=== PATIENT | female | born 1940 | race Caucasian/White ===

== ENCOUNTER 2016-12-23 21:21 | Emergency (ER) | payer MEDICARE, OTHER ==
[~2016-12-23] VITALS: Ht 154.9 cm; Wt 43.1 kg
[~2016-12-23 21:21] MED LIST: ASCO500C14 PO; ASP325TEC PO; CETI10CA PO; DILT360C29 PO; DULO30CA PO; ECHI400C3 PO; FAMO-119 PO; FAMO20TA73 PO; HYOS0.1217 PO; MELA1TAB11 PO; MULT-963 PO; OMEP20TA2 PO; PREG50C PO; SIMVASTATIN; TRAM1TAB7 PO; VENL37.513 PO; VITA1CAP59 PO
--- OUTSIDE RECORDS SUMMARY | 2016-12-23 21:26 | XMS REPORT | Continuity of Care Document ---
Author Author [facility] Organization [facility] Address Unknown Phone Unavailable Care Team Providers Care Gastroenterology Professor Name Role Phone Sukh Moreira PCP [phone] Source Comments Some departments are not documenting in the electronic medical record. If you do not see the information that you expected, contact Release of Information in the Health Information Management department at [phone] for further assistance in locating additional records.[facility] Active Allergies and Adverse Reactions Allergen Noted Date Severity Reactions Comments Pcn 03/11/2013 RASH Sulfa (Sulfonamide 03/11/2013 UNKNOWN Antibiotics) Temazepam 01/01/2016 High SEE COMMENTS pt stated Crazy mood and fitful sleep Valerian 01/01/2016 Low SEE COMMENTS Insomnia Current Medications Prescription Sig. Disp. Refills Start End Date Status Date CALCIUM CARBONATE/VITAMIN Take by mouth. Active D3 (VITAMIN D-3 PO) GLUTATHIONE PO Take by mouth daily. Active nystatin 500,000 unit Take 500,000 Units by Active tablet mouth. 4 tabs 4 times daily MULTIVITAMIN PO Take 1 Tab by mouth Active daily. 5-HYDROXYTRYPTOPHAN Take 2 Tabs by mouth Active (5-HTP PO) daily. PHYTONADIONE (VITAMIN K Take by mouth daily. Active PO) TURMERIC ROOT EXTRACT PO Take 2 Tabs by mouth Active daily. hydroxychloroquine Take 200 mg by mouth Active (PLAQUENIL) 200 mg tablet twice daily. FLUCONAZOLE (BULK) MISC Use 1 Tab as directed Active daily. progesterone, Take 200 mg by mouth Active micronized(+) daily. (PROMETRIUM) 100 mg capsule other medication Take 1 Dose by mouth Active daily. Lumbrokinase CYCLOBENZAPRINE HCL Take by mouth. Active (FLEXERIL PO) ofloxacin(+) (FLOXIN) 0.3 Place 1 Drop into or Active % ophthalmic solution around eye(s) four times daily. lisinopril (PRINIVIL; Take 5 mg by mouth daily. Active ZESTRIL) 5 mg tablet carvedilol (COREG) 3.125 Take 3.125 mg by mouth Active mg tablet twice daily with meals. Active Problems Problem Noted Date Penicillin allergy 03/24/2016 Overview: Skin testing 03/18/16 showed sensitization to amoxicillin with borderline to ampicillin. We did not proceed with a graded challenge as it appears she may still be sensitized to penicillin. - Continue to avoid penicillin products - We can desensitize her to penicillin if needed and we could do this in our office. She would need to stop Coreg and Lisinopril for 48 hours prior to desensitization along with antihistamines for 7 days. Allergy to sulfa antimicrobials 03/24/2016 Overview: She had an unknown reaction to a sulfa antibiotic in the 1969's. She doesn't recall any aspect of the reaction but there were no bullous lesions, desquamation or mucosal surface involvement. She has avoided sulfa antibiotics since that time. - We do not have skin testing for sulfa antibiotics that is validated. She would like to know if she is still allergic to sulfa. We offered her an oral graded challenge which can be arranged at her discretion. She would need to stop Coreg and Lisinopril for 48 hours prior to challenge and antihistamines 7 days prior. Drug allergy 01/06/2016 Overview: PCN - rash developed in approximately 2007, patient was unclear about any other details. Sulfa - patient states she does not recall having a reaction. - We discussed an offered skin testing to PCN today but she could not stay. She will let us know when she is ready to do this. - We may also need to consider a sulfa challenge in the future to rule that out as an allergy. Food intolerance 01/06/2016 Overview: Avoids tomatoes, potatoes , onions, and green peppers due to GI upset. Eggplant may have caused throat swelling on one occasion, now avoiding this as well. - Continue avoidance. We can do skin testing for eggplant at any time to see if she is truly allergic. History of medical problems 09/18/2015 Overview: Her PMHx briefly includes: Nonsustained SVT documented by Reveal LinQ monitor, PAFIB noted 02/2014 during Exercise Stress Testing, CAD s/p Prior PCI/Stent in 1994, per Dr. 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 Hyde with Mild Bilateral Carotid Stenosis by Duplex 02/2014, Hx of Liver Hemangioma S/P Removal during Exploratory LAP, and Fibromyalgia--although recently diagnosed with Lyme's Disease which may have been chronic. She has a [id number] score of 4--age, female, HTN, CAD. 02/2014 During Exercise Stress Echocardiogram Ms. Perera had some self-limited AFIB. Dr. Hyde placed her on Xarelto and Diltiazem and ultimately implanted a Reveal LinQ monitor to better capture any recurrent aSxic AFIB. Apparently she developed severe headaches and as a result of her evaluation both her Xarelto and Diltiazem had been held with no improvement. She apparently had tolerated Diltiazem without significant issue when she was on it just a few months ago. Her Reveal LinQ monitor in late 12/2014 and early 01/2015 captured some brief non-sustained tachycardia prompting EP Consultation. Of note: She recently has been diagnosed with Lyme's Disease. She states her doctor told her that this may have been a chronic infection going on for years. She has generalized fatigue and some myalgias. In fact, she had been diagnosed with Fibromyalgia in the past. 01/30/15 At her Initial EP Conusltation, she stated that she had not had Sxs with her auto-activated tachy events. She also stated that when she had activated the device in the past it had been for irregular heart beats but NOT tachypalpitations. In fact she stated she had never felt Sxs of tachypalpitations. Her device documented SVT. I anticipated she either has AVNRT or ATACH. I offered EPS and RFA, but she preferred medical Tx instead. We initiated her on Diltiazem CD 120 mg daily. I instructed them, if her HR drops below 50 bpm or if she had significant Sxs with HRs in the 50s bpm, to stop the Diltiazem and contact our office. She stated she occasionally had Sxs of LHedness that lasted for seconds. One episode occurred while standing at the sink. Her daughter stated that these episodes began occuring recently and that her mother had been on antibiotics recently for Lyme's Disease. Although infrequent and brief, I asked her to activate her LinQ monitor with Sxs of LHedness. 02/12/15 2/to HRs <50 bpm, Diltiazem was discontinued. Ms. Perera scheduled OV to discuss options for rhythm control to include Tikosyn initiation or PPM implantation. Paroxysmal a-fib (HCC) 01/31/2015 Overview: 03/29/14: LINQ implant 03/22/14: Left Heart Cath, no intervention. 02/22/14: Exercise stress test: No ischemia or artifact. EF 48. Afib w RVR of 163, spontaneous resolved. 12/25/13: 2D echo: Normal LV, EF 50. Mild MR, TR. 03/27/13: Exercise stress test: No ischemia or artifact. EF 50. 04/08/11: Carotid duplex: Mild bilateral nonobstructive disease <40%. 06/04/05: Left heart cath, no intervention. 03/01/05: 2D echo: Normal LV, EF 70%. 05/31/02. Left heart cath, no intervention. 08/06/95: Left heart cath, stent x2 CAD (coronary artery disease) 01/31/2015 HTN (hypertension) 01/31/2015 Hyperlipidemia 01/31/2015 Acute blood loss anemia 04/19/2013 Hemangioma of liver 12/12/1988 Overview: Ms. Perera is a 72 year old woman who has known of having liver hemangiomas at least since 1988. She complained of indigestion, was studied, and found to have multiple liver hemangiomas (I do not have reports of those studies). She was referred to physicians in [place] in November, for their thoughts about management. Her case and her films were reviewed at the [facility], also for thoughts about management. The lesions were felt to be benign hemangiomas and, since she was asymptomatic, no therapy was recommended. A CT of the abdomen, done 02/13/1989, and was reported to show 4 areas of low density: a 1.5 cm area in the tip of the left lobe, a 3 cm area in the posterior inferior right lobe, a 5 cm lesion in the jarek hepatis, and a 4 x 6 cm area in the lateral superior right lobe. A CT of the abdomen was done 12/06/1993 and the 4 x 6 cm lesion had grown to 6 x 8 cm; the other lesions had not changed in size. By 02/09/1997, an abdominal ultrasound measured the large lesion in the right upper lobe to be 9 cm in diameter. An ultrasound done on 01/29/2011 revealed that the large lesion had grown from 10 x 12 x 11 cm on 07/21/2008 to 13.1 x 10.8 x 13.3 cm. This past fall, she developed bouts of esophageal spasm/reflux and her surgeon felt that they might be related to the hemangioma. He did an EGD in August, which showed evidence of mild to moderate reflux esophagitis as well as gastritis. She was started on a PPI, with little improvement. She had a normal swallow study on 01/31/2013. She had a normal HIDA scan on 02/10/2013. A CT scan of the abdomen done 02/16/13 shows the hemangioma being 13.5 cm x 9.5 cm x 12 cm. She gets acute onset of pain right behind her xyphoid that goes to her back. The pain may radiate up to her ears. These symptoms may happen during eating, especially dry foods, but she has also experienced them in the middle of sleeping and during cheondoism. These pains are not related to stress. She does get tightness around her waist when she sits for long periods of time. But she has not noticed any problems leaning over or bending down. Over the last ten years, she has been unable to sleep on her right side. She used to have pains monthly but they are now coming weekly. She has had more eructation. I saw her first on the 11 of March and felt that her abdominal pain was probably related to the hemangioma since the pain started when the lesion grew. She and her family thought it over and decided to have surgery in April. On 04/19/13, she underwent an exploratory laparotomy, intraoperative ultrasound, portal lymph node biopsies, resection of a 12 x 14 cm symptomatic hemangioma of the right lobe, resection of three 2 cm lesions, 2 in the left lobe and 1 in the right lobe, and open cholecystectomy. She had an uneventful post-operative stay and was discharged on the 5th post-operative day. L ast Assessment & Plan: Since discharge, she has recovered well. She notes that she can become exhausted the day after doing too much the day before. She is sleeping well, also during the day. She has not had any of the esophageal attacks since surgery. In the week prior to surgery, she had had four attacks. She feels that she is more comfortable moving around and sleeping in different positions than prior. Social History Tobacco Use Types Packs/Day Years Used Date Never Smoker Smokeless Tobacco: Never Used Alcohol Use Drinks/Week oz/Week Comments No Last Filed Vital Signs Vital Sign Reading Time Taken Blood Pressure 94/62 03/18/2016 3:02 PM CDT Pulse 66 03/18/2016 3:02 PM CDT Temperature 37 C (98.6 F) 03/18/2016 8:09 AM CDT Respiratory Rate 18 03/18/2016 8:09 AM CDT Height 1.549 m (5' 0.98") 03/18/2016 3:02 PM CDT Weight 45.677 kg (100 lb 11.2 03/18/2016 3:02 PM CDT oz) Body Mass Index 19.04 03/18/2016 3:02 PM CDT Oxygen Saturation 100% 05/06/2013 11:29 AM CDT Plan of Care Health Maintenance Due Date Last Done Comments Physical (Comprehensive) 1947 Exam Pertussis Vaccine 1951 Tetanus Vaccine 1957 Colorectal Cancer 1990 Screening Shingles Vaccine 2000 Osteoporosis Screening 2005 Prevnar/Pneumovax (#1) 2005 Influenza Vaccine 07/10/2016 Results from Last 3 Months Not on file
[2016-12-23] MEDS ORDERED: THYR90TA12 PO (21:35)
[2016-12-23] MEDS ORDERED: PRED5DRO17 (21:35)
[2016-12-23] MEDS ORDERED: PROG100C6 (21:35)
[2016-12-23] MEDS ORDERED: AMIT10TA6 (21:35)
[2016-12-23] MEDS ORDERED: ASPI-586 PO (21:35)
[2016-12-23] MEDS ORDERED: LISI-556 (21:35)
[2016-12-23] MEDS ORDERED: CARV3.122 (21:35)
--- NOTE | 2016-12-23 21:50 | ED Fall/Injury ---
General Chief Complaint: Trauma-Non Activation Stated Complaint: FALL/SYNCOPE Nursing Triage Note: pt reports fell while at home this evening. pt reports she was walking across the living room and got dizzy and fell to the floor. pt denies loc. pt denies hitting head or neck pain. pt reports lower back pain rated at a 4. Source: patient, family, RN notes reviewed Exam Limitations: no limitations History of Present Illness Time seen by provider: 21:37 Initial Comments As above and below. Had been sitting on couch c/ legs elevated when she got up to walk into the den where her was when she became dizzy/light headed and fell landing on her back. No LOC. Back to normal now. Low back is a little sore. Location Injury Occurred: home residence Occurred: just prior to arrival Severity: mild (LBP) Injuries/Pain Location: back (low) Context: lightheaded Loss of Consciousness: no loss of consciousness Modifying Factors: Improves With Other (back to baseline now) Associated Symptoms (Fall): Dizziness Lightheadedness Allergies and Home Medications Allergies Coded Allergies: Penicillins (Unverified Allergy, Unknown, 05/17/14) Sulfa (Sulfonamide Antibiotics) (Verified Allergy, Unknown, 07/10/08) Home Medications Amitriptyline HCl 10 Mg Tablet #90 (Reported) Aspirin 81 Mg Tablet.dr 81 MG PO DAILY (Reported) Carvedilol 3.125 Mg Tablet #180 (Reported) Lisinopril 5 Mg Tablet #90 (Reported) Multivitamin 1 Each Tablet 1 EACH PO DAILY (Reported) Prednisolone Acetate 5 Ml Drops.susp #10 (Reported) Progesterone,Micronized 100 Mg Capsule #670 (Reported) Thyroid,Pork 90 Mg Tablet #45 45 MG PO DAILY (Reported) Constitutional: see HPI dizziness : No Musculoskeletal: see HPI back pain (mild) All Other Systems Reviewed Negative Unless Noted: Yes (Negative excepted noted.) Past Ejvflep-Bpoggw-Visilc Hx Patient Social History Alcohol Use: Denies Use Recreational Drug Use: No Smoking Status: Never a Smoker Recent Foreign Travel: No Contact w/Someone Who Travel: No Recent Infectious Disease Expo: No Recent Hopitalizations: Yes Immunizations Up To Date Date of Pneumonia Vaccine: May 23, 2009 Surgeries HX Surgeries: Yes (HEMORRHOIDECTOMY,CYST, HEMANGIOMA REMOVED FROM LIVER) Surgeries: Coronary Stent, Eye Surgery Respiratory Hx Respiratory Disorders: No Cardiovascular Hx Cardiac Disorders: Yes (lync monitor/STENTS/A-FIB) Cardiac Disorders: Atrial Fibrillation, Coronary Artery Disease Neurological Hx Neurological Disorders: No Reproductive System Hx Reproductive Disorders: No Genitourinary Hx Genitourinary Disorders: Yes Gastrointestinal Hx Gastrointestinal Disorders: Yes (HEMANGIOMAS ON LIVER) Gastrointestinal Disorders: Gastroesophageal Reflux, Liver Disease/Jaundice, Chronic Constipation Musculoskeletal Hx Musculoskeletal Disorders: Yes (SPONDYOLITIS/FIBROMYALGIA) Musculoskeletal Disorders: Fibromyalgia Endocrine Hx Endocrine Disorders: Yes (DIET CONTROLLED DIABETES) Endocrine Disorders: Diabetes, Non-Insulin dep HEENT HX ENT Disorders: No Cancer Hx Cancer: No Psychosocial Hx Psychiatric Problems: Yes Behavioral Health Disorders: Depression Blood Transfusions Hx Blood Disorders: No Physical Exam Vital Signs Vital Sign - Last 12Hours 12/23/16 21:23 Temp 98.7 Pulse 72 Resp 18 B/P 138/71 Pulse Ox 97 Capillary Refill : Less Than 3 Seconds General Appearance: WD/WN no apparent distress HEENT: PERRL/EOMI normal ENT inspection TMs normal pharynx normal Neck: normal inspection Cardiovascular: regular rate, rhythm Respiratory: normal breath sounds no respiratory distress Gastrointestinal: non tender soft Rectal: deferred Extremities: normal inspection Neurologic/Psychiatric: no motor/sensory deficits alert oriented x 3 Skin: warm/dry Willie Coma Score Best Eye Response: (4) Open Spontaneously Best Verbal Response: (5) Oriented Best Motor Response: (6) Obeys Commands [place] Total: 15 Progress/Results/Core Measures Results/Orders Lab Results Laboratory Tests Test 12/23/16 21:50 12/23/16 22:48 Range/Units Alanine Aminotransferase (ALT/SGPT) 22 0-55 U/L Albumin 3.8 3.2-4.5 G/DL Alkaline Phosphatase 50 40-136 U/L Anion Gap 10 5-14 MMOL/L Aspartate Amino Transf (AST/SGOT) 23 5-34 U/L B-Type Natriuretic Peptide 35.9 <100.0 PG/ML BUN/Creatinine Ratio 26 Basophils # (Auto) 0.0 0.0-0.1 10^3/uL Basophils (%) (Auto) 1 0-10 % Blood Urea Nitrogen 19 H 7-18 MG/DL Calcium Level 9.1 8.5-10.1 MG/DL Carbon Dioxide Level 24 21-32 MMOL/L Chloride Level 105 98-107 MMOL/L Creatinine 0.74 0.60-1.30 MG/DL Eosinophils # (Auto) 0.4 H 0.0-0.3 10^3/uL Eosinophils (%) (Auto) 6 0-10 % Estimat Glomerular Filtration Rate > 60 Glucose Level 96 70-105 MG/DL Hematocrit 37 35-52 % Hemoglobin 12.4 11.5-16.0 G/DL Lymphocytes # (Auto) 1.1 1.0-4.0 X 10^3 Lymphocytes (%) (Auto) 18 12-44 % Magnesium Level 2.2 1.8-2.4 MG/DL Mean Corpuscular Hemoglobin 30 25-34 PG Mean Corpuscular Hemoglobin Concent 33 32-36 G/DL Mean Corpuscular Volume 90 80-99 FL Mean Platelet Volume 10.0 7.4-10.4 FL Monocytes # (Auto) 0.9 0.0-1.0 X 10^3 Monocytes (%) (Auto) 15 H 0-12 % Neutrophils # (Auto) 3.8 1.8-7.8 X 10^3 Neutrophils (%) (Auto) 62 42-75 % Platelet Count 226 130-400 10^3/uL Potassium Level 4.0 3.6-5.0 MMOL/L Red Blood Count 4.14 L 4.35-5.85 10^6/uL Red Cell Distribution Width 14.0 10.0-14.5 % Sodium Level 139 135-145 MMOL/L Thyroid Stimulating Hormone (TSH) 0.80 0.35-4.94 UIU/ML Total Bilirubin 0.3 0.1-1.0 MG/DL Total Protein 6.1 L 6.4-8.2 G/DL Troponin I < 0.30 <0.30 NG/ML White Blood Count 6.2 4.3-11.0 10^3/uL Urine Bacteria FEW H /HPF Urine Bilirubin NEGATIVE NEGATIVE Urine Casts NONE /LPF Urine Clarity CLEAR Urine Color YELLOW Urine Crystals NONE /LPF Urine Culture Indicated NO Urine Glucose (UA) NEGATIVE NEGATIVE Urine Ketones NEGATIVE NEGATIVE Urine Leukocyte Esterase 1+ H NEGATIVE Urine Mucus NEGATIVE /LPF Urine Nitrite NEGATIVE NEGATIVE Urine Protein NEGATIVE NEGATIVE Urine RBC NONE /HPF Urine RBC (Auto) NEGATIVE NEGATIVE Urine Specific [place] 1.010 L 1.016-1.022 Urine Urobilinogen NORMAL NORMAL MG/DL Urine WBC 2-5 /HPF Urine pH 7 5-9 My Orders Orders-SESAR BRIONES DO Ekg Tracing (12/23/16 21:43) BNP (12/23/16 21:43) Cbc With Automated Diff (12/23/16 21:43) Comprehensive Metabolic Panel (12/23/16 21:43) Magnesium (12/23/16 21:43) Troponin I (12/23/16 21:43) Ua Culture If Indicated (12/23/16 21:43) Thyroid Stimulating Hormone (12/23/16 21:46) Orthostatic Vital Signs (12/23/16 21:46) Chest 1 View, Ap/Pa Only (12/23/16 21:47) Vital Signs/I&O Vital Sign - Last 12Hours 12/23/16 12/23/16 12/23/16 12/23/16 21:23 21:46 22:46 23:18 Temp 98.7 98.7 98.7 Pulse 72 72 72 63 74 80 Resp 18 18 16 B/P 138/71 138/71 Pulse Ox 97 97 96 Blood Pressure Mean: 93 Progress Note : Progress Note Patient declined imaging of her low back @ this time. Dr. Moreira did call and check in on the patient. ECG Initial ECG Impression Date: Dec 23, 2016 Initial ECG Impression Time: 21:45 Initial ECG Rate: 73 Initial ECG Rhythm: Normal Sinus Initial ECG Impression: Nonspecific Changes (IVCD; anterior infarct, ? age) Departure Impression Impression: Primary Impression: Postural dizziness Additional Impression: Fall Disposition: 01 HOME, SELF-CARE Condition: Improved Departure-Patient Inst. Decision time for Depature: 23:11 Referrals: BEVERLY MOREIRA MD (PCP/Family) Primary Care Physician Patient Instructions: Vertigo (a Type of Dizziness) (DC) SESAR BRIONES DO Dec 23, 2016 21:50
[2016-12-23 22:03] LABS: BASOPHILS % (AUTO) 1 % (0-10); EOSINOPHILS # (AUTO) 0.4 10^3/uL (0.0-0.3); EOSINOPHILS % (AUTO) 6 % (0-10); LYMPHOCYTES # (AUTO) 1.1 X 10^3 (1.0-4.0); LYMPHOCYTES % (AUTO) 18 % (12-44); MEAN CORPUSCULAR HEMOGLOBIN 30 PG (25-34); MEAN CORPUSCULAR HGB CONC 33 G/DL (32-36); MEAN CORPUSCULAR VOLUME 90 FL (80-99); MONOCYTES # (AUTO) 0.9 X 10^3 (0.0-1.0); MONOCYTES % (AUTO) 15 % (0-12); NEUTROPHILS # (AUTO) 3.8 X 10^3 (1.8-7.8); NEUTROPHILS % (AUTO) 62 % (42-75); PLATELET COUNT 226 10^3/uL (130-400); RED BLOOD COUNT 4.14 10^6/uL (4.35-5.85); WHITE BLOOD COUNT 6.2 10^3/uL (4.3-11.0)
[2016-12-23 22:20] LABS: ALANINE AMINOTRANSFERASE 22 U/L (0-55); ALBUMIN 3.8 G/DL (3.2-4.5); ANION GAP 10 MMOL/L (5-14); ASPARTATE AMINO TRANSFERASE 23 U/L (5-34); BILIRUBIN,TOTAL 0.3 MG/DL (0.1-1.0); BLOOD UREA NITROGEN 19 MG/DL (7-18); BUN/CREATININE RATIO 26; CALCIUM 9.1 MG/DL (8.5-10.1); CARBON DIOXIDE 24 MMOL/L (21-32); CHLORIDE 105 MMOL/L (98-107); CREATININE SERUM 0.74 MG/DL (0.60-1.30); GFR ESTIMATED > 60; GLUCOSE 96 MG/DL (70-105); MAGNESIUM 2.2 MG/DL (1.8-2.4); SODIUM 139 MMOL/L (135-145); TOTAL PROTEIN 6.1 G/DL (6.4-8.2)
[2016-12-23 22:40] LABS: TROPONIN I < 0.30 NG/ML (<0.30)
[2016-12-23 22:58] LABS: BILIRUBIN,URINE NEGATIVE (NEGATIVE); KETONES,URINE NEGATIVE (NEGATIVE); LEUKOCYTE ESTERASE ,URINE 1+ (NEGATIVE); NITRITE,URINE NEGATIVE (NEGATIVE); PH,URINE 7 (5-9); PROTEIN,URINE NEGATIVE (NEGATIVE); UROBILINOGEN,URINE NORMAL (NORMAL)
[2016-12-23 23:18] VITALS: BP 145/78
--- NOTE | 2016-12-24 07:49 | Diagnostic Imaging Report ---
INDICATION: Dizziness with fall. Comparison with 03/19/2016. FINDINGS: The lungs are well aerated and clear. Heart is upper limits of normal. No evidence of pulmonary edema. No hilar adenopathy. No pneumothorax or pleural effusions. 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 IMPRESSION: No acute changes when compared with previous exam. Dictated by: Dictated on workstation # [id number]
== END 2016-12-23 23:18 | disposition home or self-care (01) ==
LOC: EDUNIT# 21:21 → ER 21:22
DX: R42 Dizziness and giddiness (principal); E11.9 Type 2 diabetes mellitus without complications; I48.2 Chronic atrial fibrillation; I25.10 Atherosclerotic heart disease of native coronary artery without angina pectoris; Z79.82 Long term (current) use of aspirin; Z79.899 Other long term (current) drug therapy
CPT/HCPCS: 36415; 71010; 80053; 81000; 83735; 83880; 84443; 84484; 85025; 93005

== ENCOUNTER → 2017-03-27 | Outpatient (CLI) | payer MEDICARE, OTHER ==
[~2017-03-27] MED LIST changes: +AMIT10TA6; +ASPI-586 PO; +CARV3.122; +LISI-556; +PRED5DRO17; +PROG100C6; +THYR90TA12 PO
== END ==
LOC: RT 08:07
PROVIDERS: ATTEND Family Medicine
DX: R40.4 Transient alteration of awareness (principal)
CPT/HCPCS: 95819

== ENCOUNTER 2017-10-14 11:51 | Day surgery (SDC) | payer MEDICARE, OTHER ==
[2017-10-14] VITALS (12 sets, daily range): BP systolic 134–170; BP diastolic 76–115
[~2017-10-14] VITALS: Ht 154.9 cm; Wt 47.6 kg
[~2017-10-14 11:51] MED LIST changes: -AMIT10TA6; +AMIT10TA6 PO; -CARV3.122; +CARV3.122 PO; -PROG100C6; +PROG100C6 PO
[2017-10-14] MEDS ORDERED: LIDOCAINE 1% INJ 50 ML (XYLOCAINE) VIAL ONE (12:01)
[2017-10-14] MEDS ORDERED: HEParin (CATH LAB) 2,000 ML IV ONE (12:01)
[2017-10-14] MEDS ORDERED: NS IV 1000 ML 1,000 ML ONE (12:01)
--- OUTSIDE RECORDS SUMMARY | 2017-10-14 12:04 | XMS REPORT | Clinical Summary ---
Author Author [facility] Organization [facility] Address Unknown Phone Unavailable Care Team Providers Care Mangle Catcher Name Role Phone PCP Unavailable Source Comments Some departments are not documenting in the electronic medical record. If you do not see the information that you expected, contact Release of Information in the Health Information Management department at [phone] for further assistance in locating additional records.[facility] Allergies Active Allergy Reactions Severity Noted Date Comments Temazepam SEE COMMENTS High 01/01/2016 pt stated Crazy mood and fitful sleep Penicillins RASH 03/11/2013 Sulfa (Sulfonamide UNKNOWN 03/11/2013 Antibiotics) Valerian SEE COMMENTS Low 01/01/2016 Insomnia Current Medications Prescription Sig. Disp. Refills [...] mouth daily. Active PO) TURMERIC ROOT EXTRACT Take 2 Tabs by mouth Active POIndications: PVCs daily. (premature ventricular contractions), Palpitations, Paroxysmal a-fib (HCC), Coronary artery disease involving [place] coronary artery of [place] heart without angina pectoris hydroxychloroquine Take 200 mg by mouth Active (PLAQUENIL) 200 mg twice daily. tabletIndications: PVCs (premature ventricular contractions), Palpitations, Paroxysmal a-fib (HCC), Coronary artery disease involving [place] coronary artery of [place] heart without angina pectoris FLUCONAZOLE (BULK) Use 1 Tab as directed Active MISCIndications: PVCs daily. (premature ventricular contractions), Palpitations, Paroxysmal a-fib (HCC), Coronary artery disease involving [place] coronary artery of [place] heart without angina pectoris progesterone, Take 200 mg by mouth Active micronized(+) daily. (PROMETRIUM) 100 mg capsuleIndications: PVCs (premature ventricular contractions), Palpitations, Paroxysmal a-fib (HCC), Coronary artery disease involving [place] coronary artery of [place] heart without angina pectoris other Take 1 Dose by mouth Active medicationIndications: daily. Lumbrokinase PVCs (premature ventricular contractions), Palpitations, Paroxysmal a-fib (HCC), Coronary artery disease involving [place] coronary artery of [place] heart without angina pectoris CYCLOBENZAPRINE HCL Take by mouth. Active (FLEXERIL [...] reaction to a sulfa antibiotic in the 1970's. She doesn't recall any aspect of the [...] may have been chronic. She has a [id number] score of 4--age, female, HTN, CAD. 02/2014 [...] studies). She was referred to physicians in [place] in November, for their thoughts about management. Her case and her films were reviewed at the [facility], also for thoughts about management. The lesions [...] in the middle of sleeping and during holiness. These pains are not related to stress. [...] and sleeping in different positions than prior. Family History Medical History Relation Name Comments Cancer Brother Coronary Artery Disease Brother Kidney Disease Brother Coronary Artery Disease Father Diabetes Father Stroke Father Coronary Artery Disease Mother Diabetes Mother Relation Name Status Comments Brother Alive Heart disease Brother Appendiceal CA to lungs Brother Father OR (Age 70) Mother Complications of DM (Age 82) Sister Alive Social History Tobacco Use Types Packs/Day Years Used Date Never Smoker Smokeless Tobacco: Never Used Alcohol Use Drinks/Week oz/Week Comments No Sex Assigned at Date Recorded Not on file Last Filed Vital Signs Vital Sign Reading Time Taken Blood Pressure 94/62 03/18/2016 3:02 PM CDT Pulse 66 03/18/2016 3:02 PM CDT Temperature 37 C (98.6 F) 03/18/2016 8:09 AM CDT Respiratory Rate 18 03/18/2016 8:09 AM CDT Oxygen Saturation 100% 05/06/2013 11:29 AM CDT Inhaled Oxygen - - Concentration Weight 45.7 kg (100 lb 11.2 oz) 03/18/2016 3:02 PM CDT Height 154.9 cm (5' 0.98") 03/18/2016 3:02 PM CDT Body Mass Index 19.04 03/18/2016 3:02 PM CDT Plan of Treatment Health Maintenance Due Date Last Done Comments PHYSICAL (COMPREHENSIVE) 1947 EXAM PERTUSSIS VACCINE 1951 TETANUS VACCINE 1957 SHINGLES VACCINE 2000 OSTEOPOROSIS SCREENING 2005 PREVNAR/PNEUMOVAX (#1) 2005 INFLUENZA VACCINE 06/09/2017 Results Not on filefrom Last 3 Months
[2017-10-14] MEDS ORDERED: NS IV 1000 ML 1,000 ML IV SCH ×2 (12:15→14:07)
[2017-10-14] MEDS ORDERED: INFLUENZA TRIvalent 2017-2018 0.5 ML/45 MCG SYR IM ONE (12:30)
[2017-10-14 12:31] LABS: BILIRUBIN,URINE NEGATIVE (NEGATIVE); KETONES,URINE NEGATIVE (NEGATIVE); LEUKOCYTE ESTERASE ,URINE NEGATIVE (NEGATIVE); MEAN PLATELET VOLUME 10.1 FL (7.4-10.4); NITRITE,URINE NEGATIVE (NEGATIVE); PH,URINE 8 (5-9); PROTEIN,URINE NEGATIVE (NEGATIVE); RED BLOOD COUNT 4.53 10^6/uL (4.35-5.85); RED CELL DISTRIBUTION WIDTH 13.7 % (10.0-14.5); UROBILINOGEN,URINE NORMAL (NORMAL); WHITE BLOOD COUNT 5.4 10^3/uL (4.3-11.0)
[2017-10-14 12:39] LABS: SQUAMOUS EPITHELIAL CELL,UR RARE /HPF; WBC,URINE RARE /HPF
[2017-10-14 12:41] LABS: INR 0.9 (0.8-1.4); PROTHROMBIN TIME PATIENT 12.1 SEC (12.2-14.7)
[2017-10-14] MEDS ORDERED: fentaNYL INJECTION 100 MCG/2 ML AMP ONE (12:41)
[2017-10-14] MEDS ORDERED: MIDAZOLAM 2 MG/2 ML (VERSED) VIAL ONE (12:41)
[2017-10-14] MEDS ORDERED: THYR90TA PO (12:42)
[2017-10-14] MEDS ORDERED: ASPI325T32 PO (12:42)
[2017-10-14] MEDS ORDERED: LEVO1CAP8 PO (12:42)
[2017-10-14] MEDS ORDERED: BUTA1TAB9 PO (12:42)
[2017-10-14] MEDS ORDERED: OFLO5DRO3 OU (12:43)
--- NOTE | 2017-10-14 12:43 | Diagnostic Imaging Report ---
EXAMINATION: Portable upright radiograph of the chest. INDICATION: Chest pain. FINDINGS: The lungs demonstrate no focal infiltrate. Benign-appearing calcifications projecting over the right lung and breast area are seen. The heart size is normal. No effusion or pneumothorax. The mediastinum and alexsandra appear unremarkable. A alarm security or surveillance monitor electronic device projecting over the left hemithorax is seen. Surgical clips projecting over the lower right side of the thorax are noted. IMPRESSION: No acute process. Dictated by: Dictated on workstation # [id number]
[2017-10-14 12:49] LABS: ALANINE AMINOTRANSFERASE 17 U/L (0-55); ALBUMIN 4.2 GM/DL (3.2-4.5); ANION GAP 11 MMOL/L (5-14); ASPARTATE AMINO TRANSFERASE 21 U/L (5-34); BILIRUBIN,TOTAL 0.5 MG/DL (0.1-1.0); BLOOD UREA NITROGEN 13 MG/DL (7-18); BUN/CREATININE RATIO 18; CALCIUM 9.2 MG/DL (8.5-10.1); CARBON DIOXIDE 26 MMOL/L (21-32); CHLORIDE 106 MMOL/L (98-107); CHOLESTEROL 241 MG/DL (< 200); CREATININE SERUM 0.74 MG/DL (0.60-1.30); DIRECT LDL 136 MG/DL (1-129); GFR ESTIMATED > 60; GLUCOSE 86 MG/DL (70-105); POTASSIUM 3.7 MMOL/L (3.6-5.0); SODIUM 143 MMOL/L (135-145); TOTAL PROTEIN 7.3 GM/DL (6.4-8.2); TRIGLYCERIDES 91 MG/DL (<150); VLDL CHOLESTEROL 18 MG/DL (5-40)
[2017-10-14] MEDS ORDERED: HEParin 1000 UNIT/ML (10ML VIAL) FOR BOLUS ONE (13:27)
[2017-10-14] MEDS ORDERED: VERAPAMIL 5 MG/2 ML (CALAN) VIAL IV ONE (13:27)
[2017-10-14] MEDS ORDERED: NITROGLYCERIN DRIP 25 MG/D5W 250 ML IV ONE (13:27)
[2017-10-14] MEDS ORDERED: ATOR10TA PO (14:09)
--- NOTE | 2017-10-14 14:10 | Discharge Inst-Post CATH ---
Discharge Inst-CATH Post Cardiac Cath D/C Inst Follow Up/Plan Appointment with Dr. Hyde's office in 2-4 weeks CARDIAC CATH DISCHARGE INSTRUCTIONS *Hold Metformin for 48 hours post heart cath. ACTIVITY * Go Home directly and rest. * Limit activity of the leg (or wrist if it was used) for 7 days including aerobics, swimming, jogging, bicycling, etc. * Restrict stair-climbing for 7 days if possible, if not, climb up with your non -cath leg, then bring together on the same step. * Avoid lifting, pushing, pulling or excessive movement of the affected extremity for 7 days. * Customary sexual activity may be resumed after 2 days-use caution not to use a position that strains or causes pain to the affected extremity. * No driving for 24 hours. * NO SMOKING. * Avoid straining for bowel movements for 7 days. * Gentle walking on level ground is allowed. * Returning to work will depend on the type of procedure and the results. Your doctor will discuss this with you. CALL YOUR DOCTOR FOR ANY OF THE FOLLOWING: *If bleeding from the puncture site occurs- Apply gentle pressure to site with clean cloth and call your doctor or EMS. * If a knot or lump forms under the skin, increases in size, or causes pain. * If bruising appears to be worsening or moving further down your leg instead of disappearing. * Temperature above 101 F. CARE OF YOUR GROIN INCISION; * Bruising or purple discoloration of the skin near the puncture site is common. * You may shower only, no bathtub bathing for 5 days. Be careful to avoid slipping as your leg may feel stiff. * If a closure device was used on your femoral artery, please see the attached guide regarding care of the device and your leg. * REMOVE the dressing from your groin the next day after your procedure in the shower. CARE OF YOUR WRIST INCISION; * Bruising or purple discoloration of the skin near the puncture site is common. * You may shower. * DO NOT submerge wrist. * Remove dressing in 24 hours. ADAL HYDE MD Oct 14, 2017 14:10
--- NOTE | 2017-10-14 15:04 | Cardiac Cath Report ---
Cardiac Cath Report Physician (s)/Pipe Stem Sawyer (s) Physician ADAL ANDUJAR MD Pre-Procedure Diagnosis Pre-Procedure Diagnosis: coronary artery disease Post-Procedure Note Procedure Start Date: Oct 14, 2017 Name of Procedure: Left heart catheterization, left ventriculogram, [address]189 Findings/Procedure Note PROCEDURE NOTE: After explaining the procedure to the patient, all pros and cons were explained, all questions were answered. The patient signed the consent and then she was placed on the cardiac catheterization laboratory. The patient was placed on the cardiac catheterization laboratory. Wrist was prepped SL fashion local anesthesia was used. Sheath placed in the radial artery. Nakita catheter was used to access the right and left coronary system, advanced to the left ventricular cavity Left ventriculogram was done At the end of the procedure the sheath was removed. Closure device was used FINDINGS: Hemodynamics LV 127/8 end-diastolic pressure of 8 Aorta 133/72 mean of 98 ANATOMY: Left Main is free of obstructive disease Left Anterior Descending has mild disease nonobstructive disease Left Circumflex has a patent stent proximally with mild disease distally nonobstructive disease Ramus intermedius has moderate disease at its ostium, nonobstructive disease Right Coronory Artery is tortuous artery with mild diseaseobstructive disease LV Gram is normal in size with normal contractility, estimated ejection fraction 60 percent CONCLUSION: 1. Tortuous right coronary artery with mild disease nonobstructive disease 2. Patent stent in the proximal circumflex artery with mild disease distally nonobstructive disease 3. Mild to moderate disease at the ostium of the ramus intermedius otherwise nonobstructive disease 4. Normal left ventricular size and systolic function estimated ejection fraction 60 percent DISCUSSION AND RECOMMENDATION: Continue with risk factors modification, no intervention is recommended Anesthesia Type: Conscious Sedation Estimated blood loss (mL): 10 ml Contrast Amount: 50 ML Total Radiation Dose: 91 mGy Post-Procedure Diagnosis Post-operative diagnosis: Chest pain nonspecific etiology Coronary artery disease Hyperlipidemia Hypertension ADAL ANDUJAR MD Oct 14, 2017 15:04
== END 2017-10-14 18:40 | disposition home or self-care (01) ==
LOC: CATH 11:51 → ICU 14:20 → CATH 18:40
PROVIDERS: ATTEND Internal Medicine Cardiovascular Disease
DX: I25.10 Atherosclerotic heart disease of native coronary artery without angina pectoris (principal); I11.0 Hypertensive heart disease with heart failure; I50.22 Chronic systolic (congestive) heart failure; I44.7 Left bundle-branch block, unspecified; E78.5 Hyperlipidemia, unspecified; I48.0 Paroxysmal atrial fibrillation; I34.1 Nonrheumatic mitral (valve) prolapse; M79.7 Fibromyalgia; Z79.01 Long term (current) use of anticoagulants; Z79.82 Long term (current) use of aspirin; Z79.899 Other long term (current) drug therapy; Z95.5 Presence of coronary angioplasty implant and graft
CPT/HCPCS: 36415; 71010; 80053; 80061; 81000; 85027; 85610; 85730; 87081; 93458

== ENCOUNTER 2018-06-22 10:04 | Outpatient (CLI) | payer MEDICARE, OTHER ==
[~2018-06-22] VITALS: Ht 154.9 cm; Wt 47.6 kg
[~2018-06-22 10:04] MED LIST changes: +ASPI325T32 PO; +ATOR10TA PO; +BUTA1TAB9 PO; +LEVO1CAP8 PO; +OFLO5DRO3 OU; +THYR90TA PO
[2018-06-22] MEDS ORDERED: ASPI-999 PO (10:34)
[2018-06-22] MEDS ORDERED: THYR60TA2 PO (10:34)
[2018-06-23] MEDS ORDERED: PANT40TA2 PO (14:03)
== END 2018-06-22 10:38 | disposition home or self-care (01) ==
LOC: PREOP 10:04
PROVIDERS: ATTEND Surgery
DX: Z01.818 Encounter for other preprocedural examination (principal)

== ENCOUNTER 2018-06-23 10:46 | Day surgery (SDC) | payer MEDICARE, OTHER ==
[~2018-06-23] VITALS: Ht 154.9 cm; Wt 47.6 kg
[~2018-06-23 10:46] MED LIST changes: +ASPI-999 PO; +THYR60TA2 PO
[2018-06-23] MEDS ORDERED: NS IV 500 ML 500 ML IV PRN (10:54)
[2018-06-23 10:55] VITALS: BP 142/86
[2018-06-23] MEDS ORDERED: NS IV 500 ML 500 ML ONE (10:58)
[2018-06-23] MEDS ORDERED: LIDOCAINE JELLY 2% (XYLOCAINE) 5 ML TUBE MM PRN (11:00)
[2018-06-23] MEDS ORDERED: HURRICAINE EXT TUBE (BENZOCAINE) XX PRN (11:00)
--- OUTSIDE RECORDS SUMMARY | 2018-06-23 11:05 | XMS REPORT | Clinical Summary ---
Author Author [facility] Organization [facility] Address Unknown Phone Unavailable Care Team Providers Care Vender Name Role Phone Dayton Guerrero MD Unavailable Mychart, Generic Provider Unavailable Unavailable Ember Kerr DO Unavailable Kailee Moreira MD PCP Source Comments Some departments are not documenting in the electronic medical record. If you do not see the information that you expected, contact Release of Information in the Health Information Management department at [phone] for further assistance in locating additional records.[facility] Allergies Active Allergy Reactions Severity Noted Date Comments Penicillins RASH 03/11/2013 Sulfa (Sulfonamide UNKNOWN 03/11/2013 Antibiotics) Temazepam SEE COMMENTS High 01/01/2016 pt stated Crazy mood and fitful sleep Valerian SEE COMMENTS Low 01/01/2016 Insomnia Current [...] PVCs daily. (premature ventricular contractions), Palpitations, Paroxysmal A-fib (HCC), Coronary artery disease involving enterprise coronary artery of enterprise heart without angina pectoris hydroxychloroquine Take 200 mg by mouth Active (PLAQUENIL) 200 mg twice daily. tabletIndications: PVCs (premature ventricular contractions), Palpitations, Paroxysmal A-fib (HCC), Coronary artery disease involving enterprise coronary artery of enterprise heart without angina pectoris FLUCONAZOLE (BULK) Use 1 Tab as directed Active MISCIndications: PVCs daily. (premature ventricular contractions), Palpitations, Paroxysmal A-fib (HCC), Coronary artery disease involving enterprise coronary artery of enterprise heart without angina pectoris progesterone, Take 200 mg by mouth Active micronized(+) daily. (PROMETRIUM) 100 mg capsuleIndications: PVCs (premature ventricular contractions), Palpitations, Paroxysmal A-fib (HCC), Coronary artery disease involving enterprise coronary artery of enterprise heart without angina pectoris other Take 1 Dose by mouth Active medicationIndications: daily. Lumbrokinase PVCs (premature ventricular contractions), Palpitations, Paroxysmal A-fib (HCC), Coronary artery disease involving enterprise coronary artery of enterprise heart without angina pectoris CYCLOBENZAPRINE HCL Take [...] may have been chronic. She has a [id number] score of 4--age, female, HTN, CAD. 02/2014 [...] include Tikosyn initiation or PPM implantation. Paroxysmal A-fib (HCC) 01/31/2015 Overview: 03/29/14: LINQ implant 03/22/14: [...] studies). She was referred to physicians in [place] in November, for their thoughts about management. Her case and her films were reviewed at the [facility], also for thoughts about management. The lesions [...] in the middle of sleeping and during caodaism. These pains are not related to stress. [...] Brother Appendiceal CA to lungs Brother Father [place] (Age 70) Mother Complications of DM (Age [...] PERTUSSIS VACCINE 1951 TETANUS VACCINE 1957 SHINGLES RECOMBINANT 1990 VACCINE (1 of 2) OSTEOPOROSIS SCREENING 2005 PNEUMONIA (PCV13/PPSV23) 2005 VACCINES (1 of 2 - PCV13) INFLUENZA VACCINE 08/09/2018 Results Not on filefrom Last 3 Months
--- OUTSIDE RECORDS SUMMARY | 2018-06-23 11:07 | XMS REPORT | Continuity of Care Document ---
Author Author [facility] Organization [facility] Address Unknown Phone Unavailable Allergies Active Description Code Type Severity Reaction Onset Reported/Identified Relationship to Patient Clinical Status Yes Sulfa (Sulfonamide Antibiotics) [id number] Drug Allergy Unknown N/A 2007 Yes Penicillins [id number] Drug Allergy Unknown N/A 05/17/2014 Medications There is no data. Problems Date Dx Coded Attending Type Code Diagnosis Diagnosed By 10/08/1006 BEVERLY MCLAUGHLIN MD Ot R19.7 DIARRHEA, UNSPECIFIED 05/23/2011 Ot 562.10 DIVERTICULOSIS COLON (W/O MENT OF HEMORR 05/23/2011 Ot V16.0 FAMILY HX-GI MALIGNANCY 08/30/2012 Ot 414.01 CORONARY ATHEROSCLEROSIS OF [place] CORON 08/30/2012 Ot 530.81 ESOPHAGEAL REFLUX 08/30/2012 Ot 535.50 UNSP GASTRITIS GASTRODUODENITIS W/O ME 08/30/2012 Ot V58.66 LONG-TERM ( CURRENT) USE OF ASPIRIN 08/30/2012 Ot V58.69 OTH MED,LT, CURRENT USE 03/22/2014 ADAL ANDUJAR MD Ot 272.4 HYPERLIPIDEMIA NEC/NOS 03/22/2014 ADAL ANDUJAR MD Ot 401.9 HYPERTENSION NOS 03/22/2014 ADAL ANDUJAR MD Ot 414.01 CORONARY ATHEROSCLEROSIS OF [place] CORON 03/22/2014 ADAL ANDUJAR MD Ot 427.31 ATRIAL FIBRILLATION 03/22/2014 ADAL ANDUJAR MD Ot 729.1 MYALGIA AND MYOSITIS NOS 03/22/2014 ADAL ANDUJAR MD Ot V45.82 PERCUTANEOUS TRANSLUM CORON ANGIOPLASTY 03/22/2014 ADAL ANDUJAR MD Ot V58.69 OTH MED,LT,CURRENT USE 04/28/2014 JASMYN BARNES MD Ot 250.00 DIAB SANCHEZ WO COMPL, TYPE II OR UNSPEC TY 04/28/2014 JASMYN BARNES MD Ot 311 DEPRESSIVE DISORDER NEC 04/28/2014 JASMYN BARNES MD Ot 414.01 CORONARY ATHEROSCLEROSIS OF [place] CORON 04/28/2014 JASMYN BARNES MD Ot 426.3 LEFT BB BLOCK NEC 04/28/2014 JASMYN BARNES MD Ot 427.31 ATRIAL FIBRILLATION 04/28/2014 JASMYN BARNES MD Ot 729.1 MYALGIA AND MYOSITIS NOS 04/28/2014 JASMYN BARNES MD Ot 786.05 SHORTNESS OF BREATH 04/28/2014 JASMYN BARNES MD Ot 786.50 CHEST PAIN NOS 04/28/2014 JASMYN BARNES MD Ot V45.82 PERCUTANEOUS TRANSLUM CORON ANGIOPLASTY 04/28/2014 JASMYN BARNES MD Ot V58.66 LONG-TERM (CURRENT) USE OF ASPIRIN 04/28/2014 JASMYN BARNES MD, Ot V58.69 OTH MED,LT,CURRENT USE 05/17/2014 DAREK MEJIA MD Ot 455.0 INT HEMORRHOID W/O COMPL 05/17/2014 DAREK MEJIA MD Ot 455.3 EXT HEMORRHOID W/O COMPL 05/17/2014 DAREK MEJIA MD Ot 530.11 REFLUX ESOPHAGITIS 05/17/2014 DAREK MEJIA MD Ot 535.50 UNSP GASTRITIS GASTRODUODENITIS W/O ME 05/17/2014 DAREK MEJIA MD Ot 553.3 DIAPHRAGMATIC HERNIA 01/03/2015 KI PAZ Ot 228.04 01/03/2015 KI PAZ Ot 272.4 01/03/2015 KI PAZ Ot 401.9 01/03/2015 KI PAZ Ot 414.00 01/03/2015 KI PAZ Ot 424.0 01/03/2015 KI PAZ Ot 426.3 01/03/2015 KI PAZ Ot 429.9 01/03/2015 KI PAZ Ot 530.81 01/03/2015 KI PAZ Ot 729.1 01/03/2015 KI PAZ Ot 785.1 01/03/2015 KI PAZ Ot 786.50 01/29/2015 Ot 728.87 01/29/2015 Ot 729.5 01/29/2015 Ot 733.00 01/29/2015 Ot V76.12 02/09/2015 Ot 344.60 02/09/2015 Ot 721.3 02/09/2015 Ot 722.10 02/09/2015 Ot 729.5 02/09/2015 Ot 733.00 02/16/2015 Ot 728.87 02/16/2015 Ot 729.5 02/16/2015 Ot 733.00 02/16/2015 Ot V76.12 04/11/2015 Ot 728.87 04/11/2015 Ot 729.5 04/11/2015 Ot 733.00 04/11/2015 Ot V76.12 04/11/2015 Ot 344.60 04/11/2015 Ot 721.3 04/11/2015 Ot 722.10 04/11/2015 Ot 729.5 04/11/2015 Ot 733.00 04/18/2015 YESY HENDRIX PACKAGE CLERK Ot 724.8 05/04/2015 YESY HENDRIX PACKAGE CLERK Ot 724.8 05/06/2015 YESY HENDRIX PACKAGE CLERK Ot 724.8 11/12/2015 YESY HENDRIX PACKAGE CLERK Ot 724.8 01/01/2016 LISSETTE BULLOCK, BEVERLY A Ot D49.2 01/10/2016 MICHEL BULLOCK, EFRA Luz Ot E78.2 01/10/2016 MICHEL BULLOCK, EFRA Luz Ot I10 01/10/2016 MICHEL BULLOCK, EFRA Luz Ot I25.10 01/10/2016 MICHEL BULLOCK, EFRA Luz Ot R00.2 01/29/2016 MICHEL BULLOCK, EFRA Luz Ot E78.2 01/29/2016 MICHEL BULLOCK, EFRA Luz Ot I10 01/29/2016 MICHEL BULLOCK, EFRA Luz Ot I25.10 01/29/2016 MICHEL BULLOCK, EFRA Luz Ot R00.2 02/26/2016 MICHEL BULLOCK, EFRA Luz Ot E78.2 MIXED HYPERLIPIDEMIA 02/26/2016 MICHEL BULLOCK, EFRA Luz Ot I10 ESSENTIAL (PRIMARY) HYPERTENSION 02/26/2016 MICHEL BULLOCK, EFRA Luz Ot I25.10 ATHSCL HEART DISEASE OF [place] CORONARY 02/26/2016 MICHEL BULLOCK, EFRA Luz Ot R00.2 PALPITATIONS 03/05/2016 CON BULLOCK, ADAL Randhawa Ot E78.2 MIXED HYPERLIPIDEMIA 03/05/2016 CON BULLOCK, ADAL J Ot I10 ESSENTIAL (PRIMARY) HYPERTENSION 03/05/2016 CON BULLOCK, ADAL Randhawa Ot I25.10 ATHSCL HEART DISEASE OF [place] CORONARY 03/05/2016 CON BULLOCK, ADAL Randhawa Ot R00.2 PALPITATIONS 03/20/2016 CON BULLOCK, ADAL Randhawa Ot E78.2 MIXED HYPERLIPIDEMIA 03/20/2016 CON BULLOCK, ADAL Randhawa Ot I10 ESSENTIAL (PRIMARY) HYPERTENSION 03/20/2016 CON BULLOCK, ADAL Randhawa Ot I25.10 ATHSCL HEART DISEASE OF [place] CORONARY 03/20/2016 CON BULLOCK, ADAL Randhawa Ot R00.2 PALPITATIONS 03/26/2016 SHIRA CAMPO FACILITIES ENGINEER Ot A69.20 LYME DISEASE, UNSPECIFIED 04/19/2016 BEVERLY MCLAUGHLIN MD Ot Z45.2 ENCOUNTER FOR ADJUSTMENT AND MANAGEMENT 04/29/2016 BEVERLY MCLAUGHLIN MD Ot Z45.2 ENCOUNTER FOR ADJUSTMENT AND MANAGEMENT 05/03/2016 SHIRA CAMPO FACILITIES ENGINEER Ot A69.20 LYME DISEASE, UNSPECIFIED 05/07/2016 SHIRA CAMPO FACILITIES ENGINEER Ot A69.20 LYME DISEASE, UNSPECIFIED 05/20/2016 BEVERLY MCLAUGHLIN MD Ot R19.7 DIARRHEA, UNSPECIFIED 05/20/2016 BEVERLY MCLAUGHLIN MD Ot R19.7 DIARRHEA, UNSPECIFIED 05/20/2016 BEVERLY MCLAUGHLIN MD Ot R19.7 DIARRHEA, UNSPECIFIED 05/28/2016 BEVERLY MCLAUGHLIN MD Ot Z45.2 ENCOUNTER FOR ADJUSTMENT AND MANAGEMENT 05/29/2016 BEVERLY MCLAUGHLIN MD Ot R19.7 DIARRHEA, UNSPECIFIED 05/29/2016 BEVERLY MCLAUGHLIN MD Ot Z45.2 ENCOUNTER FOR ADJUSTMENT AND MANAGEMENT 06/03/2016 BEVERLY MCLAUGHLIN MD Ot Z45.2 ENCOUNTER FOR ADJUSTMENT AND MANAGEMENT 06/06/2016 BEVERLY MCLAUGHLIN MD Ot Z45.2 ENCOUNTER FOR ADJUSTMENT AND MANAGEMENT 06/06/2016 BEVERLY MCLAUGHLIN MD Ot R19.7 DIARRHEA, UNSPECIFIED 06/06/2016 LISSETTE BULLOCK, BEVERLY Luz Ot Z45.2 ENCOUNTER FOR ADJUSTMENT AND MANAGEMENT 06/17/2016 SHIRA CAMPO FACILITIES ENGINEER Ot A69.20 LYME DISEASE, UNSPECIFIED 06/24/2016 SHIRA CAMPO FACILITIES ENGINEER Ot R19.7 DIARRHEA, UNSPECIFIED 06/27/2016 LISSETTE BULLOCK, BEVERLY Luz Ot R19.7 DIARRHEA, UNSPECIFIED 06/30/2016 LISSETTE BULLOCK, BEVERLY Lzu Ot R19.7 DIARRHEA, UNSPECIFIED 07/07/2016 LISSETTE BULLOCK, BEVERLY Luz Ot R19.7 DIARRHEA, UNSPECIFIED 07/08/2016 LISSETTE BULLOCK, BEVERLY Luz Ot R19.7 DIARRHEA, UNSPECIFIED 07/09/2016 SHIRA CAMPO FACILITIES ENGINEER Ot R19.7 DIARRHEA, UNSPECIFIED 07/18/2016 LISSETTE BULLOCK, BEVERLY Luz Ot A69.20 LYME DISEASE, UNSPECIFIED 07/18/2016 LISSETTE BULLOCK, BEVERLY Luz Ot Z45.2 ENCOUNTER FOR ADJUSTMENT AND MANAGEMENT 07/18/2016 LISSETTE BULLOCK, BEVERLY Luz Ot A69.20 LYME DISEASE, UNSPECIFIED 07/18/2016 LISSETTE BULLOCK, BEVERLY Luz Ot Z45.2 ENCOUNTER FOR ADJUSTMENT AND MANAGEMENT 07/28/2016 SHIRA CAMPO FACILITIES ENGINEER Ot R19.7 DIARRHEA, UNSPECIFIED 08/06/2016 LISSETTE BULLOCK, BEVERLY Luz Ot A69.20 LYME DISEASE, UNSPECIFIED 08/06/2016 LISSETTE BULLOCK, BEVERLY Luz Ot Z45.2 ENCOUNTER FOR ADJUSTMENT AND MANAGEMENT 08/15/2016 Ot V72.84 EXAM PRE- OPERATIVE NOS 08/15/2016 Ot 721.3 LUMBOSACRAL SPONDYLOSIS 08/15/2016 Ot 959.19 OTH INJURY OF OTHER SITES OF TRUNK 08/15/2016 Ot E000.8 OTHER EXTERNAL CAUSE STATUS 08/15/2016 Ot E849.0 ACCIDENT IN HOME 08/15/2016 Ot E888.9 FALL NOS 08/15/2016 Ot 530.5 DYSKINESIA OF [place]HAG[place] 08/15/2016 Ot 787.20 DYSPHAGIA, UNSPECIFIED 08/15/2016 Ot 530.11 REFLUX ESOPHAGITIS 08/15/2016 Ot 789.00 ABDOMINAL PAIN, UNSPECIFIED SITE 08/15/2016 Ot 573.8 LIVER DISORDERS NEC 08/15/2016 Ot 789.00 ABDOMINAL PAIN, UNSPECIFIED SITE 08/15/2016 ADAL ANDUJAR MD Ot 786.05 SHORTNESS OF BREATH 08/15/2016 ADAL ANDUJAR MD Ot 786.50 CHEST PAIN NOS 08/15/2016 ADAL ANDUJAR MD Ot V72.81 [id number] CARDIOVASCULAR 08/15/2016 WOODY MELENDEZ MD Ot V67.9 FOLLOW-UP EXAM NOS 08/15/2016 BREEZY MCCOY KI K Ot 272.4 HYPERLIPIDEMIA NEC/NOS 08/15/2016 BREEZY MCCOY KI K Ot 401.9 HYPERTENSION NOS 08/15/2016 BREEZY MCCOY KI K Ot 414.00 CORON ATHEROSCLER NOS TYPE VESSEL, NATIV 08/15/2016 BREEZY MCCOY KI K Ot 228.04 HEMANGIOMA INTRA-ABDOM 08/15/2016 BREEZY MCCOY KI K Ot 272.4 HYPERLIPIDEMIA NEC/NOS 08/15/2016 BREEZY MCCOY KI K Ot 401.9 HYPERTENSION NOS 08/15/2016 BREEZY MCCOY KI K Ot 414.00 CORON ATHEROSCLER NOS TYPE VESSEL, NATIV 08/15/2016 BREEZY MCCOY KI K Ot 424.0 MITRAL VALVE DISORDER 08/15/2016 BREEZY MCCOY KI K Ot 426.3 LEFT BB BLOCK NEC 08/15/2016 BREEZY MCCOY KI K Ot 429.9 HEART DISEASE NOS 08/15/2016 BREEZY MCCOY KI K Ot 530.81 ESOPHAGEAL REFLUX 08/15/2016 BREEZY MCCOY KI K Ot 729.1 MYALGIA AND MYOSITIS NOS 08/15/2016 BREEZY MCCOY KI K Ot 785.1 PALPITATIONS 08/15/2016 BREEZY MCCOY KI K Ot 786.50 CHEST PAIN NOS 08/15/2016 ADAL ANDUJAR MD Ot 401.9 HYPERTENSION NOS 08/15/2016 ADAL ANDUJAR MD Ot 427.31 ATRIAL FIBRILLATION 08/15/2016 ADAL ANDUJAR MD Ot 785.1 PALPITATIONS 08/15/2016 ADAL ANDUJAR MD Ot 786.09 RESPIRATORY ABNORM NEC 08/15/2016 DAREK MEJIA MD Ot V72.84 EXAM PRE-OPERATIVE NOS 08/15/2016 Ot 728.87 MUSCLE WEAKNESS (GENERALIZED) 08/15/2016 Ot 729.5 PAIN IN LIMB 08/15/2016 Ot 733.00 OSTEOPOROSIS NOS 08/15/2016 Ot V76.12 OTH SCREEN MAMMO-MALIGN NEOPLASM OF [place] 08/15/2016 Ot 344.60 CAUDA EQUINA SYND NOS 08/15/2016 Ot 721.3 LUMBOSACRAL SPONDYLOSIS 08/15/2016 Ot 722.10 LUMBAR DISC DISPLACEMENT 08/15/2016 Ot 729.5 PAIN IN LIMB 08/15/2016 Ot 733.00 OSTEOPOROSIS NOS 08/15/2016 YESY HENDRIX PACKAGE CLERK Ot 724.8 OTHER BACK SYMPTOMS 08/15/2016 LISSETTE BULLOCK, BEVERLY Luz Ot D49.2 NEOPLASM OF UNSP BEHAVIOR OF BONE, SOFT 08/15/2016 CON BULLOCK, ADAL Randhawa Ot E78.2 MIXED HYPERLIPIDEMIA 08/15/2016 ADAL ANDUJAR MD Ot I10 ESSENTIAL (PRIMARY) HYPERTENSION 08/15/2016 ADAL ANDUJAR MD Ot I25.10 ATHSCL HEART DISEASE OF [place] CORONARY 08/15/2016 ADAL ANDUJAR MD Ot R00.2 PALPITATIONS 08/15/2016 EFRA PEARSON MD Ot E78.2 MIXED HYPERLIPIDEMIA 08/15/2016 MICHEL BULLOCK, EFRA Luz Ot I10 ESSENTIAL (PRIMARY) HYPERTENSION 08/15/2016 EFRA PEARSON MD Ot I25.10 ATHSCL HEART DISEASE OF [place] CORONARY 08/15/2016 MICHEL BULLOCK, EFRA Luz Ot R00.2 PALPITATIONS 08/15/2016 BEVERLY MCLAUGHLIN MD Ot R19.7 DIARRHEA, UNSPECIFIED 08/15/2016 BEVERLY MCLAUGHLIN MD Ot R19.7 DIARRHEA, UNSPECIFIED 08/15/2016 SHIRA CAMPO FACILITIES ENGINEER Ot A69.20 LYME DISEASE, UNSPECIFIED 08/15/2016 SHIRA CAMPO FACILITIES ENGINEER Ot R19.7 DIARRHEA, UNSPECIFIED 08/15/2016 BEVERLY MCLAUGHLIN MD Ot R19.7 DIARRHEA, UNSPECIFIED 08/15/2016 BEVERLY MCLAUGHLIN MD Ot A69.20 LYME DISEASE, UNSPECIFIED 08/15/2016 BEVERLY MCLAUGHLIN MD Ot Z45.2 ENCOUNTER FOR ADJUSTMENT AND MANAGEMENT 08/15/2016 BEVERLY MCLAUGHLIN MD Ot Z45.2 ENCOUNTER FOR ADJUSTMENT AND MANAGEMENT 08/18/2016 ADAL ANDUJAR MD Ot E78.2 MIXED HYPERLIPIDEMIA 08/18/2016 ADAL ANDUJAR MD J Ot I11.9 HYPERTENSIVE HEART DISEASE WITHOUT HEART 08/18/2016 ADAL ANDUJAR MD J Ot I25.10 ATHSCL HEART DISEASE OF [place] CORONARY 08/18/2016 ADAL ANDUJAR MD Ot I44.7 LEFT BUNDLE-BRANCH BLOCK, UNSPECIFIED 08/18/2016 ADAL ANDUJAR MD J Ot I51.9 HEART DISEASE, UNSPECIFIED 08/18/2016 ADAL ANDUJAR MD J Ot R07.89 OTHER CHEST PAIN 08/19/2016 BEVERLY MCLAUGHLIN MD Ot R19.7 DIARRHEA, UNSPECIFIED 09/05/2016 ADAL ANDUJAR MD Ot E78.2 MIXED HYPERLIPIDEMIA 09/05/2016 ADAL ANDUJAR MD Ot I11.9 HYPERTENSIVE HEART DISEASE WITHOUT HEART 09/05/2016 ADAL ANDUJAR MD Ot I25.10 ATHSCL HEART DISEASE OF [place] CORONARY 09/05/2016 ADAL ANDUJAR MD Ot I44.7 LEFT BUNDLE-BRANCH BLOCK, UNSPECIFIED 09/05/2016 ADAL ANDUJAR MD Ot I51.9 HEART DISEASE, UNSPECIFIED 09/05/2016 ADAL ANDUJAR MD J Ot R07.89 OTHER CHEST PAIN 09/05/2016 BEVERLY MCLAUGHLIN MD Ot Z45.2 ENCOUNTER FOR ADJUSTMENT AND MANAGEMENT 09/10/2016 ADAL ANDUJAR MD Ot E78.2 MIXED HYPERLIPIDEMIA 09/10/2016 ADAL ANDUJAR MD Ot I11.9 HYPERTENSIVE HEART DISEASE WITHOUT HEART 09/10/2016 ADAL ANDUJAR MD J Ot I25.10 ATHSCL HEART DISEASE OF [place] CORONARY 09/10/2016 ADAL ANDUJAR MD Ot I44.7 LEFT BUNDLE-BRANCH BLOCK, UNSPECIFIED 09/10/2016 ADAL ANDUJAR MD J Ot I51.9 HEART DISEASE, UNSPECIFIED 09/10/2016 ADAL ANDUJAR MD J Ot R07.89 OTHER CHEST PAIN 09/10/2016 BEVERLY MCLAUGHLIN MD Ot Z45.2 ENCOUNTER FOR ADJUSTMENT AND MANAGEMENT 10/03/2016 SHIRA CAMPO APRN Ot R19.7 DIARRHEA, UNSPECIFIED 10/03/2016 SHIRA CAMPO APRN Ot R19.7 DIARRHEA, UNSPECIFIED 10/03/2016 SHIRA CAMPO APRN Ot R19.7 DIARRHEA, UNSPECIFIED 10/22/2016 SHIRA CAMPO APRN Ot R19.7 DIARRHEA, UNSPECIFIED 12/23/2016 SESAR BRIONES DO, Ot E11.9 TYPE 2 DIABETES MELLITUS WITHOUT COMPLIC 12/23/2016 SESAR BRIONES DO, Ot I25.10 ATHSCL HEART DISEASE OF [place] CORONARY 12/23/2016 SESAR BRIONES DO Ot I48.2 CHRONIC ATRIAL FIBRILLATION 12/23/2016 SESAR BRIONES DO Ot R42 DIZZINESS AND GIDDINESS 12/23/2016 SESAR BRIONES DO, Ot R55 SYNCOPE AND COLLAPSE 12/23/2016 SESAR BRIONES DO, Ot Z79.82 CORRECTION (CURRENT) USE OF ASPIRIN 12/23/2016 SESAR BRIONES DO, Ot Z79.899 OTHER CORRECTION (CURRENT) DRUG THERAPY 12/24/2016 SESAR BRIONES DO, Ot E11.9 TYPE 2 DIABETES MELLITUS WITHOUT COMPLIC 12/24/2016 SESAR BRIONES DO, Ot I25.10 ATHSCL HEART DISEASE OF [place] CORONARY 12/24/2016 SESAR BRIONES DO Ot I48.2 CHRONIC ATRIAL FIBRILLATION 12/24/2016 SESAR BRIONES DO Ot R42 DIZZINESS AND GIDDINESS 12/24/2016 SESAR BRIONES DO, Ot R55 SYNCOPE AND COLLAPSE 12/24/2016 SESAR BRIONES DO Ot Z79.82 CORRECTION (CURRENT) USE OF ASPIRIN 12/24/2016 SESAR BRIONES DO, Ot Z79.899 OTHER OFFSET PRESSMAN (CURRENT) DRUG THERAPY 03/25/2017 Ot V72.84 EXAM PRE- OPERATIVE NOS 03/25/2017 Ot 721.3 LUMBOSACRAL SPONDYLOSIS 03/25/2017 Ot 959.19 OTH INJURY OF OTHER SITES OF TRUNK 03/25/2017 Ot E000.8 OTHER EXTERNAL CAUSE STATUS 03/25/2017 Ot E849.0 ACCIDENT IN HOME 03/25/2017 Ot E888.9 FALL NOS 03/25/2017 Ot 530.5 DYSKINESIA OF ESOPHAGUS 03/25/2017 Ot 787.20 DYSPHAGIA, UNSPECIFIED 03/25/2017 Ot 530.11 REFLUX ESOPHAGITIS 03/25/2017 Ot 789.00 ABDOMINAL PAIN, UNSPECIFIED SITE 03/25/2017 Ot 573.8 LIVER DISORDERS NEC 03/25/2017 Ot 789.00 ABDOMINAL PAIN, UNSPECIFIED SITE 03/25/2017 CON BULLOCK, ADAL Rnadhawa Ot 786.05 SHORTNESS OF BREATH 03/25/2017 ADAL ANDUJAR MD Ot 786.50 CHEST PAIN NOS 03/25/2017 CON BULLOCK, ADAL Randhawa Ot V72.81 [id number]-[id number] CARDIOVASCULAR 03/25/2017 NORA BULLOCK, WOODY Betancourt Ot V67.9 FOLLOW-UP EXAM NOS 03/25/2017 KI PZA Ot 272.4 HYPERLIPIDEMIA NEC/NOS 03/25/2017 KI PAZ Ot 401.9 HYPERTENSION NOS 03/25/2017 KI PAZ Ot 414.00 CORON ATHEROSCLER NOS TYPE VESSEL, NATIV 03/25/2017 KI PAZ Ot 228.04 HEMANGIOMA INTRA-ABDOM 03/25/2017 KI PAZ Ot 272.4 HYPERLIPIDEMIA NEC/NOS 03/25/2017 KI PAZ Ot 401.9 HYPERTENSION NOS 03/25/2017 KI PAZ Ot 414.00 CORON ATHEROSCLER NOS TYPE VESSEL, NATIV 03/25/2017 KI PAZ Ot 424.0 MITRAL VALVE DISORDER 03/25/2017 KI PAZ Ot 426.3 LEFT BB BLOCK NEC 03/25/2017 KI PAZ Ot 429.9 HEART DISEASE NOS 03/25/2017 KI PAZ Ot 530.81 ESOPHAGEAL REFLUX 03/25/2017 KI PAZ Ot 729.1 MYALGIA AND MYOSITIS NOS 03/25/2017 KI PAZ Ot 785.1 PALPITATIONS 03/25/2017 KI PAZ Ot 786.50 CHEST PAIN NOS 03/25/2017 ADAL ANDUJAR MD Ot 401.9 HYPERTENSION NOS 03/25/2017 ADAL ANDUJAR MD Ot 427.31 ATRIAL FIBRILLATION 03/25/2017 ADAL ANDUJAR MD Ot 785.1 PALPITATIONS 03/25/2017 ADAL ANDUJAR MD Ot 786.09 RESPIRATORY ABNORM NEC 03/25/2017 JACKIE BULLOCK, DAREK Ot V72.84 EXAM PRE-OPERATIVE NOS 03/25/2017 Ot 728.87 MUSCLE WEAKNESS (GENERALIZED) 03/25/2017 Ot 729.5 PAIN IN LIMB 03/25/2017 Ot 733.00 OSTEOPOROSIS NOS 03/25/2017 Ot V76.12 OTH SCREEN MAMMO-MALIGN NEOPLASM OF [place] 03/25/2017 Ot 344.60 CAUDA EQUINA SYND NOS 03/25/2017 Ot 721.3 LUMBOSACRAL SPONDYLOSIS 03/25/2017 Ot 722.10 LUMBAR DISC DISPLACEMENT 03/25/2017 Ot 729.5 PAIN IN LIMB 03/25/2017 Ot 733.00 OSTEOPOROSIS NOS 03/25/2017 YESY HENDRIX PACKAGE CLERK Ot 724.8 OTHER BACK SYMPTOMS 03/25/2017 LISSETTE BULLOCK, BEVERLY Luz Ot D49.2 NEOPLASM OF UNSP BEHAVIOR OF BONE, SOFT 03/25/2017 ADAL ANDUJAR MD Ot E78.2 MIXED HYPERLIPIDEMIA 03/25/2017 ADAL ANDUJAR MD Ot I10 ESSENTIAL (PRIMARY) HYPERTENSION 03/25/2017 ADAL ANDUJAR MD Ot I25.10 ATHSCL HEART DISEASE OF [place] CORONARY 03/25/2017 ADAL ANDUJAR MD Ot R00.2 PALPITATIONS 03/25/2017 EFRA PEARSON MD Ot E78.2 MIXED HYPERLIPIDEMIA 03/25/2017 EFRA PEARSON MD Ot I10 ESSENTIAL (PRIMARY) HYPERTENSION 03/25/2017 EFRA PEARSON MD Ot I25.10 ATHSCL HEART DISEASE OF [place] CORONARY 03/25/2017 EFRA PEARSON MD Ot R00.2 PALPITATIONS 03/25/2017 BEVERLY MCLAUGHLIN MD Ot R19.7 DIARRHEA, UNSPECIFIED 03/25/2017 BEVERLY MCLAUGHLIN MD Ot R19.7 DIARRHEA, UNSPECIFIED 03/25/2017 SHIRA CAMPO FACILITIES ENGINEER Ot A69.20 LYME DISEASE, UNSPECIFIED 03/25/2017 SHIRA CAMPO APRN Ot R19.7 [place], UNSPECIFIED 03/25/2017 ADAL ANDUJAR MD Ot E78.2 MIXED HYPERLIPIDEMIA 03/25/2017 ADAL ANDUJAR MD Ot I11.9 HYPERTENSIVE HEART DISEASE WITHOUT HEART 03/25/2017 ADAL ANDUJAR MD Ot I25.10 ATHSCL HEART DISEASE OF [place] CORONARY 03/25/2017 ADAL ANDUJAR MD Ot I44.7 LEFT BUNDLE-BRANCH BLOCK, UNSPECIFIED 03/25/2017 ADAL ANDUJAR MD Ot I51.9 HEART DISEASE, UNSPECIFIED 03/25/2017 ADAL ANDUJAR MD Ot R07.89 OTHER CHEST PAIN 03/25/2017 BEVERLY MCLAUGHLIN MD Ot A69.20 LYME DISEASE, UNSPECIFIED 03/25/2017 BEVERLY MCLAUGHLIN MD Ot Z45.2 ENCOUNTER FOR ADJUSTMENT AND MANAGEMENT 03/25/2017 BEVERLY MCLAUGHLIN MD Ot Z45.2 ENCOUNTER FOR ADJUSTMENT AND MANAGEMENT 03/25/2017 BEVERLY MCLAUGHLIN MD Ot Z45.2 ENCOUNTER FOR ADJUSTMENT AND MANAGEMENT 03/25/2017 SHIRA CAMPO APRN Ot R19.7 DIARRHEA, UNSPECIFIED 03/30/2017 BEVERLY MCLAUGHLIN MD Ot R40.4 TRANSIENT ALTERATION OF AWARENESS 04/20/2017 BEVERLY MCLAUGHLIN MD Ot R40.4 TRANSIENT ALTERATION OF AWARENESS 04/28/2017 BEVERLY MCLAUGHLIN MD Ot R40.4 TRANSIENT ALTERATION OF AWARENESS 10/14/2017 ADAL ANDUJAR MD Ot E78.5 HYPERLIPIDEMIA, UNSPECIFIED 10/14/2017 ADAL ANDUJAR MD, Ot I11.0 HYPERTENSIVE HEART DISEASE WITH HEART FA 10/14/2017 ADAL ANDUJAR MD Ot I25.10 ATHSCL HEART DISEASE OF [place] CORONARY 10/14/2017 ADAL ANDUJAR MD Ot I34.1 NONRHEUMATIC MITRAL (VALVE) PROLAPSE 10/14/2017 ADAL ANDUJAR MD, Ot I44.7 LEFT BUNDLE-BRANCH BLOCK, UNSPECIFIED 10/14/2017 ADAL ANDUJAR MD Ot I48.0 PAROXYSMAL ATRIAL FIBRILLATION 10/14/2017 ADAL ANDUJAR MD, Ot I50.22 CHRONIC SYSTOLIC (CONGESTIVE) HEART FAIL 10/14/2017 ADAL ANDUJAR MD, Ot M79.7 FIBROMYALGIA 10/14/2017 ADAL ANDUJAR MD, Ot Z79.01 CORRECTION (CURRENT) USE OF ANTICOAGULANT 10/14/2017 ADAL ANDUJAR MD, Ot Z79.82 CORRECTION (CURRENT) USE OF ASPIRIN 10/14/2017 ADAL ANDUJAR MD Ot Z79.899 OTHER CORRECTION (CURRENT) DRUG THERAPY 10/14/2017 ADAL ANDUJAR MD Ot Z95.5 PRESENCE OF CORONARY ANGIOPLASTY IMPLANT 10/23/2017 ADAL ANDUJAR MD Ot E78.5 HYPERLIPIDEMIA, UNSPECIFIED 10/23/2017 ADAL ANDUJAR MD Ot I11.0 HYPERTENSIVE HEART DISEASE WITH HEART FA 10/23/2017 ADAL ANDUJAR MD Ot I25.10 ATHSCL HEART DISEASE OF [place] CORONARY 10/23/2017 ADAL ANDUJAR MD Ot I34.1 NONRHEUMATIC MITRAL (VALVE) PROLAPSE 10/23/2017 ADAL ANDUJAR MD Ot I44.7 LEFT BUNDLE-BRANCH BLOCK, UNSPECIFIED 10/23/2017 ADAL ANDUJAR MD Ot I48.0 PAROXYSMAL ATRIAL FIBRILLATION 10/23/2017 ADAL ANDUJAR MD Ot I50.22 CHRONIC SYSTOLIC (CONGESTIVE) HEART FAIL 10/23/2017 ADAL ANDUJAR MD Ot M79.7 FIBROMYALGIA 10/23/2017 ADAL ANDUJAR MD Ot Z79.01 CORRECTION (CURRENT) USE OF ANTICOAGULANT 10/23/2017 ADAL ANDUJAR MD Ot Z79.82 CORRECTION (CURRENT) USE OF ASPIRIN 10/23/2017 ADAL ANDUJAR MD Ot Z79.899 OTHER CORRECTION (CURRENT) DRUG THERAPY 10/23/2017 ADAL ANDUJAR MD Ot Z95.5 PRESENCE OF CORONARY ANGIOPLASTY IMPLANT 11/13/2017 ADAL ANDUJAR MD Ot E78.5 HYPERLIPIDEMIA, UNSPECIFIED 11/13/2017 ADAL ANDUJAR MD Ot I11.0 HYPERTENSIVE HEART DISEASE WITH HEART FA 11/13/2017 ADAL ANDUJAR MD Ot I25.10 ATHSCL HEART DISEASE OF [place] CORONARY 11/13/2017 ADAL ANDUJAR MD Ot I34.1 NONRHEUMATIC MITRAL (VALVE) PROLAPSE 11/13/2017 ADAL ANDUJAR MD Ot I44.7 LEFT BUNDLE-BRANCH BLOCK, UNSPECIFIED 11/13/2017 ADAL ANDUJAR MD Ot I48.0 PAROXYSMAL ATRIAL FIBRILLATION 11/13/2017 ADAL ANDUJAR MD Ot I50.22 CHRONIC SYSTOLIC (CONGESTIVE) HEART FAIL 11/13/2017 ADAL ANDUJAR MD, Ot M79.7 FIBROMYALGIA 11/13/2017 ADAL ANDUJAR MD, Ot Z79.01 CORRECTION (CURRENT) USE OF ANTICOAGULANT 11/13/2017 ADAL ANDUJAR MD, Ot Z79.82 OFFSET PRESSMAN (CURRENT) USE OF ASPIRIN 11/13/2017 ADAL ANDUJAR MD, Ot Z79.899 OTHER CORRECTION (CURRENT) DRUG THERAPY 11/13/2017 ADAL ANDUJAR MD, Ot Z95.5 PRESENCE OF CORONARY ANGIOPLASTY IMPLANT Procedures There is no data. Results Test Result Range Stool bacteria identification by culture - 06/05/16 16:54 Stool bacteria identification by culture N2 [facility] Comprehensive metabolic panel - 06/06/16 11:25 Serum or plasma sodium measurement (moles/volume) 142 mmol/L 135-145 Serum or plasma potassium measurement (moles/volume) 4.0 mmol/L 3.6-5.0 Serum or plasma chloride measurement (moles/volume) 108 mmol/L 98-107 Carbon dioxide 26 mmol/L 21-32 Serum or plasma anion gap determination (moles/volume) 8 mmol/L 5-14 Serum or plasma urea nitrogen measurement (mass/volume) 18 mg/dL 7-18 Serum or plasma creatinine measurement (mass/volume) 0.66 mg/dL 0.60-1.30 Serum or plasma urea nitrogen/creatinine mass ratio 27 NR Serum or plasma creatinine measurement with calculation of estimated glomerular filtration rate > [facility] Serum or plasma glucose measurement (mass/volume) 94 mg/dL 70-105 Serum or plasma calcium measurement (mass/volume) 9.4 mg/dL 8.5-10.1 Serum or plasma total bilirubin measurement (mass/volume) 0.5 mg/dL 0.1-1.0 Serum or plasma alkaline phosphatase measurement (enzymatic activity/volume) 37 U/L 40-136 Serum or plasma aspartate aminotransferase measurement (enzymatic activity/ volume) 25 U/L 5-34 Serum or plasma alanine aminotransferase measurement (enzymatic activity/volume ) 30 U/L 0-55 Serum or plasma protein measurement (mass/volume) 5.9 g/dL 6.4-8.2 Serum or plasma albumin measurement (mass/volume) 3.9 g/dL 3.2-4.5 Clostridium difficile detection - 06/20/16 19:30 C DIFF MOLECULAR RESULT Positive for toxigenic C diff by DNA amplification NRG Clostridium difficile detection - 06/20/16 19:30 C DIFF MOLECULAR RESULT Positive for toxigenic C diff by DNA amplification NRG CALL POSITIVES (F1 HELP) CALLED TO DR ANAND 06/21 12:24 NRG Ova and parasites - 06/20/16 19:30 DATE OF REF LAB REPORT 07/03/16 9:20 NRG OTP NEGATIVE RESULT PARASITES NOT FOUND NRG Clostridium difficile detection - 08/19/16 09:00 C DIFF MOLECULAR RESULT Negative for toxigenic C diff by DNA amplification NRG C DIFFICILE AG + TOXIN A/B. - 10/02/16 09:50 RESULTS NEGATIVE FOR ANTIGEN AND TOXIN A/B NRG Complete blood count (CBC) with automated white blood cell (WBC) differential - 12/23/16 21:50 Blood leukocytes automated count (number/volume) 6.2 10*3/uL 4.3-11.0 Blood erythrocytes automated count (number/volume) 4.14 10*6/uL 4.35-5.85 Venous blood hemoglobin measurement (mass/volume) 12.4 g/dL 11.5-16.0 Blood hematocrit (volume fraction) 37 % 35-52 Automated erythrocyte mean corpuscular volume 90 [foz_us] 80-99 Automated erythrocyte mean corpuscular hemoglobin (mass per erythrocyte) 30 pg 25-34 Automated erythrocyte mean corpuscular hemoglobin concentration measurement ( mass/volume) 33 g/dL 32-36 Automated erythrocyte distribution width ratio 14.0 % 10.0-14.5 Automated blood platelet count (count/volume) 226 10*3/uL 130-400 Automated blood platelet mean volume measurement 10.0 [foz_us] 7.4-10.4 Automated blood neutrophils/100 leukocytes 62 % 42-75 Automated blood lymphocytes/100 leukocytes 18 % 12-44 Blood monocytes/100 leukocytes 15 % 0-12 Automated blood eosinophils/100 leukocytes 6 % 0-10 Automated blood basophils/100 leukocytes 1 % 0-10 Blood neutrophils automated count (number/volume) 3.8 10*3 1.8-7.8 Blood lymphocytes automated count (number/volume) 1.1 10*3 1.0-4.0 Blood monocytes automated count (number/volume) 0.9 10*3 0.0-1.0 Automated eosinophil count 0.4 10*3/uL 0.0-0.3 Automated blood basophil count (count/volume) 0.0 10*3/uL 0.0-0.1 Comprehensive metabolic panel - 12/23/16 21:50 Serum or plasma sodium measurement (moles/volume) 139 mmol/L 135-145 Serum or plasma potassium measurement (moles/volume) 4.0 mmol/L 3.6-5.0 Serum or plasma chloride measurement (moles/volume) 105 mmol/L 98-107 Carbon dioxide 24 mmol/L 21-32 Serum or plasma anion gap determination (moles/volume) 10 mmol/L 5-14 Serum or plasma urea nitrogen measurement (mass/volume) 19 mg/dL 7-18 Serum or plasma creatinine measurement (mass/volume) 0.74 mg/dL 0.60-1.30 Serum or plasma urea nitrogen/creatinine mass ratio 26 NRG Serum or plasma creatinine measurement with calculation of estimated glomerular filtration rate > NRG Serum or plasma glucose measurement (mass/volume) 96 mg/dL 70-105 Serum or plasma calcium measurement (mass/volume) 9.1 mg/dL 8.5-10.1 Serum or plasma total bilirubin measurement (mass/volume) 0.3 mg/dL 0.1-1.0 Serum or plasma alkaline phosphatase measurement (enzymatic activity/volume) 50 U/L 40-136 Serum or plasma aspartate aminotransferase measurement (enzymatic activity/ volume) 23 U/L 5-34 Serum or plasma alanine aminotransferase measurement (enzymatic activity/volume ) 22 U/L 0-55 Serum or plasma protein measurement (mass/volume) 6.1 g/dL 6.4-8.2 Serum or plasma albumin measurement (mass/volume) 3.8 g/dL 3.2-4.5 Magnesium - 12/23/16 21:50 Magnesium 2.2 mg/dL 1.8-2.4 Serum or plasma lithium measurement (moles/volume) - 12/23/16 21:50 BNP level 35.9 pg/mL <100.0 Serum or plasma troponin i.cardiac measurement (mass/volume) - 12/23/16 21:50 Serum or plasma troponin i.cardiac measurement (mass/volume) < ng/ mL <0.30 THYROID STIMULATING HORMONE - 12/23/16 21:50 THYROID STIMULATING HORMONE 0.80 u[iU]/mL 0.35-4.94 Complete urinalysis with reflex to culture - 12/23/16 22:48 Urine color determination YELLOW NRG Urine clarity determination CLEAR NRG Urine pH measurement by test strip 7 5-9 Specific gravity of urine by test strip 1.010 1.016- 1.022 Urine protein assay by test strip, semi-quantitative NEGATIVE NEGATIVE Urine glucose detection by automated test strip NEGATIVE NEGATIVE Erythrocytes detection in urine sediment by light microscopy NEGATIVE NEGATIVE Urine ketones detection by automated test strip NEGATIVE NEGATIVE Urine nitrite detection by test strip NEGATIVE NEGATIVE Urine total bilirubin detection by test strip NEGATIVE NEGATIVE Urine urobilinogen measurement by automated test strip (mass/volume) NORMAL NORMAL Urine leukocyte esterase detection by dipstick 1+ NEGATIVE Automated urine sediment erythrocyte count by microscopy (number/high power field) NONE NRG Automated urine sediment leukocyte count by microscopy (number/high power field ) [HPF] NRG Bacteria detection in urine sediment by light microscopy FEW NRG Crystals detection in urine sediment by light microscopy NONE NRG Casts detection in urine sediment by light microscopy NONE NRG Mucus detection in urine sediment by light microscopy NEGATIVE NRG Complete urinalysis with reflex to culture NO NRG Automated blood complete blood count (hemogram) panel - 10/14/17 12:08 Blood leukocytes automated count (number/volume) 5.4 10*3/uL 4.3-11.0 Blood erythrocytes automated count (number/volume) 4.53 10*6/uL 4.35-5.85 Venous blood hemoglobin measurement (mass/volume) 13.5 g/dL 11.5-16.0 Blood hematocrit (volume fraction) 41 % 35-52 Automated erythrocyte mean corpuscular volume 89 [foz_us] 80-99 Automated erythrocyte mean corpuscular hemoglobin (mass per erythrocyte) 30 pg 25-34 Automated erythrocyte mean corpuscular hemoglobin concentration measurement ( mass/volume) 33 g/dL 32-36 Automated erythrocyte distribution width ratio 13.7 % 10.0-14.5 Automated blood platelet count (count/volume) 309 10*3/uL 130-400 Automated blood platelet mean volume measurement 10.1 [foz_us] 7.4-10.4 Complete urinalysis with reflex to culture - 10/14/17 12:08 Urine color determination YELLOW NRG Urine clarity determination CLEAR NRG Urine pH measurement by test strip 8 5-9 Specific gravity of urine by test strip 1.015 1.016- 1.022 Urine protein assay by test strip, semi-quantitative NEGATIVE NEGATIVE Urine glucose detection by automated test strip NEGATIVE NEGATIVE Erythrocytes detection in urine sediment by light microscopy NEGATIVE NEGATIVE Urine ketones detection by automated test strip NEGATIVE NEGATIVE Urine nitrite detection by test strip NEGATIVE NEGATIVE Urine total bilirubin detection by test strip NEGATIVE NEGATIVE Urine urobilinogen measurement by automated test strip (mass/volume) NORMAL NORMAL Urine leukocyte esterase detection by dipstick NEGATIVE NEGATIVE Automated urine sediment erythrocyte count by microscopy (number/high power field) NONE NRG Automated urine sediment leukocyte count by microscopy (number/high power field ) RARE NRG Bacteria detection in urine sediment by light microscopy NEGATIVE NRG Squamous epithelial cells detection in urine sediment by light microscopy RARE NRG Crystals detection in urine sediment by light microscopy NONE NRG Casts detection in urine sediment by light microscopy NONE NRG Mucus detection in urine sediment by light microscopy NEGATIVE NRG Complete urinalysis with reflex to culture NO NRG PT panel in platelet poor plasma by coagulation assay - 10/14/17 12:08 Prothrombin time (PT) in platelet poor plasma by coagulation assay 12.1 s 12.2-14.7 INR in platelet poor plasma or blood by coagulation assay 0.9 0.8-1.4 Activated partial thromboplastin time (aPTT) in platelet poor plasma bycoagulation assay - 10/14/17 12:08 Activated partial thromboplastin time (aPTT) in platelet poor plasma bycoagulation assay 25 s 24-35 Comprehensive metabolic panel - 10/14/17 12:08 Serum or plasma sodium measurement (moles/volume) 143 mmol/L 135-145 Serum or plasma potassium measurement (moles/volume) 3.7 mmol/L 3.6-5.0 Serum or plasma chloride measurement (moles/volume) 106 mmol/L 98-107 Carbon dioxide 26 mmol/L 21-32 Serum or plasma anion gap determination (moles/volume) 11 mmol/L 5-14 Serum or plasma urea nitrogen measurement (mass/volume) 13 mg/dL 7-18 Serum or plasma creatinine measurement (mass/volume) 0.74 mg/dL 0.60-1.30 Serum or plasma urea nitrogen/creatinine mass ratio 18 NRG Serum or plasma creatinine measurement with calculation of estimated glomerular filtration rate > NRG Serum or plasma glucose measurement (mass/volume) 86 mg/dL 70-105 Serum or plasma calcium measurement (mass/volume) 9.2 mg/dL 8.5-10.1 Serum or plasma total bilirubin measurement (mass/volume) 0.5 mg/dL 0.1-1.0 Serum or plasma alkaline phosphatase measurement (enzymatic activity/volume) 50 U/L 40-136 Serum or plasma aspartate aminotransferase measurement (enzymatic activity/ volume) 21 U/L 5-34 Serum or plasma alanine aminotransferase measurement (enzymatic activity/volume ) 17 U/L 0-55 Serum or plasma protein measurement (mass/volume) 7.3 g/dL 6.4-8.2 Serum or plasma albumin measurement (mass/volume) 4.2 g/dL 3.2-4.5 Lipid 1996 panel - 10/14/17 12:08 Serum or plasma triglyceride measurement (mass/volume) 91 mg/dL <150 Serum or plasma cholesterol measurement (mass/volume) 241 mg/dL < 200 Serum or plasma cholesterol in HDL measurement (mass/volume) 80 mg/ dL 40-60 Cholesterol in LDL [mass/volume] in serum or plasma by direct assay 136 mg/dL 1-129 Serum or plasma cholesterol in VLDL measurement (mass/volume) 18 mg/ dL 5-40 Methicillin resistant Staphylococcus aureus (MRSA) screening culture - 12:08 Methicillin resistant Staphylococcus aureus (MRSA) screening culture NEG NRG Encounters ACCT No. Visit Date/Time Discharge Status Pt. Type Provider Facility Loc./Unit Complaint [id number] 10/14/2017 11:51:00 10/14/2017 18:40:00 DIS Outpatient ADAL ANDUJAR MD Via [facility] CATH CP,CAD [id number] 03/27/2017 08:07:00 03/27/2017 23:59:59 CLS Outpatient BEVERLY MCLAUGHLIN MD Via [facility] RT TRANSIENT ALTERATION OF AWARENESS [id number] 12/23/2016 21:22:00 12/23/2016 23:18:00 DIS Emergency SESAR BRIONES DO Via [facility] ER FALL/SYNCOPE [id number] 10/02/2016 11:26:00 10/02/2016 23:59:59 CLS Outpatient SHIRA CAMPO APRN [facility] LAB DIARRHEA [id number] 08/19/2016 10:06:00 08/19/2016 10:07:00 DIS Outpatient BEVERLY MCLAUGHLIN MD [facility] LAB DIARRHEA [id number] 08/15/2016 11:10:00 08/15/2016 23:59:59 CLS Outpatient BEVERLY MCLAUGHLIN MD Via [facility] PICC LINE REMOVAL [id number] 08/15/2016 10:33:00 08/15/2016 23:59:59 CLS Outpatient CON BULLOCK, ADAL Randhawa Via [facility] CARD CAD,CHEST PAIN,HTN,LABB [id number] 08/07/2016 00:08:00 08/07/2016 23:59:59 CLS Preadmit BEVERLY MCLAUGHLIN MD [facility] PICC LINE EVAL, LYME DISEASE [id number] 06/06/2016 11:19:00 08/06/2016 00:01:00 DIS Outpatient BEVERLY MCLAUGHLIN MD [facility] PICC LINE EVAL, LYME DISEASE [id number] 07/18/2016 10:34:00 07/18/2016 23:59:59 CLS Outpatient BEVERLY MCLAUGHLIN MD [facility] PICC LINE FOR LYME DISEASE TREATMENT [id number] 05/29/2016 17:30:00 07/07/2016 00:01:00 DIS Outpatient BEVERLY MCLAUGHLIN MD Via [facility] LAB DIARRHEA [id number] 06/20/2016 19:30:00 06/20/2016 23:59:59 CLS Outpatient SHIRA CAMPO FACILITIES ENGINEER Via [facility] LAB DIARRHEA [id number] 06/18/2016 00:11:00 06/18/2016 23:59:59 CLS Preadmit SHIRA CAMPO FACILITIES ENGINEER [facility] LYME DISEASE [id number] 03/20/2016 08:01:00 06/17/2016 00:01:00 DIS Outpatient SHIRA CAMPO APRN [facility] LYME DISEASE [id number] 06/05/2016 16:53:00 06/05/2016 23:59:59 CLS Outpatient BEVERLY MCLAUGHLIN MD Via [facility] LAB DIARRHEA [id number] 05/17/2016 06:00:00 05/17/2016 23:59:59 CLS Outpatient BEVERLY MCLAUGHLIN MD Via [facility] LAB DIARRHEA [id number] 04/19/2016 10:27:00 04/19/2016 12:30:00 DIS Outpatient BEVERLY MCLAUGHLIN MD [facility] PICC LINE [id number] 02/13/2016 12:14:00 02/13/2016 23:59:59 CLS Outpatient ADAL ANDUJAR MD [facility] CARD CAD,HTN,HLP, PALPITATIONS [id number] 01/07/2016 15:47:00 01/07/2016 23:59:59 CLS Outpatient EFRA PEARSON MD [facility] RAD CAD,HTN,PALPITATIONS, HYPERLIPEDEMIA [id number] 11/12/2015 10:54:00 11/12/2015 23:59:59 CLS Outpatient BEVERLY MCLAUGHLIN MD [facility] RAD LUMBAR NERVE ROOT TUMOR [id number] 04/13/2015 07:40:00 04/13/2015 23:59:59 CLS Outpatient YESY HENDRIX Via [facility] RAD F/U NODULE LESION CAUDAEQUINA,LBP [id number] 05/17/2014 09:02:00 05/17/2014 14:05:00 DIS Outpatient DAREK MEJIA MD [facility] EPIGASTRIC PAIN;FAMILY HISTORY COLON CANCER [id number] 05/15/2014 14:50:00 05/15/2014 23:59:59 CLS Outpatient DAREK MEJIA MD Via [facility] PREOP EPIGASTRIC PAIN; FAMILY HISTORY COLON CANCER [id number] 04/28/2014 14:35:00 04/28/2014 16:40:00 DIS Emergency JASMYN BARNES MD Via [facility] ER CHEST PAIN [id number] 03/29/2014 08:53:00 03/29/2014 23:59:59 CLS Outpatient ADAL ANDUJAR MD Via [facility] CATH AFIB [id number] 03/22/2014 06:45:00 03/22/2014 14:30:00 DIS Outpatient ADAL ANDUJAR MD [facility] CATH AFIB,CAD,CP,HTN,HLP [id number] 02/22/2014 10:41:00 02/22/2014 23:59:59 CLS Outpatient KI PAZ [facility] RAD CP,CAD,HTN [id number] 12/22/2013 13:02:00 12/22/2013 23:59:59 CLS Outpatient KI PAZ [facility] CARD CAD,HTN,HLP [id number] 06/07/2013 13:28:00 06/07/2013 23:59:59 CLS Outpatient WOODY MELENDEZ MD [facility] RAD FOLLOW-UP HEPATIC RESECTION [id number] 04/06/2013 11:37:00 04/06/2013 23:59:59 CLS Outpatient ADAL ANDUJAR MD [facility] RAD CHEST PAIN,SOB,PREOP CLEARANCE [id number] 08/15/2016 10:34:00 Document Registration [id number] 08/15/2016 10:34:00 Document Registration [id number] 08/15/2016 10:33:00 Document Registration [id number] 04/11/2015 08:27:00 Document Registration [id number] 01/25/2015 10:05:00 Document Registration [id number] 01/19/2015 10:53:00 Document Registration [id number] 02/16/2013 13:46:00 Document Registration [id number] 02/10/2013 09:33:00 Document Registration [id number] 02/03/2013 09:08:00 Document Registration [id number] 01/31/2013 09:47:00 Document Registration [id number] 08/30/2012 08:44:00 Document Registration [id number] 08/27/2012 08:23:00 Document Registration [id number] 07/26/2012 12:49:00 Document Registration [id number] 05/22/2011 09:34:00 Document Registration [id number] 08/06/2017 18:16:55 08/06/2017 23:59:59 CLS Outpatient
--- NOTE | 2018-06-23 11:10 | Conscious Sedation/ASA ---
Conscious Sedation Pre-Proced Time Reviewed: 11:00 ASA Class: 2 Airway Mallampati Classification: (standing rock appropriate class) I. II. III, IV Lungs Heart ASA score ASA 1: a normal healthy patient ASA 2: a patient with a mild systemic disease (mid diabetes, controlled hypertension, obesity ASA 3: a patient with a severe systemic disease that limits activity (angina , COPD, prior Myocardial infarction) ASA 4: a patient with an incapacitating disease that is a constant threat to life (CHF, renal failure) ASA 5: a moribund patient not expected to survive 24 hrs. (ruptured aneurysm) ASA 6: a declared brain patient whose organs are being harvested. For emergent operations, add the letter E after the classification Grade 2 Sedation Plan: Analgesia, Amnesia, Plan communicated to team members, Discussed options with patient/fam, Discussed risks with patient/fam Note The patient is an appropriate candidate to undergo the planned procedure, sedation, and anesthesia. The patient immediately re-assessed prior to indication. DAREK MEJIA MD Jun 23, 2018 11:10 am
--- NOTE | 2018-06-23 11:11 | Progress Note-Pre Operative ---
Pre-Operative Progress Note H&P Reviewed The H&P was reviewed, patient examined and no changes noted. Date Seen by Provider: Jun 23, 2018 Time Seen by Provider: 11:00 Date H&P Reviewed: Jun 23, 2018 Time H&P Reviewed: 11:00 Pre-Operative Diagnosis: DAREK EDWARDS MD Jun 23, 2018 11:11 am
[2018-06-23] MEDS ORDERED: ACETAMINOPHEN 325 MG TABLET PO PRN (11:15)
[2018-06-23] MEDS ORDERED: morphine INJ 10 MG/ML 1ML (SYR OR VIAL) IV PRN (11:15)
[2018-06-23] MEDS ORDERED: ONDANSETRON 4 MG/2 ML (SDV) Z0FRAN IV PRN (11:15)
[2018-06-23] MEDS ORDERED: HYDROcodone/APAP 5 MG/325 MG (LORTAB) TAB PO PRN (11:15)
[2018-06-23] MEDS ORDERED: LIDOCAINE JELLY 2% (XYLOCAINE) 5 ML TUBE ONE (13:24)
[2018-06-23] MEDS ORDERED: MIDAZOLAM 2 MG/2 ML (VERSED) VIAL ONE ×3 (13:24)
[2018-06-23] MEDS ORDERED: fentaNYL INJECTION 100 MCG/2 ML AMP ONE (13:24)
[2018-06-23] MEDS ORDERED: HURRICAINE EXT TUBE (BENZOCAINE) ONE (13:24)
[2018-06-23] MEDS: MIDAZOLAM 2 MG/2 ML (VERSED) VIAL IVP PRN ×3 (13:30→13:36)
[2018-06-23] MEDS: fentaNYL INJECTION 100 MCG/2 ML AMP IVP PRN ×2 (13:31→13:34)
[2018-06-23 14:00] VITALS: BP 141/69
[2018-06-23] MEDS ORDERED: PANT40TA2 PO (14:03)
--- NOTE | 2018-06-23 14:03 | Progress Note-Post Operative ---
Post-Operative Progess Note Surgeon (s)/Test Preparation Tutor (s) Surgeon DAREK MEJIA MD Test Preparation Tutor: none Pre-Operative Diagnosis GERD Post-Operative Diagnosis reflux esophagitis(grade 2), moderate sized HH(3cm), mild-mod gastritis. Procedure & Operative Findings Date of Procedure 06/23/18 Procedure Performed/Findings EGD with bx. Anesthesia Type CS Estimated Blood Loss Estimated blood loss (mL): minimal Specimens/Packing Specimens Removed GE jxn, antrum DAREK MEJIA MD Jun 23, 2018 2:03 pm
--- NOTE | 2018-06-23 14:05 | Discharge Inst-Surgical ---
D/C Lap Instructions-KIDO New, Converted, or Re-Newed RX: RX on Chart Follow Up Appt in 6 weeks Activity as tolerated High Fiber Diet 25g or more per day Avoid Alcohol, Caffeine, Spicy [place] and Acid foods. Drink 64 fluid oz or more of fluids per day. Symptoms to Report: Fever over 101 degree F, Nausea/Vomiting If any problems/questions: Contact your physician or go to Emergency Room DAREK MEJIA MD Jun 23, 2018 2:05 pm
[2018-06-23 14:30] VITALS: BP 141/69
[2018-06-23 14:55] VITALS: BP 141/69
--- NOTE | 2018-06-24 00:12 | OPERATIVE REPORT ---
DATE OF SERVICE: 06/23/2018 ATTENDING PRIMARY CARE PHYSICIAN: Kailee Moreira M.D. PREOPERATIVE DIAGNOSIS: Gastroesophageal reflux disease. POSTOPERATIVE DIAGNOSES: Reflux esophagitis grade II, moderate size hiatal hernia approximately 3 cm in size, mild to moderate gastritis. PROCEDURE: EGD with biopsy. SURGEON: Darek Mejia MD ANESTHESIA: Conscious sedation. ESTIMATED BLOOD LOSS: Minimal. FINDINGS: Reflux esophagitis grade II with no ulcerations or strictures. There was a moderate sized hiatal hernia approximately 3 cm in size. Mild to moderate gastritis. No formal ulcerations, polyps or any neoplasms. DISPOSITION: The patient tolerated the procedure well. INDICATIONS: The patient is a 77-year-old female known to us. She has a longstanding history of gastroesophageal reflux disease and peptic ulcer disease and has tried a number of different medications; however, has recurrence of symptoms. She has had right upper abdominal quadrant pain had a large symptomatic liver hemangioma, which was symptomatic and underwent a resection of the hemangioma and cholecystectomy in 2012 at [facility]. She has had an EGD and colonoscopy performed in the past in 2013 where she was found to have a reflux esophagitis as well as a small to moderate size hiatal hernia. She reports chest pressure and she presented to her screen tender helper where she underwent a cardiac catheterization, which was unremarkable. She reports that a few times a week, she will develop epigastric pain as well as a bloating and increased belching. She has tried PPI acid reducers in the past; however, does not feel that this has helped her symptoms. DESCRIPTION OF PROCEDURE: The patient was brought to the endoscopy suite, laid in the left lateral decubitus position. After adequate IV pain and sedative medications and conscious sedation anesthesia, a mouthpiece was applied. Endoscope was placed in the mouth, visualizing the pharynx and hypopharyngeal region. Vocal cords, epiglottis and vallecula identified and appeared to be normal. The endoscope was then gently intubated at the esophageal opening and esophagus insufflated. The endoscope was then gently intubated at the esophageal opening and esophagus insufflated. The endoscope was then advanced to the first, second and third portion of the esophagus at the level of the GE junction, a reflux esophagitis grade II identified. There were no ulcers or strictures identified in this region. A biopsy was taken with forceps with visualization of good hemostasis. The endoscope was then advanced into the stomach and endoscope retroflexed, visualizing again a moderate sized hiatal hernia measurement approximately 3 cm in size. There was a mild to moderate gastritis; however, no ulcers, polyps or any neoplasms. A biopsy was taken of the antrum with forceps for H. pylori with visualization of good hemostasis. The endoscope was then advanced to the pylorus and the first and second portion of the duodenum, which appeared normal and no distal obstructions. The patient tolerated the procedure well. We will recommend continued medical management with small and more frequent meals, avoidance of eating at night as well as head elevation while lying supine. She also needs to avoid caffeinated beverages, spicy, greasy and acidic foods. It appears that the root of her symptoms is due to an enlarging hiatal hernia. If this continues to be symptomatic, she may be a candidate for a hiatal hernia repair. Before this, we will proceed with an esophageal manometry study to rule out an esophageal dysmotility disorder. Job ID: [id number] DocumentID: [id number] Dictated Date: 06/23/2018 13:57:52 Stitcher Tape Controlled Machine Date: 06/24/2018 00:12:00 Dictated By: DAREK MEJIA MD
== END 2018-06-23 14:55 | disposition home or self-care (01) ==
LOC: ENDO 10:46
PROVIDERS: ATTEND Surgery
DX: K21.0 Gastro-esophageal reflux disease with esophagitis (principal); K44.9 Diaphragmatic hernia without obstruction or gangrene; K29.70 Gastritis, unspecified, without bleeding; E03.9 Hypothyroidism, unspecified; G43.909 Migraine, unspecified, not intractable, without status migrainosus; Z79.899 Other long term (current) drug therapy; Z79.82 Long term (current) use of aspirin

== ENCOUNTER → 2018-07-20 | Outpatient (CLI) | payer MEDICARE, OTHER ==
[~2018-07-20] MED LIST changes: +PANT40TA2 PO
--- NOTE | 2018-07-20 14:05 | Diagnostic Imaging Report ---
INDICATION: Chronic neck pain. COMPARISON: 02/28/2009. FINDINGS: Frontal, lateral, and open-mouth views of the cervical spine were obtained. Cervical spine is seen down to the C7-T1 level on the lateral view. Evaluation of static alignment demonstrates mild grade 1 anterolisthesis of C3-C4 on C4-C5. There is also slight reversal of normal lordotic curvature of the cervical spine. There is no evidence of jumped facets. Open-mouth view demonstrates normal C1-C2 alignment. Vertebral body heights are maintained. There is no evidence of acute fracture. There are moderate multilevel degenerative changes consisting of intervertebral disc height loss with anterior and posterior disc osteophyte complex formations. These changes appear greatest at the C5-C6 and C6-C7 levels. Surrounding soft tissue structures are unremarkable. Included portions of lung apices are clear. IMPRESSION: 1. Moderate multilevel degenerative changes of the cervical spine. 2. No acute fracture or dislocation. Dictated by: Dictated on workstation # [id number]
--- NOTE | 2018-07-20 18:10 | Diagnostic Imaging Report ---
INDICATION: Chronic back pain. TIME OF EXAM: 12:00 p.m. FINDINGS: AP and lateral views of the lumbar spine demonstrate left convexity lumbar scoliotic curvature. Lordotic curvature is unremarkable. Vertebral body heights are maintained. No acute compression fracture is seen. There is multilevel degenerative disc disease with variable disc space narrowing and marginal spurring. This appears to be most severe at the L2-3 and L3-4 levels where there is significant disc space narrowing, endplate sclerosis, marginal osteophyte formation, and vacuum disc phenomena. Multiple surgical clips in the abdomen are noted. IMPRESSION: Lumbar scoliosis and spondylosis. No acute bony abnormality is detected. Dictated by: Dictated on workstation # [id number]
== END ==
LOC: RAD 10:51
PROVIDERS: ATTEND Chiropractor
DX: M47.26 Other spondylosis with radiculopathy, lumbar region (principal); M47.22 Other spondylosis with radiculopathy, cervical region; M41.86 Other forms of scoliosis, lumbar region
CPT/HCPCS: 72040; 72100

== ENCOUNTER 2018-10-06 15:21 | Outpatient (RCR) | payer MEDICARE, OTHER | END 2019-01-04 | disposition home or self-care (01) | LOC: LAB 15:21 | PROVIDERS: ATTEND Family Medicine | DX: R19.7 Diarrhea, unspecified (principal) | CPT/HCPCS: 87324; 87449; 87493 ==

== ENCOUNTER 2018-10-30 14:44 | Outpatient (RCR) | payer MEDICARE, OTHER | END 2019-01-28 | disposition home or self-care (01) | LOC: LAB 14:44 | PROVIDERS: ATTEND Family Medicine | DX: R19.7 Diarrhea, unspecified (principal); Z87.19 Personal history of other diseases of the digestive system | CPT/HCPCS: 87324; 87449 ==

== ENCOUNTER 2018-11-23 17:31 | Outpatient (RCR) | payer MEDICARE, OTHER | END 2019-02-21 | disposition home or self-care (01) | LOC: LAB 17:31 | PROVIDERS: ATTEND Family Medicine | DX: R19.7 Diarrhea, unspecified (principal) | CPT/HCPCS: 87324; 87449 ==

== ENCOUNTER → 2019-01-18 | Outpatient (CLI) | payer MEDICARE, OTHER ==
--- NOTE | 2019-01-18 16:46 | Diagnostic Imaging Report ---
PROCEDURE: CT head without contrast. TECHNIQUE: Multiple contiguous axial images were obtained through the brain without the use of intravenous contrast. INDICATION: Frontal headache for six weeks. COMPARISON: Correlation is made with prior CT head from 10/23/2010. FINDINGS: The ventricles and sulci are within normal limits. No sulcal effacement, midline shift, or hemorrhage is detected. Cisterns are patent. Visualized paranasal sinuses are clear. IMPRESSION: No acute intracranial process is detected. Dictated by: Dictated on workstation # [id number]
== END ==
LOC: RAD 15:44
PROVIDERS: ATTEND Nurse Practitioner Family
DX: R51 Headache (principal)
CPT/HCPCS: 70450

== ENCOUNTER 2019-03-12 20:43 | Outpatient (CLI) | payer MEDICARE, OTHER | END 2019-03-13 06:45 | disposition home or self-care (01) | LOC: SLEEP 20:43 | PROVIDERS: ATTEND Otolaryngology Otolaryngology/Facial Plastic Surgery | DX: G47.33 Obstructive sleep apnea (adult) (pediatric) (principal) | CPT/HCPCS: 95811 ==

== ENCOUNTER → 2019-08-08 | Outpatient (CLI) | payer MEDICARE, OTHER ==
[~2019-08-08] MED LIST changes: +CATHETER FLUSH 10 ML SYR IV PRN; +PROG100C11 PO; -PROG100C6 PO; +REGADENOSON 0.4 MG/5 ML SYR (LEXISCAN) IV ONE
[2019-08-08 09:37] VITALS: BP 145/76
[2019-08-08 09:38] VITALS: BP 149/84
--- NOTE | 2019-08-08 16:27 | STRESS TEST ---
DATE OF SERVICE: 08/08/2019 LEXISCAN MYOVIEW STRESS TEST REPORT REFERRING PHYSICIAN: Kailee Moreira MD Baseline heart rate is 89, baseline blood pressure 150/79. Baseline EKG is sinus rhythm with left bundle branch block. In summary, the patient was injected with 10.79 mCi of technetium-99 Myoview and the resting images were obtained. Then, the patient received 0.4 mg of Lexiscan followed by 29.5 mCi of technetium-99 Myoview. Throughout the test, there were no EKG changes. The resting and stress images were reviewed and compared in the short axis, horizontal long axis, and vertical long axis views. Review of the images showed good radiotracer uptake with no significant ischemia or infarction. SSS 0. TID value 1.06. On the gated images, the left ventricle appeared to be normal size with normal contractility. Calculated ejection fraction 49%. CONCLUSION: 1. The patient tolerated Lexiscan well. 2. Baseline left bundle branch block persisted throughout test. 3. No significant ischemia or infarction on SPECT images. 4. Normal left ventricular size with normal contractility. Calculated ejection fraction 49%. Job ID: [id number] DocumentID: [id number] Dictated Date: 08/08/2019 12:03:24 [employer] Laborer Date: 08/08/2019 16:26:25 Dictated By: ADAL ANDUJAR MD
== END ==
LOC: CARD 07:49
PROVIDERS: ATTEND Internal Medicine Cardiovascular Disease
DX: I25.10 Atherosclerotic heart disease of native coronary artery without angina pectoris (principal); I10 Essential (primary) hypertension; K21.9 Gastro-esophageal reflux disease without esophagitis; R00.2 Palpitations
CPT/HCPCS: 78452; 93017

== ENCOUNTER → 2019-08-18 | Outpatient (CLI) | payer MEDICARE, OTHER ==
[~2019-08-18] MED LIST changes: -CATHETER FLUSH 10 ML SYR IV PRN; -REGADENOSON 0.4 MG/5 ML SYR (LEXISCAN) IV ONE
== END ==
LOC: CARD 09:55
PROVIDERS: ATTEND Internal Medicine Cardiovascular Disease
DX: I34.0 Nonrheumatic mitral (valve) insufficiency (principal); I25.10 Atherosclerotic heart disease of native coronary artery without angina pectoris; K21.9 Gastro-esophageal reflux disease without esophagitis; I10 Essential (primary) hypertension; R00.2 Palpitations
CPT/HCPCS: 93306

== ENCOUNTER 2020-05-05 11:30 | Emergency (ER) | payer MEDICARE, OTHER ==
--- OUTSIDE RECORDS SUMMARY | 2020-05-05 11:35 | XMS REPORT | Clinical Summary ---
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 If you d o not see the information that you expected, contact Release of Information in [facility] Care Information Management department at [phone] for further assistan ce in locating additional records.[facility] Allergies Comments Active Allergy Reactions Severity Noted Date Penicillins RASH 03/11/2013 Sulfa (Sulfonamide UNKNOWN 03/11/2013 Antibiotics) pt stated Crazy mood and fitful sleep Temazepam SEE COMMENTS High 01/01/2016 Insomnia Valerian SEE COMMENTS Low 01/01/2016 Medications End Date Status Medication Sig Dispensed Refills Start Date Active CALCIUM CARBONATE/VITAMIN Take by 0 D3 (VITAMIN D-3 PO) mouth. Active GLUTATHIONE PO Take by 0 mouth daily. Active nystatin 500,000 unit Take 500,000 0 tablet Units by mouth. 4 tabs 4 times daily Active MULTIVITAMIN PO Take 1 Tab by 0 mouth daily. Active 5-HYDROXYTRYPTOPHAN Take 2 Tabs 0 (5-HTP PO) by mouth daily. Active PHYTONADIONE (VITAMIN K Take by 0 PO) mouth daily. Active TURMERIC ROOT EXTRACT Take 2 Tabs 0 POIndications: PVCs by mouth (premature ventricular daily. contractions), Palpitations, Paroxysmal A-fib (HCC), Coronary artery disease involving grindstone coronary artery of grindstone heart without angina pectoris Active hydroxychloroquine Take 200 mg 0 (PLAQUENIL) 200 mg by mouth tabletIndications: PVCs twice daily. (premature ventricular contractions), Palpitations, Paroxysmal A-fib (HCC), Coronary artery disease involving grindstone coronary artery of grindstone heart without angina pectoris Active FLUCONAZOLE (BULK) Use 1 Tab as 0 MISCIndications: PVCs directed (premature ventricular daily. contractions), Palpitations, Paroxysmal A-fib (HCC), Coronary artery disease involving grindstone coronary artery of grindstone heart without angina pectoris Active progesterone, Take 200 mg 0 micronized(+) by mouth (PROMETRIUM) 100 mg daily. capsuleIndications: PVCs (premature ventricular contractions), Palpitations, Paroxysmal A-fib (HCC), Coronary artery disease involving grindstone coronary artery of grindstone heart without angina pectoris Active other Take 1 Dose 0 medicationIndications: by mouth PVCs (premature daily. ventricular Lumbrokinase contractions), Palpitations, Paroxysmal A-fib (HCC), Coronary artery disease involving grindstone coronary artery of grindstone heart without angina pectoris Active CYCLOBENZAPRINE HCL Take by 0 (FLEXERIL PO) mouth. Active ofloxacin(+) (FLOXIN) 0.[address] 1 Drop 0 % ophthalmic solution into or around eye(s) four times daily. Active lisinopril (PRINIVIL; Take 5 mg by 0 ZESTRIL) 5 mg tablet mouth daily. Active carvedilol (COREG) 3.125 Take 3.125 mg 0 mg tablet by mouth twice daily with meals. 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 We did not proceed with a g raded challenge as it appears she may still be sensitized to penicillin. - Continue to avoid penicillin products - We can desensitize her to penicillin if needed and we could do this in our office. She would need to stop Core g and Lisinopril for 48 hours prior to desensitization along with antihista mines for 7 days. Allergy to sulfa antimicrobials 03/24/2016 Overview: She had an unknown reaction to a sulfa antibiotic in the 1969's. She doesn't recall any aspect of the reacti on but there were no bullous lesions, desquamation or mucosal surfac e involvement. She has avoided sulfa antibiotics since that time. - We do not have skin testing for sulfa antibiotics that is validated. She would like to know if she is still candido rgic to sulfa. We offered her an oral graded challenge which can be arra nged at her discretion. She would need to stop Coreg and Lisinopril for 4 8 hours prior to challenge and antihistamines 7 days prior. Drug allergy 01/06/2016 Overview: PCN - rash developed in approximately 2 008, patient was unclear about any other details. Sulfa - patient states she does not rec all having a reaction. - We discussed an [...] GI upset. Eggplant may have caused throat swellin g on one occasion, now avoiding this as well. - Continue avoidance. We can do skin t esting for eggplant at any time to see if she is truly allergic. History of medical problems 09/18/2015 Overview: Her PMHx briefly includes: Nonsustaine d SVT documented by Reveal LinQ monitor, PAFIB noted 02/2014 during Exer cise Stress Testing, CAD s/p Prior PCI/Stent in 1994, per Dr. 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 Hyde with Mild Bilateral Carotid Stenosis by Duplex 02/2014, Hx of Liver Hemangioma S/P Removal during Explorato ry LAP, and Fibromyalgia--although recently diagnosed with Lyme's Disease which may have been chronic. She has a [id number] score of 4--age, f emale, HTN, CAD. 02/2014 During Exercise Stress Echocardi ogram Ms. Perera had some self-limited AFIB. Dr. Hyde placed her on Xarelto and Diltiazem and ultimately implanted a Reveal LinQ elisa tor to better capture any recurrent aSxic AFIB. Apparently she developed severe headach es and as a result of her evaluation both her Xarelto and Diltiaz em had been held with no improvement. She apparently had tolerated Diltiazem without significant issue when she was on it just a few months ago. Her Reveal LinQ monitor in late 12/2014 and early 01/2015 captured some brief non-sustained tachycardia prompti chaz EP Consultation. Of note: She recently has been diagnose d with Lyme's Disease. She states her doctor told her that this may have been a chronic infection going on for years. She has generalized fatigue and some my algias. In fact, she had been diagnosed with Fibromyalgia in the past . 01/30/15 At her Initial EP Conusltation, she stated that she had not had Sxs with her auto-activated tachy event s. She also stated that when she had activated the device in the past it had been for irregular heart beats but NOT tachypalpitations. In fact she stat ed she had never felt Sxs of tachypalpitations. Her device documented SVT. I anticipate d she either has AVNRT or ATACH. I offered EPS and RFA, but she preferre d medical Tx instead. We initiated her on Diltiazem CD 120 mg daily. I instructed them, if her HR drops belo w 50 bpm or if she had significant Sxs with HRs in the 50s bpm, to stop th e Diltiazem and contact our office. She stated she occasionally had Sxs of LHedness that lasted for seconds. One episode occurred while standing at the sink. Her daughter stated that these episodes began occuring recently and that her mother had been on antibiotics recently for Lyme's Disease . Although infrequent and brief, I asked her to activate her LinQ monitor with Sxs of LHedness. 02/12/15 2/to HRs <50 bpm, Diltiazem was discontinued. Ms. Perera scheduled OV to discuss options for rhythm control t o include Tikosyn initiation or PPM implantation. Paroxysmal A-fib 01/31/2015 Overview: 03/29/14: LINQ implant 03/22/14: Left Heart Cath, no interventi on. 02/22/14: Exercise stress test: No ische barron or artifact. EF 48. Afib w RVR of 163, spontaneous resolved. 12/25/13: 2D echo: Normal LV, EF 50. Mil d MR, TR. 03/27/13: Exercise stress test: No ische barron or artifact. EF 50. 5/31/11: Carotid duplex: Mild bilateral nonobstructive disease <40%. 06/04/05: Left heart cath, no interventi on. 03/01/05: 2D echo: Normal LV, EF 70%. 05/31/02. Left heart cath, no interventi on. 08/06/95: Left heart cath, stent x2 CAD (coronary artery disease) 01/31/2015 HTN (hypertension) 01/31/2015 Hyperlipidemia 01/31/2015 Acute blood loss anemia 04/19/2013 Hemangioma of liver 12/12/1988 Overview: Ms. Perera is a 72 year old woman who has known of having liver hemangiomas at least since 1988. She complained of indigestion, was studied, and found to have multiple liver hemangiomas (I d o not have reports of those studies). She was referred to physician s in [place] in November, for their thoughts about management. Her ca se and her films were reviewed at the [facility], also for thoughts abou t management. The lesions were felt to be benign hemangiomas and, since she was asymptomatic, no therapy was recommended. A CT of the abdomen, done 02/13/1989, and was reported to show 4 areas of low density: a 1.5 cm area i n the tip of the left lobe, a 3 cm area in the posterior inferior right lo be, a 5 cm lesion in the jarek hepatis, and a 4 x 6 cm area in the lat eral superior right lobe. A CT of the abdomen was done 12/06/1993 and the 4 x 6 cm lesion had grown to 6 x 8 cm; the other lesions had not changed i n size. By 02/09/1997, an abdominal ultrasound measured the large lesion in the right upper lobe to be 9 cm in diameter. An ultrasound done on 01/30/20 11 revealed that the large lesion had grown from 10 x 12 x 11 cm on 2007 to 13.1 x 10.8 x 13.3 cm. This past fall, she developed bouts of esoph ageal spasm/reflux and her surgeon felt that they might be related to the hemangioma. He did an EGD in August, which showed evidence of mild to moderate reflux esophagitis as well as gastritis. She was started o n a PPI, with little improvement. She had a normal swallow study on 2012. She had a normal HIDA scan on 02/10/2013. A CT scan of the abdomen done 02/16/13 shows the hemangioma being 13.5 cm x 9.5 cm x 12 cm. She gets acut e onset of pain right behind her xyphoid that goes to her back. The pain may radiate up to her ears. These symptoms may happen during eating, donte cially dry foods, but she has also experienced them in the middle of sleep ing and during taoist. These pains are not related to stress. She does get tightness around her waist when she sits for long periods of time. But she has not noticed any problems leaning over or bending down. Over the last ten years, she has been unable to sleep on her right side. She used to have eladio ns monthly but they are now coming weekly. She has had more eructation. I saw her first on the 11 of March and f elt that her abdominal pain was probably related to the hemangioma sinc e the pain started when the lesion grew. She and her family thought it ove r and decided to have surgery in April. On 04/19/13, she underwent an explorator y laparotomy, intraoperative ultrasound, portal lymph node biopsies, resection of a 12 x 14 cm symptomatic hemangioma of the right lob e, resection of three 2 cm lesions, 2 in the left lobe and 1 in the right l obe, and open cholecystectomy. She had an uneventful post-operative stay a nd was discharged on the 5th post-operative day. L ast Assessment & Plan: Since discharge, she has recovered well . She notes that she can become exhausted the day after doing too much the day before. She is sleeping well, also during the day. She has not had any of the esophageal attacks since surgery. In the week prior to marv cece, she had had four attacks. She feels that she is more comfortable movi ng around and sleeping in different positions than prior. Family History Medical History Relation Name Comments Cancer Brother Coronary Artery Disease Brother Kidney Disease Brother Coronary Artery Disease Father Diabetes Father Stroke Father Coronary Artery Disease Mother Diabetes Mother Relation Name Status Comments Brother Alive Heart disease Brother Appendiceal CA to l ungs Brother Father [place] (Age 70) Mother Complications of DM (Age 82) Sister Alive Social History Date Tobacco Use Types Packs/Day Years Used Never Smoker Smokeless Tobacco: Never Used Drinks/Week oz/Week Comments Alcohol Use No Sex Assigned at Date Recorded Not on file Industry Job Start Date Occupation Not on file Not on file Not on file Travel End Travel History Travel Start No recent travel history available. Last Filed Vital Signs Reading Time Taken Comments Vital Sign 94/62 03/18/2016 3:02 PM CDT Blood Pressure 66 03/18/2016 3:02 PM CDT Pulse 37 C (98.6 F) 03/18/2016 8:09 AM CDT Temperature 18 03/18/2016 8:09 AM CDT Respiratory Rate 100% 05/06/2013 11:29 AM CDT Oxygen Saturation - - Inhaled Oxygen Concentration 45.7 kg (100 lb 11.2 oz) 03/18/2016 3:02 PM CDT Weight 154.9 cm (5' 0.98") 03/18/2016 3:02 PM CDT Height 19.04 03/18/2016 3:02 PM CDT Body Mass Index Plan of Treatment Health Maintenance Due Date Last Done Comments MEDICARE ANNUAL WELLNESS 1940 VISIT DTAP/TDAP VACCINES (1 - 1958 Tdap) HEPATITIS C SCREENING 1958 PHYSICAL (COMPREHENSIVE) 1958 EXAM SHINGLES RECOMBINANT 1990 VACCINE (1 of 2) OSTEOPOROSIS 2005 SCREENING/MONITORING PNEUMONIA (PPSV23) 2005 VACCINE (1 of 1 - PPSV23) INFLUENZA VACCINE 08/09/2020 Implants Device Identifier Shelf Expiration Date Model / Serial / L ot Implanted Type Area Manufactur er Loop Recorder Loop Recorder Results Not on filefrom Last 3 Months Insurance Type Payer Benefit Subscriber ID Effective Phone Address Plan / Dates Group Medicare MEDICARE MEDICARE xxxxxxxxxx 2005- PART A AND Present B [employer] OF ED [employer] OF xxxxxxxx 2013 ED -Present [id number] Advance Directives Patient Supervisor Cell Operation Explanation Type Date Recorded Advance 01/12/2015 9:56 AM Directive/DPOA Date Inactivated Comments Code Status Date Activated 04/24/2013 6:58 PM Full Code 04/19/2013 8:03 PM Provider has discussed Code Status No, discussion no t w/Patient or Family? necessary based on Dx
--- OUTSIDE RECORDS SUMMARY | 2020-05-05 11:43 | XMS REPORT | CCD ---
Author Author Emily Lakhani Organization [facility] Address [address] [place] [address] Phone Care Team Providers Care Design Engineering Intern Name Role Phone PP Unavailable CCM Unavailable Summary Purpose Interface Exchange Insurance Providers Payer name Policy type / Coverage type Covered democrat ID Effective Begin Date Effective End Date WPS Medicare Part B Medicare Part B [id number] Unknown [employer] Medicare Part B [id number] Unknown Family history Mother Diagnosis Age At Onset Arthritis Unknown Diabetes mellitus Type 2 Unknown Osteoporosis Unknown Father Diagnosis Age At Onset Depression Unknown Stroke Unknown Diabetes mellitus Type 2 Unknown Hyperlipidemia Unknown Brother Diagnosis Age At Onset Arthritis Unknown Coronary Artery Disease Unknown Colon cancer Unknown Sister Diagnosis Age At Onset Arthritis Unknown Brother Diagnosis Age At Onset No Family Disease Entered N/A Social History Social History Element Codes Description Effective Dates Marital status Unknown M arried [place] 03/18/2017 Number of children Unknown 3 04/10/2015 Employment Unknown Retir ed 04/10/[address]: 814309409 Never smoker 04/10/[address]: 956916287 Never drinks alcohol 04/10/2015 Allergies, Adverse Reactions, Alerts Substance Reaction Codes Entered Date Inactivated Date Status Penicillin Unknown 03/11/2016 No In active Date Active SULFA(SULFONAMIDE AN TIBIOTICS) Unknown 03/11/2016 No Inactive Date Active Past Medical History Illness Codes Condition Status Onset Date Resolved Date 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 ICD-10: E03.4 Active 11/18/2016 Unknown Essential (primary) hypertension ICD-9: 401.9 ICD-10: I10 Active 04/09/2015 Unknown 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, intractable, without status epilepticus ICD- 9: 345.11 ICD-10: G40.319 Resolved 05/13/2017 Unknown Allergic contact lupe matitis due to plants, except food ICD-9: 692.6 ICD-10: L23.7 Active 05/24/2018 Unknown Headache ICD-9: 784.0 ICD-10: R51 Active 10/12/2017 Unknown Other forms of dyspnea ICD-9: 786.09 ICD-10: R06.09 Active 01/24/2019 Unknown Nasal congestion ICD-9: 478.19 ICD-10: R09.81 Active 01/10/2019 Unknown Diarrhea, unspecified ICD-9: 787.91 ICD-10: R19.7 Active 04/07/2016 Unknown Enterocolitis due to Clostridium difficile, recurrent ICD-9: 008.45 ICD-10: A04.71 Active 11/25/2018 Unknown Low back pain ICD-9: 724.2 ICD-10: M54.5 Active 04/09/2015 Unknown Other specified hernan nflammatory disorders of vagina ICD-9: 625.8 ICD-10: N89.8 Active 09/15/2018 Unknown Encounter for genera l adult medical examination with abnormal findings ICD-9: V70.0 ICD-10: Z00.01 Active 03/10/2016 Unknown Dizziness and giddiness ICD-9: 780.4 ICD-10: R42 Active 06/01/2018 Unknown Obstructive sleep ap bandar (adult) (pediatric) ICD-9: 327.23 ICD-10: G47.33 Active 08/06/2017 Unknown Encounter for screen ing for other musculoskeletal disorder ICD-9: 733.90 ICD-10: Z13.828 Active 03/18/2017 Unknown Transient alteration of awareness ICD-9: 780.02 ICD-10: R40.4 Active 03/18/2017 Unknown Acute recurrent maxi llary sinusitis ICD-9: 461.0 ICD-10: J01.01 Active 12/29/2016 Unknown Enterocolitis due to Clostridium difficile ICD-9: 008.45 ICD-10: A04.7 Active 08/12/2016 Unknown Hypothyroidism, unsp ecified ICD-9: 244.9 ICD-10: E03.9 Active 06/25/2015 Unknown Lyme disease, unspec ified ICD-9: 088.81 ICD-10: A69.20 Active 04/09/2015 Unknown Generalized abdomina l rigidity ICD-9: 789.47 ICD-10: R19.37 Active 04/07/2016 Unknown Abnormal results of thyroid function studies ICD-9: 794.5 ICD-10: R94.6 Active 06/05/2015 Unknown Other conditions ass ociated with Lyme disease ICD-9: 088.81 ICD-10: A69.29 Active 04/09/2015 Unknown Tachycardia, unspeci fied ICD-9: 785.0 ICD-10: R00.0 Active 12/26/2015 Unknown Benign lipomatous ne oplasm of skin and subcutaneous tissue of other sites ICD-9: 214.1 ICD-10: D17.39 Active 09/23/2015 Unknown Hypothryroidism Unknown Active 06/26/2015 Unknow n HYPOTHYROIDISM ICD-9: 244.9 Active 06/25/2015 Unknown Elevated TSH ICD-9: 794.5 Active 06/05/2015 Unknown Atrial fibrillation Unknown Active 04/10/2015 Unknown Hypertension Unknown Active 04/10/2015 Unknow n lymes disease Unknown Active 04/10/2015 Unknow n CAD (coronary artery disease) ICD-9: 414.00 Active 11/2014 Unknown ESSENTIAL HYPERTENSION ICD-9: 401.9 Active 04/09/2015 Unknown Low back pain ICD-9: 724.2 Active 04/09/2015 Unknown Lyme disease ICD-9: 088.81 Active 04/09/2015 Unknown 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/09/2015 Unknown Problems Condition Codes Effectiv e Dates Condition Status 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 ICD-10: E03.4 11/18/2016 Active Essential (primary) hypertension ICD-9: 401.9 ICD-10: I10 04/09/2015 Active 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, intractable, without status epilepticus ICD- 9: 345.11 ICD-10: G40.319 05/13/2017 Resolved Allergic contact lupe matitis due to plants, except food ICD-9: 692.6 ICD-10: L23.7 05/24/2018 Active Headache ICD-9: 784.0 ICD-10: R51 10/12/2017 Active Other forms of dyspnea ICD-9: 786.09 ICD-10: R06.09 01/24/2019 Active Nasal congestion ICD-9: 478.19 ICD-10: R09.81 01/10/2019 Active Diarrhea, unspecified ICD-9: 787.91 ICD-10: R19.7 04/07/2016 Active Enterocolitis due to Clostridium difficile, recurrent ICD-9: 008.45 ICD-10: A04.71 11/25/2018 Active Low back pain ICD-9: 724.2 ICD-10: M54.5 04/09/2015 Active Other specified hernan nflammatory disorders of vagina ICD-9: 625.8 ICD-10: N89.8 09/15/2018 Active Encounter for genera l adult medical examination with abnormal findings ICD-9: V70.0 ICD-10: Z00.01 03/10/2016 Active Dizziness and giddiness ICD-9: 780.4 ICD-10: R42 06/01/2018 Active Obstructive sleep ap bandar (adult) (pediatric) ICD-9: 327.23 ICD-10: G47.33 08/06/2017 Active Encounter for screen ing for other musculoskeletal disorder ICD-9: 733.90 ICD-10: Z13.828 03/18/2017 Active Transient alteration of awareness ICD-9: 780.02 ICD-10: R40.4 03/18/2017 Active Acute recurrent maxi llary sinusitis ICD-9: 461.0 ICD-10: J01.01 12/29/2016 Active Enterocolitis due to Clostridium difficile ICD-9: 008.45 ICD-10: A04.7 08/12/2016 Active Hypothyroidism, unsp ecified ICD-9: 244.9 ICD-10: E03.9 06/25/2015 Active Lyme disease, unspec ified ICD-9: 088.81 ICD-10: A69.20 04/09/2015 Active Generalized abdomina l rigidity ICD-9: 789.47 ICD-10: R19.37 04/07/2016 Active Abnormal results of thyroid function studies ICD-9: 794.5 ICD-10: R94.6 06/05/2015 Active Other conditions ass ociated with Lyme disease ICD-9: 088.81 ICD-10: A69.29 04/09/2015 Active Tachycardia, unspeci fied ICD-9: 785.0 ICD-10: R00.0 12/26/2015 Active Benign lipomatous ne oplasm of skin and subcutaneous tissue of other sites ICD-9: 214.1 ICD-10: D17.39 09/23/2015 Active Hypothryroidism Unknown 06/26/2015 Active HYPOTHYROIDISM ICD-9: 244.9 06/25/2015 Active Elevated TSH ICD-9: 794.5 06/05/2015 Active Atrial fibrillation Unknown 04/10/2015 Active Hypertension Unknown 04/10/2015 Active lymes disease Unknown 04/10/2015 Active CAD (coronary artery disease) ICD-9: 414.00 04/09/2015 Active ESSENTIAL HYPERTENSION ICD-9: 401.9 04/09/2015 Active Low back pain ICD-9: 724.2 04/09/2015 Active Lyme disease ICD-9: 088.81 04/09/2015 Active 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 04/09/2015 Active Medications Medication Codes Instruc tions Start Date Stop Date Sta tus Fill Instructions prednisone 5 mg tabl ets in a dose pack RxNorm: 722772 1 Tablet(s) PO UD 05/19/2019 05/24/2019 In active 6-5-4-3-2-1 Prozac 10 mg capsule RxNorm: 195854 1 Capsule(s) PO daily 05/06/2019 09/02/2019 Active Prozac 10 mg capsule RxNorm: 300298 1 Capsule(s) PO daily 05/06/2019 05/05/2019 Inactive estradiol 0.01% (0.1 mg/gram) vaginal cream RxNorm: 005684 1 GRAM(S) VAG BIW 03/31/2019 03/24/2020 Ac tive estradiol 0.01% (0.1 mg/gram) vaginal cream RxNorm: 405396 1 GRAM(S) VAG BIW 02/21/2019 08/13/2020 Ac tive Ventolin HFA 90 mcg/ actuation aerosol inhaler RxNorm: 2045044 1 INH TID as needed dyspnea 01/24/2019 08/21/2019 Active Fioricet 50 mg-300 m g-40 mg capsule RxNorm: 8405651 1 Capsule(s) PO Q8 P RN as needed for headache 01/10/2019 No Stop Date Active dexamethasone 4 mg t ablet RxNorm: 779446 1 Tablet(s) PO daily 01/10/2019 01/09/2019 Inactive to be started on 3--19 Kenalog 40 mg/mL sadiq pension for injection RxNorm: 6039073 Milliliter(s) Inj 01/10/2019 01/10/2019 In active dexamethasone 4 mg t ablet RxNorm: 790723 1 Tablet(s) PO daily 01/10/2019 01/14/2019 Inactive to be started on 01-11-19 cyclobenzaprine 5 mg tablet RxNorm: 217473 1 Tablet(s) PO TID 12/14/2018 12/20/2018 Inactive cyclobenzaprine 5 mg tablet RxNorm: 074084 1 Tablet(s) PO TID 12/14/2018 12/13/2018 Inactive [place] Thyroid 90 mg tablet RxNorm: 957825 Tablet(s) 1/2 TABLET( S) PO DAILY 11/18/2018 02/10/2020 Ac tive [place] Thyroid 60 mg tablet RxNorm: 688350 1 Tablet(s) PO 3 x we jenise Dominguez 11/17/2018 11/17/2018 In active hold until she is ready to refill [place] Thyroid 30 mg tablet RxNorm: 921914 1 Tablet(s) PO 4 time s a week Thu SAT 11/17/2018 11/16/2018 Inactive Please fill now- she will use her curren t supply of 60mg until she needs refill [place] Thyroid 30 mg tablet RxNorm: 299138 1 Tablet(s) PO 4 time s a week Thu SAT 11/17/2018 11/17/2018 Inactive Please fill now- she will use her curren t supply of 60mg until she needs refill Flagyl 500 mg tablet RxNorm: 117769 1 Tablet(s) PO TID 2018 10/17/2018 Inactive Flagyl 500 mg tablet RxNorm: 508428 1 Tablet(s) PO TID 10/06/2018 10/05/2018 Inactive Flagyl 500 mg tablet RxNorm: 190144 1 Tablet(s) PO TID 10/06/2018 10/10/2018 Inactive cefdinir 300 mg capsule RxNorm: 505780 1 Capsule(s) PO BID 09/29/2018 10/05/2018 Inactive cefdinir 300 mg capsule RxNorm: 972786 1 Capsule(s) PO BID 09/29/2018 09/28/2018 Inactive estradiol 0.01% (0.1 mg/gram) vaginal cream RxNorm: 863498 1 Gram(s) VAG BIW 09/15/2018 02/20/2019 In active Imitrex 50 mg tablet RxNorm: 073940 TAKE WITH ONSET OF MIGRAINE- MAY TAKE AN ADDITIONAL DOSE IF NO RELIEF OF HEADACHE IN 1 HOUR- MAX OF 3 DOSES IN 24 HOURS Tablet(s) 06/14/2018 No Stop Date Active betamethasone gwendolyn te 0.1 % topical cream RxNorm: 180373 1 Application TOP TID 06/01/2018 06/10/2018 In active dexamethasone 4 mg t ablet RxNorm: 324009 1 Tablet(s) PO daily 06/01/2018 06/05/2018 Inactive Kenalog 40 mg/mL sadiq pension for injection RxNorm: 0745604 1.5 Milliliter(s) In j 05/24/2018 05/24/2018 In active amitriptyline 10 mg tablet RxNorm: 415348 1/2 TO 1 TABLET(S) PO QPM 01/21/2018 09/14/2018 Inactive [place] Thyroid 60 mg tablet RxNorm: 754876 1 Tablet(s) PO daily 01/12/2018 11/16/2018 Inactive carvedilol 3.125 mg tablet RxNorm: 204643 1 Tablet(s) PO BID 10/12/2017 No Stop Date Active Fiorinal-Codeine #3 30 mg-50 mg-325 mg-40 mg capsule RxNorm: 668075 1 Capsule(s) PO BID 10/12/2017 11/10/2017 Inactive progesterone microni zed 100 mg capsule RxNorm: 379030 1 Capsule(s) PO daily on days 1- 25 of each month 10/12/2017 01/11/2018 Inactive [place] Thyroid 90 mg tablet RxNorm: 615399 1/2 Tablet(s) PO melinda y 1/2 TABLET(S) PO DAILY 08/06/2017 01/11/2018 Inactive [place] Thyroid 90 mg tablet RxNorm: 263292 1/2 TABLET(S) PO DAILY 07/14/2017 08/05/2017 Inactive Keppra 500 mg tablet RxNorm: 051766 1 Tablet(s) PO BID 05/13/2017 08/05/2017 Inactive Deplin (algal oil) 1 5 mg-90.314 mg capsule RxNorm: TAKE ONE CAPSULE BY MOUTH O NE TIME DAILY 05/13/2017 01/11/2018 Inactive Keppra 250 mg tablet RxNorm: 945664 1 Tablet(s) PO daily 04/23/2017 04/22/2017 Inactive take 1 tab qd x 1 week then increase to BID Keppra 250 mg tablet RxNorm: 741704 1 Tablet(s) PO daily 04/23/2017 05/12/2017 Inactive take 1 tab qd x 1 week then increase to BID cyclobenzaprine 5 mg tablet RxNorm: 530289 1 Tablet(s) PO TID as needed 02/03/2017 02/22/2017 In active cyclobenzaprine 5 mg tablet RxNorm: 717954 1 Tablet(s) PO TID as needed 02/03/2017 02/02/2017 In active [place] Thyroid 90 mg tablet RxNorm: 352078 1/2 Tablet(s) PO daily 11/19/2016 03/18/2017 Inactive amitriptyline 10 mg tablet RxNorm: 363901 1/2 to 1 Tablet(s) PO QPM 11/19/2016 11/13/2017 Inactive fluconazole 50 mg ta blet RxNorm: 458089 1 Tablet(s) PO daily 08/20/2016 09/02/2016 Inactive [place] Thyroid 90 mg tablet RxNorm: 856202 1/2 Tablet(s) PO daily 08/11/2016 11/18/2016 Inactive Flagyl 500 mg tablet RxNorm: 969493 1 Tablet(s) PO TID 07/28/2016 01/11/2018 Inactive Flagyl 500 mg tablet RxNorm: 273286 1 Tablet(s) PO TID 07/17/2016 07/27/2016 Inactive amitriptyline 10 mg tablet RxNorm: 180946 1/2 to 1 Tablet(s) PO QPM 07/03/2016 10/30/2016 Inactive metronidazole 500 mg tablet RxNorm: 978240 1 Tablet(s) PO QID 07/03/2016 07/12/2016 Inactive amitriptyline 25 mg tablet RxNorm: 037442 1/2 -1 Tablet(s) PO Q HS as needed insomnia 06/26/2016 07/02/2016 Inactive vancomycin 125 mg ca psule RxNorm: 855831 1 Capsule(s) PO QID 06/20/2016 06/29/2016 Inactive [place] Thyroid 30 mg tablet RxNorm: 901842 1.5 Tablet(s) PO daily 06/20/2016 06/19/2016 Inactive [place] Thyroid 30 mg tablet RxNorm: 299230 1.5 Tablet(s) PO daily 06/20/2016 08/10/2016 Inactive fluconazole 50 mg ta blet RxNorm: 507832 1 Tablet(s) PO daily 06/16/2016 08/19/2016 Inactive amitriptyline 25 mg tablet RxNorm: 321381 1/2 -1 Tablet(s) PO Q HS as needed insomnia 06/12/2016 06/11/2016 Inactive amitriptyline 25 mg tablet RxNorm: 207254 1/2 -1 Tablet(s) PO Q HS as needed insomnia 06/12/2016 06/25/2016 Inactive vancomycin 125 mg ca psule RxNorm: 980024 1 Capsule(s) PO QID 06/12/2016 06/19/2016 Inactive fluconazole 50 mg ta blet RxNorm: 101291 1 Tablet(s) PO daily 06/12/2016 06/15/2016 Inactive Diflucan 150 mg tablet RxNorm: 649727 1 Tablet(s) PO daily 06/05/2016 06/09/2016 Inactive Deplin (algal oil) 1 5 mg-90.314 mg capsule RxNorm: 1 Capsule(s) PO daily 06/05/2016 06/04/2016 In active Diflucan 150 mg tablet RxNorm: 736934 1 Tablet(s) PO daily 06/05/2016 06/04/2016 Inactive Deplin (algal oil) 1 5 mg-90.314 mg capsule RxNorm: 1 Capsule(s) PO daily 06/05/2016 05/12/2017 In active nystatin 500,000 uni t tablet RxNorm: 933185 4 Tablet(s) PO daily 05/21/2016 09/17/2016 Inactive Vitamin D3 5,000 uni t tablet RxNorm: 063764 Tablet(s) PO daily 05/07/2016 No Stop Date Active nystatin 500,000 uni t tablet RxNorm: 976544 1 Tablet(s) PO Q4H 05/07/2016 05/20/2016 Inactive fluconazole 100 mg t ablet RxNorm: 080541 1 Tablet(s) PO daily 05/07/2016 06/11/2016 Inactive progesterone microni zed 100 mg capsule RxNorm: 654602 3 Capsule(s) PO daily on days 1- 25 of each month 05/07/2016 2017 Inactive metronidazole 500 mg tablet RxNorm: 569008 1 Tablet(s) PO TID 04/30/2016 05/09/2016 Inactive metronidazole 500 mg tablet RxNorm: 193652 1 Tablet(s) PO TID 04/30/2016 04/29/2016 Inactive vancomycin 125 mg ca psule RxNorm: 363748 1 Capsule(s) PO QID 04/29/2016 05/08/2016 Inactive vancomycin 125 mg ca psule RxNorm: 964958 1 Capsule(s) PO QID 04/29/2016 04/28/2016 Inactive Flagyl 500 mg tablet RxNorm: 852765 1 Tablet(s) PO TID 04/09/2016 04/08/2016 Inactive Flagyl 500 mg tablet RxNorm: 814846 1 Tablet(s) PO TID 04/09/2016 04/22/2016 Inactive carvedilol 3.125 mg tablet RxNorm: 472795 1 Tablet(s) PO BID 04/08/2016 2017 Inactive [place] Thyroid 60 mg tablet RxNorm: 616617 Tablet(s) PO 1 Tablet (s) daily 01/31/2016 06/19/2016 In active Pt request 90 day supply 11/23/2015 11:1 1:54 AM [place] Thyroid 30 mg tablet RxNorm: 217254 1 Tablet(s) daily 01/28/2016 01/30/2016 Inactive Pt request 90 day supply 11/23/2015 11:1 1:54 AM [place] Thyroid 30 mg tablet RxNorm: 280179 1 Tablet(s) daily 01/21/2016 01/27/2016 Inactive Pt request 90 day supply 11/23/2015 11:1 1:54 AM [place] Thyroid 30 mg tablet RxNorm: 896232 Tablet(s) TAKE ONE AN D ONE-HALF (45 MG) TABLET BY MOUTH EVERY DAY 01/02/2016 01/20/2016 Inactive Pt request 90 day supply 11/23/2015 11:11:54 AM Xylocaine 20 mg/mL ( 2 %) injection solution RxNorm: 5767162 2.5 Milliliter(s) In j BID with cefepime 12/27/2015 01/25/2016 Inactive cefepime 1 gram solu tion for injection RxNorm: 0615738 Inj 12/1012/27/2015 Inactive [place] Thyroid 30 mg tablet RxNorm: 049854 TAKE ONE TABLET BY [facility] EVERY DAY 11/23/2015 01/01/2016 In active Pt request 90 day supply 11/23/2015 11:1 1:54 AM Voltaren 1 % topical gel RxNorm: 215289 2 Gram(s) TOP QID 09/24/2015 12/26/2015 Inactive cyclobenzaprine 10 m g tablet RxNorm: 893690 1 Tablet(s) PO Q6 as needed 08/27/2015 05/06/2016 In active [place] Thyroid 30 mg tablet RxNorm: 422359 1 Tablet(s) PO daily 06/21/2015 06/20/2015 Inactive [place] Thyroid 30 mg tablet RxNorm: 891336 1 Tablet(s) PO daily 06/21/2015 11/22/2015 Inactive Synthroid 25 mcg tablet RxNorm: 239346 1 Tablet(s) PO daily 06/07/2015 06/06/2015 Inactive KASEY-1 Synthroid 25 mcg tablet RxNorm: 834332 1 Tablet(s) PO daily 06/07/2015 06/20/2015 Inactive KASEY-1 ofloxacin 0.3 % ear drops RxNorm: 136199 1-2 Drop(s) OTIC OU Q 4H as needed No Start Date Active Aspirin Low Dose 81 mg tablet,delayed release RxNorm: 246488 1 Tablet(s) PO daily No Start Date Active tyrosine (bulk) powder RxNorm: 1 Miscellaneous dash every am No Start Date Active arginine (L-arginine ) oral RxNorm: 1091 oral No Sta rt Date Active glutathione RxNorm: 4890 miscellaneous No Start Date Active Plaquenil 200 mg tablet RxNorm: 150934 1 Tablet(s) PO BID No Start Date 05/19/2016 Inactive fluconazole 100 mg t ablet RxNorm: 739993 1/2 Tablet(s) PO daily No Start Date 05/06/2016 Inactive fluconazole 150 mg t ablet RxNorm: 363619 1 Tablet(s) PO QW x4 No Start Date 12/26/2015 Inactive progesterone microni zed 100 mg capsule RxNorm: 518129 2 Capsule(s) PO daily No Start Date 05/06/2016 Inactive nystatin 500,000 uni t tablet RxNorm: 561825 1 Tablet(s) PO QID No Start Date 05/06/2016 Inactive cyclobenzaprine 10 m g tablet RxNorm: 998583 1 Tablet(s) PO Q6 as needed No Start Date 08/26/2015 Inactive vitamin K oral RxNorm: 8308 oral No Start Date 12/26/2015 Inactive carvedilol 3.125 mg tablet RxNorm: 031374 1 Tablet(s) PO daily No Start Date 04/07/2016 Inactive lisinopril 5 mg tablet RxNorm: 854626 1 Tablet(s) PO daily No Start Date 05/12/2017 Inactive azithromycin 250 mg tablet RxNorm: 302574 1 Tablet(s) PO daily will incrase to 2 per day No Start Date 12/26/2015 Inactive Probiotic 4X oral RxNorm: 0187534 oral No Start Date 01/07/2016 Inactive Imitrex 50 mg tablet RxNorm: 722641 TAKE WITH ONSET OF MIGRAINE- MAY TAKE AN ADDITIONAL DOSE IF NO RELIEF OF HEADACHE IN 1 HOUR- MAX OF 3 DOSES IN 24 HOURS No Start Date 06/13/2018 Inactive Vitamin D3 1,000 uni t tablet RxNorm: 372776 Tablet(s) PO daily No Start Date 05/06/2016 Inactive progesterone microni zed 100 mg capsule RxNorm: 486884 3 Capsule(s) PO daily rx from [facility] No Start Date 12/26/2015 Inactive lorazepam 0.5 mg tablet RxNorm: 313341 1/2-1 Tablet(s) PO daily as needed No Start Date 03/10/2016 Inactive Multiple Vitamin oral RxNorm: 59500 oral No Start Date 05/06/2016 Inactive Medication Administered Medication Codes Instruc tions Start Date Status Kenalog 40 mg/mL suspension for injection RxNorm: 8420759 Milliliter 01/10/2019 No longer Active Kenalog 40 mg/mL suspension for injection RxNorm: 5083811 1.5Milliliter 05/24/2018 No longer Active cefepime 1 gram solution for injection RxNorm: 9022903 12/27/2015 No longer A ctive Immunizations No Immunization data Assessments Condition Codes Effectiv e Dates Atrophy of thyroid (acquired) ICD-10 : E03.4 ICD-9: 244.8 07/07/2019 Essential (primary) hypertension ICD -10: I10 ICD-9: 401.9 05/25/2019 Allergic contact dermatitis due to plants, except food ICD-10: L23.7 ICD-9: 692.6 05/19/2019 Headache ICD-10: R51 ICD-9: 784.0 01/24/2019 Other forms of dyspnea ICD-10: R06.0 9 ICD-9: 786.09 01/24/2019 Nasal congestion ICD-10: R09.81 ICD-9: 478.19 01/10/2019 Other specified bacterial intestinal infections ICD-10: A04.8 ICD-9: 008.41 11/25/2018 Enterocolitis due to Clostridium difficile, recurrent ICD-10: A04.71 ICD-9: 008.45 11/25/2018 Low back pain ICD-10: M54.5 ICD-9: 724.2 09/15/2018 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 ICD-9: 625.8 09/15/2018 Encounter for general adult medical exam ination with abnormal findings ICD-10: Z00.01 ICD-9: V70.0 09/10/2018 Dizziness and giddiness ICD-10: R42 ICD-9: 780.4 06/01/2018 Obstructive sleep apnea (adult) (pediatric) ICD-10: G47.33 ICD-9: 327.23 05/19/2018 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, intractable, without status epilepticus ICD-10: G40.319 ICD-9: 345.11 05/13/2017 Transient alteration of awareness IC D-10: R40.4 ICD-9: 780.02 03/18/2017 Encounter for screening for other musculoskeletal diso rder ICD-10: Z13.828 ICD-9: 733.90 03/18/2017 Acute recurrent maxillary sinusitis ICD-10: J01.01 ICD-9: 461.0 12/29/2016 Enterocolitis due to Clostridium difficile ICD-10: A04.7 ICD-9: 008.45 08/13/2016 Hypothyroidism, unspecified ICD-10: E03.9 ICD-9: 244.9 07/03/2016 Lyme disease, unspecified ICD-10: A6 9.20 ICD-9: 088.81 05/07/2016 Diarrhea, unspecified ICD-10: R19.7 ICD-9: 787.91 04/08/2016 Generalized abdominal rigidity ICD-1 0: R19.37 ICD-9: 789.47 04/08/2016 Other conditions associated with Lyme disease ICD-10: A69.29 ICD-9: 088.81 03/11/2016 Abnormal results of thyroid function studies ICD-10: R94.6 ICD-9: 794.5 03/11/2016 Tachycardia, unspecified ICD-10: R00 .0 ICD-9: 785.0 12/27/2015 Benign lipomatous neoplasm of skin and s ubcutaneous tissue of other sites ICD-10: D17.39 ICD-9: 214.1 09/24/2015 Lyme disease ICD-9: 088.81 07/10/2015 Low back pain ICD-9: 724.2 06/26/2015 HYPOTHYROIDISM ICD-9: 244.9 06/26/2015 Elevated TSH ICD-9: 794.5 06/06/2015 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 04/10/2015 CAD (coronary artery disease) ICD-9: 414.0 0 04/10/2015 ESSENTIAL HYPERTENSION ICD-9: 401.9 04/10/2015 Reason For Visit Reason For Visit Effective Dates Notes hypertension 05/25/2019 rash 05/19/2019 hypertension 01/24/2019 headache 01/10/2019 diarrhea 11/25/2018 hypertension 09/15/2018 Annual Medicare Wellness Exam 09/10/2018 rash 06/01/2018 rash 05/24/2018 hypertension 05/19/2018 hypertension 01/12/2018 headache 10/12/2017 hypertension 08/06/2017 hypertension 05/13/2017 Annual Medicare Wellness Exam 03/19/2017 hypertension 03/18/2017 fatigue 01/27/2017 Hospital Follow Up 12/29/2016 hypertension 11/19/2016 hypertension 08/13/2016 hypertension 07/03/2016 hypertension 05/07/2016 hypertension 04/08/2016 Annual Medicare Wellness Exam 03/11/2016 hypertension 12/27/2015 back pain 09/24/2015 back pain 06/26/2015 back pain 04/10/2015 has MRI in documents. She is doing stretches/yoga Results Observation Observation Code Item Item Code Result Date Free T4 Qis185 FREE T4 0.64 ng/dL 07/08/2019 Tsh Ord6 TSH (3rd IS) 1.62 uIU/mL 07/08/2019 Lipid Ord30 CHOL 198 mg/dL 07/08/2019 Lipid Ord30 HDL 81.0 mg/dl 07/08/2019 Lipid Ord30 TRIG 59 mg/dL 07/08/2019 Lipid Ord30 LDL 105 mg/dL 07/08/2019 Lipid Ord30 C/HDL 2.4 Ratio 07/08/2019 Comp Metabolic Vip776 NA 142 mEq/L 07/08/2019 Comp Metabolic Qmp214 K 4.2 mEq/L 07/08/2019 Comp Metabolic Kbl313 CL 105 mEq/L 07/08/2019 Comp Metabolic Zro486 CO2 28.0 mEq/L 07/08/2019 Comp Metabolic Znh527 AN ION GAP 13 07/08/2019 Comp Metabolic Gqx478 GL UCOSE 86 mg/dL 07/08/2019 Comp Metabolic Qpp352 Cr eat 0.6 mg/dL 07/08/2019 Comp Metabolic Xnf035 eG FR 95 ml/min/1.73m2 07/08 Comp Metabolic Tzz247 BUN 11 mg/dL 07/08/2019 Comp Metabolic Thh830 B/ C Ratio 17.2 Ratio 07/08/2019 Comp Metabolic Kzw284 CA LCIUM 8.9 mg/dL 07/08/2019 Comp Metabolic Umi301 AL K PHOS 60 U/L 07/08/2019 Comp Metabolic Zgx789 T(SGOT) 19 U/L 07/08/2019 Comp Metabolic Pvx025 AL T(SGPT) 16 U/L 07/08/2019 Comp Metabolic Ctg152 BI LI T 0.3 mg/dL 07/08/2019 Comp Metabolic Lwb812 AL BUMIN 3.8 g/dL 07/08/2019 Comp Metabolic Lrv643 TP RO 5.7 g/dL 07/08/2019 Comp Metabolic Beh939 GL OB 1.9 g/dL 07/08/2019 Comp Metabolic Tsf062 A/ G Ratio 2.0 Ratio 07/08/2019 Comp Metabolic Bfv482 Os mo 282 mOsmo 07/08/2019 Vitamin D 25 Oh Pgz9762 VITAMIN D, 25 HYDROXY 51.28 ng/mL 02/18/2019 Tsh Ord6 TSH (3rd IS) 0.59 uIU/mL 02/18/2019 Free T4 Imz892 FREE T4 0.64 ng/dL 02/18/2019 Lipid Ord30 CHOL 250 mg/dL 02/18/2019 Lipid Ord30 HDL 84.0 mg/dl 02/18/2019 Lipid Ord30 TRIG 94 mg/dL 02/18/2019 Lipid Ord30 LDL 147 mg/dL 02/18/2019 Lipid Ord30 C/HDL 3.0 Ratio 02/18/2019 Iron Ord72 Iron 93 ug/dl 02/18/2019 Cbc With Differential Ord2 WBC 4.76 K/ul 02/18/2019 Cbc With Differential Ord2 RBC 4.44 M/ul 02/18/2019 Cbc With Differential Ord2 HGB 13.5 g/dl 02/18/2019 Cbc With Differential Ord2 HCT 42.6 % 02/18/2019 Cbc With Differential Ord2 Neut% 53.6 % 02/18/2019 Cbc With Differential Ord2 MCV 95.9 fl 02/18/2019 Cbc With Differential Ord2 Lymph% 27.3 % 02/18/2019 Cbc With Differential Ord2 MCH 30.4 pg 02/18/2019 Cbc With Differential Ord2 [place]% 15.5 % 02/18/2019 Cbc With Differential Ord2 MCHC 31.7 pg 02/18/2019 Cbc With Differential Ord2 Eos% 3.2 % 02/18/2019 Cbc With Differential Ord2 Baso% 0.4 % 02/18/2019 Cbc With Differential Ord2 PLT 297 K/ul 02/18/2019 Cbc With Differential Ord2 RDW 18.4 % 02/18/2019 Cbc With Differential Ord2 Neut ABS# 2.55 K/ul 02/18/2019 Cbc With Differential Ord2 Lymph ABS# 1.30 K/ul 02/18/2019 Cbc With Differential Ord2 [place] ABS# 0.7 K/ul 02/18/2019 Cbc With Differential Ord2 Eos ABS# 0.2 K/ul 02/18/2019 Cbc With Differential Ord2 Baso ABS# 0.0 K/ul 02/18/2019 Ferritin Ord22 FERRITIN 31.1 ng/mL 02/18/2019 Comp Metabolic Tdx727 NA 145 mEq/L 06/14/2018 Comp Metabolic Nws363 K 4.0 mEq/L 06/14/2018 Comp Metabolic Lrl906 CL 106 mEq/L 06/14/2018 Comp Metabolic Yll026 CO2 31.0 mEq/L 06/14/2018 Comp Metabolic Whf835 AN ION GAP 12 06/14/2018 Comp Metabolic Ppn672 GL UCOSE 88 mg/dL 06/14/2018 Comp Metabolic Cik262 Cr eat 0.7 mg/dL 06/14/2018 Comp Metabolic Qpa002 eG FR 92 ml/min/1.73m2 06/14 Comp Metabolic Mpx507 BUN 9 mg/dL 06/14/2018 Comp Metabolic Yey901 B/ C Ratio 13.6 Ratio 06/14/2018 Comp Metabolic Kox507 CA LCIUM 9.0 mg/dL 06/14/2018 Comp Metabolic Xnb547 AL K PHOS 36 U/L 06/14/2018 Comp Metabolic Vsf818 T(SGOT) 21 U/L 06/14/2018 Comp Metabolic Rar275 AL T(SGPT) 22 U/L 06/14/2018 Comp Metabolic Mxy085 BI LI T 0.3 mg/dL 06/14/2018 Comp Metabolic Epe236 AL BUMIN 3.8 g/dL 06/14/2018 Comp Metabolic Rso011 TP RO 5.8 g/dL 06/14/2018 Comp Metabolic Lxw077 GL OB 2.0 g/dL 06/14/2018 Comp Metabolic Gwt212 A/ G Ratio 2.0 Ratio 06/14/2018 Comp Metabolic Pgf982 Os mo 287 mOsmo 06/14/2018 Free T4 Gtd439 FREE T4 0.66 ng/dL 06/14/2018 Tsh Ord6 TSH (3rd IS) 2.94 uIU/mL 06/14/2018 Lipid Ord30 CHOL 242 mg/dL 06/14/2018 Lipid Ord30 HDL 85.0 mg/dl 06/14/2018 Lipid Ord30 TRIG 83 mg/dL 06/14/2018 Lipid Ord30 LDL 140 mg/dL 06/14/2018 Lipid Ord30 C/HDL 2.8 Ratio 06/14/2018 Cbc With Differential Ord2 WBC 4.25 K/ul 06/14/2018 Cbc With Differential Ord2 RBC 4.59 M/ul 06/14/2018 Cbc With Differential Ord2 HGB 13.7 g/dl 06/14/2018 Cbc With Differential Ord2 HCT 41.7 % 06/14/2018 Cbc With Differential Ord2 Neut% 47.6 % 06/14/2018 Cbc With Differential Ord2 MCV 90.8 fl 06/14/2018 Cbc With Differential Ord2 Lymph% 32.9 % 06/14/2018 Cbc With Differential Ord2 MCH 29.8 pg 06/14/2018 Cbc With Differential Ord2 [place]% 13.9 % 06/14/2018 Cbc With Differential Ord2 MCHC 32.9 pg 06/14/2018 Cbc With Differential Ord2 Eos% 4.9 % 06/14/2018 Cbc With Differential Ord2 PLT 227 K/ul 06/14/2018 Cbc With Differential Ord2 Baso% 0.7 % 06/14/2018 Cbc With Differential Ord2 RDW 15.6 % 06/14/2018 Cbc With Differential Ord2 Neut ABS# 2.02 K/ul 06/14/2018 Cbc With Differential Ord2 Lymph ABS# 1.40 K/ul 06/14/2018 Cbc With Differential Ord2 [place] ABS# 0.6 K/ul 06/14/2018 Cbc With Differential Ord2 Eos ABS# 0.2 K/ul 06/14/2018 Cbc With Differential Ord2 Baso ABS# 0.0 K/ul 06/14/2018 Free T4 Lmd239 FREE T4 0.63 ng/dL 01/05/2018 Lipid Ord30 CHOL 246 mg/dL 01/05/2018 Lipid Ord30 HDL 79.0 mg/dl 01/05/2018 Lipid Ord30 TRIG 124 mg/dL 01/05/2018 Lipid Ord30 LDL 142 mg/dL 01/05/2018 Lipid Ord30 C/HDL 3.1 Ratio 01/05/2018 Tsh Ord6 TSH (3rd IS) 1.48 uIU/mL 01/05/2018 Tsh Ord6 hTSH II 2.03 uIU/mL 08/07/2017 Comp Metabolic Wty482 NA 142 mEq/L 08/07/2017 Comp Metabolic Bbg525 K 4.1 mEq/L 08/07/2017 Comp Metabolic Mha848 CL 105 mEq/L 08/07/2017 Comp Metabolic Rns162 CO2 27.0 mEq/L 08/07/2017 Comp Metabolic Qrq612 AN ION GAP 14 08/07/2017 Comp Metabolic Amj959 GL UCOSE 89 mg/dL 08/07/2017 Comp Metabolic Xer527 Cr eat 0.7 mg/dL 08/07/2017 Comp Metabolic Ger561 eG FR 86 ml/min/1.73m2 08/07 Comp Metabolic Wgv021 BUN 16 mg/dL 08/07/2017 Comp Metabolic Pyf374 B/ C Ratio 22.9 Ratio 08/07/2017 Comp Metabolic Enb037 CA LCIUM 9.8 mg/dL 08/07/2017 Comp Metabolic Pkx722 AL K PHOS 41 U/L 08/07/2017 Comp Metabolic Pef686 T(SGOT) 26 U/L 08/07/2017 Comp Metabolic Daq472 AL T(SGPT) 21 U/L 08/07/2017 Comp Metabolic Zhv569 BI LI T 0.5 mg/dL 08/07/2017 Comp Metabolic Fvr225 AL BUMIN 4.3 g/dL 08/07/2017 Comp Metabolic Dji889 TP RO 6.6 g/dL 08/07/2017 Comp Metabolic Wks026 GL OB 2.3 g/dL 08/07/2017 Comp Metabolic Rlm298 A/ G Ratio 1.9 Ratio 08/07/2017 Comp Metabolic Dif314 Os mo 284 mOsmo 08/07/2017 Free T4 Ppr206 FREE T4 0.64 ng/dL 08/07/2017 Lipid Ord30 CHOL 231 mg/dL 08/07/2017 Lipid Ord30 HDL 86.0 mg/dl 08/07/2017 Lipid Ord30 TRIG 82 mg/dL 08/07/2017 Lipid Ord30 LDL 129 mg/dL 08/07/2017 Lipid Ord30 C/HDL 2.7 Ratio 08/07/2017 Cbc With Differential Ord2 WBC 4.25 K/ul 08/07/2017 Cbc With Differential Ord2 RBC 4.66 M/ul 08/07/2017 Cbc With Differential Ord2 HGB 14.1 g/dl 08/07/2017 Cbc With Differential Ord2 HCT 42.1 % 08/07/2017 Cbc With Differential Ord2 Neut% 45.1 % 08/07/2017 Cbc With Differential Ord2 Lymph% 35.1 % 08/07/2017 Cbc With Differential Ord2 MCV 90.3 fl 08/07/2017 Cbc With Differential Ord2 MCH 30.3 pg 08/07/2017 Cbc With Differential Ord2 [place]% 13.9 % 08/07/2017 Cbc With Differential Ord2 Eos% 5.4 % 08/07/2017 Cbc With Differential Ord2 MCHC 33.5 pg 08/07/2017 Cbc With Differential Ord2 PLT 271 K/ul 08/07/2017 Cbc With Differential Ord2 Baso% 0.5 % 08/07/2017 Cbc With Differential Ord2 RDW 14.5 % 08/07/2017 Cbc With Differential Ord2 Neut ABS# 1.92 K/ul 08/07/2017 Cbc With Differential Ord2 Lymph ABS# 1.49 K/ul 08/07/2017 Cbc With Differential Ord2 [place] ABS# 0.6 K/ul 08/07/2017 Cbc With Differential Ord2 Eos ABS# 0.2 K/ul 08/07/2017 Cbc With Differential Ord2 Baso ABS# 0.0 K/ul 08/07/2017 Cbc With Differential Ord2 WBC 4.46 K/ul 11/20/2016 Cbc With Differential Ord2 RBC 4.39 M/ul 11/20/2016 Cbc With Differential Ord2 HGB 13.4 g/dl 11/20/2016 Cbc With Differential Ord2 HCT 40.5 % 11/20/2016 Cbc With Differential Ord2 Neut% 47.1 % 11/20/2016 Cbc With Differential Ord2 Lymph% 36.3 % 11/20/2016 Cbc With Differential Ord2 MCV 92.3 fl 11/20/2016 Cbc With Differential Ord2 MCH 30.5 pg 11/20/2016 Cbc With Differential Ord2 [place]% 10.8 % 11/20/2016 Cbc With Differential Ord2 MCHC 33.1 pg 11/20/2016 Cbc With Differential Ord2 Eos% 5.4 % 11/20/2016 Cbc With Differential Ord2 Baso% 0.4 % 11/20/2016 Cbc With Differential Ord2 PLT 243 K/ul 11/20/2016 Cbc With Differential Ord2 RDW 14.6 % 11/20/2016 Cbc With Differential Ord2 Neut ABS# 2.10 K/ul 11/20/2016 Cbc With Differential Ord2 Lymph ABS# 1.62 K/ul 11/20/2016 Cbc With Differential Ord2 [place] ABS# 0.5 K/ul 11/20/2016 Cbc With Differential Ord2 Eos ABS# 0.2 K/ul 11/20/2016 Cbc With Differential Ord2 Baso ABS# 0.0 K/ul 11/20/2016 Free T4 Wvs503 FREE T4 0.80 ng/dL 11/20/2016 Tsh Ord6 hTSH II 1.35 uIU/mL 11/20/2016 Comp Metabolic Qho931 NA 139 mEq/L 11/20/2016 Comp Metabolic Slv691 K 3.9 mEq/L 11/20/2016 Comp Metabolic Iej688 CL 103 mEq/L 11/20/2016 Comp Metabolic Fwl772 CO2 30.0 mEq/L 11/20/2016 Comp Metabolic Svy725 AN ION GAP 10 11/20/2016 Comp Metabolic Ran408 GL UCOSE 85 mg/dL 11/20/2016 Comp Metabolic Kta440 Cr eat 0.7 mg/dL 11/20/2016 Comp Metabolic Nul954 eG FR 93 ml/min/1.73m2 11/20 Comp Metabolic Zdg340 BUN 12 mg/dL 11/20/2016 Comp Metabolic Izw286 B/ C Ratio 18.2 Ratio 11/20/2016 Comp Metabolic Hyj878 CA LCIUM 9.1 mg/dL 11/20/2016 Comp Metabolic Odc656 AL K PHOS 34 U/L 11/20/2016 Comp Metabolic Luc838 T(SGOT) 18 U/L 11/20/2016 Comp Metabolic Mzd916 AL T(SGPT) 14 U/L 11/20/2016 Comp Metabolic Isx857 BI LI T 0.5 mg/dL 11/20/2016 Comp Metabolic Rvu115 AL BUMIN 4.2 g/dL 11/20/2016 Comp Metabolic Ydn233 TP RO 6.3 g/dL 11/20/2016 Comp Metabolic Rqf597 GL OB 2.1 g/dL 11/20/2016 Comp Metabolic Kbd559 A/ G Ratio 2.0 Ratio 11/20/2016 Comp Metabolic Jhh123 Os mo 277 mOsmo 11/20/2016 Lipid Ord30 CHOL 189 mg/dL 11/20/2016 Lipid Ord30 HDL 81.0 mg/dl 11/20/2016 Lipid Ord30 TRIG 77 mg/dL 11/20/2016 Lipid Ord30 LDL 93 mg/dL 11/20/2016 Lipid Ord30 C/HDL 2.3 Ratio 11/20/2016 Testosterone Free Direct [id number] FREE TESTOSTERONE 0.7 pg/mL 10/06/2016 Estradiol 327573 ESTRADI OL 5.9 pg/mL 10/03/2016 Cortisol 466870 CORTISOL 23 ug/dL 10/03/2016 Progesterone Zyf939 Prog 17.38 ng/mL 10/01/2016 Free T4 Luh707 FREE T4 0.66 ng/dL 08/13/2016 Tsh Ord6 hTSH II 0.99 uIU/mL 08/13/2016 Testosterone Free Direct [id number] FREE TESTOSTERONE <0.2 pg/mL 07/05/2016 Estradiol 968609 ESTRADI OL <5.0 pg/mL 07/03/2016 Progesterone Hdw411 Prog 23.37 ng/mL 07/02/2016 Tsh Ord6 hTSH II 0.24 uIU/mL 06/17/2016 Free T4 Wtm686 FREE T4 0.86 ng/dL 06/17/2016 Estradiol 644512 ESTRADI OL <5.0 pg/mL 05/21/2016 Comp Metabolic Ure195 NA 140 mEq/L 05/20/2016 Comp Metabolic Gms177 K 4.1 mEq/L 05/20/2016 Comp Metabolic Lev084 CL 106 mEq/L 05/20/2016 Comp Metabolic Wgx430 CO2 26.0 mEq/L 05/20/2016 Comp Metabolic Vrx229 AN ION GAP 12 05/20/2016 Comp Metabolic Tsd993 GL UCOSE 81 mg/dL 05/20/2016 Comp Metabolic Tfg486 Cr eat 0.5 mg/dL 05/20/2016 Comp Metabolic Trz805 eG FR 119 ml/min/1.73m2 05/09 Comp Metabolic Ztp526 BUN 15 mg/dL 05/20/2016 Comp Metabolic Ewb638 B/ C Ratio 28.3 Ratio 05/20/2016 Comp Metabolic Nex823 CA LCIUM 8.9 mg/dL 05/20/2016 Comp Metabolic Chn511 AL K PHOS 36 U/L 05/20/2016 Comp Metabolic Atz205 T(SGOT) 25 U/L 05/20/2016 Comp Metabolic Pek732 AL T(SGPT) 23 U/L 05/20/2016 Comp Metabolic Fku795 BI LI T 0.4 mg/dL 05/20/2016 Comp Metabolic Gjx194 AL BUMIN 3.7 g/dL 05/20/2016 Comp Metabolic Buk468 TP RO 5.9 g/dL 05/20/2016 Comp Metabolic Czl071 GL OB 2.2 g/dL 05/20/2016 Comp Metabolic Xpe633 A/ G Ratio 1.7 Ratio 05/20/2016 Comp Metabolic Tfx185 Os mo 279 mOsmo 05/20/2016 Progesterone Vig461 Prog 8.44 ng/mL 05/20/2016 Cbc With Differential Ord2 WBC 4.63 K/ul 05/20/2016 Cbc With Differential Ord2 RBC 4.30 M/ul 05/20/2016 Cbc With Differential Ord2 HGB 13.0 g/dl 05/20/2016 Cbc With Differential Ord2 HCT 38.6 % 05/20/2016 Cbc With Differential Ord2 Neut% 64.7 % 05/20/2016 Cbc With Differential Ord2 MCV 89.8 fl 05/20/2016 Cbc With Differential Ord2 Lymph% 18.4 % 05/20/2016 Cbc With Differential Ord2 [place]% 13.0 % 05/20/2016 Cbc With Differential Ord2 MCH 30.2 pg 05/20/2016 Cbc With Differential Ord2 MCHC 33.7 pg 05/20/2016 Cbc With Differential Ord2 Eos% 3.5 % 05/20/2016 Cbc With Differential Ord2 PLT 224 K/ul 05/20/2016 Cbc With Differential Ord2 Baso% 0.4 % 05/20/2016 Cbc With Differential Ord2 RDW 15.7 % 05/20/2016 Cbc With Differential Ord2 Neut ABS# 3.00 K/ul 05/20/2016 Cbc With Differential Ord2 Lymph ABS# 0.85 K/ul 05/20/2016 Cbc With Differential Ord2 [place] ABS# 0.6 K/ul 05/20/2016 Cbc With Differential Ord2 Eos ABS# 0.2 K/ul 05/20/2016 Cbc With Differential Ord2 Baso ABS# 0.0 K/ul 05/20/2016 Urinalysis Ord28 U-Color Yellow 05/20/2016 Urinalysis Ord28 U-Tasha ty Clear 05/20/2016 Urinalysis Ord28 U-Gluc Negative 05/20/2016 Urinalysis Ord28 U-Bili Negative 05/20/2016 Urinalysis Ord28 U-Ketone Negative 05/20/2016 Urinalysis Ord28 U-SG 1.015 05/20/2016 Urinalysis Ord28 U-Blood Negative 05/20/2016 Urinalysis Ord28 U-pH 7.5 05/20/2016 Urinalysis Ord28 U-Prote in Negative 05/20/2016 Urinalysis Ord28 U-Urobi lilo 0.2 E.U./dL E.U./dL Urinalysis Ord28 U-Nitri svetlana Negative 05/20/2016 Urinalysis Ord28 U-Leuk Negative 05/20/2016 Urinalysis Ord28 U-Bact None 05/20/2016 Urinalysis Ord28 U-Squam ous Epi 0-5 per/HPF 05/20/2016 Urinalysis Ord28 U-Cryst al None per/HPF 6 Urinalysis Ord28 U-Mucus None 05/20/2016 Urinalysis Ord28 U-Renal tubular epi None 05/20/2016 Urinalysis Ord28 U-RBC None per/HPF 05/20/2016 Urinalysis Ord28 U-Trans itional epi None per/HPF 6 Urinalysis Ord28 U-WBC None per/HPF 05/20/2016 Urinalysis Ord28 U-Cast None per/HPF 05/20/2016 Urinalysis Ord28 U-VOL VOLUME SUFFICIENT (10mL) 05/20/2016 Urinalysis Ord28 U-Yeast NEGATIVE 05/20/2016 Urinalysis Ord28 U-Com Urine saved if culture needed (specimen acceptable for 48 hours from collection if refrigerated) 05/20/2016 Testosterone Free Direct [id number] FREE TESTOSTERONE 0.6 pg/mL 05/19/2016 Estradiol 548464 ESTRADI OL <5.0 pg/mL 05/16/2016 Comp Metabolic Nnk803 NA 140 mEq/L 05/15/2016 Comp Metabolic Coh900 K 3.8 mEq/L 05/15/2016 Comp Metabolic Boh339 CL 106 mEq/L 05/15/2016 Comp Metabolic Wey004 CO2 26.0 mEq/L 05/15/2016 Comp Metabolic Tlz882 AN ION GAP 12 05/15/2016 Comp Metabolic Iap412 GL UCOSE 77 mg/dL 05/15/2016 Comp Metabolic Cgh383 Cr eat 0.5 mg/dL 05/15/2016 Comp Metabolic Zgi915 eG FR 144 ml/min/1.73m2 05/2016 Comp Metabolic Ocs491 BUN 18 mg/dL 05/15/2016 Comp Metabolic Nkw264 B/ C Ratio 40.0 Ratio 05/15/2016 Comp Metabolic Jso179 CA LCIUM 8.8 mg/dL 05/15/2016 Comp Metabolic Yss639 AL K PHOS 28 U/L 05/15/2016 Comp Metabolic Yxg657 T(SGOT) 19 U/L 05/15/2016 Comp Metabolic Sup486 AL T(SGPT) 19 U/L 05/15/2016 Comp Metabolic Yqd945 BI LI T 0.5 mg/dL 05/15/2016 Comp Metabolic Qjc744 AL BUMIN 3.6 g/dL 05/15/2016 Comp Metabolic Gii740 TP RO 5.6 g/dL 05/15/2016 Comp Metabolic Fon068 GL OB 2.0 g/dL 05/15/2016 Comp Metabolic Dlm505 A/ G Ratio 1.8 Ratio 05/15/2016 Comp Metabolic Ble524 Os mo 280 mOsmo 05/15/2016 Progesterone Jmt963 Prog 9.08 ng/mL 05/15/2016 Cbc With Differential Ord2 WBC 4.46 K/ul 05/15/2016 Cbc With Differential Ord2 RBC 4.18 M/ul 05/15/2016 Cbc With Differential Ord2 HGB 12.5 g/dl 05/15/2016 Cbc With Differential Ord2 HCT 37.8 % 05/15/2016 Cbc With Differential Ord2 Neut% 47.9 % 05/15/2016 Cbc With Differential Ord2 MCV 90.4 fl 05/15/2016 Cbc With Differential Ord2 Lymph% 31.8 % 05/15/2016 Cbc With Differential Ord2 MCH 29.9 pg 05/15/2016 Cbc With Differential Ord2 [place]% 14.1 % 05/15/2016 Cbc With Differential Ord2 MCHC 33.1 pg 05/15/2016 Cbc With Differential Ord2 Eos% 5.8 % 05/15/2016 Cbc With Differential Ord2 Baso% 0.4 % 05/15/2016 Cbc With Differential Ord2 PLT 262 K/ul 05/15/2016 Cbc With Differential Ord2 RDW 16.3 % 05/15/2016 Cbc With Differential Ord2 Neut ABS# 2.13 K/ul 05/15/2016 Cbc With Differential Ord2 Lymph ABS# 1.42 K/ul 05/15/2016 Cbc With Differential Ord2 [place] ABS# 0.6 K/ul 05/15/2016 Cbc With Differential Ord2 Eos ABS# 0.3 K/ul 05/15/2016 Cbc With Differential Ord2 Baso ABS# 0.0 K/ul 05/15/2016 Urinalysis Ord28 U-Color Yellow 05/15/2016 Urinalysis Ord28 U-Tasha ty Clear 05/15/2016 Urinalysis Ord28 U-Gluc Negative 05/15/2016 Urinalysis Ord28 U-Bili Negative 05/15/2016 Urinalysis Ord28 U-Ketone Negative 05/15/2016 Urinalysis Ord28 U-SG 1.020 05/15/2016 Urinalysis Ord28 U-Blood Negative 05/15/2016 Urinalysis Ord28 U-pH 7.0 05/15/2016 Urinalysis Ord28 U-Prote in Negative 05/15/2016 Urinalysis Ord28 U-Urobi lilo 0.2 E.U./dL E.U./dL Urinalysis Ord28 U-Nitri svetlana Negative 05/15/2016 Urinalysis Ord28 U-Leuk Negative 05/15/2016 Urinalysis Ord28 U-Bact None 05/15/2016 Urinalysis Ord28 U-Squam ous Epi None per/HPF 6 Urinalysis Ord28 U-Cryst al None per/HPF 6 Urinalysis Ord28 U-Mucus None 05/15/2016 Urinalysis Ord28 U-Renal tubular epi None 05/15/2016 Urinalysis Ord28 U-RBC None per/HPF 05/15/2016 Urinalysis Ord28 U-Trans itional epi None per/HPF 6 Urinalysis Ord28 U-WBC None per/HPF 05/15/2016 Urinalysis Ord28 U-Cast None per/HPF 05/15/2016 Urinalysis Ord28 U-VOL VOLUME SUFFICIENT (10mL) 05/15/2016 Urinalysis Ord28 U-Com None 05/15/2016 Urinalysis Ord28 U-Yeast NEGATIVE 05/15/2016 Testosterone Free Direct [id number] FREE TESTOSTERONE 0.2 pg/mL 05/09/2016 Estradiol 704553 ESTRADI OL <5.0 pg/mL 05/07/2016 Comp Metabolic Clg163 NA 141 mEq/L 05/06/2016 Comp Metabolic Pzo782 K 3.6 mEq/L 05/06/2016 Comp Metabolic Ojb559 CL 107 mEq/L 05/06/2016 Comp Metabolic Idd670 CO2 28.0 mEq/L 05/06/2016 Comp Metabolic Ajx608 AN ION GAP 10 05/06/2016 Comp Metabolic Bsh091 GL UCOSE 138 mg/dL 05/06/2016 Comp Metabolic Cns307 Cr eat 0.5 mg/dL 05/06/2016 Comp Metabolic Qlj270 eG FR 119 ml/min/1.73m2 04/10 Comp Metabolic Eef602 BUN 16 mg/dL 05/06/2016 Comp Metabolic Jke681 B/ C Ratio 30.2 Ratio 05/06/2016 Comp Metabolic Oka344 CA LCIUM 8.9 mg/dL 05/06/2016 Comp Metabolic Jxr691 AL K PHOS 29 U/L 05/06/2016 Comp Metabolic Wzp669 T(SGOT) 20 U/L 05/06/2016 Comp Metabolic Eii831 AL T(SGPT) 21 U/L 05/06/2016 Comp Metabolic Fuu795 BI LI T 0.4 mg/dL 05/06/2016 Comp Metabolic Iaa700 AL BUMIN 3.6 g/dL 05/06/2016 Comp Metabolic Hvs293 TP RO 5.5 g/dL 05/06/2016 Comp Metabolic Vsq002 GL OB 1.9 g/dL 05/06/2016 Comp Metabolic Xbu373 A/ G Ratio 1.9 Ratio 05/06/2016 Comp Metabolic Rxm030 Os mo 285 mOsmo 05/06/2016 Urinalysis Ord28 U-Color Yellow 05/06/2016 Urinalysis Ord28 U-Tasha ty Clear 05/06/2016 Urinalysis Ord28 U-Gluc Negative 05/06/2016 Urinalysis Ord28 U-Bili Negative 05/06/2016 Urinalysis Ord28 U-Ketone Negative 05/06/2016 Urinalysis Ord28 U-SG 1.015 05/06/2016 Urinalysis Ord28 U-Blood Negative 05/06/2016 Urinalysis Ord28 U-pH 8.0 05/06/2016 Urinalysis Ord28 U-Prote in Negative 05/06/2016 Urinalysis Ord28 U-Urobi lilo 0.2 E.U./dL E.U./dL Urinalysis Ord28 U-Nitri svetlana Negative 05/06/2016 Urinalysis Ord28 U-Leuk Negative 05/06/2016 Urinalysis Ord28 U-Bact None 05/06/2016 Urinalysis Ord28 U-Squam ous Epi 0-5 per/HPF 05/06/2016 Urinalysis Ord28 U-Cryst al None per/HPF 6 Urinalysis Ord28 U-Mucus None 05/06/2016 Urinalysis Ord28 U-Renal tubular epi None 05/06/2016 Urinalysis Ord28 U-RBC None per/HPF 05/06/2016 Urinalysis Ord28 U-Trans itional epi None per/HPF 201 6 Urinalysis Ord28 U-WBC None per/HPF 05/06/2016 Urinalysis Ord28 U-Cast None per/HPF 05/06/2016 Urinalysis Ord28 U-VOL VOLUME SUFFICIENT (10mL) 05/06/2016 Urinalysis Ord28 U-Yeast NEGATIVE 05/06/2016 Urinalysis Ord28 U-Com Urine saved if culture needed (specimen acceptable for 48 hours from collection if refrigerated) 05/06/2016 Progesterone Jje280 Prog 0.98 ng/mL 05/06/2016 Cbc With Differential Ord2 WBC 3.88 K/ul 05/06/2016 Cbc With Differential Ord2 RBC 4.14 M/ul 05/06/2016 Cbc With Differential Ord2 HGB 12.1 g/dl 05/06/2016 Cbc With Differential Ord2 HCT 37.3 % 05/06/2016 Cbc With Differential Ord2 Neut% 55.3 % 05/06/2016 Cbc With Differential Ord2 MCV 90.1 fl 05/06/2016 Cbc With Differential Ord2 Lymph% 29.9 % 05/06/2016 Cbc With Differential Ord2 [place]% 10.1 % 05/06/2016 Cbc With Differential Ord2 MCH 29.2 pg 05/06/2016 Cbc With Differential Ord2 Eos% 3.9 % 05/06/2016 Cbc With Differential Ord2 MCHC 32.4 pg 05/06/2016 Cbc With Differential Ord2 Baso% 0.8 % 05/06/2016 Cbc With Differential Ord2 PLT 255 K/ul 05/06/2016 Cbc With Differential Ord2 RDW 15.7 % 05/06/2016 Cbc With Differential Ord2 Neut ABS# 2.15 K/ul 05/06/2016 Cbc With Differential Ord2 Lymph ABS# 1.16 K/ul 05/06/2016 Cbc With Differential Ord2 [place] ABS# 0.4 K/ul 05/06/2016 Cbc With Differential Ord2 Eos ABS# 0.2 K/ul 05/06/2016 Cbc With Differential Ord2 Baso ABS# 0.0 K/ul 05/06/2016 Cbc With Differential Ord2 WBC 3.97 K/ul 04/29/2016 Cbc With Differential Ord2 RBC 4.33 M/ul 04/29/2016 Cbc With Differential Ord2 HGB 12.8 g/dl 04/29/2016 Cbc With Differential Ord2 HCT 38.5 % 04/29/2016 Cbc With Differential Ord2 Neut% 46.3 % 04/29/2016 Cbc With Differential Ord2 MCV 88.9 fl 04/29/2016 Cbc With Differential Ord2 Lymph% 35.8 % 04/29/2016 Cbc With Differential Ord2 MCH 29.6 pg 04/29/2016 Cbc With Differential Ord2 [place]% 13.1 % 04/29/2016 Cbc With Differential Ord2 MCHC 33.2 pg 04/29/2016 Cbc With Differential Ord2 Eos% 4.0 % 04/29/2016 Cbc With Differential Ord2 Baso% 0.8 % 04/29/2016 Cbc With Differential Ord2 PLT 253 K/ul 04/29/2016 Cbc With Differential Ord2 RDW 15.5 % 04/29/2016 Cbc With Differential Ord2 Neut ABS# 1.84 K/ul 04/29/2016 Cbc With Differential Ord2 Lymph ABS# 1.42 K/ul 04/29/2016 Cbc With Differential Ord2 [place] ABS# 0.5 K/ul 04/29/2016 Cbc With Differential Ord2 Eos ABS# 0.2 K/ul 04/29/2016 Cbc With Differential Ord2 Baso ABS# 0.0 K/ul 04/29/2016 Comp Metabolic Tah039 NA 141 mEq/L 04/29/2016 Comp Metabolic Opb609 K 4.0 mEq/L 04/29/2016 Comp Metabolic Gpo992 CL 108 mEq/L 04/29/2016 Comp Metabolic Sqg207 CO2 27.0 mEq/L 04/29/2016 Comp Metabolic Cfz864 AN ION GAP 10 04/29/2016 Comp Metabolic Grc506 GL UCOSE 69 mg/dL 04/29/2016 Comp Metabolic Ljo726 Cr eat 0.5 mg/dL 04/29/2016 Comp Metabolic Ctu350 eG FR 122 ml/min/1.73m2 04/10 Comp Metabolic Liu999 BUN 19 mg/dL 04/29/2016 Comp Metabolic Htk747 B/ C Ratio 36.5 Ratio 04/29/2016 Comp Metabolic Ofp389 CA LCIUM 9.1 mg/dL 04/29/2016 Comp Metabolic Uwi427 AL K PHOS 31 U/L 04/29/2016 Comp Metabolic Eow910 T(SGOT) 20 U/L 04/29/2016 Comp Metabolic Vwa675 AL T(SGPT) 22 U/L 04/29/2016 Comp Metabolic Plh804 BI LI T 0.6 mg/dL 04/29/2016 Comp Metabolic Bzz326 AL BUMIN 3.8 g/dL 04/29/2016 Comp Metabolic Ukt681 TP RO 5.9 g/dL 04/29/2016 Comp Metabolic Qcs740 GL OB 2.1 g/dL 04/29/2016 Comp Metabolic Yql753 A/ G Ratio 1.8 Ratio 04/29/2016 Comp Metabolic Hgf642 Os mo 282 mOsmo 04/29/2016 Progesterone Wic649 Prog 5.99 ng/mL 04/29/2016 Urinalysis Ord28 U-Color Yellow 04/29/2016 Urinalysis Ord28 U-Tasha ty Clear 04/29/2016 Urinalysis Ord28 U-Gluc Negative 04/29/2016 Urinalysis Ord28 U-Bili Negative 04/29/2016 Urinalysis Ord28 U-Ketone Trace 04/29/2016 Urinalysis Ord28 U-SG 1.020 04/29/2016 Urinalysis Ord28 U-Blood Negative 04/29/2016 Urinalysis Ord28 U-pH 8.0 04/29/2016 Urinalysis Ord28 U-Prote in Negative 04/29/2016 Urinalysis Ord28 U-Urobi lilo 0.2 E.U./dL E.U./dL Urinalysis Ord28 U-Nitri svetlana Negative 04/29/2016 Urinalysis Ord28 U-Leuk Negative 04/29/2016 Urinalysis Ord28 U-Bact None 04/29/2016 Urinalysis Ord28 U-Squam ous Epi None per/HPF 6 Urinalysis Ord28 U-Cryst al None per/HPF 6 Urinalysis Ord28 U-Mucus None 04/29/2016 Urinalysis Ord28 U-Renal tubular epi None 04/29/2016 Urinalysis Ord28 U-RBC RARE per/HPF 04/29/2016 Urinalysis Ord28 U-Trans itional epi None per/HPF 6 Urinalysis Ord28 U-WBC 0-2 per/HPF 04/29/2016 Urinalysis Ord28 U-Cast None per/HPF 04/29/2016 Urinalysis Ord28 U-VOL VOLUME SUFFICIENT (10mL) 04/29/2016 Urinalysis Ord28 U-Yeast NEGATIVE 04/29/2016 Urinalysis Ord28 U-Com Amorphous Phosphates Present; Urine bryan ed if culture needed (specimen acceptable for 48 hours from collection if refrigerated) 04/29/2016 Urinalysis Ord28 U-Color Yellow 04/25/2016 Urinalysis Ord28 U-Tasha ty Clear 04/25/2016 Urinalysis Ord28 U-Gluc Negative 04/25/2016 Urinalysis Ord28 U-Bili Negative 04/25/2016 Urinalysis Ord28 U-Ketone Negative 04/25/2016 Urinalysis Ord28 U-SG 1.020 04/25/2016 Urinalysis Ord28 U-Blood Negative 04/25/2016 Urinalysis Ord28 U-pH 8.0 04/25/2016 Urinalysis Ord28 U-Prote in Negative 04/25/2016 Urinalysis Ord28 U-Urobi lilo 0.2 E.U./dL E.U./dL Urinalysis Ord28 U-Nitri svetlana Negative 04/25/2016 Urinalysis Ord28 U-Leuk Negative 04/25/2016 Urinalysis Ord28 U-Bact None 04/25/2016 Urinalysis Ord28 U-Squam ous Epi None per/HPF 6 Urinalysis Ord28 U-Cryst al None per/HPF 6 Urinalysis Ord28 U-Mucus None 04/25/2016 Urinalysis Ord28 U-Renal tubular epi None 04/25/2016 Urinalysis Ord28 U-RBC None per/HPF 04/25/2016 Urinalysis Ord28 U-Trans itional epi None per/HPF 6 Urinalysis Ord28 U-WBC None per/HPF 04/25/2016 Urinalysis Ord28 U-Cast None per/HPF 04/25/2016 Urinalysis Ord28 U-VOL VOLUME SUFFICIENT (10mL) 04/25/2016 Urinalysis Ord28 U-Yeast NEGATIVE 04/25/2016 Urinalysis Ord28 U-Com Urine saved if culture needed (specimen acceptable for 48 hours from collection if refrigerated) 04/25/2016 Comp Metabolic Epu982 NA 138 mEq/L 04/25/2016 Comp Metabolic Sar041 K 3.6 mEq/L 04/25/2016 Comp Metabolic Cch979 CL 105 mEq/L 04/25/2016 Comp Metabolic Wxj662 CO2 27.0 mEq/L 04/25/2016 Comp Metabolic Mvy509 AN ION GAP 10 04/25/2016 Comp Metabolic Vfw005 GL UCOSE 190 mg/dL 04/25/2016 Comp Metabolic Djd912 Cr eat 0.5 mg/dL 04/25/2016 Comp Metabolic Ljk610 eG FR 128 ml/min/1.73m2 04/09 Comp Metabolic Ebc965 BUN 17 mg/dL 04/25/2016 Comp Metabolic Suk532 B/ C Ratio 34.0 Ratio 04/25/2016 Comp Metabolic Ezb605 CA LCIUM 8.7 mg/dL 04/25/2016 Comp Metabolic Ekc983 AL K PHOS 32 U/L 04/25/2016 Comp Metabolic Mdd651 T(SGOT) 23 U/L 04/25/2016 Comp Metabolic Oor509 AL T(SGPT) 22 U/L 04/25/2016 Comp Metabolic Ohg149 BI LI T 0.5 mg/dL 04/25/2016 Comp Metabolic Buz706 AL BUMIN 3.6 g/dL 04/25/2016 Comp Metabolic Brg985 TP RO 5.5 g/dL 04/25/2016 Comp Metabolic Ixh452 GL OB 1.9 g/dL 04/25/2016 Comp Metabolic Exn560 A/ G Ratio 1.9 Ratio 04/25/2016 Comp Metabolic Qie920 Os mo 282 mOsmo 04/25/2016 Cbc With Differential Ord2 WBC 3.24 K/ul 04/25/2016 Cbc With Differential Ord2 RBC 4.06 M/ul 04/25/2016 Cbc With Differential Ord2 HGB 12.0 g/dl 04/25/2016 Cbc With Differential Ord2 HCT 36.0 % 04/25/2016 Cbc With Differential Ord2 Neut% 52.4 % 04/25/2016 Cbc With Differential Ord2 MCV 88.7 fl 04/25/2016 Cbc With Differential Ord2 Lymph% 31.2 % 04/25/2016 Cbc With Differential Ord2 MCH 29.6 pg 04/25/2016 Cbc With Differential Ord2 [place]% 13.0 % 04/25/2016 Cbc With Differential Ord2 MCHC 33.3 pg 04/25/2016 Cbc With Differential Ord2 Eos% 2.5 % 04/25/2016 Cbc With Differential Ord2 PLT 252 K/ul 04/25/2016 Cbc With Differential Ord2 Baso% 0.9 % 04/25/2016 Cbc With Differential Ord2 RDW 15.2 % 04/25/2016 Cbc With Differential Ord2 Neut ABS# 1.70 K/ul 04/25/2016 Cbc With Differential Ord2 Lymph ABS# 1.01 K/ul 04/25/2016 Cbc With Differential Ord2 [place] ABS# 0.4 K/ul 04/25/2016 Cbc With Differential Ord2 Eos ABS# 0.1 K/ul 04/25/2016 Cbc With Differential Ord2 Baso ABS# 0.0 K/ul 04/25/2016 Cbc With Differential Ord2 WBC 5.03 K/ul 04/04/2016 Cbc With Differential Ord2 RBC 4.45 M/ul 04/04/2016 Cbc With Differential Ord2 HGB 13.0 g/dl 04/04/2016 Cbc With Differential Ord2 HCT 39.5 % 04/04/2016 Cbc With Differential Ord2 Neut% 54.5 % 04/04/2016 Cbc With Differential Ord2 MCV 88.8 fl 04/04/2016 Cbc With Differential Ord2 Lymph% 26.2 % 04/04/2016 Cbc With Differential Ord2 MCH 29.2 pg 04/04/2016 Cbc With Differential Ord2 [place]% 16.1 % 04/04/2016 Cbc With Differential Ord2 Eos% 3.0 % 04/04/2016 Cbc With Differential Ord2 MCHC 32.9 pg 04/04/2016 Cbc With Differential Ord2 PLT 235 K/ul 04/04/2016 Cbc With Differential Ord2 Baso% 0.2 % 04/04/2016 Cbc With Differential Ord2 Neut ABS# 2.74 K/ul 04/04/2016 Cbc With Differential Ord2 RDW 14.7 % 04/04/2016 Cbc With Differential Ord2 Lymph ABS# 1.32 K/ul 04/04/2016 Cbc With Differential Ord2 [place] ABS# 0.8 K/ul 04/04/2016 Cbc With Differential Ord2 Eos ABS# 0.2 K/ul 04/04/2016 Cbc With Differential Ord2 Baso ABS# 0.0 K/ul 04/04/2016 Comp Metabolic Awc082 NA 140 mEq/L 04/04/2016 Comp Metabolic Xsi109 K 4.1 mEq/L 04/04/2016 Comp Metabolic Cil283 CL 106 mEq/L 04/04/2016 Comp Metabolic Bwl869 CO2 27.0 mEq/L 04/04/2016 Comp Metabolic Pgp798 AN ION GAP 11 04/04/2016 Comp Metabolic Loi685 GL UCOSE 71 mg/dL 04/04/2016 Comp Metabolic Yzh628 Cr eat 0.5 mg/dL 04/04/2016 Comp Metabolic Mcy425 eG FR 131 ml/min/1.73m2 03/10 Comp Metabolic Wmq606 BUN 14 mg/dL 04/04/2016 Comp Metabolic Xcf877 B/ C Ratio 28.6 Ratio 04/04/2016 Comp Metabolic Twg989 CA LCIUM 9.1 mg/dL 04/04/2016 Comp Metabolic Nxv216 AL K PHOS 42 U/L 04/04/2016 Comp Metabolic Wsa898 T(SGOT) 18 U/L 04/04/2016 Comp Metabolic Fle928 AL T(SGPT) 17 U/L 04/04/2016 Comp Metabolic Hdd846 BI LI T 0.4 mg/dL 04/04/2016 Comp Metabolic Gli364 AL BUMIN 3.8 g/dL 04/04/2016 Comp Metabolic Jdv498 TP RO 6.0 g/dL 04/04/2016 Comp Metabolic Cqa860 GL OB 2.2 g/dL 04/04/2016 Comp Metabolic Aoh224 A/ G Ratio 1.7 Ratio 04/04/2016 Comp Metabolic Awi732 Os mo 278 mOsmo 04/04/2016 Urinalysis Ord28 U-Color Yellow 04/04/2016 Urinalysis Ord28 U-Tasha ty Clear 04/04/2016 Urinalysis Ord28 U-Gluc Negative 04/04/2016 Urinalysis Ord28 U-Bili Negative 04/04/2016 Urinalysis Ord28 U-Ketone Negative 04/04/2016 Urinalysis Ord28 U-SG 1.020 04/04/2016 Urinalysis Ord28 U-Blood Negative 04/04/2016 Urinalysis Ord28 U-pH 6.0 04/04/2016 Urinalysis Ord28 U-Prote in Negative 04/04/2016 Urinalysis Ord28 U-Urobi lilo 0.2 E.U./dL E.U./dL Urinalysis Ord28 U-Nitri svetlana Negative 04/04/2016 Urinalysis Ord28 U-Leuk Negative 04/04/2016 Urinalysis Ord28 U-Bact None 04/04/2016 Urinalysis Ord28 U-Squam ous Epi None per/HPF 6 Urinalysis Ord28 U-Cryst al None per/HPF 6 Urinalysis Ord28 U-Mucus None 04/04/2016 Urinalysis Ord28 U-Renal tubular epi None 04/04/2016 Urinalysis Ord28 U-RBC None per/HPF 04/04/2016 Urinalysis Ord28 U-Trans itional epi None per/HPF 6 Urinalysis Ord28 U-WBC None per/HPF 04/04/2016 Urinalysis Ord28 U-Cast None per/HPF 04/04/2016 Urinalysis Ord28 U-VOL VOLUME SUFFICIENT (10mL) 04/04/2016 Urinalysis Ord28 U-Com Urine saved if culture needed (specimen acceptable for 48 hours from collection if refrigerated) 04/04/2016 Urinalysis Ord28 U-Yeast NEGATIVE 04/04/2016 Cbc With Differential Ord2 WBC 3.43 K/ul 03/28/2016 Cbc With Differential Ord2 RBC 4.02 M/ul 03/28/2016 Cbc With Differential Ord2 HGB 11.9 g/dl 03/28/2016 Cbc With Differential Ord2 HCT 35.8 % 03/28/2016 Cbc With Differential Ord2 Neut% 51.0 % 03/28/2016 Cbc With Differential Ord2 MCV 89.1 fl 03/28/2016 Cbc With Differential Ord2 Lymph% 33.2 % 03/28/2016 Cbc With Differential Ord2 [place]% 11.7 % 03/28/2016 Cbc With Differential Ord2 MCH 29.6 pg 03/28/2016 Cbc With Differential Ord2 Eos% 3.8 % 03/28/2016 Cbc With Differential Ord2 MCHC 33.2 pg 03/28/2016 Cbc With Differential Ord2 PLT 207 K/ul 03/28/2016 Cbc With Differential Ord2 Baso% 0.3 % 03/28/2016 Cbc With Differential Ord2 Neut ABS# 1.75 K/ul 03/28/2016 Cbc With Differential Ord2 RDW 14.6 % 03/28/2016 Cbc With Differential Ord2 Lymph ABS# 1.14 K/ul 03/28/2016 Cbc With Differential Ord2 [place] ABS# 0.4 K/ul 03/28/2016 Cbc With Differential Ord2 Eos ABS# 0.1 K/ul 03/28/2016 Cbc With Differential Ord2 Baso ABS# 0.0 K/ul 03/28/2016 Cbc With Differential Ord2 New Analyzer Notice Please note new ref ranges s tarting 11-21-2015 due to implemntation of new five part differential hematolgy analyzer. 03/28/2016 Comp Metabolic Eda229 NA 137 mEq/L 03/28/2016 Comp Metabolic Kdm719 K 3.5 mEq/L 03/28/2016 Comp Metabolic Rsv096 CL 105 mEq/L 03/28/2016 Comp Metabolic Kqt890 CO2 27.0 mEq/L 03/28/2016 Comp Metabolic Wmi398 AN ION GAP 9 03/28/2016 Comp Metabolic Ivn333 GL UCOSE 174 mg/dL 03/28/2016 Comp Metabolic Fab316 Cr eat 0.5 mg/dL 03/28/2016 Comp Metabolic Omh770 eG FR 131 ml/min/1.73m2 03/10 Comp Metabolic Ymz539 BUN 13 mg/dL 03/28/2016 Comp Metabolic Bas100 B/ C Ratio 26.5 Ratio 03/28/2016 Comp Metabolic Zfe689 CA LCIUM 8.7 mg/dL 03/28/2016 Comp Metabolic Sme187 AL K PHOS 31 U/L 03/28/2016 Comp Metabolic Dgh047 T(SGOT) 20 U/L 03/28/2016 Comp Metabolic Uad781 AL T(SGPT) 19 U/L 03/28/2016 Comp Metabolic Lln301 BI LI T 0.4 mg/dL 03/28/2016 Comp Metabolic Gza228 AL BUMIN 3.5 g/dL 03/28/2016 Comp Metabolic Nfi273 TP RO 5.3 g/dL 03/28/2016 Comp Metabolic Dwm746 GL OB 1.8 g/dL 03/28/2016 Comp Metabolic Nyg227 A/ G Ratio 2.0 Ratio 03/28/2016 Comp Metabolic Bgo127 Os mo 278 mOsmo 03/28/2016 Urinalysis Ord28 U-Color Yellow 03/28/2016 Urinalysis Ord28 U-Tasha ty Clear 03/28/2016 Urinalysis Ord28 U-Gluc Negative 03/28/2016 Urinalysis Ord28 U-Bili Negative 03/28/2016 Urinalysis Ord28 U-Ketone Negative 03/28/2016 Urinalysis Ord28 U-SG 1.015 03/28/2016 Urinalysis Ord28 U-Blood Negative 03/28/2016 Urinalysis Ord28 U-pH 7.0 03/28/2016 Urinalysis Ord28 U-Prote in Negative 03/28/2016 Urinalysis Ord28 U-Urobi lilo 0.2 E.U./dL E.U./dL Urinalysis Ord28 U-Nitri svetlana Negative 03/28/2016 Urinalysis Ord28 U-Leuk Negative 03/28/2016 Urinalysis Ord28 U-Bact None 03/28/2016 Urinalysis Ord28 U-Squam ous Epi None per/HPF 6 Urinalysis Ord28 U-Cryst al None per/HPF 05/20/201 6 Urinalysis Ord28 U-Mucus None 03/28/2016 Urinalysis Ord28 U-Renal tubular epi None 03/28/2016 Urinalysis Ord28 U-RBC None per/HPF 03/28/2016 Urinalysis Ord28 U-Trans itional epi None per/HPF 6 Urinalysis Ord28 U-WBC None per/HPF 03/28/2016 Urinalysis Ord28 U-Cast None per/HPF 03/28/2016 Urinalysis Ord28 U-VOL VOLUME SUFFICIENT (10mL) 03/28/2016 Urinalysis Ord28 U-Com Urine saved if culture needed (specimen acceptable for 48 hours from collection if refrigerated) 03/28/2016 Urinalysis Ord28 U-Yeast NEGATIVE 03/28/2016 Testosterone Free Direct [id number] FREE TESTOSTERONE <0.2 pg/mL 03/13/2016 Estradiol 109362 ESTRADI OL <5.0 pg/mL 03/12/2016 Progesterone Fvk225 Prog 0.56 ng/mL 03/10/2016 Homocyst(E)Ine Plasma 598176 HOMOCYSTEINE, TOTAL 10.9 umol/L 01/18/2016 Mthfr 681289 MTHFR C677T: HETEROZYGOUS MUTATION DETECTED 02/2016 Mthfr 258329 MTHFR A1298 C: HETEROZYGOUS MUTATION DETECTED 01/11/2016 Mthfr 403180 INTERPRETAT ION: 01/11/2016 Iodine Serum 839089 IOD INE, SERUM 131.0 ug/L 01/10/2016 Tsh Ord6 hTSH II 2.11 uIU/mL 01/07/2016 Comp Metabolic Bxv532 NA 139 mEq/L 01/07/2016 Comp Metabolic Fdy988 K 4.0 mEq/L 01/07/2016 Comp Metabolic Eqb874 CL 104 mEq/L 01/07/2016 Comp Metabolic Feq894 CO2 26.0 mEq/L 01/07/2016 Comp Metabolic Wld045 AN ION GAP 13 01/07/2016 Comp Metabolic Gtp791 GL UCOSE 86 mg/dL 01/07/2016 Comp Metabolic Qfy881 Cr eat 0.6 mg/dL 01/07/2016 Comp Metabolic Unm212 eG FR 100 ml/min/1.73m2 12/11 Comp Metabolic Wkg938 BUN 18 mg/dL 01/07/2016 Comp Metabolic Ypi900 B/ C Ratio 29.0 Ratio 01/07/2016 Comp Metabolic Ohl421 CA LCIUM 9.4 mg/dL 01/07/2016 Comp Metabolic Cyy802 AL K PHOS 40 U/L 01/07/2016 Comp Metabolic Aqs207 T(SGOT) 20 U/L 01/07/2016 Comp Metabolic Uju516 AL T(SGPT) 24 U/L 01/07/2016 Comp Metabolic Zre634 BI LI T 0.6 mg/dL 01/07/2016 Comp Metabolic Nis918 AL BUMIN 4.1 g/dL 01/07/2016 Comp Metabolic Whr820 TP RO 6.4 g/dL 01/07/2016 Comp Metabolic Uvb013 GL OB 2.3 g/dL 01/07/2016 Comp Metabolic Gli643 A/ G Ratio 1.8 Ratio 01/07/2016 Comp Metabolic Zcs358 Os mo 279 mOsmo 01/07/2016 Lipid Ord30 CHOL 204 mg/dL 01/07/2016 Lipid Ord30 HDL 86.0 mg/dl 01/07/2016 Lipid Ord30 TRIG 104 mg/dL 01/07/2016 Lipid Ord30 LDL 97 mg/dL 01/07/2016 Lipid Ord30 C/HDL 2.4 Ratio 01/07/2016 Urine Culture Ucult Comp lete No Growth Day 2 11/28 Urine Culture Ucult Prel iminary No Growth Day 1 11/28 Urinalysis Ord28 U-Color Yellow 11/26/2015 Urinalysis Ord28 U-Tasha ty Clear 11/26/2015 Urinalysis Ord28 U-Gluc Negative 11/26/2015 Urinalysis Ord28 U-Bili Negative 11/26/2015 Urinalysis Ord28 U-Ketone Negative 11/26/2015 Urinalysis Ord28 U-SG 1.020 11/26/2015 Urinalysis Ord28 U-Blood Negative 11/26/2015 Urinalysis Ord28 U-pH 6.0 11/26/2015 Urinalysis Ord28 U-Prote in Negative 11/26/2015 Urinalysis Ord28 U-Urobi lilo 0.2 E.U./dL E.U./dL Urinalysis Ord28 U-Nitri svetlana Negative 11/26/2015 Urinalysis Ord28 U-Leuk Negative 11/26/2015 Urinalysis Ord28 U-Bact None 11/26/2015 Urinalysis Ord28 U-Squam ous Epi None per/HPF 6 Urinalysis Ord28 U-Cryst al None per/HPF 6 Urinalysis Ord28 U-Mucus None 11/26/2015 Urinalysis Ord28 U-Renal tubular epi None 11/26/2015 Urinalysis Ord28 U-RBC None per/HPF 11/26/2015 Urinalysis Ord28 U-Trans itional epi None per/HPF 6 Urinalysis Ord28 U-WBC None per/HPF 11/26/2015 Urinalysis Ord28 U-Cast None per/HPF 11/26/2015 Urinalysis Ord28 U-VOL VOLUME SUFFICIENT (10mL) 11/26/2015 Urinalysis Ord28 U-Yeast NEGATIVE 11/26/2015 Urinalysis Ord28 U-Com Culture to follow 11/26/2015 Progesterone Whw360 Prog >40.00 ng/mL 11/26/2015 Testosterone Free Direct [id number] FREE TESTOSTERONE 0.6 pg/mL 10/01/2015 Estradiol 199261 ESTRADI OL <5.0 pg/mL 09/26/2015 Urinalysis Ord28 U-Color Yellow 09/25/2015 Urinalysis Ord28 U-Tasha ty Clear 09/25/2015 Urinalysis Ord28 U-Gluc Negative 09/25/2015 Urinalysis Ord28 U-Bili Negative 09/25/2015 Urinalysis Ord28 U-Ketone Negative 09/25/2015 Urinalysis Ord28 U-SG 1.015 09/25/2015 Urinalysis Ord28 U-Blood Negative 09/25/2015 Urinalysis Ord28 U-pH 6.5 09/25/2015 Urinalysis Ord28 U-Prote in Negative 09/25/2015 Urinalysis Ord28 U-Urobi lilo 0.2 E.U./dL E.U./dL Urinalysis Ord28 U-Nitri svetlana Negative 09/25/2015 Urinalysis Ord28 U-Leuk Negative 09/25/2015 Urinalysis Ord28 U-Bact None 09/25/2015 Urinalysis Ord28 U-Squam ous Epi None per/HPF 5 Urinalysis Ord28 U-Cryst al None per/HPF 5 Urinalysis Ord28 U-Mucus 1+ 09/25/2015 Urinalysis Ord28 U-Renal tubular epi None 09/25/2015 Urinalysis Ord28 U-RBC None per/HPF 09/25/2015 Urinalysis Ord28 U-Trans itional epi None per/HPF 5 Urinalysis Ord28 U-WBC RARE per/HPF 09/25/2015 Urinalysis Ord28 U-Cast None per/HPF 09/25/2015 Urinalysis Ord28 U-VOL VOLUME SUFFICIENT (10mL) 09/25/2015 Urinalysis Ord28 U-Yeast NEGATIVE 09/25/2015 Urinalysis Ord28 U-Com Urine saved if culture needed (specimen acceptable for 48 hours from collection if refrigerated) 09/25/2015 Comp Metabolic Nwr300 NA 142 mEq/L 09/25/2015 Comp Metabolic Jgg355 K 4.3 mEq/L 09/25/2015 Comp Metabolic Dfe242 CL 110 mEq/L 09/25/2015 Comp Metabolic Xdf281 CO2 23.0 mEq/L 09/25/2015 Comp Metabolic Xjl060 AN ION GAP 13 09/25/2015 Comp Metabolic Yht773 GL UCOSE 76 mg/dL 09/25/2015 Comp Metabolic Nul053 Cr eat 0.8 mg/dL 09/25/2015 Comp Metabolic Fuy409 eG FR 79 ml/min/1.73m2 09/25 Comp Metabolic Ylb714 BUN 17 mg/dL 09/25/2015 Comp Metabolic Kfx673 B/ C Ratio 22.4 Ratio 09/25/2015 Comp Metabolic Yrg794 CA LCIUM 9.4 mg/dL 09/25/2015 Comp Metabolic Ffi216 AL K PHOS 45 U/L 09/25/2015 Comp Metabolic Qqi655 T(SGOT) 20 U/L 09/25/2015 Comp Metabolic Uym334 AL T(SGPT) 18 U/L 09/25/2015 Comp Metabolic Njv203 BI LI T 0.5 mg/dL 09/25/2015 Comp Metabolic Qjf317 AL BUMIN 4.0 g/dL 09/25/2015 Comp Metabolic Jze090 TP RO 6.2 g/dL 09/25/2015 Comp Metabolic Ouq310 GL OB 2.2 g/dL 09/25/2015 Comp Metabolic Rus483 A/ G Ratio 1.8 Ratio 09/25/2015 Comp Metabolic Kbm825 Os mo 283 mOsmo 09/25/2015 Tsh Ord6 hTSH II 4.05 uIU/mL 09/25/2015 Progesterone Lpm697 Prog 21.38 ng/mL 09/25/2015 Free T4 Jrc099 FREE T4 0.78 ng/dL 09/25/2015 Cbc With Differential Ord2 WBC 5.1 K/uL 09/25/2015 Cbc With Differential Ord2 LYM 1.5 K/uL 09/25/2015 Cbc With Differential Ord2 LYM% 29.8 % 09/25/2015 Cbc With Differential Ord2 NEUT/GRAN 3.2 K/uL 09/25/2015 Cbc With Differential Ord2 NEUT/GRAN % 62.5 % 09/25/2015 Cbc With Differential Ord2 MID 0.4 K/uL 09/25/2015 Cbc With Differential Ord2 MID% 7.7 % 09/25/2015 Cbc With Differential Ord2 RBC 4.66 M/uL 09/25/2015 Cbc With Differential Ord2 HGB 14.0 g/dL 09/25/2015 Cbc With Differential Ord2 HCT 44.4 % 09/25/2015 Cbc With Differential Ord2 MCV 95 fL 09/25/2015 Cbc With Differential Ord2 MCH 30 pg 09/25/2015 Cbc With Differential Ord2 MCHC 32 g/dL 09/25/2015 Cbc With Differential Ord2 PLT 267 K/uL 09/25/2015 Cbc With Differential Ord2 RDW 14.3 % 09/25/2015 Testosterone Free Direct [id number] FREE TESTOSTERONE 1.2 pg/mL 08/31/2015 Estradiol 073060 ESTRADI OL <5.0 pg/mL 08/29/2015 Progesterone Qyb071 Prog 4.37 ng/mL 08/28/2015 Fungal Screen I 144115 * *ASPERGILLUS AB BY ID . 07/23/2015 Fungal Screen I 354124 A SPERGILLUS AB BY ID None Detected 015 Fungal Screen I 621096 * *BLASTOMYCES ANTIBODY BY CF & ID . 07/23/2015 Fungal Screen I 811485 B LASTOMYCES AB,CF <1:8 07/23/2015 Fungal Screen I 077218 B LASTOMYCES AB,ID None Detected 015 Fungal Screen I 960091 * *MAXINE ANTIBODY BY ID . 07/23/2015 Fungal Screen I 461138 C ANDIDA AB BY ID Detected 07/23/2015 Fungal Screen I 596550 * *COCCIDIOIDES ANTIBODIES, IGG & IGM . 07/23/2015 Fungal Screen I 787635 C OCCIDIOIDES AB IGM 0.3 IV 07/23/2015 Fungal Screen I 446532 C OCCIDIOIDES AB IGG 0.4 IV 07/23/2015 Fungal Screen I 685628 * *HISTOPLASMA ANTIBODY BY ID . 07/23/2015 Fungal Screen I 103957 H ISTOPLASMA ABS (ID) None Detected 015 Francisella [place]sis Abs 018439 F. TULARENSIS, IGG 0 U/mL 07/17/2015 Francisella [place] Abs 070766 F. TULARENSIS, IGM 0 U/mL 07/17/2015 Vitamin D 25 Oh Avt9839 VITAMIN D, 25 HYDROXY 142.21 ng/mL 07/13/2015 Antistrptolysin-O Qualitative Mfm454 ASO Negative 07/12/2015 B12 Abh013 B12 956.00 pg/ml 07/12/2015 Cbc With Differential Ord2 WBC 4.2 K/uL 07/10/2015 Cbc With Differential Ord2 LYM 1.5 K/uL 07/10/2015 Cbc With Differential Ord2 LYM% 35.4 % 07/10/2015 Cbc With Differential Ord2 NEUT/GRAN 2.3 K/uL 07/10/2015 Cbc With Differential Ord2 NEUT/GRAN % 54.2 % 07/10/2015 Cbc With Differential Ord2 MID 0.4 K/uL 07/10/2015 Cbc With Differential Ord2 MID% 10.4 % 07/10/2015 Cbc With Differential Ord2 RBC 4.42 M/uL 07/10/2015 Cbc With Differential Ord2 HGB 13.5 g/dL 07/10/2015 Cbc With Differential Ord2 HCT 40.5 % 07/10/2015 Cbc With Differential Ord2 MCV 92 fL 07/10/2015 Cbc With Differential Ord2 MCH 31 pg 07/10/2015 Cbc With Differential Ord2 MCHC 33 g/dL 07/10/2015 Cbc With Differential Ord2 PLT 228 K/uL 07/10/2015 Cbc With Differential Ord2 RDW 15.1 % 07/10/2015 Free T4 Jxu847 FREE T4 0.79 ng/dL 06/12/2015 Urinalysis Ord28 U-Color Yellow 06/04/2015 Urinalysis Ord28 U-Tasha ty Clear 06/04/2015 Urinalysis Ord28 U-Gluc Negative 06/04/2015 Urinalysis Ord28 U-Bili Negative 06/04/2015 Urinalysis Ord28 U-Ketone 15 mg/dL 06/04/2015 Urinalysis Ord28 U-SG 1.020 06/04/2015 Urinalysis Ord28 U-Blood Negative 06/04/2015 Urinalysis Ord28 U-pH 7.0 06/04/2015 Urinalysis Ord28 U-Prote in Negative 06/04/2015 Urinalysis Ord28 U-Urobi lilo 0.2 E.U./dL E.U./dL Urinalysis Ord28 U-Nitri svetlana Negative 06/04/2015 Urinalysis Ord28 U-Leuk Negative 06/04/2015 Urinalysis Ord28 U-Bact None 06/04/2015 Urinalysis Ord28 U-Squam ous Epi 5-10 per/HPF 5 Urinalysis Ord28 U-Cryst al None per/HPF 5 Urinalysis Ord28 U-Mucus None 06/04/2015 Urinalysis Ord28 U-Renal tubular epi None 06/04/2015 Urinalysis Ord28 U-RBC None per/HPF 06/04/2015 Urinalysis Ord28 U-Trans itional epi None per/HPF 5 Urinalysis Ord28 U-WBC None per/HPF 06/04/2015 Urinalysis Ord28 U-Cast None per/HPF 06/04/2015 Urinalysis Ord28 U-VOL VOLUME SUFFICIENT (10mL) 06/04/2015 Urinalysis Ord28 U-Yeast NEGATIVE 06/04/2015 Urinalysis Ord28 U-Com None 06/04/2015 Lipid Ord30 CHOL 203 mg/dL 06/04/2015 Lipid Ord30 HDL 78.0 mg/dl 06/04/2015 Lipid Ord30 TRIG 82 mg/dL 06/04/2015 Lipid Ord30 LDL 109 mg/dL 06/04/2015 Lipid Ord30 C/HDL 2.6 Ratio 06/04/2015 Magnesium Ord90 Mag 2.2 mg/dL 06/04/2015 Cbc With Differential Ord2 WBC 4.6 K/uL 06/04/2015 Cbc With Differential Ord2 LYM 1.9 K/uL 06/04/2015 Cbc With Differential Ord2 LYM% 40.5 % 06/04/2015 Cbc With Differential Ord2 NEUT/GRAN 2.4 K/uL 06/04/2015 Cbc With Differential Ord2 NEUT/GRAN % 51.3 % 06/04/2015 Cbc With Differential Ord2 MID 0.4 K/uL 06/04/2015 Cbc With Differential Ord2 MID% 8.2 % 06/04/2015 Cbc With Differential Ord2 RBC 4.34 M/uL 06/04/2015 Cbc With Differential Ord2 HGB 12.8 g/dL 06/04/2015 Cbc With Differential Ord2 HCT 40.7 % 06/04/2015 Cbc With Differential Ord2 MCV 94 fL 06/04/2015 Cbc With Differential Ord2 MCH 30 pg 06/04/2015 Cbc With Differential Ord2 MCHC 31 g/dL 06/04/2015 Cbc With Differential Ord2 PLT 217 K/uL 06/04/2015 Cbc With Differential Ord2 RDW 16.0 % 06/04/2015 Comp Metabolic Iqk875 NA 139 mEq/L 06/04/2015 Comp Metabolic Hvw282 K 3.9 mEq/L 06/04/2015 Comp Metabolic Xpf849 CL 108 mEq/L 06/04/2015 Comp Metabolic Swt101 CO2 26.0 mEq/L 06/04/2015 Comp Metabolic Fqe573 AN ION GAP 9 06/04/2015 Comp Metabolic Tcz511 GL UCOSE 74 mg/dL 06/04/2015 Comp Metabolic Nbv089 Cr eat 0.6 mg/dL 06/04/2015 Comp Metabolic Wrx743 eG FR 102 ml/min/1.73m2 05/10 Comp Metabolic Vmh322 BUN 18 mg/dL 06/04/2015 Comp Metabolic Efo974 B/ C Ratio 29.5 Ratio 06/04/2015 Comp Metabolic Xef051 CA LCIUM 9.0 mg/dL 06/04/2015 Comp Metabolic Hlm333 AL K PHOS 44 U/L 06/04/2015 Comp Metabolic Rkp928 T(SGOT) 22 U/L 06/04/2015 Comp Metabolic Ity521 AL T(SGPT) 23 U/L 06/04/2015 Comp Metabolic Kcy939 BI LI T 0.4 mg/dL 06/04/2015 Comp Metabolic Yrp913 AL BUMIN 4.0 g/dL 06/04/2015 Comp Metabolic Gvw355 TP RO 5.8 g/dL 06/04/2015 Comp Metabolic Wtd334 GL OB 1.8 g/dL 06/04/2015 Comp Metabolic Ydy709 A/ G Ratio 2.2 Ratio 06/04/2015 Comp Metabolic Azv106 Os mo 278 mOsmo 06/04/2015 Tsh Ord6 hTSH II 5.17 uIU/mL 06/04/2015 Review of Systems System Result Effective Dates Constitutional No recent illness 05/25/2019 Constitutional No night sweats 05/25/2019 Constitutional No chills 05/25/2019 Constitutional No diaphoresis 05/25/2019 Constitutional fatigue 0 05/25/2019 Constitutional No fever 05/25/2019 Constitutional No insomnia 05/25/2019 Constitutional No malaise 05/25/2019 Eyes No eye discharge Eyes No eye erythema Eyes No vision change Ears/Nose/Throat/Neck No dizziness 05/25/2019 Cardiovascular No chest pain/pressure 05/25/2019 Cardiovascular No dyspnea 05/25/2019 Cardiovascular No edema 05/25/2019 Respiratory No productive sputum 05/25/2019 Respiratory No chest congestion 05/25/2019 Respiratory No cough Gastrointestinal No abdominal pain 05/25/2019 Gastrointestinal No diarrhea 05/25/2019 Gastrointestinal No nausea 05/25/2019 Musculoskeletal back pain 05/25/2019 Musculoskeletal joint complaint 05/25/2019 Dermatologic No rash Dermatologic No sores Dermatologic alopecia Neurologic No alteration of consciousness 05/25/2019 Neurologic No paresthesia 05/25/2019 Neurologic weakness 05/09 Psychiatric No anxiety 0 05/25/2019 Psychiatric depression 0 05/25/2019 Constitutional No recent illness 05/19/2019 Constitutional No anorexia 05/19/2019 Constitutional No night sweats 05/19/2019 Constitutional No chills 05/19/2019 Constitutional No diaphoresis 05/19/2019 Constitutional No fatigue 05/19/2019 Constitutional No fever 05/19/2019 Constitutional No insomnia 05/19/2019 Constitutional No malaise 05/19/2019 Constitutional No weight loss 05/19/2019 Constitutional No weight gain 05/19/2019 Dermatologic rash 2018 Constitutional No recent illness 01/24/2019 Constitutional No night sweats 01/24/2019 Constitutional No chills 01/24/2019 Constitutional No diaphoresis 01/24/2019 Constitutional fatigue 0 01/24/2019 Constitutional No fever 01/24/2019 Constitutional No insomnia 01/24/2019 Constitutional No malaise 01/24/2019 Eyes No eye discharge Eyes No eye erythema Eyes No vision change Ears/Nose/Throat/Neck No dizziness 01/24/2019 Cardiovascular No chest pain/pressure 01/24/2019 Cardiovascular No dyspnea 01/24/2019 Cardiovascular No edema 01/24/2019 Respiratory No productive sputum 01/24/2019 Respiratory No chest congestion 01/24/2019 Respiratory No cough Gastrointestinal No abdominal pain 01/24/2019 Gastrointestinal No diarrhea 01/24/2019 Gastrointestinal No nausea 01/24/2019 Musculoskeletal back pain 01/24/2019 Musculoskeletal joint complaint 01/24/2019 Dermatologic No rash Dermatologic No sores Dermatologic alopecia Neurologic No alteration of consciousness 01/24/2019 Neurologic No paresthesia 01/24/2019 Neurologic No weakness 0 01/24/2019 Psychiatric No anxiety 0 01/24/2019 Psychiatric depression 0 01/24/2019 Neurologic headache 01/07 Genitourinary/Nephrology breast complaint 01/24/2019 Constitutional No recent illness 01/10/2019 Constitutional No anorexia 01/10/2019 Constitutional No night sweats 01/10/2019 Constitutional No chills 01/10/2019 Constitutional No diaphoresis 01/10/2019 Constitutional fatigue 0 01/10/2019 Constitutional No fever 01/10/2019 Constitutional No insomnia 01/10/2019 Constitutional No malaise 01/10/2019 Constitutional No weight loss 01/10/2019 Constitutional No weight gain 01/10/2019 Eyes No eye discharge Eyes No eye erythema 02/2019 Eyes No vision change Ears/Nose/Throat/Neck No dizziness 01/10/2019 Ears/Nose/Throat/Neck headache 01/10/2019 Ears/Nose/Throat/Neck nasal allergies 01/10/2019 Ears/Nose/Throat/Neck nasal discharge 01/10/2019 Ears/Nose/Throat/Neck No otalgia 01/10/2019 Ears/Nose/Throat/Neck No sore throat 01/10/2019 Cardiovascular No chest pain/pressure 01/10/2019 Respiratory No cough 02/2019 Gastrointestinal No vomiting 01/10/2019 Gastrointestinal No nausea 01/10/2019 Gastrointestinal No diarrhea 01/10/2019 Genitourinary/Nephrology No dysuria 01/10/2019 Musculoskeletal No joint complaint 01/10/2019 Dermatologic No rash 02/2019 Neurologic No alteration of consciousness 01/10/2019 Constitutional No recent illness 11/25/2018 Constitutional No night sweats 11/25/2018 Constitutional No chills 11/25/2018 Constitutional No diaphoresis 11/25/2018 Constitutional fatigue 0 11/25/2018 Constitutional No fever 11/25/2018 Constitutional No insomnia 11/25/2018 Constitutional No malaise 11/25/2018 Eyes No eye discharge Eyes No eye erythema Eyes No vision change Ears/Nose/Throat/Neck No dizziness 11/25/2018 Cardiovascular No chest pain/pressure 11/25/2018 Cardiovascular No dyspnea 11/25/2018 Cardiovascular No edema 11/25/2018 Respiratory No productive sputum 11/25/2018 Respiratory No chest congestion 11/25/2018 Respiratory No cough Gastrointestinal abdominal pain 11/25/2018 Gastrointestinal diarrhea 11/25/2018 Gastrointestinal No nausea 11/25/2018 Genitourinary/Nephrology urinary urgency 11/25/2018 Genitourinary/Nephrology urinary inc ontinence 11/25/2018 Musculoskeletal back pain 11/25/2018 Dermatologic No rash Dermatologic No sores Dermatologic alopecia Neurologic No alteration of consciousness 11/25/2018 Neurologic No paresthesia 11/25/2018 Neurologic weakness 11/09 Psychiatric No anxiety 0 11/25/2018 Psychiatric depression 0 11/25/2018 Cardiovascular hypertension 11/25/2018 Genitourinary/Nephrology urinary urgency 09/15/2018 Genitourinary/Nephrology urinary inc ontinence 09/15/2018 Constitutional No recent illness 09/15/2018 Constitutional No night sweats 09/15/2018 Constitutional No chills 09/15/2018 Constitutional No diaphoresis 09/15/2018 Constitutional fatigue 1 11/15/2017 Constitutional No fever 09/15/2018 Constitutional No insomnia 09/15/2018 Constitutional No malaise 09/15/2018 Eyes No eye discharge Eyes No eye erythema 05/2018 Eyes No vision change Ears/Nose/Throat/Neck No dizziness 09/15/2018 Cardiovascular No chest pain/pressure 09/15/2018 Cardiovascular No dyspnea 09/15/2018 Cardiovascular No edema 09/15/2018 Respiratory No productive sputum 09/15/2018 Respiratory No chest congestion 09/15/2018 Respiratory No cough 05/2018 Gastrointestinal No abdominal pain 09/15/2018 Gastrointestinal No diarrhea 09/15/2018 Gastrointestinal No nausea 09/15/2018 Musculoskeletal back pain 09/15/2018 Dermatologic No rash 05/2018 Dermatologic No sores Dermatologic alopecia Neurologic No alteration of consciousness 09/15/2018 Neurologic No paresthesia 09/15/2018 Neurologic weakness 05/2018 Psychiatric No anxiety 1 11/15/2017 Psychiatric depression 1 11/15/2017 Constitutional No recent illness 09/10/2018 Constitutional No chills 09/10/2018 Constitutional No diaphoresis 09/10/2018 Constitutional No fever 09/10/2018 Eyes No eye erythema 12/2017 Ears/Nose/Throat/Neck No nasal discharge 09/10/2018 Cardiovascular No chest pain/pressure 09/10/2018 Cardiovascular No dyspnea 09/10/2018 Respiratory No cough 12/2017 Respiratory No dyspnea 1 11/10/2017 Neurologic No alteration of consciousness 09/10/2018 Neurologic No mental status change 09/10/2018 Constitutional No recent illness 06/01/2018 Constitutional No anorexia 06/01/2018 Constitutional No night sweats 06/01/2018 Constitutional No chills 06/01/2018 Constitutional No diaphoresis 06/01/2018 Constitutional No fatigue 06/01/2018 Constitutional No fever 06/01/2018 Constitutional No insomnia 06/01/2018 Constitutional No malaise 06/01/2018 Constitutional No weight loss 06/01/2018 Constitutional No weight gain 06/01/2018 Dermatologic rash 2017 Ears/Nose/Throat/Neck dizziness 06/01/2018 Ears/Nose/Throat/Neck No headache 06/01/2018 Cardiovascular No chest pain/pressure 06/01/2018 Cardiovascular No dyspnea 06/01/2018 Cardiovascular No edema 06/01/2018 Respiratory No productive sputum 06/01/2018 Respiratory No cough Respiratory No dyspnea on exertion 06/01/2018 Respiratory No dyspnea 0 06/01/2018 Gastrointestinal No vomiting 06/01/2018 Musculoskeletal No joint complaint 06/01/2018 Constitutional No recent illness 05/24/2018 Constitutional No anorexia 05/24/2018 Constitutional No night sweats 05/24/2018 Constitutional No chills 05/24/2018 Constitutional No diaphoresis 05/24/2018 Constitutional No fatigue 05/24/2018 Constitutional No fever 05/24/2018 Constitutional No insomnia 05/24/2018 Constitutional No malaise 05/24/2018 Constitutional No weight loss 05/24/2018 Constitutional No weight gain 05/24/2018 Dermatologic rash 2017 Constitutional No recent illness 05/19/2018 Constitutional No night sweats 05/19/2018 Constitutional No chills 05/19/2018 Constitutional No diaphoresis 05/19/2018 Constitutional fatigue 0 05/19/2018 Constitutional No fever 05/19/2018 Constitutional No insomnia 05/19/2018 Constitutional No malaise 05/19/2018 Eyes No eye discharge Eyes No eye erythema 09/2018 Eyes No vision change Ears/Nose/Throat/Neck No dizziness 05/19/2018 Cardiovascular No chest pain/pressure 05/19/2018 Cardiovascular No dyspnea 05/19/2018 Cardiovascular No edema 05/19/2018 Respiratory No productive sputum 05/19/2018 Respiratory No chest congestion 05/19/2018 Respiratory No cough 09/2018 Gastrointestinal No abdominal pain 05/19/2018 Gastrointestinal No diarrhea 05/19/2018 Gastrointestinal No nausea 05/19/2018 Musculoskeletal back pain 05/19/2018 Musculoskeletal joint complaint 05/19/2018 Dermatologic No rash 09/2018 Dermatologic No sores Dermatologic alopecia Neurologic No alteration of consciousness 05/19/2018 Neurologic No paresthesia 05/19/2018 Neurologic weakness 05/09 Psychiatric No anxiety 0 05/19/2018 Psychiatric depression 0 05/19/2018 Constitutional No recent illness 01/12/2018 Constitutional No night sweats 01/12/2018 Constitutional No chills 01/12/2018 Constitutional No diaphoresis 01/12/2018 Constitutional fatigue 0 01/12/2018 Constitutional No fever 01/12/2018 Constitutional No insomnia 01/12/2018 Constitutional No malaise 01/12/2018 Eyes No eye discharge Eyes No eye erythema 04/2018 Eyes No vision change Ears/Nose/Throat/Neck No dizziness 01/12/2018 Cardiovascular No chest pain/pressure 01/12/2018 Cardiovascular No dyspnea 01/12/2018 Cardiovascular No edema 01/12/2018 Respiratory No productive sputum 01/12/2018 Respiratory No chest congestion 01/12/2018 Respiratory No cough 04/2018 Gastrointestinal No abdominal pain 01/12/2018 Gastrointestinal No diarrhea 01/12/2018 Gastrointestinal No nausea 01/12/2018 Musculoskeletal back pain 01/12/2018 Musculoskeletal joint complaint 01/12/2018 Dermatologic No rash 04/2018 Dermatologic No sores Dermatologic alopecia Neurologic No alteration of consciousness 01/12/2018 Neurologic No paresthesia 01/12/2018 Neurologic weakness 04/2018 Psychiatric No anxiety 0 01/12/2018 Psychiatric depression 0 01/12/2018 Constitutional No recent illness 10/12/2017 Constitutional No night sweats 10/12/2017 Constitutional No chills 10/12/2017 Constitutional No diaphoresis 10/12/2017 Constitutional fatigue 1 12/13/2016 Constitutional No fever 10/12/2017 Constitutional No insomnia 10/12/2017 Constitutional No malaise 10/12/2017 Eyes No eye discharge Eyes No eye erythema 02/2017 Eyes No vision change Ears/Nose/Throat/Neck No dizziness 10/12/2017 Cardiovascular No chest pain/pressure 10/12/2017 Cardiovascular No dyspnea 10/12/2017 Cardiovascular No edema 10/12/2017 Respiratory No productive sputum 10/12/2017 Respiratory No chest congestion 10/12/2017 Respiratory No cough 02/2017 Gastrointestinal No abdominal pain 10/12/2017 Gastrointestinal No diarrhea 10/12/2017 Gastrointestinal No nausea 10/12/2017 Musculoskeletal back pain 10/12/2017 Dermatologic No rash 02/2017 Dermatologic No sores Neurologic No alteration of consciousness 10/12/2017 Neurologic No paresthesia 10/12/2017 Psychiatric No anxiety 1 12/13/2016 Psychiatric depression 1 12/13/2016 Neurologic headache 02/2017 Constitutional No recent illness 08/06/2017 Constitutional No night sweats 08/06/2017 Constitutional No chills 08/06/2017 Constitutional No diaphoresis 08/06/2017 Constitutional fatigue 0 08/06/2017 Constitutional No fever 08/06/2017 Constitutional No insomnia 08/06/2017 Constitutional No malaise 08/06/2017 Eyes No eye discharge Eyes No eye erythema Eyes No vision change Ears/Nose/Throat/Neck No dizziness 08/06/2017 Cardiovascular No chest pain/pressure 08/06/2017 Cardiovascular No dyspnea 08/06/2017 Cardiovascular No edema 08/06/2017 Respiratory No productive sputum 08/06/2017 Respiratory No chest congestion 08/06/2017 Respiratory No cough Gastrointestinal No abdominal pain 08/06/2017 Gastrointestinal No diarrhea 08/06/2017 Gastrointestinal No nausea 08/06/2017 Musculoskeletal back pain 08/06/2017 Musculoskeletal joint complaint 08/06/2017 Dermatologic No rash Dermatologic No sores Neurologic No alteration of consciousness 08/06/2017 Neurologic No paresthesia 08/06/2017 Neurologic weakness 07/11 Psychiatric No anxiety 0 08/06/2017 Psychiatric depression 0 08/06/2017 Dermatologic alopecia Constitutional No recent illness 05/13/2017 Constitutional No night sweats 05/13/2017 Constitutional No chills 05/13/2017 Constitutional No diaphoresis 05/13/2017 Constitutional fatigue 0 05/13/2017 Constitutional No fever 05/13/2017 Constitutional No insomnia 05/13/2017 Constitutional No malaise 05/13/2017 Constitutional No weight gain 05/13/2017 Eyes No eye discharge Eyes No eye erythema 03/2017 Eyes No vision change Ears/Nose/Throat/Neck No dizziness 05/13/2017 Cardiovascular No chest pain/pressure 05/13/2017 Cardiovascular No dyspnea 05/13/2017 Cardiovascular No edema 05/13/2017 Respiratory No productive sputum 05/13/2017 Respiratory No chest congestion 05/13/2017 Respiratory No cough 03/2017 Gastrointestinal No abdominal pain 05/13/2017 Gastrointestinal No diarrhea 05/13/2017 Gastrointestinal No nausea 05/13/2017 Genitourinary/Nephrology No dysuria 05/13/2017 Musculoskeletal joint complaint 05/13/2017 Dermatologic No rash 03/2017 Dermatologic No sores Neurologic No alteration of consciousness 05/13/2017 Neurologic No paresthesia 05/13/2017 Psychiatric No anxiety 0 05/13/2017 Psychiatric depression 0 05/13/2017 Musculoskeletal back pain 05/13/2017 Constitutional No recent illness 03/19/2017 Constitutional No chills 03/19/2017 Constitutional No diaphoresis 03/19/2017 Constitutional No fever 03/19/2017 Eyes No eye discharge Eyes No eye erythema 09/2017 Eyes No vision change Cardiovascular No chest pain/pressure 03/19/2017 Cardiovascular No dyspnea 03/19/2017 Respiratory No cough 09/2017 Gastrointestinal No diarrhea 03/19/2017 Gastrointestinal No nausea 03/19/2017 Neurologic No alteration of consciousness 03/19/2017 Neurologic weakness 03/09 Ears/Nose/Throat/Neck No nasal discharge 03/19/2017 Respiratory No dyspnea 0 03/19/2017 Gastrointestinal No abdominal pain 03/19/2017 Constitutional No recent illness 03/18/2017 Constitutional No night sweats 03/18/2017 Constitutional No chills 03/18/2017 Constitutional No diaphoresis 03/18/2017 Constitutional fatigue 0 03/18/2017 Constitutional No fever 03/18/2017 Constitutional No insomnia 03/18/2017 Constitutional No malaise 03/18/2017 Eyes No eye discharge Eyes No eye erythema 08/2017 Eyes No vision change Ears/Nose/Throat/Neck No dizziness 03/18/2017 Cardiovascular No chest pain/pressure 03/18/2017 Cardiovascular No dyspnea 03/18/2017 Cardiovascular No edema 03/18/2017 Respiratory No productive sputum 03/18/2017 Respiratory No chest congestion 03/18/2017 Respiratory No cough 08/2017 Gastrointestinal No abdominal pain 03/18/2017 Gastrointestinal No diarrhea 03/18/2017 Gastrointestinal No nausea 03/18/2017 Genitourinary/Nephrology No dysuria 03/18/2017 Musculoskeletal back pain 03/18/2017 Musculoskeletal joint complaint 03/18/2017 Dermatologic No rash 08/2017 Dermatologic No sores Neurologic No alteration of consciousness 03/18/2017 Neurologic No paresthesia 03/18/2017 Psychiatric No anxiety 0 03/18/2017 Psychiatric depression 0 03/18/2017 Neurologic weakness 03/09 Neurologic mental status change 03/18/2017 Constitutional No recent illness 01/27/2017 Constitutional No night sweats 01/27/2017 Constitutional No chills 01/27/2017 Constitutional No diaphoresis 01/27/2017 Constitutional fatigue 0 01/27/2017 Constitutional No fever 01/27/2017 Constitutional No insomnia 01/27/2017 Constitutional No malaise 01/27/2017 Constitutional No weight gain 01/27/2017 Eyes No eye discharge Eyes No eye erythema Eyes No vision change Ears/Nose/Throat/Neck No dizziness 01/27/2017 Cardiovascular No chest pain/pressure 01/27/2017 Cardiovascular No dyspnea 01/27/2017 Cardiovascular No edema 01/27/2017 Respiratory No productive sputum 01/27/2017 Respiratory No chest congestion 01/27/2017 Respiratory No cough Gastrointestinal No abdominal pain 01/27/2017 Gastrointestinal No diarrhea 01/27/2017 Gastrointestinal No nausea 01/27/2017 Genitourinary/Nephrology No dysuria 01/27/2017 Musculoskeletal back pain 01/27/2017 Musculoskeletal joint complaint 01/27/2017 Dermatologic No rash Dermatologic No sores Neurologic No alteration of consciousness 01/27/2017 Neurologic No paresthesia 01/27/2017 Psychiatric No anxiety 0 01/27/2017 Psychiatric depression 0 01/27/2017 Constitutional recent illness 12/29/2016 Constitutional No anorexia 12/29/2016 Constitutional No night sweats 12/29/2016 Constitutional No chills 12/29/2016 Constitutional No diaphoresis 12/29/2016 Constitutional fatigue 0 12/29/2016 Constitutional fever Constitutional No insomnia 12/29/2016 Constitutional No malaise 12/29/2016 Constitutional No weight loss 12/29/2016 Constitutional No weight gain 12/29/2016 Eyes No eye discharge Eyes No eye erythema Ears/Nose/Throat/Neck nasal allergies 12/29/2016 Ears/Nose/Throat/Neck otalgia 12/29/2016 Ears/Nose/Throat/Neck No sore throat 12/29/2016 Cardiovascular No chest pain/pressure 12/29/2016 Respiratory No cough Gastrointestinal No abdominal pain 12/29/2016 Genitourinary/Nephrology No dysuria 12/29/2016 Musculoskeletal back pain 12/29/2016 Dermatologic No rash Neurologic No alteration of consciousness 12/29/2016 Constitutional No recent illness 11/19/2016 Constitutional No night sweats 11/19/2016 Constitutional No chills 11/19/2016 Constitutional No diaphoresis 11/19/2016 Constitutional fatigue 0 11/19/2016 Constitutional No fever 11/19/2016 Constitutional No insomnia 11/19/2016 Constitutional No malaise 11/19/2016 Constitutional No weight gain 11/19/2016 Eyes No eye discharge Eyes No eye erythema 09/2017 Eyes No vision change Ears/Nose/Throat/Neck No dizziness 11/19/2016 Cardiovascular No chest pain/pressure 11/19/2016 Cardiovascular No dyspnea 11/19/2016 Cardiovascular No edema 11/19/2016 Respiratory No productive sputum 11/19/2016 Respiratory No chest congestion 11/19/2016 Respiratory No cough 09/2017 Gastrointestinal No abdominal pain 11/19/2016 Gastrointestinal No diarrhea 11/19/2016 Gastrointestinal No nausea 11/19/2016 Genitourinary/Nephrology No dysuria 11/19/2016 Musculoskeletal back pain 11/19/2016 Musculoskeletal joint complaint 11/19/2016 Dermatologic No rash 09/2017 Dermatologic No sores Neurologic No alteration of consciousness 11/19/2016 Neurologic No paresthesia 11/19/2016 Psychiatric No anxiety 0 11/19/2016 Psychiatric depression 0 11/19/2016 Constitutional recent illness 08/13/2016 Constitutional No fever 08/13/2016 Ears/Nose/Throat/Neck No dizziness 08/13/2016 Cardiovascular No chest pain/pressure 08/13/2016 Cardiovascular No edema 08/13/2016 Cardiovascular fatigue 1 Respiratory No productive sputum 08/13/2016 Respiratory No chest congestion 08/13/2016 Respiratory No cough 03/2016 Gastrointestinal No abdominal pain 08/13/2016 Gastrointestinal diarrhea 08/13/2016 Gastrointestinal No nausea 08/13/2016 Genitourinary/Nephrology No dysuria 08/13/2016 Musculoskeletal back pain 08/13/2016 Musculoskeletal joint complaint 08/13/2016 Neurologic No alteration of consciousness 08/13/2016 Neurologic No paresthesia 08/13/2016 Psychiatric No anxiety 1 Psychiatric depression 1 Constitutional fatigue 1 Constitutional recent illness 07/03/2016 Constitutional fatigue 0 07/03/2016 Constitutional No fever 07/03/2016 Ears/Nose/Throat/Neck No dizziness 07/03/2016 Cardiovascular No chest pain/pressure 07/03/2016 Cardiovascular No edema 07/03/2016 Cardiovascular exercise intolerance 07/03/2016 Cardiovascular fatigue 0 07/03/2016 Respiratory No productive sputum 07/03/2016 Respiratory No chest congestion 07/03/2016 Respiratory No cough Gastrointestinal No abdominal pain 07/03/2016 Gastrointestinal diarrhea 07/03/2016 Gastrointestinal No nausea 07/03/2016 Genitourinary/Nephrology No dysuria 07/03/2016 Musculoskeletal back pain 07/03/2016 Musculoskeletal joint complaint 07/03/2016 Neurologic No alteration of consciousness 07/03/2016 Neurologic No paresthesia 07/03/2016 Psychiatric No anxiety 0 07/03/2016 Psychiatric depression 0 07/03/2016 Constitutional recent illness 05/07/2016 Constitutional anorexia 05/07/2016 Constitutional No night sweats 05/07/2016 Constitutional No chills 05/07/2016 Constitutional No diaphoresis 05/07/2016 Constitutional fatigue 0 05/07/2016 Constitutional No fever 05/07/2016 Constitutional No insomnia 05/07/2016 Constitutional No malaise 05/07/2016 Eyes No eye discharge Eyes No eye erythema Eyes No vision change Ears/Nose/Throat/Neck No dizziness 05/07/2016 Ears/Nose/Throat/Neck No headache 05/07/2016 Cardiovascular No chest pain/pressure 05/07/2016 Cardiovascular dyspnea 0 05/07/2016 Cardiovascular No edema 05/07/2016 Cardiovascular exercise intolerance 05/07/2016 Cardiovascular fatigue 0 05/07/2016 Respiratory No productive sputum 05/07/2016 Respiratory No chest congestion 05/07/2016 Respiratory No cough Gastrointestinal No abdominal pain 05/07/2016 Gastrointestinal diarrhea 05/07/2016 Gastrointestinal No nausea 05/07/2016 Genitourinary/Nephrology No dysuria 05/07/2016 Musculoskeletal back pain 05/07/2016 Musculoskeletal joint complaint 05/07/2016 Dermatologic No rash Dermatologic No sores Neurologic No alteration of consciousness 05/07/2016 Neurologic No paresthesia 05/07/2016 Psychiatric No anxiety 0 05/07/2016 Psychiatric depression 0 05/07/2016 Constitutional recent illness 04/08/2016 Constitutional anorexia 04/08/2016 Constitutional No night sweats 04/08/2016 Constitutional No chills 04/08/2016 Constitutional No diaphoresis 04/08/2016 Constitutional fatigue 0 04/08/2016 Constitutional No fever 04/08/2016 Constitutional No insomnia 04/08/2016 Constitutional No malaise 04/08/2016 Eyes No eye discharge Eyes No eye erythema Eyes No vision change Ears/Nose/Throat/Neck No dizziness 04/08/2016 Ears/Nose/Throat/Neck No headache 04/08/2016 Cardiovascular No chest pain/pressure 04/08/2016 Cardiovascular dyspnea 0 04/08/2016 Cardiovascular No edema 04/08/2016 Cardiovascular exercise intolerance 04/08/2016 Cardiovascular fatigue 0 04/08/2016 Respiratory No productive sputum 04/08/2016 Respiratory No chest congestion 04/08/2016 Respiratory No cough Gastrointestinal No abdominal pain 04/08/2016 Gastrointestinal diarrhea 04/08/2016 Gastrointestinal No nausea 04/08/2016 Genitourinary/Nephrology No dysuria 04/08/2016 Musculoskeletal back pain 04/08/2016 Musculoskeletal joint complaint 04/08/2016 Dermatologic No rash Dermatologic No sores Neurologic No alteration of consciousness 04/08/2016 Neurologic No paresthesia 04/08/2016 Psychiatric No anxiety 0 04/08/2016 Psychiatric depression 0 04/08/2016 Constitutional No recent illness 03/11/2016 Constitutional No night sweats 03/11/2016 Constitutional No chills 03/11/2016 Constitutional No diaphoresis 03/11/2016 Constitutional fatigue 0 03/11/2016 Constitutional No fever 03/11/2016 Constitutional No insomnia 03/11/2016 Constitutional No malaise 03/11/2016 Eyes No eye discharge Eyes No eye erythema 01/2016 Eyes No vision change Ears/Nose/Throat/Neck No dizziness 03/11/2016 Cardiovascular No chest pain/pressure 03/11/2016 Cardiovascular No dyspnea 03/11/2016 Cardiovascular No edema 03/11/2016 Cardiovascular No fatigue 03/11/2016 Respiratory No productive sputum 03/11/2016 Respiratory No chest congestion 03/11/2016 Respiratory No cough 01/2016 Gastrointestinal No abdominal pain 03/11/2016 Gastrointestinal diarrhea 03/11/2016 Gastrointestinal No nausea 03/11/2016 Genitourinary/Nephrology No dysuria 03/11/2016 Dermatologic No rash 01/2016 Dermatologic No sores Neurologic No alteration of consciousness 03/11/2016 Psychiatric No anxiety 0 03/11/2016 Ears/Nose/Throat/Neck No nasal allergies 03/11/2016 Ears/Nose/Throat/Neck No nasal discharge 03/11/2016 Respiratory No dyspnea 0 03/11/2016 Gastrointestinal constipation 03/11/2016 Neurologic No mental status change 03/11/2016 Constitutional No recent illness 12/27/2015 Constitutional anorexia 12/27/2015 Constitutional No night sweats 12/27/2015 Constitutional No chills 12/27/2015 Constitutional No diaphoresis 12/27/2015 Constitutional fatigue 0 12/27/2015 Constitutional No fever 12/27/2015 Constitutional No insomnia 12/27/2015 Constitutional No malaise 12/27/2015 Eyes No eye discharge Eyes No eye erythema Eyes No vision change Ears/Nose/Throat/Neck No dizziness 12/27/2015 Ears/Nose/Throat/Neck No headache 12/27/2015 Cardiovascular No chest pain/pressure 12/27/2015 Cardiovascular dyspnea 0 12/27/2015 Cardiovascular No edema 12/27/2015 Respiratory No productive sputum 12/27/2015 Respiratory No chest congestion 12/27/2015 Respiratory No cough Gastrointestinal No abdominal pain 12/27/2015 Gastrointestinal constipation 12/27/2015 Gastrointestinal No diarrhea 12/27/2015 Gastrointestinal No nausea 12/27/2015 Genitourinary/Nephrology No dysuria 12/27/2015 Musculoskeletal back pain 12/27/2015 Musculoskeletal joint complaint 12/27/2015 Dermatologic No rash Dermatologic No sores Neurologic No alteration of consciousness 12/27/2015 Neurologic No paresthesia 12/27/2015 Psychiatric No anxiety 0 12/27/2015 Psychiatric depression 0 12/27/2015 Cardiovascular exercise intolerance 12/27/2015 Cardiovascular fatigue 0 12/27/2015 Constitutional No recent illness 09/24/2015 Constitutional anorexia 09/24/2015 Constitutional No night sweats 09/24/2015 Constitutional No chills 09/24/2015 Constitutional No diaphoresis 09/24/2015 Constitutional fatigue 1 11/24/2014 Constitutional No fever 09/24/2015 Constitutional No insomnia 09/24/2015 Constitutional No malaise 09/24/2015 Eyes No eye discharge Eyes No eye erythema Eyes No vision change Ears/Nose/Throat/Neck No dizziness 09/24/2015 Ears/Nose/Throat/Neck No headache 09/24/2015 Cardiovascular No chest pain/pressure 09/24/2015 Cardiovascular No dyspnea 09/24/2015 Cardiovascular No edema 09/24/2015 Respiratory No productive sputum 09/24/2015 Respiratory No chest congestion 09/24/2015 Respiratory No cough Gastrointestinal No abdominal pain 09/24/2015 Gastrointestinal constipation 09/24/2015 Gastrointestinal No diarrhea 09/24/2015 Gastrointestinal No nausea 09/24/2015 Genitourinary/Nephrology No dysuria 09/24/2015 Musculoskeletal back pain 09/24/2015 Musculoskeletal joint complaint 09/24/2015 Dermatologic No rash Dermatologic No sores Neurologic No alteration of consciousness 09/24/2015 Neurologic No paresthesia 09/24/2015 Psychiatric No anxiety 1 11/24/2014 Psychiatric depression 1 11/24/2014 Constitutional No recent illness 06/26/2015 Constitutional anorexia 06/26/2015 Constitutional No night sweats 06/26/2015 Constitutional No chills 06/26/2015 Constitutional No diaphoresis 06/26/2015 Constitutional fatigue 0 06/26/2015 Constitutional No fever 06/26/2015 Constitutional No insomnia 06/26/2015 Constitutional malaise 0 06/26/2015 Constitutional weight loss 06/26/2015 Eyes No eye discharge Eyes No eye erythema Eyes No vision change Ears/Nose/Throat/Neck No dizziness 06/26/2015 Ears/Nose/Throat/Neck No headache 06/26/2015 Cardiovascular No chest pain/pressure 06/26/2015 Cardiovascular No dyspnea 06/26/2015 Cardiovascular No edema 06/26/2015 Respiratory No productive sputum 06/26/2015 Respiratory No chest congestion 06/26/2015 Respiratory No cough Gastrointestinal No abdominal pain 06/26/2015 Gastrointestinal constipation 06/26/2015 Gastrointestinal No diarrhea 06/26/2015 Gastrointestinal No nausea 06/26/2015 Genitourinary/Nephrology No dysuria 06/26/2015 Musculoskeletal back pain 06/26/2015 Musculoskeletal joint complaint 06/26/2015 Dermatologic No rash Dermatologic No sores Neurologic No alteration of consciousness 06/26/2015 Neurologic No paresthesia 06/26/2015 Psychiatric No anxiety 0 06/26/2015 Psychiatric depression 0 06/26/2015 Constitutional No recent illness 04/10/2015 Constitutional anorexia 04/10/2015 Constitutional No night sweats 04/10/2015 Constitutional No chills 04/10/2015 Constitutional No diaphoresis 04/10/2015 Constitutional fatigue 0 04/10/2015 Constitutional No fever 04/10/2015 Constitutional No insomnia 04/10/2015 Constitutional No malaise 04/10/2015 Constitutional weight loss 04/10/2015 Constitutional No weight gain 04/10/2015 Eyes No eye discharge Eyes No eye erythema 12/2014 Ears/Nose/Throat/Neck No dizziness 04/10/2015 Ears/Nose/Throat/Neck No headache 04/10/2015 Eyes No vision change Cardiovascular No chest pain/pressure 04/10/2015 Cardiovascular No dyspnea 04/10/2015 Cardiovascular No edema 04/10/2015 Respiratory No productive sputum 04/10/2015 Respiratory No chest congestion 04/10/2015 Respiratory No cough 12/2014 Gastrointestinal No abdominal pain 04/10/2015 Gastrointestinal constipation 04/10/2015 Gastrointestinal No diarrhea 04/10/2015 Gastrointestinal No nausea 04/10/2015 Genitourinary/Nephrology No dysuria 04/10/2015 Musculoskeletal joint complaint 04/10/2015 Musculoskeletal back pain 04/10/2015 Dermatologic No rash 12/2014 Dermatologic No sores Neurologic No alteration of consciousness 04/10/2015 Neurologic No paresthesia 04/10/2015 Psychiatric No anxiety 0 04/10/2015 Psychiatric depression 0 04/10/2015 Endocrine No dry or coarse skin 04/10/2015 Hematologic/Lymphatic No abnormal bl eeding and bruising 04/10/2015 Physical Exam Exam Name System Name It em Name Status Result Effective Dates Notes Full Exam - General 1994 Constitutional general appearance Overall: well developed 05/25/2019 None Full Exam - General 1994 Constitutional general appearance Overall: in no acute distress 05/25/2019 None Full Exam - General 1994 Constitutional general appearance Overall: well nourished 05/25/2019 None Full Exam - General 1994 Eyes conjunctiva/eyelids Overall: conjunctiva clear 05/25/2019 None Full Exam - General 1994 Ears/Nose/Throat otoscopic exam Overall: external auditory canals clear 05/25/2019 None Full Exam - General 1994 Ears/Nose/Throat otoscopic exam Overall: tympanic membranes clear 05/25/2019 None Full Exam - General 1994 Ears/Nose/Throat oral cavity/pharynx/larynx Overall: oral mucosa clear 05/25/2019 None Full Exam - General 1994 Respiratory auscultation Overall: breath sounds clear bilaterally 05/25/2019 None Full Exam - General 1994 Respiratory respiratory effort/rhythm Overall: no retractions 05/25/2019 None Full Exam - General 1994 Respiratory respiratory effort/rhythm Overall: normal rate 05/25/2019 None Full Exam - General 1994 Cardiovascular auscultation of heart Overall: regular rate 05/25/2019 None Full Exam - General 1994 Cardiovascular auscultation of heart Overall: normal heart sounds 05/25/2019 None Full Exam - General 1994 Abdomen abdominal exam Overall: no tenderness 05/25/2019 None Full Exam - General 1994 Abdomen abdominal exam Overall: normal bowel sounds 05/25/2019 None Full Exam - General 1994 Lymphatic neck nodes Overall: anterior cervical chain benign 05/25/2019 None Full Exam - General 1994 Lymphatic neck nodes Overall: posterior cervical chain benign 05/25/2019 None Full Exam - General 1994 Musculoskeletal spine, ribs and pelvis Posture: scoliosis 05/25/2019 None Full Exam - General 1994 Neurologic deep tendon reflexes Overall: deep tendon reflexes intact 05/25/2019 None Full Exam - General 1994 Neurologic cranial nerves Overall: crainial nerves 2 - 12 grossly intact 05/25/2019 None Full Exam - General 1994 Psychiatric orientation/consciousness Overall: oriented to person, place and time 05/25/2019 None Full Exam - General 1994 Constitutional general appearance Overall: well developed 05/19/2019 None Full Exam - General 1994 Constitutional general appearance Overall: in no acute distress 05/19/2019 None Full Exam - General 1994 Constitutional general appearance Overall: well nourished 05/19/2019 None Full Exam - General 1994 Psychiatric orientation/consciousness Overall: oriented to person, place and time 05/19/2019 None Full Exam - General 1994 Respiratory auscultation Overall: breath sounds clear bilaterally 05/19/2019 None Full Exam - General 1994 Respiratory respiratory effort/rhythm Overall: no retractions 05/19/2019 None Full Exam - General 1994 Respiratory respiratory effort/rhythm Overall: normal rate 05/19/2019 None Full Exam - General 1994 Cardiovascular auscultation of heart Overall: regular rate 05/19/2019 None Full Exam - General 1994 Cardiovascular auscultation of heart Overall: normal heart sounds 05/19/2019 None Full Exam - General 1994 Integument inspection of skin Location: left arm 05/19/2019 None Full Exam - General 1994 Integument inspection of skin Location: right arm 05/19/2019 None Full Exam - General 1994 Integument inspection of skin Rash/Lesions: vesicle 05/19/2019 None Full Exam - General 1994 Constitutional general appearance Overall: well developed 01/24/2019 None Full Exam - General 1994 Constitutional general appearance Overall: in no acute distress 01/24/2019 None Full Exam - General 1994 Constitutional general appearance Overall: well nourished 01/24/2019 None Full Exam - General 1994 Eyes conjunctiva/eyelids Overall: conjunctiva clear 01/24/2019 None Full Exam - General 1994 Ears/Nose/Throat otoscopic exam Overall: external auditory canals clear 01/24/2019 None Full Exam - General 1994 Ears/Nose/Throat otoscopic exam Overall: tympanic membranes clear 01/24/2019 None Full Exam - General 1994 Ears/Nose/Throat oral cavity/pharynx/larynx Overall: oral mucosa clear 01/24/2019 None Full Exam - General 1994 Respiratory auscultation Overall: breath sounds clear bilaterally 01/24/2019 None Full Exam - General 1994 Respiratory respiratory effort/rhythm Overall: no retractions 01/24/2019 None Full Exam - General 1994 Respiratory respiratory effort/rhythm Overall: normal rate 01/24/2019 None Full Exam - General 1994 Cardiovascular auscultation of heart Overall: regular rate 01/24/2019 None Full Exam - General 1994 Cardiovascular auscultation of heart Overall: normal heart sounds 01/24/2019 None Full Exam - General 1994 Abdomen abdominal exam Overall: no tenderness 01/24/2019 None Full Exam - General 1994 Abdomen abdominal exam Overall: normal bowel sounds 01/24/2019 None Full Exam - General 1994 Lymphatic neck nodes Overall: anterior cervical chain benign 01/24/2019 None Full Exam - General 1994 Lymphatic neck nodes Overall: posterior cervical chain benign 01/24/2019 None Full Exam - General 1994 Musculoskeletal spine, ribs and pelvis Posture: scoliosis 01/24/2019 None Full Exam - General 1994 Neurologic deep tendon reflexes Overall: deep tendon reflexes intact 01/24/2019 None Full Exam - General 1994 Neurologic cranial nerves Overall: crainial nerves 2 - 12 grossly intact 01/24/2019 None Full Exam - General 1994 Psychiatric orientation/consciousness Overall: oriented to person, place and time 01/24/2019 None Full Exam - General 1994 Chest/Breast breast and axillae palpation Overall: breasts non- tender 01/24/2019 None Full Exam - General 1994 Chest/Breast breast and axillae palpation Overall: axillae non- tender 01/24/2019 None Full Exam - General 1994 Chest/Breast breast and axillae palpation Overall: no nipple discharge 01/24/2019 None Full Exam - General 1994 Constitutional general appearance Overall: well developed 01/10/2019 None Full Exam - General 1994 Constitutional general appearance Overall: in no acute distress 01/10/2019 None Full Exam - General 1994 Constitutional general appearance Overall: well nourished 01/10/2019 None Full Exam - General 1994 Eyes conjunctiva/eyelids Overall: conjunctiva clear 01/10/2019 None Full Exam - General 1994 Ears/Nose/Throat otoscopic exam Overall: external auditory canals clear 01/10/2019 None Full Exam - General 1994 Ears/Nose/Throat otoscopic exam Overall: tympanic membranes clear 01/10/2019 None Full Exam - General 1994 Ears/Nose/Throat oral cavity/pharynx/larynx Overall: oral mucosa clear 01/10/2019 None Full Exam - General 1994 Respiratory auscultation Overall: breath sounds clear bilaterally 01/10/2019 None Full Exam - General 1994 Respiratory respiratory effort/rhythm Overall: no retractions 01/10/2019 None Full Exam - General 1994 Respiratory respiratory effort/rhythm Overall: normal rate 01/10/2019 None Full Exam - General 1994 Cardiovascular auscultation of heart Overall: regular rate 01/10/2019 None Full Exam - General 1994 Cardiovascular auscultation of heart Overall: normal heart sounds 01/10/2019 None Full Exam - General 1994 Abdomen abdominal exam Overall: no tenderness 01/10/2019 None Full Exam - General 1994 Abdomen abdominal exam Overall: normal bowel sounds 01/10/2019 None Full Exam - General 1994 Lymphatic neck nodes Overall: anterior cervical chain benign 01/10/2019 None Full Exam - General 1994 Lymphatic neck nodes Overall: posterior cervical chain benign 01/10/2019 None Full Exam - General 1994 Musculoskeletal spine, ribs and pelvis Posture: scoliosis 01/10/2019 None Full Exam - General 1994 Neurologic deep tendon reflexes Overall: deep tendon reflexes intact 01/10/2019 None Full Exam - General 1994 Neurologic cranial nerves Overall: crainial nerves 2 - 12 grossly intact 01/10/2019 None Full Exam - General 1994 Psychiatric orientation/consciousness Overall: oriented to person, place and time 01/10/2019 None Full Exam - Cardiology Ears/Nose/Throat oral mucosa Overall: oral mucosa clear 01/10/2019 None Full Exam - General 1994 Constitutional general appearance Overall: well developed 11/25/2018 None Full Exam - General 1994 Constitutional general appearance Overall: in no acute distress 11/25/2018 None Full Exam - General 1994 Constitutional general appearance Overall: well nourished 11/25/2018 None Full Exam - General 1994 Eyes conjunctiva/eyelids Overall: conjunctiva clear 11/25/2018 None Full Exam - General 1994 Ears/Nose/Throat otoscopic exam Overall: external auditory canals clear 11/25/2018 None Full Exam - General 1994 Ears/Nose/Throat otoscopic exam Overall: tympanic membranes clear 11/25/2018 None Full Exam - General 1994 Ears/Nose/Throat oral cavity/pharynx/larynx Overall: oral mucosa clear 11/25/2018 None Full Exam - General 1994 Respiratory auscultation Overall: breath sounds clear bilaterally 11/25/2018 None Full Exam - General 1994 Respiratory respiratory effort/rhythm Overall: no retractions 11/25/2018 None Full Exam - General 1994 Respiratory respiratory effort/rhythm Overall: normal rate 11/25/2018 None Full Exam - General 1994 Cardiovascular auscultation of heart Overall: regular rate 11/25/2018 None Full Exam - General 1994 Cardiovascular auscultation of heart Overall: normal heart sounds 11/25/2018 None Full Exam - General 1994 Abdomen abdominal exam Overall: no tenderness 11/25/2018 None Full Exam - General 1994 Abdomen abdominal exam Overall: normal bowel sounds 11/25/2018 None Full Exam - General 1994 Lymphatic neck nodes Overall: anterior cervical chain benign 11/25/2018 None Full Exam - General 1994 Lymphatic neck nodes Overall: posterior cervical chain benign 11/25/2018 None Full Exam - General 1994 Neurologic cranial nerves Overall: crainial nerves 2 - 12 grossly intact 11/25/2018 None Full Exam - General 1994 Psychiatric orientation/consciousness Overall: oriented to person, place and time 11/25/2018 None Full Exam - General 1994 Constitutional general appearance Overall: well developed 09/15/2018 None Full Exam - General 1994 Constitutional general appearance Overall: in no acute distress 09/15/2018 None Full Exam - General 1994 Constitutional general appearance Overall: well nourished 09/15/2018 None Full Exam - General 1994 Eyes conjunctiva/eyelids Overall: conjunctiva clear 09/15/2018 None Full Exam - General 1994 Ears/Nose/Throat otoscopic exam Overall: external auditory canals clear 09/15/2018 None Full Exam - General 1994 Ears/Nose/Throat otoscopic exam Overall: tympanic membranes clear 09/15/2018 None Full Exam - General 1994 Ears/Nose/Throat oral cavity/pharynx/larynx Overall: oral mucosa clear 09/15/2018 None Full Exam - General 1994 Respiratory auscultation Overall: breath sounds clear bilaterally 09/15/2018 None Full Exam - General 1994 Respiratory respiratory effort/rhythm Overall: no retractions 09/15/2018 None Full Exam - General 1994 Respiratory respiratory effort/rhythm Overall: normal rate 09/15/2018 None Full Exam - General 1994 Cardiovascular auscultation of heart Overall: regular rate 09/15/2018 None Full Exam - General 1994 Cardiovascular auscultation of heart Overall: normal heart sounds 09/15/2018 None Full Exam - General 1994 Abdomen abdominal exam Overall: no tenderness 09/15/2018 None Full Exam - General 1994 Abdomen abdominal exam Overall: normal bowel sounds 09/15/2018 None Full Exam - General 1994 Lymphatic neck nodes Overall: anterior cervical chain benign 09/15/2018 None Full Exam - General 1994 Lymphatic neck nodes Overall: posterior cervical chain benign 09/15/2018 None Full Exam - General 1994 Musculoskeletal spine, ribs and pelvis Posture: scoliosis 09/15/2018 None Full Exam - General 1994 Neurologic deep tendon reflexes Overall: deep tendon reflexes intact 09/15/2018 None Full Exam - General 1994 Neurologic cranial nerves Overall: crainial nerves 2 - 12 grossly intact 09/15/2018 None Full Exam - General 1994 Psychiatric orientation/consciousness Overall: oriented to person, place and time 09/15/2018 None Full Exam - General 1994 Constitutional general appearance Overall: well developed 09/10/2018 None Full Exam - General 1994 Constitutional general appearance Overall: in no acute distress 09/10/2018 None Full Exam - General 1994 Constitutional general appearance Overall: well nourished 09/10/2018 None Full Exam - General 1994 Eyes conjunctiva/eyelids Overall: conjunctiva clear 09/10/2018 None Full Exam - General 1994 Eyes conjunctiva/eyelids Overall: eyelids normal 09/10/2018 None Full Exam - General 1994 Ears/Nose/Throat lips/teeth/gingiva Overall: benign lips 09/10/2018 None Full Exam - General 1994 Respiratory respiratory effort/rhythm Overall: no retractions 09/10/2018 None Full Exam - General 1994 Respiratory respiratory effort/rhythm Overall: normal rate 09/10/2018 None Full Exam - General 1994 Musculoskeletal head and neck Overall: head atraumatic 09/10/2018 None Full Exam - General 1994 Neurologic cranial nerves Overall: crainial nerves 2 - 12 grossly intact 09/10/2018 None Full Exam - General 1994 Psychiatric orientation/consciousness Overall: oriented to person, place and time 09/10/2018 None Full Exam - General 1994 Psychiatric mood and affect Overall: normal mood and affect 09/10/2018 None Full Exam - General 1994 Psychiatric appearance Overall: well-groomed, good eye contact 09/10/2018 None Full Exam - Dermatology Constitutional general appearance Overall: well nourished 06/01/2018 None Full Exam - Dermatology Constitutional general appearance Overall: well developed 06/01/2018 None Full Exam - Dermatology Constitutional general appearance Overall: in no acute distress 06/01/2018 None Full Exam - Dermatology Constitutional general appearance Overall: of normal body habitus 06/01/2018 None Full Exam - Dermatology Constitutional general appearance Overall: well groomed 06/01/2018 None Full Exam - Dermatology Respiratory auscultation Overall: breath sounds clear bilaterally 06/01/2018 None Full Exam - Dermatology Respiratory respiratory effort/rhythm Overall: no retractions 06/01/2018 None Full Exam - Dermatology Respiratory respiratory effort/rhythm Overall: normal rate 06/01/2018 None Full Exam - Dermatology Integument insp & palp - head/face Lesion: patch 06/01/2018 None Full Exam - Dermatology Integument insp & palp - head/face Location: on the forehead 06/01/2018 None Full Exam - Dermatology Integument insp & palp - head/face Location: on both eyelids 06/01/2018 None Full Exam - Dermatology Integument insp & palp - head/face Location: on the anterior neck 06/01/2018 -improved Full Exam - Dermatology Integument insp & palp - head/face Location: on the posterior neck 06/01/2018 -improved Full Exam - Dermatology Integument insp & palp - head/face Color: erythematous 06/01/2018 None Full Exam - Dermatology Integument insp & palp - chest/axillae Lesion: patch 06/01/2018 None Full Exam - Dermatology Integument insp & palp - chest/axillae Distribution: localized 06/01/2018 None Full Exam - Dermatology Integument insp & palp - chest/axillae Location: on the upper chest 06/01/2018 None Full Exam - Dermatology Integument insp & palp - chest/axillae Color: erythematous 06/01/2018 None Full Exam - Dermatology Integument insp & palp - genitalia/groin/buttocks Lesion: patch 06/01/2018 None Full Exam - Dermatology Integument insp & palp - genitalia/groin/buttocks Location: on the buttocks 06/01/2018 None Full Exam - Dermatology Integument insp & palp - genitalia/groin/buttocks Color: erythematous 06/01/2018 None Full Exam - Dermatology Integument insp & palp - left upper extremity Lesion: patch 06/01/2018 None Full Exam - Dermatology Integument insp & palp - left upper extremity Location: on the upper arm 06/01/2018 None Full Exam - Dermatology Integument insp & palp - left upper extremity Location: on the forearm 06/01/2018 None Full Exam - Dermatology Integument insp & palp - left upper extremity Color: erythematous 06/01/2018 None Full Exam - Dermatology Integument insp & palp - right upper extremity Lesion: patch 06/01/2018 None Full Exam - Dermatology Integument insp & palp - right upper extremity Location: on the upper arm 06/01/2018 None Full Exam - Dermatology Integument insp & palp - right upper extremity Location: on the forearm 06/01/2018 None Full Exam - Dermatology Integument insp & palp - right upper extremity Color: erythematous 06/01/2018 None Full Exam - Dermatology Psychiatric orientation Overall: oriented to person, place and time 06/01/2018 None Full Exam - Dermatology Integument insp & palp - abdomen Location: on the left upper abdomen 06/01/2018 and under left breast Full Exam - Dermatology Integument insp & palp - abdomen Location: on the lower abdomen 06/01/2018 around waist line Full Exam - Dermatology Constitutional general appearance Overall: well nourished 05/24/2018 None Full Exam - Dermatology Constitutional general appearance Overall: well developed 05/24/2018 None Full Exam - Dermatology Constitutional general appearance Overall: in no acute distress 05/24/2018 None Full Exam - Dermatology Constitutional general appearance Overall: of normal body habitus 05/24/2018 None Full Exam - Dermatology Constitutional general appearance Overall: well groomed 05/24/2018 None Full Exam - Dermatology Respiratory auscultation Overall: breath sounds clear bilaterally 05/24/2018 None Full Exam - Dermatology Respiratory respiratory effort/rhythm Overall: no retractions 05/24/2018 None Full Exam - Dermatology Respiratory respiratory effort/rhythm Overall: normal rate 05/24/2018 None Full Exam - Dermatology Psychiatric orientation Overall: oriented to person, place and time 05/24/2018 None Full Exam - Dermatology Integument insp & palp - head/face Location: on the forehead 05/24/2018 None Full Exam - Dermatology Integument insp & palp - head/face Location: on both eyelids 05/24/2018 None Full Exam - Dermatology Integument insp & palp - head/face Location: on the anterior neck 05/24/2018 None Full Exam - Dermatology Integument insp & palp - head/face Location: on the posterior neck 05/24/2018 None Full Exam - Dermatology Integument insp & palp - head/face Color: erythematous 05/24/2018 None Full Exam - Dermatology Integument insp & palp - head/face Lesion: patch 05/24/2018 None Full Exam - Dermatology Integument insp & palp - genitalia/groin/buttocks Lesion: patch 05/24/2018 None Full Exam - Dermatology Integument insp & palp - genitalia/groin/buttocks Location: on the buttocks 05/24/2018 None Full Exam - Dermatology Integument insp & palp - genitalia/groin/buttocks Color: erythematous 05/24/2018 None Full Exam - Dermatology Integument insp & palp - chest/axillae Lesion: patch 05/24/2018 None Full Exam - Dermatology Integument insp & palp - chest/axillae Distribution: localized 05/24/2018 None Full Exam - Dermatology Integument insp & palp - chest/axillae Color: erythematous 05/24/2018 None Full Exam - Dermatology Integument insp & palp - chest/axillae Location: on the upper chest 05/24/2018 None Full Exam - Dermatology Integument insp & palp - left upper extremity Lesion: patch 05/24/2018 None Full Exam - Dermatology Integument insp & palp - left upper extremity Location: on the forearm 05/24/2018 None Full Exam - Dermatology Integument insp & palp - left upper extremity Location: on the upper arm 05/24/2018 None Full Exam - Dermatology Integument insp & palp - left upper extremity Color: erythematous 05/24/2018 None Full Exam - Dermatology Integument insp & palp - right upper extremity Lesion: patch 05/24/2018 None Full Exam - Dermatology Integument insp & palp - right upper extremity Location: on the upper arm 05/24/2018 None Full Exam - Dermatology Integument insp & palp - right upper extremity Location: on the forearm 05/24/2018 None Full Exam - Dermatology Integument insp & palp - right upper extremity Color: erythematous 05/24/2018 None Full Exam - General 1994 Constitutional general appearance Overall: well developed 05/19/2018 None Full Exam - General 1994 Constitutional general appearance Overall: in no acute distress 05/19/2018 None Full Exam - General 1994 Constitutional general appearance Overall: well nourished 05/19/2018 None Full Exam - General 1994 Eyes conjunctiva/eyelids Overall: conjunctiva clear 05/19/2018 None Full Exam - General 1994 Ears/Nose/Throat otoscopic exam Overall: external auditory canals clear 05/19/2018 None Full Exam - General 1994 Ears/Nose/Throat otoscopic exam Overall: tympanic membranes clear 05/19/2018 None Full Exam - General 1994 Ears/Nose/Throat oral cavity/pharynx/larynx Overall: oral mucosa clear 05/19/2018 None Full Exam - General 1994 Respiratory auscultation Overall: breath sounds clear bilaterally 05/19/2018 None Full Exam - General 1994 Respiratory respiratory effort/rhythm Overall: no retractions 05/19/2018 None Full Exam - General 1994 Respiratory respiratory effort/rhythm Overall: normal rate 05/19/2018 None Full Exam - General 1994 Cardiovascular auscultation of heart Overall: regular rate 05/19/2018 None Full Exam - General 1994 Cardiovascular auscultation of heart Overall: normal heart sounds 05/19/2018 None Full Exam - General 1994 Abdomen abdominal exam Overall: no tenderness 05/19/2018 None Full Exam - General 1994 Abdomen abdominal exam Overall: normal bowel sounds 05/19/2018 None Full Exam - General 1994 Lymphatic neck nodes Overall: anterior cervical chain benign 05/19/2018 None Full Exam - General 1994 Lymphatic neck nodes Overall: posterior cervical chain benign 05/19/2018 None Full Exam - General 1994 Musculoskeletal spine, ribs and pelvis Posture: scoliosis 05/19/2018 None Full Exam - General 1994 Neurologic deep tendon reflexes Overall: deep tendon reflexes intact 05/19/2018 None Full Exam - General 1994 Neurologic cranial nerves Overall: crainial nerves 2 - 12 grossly intact 05/19/2018 None Full Exam - General 1994 Psychiatric orientation/consciousness Overall: oriented to person, place and time 05/19/2018 None Full Exam - General 1994 Constitutional general appearance Overall: well developed 01/12/2018 None Full Exam - General 1994 Constitutional general appearance Overall: in no acute distress 01/12/2018 None Full Exam - General 1994 Constitutional general appearance Overall: well nourished 01/12/2018 None Full Exam - General 1994 Eyes conjunctiva/eyelids Overall: conjunctiva clear 01/12/2018 None Full Exam - General 1994 Ears/Nose/Throat otoscopic exam Overall: external auditory canals clear 01/12/2018 None Full Exam - General 1994 Ears/Nose/Throat otoscopic exam Overall: tympanic membranes clear 01/12/2018 None Full Exam - General 1994 Ears/Nose/Throat oral cavity/pharynx/larynx Overall: oral mucosa clear 01/12/2018 None Full Exam - General 1994 Respiratory auscultation Overall: breath sounds clear bilaterally 01/12/2018 None Full Exam - General 1994 Respiratory respiratory effort/rhythm Overall: no retractions 01/12/2018 None Full Exam - General 1994 Respiratory respiratory effort/rhythm Overall: normal rate 01/12/2018 None Full Exam - General 1994 Cardiovascular auscultation of heart Overall: regular rate 01/12/2018 None Full Exam - General 1994 Cardiovascular auscultation of heart Overall: normal heart sounds 01/12/2018 None Full Exam - General 1994 Abdomen abdominal exam Overall: no tenderness 01/12/2018 None Full Exam - General 1994 Abdomen abdominal exam Overall: normal bowel sounds 01/12/2018 None Full Exam - General 1994 Lymphatic neck nodes Overall: anterior cervical chain benign 01/12/2018 None Full Exam - General 1994 Lymphatic neck nodes Overall: posterior cervical chain benign 01/12/2018 None Full Exam - General 1994 Musculoskeletal spine, ribs and pelvis Posture: scoliosis 01/12/2018 None Full Exam - General 1994 Neurologic deep tendon reflexes Overall: deep tendon reflexes intact 01/12/2018 None Full Exam - General 1994 Neurologic cranial nerves Overall: crainial nerves 2 - 12 grossly intact 01/12/2018 None Full Exam - General 1994 Psychiatric orientation/consciousness Overall: oriented to person, place and time 01/12/2018 None Full Exam - General 1994 Constitutional general appearance Overall: well developed 10/12/2017 None Full Exam - General 1994 Constitutional general appearance Overall: in no acute distress 10/12/2017 None Full Exam - General 1994 Constitutional general appearance Overall: well nourished 10/12/2017 None Full Exam - General 1994 Eyes conjunctiva/eyelids Overall: conjunctiva clear 10/12/2017 None Full Exam - General 1994 Ears/Nose/Throat otoscopic exam Overall: external auditory canals clear 10/12/2017 None Full Exam - General 1994 Ears/Nose/Throat otoscopic exam Overall: tympanic membranes clear 10/12/2017 None Full Exam - General 1994 Ears/Nose/Throat oral cavity/pharynx/larynx Overall: oral mucosa clear 10/12/2017 None Full Exam - General 1994 Respiratory auscultation Overall: breath sounds clear bilaterally 10/12/2017 None Full Exam - General 1994 Respiratory respiratory effort/rhythm Overall: no retractions 10/12/2017 None Full Exam - General 1994 Respiratory respiratory effort/rhythm Overall: normal rate 10/12/2017 None Full Exam - General 1994 Cardiovascular auscultation of heart Overall: regular rate 10/12/2017 None Full Exam - General 1994 Cardiovascular auscultation of heart Overall: normal heart sounds 10/12/2017 None Full Exam - General 1994 Abdomen abdominal exam Overall: no tenderness 10/12/2017 None Full Exam - General 1994 Abdomen abdominal exam Overall: normal bowel sounds 10/12/2017 None Full Exam - General 1994 Lymphatic neck nodes Overall: anterior cervical chain benign 10/12/2017 None Full Exam - General 1994 Lymphatic neck nodes Overall: posterior cervical chain benign 10/12/2017 None Full Exam - General 1994 Musculoskeletal spine, ribs and pelvis Posture: scoliosis 10/12/2017 None Full Exam - General 1994 Neurologic deep tendon reflexes Overall: deep tendon reflexes intact 10/12/2017 None Full Exam - General 1994 Neurologic cranial nerves Overall: crainial nerves 2 - 12 grossly intact 10/12/2017 None Full Exam - General 1994 Psychiatric orientation/consciousness Overall: oriented to person, place and time 10/12/2017 None Full Exam - General 1994 Constitutional general appearance Overall: well developed 08/06/2017 None Full Exam - General 1994 Constitutional general appearance Overall: in no acute distress 08/06/2017 None Full Exam - General 1994 Constitutional general appearance Overall: well nourished 08/06/2017 None Full Exam - General 1994 Eyes conjunctiva/eyelids Overall: conjunctiva clear 08/06/2017 None Full Exam - General 1994 Ears/Nose/Throat otoscopic exam Overall: external auditory canals clear 08/06/2017 None Full Exam - General 1994 Ears/Nose/Throat otoscopic exam Overall: tympanic membranes clear 08/06/2017 None Full Exam - General 1994 Ears/Nose/Throat oral cavity/pharynx/larynx Overall: oral mucosa clear 08/06/2017 None Full Exam - General 1994 Respiratory auscultation Overall: breath sounds clear bilaterally 08/06/2017 None Full Exam - General 1994 Respiratory respiratory effort/rhythm Overall: no retractions 08/06/2017 None Full Exam - General 1994 Respiratory respiratory effort/rhythm Overall: normal rate 08/06/2017 None Full Exam - General 1994 Cardiovascular auscultation of heart Overall: regular rate 08/06/2017 None Full Exam - General 1994 Cardiovascular auscultation of heart Overall: normal heart sounds 08/06/2017 None Full Exam - General 1994 Abdomen abdominal exam Overall: no tenderness 08/06/2017 None Full Exam - General 1994 Abdomen abdominal exam Overall: normal bowel sounds 08/06/2017 None Full Exam - General 1994 Lymphatic neck nodes Overall: anterior cervical chain benign 08/06/2017 None Full Exam - General 1994 Lymphatic neck nodes Overall: posterior cervical chain benign 08/06/2017 None Full Exam - General 1994 Musculoskeletal spine, ribs and pelvis Posture: scoliosis 08/06/2017 None Full Exam - General 1994 Neurologic deep tendon reflexes Overall: deep tendon reflexes intact 08/06/2017 None Full Exam - General 1994 Neurologic cranial nerves Overall: crainial nerves 2 - 12 grossly intact 08/06/2017 None Full Exam - General 1994 Psychiatric orientation/consciousness Overall: oriented to person, place and time 08/06/2017 None Full Exam - General 1994 Constitutional general appearance Overall: well developed 05/13/2017 None Full Exam - General 1994 Constitutional general appearance Overall: in no acute distress 05/13/2017 None Full Exam - General 1994 Constitutional general appearance Overall: well nourished 05/13/2017 None Full Exam - General 1994 Eyes conjunctiva/eyelids Overall: conjunctiva clear 05/13/2017 None Full Exam - General 1994 Ears/Nose/Throat otoscopic exam Overall: external auditory canals clear 05/13/2017 None Full Exam - General 1994 Ears/Nose/Throat otoscopic exam Overall: tympanic membranes clear 05/13/2017 None Full Exam - General 1994 Ears/Nose/Throat oral cavity/pharynx/larynx Overall: oral mucosa clear 05/13/2017 None Full Exam - General 1994 Respiratory auscultation Overall: breath sounds clear bilaterally 05/13/2017 None Full Exam - General 1994 Respiratory respiratory effort/rhythm Overall: no retractions 05/13/2017 None Full Exam - General 1994 Respiratory respiratory effort/rhythm Overall: normal rate 05/13/2017 None Full Exam - General 1994 Cardiovascular auscultation of heart Overall: regular rate 05/13/2017 None Full Exam - General 1994 Cardiovascular auscultation of heart Overall: normal heart sounds 05/13/2017 None Full Exam - General 1994 Abdomen abdominal exam Overall: no tenderness 05/13/2017 None Full Exam - General 1994 Abdomen abdominal exam Overall: normal bowel sounds 05/13/2017 None Full Exam - General 1994 Lymphatic neck nodes Overall: anterior cervical chain benign 05/13/2017 None Full Exam - General 1994 Lymphatic neck nodes Overall: posterior cervical chain benign 05/13/2017 None Full Exam - General 1994 Musculoskeletal spine, ribs and pelvis Posture: scoliosis 05/13/2017 None Full Exam - General 1994 Neurologic deep tendon reflexes Overall: deep tendon reflexes intact 05/13/2017 None Full Exam - General 1994 Neurologic cranial nerves Overall: crainial nerves 2 - 12 grossly intact 05/13/2017 None Full Exam - General 1994 Psychiatric orientation/consciousness Overall: oriented to person, place and time 05/13/2017 None Full Exam - General 1994 Constitutional general appearance Overall: well developed 03/19/2017 None Full Exam - General 1994 Constitutional general appearance Overall: in no acute distress 03/19/2017 None Full Exam - General 1994 Constitutional general appearance Overall: well nourished 03/19/2017 None Full Exam - General 1994 Eyes conjunctiva/eyelids Overall: conjunctiva clear 03/19/2017 None Full Exam - General 1994 Ears/Nose/Throat oral cavity/pharynx/larynx Overall: oral mucosa clear 03/19/2017 None Full Exam - General 1994 Respiratory auscultation Overall: breath sounds clear bilaterally 03/19/2017 None Full Exam - General 1994 Respiratory respiratory effort/rhythm Overall: no retractions 03/19/2017 None Full Exam - General 1994 Respiratory respiratory effort/rhythm Overall: normal rate 03/19/2017 None Full Exam - General 1994 Cardiovascular auscultation of heart Overall: regular rate 03/19/2017 None Full Exam - General 1994 Cardiovascular auscultation of heart Overall: normal heart sounds 03/19/2017 None Full Exam - General 1994 Musculoskeletal spine, ribs and pelvis Posture: scoliosis 03/19/2017 None Full Exam - General 1994 Neurologic cranial nerves Overall: crainial nerves 2 - 12 grossly intact 03/19/2017 None Full Exam - General 1994 Psychiatric orientation/consciousness Overall: oriented to person, place and time 03/19/2017 None Full Exam - General 1994 Psychiatric mood and affect Overall: normal mood and affect 03/19/2017 None Full Exam - General 1994 Constitutional general appearance Overall: well developed 03/18/2017 None Full Exam - General 1994 Constitutional general appearance Overall: in no acute distress 03/18/2017 None Full Exam - General 1994 Constitutional general appearance Overall: well nourished 03/18/2017 None Full Exam - General 1994 Eyes conjunctiva/eyelids Overall: conjunctiva clear 03/18/2017 None Full Exam - General 1994 Ears/Nose/Throat otoscopic exam Overall: external auditory canals clear 03/18/2017 None Full Exam - General 1994 Ears/Nose/Throat otoscopic exam Overall: tympanic membranes clear 03/18/2017 None Full Exam - General 1994 Ears/Nose/Throat oral cavity/pharynx/larynx Overall: oral mucosa clear 03/18/2017 None Full Exam - General 1994 Respiratory auscultation Overall: breath sounds clear bilaterally 03/18/2017 None Full Exam - General 1994 Respiratory respiratory effort/rhythm Overall: no retractions 03/18/2017 None Full Exam - General 1994 Respiratory respiratory effort/rhythm Overall: normal rate 03/18/2017 None Full Exam - General 1994 Cardiovascular auscultation of heart Overall: regular rate 03/18/2017 None Full Exam - General 1994 Cardiovascular auscultation of heart Overall: normal heart sounds 03/18/2017 None Full Exam - General 1994 Abdomen abdominal exam Overall: no tenderness 03/18/2017 None Full Exam - General 1994 Abdomen abdominal exam Overall: normal bowel sounds 03/18/2017 None Full Exam - General 1994 Lymphatic neck nodes Overall: anterior cervical chain benign 03/18/2017 None Full Exam - General 1994 Lymphatic neck nodes Overall: posterior cervical chain benign 03/18/2017 None Full Exam - General 1994 Musculoskeletal spine, ribs and pelvis Posture: scoliosis 03/18/2017 None Full Exam - General 1994 Neurologic deep tendon reflexes Overall: deep tendon reflexes intact 03/18/2017 None Full Exam - General 1994 Neurologic cranial nerves Overall: crainial nerves 2 - 12 grossly intact 03/18/2017 None Full Exam - General 1994 Psychiatric orientation/consciousness Overall: oriented to person, place and time 03/18/2017 None Full Exam - General 1994 Constitutional general appearance Overall: well developed 01/27/2017 None Full Exam - General 1994 Constitutional general appearance Overall: in no acute distress 01/27/2017 None Full Exam - General 1994 Constitutional general appearance Overall: well nourished 01/27/2017 None Full Exam - General 1994 Eyes conjunctiva/eyelids Overall: conjunctiva clear 01/27/2017 None Full Exam - General 1994 Ears/Nose/Throat otoscopic exam Overall: external auditory canals clear 01/27/2017 None Full Exam - General 1994 Ears/Nose/Throat otoscopic exam Overall: tympanic membranes clear 01/27/2017 None Full Exam - General 1994 Ears/Nose/Throat oral cavity/pharynx/larynx Overall: oral mucosa clear 01/27/2017 None Full Exam - General 1994 Respiratory auscultation Overall: breath sounds clear bilaterally 01/27/2017 None Full Exam - General 1994 Respiratory respiratory effort/rhythm Overall: no retractions 01/27/2017 None Full Exam - General 1994 Respiratory respiratory effort/rhythm Overall: normal rate 01/27/2017 None Full Exam - General 1994 Cardiovascular auscultation of heart Overall: regular rate 01/27/2017 None Full Exam - General 1994 Cardiovascular auscultation of heart Overall: normal heart sounds 01/27/2017 None Full Exam - General 1994 Abdomen abdominal exam Overall: no tenderness 01/27/2017 None Full Exam - General 1994 Abdomen abdominal exam Overall: normal bowel sounds 01/27/2017 None Full Exam - General 1994 Lymphatic neck nodes Overall: anterior cervical chain benign 01/27/2017 None Full Exam - General 1994 Lymphatic neck nodes Overall: posterior cervical chain benign 01/27/2017 None Full Exam - General 1994 Musculoskeletal spine, ribs and pelvis Posture: scoliosis 01/27/2017 None Full Exam - General 1994 Neurologic deep tendon reflexes Overall: deep tendon reflexes intact 01/27/2017 None Full Exam - General 1994 Neurologic cranial nerves Overall: crainial nerves 2 - 12 grossly intact 01/27/2017 None Full Exam - General 1994 Psychiatric orientation/consciousness Overall: oriented to person, place and time 01/27/2017 None Full Exam - ENT Constitutional general appearance Overall: well nourished 12/29/2016 None Full Exam - ENT Constitutional general appearance Overall: well developed 12/29/2016 None Full Exam - ENT Constitutional general appearance Overall: in no acute distress 12/29/2016 None Full Exam - ENT Neurologic orientation Overall: oriented to person, place a nd time 12/29/2016 None Full Exam - ENT Lymphatic palpation of lymph nodes Overall: posterior cervical chain benign 12/29/2016 None Full Exam - ENT Lymphatic palpation of lymph nodes Overall: anterior cervical chain benign 12/29/2016 None Full Exam - ENT Integument inspection of skin Overall: no rash, lesions 12/29/2016 None Full Exam - ENT Cardiovascular auscultation of heart Overall: regular rate 12/29/2016 None Full Exam - ENT Cardiovascular auscultation of heart Overall: normal heart sounds 12/29/2016 None Full Exam - ENT Respiratory auscultation Overall: breath sounds clear bilater ally 12/29/2016 None Full Exam - ENT Respiratory inspection Overall: normal rate None Full Exam - ENT Respiratory inspection Overall: no retractions 12/29/2016 None Full Exam - ENT Face and Head palpation Right maxillary sinus: tender 12/29/2016 None Full Exam - ENT Face and Head palpation Left maxillary sinus: tender 12/29/2016 None Full Exam - ENT Ears/Nose/Throat otoscopic exam Left external auditory canal: minima l cerumen 12/29/2016 None Full Exam - ENT Ears/Nose/Throat otoscopic exam Right external auditory canal: minim al cerumen 12/29/2016 None Full Exam - ENT Ears/Nose/Throat otoscopic exam Left tympanic membrane: air-fluid le dash 12/29/2016 None Full Exam - ENT Ears/Nose/Throat otoscopic exam Right tympanic membrane: intact 12/29/2016 None Full Exam - ENT Ears/Nose/Throat otoscopic exam Left tympanic membrane: intact 12/29/2016 None Full Exam - ENT Ears/Nose/Throat oropharynx Overall: oral mucosa clear 12/29/2016 None Full Exam - General 1994 Constitutional general appearance Overall: well developed 11/19/2016 None Full Exam - General 1994 Constitutional general appearance Overall: in no acute distress 11/19/2016 None Full Exam - General 1994 Constitutional general appearance Overall: well nourished 11/19/2016 None Full Exam - General 1994 Eyes conjunctiva/eyelids Overall: conjunctiva clear 11/19/2016 None Full Exam - General 1994 Ears/Nose/Throat otoscopic exam Overall: external auditory canals clear 11/19/2016 None Full Exam - General 1994 Ears/Nose/Throat otoscopic exam Overall: tympanic membranes clear 11/19/2016 None Full Exam - General 1994 Ears/Nose/Throat oral cavity/pharynx/larynx Overall: oral mucosa clear 11/19/2016 None Full Exam - General 1994 Respiratory auscultation Overall: breath sounds clear bilaterally 11/19/2016 None Full Exam - General 1994 Respiratory respiratory effort/rhythm Overall: no retractions 11/19/2016 None Full Exam - General 1994 Respiratory respiratory effort/rhythm Overall: normal rate 11/19/2016 None Full Exam - General 1994 Cardiovascular auscultation of heart Overall: regular rate 11/19/2016 None Full Exam - General 1994 Cardiovascular auscultation of heart Overall: normal heart sounds 11/19/2016 None Full Exam - General 1994 Abdomen abdominal exam Overall: no tenderness 11/19/2016 None Full Exam - General 1994 Abdomen abdominal exam Overall: normal bowel sounds 11/19/2016 None Full Exam - General 1994 Lymphatic neck nodes Overall: anterior cervical chain benign 11/19/2016 None Full Exam - General 1994 Lymphatic neck nodes Overall: posterior cervical chain benign 11/19/2016 None Full Exam - General 1994 Musculoskeletal spine, ribs and pelvis Posture: scoliosis 11/19/2016 None Full Exam - General 1994 Neurologic deep tendon reflexes Overall: deep tendon reflexes intact 11/19/2016 None Full Exam - General 1994 Neurologic cranial nerves Overall: crainial nerves 2 - 12 grossly intact 11/19/2016 None Full Exam - General 1994 Psychiatric orientation/consciousness Overall: oriented to person, place and time 11/19/2016 None Full Exam - General 1994 Constitutional general appearance Overall: well developed 08/13/2016 None Full Exam - General 1994 Constitutional general appearance Overall: in no acute distress 08/13/2016 None Full Exam - General 1994 Constitutional general appearance Overall: well nourished 08/13/2016 None Full Exam - General 1994 Eyes conjunctiva/eyelids Overall: conjunctiva clear 08/13/2016 None Full Exam - General 1994 Ears/Nose/Throat otoscopic exam Overall: external auditory canals clear 08/13/2016 None Full Exam - General 1994 Ears/Nose/Throat otoscopic exam Overall: tympanic membranes clear 08/13/2016 None Full Exam - General 1994 Ears/Nose/Throat oral cavity/pharynx/larynx Overall: oral mucosa clear 08/13/2016 None Full Exam - General 1994 Respiratory auscultation Overall: breath sounds clear bilaterally 08/13/2016 None Full Exam - General 1994 Respiratory respiratory effort/rhythm Overall: no retractions 08/13/2016 None Full Exam - General 1994 Respiratory respiratory effort/rhythm Overall: normal rate 08/13/2016 None Full Exam - General 1994 Cardiovascular auscultation of heart Overall: normal heart sounds 08/13/2016 None Full Exam - General 1994 Cardiovascular auscultation of heart Rate: tachycardia 08/13/2016 None Full Exam - General 1994 Abdomen abdominal exam Overall: no tenderness 08/13/2016 None Full Exam - General 1994 Abdomen abdominal exam Overall: normal bowel sounds 08/13/2016 None Full Exam - General 1994 Musculoskeletal spine, ribs and pelvis Posture: scoliosis 08/13/2016 None Full Exam - General 1994 Neurologic deep tendon reflexes Overall: deep tendon reflexes intact 08/13/2016 None Full Exam - General 1994 Neurologic cranial nerves Overall: crainial nerves 2 - 12 grossly intact 08/13/2016 None Full Exam - General 1994 Psychiatric orientation/consciousness Overall: oriented to person, place and time 08/13/2016 None Full Exam - General 1994 Constitutional general appearance Overall: well developed 07/03/2016 None Full Exam - General 1994 Constitutional general appearance Overall: in no acute distress 07/03/2016 None Full Exam - General 1994 Constitutional general appearance Overall: well nourished 07/03/2016 None Full Exam - General 1994 Eyes conjunctiva/eyelids Overall: conjunctiva clear 07/03/2016 None Full Exam - General 1994 Ears/Nose/Throat otoscopic exam Overall: external auditory canals clear 07/03/2016 None Full Exam - General 1994 Ears/Nose/Throat otoscopic exam Overall: tympanic membranes clear 07/03/2016 None Full Exam - General 1994 Ears/Nose/Throat oral cavity/pharynx/larynx Overall: oral mucosa clear 07/03/2016 None Full Exam - General 1994 Respiratory auscultation Overall: breath sounds clear bilaterally 07/03/2016 None Full Exam - General 1994 Respiratory respiratory effort/rhythm Overall: no retractions 07/03/2016 None Full Exam - General 1994 Respiratory respiratory effort/rhythm Overall: normal rate 07/03/2016 None Full Exam - General 1994 Cardiovascular auscultation of heart Overall: normal heart sounds 07/03/2016 None Full Exam - General 1994 Cardiovascular auscultation of heart Rate: tachycardia 07/03/2016 None Full Exam - General 1994 Abdomen abdominal exam Overall: no tenderness 07/03/2016 None Full Exam - General 1994 Abdomen abdominal exam Overall: normal bowel sounds 07/03/2016 None Full Exam - General 1994 Lymphatic neck nodes Overall: anterior cervical chain benign 07/03/2016 None Full Exam - General 1994 Lymphatic neck nodes Overall: posterior cervical chain benign 07/03/2016 None Full Exam - General 1994 Musculoskeletal spine, ribs and pelvis Posture: scoliosis 07/03/2016 None Full Exam - General 1994 Integument inspection of skin Location: neck 07/03/2016 posterior mid-line lipoma Full Exam - General 1994 Neurologic deep tendon reflexes Overall: deep tendon reflexes intact 07/03/2016 None Full Exam - General 1994 Neurologic cranial nerves Overall: crainial nerves 2 - 12 grossly intact 07/03/2016 None Full Exam - General 1994 Psychiatric orientation/consciousness Overall: oriented to person, place and time 07/03/2016 None Full Exam - General 1994 Constitutional general appearance Overall: well developed 05/07/2016 None Full Exam - General 1994 Constitutional general appearance Overall: in no acute distress 05/07/2016 None Full Exam - General 1994 Constitutional general appearance Overall: well nourished 05/07/2016 None Full Exam - General 1994 Eyes conjunctiva/eyelids Overall: conjunctiva clear 05/07/2016 None Full Exam - General 1994 Ears/Nose/Throat otoscopic exam Overall: external auditory canals clear 05/07/2016 None Full Exam - General 1994 Ears/Nose/Throat otoscopic exam Overall: tympanic membranes clear 05/07/2016 None Full Exam - General 1994 Ears/Nose/Throat oral cavity/pharynx/larynx Overall: oral mucosa clear 05/07/2016 None Full Exam - General 1994 Respiratory auscultation Overall: breath sounds clear bilaterally 05/07/2016 None Full Exam - General 1994 Respiratory respiratory effort/rhythm Overall: no retractions 05/07/2016 None Full Exam - General 1994 Respiratory respiratory effort/rhythm Overall: normal rate 05/07/2016 None Full Exam - General 1994 Cardiovascular auscultation of heart Overall: normal heart sounds 05/07/2016 None Full Exam - General 1994 Cardiovascular auscultation of heart Rate: tachycardia 05/07/2016 None Full Exam - General 1994 Abdomen abdominal exam Overall: no tenderness 05/07/2016 None Full Exam - General 1994 Abdomen abdominal exam Overall: normal bowel sounds 05/07/2016 None Full Exam - General 1994 Lymphatic neck nodes Overall: anterior cervical chain benign 05/07/2016 None Full Exam - General 1994 Lymphatic neck nodes Overall: posterior cervical chain benign 05/07/2016 None Full Exam - General 1994 Musculoskeletal spine, ribs and pelvis Posture: scoliosis 05/07/2016 None Full Exam - General 1994 Integument inspection of skin Location: neck 05/07/2016 posterior mid-line lipoma Full Exam - General 1994 Neurologic deep tendon reflexes Overall: deep tendon reflexes intact 05/07/2016 None Full Exam - General 1994 Neurologic cranial nerves Overall: crainial nerves 2 - 12 grossly intact 05/07/2016 None Full Exam - General 1994 Psychiatric orientation/consciousness Overall: oriented to person, place and time 05/07/2016 None Full Exam - General 1994 Constitutional general appearance Overall: well developed 04/08/2016 None Full Exam - General 1994 Constitutional general appearance Overall: in no acute distress 04/08/2016 None Full Exam - General 1994 Constitutional general appearance Overall: well nourished 04/08/2016 None Full Exam - General 1994 Eyes conjunctiva/eyelids Overall: conjunctiva clear 04/08/2016 None Full Exam - General 1994 Ears/Nose/Throat otoscopic exam Overall: external auditory canals clear 04/08/2016 None Full Exam - General 1994 Ears/Nose/Throat otoscopic exam Overall: tympanic membranes clear 04/08/2016 None Full Exam - General 1994 Ears/Nose/Throat oral cavity/pharynx/larynx Overall: oral mucosa clear 04/08/2016 None Full Exam - General 1994 Respiratory auscultation Overall: breath sounds clear bilaterally 04/08/2016 None Full Exam - General 1994 Respiratory respiratory effort/rhythm Overall: no retractions 04/08/2016 None Full Exam - General 1994 Respiratory respiratory effort/rhythm Overall: normal rate 04/08/2016 None Full Exam - General 1994 Cardiovascular auscultation of heart Overall: normal heart sounds 04/08/2016 None Full Exam - General 1994 Cardiovascular auscultation of heart Rate: tachycardia 04/08/2016 None Full Exam - General 1994 Abdomen abdominal exam Overall: no tenderness 04/08/2016 None Full Exam - General 1994 Abdomen abdominal exam Overall: normal bowel sounds 04/08/2016 None Full Exam - General 1994 Lymphatic neck nodes Overall: anterior cervical chain benign 04/08/2016 None Full Exam - General 1994 Lymphatic neck nodes Overall: posterior cervical chain benign 04/08/2016 None Full Exam - General 1994 Musculoskeletal spine, ribs and pelvis Posture: scoliosis 04/08/2016 None Full Exam - General 1994 Integument inspection of skin Location: neck 04/08/2016 posterior mid-line lipoma Full Exam - General 1994 Neurologic deep tendon reflexes Overall: deep tendon reflexes intact 04/08/2016 None Full Exam - General 1994 Neurologic cranial nerves Overall: crainial nerves 2 - 12 grossly intact 04/08/2016 None Full Exam - General 1994 Psychiatric orientation/consciousness Overall: oriented to person, place and time 04/08/2016 None Full Exam - General 1994 Constitutional general appearance Overall: well developed 03/11/2016 None Full Exam - General 1994 Constitutional general appearance Overall: in no acute distress 03/11/2016 None Full Exam - General 1994 Constitutional general appearance Overall: well nourished 03/11/2016 None Full Exam - General 1994 Eyes conjunctiva/eyelids Overall: conjunctiva clear 03/11/2016 None Full Exam - General 1994 Ears/Nose/Throat otoscopic exam Overall: external auditory canals clear 03/11/2016 None Full Exam - General 1994 Ears/Nose/Throat otoscopic exam Overall: tympanic membranes clear 03/11/2016 None Full Exam - General 1994 Ears/Nose/Throat oral cavity/pharynx/larynx Overall: oral mucosa clear 03/11/2016 None Full Exam - General 1994 Respiratory auscultation Overall: breath sounds clear bilaterally 03/11/2016 None Full Exam - General 1994 Respiratory respiratory effort/rhythm Overall: no retractions 03/11/2016 None Full Exam - General 1994 Respiratory respiratory effort/rhythm Overall: normal rate 03/11/2016 None Full Exam - General 1994 Cardiovascular auscultation of heart Overall: normal heart sounds 03/11/2016 None Full Exam - General 1994 Abdomen abdominal exam Overall: no tenderness 03/11/2016 None Full Exam - General 1994 Abdomen abdominal exam Overall: normal bowel sounds 03/11/2016 None Full Exam - General 1994 Lymphatic neck nodes Overall: anterior cervical chain benign 03/11/2016 None Full Exam - General 1994 Lymphatic neck nodes Overall: posterior cervical chain benign 03/11/2016 None Full Exam - General 1994 Musculoskeletal spine, ribs and pelvis Posture: scoliosis 03/11/2016 None Full Exam - General 1994 Neurologic cranial nerves Overall: crainial nerves 2 - 12 grossly intact 03/11/2016 None Full Exam - General 1994 Psychiatric orientation/consciousness Overall: oriented to person, place and time 03/11/2016 None Full Exam - General 1994 Ears/Nose/Throat lips/teeth/gingiva Overall: benign lips 03/11/2016 None Full Exam - General 1994 Ears/Nose/Throat oral cavity/pharynx/larynx Overall: oropharyngeal mucosa clear 03/11/2016 None Full Exam - General 1994 Ears/Nose/Throat oral cavity/pharynx/larynx Overall: no masses 03/11/2016 None Full Exam - General 1994 Cardiovascular auscultation of heart Overall: regular rate 03/11/2016 None Full Exam - General 1994 Musculoskeletal gait and station Overall: normal gait 03/11/2016 None Full Exam - General 1994 Musculoskeletal gait and station Overall: normal station 03/11/2016 None Full Exam - General 1994 Musculoskeletal head and neck Overall: head atraumatic 03/11/2016 None Full Exam - General 1994 Integument inspection of skin Overall: no rash, lesions 03/11/2016 None Full Exam - General 1994 Neurologic gait Overall: no ataxia, no unsteadiness 03/11/2016 None Full Exam - General 1994 Psychiatric mood and affect Overall: normal mood and affect 03/11/2016 None Full Exam - General 1994 Psychiatric appearance Overall: well-groomed, good eye contact 03/11/2016 None Full Exam - General 1994 Constitutional general appearance Overall: well developed 12/27/2015 None Full Exam - General 1994 Constitutional general appearance Overall: in no acute distress 12/27/2015 None Full Exam - General 1994 Constitutional general appearance Overall: well nourished 12/27/2015 None Full Exam - General 1994 Eyes conjunctiva/eyelids Overall: conjunctiva clear 12/27/2015 None Full Exam - General 1994 Ears/Nose/Throat otoscopic exam Overall: external auditory canals clear 12/27/2015 None Full Exam - General 1994 Ears/Nose/Throat otoscopic exam Overall: tympanic membranes clear 12/27/2015 None Full Exam - General 1994 Ears/Nose/Throat oral cavity/pharynx/larynx Overall: oral mucosa clear 12/27/2015 None Full Exam - General 1994 Respiratory auscultation Overall: breath sounds clear bilaterally 12/27/2015 None Full Exam - General 1994 Respiratory respiratory effort/rhythm Overall: no retractions 12/27/2015 None Full Exam - General 1994 Respiratory respiratory effort/rhythm Overall: normal rate 12/27/2015 None Full Exam - General 1994 Cardiovascular auscultation of heart Overall: normal heart sounds 12/27/2015 None Full Exam - General 1994 Abdomen abdominal exam Overall: no tenderness 12/27/2015 None Full Exam - General 1994 Abdomen abdominal exam Overall: normal bowel sounds 12/27/2015 None Full Exam - General 1994 Lymphatic neck nodes Overall: anterior cervical chain benign 12/27/2015 None Full Exam - General 1994 Lymphatic neck nodes Overall: posterior cervical chain benign 12/27/2015 None Full Exam - General 1994 Musculoskeletal spine, ribs and pelvis Posture: scoliosis 12/27/2015 None Full Exam - General 1994 Integument inspection of skin Location: neck 12/27/2015 posterior mid-line lipoma Full Exam - General 1994 Neurologic deep tendon reflexes Overall: deep tendon reflexes intact 12/27/2015 None Full Exam - General 1994 Neurologic cranial nerves Overall: crainial nerves 2 - 12 grossly intact 12/27/2015 None Full Exam - General 1994 Psychiatric orientation/consciousness Overall: oriented to person, place and time 12/27/2015 None Full Exam - General 1994 Cardiovascular auscultation of heart Rate: tachycardia 12/27/2015 None Full Exam - General 1994 Constitutional general appearance Overall: well developed 09/24/2015 None Full Exam - General 1994 Constitutional general appearance Overall: in no acute distress 09/24/2015 None Full Exam - General 1994 Constitutional general appearance Overall: well nourished 09/24/2015 None Full Exam - General 1994 Eyes conjunctiva/eyelids Overall: conjunctiva clear 09/24/2015 None Full Exam - General 1994 Ears/Nose/Throat otoscopic exam Overall: external auditory canals clear 09/24/2015 None Full Exam - General 1994 Ears/Nose/Throat otoscopic exam Overall: tympanic membranes clear 09/24/2015 None Full Exam - General 1994 Ears/Nose/Throat oral cavity/pharynx/larynx Overall: oral mucosa clear 09/24/2015 None Full Exam - General 1994 Respiratory auscultation Overall: breath sounds clear bilaterally 09/24/2015 None Full Exam - General 1994 Respiratory respiratory effort/rhythm Overall: no retractions 09/24/2015 None Full Exam - General 1994 Respiratory respiratory effort/rhythm Overall: normal rate 09/24/2015 None Full Exam - General 1994 Cardiovascular auscultation of heart Overall: regular rate 09/24/2015 None Full Exam - General 1994 Cardiovascular auscultation of heart Overall: normal heart sounds 09/24/2015 None Full Exam - General 1994 Abdomen abdominal exam Overall: no tenderness 09/24/2015 None Full Exam - General 1994 Abdomen abdominal exam Overall: normal bowel sounds 09/24/2015 None Full Exam - General 1994 Lymphatic neck nodes Overall: anterior cervical chain benign 09/24/2015 None Full Exam - General 1994 Lymphatic neck nodes Overall: posterior cervical chain benign 09/24/2015 None Full Exam - General 1994 Musculoskeletal spine, ribs and pelvis Posture: scoliosis 09/24/2015 None Full Exam - General 1994 Neurologic deep tendon reflexes Overall: deep tendon reflexes intact 09/24/2015 None Full Exam - General 1994 Neurologic cranial nerves Overall: crainial nerves 2 - 12 grossly intact 09/24/2015 None Full Exam - General 1994 Psychiatric orientation/consciousness Overall: oriented to person, place and time 09/24/2015 None Full Exam - General 1994 Integument inspection of skin Location: neck 09/24/2015 posterior mid-line lipoma Full Exam - General 1994 Constitutional general appearance Overall: well developed 06/26/2015 None Full Exam - General 1994 Constitutional general appearance Overall: in no acute distress 06/26/2015 None Full Exam - General 1994 Eyes conjunctiva/eyelids Overall: conjunctiva clear 06/26/2015 None Full Exam - General 1994 Ears/Nose/Throat otoscopic exam Overall: external auditory canals clear 06/26/2015 None Full Exam - General 1994 Ears/Nose/Throat otoscopic exam Overall: tympanic membranes clear 06/26/2015 None Full Exam - General 1994 Ears/Nose/Throat oral cavity/pharynx/larynx Overall: oral mucosa clear 06/26/2015 None Full Exam - General 1994 Respiratory auscultation Overall: breath sounds clear bilaterally 06/26/2015 None Full Exam - General 1994 Respiratory respiratory effort/rhythm Overall: no retractions 06/26/2015 None Full Exam - General 1994 Respiratory respiratory effort/rhythm Overall: normal rate 06/26/2015 None Full Exam - General 1994 Cardiovascular auscultation of heart Overall: regular rate 06/26/2015 None Full Exam - General 1994 Cardiovascular auscultation of heart Overall: normal heart sounds 06/26/2015 None Full Exam - General 1994 Abdomen abdominal exam Overall: no tenderness 06/26/2015 None Full Exam - General 1994 Abdomen abdominal exam Overall: normal bowel sounds 06/26/2015 None Full Exam - General 1994 Lymphatic neck nodes Overall: anterior cervical chain benign 06/26/2015 None Full Exam - General 1994 Lymphatic neck nodes Overall: posterior cervical chain benign 06/26/2015 None Full Exam - General 1994 Musculoskeletal spine, ribs and pelvis Posture: scoliosis 06/26/2015 None Full Exam - General 1994 Neurologic deep tendon reflexes Overall: deep tendon reflexes intact 06/26/2015 None Full Exam - General 1994 Neurologic cranial nerves Overall: crainial nerves 2 - 12 grossly intact 06/26/2015 None Full Exam - General 1994 Psychiatric orientation/consciousness Overall: oriented to person, place and time 06/26/2015 None Full Exam - General 1994 Constitutional general appearance Nourishment: thin 06/26/2015 None Full Exam - General 1994 Constitutional general appearance Overall: well developed 04/10/2015 None Full Exam - General 1994 Constitutional general appearance Overall: in no acute distress 04/10/2015 None Full Exam - General 1994 Constitutional general appearance Overall: well nourished 04/10/2015 None Full Exam - General 1994 Psychiatric orientation/consciousness Overall: oriented to person, place and time 04/10/2015 None Full Exam - General 1994 Neurologic deep tendon reflexes Overall: deep tendon reflexes intact 04/10/2015 None Full Exam - General 1994 Neurologic cranial nerves Overall: crainial nerves 2 - 12 grossly intact 04/10/2015 None Full Exam - General 1994 Musculoskeletal spine, ribs and pelvis Posture: scoliosis 04/10/2015 None Full Exam - General 1994 Lymphatic neck nodes Overall: anterior cervical chain benign 04/10/2015 None Full Exam - General 1994 Lymphatic neck nodes Overall: posterior cervical chain benign 04/10/2015 None Full Exam - General 1994 Abdomen abdominal exam Overall: no tenderness 04/10/2015 None Full Exam - General 1994 Abdomen abdominal exam Overall: normal bowel sounds 04/10/2015 None Full Exam - General 1994 Cardiovascular auscultation of heart Overall: regular rate 04/10/2015 None Full Exam - General 1994 Cardiovascular auscultation of heart Overall: normal heart sounds 04/10/2015 None Full Exam - General 1994 Respiratory auscultation Overall: breath sounds clear bilaterally 04/10/2015 None Full Exam - General 1994 Respiratory respiratory effort/rhythm Overall: no retractions 04/10/2015 None Full Exam - General 1994 Respiratory respiratory effort/rhythm Overall: normal rate 04/10/2015 None Full Exam - General 1994 Ears/Nose/Throat otoscopic exam Overall: external auditory canals clear 04/10/2015 None Full Exam - General 1994 Ears/Nose/Throat otoscopic exam Overall: tympanic membranes clear 04/10/2015 None Full Exam - General 1994 Ears/Nose/Throat oral cavity/pharynx/larynx Overall: oral mucosa clear 04/10/2015 None Full Exam - General 1994 Eyes conjunctiva/eyelids Overall: conjunctiva clear 04/10/2015 None Procedures Procedure Codes Date TRIAMCINOLONE ACET I [place] NOS CPT-4: J3301 01/10/2019 PPPS, SUBSEQ VISIT CPT- 4: G0439 09/10/2018 TRIAMCINOLONE ACET I [place] NOS CPT-4: J3301 05/24/2018 PPPS, SUBSEQ VISIT CPT- 4: G0439 03/19/2017 PPPS, SUBSEQ VISIT CPT- 4: G0439 03/11/2016 THER/PROPH/DIAG INJ SC/IM CPT-4: 23177 12/27/2015 Vital Signs Date Vital 05/25/2019 Blood Pressure 1: 116/66 Code: 8480-6 BMI: 20.7 Code: 13353-9 Heart Rate 1: 70 bpm Height: 5' SpO2: 98% Weight: 106 lbs 05/19/2019 Blood Pressure 1: 128/68 Code: 8480-6 BMI: 20.3 Code: 84683-2 Heart Rate 1: 64 bpm Height: 5' SpO2: 98% Weight: 104 lbs 01/24/2019 Blood Pressure 1: 140/78 Code: 8480-6 BMI: 19.9 Code: 74444-7 Heart Rate 1: 84 bpm Height: 5' SpO2: 95% Weight: 102 lbs 01/10/2019 Blood Pressure 1: 126/62 Code: 8480-6 BMI: 19.9 Code: 14624-6 Heart Rate 1: 90 bpm Height: 5' SpO2: 94% Temperature: 36.6 (C ) / 97.8 (F) Weight: 102 lbs 11/25/2018 Blood Pressure 1: 128/74 Code: 8480-6 BMI: 19.7 Code: 10849-4 Heart Rate 1: 86 bpm Height: 5' SpO2: 97% Weight: 101 lbs 09/15/2018 Blood Pressure 1: 130/70 Code: 8480-6 BMI: 20.6 Code: 01860-9 Heart Rate 1: 75 bpm Height: 5' SpO2: 99% Weight: 105 lbs 8 oz 09/10/2018 Blood Pressure 1: 126/68 Code: 8480-6 BMI: 20.7 Code: 06887-1 Heart Rate 1: 63 bpm Height: 5' SpO2: 96% Waist Measure (cm): 66 cm Weight: 106 lbs 06/01/2018 Blood Pressure 1: 156/76 Code: 8480-6 BMI: 20.1 Code: 03393-5 Heart Rate 1: 68 bpm Height: 5' SpO2: 99% Weight: 103 lbs 05/24/2018 Blood Pressure 1: 120/60 Code: 8480-6 BMI: 20.5 Code: 50591-3 Heart Rate 1: 82 bpm Height: 5' SpO2: 98% Weight: 105 lbs 05/19/2018 Blood Pressure 1: 140/72 Code: 8480-6 BMI: 20.5 Code: 04806-2 Heart Rate 1: 96 bpm Height: 5' SpO2: 98% Weight: 105 lbs 01/12/2018 Blood Pressure 1: 146/78 Code: 8480-6 BMI: 21.1 Code: 97987-2 Heart Rate 1: 85 bpm Height: 5' SpO2: 95% Weight: 108 lbs 10/12/2017 Blood Pressure 1: 138/72 Code: 8480-6 BMI: 21.1 Code: 59289-9 Heart Rate 1: 96 bpm Height: 5' SpO2: 98% Weight: 108 lbs 08/06/2017 Blood Pressure 1: 130/78 Code: 8480-6 BMI: 20.5 Code: 35151-4 Heart Rate 1: 89 bpm Height: 5' SpO2: 98% Weight: 105 lbs 05/13/2017 Blood Pressure 1: 122/70 Code: 8480-6 BMI: 20.5 Code: 32188-4 Heart Rate 1: 80 bpm Height: 5' SpO2: 97% Weight: 105 lbs 03/19/2017 Blood Pressure 1: 138/80 Code: 8480-6 BMI: 20.5 Code: 44654-6 Heart Rate 1: 83 bpm Height: 5' SpO2: 97% Waist Measure (cm): 74 cm Weight: 105 lbs 03/18/2017 Blood Pressure 1: 138/80 Code: 8480-6 BMI: 20.5 Code: 34649-7 Heart Rate 1: 83 bpm Height: 5' SpO2: 97% Weight: 105 lbs 01/27/2017 Blood Pressure 1: 142/68 Code: 8480-6 BMI: 20.5 Code: 05337-2 Heart Rate 1: 69 bpm Height: 5' SpO2: 97% Weight: 105 lbs 12/29/2016 Blood Pressure 1: 154/82 Code: 8480-6 BMI: 20.1 Code: 33622-6 Heart Rate 1: 76 bpm Height: 5' SpO2: 94% Temperature: 37.4 (C ) / 99.4 (F) Weight: 103 lbs 11/19/2016 Blood Pressure 1: 134/74 Code: 8480-6 BMI: 19.7 Code: 66656-3 Heart Rate 1: 64 bpm Height: 5' Weight: 101 lbs 08/13/2016 Blood Pressure 1: 118/56 Code: 8480-6 BMI: 19.5 Code: 52673-9 Heart Rate 1: 64 bpm Height: 5' SpO2: 97% Weight: 100 lbs 07/03/2016 Blood Pressure 1: 120/68 Code: 8480-6 BMI: 19.1 Code: 48470-6 Heart Rate 1: 80 bpm Height: 5' SpO2: 98% Weight: 98 lbs 05/07/2016 Blood Pressure 1: 116/58 Code: 8480-6 BMI: 19.1 Code: 28963-6 Heart Rate 1: 79 bpm Height: 5' SpO2: 98% Weight: 98 lbs 04/08/2016 Blood Pressure 1: 118/58 Code: 8480-6 BMI: 19.0 Code: 18593-2 Heart Rate 1: 78 bpm Height: 5' SpO2: 98% Weight: 97 lbs 8 oz 03/11/2016 Blood Pressure 1: 102/60 Code: 8480-6 BMI: 19.7 Code: 51320-7 Heart Rate 1: 75 bpm Height: 5' SpO2: 94% Waist Measure (cm): 71 cm Weight: 101 lbs 12/27/2015 Blood Pressure 1: 128/72 Code: 8480-6 BMI: 20.2 Code: 72509-0 Heart Rate 1: 95 bpm Height: 5' SpO2: 98% Weight: 103 lbs 8 oz 09/24/2015 Blood Pressure 1: 136/70 Code: 8480-6 BMI: 19.1 Code: 79624-3 Heart Rate 1: 72 bpm Height: 5' SpO2: 97% Weight: 98 lbs 06/26/2015 Blood Pressure 1: 144/64 Code: 8480-6 BMI: 18.9 Code: 07855-2 Heart Rate 1: 77 bpm Height: 5' SpO2: 98% Weight: 97 lbs 04/10/2015 Blood Pressure 1: 132/88 Code: 8480-6 BMI: 18.9 Code: 48505-1 Heart Rate 1: 83 bpm Height: 5' SpO2: 97% Weight: 97 lbs Functional Status No Functional Status data History of Present Illness Symptom Name Status Resu lt Effective Date Notes Quality chronic 05/25/2019 None Quality primary hypert ension 05/25/2019 None Onset and Resolution o ngoing 05/25/2019 None Onset of Symptom durin g adulthood 05/25/2019 None Blood Pressure Values patient checking blood pressure at home - did not bring in readings 05/25/2019 -Checks seldom Alleviating Factors me dication 05/25/2019 None Quality chronic 05/25/2019 None Onset and Resolution o ngoing 05/25/2019 None Alleviating Factors me dication 05/25/2019 None Location-Major on the arms 05/19/2019 None Color red 05/19/2019 None Onset of Symptom 2 day s ago 05/19/2019 None Pertinent Findings Den ies pain 05/19/2019 None Pertinent Findings itc maribell 05/19/2019 None Quality acute 05/19/2019 None Onset and Resolution o ngoing 05/19/2019 None Frequency of Episodes unchanged 05/19/2019 None Severity mild 05/19/2019 None Quality chronic 01/24/2019 None Quality primary hypert ension 01/24/2019 None Onset and Resolution o ngoing 01/24/2019 None Onset of Symptom durin g adulthood 01/24/2019 None Blood Pressure Values patient checking blood pressure at home - did not bring in readings 01/24/2019 -Checks seldom Alleviating Factors me dication 01/24/2019 None Quality chronic 01/24/2019 None Onset and Resolution o ngoing 01/24/2019 None Alleviating Factors me dication 01/24/2019 None Quality aching 01/24/2019 None Quality constant 01/24/2019 None Frequency of Episodes daily 01/24/2019 None [facility] 01/24/2019 None Onset and Resolution o ngoing 01/24/2019 None Triggers no known asso ciated factors 01/24/2019 None Pertinent Findings Den ies nausea 01/24/2019 None Location diffusely 01/10/2019 None Quality aching 01/10/2019 None Quality constant 01/10/2019 None Quality pressure 01/10/2019 None Onset and Resolution s udden in onset 01/10/2019 None Onset of Symptom 12 da ys ago 01/10/2019 None Frequency of Episodes daily 01/10/2019 None Onset and Resolution s udden in onset 01/10/2019 None Quality constant 11/25/2018 None Quality loose 11/25/2018 None Quality mucous 11/25/2018 None Onset and Resolution s udden in onset 11/25/2018 None Onset of Symptom 10 da ys ago 11/25/2018 None Location diffusely 11/25/2018 None Quality cramping 11/25/2018 None Quality intermittent 11/25/2018 None Onset and Resolution s udden in onset 11/25/2018 None Onset of Symptom 10 da ys ago 11/25/2018 None Quality chronic 11/25/2018 None Quality primary hypert ension 11/25/2018 None Onset and Resolution o ngoing 11/25/2018 None Onset of Symptom durin g adulthood 11/25/2018 None Blood Pressure Values patient checking blood pressure at home - did not bring in readings 11/25/2018 -Checks seldom Alleviating Factors me dication 11/25/2018 None hypertension Quality tari delio hypertension 09/15/2018 None hypertension Onset and Resolution ongoing 09/15/2018 None hypertension Onset of Symptom during adulthood 09/15/2018 None hypertension Alleviating Factors medication 09/15/2018 None hypothyroid 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 09/15/2018 None hypothyroid Onset and Resolution ongoing 09/15/2018 None hypothyroid Alleviating Factors medication 09/15/2018 None hypertension Quality chr onic 09/15/2018 None hypertension Blood Pressure Values patient checking blood pressure at home - did not bring in readings 09/15/2018 -Checks seldom Annual Medicare Wellness Exam Alcohol Use does not drink any alcohol 09/10/2018 None Annual Medicare Wellness Exam Aspirin Use yes 09/10/2018 None Annual Medicare Wellness Exam Blood Glucose (self reported) desireable (below 100) 09/10/2018 None Annual Medicare Wellness Exam Blood Pressure (self reported) diagnosed with hypertension 09/10/20 18 None Annual Medicare Wellness Exam Choles terol (self reported) diagnosed with elevated cholesterol 09/10/2018 None Annual Medicare Wellness Exam Depres rafat (last 6 months) almost never 09/10/2018 None Annual Medicare Wellness Exam Depres rafat or Hopelessness almost never 09/10/2018 None Annual Medicare Wellness Exam Descri be Your Health good 09/10/2018 None Annual Medicare Wellness Exam Exerci se Habits exercises _ days per week 09/10/2018 None Annual Medicare Wellness Exam Handli ng Stress usually juana effectively 09/10/2018 None Annual Medicare Wellness Exam Hemagl obin A-1C (self reported) don't know 09/10/2018 No ne Annual Medicare Wellness Exam Intera ction with Friends yes 09/10/2018 None Annual Medicare Wellness Exam Intere sts & Pleasure almost all of the time 09/10/2018 None Annual Medicare Wellness Exam Life S atisfaction satisfied 09/10/2018 Non e Annual Medicare Wellness Exam Motor Vehicle Safety always fastens seat belt: y 09/10/20 18 None Annual Medicare Wellness Exam Smokin g and Tobacco Use non smoker 09/10/2018 No ne Annual Medicare Wellness Exam Social & Emotional Support always 09/10/2018 None Annual Medicare Wellness Exam Stress some of the time 09/10/2018 None Annual Medicare Wellness Exam Sun Exposure protects skin when outdoors: y 09/10/2018 None Annual Medicare Wellness Exam Hours of Sleep 8 09/10/2018 None Annual Medicare Wellness Exam Nutrition servings of fried food / high fat foods per day: 0 09/10/2018 None Annual Medicare Wellness Exam Nutrition servings of high fiber / whole grain per day: 1 09/10/2018 None Annual Medicare Wellness Exam Nutrition servings of vegetables / fruit per day: 3 09/10/2018 None rash Quality acute 06/01/2018 None rash Severity worsening 06/01/2018 None rash Pertinent Findings itching 06/01/2018 None rash Location-Major in a generalized area 06/01/2018 face, arms, chest, stomac h, waistline, groins rash Quality recurrent 06/01/2018 None rash Color erythematous 06/01/2018 None rash Onset and Resolution sudden in onset 06/01/2018 None rash Onset of Symptom 1. 5 weeks ago 06/01/2018 None rash Frequency of Episodes increasing 06/01/2018 None rash Location-Major in a generalized area 05/24/2018 None rash Color red 05/24/2018 None rash Onset and Resolution ongoing 05/24/2018 None rash Pertinent Findings Denies fever 05/24/2018 None rash Pertinent Findings itching 05/24/2018 None rash Quality acute 05/24/2018 None rash Onset of Symptom 4 days ago 05/24/2018 None rash Severity worsening 05/24/2018 None rash Prior Treatments un responsive to treatment 05/24/2018 None hypertension Quality tari kebede hypertension 05/19/2018 None hypertension Onset and Resolution ongoing 05/19/2018 None hypertension Onset of Symptom during adulthood 05/19/2018 None hypertension Alleviating Factors medication 05/19/2018 None hypothyroid Onset and Resolution ongoing 05/19/2018 None hypothyroid Alleviating Factors medication 05/19/2018 None hypothyroid 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 05/19/2018 None hypertension Quality tari kebede hypertension 01/12/2018 None hypertension Onset and Resolution ongoing 01/12/2018 None hypertension Onset of Symptom during adulthood 01/12/2018 None hypertension Blood Pressure Values pt checking blood pressure - see scanned document 01/12/2018 None hypertension Alleviating Factors medication 01/12/2018 None hypertension Pertinent Findings dizziness 01/12/2018 -mild vertigo since she s tarted tapering off the keppra hypertension Pertinent Findings Denies dyspnea 01/12/2018 None hypertension Pertinent Findings Denies edema 01/12/2018 None hypothyroid Onset and Resolution ongoing 01/12/2018 None hypothyroid Alleviating Factors medication 01/12/2018 None hair loss Location on th e scalp 01/12/2018 None hair loss Quality acute 01/12/2018 None hair loss Onset and Resolution ongoing 01/12/2018 None hair loss Onset of Symptom ~1 months ago 01/12/2018 None hair loss Frequency of Episodes decreasing 01/12/2018 None hair loss Triggers no kn own triggers 01/12/2018 None headache Location in the right parietal area 01/12/2018 None headache Quality acute 01/12/2018 None headache Quality intermi ttent 01/12/2018 None headache Quality sharp 01/12/2018 None headache Quality stabbing 01/12/2018 None headache Onset and Resolution sudden in onset 01/12/2018 None headache Onset of Symptom 3 days ago 01/12/2018 None headache Frequency of Episodes daily 01/12/2018 None headache Length of Episodes seconds 01/12/2018 None headache Triggers no kno wn associated factors 01/12/2018 None headache Quality intermi ttent 10/12/2017 None headache Quality acute 10/12/2017 None headache Quality sharp 10/12/2017 None headache Quality stabbing 10/12/2017 None headache Onset and Resolution sudden in onset 10/12/2017 None headache Onset of Symptom 3 days ago 10/12/2017 None headache Frequency of Episodes daily 10/12/2017 None headache Length of Episodes seconds 10/12/2017 None headache Triggers no kno wn associated factors 10/12/2017 None headache Location in the right parietal area 10/12/2017 None hypertension Quality tari delio hypertension 08/06/2017 None hypertension Onset and Resolution ongoing 08/06/2017 None hypertension Onset of Symptom during adulthood 08/06/2017 None hypertension Blood Pressure Values pt checking blood pressure - see scanned document 08/06/2017 None hypertension Alleviating Factors medication 08/06/2017 None hypertension Pertinent Findings Denies dyspnea 08/06/2017 None hypertension Pertinent Findings Denies edema 08/06/2017 None hypothyroid Onset and Resolution ongoing 08/06/2017 None hypothyroid Alleviating Factors medication 08/06/2017 None hypertension Pertinent Findings dizziness 08/06/2017 -mild vertigo since she s tarted tapering off the keppra hair loss Location on th e scalp 08/06/2017 None hair loss Quality acute 08/06/2017 None hair loss Onset and Resolution ongoing 08/06/2017 None hair loss Onset of Symptom ~1 months ago 08/06/2017 None hair loss Frequency of Episodes decreasing 08/06/2017 None hair loss Triggers no kn own triggers 08/06/2017 None hypertension Quality tari delio hypertension 05/13/2017 None hypertension Onset and Resolution ongoing 05/13/2017 None hypertension Onset of Symptom during adulthood 05/13/2017 None hypertension Blood Pressure Values pt checking blood pressure - see scanned document 05/13/2017 None hypertension Alleviating Factors medication 05/13/2017 None hypertension Pertinent Findings Denies dizziness 05/13/2017 None hypertension Pertinent Findings Denies dyspnea 05/13/2017 None hypertension Pertinent Findings Denies edema 05/13/2017 None hypothyroid Onset and Resolution ongoing 05/13/2017 None hypothyroid Alleviating Factors medication 05/13/2017 None Annual Medicare Wellness Exam Alcohol Use does not drink any alcohol 03/19/2017 None Annual Medicare Wellness Exam Aspirin Use yes 03/19/2017 None Annual Medicare Wellness Exam Blood Glucose (self reported) don't know 03/19/2017 No ne Annual Medicare Wellness Exam Blood Pressure (self reported) low / normal (120/80) 03/19/2017 None Annual Medicare Wellness Exam Choles terol (self reported) desireable (below 200) 03/19/2017 None Annual Medicare Wellness Exam Depres rafat (last 6 months) some of the time 03/19/2017 None Annual Medicare Wellness Exam Depres rafat or Hopelessness almost never 03/19/2017 None Annual Medicare Wellness Exam Descri be Your Health good 03/19/2017 None Annual Medicare Wellness Exam Exerci se Habits does not exercise 03/19/2017 None Annual Medicare Wellness Exam Handli ng Stress usually juana effectively 03/19/2017 None Annual Medicare Wellness Exam Hemagl obin A-1C (self reported) don't know 03/19/2017 No ne Annual Medicare Wellness Exam Hours of Sleep 10 03/19/2017 None Annual Medicare Wellness Exam Intera ction with Friends yes 03/19/2017 None Annual Medicare Wellness Exam Intere sts & Pleasure most of the time 03/19/2017 None Annual Medicare Wellness Exam Life S atisfaction very satisfied 03/19/2017 None Annual Medicare Wellness Exam Motor Vehicle Safety always fastens seat belt: y 03/19/20 17 None Annual Medicare Wellness Exam Motor Vehicle Safety drives after drinking: n 03/19/2017 None Annual Medicare Wellness Exam Motor Vehicle Safety rides with someone who has been drinking: n 03/19/2017 None Annual Medicare Wellness Exam Nutrition servings of fried food / high fat foods per day: 0 03/19/2017 None Annual Medicare Wellness Exam Nutrition servings of high fiber / whole grain per day: 1 03/19/2017 None Annual Medicare Wellness Exam Nutrition servings of vegetables / fruit per day: 3 03/19/2017 None Annual Medicare Wellness Exam Smokin g and Tobacco Use non smoker 03/19/2017 No ne Annual Medicare Wellness Exam Social & Emotional Support always 03/19/2017 None Annual Medicare Wellness Exam Stress some of the time 03/19/2017 None Annual Medicare Wellness Exam Sun Exposure protects skin when outdoors: y 03/19/2017 None hypertension Onset and Resolution ongoing 03/18/2017 None hypertension Onset of Symptom during adulthood 03/18/2017 None hypertension Alleviating Factors medication 03/18/2017 None hypertension Pertinent Findings Denies dizziness 03/18/2017 None hypertension Pertinent Findings Denies dyspnea 03/18/2017 None hypertension Pertinent Findings Denies edema 03/18/2017 None hypothyroid Onset and Resolution ongoing 03/18/2017 None hypothyroid Alleviating Factors medication 03/18/2017 None back pain Location lumba r-sacral spine 03/18/2017 None back pain Quality interm ittent 03/18/2017 None back pain Onset and Resolution ongoing 03/18/2017 None back pain Limitation on Activities moderately limits activities 03/18/2017 None back pain Alleviating Factors rest 03/18/2017 None back pain Exacerbating Factors activity 03/18/2017 None hypertension Quality tari delio hypertension 03/18/2017 None hypertension Blood Pressure Values pt checking blood pressure - see scanned document 03/18/2017 None fatigue Onset and Resolution gradual in onset 01/27/2017 None fatigue Onset of Symptom 8 weeks ago 01/27/2017 None fatigue Limitation on Activities is incapacitating 01/27/2017 None fatigue Timing of Episodes no specific time 01/27/2017 None fatigue Pertinent Findings dizziness 01/27/2017 None fatigue Pertinent Findings weakness 01/27/2017 None back pain Location lumba r-sacral spine 01/27/2017 None back pain Quality aching 01/27/2017 None back pain Quality sharp 01/27/2017 None back pain Quality stabbi ng 01/27/2017 None back pain Onset and Resolution sudden in onset 01/27/2017 None back pain Onset of Symptom 1 weeks ago 01/27/2017 None back pain Frequency of Episodes daily 01/27/2017 None hypertension Onset and Resolution ongoing 01/27/2017 None hypertension Onset of Symptom during adulthood 01/27/2017 None hypertension Blood Pressure Values not checking blood pressure at home 01/27/2017 None hypertension Alleviating Factors medication 01/27/2017 None hypertension Pertinent Findings Denies dyspnea 01/27/2017 None hypertension Pertinent Findings Denies edema 01/27/2017 None Hospital Follow Up _ Oth er: fall 12/29/2016 None Hospital Follow Up _ pain 12/29/2016 None Hospital Follow Up Quality acute 12/29/2016 None Hospital Follow Up Location coccyx 12/29/2016 None Hospital Follow Up Onset of Symptom 1 weeks ago 12/29/2016 None Hospital Follow Up Exacerbating Factors activity 12/29/2016 None Hospital Follow Up Pertinent Findings pain 12/29/2016 coccyx Hospital Follow Up Mechanism of injury direct trauma 12/29/2016 None pain Location-Major on t he lower body 12/29/2016 None pain Location-Trunk on t he perineum 12/29/2016 coccyx pain Pertinent Findings Denies dizziness 12/29/2016 None pain Pertinent Findings Denies muscle pain 12/29/2016 None pain Pertinent Findings pain 12/29/2016 None sinus congestion Onset and Resolution sudden in onset 12/29/2016 None sinus congestion Onset of Symptom 7 days ago 12/29/2016 None sinus congestion Severity mild 12/29/2016 None sinus congestion Pertinent Findings cough 12/29/2016 None sinus congestion Pertinent Findings decreased energy level 12/29/2016 None sinus congestion Pertinent Findings hoarseness 12/29/2016 None sinus congestion Pertinent Findings Denies swollen glands 12/29/2016 None sinus congestion Pertinent Findings nasal crusting 12/29/2016 None sinus congestion Pertinent Findings Denies fever 12/29/2016 None sinus congestion Quality acute 12/29/2016 None sinus congestion Significant Medications decongestants 12/29/2016 None sinus congestion Significant Medications nasal spray 12/29/2016 None fatigue Limitation on Activities moderately limits activities 12/29/2016 None fatigue Pertinent Findings Denies confusion 12/29/2016 None fatigue Pertinent Findings Denies dizziness 12/29/2016 None fatigue Pertinent Findings Denies failure to thrive 12/29/2016 None fatigue Pertinent Findings lightheadedness 12/29/2016 None fatigue Pertinent Findings nasal congestion 12/29/2016 None fatigue Pertinent Findings weakness 12/29/2016 None hypertension Onset and Resolution ongoing 11/19/2016 None hypertension Onset of Symptom during adulthood 11/19/2016 None hypertension Blood Pressure Values not checking blood pressure at home 11/19/2016 None hypertension Alleviating Factors medication 11/19/2016 None hypertension Pertinent Findings Denies dizziness 11/19/2016 None hypertension Pertinent Findings Denies dyspnea 11/19/2016 None hypertension Pertinent Findings Denies edema 11/19/2016 None hypothyroid Onset and Resolution ongoing 11/19/2016 None hypothyroid Alleviating Factors medication 11/19/2016 None diarrhea Quality chronic 11/19/2016 None diarrhea Quality loose 11/19/2016 None diarrhea Exacerbating Factors medication 11/19/2016 None back pain Location lumba r-sacral spine 11/19/2016 None back pain Quality consta nt 11/19/2016 None back pain Quality dull 11/19/2016 None diarrhea Quality intermi ttent 11/19/2016 rarely having loose stool s, no stomach cramps hypertension Onset and Resolution ongoing 08/13/2016 None hypertension Onset of Symptom during adulthood 08/13/2016 None hypertension Blood Pressure Values not checking blood pressure at home 08/13/2016 None hypertension Alleviating Factors medication 08/13/2016 None hypertension Pertinent Findings Denies dizziness 08/13/2016 None hypertension Pertinent Findings Denies dyspnea 08/13/2016 None hypertension Pertinent Findings Denies edema 08/13/2016 None hypothyroid Onset and Resolution ongoing 08/13/2016 None hypothyroid Alleviating Factors medication 08/13/2016 None diarrhea Quality improvi ng 08/13/2016 None diarrhea Quality loose 08/13/2016 None diarrhea Exacerbating Factors medication 08/13/2016 None back pain Location lumba r-sacral spine 08/13/2016 None back pain Quality consta nt 08/13/2016 None back pain Quality dull 08/13/2016 None diarrhea Quality chronic 08/13/2016 None hypertension Onset and Resolution ongoing 07/03/2016 None hypertension Onset of Symptom during adulthood 07/03/2016 None hypertension Blood Pressure Values not checking blood pressure at home 07/03/2016 None hypertension Alleviating Factors medication 07/03/2016 None hypertension Pertinent Findings Denies dizziness 07/03/2016 None hypertension Pertinent Findings Denies dyspnea 07/03/2016 None hypertension Pertinent Findings Denies edema 07/03/2016 None hypothyroid Onset and Resolution ongoing 07/03/2016 None hypothyroid Alleviating Factors medication 07/03/2016 None diarrhea Quality acute 07/03/2016 None diarrhea Quality improvi ng 07/03/2016 None diarrhea Quality loose 07/03/2016 None diarrhea Onset and Resolution sudden in onset 07/03/2016 None diarrhea Onset of Symptom 6 days ago 07/03/2016 None diarrhea Exacerbating Factors medication 07/03/2016 None back pain Location lumba r-sacral spine 07/03/2016 None back pain Quality dull 07/03/2016 None back pain Quality consta nt 07/03/2016 None hypertension Onset and Resolution ongoing 05/07/2016 None hypertension Onset of Symptom during adulthood 05/07/2016 None hypertension Blood Pressure Values not checking blood pressure at home 05/07/2016 None hypertension Alleviating Factors medication 05/07/2016 None hypertension Pertinent Findings Denies dizziness 05/07/2016 None hypertension Pertinent Findings Denies dyspnea 05/07/2016 None hypertension Pertinent Findings Denies edema 05/07/2016 None hypothyroid Onset and Resolution ongoing 05/07/2016 None hypothyroid Alleviating Factors medication 05/07/2016 None diarrhea Quality acute 05/07/2016 None diarrhea Quality loose 05/07/2016 None diarrhea Onset and Resolution sudden in onset 05/07/2016 None diarrhea Onset of Symptom 6 days ago 05/07/2016 None diarrhea Exacerbating Factors medication 05/07/2016 None diarrhea Quality improvi ng 05/07/2016 None hypertension Onset and Resolution ongoing 04/08/2016 None hypertension Onset of Symptom during adulthood 04/08/2016 None hypertension Blood Pressure Values not checking blood pressure at home 04/08/2016 None hypertension Pertinent Findings Denies dizziness 04/08/2016 None hypertension Pertinent Findings Denies dyspnea 04/08/2016 None hypertension Pertinent Findings Denies edema 04/08/2016 None hypothyroid Onset and Resolution ongoing 04/08/2016 None hypothyroid Alleviating Factors medication 04/08/2016 None hypertension Alleviating Factors medication 04/08/2016 None diarrhea Quality acute 04/08/2016 None diarrhea Quality loose 04/08/2016 None diarrhea Onset and Resolution sudden in onset 04/08/2016 None diarrhea Onset of Symptom 6 days ago 04/08/2016 None diarrhea Exacerbating Factors medication 04/08/2016 None gas and bloating Quality acute 04/08/2016 None gas and bloating Onset and Resolution sudden in onset 04/08/2016 None gas and bloating Exacerbating Factors medication 04/08/2016 None Annual Medicare Wellness Exam Alcohol Use does not drink any alcohol 03/11/2016 None Annual Medicare Wellness Exam Aspirin Use no 03/11/2016 None Annual Medicare Wellness Exam Blood Glucose (self reported) desireable (below 100) 03/11/2016 None Annual Medicare Wellness Exam Blood Pressure (self reported) low / normal (120/80) 03/11/2016 None Annual Medicare Wellness Exam Choles terol (self reported) desireable (below 200) 03/11/2016 None Annual Medicare Wellness Exam Depres rafat (last 6 months) daily 03/11/2016 None Annual Medicare Wellness Exam Depres rafat or Hopelessness daily 03/11/2016 None Annual Medicare Wellness Exam Descri be Your Health fair 03/11/2016 None Annual Medicare Wellness Exam Exerci se Habits exercises 5 days per week 03/11/2016 None Annual Medicare Wellness Exam Exerci se Habits exercises 30 minutes per day 03/11/2016 None Annual Medicare Wellness Exam Handli ng Stress usually juana effectively 03/11/2016 None Annual Medicare Wellness Exam Hemagl obin A-1C (self reported) don't know 03/11/2016 No ne Annual Medicare Wellness Exam Hours of Sleep 9 03/11/2016 None Annual Medicare Wellness Exam Intera ction with Friends yes 03/11/2016 None Annual Medicare Wellness Exam Intere sts & Pleasure most of the time 03/11/2016 None Annual Medicare Wellness Exam Life S atisfaction satisfied 03/11/2016 Non e Annual Medicare Wellness Exam Motor Vehicle Safety always fastens seat belt: y 03/11/20 16 None Annual Medicare Wellness Exam Motor Vehicle Safety drives after drinking: n 03/11/2016 None Annual Medicare Wellness Exam Motor Vehicle Safety rides with someone who has been drinking: n 03/11/2016 None Annual Medicare Wellness Exam Nutrition servings of fried food / high fat foods per day: 0 03/11/2016 None Annual Medicare Wellness Exam Nutrition servings of high fiber / whole grain per day: 1 03/11/2016 None Annual Medicare Wellness Exam Nutrition servings of vegetables / fruit per day: 2 03/11/2016 None Annual Medicare Wellness Exam Social & Emotional Support always 03/11/2016 None Annual Medicare Wellness Exam Stress almost all of the time 03/11/2016 None Annual Medicare Wellness Exam Sun Exposure protects skin when outdoors: n 03/11/2016 None Annual Medicare Wellness Exam Smokin g and Tobacco Use non smoker 03/11/2016 No ne hypertension Onset and Resolution ongoing 12/27/2015 None hypertension Onset of Symptom during adulthood 12/27/2015 None hypertension Blood Pressure Values not checking blood pressure at home 12/27/2015 None hypertension Pertinent Findings dyspnea 12/27/2015 None hypertension Pertinent Findings Denies dizziness 12/27/2015 None hypertension Pertinent Findings Denies edema 12/27/2015 None hypothyroid Onset and Resolution ongoing 12/27/2015 None hypothyroid Alleviating Factors medication 12/27/2015 None back pain Location diffu sely 09/24/2015 None back pain Quality aching 09/24/2015 None back pain Quality burning 09/24/2015 None back pain Quality consta nt 09/24/2015 None back pain Quality throbb ing 09/24/2015 None back pain Quality discom fort 09/24/2015 None back pain Onset and Resolution ongoing 09/24/2015 None back pain Onset of Symptom _ years ago 09/24/2015 None back pain Limitation on Activities moderately limits activities 09/24/2015 None back pain Frequency of Episodes daily 09/24/2015 None back pain Triggers activ ity 09/24/2015 None back pain Exacerbating Factors exertion 09/24/2015 None back pain Radiating down both arms 09/24/2015 None back pain Pertinent Findings Denies extremity numbness 09/24/2015 None back pain Pertinent Findings extremity weakness 09/24/2015 None back pain Pertinent Findings limited range of neck motion 09/24/2015 None back pain Quality aching 06/26/2015 None back pain Quality burning 06/26/2015 None back pain Quality consta nt 06/26/2015 None back pain Quality throbb ing 06/26/2015 None back pain Quality discom fort 06/26/2015 None back pain Onset and Resolution ongoing 06/26/2015 None back pain Location diffu sely 06/26/2015 None back pain Onset of Symptom _ years ago 06/26/2015 None back pain Frequency of Episodes daily 06/26/2015 None back pain Limitation on Activities moderately limits activities 06/26/2015 None back pain Triggers activ ity 06/26/2015 None back pain Exacerbating Factors exertion 06/26/2015 None back pain Mechanism of injury unknown 06/26/2015 None back pain Radiating down both arms 06/26/2015 None back pain Pertinent Findings extremity weakness 06/26/2015 None back pain Pertinent Findings Denies extremity numbness 06/26/2015 None back pain Pertinent Findings limited range of neck motion 06/26/2015 None back pain Quality interm ittent 04/10/2015 None back pain Onset and Resolution ongoing 04/10/2015 None back pain Location lumba r spine 04/10/2015 None back pain Onset of Symptom 3 months ago 04/10/2015 worse in the am back pain Frequency of Episodes daily 04/10/2015 None back pain Pertinent Findings Denies extremity numbness 04/10/2015 None back pain Pertinent Findings Denies extremity weakness 04/10/2015 None back pain Pertinent Findings morning stiffness 04/10/2015 None back pain Pertinent Findings Denies weakness 04/10/2015 None back pain Triggers no kn own associated factors 04/10/2015 None back pain Significant Medical Conditions spinal stenosis 04/10/2015 None back pain Alleviating Factors medication 04/10/2015 None back pain Exacerbating Factors activity 04/10/2015 None back pain Initial treatment medication 04/10/2015 None back pain Initial treatment stretching 04/10/2015 None back pain Mechanism of injury unknown 04/10/2015 None back pain Radiating down both arms 04/10/2015 None back pain Severity moder ate 04/10/2015 None back pain Sports Participation not significant 04/10/2015 None blood pressure followup Quality chronic 04/10/2015 None blood pressure followup Onset and Re solution ongoing 04/10/2015 None blood pressure followup Onset of Symptom during adulthood 04/10/2015 None blood pressure followup Severity mild 04/10/2015 None blood pressure followup Frequency of Episodes unchanged 04/10/2015 Non e blood pressure followup Triggers stress 04/10/2015 None blood pressure followup Pertinent Findings Denies dizziness 04/10/2015 None blood pressure followup Pertinent Findings Denies dyspnea 04/10/2015 None blood pressure followup Pertinent Findings Denies edema 04/10/2015 None blood pressure followup Blood Pressu re Values not checking blood pressure at home 04/10/2015 None blood pressure followup Timing of Episodes upon awakening 04/10/2015 None blood pressure followup Timing of Episodes in the morning 04/10/2015 None blood pressure followup Timing of Episodes in the afternoon 04/10/2015 None blood pressure followup Timing of Episodes in the evening 04/10/2015 None blood pressure followup Timing of Episodes at night 04/10/2015 None blood pressure followup Significant Family History heart disease 04/10/2015 None blood pressure followup Significant Medical Conditions cardiac disease 04/10/2015 None blood pressure followup Alleviating Factor s diet changes 04/10/2015 None blood pressure followup Exacerbating Factors stress 04/10/2015 None Advance Directives No Advance Directive data Encounters Encounter Performer Loca tion Codes Date ([id number]) [id number] EST. P ATIENT, LEVEL IV Diagnosis: Essential (primary) hypertension[ICD10: I10] Diagnosis: Atrophy of thyroid (acquired)[ICD10: E03.4] Kailee Moreira MD, [facility] CPT-4: [id number] 05/25/2019 04432 EST. PATIENT, LEVEL II Diagnosis: Allergic contact dermatitis due to plants, except food[ICD10: L23.7] Marixa Moreira MD, [facility] CPT-4: 89969 05/19/2019 ([id number]) [id number] EST. P ATIENT, LEVEL IV Diagnosis: Essential (primary) hypertension[ICD10: I10] Diagnosis: Headache[ICD10: R51] Diagnosis: Atrophy of thyroid (acquired)[ICD10: E03.4] Diagnosis: Other forms of dyspnea[ICD10: R06.09] Kailee Moreira MD, [facility] CPT-4: 46058 01/24/2019 ([id number]) [id number] EST. P ATIENT, LEVEL III Diagnosis: Headache[ICD10: R51] Diagnosis: Nasal congestion[ICD10: R09.81] Marixa Moreira MD, [facility] CPT- 4: 28917 01/10/2019 ([id number]) [id number] EST. 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 P ATIENT, LEVEL IV Diagnosis: Essential (primary) hypertension[ICD10: I10] Diagnosis: Atrophy of thyroid (acquired)[ICD10: E03.4] Diagnosis: Low back pain[ICD10: M54.5] Diagnosis: Other specified noninflammatory disorders of vagina[ICD10: N89.8] Kailee Moreira MD, [facility] CPT-4: 37819 09/15/2018 ([id number]) 28061 EST. P ATIENT, LEVEL III Diagnosis: Dizziness and giddiness[ICD10: R42] Diagnosis: Allergic contact dermatitis due to plants, except food[ICD10: L23.7] Marixa Moreira MD, [facility] CPT-4: 92308 06/01/2018 ([id number]) 06206 EST. P ATIENT, LEVEL III Diagnosis: Allergic contact dermatitis due to plants, except food[ICD10: L23.7] Marixa Moreira MD, [facility] CPT-4: 40358 05/24/2018 ([id number]) 21679 EST. P ATIENT, LEVEL IV Diagnosis: Essential (primary) hypertension[ICD10: I10] Diagnosis: Atrophy of thyroid (acquired)[ICD10: E03.4] Diagnosis: Obstructive sleep apnea (adult) (pediatric)[ICD10: G47.33] Kailee Moreira MD, [facility] CPT-4: 01185 05/19/2018 ([id number]) [id number] EST. P ATIENT, LEVEL IV Diagnosis: Essential (primary) hypertension[ICD10: I10] Diagnosis: Atrophy of thyroid (acquired)[ICD10: E03.4] Diagnosis: Low back pain[ICD10: M54.5] Kailee Moreira MD, [facility] CPT-4: 69262 01/12/2018 ([id number]) 10727 EST. P ATIENT, LEVEL III Diagnosis: Headache[ICD10: R51] Kailee Moreira MD, [facility] CPT-4: 85538 10/12/2017 ([id number]) [id number] EST. P ATIENT, LEVEL IV Diagnosis: Atrophy of thyroid (acquired)[ICD10: E03.4] Diagnosis: Essential (primary) hypertension[ICD10: I10] Diagnosis: Obstructive sleep apnea (adult) (pediatric)[ICD10: G47.33] Kailee Moreira MD, [facility] CPT-4: 28043 08/06/2017 ([id number]) [id number] EST. 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 P ATIENT, LEVEL IV Diagnosis: Atrophy of thyroid (acquired)[ICD10: E03.4] Diagnosis: Essential (primary) hypertension[ICD10: I10] Diagnosis: Encounter for screening for other musculoskeletal disorder[ICD10: Z13.828] Diagnosis: Low back pain[ICD10: M54.5] Diagnosis: Transient alteration of awareness[ICD10: R40.4] Kailee Moreira MD, [facility] CPT-4: 17695 03/18/2017 ([id number]) 78011 EST. P ATIENT, LEVEL IV Diagnosis: Atrophy of thyroid (acquired)[ICD10: E03.4] Diagnosis: Essential (primary) hypertension[ICD10: I10] Diagnosis: Low back pain[ICD10: M54.5] Kailee Moreira MD, [facility] CPT-4: 53498 01/27/2017 ([id number]) 80694 EST. P ATIENT, LEVEL III Diagnosis: Acute recurrent maxillary sinusitis[ICD10: J01.01] Marixa Moreira MD, [facility] CPT-4: 06436 12/29/2016 ([id number]) 62640 EST. P ATIENT, LEVEL IV Diagnosis: Atrophy of thyroid (acquired)[ICD10: E03.4] Diagnosis: Essential (primary) hypertension[ICD10: I10] Kailee Moreira MD, [facility] CPT-4: 68684 11/19/2016 ([id number]) 82235 EST. P ATIENT, LEVEL IV Diagnosis: Atrophy of thyroid (acquired)[ICD10: E03.4] Diagnosis: Enterocolitis due to Clostridium difficile[ICD10: A04.7] Diagnosis: Essential (primary) hypertension[ICD10: I10] Kailee Moreira MD, [facility] CPT-4: 64465 08/13/2016 ([id number]) 81544 EST. P ATIENT, LEVEL IV Diagnosis: Essential (primary) hypertension[ICD10: I10] Diagnosis: Enterocolitis due to Clostridium difficile[ICD10: A04.7] Diagnosis: Hypothyroidism, unspecified[ICD10: E03.9] Diagnosis: Low back pain[ICD10: M54.5] Kailee Moreira MD, [facility] CPT-4: 48265 07/03/2016 ([id number]) 65024 EST. P ATIENT, LEVEL IV Diagnosis: Enterocolitis due to Clostridium difficile[ICD10: A04.7] Diagnosis: Lyme disease, unspecified[ICD10: A69.20] Kailee Moreira MD, C CPT-4: 69268 05/07/2016 ([id number]) 54327 EST. P ATIENT, LEVEL IV Diagnosis: Generalized abdominal rigidity[ICD10: R19.37] Diagnosis: Diarrhea, unspecified[ICD10: R19.7] Diagnosis: Lyme disease, unspecified[ICD10: A69.20] Kailee Moreira MD, C CPT-4: 68173 04/08/2016 ([id number]) 34749 EST. P ATIENT, LEVEL IV Diagnosis: Hypothyroidism, unspecified[ICD10: E03.9] Diagnosis: Lyme disease, unspecified[ICD10: A69.20] Diagnosis: Tachycardia, unspecified[ICD10: R00.0] Kailee Moreira MD, [facility] CPT-4: 52865 12/27/2015 ([id number]) 06665 EST. 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 Pt has been encouraged to exercise daily. The pt has been advised to call the office if there are any acute concerns about change in blood pressure readings at home. Hypothyroidism - pt with chronic hypothyroidism, continue with current medication, will monitor pt to signs or symptoms of lack of adequate supplementation. Pt is to continue with current dose of medication unless directed otherwise. Check labs at regular intervals q 3 months or q 6 months based on previous levels of control. 05/25/2019 Appointment: Kailee Moreira WPtel: [facility]5 [phone] (30 min) Complex 05/25/2019 Patient Education: Patient Medication Summary Completed 05/25/2019 Patient Education: Hypertension Completed 05/25/2019 Visit Plan: Poison Magalys - pt is to u se topical treatments as directed. Pt is cleanse clothing in hot water with soap, and call if symptoms do not improve or if they worsen. 05/19/2019 Appointment: Marixa Lakhani WPtel: [phone] (10 min) Simple 05/19/2019 Patient Education: Patient Medication Summary Completed 05/19/2019 Appointment: Kailee Moreira WPtel: [facility] (30 min) Complex 05/02/2019 Visit Plan: Hypertension - well con trolled - continue with current medications, continue with no added salt diet. Pt has been encouraged to exercise daily. The pt has been advised to call the office if there are any acute concerns about change in blood pressure readings at home. Hypothyroidism - pt with chronic hypothyroidism, continue with current medication, will monitor pt to signs or symptoms of lack of adequate supplementation. Pt is to continue with current dose of medication unless directed otherwise. Check labs at regular intervals q 3 months or q 6 months based on previous levels of control. Breast p ain - may be due to estrogen - I have recommended pt to decrease estrogen down to 0.25gram twice weekly. Headache - recommended pt to stop some of her supplementation as this may be causing her to have the headaches. She is to let me know if the symptoms do not improve after the supplement is changed. 01/24/2019 Appointment: Kailee Moreira WPtel: [phone] [facility] (30 min) Complex 01/24/2019 Patient Education: Patient Medication Summary Completed 01/24/2019 Patient Education: Hypertension Completed 01/24/2019 Appointment: Kailee Moreira WPtel: [phone] [facility] [place] (15 min) Moderate 01/19/2019 Appointment: Nurse Visit 01/14/2019 Visit Plan: Headache -nasal congest ion-refill fioricet for prn use-kenalog injection today in the office -call if symptoms do not resolve or if any worse-patient verbalized understanding of plan. 01/10/2019 Appointment: Marixa Lakhani WPtel: [phone] [phone] [place] (15 min) Moderate 01/10/2019 Patient Education: Patient Medication Summary Completed 01/10/2019 Visit Plan: Diarrhea - discussed wi th pt - she has an appt with Dr. Azar - she is going to discuss fecal transplantation due to her recurrent C-Diff infection. Hypertension - well controlled - continue with current m edications, continue with no added salt diet. Pt has been encouraged to exercise daily. The pt has been advised to call the office if there are any acute concerns about change in blood pressure readings at home. 11/25/2018 Appointment: Kailee Moreira WPtel: [phone] [facility] [place] (15 min) Moderate 11/25/2018 Patient Education: Patient Medication Summary Completed 11/25/2018 Patient Education: Hypertension Completed 11/25/2018 Visit Plan: Hypertension - well con trolled - continue with current medications, continue with no added salt diet. Pt has been encouraged to exercise daily. The pt has been advised to call the office if there are any acute concerns about change in blood pressure readings at home. Hypothyroidism - pt with chronic hypothyroidism, continue with current medication, will monitor pt to signs or symptoms of lack of adequate supplementation. Pt is to continue with current dose of medication unless directed otherwise. Check labs at regular intervals q 3 months or q 6 months based on previous levels of control. Vaginal dryness - rx for estradiol twice weekly. Low back pain - pt to see the chiropractor. 09/15/2018 Appointment: Kailee Moreira [facility]Ptel: [phone] 30 min appointments only in this slot 09/15/2018 Patient Education: Patient Medication Summary Completed 09/15/2018 Patient Education: Hypertension Completed 09/15/2018 Patient Education: Back Pain Completed 09/15/2018 Visit Plan: Medicare Exam - today w e discussed the patients past history, immunizations, preventative exams/evaluations - colonoscopy, fecal occult blood testing, routine labs for renal function, glucose, cholesterol, osteoporosis evaluations, cardiovascular testing and cancer screenings. We have also discussed mental health and the signs/symptoms of depression. The patient was advised of home safety evaluations and the need to make sure that as the aging process continues, we need to be aware of different ways to make the home a safer place to reside. The patient has also been counseled that exercise is necessary - and of utmost importance as we age to help decrease fall risk and to maintain independece in the home. Today we discussed the need for the patient to create paperwork for Advanced directives as well as for the patient to provide this office with a copy of her DOPA paperwork for health care surrogate. 09/10/2018 Appointment: Kiersten Armando [facility]Ptel: [phone] [facility] - Annual Wellness Visit 09/10/2018 Patient Education: Patient Medication Summary Completed 09/10/2018 Appointment: Injection 06/14/2018 Visit Plan: Contact dermatitis-disc ussed with Dr Moreira -rx for dexamethasone sent to patient's pharmacy and instructed on use-will also send rx for topical betamethsone -instructed patient to call if symptoms do not resolve or if any worse Scxzozmnm-RLF-hdgzzjyx fluids-monitor blood pressure- call if dizziness does not resolve or if any worse-patient and verbalized understanding 06/01/2018 Appointment: Marixa Lakhani WPtel: [phone] [phone] (15 min) Moderate 06/01/2018 Patient Education: Patient Medication Summary Completed 06/01/2018 Visit Plan: Contact dermatitis due to poison magalys/oak-kenalog injection today- pt is to use topical treatments as directed. Pt is cleanse clothing in hot water with soap, and call if symptoms do not improve or if they worsen. 05/24/2018 Appointment: Marixa Lakhani WPtel: [phone] [phone] (15 min) Moderate 05/24/2018 Patient Education: Patient Medication Summary Completed 05/24/2018 Visit Plan: Hypertension - well con trolled - continue with current medications, continue with no added salt diet. Pt has been encouraged to exercise daily. The pt has been advised to call the office if there are any acute concerns about change in blood pressure readings at home. Hypothyroidism - pt with chronic hypothyroidism, continue with current medication, will monitor pt to signs or symptoms of lack of adequate supplementation. Pt is to continue with current dose of medication unless directed otherwise. Check labs at regular intervals wither q 3 months or q 6 months based on previous levels of control. S leep apnea - pt states that the mask is not comfortable, but she is using it despite the discomfort and does feel more rested in the morning when awakening. 05/19/2018 Appointment: Kailee Moreira WPtel: [facility]1 [phone] (30 min) Complex 05/19/2018 Patient Education: Patient Medication Summary Completed 05/19/2018 Visit Plan: Hypertension - well con trolled - continue with current medications, continue with no added salt diet. Pt has been encouraged to exercise daily. The pt has been advised to call the office if there are any acute concerns about change in blood pressure readings at home. Hypothyroidism - pt with chronic hypothyroidism, continue with current medication, will monitor pt to signs or symptoms of lack of adequate supplementation. Pt is to continue with current dose of medication unless directed otherwise. Check labs at regular intervals wither q 3 months or q 6 months based on previous levels of control. L ow back pain - recommended patient to start stretching exercises as well as use of voltaren gel to the lateral thighs bilaterally 01/12/2018 Appointment: Kailee Moreira WPtel: [facility] (15 min) Moderate 01/12/2018 Patient Education: Patient Medication Summary Completed 01/12/2018 Appointment: Kailee Moreira WPtel: [facility]5 [facility] (15 min) Moderate 12/02/2017 Visit Plan: Headache - recommended patient to use PRN Fioricet for headaches - call if not improving. 10/12/2017 Appointment: Kailee Moreira WPtel: [address] [place], [place] [id number] (15 min) Moderate 10/12/2017 Patient Education: Patient Medication Summary Completed 10/12/2017 Visit Plan: Hypothyroidism - pt wit h chronic hypothyroidism, continue with current medication, will monitor pt to signs or symptoms of lack of adequate supplementation. Pt is to continue with current dose of medication unless directed otherwise. Check labs at regular intervals wither q 3 months or q 6 months based on previous levels of control. Sleep apnea - order humidification for cpap - [facility]- find out if they need to deliver it or if they need to go pick it up Hypertension - well controlled - continue with current medications, continue with no added salt diet. Pt has been encouraged to exercise daily. The pt has been advised to call the office if there are any acute concerns about change in blood pressure readings at home. 08/06/2017 Appointment: Kailee Moreira WPtel: [facility] [place] (15 min) Moderate 08/06/2017 Patient Education: Patient Medication Summary Completed 08/06/2017 Care Plan: Comp Metabolic Pending 08/06/2017 Care Plan: Tsh Pending 08/06/2017 Care Plan: Free T4 Pending 08/06/2017 Care Plan: Lipid Pending 08/06/2017 Care Plan: Cbc With Differential Pending 08/06/2017 Appointment: Kailee Moreira WPtel: [address] [place] [id number] [place] (15 min) Moderate 07/21/2017 Visit Plan: Hypothyroidism - pt wit h chronic hypothyroidism, continue with current medication, will monitor pt to signs or symptoms of lack of adequate supplementation. Pt is to continue with current dose of medication unless directed otherwise. Check labs at regular intervals wither q 3 months or q 6 months based on previous levels of control. Seizure disorder/abnormal EEG - increase keppra to 500mg bid - I will have nursing staff call dr. schaeffer about sandkey appt Low blood pressure stop lisinopril. 05/13/2017 Appointment: Kailee Moreira WPtel: [facility]3 [facility]66[facility] (15 min) Moderate 05/13/2017 Patient Education: Patient Medication Summary Completed 05/13/2017 Patient Education: Hypertension Completed 05/13/2017 Appointment: Kailee Moreira WPtel: [facility]7 [facility]66[facility] (15 min) Moderate 05/06/2017 Visit Plan: Medicare Exam - today w e discussed the patients past history, immunizations, preventative exams/evaluations - colonoscopy, fecal occult blood testing, routine labs for renal function, glucose, cholesterol, osteoporosis evaluations, cardiovascular testing and cancer screenings. We have also discussed mental health and the signs/symptoms of depression. The patient was advised of home safety evaluations and the need to make sure that as the aging process continues, we need to be aware of different ways to make the home a safer place to reside. The patient has also been counseled that exercise is necessary - and of utmost importance as we age to help decrease fall risk and to maintain independence in the home. Today we discussed the need for the patient to create paperwork for Advanced directives as well as for the patient to provide this office with a copy of her DOPA paperwork for health care surrogate. 03/19/2017 Appointment: Kiersten Armando WPtel: [facility] [address] - Annual Wellness Visit 03/19/2017 Patient Education: Patient Medication Summary Completed 03/19/2017 Visit Plan: Hypertension - well con trolled - continue with current medications, continue with no added salt diet. Pt has been encouraged to exercise daily. The pt has been advised to call the office if there are any acute concerns about change in blood pressure readings at home. Hypothyroidism - pt with chronic hypothyroidism, continue with current medication, will monitor pt to signs or symptoms of lack of adequate supplementation. Pt is to continue with current dose of medication unless directed otherwise. Check labs at regular intervals wither q 3 months or q 6 months based on previous levels of control. p hysical therapy at [facility] - water therapy for back eeg - needs ordered at hospital. 03/18/2017 Appointment: Kailee Moreira WPtel: [phone] [facility] (15 min) Moderate 03/18/2017 Patient Education: Patient Medication Summary Completed 03/18/2017 Visit Plan: Hypertension - well con trolled - continue with current medications, continue with no added salt diet. Pt has been encouraged to exercise daily. The pt has been advised to call the office if there are any acute concerns about change in blood pressure readings at home. Hypothyroidism - pt with chronic hypothyroidism, continue with current medication, will monitor pt to signs or symptoms of lack of adequate supplementation. Pt is to continue with current dose of medication unless directed otherwise. Check labs at regular intervals wither q 3 months or q 6 months based on previous levels of control. L ow back pain- the patient was instructed in appropriate posture, need for weight loss to alleviate abdominal obesity that is worsening the patient's back pain.. The pt is to use prn antiinflammatories to manage acute pain. The patient is to call the office if the pain is worsening or does not improve. 01/27/2017 Appointment: Kailee Moreira WPtel: [phone] [facility] (15 min) Moderate 01/27/2017 Patient Education: Patient Medication Summary Completed 01/27/2017 Patient Education: Hypertension Completed 01/27/2017 Visit Plan: Sinusitis - Pt has acut e infection - pain in face, maxillary region, Pt informed to use decongestant, RX given to patient, sinus rinses also recommended. Call if symptoms do not show improvement. 12/29/2016 Appointment: Marixa Lakhani [facility]Ptel: [phone] [place] (30 min) Complex 12/29/2016 Patient Education: Patient Medication Summary Completed 12/29/2016 Visit Plan: Hypertension - well con trolled - continue with current medications, continue with no added salt diet. Pt has been encouraged to exercise daily. The pt has been advised to call the office if there are any acute concerns about change in blood pressure readings at home. Hypothyroidism - pt with chronic hypothyroidism, continue with current medication, will monitor pt to signs or symptoms of lack of adequate supplementation. Pt is to continue with current dose of medication unless directed otherwise. Check labs at regular intervals wither q 3 months or q 6 months based on previous levels of control. 11/19/2016 Appointment: Kailee Moreira WPtel: [phone] [facility] (15 min) Moderate 11/19/2016 Patient Education: Patient Medication Summary Completed 11/19/2016 Visit Plan: Hypothyroidism - pt wit h chronic hypothyroidism, continue with current medication, will monitor pt to signs or symptoms of lack of adequate supplementation. Pt is to continue with current dose of medication unless directed otherwise. Check labs at regular intervals wither q 3 months or q 6 months based on previous levels of control. Hypertension - well controlled - continue with current medications, continue with no added salt diet. Pt has been encouraged to exercise daily. The pt has been advised to call the office if there are any acute concerns about change in blood pressure readings at home. C hronic c-diff colitis - improving - recommended pt continue with current regimen as symptoms have improved. 08/13/2016 Appointment: Kailee Moreira WPtel: [facility] (15 min) Moderate 08/13/2016 Patient Education: Patient Medication Summary Completed 08/13/2016 Patient Education: Hypertension Completed 08/13/2016 Appointment: Kailee Moreira WPtel: [phone] [facility] (30 min) Complex 07/31/2016 Visit Plan: Hypertension - well con trolled - continue with current medications, continue with no added salt diet. Pt has been encouraged to exercise daily. The pt has been advised to call the office if there are any acute concerns about change in blood pressure readings at home. Chronic Clostridium Difficile Colitis - pt has had Cdiff off and on for about 2.5 months - I would recommend restarting flagyl 500mg qid Back pain - continue with current treatment strategy - pt with stable symptoms. Hypothyroidism - pt with chronic hypothyroidism, continue with current medication, will monitor pt to signs or symptoms of lack of adequate supplementation. Pt is to continue with current dose of medication unless directed otherwise. Check labs at regular intervals wither q 3 months or q 6 months based on previous levels of control. 07/03/2016 Appointment: Kailee Moreira WPtel: [phone] [phone] (15 min) Moderate 07/03/2016 Patient Education: Patient Medication Summary Completed 07/03/2016 Patient Education: Hypertension Completed 07/03/2016 Visit Plan: Cdiff colitis - pt to h ave repeat testing - if positive will have to repeat treatment. Continue with probiotic. Lymes disease - continue with treatment per Dr. Carrillo. alex sample x 18 days given to patient. 05/07/2016 Appointment: Kailee Moreira WPtel: [facility]4 [facility] (15 min) Moderate 05/07/2016 Patient Education: Patient Medication Summary Completed 05/07/2016 Visit Plan: Diarrhea - suspect the diarrhea is Cdiff related - check stool and treat with flagyl, probiotic to increase to three times daily - continue to hold iv antibiotic. Lyme disease - treating with iv antibiotics - on hold while she has diarrhea. 04/08/2016 Appointment: Kailee Moreira WPtel: [phone] (15 min) Moderate 04/08/2016 Patient Education: Patient Medication Summary Completed 04/08/2016 Appointment: Kailee Moreira WPtel: [phone] [facility] (15 min) Moderate 04/03/2016 Visit Plan: Medicare Exam - today w ira discussed the patients past history, immunizations, preventative exams/evaluations - colonoscopy, fecal occult blood testing, routine labs for renal function, glucose, cholesterol, osteoporosis evaluations, cardiovascular testing and cancer screenings. We have also discussed mental health and the signs/symptoms of depression. The patient was advised of home safety evaluations and the need to make sure that as the aging process continues, we need to be aware of different ways to make the home a safer place to reside. The patient has also been counseled that exercise is necessary - and of utmost importance as we age to help decrease fall risk and to maintain independece in the home. Today we discussed the need for the patient to create paperwork for Advanced directives as well as for the patient to provide this office with a copy of her DOPA paperwork for health care surrogate. Lyme disease - sees Dr. Nabor Carrillo - has antibiotic treatment plan, see scanned document. 03/11/2016 Visit Plan: Medicare Exam - today w e discussed the patients past history, immunizations, preventative exams/evaluations - colonoscopy, fecal occult blood testing, routine labs for renal function, glucose, cholesterol, osteoporosis evaluations, cardiovascular testing and cancer screenings. We have also discussed mental health and the signs/symptoms of depression. The patient was advised of home safety evaluations and the need to make sure that as the aging process continues, we need to be aware of different ways to make the home a safer place to reside. The patient has also been counseled that exercise is necessary - and of utmost importance as we age to help decrease fall risk and to maintain independece in the home. Today we discussed the need for the patient to create paperwork for Advanced directives as well as for the patient to provide this office with a copy of her DOPA paperwork for health care surrogate. Lyme disease - sees Dr. Nabor Carrillo - has antibiotic treatment plan, see scanned document. 03/11/2016 Visit Plan: Medicare Exam - today w e discussed the patients past history, immunizations, preventative exams/evaluations - colonoscopy, fecal occult blood testing, routine labs for renal function, glucose, cholesterol, osteoporosis evaluations, cardiovascular testing and cancer screenings. We have also discussed mental health and the signs/symptoms of depression. The patient was advised of home safety evaluations and the need to make sure that as the aging process continues, we need to be aware of different ways to make the home a safer place to reside. The patient has also been counseled that exercise is necessary - and of utmost importance as we age to help decrease fall risk and to maintain independece in the home. Today we discussed the need for the patient to create paperwork for Advanced directives as well as for the patient to provide this office with a copy of her DOPA paperwork for health care surrogate. Lyme disease - Diagnosis: Borreliosis - sees Dr. Nabor Carrillo - has antibiotic treatment plan, see scanned document. 03/11/2016 Patient Education: Patient Medication Summary Completed 03/11/2016 [facility]ment: [phone] [id number] (15 min) Moderate 01/24/2016 Visit Plan: Tachycardia - I have at tempted to call Dr. Corbin's office - I left a message on the Nurse-Line -for Dr. Corbin's office - to ask about irregular beats or rapid heart beats. I have called to ask about the patient qualifying for cardiac rehab - they have yet to call back. Injection today for antibiotic. Hypothyroidism - pt with chronic hypothyroidism, continue with current medication, will monitor pt to signs or symptoms of lack of adequate supplementation. Pt is to continue with current dose of medication unless directed otherwise. Check labs at regular intervals wither q 3 months or q 6 months based on previous levels of control. 12/27/2015 Appointment: [phone] [id number] (15 min) Moderate 12/27/2015 Patient Education: Patient Medication Summary Completed 12/27/2015 Visit Plan: Hypertension - well con trodalied - continue with current medications, continue with no added salt diet. Pt has been encouraged to exercise daily. The pt has been advised to call the office if there are any acute concerns about change in blood pressure readings at home. 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 09/24/2015 Patient Education: Patient Medication Summary Completed 09/24/2015 Patient Education: Hypertension Completed 09/24/2015 Patient Education: Patient Medication Summary Completed 07/10/2015 Visit Plan: Hypothyroidism - pt wit h chronic hypothyroidism, continue with current medication, will monitor pt to signs or symptoms of lack of adequate supplementation. Pt is to continue with current dose of medication unless directed otherwise. Check labs at regular intervals wither q 3 months or q 6 months based on previous levels of control. Low back pain- the patient was instructed in appropriate posture, need for weight loss to alleviate abdominal obesity that is worsening the patient's back pain.. The pt is to use prn antiinflammatories to manage acute pain. The patient is to call the office if the pain is worsening or does not improve. 06/26/2015 Visit Plan: Hypothyroidism - pt wit h chronic hypothyroidism, continue with current medication, will monitor pt to signs or symptoms of lack of adequate supplementation. Pt is to continue with current dose of medication unless directed otherwise. Check labs at regular intervals wither q 3 months or q 6 months based on previous levels of control. Low back pain- the patient was instructed in appropriate posture, need for weight loss to alleviate abdominal obesity that is worsening the patient's back pain.. The pt is to use prn antiinflammatories to manage acute pain. The patient is to call the office if the pain is worsening or does not improve. 06/26/2015 Appointment: Kailee Moreira WPtel: [address] [place], [place] [id number] (15 min) Moderate 06/26/2015 Patient Education: Patient Medication Summary Completed 06/26/2015 Patient Education: Patient Medication Summary Completed 06/06/2015 Visit Plan: Hypertension - well con trolled - continue with current medications, continue with no added salt diet. Pt has been encouraged to exercise daily. The pt has been advised to call the office if there are any acute concerns about change in blood pressure readings at home. Low back pain- lesion of cauda equina-repeat MRI lumbar spine Lymes disease-sees Dr Carrillo-lymes specialist in [place], [place] CAD-HX [id number] by Dr Hyde 04/10/2015 Appointment: (S) New Patient 04/10/2015 Patient Education: Patient Medication Summary Completed 04/10/2015 Patient Education: Hypertension Completed 04/10/2015 Instructions Comment . Hypertension - wel l controlled - continue with current medications, continue with no added salt diet. Pt has been encouraged to exercise daily. The pt has been advised to call the office if there are any acute concerns about change in blood pressure readings at home. Hypothyroidism - pt with chronic hypothyroidism, continue with current medication, will monitor pt to signs or symptoms of lack of adequate supplementation. Pt is to continue with current dose of medication unless directed otherwise. Check labs at regular intervals q 3 months or q 6 months based on previous levels of control. Breast pain - may be due to estrogen - I have recommended pt to decrease estrogen down to 0.25gram twice weekly. Headache - recommended pt to stop some of her supplementation as this may be causing her to have the headaches. She is to let me know if the symptoms do not improve after the supplement is changed. use two old goats on back and groin at least bid, may use up to 4 times daily. . Hypothyroidism - pt with chronic hypot hyroidism, continue with current medication, will monitor pt to signs or symptoms of lack of adequate supplementation. Pt is to continue with current dose of medication unless directed otherwise. Check labs at regular intervals wither q 3 months or q 6 months based on previous levels of control. Low back pain- the patient was instructed in appropriate posture, need for weight loss to alleviate abdominal obesity that is worsening the patient's back pain.. The pt is to use prn antiinflammatories to manage acute pain. The patient is to call the office if the pain is worsening or does not improve. . Medicare Exam - to day we discussed the patients past history, immunizations, preventative exams/evaluations - colonoscopy, fecal occult blood testing, routine labs for renal function, glucose, cholesterol, osteoporosis evaluations, cardiovascular testing and cancer screenings. We have also discussed mental health and the signs/symptoms of depression. The patient was advised of home safety evaluations and the need to make sure that as the aging process continues, we need to be aware of different ways to make the home a safer place to reside. The patient has also been counseled that exercise is necessary - and of utmost importance as we age to help decrease fall risk and to maintain independence in the home. Today we discussed the need for the patient to create paperwork for Advanced directives as well as for the patient to provide this office with a copy of her DOPA paperwork for health care surrogate. 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 . Hypertension - well controlled - lupis nue with current medications, continue with no added salt diet. Pt has been encouraged to exercise daily. The pt has been advised to call the office if there are any acute concerns about change in blood pressure readings at home. 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 . Hypertension - wel l controlled - continue with current medications, continue with no added salt diet. Pt has been encouraged to exercise daily. The pt has been advised to call the office if there are any acute concerns about change in blood pressure readings at home. Hypothyroidism - pt with chronic hypothyroidism, continue with current medication, will monitor pt to signs or symptoms of lack of adequate supplementation. Pt is to continue with current dose of medication unless directed otherwise. Check labs at regular intervals wither q 3 months or q 6 months based on previous levels of control. Low back pain- the patient was instructed in appropriate posture, need for weight loss to alleviate abdominal obesity that is worsening the patient's back pain.. The pt is to use prn antiinflammatories to manage acute pain. The patient is to call the office if the pain is worsening or does not improve. . Hypertension - wel l controlled - continue with current medications, continue with no added salt diet. Pt has been encouraged to exercise daily. The pt has been advised to call the office if there are any acute concerns about change in blood pressure readings at home. Hypothyroidism - pt with chronic hypothyroidism, continue with current medication, will monitor pt to signs or symptoms of lack of adequate supplementation. Pt is to continue with current dose of medication unless directed otherwise. Check labs at regular intervals q 3 months or q 6 months based on previous levels of control. . Hypertension - wel l controlled - continue with current medications, continue with no added salt diet. Pt has been encouraged to exercise daily. The pt has been advised to call the office if there are any acute concerns about change in blood pressure readings at home. Hypothyroidism - pt with chronic hypothyroidism, continue with current medication, will monitor pt to signs or symptoms of lack of adequate supplementation. Pt is to continue with current dose of medication unless directed otherwise. Check labs at regular intervals wither q 3 months or q 6 months based on previous levels of control. . Hypertension - wel l controlled - continue with current medications, continue with no added salt diet. Pt has been encouraged to exercise daily. The pt has been advised to call the office if there are any acute concerns about change in blood pressure readings at home. Hypothyroidism - pt with chronic hypothyroidism, continue with current medication, will monitor pt to signs or symptoms of lack of adequate supplementation. Pt is to continue with current dose of medication unless directed otherwise. Check labs at regular intervals wither q 3 months or q 6 months based on previous levels of control. physical therapy at [facility] - water therapy for back eeg - needs ordered at hospital. . Hypothyroidism - p t with chronic hypothyroidism, continue with current medication, will monitor pt to signs or symptoms of lack of adequate supplementation. Pt is to continue with current dose of medication unless directed otherwise. Check labs at regular intervals wither q 3 months or q 6 months based on previous levels of control. Hypertension - well controlled - continue with current medications, continue with no added salt diet. Pt has been encouraged to exercise daily. The pt has been advised to call the office if there are any acute concerns about change in blood pressure readings at home. Chronic c-diff colitis - improving - recommended pt continue with current regimen as symptoms have improved. . Hypertension - wel l controlled - continue with current medications, continue with no added salt diet. Pt has been encouraged to exercise daily. The pt has been advised to call the office if there are any acute concerns about change in blood pressure readings at home. Hypothyroidism - pt with chronic hypothyroidism, continue with current medication, will monitor pt to signs or symptoms of lack of adequate supplementation. Pt is to continue with current dose of medication unless directed otherwise. Check labs at regular intervals wither q 3 months or q 6 months based on previous levels of control. Low back pain - recommended patient to start stretching exercises as well as use of voltaren gel to the lateral thighs bilaterally . Diarrhea - discuss ed with pt - she has an appt with Dr. Azar - she is going to discuss fecal transplantation due to her recurrent C-Diff infection. Hypertension - well controlled - continue with current medications, continue with no added salt diet. Pt has been encouraged to exercise daily. The pt has been advised to call the office if there are any acute concerns about change in blood pressure readings at home. REPEAT MRI SPINE . Hypertension - well controlled - lupis nue with current medications, continue with no added salt diet. Pt has been encouraged to exercise daily. The pt has been advised to call the office if there are any acute concerns about change in blood pressure readings at home. Low back pain-lesion of cauda equina-repeat MRI lumbar spine Lymes disease-sees Dr Carrillo-lymes specialist in [place], [place] CAD-HX [id number] by Dr Mary Ellen linder injection to day okay to refill fioricet nasal saline rinses call tomorrow if headache not better and we can send in a short course of steroids . Headache -nasal congestion-refill alana icet for prn use-kenalog injection today in the office -call if symptoms do not resolve or if any worse-patient verbalized understanding of plan. . Hypothyroidism - p t with chronic hypothyroidism, continue with current medication, will monitor pt to signs or symptoms of lack of adequate supplementation. Pt is to continue with current dose of medication unless directed otherwise. Check labs at regular intervals wither q 3 months or q 6 months based on previous levels of control. Sleep apnea - order humidification for cpap - [facility]- find out if they need to deliver it or if they need to go pick it up Hypertension - well controlled - continue with current medications, continue with no added salt diet. Pt has been encouraged to exercise daily. The pt has been advised to call the office if there are any acute concerns about change in blood pressure readings at home. . Contact dermatitis -discussed with Dr Moreira -rx for dexamethasone sent to patient's pharmacy and instructed on use-will also send rx for topical betamethsone -instructed patient to call if symptoms do not resolve or if any worse Mtysybhot-XEA-ndqmbpyo fluids-monitor blood pressure-call if dizziness does not resolve or if any worse-patient and verbalized understanding use two old goats on back and groin at least bid, may use up to 4 times daily. . Hypothyroidism - pt with chronic hypot hyroidism, continue with current medication, will monitor pt to signs or symptoms of lack of adequate supplementation. Pt is to continue with current dose of medication unless directed otherwise. Check labs at regular intervals wither q 3 months or q 6 months based on previous levels of control. Low back pain- the patient was instructed in appropriate posture, need for weight loss to alleviate abdominal obesity that is worsening the patient's back pain.. The pt is to use prn antiinflammatories to manage acute pain. The patient is to call the office if the pain is worsening or does not improve. . Tachycardia - I mckenna ve attempted to call Dr. Corbin's office - I left a message on the Nurse-Line -for Dr. Corbin's office - to ask about irregular beats or rapid heart beats. I have called to ask about the patient qualifying for cardiac rehab - they have yet to call back. Injection today for antibiotic. Hypothyroidism - pt with chronic hypothyroidism, continue with current medication, will monitor pt to signs or symptoms of lack of adequate supplementation. Pt is to continue with current dose of medication unless directed otherwise. Check labs at regular intervals wither q 3 months or q 6 months based on previous levels of control. . Diarrhea - suspect the diarrhea is Cdiff related - check stool and treat with flagyl, probiotic to increase to three times daily - continue to hold iv antibiotic. Lyme disease - treating with iv antibiotics - on hold while she has diarrhea. . Headache - recomme nded patient to use PRN Fioricet for headaches - call if not improving. . Hypertension - wel l controlled - continue with current medications, continue with no added salt diet. Pt has been encouraged to exercise daily. The pt has been advised to call the office if there are any acute concerns about change in blood pressure readings at home. Chronic Clostridium Difficile Colitis - pt has had Cdiff off and on for about 2.5 months - I would recommend restarting flagyl 500mg qid Back pain - continue with current treatment strategy - pt with stable symptoms. Hypothyroidism - pt with chronic hypothyroidism, continue with current medication, will monitor pt to signs or symptoms of lack of adequate supplementation. Pt is to continue with current dose of medication unless directed otherwise. Check labs at regular intervals wither q 3 months or q 6 months based on previous levels of control. . Medicare Exam - to day we discussed the patients past history, immunizations, preventative exams/evaluations - colonoscopy, fecal occult blood testing, routine labs for renal function, glucose, cholesterol, osteoporosis evaluations, cardiovascular testing and cancer screenings. We have also discussed mental health and the signs/symptoms of depression. The patient was advised of home safety evaluations and the need to make sure that as the aging process continues, we need to be aware of different ways to make the home a safer place to reside. The patient has also been counseled that exercise is necessary - and of utmost importance as we age to help decrease fall risk and to maintain independece in the home. Today we discussed the need for the patient to create paperwork for Advanced directives as well as for the patient to provide this office with a copy of her DOPA paperwork for health care surrogate. . Hypertension - wel l controlled - continue with current medications, continue with no added salt diet. Pt has been encouraged to exercise daily. The pt has been advised to call the office if there are any acute concerns about change in blood pressure readings at home. Hypothyroidism - pt with chronic hypothyroidism, continue with current medication, will monitor pt to signs or symptoms of lack of adequate supplementation. Pt is to continue with current dose of medication unless directed otherwise. Check labs at regular intervals wither q 3 months or q 6 months based on previous levels of control. Sleep apnea - pt states that the mask is not comfortable, but she is using it despite the discomfort and does feel more rested in the morning when awakening. . Cdiff colitis - pt to have repeat testing - if positive will have to repeat treatment. Continue with probiotic. Lymes disease - continue with treatment per Dr. Carrillo. darlinglin sample x 18 days given to patient. . Medicare Exam - to day we discussed the patients past history, immunizations, preventative exams/evaluations - colonoscopy, fecal occult blood testing, routine labs for renal function, glucose, cholesterol, osteoporosis evaluations, cardiovascular testing and cancer screenings. We have also discussed mental health and the signs/symptoms of depression. The patient was advised of home safety evaluations and the need to make sure that as the aging process continues, we need to be aware of different ways to make the home a safer place to reside. The patient has also been counseled that exercise is necessary - and of utmost importance as we age to help decrease fall risk and to maintain independece in the home. Today we discussed the need for the patient to create paperwork for Advanced directives as well as for the patient to provide this office with a copy of her DOPA paperwork for health care surrogate. Lyme disease - sees Dr. Nabor Carrillo - has antibiotic treatment plan, see scanned document. . Medicare Exam - to day we discussed the patients past history, immunizations, preventative exams/evaluations - colonoscopy, fecal occult blood testing, routine labs for renal function, glucose, cholesterol, osteoporosis evaluations, cardiovascular testing and cancer screenings. We have also discussed mental health and the signs/symptoms of depression. The patient was advised of home safety evaluations and the need to make sure that as the aging process continues, we need to be aware of different ways to make the home a safer place to reside. The patient has also been counseled that exercise is necessary - and of utmost importance as we age to help decrease fall risk and to maintain independece in the home. Today we discussed the need for the patient to create paperwork for Advanced directives as well as for the patient to provide this office with a copy of her DOPA paperwork for health care surrogate. Lyme disease - sees Dr. Nabor Carrillo - has antibiotic treatment plan, see scanned document. . Medicare Exam - to day we discussed the patients past history, immunizations, preventative exams/evaluations - colonoscopy, fecal occult blood testing, routine labs for renal function, glucose, cholesterol, osteoporosis evaluations, cardiovascular testing and cancer screenings. We have also discussed mental health and the signs/symptoms of depression. The patient was advised of home safety evaluations and the need to make sure that as the aging process continues, we need to be aware of different ways to make the home a safer place to reside. The patient has also been counseled that exercise is necessary - and of utmost importance as we age to help decrease fall risk and to maintain independece in the home. Today we discussed the need for the patient to create paperwork for Advanced directives as well as for the patient to provide this office with a copy of her DOPA paperwork for health care surrogate. Lyme disease - Diagnosis: Borreliosis - sees Dr. Nabor Carrillo - has antibiotic treatment plan, see scanned document. . Hypertension - wel l controlled - continue with current medications, continue with no added salt diet. Pt has been encouraged to exercise daily. The pt has been advised to call the office if there are any acute concerns about change in blood pressure readings at home. Hypothyroidism - pt with chronic hypothyroidism, continue with current medication, will monitor pt to signs or symptoms of lack of adequate supplementation. Pt is to continue with current dose of medication unless directed otherwise. Check labs at regular intervals q 3 months or q 6 months based on previous levels of control. Vaginal dryness - rx for estradiol twice weekly. Low back pain - pt to see the chiropractor. . Poison Magalys - pt is to use topical treatments as directed. Pt is cleanse clothing in hot water with soap, and call if symptoms do not improve or if they worsen. . Contact dermatitis due to poison magalys/oak-kenalog injection today- pt is to use topical treatments as directed. Pt is cleanse clothing in hot water with soap, and call if symptoms do not improve or if they worsen. . Hypothyroidism - p t with chronic hypothyroidism, continue with current medication, will monitor pt to signs or symptoms of lack of adequate supplementation. Pt is to continue with current dose of medication unless directed otherwise. Check labs at regular intervals wither q 3 months or q 6 months based on previous levels of control. Seizure disorder/abnormal EEG - increase keppra to 500mg bid - I will have nursing staff call dr. schaeffer about aby appjon Low blood pressure stop lisinopril. DOXYCYCLINE 100MG TW ICE DAILY X 7 DAYS . Sinusitis - Pt has acute infection - p ain in face, maxillary region, Pt informed to use decongestant, RX given to patient, sinus rinses also recommended. Call if symptoms do not show improvement.
--- OUTSIDE RECORDS SUMMARY | 2020-05-05 11:45 | XMS REPORT | CCD ---
Author Author Emily Lakhani Organization [facility] Address [address] [place] [address] Phone Care Team Providers Care Plate Molder Name Role Phone PP Unavailable CCM Unavailable Summary Purpose Interface Exchange Insurance Providers Payer name Policy type / Coverage type Covered democrat ID Effective Begin Date Effective End Date WPS Medicare Part B Medicare Part B [id number] Unknown [employer] Medicare Part B [id number] Unknown Family history Mother Diagnosis Age At [...] Retir ed 04/10/[address]: 478806107 Never smoker 04/10/[address]: 307684053 Never drinks alcohol 04/10/2015 Allergies, Adverse Reactions, [...] tabl ets in a dose pack RxNorm: 198374 1 Tablet(s) PO UD 05/19/2019 05/24/2019 In active 6-5-4-3-2-1 Prozac 10 mg capsule RxNorm: 226282 1 Capsule(s) PO daily 05/06/2019 09/02/2019 Active Prozac 10 mg capsule RxNorm: 215218 1 Capsule(s) PO daily 05/06/2019 05/05/2019 Inactive estradiol 0.01% (0.1 mg/gram) vaginal cream RxNorm: 206217 1 GRAM(S) VAG BIW 03/31/2019 03/24/2020 Ac tive estradiol 0.01% (0.1 mg/gram) vaginal cream RxNorm: 493938 1 GRAM(S) VAG BIW 02/21/2019 08/13/2020 Ac tive Ventolin HFA 90 mcg/ actuation aerosol inhaler RxNorm: 6838129 1 INH TID as needed dyspnea 01/24/2019 08/21/2019 Active Fioricet 50 mg-300 m g-40 mg capsule RxNorm: 0424446 1 Capsule(s) PO Q8 P RN as needed for headache 01/10/2019 No Stop Date Active dexamethasone 4 mg t ablet RxNorm: 795182 1 Tablet(s) PO daily 01/10/2019 01/09/2019 Inactive to be started on 3--19 Kenalog 40 mg/mL sadiq pension for injection RxNorm: 7890377 Milliliter(s) Inj 01/10/2019 01/10/2019 In active dexamethasone 4 mg t ablet RxNorm: 058967 1 Tablet(s) PO daily 01/10/2019 01/14/2019 Inactive to be started on 01-11-19 cyclobenzaprine 5 mg tablet RxNorm: 975619 1 Tablet(s) PO TID 12/14/2018 12/20/2018 Inactive cyclobenzaprine 5 mg tablet RxNorm: 254817 1 Tablet(s) PO TID 12/14/2018 12/13/2018 Inactive [place] Thyroid 90 mg tablet RxNorm: 309221 Tablet(s) 1/2 TABLET( S) PO DAILY 11/18/2018 02/10/2020 Ac tive [place] Thyroid 60 mg tablet RxNorm: 455372 1 Tablet(s) PO 3 x we jenise Dominguez 11/17/2018 11/17/2018 In active hold until she is ready to refill [place] Thyroid 30 mg tablet RxNorm: 337931 1 Tablet(s) PO 4 time s a week Thu SAT 11/17/2018 11/16/2018 Inactive Please fill now- she will use her curren t supply of 60mg until she needs refill [place] Thyroid 30 mg tablet RxNorm: 810292 1 Tablet(s) PO 4 time s a week Thu SAT 11/17/2018 11/17/2018 Inactive Please fill now- she will use her curren t supply of 60mg until she needs refill Flagyl 500 mg tablet RxNorm: 849186 1 Tablet(s) PO TID 2018 10/17/2018 Inactive Flagyl 500 mg tablet RxNorm: 507089 1 Tablet(s) PO TID 10/06/2018 10/05/2018 Inactive Flagyl 500 mg tablet RxNorm: 122270 1 Tablet(s) PO TID 10/06/2018 10/10/2018 Inactive cefdinir 300 mg capsule RxNorm: 944391 1 Capsule(s) PO BID 09/29/2018 10/05/2018 Inactive cefdinir 300 mg capsule RxNorm: 696335 1 Capsule(s) PO BID 09/29/2018 09/28/2018 Inactive estradiol 0.01% (0.1 mg/gram) vaginal cream RxNorm: 294704 1 Gram(s) VAG BIW 09/15/2018 02/20/2019 In active Imitrex 50 mg tablet RxNorm: 399792 TAKE WITH ONSET OF MIGRAINE- MAY TAKE AN ADDITIONAL DOSE IF NO RELIEF OF HEADACHE IN 1 HOUR- MAX OF 3 DOSES IN 24 HOURS Tablet(s) 06/14/2018 No Stop Date Active betamethasone gwendolyn te 0.1 % topical cream RxNorm: 635925 1 Application TOP TID 06/01/2018 06/10/2018 In active dexamethasone 4 mg t ablet RxNorm: 793214 1 Tablet(s) PO daily 06/01/2018 06/05/2018 Inactive Kenalog 40 mg/mL sadiq pension for injection RxNorm: 8423409 1.5 Milliliter(s) In j 05/24/2018 05/24/2018 In active amitriptyline 10 mg tablet RxNorm: 168798 1/2 TO 1 TABLET(S) PO QPM 01/21/2018 09/14/2018 Inactive [place] Thyroid 60 mg tablet RxNorm: 771471 1 Tablet(s) PO daily 01/12/2018 11/16/2018 Inactive carvedilol 3.125 mg tablet RxNorm: 389522 1 Tablet(s) PO BID 10/12/2017 No Stop Date Active Fiorinal-Codeine #3 30 mg-50 mg-325 mg-40 mg capsule RxNorm: 785556 1 Capsule(s) PO BID 10/12/2017 11/10/2017 Inactive progesterone microni zed 100 mg capsule RxNorm: 488959 1 Capsule(s) PO daily on days 1- 25 of each month 10/12/2017 01/11/2018 Inactive [place] Thyroid 90 mg tablet RxNorm: 307169 1/2 Tablet(s) PO melinda y 1/2 TABLET(S) PO DAILY 08/06/2017 01/11/2018 Inactive [place] Thyroid 90 mg tablet RxNorm: 135727 1/2 TABLET(S) PO DAILY 07/14/2017 08/05/2017 Inactive Keppra 500 mg tablet RxNorm: 027068 1 Tablet(s) PO BID 05/13/2017 08/05/2017 Inactive Deplin (algal oil) 1 5 mg-90.314 mg capsule RxNorm: TAKE ONE CAPSULE BY MOUTH O NE TIME DAILY 05/13/2017 01/11/2018 Inactive Keppra 250 mg tablet RxNorm: 682153 1 Tablet(s) PO daily 04/23/2017 04/22/2017 Inactive take 1 tab qd x 1 week then increase to BID Keppra 250 mg tablet RxNorm: 117802 1 Tablet(s) PO daily 04/23/2017 05/12/2017 Inactive take 1 tab qd x 1 week then increase to BID cyclobenzaprine 5 mg tablet RxNorm: 851954 1 Tablet(s) PO TID as needed 02/03/2017 02/22/2017 In active cyclobenzaprine 5 mg tablet RxNorm: 223800 1 Tablet(s) PO TID as needed 02/03/2017 02/02/2017 In active [place] Thyroid 90 mg tablet RxNorm: 249708 1/2 Tablet(s) PO daily 11/19/2016 03/18/2017 Inactive amitriptyline 10 mg tablet RxNorm: 043311 1/2 to 1 Tablet(s) PO QPM 11/19/2016 11/13/2017 Inactive fluconazole 50 mg ta blet RxNorm: 432834 1 Tablet(s) PO daily 08/20/2016 09/02/2016 Inactive [place] Thyroid 90 mg tablet RxNorm: 555014 1/2 Tablet(s) PO daily 08/11/2016 11/18/2016 Inactive Flagyl 500 mg tablet RxNorm: 879186 1 Tablet(s) PO TID 07/28/2016 01/11/2018 Inactive Flagyl 500 mg tablet RxNorm: 397681 1 Tablet(s) PO TID 07/17/2016 07/27/2016 Inactive amitriptyline 10 mg tablet RxNorm: 882512 1/2 to 1 Tablet(s) PO QPM 07/03/2016 10/30/2016 Inactive metronidazole 500 mg tablet RxNorm: 115624 1 Tablet(s) PO QID 07/03/2016 07/12/2016 Inactive amitriptyline 25 mg tablet RxNorm: 511153 1/2 -1 Tablet(s) PO Q HS as needed insomnia 06/26/2016 07/02/2016 Inactive vancomycin 125 mg ca psule RxNorm: 704957 1 Capsule(s) PO QID 06/20/2016 06/29/2016 Inactive [place] Thyroid 30 mg tablet RxNorm: 588547 1.5 Tablet(s) PO daily 06/20/2016 06/19/2016 Inactive [place] Thyroid 30 mg tablet RxNorm: 625330 1.5 Tablet(s) PO daily 06/20/2016 08/10/2016 Inactive fluconazole 50 mg ta blet RxNorm: 433603 1 Tablet(s) PO daily 06/16/2016 08/19/2016 Inactive amitriptyline 25 mg tablet RxNorm: 491548 1/2 -1 Tablet(s) PO Q HS as needed insomnia 06/12/2016 06/11/2016 Inactive amitriptyline 25 mg tablet RxNorm: 683010 1/2 -1 Tablet(s) PO Q HS as needed insomnia 06/12/2016 06/25/2016 Inactive vancomycin 125 mg ca psule RxNorm: 235927 1 Capsule(s) PO QID 06/12/2016 06/19/2016 Inactive fluconazole 50 mg ta blet RxNorm: 549818 1 Tablet(s) PO daily 06/12/2016 06/15/2016 Inactive Diflucan 150 mg tablet RxNorm: 612957 1 Tablet(s) PO daily 06/05/2016 06/09/2016 Inactive Deplin (algal oil) 1 5 mg-90.314 mg capsule RxNorm: 1 Capsule(s) PO daily 06/05/2016 06/04/2016 In active Diflucan 150 mg tablet RxNorm: 567768 1 Tablet(s) PO daily 06/05/2016 06/04/2016 Inactive Deplin (algal oil) 1 5 mg-90.314 mg capsule RxNorm: 1 Capsule(s) PO daily 06/05/2016 05/12/2017 In active nystatin 500,000 uni t tablet RxNorm: 039254 4 Tablet(s) PO daily 05/21/2016 09/17/2016 Inactive Vitamin D3 5,000 uni t tablet RxNorm: 774366 Tablet(s) PO daily 05/07/2016 No Stop Date Active nystatin 500,000 uni t tablet RxNorm: 755401 1 Tablet(s) PO Q4H 05/07/2016 05/20/2016 Inactive fluconazole 100 mg t ablet RxNorm: 708316 1 Tablet(s) PO daily 05/07/2016 06/11/2016 Inactive progesterone microni zed 100 mg capsule RxNorm: 845611 3 Capsule(s) PO daily on days 1- 25 of each month 05/07/2016 2017 Inactive metronidazole 500 mg tablet RxNorm: 792116 1 Tablet(s) PO TID 04/30/2016 05/09/2016 Inactive metronidazole 500 mg tablet RxNorm: 086101 1 Tablet(s) PO TID 04/30/2016 04/29/2016 Inactive vancomycin 125 mg ca psule RxNorm: 665813 1 Capsule(s) PO QID 04/29/2016 05/08/2016 Inactive vancomycin 125 mg ca psule RxNorm: 926692 1 Capsule(s) PO QID 04/29/2016 04/28/2016 Inactive Flagyl 500 mg tablet RxNorm: 596124 1 Tablet(s) PO TID 04/09/2016 04/08/2016 Inactive Flagyl 500 mg tablet RxNorm: 916961 1 Tablet(s) PO TID 04/09/2016 04/22/2016 Inactive carvedilol 3.125 mg tablet RxNorm: 905221 1 Tablet(s) PO BID 04/08/2016 2017 Inactive [place] Thyroid 60 mg tablet RxNorm: 253599 Tablet(s) PO 1 Tablet (s) daily 01/31/2016 06/19/2016 In active Pt request 90 day supply 11/23/2015 11:1 1:54 AM [place] Thyroid 30 mg tablet RxNorm: 128892 1 Tablet(s) daily 01/28/2016 01/30/2016 Inactive Pt request 90 day supply 11/23/2015 11:1 1:54 AM [place] Thyroid 30 mg tablet RxNorm: 296079 1 Tablet(s) daily 01/21/2016 01/27/2016 Inactive Pt request 90 day supply 11/23/2015 11:1 1:54 AM [place] Thyroid 30 mg tablet RxNorm: 726629 Tablet(s) TAKE ONE AN D ONE-HALF (45 MG) TABLET BY MOUTH EVERY DAY 01/02/2016 01/20/2016 Inactive Pt request 90 day supply 11/23/2015 11:11:54 AM Xylocaine 20 mg/mL ( 2 %) injection solution RxNorm: 2372503 2.5 Milliliter(s) In j BID with cefepime 12/27/2015 01/25/2016 Inactive cefepime 1 gram solu tion for injection RxNorm: 2591460 Inj 12/1012/27/2015 Inactive [place] Thyroid 30 mg tablet RxNorm: 679472 TAKE ONE TABLET BY [facility] EVERY DAY 11/23/2015 01/01/2016 In active Pt request 90 day supply 11/23/2015 11:1 1:54 AM Voltaren 1 % topical gel RxNorm: 252887 2 Gram(s) TOP QID 09/24/2015 12/26/2015 Inactive cyclobenzaprine 10 m g tablet RxNorm: 589571 1 Tablet(s) PO Q6 as needed 08/27/2015 05/06/2016 In active [place] Thyroid 30 mg tablet RxNorm: 165274 1 Tablet(s) PO daily 06/21/2015 06/20/2015 Inactive [place] Thyroid 30 mg tablet RxNorm: 894011 1 Tablet(s) PO daily 06/21/2015 11/22/2015 Inactive Synthroid 25 mcg tablet RxNorm: 724984 1 Tablet(s) PO daily 06/07/2015 06/06/2015 Inactive KASEY-1 Synthroid 25 mcg tablet RxNorm: 685472 1 Tablet(s) PO daily 06/07/2015 06/20/2015 Inactive KASEY-1 ofloxacin 0.3 % ear drops RxNorm: 001747 1-2 Drop(s) OTIC OU Q 4H as needed No Start Date Active Aspirin Low Dose 81 mg tablet,delayed release RxNorm: 682022 1 Tablet(s) PO daily No Start Date Active tyrosine (bulk) powder RxNorm: 1 Miscellaneous dash every am No Start Date Active arginine (L-arginine ) oral RxNorm: 1091 oral No Sta rt Date Active glutathione RxNorm: 4890 miscellaneous No Start Date Active Plaquenil 200 mg tablet RxNorm: 188439 1 Tablet(s) PO BID No Start Date 05/19/2016 Inactive fluconazole 100 mg t ablet RxNorm: 978472 1/2 Tablet(s) PO daily No Start Date 05/06/2016 Inactive fluconazole 150 mg t ablet RxNorm: 370651 1 Tablet(s) PO QW x4 No Start Date 12/26/2015 Inactive progesterone microni zed 100 mg capsule RxNorm: 345711 2 Capsule(s) PO daily No Start Date 05/06/2016 Inactive nystatin 500,000 uni t tablet RxNorm: 130893 1 Tablet(s) PO QID No Start Date 05/06/2016 Inactive cyclobenzaprine 10 m g tablet RxNorm: 681596 1 Tablet(s) PO Q6 as needed No Start Date 08/26/2015 Inactive vitamin K oral RxNorm: 8308 oral No Start Date 12/26/2015 Inactive carvedilol 3.125 mg tablet RxNorm: 255353 1 Tablet(s) PO daily No Start Date 04/07/2016 Inactive lisinopril 5 mg tablet RxNorm: 199136 1 Tablet(s) PO daily No Start Date 05/12/2017 Inactive azithromycin 250 mg tablet RxNorm: 113494 1 Tablet(s) PO daily will incrase to 2 per day No Start Date 12/26/2015 Inactive Probiotic 4X oral RxNorm: 7592074 oral No Start Date 01/07/2016 Inactive Imitrex 50 mg tablet RxNorm: 271035 TAKE WITH ONSET OF MIGRAINE- MAY TAKE AN ADDITIONAL DOSE IF NO RELIEF OF HEADACHE IN 1 HOUR- MAX OF 3 DOSES IN 24 HOURS No Start Date 06/13/2018 Inactive Vitamin D3 1,000 uni t tablet RxNorm: 339189 Tablet(s) PO daily No Start Date 05/06/2016 Inactive progesterone microni zed 100 mg capsule RxNorm: 217139 3 Capsule(s) PO daily rx from [facility] No Start Date 12/26/2015 Inactive lorazepam 0.5 mg tablet RxNorm: 346887 1/2-1 Tablet(s) PO daily as needed No Start Date 03/10/2016 Inactive Multiple Vitamin oral RxNorm: 05203 oral No Start Date 05/06/2016 Inactive Medication Administered Medication Codes Instruc tions Start Date Status Kenalog 40 mg/mL suspension for injection RxNorm: 0086679 Milliliter 01/10/2019 No longer Active Kenalog 40 mg/mL suspension for injection RxNorm: 6476682 1.5Milliliter 05/24/2018 No longer Active cefepime 1 gram solution for injection RxNorm: 8368539 12/27/2015 No longer A ctive Immunizations No [...] Observation Code Item Item Code Result Date Vitamin D 25 Oh [id number] VITAMIN D, 25 HYDROXY 51.28 ng/mL 02/18/2019 Tsh Ord6 TSH (3rd IS) 0.59 uIU/mL 02/18/2019 Free T4 Jfl321 FREE T4 0.64 ng/dL 02/18/2019 Lipid Ord30 [...] 30.4 pg 02/18/2019 Cbc With Differential Ord2 [place]% 15.5 % 02/18/2019 Cbc With Differential Ord2 [...] 1.30 K/ul 02/18/2019 Cbc With Differential Ord2 [place] ABS# 0.7 K/ul 02/18/2019 Cbc With Differential Ord2 Eos ABS# 0.2 K/ul 02/18/2019 Cbc With Differential Ord2 Baso ABS# 0.0 K/ul 02/18/2019 Ferritin Ord22 FERRITIN 31.1 ng/mL 02/18/2019 Comp Metabolic Bjm737 NA 145 mEq/L 06/14/2018 Comp Metabolic Ndy929 K 4.0 mEq/L 06/14/2018 Comp Metabolic Apt130 CL 106 mEq/L 06/14/2018 Comp Metabolic Jwm656 CO2 31.0 mEq/L 06/14/2018 Comp Metabolic Ikv428 AN ION GAP 12 06/14/2018 Comp Metabolic Blv930 GL UCOSE 88 mg/dL 06/14/2018 Comp Metabolic Fkm894 Cr eat 0.7 mg/dL 06/14/2018 Comp Metabolic Cvk925 eG FR 92 ml/min/1.73m2 06/14 Comp Metabolic Vja694 BUN 9 mg/dL 06/14/2018 Comp Metabolic Vqc580 B/ C Ratio 13.6 Ratio 06/14/2018 Comp Metabolic Nuq390 CA LCIUM 9.0 mg/dL 06/14/2018 Comp Metabolic Kfv938 AL K PHOS 36 U/L 06/14/2018 Comp Metabolic Fwh570 T(SGOT) 21 U/L 06/14/2018 Comp Metabolic Kxp746 AL T(SGPT) 22 U/L 06/14/2018 Comp Metabolic Bkh567 BI LI T 0.3 mg/dL 06/14/2018 Comp Metabolic Qnk347 AL BUMIN 3.8 g/dL 06/14/2018 Comp Metabolic Cal033 TP RO 5.8 g/dL 06/14/2018 Comp Metabolic Wvg625 GL OB 2.0 g/dL 06/14/2018 Comp Metabolic Swi004 A/ G Ratio 2.0 Ratio 06/14/2018 Comp Metabolic Lgp733 Os mo 287 mOsmo 06/14/2018 Free T4 Xvr925 FREE T4 0.66 ng/dL 06/14/2018 Tsh Ord6 [...] 29.8 pg 06/14/2018 Cbc With Differential Ord2 [place]% 13.9 % 06/14/2018 Cbc With Differential Ord2 [...] 1.40 K/ul 06/14/2018 Cbc With Differential Ord2 [place] ABS# 0.6 K/ul 06/14/2018 Cbc With Differential Ord2 Eos ABS# 0.2 K/ul 06/14/2018 Cbc With Differential Ord2 Baso ABS# 0.0 K/ul 06/14/2018 Free T4 Urx734 FREE T4 0.63 ng/dL 01/05/2018 Lipid Ord30 CHOL 246 mg/dL 01/05/2018 Lipid Ord30 HDL 79.0 mg/dl 01/05/2018 Lipid Ord30 TRIG 124 mg/dL 01/05/2018 Lipid Ord30 LDL 142 mg/dL 01/05/2018 Lipid Ord30 C/HDL 3.1 Ratio 01/05/2018 Tsh Ord6 TSH (3rd IS) 1.48 uIU/mL 01/05/2018 Tsh Ord6 hTSH II 2.03 uIU/mL 08/07/2017 Comp Metabolic Ims479 NA 142 mEq/L 08/07/2017 Comp Metabolic Qzp606 K 4.1 mEq/L 08/07/2017 Comp Metabolic Yip688 CL 105 mEq/L 08/07/2017 Comp Metabolic Gpv145 CO2 27.0 mEq/L 08/07/2017 Comp Metabolic Xcn358 AN ION GAP 14 08/07/2017 Comp Metabolic Wua249 GL UCOSE 89 mg/dL 08/07/2017 Comp Metabolic Cze587 Cr eat 0.7 mg/dL 08/07/2017 Comp Metabolic Zck280 eG FR 86 ml/min/1.73m2 08/07 Comp Metabolic Tpl590 BUN 16 mg/dL 08/07/2017 Comp Metabolic Znc712 B/ C Ratio 22.9 Ratio 08/07/2017 Comp Metabolic Xxd167 CA LCIUM 9.8 mg/dL 08/07/2017 Comp Metabolic Ijz121 AL K PHOS 41 U/L 08/07/2017 Comp Metabolic Gjy728 T(SGOT) 26 U/L 08/07/2017 Comp Metabolic Gyq745 AL T(SGPT) 21 U/L 08/07/2017 Comp Metabolic Kwo130 BI LI T 0.5 mg/dL 08/07/2017 Comp Metabolic Klh690 AL BUMIN 4.3 g/dL 08/07/2017 Comp Metabolic Aff155 TP RO 6.6 g/dL 08/07/2017 Comp Metabolic Eyd185 GL OB 2.3 g/dL 08/07/2017 Comp Metabolic Qwl939 A/ G Ratio 1.9 Ratio 08/07/2017 Comp Metabolic Qhg005 Os mo 284 mOsmo 08/07/2017 Free T4 Kad441 FREE T4 0.64 ng/dL 08/07/2017 Lipid Ord30 [...] 45.1 % 08/07/2017 Cbc With Differential Ord2 MCV 90.3 fl 08/07/2017 Cbc With Differential Ord2 Lymph% 35.1 % 08/07/2017 Cbc With Differential Ord2 MCH 30.3 pg 08/07/2017 Cbc With Differential Ord2 [place]% 13.9 % 08/07/2017 Cbc With Differential Ord2 MCHC 33.5 pg 08/07/2017 Cbc With Differential Ord2 Eos% 5.4 % 08/07/2017 Cbc With Differential Ord2 PLT 271 K/ul 08/07/2017 Cbc With Differential Ord2 Baso% 0.5 % 08/07/2017 Cbc With Differential Ord2 RDW 14.5 % 08/07/2017 Cbc With Differential Ord2 Neut ABS# 1.92 K/ul 08/07/2017 Cbc With Differential Ord2 Lymph ABS# 1.49 K/ul 08/07/2017 Cbc With Differential Ord2 [place] ABS# 0.6 K/ul 08/07/2017 Cbc With Differential [...] 47.1 % 11/20/2016 Cbc With Differential Ord2 MCV 92.3 fl 11/20/2016 Cbc With Differential Ord2 Lymph% 36.3 % 11/20/2016 Cbc With Differential Ord2 MCH 30.5 pg 11/20/2016 Cbc With Differential Ord2 [place]% 10.8 % 11/20/2016 Cbc With Differential Ord2 MCHC 33.1 pg 11/20/2016 Cbc With Differential Ord2 Eos% 5.4 % 11/20/2016 Cbc With Differential Ord2 PLT 243 K/ul 11/20/2016 Cbc With Differential Ord2 Baso% 0.4 % 11/20/2016 Cbc With Differential Ord2 RDW 14.6 % 11/20/2016 Cbc With Differential Ord2 Neut ABS# 2.10 K/ul 11/20/2016 Cbc With Differential Ord2 Lymph ABS# 1.62 K/ul 11/20/2016 Cbc With Differential Ord2 [place] ABS# 0.5 K/ul 11/20/2016 Cbc With Differential Ord2 Eos ABS# 0.2 K/ul 11/20/2016 Cbc With Differential Ord2 Baso ABS# 0.0 K/ul 11/20/2016 Free T4 Yfr484 FREE T4 0.80 ng/dL 11/20/2016 Tsh Ord6 hTSH II 1.35 uIU/mL 11/20/2016 Comp Metabolic Mij564 NA 139 mEq/L 11/20/2016 Comp Metabolic Ebv961 K 3.9 mEq/L 11/20/2016 Comp Metabolic Qzn046 CL 103 mEq/L 11/20/2016 Comp Metabolic Ovd104 CO2 30.0 mEq/L 11/20/2016 Comp Metabolic Hkz962 AN ION GAP 10 11/20/2016 Comp Metabolic Imc617 GL UCOSE 85 mg/dL 11/20/2016 Comp Metabolic Aem315 Cr eat 0.7 mg/dL 11/20/2016 Comp Metabolic Scj439 eG FR 93 ml/min/1.73m2 11/20 Comp Metabolic Cmn763 BUN 12 mg/dL 11/20/2016 Comp Metabolic Crz170 B/ C Ratio 18.2 Ratio 11/20/2016 Comp Metabolic Nfv970 CA LCIUM 9.1 mg/dL 11/20/2016 Comp Metabolic Pdn758 AL K PHOS 34 U/L 11/20/2016 Comp Metabolic Cgg327 T(SGOT) 18 U/L 11/20/2016 Comp Metabolic Auh581 AL T(SGPT) 14 U/L 11/20/2016 Comp Metabolic Frz180 BI LI T 0.5 mg/dL 11/20/2016 Comp Metabolic Zgf772 AL BUMIN 4.2 g/dL 11/20/2016 Comp Metabolic Yev075 TP RO 6.3 g/dL 11/20/2016 Comp Metabolic Vld208 GL OB 2.1 g/dL 11/20/2016 Comp Metabolic Vka869 A/ G Ratio 2.0 Ratio 11/20/2016 Comp Metabolic Npj216 Os mo 277 mOsmo 11/20/2016 Lipid Ord30 CHOL 189 mg/dL 11/20/2016 Lipid Ord30 HDL 81.0 mg/dl 11/20/2016 Lipid Ord30 TRIG 77 mg/dL 11/20/2016 Lipid Ord30 LDL 93 mg/dL 11/20/2016 Lipid Ord30 C/HDL 2.3 Ratio 11/20/2016 Testosterone Free Direct 512549 FREE TESTOSTERONE 0.7 pg/mL 10/06/2016 Estradiol 186271 ESTRADI OL 5.9 pg/mL 10/03/2016 Cortisol 886068 CORTISOL 23 ug/dL 10/03/2016 Progesterone Usx365 Prog 17.38 ng/mL 10/01/2016 Free T4 Bfj127 FREE T4 0.66 ng/dL 08/13/2016 Tsh Ord6 hTSH II 0.99 uIU/mL 08/13/2016 Testosterone Free Direct 827716 FREE TESTOSTERONE <0.2 pg/mL 07/05/2016 Estradiol 425993 ESTRADI OL <5.0 pg/mL 07/03/2016 Progesterone Tvc203 Prog 23.37 ng/mL 07/02/2016 Tsh Ord6 hTSH II 0.24 uIU/mL 06/17/2016 Free T4 Ffz594 FREE T4 0.86 ng/dL 06/17/2016 Estradiol 514745 ESTRADI OL <5.0 pg/mL 05/21/2016 Comp Metabolic Svk826 NA 140 mEq/L 05/20/2016 Comp Metabolic Zem047 K 4.1 mEq/L 05/20/2016 Comp Metabolic Vlv635 CL 106 mEq/L 05/20/2016 Comp Metabolic Mxd506 CO2 26.0 mEq/L 05/20/2016 Comp Metabolic Igz503 AN ION GAP 12 05/20/2016 Comp Metabolic Iuh179 GL UCOSE 81 mg/dL 05/20/2016 Comp Metabolic Pgv298 Cr eat 0.5 mg/dL 05/20/2016 Comp Metabolic Ddu004 eG FR 119 ml/min/1.73m2 05/09 Comp Metabolic Jgw583 BUN 15 mg/dL 05/20/2016 Comp Metabolic Ipf867 B/ C Ratio 28.3 Ratio 05/20/2016 Comp Metabolic Qsp573 CA LCIUM 8.9 mg/dL 05/20/2016 Comp Metabolic Suo898 AL K PHOS 36 U/L 05/20/2016 Comp Metabolic Toc151 T(SGOT) 25 U/L 05/20/2016 Comp Metabolic Iab667 AL T(SGPT) 23 U/L 05/20/2016 Comp Metabolic Nbh843 BI LI T 0.4 mg/dL 05/20/2016 Comp Metabolic Yrt460 AL BUMIN 3.7 g/dL 05/20/2016 Comp Metabolic Hzv069 TP RO 5.9 g/dL 05/20/2016 Comp Metabolic Cwg083 GL OB 2.2 g/dL 05/20/2016 Comp Metabolic And694 A/ G Ratio 1.7 Ratio 05/20/2016 Comp Metabolic Oux400 Os mo 279 mOsmo 05/20/2016 Progesterone Vfn579 Prog 8.44 ng/mL 05/20/2016 Cbc With Differential [...] 18.4 % 05/20/2016 Cbc With Differential Ord2 MCH 30.2 pg 05/20/2016 Cbc With Differential Ord2 [place]% 13.0 % 05/20/2016 Cbc With Differential Ord2 MCHC 33.7 pg 05/20/2016 Cbc With Differential Ord2 Eos% 3.5 % 05/20/2016 Cbc With Differential Ord2 PLT 224 K/ul 05/20/2016 Cbc With Differential Ord2 Baso% 0.4 % 05/20/2016 Cbc With Differential Ord2 RDW 15.7 % 05/20/2016 Cbc With Differential Ord2 Neut ABS# 3.00 K/ul 05/20/2016 Cbc With Differential Ord2 Lymph ABS# 0.85 K/ul 05/20/2016 Cbc With Differential Ord2 [place] ABS# 0.6 K/ul 05/20/2016 Cbc With Differential [...] collection if refrigerated) 05/20/2016 Testosterone Free Direct [id number] FREE TESTOSTERONE 0.6 pg/mL 05/19/2016 Estradiol 754065 ESTRADI OL <5.0 pg/mL 05/16/2016 Comp Metabolic Csn633 NA 140 mEq/L 05/15/2016 Comp Metabolic Wrl167 K 3.8 mEq/L 05/15/2016 Comp Metabolic Ujb985 CL 106 mEq/L 05/15/2016 Comp Metabolic Tpq050 CO2 26.0 mEq/L 05/15/2016 Comp Metabolic Pkn160 AN ION GAP 12 05/15/2016 Comp Metabolic Uug324 GL UCOSE 77 mg/dL 05/15/2016 Comp Metabolic Kkx261 Cr eat 0.5 mg/dL 05/15/2016 Comp Metabolic Opv211 eG FR 144 ml/min/1.73m2 05/2016 Comp Metabolic Ofb444 BUN 18 mg/dL 05/15/2016 Comp Metabolic Vte064 B/ C Ratio 40.0 Ratio 05/15/2016 Comp Metabolic Eto583 CA LCIUM 8.8 mg/dL 05/15/2016 Comp Metabolic Gsd959 AL K PHOS 28 U/L 05/15/2016 Comp Metabolic Frd324 T(SGOT) 19 U/L 05/15/2016 Comp Metabolic Byr338 AL T(SGPT) 19 U/L 05/15/2016 Comp Metabolic Wre233 BI LI T 0.5 mg/dL 05/15/2016 Comp Metabolic Uxn053 AL BUMIN 3.6 g/dL 05/15/2016 Comp Metabolic Akt143 TP RO 5.6 g/dL 05/15/2016 Comp Metabolic Gwn485 GL OB 2.0 g/dL 05/15/2016 Comp Metabolic Oec819 A/ G Ratio 1.8 Ratio 05/15/2016 Comp Metabolic Cli919 Os mo 280 mOsmo 05/15/2016 Progesterone Tsi050 Prog 9.08 ng/mL 05/15/2016 Cbc With Differential [...] 29.9 pg 05/15/2016 Cbc With Differential Ord2 [place]% 14.1 % 05/15/2016 Cbc With Differential Ord2 [...] 1.42 K/ul 05/15/2016 Cbc With Differential Ord2 [place] ABS# 0.6 K/ul 05/15/2016 Cbc With Differential [...] U-VOL VOLUME SUFFICIENT (10mL) 05/15/2016 Urinalysis Ord28 U-Yeast NEGATIVE 05/15/2016 Urinalysis Ord28 U-Com None 05/15/2016 Testosterone Free Direct 590773 FREE TESTOSTERONE 0.2 pg/mL 05/09/2016 Estradiol 080495 ESTRADI OL <5.0 pg/mL 05/07/2016 Comp Metabolic Hhn927 NA 141 mEq/L 05/06/2016 Comp Metabolic Rfu906 K 3.6 mEq/L 05/06/2016 Comp Metabolic Qlk940 CL 107 mEq/L 05/06/2016 Comp Metabolic Ozk794 CO2 28.0 mEq/L 05/06/2016 Comp Metabolic Ymy623 AN ION GAP 10 05/06/2016 Comp Metabolic Vts451 GL UCOSE 138 mg/dL 05/06/2016 Comp Metabolic Ooz693 Cr eat 0.5 mg/dL 05/06/2016 Comp Metabolic Gqh761 eG FR 119 ml/min/1.73m2 04/10 Comp Metabolic Oni766 BUN 16 mg/dL 05/06/2016 Comp Metabolic Uve610 B/ C Ratio 30.2 Ratio 05/06/2016 Comp Metabolic Srx976 CA LCIUM 8.9 mg/dL 05/06/2016 Comp Metabolic Qmt749 AL K PHOS 29 U/L 05/06/2016 Comp Metabolic Guk195 T(SGOT) 20 U/L 05/06/2016 Comp Metabolic Skq011 AL T(SGPT) 21 U/L 05/06/2016 Comp Metabolic Cse290 BI LI T 0.4 mg/dL 05/06/2016 Comp Metabolic Hlu886 AL BUMIN 3.6 g/dL 05/06/2016 Comp Metabolic Xou382 TP RO 5.5 g/dL 05/06/2016 Comp Metabolic Tsu917 GL OB 1.9 g/dL 05/06/2016 Comp Metabolic Quo934 A/ G Ratio 1.9 Ratio 05/06/2016 Comp Metabolic Mrf412 Os mo 285 mOsmo 05/06/2016 Urinalysis Ord28 [...] hours from collection if refrigerated) 05/06/2016 Progesterone Dws345 Prog 0.98 ng/mL 05/06/2016 Cbc With Differential [...] 29.9 % 05/06/2016 Cbc With Differential Ord2 MCH 29.2 pg 05/06/2016 Cbc With Differential Ord2 [place]% 10.1 % 05/06/2016 Cbc With Differential Ord2 MCHC 32.4 pg 05/06/2016 Cbc With Differential Ord2 Eos% 3.9 % 05/06/2016 Cbc With Differential Ord2 PLT 255 K/ul 05/06/2016 Cbc With Differential Ord2 Baso% 0.8 % 05/06/2016 Cbc With Differential Ord2 RDW 15.7 % 05/06/2016 Cbc With Differential Ord2 Neut ABS# 2.15 K/ul 05/06/2016 Cbc With Differential Ord2 Lymph ABS# 1.16 K/ul 05/06/2016 Cbc With Differential Ord2 [place] ABS# 0.4 K/ul 05/06/2016 Cbc With Differential [...] 29.6 pg 04/29/2016 Cbc With Differential Ord2 [place]% 13.1 % 04/29/2016 Cbc With Differential Ord2 MCHC 33.2 pg 04/29/2016 Cbc With Differential Ord2 Eos% 4.0 % 04/29/2016 Cbc With Differential Ord2 PLT 253 K/ul 04/29/2016 Cbc With Differential Ord2 Baso% 0.8 % 04/29/2016 Cbc With Differential Ord2 RDW 15.5 % 04/29/2016 Cbc With Differential Ord2 Neut ABS# 1.84 K/ul 04/29/2016 Cbc With Differential Ord2 Lymph ABS# 1.42 K/ul 04/29/2016 Cbc With Differential Ord2 [place] ABS# 0.5 K/ul 04/29/2016 Cbc With Differential Ord2 Eos ABS# 0.2 K/ul 04/29/2016 Cbc With Differential Ord2 Baso ABS# 0.0 K/ul 04/29/2016 Comp Metabolic Dqm227 NA 141 mEq/L 04/29/2016 Comp Metabolic Gyh613 K 4.0 mEq/L 04/29/2016 Comp Metabolic Spt585 CL 108 mEq/L 04/29/2016 Comp Metabolic Uax366 CO2 27.0 mEq/L 04/29/2016 Comp Metabolic Vwt403 AN ION GAP 10 04/29/2016 Comp Metabolic Sef112 GL UCOSE 69 mg/dL 04/29/2016 Comp Metabolic Enm335 Cr eat 0.5 mg/dL 04/29/2016 Comp Metabolic Hau909 eG FR 122 ml/min/1.73m2 04/10 Comp Metabolic Xjw809 BUN 19 mg/dL 04/29/2016 Comp Metabolic Pnb138 B/ C Ratio 36.5 Ratio 04/29/2016 Comp Metabolic Fhu591 CA LCIUM 9.1 mg/dL 04/29/2016 Comp Metabolic Ajm555 AL K PHOS 31 U/L 04/29/2016 Comp Metabolic Ery582 T(SGOT) 20 U/L 04/29/2016 Comp Metabolic Fxb656 AL T(SGPT) 22 U/L 04/29/2016 Comp Metabolic Kfo166 BI LI T 0.6 mg/dL 04/29/2016 Comp Metabolic Qbi367 AL BUMIN 3.8 g/dL 04/29/2016 Comp Metabolic Fhv375 TP RO 5.9 g/dL 04/29/2016 Comp Metabolic Wpr701 GL OB 2.1 g/dL 04/29/2016 Comp Metabolic Vib947 A/ G Ratio 1.8 Ratio 04/29/2016 Comp Metabolic Ugd760 Os mo 282 mOsmo 04/29/2016 Progesterone Wcg949 Prog 5.99 ng/mL 04/29/2016 Urinalysis Ord28 U-Color [...] from collection if refrigerated) 04/25/2016 Comp Metabolic Ncu762 NA 138 mEq/L 04/25/2016 Comp Metabolic Yuy505 K 3.6 mEq/L 04/25/2016 Comp Metabolic Ocm080 CL 105 mEq/L 04/25/2016 Comp Metabolic Cds115 CO2 27.0 mEq/L 04/25/2016 Comp Metabolic Zlr367 AN ION GAP 10 04/25/2016 Comp Metabolic Ipn237 GL UCOSE 190 mg/dL 04/25/2016 Comp Metabolic Ikz125 Cr eat 0.5 mg/dL 04/25/2016 Comp Metabolic Eut193 eG FR 128 ml/min/1.73m2 04/09 Comp Metabolic Ezl355 BUN 17 mg/dL 04/25/2016 Comp Metabolic Epu061 B/ C Ratio 34.0 Ratio 04/25/2016 Comp Metabolic Vet785 CA LCIUM 8.7 mg/dL 04/25/2016 Comp Metabolic Uav128 AL K PHOS 32 U/L 04/25/2016 Comp Metabolic Apf712 T(SGOT) 23 U/L 04/25/2016 Comp Metabolic Agc884 AL T(SGPT) 22 U/L 04/25/2016 Comp Metabolic Ozj070 BI LI T 0.5 mg/dL 04/25/2016 Comp Metabolic Jeo259 AL BUMIN 3.6 g/dL 04/25/2016 Comp Metabolic Eum836 TP RO 5.5 g/dL 04/25/2016 Comp Metabolic Asw953 GL OB 1.9 g/dL 04/25/2016 Comp Metabolic Omy925 A/ G Ratio 1.9 Ratio 04/25/2016 Comp Metabolic Keg950 Os mo 282 mOsmo 04/25/2016 Cbc With [...] 29.6 pg 04/25/2016 Cbc With Differential Ord2 [place]% 13.0 % 04/25/2016 Cbc With Differential Ord2 [...] 1.01 K/ul 04/25/2016 Cbc With Differential Ord2 [place] ABS# 0.4 K/ul 04/25/2016 Cbc With Differential [...] 29.2 pg 04/04/2016 Cbc With Differential Ord2 [place]% 16.1 % 04/04/2016 Cbc With Differential Ord2 MCHC 32.9 pg 04/04/2016 Cbc With Differential Ord2 Eos% 3.0 % 04/04/2016 Cbc With Differential Ord2 PLT 235 K/ul 04/04/2016 Cbc With Differential Ord2 Baso% 0.2 % 04/04/2016 Cbc With Differential Ord2 RDW 14.7 % 04/04/2016 Cbc With Differential Ord2 Neut ABS# 2.74 K/ul 04/04/2016 Cbc With Differential Ord2 Lymph ABS# 1.32 K/ul 04/04/2016 Cbc With Differential Ord2 [place] ABS# 0.8 K/ul 04/04/2016 Cbc With Differential Ord2 Eos ABS# 0.2 K/ul 04/04/2016 Cbc With Differential Ord2 Baso ABS# 0.0 K/ul 04/04/2016 Comp Metabolic Tmd258 NA 140 mEq/L 04/04/2016 Comp Metabolic Lpu292 K 4.1 mEq/L 04/04/2016 Comp Metabolic Axi688 CL 106 mEq/L 04/04/2016 Comp Metabolic Nqa416 CO2 27.0 mEq/L 04/04/2016 Comp Metabolic Pnd525 AN ION GAP 11 04/04/2016 Comp Metabolic Gzh718 GL UCOSE 71 mg/dL 04/04/2016 Comp Metabolic Plm502 Cr eat 0.5 mg/dL 04/04/2016 Comp Metabolic Byu809 eG FR 131 ml/min/1.73m2 03/10 Comp Metabolic Puh376 BUN 14 mg/dL 04/04/2016 Comp Metabolic Gcz373 B/ C Ratio 28.6 Ratio 04/04/2016 Comp Metabolic Sun655 CA LCIUM 9.1 mg/dL 04/04/2016 Comp Metabolic Bcc006 AL K PHOS 42 U/L 04/04/2016 Comp Metabolic Gqs507 T(SGOT) 18 U/L 04/04/2016 Comp Metabolic Zck822 AL T(SGPT) 17 U/L 04/04/2016 Comp Metabolic Zqq928 BI LI T 0.4 mg/dL 04/04/2016 Comp Metabolic Xcp783 AL BUMIN 3.8 g/dL 04/04/2016 Comp Metabolic Axq347 TP RO 6.0 g/dL 04/04/2016 Comp Metabolic Stz852 GL OB 2.2 g/dL 04/04/2016 Comp Metabolic Wmx430 A/ G Ratio 1.7 Ratio 04/04/2016 Comp Metabolic Khq354 Os mo 278 mOsmo 04/04/2016 Urinalysis Ord28 [...] U-VOL VOLUME SUFFICIENT (10mL) 04/04/2016 Urinalysis Ord28 U-Yeast NEGATIVE 04/04/2016 Urinalysis Ord28 U-Com Urine saved if culture needed (specimen acceptable for 48 hours from collection if refrigerated) 04/04/2016 Cbc With Differential Ord2 WBC 3.43 K/ul 03/28/2016 Cbc With Differential Ord2 RBC 4.02 M/ul 03/28/2016 Cbc With Differential Ord2 HGB 11.9 g/dl 03/28/2016 Cbc With Differential Ord2 HCT 35.8 % 03/28/2016 Cbc With Differential Ord2 Neut% 51.0 % 03/28/2016 Cbc With Differential Ord2 MCV 89.1 fl 03/28/2016 Cbc With Differential Ord2 Lymph% 33.2 % 03/28/2016 Cbc With Differential Ord2 MCH 29.6 pg 03/28/2016 Cbc With Differential Ord2 [place]% 11.7 % 03/28/2016 Cbc With Differential Ord2 MCHC 33.2 pg 03/28/2016 Cbc With Differential Ord2 Eos% 3.8 % 03/28/2016 Cbc With Differential Ord2 PLT 207 K/ul 03/28/2016 Cbc With Differential Ord2 Baso% 0.3 % 03/28/2016 Cbc With Differential Ord2 RDW 14.6 % 03/28/2016 Cbc With Differential Ord2 Neut ABS# 1.75 K/ul 03/28/2016 Cbc With Differential Ord2 Lymph ABS# 1.14 K/ul 03/28/2016 Cbc With Differential Ord2 [place] ABS# 0.4 K/ul 03/28/2016 Cbc With Differential Ord2 Eos ABS# 0.1 K/ul 03/28/2016 Cbc With Differential Ord2 Baso ABS# 0.0 K/ul 03/28/2016 Cbc With Differential Ord2 New Analyzer Notice Please note new ref ranges s tarting 11-21-2015 due to implemntation of new five part differential hematolgy analyzer. 03/28/2016 Comp Metabolic Hfh886 NA 137 mEq/L 03/28/2016 Comp Metabolic Pwk374 K 3.5 mEq/L 03/28/2016 Comp Metabolic Zkz453 CL 105 mEq/L 03/28/2016 Comp Metabolic Ntg955 CO2 27.0 mEq/L 03/28/2016 Comp Metabolic Imx292 AN ION GAP 9 03/28/2016 Comp Metabolic Eig255 GL UCOSE 174 mg/dL 03/28/2016 Comp Metabolic Pux397 Cr eat 0.5 mg/dL 03/28/2016 Comp Metabolic Qim074 eG FR 131 ml/min/1.73m2 03/10 Comp Metabolic Iur646 BUN 13 mg/dL 03/28/2016 Comp Metabolic Yav726 B/ C Ratio 26.5 Ratio 03/28/2016 Comp Metabolic Bli159 CA LCIUM 8.7 mg/dL 03/28/2016 Comp Metabolic Esi861 AL K PHOS 31 U/L 03/28/2016 Comp Metabolic Vwb994 T(SGOT) 20 U/L 03/28/2016 Comp Metabolic Ytq846 AL T(SGPT) 19 U/L 03/28/2016 Comp Metabolic Lan185 BI LI T 0.4 mg/dL 03/28/2016 Comp Metabolic Ghr488 AL BUMIN 3.5 g/dL 03/28/2016 Comp Metabolic Ruv009 TP RO 5.3 g/dL 03/28/2016 Comp Metabolic Nlh901 GL OB 1.8 g/dL 03/28/2016 Comp Metabolic Gdd402 A/ G Ratio 2.0 Ratio 03/28/2016 Comp Metabolic Xiv198 Os mo 278 mOsmo 03/28/2016 Urinalysis Ord28 [...] None per/HPF 6 Urinalysis Ord28 U-Mucus None 03/28/2016 Urinalysis Ord28 U-Renal tubular epi None 03/28/2016 Urinalysis Ord28 U-RBC None per/HPF 03/28/2016 Urinalysis Ord28 U-Trans itional epi None per/HPF 6 Urinalysis Ord28 U-WBC None per/HPF 03/28/2016 Urinalysis Ord28 U-Cast None per/HPF 03/28/2016 Urinalysis Ord28 U-VOL VOLUME SUFFICIENT (10mL) 03/28/2016 Urinalysis Ord28 U-Yeast NEGATIVE 03/28/2016 Urinalysis Ord28 U-Com Urine saved if culture needed (specimen acceptable for 48 hours from collection if refrigerated) 03/28/2016 Testosterone Free Direct [id number] FREE TESTOSTERONE <0.2 pg/mL 03/13/2016 Estradiol 109354 ESTRADI OL <5.0 pg/mL 03/12/2016 Progesterone Orm947 Prog 0.56 ng/mL 03/10/2016 Homocyst(E)Ine Plasma 924237 HOMOCYSTEINE, TOTAL 10.9 umol/L 01/18/2016 Mthfr 195764 MTHFR C677T: HETEROZYGOUS MUTATION DETECTED 02/2016 Mthfr 979124 MTHFR A1298 C: HETEROZYGOUS MUTATION DETECTED 01/11/2016 Mthfr 488148 INTERPRETAT ION: 01/11/2016 Iodine Serum 974172 IOD INE, SERUM 131.0 ug/L 01/10/2016 Tsh Ord6 hTSH II 2.11 uIU/mL 01/07/2016 Comp Metabolic Heu962 NA 139 mEq/L 01/07/2016 Comp Metabolic Zrs977 K 4.0 mEq/L 01/07/2016 Comp Metabolic Oot542 CL 104 mEq/L 01/07/2016 Comp Metabolic Bag613 CO2 26.0 mEq/L 01/07/2016 Comp Metabolic Hoj116 AN ION GAP 13 01/07/2016 Comp Metabolic Xpk383 GL UCOSE 86 mg/dL 01/07/2016 Comp Metabolic Qff573 Cr eat 0.6 mg/dL 01/07/2016 Comp Metabolic Fij591 eG FR 100 ml/min/1.73m2 12/11 Comp Metabolic Soi374 BUN 18 mg/dL 01/07/2016 Comp Metabolic Ypf309 B/ C Ratio 29.0 Ratio 01/07/2016 Comp Metabolic Wnf350 CA LCIUM 9.4 mg/dL 01/07/2016 Comp Metabolic Muz514 AL K PHOS 40 U/L 01/07/2016 Comp Metabolic Kyq144 T(SGOT) 20 U/L 01/07/2016 Comp Metabolic Mod375 AL T(SGPT) 24 U/L 01/07/2016 Comp Metabolic Ndv474 BI LI T 0.6 mg/dL 01/07/2016 Comp Metabolic Czs469 AL BUMIN 4.1 g/dL 01/07/2016 Comp Metabolic Wew008 TP RO 6.4 g/dL 01/07/2016 Comp Metabolic Mki304 GL OB 2.3 g/dL 01/07/2016 Comp Metabolic Dil673 A/ G Ratio 1.8 Ratio 01/07/2016 Comp Metabolic Xjx966 Os mo 279 mOsmo 01/07/2016 Lipid Ord30 CHOL 204 mg/dL 01/07/2016 Lipid Ord30 HDL 86.0 mg/dl 01/07/2016 Lipid Ord30 TRIG 104 mg/dL 01/07/2016 Lipid Ord30 LDL 97 mg/dL 01/07/2016 Lipid Ord30 C/HDL 2.4 Ratio 01/07/2016 Urine Culture Ucult Prel iminary No Growth Day 1 11/28 Urine Culture Ucult Comp lete No Growth Day 2 11/28 Urinalysis Ord28 U-Color Yellow 11/26/2015 Urinalysis [...] Ord28 U-Com Culture to follow 11/26/2015 Progesterone Ahu631 Prog >40.00 ng/mL 11/26/2015 Testosterone Free Direct [id number] FREE TESTOSTERONE 0.6 pg/mL 10/01/2015 Estradiol 404632 ESTRADI OL <5.0 pg/mL 09/26/2015 Urinalysis Ord28 [...] U-VOL VOLUME SUFFICIENT (10mL) 09/25/2015 Urinalysis Ord28 U-Com Urine saved if culture needed (specimen acceptable for 48 hours from collection if refrigerated) 09/25/2015 Urinalysis Ord28 U-Yeast NEGATIVE 09/25/2015 Comp Metabolic Gns667 NA 142 mEq/L 09/25/2015 Comp Metabolic Xjl178 K 4.3 mEq/L 09/25/2015 Comp Metabolic Ded497 CL 110 mEq/L 09/25/2015 Comp Metabolic Bnn843 CO2 23.0 mEq/L 09/25/2015 Comp Metabolic Tat345 AN ION GAP 13 09/25/2015 Comp Metabolic Mfm334 GL UCOSE 76 mg/dL 09/25/2015 Comp Metabolic Ycw392 Cr eat 0.8 mg/dL 09/25/2015 Comp Metabolic Zuw805 eG FR 79 ml/min/1.73m2 09/25 Comp Metabolic Yng314 BUN 17 mg/dL 09/25/2015 Comp Metabolic Wrg816 B/ C Ratio 22.4 Ratio 09/25/2015 Comp Metabolic Dms787 CA LCIUM 9.4 mg/dL 09/25/2015 Comp Metabolic Qvi676 AL K PHOS 45 U/L 09/25/2015 Comp Metabolic Avl905 T(SGOT) 20 U/L 09/25/2015 Comp Metabolic Lar827 AL T(SGPT) 18 U/L 09/25/2015 Comp Metabolic Awq820 BI LI T 0.5 mg/dL 09/25/2015 Comp Metabolic Qvr706 AL BUMIN 4.0 g/dL 09/25/2015 Comp Metabolic Joy468 TP RO 6.2 g/dL 09/25/2015 Comp Metabolic Yef795 GL OB 2.2 g/dL 09/25/2015 Comp Metabolic Tdu605 A/ G Ratio 1.8 Ratio 09/25/2015 Comp Metabolic Kvd224 Os mo 283 mOsmo 09/25/2015 Tsh Ord6 hTSH II 4.05 uIU/mL 09/25/2015 Progesterone Ggb806 Prog 21.38 ng/mL 09/25/2015 Free T4 Whg802 FREE T4 0.78 ng/dL 09/25/2015 Cbc With [...] RDW 14.3 % 09/25/2015 Testosterone Free Direct [id number] FREE TESTOSTERONE 1.2 pg/mL 08/31/2015 Estradiol 476035 ESTRADI OL <5.0 pg/mL 08/29/2015 Progesterone Zod630 Prog 4.37 ng/mL 08/28/2015 Fungal Screen I 385221 * *ASPERGILLUS AB BY ID . 07/23/2015 Fungal Screen I 680796 A SPERGILLUS AB BY ID None Detected 015 Fungal Screen I 227504 * *BLASTOMYCES ANTIBODY BY CF & ID . 07/23/2015 Fungal Screen I 567187 B LASTOMYCES AB,CF <1:8 07/23/2015 Fungal Screen I 835347 B LASTOMYCES AB,ID None Detected 015 Fungal Screen I 633169 * *MAXINE ANTIBODY BY ID . 07/23/2015 Fungal Screen I 674500 C ANDIDA AB BY ID Detected 07/23/2015 Fungal Screen I 610850 * *COCCIDIOIDES ANTIBODIES, IGG & IGM . 07/23/2015 Fungal Screen I 091020 C OCCIDIOIDES AB IGM 0.3 IV 07/23/2015 Fungal Screen I 593479 C OCCIDIOIDES AB IGG 0.4 IV 07/23/2015 Fungal Screen I 344584 * *HISTOPLASMA ANTIBODY BY ID . 07/23/2015 Fungal Screen I 465112 H ISTOPLASMA ABS (ID) None Detected 015 Francisella Tularensis Abs 345197 F. TULARENSIS, IGG 0 U/mL 07/17/2015 Francisella Tularensis Abs 071996 F. TULARENSIS, IGM 0 U/mL 07/17/2015 Vitamin D 25 Oh Wdd7617 VITAMIN D, 25 HYDROXY 142.21 ng/mL 07/13/2015 Antistrptolysin-O Qualitative Nam059 ASO Negative 07/12/2015 B12 Yki302 B12 956.00 pg/ml 07/12/2015 Cbc With Differential [...] Ord2 RDW 15.1 % 07/10/2015 Free T4 Qsr469 FREE T4 0.79 ng/dL 06/12/2015 Urinalysis Ord28 [...] Ord2 RDW 16.0 % 06/04/2015 Comp Metabolic Dnx958 NA 139 mEq/L 06/04/2015 Comp Metabolic Pgx024 K 3.9 mEq/L 06/04/2015 Comp Metabolic Nsg904 CL 108 mEq/L 06/04/2015 Comp Metabolic Cwh625 CO2 26.0 mEq/L 06/04/2015 Comp Metabolic Mlk110 AN ION GAP 9 06/04/2015 Comp Metabolic Yzm206 GL UCOSE 74 mg/dL 06/04/2015 Comp Metabolic Ipo858 Cr eat 0.6 mg/dL 06/04/2015 Comp Metabolic Vmz433 eG FR 102 ml/min/1.73m2 05/10 Comp Metabolic Uxc518 BUN 18 mg/dL 06/04/2015 Comp Metabolic Qtf571 B/ C Ratio 29.5 Ratio 06/04/2015 Comp Metabolic Myl863 CA LCIUM 9.0 mg/dL 06/04/2015 Comp Metabolic Ysw146 AL K PHOS 44 U/L 06/04/2015 Comp Metabolic Zvy203 T(SGOT) 22 U/L 06/04/2015 Comp Metabolic Ela024 AL T(SGPT) 23 U/L 06/04/2015 Comp Metabolic Pct169 BI LI T 0.4 mg/dL 06/04/2015 Comp Metabolic Xgl801 AL BUMIN 4.0 g/dL 06/04/2015 Comp Metabolic Owc409 TP RO 5.8 g/dL 06/04/2015 Comp Metabolic Tuk924 GL OB 1.8 g/dL 06/04/2015 Comp Metabolic Hpg494 A/ G Ratio 2.2 Ratio 06/04/2015 Comp Metabolic Vbv422 Os mo 278 mOsmo 06/04/2015 Tsh Ord6 [...] 12/13/2016 Psychiatric depression 1 12/13/2016 Neurologic headache 12/0 02/2017 Constitutional No recent illness 08/06/2017 Constitutional [...] 4: G0439 03/11/2016 THER/PROPH/DIAG INJ SC/IM CPT-4: 90091 12/27/2015 Vital Signs Date Vital 05/25/2019 Blood Pressure 1: 116/66 Code: 8480-6 BMI: 20.7 Code: 44010-3 Heart Rate 1: 70 bpm Height: 5' SpO2: 98% Weight: 106 lbs 05/19/2019 Blood Pressure 1: 128/68 Code: 8480-6 BMI: 20.3 Code: 49982-4 Heart Rate 1: 64 bpm Height: 5' SpO2: 98% Weight: 104 lbs 01/24/2019 Blood Pressure 1: 140/78 Code: 8480-6 BMI: 19.9 Code: 56026-6 Heart Rate 1: 84 bpm Height: 5' SpO2: 95% Weight: 102 lbs 01/10/2019 Blood Pressure 1: 126/62 Code: 8480-6 BMI: 19.9 Code: 33071-5 Heart Rate 1: 90 bpm Height: 5' SpO2: 94% Temperature: 36.6 (C ) / 97.8 (F) Weight: 102 lbs 11/25/2018 Blood Pressure 1: 128/74 Code: 8480-6 BMI: 19.7 Code: 07891-1 Heart Rate 1: 86 bpm Height: 5' SpO2: 97% Weight: 101 lbs 09/15/2018 Blood Pressure 1: 130/70 Code: 8480-6 BMI: 20.6 Code: 50331-9 Heart Rate 1: 75 bpm Height: 5' SpO2: 99% Weight: 105 lbs 8 oz 09/10/2018 Blood Pressure 1: 126/68 Code: 8480-6 BMI: 20.7 Code: 22073-6 Heart Rate 1: 63 bpm Height: 5' SpO2: 96% Waist Measure (cm): 66 cm Weight: 106 lbs 06/01/2018 Blood Pressure 1: 156/76 Code: 8480-6 BMI: 20.1 Code: 52713-5 Heart Rate 1: 68 bpm Height: 5' SpO2: 99% Weight: 103 lbs 05/24/2018 Blood Pressure 1: 120/60 Code: 8480-6 BMI: 20.5 Code: 45721-3 Heart Rate 1: 82 bpm Height: 5' SpO2: 98% Weight: 105 lbs 05/19/2018 Blood Pressure 1: 140/72 Code: 8480-6 BMI: 20.5 Code: 05072-0 Heart Rate 1: 96 bpm Height: 5' SpO2: 98% Weight: 105 lbs 01/12/2018 Blood Pressure 1: 146/78 Code: 8480-6 BMI: 21.1 Code: 35734-6 Heart Rate 1: 85 bpm Height: 5' SpO2: 95% Weight: 108 lbs 10/12/2017 Blood Pressure 1: 138/72 Code: 8480-6 BMI: 21.1 Code: 22080-3 Heart Rate 1: 96 bpm Height: 5' SpO2: 98% Weight: 108 lbs 08/06/2017 Blood Pressure 1: 130/78 Code: 8480-6 BMI: 20.5 Code: 30668-2 Heart Rate 1: 89 bpm Height: 5' SpO2: 98% Weight: 105 lbs 05/13/2017 Blood Pressure 1: 122/70 Code: 8480-6 BMI: 20.5 Code: 53052-1 Heart Rate 1: 80 bpm Height: 5' SpO2: 97% Weight: 105 lbs 03/19/2017 Blood Pressure 1: 138/80 Code: 8480-6 BMI: 20.5 Code: 14280-9 Heart Rate 1: 83 bpm Height: 5' SpO2: 97% Waist Measure (cm): 74 cm Weight: 105 lbs 03/18/2017 Blood Pressure 1: 138/80 Code: 8480-6 BMI: 20.5 Code: 08137-3 Heart Rate 1: 83 bpm Height: 5' SpO2: 97% Weight: 105 lbs 01/27/2017 Blood Pressure 1: 142/68 Code: 8480-6 BMI: 20.5 Code: 92293-2 Heart Rate 1: 69 bpm Height: 5' SpO2: 97% Weight: 105 lbs 12/29/2016 Blood Pressure 1: 154/82 Code: 8480-6 BMI: 20.1 Code: 28171-7 Heart Rate 1: 76 bpm Height: 5' SpO2: 94% Temperature: 37.4 (C ) / 99.4 (F) Weight: 103 lbs 11/19/2016 Blood Pressure 1: 134/74 Code: 8480-6 BMI: 19.7 Code: 74806-7 Heart Rate 1: 64 bpm Height: 5' Weight: 101 lbs 08/13/2016 Blood Pressure 1: 118/56 Code: 8480-6 BMI: 19.5 Code: 25796-7 Heart Rate 1: 64 bpm Height: 5' SpO2: 97% Weight: 100 lbs 07/03/2016 Blood Pressure 1: 120/68 Code: 8480-6 BMI: 19.1 Code: 42602-5 Heart Rate 1: 80 bpm Height: 5' SpO2: 98% Weight: 98 lbs 05/07/2016 Blood Pressure 1: 116/58 Code: 8480-6 BMI: 19.1 Code: 50173-8 Heart Rate 1: 79 bpm Height: 5' SpO2: 98% Weight: 98 lbs 04/08/2016 Blood Pressure 1: 118/58 Code: 8480-6 BMI: 19.0 Code: 19785-5 Heart Rate 1: 78 bpm Height: 5' SpO2: 98% Weight: 97 lbs 8 oz 03/11/2016 Blood Pressure 1: 102/60 Code: 8480-6 BMI: 19.7 Code: 46059-9 Heart Rate 1: 75 bpm Height: 5' SpO2: 94% Waist Measure (cm): 71 cm Weight: 101 lbs 12/27/2015 Blood Pressure 1: 128/72 Code: 8480-6 BMI: 20.2 Code: 59491-3 Heart Rate 1: 95 bpm Height: 5' SpO2: 98% Weight: 103 lbs 8 oz 09/24/2015 Blood Pressure 1: 136/70 Code: 8480-6 BMI: 19.1 Code: 46611-0 Heart Rate 1: 72 bpm Height: 5' SpO2: 97% Weight: 98 lbs 06/26/2015 Blood Pressure 1: 144/64 Code: 8480-6 BMI: 18.9 Code: 34091-8 Heart Rate 1: 77 bpm Height: 5' SpO2: 98% Weight: 97 lbs 04/10/2015 Blood Pressure 1: 132/88 Code: 8480-6 BMI: 18.9 Code: 13573-7 Heart Rate 1: 83 bpm Height: 5' [...] Episodes daily 01/24/2019 None Location in the [facility] area 01/24/2019 None Onset and Resolution o ngoing [...] Alleviating Factors medication 09/15/2018 None hypothyroid Quality mounting inspector deisy 09/15/2018 None hypothyroid Onset and Resolution [...] Alleviating Factors medication 05/19/2018 None hypothyroid Quality mounting inspector deisy 05/19/2018 None hypertension Quality tari kebede [...] Encounters Encounter Performer Loca tion Codes Date ([id number]) 58328 EST. P ATIENT, LEVEL IV Diagnosis: Essential (primary) hypertension[ICD10: I10] Diagnosis: Atrophy of thyroid (acquired)[ICD10: E03.4] Kailee Moreira MD, [facility] CPT-4: 01131 05/25/2019 [id number] EST. PATIENT, LEVEL II Diagnosis: Allergic contact dermatitis due to plants, except food[ICD10: L23.7] Marixa Moreira MD, [facility] CPT-4: 34279 05/19/2019 ([id number]) 55978 EST. P ATIENT, LEVEL IV Diagnosis: Essential (primary) hypertension[ICD10: I10] Diagnosis: Headache[ICD10: R51] Diagnosis: Atrophy of thyroid (acquired)[ICD10: E03.4] Diagnosis: Other forms of dyspnea[ICD10: R06.09] Kailee Moreira MD, [facility] CPT-4: 95981 01/24/2019 ([id number]) 33697 EST. P ATIENT, LEVEL III Diagnosis: Headache[ICD10: R51] Diagnosis: Nasal congestion[ICD10: R09.81] Marixa Moreira MD, [facility] CPT- 4: 31360 01/10/2019 ([id number]) 56613 EST. 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 P ATIENT, LEVEL IV Diagnosis: Essential (primary) hypertension[ICD10: I10] Diagnosis: Atrophy of thyroid (acquired)[ICD10: E03.4] Diagnosis: Low back pain[ICD10: M54.5] Diagnosis: Other specified noninflammatory disorders of vagina[ICD10: N89.8] Kailee Moreira MD, [facility] CPT-4: 22718 09/15/2018 ([id number]) 80479 EST. P ATIENT, LEVEL III Diagnosis: Dizziness and giddiness[ICD10: R42] Diagnosis: Allergic contact dermatitis due to plants, except food[ICD10: L23.7] Marixa Moreira MD, [facility] CPT-4: 15967 06/01/2018 ([id number]) 19169 EST. P ATIENT, LEVEL III Diagnosis: Allergic contact dermatitis due to plants, except food[ICD10: L23.7] Marixa Moreira MD, [facility] CPT-4: 86959 05/24/2018 ([id number]) 09673 EST. P ATIENT, LEVEL IV Diagnosis: Essential (primary) hypertension[ICD10: I10] Diagnosis: Atrophy of thyroid (acquired)[ICD10: E03.4] Diagnosis: Obstructive sleep apnea (adult) (pediatric)[ICD10: G47.33] Kailee Moreira MD, [facility] CPT-4: 34257 05/19/2018 ([id number]) 98263 EST. P ATIENT, LEVEL IV Diagnosis: Essential (primary) hypertension[ICD10: I10] Diagnosis: Atrophy of thyroid (acquired)[ICD10: E03.4] Diagnosis: Low back pain[ICD10: M54.5] Kailee Moreira MD, [facility] CPT-4: 85628 01/12/2018 ([id number]) 92837 EST. P ATIENT, LEVEL III Diagnosis: Headache[ICD10: R51] Kailee Moreira MD, [facility] CPT-4: 70391 10/12/2017 ([id number]) 96338 EST. P ATIENT, LEVEL IV Diagnosis: Atrophy of thyroid (acquired)[ICD10: E03.4] Diagnosis: Essential (primary) hypertension[ICD10: I10] Diagnosis: Obstructive sleep apnea (adult) (pediatric)[ICD10: G47.33] Kailee Moreira MD, [facility] CPT-4: 54494 08/06/2017 ([id number]) 62733 EST. 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 P ATIENT, LEVEL IV Diagnosis: Atrophy of thyroid (acquired)[ICD10: E03.4] Diagnosis: Essential (primary) hypertension[ICD10: I10] Diagnosis: Encounter for screening for other musculoskeletal disorder[ICD10: Z13.828] Diagnosis: Low back pain[ICD10: M54.5] Diagnosis: Transient alteration of awareness[ICD10: R40.4] Kailee Moreira MD, [facility] CPT-4: 86830 03/18/2017 ([id number]) 95210 EST. P ATIENT, LEVEL IV Diagnosis: Atrophy of thyroid (acquired)[ICD10: E03.4] Diagnosis: Essential (primary) hypertension[ICD10: I10] Diagnosis: Low back pain[ICD10: M54.5] Kailee Moreira MD, [facility] CPT-4: 55490 01/27/2017 ([id number]) 54243 EST. P ATIENT, LEVEL III Diagnosis: Acute recurrent maxillary sinusitis[ICD10: J01.01] Marixa Moreira MD, [facility] CPT-4: 97366 12/29/2016 ([id number]) 01658 EST. P ATIENT, LEVEL IV Diagnosis: Atrophy of thyroid (acquired)[ICD10: E03.4] Diagnosis: Essential (primary) hypertension[ICD10: I10] Kailee Moreira MD, [facility] CPT-4: 81135 11/19/2016 ([id number]) [id number] EST. P ATIENT, LEVEL IV Diagnosis: Atrophy of thyroid (acquired)[ICD10: E03.4] Diagnosis: Enterocolitis due to Clostridium difficile[ICD10: A04.7] Diagnosis: Essential (primary) hypertension[ICD10: I10] Kailee Moreira MD, [facility] CPT-4: 42607 08/13/2016 ([id number]) 96816 EST. P ATIENT, LEVEL IV Diagnosis: Essential (primary) hypertension[ICD10: I10] Diagnosis: Enterocolitis due to Clostridium difficile[ICD10: A04.7] Diagnosis: Hypothyroidism, unspecified[ICD10: E03.9] Diagnosis: Low back pain[ICD10: M54.5] Kailee Moreira MD, [facility] CPT-4: 16084 07/03/2016 ([id number]) 96495 EST. P ATIENT, LEVEL IV Diagnosis: Enterocolitis due to Clostridium difficile[ICD10: A04.7] Diagnosis: Lyme disease, unspecified[ICD10: A69.20] Kailee Moreira MD, [facility] CPT-4: 98665 05/07/2016 ([id number]) 98353 EST. P ATIENT, LEVEL IV Diagnosis: Generalized abdominal rigidity[ICD10: R19.37] Diagnosis: Diarrhea, unspecified[ICD10: R19.7] Diagnosis: Lyme disease, unspecified[ICD10: A69.20] Kailee Moreira MD, [facility] CPT-4: 80921 04/08/2016 ([id number]) 91709 EST. P ATIENT, LEVEL IV Diagnosis: Hypothyroidism, unspecified[ICD10: E03.9] Diagnosis: Lyme disease, unspecified[ICD10: A69.20] Diagnosis: Tachycardia, unspecified[ICD10: R00.0] Kailee Moreira MD, [facility] CPT-4: 77008 12/27/2015 ([id number]) 03612 EST. P ATIENT, LEVEL III Diagnosis: Essential (primary) hypertension[ICD10: I10] Diagnosis: Benign lipomatous neoplasm of skin and subcutaneous tissue of other sites[ICD10: D17.39] Diagnosis: Low back pain[ICD10: M54.5] Kailee Moreira MD, [facility] CPT-4: 39028 09/24/2015 ([id number]) 95598 EST. 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 05/25/2019 Appointment: Kailee Moreira WPtel: [facility] (30 min) Complex 05/25/2019 Patient Education: Patient Medication Summary Completed 05/25/2019 Patient Education: Hypertension Completed 05/25/2019 Visit Plan: Poison Magalys - pt is to u se topical treatments as directed. Pt is cleanse clothing in hot water with soap, and call if symptoms do not improve or if they worsen. 05/19/2019 Appointment: Marixa Lakhani WPtel: [phone] [place] (10 min) Simple 05/19/2019 Patient Education: Patient Medication Summary Completed 05/19/2019 Appointment: Kailee Moreira WPtel: [facility] [place] (30 min) Complex 05/02/2019 Visit Plan: Hypertension [...] is changed. 01/24/2019 Appointment: Kailee Moreira WPtel: [phone] [facility] (30 min) Complex 01/24/2019 Patient Education: Patient Medication Summary Completed 01/24/2019 Patient Education: Hypertension Completed 01/24/2019 Appointment: Kailee Moreira WPtel: [facility] (15 min) Moderate 01/19/2019 Appointment: Nurse Visit 01/14/2019 Visit Plan: Headache -nasal congest ion-refill fioricet for prn use-kenalog injection today in the office -call if symptoms do not resolve or if any worse-patient verbalized understanding of plan. 01/10/2019 Appointment: Marixa Lakhani WPtel: [phone] [phone] [place] (15 min) Moderate 01/10/2019 Patient [...] at home. 11/25/2018 Appointment: [facility]el[phone] (15 min) Moderate 11/25/2018 Patient Education: Patient Medication Summary Completed 11/25/2018 Patient Education: Hypertension Completed 11/25/2018 Visit Plan: Hypertension - jorge lunsford - continue with current medications, continue with [...] the chiropractor. 09/15/2018 Appointment: Ka[facility]el[phone] 30 min appointments only in this [...] care surrogate. 09/10/2018 Appointment: Kiersten [facility]ando [facility]Ptel: [phone] [facility] - Annual Wellness Visit 09/10/2018 Patient Education: Patient Medication Summary Completed 09/10/2018 Appointment: Injection 06/14/2018 Visit Plan: Contact dermatitis-disc ussed with Dr Moreira -rx for dexamethasone sent to patient's pharmacy and instructed on use-will also send rx for topical betamethsone -instructed patient to call if symptoms do not resolve or if any worse Rptyagrvs-RWK-yalcappd fluids-monitor blood pressure- call if dizziness does not resolve or if any worse-patient and verbalized understanding 06/01/2018 Appointment: Marixa Lakhani WPtel: [phone] [phone] (15 min) Moderate 06/01/2018 Patient Education: Patient Medication Summary Completed 06/01/2018 Visit Plan: Contact dermatitis due to poison magalys/oak-kenalog injection today- pt is to use topical treatments as directed. Pt is cleanse clothing in hot water with soap, and call if symptoms do not improve or if they worsen. 05/24/2018 Appointment: Marixa Lakhani WPtel: [phone] [phone] (15 min) Moderate 05/24/2018 Patient Education: [...] when awakening. 05/19/2018 Appointment: Kailee Moreira WPtel: [phone] [facility] (30 min) Complex 05/19/2018 Patient Education: Patient [...] thighs bilaterally 01/12/2018 Appointment: Kailee Moreira WPtel: [phone] [facility] (15 min) Moderate 01/12/2018 Patient Education: Patient Medication Summary Completed 01/12/2018 Appointment: Kailee Moreira WPtel: [phone] [facility] [place] (15 min) Moderate 12/02/2017 Visit Plan: Headache - recommended patient to use PRN Fioricet for headaches - call if not improving. 10/12/2017 Appointment: Kailee Moreira WPtel: [facility]8 [facility] [place] (15 min) Moderate 10/12/2017 Patient Education: Patient [...] apnea - order humidification for cpap - [facility]- find out if they need [...] at home. 08/06/2017 Appointment: Kailee Moreira WPtel: [phone] [facility] [place] (15 min) Moderate 08/06/2017 Patient Education: Patient Medication Summary Completed 08/06/2017 Care Plan: Comp Metabolic Pending 08/06/2017 Care Plan: Tsh Pending 08/06/2017 Care Plan: Free T4 Pending 08/06/2017 Care Plan: Lipid Pending 08/06/2017 Care Plan: Cbc With Differential Pending 08/06/2017 Appointment: Kailee Moreira WPtel: [phone] [facility] (15 min) Moderate 07/21/2017 Visit Plan: Hypothyroidism [...] have nursing staff call dr. schaeffer about josefinakey appt Low blood pressure stop lisinopril. 05/13/2017 Appointment: Kailee Moreira WPtel: [phone] [facility]66[facility] (15 min) Moderate 05/13/2017 Patient Education: Patient Medication Summary Completed 05/13/2017 Patient Education: Hypertension Completed 05/13/2017 Appointment: Kailee Moreira WPtel: [phone] [facility] (15 min) Moderate 05/06/2017 Visit Plan: [...] for health care surrogate. 03/19/2017 Appointment: Kiersten Armnado WPtel: [phone] [facility] [facility] - Annual Wellness Visit 03/19/2017 Patient Education: [...] of control. p hysical therapy at [facility] - water therapy for back eeg - needs ordered at hospital. 03/18/2017 Appointment: Kailee Moreira WPtel: [phone] [facility] (15 min) Moderate 03/18/2017 Patient Education: Patient [...] not improve. 01/27/2017 Appointment: Kailee Moreira WPtel: [phone] [facility] (15 min) Moderate 01/27/2017 Patient Education: Patient Medication Summary Completed 01/27/2017 Patient Education: Hypertension Completed 01/27/2017 Visit Plan: Sinusitis - Pt has acut e infection - pain in face, maxillary region, Pt informed to use decongestant, RX given to patient, sinus rinses also recommended. Call if symptoms do not show improvement. 12/29/2016 Appointment: Marixa Lakhani WPtel: [phone] [phone] (30 min) Complex 12/29/2016 Patient Education: Patient [...] of control. 11/19/2016 Appointment: Kailee Moreira WPtel: [facility]5 [facility] (15 min) Moderate 11/19/2016 Patient Education: Patient [...] have improved. 08/13/2016 Appointment: Kailee Moreira WPtel: [phone] [facility] (15 min) Moderate 08/13/2016 Patient Education: Patient Medication Summary Completed 08/13/2016 Patient Education: Hypertension Completed 08/13/2016 Appointment: Kailee Moreira WPtel: [address] [facility] (30 min) Complex 07/31/2016 Visit Plan: Hypertension [...] of control. 07/03/2016 Appointment: Kailee Moreira WPtel: [address] [place] [address] (15 min) Moderate 07/03/2016 Patient Education: Patient Medication Summary Completed 07/03/2016 Patient Education: Hypertension Completed 07/03/2016 Visit Plan: Cdiff colitis - pt to h ave repeat testing - if positive will have to repeat treatment. Continue with probiotic. Lymes disease - continue with treatment per Dr. Carrillo. alex sample x 18 days given to patient. 05/07/2016 Appointment: Kailee Moreira WPtel: [address] [place], [place] [phone] (15 min) Moderate 05/07/2016 Patient Education: Patient Medication Summary Completed 05/07/2016 Visit Plan: Diarrhea - suspect the diarrhea is Cdiff related - check stool and treat with flagyl, probiotic to increase to three times daily - continue to hold iv antibiotic. Lyme disease - treating with iv antibiotics - on hold while she has diarrhea. 04/08/2016 Appointment: Kailee Moreira WPtel: [facility]1 [facility] (15 min) Moderate 04/08/2016 Patient Education: Patient Medication Summary Completed 04/08/2016 Appointment: Kailee Moreira WPtel: [facility]3 [place] [phone] [place] (15 min) Moderate 04/03/2016 Visit Plan: Medicare [...] Completed 03/11/2016 [facility]ment: [facility]el[phone] (15 min) Moderate 01/24/2016 Visit Plan: [...] control. 12/27/2015 Appointment: [facility]el[phone] (15 min) Moderate 12/27/2015 Patient Education: Patient Medication Summary Completed 12/27/2015 Visit Plan: Hypertension - well con trolled [...] not improve. 06/26/2015 Appointment: Kailee Moreira WPtel: [address] [place] [address] (15 min) Moderate 06/26/2015 Patient Education: Patient [...] spine Lymes disease-sees Dr Carrillo-lymes specialist in [place], [place] CAD-HX [id number] by Dr Hyde 04/10/2015 Appointment: (S) New [...] rested in the morning when awakening. . Medicare Exam - to day we [...] not improve after the supplement is changed. . Headache - recomme nded patient to use PRN Fioricet for headaches - call if not improving. . Diarrhea - suspect the diarrhea is Cdiff related - check stool and treat with flagyl, probiotic to increase to three times daily - continue to hold iv antibiotic. Lyme disease - treating with iv antibiotics - on hold while she has diarrhea. . Tachycardia - I mckenna ve attempted [...] months based on previous levels of control. use two old goats on back and [...] pain is worsening or does not improve. use two old goats on back and [...] is worsening or does not improve. . Contact dermatitis -discussed with Dr Moreira -rx for dexamethasone sent to patient's pharmacy and instructed on use-will also send rx for topical betamethsone -instructed patient to call if symptoms do not resolve or if any worse Efshkyuth-BSV-ufxsqntd fluids-monitor blood pressure-call if dizziness does not resolve or if any worse-patient and verbalized understanding . Hypothyroidism - p t with chronic hypothyroidism, continue with current medication, will monitor pt to signs or symptoms of lack of adequate supplementation. Pt is to continue with current dose of medication unless directed otherwise. Check labs at regular intervals wither q 3 months or q 6 months based on previous levels of control. Sleep apnea - order humidification for cpap - [place]- find out if they need [...] change in blood pressure readings at home. kenalog injection to day okay to refill fioricet nasal saline rinses call tomorrow if headache not better and we can send in a short course of steroids . Headache -nasal congestion-refill alana icet for prn use-kenalog injection today in the office -call if symptoms do not resolve or if any worse-patient verbalized understanding of plan. REPEAT MRI SPINE . Hypertension - well [...] spine Lymes disease-sees Dr Carrillo-lymes specialist in [place], [place] CAD-HX [id number] by Dr Hyde . Diarrhea - discuss ed with pt [...] in blood pressure readings at home. . Hypertension - wel l controlled - [...] gel to the lateral thighs bilaterally . Hypothyroidism - p t with chronic [...] previous levels of control. physical therapy at [facility] - water therapy for back eeg - needs ordered at hospital. . Medicare Exam - to day we [...] pain is worsening or does not improve. voltaren gel apply 2 grams to the [...] - pt to see the chiropractor. . Medicare Exam - to day we [...] antibiotic treatment plan, see scanned document. . Cdiff colitis - pt to have repeat testing - if positive will have to repeat treatment. Continue with probiotic. Lymes disease - continue with treatment per Dr. Carrillo. darlinglin sample x 18 days given to patient. . Poison Magalys - pt is to [...] have nursing staff call dr. schaeffer about sandras appt Low blood pressure stop lisinopril. DOXYCYCLINE 100MG TW ICE DAILY X 7 DAYS . Sinusitis - Pt has acute infection - p ain in face, maxillary region, Pt informed to use decongestant, RX given to patient, sinus rinses also recommended. Call if symptoms do not show improvement.
--- OUTSIDE RECORDS SUMMARY | 2020-05-05 11:47 | XMS REPORT | CCD ---
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 Name Role Phone PP Unavailable CCM Unavailable Summary Purpose Interface Exchange Insurance Providers Payer name Policy type / Coverage type Covered green party ID Effective Begin Date Effective End Date WPS Medicare Part B Medicare Part B [id number] Unknown [employer] Medicare Part B [id number] Unknown Family history Mother Diagnosis Age At [...] Retir ed 04/10/[address]: 426058440 Never smoker 04/10/[address]: 047696821 Never drinks alcohol 04/10/2015 Allergies, Adverse Reactions, [...] tabl ets in a dose pack RxNorm: 985015 1 Tablet(s) PO UD 05/19/2019 05/24/2019 In active 6-5-4-3-2-1 Prozac 10 mg capsule RxNorm: 756100 1 Capsule(s) PO daily 05/06/2019 09/02/2019 Active Prozac 10 mg capsule RxNorm: 339754 1 Capsule(s) PO daily 05/06/2019 05/05/2019 Inactive estradiol 0.01% (0.1 mg/gram) vaginal cream RxNorm: 156499 1 GRAM(S) VAG BIW 03/31/2019 03/24/2020 Ac tive estradiol 0.01% (0.1 mg/gram) vaginal cream RxNorm: 686843 1 GRAM(S) VAG BIW 02/21/2019 08/13/2020 Ac tive Ventolin HFA 90 mcg/ actuation aerosol inhaler RxNorm: 5286381 1 INH TID as needed dyspnea 01/24/2019 08/21/2019 Active Fioricet 50 mg-300 m g-40 mg capsule RxNorm: 8638982 1 Capsule(s) PO Q8 P RN as needed for headache 01/10/2019 No Stop Date Active dexamethasone 4 mg t ablet RxNorm: 749500 1 Tablet(s) PO daily 01/10/2019 01/09/2019 Inactive to be started on 3--19 Kenalog 40 mg/mL sadiq pension for injection RxNorm: 1997208 Milliliter(s) Inj 01/10/2019 01/10/2019 In active dexamethasone 4 mg t ablet RxNorm: 817145 1 Tablet(s) PO daily 01/10/2019 01/14/2019 Inactive to be started on 01-11-19 cyclobenzaprine 5 mg tablet RxNorm: 630363 1 Tablet(s) PO TID 12/14/2018 12/20/2018 Inactive cyclobenzaprine 5 mg tablet RxNorm: 463463 1 Tablet(s) PO TID 12/14/2018 12/13/2018 Inactive [place] Thyroid 90 mg tablet RxNorm: 576183 Tablet(s) 1/2 TABLET( S) PO DAILY 11/18/2018 02/10/2020 Ac tive [place] Thyroid 60 mg tablet RxNorm: 426181 1 Tablet(s) PO 3 x we jenise Dominguez 11/17/2018 11/17/2018 In active hold until she is ready to refill [place] Thyroid 30 mg tablet RxNorm: 980343 1 Tablet(s) PO 4 time s a week Thu SAT 11/17/2018 11/16/2018 Inactive Please fill now- she will use her curren t supply of 60mg until she needs refill [place] Thyroid 30 mg tablet RxNorm: 331779 1 Tablet(s) PO 4 time s a week Thu SAT 11/17/2018 11/17/2018 Inactive Please fill now- she will use her curren t supply of 60mg until she needs refill Flagyl 500 mg tablet RxNorm: 239761 1 Tablet(s) PO TID 2018 10/17/2018 Inactive Flagyl 500 mg tablet RxNorm: 789162 1 Tablet(s) PO TID 10/06/2018 10/05/2018 Inactive Flagyl 500 mg tablet RxNorm: 677663 1 Tablet(s) PO TID 10/06/2018 10/10/2018 Inactive cefdinir 300 mg capsule RxNorm: 091549 1 Capsule(s) PO BID 09/29/2018 10/05/2018 Inactive cefdinir 300 mg capsule RxNorm: 209844 1 Capsule(s) PO BID 09/29/2018 09/28/2018 Inactive estradiol 0.01% (0.1 mg/gram) vaginal cream RxNorm: 594329 1 Gram(s) VAG BIW 09/15/2018 02/20/2019 In active Imitrex 50 mg tablet RxNorm: 926216 TAKE WITH ONSET OF MIGRAINE- MAY TAKE AN ADDITIONAL DOSE IF NO RELIEF OF HEADACHE IN 1 HOUR- MAX OF 3 DOSES IN 24 HOURS Tablet(s) 06/14/2018 No Stop Date Active betamethasone gwendolyn te 0.1 % topical cream RxNorm: 227303 1 Application TOP TID 06/01/2018 06/10/2018 In active dexamethasone 4 mg t ablet RxNorm: 112515 1 Tablet(s) PO daily 06/01/2018 06/05/2018 Inactive Kenalog 40 mg/mL sadiq pension for injection RxNorm: 7067056 1.5 Milliliter(s) In j 05/24/2018 05/24/2018 In active amitriptyline 10 mg tablet RxNorm: 793931 1/2 TO 1 TABLET(S) PO QPM 01/21/2018 09/14/2018 Inactive [place] Thyroid 60 mg tablet RxNorm: 202732 1 Tablet(s) PO daily 01/12/2018 11/16/2018 Inactive carvedilol 3.125 mg tablet RxNorm: 903407 1 Tablet(s) PO BID 10/12/2017 No Stop Date Active Fiorinal-Codeine #3 30 mg-50 mg-325 mg-40 mg capsule RxNorm: 823400 1 Capsule(s) PO BID 10/12/2017 11/10/2017 Inactive progesterone microni zed 100 mg capsule RxNorm: 311010 1 Capsule(s) PO daily on days 1- 25 of each month 10/12/2017 01/11/2018 Inactive [place] Thyroid 90 mg tablet RxNorm: 613830 1/2 Tablet(s) PO melinda y 1/2 TABLET(S) PO DAILY 08/06/2017 01/11/2018 Inactive [place] Thyroid 90 mg tablet RxNorm: 490176 1/2 TABLET(S) PO DAILY 07/14/2017 08/05/2017 Inactive Keppra 500 mg tablet RxNorm: 888216 1 Tablet(s) PO BID 05/13/2017 08/05/2017 Inactive Deplin (algal oil) 1 5 mg-90.314 mg capsule RxNorm: TAKE ONE CAPSULE BY MOUTH O NE TIME DAILY 05/13/2017 01/11/2018 Inactive Keppra 250 mg tablet RxNorm: 805826 1 Tablet(s) PO daily 04/23/2017 04/22/2017 Inactive take 1 tab qd x 1 week then increase to BID Keppra 250 mg tablet RxNorm: 431679 1 Tablet(s) PO daily 04/23/2017 05/12/2017 Inactive take 1 tab qd x 1 week then increase to BID cyclobenzaprine 5 mg tablet RxNorm: 015300 1 Tablet(s) PO TID as needed 02/03/2017 02/22/2017 In active cyclobenzaprine 5 mg tablet RxNorm: 160131 1 Tablet(s) PO TID as needed 02/03/2017 02/02/2017 In active [place] Thyroid 90 mg tablet RxNorm: 707176 1/2 Tablet(s) PO daily 11/19/2016 03/18/2017 Inactive amitriptyline 10 mg tablet RxNorm: 931765 1/2 to 1 Tablet(s) PO QPM 11/19/2016 11/13/2017 Inactive fluconazole 50 mg ta blet RxNorm: 363484 1 Tablet(s) PO daily 08/20/2016 09/02/2016 Inactive [place] Thyroid 90 mg tablet RxNorm: 932154 1/2 Tablet(s) PO daily 08/11/2016 11/18/2016 Inactive Flagyl 500 mg tablet RxNorm: 589542 1 Tablet(s) PO TID 07/28/2016 01/11/2018 Inactive Flagyl 500 mg tablet RxNorm: 906752 1 Tablet(s) PO TID 07/17/2016 07/27/2016 Inactive amitriptyline 10 mg tablet RxNorm: 590334 1/2 to 1 Tablet(s) PO QPM 07/03/2016 10/30/2016 Inactive metronidazole 500 mg tablet RxNorm: 145469 1 Tablet(s) PO QID 07/03/2016 07/12/2016 Inactive amitriptyline 25 mg tablet RxNorm: 436623 1/2 -1 Tablet(s) PO Q HS as needed insomnia 06/26/2016 07/02/2016 Inactive vancomycin 125 mg ca psule RxNorm: 162570 1 Capsule(s) PO QID 06/20/2016 06/29/2016 Inactive [place] Thyroid 30 mg tablet RxNorm: 318979 1.5 Tablet(s) PO daily 06/20/2016 06/19/2016 Inactive [place] Thyroid 30 mg tablet RxNorm: 927873 1.5 Tablet(s) PO daily 06/20/2016 08/10/2016 Inactive fluconazole 50 mg ta blet RxNorm: 836820 1 Tablet(s) PO daily 06/16/2016 08/19/2016 Inactive amitriptyline 25 mg tablet RxNorm: 889780 1/2 -1 Tablet(s) PO Q HS as needed insomnia 06/12/2016 06/11/2016 Inactive amitriptyline 25 mg tablet RxNorm: 183654 1/2 -1 Tablet(s) PO Q HS as needed insomnia 06/12/2016 06/25/2016 Inactive vancomycin 125 mg ca psule RxNorm: 060209 1 Capsule(s) PO QID 06/12/2016 06/19/2016 Inactive fluconazole 50 mg ta blet RxNorm: 729763 1 Tablet(s) PO daily 06/12/2016 06/15/2016 Inactive Diflucan 150 mg tablet RxNorm: 103127 1 Tablet(s) PO daily 06/05/2016 06/09/2016 Inactive Deplin (algal oil) 1 5 mg-90.314 mg capsule RxNorm: 1 Capsule(s) PO daily 06/05/2016 06/04/2016 In active Diflucan 150 mg tablet RxNorm: 759220 1 Tablet(s) PO daily 06/05/2016 06/04/2016 Inactive Deplin (algal oil) 1 5 mg-90.314 mg capsule RxNorm: 1 Capsule(s) PO daily 06/05/2016 05/12/2017 In active nystatin 500,000 uni t tablet RxNorm: 654031 4 Tablet(s) PO daily 05/21/2016 09/17/2016 Inactive Vitamin D3 5,000 uni t tablet RxNorm: 998587 Tablet(s) PO daily 05/07/2016 No Stop Date Active nystatin 500,000 uni t tablet RxNorm: 144153 1 Tablet(s) PO Q4H 05/07/2016 05/20/2016 Inactive fluconazole 100 mg t ablet RxNorm: 179960 1 Tablet(s) PO daily 05/07/2016 06/11/2016 Inactive progesterone microni zed 100 mg capsule RxNorm: 894436 3 Capsule(s) PO daily on days 1- 25 of each month 05/07/2016 2017 Inactive metronidazole 500 mg tablet RxNorm: 267344 1 Tablet(s) PO TID 04/30/2016 05/09/2016 Inactive metronidazole 500 mg tablet RxNorm: 711762 1 Tablet(s) PO TID 04/30/2016 04/29/2016 Inactive vancomycin 125 mg ca psule RxNorm: 319504 1 Capsule(s) PO QID 04/29/2016 05/08/2016 Inactive vancomycin 125 mg ca psule RxNorm: 101707 1 Capsule(s) PO QID 04/29/2016 04/28/2016 Inactive Flagyl 500 mg tablet RxNorm: 981425 1 Tablet(s) PO TID 04/09/2016 04/08/2016 Inactive Flagyl 500 mg tablet RxNorm: 379534 1 Tablet(s) PO TID 04/09/2016 04/22/2016 Inactive carvedilol 3.125 mg tablet RxNorm: 763498 1 Tablet(s) PO BID 04/08/2016 2017 Inactive [place] Thyroid 60 mg tablet RxNorm: 412116 Tablet(s) PO 1 Tablet (s) daily 01/31/2016 06/19/2016 In active Pt request 90 day supply 11/23/2015 11:1 1:54 AM [place] Thyroid 30 mg tablet RxNorm: 527063 1 Tablet(s) daily 01/28/2016 01/30/2016 Inactive Pt request 90 day supply 11/23/2015 11:1 1:54 AM [place] Thyroid 30 mg tablet RxNorm: 408389 1 Tablet(s) daily 01/21/2016 01/27/2016 Inactive Pt request 90 day supply 11/23/2015 11:1 1:54 AM [place] Thyroid 30 mg tablet RxNorm: 573177 Tablet(s) TAKE ONE AN D ONE-HALF (45 MG) TABLET BY MOUTH EVERY DAY 01/02/2016 01/20/2016 Inactive Pt request 90 day supply 11/23/2015 11:11:54 AM Xylocaine 20 mg/mL ( 2 %) injection solution RxNorm: 8603882 2.5 Milliliter(s) In j BID with cefepime 12/27/2015 01/25/2016 Inactive cefepime 1 gram solu tion for injection RxNorm: 8036079 Inj 12/1012/27/2015 Inactive [place] Thyroid 30 mg tablet RxNorm: 941729 TAKE ONE TABLET BY [facility] EVERY DAY 11/23/2015 01/01/2016 In active Pt request 90 day supply 11/23/2015 11:1 1:54 AM Voltaren 1 % topical gel RxNorm: 813174 2 Gram(s) TOP QID 09/24/2015 12/26/2015 Inactive cyclobenzaprine 10 m g tablet RxNorm: 897822 1 Tablet(s) PO Q6 as needed 08/27/2015 05/06/2016 In active [place] Thyroid 30 mg tablet RxNorm: 884718 1 Tablet(s) PO daily 06/21/2015 06/20/2015 Inactive [place] Thyroid 30 mg tablet RxNorm: 518871 1 Tablet(s) PO daily 06/21/2015 11/22/2015 Inactive Synthroid 25 mcg tablet RxNorm: 268044 1 Tablet(s) PO daily 06/07/2015 06/06/2015 Inactive KASEY-1 Synthroid 25 mcg tablet RxNorm: 261692 1 Tablet(s) PO daily 06/07/2015 06/20/2015 Inactive KASEY-1 ofloxacin 0.3 % ear drops RxNorm: 690687 1-2 Drop(s) OTIC OU Q 4H as needed No Start Date Active Aspirin Low Dose 81 mg tablet,delayed release RxNorm: 439701 1 Tablet(s) PO daily No Start Date Active tyrosine (bulk) powder RxNorm: 1 Miscellaneous dash every am No Start Date Active arginine (L-arginine ) oral RxNorm: 1091 oral No Sta rt Date Active glutathione RxNorm: 4890 miscellaneous No Start Date Active Plaquenil 200 mg tablet RxNorm: 124276 1 Tablet(s) PO BID No Start Date 05/19/2016 Inactive fluconazole 100 mg t ablet RxNorm: 137241 1/2 Tablet(s) PO daily No Start Date 05/06/2016 Inactive fluconazole 150 mg t ablet RxNorm: 864096 1 Tablet(s) PO QW x4 No Start Date 12/26/2015 Inactive progesterone microni zed 100 mg capsule RxNorm: 817256 2 Capsule(s) PO daily No Start Date 05/06/2016 Inactive nystatin 500,000 uni t tablet RxNorm: 709664 1 Tablet(s) PO QID No Start Date 05/06/2016 Inactive cyclobenzaprine 10 m g tablet RxNorm: 005969 1 Tablet(s) PO Q6 as needed No Start Date 08/26/2015 Inactive vitamin K oral RxNorm: 8308 oral No Start Date 12/26/2015 Inactive carvedilol 3.125 mg tablet RxNorm: 296299 1 Tablet(s) PO daily No Start Date 04/07/2016 Inactive lisinopril 5 mg tablet RxNorm: 604785 1 Tablet(s) PO daily No Start Date 05/12/2017 Inactive azithromycin 250 mg tablet RxNorm: 003213 1 Tablet(s) PO daily will incrase to 2 per day No Start Date 12/26/2015 Inactive Probiotic 4X oral RxNorm: 2801807 oral No Start Date 01/07/2016 Inactive Imitrex 50 mg tablet RxNorm: 473460 TAKE WITH ONSET OF MIGRAINE- MAY TAKE AN ADDITIONAL DOSE IF NO RELIEF OF HEADACHE IN 1 HOUR- MAX OF 3 DOSES IN 24 HOURS No Start Date 06/13/2018 Inactive Vitamin D3 1,000 uni t tablet RxNorm: 362261 Tablet(s) PO daily No Start Date 05/06/2016 Inactive progesterone microni zed 100 mg capsule RxNorm: 831352 3 Capsule(s) PO daily rx from [facility] No Start Date 12/26/2015 Inactive lorazepam 0.5 mg tablet RxNorm: 576981 1/2-1 Tablet(s) PO daily as needed No Start Date 03/10/2016 Inactive Multiple Vitamin oral RxNorm: 65792 oral No Start Date 05/06/2016 Inactive Medication Administered Medication Codes Instruc tions Start Date Status Kenalog 40 mg/mL suspension for injection RxNorm: 8328896 Milliliter 01/10/2019 No longer Active Kenalog 40 mg/mL suspension for injection RxNorm: 6536763 1.5Milliliter 05/24/2018 No longer Active cefepime 1 gram solution for injection RxNorm: 2675261 12/27/2015 No longer A ctive Immunizations No Immunization data Assessments Condition Codes Effectiv e Dates Essential (primary) hypertension ICD -10: I10 ICD-9: 401.9 05/25/2019 Atrophy of thyroid (acquired) ICD-10 : E03.4 ICD-9: 244.8 05/25/2019 Allergic contact dermatitis due to plants, [...] Code Result Date Vitamin D 25 Oh [id number] VITAMIN D, 25 HYDROXY 51.28 ng/mL 02/18/2019 Tsh Ord6 TSH (3rd IS) 0.59 uIU/mL 02/18/2019 Free T4 Vry366 FREE T4 0.64 ng/dL 02/18/2019 Lipid Ord30 [...] 30.4 pg 02/18/2019 Cbc With Differential Ord2 Story% 15.5 % 02/18/2019 Cbc With Differential Ord2 [...] 1.30 K/ul 02/18/2019 Cbc With Differential Ord2 Story ABS# 0.7 K/ul 02/18/2019 Cbc With Differential Ord2 Eos ABS# 0.2 K/ul 02/18/2019 Cbc With Differential Ord2 Baso ABS# 0.0 K/ul 02/18/2019 Ferritin Ord22 FERRITIN 31.1 ng/mL 02/18/2019 Comp Metabolic Eea345 NA 145 mEq/L 06/14/2018 Comp Metabolic Nyf363 K 4.0 mEq/L 06/14/2018 Comp Metabolic Oga724 CL 106 mEq/L 06/14/2018 Comp Metabolic Gqy534 CO2 31.0 mEq/L 06/14/2018 Comp Metabolic Eyq558 AN ION GAP 12 06/14/2018 Comp Metabolic Qyx299 GL UCOSE 88 mg/dL 06/14/2018 Comp Metabolic Xxq498 Cr eat 0.7 mg/dL 06/14/2018 Comp Metabolic Dft376 eG FR 92 ml/min/1.73m2 06/14 Comp Metabolic Ppi557 BUN 9 mg/dL 06/14/2018 Comp Metabolic Fcp310 B/ C Ratio 13.6 Ratio 06/14/2018 Comp Metabolic Kjg244 CA LCIUM 9.0 mg/dL 06/14/2018 Comp Metabolic Aiz795 AL K PHOS 36 U/L 06/14/2018 Comp Metabolic Yet667 T(SGOT) 21 U/L 06/14/2018 Comp Metabolic Hze127 AL T(SGPT) 22 U/L 06/14/2018 Comp Metabolic Oty408 BI LI T 0.3 mg/dL 06/14/2018 Comp Metabolic Iwp418 AL BUMIN 3.8 g/dL 06/14/2018 Comp Metabolic Nex113 TP RO 5.8 g/dL 06/14/2018 Comp Metabolic Hul942 GL OB 2.0 g/dL 06/14/2018 Comp Metabolic Yni571 A/ G Ratio 2.0 Ratio 06/14/2018 Comp Metabolic Tvn717 Os mo 287 mOsmo 06/14/2018 Free T4 Dce565 FREE T4 0.66 ng/dL 06/14/2018 Tsh Ord6 [...] 29.8 pg 06/14/2018 Cbc With Differential Ord2 Story% 13.9 % 06/14/2018 Cbc With Differential Ord2 [...] 1.40 K/ul 06/14/2018 Cbc With Differential Ord2 Story ABS# 0.6 K/ul 06/14/2018 Cbc With Differential Ord2 Eos ABS# 0.2 K/ul 06/14/2018 Cbc With Differential Ord2 Baso ABS# 0.0 K/ul 06/14/2018 Free T4 Rjb526 FREE T4 0.63 ng/dL 01/05/2018 Lipid Ord30 CHOL 246 mg/dL 01/05/2018 Lipid Ord30 HDL 79.0 mg/dl 01/05/2018 Lipid Ord30 TRIG 124 mg/dL 01/05/2018 Lipid Ord30 LDL 142 mg/dL 01/05/2018 Lipid Ord30 C/HDL 3.1 Ratio 01/05/2018 Tsh Ord6 TSH (3rd IS) 1.48 uIU/mL 01/05/2018 Tsh Ord6 hTSH II 2.03 uIU/mL 08/07/2017 Comp Metabolic Glb582 NA 142 mEq/L 08/07/2017 Comp Metabolic Okm446 K 4.1 mEq/L 08/07/2017 Comp Metabolic Hdr222 CL 105 mEq/L 08/07/2017 Comp Metabolic Vfr312 CO2 27.0 mEq/L 08/07/2017 Comp Metabolic Knl746 AN ION GAP 14 08/07/2017 Comp Metabolic Xbf068 GL UCOSE 89 mg/dL 08/07/2017 Comp Metabolic Dlu142 Cr eat 0.7 mg/dL 08/07/2017 Comp Metabolic Svn458 eG FR 86 ml/min/1.73m2 08/07 Comp Metabolic Ovi642 BUN 16 mg/dL 08/07/2017 Comp Metabolic Lwr183 B/ C Ratio 22.9 Ratio 08/07/2017 Comp Metabolic Dpo477 CA LCIUM 9.8 mg/dL 08/07/2017 Comp Metabolic Dvd115 AL K PHOS 41 U/L 08/07/2017 Comp Metabolic Oob580 T(SGOT) 26 U/L 08/07/2017 Comp Metabolic Nzu645 AL T(SGPT) 21 U/L 08/07/2017 Comp Metabolic Msk122 BI LI T 0.5 mg/dL 08/07/2017 Comp Metabolic Hyz989 AL BUMIN 4.3 g/dL 08/07/2017 Comp Metabolic Hfg744 TP RO 6.6 g/dL 08/07/2017 Comp Metabolic Eya667 GL OB 2.3 g/dL 08/07/2017 Comp Metabolic Olp978 A/ G Ratio 1.9 Ratio 08/07/2017 Comp Metabolic Qzp620 Os mo 284 mOsmo 08/07/2017 Free T4 Hal447 FREE T4 0.64 ng/dL 08/07/2017 Lipid Ord30 [...] 30.3 pg 08/07/2017 Cbc With Differential Ord2 Story% 13.9 % 08/07/2017 Cbc With Differential Ord2 [...] 1.49 K/ul 08/07/2017 Cbc With Differential Ord2 Story ABS# 0.6 K/ul 08/07/2017 Cbc With Differential [...] 30.5 pg 11/20/2016 Cbc With Differential Ord2 Story% 10.8 % 11/20/2016 Cbc With Differential Ord2 [...] 1.62 K/ul 11/20/2016 Cbc With Differential Ord2 Story ABS# 0.5 K/ul 11/20/2016 Cbc With Differential Ord2 Eos ABS# 0.2 K/ul 11/20/2016 Cbc With Differential Ord2 Baso ABS# 0.0 K/ul 11/20/2016 Free T4 Dat161 FREE T4 0.80 ng/dL 11/20/2016 Tsh Ord6 hTSH II 1.35 uIU/mL 11/20/2016 Comp Metabolic Tlj796 NA 139 mEq/L 11/20/2016 Comp Metabolic Eeo029 K 3.9 mEq/L 11/20/2016 Comp Metabolic Kfp839 CL 103 mEq/L 11/20/2016 Comp Metabolic Xms830 CO2 30.0 mEq/L 11/20/2016 Comp Metabolic Fjg678 AN ION GAP 10 11/20/2016 Comp Metabolic Zdw157 GL UCOSE 85 mg/dL 11/20/2016 Comp Metabolic Hir445 Cr eat 0.7 mg/dL 11/20/2016 Comp Metabolic Eee329 eG FR 93 ml/min/1.73m2 11/20 Comp Metabolic Qss997 BUN 12 mg/dL 11/20/2016 Comp Metabolic Upv152 B/ C Ratio 18.2 Ratio 11/20/2016 Comp Metabolic Lgz508 CA LCIUM 9.1 mg/dL 11/20/2016 Comp Metabolic Lkx677 AL K PHOS 34 U/L 11/20/2016 Comp Metabolic Mxb082 T(SGOT) 18 U/L 11/20/2016 Comp Metabolic Hwz461 AL T(SGPT) 14 U/L 11/20/2016 Comp Metabolic Tnv941 BI LI T 0.5 mg/dL 11/20/2016 Comp Metabolic Ilz312 AL BUMIN 4.2 g/dL 11/20/2016 Comp Metabolic Kre207 TP RO 6.3 g/dL 11/20/2016 Comp Metabolic Wjf116 GL OB 2.1 g/dL 11/20/2016 Comp Metabolic Kkp963 A/ G Ratio 2.0 Ratio 11/20/2016 Comp Metabolic Jcp620 Os mo 277 mOsmo 11/20/2016 Lipid Ord30 CHOL 189 mg/dL 11/20/2016 Lipid Ord30 HDL 81.0 mg/dl 11/20/2016 Lipid Ord30 TRIG 77 mg/dL 11/20/2016 Lipid Ord30 LDL 93 mg/dL 11/20/2016 Lipid Ord30 C/HDL 2.3 Ratio 11/20/2016 Testosterone Free Direct [id number] FREE TESTOSTERONE 0.7 pg/mL 10/06/2016 Estradiol 719834 ESTRADI OL 5.9 pg/mL 10/03/2016 Cortisol 329447 CORTISOL 23 ug/dL 10/03/2016 Progesterone Jqf140 Prog 17.38 ng/mL 10/01/2016 Free T4 Mbg708 FREE T4 0.66 ng/dL 08/13/2016 Tsh Ord6 hTSH II 0.99 uIU/mL 08/13/2016 Testosterone Free Direct 530653 FREE TESTOSTERONE <0.2 pg/mL 07/05/2016 Estradiol 833044 ESTRADI OL <5.0 pg/mL 07/03/2016 Progesterone Tvd291 Prog 23.37 ng/mL 07/02/2016 Tsh Ord6 hTSH II 0.24 uIU/mL 06/17/2016 Free T4 Jnq887 FREE T4 0.86 ng/dL 06/17/2016 Estradiol 078469 ESTRADI OL <5.0 pg/mL 05/21/2016 Comp Metabolic Pdb483 NA 140 mEq/L 05/20/2016 Comp Metabolic Aqh015 K 4.1 mEq/L 05/20/2016 Comp Metabolic Suh913 CL 106 mEq/L 05/20/2016 Comp Metabolic Aax912 CO2 26.0 mEq/L 05/20/2016 Comp Metabolic Iiw285 AN ION GAP 12 05/20/2016 Comp Metabolic Jax369 GL UCOSE 81 mg/dL 05/20/2016 Comp Metabolic Wfw823 Cr eat 0.5 mg/dL 05/20/2016 Comp Metabolic Tjf731 eG FR 119 ml/min/1.73m2 05/09 Comp Metabolic Xyh754 BUN 15 mg/dL 05/20/2016 Comp Metabolic Dkt339 B/ C Ratio 28.3 Ratio 05/20/2016 Comp Metabolic Kjl076 CA LCIUM 8.9 mg/dL 05/20/2016 Comp Metabolic Jva658 AL K PHOS 36 U/L 05/20/2016 Comp Metabolic Wqv280 T(SGOT) 25 U/L 05/20/2016 Comp Metabolic Pqn467 AL T(SGPT) 23 U/L 05/20/2016 Comp Metabolic Qfk700 BI LI T 0.4 mg/dL 05/20/2016 Comp Metabolic Tiu571 AL BUMIN 3.7 g/dL 05/20/2016 Comp Metabolic Rya158 TP RO 5.9 g/dL 05/20/2016 Comp Metabolic Qym498 GL OB 2.2 g/dL 05/20/2016 Comp Metabolic Bgu214 A/ G Ratio 1.7 Ratio 05/20/2016 Comp Metabolic Ngs094 Os mo 279 mOsmo 05/20/2016 Progesterone Wgm074 Prog 8.44 ng/mL 05/20/2016 Cbc With Differential [...] 30.2 pg 05/20/2016 Cbc With Differential Ord2 Story% 13.0 % 05/20/2016 Cbc With Differential Ord2 [...] 0.85 K/ul 05/20/2016 Cbc With Differential Ord2 Story ABS# 0.6 K/ul 05/20/2016 Cbc With Differential [...] collection if refrigerated) 05/20/2016 Testosterone Free Direct [id number] FREE TESTOSTERONE 0.6 pg/mL 05/19/2016 Estradiol 135585 ESTRADI OL <5.0 pg/mL 05/16/2016 Comp Metabolic Bau196 NA 140 mEq/L 05/15/2016 Comp Metabolic Gge117 K 3.8 mEq/L 05/15/2016 Comp Metabolic Qfe251 CL 106 mEq/L 05/15/2016 Comp Metabolic Ddy845 CO2 26.0 mEq/L 05/15/2016 Comp Metabolic Snk825 AN ION GAP 12 05/15/2016 Comp Metabolic Nbk944 GL UCOSE 77 mg/dL 05/15/2016 Comp Metabolic Okr816 Cr eat 0.5 mg/dL 05/15/2016 Comp Metabolic Mjh030 eG FR 144 ml/min/1.73m2 05/2016 Comp Metabolic Aae960 BUN 18 mg/dL 05/15/2016 Comp Metabolic Cku900 B/ C Ratio 40.0 Ratio 05/15/2016 Comp Metabolic Viv434 CA LCIUM 8.8 mg/dL 05/15/2016 Comp Metabolic Uwe099 AL K PHOS 28 U/L 05/15/2016 Comp Metabolic Tml541 T(SGOT) 19 U/L 05/15/2016 Comp Metabolic Swc488 AL T(SGPT) 19 U/L 05/15/2016 Comp Metabolic Qqi182 BI LI T 0.5 mg/dL 05/15/2016 Comp Metabolic Wsg424 AL BUMIN 3.6 g/dL 05/15/2016 Comp Metabolic Slw346 TP RO 5.6 g/dL 05/15/2016 Comp Metabolic Cff779 GL OB 2.0 g/dL 05/15/2016 Comp Metabolic Zdy058 A/ G Ratio 1.8 Ratio 05/15/2016 Comp Metabolic Oki190 Os mo 280 mOsmo 05/15/2016 Progesterone Jrh779 Prog 9.08 ng/mL 05/15/2016 Cbc With Differential [...] 29.9 pg 05/15/2016 Cbc With Differential Ord2 Story% 14.1 % 05/15/2016 Cbc With Differential Ord2 [...] 1.42 K/ul 05/15/2016 Cbc With Differential Ord2 Story ABS# 0.6 K/ul 05/15/2016 Cbc With Differential [...] Ord28 U-Com None 05/15/2016 Testosterone Free Direct [id number] FREE TESTOSTERONE 0.2 pg/mL 05/09/2016 Estradiol 997363 ESTRADI OL <5.0 pg/mL 05/07/2016 Comp Metabolic Ppk938 NA 141 mEq/L 05/06/2016 Comp Metabolic Tgw272 K 3.6 mEq/L 05/06/2016 Comp Metabolic Vag745 CL 107 mEq/L 05/06/2016 Comp Metabolic Rmb580 CO2 28.0 mEq/L 05/06/2016 Comp Metabolic Iyj724 AN ION GAP 10 05/06/2016 Comp Metabolic Oob431 GL UCOSE 138 mg/dL 05/06/2016 Comp Metabolic Wec295 Cr eat 0.5 mg/dL 05/06/2016 Comp Metabolic Crv914 eG FR 119 ml/min/1.73m2 04/10 Comp Metabolic Uma591 BUN 16 mg/dL 05/06/2016 Comp Metabolic Cpg847 B/ C Ratio 30.2 Ratio 05/06/2016 Comp Metabolic Qbw631 CA LCIUM 8.9 mg/dL 05/06/2016 Comp Metabolic Pnk162 AL K PHOS 29 U/L 05/06/2016 Comp Metabolic Wzl159 T(SGOT) 20 U/L 05/06/2016 Comp Metabolic Sbh801 AL T(SGPT) 21 U/L 05/06/2016 Comp Metabolic Fvy648 BI LI T 0.4 mg/dL 05/06/2016 Comp Metabolic Gey559 AL BUMIN 3.6 g/dL 05/06/2016 Comp Metabolic Vya358 TP RO 5.5 g/dL 05/06/2016 Comp Metabolic Eou070 GL OB 1.9 g/dL 05/06/2016 Comp Metabolic Zzy989 A/ G Ratio 1.9 Ratio 05/06/2016 Comp Metabolic Hxi451 Os mo 285 mOsmo 05/06/2016 Urinalysis Ord28 [...] hours from collection if refrigerated) 05/06/2016 Progesterone Ryh294 Prog 0.98 ng/mL 05/06/2016 Cbc With Differential [...] 29.2 pg 05/06/2016 Cbc With Differential Ord2 Story% 10.1 % 05/06/2016 Cbc With Differential Ord2 [...] 1.16 K/ul 05/06/2016 Cbc With Differential Ord2 Story ABS# 0.4 K/ul 05/06/2016 Cbc With Differential [...] 29.6 pg 04/29/2016 Cbc With Differential Ord2 Story% 13.1 % 04/29/2016 Cbc With Differential Ord2 [...] 1.42 K/ul 04/29/2016 Cbc With Differential Ord2 Story ABS# 0.5 K/ul 04/29/2016 Cbc With Differential Ord2 Eos ABS# 0.2 K/ul 04/29/2016 Cbc With Differential Ord2 Baso ABS# 0.0 K/ul 04/29/2016 Comp Metabolic Oae897 NA 141 mEq/L 04/29/2016 Comp Metabolic Wta811 K 4.0 mEq/L 04/29/2016 Comp Metabolic Glh046 CL 108 mEq/L 04/29/2016 Comp Metabolic Mtd310 CO2 27.0 mEq/L 04/29/2016 Comp Metabolic Ejx621 AN ION GAP 10 04/29/2016 Comp Metabolic Zmk866 GL UCOSE 69 mg/dL 04/29/2016 Comp Metabolic Klr468 Cr eat 0.5 mg/dL 04/29/2016 Comp Metabolic Ifq123 eG FR 122 ml/min/1.73m2 04/10 Comp Metabolic Tsp644 BUN 19 mg/dL 04/29/2016 Comp Metabolic Pml436 B/ C Ratio 36.5 Ratio 04/29/2016 Comp Metabolic Bid733 CA LCIUM 9.1 mg/dL 04/29/2016 Comp Metabolic Ain451 AL K PHOS 31 U/L 04/29/2016 Comp Metabolic Lcm617 T(SGOT) 20 U/L 04/29/2016 Comp Metabolic Ycf540 AL T(SGPT) 22 U/L 04/29/2016 Comp Metabolic Cwj502 BI LI T 0.6 mg/dL 04/29/2016 Comp Metabolic Jzg386 AL BUMIN 3.8 g/dL 04/29/2016 Comp Metabolic Xxz856 TP RO 5.9 g/dL 04/29/2016 Comp Metabolic Mof469 GL OB 2.1 g/dL 04/29/2016 Comp Metabolic Zkg380 A/ G Ratio 1.8 Ratio 04/29/2016 Comp Metabolic Lcc523 Os mo 282 mOsmo 04/29/2016 Progesterone Qos229 Prog 5.99 ng/mL 04/29/2016 Urinalysis Ord28 U-Color [...] from collection if refrigerated) 04/25/2016 Comp Metabolic Ypj290 NA 138 mEq/L 04/25/2016 Comp Metabolic Inv672 K 3.6 mEq/L 04/25/2016 Comp Metabolic Ltp174 CL 105 mEq/L 04/25/2016 Comp Metabolic Jfr348 CO2 27.0 mEq/L 04/25/2016 Comp Metabolic Mbr461 AN ION GAP 10 04/25/2016 Comp Metabolic Zte583 GL UCOSE 190 mg/dL 04/25/2016 Comp Metabolic Vat060 Cr eat 0.5 mg/dL 04/25/2016 Comp Metabolic Dgd532 eG FR 128 ml/min/1.73m2 04/09 Comp Metabolic Yry841 BUN 17 mg/dL 04/25/2016 Comp Metabolic Pxl410 B/ C Ratio 34.0 Ratio 04/25/2016 Comp Metabolic Nui007 CA LCIUM 8.7 mg/dL 04/25/2016 Comp Metabolic Nyd473 AL K PHOS 32 U/L 04/25/2016 Comp Metabolic Loa069 T(SGOT) 23 U/L 04/25/2016 Comp Metabolic Ndo608 AL T(SGPT) 22 U/L 04/25/2016 Comp Metabolic Yee548 BI LI T 0.5 mg/dL 04/25/2016 Comp Metabolic Kcu981 AL BUMIN 3.6 g/dL 04/25/2016 Comp Metabolic Wwi254 TP RO 5.5 g/dL 04/25/2016 Comp Metabolic Stj376 GL OB 1.9 g/dL 04/25/2016 Comp Metabolic Rnq209 A/ G Ratio 1.9 Ratio 04/25/2016 Comp Metabolic Znw461 Os mo 282 mOsmo 04/25/2016 Cbc With [...] 29.6 pg 04/25/2016 Cbc With Differential Ord2 Story% 13.0 % 04/25/2016 Cbc With Differential Ord2 [...] 1.01 K/ul 04/25/2016 Cbc With Differential Ord2 Story ABS# 0.4 K/ul 04/25/2016 Cbc With Differential [...] 29.2 pg 04/04/2016 Cbc With Differential Ord2 Story% 16.1 % 04/04/2016 Cbc With Differential Ord2 [...] 1.32 K/ul 04/04/2016 Cbc With Differential Ord2 Story ABS# 0.8 K/ul 04/04/2016 Cbc With Differential Ord2 Eos ABS# 0.2 K/ul 04/04/2016 Cbc With Differential Ord2 Baso ABS# 0.0 K/ul 04/04/2016 Comp Metabolic Syh026 NA 140 mEq/L 04/04/2016 Comp Metabolic Snm524 K 4.1 mEq/L 04/04/2016 Comp Metabolic Kvw195 CL 106 mEq/L 04/04/2016 Comp Metabolic Gcg357 CO2 27.0 mEq/L 04/04/2016 Comp Metabolic Ixn379 AN ION GAP 11 04/04/2016 Comp Metabolic Zoo734 GL UCOSE 71 mg/dL 04/04/2016 Comp Metabolic Ngb266 Cr eat 0.5 mg/dL 04/04/2016 Comp Metabolic Dru695 eG FR 131 ml/min/1.73m2 03/10 Comp Metabolic Xwp745 BUN 14 mg/dL 04/04/2016 Comp Metabolic Mah930 B/ C Ratio 28.6 Ratio 04/04/2016 Comp Metabolic Muj406 CA LCIUM 9.1 mg/dL 04/04/2016 Comp Metabolic Qai809 AL K PHOS 42 U/L 04/04/2016 Comp Metabolic Hoe745 T(SGOT) 18 U/L 04/04/2016 Comp Metabolic Mvi657 AL T(SGPT) 17 U/L 04/04/2016 Comp Metabolic Hiw737 BI LI T 0.4 mg/dL 04/04/2016 Comp Metabolic Fbl842 AL BUMIN 3.8 g/dL 04/04/2016 Comp Metabolic Vxm241 TP RO 6.0 g/dL 04/04/2016 Comp Metabolic Oxn344 GL OB 2.2 g/dL 04/04/2016 Comp Metabolic Stz014 A/ G Ratio 1.7 Ratio 04/04/2016 Comp Metabolic Uzf262 Os mo 278 mOsmo 04/04/2016 Urinalysis Ord28 [...] 29.6 pg 03/28/2016 Cbc With Differential Ord2 Story% 11.7 % 03/28/2016 Cbc With Differential Ord2 [...] 1.14 K/ul 03/28/2016 Cbc With Differential Ord2 Story ABS# 0.4 K/ul 03/28/2016 Cbc With Differential Ord2 Eos ABS# 0.1 K/ul 03/28/2016 Cbc With Differential Ord2 Baso ABS# 0.0 K/ul 03/28/2016 Cbc With Differential Ord2 New Analyzer Notice Please note new ref ranges s tarting 11-21-2015 due to implemntation of new five part differential hematolgy analyzer. 03/28/2016 Comp Metabolic Edd130 NA 137 mEq/L 03/28/2016 Comp Metabolic Qjd047 K 3.5 mEq/L 03/28/2016 Comp Metabolic Kcg763 CL 105 mEq/L 03/28/2016 Comp Metabolic Rme930 CO2 27.0 mEq/L 03/28/2016 Comp Metabolic Kez589 AN ION GAP 9 03/28/2016 Comp Metabolic Tet495 GL UCOSE 174 mg/dL 03/28/2016 Comp Metabolic Tyi148 Cr eat 0.5 mg/dL 03/28/2016 Comp Metabolic Rib071 eG FR 131 ml/min/1.73m2 03/10 Comp Metabolic Flm552 BUN 13 mg/dL 03/28/2016 Comp Metabolic Vxf726 B/ C Ratio 26.5 Ratio 03/28/2016 Comp Metabolic Dzg745 CA LCIUM 8.7 mg/dL 03/28/2016 Comp Metabolic Jzt401 AL K PHOS 31 U/L 03/28/2016 Comp Metabolic Dih366 T(SGOT) 20 U/L 03/28/2016 Comp Metabolic Ziu273 AL T(SGPT) 19 U/L 03/28/2016 Comp Metabolic Isr669 BI LI T 0.4 mg/dL 03/28/2016 Comp Metabolic Eax855 AL BUMIN 3.5 g/dL 03/28/2016 Comp Metabolic Rgn956 TP RO 5.3 g/dL 03/28/2016 Comp Metabolic Jvx969 GL OB 1.8 g/dL 03/28/2016 Comp Metabolic Qrt035 A/ G Ratio 2.0 Ratio 03/28/2016 Comp Metabolic Lim882 Os mo 278 mOsmo 03/28/2016 Urinalysis Ord28 [...] collection if refrigerated) 03/28/2016 Testosterone Free Direct 468602 FREE TESTOSTERONE <0.2 pg/mL 03/13/2016 Estradiol 168525 ESTRADI OL <5.0 pg/mL 03/12/2016 Progesterone Alh487 Prog 0.56 ng/mL 03/10/2016 Homocyst(E)Ine Plasma 121108 HOMOCYSTEINE, TOTAL 10.9 umol/L 01/18/2016 Mthfr 309161 MTHFR C677T: HETEROZYGOUS MUTATION DETECTED 02/2016 Mthfr 655442 MTHFR A1298 C: HETEROZYGOUS MUTATION DETECTED 01/11/2016 Mthfr 536625 INTERPRETAT ION: 01/11/2016 Iodine Serum 499334 IOD INE, SERUM 131.0 ug/L 01/10/2016 Tsh Ord6 hTSH II 2.11 uIU/mL 01/07/2016 Comp Metabolic Aej138 NA 139 mEq/L 01/07/2016 Comp Metabolic Xen857 K 4.0 mEq/L 01/07/2016 Comp Metabolic Vlw654 CL 104 mEq/L 01/07/2016 Comp Metabolic Bmj436 CO2 26.0 mEq/L 01/07/2016 Comp Metabolic Slm837 AN ION GAP 13 01/07/2016 Comp Metabolic Hbp373 GL UCOSE 86 mg/dL 01/07/2016 Comp Metabolic Kqa776 Cr eat 0.6 mg/dL 01/07/2016 Comp Metabolic Vmd590 eG FR 100 ml/min/1.73m2 12/11 Comp Metabolic Jwy937 BUN 18 mg/dL 01/07/2016 Comp Metabolic Bvv142 B/ C Ratio 29.0 Ratio 01/07/2016 Comp Metabolic Wfu956 CA LCIUM 9.4 mg/dL 01/07/2016 Comp Metabolic Ile313 AL K PHOS 40 U/L 01/07/2016 Comp Metabolic Rur291 T(SGOT) 20 U/L 01/07/2016 Comp Metabolic Hgi052 AL T(SGPT) 24 U/L 01/07/2016 Comp Metabolic Jws706 BI LI T 0.6 mg/dL 01/07/2016 Comp Metabolic Kmd502 AL BUMIN 4.1 g/dL 01/07/2016 Comp Metabolic Imz867 TP RO 6.4 g/dL 01/07/2016 Comp Metabolic Nyn949 GL OB 2.3 g/dL 01/07/2016 Comp Metabolic Dyg452 A/ G Ratio 1.8 Ratio 01/07/2016 Comp Metabolic Gmk670 Os mo 279 mOsmo 01/07/2016 Lipid Ord30 [...] Ord28 U-Com Culture to follow 11/26/2015 Progesterone Cfe817 Prog >40.00 ng/mL 11/26/2015 Testosterone Free Direct 788425 FREE TESTOSTERONE 0.6 pg/mL 10/01/2015 Estradiol 746222 ESTRADI OL <5.0 pg/mL 09/26/2015 Urinalysis Ord28 [...] Urinalysis Ord28 U-Yeast NEGATIVE 09/25/2015 Comp Metabolic Vom881 NA 142 mEq/L 09/25/2015 Comp Metabolic Tmy147 K 4.3 mEq/L 09/25/2015 Comp Metabolic Esp309 CL 110 mEq/L 09/25/2015 Comp Metabolic Cja937 CO2 23.0 mEq/L 09/25/2015 Comp Metabolic Xqy515 AN ION GAP 13 09/25/2015 Comp Metabolic Znz322 GL UCOSE 76 mg/dL 09/25/2015 Comp Metabolic Qjb548 Cr eat 0.8 mg/dL 09/25/2015 Comp Metabolic Ygd537 eG FR 79 ml/min/1.73m2 09/25 Comp Metabolic Xiv697 BUN 17 mg/dL 09/25/2015 Comp Metabolic Uhn577 B/ C Ratio 22.4 Ratio 09/25/2015 Comp Metabolic Fmj171 CA LCIUM 9.4 mg/dL 09/25/2015 Comp Metabolic Atx128 AL K PHOS 45 U/L 09/25/2015 Comp Metabolic Xih285 T(SGOT) 20 U/L 09/25/2015 Comp Metabolic Bpw011 AL T(SGPT) 18 U/L 09/25/2015 Comp Metabolic Qwl141 BI LI T 0.5 mg/dL 09/25/2015 Comp Metabolic Lvo318 AL BUMIN 4.0 g/dL 09/25/2015 Comp Metabolic Mmn208 TP RO 6.2 g/dL 09/25/2015 Comp Metabolic Mdf346 GL OB 2.2 g/dL 09/25/2015 Comp Metabolic Fiz054 A/ G Ratio 1.8 Ratio 09/25/2015 Comp Metabolic Mtr324 Os mo 283 mOsmo 09/25/2015 Tsh Ord6 hTSH II 4.05 uIU/mL 09/25/2015 Progesterone Eit409 Prog 21.38 ng/mL 09/25/2015 Free T4 Ssr246 FREE T4 0.78 ng/dL 09/25/2015 Cbc With [...] RDW 14.3 % 09/25/2015 Testosterone Free Direct 478364 FREE TESTOSTERONE 1.2 pg/mL 08/31/2015 Estradiol 651512 ESTRADI OL <5.0 pg/mL 08/29/2015 Progesterone Phc784 Prog 4.37 ng/mL 08/28/2015 Fungal Screen I 124670 * *ASPERGILLUS AB BY ID . 07/23/2015 Fungal Screen I 272362 A SPERGILLUS AB BY ID None Detected 015 Fungal Screen I 039171 * *BLASTOMYCES ANTIBODY BY CF & ID . 07/23/2015 Fungal Screen I 223600 B LASTOMYCES AB,CF <1:8 07/23/2015 Fungal Screen I 926821 B LASTOMYCES AB,ID None Detected 015 Fungal Screen I 703222 * *MAXINE ANTIBODY BY ID . 07/23/2015 Fungal Screen I 029578 C ANDIDA AB BY ID Detected 07/23/2015 Fungal Screen I 697872 * *COCCIDIOIDES ANTIBODIES, IGG & IGM . 07/23/2015 Fungal Screen I 412022 C OCCIDIOIDES AB IGM 0.3 IV 07/23/2015 Fungal Screen I 895473 C OCCIDIOIDES AB IGG 0.4 IV 07/23/2015 Fungal Screen I 306296 * *HISTOPLASMA ANTIBODY BY ID . 07/23/2015 Fungal Screen I 519201 H ISTOPLASMA ABS (ID) None Detected 015 Francisella Tularensis Abs 775079 F. TULARENSIS, IGG 0 U/mL 07/17/2015 Francisella Tularensis Abs 082720 F. TULARENSIS, IGM 0 U/mL 07/17/2015 Vitamin D 25 Oh Zij4669 VITAMIN D, 25 HYDROXY 142.21 ng/mL 07/13/2015 Antistrptolysin-O Qualitative Jcc990 ASO Negative 07/12/2015 B12 Ktd050 B12 956.00 pg/ml 07/12/2015 Cbc With Differential [...] Ord2 RDW 15.1 % 07/10/2015 Free T4 Gix841 FREE T4 0.79 ng/dL 06/12/2015 Urinalysis Ord28 [...] Ord2 RDW 16.0 % 06/04/2015 Comp Metabolic Wpz373 NA 139 mEq/L 06/04/2015 Comp Metabolic Kgo551 K 3.9 mEq/L 06/04/2015 Comp Metabolic Bgs559 CL 108 mEq/L 06/04/2015 Comp Metabolic Wcn323 CO2 26.0 mEq/L 06/04/2015 Comp Metabolic Avq494 AN ION GAP 9 06/04/2015 Comp Metabolic Mrg877 GL UCOSE 74 mg/dL 06/04/2015 Comp Metabolic Tuo018 Cr eat 0.6 mg/dL 06/04/2015 Comp Metabolic Pvq716 eG FR 102 ml/min/1.73m2 05/10 Comp Metabolic Vgt681 BUN 18 mg/dL 06/04/2015 Comp Metabolic Yle402 B/ C Ratio 29.5 Ratio 06/04/2015 Comp Metabolic Mjl548 CA LCIUM 9.0 mg/dL 06/04/2015 Comp Metabolic Zig170 AL K PHOS 44 U/L 06/04/2015 Comp Metabolic Luz681 T(SGOT) 22 U/L 06/04/2015 Comp Metabolic Rtr207 AL T(SGPT) 23 U/L 06/04/2015 Comp Metabolic Cno666 BI LI T 0.4 mg/dL 06/04/2015 Comp Metabolic Sdo160 AL BUMIN 4.0 g/dL 06/04/2015 Comp Metabolic Wps992 TP RO 5.8 g/dL 06/04/2015 Comp Metabolic Tlo345 GL OB 1.8 g/dL 06/04/2015 Comp Metabolic Rhz847 A/ G Ratio 2.2 Ratio 06/04/2015 Comp Metabolic Irr461 Os mo 278 mOsmo 06/04/2015 Tsh Ord6 [...] 4: G0439 03/11/2016 THER/PROPH/DIAG INJ SC/IM CPT-4: 50831 12/27/2015 Vital Signs Date Vital 05/25/2019 Blood Pressure 1: 116/66 Code: 8480-6 BMI: 20.7 Code: 06578-9 Heart Rate 1: 70 bpm Height: 5' SpO2: 98% Weight: 106 lbs 05/19/2019 Blood Pressure 1: 128/68 Code: 8480-6 BMI: 20.3 Code: 21863-2 Heart Rate 1: 64 bpm Height: 5' SpO2: 98% Weight: 104 lbs 01/24/2019 Blood Pressure 1: 140/78 Code: 8480-6 BMI: 19.9 Code: 73619-6 Heart Rate 1: 84 bpm Height: 5' SpO2: 95% Weight: 102 lbs 01/10/2019 Blood Pressure 1: 126/62 Code: 8480-6 BMI: 19.9 Code: 34131-6 Heart Rate 1: 90 bpm Height: 5' SpO2: 94% Temperature: 36.6 (C ) / 97.8 (F) Weight: 102 lbs 11/25/2018 Blood Pressure 1: 128/74 Code: 8480-6 BMI: 19.7 Code: 20136-6 Heart Rate 1: 86 bpm Height: 5' SpO2: 97% Weight: 101 lbs 09/15/2018 Blood Pressure 1: 130/70 Code: 8480-6 BMI: 20.6 Code: 92814-3 Heart Rate 1: 75 bpm Height: 5' SpO2: 99% Weight: 105 lbs 8 oz 09/10/2018 Blood Pressure 1: 126/68 Code: 8480-6 BMI: 20.7 Code: 53819-9 Heart Rate 1: 63 bpm Height: 5' SpO2: 96% Waist Measure (cm): 66 cm Weight: 106 lbs 06/01/2018 Blood Pressure 1: 156/76 Code: 8480-6 BMI: 20.1 Code: 58136-4 Heart Rate 1: 68 bpm Height: 5' SpO2: 99% Weight: 103 lbs 05/24/2018 Blood Pressure 1: 120/60 Code: 8480-6 BMI: 20.5 Code: 31756-1 Heart Rate 1: 82 bpm Height: 5' SpO2: 98% Weight: 105 lbs 05/19/2018 Blood Pressure 1: 140/72 Code: 8480-6 BMI: 20.5 Code: 91340-2 Heart Rate 1: 96 bpm Height: 5' SpO2: 98% Weight: 105 lbs 01/12/2018 Blood Pressure 1: 146/78 Code: 8480-6 BMI: 21.1 Code: 69304-0 Heart Rate 1: 85 bpm Height: 5' SpO2: 95% Weight: 108 lbs 10/12/2017 Blood Pressure 1: 138/72 Code: 8480-6 BMI: 21.1 Code: 44786-3 Heart Rate 1: 96 bpm Height: 5' SpO2: 98% Weight: 108 lbs 08/06/2017 Blood Pressure 1: 130/78 Code: 8480-6 BMI: 20.5 Code: 81005-2 Heart Rate 1: 89 bpm Height: 5' SpO2: 98% Weight: 105 lbs 05/13/2017 Blood Pressure 1: 122/70 Code: 8480-6 BMI: 20.5 Code: 90813-9 Heart Rate 1: 80 bpm Height: 5' SpO2: 97% Weight: 105 lbs 03/19/2017 Blood Pressure 1: 138/80 Code: 8480-6 BMI: 20.5 Code: 03630-8 Heart Rate 1: 83 bpm Height: 5' SpO2: 97% Waist Measure (cm): 74 cm Weight: 105 lbs 03/18/2017 Blood Pressure 1: 138/80 Code: 8480-6 BMI: 20.5 Code: 41447-2 Heart Rate 1: 83 bpm Height: 5' SpO2: 97% Weight: 105 lbs 01/27/2017 Blood Pressure 1: 142/68 Code: 8480-6 BMI: 20.5 Code: 99844-5 Heart Rate 1: 69 bpm Height: 5' SpO2: 97% Weight: 105 lbs 12/29/2016 Blood Pressure 1: 154/82 Code: 8480-6 BMI: 20.1 Code: 41244-2 Heart Rate 1: 76 bpm Height: 5' SpO2: 94% Temperature: 37.4 (C ) / 99.4 (F) Weight: 103 lbs 11/19/2016 Blood Pressure 1: 134/74 Code: 8480-6 BMI: 19.7 Code: 54474-5 Heart Rate 1: 64 bpm Height: 5' Weight: 101 lbs 08/13/2016 Blood Pressure 1: 118/56 Code: 8480-6 BMI: 19.5 Code: 11113-1 Heart Rate 1: 64 bpm Height: 5' SpO2: 97% Weight: 100 lbs 07/03/2016 Blood Pressure 1: 120/68 Code: 8480-6 BMI: 19.1 Code: 86203-8 Heart Rate 1: 80 bpm Height: 5' SpO2: 98% Weight: 98 lbs 05/07/2016 Blood Pressure 1: 116/58 Code: 8480-6 BMI: 19.1 Code: 24425-9 Heart Rate 1: 79 bpm Height: 5' SpO2: 98% Weight: 98 lbs 04/08/2016 Blood Pressure 1: 118/58 Code: 8480-6 BMI: 19.0 Code: 70862-7 Heart Rate 1: 78 bpm Height: 5' SpO2: 98% Weight: 97 lbs 8 oz 03/11/2016 Blood Pressure 1: 102/60 Code: 8480-6 BMI: 19.7 Code: 22724-7 Heart Rate 1: 75 bpm Height: 5' SpO2: 94% Waist Measure (cm): 71 cm Weight: 101 lbs 12/27/2015 Blood Pressure 1: 128/72 Code: 8480-6 BMI: 20.2 Code: 81609-5 Heart Rate 1: 95 bpm Height: 5' SpO2: 98% Weight: 103 lbs 8 oz 09/24/2015 Blood Pressure 1: 136/70 Code: 8480-6 BMI: 19.1 Code: 42803-7 Heart Rate 1: 72 bpm Height: 5' SpO2: 97% Weight: 98 lbs 06/26/2015 Blood Pressure 1: 144/64 Code: 8480-6 BMI: 18.9 Code: 36896-5 Heart Rate 1: 77 bpm Height: 5' SpO2: 98% Weight: 97 lbs 04/10/2015 Blood Pressure 1: 132/88 Code: 8480-6 BMI: 18.9 Code: 07593-0 Heart Rate 1: 83 bpm Height: 5' [...] Episodes daily 01/24/2019 None Location in [facility] 01/24/2019 None Onset and Resolution [...] Alleviating Factors medication 09/15/2018 None hypothyroid Quality cat scan tech deisy 09/15/2018 None hypothyroid Onset and Resolution [...] Alleviating Factors medication 05/19/2018 None hypothyroid Quality cat scan tech deisy 05/19/2018 None hypertension Quality tari kebede [...] Encounters Encounter Performer Loca tion Codes Date ([id number]) 72854 EST. P ATIENT, LEVEL IV Diagnosis: Essential (primary) hypertension[ICD10: I10] Diagnosis: Atrophy of thyroid (acquired)[ICD10: E03.4] Kailee Moreira MD, [facility] CPT-4: 63432 05/25/2019 [id number] EST. PATIENT, LEVEL II Diagnosis: Allergic contact dermatitis due to plants, except food[ICD10: L23.7] Marixa Moreira MD, [facility] CPT-4: 85619 05/19/2019 ([id number]) 92384 EST. P ATIENT, LEVEL IV Diagnosis: Essential (primary) hypertension[ICD10: I10] Diagnosis: Headache[ICD10: R51] Diagnosis: Atrophy of thyroid (acquired)[ICD10: E03.4] Diagnosis: Other forms of dyspnea[ICD10: R06.09] Kailee Moreira MD, [facility] CPT-4: 82866 01/24/2019 ([id number]) 74580 EST. P ATIENT, LEVEL III Diagnosis: Headache[ICD10: R51] Diagnosis: Nasal congestion[ICD10: R09.81] Marixa Moreira MD, [facility] CPT- 4: 47962 01/10/2019 ([id number]) 30554 EST. 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 P ATIENT, LEVEL IV Diagnosis: Essential (primary) hypertension[ICD10: I10] Diagnosis: Atrophy of thyroid (acquired)[ICD10: E03.4] Diagnosis: Low back pain[ICD10: M54.5] Diagnosis: Other specified noninflammatory disorders of vagina[ICD10: N89.8] Kailee Moreira MD, [facility] CPT-4: 94349 09/15/2018 ([id number]) 40078 EST. P ATIENT, LEVEL III Diagnosis: Dizziness and giddiness[ICD10: R42] Diagnosis: Allergic contact dermatitis due to plants, except food[ICD10: L23.7] Marixa Moreira MD, [facility] CPT-4: 45420 06/01/2018 ([id number]) 42232 EST. P ATIENT, LEVEL III Diagnosis: Allergic contact dermatitis due to plants, except food[ICD10: L23.7] Marixa Moreira MD, [facility] CPT-4: 13705 05/24/2018 ([id number]) 99092 EST. P ATIENT, LEVEL IV Diagnosis: Essential (primary) hypertension[ICD10: I10] Diagnosis: Atrophy of thyroid (acquired)[ICD10: E03.4] Diagnosis: Obstructive sleep apnea (adult) (pediatric)[ICD10: G47.33] Kailee Moreira MD, C CPT-4: 60902 05/19/2018 ([id number]) 85063 EST. P ATIENT, LEVEL IV Diagnosis: Essential (primary) hypertension[ICD10: I10] Diagnosis: Atrophy of thyroid (acquired)[ICD10: E03.4] Diagnosis: Low back pain[ICD10: M54.5] Kailee Moreira MD, [facility] CPT-4: 19643 01/12/2018 ([id number]) 37535 EST. P ATIENT, LEVEL III Diagnosis: Headache[ICD10: R51] Kailee Moreira MD, [facility] CPT-4: 14038 10/12/2017 ([id number]) 51768 EST. P ATIENT, LEVEL IV Diagnosis: Atrophy of thyroid (acquired)[ICD10: E03.4] Diagnosis: Essential (primary) hypertension[ICD10: I10] Diagnosis: Obstructive sleep apnea (adult) (pediatric)[ICD10: G47.33] Kailee Moreira MD, [facility] CPT-4: 64061 08/06/2017 ([id number]) 73709 EST. 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 CPT-4: 05577 05/13/2017 ([id number]) 43346 EST. P ATIENT, LEVEL IV Diagnosis: Atrophy of thyroid (acquired)[ICD10: E03.4] Diagnosis: Essential (primary) hypertension[ICD10: I10] Diagnosis: Encounter for screening for other musculoskeletal disorder[ICD10: Z13.828] Diagnosis: Low back pain[ICD10: M54.5] Diagnosis: Transient alteration of awareness[ICD10: R40.4] Kailee Moreira MD, C CPT-4: 28164 03/18/2017 ([id number]) 35015 EST. P ATIENT, LEVEL IV Diagnosis: Atrophy of thyroid (acquired)[ICD10: E03.4] Diagnosis: Essential (primary) hypertension[ICD10: I10] Diagnosis: Low back pain[ICD10: M54.5] Kailee Moreira MD, [facility] CPT-4: 89107 01/27/2017 ([id number]) 54353 EST. P ATIENT, LEVEL III Diagnosis: Acute recurrent maxillary sinusitis[ICD10: J01.01] Marixa Moreira MD, [facility] CPT-4: 40105 12/29/2016 ([id number]) 73749 EST. P ATIENT, LEVEL IV Diagnosis: Atrophy of thyroid (acquired)[ICD10: E03.4] Diagnosis: Essential (primary) hypertension[ICD10: I10] Kailee Moreira MD, [facility] CPT-4: 17794 11/19/2016 ([id number]) 32617 EST. P ATIENT, LEVEL IV Diagnosis: Atrophy of thyroid (acquired)[ICD10: E03.4] Diagnosis: Enterocolitis due to Clostridium difficile[ICD10: A04.7] Diagnosis: Essential (primary) hypertension[ICD10: I10] Kailee Moreira MD, [facility] CPT-4: 10010 08/13/2016 ([id number]) 33564 EST. P ATIENT, LEVEL IV Diagnosis: Essential (primary) hypertension[ICD10: I10] Diagnosis: Enterocolitis due to Clostridium difficile[ICD10: A04.7] Diagnosis: Hypothyroidism, unspecified[ICD10: E03.9] Diagnosis: Low back pain[ICD10: M54.5] Kailee Moreira MD, [facility] CPT-4: 85138 07/03/2016 ([id number]) 81742 EST. P ATIENT, LEVEL IV Diagnosis: Enterocolitis due to Clostridium difficile[ICD10: A04.7] Diagnosis: Lyme disease, unspecified[ICD10: A69.20] Kailee Moreira MD, [facility] CPT-4: 75644 05/07/2016 ([id number]) 44665 EST. P ATIENT, LEVEL IV Diagnosis: Generalized abdominal rigidity[ICD10: R19.37] Diagnosis: Diarrhea, unspecified[ICD10: R19.7] Diagnosis: Lyme disease, unspecified[ICD10: A69.20] Kailee Moreira MD, [facility] CPT-4: 52479 04/08/2016 ([id number]) 16374 EST. P ATIENT, LEVEL IV Diagnosis: Hypothyroidism, unspecified[ICD10: E03.9] Diagnosis: Lyme disease, unspecified[ICD10: A69.20] Diagnosis: Tachycardia, unspecified[ICD10: R00.0] Kailee Moreira MD, [facility] CPT-4: 67083 12/27/2015 ([id number]) 03313 EST. P ATIENT, LEVEL III Diagnosis: Essential (primary) hypertension[ICD10: I10] Diagnosis: Benign lipomatous neoplasm of skin and subcutaneous tissue of other sites[ICD10: D17.39] Diagnosis: Low back pain[ICD10: M54.5] Kailee Moreira MD, [facility] CPT-4: 86140 09/24/2015 ([id number]) 11237 EST. P ATIENT, LEVEL IV Diagnosis: Low back pain[ICD9: 724.2] Diagnosis: HYPOTHYROIDISM[ICD9: 244.9] Kailee Moreira MD, 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 05/25/2019 Patient Education: Patient Medication Summary Completed 05/25/2019 Patient Education: Hypertension Completed 05/25/2019 Visit Plan: Poison Magalys - pt is to u se topical treatments as directed. Pt is cleanse clothing in hot water with soap, and call if symptoms do not improve or if they worsen. 05/19/2019 Appointment[facility] (10 min) Simple 05/19/2019 Patient Education: Patient Medication Summary Completed 05/19/2019 Appointment: Kailee Moreira [facility]Ptel[facility] (30 min) Complex 05/02/2019 Visit Plan: Hypertension [...] is changed. 01/24/2019 Appointment: Kailee Moreira WPtel: [phone] [facility] (30 min) Complex 01/24/2019 Patient Education: Patient Medication Summary Completed 01/24/2019 Patient Education: Hypertension Completed 01/24/2019 Appointment: Kailee Moreira WPtel: [phone] [facility] (15 min) Moderate 01/19/2019 Appointment: Nurse Visit 01/14/2019 Visit Plan: Headache -nasal congest ion-refill fioricet for prn use-kenalog injection today in the office -call if symptoms do not resolve or if any worse-patient verbalized understanding of plan. 01/10/2019 Appointment: Marixa Lakhani WPtel: [phone] [phone] [place] (15 min) Moderate 01/10/2019 Patient Education: [...] home. 11/25/2018 Appointment: Kailee Moreira WPtel: [phone] [facility] (15 min) Moderate 11/25/2018 Patient Education: Patient [...] the chiropractor. 09/15/2018 Appointment: [phone] 30 min appointments only in this slot [...] surrogate. 09/10/2018 Appointment: [facility]iersten [phone] [facility] - Annual Wellness Visit 09/10/2018 Patient Education: Patient Medication Summary Completed 09/10/2018 Appointment: Injection 06/14/2018 Visit Plan: Contact dermatitis-disc ussed with Dr Moreira -rx for dexamethasone sent to patient's pharmacy and instructed on use-will also send rx for topical betamethsone -instructed patient to call if symptoms do not resolve or if any worse Vnocpvfpu-UPI-cpchmrco fluids-monitor blood pressure- call if dizziness does not resolve or if any worse-patient and verbalized understanding 06/01/2018 Appointment: Marixa Lakhani WPtel: [phone] (15 min) Moderate 06/01/2018 Patient Education: Patient Medication Summary Completed 06/01/2018 Visit Plan: Contact dermatitis due to poison magalys/oak-kenalog injection today- pt is to use topical treatments as directed. Pt is cleanse clothing in hot water with soap, and call if symptoms do not improve or if they worsen. 05/24/2018 Appointment: Marixa Lakhani WPtel: [phone] [phone] (15 min) Moderate 05/24/2018 Patient Education: Patient [...] when awakening. 05/19/2018 Appointment: Kailee Moreira WPtel: [facility] (30 min) Complex 05/19/2018 Patient Education: Patient [...] thighs bilaterally 01/12/2018 Appointment: Kailee Moreira WPtel: [facility] (15 min) Moderate 01/12/2018 Patient Education: Patient Medication Summary Completed 01/12/2018 Appointment: Kailee Moreira WPtel: [facility] (15 min) Moderate 12/02/2017 Visit Plan: Headache - recommended patient to use PRN Fioricet for headaches - call if not improving. 10/12/2017 Appointment: Kailee Moreira WPtel: [facility] (15 min) Moderate 10/12/2017 Patient Education: Patient [...] apnea - order humidification for cpap - [facility]- find out if they need [...] at home. 08/06/2017 Appointment: Kailee Moreira WPtel: [facility] [place] (15 min) Moderate 08/06/2017 Patient Education: Patient Medication Summary Completed 08/06/2017 Care Plan: Comp Metabolic Pending 08/06/2017 Care Plan: Tsh Pending 08/06/2017 Care Plan: Free T4 Pending 08/06/2017 Care Plan: Lipid Pending 08/06/2017 Care Plan: Cbc With Differential Pending 08/06/2017 Appointment: Kailee Moreira WPtel: [address] [place], [place] [phone] [place] (15 min) Moderate 07/21/2017 Visit Plan: [...] nursing staff call dr. schaeffer about aby appt Low blood pressure stop lisinopril. 05/13/2017 Appointment: Kailee Moreira WPtel: [phone] [facility] (15 min) Moderate 05/13/2017 Patient Education: Patient Medication Summary Completed 05/13/2017 Patient Education: Hypertension Completed 05/13/2017 Appointment: Kailee Moreira WPtel: [facility]66[facility] (15 min) Moderate 05/06/2017 Visit [...] care surrogate. 03/19/2017 Appointment: Kiersten Armando WPtel: [phone] [id number] [place] [address] - Annual Wellness Visit 03/19/2017 Patient Education: [...] levels of control. p [facility] at [facility] - water therapy for back eeg - needs ordered at hospital. 03/18/2017 Appointment: Ka[facility] Moreira [facility]Ptel: [phone] [place] (15 min) Moderate 03/18/2017 Patient Education: Patient [...] not improve. 01/27/2017 Appointment: Kailee Moreira WPtel: [phone] [place] [place] (15 min) Moderate 01/27/2017 Patient Education: Patient Medication Summary Completed 01/27/2017 Patient Education: Hypertension Completed 01/27/2017 Visit Plan: Sinusitis - Pt has acut e infection - pain in face, maxillary region, Pt informed to use decongestant, RX given to patient, sinus rinses also recommended. Call if symptoms do not show improvement. 12/29/2016 Appointment: Marixa Lakhani WPtel: [phone] [phone] [place] (30 min) Complex 12/29/2016 Patient Education: [...] of control. 11/19/2016 Appointment: Kailee Moreira WPtel: [facility] (15 min) Moderate 11/19/2016 Patient Education: Patient [...] have improved. 08/13/2016 Appointment: Kailee Moreira WPtel: [facility] (15 min) Moderate 08/13/2016 Patient Education: Patient Medication Summary Completed 08/13/2016 Patient Education: Hypertension Completed 08/13/2016 Appointment: Kailee Moreira WPtel: [facility] [place] (30 min) Complex 07/31/2016 Visit Plan: Hypertension [...] of control. 07/03/2016 Appointment: Kailee Moreira WPtel: [facility] (15 min) Moderate 07/03/2016 Patient Education: Patient Medication Summary Completed 07/03/2016 Patient Education: Hypertension Completed 07/03/2016 Visit Plan: Cdiff colitis - pt to h ave repeat testing - if positive will have to repeat treatment. Continue with probiotic. Lymes disease - continue with treatment per Dr. Carrillo. alex sample x 18 days given to patient. 05/07/2016 Appointment: Kailee Moreira WPtel: [facility] (15 min) Moderate 05/07/2016 Patient Education: Patient Medication Summary Completed 05/07/2016 Visit Plan: Diarrhea - suspect the diarrhea is Cdiff related - check stool and treat with flagyl, probiotic to increase to three times daily - continue to hold iv antibiotic. Lyme disease - treating with iv antibiotics - on hold while she has diarrhea. 04/08/2016 Appointment: Kailee Moreira WPtel: [phone] [place] [place] (15 min) Moderate 04/08/2016 Patient Education: Patient Medication Summary Completed 04/08/2016 Appointment: Kailee Moreira WPtel: [phone] [facility] (15 min) Moderate 04/03/2016 Visit Plan: Medicare [...] Completed 03/11/2016 Appointment: Kailee Moreira WPtel: [phone] [place] (15 min) Moderate 01/24/2016 Visit Plan: Tachycardia [...] control. 12/27/2015 Appointment: Kailee Moreira WPtel: [phone] (15 min) Moderate 12/27/2015 Patient Education: Patient Medication Summary Completed 12/27/2015 Visit Plan: Hypertension - jorge benedicted - continue with current medications, continue with [...] not improve. 06/26/2015 Appointment: Kailee Moreira WPtel: [address] [place], [place] [phone] (15 min) Moderate 06/26/2015 Patient Education: Patient [...] spine Lymes disease-sees Dr Carrillo-[facility] specialist in [place], [place] CAD-HX [id number] by Dr Hyde 04/10/2015 Appointment: (S) New [...] do not resolve or if any worse [id number] fluids-monitor blood pressure-call if dizziness does not [...] apnea - order humidification for cpap - [facility] patient/[facility]- find out if they need [...] spine Lymes disease-sees Dr Carrillo-[facility] specialist in [place], [place] CAD-HX [id number] by Dr Hyde . Diarrhea - discuss [...] previous levels of control. physical therapy at [facility] - water therapy for back eeg - [...] - continue with treatment per Dr. Carrillo. deplin sample x 18 days given to patient. [...]
--- OUTSIDE RECORDS SUMMARY | 2020-05-05 11:50 | XMS REPORT | CCD ---
Author Author Emily Lakhani Organization [facility] Address [address] [place] [address] Phone Care Team Providers Care Machine Ii Trimmer Name Role Phone PP Unavailable CCM Unavailable Summary Purpose Interface Exchange Insurance Providers Payer name Policy type / Coverage type Covered republican ID Effective Begin Date Effective End Date WPS Medicare Part B Medicare Part B [id number] Unknown [employer] Medicare Part B [id number] Unknown Family history Mother Diagnosis Age At [...] Retir ed 04/10/[address]: 601770120 Never smoker 04/10/[address]: 094838815 Never drinks alcohol 04/10/2015 Allergies, Adverse Reactions, [...] ICD-9: 401.9 ICD-10: I10 Active 04/09/2015 Unknown Headache ICD-9: 784.0 ICD-10: R51 Active [...] ICD-9: V70.0 ICD-10: Z00.01 Active 03/10/2016 Unknown Allergic contact lupe matitis due to plants, except food ICD-9: 692.6 ICD-10: L23.7 Active 05/24/2018 Unknown Dizziness and giddiness ICD-9: 780.4 ICD-10: R42 Active 06/01/2018 Unknown Obstructive sleep ap bandar (adult) (pediatric) ICD-9: 327.23 ICD-10: G47.33 Active 08/06/2017 Unknown 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, intractable, without status epilepticus ICD- 9: 345.11 ICD-10: G40.319 Active 05/13/2017 Unknown Encounter for screen ing for other [...] hypertension ICD-9: 401.9 ICD-10: I10 04/09/2015 Active Headache ICD-9: 784.0 ICD-10: R51 10/12/2017 [...] findings ICD-9: V70.0 ICD-10: Z00.01 03/10/2016 Active Allergic contact lupe matitis due to plants, except food ICD-9: 692.6 ICD-10: L23.7 05/24/2018 Active Dizziness and giddiness ICD-9: 780.4 ICD-10: R42 06/01/2018 Active Obstructive sleep ap bandar (adult) (pediatric) ICD-9: 327.23 ICD-10: G47.33 08/06/2017 Active 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, intractable, without status epilepticus ICD- 9: 345.11 ICD-10: G40.319 05/13/2017 Active Encounter for screen ing for other [...] Date Stop Date Sta tus Fill Instructions Prozac 10 mg capsule RxNorm: 890948 1 Capsule(s) PO daily 05/06/2019 09/02/2019 Active Prozac 10 mg capsule RxNorm: 758073 1 Capsule(s) PO daily 05/06/2019 05/05/2019 Inactive estradiol 0.01% (0.1 mg/gram) vaginal cream RxNorm: 400324 1 GRAM(S) VAG BIW 03/31/2019 03/24/2020 Ac tive estradiol 0.01% (0.1 mg/gram) vaginal cream RxNorm: 712935 1 GRAM(S) VAG BIW 02/21/2019 08/13/2020 Ac tive Ventolin HFA 90 mcg/ actuation aerosol inhaler RxNorm: 4648217 1 INH TID as needed dyspnea 01/24/2019 08/21/2019 Active Fioricet 50 mg-300 m g-40 mg capsule RxNorm: 8420786 1 Capsule(s) PO Q8 P RN as needed for headache 01/10/2019 No Stop Date Active dexamethasone 4 mg t ablet RxNorm: 857411 1 Tablet(s) PO daily 01/10/2019 01/09/2019 Inactive to be started on 01-11-19 Kenalog 40 mg/mL sadiq pension for injection RxNorm: 7170548 Milliliter(s) Inj 01/10/2019 01/10/2019 In active dexamethasone 4 mg t ablet RxNorm: 387723 1 Tablet(s) PO daily 01/10/2019 01/14/2019 Inactive to be started on 01-11-19 cyclobenzaprine 5 mg tablet RxNorm: 020980 1 Tablet(s) PO TID 12/14/2018 12/20/2018 Inactive cyclobenzaprine 5 mg tablet RxNorm: 813483 1 Tablet(s) PO TID 12/14/2018 12/13/2018 Inactive [place] Thyroid 90 mg tablet RxNorm: 077702 Tablet(s) 1/2 TABLET( S) PO DAILY 11/18/2018 02/10/2020 Ac tive [place] Thyroid 60 mg tablet RxNorm: 203318 1 Tablet(s) PO 3 x we ek Leonel Dominguez 11/17/2018 11/17/2018 In active hold until she is ready to refill [place] Thyroid 30 mg tablet RxNorm: 772450 1 Tablet(s) PO 4 time s a week Thu SAT 11/17/2018 11/16/2018 Inactive Please fill now- she will use her curren t supply of 60mg until she needs refill [place] Thyroid 30 mg tablet RxNorm: 860228 1 Tablet(s) PO 4 time s a week Thu SAT 11/17/2018 11/17/2018 Inactive Please fill now- she will use her curren t supply of 60mg until she needs refill Flagyl 500 mg tablet RxNorm: 670450 1 Tablet(s) PO TID 2018 10/17/2018 Inactive Flagyl 500 mg tablet RxNorm: 438695 1 Tablet(s) PO TID 10/06/2018 10/05/2018 Inactive Flagyl 500 mg tablet RxNorm: 634201 1 Tablet(s) PO TID 10/06/2018 10/10/2018 Inactive cefdinir 300 mg capsule RxNorm: 280862 1 Capsule(s) PO BID 09/29/2018 10/05/2018 Inactive cefdinir 300 mg capsule RxNorm: 020273 1 Capsule(s) PO BID 09/29/2018 09/28/2018 Inactive estradiol 0.01% (0.1 mg/gram) vaginal cream RxNorm: 737604 1 Gram(s) VAG BIW 09/15/2018 02/20/2019 In active Imitrex 50 mg tablet RxNorm: 293579 TAKE WITH ONSET OF MIGRAINE- MAY TAKE AN ADDITIONAL DOSE IF NO RELIEF OF HEADACHE IN 1 HOUR- MAX OF 3 DOSES IN 24 HOURS Tablet(s) 06/14/2018 No Stop Date Active betamethasone gwendolyn te 0.1 % topical cream RxNorm: 590343 1 Application TOP TID 06/01/2018 06/10/2018 In active dexamethasone 4 mg t ablet RxNorm: 537321 1 Tablet(s) PO daily 06/01/2018 06/05/2018 Inactive Kenalog 40 mg/mL sadiq pension for injection RxNorm: 4487821 1.5 Milliliter(s) In j 05/24/2018 05/24/2018 In active amitriptyline 10 mg tablet RxNorm: 161485 1/2 TO 1 TABLET(S) PO QPM 01/21/2018 09/14/2018 Inactive [place] Thyroid 60 mg tablet RxNorm: 208345 1 Tablet(s) PO daily 01/12/2018 11/16/2018 Inactive carvedilol 3.125 mg tablet RxNorm: 464656 1 Tablet(s) PO BID 10/12/2017 No Stop Date Active Fiorinal-Codeine #3 30 mg-50 mg-325 mg-40 mg capsule RxNorm: 474888 1 Capsule(s) PO BID 10/12/2017 11/10/2017 Inactive progesterone microni zed 100 mg capsule RxNorm: 267623 1 Capsule(s) PO daily on days 1- 25 of each month 10/12/2017 01/11/2018 Inactive [place] Thyroid 90 mg tablet RxNorm: 181784 1/2 Tablet(s) PO melinda y 1/2 TABLET(S) PO DAILY 08/06/2017 01/11/2018 Inactive [place] Thyroid 90 mg tablet RxNorm: 756535 1/2 TABLET(S) PO DAILY 07/14/2017 08/05/2017 Inactive Keppra 500 mg tablet RxNorm: 745151 1 Tablet(s) PO BID 05/13/2017 08/05/2017 Inactive Deplin (algal oil) 1 5 mg-90.314 mg capsule RxNorm: TAKE ONE CAPSULE BY MOUTH O NE TIME DAILY 05/13/2017 01/11/2018 Inactive Keppra 250 mg tablet RxNorm: 810838 1 Tablet(s) PO daily 04/23/2017 04/22/2017 Inactive take 1 tab qd x 1 week then increase to BID Keppra 250 mg tablet RxNorm: 267722 1 Tablet(s) PO daily 04/23/2017 05/12/2017 Inactive take 1 tab qd x 1 week then increase to BID cyclobenzaprine 5 mg tablet RxNorm: 323590 1 Tablet(s) PO TID as needed 02/03/2017 02/22/2017 In active cyclobenzaprine 5 mg tablet RxNorm: 151809 1 Tablet(s) PO TID as needed 02/03/2017 02/02/2017 In active [place] Thyroid 90 mg tablet RxNorm: 698989 1/2 Tablet(s) PO daily 11/19/2016 03/18/2017 Inactive amitriptyline 10 mg tablet RxNorm: 324992 1/2 to 1 Tablet(s) PO QPM 11/19/2016 11/13/2017 Inactive fluconazole 50 mg ta blet RxNorm: 419299 1 Tablet(s) PO daily 08/20/2016 09/02/2016 Inactive [place] Thyroid 90 mg tablet RxNorm: 885538 1/2 Tablet(s) PO daily 08/11/2016 11/18/2016 Inactive Flagyl 500 mg tablet RxNorm: 413368 1 Tablet(s) PO TID 07/28/2016 01/11/2018 Inactive Flagyl 500 mg tablet RxNorm: 509962 1 Tablet(s) PO TID 07/17/2016 07/27/2016 Inactive amitriptyline 10 mg tablet RxNorm: 519067 1/2 to 1 Tablet(s) PO QPM 07/03/2016 10/30/2016 Inactive metronidazole 500 mg tablet RxNorm: 728454 1 Tablet(s) PO QID 07/03/2016 07/12/2016 Inactive amitriptyline 25 mg tablet RxNorm: 602319 1/2 -1 Tablet(s) PO Q HS as needed insomnia 06/26/2016 07/02/2016 Inactive vancomycin 125 mg ca psule RxNorm: 718023 1 Capsule(s) PO QID 06/20/2016 06/29/2016 Inactive [place] Thyroid 30 mg tablet RxNorm: 327847 1.5 Tablet(s) PO daily 06/20/2016 06/19/2016 Inactive [place] Thyroid 30 mg tablet RxNorm: 982444 1.5 Tablet(s) PO daily 06/20/2016 08/10/2016 Inactive fluconazole 50 mg ta blet RxNorm: 866237 1 Tablet(s) PO daily 06/16/2016 08/19/2016 Inactive amitriptyline 25 mg tablet RxNorm: 951621 1/2 -1 Tablet(s) PO Q HS as needed insomnia 06/12/2016 06/11/2016 Inactive amitriptyline 25 mg tablet RxNorm: 805245 1/2 -1 Tablet(s) PO Q HS as needed insomnia 06/12/2016 06/25/2016 Inactive vancomycin 125 mg ca psule RxNorm: 862770 1 Capsule(s) PO QID 06/12/2016 06/19/2016 Inactive fluconazole 50 mg ta blet RxNorm: 167526 1 Tablet(s) PO daily 06/12/2016 06/15/2016 Inactive Diflucan 150 mg tablet RxNorm: 231361 1 Tablet(s) PO daily 06/05/2016 06/09/2016 Inactive Deplin (algal oil) 1 5 mg-90.314 mg capsule RxNorm: 1 Capsule(s) PO daily 06/05/2016 06/04/2016 In active Diflucan 150 mg tablet RxNorm: 101349 1 Tablet(s) PO daily 06/05/2016 06/04/2016 Inactive Deplin (algal oil) 1 5 mg-90.314 mg capsule RxNorm: 1 Capsule(s) PO daily 06/05/2016 05/12/2017 In active nystatin 500,000 uni t tablet RxNorm: 803555 4 Tablet(s) PO daily 05/21/2016 09/17/2016 Inactive Vitamin D3 5,000 uni t tablet RxNorm: 899420 Tablet(s) PO daily 05/07/2016 No Stop Date Active nystatin 500,000 uni t tablet RxNorm: 950600 1 Tablet(s) PO Q4H 05/07/2016 05/20/2016 Inactive fluconazole 100 mg t ablet RxNorm: 577349 1 Tablet(s) PO daily 05/07/2016 06/11/2016 Inactive progesterone microni zed 100 mg capsule RxNorm: 463072 3 Capsule(s) PO daily on days 1- 25 of each month 05/07/2016 2017 Inactive metronidazole 500 mg tablet RxNorm: 070213 1 Tablet(s) PO TID 04/30/2016 05/09/2016 Inactive metronidazole 500 mg tablet RxNorm: 531127 1 Tablet(s) PO TID 04/30/2016 04/29/2016 Inactive vancomycin 125 mg ca psule RxNorm: 491535 1 Capsule(s) PO QID 04/29/2016 05/08/2016 Inactive vancomycin 125 mg ca psule RxNorm: 471310 1 Capsule(s) PO QID 04/29/2016 04/28/2016 Inactive Flagyl 500 mg tablet RxNorm: 553434 1 Tablet(s) PO TID 04/09/2016 04/08/2016 Inactive Flagyl 500 mg tablet RxNorm: 700373 1 Tablet(s) PO TID 04/09/2016 04/22/2016 Inactive carvedilol 3.125 mg tablet RxNorm: 696281 1 Tablet(s) PO BID 04/08/2016 2017 Inactive [place] Thyroid 60 mg tablet RxNorm: 617387 Tablet(s) PO 1 Tablet (s) daily 01/31/2016 06/19/2016 In active Pt request 90 day supply 11/23/2015 11:1 1:54 AM [place] Thyroid 30 mg tablet RxNorm: 583034 1 Tablet(s) daily 01/28/2016 01/30/2016 Inactive Pt request 90 day supply 11/23/2015 11:1 1:54 AM [place] Thyroid 30 mg tablet RxNorm: 359356 1 Tablet(s) daily 01/21/2016 01/27/2016 Inactive Pt request 90 day supply 11/23/2015 11:1 1:54 AM [place] Thyroid 30 mg tablet RxNorm: 239247 Tablet(s) TAKE ONE AN D ONE-HALF (45 MG) TABLET BY MOUTH EVERY DAY 01/02/2016 01/20/2016 Inactive Pt request 90 day supply 11/23/2015 11:11:54 AM Xylocaine 20 mg/mL ( 2 %) injection solution RxNorm: 1832150 2.5 Milliliter(s) In j BID with cefepime 12/27/2015 01/25/2016 Inactive cefepime 1 gram solu tion for injection RxNorm: 3499304 Inj 12/1012/27/2015 Inactive [place] Thyroid 30 mg tablet RxNorm: 061082 TAKE ONE TABLET BY [facility] EVERY DAY 11/23/2015 01/01/2016 In active Pt request 90 day supply 11/23/2015 11:1 1:54 AM Voltaren 1 % topical gel RxNorm: 988100 2 Gram(s) TOP QID 09/24/2015 12/26/2015 Inactive cyclobenzaprine 10 m g tablet RxNorm: 106471 1 Tablet(s) PO Q6 as needed 08/27/2015 05/06/2016 In active [place] Thyroid 30 mg tablet RxNorm: 330434 1 Tablet(s) PO daily 06/21/2015 06/20/2015 Inactive [place] Thyroid 30 mg tablet RxNorm: 133000 1 Tablet(s) PO daily 06/21/2015 11/22/2015 Inactive Synthroid 25 mcg tablet RxNorm: 182745 1 Tablet(s) PO daily 06/07/2015 06/06/2015 Inactive KASEY-1 Synthroid 25 mcg tablet RxNorm: 986270 1 Tablet(s) PO daily 06/07/2015 06/20/2015 Inactive KSAEY-1 ofloxacin 0.3 % ear drops RxNorm: 756432 1-2 Drop(s) OTIC OU Q 4H as needed No Start Date Active Aspirin Low Dose 81 mg tablet,delayed release RxNorm: 771469 1 Tablet(s) PO daily No Start Date Active tyrosine (bulk) powder RxNorm: 1 Miscellaneous dash every am No Start Date Active arginine (L-arginine ) oral RxNorm: 1091 oral No Sta rt Date Active glutathione RxNorm: 4890 miscellaneous No Start Date Active Plaquenil 200 mg tablet RxNorm: 486168 1 Tablet(s) PO BID No Start Date 05/19/2016 Inactive fluconazole 100 mg t ablet RxNorm: 812805 1/2 Tablet(s) PO daily No Start Date 05/06/2016 Inactive fluconazole 150 mg t ablet RxNorm: 683424 1 Tablet(s) PO QW x4 No Start Date 12/26/2015 Inactive progesterone microni zed 100 mg capsule RxNorm: 415330 2 Capsule(s) PO daily No Start Date 05/06/2016 Inactive nystatin 500,000 uni t tablet RxNorm: 524992 1 Tablet(s) PO QID No Start Date 05/06/2016 Inactive cyclobenzaprine 10 m g tablet RxNorm: 317423 1 Tablet(s) PO Q6 as needed No Start Date 08/26/2015 Inactive vitamin K oral RxNorm: 8308 oral No Start Date 12/26/2015 Inactive carvedilol 3.125 mg tablet RxNorm: 056679 1 Tablet(s) PO daily No Start Date 04/07/2016 Inactive lisinopril 5 mg tablet RxNorm: 010564 1 Tablet(s) PO daily No Start Date 05/12/2017 Inactive azithromycin 250 mg tablet RxNorm: 288779 1 Tablet(s) PO daily will incrase to 2 per day No Start Date 12/26/2015 Inactive Probiotic 4X oral RxNorm: 9102187 oral No Start Date 01/07/2016 Inactive Imitrex 50 mg tablet RxNorm: 724188 TAKE WITH ONSET OF MIGRAINE- MAY TAKE AN ADDITIONAL DOSE IF NO RELIEF OF HEADACHE IN 1 HOUR- MAX OF 3 DOSES IN 24 HOURS No Start Date 06/13/2018 Inactive Vitamin D3 1,000 uni t tablet RxNorm: 359057 Tablet(s) PO daily No Start Date 05/06/2016 Inactive progesterone microni zed 100 mg capsule RxNorm: 415178 3 Capsule(s) PO daily rx from [facility] No Start Date 12/26/2015 Inactive lorazepam 0.5 mg tablet RxNorm: 155589 1/2-1 Tablet(s) PO daily as needed No Start Date 03/10/2016 Inactive Multiple Vitamin oral RxNorm: 83168 oral No Start Date 05/06/2016 Inactive Medication Administered Medication Codes Instruc tions Start Date Status Kenalog 40 mg/mL suspension for injection RxNorm: 3076865 Milliliter 01/10/2019 No longer Active Kenalog 40 mg/mL suspension for injection RxNorm: 1226593 1.5Milliliter 05/24/2018 No longer Active cefepime 1 gram solution for injection RxNorm: 0585923 12/27/2015 No longer A ctive Immunizations No Immunization data Assessments Condition Codes Effectiv e Dates Headache ICD-10: R51 ICD-9: 784.0 01/24/2019 Essential (primary) hypertension ICD -10: I10 ICD-9: 401.9 01/24/2019 Atrophy of thyroid (acquired) ICD-10 : E03.4 ICD-9: 244.8 01/24/2019 Other forms of dyspnea ICD-10: R06.0 [...] and giddiness ICD-10: R42 ICD-9: 780.4 06/01/2018 Allergic contact dermatitis due to plants, except food ICD-10: L23.7 ICD-9: 692.6 06/01/2018 Obstructive sleep apnea (adult) (pediatric) ICD-10: [...] Reason For Visit Effective Dates Notes hypertension 01/24/2019 headache 01/10/2019 diarrhea 11/25/2018 hypertension [...] Code Result Date Vitamin D 25 Oh [id number] VITAMIN D, 25 HYDROXY 51.28 ng/mL 02/18/2019 Tsh Ord6 TSH (3rd IS) 0.59 uIU/mL 02/18/2019 Free T4 Ols113 FREE T4 0.64 ng/dL 02/18/2019 Lipid Ord30 [...] 30.4 pg 02/18/2019 Cbc With Differential Ord2 Boundary% 15.5 % 02/18/2019 Cbc With Differential Ord2 [...] 1.30 K/ul 02/18/2019 Cbc With Differential Ord2 Boundary ABS# 0.7 K/ul 02/18/2019 Cbc With Differential Ord2 Eos ABS# 0.2 K/ul 02/18/2019 Cbc With Differential Ord2 Baso ABS# 0.0 K/ul 02/18/2019 Ferritin Ord22 FERRITIN 31.1 ng/mL 02/18/2019 Comp Metabolic Dht959 NA 145 mEq/L 06/14/2018 Comp Metabolic Qvz543 K 4.0 mEq/L 06/14/2018 Comp Metabolic Hni181 CL 106 mEq/L 06/14/2018 Comp Metabolic Cnu195 CO2 31.0 mEq/L 06/14/2018 Comp Metabolic Mus420 AN ION GAP 12 06/14/2018 Comp Metabolic Pkd348 GL UCOSE 88 mg/dL 06/14/2018 Comp Metabolic Bef463 Cr eat 0.7 mg/dL 06/14/2018 Comp Metabolic Ocy959 eG FR 92 ml/min/1.73m2 06/14 Comp Metabolic Wtc160 BUN 9 mg/dL 06/14/2018 Comp Metabolic Jzq817 B/ C Ratio 13.6 Ratio 06/14/2018 Comp Metabolic Hld574 CA LCIUM 9.0 mg/dL 06/14/2018 Comp Metabolic Udh728 AL K PHOS 36 U/L 06/14/2018 Comp Metabolic Kmo163 T(SGOT) 21 U/L 06/14/2018 Comp Metabolic Ucw068 AL T(SGPT) 22 U/L 06/14/2018 Comp Metabolic Sqd524 BI LI T 0.3 mg/dL 06/14/2018 Comp Metabolic Ieo028 AL BUMIN 3.8 g/dL 06/14/2018 Comp Metabolic Dlr639 TP RO 5.8 g/dL 06/14/2018 Comp Metabolic Wee453 GL OB 2.0 g/dL 06/14/2018 Comp Metabolic Wje931 A/ G Ratio 2.0 Ratio 06/14/2018 Comp Metabolic Mzz097 Os mo 287 mOsmo 06/14/2018 Free T4 Ukg270 FREE T4 0.66 ng/dL 06/14/2018 Tsh Ord6 [...] 29.8 pg 06/14/2018 Cbc With Differential Ord2 Boundary% 13.9 % 06/14/2018 Cbc With Differential Ord2 [...] 1.40 K/ul 06/14/2018 Cbc With Differential Ord2 Boundary ABS# 0.6 K/ul 06/14/2018 Cbc With Differential Ord2 Eos ABS# 0.2 K/ul 06/14/2018 Cbc With Differential Ord2 Baso ABS# 0.0 K/ul 06/14/2018 Free T4 Wlb435 FREE T4 0.63 ng/dL 01/05/2018 Lipid Ord30 CHOL 246 mg/dL 01/05/2018 Lipid Ord30 HDL 79.0 mg/dl 01/05/2018 Lipid Ord30 TRIG 124 mg/dL 01/05/2018 Lipid Ord30 LDL 142 mg/dL 01/05/2018 Lipid Ord30 C/HDL 3.1 Ratio 01/05/2018 Tsh Ord6 TSH (3rd IS) 1.48 uIU/mL 01/05/2018 Tsh Ord6 hTSH II 2.03 uIU/mL 08/07/2017 Comp Metabolic Owx399 NA 142 mEq/L 08/07/2017 Comp Metabolic Swu866 K 4.1 mEq/L 08/07/2017 Comp Metabolic Hyi566 CL 105 mEq/L 08/07/2017 Comp Metabolic Fcq462 CO2 27.0 mEq/L 08/07/2017 Comp Metabolic Hww914 AN ION GAP 14 08/07/2017 Comp Metabolic Zlq569 GL UCOSE 89 mg/dL 08/07/2017 Comp Metabolic Hfe936 Cr eat 0.7 mg/dL 08/07/2017 Comp Metabolic Hec258 eG FR 86 ml/min/1.73m2 08/07 Comp Metabolic Bbw294 BUN 16 mg/dL 08/07/2017 Comp Metabolic Kju782 B/ C Ratio 22.9 Ratio 08/07/2017 Comp Metabolic Rhw573 CA LCIUM 9.8 mg/dL 08/07/2017 Comp Metabolic Uov556 AL K PHOS 41 U/L 08/07/2017 Comp Metabolic Qei147 T(SGOT) 26 U/L 08/07/2017 Comp Metabolic Ard681 AL T(SGPT) 21 U/L 08/07/2017 Comp Metabolic Grt383 BI LI T 0.5 mg/dL 08/07/2017 Comp Metabolic Oud449 AL BUMIN 4.3 g/dL 08/07/2017 Comp Metabolic Cff108 TP RO 6.6 g/dL 08/07/2017 Comp Metabolic Uym616 GL OB 2.3 g/dL 08/07/2017 Comp Metabolic Zht883 A/ G Ratio 1.9 Ratio 08/07/2017 Comp Metabolic Hpc380 Os mo 284 mOsmo 08/07/2017 Free T4 Ppr573 FREE T4 0.64 ng/dL 08/07/2017 Lipid Ord30 [...] 30.3 pg 08/07/2017 Cbc With Differential Ord2 Boundary% 13.9 % 08/07/2017 Cbc With Differential Ord2 [...] 1.49 K/ul 08/07/2017 Cbc With Differential Ord2 Boundary ABS# 0.6 K/ul 08/07/2017 Cbc With Differential [...] 30.5 pg 11/20/2016 Cbc With Differential Ord2 Boundary% 10.8 % 11/20/2016 Cbc With Differential Ord2 [...] 1.62 K/ul 11/20/2016 Cbc With Differential Ord2 Boundary ABS# 0.5 K/ul 11/20/2016 Cbc With Differential Ord2 Eos ABS# 0.2 K/ul 11/20/2016 Cbc With Differential Ord2 Baso ABS# 0.0 K/ul 11/20/2016 Free T4 Qld655 FREE T4 0.80 ng/dL 11/20/2016 Tsh Ord6 hTSH II 1.35 uIU/mL 11/20/2016 Comp Metabolic Vba102 NA 139 mEq/L 11/20/2016 Comp Metabolic Aba172 K 3.9 mEq/L 11/20/2016 Comp Metabolic Uvf137 CL 103 mEq/L 11/20/2016 Comp Metabolic Iim975 CO2 30.0 mEq/L 11/20/2016 Comp Metabolic Mtr629 AN ION GAP 10 11/20/2016 Comp Metabolic Hoj120 GL UCOSE 85 mg/dL 11/20/2016 Comp Metabolic Wum018 Cr eat 0.7 mg/dL 11/20/2016 Comp Metabolic Ywv359 eG FR 93 ml/min/1.73m2 11/20 Comp Metabolic Aqk062 BUN 12 mg/dL 11/20/2016 Comp Metabolic Zhn136 B/ C Ratio 18.2 Ratio 11/20/2016 Comp Metabolic Lwk617 CA LCIUM 9.1 mg/dL 11/20/2016 Comp Metabolic Fbo011 AL K PHOS 34 U/L 11/20/2016 Comp Metabolic Tfu207 T(SGOT) 18 U/L 11/20/2016 Comp Metabolic Drd004 AL T(SGPT) 14 U/L 11/20/2016 Comp Metabolic Tay628 BI LI T 0.5 mg/dL 11/20/2016 Comp Metabolic Xto516 AL BUMIN 4.2 g/dL 11/20/2016 Comp Metabolic Zgc276 TP RO 6.3 g/dL 11/20/2016 Comp Metabolic Qxu175 GL OB 2.1 g/dL 11/20/2016 Comp Metabolic Okh139 A/ G Ratio 2.0 Ratio 11/20/2016 Comp Metabolic Jgf911 Os mo 277 mOsmo 11/20/2016 Lipid Ord30 CHOL 189 mg/dL 11/20/2016 Lipid Ord30 HDL 81.0 mg/dl 11/20/2016 Lipid Ord30 TRIG 77 mg/dL 11/20/2016 Lipid Ord30 LDL 93 mg/dL 11/20/2016 Lipid Ord30 C/HDL 2.3 Ratio 11/20/2016 Testosterone Free Direct [id number] FREE TESTOSTERONE 0.7 pg/mL 10/06/2016 Estradiol 351239 ESTRADI OL 5.9 pg/mL 10/03/2016 Cortisol 786364 CORTISOL 23 ug/dL 10/03/2016 Progesterone Lmk256 Prog 17.38 ng/mL 10/01/2016 Free T4 Ycv472 FREE T4 0.66 ng/dL 08/13/2016 Tsh Ord6 hTSH II 0.99 uIU/mL 08/13/2016 Testosterone Free Direct [id number] FREE TESTOSTERONE <0.2 pg/mL 07/05/2016 Estradiol 456117 ESTRADI OL <5.0 pg/mL 07/03/2016 Progesterone Nkv500 Prog 23.37 ng/mL 07/02/2016 Tsh Ord6 hTSH II 0.24 uIU/mL 06/17/2016 Free T4 Dkk120 FREE T4 0.86 ng/dL 06/17/2016 Estradiol 107321 ESTRADI OL <5.0 pg/mL 05/21/2016 Comp Metabolic Mkj895 NA 140 mEq/L 05/20/2016 Comp Metabolic Pya667 K 4.1 mEq/L 05/20/2016 Comp Metabolic Dcs261 CL 106 mEq/L 05/20/2016 Comp Metabolic Lef849 CO2 26.0 mEq/L 05/20/2016 Comp Metabolic Bxw293 AN ION GAP 12 05/20/2016 Comp Metabolic Dht433 GL UCOSE 81 mg/dL 05/20/2016 Comp Metabolic Thr128 Cr eat 0.5 mg/dL 05/20/2016 Comp Metabolic Ucv132 eG FR 119 ml/min/1.73m2 05/09 Comp Metabolic Xqi741 BUN 15 mg/dL 05/20/2016 Comp Metabolic Arl604 B/ C Ratio 28.3 Ratio 05/20/2016 Comp Metabolic Ktt138 CA LCIUM 8.9 mg/dL 05/20/2016 Comp Metabolic Pfo773 AL K PHOS 36 U/L 05/20/2016 Comp Metabolic Qho370 T(SGOT) 25 U/L 05/20/2016 Comp Metabolic Gbt022 AL T(SGPT) 23 U/L 05/20/2016 Comp Metabolic Bfl249 BI LI T 0.4 mg/dL 05/20/2016 Comp Metabolic Mpo323 AL BUMIN 3.7 g/dL 05/20/2016 Comp Metabolic Bay936 TP RO 5.9 g/dL 05/20/2016 Comp Metabolic Nge408 GL OB 2.2 g/dL 05/20/2016 Comp Metabolic Oic575 A/ G Ratio 1.7 Ratio 05/20/2016 Comp Metabolic Ypa213 Os mo 279 mOsmo 05/20/2016 Progesterone Iks456 Prog 8.44 ng/mL 05/20/2016 Cbc With Differential [...] 30.2 pg 05/20/2016 Cbc With Differential Ord2 Boundary% 13.0 % 05/20/2016 Cbc With Differential Ord2 [...] 0.85 K/ul 05/20/2016 Cbc With Differential Ord2 Boundary ABS# 0.6 K/ul 05/20/2016 Cbc With Differential [...] collection if refrigerated) 05/20/2016 Testosterone Free Direct [id number] FREE TESTOSTERONE 0.6 pg/mL 05/19/2016 Estradiol 324990 ESTRADI OL <5.0 pg/mL 05/16/2016 Comp Metabolic Gtx068 NA 140 mEq/L 05/15/2016 Comp Metabolic Trm335 K 3.8 mEq/L 05/15/2016 Comp Metabolic Oiu833 CL 106 mEq/L 05/15/2016 Comp Metabolic Cxg500 CO2 26.0 mEq/L 05/15/2016 Comp Metabolic Mcg568 AN ION GAP 12 05/15/2016 Comp Metabolic Wpl407 GL UCOSE 77 mg/dL 05/15/2016 Comp Metabolic Neu658 Cr eat 0.5 mg/dL 05/15/2016 Comp Metabolic Wpv329 eG FR 144 ml/min/1.73m2 05/2016 Comp Metabolic Fak406 BUN 18 mg/dL 05/15/2016 Comp Metabolic Tvt136 B/ C Ratio 40.0 Ratio 05/15/2016 Comp Metabolic Aqj108 CA LCIUM 8.8 mg/dL 05/15/2016 Comp Metabolic Xbd681 AL K PHOS 28 U/L 05/15/2016 Comp Metabolic Ywv443 T(SGOT) 19 U/L 05/15/2016 Comp Metabolic Sjm787 AL T(SGPT) 19 U/L 05/15/2016 Comp Metabolic Foz274 BI LI T 0.5 mg/dL 05/15/2016 Comp Metabolic Iyx219 AL BUMIN 3.6 g/dL 05/15/2016 Comp Metabolic Ncc567 TP RO 5.6 g/dL 05/15/2016 Comp Metabolic Kbm755 GL OB 2.0 g/dL 05/15/2016 Comp Metabolic Xiv086 A/ G Ratio 1.8 Ratio 05/15/2016 Comp Metabolic Mhq364 Os mo 280 mOsmo 05/15/2016 Progesterone Ngg030 Prog 9.08 ng/mL 05/15/2016 Cbc With Differential [...] 29.9 pg 05/15/2016 Cbc With Differential Ord2 Boundary% 14.1 % 05/15/2016 Cbc With Differential Ord2 [...] 1.42 K/ul 05/15/2016 Cbc With Differential Ord2 Boundary ABS# 0.6 K/ul 05/15/2016 Cbc With Differential [...] Ord28 U-Com None 05/15/2016 Testosterone Free Direct [id number] FREE TESTOSTERONE 0.2 pg/mL 05/09/2016 Estradiol 999729 ESTRADI OL <5.0 pg/mL 05/07/2016 Comp Metabolic Upg167 NA 141 mEq/L 05/06/2016 Comp Metabolic Bns557 K 3.6 mEq/L 05/06/2016 Comp Metabolic Ssu301 CL 107 mEq/L 05/06/2016 Comp Metabolic Hvu310 CO2 28.0 mEq/L 05/06/2016 Comp Metabolic Qbw467 AN ION GAP 10 05/06/2016 Comp Metabolic Dad135 GL UCOSE 138 mg/dL 05/06/2016 Comp Metabolic Rnt335 Cr eat 0.5 mg/dL 05/06/2016 Comp Metabolic Sun658 eG FR 119 ml/min/1.73m2 04/10 Comp Metabolic Siu903 BUN 16 mg/dL 05/06/2016 Comp Metabolic Mza836 B/ C Ratio 30.2 Ratio 05/06/2016 Comp Metabolic Vue173 CA LCIUM 8.9 mg/dL 05/06/2016 Comp Metabolic Tio987 AL K PHOS 29 U/L 05/06/2016 Comp Metabolic Usk821 T(SGOT) 20 U/L 05/06/2016 Comp Metabolic Jhy981 AL T(SGPT) 21 U/L 05/06/2016 Comp Metabolic Bif723 BI LI T 0.4 mg/dL 05/06/2016 Comp Metabolic Fms031 AL BUMIN 3.6 g/dL 05/06/2016 Comp Metabolic Rbu315 TP RO 5.5 g/dL 05/06/2016 Comp Metabolic Qvb936 GL OB 1.9 g/dL 05/06/2016 Comp Metabolic Mzk793 A/ G Ratio 1.9 Ratio 05/06/2016 Comp Metabolic Teu224 Os mo 285 mOsmo 05/06/2016 Urinalysis Ord28 [...] per/HPF 6 Urinalysis Ord28 U-WBC None per/HPF 05/06/2016 Urinalysis Ord28 U-Cast None per/HPF 05/06/2016 Urinalysis Ord28 U-VOL VOLUME SUFFICIENT (10mL) 05/06/2016 Urinalysis Ord28 U-Yeast NEGATIVE 05/06/2016 Urinalysis Ord28 U-Com Urine saved if culture needed (specimen acceptable for 48 hours from collection if refrigerated) 05/06/2016 Progesterone Ide462 Prog 0.98 ng/mL 05/06/2016 Cbc With Differential [...] 29.2 pg 05/06/2016 Cbc With Differential Ord2 Boundary% 10.1 % 05/06/2016 Cbc With Differential Ord2 [...] 1.16 K/ul 05/06/2016 Cbc With Differential Ord2 Boundary ABS# 0.4 K/ul 05/06/2016 Cbc With Differential [...] 29.6 pg 04/29/2016 Cbc With Differential Ord2 Boundary% 13.1 % 04/29/2016 Cbc With Differential Ord2 [...] 1.42 K/ul 04/29/2016 Cbc With Differential Ord2 Boundary ABS# 0.5 K/ul 04/29/2016 Cbc With Differential Ord2 Eos ABS# 0.2 K/ul 04/29/2016 Cbc With Differential Ord2 Baso ABS# 0.0 K/ul 04/29/2016 Comp Metabolic Ayt360 NA 141 mEq/L 04/29/2016 Comp Metabolic Rqd338 K 4.0 mEq/L 04/29/2016 Comp Metabolic Kcz142 CL 108 mEq/L 04/29/2016 Comp Metabolic Usa902 CO2 27.0 mEq/L 04/29/2016 Comp Metabolic Dsi494 AN ION GAP 10 04/29/2016 Comp Metabolic Mbt802 GL UCOSE 69 mg/dL 04/29/2016 Comp Metabolic Dqa283 Cr eat 0.5 mg/dL 04/29/2016 Comp Metabolic Ddh964 eG FR 122 ml/min/1.73m2 04/10 Comp Metabolic Xbl980 BUN 19 mg/dL 04/29/2016 Comp Metabolic Ncz381 B/ C Ratio 36.5 Ratio 04/29/2016 Comp Metabolic Jvx810 CA LCIUM 9.1 mg/dL 04/29/2016 Comp Metabolic Tac707 AL K PHOS 31 U/L 04/29/2016 Comp Metabolic Hft441 T(SGOT) 20 U/L 04/29/2016 Comp Metabolic Djz558 AL T(SGPT) 22 U/L 04/29/2016 Comp Metabolic Chq843 BI LI T 0.6 mg/dL 04/29/2016 Comp Metabolic Nhv237 AL BUMIN 3.8 g/dL 04/29/2016 Comp Metabolic Qbf284 TP RO 5.9 g/dL 04/29/2016 Comp Metabolic Opi243 GL OB 2.1 g/dL 04/29/2016 Comp Metabolic Eli525 A/ G Ratio 1.8 Ratio 04/29/2016 Comp Metabolic Eem429 Os mo 282 mOsmo 04/29/2016 Progesterone Mnh692 Prog 5.99 ng/mL 04/29/2016 Urinalysis Ord28 U-Color [...] from collection if refrigerated) 04/25/2016 Comp Metabolic Cmz679 NA 138 mEq/L 04/25/2016 Comp Metabolic Ysl713 K 3.6 mEq/L 04/25/2016 Comp Metabolic Svd944 CL 105 mEq/L 04/25/2016 Comp Metabolic Qpi532 CO2 27.0 mEq/L 04/25/2016 Comp Metabolic Wrl812 AN ION GAP 10 04/25/2016 Comp Metabolic Rpa284 GL UCOSE 190 mg/dL 04/25/2016 Comp Metabolic Eeh288 Cr eat 0.5 mg/dL 04/25/2016 Comp Metabolic Fal230 eG FR 128 ml/min/1.73m2 04/09 Comp Metabolic Pcr681 BUN 17 mg/dL 04/25/2016 Comp Metabolic Qzf176 B/ C Ratio 34.0 Ratio 04/25/2016 Comp Metabolic Hiy841 CA LCIUM 8.7 mg/dL 04/25/2016 Comp Metabolic Afm620 AL K PHOS 32 U/L 04/25/2016 Comp Metabolic Rdh501 T(SGOT) 23 U/L 04/25/2016 Comp Metabolic Scu666 AL T(SGPT) 22 U/L 04/25/2016 Comp Metabolic Mtx065 BI LI T 0.5 mg/dL 04/25/2016 Comp Metabolic Evk402 AL BUMIN 3.6 g/dL 04/25/2016 Comp Metabolic Ytk200 TP RO 5.5 g/dL 04/25/2016 Comp Metabolic Sjd386 GL OB 1.9 g/dL 04/25/2016 Comp Metabolic Ooo626 A/ G Ratio 1.9 Ratio 04/25/2016 Comp Metabolic Hzl158 Os mo 282 mOsmo 04/25/2016 Cbc With [...] 29.6 pg 04/25/2016 Cbc With Differential Ord2 Boundary% 13.0 % 04/25/2016 Cbc With Differential Ord2 [...] 1.01 K/ul 04/25/2016 Cbc With Differential Ord2 Boundary ABS# 0.4 K/ul 04/25/2016 Cbc With Differential [...] 29.2 pg 04/04/2016 Cbc With Differential Ord2 Boundary% 16.1 % 04/04/2016 Cbc With Differential Ord2 [...] 1.32 K/ul 04/04/2016 Cbc With Differential Ord2 Boundary ABS# 0.8 K/ul 04/04/2016 Cbc With Differential Ord2 Eos ABS# 0.2 K/ul 04/04/2016 Cbc With Differential Ord2 Baso ABS# 0.0 K/ul 04/04/2016 Comp Metabolic Ocd045 NA 140 mEq/L 04/04/2016 Comp Metabolic Rtw126 K 4.1 mEq/L 04/04/2016 Comp Metabolic Ccm017 CL 106 mEq/L 04/04/2016 Comp Metabolic Tlw146 CO2 27.0 mEq/L 04/04/2016 Comp Metabolic Kzp172 AN ION GAP 11 04/04/2016 Comp Metabolic Vjx697 GL UCOSE 71 mg/dL 04/04/2016 Comp Metabolic Ukw800 Cr eat 0.5 mg/dL 04/04/2016 Comp Metabolic Qfl726 eG FR 131 ml/min/1.73m2 03/10 Comp Metabolic Csd257 BUN 14 mg/dL 04/04/2016 Comp Metabolic Apx324 B/ C Ratio 28.6 Ratio 04/04/2016 Comp Metabolic Eue170 CA LCIUM 9.1 mg/dL 04/04/2016 Comp Metabolic Rds743 AL K PHOS 42 U/L 04/04/2016 Comp Metabolic Ilv189 T(SGOT) 18 U/L 04/04/2016 Comp Metabolic Ngn958 AL T(SGPT) 17 U/L 04/04/2016 Comp Metabolic Rkw951 BI LI T 0.4 mg/dL 04/04/2016 Comp Metabolic Pyu416 AL BUMIN 3.8 g/dL 04/04/2016 Comp Metabolic Zbf862 TP RO 6.0 g/dL 04/04/2016 Comp Metabolic Aqa966 GL OB 2.2 g/dL 04/04/2016 Comp Metabolic Bno260 A/ G Ratio 1.7 Ratio 04/04/2016 Comp Metabolic Ceu397 Os mo 278 mOsmo 04/04/2016 Urinalysis Ord28 [...] 29.6 pg 03/28/2016 Cbc With Differential Ord2 Boundary% 11.7 % 03/28/2016 Cbc With Differential Ord2 [...] 1.14 K/ul 03/28/2016 Cbc With Differential Ord2 Boundary ABS# 0.4 K/ul 03/28/2016 Cbc With Differential Ord2 Eos ABS# 0.1 K/ul 03/28/2016 Cbc With Differential Ord2 Baso ABS# 0.0 K/ul 03/28/2016 Cbc With Differential Ord2 New Analyzer Notice Please note new ref ranges s tarting 11-21-2015 due to implemntation of new five part differential hematolgy analyzer. 03/28/2016 Comp Metabolic Vge201 NA 137 mEq/L 03/28/2016 Comp Metabolic Aqy722 K 3.5 mEq/L 03/28/2016 Comp Metabolic Mqz191 CL 105 mEq/L 03/28/2016 Comp Metabolic Dmo809 CO2 27.0 mEq/L 03/28/2016 Comp Metabolic Qgf945 AN ION GAP 9 03/28/2016 Comp Metabolic Mka426 GL UCOSE 174 mg/dL 03/28/2016 Comp Metabolic Tns328 Cr eat 0.5 mg/dL 03/28/2016 Comp Metabolic Twl756 eG FR 131 ml/min/1.73m2 03/10 Comp Metabolic Wmd243 BUN 13 mg/dL 03/28/2016 Comp Metabolic Gwy578 B/ C Ratio 26.5 Ratio 03/28/2016 Comp Metabolic Fiy710 CA LCIUM 8.7 mg/dL 03/28/2016 Comp Metabolic Pvj885 AL K PHOS 31 U/L 03/28/2016 Comp Metabolic Xzr296 T(SGOT) 20 U/L 03/28/2016 Comp Metabolic Arr029 AL T(SGPT) 19 U/L 03/28/2016 Comp Metabolic Uxq978 BI LI T 0.4 mg/dL 03/28/2016 Comp Metabolic Rde576 AL BUMIN 3.5 g/dL 03/28/2016 Comp Metabolic Hmd230 TP RO 5.3 g/dL 03/28/2016 Comp Metabolic Vqh081 GL OB 1.8 g/dL 03/28/2016 Comp Metabolic Hgo668 A/ G Ratio 2.0 Ratio 03/28/2016 Comp Metabolic Lre282 Os mo 278 mOsmo 03/28/2016 Urinalysis Ord28 [...] collection if refrigerated) 03/28/2016 Testosterone Free Direct [id number] FREE TESTOSTERONE <0.2 pg/mL 03/13/2016 Estradiol 207381 ESTRADI OL <5.0 pg/mL 03/12/2016 Progesterone Icj715 Prog 0.56 ng/mL 03/10/2016 Homocyst(E)Ine Plasma 246309 HOMOCYSTEINE, TOTAL 10.9 umol/L 01/18/2016 Mthfr 203483 MTHFR C677T: HETEROZYGOUS MUTATION DETECTED 02/2016 Mthfr 049743 MTHFR A1298 C: HETEROZYGOUS MUTATION DETECTED 01/11/2016 Mthfr 964688 INTERPRETAT ION: 01/11/2016 Iodine Serum 654688 IOD INE, SERUM 131.0 ug/L 01/10/2016 Tsh Ord6 hTSH II 2.11 uIU/mL 01/07/2016 Comp Metabolic Rin659 NA 139 mEq/L 01/07/2016 Comp Metabolic Fys413 K 4.0 mEq/L 01/07/2016 Comp Metabolic Tjo470 CL 104 mEq/L 01/07/2016 Comp Metabolic Jgz254 CO2 26.0 mEq/L 01/07/2016 Comp Metabolic Bdz209 AN ION GAP 13 01/07/2016 Comp Metabolic Opj043 GL UCOSE 86 mg/dL 01/07/2016 Comp Metabolic Rzg101 Cr eat 0.6 mg/dL 01/07/2016 Comp Metabolic Vap165 eG FR 100 ml/min/1.73m2 12/11 Comp Metabolic Ear240 BUN 18 mg/dL 01/07/2016 Comp Metabolic Veb550 B/ C Ratio 29.0 Ratio 01/07/2016 Comp Metabolic Swx646 CA LCIUM 9.4 mg/dL 01/07/2016 Comp Metabolic Xwv177 AL K PHOS 40 U/L 01/07/2016 Comp Metabolic Fjm165 T(SGOT) 20 U/L 01/07/2016 Comp Metabolic Qpp587 AL T(SGPT) 24 U/L 01/07/2016 Comp Metabolic Aak231 BI LI T 0.6 mg/dL 01/07/2016 Comp Metabolic Ipc253 AL BUMIN 4.1 g/dL 01/07/2016 Comp Metabolic Dlb173 TP RO 6.4 g/dL 01/07/2016 Comp Metabolic Qqu019 GL OB 2.3 g/dL 01/07/2016 Comp Metabolic Sdl726 A/ G Ratio 1.8 Ratio 01/07/2016 Comp Metabolic Ieu844 Os mo 279 mOsmo 01/07/2016 Lipid Ord30 [...] Ord28 U-Com Culture to follow 11/26/2015 Progesterone Cvs375 Prog >40.00 ng/mL 11/26/2015 Testosterone Free Direct [id number] FREE TESTOSTERONE 0.6 pg/mL 10/01/2015 Estradiol 721667 ESTRADI OL <5.0 pg/mL 09/26/2015 Urinalysis Ord28 [...] Urinalysis Ord28 U-Yeast NEGATIVE 09/25/2015 Comp Metabolic Qir352 NA 142 mEq/L 09/25/2015 Comp Metabolic Wco976 K 4.3 mEq/L 09/25/2015 Comp Metabolic Zug950 CL 110 mEq/L 09/25/2015 Comp Metabolic Ixd371 CO2 23.0 mEq/L 09/25/2015 Comp Metabolic Ozk468 AN ION GAP 13 09/25/2015 Comp Metabolic Nvb199 GL UCOSE 76 mg/dL 09/25/2015 Comp Metabolic Nhw384 Cr eat 0.8 mg/dL 09/25/2015 Comp Metabolic Kms711 eG FR 79 ml/min/1.73m2 09/25 Comp Metabolic Dpe732 BUN 17 mg/dL 09/25/2015 Comp Metabolic Hal304 B/ C Ratio 22.4 Ratio 09/25/2015 Comp Metabolic Qgi890 CA LCIUM 9.4 mg/dL 09/25/2015 Comp Metabolic Oql829 AL K PHOS 45 U/L 09/25/2015 Comp Metabolic Nve902 T(SGOT) 20 U/L 09/25/2015 Comp Metabolic Trh041 AL T(SGPT) 18 U/L 09/25/2015 Comp Metabolic Pzg542 BI LI T 0.5 mg/dL 09/25/2015 Comp Metabolic Smb612 AL BUMIN 4.0 g/dL 09/25/2015 Comp Metabolic Kqc292 TP RO 6.2 g/dL 09/25/2015 Comp Metabolic Sbv573 GL OB 2.2 g/dL 09/25/2015 Comp Metabolic Tcx916 A/ G Ratio 1.8 Ratio 09/25/2015 Comp Metabolic Hwx809 Os mo 283 mOsmo 09/25/2015 Tsh Ord6 hTSH II 4.05 uIU/mL 09/25/2015 Progesterone Zpa704 Prog 21.38 ng/mL 09/25/2015 Free T4 Jtw288 FREE T4 0.78 ng/dL 09/25/2015 Cbc With [...] RDW 14.3 % 09/25/2015 Testosterone Free Direct [id number] FREE TESTOSTERONE 1.2 pg/mL 08/31/2015 Estradiol 954721 ESTRADI OL <5.0 pg/mL 08/29/2015 Progesterone Jyw265 Prog 4.37 ng/mL 08/28/2015 Fungal Screen I 824930 * *ASPERGILLUS AB BY ID . 07/23/2015 Fungal Screen I 676883 A SPERGILLUS AB BY ID None Detected 015 Fungal Screen I 904294 * *BLASTOMYCES ANTIBODY BY CF & ID . 07/23/2015 Fungal Screen I 858623 B LASTOMYCES AB,CF <1:8 07/23/2015 Fungal Screen I 069365 B LASTOMYCES AB,ID None Detected 015 Fungal Screen I 258275 * *MAXINE ANTIBODY BY ID . 07/23/2015 Fungal Screen I 601595 C ANDIDA AB BY ID Detected 07/23/2015 Fungal Screen I 093574 * *COCCIDIOIDES ANTIBODIES, IGG & IGM . 07/23/2015 Fungal Screen I 106440 C OCCIDIOIDES AB IGM 0.3 IV 07/23/2015 Fungal Screen I 741984 C OCCIDIOIDES AB IGG 0.4 IV 07/23/2015 Fungal Screen I 414201 * *HISTOPLASMA ANTIBODY BY ID . 07/23/2015 Fungal Screen I 128650 H ISTOPLASMA ABS (ID) None Detected 015 Francisella Tularensis Abs 037758 F. TULARENSIS, IGG 0 U/mL 07/17/2015 Francisella Tularensis Abs 335898 F. TULARENSIS, IGM 0 U/mL 07/17/2015 Vitamin D 25 Oh Ktx2088 VITAMIN D, 25 HYDROXY 142.21 ng/mL 07/13/2015 Antistrptolysin-O Qualitative Fij244 ASO Negative 07/12/2015 B12 Zyh490 B12 956.00 pg/ml 07/12/2015 Cbc With Differential [...] Ord2 RDW 15.1 % 07/10/2015 Free T4 Rad280 FREE T4 0.79 ng/dL 06/12/2015 Urinalysis Ord28 [...] Ord2 RDW 16.0 % 06/04/2015 Comp Metabolic Inx123 NA 139 mEq/L 06/04/2015 Comp Metabolic Avu200 K 3.9 mEq/L 06/04/2015 Comp Metabolic Zbu464 CL 108 mEq/L 06/04/2015 Comp Metabolic Tth598 CO2 26.0 mEq/L 06/04/2015 Comp Metabolic Krx964 AN ION GAP 9 06/04/2015 Comp Metabolic Mzj449 GL UCOSE 74 mg/dL 06/04/2015 Comp Metabolic Cci699 Cr eat 0.6 mg/dL 06/04/2015 Comp Metabolic Eel165 eG FR 102 ml/min/1.73m2 05/10 Comp Metabolic Abr260 BUN 18 mg/dL 06/04/2015 Comp Metabolic Qmy588 B/ C Ratio 29.5 Ratio 06/04/2015 Comp Metabolic Rvu045 CA LCIUM 9.0 mg/dL 06/04/2015 Comp Metabolic Xrr679 AL K PHOS 44 U/L 06/04/2015 Comp Metabolic Led113 T(SGOT) 22 U/L 06/04/2015 Comp Metabolic Rub509 AL T(SGPT) 23 U/L 06/04/2015 Comp Metabolic Lfg204 BI LI T 0.4 mg/dL 06/04/2015 Comp Metabolic Ppa472 AL BUMIN 4.0 g/dL 06/04/2015 Comp Metabolic Fej786 TP RO 5.8 g/dL 06/04/2015 Comp Metabolic Wbv751 GL OB 1.8 g/dL 06/04/2015 Comp Metabolic Pbz778 A/ G Ratio 2.2 Ratio 06/04/2015 Comp Metabolic Knb055 Os mo 278 mOsmo 06/04/2015 Tsh Ord6 hTSH II 5.17 uIU/mL 06/04/2015 Review of Systems System Result Effective Dates Constitutional No recent illness 01/24/2019 Constitutional No [...] 4: G0439 03/11/2016 THER/PROPH/DIAG INJ SC/IM CPT-4: 20335 12/27/2015 Vital Signs Date Vital 01/24/2019 Blood Pressure 1: 140/78 Code: 8480-6 BMI: 19.9 Code: 09933-5 Heart Rate 1: 84 bpm Height: 5' SpO2: 95% Weight: 102 lbs 01/10/2019 Blood Pressure 1: 126/62 Code: 8480-6 BMI: 19.9 Code: 98169-5 Heart Rate 1: 90 bpm Height: 5' SpO2: 94% Temperature: 36.6 (C ) / 97.8 (F) Weight: 102 lbs 11/25/2018 Blood Pressure 1: 128/74 Code: 8480-6 BMI: 19.7 Code: 83254-9 Heart Rate 1: 86 bpm Height: 5' SpO2: 97% Weight: 101 lbs 09/15/2018 Blood Pressure 1: 130/70 Code: 8480-6 BMI: 20.6 Code: 15033-5 Heart Rate 1: 75 bpm Height: 5' SpO2: 99% Weight: 105 lbs 8 oz 09/10/2018 Blood Pressure 1: 126/68 Code: 8480-6 BMI: 20.7 Code: 96687-0 Heart Rate 1: 63 bpm Height: 5' SpO2: 96% Waist Measure (cm): 66 cm Weight: 106 lbs 06/01/2018 Blood Pressure 1: 156/76 Code: 8480-6 BMI: 20.1 Code: 07878-1 Heart Rate 1: 68 bpm Height: 5' SpO2: 99% Weight: 103 lbs 05/24/2018 Blood Pressure 1: 120/60 Code: 8480-6 BMI: 20.5 Code: 03306-4 Heart Rate 1: 82 bpm Height: 5' SpO2: 98% Weight: 105 lbs 05/19/2018 Blood Pressure 1: 140/72 Code: 8480-6 BMI: 20.5 Code: 97751-1 Heart Rate 1: 96 bpm Height: 5' SpO2: 98% Weight: 105 lbs 01/12/2018 Blood Pressure 1: 146/78 Code: 8480-6 BMI: 21.1 Code: 53120-8 Heart Rate 1: 85 bpm Height: 5' SpO2: 95% Weight: 108 lbs 10/12/2017 Blood Pressure 1: 138/72 Code: 8480-6 BMI: 21.1 Code: 73738-3 Heart Rate 1: 96 bpm Height: 5' SpO2: 98% Weight: 108 lbs 08/06/2017 Blood Pressure 1: 130/78 Code: 8480-6 BMI: 20.5 Code: 91648-2 Heart Rate 1: 89 bpm Height: 5' SpO2: 98% Weight: 105 lbs 05/13/2017 Blood Pressure 1: 122/70 Code: 8480-6 BMI: 20.5 Code: 30633-3 Heart Rate 1: 80 bpm Height: 5' SpO2: 97% Weight: 105 lbs 03/19/2017 Blood Pressure 1: 138/80 Code: 8480-6 BMI: 20.5 Code: 62576-3 Heart Rate 1: 83 bpm Height: 5' SpO2: 97% Waist Measure (cm): 74 cm Weight: 105 lbs 03/18/2017 Blood Pressure 1: 138/80 Code: 8480-6 BMI: 20.5 Code: 26130-7 Heart Rate 1: 83 bpm Height: 5' SpO2: 97% Weight: 105 lbs 01/27/2017 Blood Pressure 1: 142/68 Code: 8480-6 BMI: 20.5 Code: 49317-6 Heart Rate 1: 69 bpm Height: 5' SpO2: 97% Weight: 105 lbs 12/29/2016 Blood Pressure 1: 154/82 Code: 8480-6 BMI: 20.1 Code: 33542-4 Heart Rate 1: 76 bpm Height: 5' SpO2: 94% Temperature: 37.4 (C ) / 99.4 (F) Weight: 103 lbs 11/19/2016 Blood Pressure 1: 134/74 Code: 8480-6 BMI: 19.7 Code: 13889-1 Heart Rate 1: 64 bpm Height: 5' Weight: 101 lbs 08/13/2016 Blood Pressure 1: 118/56 Code: 8480-6 BMI: 19.5 Code: 21384-1 Heart Rate 1: 64 bpm Height: 5' SpO2: 97% Weight: 100 lbs 07/03/2016 Blood Pressure 1: 120/68 Code: 8480-6 BMI: 19.1 Code: 72347-7 Heart Rate 1: 80 bpm Height: 5' SpO2: 98% Weight: 98 lbs 05/07/2016 Blood Pressure 1: 116/58 Code: 8480-6 BMI: 19.1 Code: 81814-7 Heart Rate 1: 79 bpm Height: 5' SpO2: 98% Weight: 98 lbs 04/08/2016 Blood Pressure 1: 118/58 Code: 8480-6 BMI: 19.0 Code: 49389-3 Heart Rate 1: 78 bpm Height: 5' SpO2: 98% Weight: 97 lbs 8 oz 03/11/2016 Blood Pressure 1: 102/60 Code: 8480-6 BMI: 19.7 Code: 07357-0 Heart Rate 1: 75 bpm Height: 5' SpO2: 94% Waist Measure (cm): 71 cm Weight: 101 lbs 12/27/2015 Blood Pressure 1: 128/72 Code: 8480-6 BMI: 20.2 Code: 66191-1 Heart Rate 1: 95 bpm Height: 5' SpO2: 98% Weight: 103 lbs 8 oz 09/24/2015 Blood Pressure 1: 136/70 Code: 8480-6 BMI: 19.1 Code: 58316-5 Heart Rate 1: 72 bpm Height: 5' SpO2: 97% Weight: 98 lbs 06/26/2015 Blood Pressure 1: 144/64 Code: 8480-6 BMI: 18.9 Code: 71236-3 Heart Rate 1: 77 bpm Height: 5' SpO2: 98% Weight: 97 lbs 04/10/2015 Blood Pressure 1: 132/88 Code: 8480-6 BMI: 18.9 Code: 82110-2 Heart Rate 1: 83 bpm Height: 5' SpO2: 97% Weight: 97 lbs Functional Status No Functional Status data History of Present Illness Symptom Name Status Resu lt Effective Date Notes Quality chronic 01/24/2019 None Quality primary hypert [...] Episodes daily 01/24/2019 None Location in [facility] 01/24/2019 None Onset and Resolution o ngoing [...] Alleviating Factors medication 09/15/2018 None hypothyroid [employer] 09/15/2018 None hypothyroid Onset and Resolution [...] Alleviating Factors medication 05/19/2018 None hypothyroid [employer] 05/19/2018 None hypertension Quality tari kebede [...] Encounters Encounter Performer Loca tion Codes Date ([id number]) 26897 EST. P ATIENT, LEVEL IV Diagnosis: Essential (primary) hypertension[ICD10: I10] Diagnosis: Headache[ICD10: R51] Diagnosis: Atrophy of thyroid (acquired)[ICD10: E03.4] Diagnosis: Other forms of dyspnea[ICD10: R06.09] Kailee Moreira MD, [facility] CPT-4: 65307 01/24/2019 ([id number]) 89424 EST. P ATIENT, LEVEL III Diagnosis: Headache[ICD10: R51] Diagnosis: Nasal congestion[ICD10: R09.81] Marixa Moreira MD, [facility] CPT- 4: 51605 01/10/2019 ([id number]) 93465 EST. 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 P ATIENT, LEVEL IV Diagnosis: Essential (primary) hypertension[ICD10: I10] Diagnosis: Atrophy of thyroid (acquired)[ICD10: E03.4] Diagnosis: Low back pain[ICD10: M54.5] Diagnosis: Other specified noninflammatory disorders of vagina[ICD10: N89.8] Kailee Moreira MD, [facility] CPT-4: 49419 09/15/2018 ([id number]) 82501 EST. P ATIENT, LEVEL III Diagnosis: Dizziness and giddiness[ICD10: R42] Diagnosis: Allergic contact dermatitis due to plants, except food[ICD10: L23.7] Marixa Moreira MD, [facility] CPT-4: 74334 06/01/2018 ([id number]) 97335 EST. P ATIENT, LEVEL III Diagnosis: Allergic contact dermatitis due to plants, except food[ICD10: L23.7] Marixa Moreira MD, [facility] CPT-4: 06922 05/24/2018 ([id number]) 20876 EST. P ATIENT, LEVEL IV Diagnosis: Essential (primary) hypertension[ICD10: I10] Diagnosis: Atrophy of thyroid (acquired)[ICD10: E03.4] Diagnosis: Obstructive sleep apnea (adult) (pediatric)[ICD10: G47.33] Kailee Moreira MD, [facility] CPT-4: 93725 05/19/2018 ([id number]) 32010 EST. P ATIENT, LEVEL IV Diagnosis: Essential (primary) hypertension[ICD10: I10] Diagnosis: Atrophy of thyroid (acquired)[ICD10: E03.4] Diagnosis: Low back pain[ICD10: M54.5] Kailee Moreira MD, [facility] CPT-4: 92237 01/12/2018 ([id number]) 61059 EST. P ATIENT, LEVEL III Diagnosis: Headache[ICD10: R51] Kailee Moreira MD, [facility] CPT-4: 38145 10/12/2017 ([id number]) 59335 EST. P ATIENT, LEVEL IV Diagnosis: Atrophy of thyroid (acquired)[ICD10: E03.4] Diagnosis: Essential (primary) hypertension[ICD10: I10] Diagnosis: Obstructive sleep apnea (adult) (pediatric)[ICD10: G47.33] Kailee Moreira MD, [facility] CPT-4: 34921 08/06/2017 ([id number]) 10470 EST. 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 P ATIENT, LEVEL IV Diagnosis: Atrophy of thyroid (acquired)[ICD10: E03.4] Diagnosis: Essential (primary) hypertension[ICD10: I10] Diagnosis: Encounter for screening for other musculoskeletal disorder[ICD10: Z13.828] Diagnosis: Low back pain[ICD10: M54.5] Diagnosis: Transient alteration of awareness[ICD10: R40.4] Kailee Moreira MD, C CPT-4: 35014 03/18/2017 ([id number]) 17764 EST. P ATIENT, LEVEL IV Diagnosis: Atrophy of thyroid (acquired)[ICD10: E03.4] Diagnosis: Essential (primary) hypertension[ICD10: I10] Diagnosis: Low back pain[ICD10: M54.5] Kailee Moreira MD, [facility] CPT-4: 97717 01/27/2017 ([id number]) 51621 EST. P ATIENT, LEVEL III Diagnosis: Acute recurrent maxillary sinusitis[ICD10: J01.01] Marixa Moreira MD, [facility] CPT-4: 98616 12/29/2016 ([id number]) 95821 EST. P ATIENT, LEVEL IV Diagnosis: Atrophy of thyroid (acquired)[ICD10: E03.4] Diagnosis: Essential (primary) hypertension[ICD10: I10] Kailee Moreira MD, [facility] CPT-4: 86865 11/19/2016 ([id number]) 53751 EST. P ATIENT, LEVEL IV Diagnosis: Atrophy of thyroid (acquired)[ICD10: E03.4] Diagnosis: Enterocolitis due to Clostridium difficile[ICD10: A04.7] Diagnosis: Essential (primary) hypertension[ICD10: I10] Kailee Moreira MD, [facility] CPT-4: 83669 08/13/2016 ([id number]) 51450 EST. P ATIENT, LEVEL IV Diagnosis: Essential (primary) hypertension[ICD10: I10] Diagnosis: Enterocolitis due to Clostridium difficile[ICD10: A04.7] Diagnosis: Hypothyroidism, unspecified[ICD10: E03.9] Diagnosis: Low back pain[ICD10: M54.5] Kailee Moreira MD, [facility] CPT-4: 89505 07/03/2016 ([id number]) 63322 EST. P ATIENT, LEVEL IV Diagnosis: Enterocolitis due to Clostridium difficile[ICD10: A04.7] Diagnosis: Lyme disease, unspecified[ICD10: A69.20] Kailee Moreira MD, C CPT-4: 44258 05/07/2016 ([id number]) 83044 EST. P ATIENT, LEVEL IV Diagnosis: Generalized abdominal rigidity[ICD10: R19.37] Diagnosis: Diarrhea, unspecified[ICD10: R19.7] Diagnosis: Lyme disease, unspecified[ICD10: A69.20] Kailee Moreira MD, [facility] CPT-4: 69432 04/08/2016 ([id number]) 51139 EST. P ATIENT, LEVEL IV Diagnosis: Hypothyroidism, unspecified[ICD10: E03.9] Diagnosis: Lyme disease, unspecified[ICD10: A69.20] Diagnosis: Tachycardia, unspecified[ICD10: R00.0] Kailee Moreira MD, [facility] CPT-4: 45300 12/27/2015 ([id number]) 31817 EST. P ATIENT, LEVEL III Diagnosis: Essential (primary) hypertension[ICD10: I10] Diagnosis: Benign lipomatous neoplasm of skin and subcutaneous tissue of other sites[ICD10: D17.39] Diagnosis: Low back pain[ICD10: M54.5] Kailee Moreira MD, [facility] CPT-4: 71133 09/24/2015 ([id number]) 64762 EST. 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 01/24/2019 Appointment: Kailee Moreira WPtel: [id number] (30 min) Complex 01/24/2019 Patient Education: Patient Medication Summary Completed 01/24/2019 Patient Education: Hypertension Completed 01/24/2019 Appointment: Kailee Moreira WPtel: [id number] (15 min) Moderate 01/19/2019 Appointment: Nurse Visit 01/14/2019 Visit Plan: Headache -nasal congest ion-refill fioricet for prn use-kenalog injection today in the office -call if symptoms do not resolve or if any worse-patient verbalized understanding of plan. 01/10/2019 Appointment: Marixa Lakhani WPtel: [phone] (15 min) Moderate 01/10/2019 Patient Education: Patient [...] home. 11/25/2018 Appointment: [phone] [facility] [place] (15 min) Moderate 11/25/2018 Patient Education: [...] the chiropractor. 09/15/2018 Appointment: [id number] 30 min appointments only in this slot [...] care surrogate. 09/10/2018 Appointment: Kiersten Armando WPtel: [address] [place] [address] - Annual Wellness Visit 09/10/2018 Patient Education: Patient Medication Summary Completed 09/10/2018 Appointment: Injection 06/14/2018 Visit Plan: Contact dermatitis-disc ussed with Dr Moreira -rx for dexamethasone sent to patient's pharmacy and instructed on use-will also send rx for topical betamethsone -instructed patient to call if symptoms do not resolve or if any worse Dycsfnjkg-KUO-oaunycdv fluids-monitor blood pressure- call if dizziness does not resolve or if any worse-patient and verbalized understanding 06/01/2018 Appointment: Marixa Lakhani WPtel: [facility] [address] (15 min) Moderate 06/01/2018 Patient Education: Patient Medication Summary Completed 06/01/2018 Visit Plan: Contact dermatitis due to poison magalys/oak-kenalog injection today- pt is to use topical treatments as directed. Pt is cleanse clothing in hot water with soap, and call if symptoms do not improve or if they worsen. 05/24/2018 Appointment: Marixa Lakhani WPtel: [facility]6 [phone] (15 min) Moderate 05/24/2018 Patient Education: Patient Medication Summary Completed 05/24/2018 Visit Plan: Hypertension - jorge lunsford - [...] awakening. 05/19/2018 Appointment: Kailee Moreira [facility]el[phone] (30 min) Complex 05/19/2018 Patient Education: Patient [...] thighs bilaterally 01/12/2018 Appointment: Kailee Moreira WPtel: [phone] [id number] (15 min) Moderate 01/12/2018 Patient Education: Patient Medication Summary Completed 01/12/2018 Appointment: Ka[facility] Moreira [facility]el[phone] (15 min) Moderate 12/02/2017 Visit Plan: Headache - recommended patient to use PRN Fioricet for headaches - call if not improving. 10/12/2017 Appointment: Kailee Moreira WPtel[phone] (15 min) Moderate 10/12/2017 Patient Education: Patient [...] apnea - order humidification for cpap - [place] home patient/[employer]- find out if they need [...] at home. 08/06/2017 Appointment: Kailee Moreira WPtel: [id number] (15 min) Moderate 08/06/2017 Patient Education: Patient Medication Summary Completed 08/06/2017 Care Plan: Comp Metabolic Pending 08/06/2017 Care Plan: Tsh Pending 08/06/2017 Care Plan: Free T4 Pending 08/06/2017 Care Plan: Lipid Pending 08/06/2017 Care Plan: Cbc With Differential Pending 08/06/2017 Appointment: Kailee Moreira WPtel: [address] [place], [place] [phone] (15 min) Moderate 07/21/2017 Visit Plan: Hypothyroidism [...] sandras appt Low blood pressure stop lisinopril. 05/13/2017 Appointment: Kailee Moreira WPtel: [id number] (15 min) Moderate 05/13/2017 Patient Education: Patient Medication Summary Completed 05/13/2017 Patient Education: Hypertension Completed 05/13/2017 Appointment: Kailee Moreira WPtel: [address] [place], [place] [phone] (15 min) Moderate 05/06/2017 Visit Plan: Medicare [...] surrogate. 03/19/2017 Appointment: Kiersten Armando WPtel: [phone] [facility] [facility] - Annual Wellness Visit 03/19/2017 Patient Education: [...] levels of control. p hysical therapy at [facility] - water therapy for back eeg - needs ordered at hospital. 03/18/2017 Appointment: Kailee Moreira WPtel: [phone] [id number] (15 min) Moderate 03/18/2017 Patient Education: Patient [...] improve. 01/27/2017 Appointment: Kailee Moreira WPtel: [phone] [facility] (15 min) Moderate 01/27/2017 Patient Education: Patient Medication Summary Completed 01/27/2017 Patient Education: Hypertension Completed 01/27/2017 Visit Plan: Sinusitis - Pt has acut e infection - pain in face, maxillary region, Pt informed to use decongestant, RX given to patient, sinus rinses also recommended. Call if symptoms do not show improvement. 12/29/2016 Appointment: Marixa Lakhani WPtel: [phone] [phone] [place] (30 min) Complex 12/29/2016 Patient Education: [...] of control. 11/19/2016 Appointment: Kailee Moreira WPtel: [phone] [facility] (15 min) Moderate 11/19/2016 Patient Education: Patient [...] have improved. 08/13/2016 Appointment: Kailee Moreira WPtel: [phone] [id number] (15 min) Moderate 08/13/2016 Patient Education: Patient Medication Summary Completed 08/13/2016 Patient Education: Hypertension Completed 08/13/2016 Appointment: Kailee Moreira WPtel: [id number] (30 min) Complex 07/31/2016 Visit Plan: Hypertension [...] of control. 07/03/2016 Appointment: Kailee Moreira WPtel: [facility]4 [id number] (15 min) Moderate 07/03/2016 Patient Education: Patient Medication Summary Completed 07/03/2016 Patient Education: Hypertension Completed 07/03/2016 Visit Plan: Cdiff colitis - pt to h ave repeat testing - if positive will have to repeat treatment. Continue with probiotic. Lymes disease - continue with treatment per Dr. Carrillo. alex sample x 18 days given to patient. 05/07/2016 Appointment: Kailee Moreira WPtel: [id number] (15 min) Moderate 05/07/2016 Patient Education: Patient Medication Summary Completed 05/07/2016 Visit Plan: Diarrhea - suspect the diarrhea is Cdiff related - check stool and treat with flagyl, probiotic to increase to three times daily - continue to hold iv antibiotic. Lyme disease - treating with iv antibiotics - on hold while she has diarrhea. 04/08/2016 Appointment: Kailee Moreira WPtel: [phone] [facility] [place] (15 min) Moderate 04/08/2016 Patient Education: Patient Medication Summary Completed 04/08/2016 Appointment: Kailee Moreira WPtel: [phone] [facility] (15 min) Moderate 04/03/2016 Visit Plan: Medicare [...] Summary Completed 03/11/2016 Appointment: Kailee Moreira WPtel: [id number] (15 min) Moderate 01/24/2016 Visit Plan: Tachycardia [...] control. 12/27/2015 Appointment: Kailee Moreira WPtel: [phone] [facility] (15 min) Moderate 12/27/2015 Patient Education: Patient [...] not improve. 06/26/2015 Appointment: Kailee Moreira WPtel: [address] [place], [place] [id number] (15 min) Moderate 06/26/2015 Patient Education: Patient [...] equina-repeat MRI lumbar spine Lymes disease-sees Dr Carrillo-[facility] specialist in [place], [place] CAD-HX [id number] by Dr Hyde 04/10/2015 Appointment: (S) New Patient 04/10/2015 Patient Education: Patient Medication Summary Completed 04/10/2015 Patient Education: Hypertension Completed 04/10/2015 Instructions Comment REPEAT MRI SPINE . Hypertension - well [...] spine Lymes disease-sees Dr Carrillo-lymes specialist in [place], [place] CAD-HX [id number] by Dr Hyde . Hypertension - wel l controlled - [...] months based on previous levels of control. voltaren gel apply 2 grams to the [...] intervention needed unless the lesion increases. . Tachycardia - I mckenna ve attempted [...] on hold while she has diarrhea. . Hypertension - wel l controlled - [...] improve after the supplement is changed. . Hypertension - wel l controlled - [...] - pt to see the chiropractor. . Hypertension - wel l controlled - [...] previous levels of control. physical therapy at [facility] - water therapy for back [...] apnea - order humidification for cpap - [place] home patient/[employer]- find out if they need [...] do not resolve or if any worse [id number] fluids-monitor blood pressure-call if dizziness does not [...] or does not improve. . Contact dermatitis due to poison magalys/oak-kenalog [...] sandras appt Low blood pressure stop lisinopril. . Headache - recomme nded patient to [...] her [employer] paperwork for health care surrogate. DOXYCYCLINE 100MG TW ICE DAILY X 7 DAYS . Sinusitis - Pt has acute infection - p ain in face, maxillary region, Pt informed to use decongestant, RX given to patient, sinus rinses also recommended. Call if symptoms do not show improvement.
--- OUTSIDE RECORDS SUMMARY | 2020-05-05 11:52 | XMS REPORT | CCD ---
Author Author Emily Lakhani Organization [facility] Address [address] [place] [address] Phone Care Team Providers Care Segment Block Layer Name Role Phone PP Unavailable CCM Unavailable Summary Purpose Interface Exchange Insurance Providers Payer name Policy type / Coverage type Covered alliance party ID Effective Begin Date Effective End Date WPS Medicare Part B Medicare Part B [id number] Unknown [employer] Medicare Part B [id number] Unknown Family history Mother Diagnosis Age At [...] Retir ed 04/10/[address]: 346057341 Never smoker 04/10/[address]: 744542045 Never drinks alcohol 04/10/2015 Allergies, Adverse Reactions, [...] Date Stop Date Sta tus Fill Instructions estradiol 0.01% (0.1 mg/gram) vaginal cream RxNorm: 689391 1 GRAM(S) VAG BIW 03/31/2019 03/24/2020 Ac tive estradiol 0.01% (0.1 mg/gram) vaginal cream RxNorm: 191765 1 GRAM(S) VAG BIW 02/21/2019 08/13/2020 Ac tive Ventolin HFA 90 mcg/ actuation aerosol inhaler RxNorm: 2164073 1 INH TID as needed dyspnea 01/24/2019 08/21/2019 Active Fioricet 50 mg-300 m g-40 mg capsule RxNorm: 2073959 1 Capsule(s) PO Q8 P RN as needed for headache 01/10/2019 No Stop Date Active dexamethasone 4 mg t ablet RxNorm: 250787 1 Tablet(s) PO daily 01/10/2019 01/09/2019 Inactive to be started on 01-11-19 Kenalog 40 mg/mL sadiq pension for injection RxNorm: 1746420 Milliliter(s) Inj 01/10/2019 01/10/2019 In active dexamethasone 4 mg t ablet RxNorm: 803237 1 Tablet(s) PO daily 01/10/2019 01/14/2019 Inactive to be started on 01-11-19 cyclobenzaprine 5 mg tablet RxNorm: 342163 1 Tablet(s) PO TID 12/14/2018 12/20/2018 Inactive cyclobenzaprine 5 mg tablet RxNorm: 913489 1 Tablet(s) PO TID 12/14/2018 12/13/2018 Inactive [place] Thyroid 90 mg tablet RxNorm: 374608 Tablet(s) 1/2 TABLET( S) PO DAILY 11/18/2018 02/10/2020 Ac tive [place] Thyroid 60 mg tablet RxNorm: 823914 1 Tablet(s) PO 3 x we jenise Dominguez 11/17/2018 11/17/2018 In active hold until she is ready to refill [place] Thyroid 30 mg tablet RxNorm: 192096 1 Tablet(s) PO 4 time s a week Thu SAT 11/17/2018 11/16/2018 Inactive Please fill now- she will use her curren t supply of 60mg until she needs refill [place] Thyroid 30 mg tablet RxNorm: 520602 1 Tablet(s) PO 4 time s a week Thu SAT 11/17/2018 11/17/2018 Inactive Please fill now- she will use her curren t supply of 60mg until she needs refill Flagyl 500 mg tablet RxNorm: 726162 1 Tablet(s) PO TID 2018 10/17/2018 Inactive Flagyl 500 mg tablet RxNorm: 929300 1 Tablet(s) PO TID 10/06/2018 10/05/2018 Inactive Flagyl 500 mg tablet RxNorm: 588935 1 Tablet(s) PO TID 10/06/2018 10/10/2018 Inactive cefdinir 300 mg capsule RxNorm: 548555 1 Capsule(s) PO BID 09/29/2018 10/05/2018 Inactive cefdinir 300 mg capsule RxNorm: 329880 1 Capsule(s) PO BID 09/29/2018 09/28/2018 Inactive estradiol 0.01% (0.1 mg/gram) vaginal cream RxNorm: 532967 1 Gram(s) VAG BIW 09/15/2018 02/20/2019 In active Imitrex 50 mg tablet RxNorm: 047402 TAKE WITH ONSET OF MIGRAINE- MAY TAKE AN ADDITIONAL DOSE IF NO RELIEF OF HEADACHE IN 1 HOUR- MAX OF 3 DOSES IN 24 HOURS Tablet(s) 06/14/2018 No Stop Date Active betamethasone gwendolyn te 0.1 % topical cream RxNorm: 634094 1 Application TOP TID 06/01/2018 06/10/2018 In active dexamethasone 4 mg t ablet RxNorm: 228783 1 Tablet(s) PO daily 06/01/2018 06/05/2018 Inactive Kenalog 40 mg/mL sadiq pension for injection RxNorm: 3581521 1.5 Milliliter(s) In j 05/24/2018 05/24/2018 In active amitriptyline 10 mg tablet RxNorm: 446380 1/2 TO 1 TABLET(S) PO QPM 01/21/2018 09/14/2018 Inactive [place] Thyroid 60 mg tablet RxNorm: 825030 1 Tablet(s) PO daily 01/12/2018 11/16/2018 Inactive carvedilol 3.125 mg tablet RxNorm: 742619 1 Tablet(s) PO BID 10/12/2017 No Stop Date Active Fiorinal-Codeine #3 30 mg-50 mg-325 mg-40 mg capsule RxNorm: 789535 1 Capsule(s) PO BID 10/12/2017 11/10/2017 Inactive progesterone microni zed 100 mg capsule RxNorm: 948443 1 Capsule(s) PO daily on days 1- 25 of each month 10/12/2017 01/11/2018 Inactive [place] Thyroid 90 mg tablet RxNorm: 013148 1/2 Tablet(s) PO melinda y 1/2 TABLET(S) PO DAILY 08/06/2017 01/11/2018 Inactive [place] Thyroid 90 mg tablet RxNorm: 920164 1/2 TABLET(S) PO DAILY 07/14/2017 08/05/2017 Inactive Keppra 500 mg tablet RxNorm: 900802 1 Tablet(s) PO BID 05/13/2017 08/05/2017 Inactive Deplin (algal oil) 1 5 mg-90.314 mg capsule RxNorm: TAKE ONE CAPSULE BY MOUTH O NE TIME DAILY 05/13/2017 01/11/2018 Inactive Keppra 250 mg tablet RxNorm: 821976 1 Tablet(s) PO daily 04/23/2017 04/22/2017 Inactive take 1 tab qd x 1 week then increase to BID Keppra 250 mg tablet RxNorm: 520783 1 Tablet(s) PO daily 04/23/2017 05/12/2017 Inactive take 1 tab qd x 1 week then increase to BID cyclobenzaprine 5 mg tablet RxNorm: 781929 1 Tablet(s) PO TID as needed 02/03/2017 02/22/2017 In active cyclobenzaprine 5 mg tablet RxNorm: 237680 1 Tablet(s) PO TID as needed 02/03/2017 02/02/2017 In active [place] Thyroid 90 mg tablet RxNorm: 880120 1/2 Tablet(s) PO daily 11/19/2016 03/18/2017 Inactive amitriptyline 10 mg tablet RxNorm: 805697 1/2 to 1 Tablet(s) PO QPM 11/19/2016 11/13/2017 Inactive fluconazole 50 mg ta blet RxNorm: 304331 1 Tablet(s) PO daily 08/20/2016 09/02/2016 Inactive [place] Thyroid 90 mg tablet RxNorm: 269055 1/2 Tablet(s) PO daily 08/11/2016 11/18/2016 Inactive Flagyl 500 mg tablet RxNorm: 033028 1 Tablet(s) PO TID 07/28/2016 01/11/2018 Inactive Flagyl 500 mg tablet RxNorm: 545650 1 Tablet(s) PO TID 07/17/2016 07/27/2016 Inactive amitriptyline 10 mg tablet RxNorm: 271987 1/2 to 1 Tablet(s) PO QPM 07/03/2016 10/30/2016 Inactive metronidazole 500 mg tablet RxNorm: 980501 1 Tablet(s) PO QID 07/03/2016 07/12/2016 Inactive amitriptyline 25 mg tablet RxNorm: 204464 1/2 -1 Tablet(s) PO Q HS as needed insomnia 06/26/2016 07/02/2016 Inactive vancomycin 125 mg ca psule RxNorm: 699795 1 Capsule(s) PO QID 06/20/2016 06/29/2016 Inactive [place] Thyroid 30 mg tablet RxNorm: 970256 1.5 Tablet(s) PO daily 06/20/2016 06/19/2016 Inactive [place] Thyroid 30 mg tablet RxNorm: 441845 1.5 Tablet(s) PO daily 06/20/2016 08/10/2016 Inactive fluconazole 50 mg ta blet RxNorm: 727993 1 Tablet(s) PO daily 06/16/2016 08/19/2016 Inactive amitriptyline 25 mg tablet RxNorm: 704444 1/2 -1 Tablet(s) PO Q HS as needed insomnia 06/12/2016 06/11/2016 Inactive amitriptyline 25 mg tablet RxNorm: 990350 1/2 -1 Tablet(s) PO Q HS as needed insomnia 06/12/2016 06/25/2016 Inactive vancomycin 125 mg ca psule RxNorm: 834733 1 Capsule(s) PO QID 06/12/2016 06/19/2016 Inactive fluconazole 50 mg ta blet RxNorm: 791570 1 Tablet(s) PO daily 06/12/2016 06/15/2016 Inactive Diflucan 150 mg tablet RxNorm: 788040 1 Tablet(s) PO daily 06/05/2016 06/09/2016 Inactive Deplin (algal oil) 1 5 mg-90.314 mg capsule RxNorm: 1 Capsule(s) PO daily 06/05/2016 06/04/2016 In active Diflucan 150 mg tablet RxNorm: 342124 1 Tablet(s) PO daily 06/05/2016 06/04/2016 Inactive Deplin (algal oil) 1 5 mg-90.314 mg capsule RxNorm: 1 Capsule(s) PO daily 06/05/2016 05/12/2017 In active nystatin 500,000 uni t tablet RxNorm: 668478 4 Tablet(s) PO daily 05/21/2016 09/17/2016 Inactive Vitamin D3 5,000 uni t tablet RxNorm: 167563 Tablet(s) PO daily 05/07/2016 No Stop Date Active nystatin 500,000 uni t tablet RxNorm: 747832 1 Tablet(s) PO Q4H 05/07/2016 05/20/2016 Inactive fluconazole 100 mg t ablet RxNorm: 805670 1 Tablet(s) PO daily 05/07/2016 06/11/2016 Inactive progesterone microni zed 100 mg capsule RxNorm: 531191 3 Capsule(s) PO daily on days 1- 25 of each month 05/07/2016 2017 Inactive metronidazole 500 mg tablet RxNorm: 419465 1 Tablet(s) PO TID 04/30/2016 05/09/2016 Inactive metronidazole 500 mg tablet RxNorm: 431161 1 Tablet(s) PO TID 04/30/2016 04/29/2016 Inactive vancomycin 125 mg ca psule RxNorm: 110129 1 Capsule(s) PO QID 04/29/2016 05/08/2016 Inactive vancomycin 125 mg ca psule RxNorm: 305108 1 Capsule(s) PO QID 04/29/2016 04/28/2016 Inactive Flagyl 500 mg tablet RxNorm: 677117 1 Tablet(s) PO TID 04/09/2016 04/08/2016 Inactive Flagyl 500 mg tablet RxNorm: 620971 1 Tablet(s) PO TID 04/09/2016 04/22/2016 Inactive carvedilol 3.125 mg tablet RxNorm: 216115 1 Tablet(s) PO BID 04/08/2016 2017 Inactive [place] Thyroid 60 mg tablet RxNorm: 970250 Tablet(s) PO 1 Tablet (s) daily 01/31/2016 06/19/2016 In active Pt request 90 day supply 11/23/2015 11:1 1:54 AM [place] Thyroid 30 mg tablet RxNorm: 810725 1 Tablet(s) daily 01/28/2016 01/30/2016 Inactive Pt request 90 day supply 11/23/2015 11:1 1:54 AM [place] Thyroid 30 mg tablet RxNorm: 302741 1 Tablet(s) daily 01/21/2016 01/27/2016 Inactive Pt request 90 day supply 11/23/2015 11:1 1:54 AM [place] Thyroid 30 mg tablet RxNorm: 460523 Tablet(s) TAKE ONE AN D ONE-HALF (45 MG) TABLET BY MOUTH EVERY DAY 01/02/2016 01/20/2016 Inactive Pt request 90 day supply 11/23/2015 11:11:54 AM Xylocaine 20 mg/mL ( 2 %) injection solution RxNorm: 4724871 2.5 Milliliter(s) In j BID with cefepime 12/27/2015 01/25/2016 Inactive cefepime 1 gram solu tion for injection RxNorm: 1275125 Inj 12/1012/27/2015 Inactive [place] Thyroid 30 mg tablet RxNorm: 229616 TAKE ONE TABLET BY MO [facility] EVERY DAY 11/23/2015 01/01/2016 In active Pt request 90 day supply 11/23/2015 11:1 1:54 AM Voltaren 1 % topical gel RxNorm: 892963 2 Gram(s) TOP QID 09/24/2015 12/26/2015 Inactive cyclobenzaprine 10 m g tablet RxNorm: 235155 1 Tablet(s) PO Q6 as needed 08/27/2015 05/06/2016 In active [place] Thyroid 30 mg tablet RxNorm: 111717 1 Tablet(s) PO daily 06/21/2015 06/20/2015 Inactive [place] Thyroid 30 mg tablet RxNorm: 079131 1 Tablet(s) PO daily 06/21/2015 11/22/2015 Inactive Synthroid 25 mcg tablet RxNorm: 686084 1 Tablet(s) PO daily 06/07/2015 06/06/2015 Inactive [facility]ASE[facility]-1 Synthroid 25 mcg tablet RxNorm: 937968 1 Tablet(s) PO daily 06/07/2015 06/20/2015 Inactive [facility]ASEY-1 ofloxacin 0.3 % ear drops RxNorm: 603536 1-2 Drop(s) OTIC OU Q 4H as needed No Start Date Active Aspirin Low Dose 81 mg tablet,delayed release RxNorm: 128070 1 Tablet(s) PO daily No Start Date Active tyrosine (bulk) powder RxNorm: 1 Miscellaneous dash every am No Start Date Active arginine (L-arginine ) oral RxNorm: 1091 oral No Sta rt Date Active glutathione RxNorm: 4890 miscellaneous No Start Date Active Plaquenil 200 mg tablet RxNorm: 356543 1 Tablet(s) PO BID No Start Date 05/19/2016 Inactive fluconazole 100 mg t ablet RxNorm: 749993 1/2 Tablet(s) PO daily No Start Date 05/06/2016 Inactive fluconazole 150 mg t ablet RxNorm: 483348 1 Tablet(s) PO QW x4 No Start Date 12/26/2015 Inactive progesterone microni zed 100 mg capsule RxNorm: 195694 2 Capsule(s) PO daily No Start Date 05/06/2016 Inactive nystatin 500,000 uni t tablet RxNorm: 783749 1 Tablet(s) PO QID No Start Date 05/06/2016 Inactive cyclobenzaprine 10 m g tablet RxNorm: 474029 1 Tablet(s) PO Q6 as needed No Start Date 08/26/2015 Inactive vitamin K oral RxNorm: 8308 oral No Start Date 12/26/2015 Inactive carvedilol 3.125 mg tablet RxNorm: 748558 1 Tablet(s) PO daily No Start Date 04/07/2016 Inactive lisinopril 5 mg tablet RxNorm: 026129 1 Tablet(s) PO daily No Start Date 05/12/2017 Inactive azithromycin 250 mg tablet RxNorm: 710269 1 Tablet(s) PO daily will incrase to 2 per day No Start Date 12/26/2015 Inactive Probiotic 4X oral RxNorm: 6294171 oral No Start Date 01/07/2016 Inactive Imitrex 50 mg tablet RxNorm: 405770 TAKE WITH ONSET OF MIGRAINE- MAY TAKE AN ADDITIONAL DOSE IF NO RELIEF OF HEADACHE IN 1 HOUR- MAX OF 3 DOSES IN 24 HOURS No Start Date 06/13/2018 Inactive Vitamin D3 1,000 uni t tablet RxNorm: 258263 Tablet(s) PO daily No Start Date 05/06/2016 Inactive progesterone microni zed 100 mg capsule RxNorm: 660195 3 Capsule(s) PO daily rx from [facility] No Start Date 12/26/2015 Inactive lorazepam 0.5 mg tablet RxNorm: 173592 1/2-1 Tablet(s) PO daily as needed No Start Date 03/10/2016 Inactive Multiple Vitamin oral RxNorm: 10986 oral No Start Date 05/06/2016 Inactive Medication Administered Medication Codes Instruc tions Start Date Status Kenalog 40 mg/mL suspension for injection RxNorm: 6357653 Milliliter 01/10/2019 No longer Active Kenalog 40 mg/mL suspension for injection RxNorm: 6450328 1.5Milliliter 05/24/2018 No longer Active cefepime 1 gram solution for injection RxNorm: 5235647 12/27/2015 No longer A ctive Immunizations No [...] Code Result Date Vitamin D 25 Oh [id number] VITAMIN D, 25 HYDROXY 51.28 ng/mL 02/18/2019 Tsh Ord6 TSH (3rd IS) 0.59 uIU/mL 02/18/2019 Free T4 Tpi119 FREE T4 0.64 ng/dL 02/18/2019 Lipid Ord30 [...] 30.4 pg 02/18/2019 Cbc With Differential Ord2 [place]% 15.5 % 02/18/2019 Cbc With Differential Ord2 [...] 1.30 K/ul 02/18/2019 Cbc With Differential Ord2 [place] ABS# 0.7 K/ul 02/18/2019 Cbc With Differential Ord2 [place] ABS# 0.2 K/ul 02/18/2019 Cbc With Differential Ord2 Baso ABS# 0.0 K/ul 02/18/2019 Ferritin Ord22 FERRITIN 31.1 ng/mL 02/18/2019 Comp Metabolic Aiv254 NA 145 mEq/L 06/14/2018 Comp Metabolic Umd570 K 4.0 mEq/L 06/14/2018 Comp Metabolic Jjg515 CL 106 mEq/L 06/14/2018 Comp Metabolic Hrg497 CO2 31.0 mEq/L 06/14/2018 Comp Metabolic Hbl179 AN ION GAP 12 06/14/2018 Comp Metabolic Nmk512 GL UCOSE 88 mg/dL 06/14/2018 Comp Metabolic Wpx104 Cr eat 0.7 mg/dL 06/14/2018 Comp Metabolic Wnm398 eG FR 92 ml/min/1.73m2 06/14 Comp Metabolic Vul729 BUN 9 mg/dL 06/14/2018 Comp Metabolic Dbo734 B/ C Ratio 13.6 Ratio 06/14/2018 Comp Metabolic Nlg579 CA LCIUM 9.0 mg/dL 06/14/2018 Comp Metabolic Cyt789 AL K PHOS 36 U/L 06/14/2018 Comp Metabolic Skw072 T(SGOT) 21 U/L 06/14/2018 Comp Metabolic Jyb563 AL T(SGPT) 22 U/L 06/14/2018 Comp Metabolic Aqn341 BI LI T 0.3 mg/dL 06/14/2018 Comp Metabolic Bsr760 AL BUMIN 3.8 g/dL 06/14/2018 Comp Metabolic Ltw562 TP RO 5.8 g/dL 06/14/2018 Comp Metabolic Apt337 GL OB 2.0 g/dL 06/14/2018 Comp Metabolic Zoa283 A/ G Ratio 2.0 Ratio 06/14/2018 Comp Metabolic Oil815 Os mo 287 mOsmo 06/14/2018 Free T4 Uzf293 FREE T4 0.66 ng/dL 06/14/2018 Tsh Ord6 [...] 29.8 pg 06/14/2018 Cbc With Differential Ord2 [place]% 13.9 % 06/14/2018 Cbc With Differential Ord2 [...] 1.40 K/ul 06/14/2018 Cbc With Differential Ord2 [place] ABS# 0.6 K/ul 06/14/2018 Cbc With Differential Ord2 Eos ABS# 0.2 K/ul 06/14/2018 Cbc With Differential Ord2 Baso ABS# 0.0 K/ul 06/14/2018 Free T4 Mmz166 FREE T4 0.63 ng/dL 01/05/2018 Lipid Ord30 CHOL 246 mg/dL 01/05/2018 Lipid Ord30 HDL 79.0 mg/dl 01/05/2018 Lipid Ord30 TRIG 124 mg/dL 01/05/2018 Lipid Ord30 LDL 142 mg/dL 01/05/2018 Lipid Ord30 C/HDL 3.1 Ratio 01/05/2018 Tsh Ord6 TSH (3rd IS) 1.48 uIU/mL 01/05/2018 Tsh Ord6 hTSH II 2.03 uIU/mL 08/07/2017 Comp Metabolic Voe754 NA 142 mEq/L 08/07/2017 Comp Metabolic Eyy656 K 4.1 mEq/L 08/07/2017 Comp Metabolic Vvh042 CL 105 mEq/L 08/07/2017 Comp Metabolic Zik428 CO2 27.0 mEq/L 08/07/2017 Comp Metabolic Pwd448 AN ION GAP 14 08/07/2017 Comp Metabolic Mld665 GL UCOSE 89 mg/dL 08/07/2017 Comp Metabolic Hjs242 Cr eat 0.7 mg/dL 08/07/2017 Comp Metabolic Too856 eG FR 86 ml/min/1.73m2 08/07 Comp Metabolic Lgn022 BUN 16 mg/dL 08/07/2017 Comp Metabolic Xbv835 B/ C Ratio 22.9 Ratio 08/07/2017 Comp Metabolic Acg658 CA LCIUM 9.8 mg/dL 08/07/2017 Comp Metabolic Bqe323 AL K PHOS 41 U/L 08/07/2017 Comp Metabolic Dgu847 T(SGOT) 26 U/L 08/07/2017 Comp Metabolic Mpk249 AL T(SGPT) 21 U/L 08/07/2017 Comp Metabolic Nfa222 BI LI T 0.5 mg/dL 08/07/2017 Comp Metabolic Twu325 AL BUMIN 4.3 g/dL 08/07/2017 Comp Metabolic Iyf353 TP RO 6.6 g/dL 08/07/2017 Comp Metabolic Mag009 GL OB 2.3 g/dL 08/07/2017 Comp Metabolic Dyj308 A/ G Ratio 1.9 Ratio 08/07/2017 Comp Metabolic Tun089 Os mo 284 mOsmo 08/07/2017 Free T4 Aeo666 FREE T4 0.64 ng/dL 08/07/2017 Lipid Ord30 [...] 30.3 pg 08/07/2017 Cbc With Differential Ord2 [place]% 13.9 % 08/07/2017 Cbc With Differential Ord2 [...] 1.49 K/ul 08/07/2017 Cbc With Differential Ord2 [place] ABS# 0.6 K/ul 08/07/2017 Cbc With Differential [...] 30.5 pg 11/20/2016 Cbc With Differential Ord2 [place]% 10.8 % 11/20/2016 Cbc With Differential Ord2 [...] 1.62 K/ul 11/20/2016 Cbc With Differential Ord2 [place] ABS# 0.5 K/ul 11/20/2016 Cbc With Differential Ord2 Eos ABS# 0.2 K/ul 11/20/2016 Cbc With Differential Ord2 Baso ABS# 0.0 K/ul 11/20/2016 Free T4 Gqa965 FREE T4 0.80 ng/dL 11/20/2016 Tsh Ord6 hTSH II 1.35 uIU/mL 11/20/2016 Comp Metabolic Wfb226 NA 139 mEq/L 11/20/2016 Comp Metabolic Qrq078 K 3.9 mEq/L 11/20/2016 Comp Metabolic Kzk623 CL 103 mEq/L 11/20/2016 Comp Metabolic Gvy315 CO2 30.0 mEq/L 11/20/2016 Comp Metabolic Mdi860 AN ION GAP 10 11/20/2016 Comp Metabolic Ohj981 GL UCOSE 85 mg/dL 11/20/2016 Comp Metabolic Ltk140 Cr eat 0.7 mg/dL 11/20/2016 Comp Metabolic Vnc518 eG FR 93 ml/min/1.73m2 11/20 Comp Metabolic Xjc325 BUN 12 mg/dL 11/20/2016 Comp Metabolic Rjo983 B/ C Ratio 18.2 Ratio 11/20/2016 Comp Metabolic Mrv040 CA LCIUM 9.1 mg/dL 11/20/2016 Comp Metabolic Voi871 AL K PHOS 34 U/L 11/20/2016 Comp Metabolic Veo271 T(SGOT) 18 U/L 11/20/2016 Comp Metabolic Eri199 AL T(SGPT) 14 U/L 11/20/2016 Comp Metabolic Nkc321 BI LI T 0.5 mg/dL 11/20/2016 Comp Metabolic Imo359 AL BUMIN 4.2 g/dL 11/20/2016 Comp Metabolic Gaa058 TP RO 6.3 g/dL 11/20/2016 Comp Metabolic Mlw031 GL OB 2.1 g/dL 11/20/2016 Comp Metabolic Rpe670 A/ G Ratio 2.0 Ratio 11/20/2016 Comp Metabolic Vau298 Os mo 277 mOsmo 11/20/2016 Lipid Ord30 CHOL 189 mg/dL 11/20/2016 Lipid Ord30 HDL 81.0 mg/dl 11/20/2016 Lipid Ord30 TRIG 77 mg/dL 11/20/2016 Lipid Ord30 LDL 93 mg/dL 11/20/2016 Lipid Ord30 C/HDL 2.3 Ratio 11/20/2016 Testosterone Free Direct [id number] FREE TESTOSTERONE 0.7 pg/mL 10/06/2016 Estradiol 538553 ESTRADI OL 5.9 pg/mL 10/03/2016 Cortisol 398349 CORTISOL 23 ug/dL 10/03/2016 Progesterone Fai532 Prog 17.38 ng/mL 10/01/2016 Free T4 Dqy140 FREE T4 0.66 ng/dL 08/13/2016 Tsh Ord6 hTSH II 0.99 uIU/mL 08/13/2016 Testosterone Free Direct [id number] FREE TESTOSTERONE <0.2 pg/mL 07/05/2016 Estradiol 169427 ESTRADI OL <5.0 pg/mL 07/03/2016 Progesterone Uzg243 Prog 23.37 ng/mL 07/02/2016 Tsh Ord6 hTSH II 0.24 uIU/mL 06/17/2016 Free T4 Viw646 FREE T4 0.86 ng/dL 06/17/2016 Estradiol 726813 ESTRADI OL <5.0 pg/mL 05/21/2016 Comp Metabolic Zjw814 NA 140 mEq/L 05/20/2016 Comp Metabolic Kqd608 K 4.1 mEq/L 05/20/2016 Comp Metabolic Cel938 CL 106 mEq/L 05/20/2016 Comp Metabolic Jbw352 CO2 26.0 mEq/L 05/20/2016 Comp Metabolic Ran712 AN ION GAP 12 05/20/2016 Comp Metabolic Tgv965 GL UCOSE 81 mg/dL 05/20/2016 Comp Metabolic Nww733 Cr eat 0.5 mg/dL 05/20/2016 Comp Metabolic Ofm246 eG FR 119 ml/min/1.73m2 05/09 Comp Metabolic Tjq127 BUN 15 mg/dL 05/20/2016 Comp Metabolic Sei696 B/ C Ratio 28.3 Ratio 05/20/2016 Comp Metabolic Thj485 CA LCIUM 8.9 mg/dL 05/20/2016 Comp Metabolic Ioe982 AL K PHOS 36 U/L 05/20/2016 Comp Metabolic Hml857 T(SGOT) 25 U/L 05/20/2016 Comp Metabolic Ays747 AL T(SGPT) 23 U/L 05/20/2016 Comp Metabolic Xry017 BI LI T 0.4 mg/dL 05/20/2016 Comp Metabolic Iyv515 AL BUMIN 3.7 g/dL 05/20/2016 Comp Metabolic Yst513 TP RO 5.9 g/dL 05/20/2016 Comp Metabolic Zgx964 GL OB 2.2 g/dL 05/20/2016 Comp Metabolic Iio247 A/ G Ratio 1.7 Ratio 05/20/2016 Comp Metabolic Rax294 Os mo 279 mOsmo 05/20/2016 Progesterone Qwa102 Prog 8.44 ng/mL 05/20/2016 Cbc With Differential [...] 30.2 pg 05/20/2016 Cbc With Differential Ord2 [place]% 13.0 % 05/20/2016 Cbc With Differential Ord2 [...] 0.85 K/ul 05/20/2016 Cbc With Differential Ord2 [place] ABS# 0.6 K/ul 05/20/2016 Cbc With Differential [...] collection if refrigerated) 05/20/2016 Testosterone Free Direct [id number] FREE TESTOSTERONE 0.6 pg/mL 05/19/2016 Estradiol 145915 ESTRADI OL <5.0 pg/mL 05/16/2016 Comp Metabolic Fbz009 NA 140 mEq/L 05/15/2016 Comp Metabolic Lle432 K 3.8 mEq/L 05/15/2016 Comp Metabolic Tmi170 CL 106 mEq/L 05/15/2016 Comp Metabolic Bnu085 CO2 26.0 mEq/L 05/15/2016 Comp Metabolic Szz831 AN ION GAP 12 05/15/2016 Comp Metabolic Nxd186 GL UCOSE 77 mg/dL 05/15/2016 Comp Metabolic Oza892 Cr eat 0.5 mg/dL 05/15/2016 Comp Metabolic Jje762 eG FR 144 ml/min/1.73m2 05/2016 Comp Metabolic Usw789 BUN 18 mg/dL 05/15/2016 Comp Metabolic Lya231 B/ C Ratio 40.0 Ratio 05/15/2016 Comp Metabolic Uao602 CA LCIUM 8.8 mg/dL 05/15/2016 Comp Metabolic Opa274 AL K PHOS 28 U/L 05/15/2016 Comp Metabolic Vgx298 T(SGOT) 19 U/L 05/15/2016 Comp Metabolic Qzy298 AL T(SGPT) 19 U/L 05/15/2016 Comp Metabolic Qbx795 BI LI T 0.5 mg/dL 05/15/2016 Comp Metabolic Aab498 AL BUMIN 3.6 g/dL 05/15/2016 Comp Metabolic Cht254 TP RO 5.6 g/dL 05/15/2016 Comp Metabolic Kqf332 GL OB 2.0 g/dL 05/15/2016 Comp Metabolic Fhg547 A/ G Ratio 1.8 Ratio 05/15/2016 Comp Metabolic Qwc855 Os mo 280 mOsmo 05/15/2016 Progesterone Jsx079 Prog 9.08 ng/mL 05/15/2016 Cbc With Differential [...] 29.9 pg 05/15/2016 Cbc With Differential Ord2 [place]% 14.1 % 05/15/2016 Cbc With Differential Ord2 [...] 1.42 K/ul 05/15/2016 Cbc With Differential Ord2 [place] ABS# 0.6 K/ul 05/15/2016 Cbc With Differential [...] U-Prote in Negative 05/15/2016 Urinalysis Ord28 U-Urobi illo 0.2 E.U./dL E.U./dL Urinalysis Ord28 U-Nitri svetlana [...] Ord28 U-Com None 05/15/2016 Testosterone Free Direct [id number] FREE TESTOSTERONE 0.2 pg/mL 05/09/2016 Estradiol 348920 ESTRADI OL <5.0 pg/mL 05/07/2016 Comp Metabolic Uek618 NA 141 mEq/L 05/06/2016 Comp Metabolic Yqt238 K 3.6 mEq/L 05/06/2016 Comp Metabolic Eyx059 CL 107 mEq/L 05/06/2016 Comp Metabolic Lqo017 CO2 28.0 mEq/L 05/06/2016 Comp Metabolic Sia807 AN ION GAP 10 05/06/2016 Comp Metabolic Mxk116 GL UCOSE 138 mg/dL 05/06/2016 Comp Metabolic Hxi979 Cr eat 0.5 mg/dL 05/06/2016 Comp Metabolic Ugu437 eG FR 119 ml/min/1.73m2 04/10 Comp Metabolic Edb125 BUN 16 mg/dL 05/06/2016 Comp Metabolic Yss600 B/ C Ratio 30.2 Ratio 05/06/2016 Comp Metabolic Zcy991 CA LCIUM 8.9 mg/dL 05/06/2016 Comp Metabolic Dmd696 AL K PHOS 29 U/L 05/06/2016 Comp Metabolic Ybu663 T(SGOT) 20 U/L 05/06/2016 Comp Metabolic Jbg467 AL T(SGPT) 21 U/L 05/06/2016 Comp Metabolic Etc838 BI LI T 0.4 mg/dL 05/06/2016 Comp Metabolic Zyt697 AL BUMIN 3.6 g/dL 05/06/2016 Comp Metabolic Grw883 TP RO 5.5 g/dL 05/06/2016 Comp Metabolic Rgg239 GL OB 1.9 g/dL 05/06/2016 Comp Metabolic Wik799 A/ G Ratio 1.9 Ratio 05/06/2016 Comp Metabolic Mlx418 Os mo 285 mOsmo 05/06/2016 Urinalysis Ord28 [...] hours from collection if refrigerated) 05/06/2016 Progesterone Yov572 Prog 0.98 ng/mL 05/06/2016 Cbc With Differential [...] 29.2 pg 05/06/2016 Cbc With Differential Ord2 [place]% 10.1 % 05/06/2016 Cbc With Differential Ord2 [...] 1.16 K/ul 05/06/2016 Cbc With Differential Ord2 [place] ABS# 0.4 K/ul 05/06/2016 Cbc With Differential [...] 29.6 pg 04/29/2016 Cbc With Differential Ord2 [place]% 13.1 % 04/29/2016 Cbc With Differential Ord2 [...] 1.42 K/ul 04/29/2016 Cbc With Differential Ord2 [place] ABS# 0.5 K/ul 04/29/2016 Cbc With Differential Ord2 [place] ABS# 0.2 K/ul 04/29/2016 Cbc With Differential Ord2 Baso ABS# 0.0 K/ul 04/29/2016 Comp Metabolic Xus301 NA 141 mEq/L 04/29/2016 Comp Metabolic Ygp580 K 4.0 mEq/L 04/29/2016 Comp Metabolic Ije358 CL 108 mEq/L 04/29/2016 Comp Metabolic Ogn210 CO2 27.0 mEq/L 04/29/2016 Comp Metabolic Ygl791 AN ION GAP 10 04/29/2016 Comp Metabolic Yda811 GL UCOSE 69 mg/dL 04/29/2016 Comp Metabolic Wtx136 Cr eat 0.5 mg/dL 04/29/2016 Comp Metabolic Hiz318 eG FR 122 ml/min/1.73m2 04/10 Comp Metabolic Wkf885 BUN 19 mg/dL 04/29/2016 Comp Metabolic Pxt448 B/ C Ratio 36.5 Ratio 04/29/2016 Comp Metabolic Jwz633 CA LCIUM 9.1 mg/dL 04/29/2016 Comp Metabolic Tht553 AL K PHOS 31 U/L 04/29/2016 Comp Metabolic Yqq194 T(SGOT) 20 U/L 04/29/2016 Comp Metabolic Ysq252 AL T(SGPT) 22 U/L 04/29/2016 Comp Metabolic Dyv921 BI LI T 0.6 mg/dL 04/29/2016 Comp Metabolic Col559 AL BUMIN 3.8 g/dL 04/29/2016 Comp Metabolic Suk502 TP RO 5.9 g/dL 04/29/2016 Comp Metabolic Gfk187 GL OB 2.1 g/dL 04/29/2016 Comp Metabolic Oxo376 A/ G Ratio 1.8 Ratio 04/29/2016 Comp Metabolic Ohr883 Os mo 282 mOsmo 04/29/2016 Progesterone Fku707 Prog 5.99 ng/mL 04/29/2016 Urinalysis Ord28 U-Color [...] from collection if refrigerated) 04/25/2016 Comp Metabolic Ctg126 NA 138 mEq/L 04/25/2016 Comp Metabolic Sdp552 K 3.6 mEq/L 04/25/2016 Comp Metabolic Low558 CL 105 mEq/L 04/25/2016 Comp Metabolic Mns620 CO2 27.0 mEq/L 04/25/2016 Comp Metabolic Wkr653 AN ION GAP 10 04/25/2016 Comp Metabolic Kfj271 GL UCOSE 190 mg/dL 04/25/2016 Comp Metabolic Twj728 Cr eat 0.5 mg/dL 04/25/2016 Comp Metabolic Xil047 eG FR 128 ml/min/1.73m2 04/09 Comp Metabolic Qns669 BUN 17 mg/dL 04/25/2016 Comp Metabolic Ibh407 B/ C Ratio 34.0 Ratio 04/25/2016 Comp Metabolic Eeh632 CA LCIUM 8.7 mg/dL 04/25/2016 Comp Metabolic Ozq300 AL K PHOS 32 U/L 04/25/2016 Comp Metabolic Fby431 T(SGOT) 23 U/L 04/25/2016 Comp Metabolic Uug063 AL T(SGPT) 22 U/L 04/25/2016 Comp Metabolic Znt099 BI LI T 0.5 mg/dL 04/25/2016 Comp Metabolic Hrb262 AL BUMIN 3.6 g/dL 04/25/2016 Comp Metabolic Nxm840 TP RO 5.5 g/dL 04/25/2016 Comp Metabolic Pqu630 GL OB 1.9 g/dL 04/25/2016 Comp Metabolic Ynz453 A/ G Ratio 1.9 Ratio 04/25/2016 Comp Metabolic Mon868 Os mo 282 mOsmo 04/25/2016 Cbc With [...] 29.6 pg 04/25/2016 Cbc With Differential Ord2 [place]% 13.0 % 04/25/2016 Cbc With Differential Ord2 [...] 1.01 K/ul 04/25/2016 Cbc With Differential Ord2 [place] ABS# 0.4 K/ul 04/25/2016 Cbc With Differential [...] 29.2 pg 04/04/2016 Cbc With Differential Ord2 [place]% 16.1 % 04/04/2016 Cbc With Differential Ord2 [...] 1.32 K/ul 04/04/2016 Cbc With Differential Ord2 [place] ABS# 0.8 K/ul 04/04/2016 Cbc With Differential Ord2 Eos ABS# 0.2 K/ul 04/04/2016 Cbc With Differential Ord2 Baso ABS# 0.0 K/ul 04/04/2016 Comp Metabolic Evq145 NA 140 mEq/L 04/04/2016 Comp Metabolic Log163 K 4.1 mEq/L 04/04/2016 Comp Metabolic Ogq446 CL 106 mEq/L 04/04/2016 Comp Metabolic Klb968 CO2 27.0 mEq/L 04/04/2016 Comp Metabolic Zle796 AN ION GAP 11 04/04/2016 Comp Metabolic Kyh793 GL UCOSE 71 mg/dL 04/04/2016 Comp Metabolic Hdd889 Cr eat 0.5 mg/dL 04/04/2016 Comp Metabolic Tvh433 eG FR 131 ml/min/1.73m2 03/10 Comp Metabolic Cnp645 BUN 14 mg/dL 04/04/2016 Comp Metabolic Lge201 B/ C Ratio 28.6 Ratio 04/04/2016 Comp Metabolic Yzb286 CA LCIUM 9.1 mg/dL 04/04/2016 Comp Metabolic Epo380 AL K PHOS 42 U/L 04/04/2016 Comp Metabolic Irs267 T(SGOT) 18 U/L 04/04/2016 Comp Metabolic Jsg173 AL T(SGPT) 17 U/L 04/04/2016 Comp Metabolic Orr394 BI LI T 0.4 mg/dL 04/04/2016 Comp Metabolic Uwg578 AL BUMIN 3.8 g/dL 04/04/2016 Comp Metabolic Cml824 TP RO 6.0 g/dL 04/04/2016 Comp Metabolic Nke815 GL OB 2.2 g/dL 04/04/2016 Comp Metabolic Dlw797 A/ G Ratio 1.7 Ratio 04/04/2016 Comp Metabolic Qag392 Os mo 278 mOsmo 04/04/2016 Urinalysis Ord28 [...] 29.6 pg 03/28/2016 Cbc With Differential Ord2 [place]% 11.7 % 03/28/2016 Cbc With Differential Ord2 [...] 1.14 K/ul 03/28/2016 Cbc With Differential Ord2 [place] ABS# 0.4 K/ul 03/28/2016 Cbc With Differential Ord2 Eos ABS# 0.1 K/ul 03/28/2016 Cbc With Differential Ord2 Baso ABS# 0.0 K/ul 03/28/2016 Cbc With Differential Ord2 New Analyzer Notice Please note new ref ranges s tarting 11-21-2015 due to implemntation of new five part differential hematolgy analyzer. 03/28/2016 Comp Metabolic Azx225 NA 137 mEq/L 03/28/2016 Comp Metabolic Fwa784 K 3.5 mEq/L 03/28/2016 Comp Metabolic Jia823 CL 105 mEq/L 03/28/2016 Comp Metabolic Tkr197 CO2 27.0 mEq/L 03/28/2016 Comp Metabolic Rbj081 AN ION GAP 9 03/28/2016 Comp Metabolic Bnh024 GL UCOSE 174 mg/dL 03/28/2016 Comp Metabolic Slq515 Cr eat 0.5 mg/dL 03/28/2016 Comp Metabolic Gzm288 eG FR 131 ml/min/1.73m2 03/10 Comp Metabolic Vxg798 BUN 13 mg/dL 03/28/2016 Comp Metabolic Xyg268 B/ C Ratio 26.5 Ratio 03/28/2016 Comp Metabolic Kwj042 CA LCIUM 8.7 mg/dL 03/28/2016 Comp Metabolic Lvv259 AL K PHOS 31 U/L 03/28/2016 Comp Metabolic Ydh180 T(SGOT) 20 U/L 03/28/2016 Comp Metabolic Gwd145 AL T(SGPT) 19 U/L 03/28/2016 Comp Metabolic Yez956 BI LI T 0.4 mg/dL 03/28/2016 Comp Metabolic Ltl836 AL BUMIN 3.5 g/dL 03/28/2016 Comp Metabolic Drp619 TP RO 5.3 g/dL 03/28/2016 Comp Metabolic Nym004 GL OB 1.8 g/dL 03/28/2016 Comp Metabolic Unc253 A/ G Ratio 2.0 Ratio 03/28/2016 Comp Metabolic Vpl659 Os mo 278 mOsmo 03/28/2016 Urinalysis Ord28 [...] collection if refrigerated) 03/28/2016 Testosterone Free Direct [id number] FREE TESTOSTERONE <0.2 pg/mL 03/13/2016 Estradiol 606314 ESTRADI OL <5.0 pg/mL 03/12/2016 Progesterone Dsl131 Prog 0.56 ng/mL 03/10/2016 Homocyst(E)Ine Plasma 034097 HOMOCYSTEINE, TOTAL 10.9 umol/L 01/18/2016 Mthfr 268301 MTHFR C677T: HETEROZYGOUS MUTATION DETECTED 02/2016 Mthfr 841087 MTHFR A1298 C: HETEROZYGOUS MUTATION DETECTED 01/11/2016 Mthfr 741400 INTERPRETAT ION: 01/11/2016 Iodine Serum 443639 IOD INE, SERUM 131.0 ug/L 01/10/2016 Tsh Ord6 hTSH II 2.11 uIU/mL 01/07/2016 Comp Metabolic Nwp978 NA 139 mEq/L 01/07/2016 Comp Metabolic Qwp735 K 4.0 mEq/L 01/07/2016 Comp Metabolic Sjt111 CL 104 mEq/L 01/07/2016 Comp Metabolic Hzk284 CO2 26.0 mEq/L 01/07/2016 Comp Metabolic Mmb256 AN ION GAP 13 01/07/2016 Comp Metabolic Nkk378 GL UCOSE 86 mg/dL 01/07/2016 Comp Metabolic Qdu139 Cr eat 0.6 mg/dL 01/07/2016 Comp Metabolic Cmx022 eG FR 100 ml/min/1.73m2 12/11 Comp Metabolic Jfo635 BUN 18 mg/dL 01/07/2016 Comp Metabolic Dnh431 B/ C Ratio 29.0 Ratio 01/07/2016 Comp Metabolic Vpq608 CA LCIUM 9.4 mg/dL 01/07/2016 Comp Metabolic Jjp305 AL K PHOS 40 U/L 01/07/2016 Comp Metabolic Pnq297 T(SGOT) 20 U/L 01/07/2016 Comp Metabolic Jck922 AL T(SGPT) 24 U/L 01/07/2016 Comp Metabolic Wzh019 BI LI T 0.6 mg/dL 01/07/2016 Comp Metabolic Gqe089 AL BUMIN 4.1 g/dL 01/07/2016 Comp Metabolic Cqo614 TP RO 6.4 g/dL 01/07/2016 Comp Metabolic Tsh121 GL OB 2.3 g/dL 01/07/2016 Comp Metabolic Jfx620 A/ G Ratio 1.8 Ratio 01/07/2016 Comp Metabolic Jym856 Os mo 279 mOsmo 01/07/2016 Lipid Ord30 [...] Ord28 U-Com Culture to follow 11/26/2015 Progesterone Esu771 Prog >40.00 ng/mL 11/26/2015 Testosterone Free Direct [id number] FREE TESTOSTERONE 0.6 pg/mL 10/01/2015 Estradiol 664769 ESTRADI OL <5.0 pg/mL 09/26/2015 Urinalysis Ord28 [...] Urinalysis Ord28 U-Yeast NEGATIVE 09/25/2015 Comp Metabolic Abh010 NA 142 mEq/L 09/25/2015 Comp Metabolic Rjf192 K 4.3 mEq/L 09/25/2015 Comp Metabolic Sxl981 CL 110 mEq/L 09/25/2015 Comp Metabolic Pjm223 CO2 23.0 mEq/L 09/25/2015 Comp Metabolic Wsp722 AN ION GAP 13 09/25/2015 Comp Metabolic Vsx191 GL UCOSE 76 mg/dL 09/25/2015 Comp Metabolic Lgu674 Cr eat 0.8 mg/dL 09/25/2015 Comp Metabolic Ilp355 eG FR 79 ml/min/1.73m2 09/25 Comp Metabolic Bni497 BUN 17 mg/dL 09/25/2015 Comp Metabolic Cfv309 B/ C Ratio 22.4 Ratio 09/25/2015 Comp Metabolic Fzu616 CA LCIUM 9.4 mg/dL 09/25/2015 Comp Metabolic Qvj770 AL K PHOS 45 U/L 09/25/2015 Comp Metabolic Lnu177 T(SGOT) 20 U/L 09/25/2015 Comp Metabolic Qjv306 AL T(SGPT) 18 U/L 09/25/2015 Comp Metabolic Jqu904 BI LI T 0.5 mg/dL 09/25/2015 Comp Metabolic Seh056 AL BUMIN 4.0 g/dL 09/25/2015 Comp Metabolic Soc202 TP RO 6.2 g/dL 09/25/2015 Comp Metabolic Zdo754 GL OB 2.2 g/dL 09/25/2015 Comp Metabolic Ful671 A/ G Ratio 1.8 Ratio 09/25/2015 Comp Metabolic Ayv762 Os mo 283 mOsmo 09/25/2015 Tsh Ord6 hTSH II 4.05 uIU/mL 09/25/2015 Progesterone Xod598 Prog 21.38 ng/mL 09/25/2015 Free T4 Tdh884 FREE T4 0.78 ng/dL 09/25/2015 Cbc With [...] RDW 14.3 % 09/25/2015 Testosterone Free Direct 525882 FREE TESTOSTERONE 1.2 pg/mL 08/31/2015 Estradiol 872132 ESTRADI OL <5.0 pg/mL 08/29/2015 Progesterone Pyq598 Prog 4.37 ng/mL 08/28/2015 Fungal Screen I 825969 * *ASPERGILLUS AB BY ID . 07/23/2015 Fungal Screen I 488966 A SPERGILLUS AB BY ID None Detected 015 Fungal Screen I 269968 * *BLASTOMYCES ANTIBODY BY CF & ID . 07/23/2015 Fungal Screen I 396164 B LASTOMYCES AB,CF <1:8 07/23/2015 Fungal Screen I 389595 B LASTOMYCES AB,ID None Detected 015 Fungal Screen I 796224 * *MAXINE ANTIBODY BY ID . 07/23/2015 Fungal Screen I 039763 C ANDIDA AB BY ID Detected 07/23/2015 Fungal Screen I 018976 * *COCCIDIOIDES ANTIBODIES, IGG & IGM . 07/23/2015 Fungal Screen I 252141 C OCCIDIOIDES AB IGM 0.3 IV 07/23/2015 Fungal Screen I 704069 C OCCIDIOIDES AB IGG 0.4 IV 07/23/2015 Fungal Screen I 553987 * *HISTOPLASMA ANTIBODY BY ID . 07/23/2015 Fungal Screen I 111386 H ISTOPLASMA ABS (ID) None Detected 015 Francisella Tularensis Abs 540730 F. TULARENSIS, IGG 0 U/mL 07/17/2015 Francisella Tularensis Abs 670717 F. TULARENSIS, IGM 0 U/mL 07/17/2015 Vitamin D 25 Oh Ahe3446 VITAMIN D, 25 HYDROXY 142.21 ng/mL 07/13/2015 Antistrptolysin-O Qualitative Uym261 ASO Negative 07/12/2015 B12 Xqf074 B12 956.00 pg/ml 07/12/2015 Cbc With Differential [...] Ord2 RDW 15.1 % 07/10/2015 Free T4 Yte038 FREE T4 0.79 ng/dL 06/12/2015 Urinalysis Ord28 [...] Ord2 RDW 16.0 % 06/04/2015 Comp Metabolic Ldj923 NA 139 mEq/L 06/04/2015 Comp Metabolic Vxg080 K 3.9 mEq/L 06/04/2015 Comp Metabolic Iyo019 CL 108 mEq/L 06/04/2015 Comp Metabolic Oko768 CO2 26.0 mEq/L 06/04/2015 Comp Metabolic Vko003 AN ION GAP 9 06/04/2015 Comp Metabolic Muo889 GL UCOSE 74 mg/dL 06/04/2015 Comp Metabolic Pbd359 Cr eat 0.6 mg/dL 06/04/2015 Comp Metabolic Rdp198 eG FR 102 ml/min/1.73m2 05/10 Comp Metabolic Bey832 BUN 18 mg/dL 06/04/2015 Comp Metabolic Ctc527 B/ C Ratio 29.5 Ratio 06/04/2015 Comp Metabolic Diz044 CA LCIUM 9.0 mg/dL 06/04/2015 Comp Metabolic Hsf864 AL K PHOS 44 U/L 06/04/2015 Comp Metabolic Yvx945 T(SGOT) 22 U/L 06/04/2015 Comp Metabolic Mkk505 AL T(SGPT) 23 U/L 06/04/2015 Comp Metabolic Xxe154 BI LI T 0.4 mg/dL 06/04/2015 Comp Metabolic Ftf283 AL BUMIN 4.0 g/dL 06/04/2015 Comp Metabolic Axx065 TP RO 5.8 g/dL 06/04/2015 Comp Metabolic Mrf957 GL OB 1.8 g/dL 06/04/2015 Comp Metabolic Wbx500 A/ G Ratio 2.2 Ratio 06/04/2015 Comp Metabolic Aie599 Os mo 278 mOsmo 06/04/2015 Tsh Ord6 [...] clear 11/25/2018 None Full Exam - General 1995 Ears/Nose/Throat otoscopic exam Overall: external auditory canals [...] 4: G0439 03/11/2016 THER/PROPH/DIAG INJ SC/IM CPT-4: 10353 12/27/2015 Vital Signs Date Vital 01/24/2019 Blood Pressure 1: 140/78 Code: 8480-6 BMI: 19.9 Code: 55664-2 Heart Rate 1: 84 bpm Height: 5' SpO2: 95% Weight: 102 lbs 01/10/2019 Blood Pressure 1: 126/62 Code: 8480-6 BMI: 19.9 Code: 53386-7 Heart Rate 1: 90 bpm Height: 5' SpO2: 94% Temperature: 36.6 (C ) / 97.8 (F) Weight: 102 lbs 11/25/2018 Blood Pressure 1: 128/74 Code: 8480-6 BMI: 19.7 Code: 33143-9 Heart Rate 1: 86 bpm Height: 5' SpO2: 97% Weight: 101 lbs 09/15/2018 Blood Pressure 1: 130/70 Code: 8480-6 BMI: 20.6 Code: 81807-0 Heart Rate 1: 75 bpm Height: 5' SpO2: 99% Weight: 105 lbs 8 oz 09/10/2018 Blood Pressure 1: 126/68 Code: 8480-6 BMI: 20.7 Code: 74895-4 Heart Rate 1: 63 bpm Height: 5' SpO2: 96% Waist Measure (cm): 66 cm Weight: 106 lbs 06/01/2018 Blood Pressure 1: 156/76 Code: 8480-6 BMI: 20.1 Code: 45499-6 Heart Rate 1: 68 bpm Height: 5' SpO2: 99% Weight: 103 lbs 05/24/2018 Blood Pressure 1: 120/60 Code: 8480-6 BMI: 20.5 Code: 72143-5 Heart Rate 1: 82 bpm Height: 5' SpO2: 98% Weight: 105 lbs 05/19/2018 Blood Pressure 1: 140/72 Code: 8480-6 BMI: 20.5 Code: 66737-0 Heart Rate 1: 96 bpm Height: 5' SpO2: 98% Weight: 105 lbs 01/12/2018 Blood Pressure 1: 146/78 Code: 8480-6 BMI: 21.1 Code: 93657-9 Heart Rate 1: 85 bpm Height: 5' SpO2: 95% Weight: 108 lbs 10/12/2017 Blood Pressure 1: 138/72 Code: 8480-6 BMI: 21.1 Code: 00092-2 Heart Rate 1: 96 bpm Height: 5' SpO2: 98% Weight: 108 lbs 08/06/2017 Blood Pressure 1: 130/78 Code: 8480-6 BMI: 20.5 Code: 36134-7 Heart Rate 1: 89 bpm Height: 5' SpO2: 98% Weight: 105 lbs 05/13/2017 Blood Pressure 1: 122/70 Code: 8480-6 BMI: 20.5 Code: 99083-4 Heart Rate 1: 80 bpm Height: 5' SpO2: 97% Weight: 105 lbs 03/19/2017 Blood Pressure 1: 138/80 Code: 8480-6 BMI: 20.5 Code: 50231-5 Heart Rate 1: 83 bpm Height: 5' SpO2: 97% Waist Measure (cm): 74 cm Weight: 105 lbs 03/18/2017 Blood Pressure 1: 138/80 Code: 8480-6 BMI: 20.5 Code: 17311-7 Heart Rate 1: 83 bpm Height: 5' SpO2: 97% Weight: 105 lbs 01/27/2017 Blood Pressure 1: 142/68 Code: 8480-6 BMI: 20.5 Code: 41082-2 Heart Rate 1: 69 bpm Height: 5' SpO2: 97% Weight: 105 lbs 12/29/2016 Blood Pressure 1: 154/82 Code: 8480-6 BMI: 20.1 Code: 25020-0 Heart Rate 1: 76 bpm Height: 5' SpO2: 94% Temperature: 37.4 (C ) / 99.4 (F) Weight: 103 lbs 11/19/2016 Blood Pressure 1: 134/74 Code: 8480-6 BMI: 19.7 Code: 25935-5 Heart Rate 1: 64 bpm Height: 5' Weight: 101 lbs 08/13/2016 Blood Pressure 1: 118/56 Code: 8480-6 BMI: 19.5 Code: 97389-5 Heart Rate 1: 64 bpm Height: 5' SpO2: 97% Weight: 100 lbs 07/03/2016 Blood Pressure 1: 120/68 Code: 8480-6 BMI: 19.1 Code: 74483-0 Heart Rate 1: 80 bpm Height: 5' SpO2: 98% Weight: 98 lbs 05/07/2016 Blood Pressure 1: 116/58 Code: 8480-6 BMI: 19.1 Code: 76689-6 Heart Rate 1: 79 bpm Height: 5' SpO2: 98% Weight: 98 lbs 04/08/2016 Blood Pressure 1: 118/58 Code: 8480-6 BMI: 19.0 Code: 08407-7 Heart Rate 1: 78 bpm Height: 5' SpO2: 98% Weight: 97 lbs 8 oz 03/11/2016 Blood Pressure 1: 102/60 Code: 8480-6 BMI: 19.7 Code: 14110-4 Heart Rate 1: 75 bpm Height: 5' SpO2: 94% Waist Measure (cm): 71 cm Weight: 101 lbs 12/27/2015 Blood Pressure 1: 128/72 Code: 8480-6 BMI: 20.2 Code: 01337-2 Heart Rate 1: 95 bpm Height: 5' SpO2: 98% Weight: 103 lbs 8 oz 09/24/2015 Blood Pressure 1: 136/70 Code: 8480-6 BMI: 19.1 Code: 59794-7 Heart Rate 1: 72 bpm Height: 5' SpO2: 97% Weight: 98 lbs 06/26/2015 Blood Pressure 1: 144/64 Code: 8480-6 BMI: 18.9 Code: 97303-7 Heart Rate 1: 77 bpm Height: 5' SpO2: 98% Weight: 97 lbs 04/10/2015 Blood Pressure 1: 132/88 Code: 8480-6 BMI: 18.9 Code: 29909-0 Heart Rate 1: 83 bpm Height: 5' [...] Episodes daily 01/24/2019 None Location in the [facility] area 01/24/2019 None Onset and Resolution o [...] Alleviating Factors medication 09/15/2018 None hypothyroid Quality studio coordinator deisy 09/15/2018 None hypothyroid Onset and Resolution [...] Alleviating Factors medication 05/19/2018 None hypothyroid Quality studio coordinator deisy 05/19/2018 None hypertension Quality tari ekbede hypertension 01/12/2018 None hypertension Onset and Resolution [...] Encounters Encounter Performer Loca tion Codes Date () [id number] EST. P ATIENT, LEVEL IV Diagnosis: Essential (primary) hypertension[ICD10: I10] Diagnosis: Headache[ICD10: R51] Diagnosis: Atrophy of thyroid (acquired)[ICD10: E03.4] Diagnosis: Other forms of dyspnea[ICD10: R06.09] Kailee Moreira MD, [facility] CPT-4: 50640 01/24/2019 ([id number]) 76436 EST. P ATIENT, LEVEL III Diagnosis: Headache[ICD10: R51] Diagnosis: Nasal congestion[ICD10: R09.81] Marixa Moreira MD, [facility] CPT- 4: 74780 01/10/2019 ([id number]) 74735 EST. 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 P ATIENT, LEVEL IV Diagnosis: Essential (primary) hypertension[ICD10: I10] Diagnosis: Atrophy of thyroid (acquired)[ICD10: E03.4] Diagnosis: Low back pain[ICD10: M54.5] Diagnosis: Other specified noninflammatory disorders of vagina[ICD10: N89.8] Kailee Moreira MD, [facility] CPT-4: 77612 09/15/2018 ([id number]) 14062 EST. P ATIENT, LEVEL III Diagnosis: Dizziness and giddiness[ICD10: R42] Diagnosis: Allergic contact dermatitis due to plants, except food[ICD10: L23.7] Marixa Moreira MD, [facility] CPT-4: 79974 06/01/2018 ([id number]) 63946 EST. P ATIENT, LEVEL III Diagnosis: Allergic contact dermatitis due to plants, except food[ICD10: L23.7] Marixa Moreira MD, [facility] CPT-4: 92137 05/24/2018 ([id number]) 15501 EST. P ATIENT, LEVEL IV Diagnosis: Essential (primary) hypertension[ICD10: I10] Diagnosis: Atrophy of thyroid (acquired)[ICD10: E03.4] Diagnosis: Obstructive sleep apnea (adult) (pediatric)[ICD10: G47.33] Kailee Moreira MD, C CPT-4: 27046 05/19/2018 ([id number]) 23337 EST. P ATIENT, LEVEL IV Diagnosis: Essential (primary) hypertension[ICD10: I10] Diagnosis: Atrophy of thyroid (acquired)[ICD10: E03.4] Diagnosis: Low back pain[ICD10: M54.5] Kailee Moreira MD, [facility] CPT-4: 10616 01/12/2018 ([id number]) 76666 EST. P ATIENT, LEVEL III Diagnosis: Headache[ICD10: R51] Kailee Moreira MD, [facility] CPT-4: 68210 10/12/2017 ([id number]) 62963 EST. P ATIENT, LEVEL IV Diagnosis: Atrophy of thyroid (acquired)[ICD10: E03.4] Diagnosis: Essential (primary) hypertension[ICD10: I10] Diagnosis: Obstructive sleep apnea (adult) (pediatric)[ICD10: G47.33] Kailee Moreira MD, C CPT-4: 44046 08/06/2017 ([id number]) 62331 EST. 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 CPT-4: 81082 05/13/2017 ([id number]) 06024 EST. P ATIENT, LEVEL IV Diagnosis: Atrophy of thyroid (acquired)[ICD10: E03.4] Diagnosis: Essential (primary) hypertension[ICD10: I10] Diagnosis: Encounter for screening for other musculoskeletal disorder[ICD10: Z13.828] Diagnosis: Low back pain[ICD10: M54.5] Diagnosis: Transient alteration of awareness[ICD10: R40.4] Kailee Moreira MD, C CPT-4: 33044 03/18/2017 ([id number]) 57941 EST. P ATIENT, LEVEL IV Diagnosis: Atrophy of thyroid (acquired)[ICD10: E03.4] Diagnosis: Essential (primary) hypertension[ICD10: I10] Diagnosis: Low back pain[ICD10: M54.5] Kailee Moreira MD, [facility] CPT-4: 80836 01/27/2017 ([id number]) 26130 EST. P ATIENT, LEVEL III Diagnosis: Acute recurrent maxillary sinusitis[ICD10: J01.01] Marixa Moreira MD, [facility] CPT-4: 23075 12/29/2016 ([id number]) 24548 EST. P ATIENT, LEVEL IV Diagnosis: Atrophy of thyroid (acquired)[ICD10: E03.4] Diagnosis: Essential (primary) hypertension[ICD10: I10] Kailee Moreira MD, [facility] CPT-4: 26444 11/19/2016 ([id number]) 79859 EST. P ATIENT, LEVEL IV Diagnosis: Atrophy of thyroid (acquired)[ICD10: E03.4] Diagnosis: Enterocolitis due to Clostridium difficile[ICD10: A04.7] Diagnosis: Essential (primary) hypertension[ICD10: I10] Kailee Moreira MD, [facility] CPT-4: 53609 08/13/2016 ([id number]) 65520 EST. P ATIENT, LEVEL IV Diagnosis: Essential (primary) hypertension[ICD10: I10] Diagnosis: Enterocolitis due to Clostridium difficile[ICD10: A04.7] Diagnosis: Hypothyroidism, unspecified[ICD10: E03.9] Diagnosis: Low back pain[ICD10: M54.5] Kailee Moreira MD, [facility] CPT-4: 68361 07/03/2016 ([id number]) 83996 EST. P ATIENT, LEVEL IV Diagnosis: Enterocolitis due to Clostridium difficile[ICD10: A04.7] Diagnosis: Lyme disease, unspecified[ICD10: A69.20] Kailee Moreira MD, LL C CPT-4: 26868 05/07/2016 ([id number]) 54450 EST. P ATIENT, LEVEL IV Diagnosis: Generalized abdominal rigidity[ICD10: R19.37] Diagnosis: Diarrhea, unspecified[ICD10: R19.7] Diagnosis: Lyme disease, unspecified[ICD10: A69.20] Kailee Moreira MD, [facility] CPT-4: 57142 04/08/2016 ([id number]) 82149 EST. P ATIENT, LEVEL IV Diagnosis: Hypothyroidism, unspecified[ICD10: E03.9] Diagnosis: Lyme disease, unspecified[ICD10: A69.20] Diagnosis: Tachycardia, unspecified[ICD10: R00.0] Kailee Moreira MD, [facility] CPT-4: 58237 12/27/2015 ([id number]) 53521 EST. P ATIENT, LEVEL III Diagnosis: Essential (primary) hypertension[ICD10: I10] Diagnosis: Benign lipomatous neoplasm of skin and subcutaneous tissue of other sites[ICD10: D17.39] Diagnosis: Low back pain[ICD10: M54.5] Kailee Moreira MD, [facility] CPT-4: 76235 09/24/2015 ([id number]) 80579 EST. P ATIENT, LEVEL IV Diagnosis: Low back pain[ICD9: 724.2] Diagnosis: HYPOTHYROIDISM[ICD9: 244.9] Kailee Moreira MD, 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 CPT-4: 89043 04/10/2015 Plan of Care Planned Activity Notes [...] 01/24/2019 [phone] ([facility] Complex 01/24/2019 Patient Education: Patient Medication Summary Completed 01/24/2019 Patient Education: Hypertension Completed 01/24/2019 Appointment: Kailee Moreira WPtel: [facility] [facility] (15 min) Moderate 01/19/2019 Appointment: Nurse Visit 01/14/2019 Visit Plan: Headache -nasal congest ion-refill fioricet for prn use-kenalog injection today in the office -call if symptoms do not resolve or if any worse-patient verbalized understanding of plan. 01/10/2019 Appointment: Marixa Lakhani WPtel: [phone] [phone] [place] (15 min) Moderate 01/10/2019 Patient Education: [...] home. 11/25/2018 Appointment: Kailee Moreira WPtel: [phone] [facility] (15 min) Moderate 11/25/2018 Patient Education: [...] chiropractor. 09/15/2018 Appointment: [phone] 30 min appointments only in this [...] care surrogate. 09/10/2018 App[facility]ment[phone] [facility] - Annual Wellness Visit 09/10/2018 Patient Education: Patient Medication Summary Completed 09/10/2018 Appointment: Injection 06/14/2018 Visit Plan: Contact dermatitis-disc ussed with Dr Moreira -rx for dexamethasone sent to patient's pharmacy and instructed on use-will also send rx for topical betamethsone -instructed patient to call if symptoms do not resolve or if any worse Drsgeaiti-RYL-ikfpxowk fluids-monitor blood pressure- call if dizziness does not resolve or if any worse-patient and verbalized understanding 06/01/2018 Appointment: Marixa Lakhani WPtel: [phone] [phone] (15 min) Moderate 06/01/2018 Patient Education: Patient Medication Summary Completed 06/01/2018 Visit Plan: Contact dermatitis due to poison magalys/oak-kenalog injection today- pt is to use topical treatments as directed. Pt is cleanse clothing in hot water with soap, and call if symptoms do not improve or if they worsen. 05/24/2018 Appointment: Marixa Lakhani WPtel: [phone] [phone] (15 min) Moderate 05/24/2018 Patient Education: Patient [...] awakening. 05/19/2018 Appointment: Kailee Moreira WPtel: [phone] [facility] (30 min) Complex 05/19/2018 Patient Education: [...] thighs bilaterally 01/12/2018 Appointment: Kailee Moreira WPtel: [phone] [facility] (15 min) Moderate 01/12/2018 Patient Education: Patient Medication Summary Completed 01/12/2018 Appointment: Kailee Moreira WPtel: [phone] [facility] (15 min) Moderate 12/02/2017 Visit Plan: Headache - recommended patient to use PRN Fioricet for headaches - call if not improving. 10/12/2017 Appointment: Kailee Moreira WPtel: [phone] [facility] (15 min) Moderate 10/12/2017 Patient Education: [...] apnea - order humidification for cpap - [place] [facility]- find out if they need [...] at home. 08/06/2017 Appointment: Kailee Moreira WPtel: [phone] [facility] (15 min) Moderate 08/06/2017 Patient Education: Patient Medication Summary Completed 08/06/2017 Care Plan: Comp Metabolic Pending 08/06/2017 Care Plan: Tsh Pending 08/06/2017 Care Plan: Free T4 Pending 08/06/2017 Care Plan: Lipid Pending 08/06/2017 Care Plan: Cbc With Differential Pending 08/06/2017 Appointment: Kailee Moreira WPtel: [phone] [facility] (15 min) Moderate 07/21/2017 Visit Plan: Hypothyroidism [...] stop lisinopril. 05/13/2017 Appointment: Kailee Moreira WPtel: [facility] [facility]66[facility] (15 min) Moderate 05/13/2017 Patient Education: Patient Medication Summary Completed 05/13/2017 Patient Education: Hypertension Completed 05/13/2017 Appointment: Kailee Moreira WPtel: [facility] [facility] (15 min) Moderate 05/06/2017 Visit Plan: Medicare [...] WPtel: [phone] [facility] [place] [address] - Annual Wellness Visit 03/19/2017 Patient Education: [...] levels of control. p hysical therapy at [facility] - water therapy for back eeg - needs ordered at hospital. 03/18/2017 Appointment: Kailee Moreira WPtel: [facility] [address] (15 min) Moderate 03/18/2017 Patient Education: Patient [...] not improve. 01/27/2017 Appointment: Kailee Moreira WPtel: [facility] [facility] (15 min) Moderate 01/27/2017 Patient Education: Patient Medication Summary Completed 01/27/2017 Patient Education: Hypertension Completed 01/27/2017 Visit Plan: Sinusitis - Pt has acut e infection - pain in face, maxillary region, Pt informed to use decongestant, RX given to patient, sinus rinses also recommended. Call if symptoms do not show improvement. 12/29/2016 Appointment: Marixa Lakhani WPtel: [phone] [phone] (30 min) Complex 12/29/2016 Patient Education: Patient [...] control. 11/19/2016 Appointment: Kailee Moreira WPtel: [phone] [facility] (15 min) Moderate 11/19/2016 Patient Education: Patient [...] have improved. 08/13/2016 [phone] ([facility]) Mod[facility] 08/13/2016 Patient Education: Patient Medication Summary Completed 08/13/2016 Patient Education: Hypertension Completed 08/13/2016 [facility]: [id number] ([facility] min) Complex 07/31/2016 Visit Plan: [...] of control. 07/03/2016 Appointment: Kailee Moreira WPtel: [facility] (15 min) Moderate 07/03/2016 Patient Education: Patient Medication Summary Completed 07/03/2016 Patient Education: Hypertension Completed 07/03/2016 Visit Plan: Cdiff colitis - pt to h ave repeat testing - if positive will have to repeat treatment. Continue with probiotic. Lymes disease - continue with treatment per Dr. Carrillo. alex sample x 18 days given to patient. 05/07/2016 Appointment: Kailee Moreira WPtel: [facility] [facility] (15 min) Moderate 05/07/2016 Patient Education: Patient Medication Summary Completed 05/07/2016 Visit Plan: Diarrhea - suspect the diarrhea is Cdiff related - check stool and treat with flagyl, probiotic to increase to three times daily - continue to hold iv antibiotic. Lyme disease - treating with iv antibiotics - on hold while she has diarrhea. 04/08/2016 Appointment: Kailee Moreira WPtel: [facility] ([facility] min) Moderate 04/08/2016 Patient Education: Patient Medication Summary Completed 04/08/2016 Appointment: Kailee Moreira WPtel: [facility] (15 min) Moderate 04/03/2016 Visit Plan: [...] for health care surrogate. Lyme disease - seeoumar Carrillo - has antibiotic treatment plan, see [...] Completed 03/11/2016 Appointment: [phone] (15 min) Moderate 01/24/2016 Visit Plan: [...] control. 12/27/2015 App[facility]ment: [phone] ([facility] min) Moderate 12/27/2015 Patient Education: [...] not improve. 06/26/2015 Appointment: Kailee Moreira WPtel: [address] [place], [place] [id number] (15 min) Moderate 06/26/2015 Patient Education: Patient [...] spine Lymes disease-sees Dr Carrillo-lymes specialist in [place], [place] CAD-HX [id number] by Dr Hyde 04/10/2015 Appointment: (S) New [...] do not resolve or if any worse [id number]-[id number] fluids-monitor blood pressure-call if dizziness does not resolve or if any worse-patient and verbalized understanding . Hypertension - wel l controlled - [...] x 18 days given to patient. . Hypothyroidism - p t with chronic [...] appt Low blood pressure stop lisinopril. . Contact dermatitis due to poison magalys/oak-kenalog injection today- pt is to use topical treatments as directed. Pt is cleanse clothing in hot water with soap, and call if symptoms do not improve or if they worsen. . Medicare Exam - to day we [...] pain - pt to see the chiropractor. voltaren gel apply 2 grams to the [...] previous levels of control. physical therapy at [facility] - water therapy for back eeg - [...] spine Lymes disease-sees Dr Carrillo-lymes specialist in [place], [place] CAD-HX ncos-LNG-[id number] by Dr Mary Ellen linder injection to [...] apnea - order humidification for cpap - [facility]- find out if they need [...] change in blood pressure readings at home. use two old goats on back and [...] more rested in the morning when awakening. DOXYCYCLINE 100MG TW ICE DAILY X 7 DAYS . Sinusitis - Pt has acute infection - p ain in face, maxillary region, Pt informed to use decongestant, RX given to patient, sinus rinses also recommended. Call if symptoms do not show improvement.
--- OUTSIDE RECORDS SUMMARY | 2020-05-05 11:54 | XMS REPORT | CCD ---
Author Author Emily Lakhani Organization [facility] Address [address] [place] [address] Phone Care Team Providers Care School Psychologist Name Role Phone PP Unavailable CCM Unavailable Summary Purpose Interface Exchange Insurance Providers Payer name Policy type / Coverage type Covered democrat ID Effective Begin Date Effective End Date WPS Medicare Part B Medicare Part B [id number] Unknown Unknown [employer] Medicare Part B [id number] Unknown Unknown Family history Mother Diagnosis Age At [...] Retir ed 04/10/[address]: 738181995 Never smoker 04/10/[address]: 417511650 Never drinks alcohol 04/10/2015 Allergies, Adverse Reactions, Alerts Allergies, Adverse Reactions, Alerts data not found Past Medical History Illness Codes Condition Status Onset Date Resolved Date 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 ICD-10: E03.4 Active 11/18/2016 Unknown Essential (primary) hypertension ICD-9: 401.9 ICD-10: I10 Active 04/09/2015 Unknown 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, intractable, without status epilepticus ICD- 9: 345.11 ICD-10: G40.319 Active 05/13/2017 Unknown Encounter for genera l adult medical examination with abnormal findings ICD-9: V70.0 ICD-10: Z00.01 Active 03/10/2016 Unknown Encounter for screen ing for other musculoskeletal disorder ICD-9: 733.90 ICD-10: Z13.828 Active 03/18/2017 Unknown Low back pain ICD-9: 724.2 ICD-10: M54.5 Active 04/09/2015 Unknown Transient alteration of awareness ICD-9: 780.02 ICD-10: R40.4 Active 03/18/2017 Unknown Acute recurrent maxi llary sinusitis ICD-9: 461.0 ICD-10: J01.01 Active 12/29/2016 Unknown Enterocolitis due to Clostridium difficile ICD-9: 008.45 ICD-10: A04.7 Active 08/12/2016 Unknown Hypothyroidism, unsp ecified ICD-9: 244.9 ICD-10: E03.9 Active 06/25/2015 Unknown Lyme disease, unspec ified ICD-9: 088.81 ICD-10: A69.20 Active 04/09/2015 Unknown Diarrhea, unspecified ICD-9: 787.91 ICD-10: R19.7 Active 04/07/2016 Unknown Generalized abdomina l rigidity ICD-9: 789.47 [...] 345.11 ICD-10: G40.319 05/13/2017 Active Encounter for genera l adult medical examination with abnormal findings ICD-9: V70.0 ICD-10: Z00.01 03/10/2016 Active Encounter for screen ing for other musculoskeletal disorder ICD-9: 733.90 ICD-10: Z13.828 03/18/2017 Active Low back pain ICD-9: 724.2 ICD-10: M54.5 04/09/2015 Active Transient alteration of awareness ICD-9: 780.02 ICD-10: R40.4 03/18/2017 Active Acute recurrent maxi llary sinusitis ICD-9: 461.0 ICD-10: J01.01 12/29/2016 Active Enterocolitis due to Clostridium difficile ICD-9: 008.45 ICD-10: A04.7 08/12/2016 Active Hypothyroidism, unsp ecified ICD-9: 244.9 ICD-10: E03.9 06/25/2015 Active Lyme disease, unspec ified ICD-9: 088.81 ICD-10: A69.20 04/09/2015 Active Diarrhea, unspecified ICD-9: 787.91 ICD-10: R19.7 04/07/2016 Active Generalized abdomina l rigidity ICD-9: 789.47 [...] Date Stop Date Sta tus Fill Instructions Keppra 500 mg tablet RxNorm: 323414 1 Tablet(s) PO BID 05/13/2017 09/09/2017 Active Deplin (algal oil) 1 5 mg-90.314 mg capsule RxNorm: TAKE ONE CAPSULE BY MOUTH O NE TIME DAILY 05/13/2017 02/06/2018 Active Keppra 250 mg tablet RxNorm: 402782 1 Tablet(s) PO daily 04/23/2017 04/22/2017 Inactive take 1 tab qd x 1 week then increase to BID Keppra 250 mg tablet RxNorm: 022325 1 Tablet(s) PO daily 04/23/2017 05/12/2017 Inactive take 1 tab qd x 1 week then increase to BID cyclobenzaprine 5 mg tablet RxNorm: 335533 1 Tablet(s) PO TID as needed 02/03/2017 02/22/2017 In active cyclobenzaprine 5 mg tablet RxNorm: 154037 1 Tablet(s) PO TID as needed 02/03/2017 02/02/2017 In active [place] Thyroid 90 mg tablet RxNorm: 888851 1/2 Tablet(s) PO daily 11/19/2016 03/18/2017 Inactive amitriptyline 10 mg tablet RxNorm: 476621 1/2 to 1 Tablet(s) PO QPM 11/19/2016 11/13/2017 Active fluconazole 50 mg ta blet RxNorm: 404873 1 Tablet(s) PO daily 08/20/2016 09/02/2016 Inactive [place] Thyroid 90 mg tablet RxNorm: 405821 1/2 Tablet(s) PO daily 08/11/2016 11/18/2016 Inactive Flagyl 500 mg tablet RxNorm: 974784 1 Tablet(s) PO TID 07/28/2016 08/06/2016 Inactive Flagyl 500 mg tablet RxNorm: 487941 1 Tablet(s) PO TID 07/17/2016 07/27/2016 Inactive amitriptyline 10 mg tablet RxNorm: 723224 1/2 to 1 Tablet(s) PO QPM 07/03/2016 10/30/2016 Inactive metronidazole 500 mg tablet RxNorm: 056605 1 Tablet(s) PO QID 07/03/2016 07/12/2016 Inactive amitriptyline 25 mg tablet RxNorm: 478127 1/2 -1 Tablet(s) PO Q HS as needed insomnia 06/26/2016 07/02/2016 Inactive vancomycin 125 mg ca psule RxNorm: 645311 1 Capsule(s) PO QID 06/20/2016 06/29/2016 Inactive [place] Thyroid 30 mg tablet RxNorm: 730160 1.5 Tablet(s) PO daily 06/20/2016 06/19/2016 Inactive [place] Thyroid 30 mg tablet RxNorm: 574529 1.5 Tablet(s) PO daily 06/20/2016 08/10/2016 Inactive fluconazole 50 mg ta blet RxNorm: 277881 1 Tablet(s) PO daily 06/16/2016 08/19/2016 Inactive amitriptyline 25 mg tablet RxNorm: 497370 1/2 -1 Tablet(s) PO Q HS as needed insomnia 06/12/2016 06/11/2016 Inactive amitriptyline 25 mg tablet RxNorm: 078804 1/2 -1 Tablet(s) PO Q HS as needed insomnia 06/12/2016 06/25/2016 Inactive vancomycin 125 mg ca psule RxNorm: 296878 1 Capsule(s) PO QID 06/12/2016 06/19/2016 Inactive fluconazole 50 mg ta blet RxNorm: 752459 1 Tablet(s) PO daily 06/12/2016 06/15/2016 Inactive Diflucan 150 mg tablet RxNorm: 748408 1 Tablet(s) PO daily 06/05/2016 06/09/2016 Inactive Deplin (algal oil) 1 5 mg-90.314 mg capsule RxNorm: 1 Capsule(s) PO daily 06/05/2016 06/04/2016 In active Diflucan 150 mg tablet RxNorm: 537825 1 Tablet(s) PO daily 06/05/2016 06/04/2016 Inactive Deplin (algal oil) 1 5 mg-90.314 mg capsule RxNorm: 1 Capsule(s) PO daily 06/05/2016 05/12/2017 In active nystatin 500,000 uni t tablet RxNorm: 430030 4 Tablet(s) PO daily 05/21/2016 09/17/2016 Inactive Vitamin D3 5,000 uni t tablet RxNorm: 588341 Tablet(s) PO daily 05/07/2016 No Stop Date Active progesterone microni zed 100 mg capsule RxNorm: 093516 3 Capsule(s) PO daily on days 1- 25 of each month 05/07/2016 No Stop Date Active nystatin 500,000 uni t tablet RxNorm: 784328 1 Tablet(s) PO Q4H 05/07/2016 05/20/2016 Inactive fluconazole 100 mg t ablet RxNorm: 726001 1 Tablet(s) PO daily 05/07/2016 06/11/2016 Inactive metronidazole 500 mg tablet RxNorm: 612095 1 Tablet(s) PO TID 04/30/2016 05/09/2016 Inactive metronidazole 500 mg tablet RxNorm: 382799 1 Tablet(s) PO TID 04/30/2016 04/29/2016 Inactive vancomycin 125 mg ca psule RxNorm: 620319 1 Capsule(s) PO QID 04/29/2016 05/08/2016 Inactive vancomycin 125 mg ca psule RxNorm: 965485 1 Capsule(s) PO QID 04/29/2016 04/28/2016 Inactive Flagyl 500 mg tablet RxNorm: 428445 1 Tablet(s) PO TID 04/09/2016 04/08/2016 Inactive Flagyl 500 mg tablet RxNorm: 350214 1 Tablet(s) PO TID 04/09/2016 04/22/2016 Inactive carvedilol 3.125 mg tablet RxNorm: 959748 1 Tablet(s) PO BID 04/08/2016 No Stop Date Active [place] Thyroid 60 mg tablet RxNorm: 741431 Tablet(s) PO 1 Tablet (s) daily 01/31/2016 06/19/2016 In active Pt request 90 day supply 11/23/2015 11:1 1:54 AM [place] Thyroid 30 mg tablet RxNorm: 166415 1 Tablet(s) daily 01/28/2016 01/30/2016 Inactive Pt request 90 day supply 11/23/2015 11:1 1:54 AM [place] Thyroid 30 mg tablet RxNorm: 407545 1 Tablet(s) daily 01/21/2016 01/27/2016 Inactive Pt request 90 day supply 11/23/2015 11:1 1:54 AM [place] Thyroid 30 mg tablet RxNorm: 747455 Tablet(s) TAKE ONE AN D ONE-HALF (45 MG) TABLET BY MOUTH EVERY DAY 01/02/2016 01/20/2016 Inactive Pt request 90 day supply 11/23/2015 11:11:54 AM Xylocaine 20 mg/mL ( 2 %) injection solution RxNorm: 6409471 2.5 Milliliter(s) In j BID with cefepime 12/27/2015 01/25/2016 Inactive cefepime 1 gram solu tion for injection RxNorm: 8060630 Inj 12/1012/27/2015 Inactive [place] Thyroid 30 mg tablet RxNorm: 193703 TAKE ONE TABLET BY MO UTH EVERY DAY 11/23/2015 01/01/2016 In active Pt request 90 day supply 11/23/2015 11:1 1:54 AM Voltaren 1 % topical gel RxNorm: 315948 2 Gram(s) TOP QID 09/24/2015 12/26/2015 Inactive cyclobenzaprine 10 m g tablet RxNorm: 685619 1 Tablet(s) PO Q6 as needed 08/27/2015 05/06/2016 In active [place] Thyroid 30 mg tablet RxNorm: 943123 1 Tablet(s) PO daily 06/21/2015 06/20/2015 Inactive [place] Thyroid 30 mg tablet RxNorm: 440504 1 Tablet(s) PO daily 06/21/2015 11/22/2015 Inactive Synthroid 25 mcg tablet RxNorm: 712081 1 Tablet(s) PO daily 06/07/2015 06/06/2015 Inactive KASEY-1 Synthroid 25 mcg tablet RxNorm: 381188 1 Tablet(s) PO daily 06/07/2015 06/20/2015 Inactive KASEY-1 ofloxacin 0.3 % ear drops RxNorm: 360259 1-2 Drop(s) OTIC OU Q 4H as needed No Start Date Active Aspirin Low Dose 81 mg tablet,delayed release RxNorm: 494560 1 Tablet(s) PO daily No Start Date Active tyrosine (bulk) powder RxNorm: 1 Miscellaneous dash every am No Start Date Active arginine (L-arginine ) oral RxNorm: 1091 oral No Sta rt Date Active glutathione RxNorm: 4890 miscellaneous No Start Date Active Plaquenil 200 mg tablet RxNorm: 255409 1 Tablet(s) PO BID No Start Date 05/19/2016 Inactive fluconazole 100 mg t ablet RxNorm: 837162 1/2 Tablet(s) PO daily No Start Date 05/06/2016 Inactive fluconazole 150 mg t ablet RxNorm: 328371 1 Tablet(s) PO QW x4 No Start Date 12/26/2015 Inactive progesterone microni zed 100 mg capsule RxNorm: 998433 2 Capsule(s) PO daily No Start Date 05/06/2016 Inactive nystatin 500,000 uni t tablet RxNorm: 698460 1 Tablet(s) PO QID No Start Date 05/06/2016 Inactive cyclobenzaprine 10 m g tablet RxNorm: 679568 1 Tablet(s) PO Q6 as needed No Start Date 08/26/2015 Inactive vitamin K oral RxNorm: 8308 oral No Start Date 12/26/2015 Inactive carvedilol 3.125 mg tablet RxNorm: 084136 1 Tablet(s) PO daily No Start Date 04/07/2016 Inactive lisinopril 5 mg tablet RxNorm: 134957 1 Tablet(s) PO daily No Start Date 05/12/2017 Inactive azithromycin 250 mg tablet RxNorm: 351695 1 Tablet(s) PO daily will incrase to 2 per day No Start Date 12/26/2015 Inactive Probiotic 4X oral RxNorm: 4662593 oral No Start Date 01/07/2016 Inactive Vitamin D3 1,000 uni t tablet RxNorm: 298951 Tablet(s) PO daily No Start Date 05/06/2016 Inactive progesterone microni zed 100 mg capsule RxNorm: 521344 3 Capsule(s) PO daily rx from 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, intractable, without status epilepticus ICD-10: G40.319 ICD-9: 345.11 05/13/2017 Atrophy of thyroid (acquired) ICD-10 : E03.4 ICD-9: 244.8 05/13/2017 Essential (primary) hypertension ICD -10: I10 ICD-9: 401.9 05/13/2017 Encounter for general adult medical exam ination with abnormal findings ICD-10: Z00.01 ICD-9: V70.0 03/19/2017 Low back pain ICD-10: M54.5 ICD-9: 724.2 03/18/2017 Transient alteration of awareness IC D-10: R40.4 [...] Reason For Visit Effective Dates Notes hypertension 05/13/2017 Annual Medicare Wellness Exam 03/19/2017 hypertension 03/18/2017 fatigue 01/27/2017 Hospital Follow Up 12/29/2016 hypertension 11/19/2016 hypertension 08/13/2016 hypertension 07/03/2016 hypertension 05/07/2016 hypertension 04/08/2016 Annual Medicare Wellness Exam 03/11/2016 hypertension 12/27/2015 back pain 09/24/2015 back pain 06/26/2015 back pain 04/10/2015 has MRI in documents. She is doing stretches/yoga Results Observation Observation Code Item Item Code Result Date Cbc With Differential Ord2 WBC 4.46 K/ul 11/20/2016 Cbc With Differential Ord2 RBC 4.39 M/ul 11/20/2016 Cbc With Differential Ord2 HGB 13.4 g/dl 11/20/2016 Cbc With Differential Ord2 Neut% 47.1 % 11/20/2016 Cbc With Differential Ord2 HCT 40.5 % 11/20/2016 Cbc With Differential Ord2 MCV 92.3 fl 11/20/2016 Cbc With Differential Ord2 Lymph% 36.3 % 11/20/2016 Cbc With Differential Ord2 MCH 30.5 pg 11/20/2016 Cbc With Differential Ord2 [place]% 10.8 % 11/20/2016 Cbc With Differential Ord2 [...] 1.62 K/ul 11/20/2016 Cbc With Differential Ord2 [place] ABS# 0.5 K/ul 11/20/2016 Cbc With Differential Ord2 Eos ABS# 0.2 K/ul 11/20/2016 Cbc With Differential Ord2 Baso ABS# 0.0 K/ul 11/20/2016 Free T4 Ztf118 FREE T4 0.80 ng/dL 11/20/2016 Tsh Ord6 hTSH II 1.35 uIU/mL 11/20/2016 Comp Metabolic Ffm999 NA 139 mEq/L 11/20/2016 Comp Metabolic Wsz943 K 3.9 mEq/L 11/20/2016 Comp Metabolic Mng408 CL 103 mEq/L 11/20/2016 Comp Metabolic Irs213 CO2 30.0 mEq/L 11/20/2016 Comp Metabolic Vwk392 AN ION GAP 10 11/20/2016 Comp Metabolic Qna916 GL UCOSE 85 mg/dL 11/20/2016 Comp Metabolic Eqm049 Cr eat 0.7 mg/dL 11/20/2016 Comp Metabolic Ony328 eG FR 93 ml/min/1.73m2 11/20 Comp Metabolic Ici952 BUN 12 mg/dL 11/20/2016 Comp Metabolic Cxd932 B/ C Ratio 18.2 Ratio 11/20/2016 Comp Metabolic Apz652 CA LCIUM 9.1 mg/dL 11/20/2016 Comp Metabolic Eqm848 AL K PHOS 34 U/L 11/20/2016 Comp Metabolic Oel887 T(SGOT) 18 U/L 11/20/2016 Comp Metabolic Gqj680 AL T(SGPT) 14 U/L 11/20/2016 Comp Metabolic Gvu068 BI LI T 0.5 mg/dL 11/20/2016 Comp Metabolic Iju418 AL BUMIN 4.2 g/dL 11/20/2016 Comp Metabolic Qpi658 TP RO 6.3 g/dL 11/20/2016 Comp Metabolic Kae065 GL OB 2.1 g/dL 11/20/2016 Comp Metabolic Wxs228 A/ G Ratio 2.0 Ratio 11/20/2016 Comp Metabolic Zci295 Os mo 277 mOsmo 11/20/2016 Lipid Ord30 CHOL 189 mg/dL 11/20/2016 Lipid Ord30 HDL 81.0 mg/dl 11/20/2016 Lipid Ord30 TRIG 77 mg/dL 11/20/2016 Lipid Ord30 LDL 93 mg/dL 11/20/2016 Lipid Ord30 C/HDL 2.3 Ratio 11/20/2016 Testosterone Free Direct 988904 FREE TESTOSTERONE 0.7 pg/mL 10/06/2016 Estradiol 444104 ESTRADI OL 5.9 pg/mL 10/03/2016 Cortisol 130337 CORTISOL 23 ug/dL 10/03/2016 Progesterone Yad571 Prog 17.38 ng/mL 10/01/2016 Free T4 Qri570 FREE T4 0.66 ng/dL 08/13/2016 Tsh Ord6 hTSH II 0.99 uIU/mL 08/13/2016 Testosterone Free Direct 316142 FREE TESTOSTERONE <0.2 pg/mL 07/05/2016 Estradiol 472872 ESTRADI OL <5.0 pg/mL 07/03/2016 Progesterone Qed581 Prog 23.37 ng/mL 07/02/2016 Tsh Ord6 hTSH II 0.24 uIU/mL 06/17/2016 Free T4 Zhj503 FREE T4 0.86 ng/dL 06/17/2016 Estradiol 942100 ESTRADI OL <5.0 pg/mL 05/21/2016 Comp Metabolic Qvd448 NA 140 mEq/L 05/20/2016 Comp Metabolic Onx787 K 4.1 mEq/L 05/20/2016 Comp Metabolic Lom387 CL 106 mEq/L 05/20/2016 Comp Metabolic Mam514 CO2 26.0 mEq/L 05/20/2016 Comp Metabolic Wyj746 AN ION GAP 12 05/20/2016 Comp Metabolic Pwo549 GL UCOSE 81 mg/dL 05/20/2016 Comp Metabolic Myv017 Cr eat 0.5 mg/dL 05/20/2016 Comp Metabolic Clg583 eG FR 119 ml/min/1.73m2 05/09 Comp Metabolic Lyv385 BUN 15 mg/dL 05/20/2016 Comp Metabolic Gbm082 B/ C Ratio 28.3 Ratio 05/20/2016 Comp Metabolic Utd065 CA LCIUM 8.9 mg/dL 05/20/2016 Comp Metabolic Aad159 AL K PHOS 36 U/L 05/20/2016 Comp Metabolic Gxs404 T(SGOT) 25 U/L 05/20/2016 Comp Metabolic Lgs362 AL T(SGPT) 23 U/L 05/20/2016 Comp Metabolic Lxs199 BI LI T 0.4 mg/dL 05/20/2016 Comp Metabolic Dll360 AL BUMIN 3.7 g/dL 05/20/2016 Comp Metabolic Gbc186 TP RO 5.9 g/dL 05/20/2016 Comp Metabolic Fin617 GL OB 2.2 g/dL 05/20/2016 Comp Metabolic Hui219 A/ G Ratio 1.7 Ratio 05/20/2016 Comp Metabolic Ecg422 Os mo 279 mOsmo 05/20/2016 Progesterone Efc183 Prog 8.44 ng/mL 05/20/2016 Cbc With Differential Ord2 WBC 4.63 K/ul 05/20/2016 Cbc With Differential Ord2 RBC 4.30 M/ul 05/20/2016 Cbc With Differential Ord2 HGB 13.0 g/dl 05/20/2016 Cbc With Differential Ord2 Neut% 64.7 % 05/20/2016 Cbc With Differential Ord2 HCT 38.6 % 05/20/2016 Cbc With Differential Ord2 MCV 89.8 fl 05/20/2016 Cbc With Differential Ord2 Lymph% 18.4 % 05/20/2016 Cbc With Differential Ord2 MCH 30.2 pg 05/20/2016 Cbc With Differential Ord2 [place]% 13.0 % 05/20/2016 Cbc With Differential Ord2 [...] 0.85 K/ul 05/20/2016 Cbc With Differential Ord2 [place] ABS# 0.6 K/ul 05/20/2016 Cbc With Differential [...] collection if refrigerated) 05/20/2016 Testosterone Free Direct [id number] FREE TESTOSTERONE 0.6 pg/mL 05/19/2016 Estradiol 770222 ESTRADI OL <5.0 pg/mL 05/16/2016 Comp Metabolic Jtt517 NA 140 mEq/L 05/15/2016 Comp Metabolic Lud148 K 3.8 mEq/L 05/15/2016 Comp Metabolic Rwi972 CL 106 mEq/L 05/15/2016 Comp Metabolic Kma131 CO2 26.0 mEq/L 05/15/2016 Comp Metabolic Bxx037 AN ION GAP 12 05/15/2016 Comp Metabolic Whf098 GL UCOSE 77 mg/dL 05/15/2016 Comp Metabolic Zxn127 Cr eat 0.5 mg/dL 05/15/2016 Comp Metabolic Yev881 eG FR 144 ml/min/1.73m2 05/2016 Comp Metabolic Mrr919 BUN 18 mg/dL 05/15/2016 Comp Metabolic Rho924 B/ C Ratio 40.0 Ratio 05/15/2016 Comp Metabolic Bzv395 CA LCIUM 8.8 mg/dL 05/15/2016 Comp Metabolic Tdg663 AL K PHOS 28 U/L 05/15/2016 Comp Metabolic Cwq863 T(SGOT) 19 U/L 05/15/2016 Comp Metabolic Nrg337 AL T(SGPT) 19 U/L 05/15/2016 Comp Metabolic Aoo553 BI LI T 0.5 mg/dL 05/15/2016 Comp Metabolic Tef717 AL BUMIN 3.6 g/dL 05/15/2016 Comp Metabolic Vqn066 TP RO 5.6 g/dL 05/15/2016 Comp Metabolic Ptw639 GL OB 2.0 g/dL 05/15/2016 Comp Metabolic Kcw275 A/ G Ratio 1.8 Ratio 05/15/2016 Comp Metabolic Byv454 Os mo 280 mOsmo 05/15/2016 Progesterone Key604 Prog 9.08 ng/mL 05/15/2016 Cbc With Differential Ord2 WBC 4.46 K/ul 05/15/2016 Cbc With Differential Ord2 RBC 4.18 M/ul 05/15/2016 Cbc With Differential Ord2 HGB 12.5 g/dl 05/15/2016 Cbc With Differential Ord2 Neut% 47.9 % 05/15/2016 Cbc With Differential Ord2 HCT 37.8 % 05/15/2016 Cbc With Differential Ord2 MCV 90.4 fl 05/15/2016 Cbc With Differential Ord2 Lymph% 31.8 % 05/15/2016 Cbc With Differential Ord2 MCH 29.9 pg 05/15/2016 Cbc With Differential Ord2 [place]% 14.1 % 05/15/2016 Cbc With Differential Ord2 [...] 1.42 K/ul 05/15/2016 Cbc With Differential Ord2 [place] ABS# 0.6 K/ul 05/15/2016 Cbc With Differential [...] Ord28 U-Com None 05/15/2016 Testosterone Free Direct 647459 FREE TESTOSTERONE 0.2 pg/mL 05/09/2016 Estradiol 554808 ESTRADI OL <5.0 pg/mL 05/07/2016 Comp Metabolic Tim602 NA 141 mEq/L 05/06/2016 Comp Metabolic Asu391 K 3.6 mEq/L 05/06/2016 Comp Metabolic Ube444 CL 107 mEq/L 05/06/2016 Comp Metabolic Anj054 CO2 28.0 mEq/L 05/06/2016 Comp Metabolic Src678 AN ION GAP 10 05/06/2016 Comp Metabolic Pdn263 GL UCOSE 138 mg/dL 05/06/2016 Comp Metabolic Xrf773 Cr eat 0.5 mg/dL 05/06/2016 Comp Metabolic Lzi785 eG FR 119 ml/min/1.73m2 04/10 Comp Metabolic Kfd720 BUN 16 mg/dL 05/06/2016 Comp Metabolic Rui624 B/ C Ratio 30.2 Ratio 05/06/2016 Comp Metabolic Wde088 CA LCIUM 8.9 mg/dL 05/06/2016 Comp Metabolic Hug061 AL K PHOS 29 U/L 05/06/2016 Comp Metabolic Mey031 T(SGOT) 20 U/L 05/06/2016 Comp Metabolic Qbx318 AL T(SGPT) 21 U/L 05/06/2016 Comp Metabolic Qko810 BI LI T 0.4 mg/dL 05/06/2016 Comp Metabolic Oll391 AL BUMIN 3.6 g/dL 05/06/2016 Comp Metabolic Ped827 TP RO 5.5 g/dL 05/06/2016 Comp Metabolic Xyd830 GL OB 1.9 g/dL 05/06/2016 Comp Metabolic Ixt928 A/ G Ratio 1.9 Ratio 05/06/2016 Comp Metabolic Ymu582 Os mo 285 mOsmo 05/06/2016 Urinalysis Ord28 [...] hours from collection if refrigerated) 05/06/2016 Progesterone Ovr643 Prog 0.98 ng/mL 05/06/2016 Cbc With Differential Ord2 WBC 3.88 K/ul 05/06/2016 Cbc With Differential Ord2 RBC 4.14 M/ul 05/06/2016 Cbc With Differential Ord2 HGB 12.1 g/dl 05/06/2016 Cbc With Differential Ord2 Neut% 55.3 % 05/06/2016 Cbc With Differential Ord2 HCT 37.3 % 05/06/2016 Cbc With Differential Ord2 MCV 90.1 fl 05/06/2016 Cbc With Differential Ord2 Lymph% 29.9 % 05/06/2016 Cbc With Differential Ord2 MCH 29.2 pg 05/06/2016 Cbc With Differential Ord2 [place]% 10.1 % 05/06/2016 Cbc With Differential Ord2 [...] 1.16 K/ul 05/06/2016 Cbc With Differential Ord2 [place] ABS# 0.4 K/ul 05/06/2016 Cbc With Differential Ord2 Eos ABS# 0.2 K/ul 05/06/2016 Cbc With Differential Ord2 Baso ABS# 0.0 K/ul 05/06/2016 Cbc With Differential Ord2 WBC 3.97 K/ul 04/29/2016 Cbc With Differential Ord2 RBC 4.33 M/ul 04/29/2016 Cbc With Differential Ord2 HGB 12.8 g/dl 04/29/2016 Cbc With Differential Ord2 Neut% 46.3 % 04/29/2016 Cbc With Differential Ord2 HCT 38.5 % 04/29/2016 Cbc With Differential Ord2 MCV 88.9 fl 04/29/2016 Cbc With Differential Ord2 Lymph% 35.8 % 04/29/2016 Cbc With Differential Ord2 MCH 29.6 pg 04/29/2016 Cbc With Differential Ord2 [place]% 13.1 % 04/29/2016 Cbc With Differential Ord2 [...] 1.42 K/ul 04/29/2016 Cbc With Differential Ord2 [place] ABS# 0.5 K/ul 04/29/2016 Cbc With Differential Ord2 Eos ABS# 0.2 K/ul 04/29/2016 Cbc With Differential Ord2 Baso ABS# 0.0 K/ul 04/29/2016 Comp Metabolic Pef451 NA 141 mEq/L 04/29/2016 Comp Metabolic Syh492 K 4.0 mEq/L 04/29/2016 Comp Metabolic Cuw181 CL 108 mEq/L 04/29/2016 Comp Metabolic Jyl342 CO2 27.0 mEq/L 04/29/2016 Comp Metabolic Niv103 AN ION GAP 10 04/29/2016 Comp Metabolic Fut798 GL UCOSE 69 mg/dL 04/29/2016 Comp Metabolic Cff003 Cr eat 0.5 mg/dL 04/29/2016 Comp Metabolic Pac558 eG FR 122 ml/min/1.73m2 04/10 Comp Metabolic Dkm897 BUN 19 mg/dL 04/29/2016 Comp Metabolic Ucy668 B/ C Ratio 36.5 Ratio 04/29/2016 Comp Metabolic Guv911 CA LCIUM 9.1 mg/dL 04/29/2016 Comp Metabolic Fuy287 AL K PHOS 31 U/L 04/29/2016 Comp Metabolic Dvq635 T(SGOT) 20 U/L 04/29/2016 Comp Metabolic Vlj296 AL T(SGPT) 22 U/L 04/29/2016 Comp Metabolic Saz422 BI LI T 0.6 mg/dL 04/29/2016 Comp Metabolic Hfa901 AL BUMIN 3.8 g/dL 04/29/2016 Comp Metabolic Fku577 TP RO 5.9 g/dL 04/29/2016 Comp Metabolic Yrh845 GL OB 2.1 g/dL 04/29/2016 Comp Metabolic Tjn019 A/ G Ratio 1.8 Ratio 04/29/2016 Comp Metabolic Mzb196 Os mo 282 mOsmo 04/29/2016 Progesterone Xgx736 Prog 5.99 ng/mL 04/29/2016 Urinalysis Ord28 U-Color [...] from collection if refrigerated) 04/25/2016 Comp Metabolic Nno838 NA 138 mEq/L 04/25/2016 Comp Metabolic Gki239 K 3.6 mEq/L 04/25/2016 Comp Metabolic Zau199 CL 105 mEq/L 04/25/2016 Comp Metabolic Tld783 CO2 27.0 mEq/L 04/25/2016 Comp Metabolic Lvi055 AN ION GAP 10 04/25/2016 Comp Metabolic Avo687 GL UCOSE 190 mg/dL 04/25/2016 Comp Metabolic Bbl703 Cr eat 0.5 mg/dL 04/25/2016 Comp Metabolic Utc875 eG FR 128 ml/min/1.73m2 04/09 Comp Metabolic Gjf404 BUN 17 mg/dL 04/25/2016 Comp Metabolic Kja465 B/ C Ratio 34.0 Ratio 04/25/2016 Comp Metabolic Nid528 CA LCIUM 8.7 mg/dL 04/25/2016 Comp Metabolic Wqm998 AL K PHOS 32 U/L 04/25/2016 Comp Metabolic Fgu003 T(SGOT) 23 U/L 04/25/2016 Comp Metabolic Ylp464 AL T(SGPT) 22 U/L 04/25/2016 Comp Metabolic Rxq371 BI LI T 0.5 mg/dL 04/25/2016 Comp Metabolic Mod638 AL BUMIN 3.6 g/dL 04/25/2016 Comp Metabolic Wjm385 TP RO 5.5 g/dL 04/25/2016 Comp Metabolic Pzy081 GL OB 1.9 g/dL 04/25/2016 Comp Metabolic Pcx807 A/ G Ratio 1.9 Ratio 04/25/2016 Comp Metabolic Mow028 Os mo 282 mOsmo 04/25/2016 Cbc With Differential Ord2 WBC 3.24 K/ul 04/25/2016 Cbc With Differential Ord2 RBC 4.06 M/ul 04/25/2016 Cbc With Differential Ord2 HGB 12.0 g/dl 04/25/2016 Cbc With Differential Ord2 Neut% 52.4 % 04/25/2016 Cbc With Differential Ord2 HCT 36.0 % 04/25/2016 Cbc With Differential Ord2 MCV 88.7 fl 04/25/2016 Cbc With Differential Ord2 Lymph% 31.2 % 04/25/2016 Cbc With Differential Ord2 MCH 29.6 pg 04/25/2016 Cbc With Differential Ord2 [place]% 13.0 % 04/25/2016 Cbc With Differential Ord2 [...] 1.01 K/ul 04/25/2016 Cbc With Differential Ord2 [place] ABS# 0.4 K/ul 04/25/2016 Cbc With Differential Ord2 Eos ABS# 0.1 K/ul 04/25/2016 Cbc With Differential Ord2 Baso ABS# 0.0 K/ul 04/25/2016 Cbc With Differential Ord2 WBC 5.03 K/ul 04/04/2016 Cbc With Differential Ord2 RBC 4.45 M/ul 04/04/2016 Cbc With Differential Ord2 HGB 13.0 g/dl 04/04/2016 Cbc With Differential Ord2 Neut% 54.5 % 04/04/2016 Cbc With Differential Ord2 HCT 39.5 % 04/04/2016 Cbc With Differential Ord2 MCV 88.8 fl 04/04/2016 Cbc With Differential Ord2 Lymph% 26.2 % 04/04/2016 Cbc With Differential Ord2 MCH 29.2 pg 04/04/2016 Cbc With Differential Ord2 [place]% 16.1 % 04/04/2016 Cbc With Differential Ord2 [...] 1.32 K/ul 04/04/2016 Cbc With Differential Ord2 [place] ABS# 0.8 K/ul 04/04/2016 Cbc With Differential Ord2 Eos ABS# 0.2 K/ul 04/04/2016 Cbc With Differential Ord2 Baso ABS# 0.0 K/ul 04/04/2016 Comp Metabolic [id number] NA 140 mEq/L 04/04/2016 Comp Metabolic [id number] K 4.1 mEq/L 04/04/2016 Comp Metabolic [id number] CL 106 mEq/L 04/04/2016 Comp Metabolic [id number] CO2 27.0 mEq/L 04/04/2016 Comp Metabolic Snq753 AN ION GAP 11 04/04/2016 Comp Metabolic Gnl110 GL UCOSE 71 mg/dL 04/04/2016 Comp Metabolic Wuv409 Cr eat 0.5 mg/dL 04/04/2016 Comp Metabolic Vnq027 eG FR 131 ml/min/1.73m2 03/10 Comp Metabolic Fen414 BUN 14 mg/dL 04/04/2016 Comp Metabolic Xhz683 B/ C Ratio 28.6 Ratio 04/04/2016 Comp Metabolic Rom258 CA LCIUM 9.1 mg/dL 04/04/2016 Comp Metabolic Wry672 AL K PHOS 42 U/L 04/04/2016 Comp Metabolic Pqb228 T(SGOT) 18 U/L 04/04/2016 Comp Metabolic Nlz275 AL T(SGPT) 17 U/L 04/04/2016 Comp Metabolic Gpm338 BI LI T 0.4 mg/dL 04/04/2016 Comp Metabolic Yxw282 AL BUMIN 3.8 g/dL 04/04/2016 Comp Metabolic Yuw542 TP RO 6.0 g/dL 04/04/2016 Comp Metabolic Pad492 GL OB 2.2 g/dL 04/04/2016 Comp Metabolic Tak318 A/ G Ratio 1.7 Ratio 04/04/2016 Comp Metabolic Tkr226 Os mo 278 mOsmo 04/04/2016 Urinalysis Ord28 [...] 11.9 g/dl 03/28/2016 Cbc With Differential Ord2 Neut% 51.0 % 03/28/2016 Cbc With Differential Ord2 HCT 35.8 % 03/28/2016 Cbc With Differential Ord2 MCV 89.1 fl 03/28/2016 Cbc With Differential Ord2 Lymph% 33.2 % 03/28/2016 Cbc With Differential Ord2 [place]% 11.7 % 03/28/2016 Cbc With Differential Ord2 MCH 29.6 pg 03/28/2016 Cbc With Differential Ord2 Eos% 3.8 % 03/28/2016 Cbc With Differential Ord2 MCHC 33.2 pg 03/28/2016 Cbc With Differential Ord2 Baso% 0.3 % 03/28/2016 Cbc With Differential Ord2 PLT 207 K/ul 03/28/2016 Cbc With Differential Ord2 RDW 14.6 % 03/28/2016 Cbc With Differential Ord2 Neut ABS# 1.75 K/ul 03/28/2016 Cbc With Differential Ord2 Lymph ABS# 1.14 K/ul 03/28/2016 Cbc With Differential Ord2 [place] ABS# 0.4 K/ul 03/28/2016 Cbc With Differential Ord2 Eos ABS# 0.1 K/ul 03/28/2016 Cbc With Differential Ord2 Baso ABS# 0.0 K/ul 03/28/2016 Cbc With Differential Ord2 New Analyzer Notice Please note new ref ranges s tarting 11-21-2015 due to implemntation of new five part differential hematolgy analyzer. 03/28/2016 Comp Metabolic Fgu727 NA 137 mEq/L 03/28/2016 Comp Metabolic Jpa591 K 3.5 mEq/L 03/28/2016 Comp Metabolic Lut866 CL 105 mEq/L 03/28/2016 Comp Metabolic Asv768 CO2 27.0 mEq/L 03/28/2016 Comp Metabolic Scw693 AN ION GAP 9 03/28/2016 Comp Metabolic Uqp542 GL UCOSE 174 mg/dL 03/28/2016 Comp Metabolic Gnf649 Cr eat 0.5 mg/dL 03/28/2016 Comp Metabolic Lxj384 eG FR 131 ml/min/1.73m2 03/10 Comp Metabolic Elk771 BUN 13 mg/dL 03/28/2016 Comp Metabolic Kzp721 B/ C Ratio 26.5 Ratio 03/28/2016 Comp Metabolic Csf097 CA LCIUM 8.7 mg/dL 03/28/2016 Comp Metabolic Nxw828 AL K PHOS 31 U/L 03/28/2016 Comp Metabolic Yyb237 T(SGOT) 20 U/L 03/28/2016 Comp Metabolic Gwf494 AL T(SGPT) 19 U/L 03/28/2016 Comp Metabolic Evd535 BI LI T 0.4 mg/dL 03/28/2016 Comp Metabolic Lsa030 AL BUMIN 3.5 g/dL 03/28/2016 Comp Metabolic Aso188 TP RO 5.3 g/dL 03/28/2016 Comp Metabolic Puv071 GL OB 1.8 g/dL 03/28/2016 Comp Metabolic Hza211 A/ G Ratio 2.0 Ratio 03/28/2016 Comp Metabolic Gps255 Os mo 278 mOsmo 03/28/2016 Urinalysis Ord28 [...] collection if refrigerated) 03/28/2016 Testosterone Free Direct [id number] FREE TESTOSTERONE <0.2 pg/mL 03/13/2016 Estradiol 512439 ESTRADI OL <5.0 pg/mL 03/12/2016 Progesterone Siw028 Prog 0.56 ng/mL 03/10/2016 Homocyst(E)Ine Plasma 391114 HOMOCYSTEINE, TOTAL 10.9 umol/L 01/18/2016 Mthfr 914535 MTHFR C677T: HETEROZYGOUS MUTATION DETECTED 02/2016 Mthfr 105857 MTHFR A1298 C: HETEROZYGOUS MUTATION DETECTED 01/11/2016 Mthfr 001613 INTERPRETAT ION: 01/11/2016 Iodine Serum 457231 IOD INE, SERUM 131.0 ug/L 01/10/2016 Lipid Ord30 CHOL 204 mg/dL 01/07/2016 Lipid Ord30 HDL 86.0 mg/dl 01/07/2016 Lipid Ord30 TRIG 104 mg/dL 01/07/2016 Lipid Ord30 LDL 97 mg/dL 01/07/2016 Lipid Ord30 C/HDL 2.4 Ratio 01/07/2016 Comp Metabolic Igi751 NA 139 mEq/L 01/07/2016 Comp Metabolic Scc193 K 4.0 mEq/L 01/07/2016 Comp Metabolic Iji568 CL 104 mEq/L 01/07/2016 Comp Metabolic Fqy732 CO2 26.0 mEq/L 01/07/2016 Comp Metabolic Sob265 AN ION GAP 13 01/07/2016 Comp Metabolic Ovc060 GL UCOSE 86 mg/dL 01/07/2016 Comp Metabolic Wfg096 Cr eat 0.6 mg/dL 01/07/2016 Comp Metabolic Esm748 eG FR 100 ml/min/1.73m2 12/11 Comp Metabolic Nqt695 BUN 18 mg/dL 01/07/2016 Comp Metabolic Anv319 B/ C Ratio 29.0 Ratio 01/07/2016 Comp Metabolic Icx464 CA LCIUM 9.4 mg/dL 01/07/2016 Comp Metabolic Svz329 AL K PHOS 40 U/L 01/07/2016 Comp Metabolic Wwy790 T(SGOT) 20 U/L 01/07/2016 Comp Metabolic Wcc648 AL T(SGPT) 24 U/L 01/07/2016 Comp Metabolic Fbw318 BI LI T 0.6 mg/dL 01/07/2016 Comp Metabolic Jeg919 AL BUMIN 4.1 g/dL 01/07/2016 Comp Metabolic Gex062 TP RO 6.4 g/dL 01/07/2016 Comp Metabolic Cdf124 GL OB 2.3 g/dL 01/07/2016 Comp Metabolic Fjy546 A/ G Ratio 1.8 Ratio 01/07/2016 Comp Metabolic Ewq987 Os mo 279 mOsmo 01/07/2016 Tsh Ord6 hTSH II 2.11 uIU/mL 01/07/2016 Urine Culture Ucult Prel iminary No [...] Ord28 U-Com Culture to follow 11/26/2015 Progesterone Anu027 Prog >40.00 ng/mL 11/26/2015 Testosterone Free Direct 695139 FREE TESTOSTERONE 0.6 pg/mL 10/01/2015 Estradiol 211130 ESTRADI OL <5.0 pg/mL 09/26/2015 Urinalysis Ord28 [...] from collection if refrigerated) 09/25/2015 Comp Metabolic Ypp016 NA 142 mEq/L 09/25/2015 Comp Metabolic Nts546 K 4.3 mEq/L 09/25/2015 Comp Metabolic Wdn492 CL 110 mEq/L 09/25/2015 Comp Metabolic Oak024 CO2 23.0 mEq/L 09/25/2015 Comp Metabolic Vnx618 AN ION GAP 13 09/25/2015 Comp Metabolic Aaj979 GL UCOSE 76 mg/dL 09/25/2015 Comp Metabolic Thm499 Cr eat 0.8 mg/dL 09/25/2015 Comp Metabolic Eig648 eG FR 79 ml/min/1.73m2 09/25 Comp Metabolic Cmq795 BUN 17 mg/dL 09/25/2015 Comp Metabolic Awc686 B/ C Ratio 22.4 Ratio 09/25/2015 Comp Metabolic Mbp474 CA LCIUM 9.4 mg/dL 09/25/2015 Comp Metabolic Byc671 AL K PHOS 45 U/L 09/25/2015 Comp Metabolic Cuv004 T(SGOT) 20 U/L 09/25/2015 Comp Metabolic Lin557 AL T(SGPT) 18 U/L 09/25/2015 Comp Metabolic Ndu001 BI LI T 0.5 mg/dL 09/25/2015 Comp Metabolic Lyr868 AL BUMIN 4.0 g/dL 09/25/2015 Comp Metabolic Fjn266 TP RO 6.2 g/dL 09/25/2015 Comp Metabolic Iaw756 GL OB 2.2 g/dL 09/25/2015 Comp Metabolic Qjv961 A/ G Ratio 1.8 Ratio 09/25/2015 Comp Metabolic Tin147 Os mo 283 mOsmo 09/25/2015 Tsh Ord6 hTSH II 4.05 uIU/mL 09/25/2015 Progesterone Yfq800 Prog 21.38 ng/mL 09/25/2015 Free T4 Yox712 FREE T4 0.78 ng/dL 09/25/2015 Cbc With [...] RDW 14.3 % 09/25/2015 Testosterone Free Direct 601461 FREE TESTOSTERONE 1.2 pg/mL 08/31/2015 Estradiol 071364 ESTRADI OL <5.0 pg/mL 08/29/2015 Progesterone Uxp356 Prog 4.37 ng/mL 08/28/2015 Fungal Screen I 850886 * *ASPERGILLUS AB BY ID . 07/23/2015 Fungal Screen I 026204 A SPERGILLUS AB BY ID None Detected 015 Fungal Screen I 741737 * *BLASTOMYCES ANTIBODY BY CF & ID . 07/23/2015 Fungal Screen I 281060 B LASTOMYCES AB,CF <1:8 07/23/2015 Fungal Screen I 767782 B LASTOMYCES AB,ID None Detected 015 Fungal Screen I 116243 * *MAXINE ANTIBODY BY ID . 07/23/2015 Fungal Screen I 189390 C ANDIDA AB BY ID Detected 07/23/2015 Fungal Screen I 549854 * *COCCIDIOIDES ANTIBODIES, IGG & IGM . 07/23/2015 Fungal Screen I 562872 C OCCIDIOIDES AB IGM 0.3 IV 07/23/2015 Fungal Screen I 899386 C OCCIDIOIDES AB IGG 0.4 IV 07/23/2015 Fungal Screen I 457146 * *HISTOPLASMA ANTIBODY BY ID . 07/23/2015 Fungal Screen I 280734 H ISTOPLASMA ABS (ID) None Detected 015 Francisella Tularensis Abs 328988 F. TULARENSIS, IGG 0 U/mL 07/17/2015 Francisella Tularensis Abs 441562 F. TULARENSIS, IGM 0 U/mL 07/17/2015 Vitamin D 25 Oh Hip7160 VITAMIN D, 25 HYDROXY 142.21 ng/mL 07/13/2015 B12 Rns281 B12 956.00 pg/ml 07/12/2015 Antistrptolysin-O Qualitative Jqt037 ASO Negative 07/12/2015 Cbc With Differential Ord2 WBC 4.2 [...] Ord2 RDW 15.1 % 07/10/2015 Free T4 Uwa863 FREE T4 0.79 ng/dL 06/12/2015 Urinalysis Ord28 [...] Ord2 RDW 16.0 % 06/04/2015 Comp Metabolic Izb199 NA 139 mEq/L 06/04/2015 Comp Metabolic Cmt205 K 3.9 mEq/L 06/04/2015 Comp Metabolic Csd013 CL 108 mEq/L 06/04/2015 Comp Metabolic Qtw304 CO2 26.0 mEq/L 06/04/2015 Comp Metabolic Iwi633 AN ION GAP 9 06/04/2015 Comp Metabolic Zor311 GL UCOSE 74 mg/dL 06/04/2015 Comp Metabolic Dal347 Cr eat 0.6 mg/dL 06/04/2015 Comp Metabolic Wlb097 eG FR 102 ml/min/1.73m2 05/10 Comp Metabolic Hhx872 BUN 18 mg/dL 06/04/2015 Comp Metabolic Yde588 B/ C Ratio 29.5 Ratio 06/04/2015 Comp Metabolic Rrn222 CA LCIUM 9.0 mg/dL 06/04/2015 Comp Metabolic Yec730 AL K PHOS 44 U/L 06/04/2015 Comp Metabolic Qkh747 T(SGOT) 22 U/L 06/04/2015 Comp Metabolic Hbh527 AL T(SGPT) 23 U/L 06/04/2015 Comp Metabolic Qgs399 BI LI T 0.4 mg/dL 06/04/2015 Comp Metabolic Vjp719 AL BUMIN 4.0 g/dL 06/04/2015 Comp Metabolic Uxu617 TP RO 5.8 g/dL 06/04/2015 Comp Metabolic Prz244 GL OB 1.8 g/dL 06/04/2015 Comp Metabolic Mrb921 A/ G Ratio 2.2 Ratio 06/04/2015 Comp Metabolic Ujo076 Os mo 278 mOsmo 06/04/2015 Tsh Ord6 hTSH II 5.17 uIU/mL 06/04/2015 Review of Systems System Result Effective Dates Constitutional No recent illness 05/13/2017 Constitutional No [...] clear 04/10/2015 None Procedures Procedure Codes Date PPPS, SUBSEQ VISIT CPT-4: [id number] 03/19/2017 PPPS, SUBSEQ VISIT CPT-4: Y5032Soorbyh 03/11/2016 THER/PROPH/DIAG INJ SC/IM CPT-4: 60119Lukfoxq 12/27/2015 Vital Signs Date Vital 05/13/2017 Blood Pressure 1: 122/70 Code: 8480-6 BMI: 20.5 Code: 66554-1 Heart Rate 1: 80 bpm Height: 5' SpO2: 97% Weight: 105 lbs 03/19/2017 Blood Pressure 1: 138/80 Code: 8480-6 BMI: 20.5 Code: 82454-6 Heart Rate 1: 83 bpm Height: 5' SpO2: 97% Waist Measure (cm): 74 cm Weight: 105 lbs 03/18/2017 Blood Pressure 1: 138/80 Code: 8480-6 BMI: 20.5 Code: 88626-8 Heart Rate 1: 83 bpm Height: 5' SpO2: 97% Weight: 105 lbs 01/27/2017 Blood Pressure 1: 142/68 Code: 8480-6 BMI: 20.5 Code: 69620-8 Heart Rate 1: 69 bpm Height: 5' SpO2: 97% Weight: 105 lbs 12/29/2016 Blood Pressure 1: 154/82 Code: 8480-6 BMI: 20.1 Code: 29203-0 Heart Rate 1: 76 bpm Height: 5' SpO2: 94% Temperature: 37.4 (C ) / 99.4 (F) Weight: 103 lbs 11/19/2016 Blood Pressure 1: 134/74 Code: 8480-6 BMI: 19.7 Code: 36666-5 Heart Rate 1: 64 bpm Height: 5' Weight: 101 lbs 08/13/2016 Blood Pressure 1: 118/56 Code: 8480-6 BMI: 19.5 Code: 01974-6 Heart Rate 1: 64 bpm Height: 5' SpO2: 97% Weight: 100 lbs 07/03/2016 Blood Pressure 1: 120/68 Code: 8480-6 BMI: 19.1 Code: 85415-7 Heart Rate 1: 80 bpm Height: 5' SpO2: 98% Weight: 98 lbs 05/07/2016 Blood Pressure 1: 116/58 Code: 8480-6 BMI: 19.1 Code: 59294-3 Heart Rate 1: 79 bpm Height: 5' SpO2: 98% Weight: 98 lbs 04/08/2016 Blood Pressure 1: 118/58 Code: 8480-6 BMI: 19.0 Code: 80825-7 Heart Rate 1: 78 bpm Height: 5' SpO2: 98% Weight: 97 lbs 8 oz 03/11/2016 Blood Pressure 1: 102/60 Code: 8480-6 BMI: 19.7 Code: 74737-2 Heart Rate 1: 75 bpm Height: 5' SpO2: 94% Waist Measure (cm): 71 cm Weight: 101 lbs 12/27/2015 Blood Pressure 1: 128/72 Code: 8480-6 BMI: 20.2 Code: 90682-0 Heart Rate 1: 95 bpm Height: 5' SpO2: 98% Weight: 103 lbs 8 oz 09/24/2015 Blood Pressure 1: 136/70 Code: 8480-6 BMI: 19.1 Code: 20837-4 Heart Rate 1: 72 bpm Height: 5' SpO2: 97% Weight: 98 lbs 06/26/2015 Blood Pressure 1: 144/64 Code: 8480-6 BMI: 18.9 Code: 88938-9 Heart Rate 1: 77 bpm Height: 5' SpO2: 98% Weight: 97 lbs 04/10/2015 Blood Pressure 1: 132/88 Code: 8480-6 BMI: 18.9 Code: 52274-2 Heart Rate 1: 83 bpm Height: 5' SpO2: 97% Weight: 97 lbs Functional Status No Functional Status data History of Present Illness Symptom Name Status Resu lt Effective Date Notes hypertension Quality tari delio hypertension 05/13/2017 None [...] Encounters Encounter Performer Loca tion Codes Date ([id number]) 34506 EST. 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 P ATIENT, LEVEL IV Diagnosis: Atrophy of thyroid (acquired)[ICD10: E03.4] Diagnosis: Essential (primary) hypertension[ICD10: I10] Diagnosis: Encounter for screening for other musculoskeletal disorder[ICD10: Z13.828] Diagnosis: Low back pain[ICD10: M54.5] Diagnosis: Transient alteration of awareness[ICD10: R40.4] Kailee Moreira MD, [facility] CPT-4: 63759 03/18/2017 ([id number]) 76853 EST. P ATIENT, LEVEL IV Diagnosis: Atrophy of thyroid (acquired)[ICD10: E03.4] Diagnosis: Essential (primary) hypertension[ICD10: I10] Diagnosis: Low back pain[ICD10: M54.5] Kailee Moreira MD, [facility] CPT-4: 96050 01/27/2017 ([id number]) 38070 EST. P ATIENT, LEVEL III Diagnosis: Acute recurrent maxillary sinusitis[ICD10: J01.01] Marixa Moreira MD, [facility] CPT-4: 86262 12/29/2016 ([id number]) 59658 EST. P ATIENT, LEVEL IV Diagnosis: Atrophy of thyroid (acquired)[ICD10: E03.4] Diagnosis: Essential (primary) hypertension[ICD10: I10] Kailee Moreira MD, [facility] CPT-4: 59978 11/19/2016 ([id number]) 82381 EST. P ATIENT, LEVEL IV Diagnosis: Atrophy of thyroid (acquired)[ICD10: E03.4] Diagnosis: Enterocolitis due to Clostridium difficile[ICD10: A04.7] Diagnosis: Essential (primary) hypertension[ICD10: I10] Kailee Moreira MD, [facility] CPT-4: 54583 08/13/2016 ([id number]) 07452 EST. P ATIENT, LEVEL IV Diagnosis: Essential (primary) hypertension[ICD10: I10] Diagnosis: Enterocolitis due to Clostridium difficile[ICD10: A04.7] Diagnosis: Hypothyroidism, unspecified[ICD10: E03.9] Diagnosis: Low back pain[ICD10: M54.5] Kailee Moreira MD, [facility] CPT-4: 40777 07/03/2016 ([id number]) 68746 EST. P ATIENT, LEVEL IV Diagnosis: Enterocolitis due to Clostridium difficile[ICD10: A04.7] Diagnosis: Lyme disease, unspecified[ICD10: A69.20] Kailee Moreira MD, [facility] CPT-4: 70215 05/07/2016 ([id number]) 13105 EST. P ATIENT, LEVEL IV Diagnosis: Generalized abdominal rigidity[ICD10: R19.37] Diagnosis: Diarrhea, unspecified[ICD10: R19.7] Diagnosis: Lyme disease, unspecified[ICD10: A69.20] Kailee Moreira MD, [facility] CPT-4: 67490 04/08/2016 ([id number]) 79400 EST. P ATIENT, LEVEL IV Diagnosis: Hypothyroidism, unspecified[ICD10: E03.9] Diagnosis: Lyme disease, unspecified[ICD10: A69.20] Diagnosis: Tachycardia, unspecified[ICD10: R00.0] Kailee Moreira MD, [facility] CPT-4: 35571 12/27/2015 ([id number]) 20223 EST. P ATIENT, LEVEL III Diagnosis: Essential (primary) hypertension[ICD10: I10] Diagnosis: Benign lipomatous neoplasm of skin and subcutaneous tissue of other sites[ICD10: D17.39] Diagnosis: Low back pain[ICD10: M54.5] [facility] CPT-4: 07038 09/24/2015 ([id number]) 60865 EST. 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 Pt is to continue with current dose of medication unless directed otherwise. Check labs at regular intervals wither q 3 months or q 6 months based on previous levels of control.Seizure disorder/abnormal EEG - increase keppra to 500mg bid - I will have nursing staff call dr. schaeffer about sandras apptLow blood pressure stop lisinopril. 05/13/2017 Patient Education: Patient Medication Summary Completed 05/13/2017 Patient Education: Hypertension Completed 05/13/2017 Appointment: Kailee Moreira WPtel: [address] [place], [place] [id number] (15 min) Moderate 05/06/2017 Visit Plan: Medicare Exam - today we dis cussed the patients past history, immunizations, preventative exams/evaluations [...] risk and to maintain independence in the home.Today we discussed the need for the patient to create paperwork for Advanced directives as well as for the patient to provide this office with a copy of her DOPA paperwork for health care surrogate. 2016 App[facility]ment[facility] [phone] [id number] [facility] - Annual Wellness Visit 03/19/2017 Patient Education: Patient Medication Summary Completed 03/19/2017 Visit Plan: Hypertension - well controll ed - continue with current medications, continue with no added salt diet. Pt has been encouraged to exercise daily.The pt has been advised to call the office if there are any acute concerns about change in blood pressure readings at home.Hypothyroidism - pt with chronic hypothyroidism, continue with current medication, will monitor pt to signs or symptoms of lack of adequate supplementation. Pt is to continue with current dose of medication unless directed otherwise. Check labs at regular intervals wither q 3 months or q 6 months based on previous levels of control.physical therapy at [facility] [place] - water therapy for backeeg - needs ordered at hospital. 03/18/2017 Appointment: [facility]el[facility] [phone] [facility] (15 min) Moderate 03/18/2017 Patient Education: Patient Medication Summary Completed 03/18/2017 Visit Plan: Hypertension - well controll ed - continue with current medications, continue with no added salt diet. Pt has been encouraged to exercise daily.The pt has been advised to call the office if there are any acute concerns about change in blood pressure readings at home.Hypothyroidism - pt with chronic hypothyroidism, continue with current medication, will monitor pt to signs or symptoms of lack of adequate supplementation. Pt is to continue with current dose of medication unless directed otherwise. Check labs at regular intervals wither q 3 months or q 6 months based on previous levels of control.Low back pain- the patient was instructed in appropriate posture, need for weight loss to alleviate abdominal obesity that is worsening the patient's back pain.. The pt is to use prn antiinflammatories to manage acute pain. The patient is to call the office if the pain is worsening or does not improve. 01/27/2017 Appointment: Kailee Moreira WPtel: [phone] [facility] (15 min) Moderate 01/27/2017 Patient Education: Patient Medication Summary Completed 01/27/2017 Patient Education: Hypertension Completed 01/27/2017 Visit Plan: Sinusitis - Pt has acute inf ection - pain in face, maxillary region, Pt informed to use decongestant, RX given to patient, sinus rinses also recommended. Call if symptoms do not show improvement. 12/29/2016 Appointment: Marixa Lakhani WPtel: [phone] [phone] (30 min) Complex 12/29/2016 Patient Education: Patient Medication Summary Completed 12/29/2016 Visit Plan: Hypertension - well controll ed - continue with current medications, continue with no added salt diet. Pt has been encouraged to exercise daily.The pt has been advised to call the office if there are any acute concerns about change in blood pressure readings at home.Hypothyroidism - pt with chronic hypothyroidism, continue with current medication, will monitor pt to signs or symptoms of lack of adequate supplementation. Pt is to continue with current dose of medication unless directed otherwise. Check labs at regular intervals wither q 3 months or q 6 months based on previous levels of control. 2016 Appointment: Kailee Moreira WPtel: [phone] [facility] (15 min) Moderate 11/19/2016 Patient Education: Patient Medication Summary Completed 11/19/2016 Visit Plan: Hypothyroidism - pt with chr onic hypothyroidism, continue with current medication, will monitor pt to signs or symptoms of lack of adequate supplementation. Pt is to continue with current dose of medication unless directed otherwise. Check labs at regular intervals wither q 3 months or q 6 months based on previous levels of control.Hypertension - well controlled - continue with current medications, continue with no added salt diet. Pt has been encouraged to exercise daily.The pt has been advised to call the office if there are any acute concerns about change in blood pressure readings at home.Chronic c-diff colitis - improving - recommended pt continue with current regimen as symptoms have improved. 08/13/2016 Appointment: Kailee Moreira WPtel: [address] [place] [address] (15 min) Moderate 08/13/2016 Patient Education: Patient Medication Summary Completed 08/13/2016 Patient Education: Hypertension Completed 08/13/2016 Appointment: Kailee Moreira WPtel: [address] [place] [address] (30 min) Complex 07/31/2016 Visit Plan: Hypertension - well controll ed - continue with current medications, continue with no added salt diet. Pt has been encouraged to exercise daily.The pt has been advised to call the office if there are any acute concerns about change in blood pressure readings at home.Chronic Clostridium Difficile Colitis - pt has had Cdiff off and on for about 2.5 months - I would recommend restarting flagyl 500mg qidBack pain - continue with current treatment strategy - pt with stable symptoms.Hypothyroidism - pt with chronic hypothyroidism, continue with current medication, will monitor pt to signs or symptoms of lack of adequate supplementation. Pt is to continue with current dose of medication unless directed otherwise. Check labs at regular intervals wither q 3 months or q 6 months based on previous levels of control. 07/03/2016 Appointment: Kailee Moreira WPtel: [address] [place] [address] (15 min) Moderate 07/03/2016 Patient Education: Patient Medication Summary Completed 07/03/2016 Patient Education: Hypertension Completed 07/03/2016 Visit Plan: Cdiff colitis - pt to have r epeat testing - if positive will have to repeat treatment. Continue with probiotic.Lymes disease - continue with treatment per Dr. Carrillo.alex sample x 18 days given to patient. 2015 Appointment: Kailee Moreira WPtel: [address] [place], [place] [phone] (15 min) Moderate 05/07/2016 Patient Education: Patient Medication Summary Completed 05/07/2016 Visit Plan: Diarrhea - suspect the diarr hea is Cdiff related - check stool and treat with flagyl, probiotic to increase to three times daily - continue to hold iv antibiotic.Lyme disease - treating with iv antibiotics - on hold while she has diarrhea. 04/08/2016 Appointment: Kailee Moreira WPtel: [phone] [facility] (15 min) Moderate 04/08/2016 Patient Education: Patient Medication Summary Completed 04/08/2016 Appointment: Kailee Moreira WPtel: [phone] [facility] (15 min) Moderate 04/03/2016 Visit Plan: Medicare Exam - today we dis cussed the patients past history, immunizations, preventative exams/evaluations [...] risk and to maintain independece in the home.Today we discussed the need for the patient to create paperwork for Advanced directives as well as for the patient to provide this office with a copy of her DOPA paperwork for health care surrogate.Lyme disease - Diagnosis: Borreliosis - sees Dr. Nabor Carrillo - has antibiotic treatment plan, see scanned document. 03/11/2016 Visit Plan: Medicare Exam - today we dis cussed the patients past history, immunizations, preventative exams/evaluations [...] risk and to maintain independece in the home.Today we discussed the need for the patient to create paperwork for Advanced directives as well as for the patient to provide this office with a copy of her DOPA paperwork for health care surrogate.Lyme disease - sees Dr. Nabor Carrillo - has antibiotic treatment plan, see scanned document. 03/11/2016 Visit Plan: Medicare Exam - today we dis cussed the patients past history, immunizations, preventative exams/evaluations [...] risk and to maintain independece in the home.Today we discussed the need for the patient to create paperwork for Advanced directives as well as for the patient to provide this office with a copy of her DOPA paperwork for health care surrogate.Lyme disease - sees Dr. Nabor Carrillo - has antibiotic treatment plan, see scanned document. 03/11/2016 Patient Education: Patient Medication Summary Completed 03/11/2016 Appointment: Kailee Moreira WPtel: [facility] (15 min) Moderate 01/24/2016 Visit Plan: Tachycardia - I have attempt ed to call Dr. Corbin's office - I left a message on the Nurse-Line -for Dr. Corbin's office - to ask about irregular beats or rapid heart beats.I have called to ask about the patient qualifying for cardiac rehab - they have yet to call back.Injection today for antibiotic.Hypothyroidism - pt with chronic hypothyroidism, continue with current medication, will monitor pt to signs or symptoms of lack of adequate supplementation. Pt is to continue with current dose of medication unless directed otherwise. Check labs at regular intervals wither q 3 months or q 6 months based on previous levels of control. 12/27/2015 Appointment: Kailee Moreira WPtel: [id number] (15 min) Moderate 12/27/2015 Patient Education: Patient Medication Summary Completed 12/27/2015 Visit Plan: Hypertension - well controll ed - continue with current medications, continue with no added salt diet. 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 09/24/2015 Patient Education: Patient Medication Summary Completed 09/24/2015 Patient Education: Hypertension Completed 09/24/2015 Patient Education: Patient Medication Summary Completed 07/10/2015 Visit Plan: Hypothyroidism - pt with chr onic hypothyroidism, continue with current medication, will monitor pt to signs or symptoms of lack of adequate supplementation. Pt is to continue with current dose of medication unless directed otherwise. Check labs at regular intervals wither q 3 months or q 6 months based on previous levels of control.Low back pain- the patient was instructed in appropriate posture, need for weight loss to alleviate abdominal obesity that is worsening the patient's back pain.. The pt is to use prn antiinflammatories to manage acute pain. The patient is to call the office if the pain is worsening or does not improve. 06/26/2015 Visit Plan: Hypothyroidism - pt with chr onic hypothyroidism, continue with current medication, will monitor pt to signs or symptoms of lack of adequate supplementation. Pt is to continue with current dose of medication unless directed otherwise. Check labs at regular intervals wither q 3 months or q 6 months based on previous levels of control.Low back pain- the patient was instructed in appropriate posture, need for weight loss to alleviate abdominal obesity that is worsening the patient's back pain.. The pt is to use prn antiinflammatories to manage acute pain. The patient is to call the office if the pain is worsening or does not improve. 06/26/2015 Appointment: Kailee Moreira WPtel: [address] [place], [place] [id number] (15 min) Moderate 06/26/2015 Patient Education: Patient Medication Summary Completed 06/26/2015 Patient Education: Patient Medication Summary Completed 06/06/2015 Visit Plan: Hypertension - well controll ed - continue with current medications, continue with no added salt diet. 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 REPEAT MRI SPINE . 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 Hypothyroidism - p t with chronic [...] previous levels of control. physical therapy at [facility] [place] - water therapy for back eeg - [...] intervention needed unless the lesion increases. . Medicare Exam - to day we [...] have nursing staff call dr. schaeffer about josefinaras appt Low blood pressure stop lisinopril. DOXYCYCLINE 100MG TW ICE DAILY X 7 DAYS . Sinusitis - Pt has acute infection - p ain in face, maxillary region, Pt informed to use decongestant, RX given to patient, sinus rinses also recommended. Call if symptoms do not show improvement.
--- OUTSIDE RECORDS SUMMARY | 2020-05-05 11:56 | XMS REPORT | CCD ---
Author Author Emily Lakhani Organization [facility] Address [address] [place] [address] Phone Care Team Providers Care Form Maker Plaster Name Role Phone PP Unavailable CCM Unavailable Summary Purpose Interface Exchange Insurance Providers Payer name Policy type / Coverage type Covered democrat ID Effective Begin Date Effective End Date WPS Medicare Part B Medicare Part B [id number] Unknown Unknown [employer] Medicare Part B [id number] Unknown Unknown Family history Mother Diagnosis Age [...] Retir ed 04/10/[address]: 159444480 Never smoker 04/10/[address]: 936033221 Never drinks alcohol 04/10/2015 Allergies, Adverse Reactions, Alerts Allergies, Adverse Reactions, Alerts data not found Past Medical History Illness Codes Condition Status Onset Date Resolved Date Encounter for genera l adult medical examination with abnormal findings ICD-9: V70.0 ICD-10: Z00.01 Active 03/10/2016 Unknown 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 ICD-10: E03.4 Active 11/18/2016 Unknown Encounter for screen ing for other musculoskeletal disorder ICD-9: 733.90 ICD-10: Z13.828 Active 03/18/2017 Unknown Essential (primary) hypertension ICD-9: 401.9 ICD-10: I10 Active 04/09/2015 Unknown Low back pain ICD-9: 724.2 ICD-10: [...] Condition Codes Effectiv e Dates Condition Status Encounter for genera l adult medical examination with abnormal findings ICD-9: V70.0 ICD-10: Z00.01 03/10/2016 Active 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 ICD-10: E03.4 11/18/2016 Active Encounter for screen ing for other musculoskeletal disorder ICD-9: 733.90 ICD-10: Z13.828 03/18/2017 Active Essential (primary) hypertension ICD-9: 401.9 ICD-10: I10 04/09/2015 Active Low back pain ICD-9: 724.2 ICD-10: [...] Date Stop Date Sta tus Fill Instructions Deplin (algal oil) 1 5 mg-90.314 mg capsule RxNorm: TAKE ONE CAPSULE BY MOUTH O NE TIME DAILY 05/13/2017 02/06/2018 Active Keppra 250 mg tablet RxNorm: 216711 1 Tablet(s) PO daily 04/23/2017 04/26/2017 Inactive take 1 tab qd x 1 week then increase to BID Keppra 250 mg tablet RxNorm: 400378 1 Tablet(s) PO daily 04/23/2017 04/22/2017 Inactive take 1 tab qd x 1 week then increase to BID cyclobenzaprine 5 mg tablet RxNorm: 534685 1 Tablet(s) PO TID as needed 02/03/2017 02/22/2017 In active cyclobenzaprine 5 mg tablet RxNorm: 463077 1 Tablet(s) PO TID as needed 02/03/2017 02/02/2017 In active [place] Thyroid 90 mg tablet RxNorm: 478566 1/2 Tablet(s) PO daily 11/19/2016 03/18/2017 Inactive amitriptyline 10 mg tablet RxNorm: 717365 1/2 to 1 Tablet(s) PO QPM 11/19/2016 11/13/2017 Active fluconazole 50 mg ta blet RxNorm: 323451 1 Tablet(s) PO daily 08/20/2016 09/02/2016 Inactive [place] Thyroid 90 mg tablet RxNorm: 084779 1/2 Tablet(s) PO daily 08/11/2016 11/18/2016 Inactive Flagyl 500 mg tablet RxNorm: 047006 1 Tablet(s) PO TID 07/28/2016 08/06/2016 Inactive Flagyl 500 mg tablet RxNorm: 499769 1 Tablet(s) PO TID 07/17/2016 07/27/2016 Inactive amitriptyline 10 mg tablet RxNorm: 445269 1/2 to 1 Tablet(s) PO QPM 07/03/2016 10/30/2016 Inactive metronidazole 500 mg tablet RxNorm: 763836 1 Tablet(s) PO QID 07/03/2016 07/12/2016 Inactive amitriptyline 25 mg tablet RxNorm: 593680 1/2 -1 Tablet(s) PO Q HS as needed insomnia 06/26/2016 07/02/2016 Inactive vancomycin 125 mg ca psule RxNorm: 560926 1 Capsule(s) PO QID 06/20/2016 06/29/2016 Inactive [place] Thyroid 30 mg tablet RxNorm: 582978 1.5 Tablet(s) PO daily 06/20/2016 06/19/2016 Inactive [place] Thyroid 30 mg tablet RxNorm: 226163 1.5 Tablet(s) PO daily 06/20/2016 08/10/2016 Inactive fluconazole 50 mg ta blet RxNorm: 264515 1 Tablet(s) PO daily 06/16/2016 08/19/2016 Inactive amitriptyline 25 mg tablet RxNorm: 126777 1/2 -1 Tablet(s) PO Q HS as needed insomnia 06/12/2016 06/11/2016 Inactive amitriptyline 25 mg tablet RxNorm: 215468 1/2 -1 Tablet(s) PO Q HS as needed insomnia 06/12/2016 06/25/2016 Inactive vancomycin 125 mg ca psule RxNorm: 041316 1 Capsule(s) PO QID 06/12/2016 06/19/2016 Inactive fluconazole 50 mg ta blet RxNorm: 680388 1 Tablet(s) PO daily 06/12/2016 06/15/2016 Inactive Diflucan 150 mg tablet RxNorm: 179529 1 Tablet(s) PO daily 06/05/2016 06/09/2016 Inactive Deplin (algal oil) 1 5 mg-90.314 mg capsule RxNorm: 1 Capsule(s) PO daily 06/05/2016 06/04/2016 In active Diflucan 150 mg tablet RxNorm: 495925 1 Tablet(s) PO daily 06/05/2016 06/04/2016 Inactive Deplin (algal oil) 1 5 mg-90.314 mg capsule RxNorm: 1 Capsule(s) PO daily 06/05/2016 05/12/2017 In active nystatin 500,000 uni t tablet RxNorm: 149800 4 Tablet(s) PO daily 05/21/2016 09/17/2016 Inactive Vitamin D3 5,000 uni t tablet RxNorm: 750140 Tablet(s) PO daily 05/07/2016 No Stop Date Active progesterone microni zed 100 mg capsule RxNorm: 389675 3 Capsule(s) PO daily on days 1- 25 of each month 05/07/2016 No Stop Date Active nystatin 500,000 uni t tablet RxNorm: 586186 1 Tablet(s) PO Q4H 05/07/2016 05/20/2016 Inactive fluconazole 100 mg t ablet RxNorm: 554836 1 Tablet(s) PO daily 05/07/2016 06/11/2016 Inactive metronidazole 500 mg tablet RxNorm: 419855 1 Tablet(s) PO TID 04/30/2016 05/09/2016 Inactive metronidazole 500 mg tablet RxNorm: 598181 1 Tablet(s) PO TID 04/30/2016 04/29/2016 Inactive vancomycin 125 mg ca psule RxNorm: 371737 1 Capsule(s) PO QID 04/29/2016 05/08/2016 Inactive vancomycin 125 mg ca psule RxNorm: 505340 1 Capsule(s) PO QID 04/29/2016 04/28/2016 Inactive Flagyl 500 mg tablet RxNorm: 163028 1 Tablet(s) PO TID 04/09/2016 04/08/2016 Inactive Flagyl 500 mg tablet RxNorm: 026853 1 Tablet(s) PO TID 04/09/2016 04/22/2016 Inactive carvedilol 3.125 mg tablet RxNorm: 368701 1 Tablet(s) PO BID 04/08/2016 No Stop Date Active [place] Thyroid 60 mg tablet RxNorm: 690909 Tablet(s) PO 1 Tablet (s) daily 01/31/2016 06/19/2016 In active Pt request 90 day supply 11/23/2015 11:1 1:54 AM [place] Thyroid 30 mg tablet RxNorm: 644080 1 Tablet(s) daily 01/28/2016 01/30/2016 Inactive Pt request 90 day supply 11/23/2015 11:1 1:54 AM [place] Thyroid 30 mg tablet RxNorm: 751763 1 Tablet(s) daily 01/21/2016 01/27/2016 Inactive Pt request 90 day supply 11/23/2015 11:1 1:54 AM [place] Thyroid 30 mg tablet RxNorm: 321729 Tablet(s) TAKE ONE AN D ONE-HALF (45 MG) TABLET BY MOUTH EVERY DAY 01/02/2016 01/20/2016 Inactive Pt request 90 day supply 11/23/2015 11:11:54 AM Xylocaine 20 mg/mL ( 2 %) injection solution RxNorm: 6061504 2.5 Milliliter(s) In j BID with cefepime 12/27/2015 01/25/2016 Inactive cefepime 1 gram solu tion for injection RxNorm: 9226464 Inj 12/1012/27/2015 Inactive [place] Thyroid 30 mg tablet RxNorm: 926120 TAKE ONE TABLET BY MO UTH EVERY DAY 11/23/2015 01/01/2016 In active Pt request day supply 11/23/2015 11:1 1:54 AM Voltaren 1 % topical gel RxNorm: 110965 2 Gram(s) TOP QID 09/24/2015 12/26/2015 Inactive cyclobenzaprine 10 m g tablet RxNorm: 412234 1 Tablet(s) PO Q6 as needed 08/27/2015 05/06/2016 In active [place] Thyroid 30 mg tablet RxNorm: 476985 1 Tablet(s) PO daily 06/21/2015 06/20/2015 Inactive [place] Thyroid 30 mg tablet RxNorm: 564947 1 Tablet(s) PO daily 06/21/2015 11/22/2015 Inactive Synthroid 25 mcg tablet RxNorm: 603814 1 Tablet(s) PO daily 06/07/2015 06/06/2015 Inactive KASEY-1 Synthroid 25 mcg tablet RxNorm: 480993 1 Tablet(s) PO daily 06/07/2015 06/20/2015 Inactive KASEY-1 ofloxacin 0.3 % ear drops RxNorm: 472117 1-2 Drop(s) OTIC OU Q 4H as needed No Start Date Active Aspirin Low Dose 81 mg tablet,delayed release RxNorm: 323072 1 Tablet(s) PO daily No Start Date Active tyrosine (bulk) powder RxNorm: 1 Miscellaneous dash every am No Start Date Active lisinopril 5 mg tablet RxNorm: 547952 1 Tablet(s) PO daily No Start Date Active arginine (L-arginine ) oral RxNorm: 1091 oral No Sta rt Date Active glutathione RxNorm: 4890 miscellaneous No Start Date Active Plaquenil 200 mg tablet RxNorm: 730600 1 Tablet(s) PO BID No Start Date 05/19/2016 Inactive fluconazole 100 mg t ablet RxNorm: 400648 1/2 Tablet(s) PO daily No Start Date 05/06/2016 Inactive fluconazole 150 mg t ablet RxNorm: 632605 1 Tablet(s) PO QW x4 No Start Date 12/26/2015 Inactive progesterone microni zed 100 mg capsule RxNorm: 099870 2 Capsule(s) PO daily No Start Date 05/06/2016 Inactive nystatin 500,000 uni t tablet RxNorm: 699132 1 Tablet(s) PO QID No Start Date 05/06/2016 Inactive cyclobenzaprine 10 m g tablet RxNorm: 921565 1 Tablet(s) PO Q6 as needed No Start Date 08/26/2015 Inactive vitamin K oral RxNorm: 8308 oral No Start Date 12/26/2015 Inactive carvedilol 3.125 mg tablet RxNorm: 226240 1 Tablet(s) PO daily No Start Date 04/07/2016 Inactive azithromycin 250 mg tablet RxNorm: 376717 1 Tablet(s) PO daily will incrase to 2 per day No Start Date 12/26/2015 Inactive Probiotic 4X oral RxNorm: 8073369 oral No Start Date 01/07/2016 Inactive Vitamin D3 1,000 uni t tablet RxNorm: 074164 Tablet(s) PO daily No Start Date 05/06/2016 Inactive progesterone microni zed 100 mg capsule RxNorm: 006103 3 Capsule(s) PO daily rx from [facility] No Start Date 12/26/2015 Inactive lorazepam 0.5 mg tablet RxNorm: 399267 1/2-1 Tablet(s) PO daily as needed No Start Date 03/10/2016 Inactive Multiple Vitamin oral RxNorm: 53893 oral No Start Date 05/06/2016 Inactive Medication Administered Medication Codes Instruc tions Start Date Status cefepime 1 gram solution for injection RxNorm: 7849304 12/27/2015 No longer A ctive Immunizations No Immunization data Assessments Condition Codes Effectiv e Dates Encounter for general adult medical exam ination with abnormal findings ICD-10: Z00.01 ICD-9: V70.0 03/19/2017 Encounter for screening for other musculoskeletal diso rder ICD-10: Z13.828 ICD-9: 733.90 03/18/2017 Atrophy of thyroid (acquired) ICD-10 : E03.4 ICD-9: 244.8 03/18/2017 Transient alteration of awareness IC D-10: R40.4 ICD-9: 780.02 03/18/2017 Low back pain ICD-10: M54.5 ICD-9: 724.2 03/18/2017 Essential (primary) hypertension ICD -10: I10 ICD-9: 401.9 03/18/2017 Acute recurrent maxillary sinusitis ICD-10: J01.01 ICD-9: 461.0 12/29/2016 Enterocolitis due to Clostridium difficile ICD-10: A04.7 ICD-9: 008.45 08/13/2016 Hypothyroidism, unspecified ICD-10: E03.9 ICD-9: 244.9 07/03/2016 Lyme disease, unspecified ICD-10: A6 9.20 ICD-9: 088.81 05/07/2016 Generalized abdominal rigidity ICD-1 0: R19.37 ICD-9: 789.47 04/08/2016 Diarrhea, unspecified ICD-10: R19.7 ICD-9: 787.91 04/08/2016 Abnormal results of thyroid function studies ICD-10: R94.6 ICD-9: 794.5 03/11/2016 Other conditions associated with Lyme disease ICD-10: A69.29 ICD-9: 088.81 03/11/2016 Tachycardia, unspecified ICD-10: R00 .0 ICD-9: 785.0 12/27/2015 Benign lipomatous neoplasm of skin and s ubcutaneous tissue of other sites ICD-10: D17.39 ICD-9: 214.1 09/24/2015 Lyme disease ICD-9: 088.81 07/10/2015 HYPOTHYROIDISM ICD-9: 244.9 06/26/2015 Low back pain ICD-9: 724.2 06/26/2015 Elevated TSH ICD-9: 794.5 06/06/2015 ESSENTIAL HYPERTENSION ICD-9: 401.9 04/10/2015 CAD (coronary artery disease) ICD-9: 414.0 0 04/10/2015 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 04/10/2015 Reason For Visit Reason For Visit Effective Dates Notes Annual Medicare Wellness Exam 03/19/2017 hypertension 03/18/2017 [...] 40.5 % 11/20/2016 Cbc With Differential Ord2 Lymph% 36.3 % 11/20/2016 Cbc With Differential Ord2 MCV 92.3 fl 11/20/2016 Cbc With Differential Ord2 [place]% 10.8 % 11/20/2016 Cbc With Differential Ord2 MCH 30.5 pg 11/20/2016 Cbc With Differential Ord2 MCHC 33.1 pg 11/20/2016 Cbc With Differential Ord2 Eos% 5.4 % 11/20/2016 Cbc With Differential Ord2 Baso% 0.4 % 11/20/2016 Cbc With Differential Ord2 PLT 243 K/ul 11/20/2016 Cbc With Differential Ord2 Neut ABS# 2.10 K/ul 11/20/2016 Cbc With Differential Ord2 RDW 14.6 % 11/20/2016 Cbc With Differential Ord2 Lymph ABS# 1.62 K/ul 11/20/2016 Cbc With Differential Ord2 [place] ABS# 0.5 K/ul 11/20/2016 Cbc With Differential Ord2 Eos ABS# 0.2 K/ul 11/20/2016 Cbc With Differential Ord2 Baso ABS# 0.0 K/ul 11/20/2016 Free T4 Raq350 FREE T4 0.80 ng/dL 11/20/2016 Tsh Ord6 hTSH II 1.35 uIU/mL 11/20/2016 Comp Metabolic Wjs780 NA 139 mEq/L 11/20/2016 Comp Metabolic Zjo110 K 3.9 mEq/L 11/20/2016 Comp Metabolic Ulc756 CL 103 mEq/L 11/20/2016 Comp Metabolic Qrk700 CO2 30.0 mEq/L 11/20/2016 Comp Metabolic Rtc318 AN ION GAP 10 11/20/2016 Comp Metabolic Hzb509 GL UCOSE 85 mg/dL 11/20/2016 Comp Metabolic Nhe550 Cr eat 0.7 mg/dL 11/20/2016 Comp Metabolic Wih278 eG FR 93 ml/min/1.73m2 11/20 Comp Metabolic Fvn535 BUN 12 mg/dL 11/20/2016 Comp Metabolic Cze231 B/ C Ratio 18.2 Ratio 11/20/2016 Comp Metabolic Avs267 CA LCIUM 9.1 mg/dL 11/20/2016 Comp Metabolic Rur477 AL K PHOS 34 U/L 11/20/2016 Comp Metabolic Hxp933 T(SGOT) 18 U/L 11/20/2016 Comp Metabolic Iwy008 AL T(SGPT) 14 U/L 11/20/2016 Comp Metabolic Mtt196 BI LI T 0.5 mg/dL 11/20/2016 Comp Metabolic Hpe578 AL BUMIN 4.2 g/dL 11/20/2016 Comp Metabolic Mzf479 TP RO 6.3 g/dL 11/20/2016 Comp Metabolic Rgt525 GL OB 2.1 g/dL 11/20/2016 Comp Metabolic Uza083 A/ G Ratio 2.0 Ratio 11/20/2016 Comp Metabolic Qds383 Os mo 277 mOsmo 11/20/2016 Lipid Ord30 CHOL 189 mg/dL 11/20/2016 Lipid Ord30 HDL 81.0 mg/dl 11/20/2016 Lipid Ord30 TRIG 77 mg/dL 11/20/2016 Lipid Ord30 LDL 93 mg/dL 11/20/2016 Lipid Ord30 C/HDL 2.3 Ratio 11/20/2016 Testosterone Free Direct 192953 FREE TESTOSTERONE 0.7 pg/mL 10/06/2016 Estradiol 875091 ESTRADI OL 5.9 pg/mL 10/03/2016 Cortisol 763322 CORTISOL 23 ug/dL 10/03/2016 Progesterone Hjq020 Prog 17.38 ng/mL 10/01/2016 Tsh Ord6 hTSH II 0.99 uIU/mL 08/13/2016 Free T4 Iyg798 FREE T4 0.66 ng/dL 08/13/2016 Testosterone Free Direct 559213 FREE TESTOSTERONE <0.2 pg/mL 07/05/2016 Estradiol 546259 ESTRADI OL <5.0 pg/mL 07/03/2016 Progesterone Nih205 Prog 23.37 ng/mL 07/02/2016 Free T4 Hvx428 FREE T4 0.86 ng/dL 06/17/2016 Tsh Ord6 hTSH II 0.24 uIU/mL 06/17/2016 Estradiol 373119 ESTRADI OL <5.0 pg/mL 05/21/2016 Comp Metabolic Pop554 NA 140 mEq/L 05/20/2016 Comp Metabolic Xdr028 K 4.1 mEq/L 05/20/2016 Comp Metabolic Uoy542 CL 106 mEq/L 05/20/2016 Comp Metabolic Mah332 CO2 26.0 mEq/L 05/20/2016 Comp Metabolic Ulp177 AN ION GAP 12 05/20/2016 Comp Metabolic Urq879 GL UCOSE 81 mg/dL 05/20/2016 Comp Metabolic Wiy653 Cr eat 0.5 mg/dL 05/20/2016 Comp Metabolic Ent380 eG FR 119 ml/min/1.73m2 05/09 Comp Metabolic Qyy407 BUN 15 mg/dL 05/20/2016 Comp Metabolic Kch379 B/ C Ratio 28.3 Ratio 05/20/2016 Comp Metabolic Yxa718 CA LCIUM 8.9 mg/dL 05/20/2016 Comp Metabolic Pop971 AL K PHOS 36 U/L 05/20/2016 Comp Metabolic Hdx286 T(SGOT) 25 U/L 05/20/2016 Comp Metabolic Nzu198 AL T(SGPT) 23 U/L 05/20/2016 Comp Metabolic Ich941 BI LI T 0.4 mg/dL 05/20/2016 Comp Metabolic Apx853 AL BUMIN 3.7 g/dL 05/20/2016 Comp Metabolic Cam051 TP RO 5.9 g/dL 05/20/2016 Comp Metabolic Mgs663 GL OB 2.2 g/dL 05/20/2016 Comp Metabolic Fph105 A/ G Ratio 1.7 Ratio 05/20/2016 Comp Metabolic Vzt703 Os mo 279 mOsmo 05/20/2016 Cbc With Differential Ord2 WBC 4.63 K/ul 05/20/2016 Cbc With Differential Ord2 RBC 4.30 M/ul 05/20/2016 Cbc With Differential Ord2 HGB 13.0 g/dl 05/20/2016 Cbc With Differential Ord2 HCT 38.6 % 05/20/2016 Cbc With Differential Ord2 Neut% 64.7 % 05/20/2016 Cbc With Differential Ord2 Lymph% 18.4 % 05/20/2016 Cbc With Differential Ord2 MCV 89.8 fl 05/20/2016 Cbc With Differential Ord2 MCH 30.2 pg 05/20/2016 Cbc With Differential Ord2 [place]% 13.0 % 05/20/2016 Cbc With Differential Ord2 MCHC 33.7 pg 05/20/2016 Cbc With Differential Ord2 Eos% 3.5 % 05/20/2016 Cbc With Differential Ord2 Baso% 0.4 % 05/20/2016 Cbc With Differential Ord2 PLT 224 K/ul 05/20/2016 Cbc With Differential Ord2 Neut ABS# 3.00 K/ul 05/20/2016 Cbc With Differential Ord2 RDW 15.7 % 05/20/2016 Cbc With Differential Ord2 Lymph ABS# 0.85 K/ul 05/20/2016 Cbc With Differential Ord2 [place] ABS# 0.6 K/ul 05/20/2016 Cbc With Differential [...] 48 hours from collection if refrigerated) 05/20/2016 Progesterone Ugp323 Prog 8.44 ng/mL 05/20/2016 Testosterone Free Direct 889994 FREE TESTOSTERONE 0.6 pg/mL 05/19/2016 Estradiol 922153 ESTRADI OL <5.0 pg/mL 05/16/2016 Comp Metabolic Llq708 NA 140 mEq/L 05/15/2016 Comp Metabolic Uhr004 K 3.8 mEq/L 05/15/2016 Comp Metabolic Cpl576 CL 106 mEq/L 05/15/2016 Comp Metabolic Oag776 CO2 26.0 mEq/L 05/15/2016 Comp Metabolic Aig240 AN ION GAP 12 05/15/2016 Comp Metabolic Hyt624 GL UCOSE 77 mg/dL 05/15/2016 Comp Metabolic Gkx720 Cr eat 0.5 mg/dL 05/15/2016 Comp Metabolic Gnr152 eG FR 144 ml/min/1.73m2 05/2016 Comp Metabolic Swb782 BUN 18 mg/dL 05/15/2016 Comp Metabolic Dic857 B/ C Ratio 40.0 Ratio 05/15/2016 Comp Metabolic Sui680 CA LCIUM 8.8 mg/dL 05/15/2016 Comp Metabolic Qrc998 AL K PHOS 28 U/L 05/15/2016 Comp Metabolic Dpn590 T(SGOT) 19 U/L 05/15/2016 Comp Metabolic Uso995 AL T(SGPT) 19 U/L 05/15/2016 Comp Metabolic Azd344 BI LI T 0.5 mg/dL 05/15/2016 Comp Metabolic Rpk764 AL BUMIN 3.6 g/dL 05/15/2016 Comp Metabolic Iwe722 TP RO 5.6 g/dL 05/15/2016 Comp Metabolic Ghd315 GL OB 2.0 g/dL 05/15/2016 Comp Metabolic Qwc348 A/ G Ratio 1.8 Ratio 05/15/2016 Comp Metabolic Igx189 Os mo 280 mOsmo 05/15/2016 Cbc With Differential Ord2 WBC 4.46 K/ul 05/15/2016 Cbc With Differential Ord2 RBC 4.18 M/ul 05/15/2016 Cbc With Differential Ord2 HGB 12.5 g/dl 05/15/2016 Cbc With Differential Ord2 HCT 37.8 % 05/15/2016 Cbc With Differential Ord2 Neut% 47.9 % 05/15/2016 Cbc With Differential Ord2 MCV 90.4 fl 05/15/2016 Cbc With Differential Ord2 Lymph% 31.8 % 05/15/2016 Cbc With Differential Ord2 [place]% 14.1 % 05/15/2016 Cbc With Differential Ord2 MCH 29.9 pg 05/15/2016 Cbc With Differential Ord2 MCHC 33.1 pg 05/15/2016 Cbc With Differential Ord2 Eos% 5.8 % 05/15/2016 Cbc With Differential Ord2 Baso% 0.4 % 05/15/2016 Cbc With Differential Ord2 PLT 262 K/ul 05/15/2016 Cbc With Differential Ord2 RDW 16.3 % 05/15/2016 Cbc With Differential Ord2 Neut ABS# 2.13 K/ul 05/15/2016 Cbc With Differential Ord2 Lymph ABS# 1.42 K/ul 05/15/2016 Cbc With Differential Ord2 [place] ABS# 0.6 K/ul 05/15/2016 Cbc With Differential [...] None 05/15/2016 Urinalysis Ord28 U-Yeast NEGATIVE 05/15/2016 Progesterone Dyj419 Prog 9.08 ng/mL 05/15/2016 Testosterone Free Direct 842700 FREE TESTOSTERONE 0.2 pg/mL 05/09/2016 Estradiol 023567 ESTRADI OL <5.0 pg/mL 05/07/2016 Comp Metabolic Qaj569 NA 141 mEq/L 05/06/2016 Comp Metabolic Itd326 K 3.6 mEq/L 05/06/2016 Comp Metabolic Ofi340 CL 107 mEq/L 05/06/2016 Comp Metabolic Lje301 CO2 28.0 mEq/L 05/06/2016 Comp Metabolic Wvn881 AN ION GAP 10 05/06/2016 Comp Metabolic Bqr565 GL UCOSE 138 mg/dL 05/06/2016 Comp Metabolic Acf263 Cr eat 0.5 mg/dL 05/06/2016 Comp Metabolic Bgs145 eG FR 119 ml/min/1.73m2 04/10 Comp Metabolic Rwp946 BUN 16 mg/dL 05/06/2016 Comp Metabolic Glw662 B/ C Ratio 30.2 Ratio 05/06/2016 Comp Metabolic Ftx799 CA LCIUM 8.9 mg/dL 05/06/2016 Comp Metabolic Msj499 AL K PHOS 29 U/L 05/06/2016 Comp Metabolic Nim760 T(SGOT) 20 U/L 05/06/2016 Comp Metabolic Qzv210 AL T(SGPT) 21 U/L 05/06/2016 Comp Metabolic Ute950 BI LI T 0.4 mg/dL 05/06/2016 Comp Metabolic Fsr228 AL BUMIN 3.6 g/dL 05/06/2016 Comp Metabolic Egc398 TP RO 5.5 g/dL 05/06/2016 Comp Metabolic Pti252 GL OB 1.9 g/dL 05/06/2016 Comp Metabolic Jfz739 A/ G Ratio 1.9 Ratio 05/06/2016 Comp Metabolic Dmb414 Os mo 285 mOsmo 05/06/2016 Urinalysis Ord28 [...] U-VOL VOLUME SUFFICIENT (10mL) 05/06/2016 Urinalysis Ord28 U-Com Urine saved if culture needed (specimen acceptable for 48 hours from collection if refrigerated) 05/06/2016 Urinalysis Ord28 U-Yeast NEGATIVE 05/06/2016 Progesterone Lzh485 Prog 0.98 ng/mL 05/06/2016 Cbc With Differential [...] 29.9 % 05/06/2016 Cbc With Differential Ord2 [place]% 10.1 % 05/06/2016 Cbc With Differential Ord2 [...] 1.16 K/ul 05/06/2016 Cbc With Differential Ord2 [place] ABS# 0.4 K/ul 05/06/2016 Cbc With Differential Ord2 Eos ABS# 0.2 K/ul 05/06/2016 Cbc With Differential Ord2 Baso ABS# 0.0 K/ul 05/06/2016 Comp Metabolic Ptp521 NA 141 mEq/L 04/29/2016 Comp Metabolic Txy506 K 4.0 mEq/L 04/29/2016 Comp Metabolic Fqo248 CL 108 mEq/L 04/29/2016 Comp Metabolic Nnh338 CO2 27.0 mEq/L 04/29/2016 Comp Metabolic Ajt488 AN ION GAP 10 04/29/2016 Comp Metabolic Oao742 GL UCOSE 69 mg/dL 04/29/2016 Comp Metabolic Zkd288 Cr eat 0.5 mg/dL 04/29/2016 Comp Metabolic Doo778 eG FR 122 ml/min/1.73m2 04/10 Comp Metabolic Eoe291 BUN 19 mg/dL 04/29/2016 Comp Metabolic Xqm003 B/ C Ratio 36.5 Ratio 04/29/2016 Comp Metabolic Fjp250 CA LCIUM 9.1 mg/dL 04/29/2016 Comp Metabolic Kwo935 AL K PHOS 31 U/L 04/29/2016 Comp Metabolic Cuf858 T(SGOT) 20 U/L 04/29/2016 Comp Metabolic Jlo910 AL T(SGPT) 22 U/L 04/29/2016 Comp Metabolic Hah629 BI LI T 0.6 mg/dL 04/29/2016 Comp Metabolic Nuy199 AL BUMIN 3.8 g/dL 04/29/2016 Comp Metabolic Oix469 TP RO 5.9 g/dL 04/29/2016 Comp Metabolic Ufy050 GL OB 2.1 g/dL 04/29/2016 Comp Metabolic Joi939 A/ G Ratio 1.8 Ratio 04/29/2016 Comp Metabolic Nlp729 Os mo 282 mOsmo 04/29/2016 Urinalysis Ord28 U-Color Yellow 04/29/2016 Urinalysis [...] 48 hours from collection if refrigerated) 04/29/2016 Progesterone Hqs308 Prog 5.99 ng/mL 04/29/2016 Cbc With Differential Ord2 WBC 3.97 K/ul 04/29/2016 Cbc With Differential Ord2 RBC 4.33 M/ul 04/29/2016 Cbc With Differential Ord2 HGB 12.8 g/dl 04/29/2016 Cbc With Differential Ord2 HCT 38.5 % 04/29/2016 Cbc With Differential Ord2 Neut% 46.3 % 04/29/2016 Cbc With Differential Ord2 MCV 88.9 fl 04/29/2016 Cbc With Differential Ord2 Lymph% 35.8 % 04/29/2016 Cbc With Differential Ord2 [place]% 13.1 % 04/29/2016 Cbc With Differential Ord2 MCH 29.6 pg 04/29/2016 Cbc With Differential Ord2 MCHC 33.2 pg 04/29/2016 Cbc With Differential Ord2 Eos% 4.0 % 04/29/2016 Cbc With Differential Ord2 Baso% 0.8 % 04/29/2016 Cbc With Differential Ord2 PLT 253 K/ul 04/29/2016 Cbc With Differential Ord2 RDW 15.5 % 04/29/2016 Cbc With Differential Ord2 Neut ABS# 1.84 K/ul 04/29/2016 Cbc With Differential Ord2 Lymph ABS# 1.42 K/ul 04/29/2016 Cbc With Differential Ord2 [place] ABS# 0.5 K/ul 04/29/2016 Cbc With Differential Ord2 Eos ABS# 0.2 K/ul 04/29/2016 Cbc With Differential Ord2 Baso ABS# 0.0 K/ul 04/29/2016 Urinalysis Ord28 U-Color Yellow 04/25/2016 Urinalysis [...] from collection if refrigerated) 04/25/2016 Comp Metabolic Ild878 NA 138 mEq/L 04/25/2016 Comp Metabolic Tpn934 K 3.6 mEq/L 04/25/2016 Comp Metabolic Woz355 CL 105 mEq/L 04/25/2016 Comp Metabolic Rfo019 CO2 27.0 mEq/L 04/25/2016 Comp Metabolic Cmu625 AN ION GAP 10 04/25/2016 Comp Metabolic Ovz744 GL UCOSE 190 mg/dL 04/25/2016 Comp Metabolic Dcr101 Cr eat 0.5 mg/dL 04/25/2016 Comp Metabolic Ald154 eG FR 128 ml/min/1.73m2 04/09 Comp Metabolic Ghe269 BUN 17 mg/dL 04/25/2016 Comp Metabolic Nge288 B/ C Ratio 34.0 Ratio 04/25/2016 Comp Metabolic Obb223 CA LCIUM 8.7 mg/dL 04/25/2016 Comp Metabolic Lrw908 AL K PHOS 32 U/L 04/25/2016 Comp Metabolic Ocy600 T(SGOT) 23 U/L 04/25/2016 Comp Metabolic Jgm666 AL T(SGPT) 22 U/L 04/25/2016 Comp Metabolic Etx517 BI LI T 0.5 mg/dL 04/25/2016 Comp Metabolic Qqh446 AL BUMIN 3.6 g/dL 04/25/2016 Comp Metabolic Guh303 TP RO 5.5 g/dL 04/25/2016 Comp Metabolic Yur998 GL OB 1.9 g/dL 04/25/2016 Comp Metabolic Xfx808 A/ G Ratio 1.9 Ratio 04/25/2016 Comp Metabolic Okn952 Os mo 282 mOsmo 04/25/2016 Cbc With [...] 29.6 pg 04/25/2016 Cbc With Differential Ord2 [place]% 13.0 % 04/25/2016 Cbc With Differential Ord2 Eos% 2.5 % 04/25/2016 Cbc With Differential Ord2 MCHC 33.3 pg 04/25/2016 Cbc With Differential Ord2 Baso% 0.9 % 04/25/2016 Cbc With Differential Ord2 PLT 252 K/ul 04/25/2016 Cbc With Differential Ord2 Neut ABS# 1.70 K/ul 04/25/2016 Cbc With Differential Ord2 RDW 15.2 % 04/25/2016 Cbc With Differential Ord2 Lymph ABS# 1.01 K/ul 04/25/2016 Cbc With Differential Ord2 [place] ABS# 0.4 K/ul 04/25/2016 Cbc With Differential [...] 54.5 % 04/04/2016 Cbc With Differential Ord2 Lymph% 26.2 % 04/04/2016 Cbc With Differential Ord2 MCV 88.8 fl 04/04/2016 Cbc With Differential Ord2 MCH 29.2 pg 04/04/2016 Cbc With Differential Ord2 [place]% 16.1 % 04/04/2016 Cbc With Differential Ord2 Eos% 3.0 % 04/04/2016 Cbc With Differential Ord2 MCHC 32.9 pg 04/04/2016 Cbc With Differential Ord2 Baso% 0.2 % 04/04/2016 Cbc With Differential Ord2 PLT 235 K/ul 04/04/2016 Cbc With Differential Ord2 Neut ABS# 2.74 K/ul 04/04/2016 Cbc With Differential Ord2 RDW 14.7 % 04/04/2016 Cbc With Differential Ord2 Lymph ABS# 1.32 K/ul 04/04/2016 Cbc With Differential Ord2 [place] ABS# 0.8 K/ul 04/04/2016 Cbc With Differential Ord2 Eos ABS# 0.2 K/ul 04/04/2016 Cbc With Differential Ord2 Baso ABS# 0.0 K/ul 04/04/2016 Urinalysis Ord28 U-Color Yellow 04/04/2016 Urinalysis [...] 48 hours from collection if refrigerated) 04/04/2016 Comp Metabolic Ssq799 NA 140 mEq/L 04/04/2016 Comp Metabolic Ymz776 K 4.1 mEq/L 04/04/2016 Comp Metabolic Gva035 CL 106 mEq/L 04/04/2016 Comp Metabolic Ytf882 CO2 27.0 mEq/L 04/04/2016 Comp Metabolic Uen380 AN ION GAP 11 04/04/2016 Comp Metabolic Imd099 GL UCOSE 71 mg/dL 04/04/2016 Comp Metabolic Dkv923 Cr eat 0.5 mg/dL 04/04/2016 Comp Metabolic Osg765 eG FR 131 ml/min/1.73m2 03/10 Comp Metabolic Jcy145 BUN 14 mg/dL 04/04/2016 Comp Metabolic Cdr062 B/ C Ratio 28.6 Ratio 04/04/2016 Comp Metabolic Ftw555 CA LCIUM 9.1 mg/dL 04/04/2016 Comp Metabolic Zbo841 AL K PHOS 42 U/L 04/04/2016 Comp Metabolic Lan074 T(SGOT) 18 U/L 04/04/2016 Comp Metabolic Knc380 AL T(SGPT) 17 U/L 04/04/2016 Comp Metabolic Rbt584 BI LI T 0.4 mg/dL 04/04/2016 Comp Metabolic Tgx039 AL BUMIN 3.8 g/dL 04/04/2016 Comp Metabolic Xsg734 TP RO 6.0 g/dL 04/04/2016 Comp Metabolic Ksq518 GL OB 2.2 g/dL 04/04/2016 Comp Metabolic Wcm101 A/ G Ratio 1.7 Ratio 04/04/2016 Comp Metabolic Lew685 Os mo 278 mOsmo 04/04/2016 Cbc With Differential Ord2 WBC 3.43 [...] 29.6 pg 03/28/2016 Cbc With Differential Ord2 [place]% 11.7 % 03/28/2016 Cbc With Differential Ord2 MCHC 33.2 pg 03/28/2016 Cbc With Differential Ord2 Eos% 3.8 % 03/28/2016 Cbc With Differential Ord2 Baso% 0.3 % 03/28/2016 Cbc With Differential Ord2 PLT 207 K/ul 03/28/2016 Cbc With Differential Ord2 RDW 14.6 % 03/28/2016 Cbc With Differential Ord2 Neut ABS# 1.75 K/ul 03/28/2016 Cbc With Differential Ord2 Lymph ABS# 1.14 K/ul 03/28/2016 Cbc With Differential Ord2 [place] ABS# 0.4 K/ul 03/28/2016 Cbc With Differential Ord2 Eos ABS# 0.1 K/ul 03/28/2016 Cbc With Differential Ord2 Baso ABS# 0.0 K/ul 03/28/2016 Cbc With Differential Ord2 New Analyzer Notice Please note new ref ranges s tarting 11-21-2015 due to implemntation of new five part differential hematolgy analyzer. 03/28/2016 Comp Metabolic Rht328 NA 137 mEq/L 03/28/2016 Comp Metabolic Nod479 K 3.5 mEq/L 03/28/2016 Comp Metabolic Aed758 CL 105 mEq/L 03/28/2016 Comp Metabolic Yfp291 CO2 27.0 mEq/L 03/28/2016 Comp Metabolic Cuv414 AN ION GAP 9 03/28/2016 Comp Metabolic Ytn233 GL UCOSE 174 mg/dL 03/28/2016 Comp Metabolic Unf163 Cr eat 0.5 mg/dL 03/28/2016 Comp Metabolic Yfb237 eG FR 131 ml/min/1.73m2 03/10 Comp Metabolic Xfj644 BUN 13 mg/dL 03/28/2016 Comp Metabolic Rba799 B/ C Ratio 26.5 Ratio 03/28/2016 Comp Metabolic Hmm990 CA LCIUM 8.7 mg/dL 03/28/2016 Comp Metabolic Uyj586 AL K PHOS 31 U/L 03/28/2016 Comp Metabolic Jda162 T(SGOT) 20 U/L 03/28/2016 Comp Metabolic Xqg874 AL T(SGPT) 19 U/L 03/28/2016 Comp Metabolic Gne594 BI LI T 0.4 mg/dL 03/28/2016 Comp Metabolic Ese081 AL BUMIN 3.5 g/dL 03/28/2016 Comp Metabolic Qmf683 TP RO 5.3 g/dL 03/28/2016 Comp Metabolic Rod481 GL OB 1.8 g/dL 03/28/2016 Comp Metabolic Nel924 A/ G Ratio 2.0 Ratio 03/28/2016 Comp Metabolic Ovl394 Os mo 278 mOsmo 03/28/2016 Urinalysis Ord28 [...] collection if refrigerated) 03/28/2016 Testosterone Free Direct [id number] FREE TESTOSTERONE <0.2 pg/mL 03/13/2016 Estradiol 345158 ESTRADI OL <5.0 pg/mL 03/12/2016 Progesterone Lez566 Prog 0.56 ng/mL 03/10/2016 Homocyst(E)Ine Plasma 102622 HOMOCYSTEINE, TOTAL 10.9 umol/L 01/18/2016 Mthfr 524394 MTHFR C677T: HETEROZYGOUS MUTATION DETECTED 02/2016 Mthfr 838950 MTHFR A1298 C: HETEROZYGOUS MUTATION DETECTED 01/11/2016 Mthfr 197913 INTERPRETAT ION: 01/11/2016 Iodine Serum 530131 IOD INE, SERUM 131.0 ug/L 01/10/2016 Lipid Ord30 CHOL 204 mg/dL 01/07/2016 Lipid Ord30 HDL 86.0 mg/dl 01/07/2016 Lipid Ord30 TRIG 104 mg/dL 01/07/2016 Lipid Ord30 LDL 97 mg/dL 01/07/2016 Lipid Ord30 C/HDL 2.4 Ratio 01/07/2016 Comp Metabolic Ksm900 NA 139 mEq/L 01/07/2016 Comp Metabolic Sur509 K 4.0 mEq/L 01/07/2016 Comp Metabolic Opt206 CL 104 mEq/L 01/07/2016 Comp Metabolic Pie533 CO2 26.0 mEq/L 01/07/2016 Comp Metabolic Fwe085 AN ION GAP 13 01/07/2016 Comp Metabolic Qtg158 GL UCOSE 86 mg/dL 01/07/2016 Comp Metabolic Dce276 Cr eat 0.6 mg/dL 01/07/2016 Comp Metabolic Npv010 eG FR 100 ml/min/1.73m2 12/11 Comp Metabolic Tby042 BUN 18 mg/dL 01/07/2016 Comp Metabolic Pkb396 B/ C Ratio 29.0 Ratio 01/07/2016 Comp Metabolic Ydt703 CA LCIUM 9.4 mg/dL 01/07/2016 Comp Metabolic Pob956 AL K PHOS 40 U/L 01/07/2016 Comp Metabolic Dgq246 T(SGOT) 20 U/L 01/07/2016 Comp Metabolic Gel028 AL T(SGPT) 24 U/L 01/07/2016 Comp Metabolic Fkc624 BI LI T 0.6 mg/dL 01/07/2016 Comp Metabolic Hdk386 AL BUMIN 4.1 g/dL 01/07/2016 Comp Metabolic Wgu899 TP RO 6.4 g/dL 01/07/2016 Comp Metabolic Muh559 GL OB 2.3 g/dL 01/07/2016 Comp Metabolic Bjg595 A/ G Ratio 1.8 Ratio 01/07/2016 Comp Metabolic Fyj291 Os mo 279 mOsmo 01/07/2016 Tsh Ord6 hTSH II 2.11 uIU/mL 01/07/2016 Urine Culture Ucult Comp lete No [...] Ord28 U-Com Culture to follow 11/26/2015 Progesterone Xuk710 Prog >40.00 ng/mL 11/26/2015 Testosterone Free Direct [id number] FREE TESTOSTERONE 0.6 pg/mL 10/01/2015 Estradiol 700025 ESTRADI OL <5.0 pg/mL 09/26/2015 Urinalysis Ord28 [...] Urinalysis Ord28 U-Yeast NEGATIVE 09/25/2015 Comp Metabolic Wiw325 NA 142 mEq/L 09/25/2015 Comp Metabolic Ajv005 K 4.3 mEq/L 09/25/2015 Comp Metabolic Mag629 CL 110 mEq/L 09/25/2015 Comp Metabolic Dig147 CO2 23.0 mEq/L 09/25/2015 Comp Metabolic Lkt120 AN ION GAP 13 09/25/2015 Comp Metabolic Xkk228 GL UCOSE 76 mg/dL 09/25/2015 Comp Metabolic Ols877 Cr eat 0.8 mg/dL 09/25/2015 Comp Metabolic Jax885 eG FR 79 ml/min/1.73m2 09/25 Comp Metabolic Vui293 BUN 17 mg/dL 09/25/2015 Comp Metabolic Rgn149 B/ C Ratio 22.4 Ratio 09/25/2015 Comp Metabolic Plc455 CA LCIUM 9.4 mg/dL 09/25/2015 Comp Metabolic Kxt584 AL K PHOS 45 U/L 09/25/2015 Comp Metabolic Moo974 T(SGOT) 20 U/L 09/25/2015 Comp Metabolic Wey113 AL T(SGPT) 18 U/L 09/25/2015 Comp Metabolic Aei728 BI LI T 0.5 mg/dL 09/25/2015 Comp Metabolic Uvk449 AL BUMIN 4.0 g/dL 09/25/2015 Comp Metabolic Van959 TP RO 6.2 g/dL 09/25/2015 Comp Metabolic Taz309 GL OB 2.2 g/dL 09/25/2015 Comp Metabolic Yfy108 A/ G Ratio 1.8 Ratio 09/25/2015 Comp Metabolic Sge126 Os mo 283 mOsmo 09/25/2015 Progesterone Wjs205 Prog 21.38 ng/mL 09/25/2015 Cbc With Differential Ord2 WBC 5.1 [...] With Differential Ord2 RDW 14.3 % 09/25/2015 Free T4 Ray616 FREE T4 0.78 ng/dL 09/25/2015 Tsh Ord6 hTSH II 4.05 uIU/mL 09/25/2015 Testosterone Free Direct 554077 FREE TESTOSTERONE 1.2 pg/mL 08/31/2015 Estradiol 934869 ESTRADI OL <5.0 pg/mL 08/29/2015 Progesterone Mbv015 Prog 4.37 ng/mL 08/28/2015 Fungal Screen I 192833 * *ASPERGILLUS AB BY ID . 07/23/2015 Fungal Screen I 042283 A SPERGILLUS AB BY ID None Detected 015 Fungal Screen I 891645 * *BLASTOMYCES ANTIBODY BY CF & ID . 07/23/2015 Fungal Screen I 463806 B LASTOMYCES AB,CF <1:8 07/23/2015 Fungal Screen I 043806 B LASTOMYCES AB,ID None Detected 015 Fungal Screen I 143029 * *MAXINE ANTIBODY BY ID . 07/23/2015 Fungal Screen I 934287 C ANDIDA AB BY ID Detected 07/23/2015 Fungal Screen I 135470 * *COCCIDIOIDES ANTIBODIES, IGG & IGM . 07/23/2015 Fungal Screen I 593036 C OCCIDIOIDES AB IGM 0.3 IV 07/23/2015 Fungal Screen I 689906 C OCCIDIOIDES AB IGG 0.4 IV 07/23/2015 Fungal Screen I 037504 * *HISTOPLASMA ANTIBODY BY ID . 07/23/2015 Fungal Screen I 266646 H ISTOPLASMA ABS (ID) None Detected 015 Francisella Tularensis Abs 505252 F. TULARENSIS, IGG 0 U/mL 07/17/2015 Francisella Tularensis Abs 787018 F. TULARENSIS, IGM 0 U/mL 07/17/2015 Vitamin D 25 Oh Rqr5449 VITAMIN D, 25 HYDROXY 142.21 ng/mL 07/13/2015 B12 Qiw656 B12 956.00 pg/ml 07/12/2015 Antistrptolysin-O Qualitative Qpc043 ASO Negative 07/12/2015 Cbc With Differential Ord2 [...] Ord2 RDW 15.1 % 07/10/2015 Free T4 Zcc870 FREE T4 0.79 ng/dL 06/12/2015 Urinalysis Ord28 [...] NEGATIVE 06/04/2015 Urinalysis Ord28 U-Com None 06/04/2015 Magnesium Ord90 Mag 2.2 mg/dL 06/04/2015 Tsh Ord6 hTSH II 5.17 uIU/mL 06/04/2015 Lipid Ord30 CHOL 203 mg/dL 06/04/2015 Lipid Ord30 HDL 78.0 mg/dl 06/04/2015 Lipid Ord30 TRIG 82 mg/dL 06/04/2015 Lipid Ord30 LDL 109 mg/dL 06/04/2015 Lipid Ord30 C/HDL 2.6 Ratio 06/04/2015 Cbc With Differential Ord2 WBC 4.6 [...] Ord2 RDW 16.0 % 06/04/2015 Comp Metabolic Ofu084 NA 139 mEq/L 06/04/2015 Comp Metabolic Dxy515 K 3.9 mEq/L 06/04/2015 Comp Metabolic Hza884 CL 108 mEq/L 06/04/2015 Comp Metabolic Cbq074 CO2 26.0 mEq/L 06/04/2015 Comp Metabolic Hln755 AN ION GAP 9 06/04/2015 Comp Metabolic Gbu893 GL UCOSE 74 mg/dL 06/04/2015 Comp Metabolic Aoy154 Cr eat 0.6 mg/dL 06/04/2015 Comp Metabolic Yyk800 eG FR 102 ml/min/1.73m2 05/10 Comp Metabolic Tum513 BUN 18 mg/dL 06/04/2015 Comp Metabolic Zce168 B/ C Ratio 29.5 Ratio 06/04/2015 Comp Metabolic Wkr228 CA LCIUM 9.0 mg/dL 06/04/2015 Comp Metabolic Rlg015 AL K PHOS 44 U/L 06/04/2015 Comp Metabolic Cgo858 T(SGOT) 22 U/L 06/04/2015 Comp Metabolic Nxn656 AL T(SGPT) 23 U/L 06/04/2015 Comp Metabolic Xlq096 BI LI T 0.4 mg/dL 06/04/2015 Comp Metabolic Xga039 AL BUMIN 4.0 g/dL 06/04/2015 Comp Metabolic Tlf358 TP RO 5.8 g/dL 06/04/2015 Comp Metabolic Lfz010 GL OB 1.8 g/dL 06/04/2015 Comp Metabolic Ura846 A/ G Ratio 2.2 Ratio 06/04/2015 Comp Metabolic Rmi238 Os mo 278 mOsmo 06/04/2015 Review of Systems System Result Effective Dates Constitutional No recent illness 03/19/2017 Constitutional No [...] Procedure Codes Date PPPS, SUBSEQ VISIT CPT-4: A6571Izrhvsx 03/19/2017 PPPS, SUBSEQ VISIT CPT-4: V0510Xjbrziz 03/11/2016 THER/PROPH/DIAG INJ SC/IM CPT-4: 62269Iqftttu 12/27/2015 Vital Signs Date Vital 03/19/2017 Blood Pressure 1: 138/80 Code: 8480-6 BMI: 20.5 Code: 97763-3 Heart Rate 1: 83 bpm Height: 5' SpO2: 97% Waist Measure (cm): 74 cm Weight: 105 lbs 03/18/2017 Blood Pressure 1: 138/80 Code: 8480-6 BMI: 20.5 Code: 97003-1 Heart Rate 1: 83 bpm Height: 5' SpO2: 97% Weight: 105 lbs 01/27/2017 Blood Pressure 1: 142/68 Code: 8480-6 BMI: 20.5 Code: 67249-0 Heart Rate 1: 69 bpm Height: 5' SpO2: 97% Weight: 105 lbs 12/29/2016 Blood Pressure 1: 154/82 Code: 8480-6 BMI: 20.1 Code: 61756-5 Heart Rate 1: 76 bpm Height: 5' SpO2: 94% Temperature: 37.4 (C ) / 99.4 (F) Weight: 103 lbs 11/19/2016 Blood Pressure 1: 134/74 Code: 8480-6 BMI: 19.7 Code: 42731-9 Heart Rate 1: 64 bpm Height: 5' Weight: 101 lbs 08/13/2016 Blood Pressure 1: 118/56 Code: 8480-6 BMI: 19.5 Code: 31892-7 Heart Rate 1: 64 bpm Height: 5' SpO2: 97% Weight: 100 lbs 07/03/2016 Blood Pressure 1: 120/68 Code: 8480-6 BMI: 19.1 Code: 70828-7 Heart Rate 1: 80 bpm Height: 5' SpO2: 98% Weight: 98 lbs 05/07/2016 Blood Pressure 1: 116/58 Code: 8480-6 BMI: 19.1 Code: 27256-5 Heart Rate 1: 79 bpm Height: 5' SpO2: 98% Weight: 98 lbs 04/08/2016 Blood Pressure 1: 118/58 Code: 8480-6 BMI: 19.0 Code: 82552-5 Heart Rate 1: 78 bpm Height: 5' SpO2: 98% Weight: 97 lbs 8 oz 03/11/2016 Blood Pressure 1: 102/60 Code: 8480-6 BMI: 19.7 Code: 20918-4 Heart Rate 1: 75 bpm Height: 5' SpO2: 94% Waist Measure (cm): 71 cm Weight: 101 lbs 12/27/2015 Blood Pressure 1: 128/72 Code: 8480-6 BMI: 20.2 Code: 59131-7 Heart Rate 1: 95 bpm Height: 5' SpO2: 98% Weight: 103 lbs 8 oz 09/24/2015 Blood Pressure 1: 136/70 Code: 8480-6 BMI: 19.1 Code: 40106-7 Heart Rate 1: 72 bpm Height: 5' SpO2: 97% Weight: 98 lbs 06/26/2015 Blood Pressure 1: 144/64 Code: 8480-6 BMI: 18.9 Code: 97082-1 Heart Rate 1: 77 bpm Height: 5' SpO2: 98% Weight: 97 lbs 04/10/2015 Blood Pressure 1: 132/88 Code: 8480-6 BMI: 18.9 Code: 62141-9 Heart Rate 1: 83 bpm Height: 5' SpO2: 97% Weight: 97 lbs Functional Status No Functional Status data History of Present Illness Symptom Name Status Resu lt Effective Date Notes Annual Medicare Wellness Exam Alcohol Use does [...] Encounters Encounter Performer Loca tion Codes Date ([id number]) 59414 EST. P ATIENT, LEVEL IV Diagnosis: Atrophy of thyroid (acquired)[ICD10: E03.4] Diagnosis: Essential (primary) hypertension[ICD10: I10] Diagnosis: Encounter for screening for other musculoskeletal disorder[ICD10: Z13.828] Diagnosis: Low back pain[ICD10: M54.5] Diagnosis: Transient alteration of awareness[ICD10: R40.4] Kailee Moreira MD, C CPT-4: 55551 03/18/2017 ([id number]) 17158 EST. P ATIENT, LEVEL IV Diagnosis: Atrophy of thyroid (acquired)[ICD10: E03.4] Diagnosis: Essential (primary) hypertension[ICD10: I10] Diagnosis: Low back pain[ICD10: M54.5] Kailee Moreira MD, [facility] CPT-4: 47991 01/27/2017 ([id number]) 55251 EST. P ATIENT, LEVEL III Diagnosis: Acute recurrent maxillary sinusitis[ICD10: J01.01] Marixa Moreira MD, [facility] CPT-4: 79392 12/29/2016 ([id number]) 65429 EST. P ATIENT, LEVEL IV Diagnosis: Atrophy of thyroid (acquired)[ICD10: E03.4] Diagnosis: Essential (primary) hypertension[ICD10: I10] Kailee Moreira MD, C CPT-4: 05354 11/19/2016 ([id number]) 69471 EST. P ATIENT, LEVEL IV Diagnosis: Atrophy of thyroid (acquired)[ICD10: E03.4] Diagnosis: Enterocolitis due to Clostridium difficile[ICD10: A04.7] Diagnosis: Essential (primary) hypertension[ICD10: I10] Kailee Moreira MD, C CPT-4: 96787 08/13/2016 ([id number]) 08274 EST. P ATIENT, LEVEL IV Diagnosis: Essential (primary) hypertension[ICD10: I10] Diagnosis: Enterocolitis due to Clostridium difficile[ICD10: A04.7] Diagnosis: Hypothyroidism, unspecified[ICD10: E03.9] Diagnosis: Low back pain[ICD10: M54.5] Kailee Moreira MD, [facility] CPT-4: 80499 07/03/2016 ([id number]) 80133 EST. P ATIENT, LEVEL IV Diagnosis: Enterocolitis due to Clostridium difficile[ICD10: A04.7] Diagnosis: Lyme disease, unspecified[ICD10: A69.20] Kailee Moreira MD, C CPT-4: 59668 05/07/2016 ([id number]) 27730 EST. P ATIENT, LEVEL IV Diagnosis: Generalized abdominal rigidity[ICD10: R19.37] Diagnosis: Diarrhea, unspecified[ICD10: R19.7] Diagnosis: Lyme disease, unspecified[ICD10: A69.20] Kailee Moreira MD, C CPT-4: 72567 04/08/2016 ([id number]) 57864 EST. P ATIENT, LEVEL IV Diagnosis: Hypothyroidism, unspecified[ICD10: E03.9] Diagnosis: Lyme disease, unspecified[ICD10: A69.20] Diagnosis: Tachycardia, unspecified[ICD10: R00.0] Kailee Moreira MD, [facility] CPT-4: 92602 12/27/2015 ([id number]) 86262 EST. P ATIENT, LEVEL III Diagnosis: Essential (primary) hypertension[ICD10: I10] Diagnosis: Benign lipomatous neoplasm of skin and subcutaneous tissue of other sites[ICD10: D17.39] Diagnosis: Low back pain[ICD10: M54.5] Kailee Moreira MD, [facility] CPT-4: 59002 09/24/2015 ([id number]) 38661 EST. 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 2016 [phone] [facility] [facility] - Annual Wellness Visit 03/19/2017 Patient [...] on previous levels of control.physical therapy at [facility] - water therapy for backeeg - needs ordered at hospital. 03/18/2017 Appointment: Kailee Moreira WPtel: [phone] [facility] (15 min) Moderate 03/18/2017 Patient Education: Patient [...] not improve. 01/27/2017 Appointment: [facility] [phone] [facility] (15 min) Moderate 01/27/2017 Patient Education: Patient Medication Summary Completed 01/27/2017 Patient Education: Hypertension Completed 01/27/2017 Visit Plan: Sinusitis - Pt has acute inf ection - pain in face, maxillary region, Pt informed to use decongestant, RX given to patient, sinus rinses also recommended. Call if symptoms do not show improvement. 12/29/2016 Appointment: [facility] [phone] [phone] [place] (30 min) Complex 12/29/2016 Patient Education: [...] of control. 2016 Appointment: Kailee Moreira WPtel: [phone] [facility] (15 min) Moderate 11/19/2016 Patient Education: Patient [...] improved. 08/13/2016 Appointment: Kailee Moreira WPtel: [phone] [facility] (15 min) Moderate 08/13/2016 Patient Education: Patient Medication Summary Completed 08/13/2016 Patient Education: Hypertension Completed 08/13/2016 Appointment: Kailee Moreira WPtel: [phone] [facility] (30 min) Complex 07/31/2016 Visit Plan: Hypertension [...] of control. 07/03/2016 Appointment: Kailee Moreira WPtel: [facility] (15 min) Moderate 07/03/2016 Patient Education: Patient Medication Summary Completed 07/03/2016 Patient Education: Hypertension Completed 07/03/2016 Visit Plan: Cdiff colitis - pt to have r epeat testing - if positive will have to repeat treatment. Continue with probiotic.Lymes disease - continue with treatment per Dr. Carrillo.alex sample x 18 days given to patient. 2015 Appointment: Kailee Moreira WPtel: [phone] [facility] (15 min) Moderate 05/07/2016 Patient Education: Patient Medication Summary Completed 05/07/2016 Visit Plan: Diarrhea - suspect the diarr hea is Cdiff related - check stool and treat with flagyl, probiotic to increase to three times daily - continue to hold iv antibiotic.Lyme disease - treating with iv antibiotics - on hold while she has diarrhea. 04/08/2016 Appointment: Kailee Moreira WPtel: [facility] (15 min) Moderate 04/08/2016 Patient Education: Patient Medication Summary Completed 04/08/2016 Appointment: Kailee Moreira WPtel: [facility] (15 min) Moderate 04/03/2016 Visit Plan: Medicare [...] care surrogate.Lyme disease - sees Dr. Nabor Syed has antibiotic treatment plan, see scanned document. 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 03/11/2016 Patient Education: Patient Medication Summary Completed 03/11/2016 Appointment: Kailee Moreira WPtel: [address] [place], [place] [address] [place] (15 min) Moderate 01/24/2016 Visit Plan: Tachycardia [...] of control. 12/27/2015 Appointment: Kailee Moreira WPtel: [address] [place] [address] [place] (15 min) Moderate 12/27/2015 Patient Education: Patient [...] not improve. 06/26/2015 Appointment: [phone] [facility] ([facility] min) Moderate 06/26/2015 Patient Education: Patient [...] repeat MRI lumbar spine Lymes disease-sees Dr Carrillo-julios specialist in [place], [place] CAD-HX [id number] by Dr Hyde 04/10/2015 Appointment: (S) New Patient 04/10/2015 Patient Education: Patient Medication Summary Completed 04/10/2015 Patient Education: Hypertension Completed 04/10/2015 Instructions Comment . Tachycardia - I mckenna ve attempted [...] spine Lymes disease-sees Dr Carrillo-leilani specialist in [place], [place] CAD-HX [id number] by Dr Hyde . Medicare Exam - to day we [...] pain is worsening or does not improve. DOXYCYCLINE 100MG TW ICE DAILY X 7 DAYS . Sinusitis - Pt has acute infection - p ain in face, maxillary region, Pt informed to use decongestant, RX given to patient, sinus rinses also recommended. Call if symptoms do not show improvement. voltaren gel apply 2 grams to the [...] levels of control. physical therapy at [facility] - water therapy for back eeg - needs ordered at hospital. . Cdiff colitis - pt to have [...] antibiotic treatment plan, see scanned document. . Hypothyroidism - p t with chronic [...] current regimen as symptoms have improved. . Diarrhea - suspect the diarrhea is Cdiff related - check stool and treat with flagyl, probiotic to increase to three times daily - continue to hold iv antibiotic. Lyme disease - treating with iv antibiotics - on hold while she has diarrhea.
--- OUTSIDE RECORDS SUMMARY | 2020-05-05 11:57 | XMS REPORT | CCD ---
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 Administrator Name Role Phone PP Unavailable CCM Unavailable Summary Purpose Interface Exchange Insurance Providers Payer name Policy type / Coverage type Covered democrat ID Effective Begin Date Effective End Date WPS Medicare Part B Medicare Part B [id number] Unknown Unknown [employer] [place] Medicare Part B [id number] Unknown Unknown Family history Mother Diagnosis Age [...] Retir ed 04/10/[address]: 057961445 Never smoker 04/10/[address]: 974638887 Never drinks alcohol 04/10/2015 Allergies, Adverse Reactions, [...] Stop Date Sta tus Fill Instructions Keppra 250 mg tablet RxNorm: 654549 1 Tablet(s) PO daily 04/23/2017 04/26/2017 Active take 1 tab qd x 1 week then increase to BID Keppra 250 mg tablet RxNorm: 204216 1 Tablet(s) PO daily 04/23/2017 04/22/2017 Inactive take 1 tab qd x 1 week then increase to BID cyclobenzaprine 5 mg tablet RxNorm: 471904 1 Tablet(s) PO TID as needed 02/03/2017 02/22/2017 In active cyclobenzaprine 5 mg tablet RxNorm: 628259 1 Tablet(s) PO TID as needed 02/03/2017 02/02/2017 In active [place] Thyroid 90 mg tablet RxNorm: 480948 1/2 Tablet(s) PO daily 11/19/2016 03/18/2017 Inactive amitriptyline 10 mg tablet RxNorm: 570037 1/2 to 1 Tablet(s) PO QPM 11/19/2016 11/13/2017 Active fluconazole 50 mg ta blet RxNorm: 132711 1 Tablet(s) PO daily 08/20/2016 09/02/2016 Inactive [place] Thyroid 90 mg tablet RxNorm: 462019 1/2 Tablet(s) PO daily 08/11/2016 11/18/2016 Inactive Flagyl 500 mg tablet RxNorm: 401191 1 Tablet(s) PO TID 07/28/2016 08/06/2016 Inactive Flagyl 500 mg tablet RxNorm: 047518 1 Tablet(s) PO TID 07/17/2016 07/27/2016 Inactive amitriptyline 10 mg tablet RxNorm: 252555 1/2 to 1 Tablet(s) PO QPM 07/03/2016 10/30/2016 Inactive metronidazole 500 mg tablet RxNorm: 377598 1 Tablet(s) PO QID 07/03/2016 07/12/2016 Inactive amitriptyline 25 mg tablet RxNorm: 513174 1/2 -1 Tablet(s) PO Q HS as needed insomnia 06/26/2016 07/02/2016 Inactive vancomycin 125 mg ca psule RxNorm: 168383 1 Capsule(s) PO QID 06/20/2016 06/29/2016 Inactive [place] Thyroid 30 mg tablet RxNorm: 405710 1.5 Tablet(s) PO daily 06/20/2016 06/19/2016 Inactive [place] Thyroid 30 mg tablet RxNorm: 231945 1.5 Tablet(s) PO daily 06/20/2016 08/10/2016 Inactive fluconazole 50 mg ta blet RxNorm: 235958 1 Tablet(s) PO daily 06/16/2016 08/19/2016 Inactive amitriptyline 25 mg tablet RxNorm: 023714 1/2 -1 Tablet(s) PO Q HS as needed insomnia 06/12/2016 06/11/2016 Inactive amitriptyline 25 mg tablet RxNorm: 036120 1/2 -1 Tablet(s) PO Q HS as needed insomnia 06/12/2016 06/25/2016 Inactive vancomycin 125 mg ca psule RxNorm: 872206 1 Capsule(s) PO QID 06/12/2016 06/19/2016 Inactive fluconazole 50 mg ta blet RxNorm: 880097 1 Tablet(s) PO daily 06/12/2016 06/15/2016 Inactive Deplin (algal oil) 1 5 mg-90.314 mg capsule RxNorm: 1 Capsule(s) PO daily 06/05/2016 05/30/2017 Ac tive Diflucan 150 mg tablet RxNorm: 047483 1 Tablet(s) PO daily 06/05/2016 06/09/2016 Inactive Deplin (algal oil) 1 5 mg-90.314 mg capsule RxNorm: 1 Capsule(s) PO daily 06/05/2016 06/04/2016 In active Diflucan 150 mg tablet RxNorm: 382620 1 Tablet(s) PO daily 06/05/2016 06/04/2016 Inactive nystatin 500,000 uni t tablet RxNorm: 255614 4 Tablet(s) PO daily 05/21/2016 09/17/2016 Inactive Vitamin D3 5,000 uni t tablet RxNorm: 533608 Tablet(s) PO daily 05/07/2016 No Stop Date Active progesterone microni zed 100 mg capsule RxNorm: 231959 3 Capsule(s) PO daily on days 1- 25 of each month 05/07/2016 No Stop Date Active nystatin 500,000 uni t tablet RxNorm: 543924 1 Tablet(s) PO Q4H 05/07/2016 05/20/2016 Inactive fluconazole 100 mg t ablet RxNorm: 065809 1 Tablet(s) PO daily 05/07/2016 06/11/2016 Inactive metronidazole 500 mg tablet RxNorm: 633747 1 Tablet(s) PO TID 04/30/2016 05/09/2016 Inactive metronidazole 500 mg tablet RxNorm: 831133 1 Tablet(s) PO TID 04/30/2016 04/29/2016 Inactive vancomycin 125 mg ca psule RxNorm: 775267 1 Capsule(s) PO QID 04/29/2016 05/08/2016 Inactive vancomycin 125 mg ca psule RxNorm: 369894 1 Capsule(s) PO QID 04/29/2016 04/28/2016 Inactive Flagyl 500 mg tablet RxNorm: 849933 1 Tablet(s) PO TID 04/09/2016 04/08/2016 Inactive Flagyl 500 mg tablet RxNorm: 319039 1 Tablet(s) PO TID 04/09/2016 04/22/2016 Inactive carvedilol 3.125 mg tablet RxNorm: 487516 1 Tablet(s) PO BID 04/08/2016 No Stop Date Active [place] Thyroid 60 mg tablet RxNorm: 129465 Tablet(s) PO 1 Tablet (s) daily 01/31/2016 06/19/2016 In active Pt request 90 day supply 11/23/2015 11:1 1:54 AM [place] Thyroid 30 mg tablet RxNorm: 889188 1 Tablet(s) daily 01/28/2016 01/30/2016 Inactive Pt request 90 day supply 11/23/2015 11:1 1:54 AM [place] Thyroid 30 mg tablet RxNorm: 190380 1 Tablet(s) daily 01/21/2016 01/27/2016 Inactive Pt request 90 day supply 11/23/2015 11:1 1:54 AM [place] Thyroid 30 mg tablet RxNorm: 686333 Tablet(s) TAKE ONE AN D ONE-HALF (45 MG) TABLET BY MOUTH EVERY DAY 01/02/2016 01/20/2016 Inactive Pt request 90 day supply 11/23/2015 11:11:54 AM Xylocaine 20 mg/mL ( 2 %) injection solution RxNorm: 2866994 2.5 Milliliter(s) In j BID with cefepime 12/27/2015 01/25/2016 Inactive cefepime 1 gram solu tion for injection RxNorm: 9167658 Inj 12/1012/27/2015 Inactive [place] Thyroid 30 mg tablet RxNorm: 837333 TAKE ONE TABLET BY MO UTH EVERY DAY 11/23/2015 01/01/2016 In active Pt request day supply 11/23/2015 11:1 1:54 AM Voltaren 1 % topical gel RxNorm: 537486 2 Gram(s) TOP QID 09/24/2015 12/26/2015 Inactive cyclobenzaprine 10 m g tablet RxNorm: 183447 1 Tablet(s) PO Q6 as needed 08/27/2015 05/06/2016 In active [place] Thyroid 30 mg tablet RxNorm: 268356 1 Tablet(s) PO daily 06/21/2015 06/20/2015 Inactive [place] Thyroid 30 mg tablet RxNorm: 031997 1 Tablet(s) PO daily 06/21/2015 11/22/2015 Inactive Synthroid 25 mcg tablet RxNorm: 092471 1 Tablet(s) PO daily 06/07/2015 06/06/2015 Inactive KASEY-1 Synthroid 25 mcg tablet RxNorm: 869021 1 Tablet(s) PO daily 06/07/2015 06/20/2015 Inactive KASEY-1 ofloxacin 0.3 % ear drops RxNorm: 530871 1-2 Drop(s) OTIC OU Q 4H as needed No Start Date Active Aspirin Low Dose 81 mg tablet,delayed release RxNorm: 104357 1 Tablet(s) PO daily No Start Date Active tyrosine (bulk) powder RxNorm: 1 Miscellaneous dash every am No Start Date Active lisinopril 5 mg tablet RxNorm: 473022 1 Tablet(s) PO daily No Start Date Active arginine (L-arginine ) oral RxNorm: 1091 oral No Sta rt Date Active glutathione RxNorm: 4890 miscellaneous No Start Date Active Plaquenil 200 mg tablet RxNorm: 052063 1 Tablet(s) PO BID No Start Date 05/19/2016 Inactive fluconazole 100 mg t ablet RxNorm: 938536 1/2 Tablet(s) PO daily No Start Date 05/06/2016 Inactive fluconazole 150 mg t ablet RxNorm: 847745 1 Tablet(s) PO QW x4 No Start Date 12/26/2015 Inactive progesterone microni zed 100 mg capsule RxNorm: 051656 2 Capsule(s) PO daily No Start Date 05/06/2016 Inactive nystatin 500,000 uni t tablet RxNorm: 014889 1 Tablet(s) PO QID No Start Date 05/06/2016 Inactive cyclobenzaprine 10 m g tablet RxNorm: 569191 1 Tablet(s) PO Q6 as needed No Start Date 08/26/2015 Inactive vitamin K oral RxNorm: 8308 oral No Start Date 12/26/2015 Inactive carvedilol 3.125 mg tablet RxNorm: 673438 1 Tablet(s) PO daily No Start Date 04/07/2016 Inactive azithromycin 250 mg tablet RxNorm: 003638 1 Tablet(s) PO daily will incrase to 2 per day No Start Date 12/26/2015 Inactive Probiotic 4X oral RxNorm: 1090484 oral No Start Date 01/07/2016 Inactive Vitamin D3 1,000 uni t tablet RxNorm: 154266 Tablet(s) PO daily No Start Date 05/06/2016 Inactive progesterone microni zed 100 mg capsule RxNorm: 584099 3 Capsule(s) PO daily rx from [facility] No Start Date 12/26/2015 Inactive lorazepam 0.5 mg tablet RxNorm: 836654 1/2-1 Tablet(s) PO daily as needed No Start Date 03/10/2016 Inactive Multiple Vitamin oral RxNorm: 22655 oral No Start Date 05/06/2016 Inactive Medication Administered Medication Codes Instruc tions Start Date Status cefepime 1 gram solution for injection RxNorm: 3932621 12/27/2015 No longer A ctive Immunizations No Immunization data Assessments Condition Codes Effectiv e Dates Encounter for general adult medical exam ination with abnormal findings ICD-10: Z00.01 ICD-9: V70.0 03/19/2017 Essential (primary) hypertension ICD -10: I10 ICD-9: 401.9 03/18/2017 Low back pain ICD-10: M54.5 ICD-9: 724.2 03/18/2017 Transient alteration of awareness IC D-10: R40.4 ICD-9: 780.02 03/18/2017 Atrophy of thyroid (acquired) ICD-10 : E03.4 ICD-9: 244.8 03/18/2017 Encounter for screening for other musculoskeletal [...] 92.3 fl 11/20/2016 Cbc With Differential Ord2 [place]% 10.8 % 11/20/2016 Cbc With Differential Ord2 MCH 30.5 pg 11/20/2016 Cbc With Differential Ord2 Eos% 5.4 % 11/20/2016 Cbc With Differential Ord2 MCHC 33.1 pg 11/20/2016 Cbc With Differential Ord2 PLT 243 K/ul 11/20/2016 Cbc With Differential Ord2 Baso% 0.4 % 11/20/2016 Cbc With Differential Ord2 Neut ABS# 2.10 K/ul 11/20/2016 Cbc With Differential Ord2 RDW 14.6 % 11/20/2016 Cbc With Differential Ord2 Lymph ABS# 1.62 K/ul 11/20/2016 Cbc With Differential Ord2 [place] ABS# 0.5 K/ul 11/20/2016 Cbc With Differential Ord2 Eos ABS# 0.2 K/ul 11/20/2016 Cbc With Differential Ord2 Baso ABS# 0.0 K/ul 11/20/2016 Free T4 Hde206 FREE T4 0.80 ng/dL 11/20/2016 Tsh Ord6 hTSH II 1.35 uIU/mL 11/20/2016 Comp Metabolic Hft678 NA 139 mEq/L 11/20/2016 Comp Metabolic Bop675 K 3.9 mEq/L 11/20/2016 Comp Metabolic Huv955 CL 103 mEq/L 11/20/2016 Comp Metabolic Zhk349 CO2 30.0 mEq/L 11/20/2016 Comp Metabolic Zqq728 AN ION GAP 10 11/20/2016 Comp Metabolic Nmh111 GL UCOSE 85 mg/dL 11/20/2016 Comp Metabolic Bly238 Cr eat 0.7 mg/dL 11/20/2016 Comp Metabolic Pxe668 eG FR 93 ml/min/1.73m2 11/20 Comp Metabolic Saq748 BUN 12 mg/dL 11/20/2016 Comp Metabolic Efj733 B/ C Ratio 18.2 Ratio 11/20/2016 Comp Metabolic Umy578 CA LCIUM 9.1 mg/dL 11/20/2016 Comp Metabolic Bfa043 AL K PHOS 34 U/L 11/20/2016 Comp Metabolic Yen879 T(SGOT) 18 U/L 11/20/2016 Comp Metabolic Jzr151 AL T(SGPT) 14 U/L 11/20/2016 Comp Metabolic Lht151 BI LI T 0.5 mg/dL 11/20/2016 Comp Metabolic Hhq564 AL BUMIN 4.2 g/dL 11/20/2016 Comp Metabolic Uws398 TP RO 6.3 g/dL 11/20/2016 Comp Metabolic Yek656 GL OB 2.1 g/dL 11/20/2016 Comp Metabolic Jtl210 A/ G Ratio 2.0 Ratio 11/20/2016 Comp Metabolic Ktk945 Os mo 277 mOsmo 11/20/2016 Lipid Ord30 CHOL 189 mg/dL 11/20/2016 Lipid Ord30 HDL 81.0 mg/dl 11/20/2016 Lipid Ord30 TRIG 77 mg/dL 11/20/2016 Lipid Ord30 LDL 93 mg/dL 11/20/2016 Lipid Ord30 C/HDL 2.3 Ratio 11/20/2016 Testosterone Free Direct [id number] FREE TESTOSTERONE 0.7 pg/mL 10/06/2016 Estradiol 067753 ESTRADI OL 5.9 pg/mL 10/03/2016 Cortisol 859996 CORTISOL 23 ug/dL 10/03/2016 Progesterone Lqo754 Prog 17.38 ng/mL 10/01/2016 Free T4 Ejy681 FREE T4 0.66 ng/dL 08/13/2016 Tsh Ord6 hTSH II 0.99 uIU/mL 08/13/2016 Testosterone Free Direct 045212 FREE TESTOSTERONE <0.2 pg/mL 07/05/2016 Estradiol 628285 ESTRADI OL <5.0 pg/mL 07/03/2016 Progesterone Ssm402 Prog 23.37 ng/mL 07/02/2016 Tsh Ord6 hTSH II 0.24 uIU/mL 06/17/2016 Free T4 Pqd839 FREE T4 0.86 ng/dL 06/17/2016 Estradiol 166691 ESTRADI OL <5.0 pg/mL 05/21/2016 Comp Metabolic Vzc709 NA 140 mEq/L 05/20/2016 Comp Metabolic Wmz048 K 4.1 mEq/L 05/20/2016 Comp Metabolic Xwh770 CL 106 mEq/L 05/20/2016 Comp Metabolic Huv236 CO2 26.0 mEq/L 05/20/2016 Comp Metabolic Vke441 AN ION GAP 12 05/20/2016 Comp Metabolic Rab881 GL UCOSE 81 mg/dL 05/20/2016 Comp Metabolic Gcg139 Cr eat 0.5 mg/dL 05/20/2016 Comp Metabolic Zbh891 eG FR 119 ml/min/1.73m2 05/09 Comp Metabolic Sqd606 BUN 15 mg/dL 05/20/2016 Comp Metabolic Zfa661 B/ C Ratio 28.3 Ratio 05/20/2016 Comp Metabolic Lpr629 CA LCIUM 8.9 mg/dL 05/20/2016 Comp Metabolic Jfy943 AL K PHOS 36 U/L 05/20/2016 Comp Metabolic Svj768 T(SGOT) 25 U/L 05/20/2016 Comp Metabolic Ofv616 AL T(SGPT) 23 U/L 05/20/2016 Comp Metabolic Dqc473 BI LI T 0.4 mg/dL 05/20/2016 Comp Metabolic Vtb861 AL BUMIN 3.7 g/dL 05/20/2016 Comp Metabolic Itg889 TP RO 5.9 g/dL 05/20/2016 Comp Metabolic Zqd812 GL OB 2.2 g/dL 05/20/2016 Comp Metabolic Thq070 A/ G Ratio 1.7 Ratio 05/20/2016 Comp Metabolic Kxs157 Os mo 279 mOsmo 05/20/2016 Progesterone Msd297 Prog 8.44 ng/mL 05/20/2016 Cbc With Differential Ord2 WBC 4.63 K/ul 05/20/2016 Cbc With Differential Ord2 RBC 4.30 M/ul 05/20/2016 Cbc With Differential Ord2 HGB 13.0 g/dl 05/20/2016 Cbc With Differential Ord2 Neut% 64.7 % 05/20/2016 Cbc With Differential Ord2 HCT 38.6 % 05/20/2016 Cbc With Differential Ord2 Lymph% 18.4 % 05/20/2016 Cbc With Differential Ord2 MCV 89.8 fl 05/20/2016 Cbc With Differential Ord2 [place]% 13.0 % 05/20/2016 Cbc With Differential Ord2 [...] 0.85 K/ul 05/20/2016 Cbc With Differential Ord2 [place] ABS# 0.6 K/ul 05/20/2016 Cbc With Differential [...] U-VOL VOLUME SUFFICIENT (10mL) 05/20/2016 Urinalysis Ord28 U-Com Urine saved if culture needed (specimen acceptable for 48 hours from collection if refrigerated) 05/20/2016 Urinalysis Ord28 U-Yeast NEGATIVE 05/20/2016 Testosterone Free Direct 780015 FREE TESTOSTERONE 0.6 pg/mL 05/19/2016 Estradiol 434461 ESTRADI OL <5.0 pg/mL 05/16/2016 Comp Metabolic Teq582 NA 140 mEq/L 05/15/2016 Comp Metabolic Alr941 K 3.8 mEq/L 05/15/2016 Comp Metabolic Evw436 CL 106 mEq/L 05/15/2016 Comp Metabolic Nnr737 CO2 26.0 mEq/L 05/15/2016 Comp Metabolic Axs752 AN ION GAP 12 05/15/2016 Comp Metabolic Opz973 GL UCOSE 77 mg/dL 05/15/2016 Comp Metabolic Whl120 Cr eat 0.5 mg/dL 05/15/2016 Comp Metabolic Kwd210 eG FR 144 ml/min/1.73m2 05/2016 Comp Metabolic Gwc615 BUN 18 mg/dL 05/15/2016 Comp Metabolic Qkl016 B/ C Ratio 40.0 Ratio 05/15/2016 Comp Metabolic Wpr200 CA LCIUM 8.8 mg/dL 05/15/2016 Comp Metabolic Qdu288 AL K PHOS 28 U/L 05/15/2016 Comp Metabolic Xiz746 T(SGOT) 19 U/L 05/15/2016 Comp Metabolic Ecd284 AL T(SGPT) 19 U/L 05/15/2016 Comp Metabolic Lqx594 BI LI T 0.5 mg/dL 05/15/2016 Comp Metabolic Kjc165 AL BUMIN 3.6 g/dL 05/15/2016 Comp Metabolic Bbn287 TP RO 5.6 g/dL 05/15/2016 Comp Metabolic Ppm926 GL OB 2.0 g/dL 05/15/2016 Comp Metabolic Qec607 A/ G Ratio 1.8 Ratio 05/15/2016 Comp Metabolic Tyv873 Os mo 280 mOsmo 05/15/2016 Progesterone Zte217 Prog 9.08 ng/mL 05/15/2016 Cbc With Differential [...] 31.8 % 05/15/2016 Cbc With Differential Ord2 [place]% 14.1 % 05/15/2016 Cbc With Differential Ord2 [...] 1.42 K/ul 05/15/2016 Cbc With Differential Ord2 [place] ABS# 0.6 K/ul 05/15/2016 Cbc With Differential [...] Ord28 U-Com None 05/15/2016 Testosterone Free Direct 350718 FREE TESTOSTERONE 0.2 pg/mL 05/09/2016 Estradiol 818782 ESTRADI OL <5.0 pg/mL 05/07/2016 Comp Metabolic Aaq080 NA 141 mEq/L 05/06/2016 Comp Metabolic Ykf053 K 3.6 mEq/L 05/06/2016 Comp Metabolic Csk675 CL 107 mEq/L 05/06/2016 Comp Metabolic Trt687 CO2 28.0 mEq/L 05/06/2016 Comp Metabolic Hkt344 AN ION GAP 10 05/06/2016 Comp Metabolic Qqq889 GL UCOSE 138 mg/dL 05/06/2016 Comp Metabolic Cxs248 Cr eat 0.5 mg/dL 05/06/2016 Comp Metabolic Aze462 eG FR 119 ml/min/1.73m2 04/10 Comp Metabolic Dmy698 BUN 16 mg/dL 05/06/2016 Comp Metabolic Zxl928 B/ C Ratio 30.2 Ratio 05/06/2016 Comp Metabolic Eam151 CA LCIUM 8.9 mg/dL 05/06/2016 Comp Metabolic Pdj628 AL K PHOS 29 U/L 05/06/2016 Comp Metabolic Jfi211 T(SGOT) 20 U/L 05/06/2016 Comp Metabolic Wjx043 AL T(SGPT) 21 U/L 05/06/2016 Comp Metabolic Mnl327 BI LI T 0.4 mg/dL 05/06/2016 Comp Metabolic Bwb319 AL BUMIN 3.6 g/dL 05/06/2016 Comp Metabolic Qly691 TP RO 5.5 g/dL 05/06/2016 Comp Metabolic Dod412 GL OB 1.9 g/dL 05/06/2016 Comp Metabolic Wjx585 A/ G Ratio 1.9 Ratio 05/06/2016 Comp Metabolic Vea066 Os mo 285 mOsmo 05/06/2016 Urinalysis Ord28 [...] hours from collection if refrigerated) 05/06/2016 Progesterone Zco406 Prog 0.98 ng/mL 05/06/2016 Cbc With Differential [...] 29.9 % 05/06/2016 Cbc With Differential Ord2 [place]% 10.1 % 05/06/2016 Cbc With Differential Ord2 MCH 29.2 pg 05/06/2016 Cbc With Differential Ord2 Eos% 3.9 % 05/06/2016 Cbc With Differential Ord2 MCHC 32.4 pg 05/06/2016 Cbc With Differential Ord2 PLT 255 K/ul 05/06/2016 Cbc With Differential Ord2 Baso% 0.8 % 05/06/2016 Cbc With Differential Ord2 RDW 15.7 % 05/06/2016 Cbc With Differential Ord2 Neut ABS# 2.15 K/ul 05/06/2016 Cbc With Differential Ord2 Lymph ABS# 1.16 K/ul 05/06/2016 Cbc With Differential Ord2 [place] ABS# 0.4 K/ul 05/06/2016 Cbc With Differential [...] 29.6 pg 04/29/2016 Cbc With Differential Ord2 [place]% 13.1 % 04/29/2016 Cbc With Differential Ord2 [...] 1.42 K/ul 04/29/2016 Cbc With Differential Ord2 [place] ABS# 0.5 K/ul 04/29/2016 Cbc With Differential Ord2 Eos ABS# 0.2 K/ul 04/29/2016 Cbc With Differential Ord2 Baso ABS# 0.0 K/ul 04/29/2016 Comp Metabolic Gve499 NA 141 mEq/L 04/29/2016 Comp Metabolic Nub526 K 4.0 mEq/L 04/29/2016 Comp Metabolic Klm082 CL 108 mEq/L 04/29/2016 Comp Metabolic Fzx279 CO2 27.0 mEq/L 04/29/2016 Comp Metabolic Zer668 AN ION GAP 10 04/29/2016 Comp Metabolic Lpf727 GL UCOSE 69 mg/dL 04/29/2016 Comp Metabolic Zjj619 Cr eat 0.5 mg/dL 04/29/2016 Comp Metabolic Ggo797 eG FR 122 ml/min/1.73m2 04/10 Comp Metabolic Nnf952 BUN 19 mg/dL 04/29/2016 Comp Metabolic Pok480 B/ C Ratio 36.5 Ratio 04/29/2016 Comp Metabolic Ulp574 CA LCIUM 9.1 mg/dL 04/29/2016 Comp Metabolic Qgh233 AL K PHOS 31 U/L 04/29/2016 Comp Metabolic Vgk125 T(SGOT) 20 U/L 04/29/2016 Comp Metabolic Mqu193 AL T(SGPT) 22 U/L 04/29/2016 Comp Metabolic Igs623 BI LI T 0.6 mg/dL 04/29/2016 Comp Metabolic Ihc781 AL BUMIN 3.8 g/dL 04/29/2016 Comp Metabolic Yft279 TP RO 5.9 g/dL 04/29/2016 Comp Metabolic Aia090 GL OB 2.1 g/dL 04/29/2016 Comp Metabolic Oap877 A/ G Ratio 1.8 Ratio 04/29/2016 Comp Metabolic Epi907 Os mo 282 mOsmo 04/29/2016 Progesterone Blg579 Prog 5.99 ng/mL 04/29/2016 Urinalysis Ord28 U-Color [...] U-VOL VOLUME SUFFICIENT (10mL) 04/25/2016 Urinalysis Ord28 U-Com Urine saved if culture needed (specimen acceptable for 48 hours from collection if refrigerated) 04/25/2016 Urinalysis Ord28 U-Yeast NEGATIVE 04/25/2016 Comp Metabolic Hii970 NA 138 mEq/L 04/25/2016 Comp Metabolic Qbw681 K 3.6 mEq/L 04/25/2016 Comp Metabolic Sip521 CL 105 mEq/L 04/25/2016 Comp Metabolic Pft565 CO2 27.0 mEq/L 04/25/2016 Comp Metabolic Zpv131 AN ION GAP 10 04/25/2016 Comp Metabolic Fwp699 GL UCOSE 190 mg/dL 04/25/2016 Comp Metabolic Cim461 Cr eat 0.5 mg/dL 04/25/2016 Comp Metabolic Bgp590 eG FR 128 ml/min/1.73m2 04/09 Comp Metabolic Svz386 BUN 17 mg/dL 04/25/2016 Comp Metabolic Hmw164 B/ C Ratio 34.0 Ratio 04/25/2016 Comp Metabolic Wyk114 CA LCIUM 8.7 mg/dL 04/25/2016 Comp Metabolic Qeg417 AL K PHOS 32 U/L 04/25/2016 Comp Metabolic Zfl397 T(SGOT) 23 U/L 04/25/2016 Comp Metabolic Mlv215 AL T(SGPT) 22 U/L 04/25/2016 Comp Metabolic Mkg498 BI LI T 0.5 mg/dL 04/25/2016 Comp Metabolic Ivv653 AL BUMIN 3.6 g/dL 04/25/2016 Comp Metabolic Twq043 TP RO 5.5 g/dL 04/25/2016 Comp Metabolic Hkg853 GL OB 1.9 g/dL 04/25/2016 Comp Metabolic Ytq244 A/ G Ratio 1.9 Ratio 04/25/2016 Comp Metabolic Tbp755 Os mo 282 mOsmo 04/25/2016 Cbc With Differential Ord2 WBC 3.24 K/ul 04/25/2016 Cbc With Differential Ord2 RBC 4.06 M/ul 04/25/2016 Cbc With Differential Ord2 HGB 12.0 g/dl 04/25/2016 Cbc With Differential Ord2 Neut% 52.4 % 04/25/2016 Cbc With Differential Ord2 HCT 36.0 % 04/25/2016 Cbc With Differential Ord2 Lymph% 31.2 % 04/25/2016 Cbc With Differential Ord2 MCV 88.7 fl 04/25/2016 Cbc With Differential Ord2 MCH 29.6 pg 04/25/2016 Cbc With Differential Ord2 [place]% 13.0 % 04/25/2016 Cbc With Differential Ord2 MCHC 33.3 pg 04/25/2016 Cbc With Differential Ord2 Eos% 2.5 % 04/25/2016 Cbc With Differential Ord2 Baso% 0.9 % 04/25/2016 Cbc With Differential Ord2 PLT 252 K/ul 04/25/2016 Cbc With Differential Ord2 RDW 15.2 % 04/25/2016 Cbc With Differential Ord2 Neut ABS# 1.70 K/ul 04/25/2016 Cbc With Differential Ord2 Lymph ABS# 1.01 K/ul 04/25/2016 Cbc With Differential Ord2 [place] ABS# 0.4 K/ul 04/25/2016 Cbc With Differential [...] 88.8 fl 04/04/2016 Cbc With Differential Ord2 [place]% 16.1 % 04/04/2016 Cbc With Differential Ord2 MCH 29.2 pg 04/04/2016 Cbc With Differential Ord2 MCHC 32.9 pg 04/04/2016 Cbc With Differential Ord2 Eos% 3.0 % 04/04/2016 Cbc With Differential Ord2 PLT 235 K/ul 04/04/2016 Cbc With Differential Ord2 Baso% 0.2 % 04/04/2016 Cbc With Differential Ord2 Neut ABS# 2.74 K/ul 04/04/2016 Cbc With Differential Ord2 RDW 14.7 % 04/04/2016 Cbc With Differential Ord2 Lymph ABS# 1.32 K/ul 04/04/2016 Cbc With Differential Ord2 [place] ABS# 0.8 K/ul 04/04/2016 Cbc With Differential Ord2 Eos ABS# 0.2 K/ul 04/04/2016 Cbc With Differential Ord2 Baso ABS# 0.0 K/ul 04/04/2016 Comp Metabolic Myc609 NA 140 mEq/L 04/04/2016 Comp Metabolic Ouy810 K 4.1 mEq/L 04/04/2016 Comp Metabolic Pob408 CL 106 mEq/L 04/04/2016 Comp Metabolic Hbc040 CO2 27.0 mEq/L 04/04/2016 Comp Metabolic Jni733 AN ION GAP 11 04/04/2016 Comp Metabolic Yer478 GL UCOSE 71 mg/dL 04/04/2016 Comp Metabolic Gix706 Cr eat 0.5 mg/dL 04/04/2016 Comp Metabolic Gzd850 eG FR 131 ml/min/1.73m2 03/10 Comp Metabolic Hol393 BUN 14 mg/dL 04/04/2016 Comp Metabolic Jtk355 B/ C Ratio 28.6 Ratio 04/04/2016 Comp Metabolic Gsv281 CA LCIUM 9.1 mg/dL 04/04/2016 Comp Metabolic Mmf458 AL K PHOS 42 U/L 04/04/2016 Comp Metabolic Qay512 T(SGOT) 18 U/L 04/04/2016 Comp Metabolic Clq091 AL T(SGPT) 17 U/L 04/04/2016 Comp Metabolic Zbt924 BI LI T 0.4 mg/dL 04/04/2016 Comp Metabolic Rak590 AL BUMIN 3.8 g/dL 04/04/2016 Comp Metabolic Oul445 TP RO 6.0 g/dL 04/04/2016 Comp Metabolic Qpx153 GL OB 2.2 g/dL 04/04/2016 Comp Metabolic Myg204 A/ G Ratio 1.7 Ratio 04/04/2016 Comp Metabolic Gzu910 Os mo 278 mOsmo 04/04/2016 Urinalysis Ord28 [...] 33.2 % 03/28/2016 Cbc With Differential Ord2 [place]% 11.7 % 03/28/2016 Cbc With Differential Ord2 [...] 1.14 K/ul 03/28/2016 Cbc With Differential Ord2 [place] ABS# 0.4 K/ul 03/28/2016 Cbc With Differential Ord2 Eos ABS# 0.1 K/ul 03/28/2016 Cbc With Differential Ord2 Baso ABS# 0.0 K/ul 03/28/2016 Cbc With Differential Ord2 New Analyzer Notice Please note new ref ranges s tarting 11-21-2015 due to implemntation of new five part differential hematolgy analyzer. 03/28/2016 Comp Metabolic Eis296 NA 137 mEq/L 03/28/2016 Comp Metabolic Rhx373 K 3.5 mEq/L 03/28/2016 Comp Metabolic Nbv288 CL 105 mEq/L 03/28/2016 Comp Metabolic Kid640 CO2 27.0 mEq/L 03/28/2016 Comp Metabolic Tre954 AN ION GAP 9 03/28/2016 Comp Metabolic Prm770 GL UCOSE 174 mg/dL 03/28/2016 Comp Metabolic Ekj149 Cr eat 0.5 mg/dL 03/28/2016 Comp Metabolic Rlv895 eG FR 131 ml/min/1.73m2 03/10 Comp Metabolic Bxy245 BUN 13 mg/dL 03/28/2016 Comp Metabolic Iwi533 B/ C Ratio 26.5 Ratio 03/28/2016 Comp Metabolic Kxy792 CA LCIUM 8.7 mg/dL 03/28/2016 Comp Metabolic Xsm007 AL K PHOS 31 U/L 03/28/2016 Comp Metabolic Gkf814 T(SGOT) 20 U/L 03/28/2016 Comp Metabolic Vss741 AL T(SGPT) 19 U/L 03/28/2016 Comp Metabolic Eyg337 BI LI T 0.4 mg/dL 03/28/2016 Comp Metabolic Ibc530 AL BUMIN 3.5 g/dL 03/28/2016 Comp Metabolic Qvg800 TP RO 5.3 g/dL 03/28/2016 Comp Metabolic Coh457 GL OB 1.8 g/dL 03/28/2016 Comp Metabolic Yuh550 A/ G Ratio 2.0 Ratio 03/28/2016 Comp Metabolic Ukc484 Os mo 278 mOsmo 03/28/2016 Urinalysis Ord28 [...] Ord28 U-Yeast NEGATIVE 03/28/2016 Testosterone Free Direct 193124 FREE TESTOSTERONE <0.2 pg/mL 03/13/2016 Estradiol 353368 ESTRADI OL <5.0 pg/mL 03/12/2016 Progesterone Xfx968 Prog 0.56 ng/mL 03/10/2016 Homocyst(E)Ine Plasma 573186 HOMOCYSTEINE, TOTAL 10.9 umol/L 01/18/2016 Mthfr 061429 MTHFR C677T: HETEROZYGOUS MUTATION DETECTED 02/2016 Mthfr 683154 MTHFR A1298 C: HETEROZYGOUS MUTATION DETECTED 01/11/2016 Mthfr 932176 INTERPRETAT ION: 01/11/2016 Iodine Serum 353604 IOD INE, SERUM 131.0 ug/L 01/10/2016 Lipid Ord30 CHOL 204 mg/dL 01/07/2016 Lipid Ord30 HDL 86.0 mg/dl 01/07/2016 Lipid Ord30 TRIG 104 mg/dL 01/07/2016 Lipid Ord30 LDL 97 mg/dL 01/07/2016 Lipid Ord30 C/HDL 2.4 Ratio 01/07/2016 Comp Metabolic Akh451 NA 139 mEq/L 01/07/2016 Comp Metabolic Uug708 K 4.0 mEq/L 01/07/2016 Comp Metabolic Cia039 CL 104 mEq/L 01/07/2016 Comp Metabolic Mup307 CO2 26.0 mEq/L 01/07/2016 Comp Metabolic Jfn042 AN ION GAP 13 01/07/2016 Comp Metabolic Kjg943 GL UCOSE 86 mg/dL 01/07/2016 Comp Metabolic Roh423 Cr eat 0.6 mg/dL 01/07/2016 Comp Metabolic Wqa356 eG FR 100 ml/min/1.73m2 12/11 Comp Metabolic Fuj079 BUN 18 mg/dL 01/07/2016 Comp Metabolic Fbf608 B/ C Ratio 29.0 Ratio 01/07/2016 Comp Metabolic Sye804 CA LCIUM 9.4 mg/dL 01/07/2016 Comp Metabolic Jrm848 AL K PHOS 40 U/L 01/07/2016 Comp Metabolic Peo539 T(SGOT) 20 U/L 01/07/2016 Comp Metabolic Lka638 AL T(SGPT) 24 U/L 01/07/2016 Comp Metabolic Fep285 BI LI T 0.6 mg/dL 01/07/2016 Comp Metabolic Qfa056 AL BUMIN 4.1 g/dL 01/07/2016 Comp Metabolic Gai586 TP RO 6.4 g/dL 01/07/2016 Comp Metabolic Gqb040 GL OB 2.3 g/dL 01/07/2016 Comp Metabolic Wke342 A/ G Ratio 1.8 Ratio 01/07/2016 Comp Metabolic Yos279 Os mo 279 mOsmo 01/07/2016 Tsh Ord6 [...] U-VOL VOLUME SUFFICIENT (10mL) 11/26/2015 Urinalysis Ord28 U-Com Culture to follow 11/26/2015 Urinalysis Ord28 U-Yeast NEGATIVE 11/26/2015 Progesterone Nks521 Prog >40.00 ng/mL 11/26/2015 Testosterone Free Direct 615101 FREE TESTOSTERONE 0.6 pg/mL 10/01/2015 Estradiol 898131 ESTRADI OL <5.0 pg/mL 09/26/2015 Urinalysis Ord28 [...] from collection if refrigerated) 09/25/2015 Comp Metabolic Cqu291 NA 142 mEq/L 09/25/2015 Comp Metabolic Vdo473 K 4.3 mEq/L 09/25/2015 Comp Metabolic Wqr238 CL 110 mEq/L 09/25/2015 Comp Metabolic Sxl387 CO2 23.0 mEq/L 09/25/2015 Comp Metabolic Fpk264 AN ION GAP 13 09/25/2015 Comp Metabolic Jdu860 GL UCOSE 76 mg/dL 09/25/2015 Comp Metabolic Lyc951 Cr eat 0.8 mg/dL 09/25/2015 Comp Metabolic Xir216 eG FR 79 ml/min/1.73m2 09/25 Comp Metabolic Emj189 BUN 17 mg/dL 09/25/2015 Comp Metabolic Bhd564 B/ C Ratio 22.4 Ratio 09/25/2015 Comp Metabolic Isz537 CA LCIUM 9.4 mg/dL 09/25/2015 Comp Metabolic Yvf956 AL K PHOS 45 U/L 09/25/2015 Comp Metabolic Lcu046 T(SGOT) 20 U/L 09/25/2015 Comp Metabolic Loj895 AL T(SGPT) 18 U/L 09/25/2015 Comp Metabolic Kbl444 BI LI T 0.5 mg/dL 09/25/2015 Comp Metabolic Ecp854 AL BUMIN 4.0 g/dL 09/25/2015 Comp Metabolic Dgl910 TP RO 6.2 g/dL 09/25/2015 Comp Metabolic Yss713 GL OB 2.2 g/dL 09/25/2015 Comp Metabolic Vwr970 A/ G Ratio 1.8 Ratio 09/25/2015 Comp Metabolic Ssa783 Os mo 283 mOsmo 09/25/2015 Tsh Ord6 hTSH II 4.05 uIU/mL 09/25/2015 Progesterone Dvw069 Prog 21.38 ng/mL 09/25/2015 Free T4 Tbz716 FREE T4 0.78 ng/dL 09/25/2015 Cbc With [...] RDW 14.3 % 09/25/2015 Testosterone Free Direct 669841 FREE TESTOSTERONE 1.2 pg/mL 08/31/2015 Estradiol 769024 ESTRADI OL <5.0 pg/mL 08/29/2015 Progesterone Uyx223 Prog 4.37 ng/mL 08/28/2015 Fungal Screen I 796774 * *ASPERGILLUS AB BY ID . 07/23/2015 Fungal Screen I 943518 A SPERGILLUS AB BY ID None Detected 015 Fungal Screen I 630994 * *BLASTOMYCES ANTIBODY BY CF & ID . 07/23/2015 Fungal Screen I 942493 B LASTOMYCES AB,CF <1:8 07/23/2015 Fungal Screen I 084232 B LASTOMYCES AB,ID None Detected 015 Fungal Screen I 344688 * *MAXINE ANTIBODY BY ID . 07/23/2015 Fungal Screen I 941356 C ANDIDA AB BY ID Detected 07/23/2015 Fungal Screen I 379293 * *COCCIDIOIDES ANTIBODIES, IGG & IGM . 07/23/2015 Fungal Screen I 580171 C OCCIDIOIDES AB IGM 0.3 IV 07/23/2015 Fungal Screen I 265358 C OCCIDIOIDES AB IGG 0.4 IV 07/23/2015 Fungal Screen I 174988 * *HISTOPLASMA ANTIBODY BY ID . 07/23/2015 Fungal Screen I 381826 H ISTOPLASMA ABS (ID) None Detected 015 Francisella Tularensis Abs 808002 F. TULARENSIS, IGG 0 U/mL 07/17/2015 Francisella Tularensis Abs 342726 F. TULARENSIS, IGM 0 U/mL 07/17/2015 Vitamin D 25 Oh Ujd0305 VITAMIN D, 25 HYDROXY 142.21 ng/mL 07/13/2015 B12 Jid972 B12 956.00 pg/ml 07/12/2015 Antistrptolysin-O Qualitative Tpe307 ASO Negative 07/12/2015 Cbc With Differential Ord2 [...] Ord2 RDW 15.1 % 07/10/2015 Free T4 Zho838 FREE T4 0.79 ng/dL 06/12/2015 Urinalysis Ord28 [...] Ord2 RDW 16.0 % 06/04/2015 Comp Metabolic Nkz877 NA 139 mEq/L 06/04/2015 Comp Metabolic Vcq248 K 3.9 mEq/L 06/04/2015 Comp Metabolic Ggl722 CL 108 mEq/L 06/04/2015 Comp Metabolic Xnb447 CO2 26.0 mEq/L 06/04/2015 Comp Metabolic Qyc301 AN ION GAP 9 06/04/2015 Comp Metabolic Mfl824 GL UCOSE 74 mg/dL 06/04/2015 Comp Metabolic Muo514 Cr eat 0.6 mg/dL 06/04/2015 Comp Metabolic Pnp062 eG FR 102 ml/min/1.73m2 05/10 Comp Metabolic Wqw513 BUN 18 mg/dL 06/04/2015 Comp Metabolic Yav565 B/ C Ratio 29.5 Ratio 06/04/2015 Comp Metabolic Sum543 CA LCIUM 9.0 mg/dL 06/04/2015 Comp Metabolic Cag123 AL K PHOS 44 U/L 06/04/2015 Comp Metabolic Otb668 T(SGOT) 22 U/L 06/04/2015 Comp Metabolic Qeg141 AL T(SGPT) 23 U/L 06/04/2015 Comp Metabolic Ihw054 BI LI T 0.4 mg/dL 06/04/2015 Comp Metabolic Pjx248 AL BUMIN 4.0 g/dL 06/04/2015 Comp Metabolic Mdz139 TP RO 5.8 g/dL 06/04/2015 Comp Metabolic Yom160 GL OB 1.8 g/dL 06/04/2015 Comp Metabolic Sez224 A/ G Ratio 2.2 Ratio 06/04/2015 Comp Metabolic Faq267 Os mo 278 mOsmo 06/04/2015 Tsh Ord6 [...] Procedure Codes Date PPPS, SUBSEQ VISIT CPT-4: [id number] 03/19/2017 PPPS, SUBSEQ VISIT CPT-4: K0479Dqkwifu 03/11/2016 THER/PROPH/DIAG INJ SC/IM CPT-4: 88122Ycwpizl 12/27/2015 Vital Signs Date Vital 03/19/2017 Blood Pressure 1: 138/80 Code: 8480-6 BMI: 20.5 Code: 72717-6 Heart Rate 1: 83 bpm Height: 5' SpO2: 97% Waist Measure (cm): 74 cm Weight: 105 lbs 03/18/2017 Blood Pressure 1: 138/80 Code: 8480-6 BMI: 20.5 Code: 68485-6 Heart Rate 1: 83 bpm Height: 5' SpO2: 97% Weight: 105 lbs 01/27/2017 Blood Pressure 1: 142/68 Code: 8480-6 BMI: 20.5 Code: 07704-3 Heart Rate 1: 69 bpm Height: 5' SpO2: 97% Weight: 105 lbs 12/29/2016 Blood Pressure 1: 154/82 Code: 8480-6 BMI: 20.1 Code: 87286-8 Heart Rate 1: 76 bpm Height: 5' SpO2: 94% Temperature: 37.4 (C ) / 99.4 (F) Weight: 103 lbs 11/19/2016 Blood Pressure 1: 134/74 Code: 8480-6 BMI: 19.7 Code: 41274-5 Heart Rate 1: 64 bpm Height: 5' Weight: 101 lbs 08/13/2016 Blood Pressure 1: 118/56 Code: 8480-6 BMI: 19.5 Code: 54537-5 Heart Rate 1: 64 bpm Height: 5' SpO2: 97% Weight: 100 lbs 07/03/2016 Blood Pressure 1: 120/68 Code: 8480-6 BMI: 19.1 Code: 52856-8 Heart Rate 1: 80 bpm Height: 5' SpO2: 98% Weight: 98 lbs 05/07/2016 Blood Pressure 1: 116/58 Code: 8480-6 BMI: 19.1 Code: 89946-6 Heart Rate 1: 79 bpm Height: 5' SpO2: 98% Weight: 98 lbs 04/08/2016 Blood Pressure 1: 118/58 Code: 8480-6 BMI: 19.0 Code: 31186-2 Heart Rate 1: 78 bpm Height: 5' SpO2: 98% Weight: 97 lbs 8 oz 03/11/2016 Blood Pressure 1: 102/60 Code: 8480-6 BMI: 19.7 Code: 16316-2 Heart Rate 1: 75 bpm Height: 5' SpO2: 94% Waist Measure (cm): 71 cm Weight: 101 lbs 12/27/2015 Blood Pressure 1: 128/72 Code: 8480-6 BMI: 20.2 Code: 09039-0 Heart Rate 1: 95 bpm Height: 5' SpO2: 98% Weight: 103 lbs 8 oz 09/24/2015 Blood Pressure 1: 136/70 Code: 8480-6 BMI: 19.1 Code: 52068-3 Heart Rate 1: 72 bpm Height: 5' SpO2: 97% Weight: 98 lbs 06/26/2015 Blood Pressure 1: 144/64 Code: 8480-6 BMI: 18.9 Code: 23575-6 Heart Rate 1: 77 bpm Height: 5' SpO2: 98% Weight: 97 lbs 04/10/2015 Blood Pressure 1: 132/88 Code: 8480-6 BMI: 18.9 Code: 85800-4 Heart Rate 1: 83 bpm Height: 5' [...] Medicare Wellness Exam Handli ng Stress usually junaa effectively 03/19/2017 None Annual Medicare Wellness Exam [...] Encounters Encounter Performer Loca tion Codes Date ([id number]) 03904 EST. P ATIENT, LEVEL IV Diagnosis: Atrophy of thyroid (acquired)[ICD10: E03.4] Diagnosis: Essential (primary) hypertension[ICD10: I10] Diagnosis: Encounter for screening for other musculoskeletal disorder[ICD10: Z13.828] Diagnosis: Low back pain[ICD10: M54.5] Diagnosis: Transient alteration of awareness[ICD10: R40.4] Kailee Moreira MD, [facility] CPT-4: 41140 03/18/2017 ([id number]) 95701 EST. P ATIENT, LEVEL IV Diagnosis: Atrophy of thyroid (acquired)[ICD10: E03.4] Diagnosis: Essential (primary) hypertension[ICD10: I10] Diagnosis: Low back pain[ICD10: M54.5] Kailee Moreira MD, [facility] CPT-4: 86716 01/27/2017 ([id number]) 68399 EST. P ATIENT, LEVEL III Diagnosis: Acute recurrent maxillary sinusitis[ICD10: J01.01] Marixa Moreira MD, [facility] CPT-4: 38299 12/29/2016 ([id number]) 77156 EST. P ATIENT, LEVEL IV Diagnosis: Atrophy of thyroid (acquired)[ICD10: E03.4] Diagnosis: Essential (primary) hypertension[ICD10: I10] Kailee Moreira MD, [facility] CPT-4: 60626 11/19/2016 ([id number]) 75252 EST. P ATIENT, LEVEL IV Diagnosis: Atrophy of thyroid (acquired)[ICD10: E03.4] Diagnosis: Enterocolitis due to Clostridium difficile[ICD10: A04.7] Diagnosis: Essential (primary) hypertension[ICD10: I10] Kailee Moreira MD, [facility] CPT-4: 98823 08/13/2016 ([id number]) 03115 EST. P ATIENT, LEVEL IV Diagnosis: Essential (primary) hypertension[ICD10: I10] Diagnosis: Enterocolitis due to Clostridium difficile[ICD10: A04.7] Diagnosis: Hypothyroidism, unspecified[ICD10: E03.9] Diagnosis: Low back pain[ICD10: M54.5] Kailee Moreira MD, [facility] CPT-4: 64683 07/03/2016 ([id number]) 81664 EST. P ATIENT, LEVEL IV Diagnosis: Enterocolitis due to Clostridium difficile[ICD10: A04.7] Diagnosis: Lyme disease, unspecified[ICD10: A69.20] Kailee Moreira MD, [facility] CPT-4: 63704 05/07/2016 ([id number]) 14305 EST. P ATIENT, LEVEL IV Diagnosis: Generalized abdominal rigidity[ICD10: R19.37] Diagnosis: Diarrhea, unspecified[ICD10: R19.7] Diagnosis: Lyme disease, unspecified[ICD10: A69.20] Kailee Moreira MD, [facility] CPT-4: 45962 04/08/2016 ([id number]) 37805 EST. P ATIENT, LEVEL IV Diagnosis: Hypothyroidism, unspecified[ICD10: E03.9] Diagnosis: Lyme disease, unspecified[ICD10: A69.20] Diagnosis: Tachycardia, unspecified[ICD10: R00.0] Kailee Moreira MD, [facility] CPT-4: 76904 12/27/2015 ([id number]) 04601 EST. P ATIENT, LEVEL III Diagnosis: Essential (primary) hypertension[ICD10: I10] Diagnosis: Benign lipomatous neoplasm of skin and subcutaneous tissue of other sites[ICD10: D17.39] Diagnosis: Low back pain[ICD10: M54.5] Kailee Moreira MD, [facility] CPT-4: 25667 09/24/2015 ([id number]) 40102 EST. 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 2016 App[facility]ment[phone] [facility] [facility] - Annual Wellness Visit 03/19/2017 Patient [...] on previous levels of control.physical therapy at [facility] - water therapy for backeeg - needs ordered at hospital. 03/18/2017 App[facility]: [phone] (15 min) Moderate 03/18/2017 Patient Education: Patient [...] not improve. 01/27/2017 Appointment: Kailee Moreira WPtel: [phone] [facility] [place] (15 min) Moderate 01/27/2017 Patient Education: Patient Medication Summary Completed 01/27/2017 Patient Education: Hypertension Completed 01/27/2017 Visit Plan: Sinusitis - Pt has acute inf ection - pain in face, maxillary region, Pt informed to use decongestant, RX given to patient, sinus rinses also recommended. Call if symptoms do not show improvement. 12/29/2016 Appointment: Marixa Lakhani WPtel: [facility] [place] (30 min) Complex 12/29/2016 Patient Education: [...] of control. 2016 Appointment: Kailee Moreira WPtel: [facility] [place] (15 min) Moderate 11/19/2016 Patient Education: Patient [...] improved. 08/13/2016 Appointment: Ka[facility] Moreira [facility]Ptel[facility] [phone] [facility] [place] (15 min) Moderate 08/13/2016 Patient Education: Patient Medication Summary Completed 08/13/2016 Patient Education: Hypertension Completed 08/13/2016 Appointment: Ka[facility]ira [facility]el[facility] [phone] [facility] [place] (30 min) Complex 07/31/2016 Visit Plan: Hypertension [...] of control. 07/03/2016 Appointment: Ka[facility]ira [facility]el[facility] [phone] [facility] [place] (15 min) Moderate 07/03/2016 Patient Education: Patient Medication Summary Completed 07/03/2016 Patient Education: Hypertension Completed 07/03/2016 Visit Plan: Cdiff colitis - pt to have r epeat testing - if positive will have to repeat treatment. Continue with probiotic.Lymes disease - continue with treatment per Dr. Carrillo.alex sample x 18 days given to patient. 2015 Appointment: Kailee Moreira WPtel: [phone] (15 min) Moderate 05/07/2016 Patient Education: Patient Medication Summary Completed 05/07/2016 Visit Plan: Diarrhea - suspect the diarr hea is Cdiff related - check stool and treat with flagyl, probiotic to increase to three times daily - continue to hold iv antibiotic.Lyme disease - treating with iv antibiotics - on hold while she has diarrhea. 04/08/2016 Appointment: Kailee Moreira WPtel: [phone] [facility] (15 min) Moderate 04/08/2016 Patient Education: Patient Medication Summary Completed 04/08/2016 Appointment: Kailee Moreira WPtel: [facility]66[facility] (15 min) Moderate 04/03/2016 Visit Plan: Medicare [...] Summary Completed 03/11/2016 Appointment: Kailee Moreira WPtel: [address] [place], [place] [address] (15 min) Moderate 01/24/2016 Visit Plan: Tachycardia [...] of control. 12/27/2015 Appointment: Kailee Moreira WPtel: [facility] [place] (15 min) Moderate 12/27/2015 Patient Education: [...] not improve. 06/26/2015 Appointment: Kailee Moreira WPtel: [address] [place], [place] [address] [place] (15 min) Moderate 06/26/2015 Patient Education: Patient [...] repeat MRI lumbar spine Lymes disease-sees Dr Carrillo-[facility] specialist in [place], [place] CAD-HX [id number] by Dr Hyde 04/10/2015 Appointment: (S) New Patient 04/10/2015 Patient Education: Patient Medication Summary Completed 04/10/2015 Patient Education: Hypertension Completed 04/10/2015 Instructions Comment DOXYCYCLINE 100MG TW ICE DAILY X 7 DAYS . Sinusitis - Pt has acute infection - p ain in face, maxillary region, Pt informed to use decongestant, RX given to patient, sinus rinses also recommended. Call if symptoms do not show improvement. . Hypertension - wel l controlled - [...] is worsening or does not improve. . Diarrhea - suspect the diarrhea is [...] based on previous levels of control. . Cdiff colitis - pt to have [...] has antibiotic treatment plan, see scanned document. voltaren gel apply 2 grams to the [...] previous levels of control. physical therapy at [facility] - water therapy for back eeg [...] with current regimen as symptoms have improved. REPEAT MRI SPINE . Hypertension - well [...] spine Lymes disease-sees Dr Carrillo-[facility] specialist in [place], [place] CAD-HX [id number] by Dr Hyde use two old goats on back and [...]
--- OUTSIDE RECORDS SUMMARY | 2020-05-05 12:00 | XMS REPORT | CCD ---
Author Author Emily Lakhani Organization [facility] Address [address] [place] [address] Phone Care Team Providers Care Galley Hand Name Role Phone PP Unavailable CCM Unavailable Summary Purpose Interface Exchange Insurance Providers Payer name Policy type / Coverage type Covered democrat ID Effective Begin Date Effective End Date WPS Medicare Part B Medicare Part B [id number] Unknown [employer] Medicare Part B [id number] Unknown Family history Mother Diagnosis Age At [...] Retir ed 04/10/[address]: 973965068 Never smoker 04/10/[address]: 266782782 Never drinks alcohol 04/10/2015 Allergies, Adverse Reactions, [...] estradiol 0.01% (0.1 mg/gram) vaginal cream RxNorm: 310332 1 GRAM(S) VAG BIW 02/21/2019 08/13/2020 Ac tive Ventolin HFA 90 mcg/ actuation aerosol inhaler RxNorm: 1534734 1 INH TID as needed dyspnea 01/24/2019 08/21/2019 Active Fioricet 50 mg-300 m g-40 mg capsule RxNorm: 0425583 1 Capsule(s) PO Q8 P RN as needed for headache 01/10/2019 No Stop Date Active dexamethasone 4 mg t ablet RxNorm: 449108 1 Tablet(s) PO daily 01/10/2019 01/09/2019 Inactive to be started on 01-11-19 Kenalog 40 mg/mL sadiq pension for injection RxNorm: 3018422 Milliliter(s) Inj 01/10/2019 01/10/2019 In active dexamethasone 4 mg t ablet RxNorm: 511694 1 Tablet(s) PO daily 01/10/2019 01/14/2019 Inactive to be started on 01-11-19 cyclobenzaprine 5 mg tablet RxNorm: 552769 1 Tablet(s) PO TID 12/14/2018 12/20/2018 Inactive cyclobenzaprine 5 mg tablet RxNorm: 063463 1 Tablet(s) PO TID 12/14/2018 12/13/2018 Inactive [place] Thyroid 90 mg tablet RxNorm: 308892 Tablet(s) 1/2 TABLET( S) PO DAILY 11/18/2018 02/10/2020 Ac tive [place] Thyroid 60 mg tablet RxNorm: 417373 1 Tablet(s) PO 3 x we jenise Bautista 11/17/2018 11/17/2018 In active hold until she is ready to refill [place] Thyroid 30 mg tablet RxNorm: 222287 1 Tablet(s) PO 4 time s a week Thu SAT 11/17/2018 11/16/2018 Inactive Please fill now- she will use her curren t supply of 60mg until she needs refill [place] Thyroid 30 mg tablet RxNorm: 688254 1 Tablet(s) PO 4 time s a week Thu SAT 11/17/2018 11/17/2018 Inactive Please fill now- she will use her curren t supply of 60mg until she needs refill Flagyl 500 mg tablet RxNorm: 832247 1 Tablet(s) PO TID 2018 10/17/2018 Inactive Flagyl 500 mg tablet RxNorm: 529916 1 Tablet(s) PO TID 10/06/2018 10/05/2018 Inactive Flagyl 500 mg tablet RxNorm: 480784 1 Tablet(s) PO TID 10/06/2018 10/10/2018 Inactive cefdinir 300 mg capsule RxNorm: 938489 1 Capsule(s) PO BID 09/29/2018 10/05/2018 Inactive cefdinir 300 mg capsule RxNorm: 438793 1 Capsule(s) PO BID 09/29/2018 09/28/2018 Inactive estradiol 0.01% (0.1 mg/gram) vaginal cream RxNorm: 715149 1 Gram(s) VAG BIW 09/15/2018 02/20/2019 In active Imitrex 50 mg tablet RxNorm: 724005 TAKE WITH ONSET OF MIGRAINE- MAY TAKE AN ADDITIONAL DOSE IF NO RELIEF OF HEADACHE IN 1 HOUR- MAX OF 3 DOSES IN 24 HOURS Tablet(s) 06/14/2018 No Stop Date Active betamethasone gwendolyn te 0.1 % topical cream RxNorm: 021179 1 Application TOP TID 06/01/2018 06/10/2018 In active dexamethasone 4 mg t ablet RxNorm: 504422 1 Tablet(s) PO daily 06/01/2018 06/05/2018 Inactive Kenalog 40 mg/mL sadiq pension for injection RxNorm: 7860578 1.5 Milliliter(s) In j 05/24/2018 05/24/2018 In active amitriptyline 10 mg tablet RxNorm: 695968 1/2 TO 1 TABLET(S) PO QPM 01/21/2018 09/14/2018 Inactive [place] Thyroid 60 mg tablet RxNorm: 887357 1 Tablet(s) PO daily 01/12/2018 11/16/2018 Inactive carvedilol 3.125 mg tablet RxNorm: 154908 1 Tablet(s) PO BID 10/12/2017 No Stop Date Active Fiorinal-Codeine #3 30 mg-50 mg-325 mg-40 mg capsule RxNorm: 414622 1 Capsule(s) PO BID 10/12/2017 11/10/2017 Inactive progesterone microni zed 100 mg capsule RxNorm: 502518 1 Capsule(s) PO daily on days 1- 25 of each month 10/12/2017 01/11/2018 Inactive [place] Thyroid 90 mg tablet RxNorm: 015176 1/2 Tablet(s) PO melinda y 1/2 TABLET(S) PO DAILY 08/06/2017 01/11/2018 Inactive [place] Thyroid 90 mg tablet RxNorm: 999438 1/2 TABLET(S) PO DAILY 07/14/2017 08/05/2017 Inactive Keppra 500 mg tablet RxNorm: 462903 1 Tablet(s) PO BID 05/13/2017 08/05/2017 Inactive Deplin (algal oil) 1 5 mg-90.314 mg capsule RxNorm: TAKE ONE CAPSULE BY MOUTH O NE TIME DAILY 05/13/2017 01/11/2018 Inactive Keppra 250 mg tablet RxNorm: 833720 1 Tablet(s) PO daily 04/23/2017 04/22/2017 Inactive take 1 tab qd x 1 week then increase to BID Keppra 250 mg tablet RxNorm: 761147 1 Tablet(s) PO daily 04/23/2017 05/12/2017 Inactive take 1 tab qd x 1 week then increase to BID cyclobenzaprine 5 mg tablet RxNorm: 949487 1 Tablet(s) PO TID as needed 02/03/2017 02/22/2017 In active cyclobenzaprine 5 mg tablet RxNorm: 009261 1 Tablet(s) PO TID as needed 02/03/2017 02/02/2017 In active [place] Thyroid 90 mg tablet RxNorm: 094215 1/2 Tablet(s) PO daily 11/19/2016 03/18/2017 Inactive amitriptyline 10 mg tablet RxNorm: 199148 1/2 to 1 Tablet(s) PO QPM 11/19/2016 11/13/2017 Inactive fluconazole 50 mg ta blet RxNorm: 478368 1 Tablet(s) PO daily 08/20/2016 09/02/2016 Inactive [place] Thyroid 90 mg tablet RxNorm: 750447 1/2 Tablet(s) PO daily 08/11/2016 11/18/2016 Inactive Flagyl 500 mg tablet RxNorm: 101476 1 Tablet(s) PO TID 07/28/2016 01/11/2018 Inactive Flagyl 500 mg tablet RxNorm: 932509 1 Tablet(s) PO TID 07/17/2016 07/27/2016 Inactive amitriptyline 10 mg tablet RxNorm: 626359 1/2 to 1 Tablet(s) PO QPM 07/03/2016 10/30/2016 Inactive metronidazole 500 mg tablet RxNorm: 110951 1 Tablet(s) PO QID 07/03/2016 07/12/2016 Inactive amitriptyline 25 mg tablet RxNorm: 092581 1/2 -1 Tablet(s) PO Q HS as needed insomnia 06/26/2016 07/02/2016 Inactive vancomycin 125 mg ca psule RxNorm: 839725 1 Capsule(s) PO QID 06/20/2016 06/29/2016 Inactive [place] Thyroid 30 mg tablet RxNorm: 753668 1.5 Tablet(s) PO daily 06/20/2016 06/19/2016 Inactive [place] Thyroid 30 mg tablet RxNorm: 992450 1.5 Tablet(s) PO daily 06/20/2016 08/10/2016 Inactive fluconazole 50 mg ta blet RxNorm: 529107 1 Tablet(s) PO daily 06/16/2016 08/19/2016 Inactive amitriptyline 25 mg tablet RxNorm: 202591 1/2 -1 Tablet(s) PO Q HS as needed insomnia 06/12/2016 06/11/2016 Inactive amitriptyline 25 mg tablet RxNorm: 738338 1/2 -1 Tablet(s) PO Q HS as needed insomnia 06/12/2016 06/25/2016 Inactive vancomycin 125 mg ca psule RxNorm: 978056 1 Capsule(s) PO QID 06/12/2016 06/19/2016 Inactive fluconazole 50 mg ta blet RxNorm: 207131 1 Tablet(s) PO daily 06/12/2016 06/15/2016 Inactive Diflucan 150 mg tablet RxNorm: 369368 1 Tablet(s) PO daily 06/05/2016 06/09/2016 Inactive Deplin (algal oil) 1 5 mg-90.314 mg capsule RxNorm: 1 Capsule(s) PO daily 06/05/2016 06/04/2016 In active Diflucan 150 mg tablet RxNorm: 849753 1 Tablet(s) PO daily 06/05/2016 06/04/2016 Inactive Deplin (algal oil) 1 5 mg-90.314 mg capsule RxNorm: 1 Capsule(s) PO daily 06/05/2016 05/12/2017 In active nystatin 500,000 uni t tablet RxNorm: 091253 4 Tablet(s) PO daily 05/21/2016 09/17/2016 Inactive Vitamin D3 5,000 uni t tablet RxNorm: 327641 Tablet(s) PO daily 05/07/2016 No Stop Date Active nystatin 500,000 uni t tablet RxNorm: 106346 1 Tablet(s) PO Q4H 05/07/2016 05/20/2016 Inactive fluconazole 100 mg t ablet RxNorm: 757486 1 Tablet(s) PO daily 05/07/2016 06/11/2016 Inactive progesterone microni zed 100 mg capsule RxNorm: 521402 3 Capsule(s) PO daily on days 1- 25 of each month 05/07/2016 2017 Inactive metronidazole 500 mg tablet RxNorm: 471279 1 Tablet(s) PO TID 04/30/2016 05/09/2016 Inactive metronidazole 500 mg tablet RxNorm: 925206 1 Tablet(s) PO TID 04/30/2016 04/29/2016 Inactive vancomycin 125 mg ca psule RxNorm: 983296 1 Capsule(s) PO QID 04/29/2016 05/08/2016 Inactive vancomycin 125 mg ca psule RxNorm: 323321 1 Capsule(s) PO QID 04/29/2016 04/28/2016 Inactive Flagyl 500 mg tablet RxNorm: 230143 1 Tablet(s) PO TID 04/09/2016 04/08/2016 Inactive Flagyl 500 mg tablet RxNorm: 392826 1 Tablet(s) PO TID 04/09/2016 04/22/2016 Inactive carvedilol 3.125 mg tablet RxNorm: 688770 1 Tablet(s) PO BID 04/08/2016 2017 Inactive [place] Thyroid 60 mg tablet RxNorm: 804671 Tablet(s) PO 1 Tablet (s) daily 01/31/2016 06/19/2016 In active Pt request 90 day supply 11/23/2015 11:1 1:54 AM [place] Thyroid 30 mg tablet RxNorm: 402430 1 Tablet(s) daily 01/28/2016 01/30/2016 Inactive Pt request 90 day supply 11/23/2015 11:1 1:54 AM [place] Thyroid 30 mg tablet RxNorm: 198839 1 Tablet(s) daily 01/21/2016 01/27/2016 Inactive Pt request 90 day supply 11/23/2015 11:1 1:54 AM [place] Thyroid 30 mg tablet RxNorm: 003909 Tablet(s) TAKE ONE AN D ONE-HALF (45 MG) TABLET BY MOUTH EVERY DAY 01/02/2016 01/20/2016 Inactive Pt request 90 day supply 11/23/2015 11:11:54 AM Xylocaine 20 mg/mL ( 2 %) injection solution RxNorm: 0616933 2.5 Milliliter(s) In j BID with cefepime 12/27/2015 01/25/2016 Inactive cefepime 1 gram solu tion for injection RxNorm: 9189198 Inj 12/1012/27/2015 Inactive [place] Thyroid 30 mg tablet RxNorm: 285800 TAKE ONE TABLET BY [facility] EVERY DAY 11/23/2015 01/01/2016 In active Pt request 90 day supply 11/23/2015 11:1 1:54 AM Voltaren 1 % topical gel RxNorm: 054005 2 Gram(s) TOP QID 09/24/2015 12/26/2015 Inactive cyclobenzaprine 10 m g tablet RxNorm: 117444 1 Tablet(s) PO Q6 as needed 08/27/2015 05/06/2016 In active [place] Thyroid 30 mg tablet RxNorm: 566714 1 Tablet(s) PO daily 06/21/2015 06/20/2015 Inactive [place] Thyroid 30 mg tablet RxNorm: 585134 1 Tablet(s) PO daily 06/21/2015 11/22/2015 Inactive Synthroid 25 mcg tablet RxNorm: 403679 1 Tablet(s) PO daily 06/07/2015 06/06/2015 Inactive KASEY-1 Synthroid 25 mcg tablet RxNorm: 039059 1 Tablet(s) PO daily 06/07/2015 06/20/2015 Inactive KASEY-1 ofloxacin 0.3 % ear drops RxNorm: 534024 1-2 Drop(s) OTIC OU Q 4H as needed No Start Date Active Aspirin Low Dose 81 mg tablet,delayed release RxNorm: 719441 1 Tablet(s) PO daily No Start Date Active tyrosine (bulk) powder RxNorm: 1 Miscellaneous dash every am No Start Date Active arginine (L-arginine ) oral RxNorm: 1091 oral No Sta rt Date Active glutathione RxNorm: 4890 miscellaneous No Start Date Active Plaquenil 200 mg tablet RxNorm: 386761 1 Tablet(s) PO BID No Start Date 05/19/2016 Inactive fluconazole 100 mg t ablet RxNorm: 604971 1/2 Tablet(s) PO daily No Start Date 05/06/2016 Inactive fluconazole 150 mg t ablet RxNorm: 089745 1 Tablet(s) PO QW x4 No Start Date 12/26/2015 Inactive progesterone microni zed 100 mg capsule RxNorm: 834886 2 Capsule(s) PO daily No Start Date 05/06/2016 Inactive nystatin 500,000 uni t tablet RxNorm: 511203 1 Tablet(s) PO QID No Start Date 05/06/2016 Inactive cyclobenzaprine 10 m g tablet RxNorm: 331118 1 Tablet(s) PO Q6 as needed No Start Date 08/26/2015 Inactive vitamin K oral RxNorm: 8308 oral No Start Date 12/26/2015 Inactive carvedilol 3.125 mg tablet RxNorm: 896011 1 Tablet(s) PO daily No Start Date 04/07/2016 Inactive lisinopril 5 mg tablet RxNorm: 663216 1 Tablet(s) PO daily No Start Date 05/12/2017 Inactive azithromycin 250 mg tablet RxNorm: 581958 1 Tablet(s) PO daily will incrase to 2 per day No Start Date 12/26/2015 Inactive Probiotic 4X oral RxNorm: 3930439 oral No Start Date 01/07/2016 Inactive Imitrex 50 mg tablet RxNorm: 350467 TAKE WITH ONSET OF MIGRAINE- MAY TAKE AN ADDITIONAL DOSE IF NO RELIEF OF HEADACHE IN 1 HOUR- MAX OF 3 DOSES IN 24 HOURS No Start Date 06/13/2018 Inactive Vitamin D3 1,000 uni t tablet RxNorm: 867288 Tablet(s) PO daily No Start Date 05/06/2016 Inactive progesterone microni zed 100 mg capsule RxNorm: 121013 3 Capsule(s) PO daily rx from [facility] No Start Date 12/26/2015 Inactive lorazepam 0.5 mg tablet RxNorm: 079110 1/2-1 Tablet(s) PO daily as needed No Start Date 03/10/2016 Inactive Multiple Vitamin oral RxNorm: 99163 oral No Start Date 05/06/2016 Inactive Medication Administered Medication Codes Instruc tions Start Date Status Kenalog 40 mg/mL suspension for injection RxNorm: 7702396 Milliliter 01/10/2019 No longer Active Kenalog 40 mg/mL suspension for injection RxNorm: 6092681 1.5Milliliter 05/24/2018 No longer Active cefepime 1 gram solution for injection RxNorm: 0865858 12/27/2015 No longer A ctive Immunizations No [...] Code Result Date Vitamin D 25 Oh [id number] VITAMIN D, 25 HYDROXY 51.28 ng/mL 02/18/2019 Tsh Ord6 TSH (3rd IS) 0.59 uIU/mL 02/18/2019 Free T4 Oyw447 FREE T4 0.64 ng/dL 02/18/2019 Lipid Ord30 [...] 30.4 pg 02/18/2019 Cbc With Differential Ord2 [place]% 15.5 % 02/18/2019 Cbc With Differential Ord2 MCHC 31.7 pg 02/18/2019 Cbc With Differential Ord2 Eos% 3.2 % 02/18/2019 Cbc With Differential Ord2 PLT 297 K/ul 02/18/2019 Cbc With Differential Ord2 Baso% 0.4 % 02/18/2019 Cbc With Differential Ord2 RDW 18.4 % 02/18/2019 Cbc With Differential Ord2 Neut ABS# 2.55 K/ul 02/18/2019 Cbc With Differential Ord2 Lymph ABS# 1.30 K/ul 02/18/2019 Cbc With Differential Ord2 [place] ABS# 0.7 K/ul 02/18/2019 Cbc With Differential Ord2 Eos ABS# 0.2 K/ul 02/18/2019 Cbc With Differential Ord2 Baso ABS# 0.0 K/ul 02/18/2019 Ferritin Ord22 FERRITIN 31.1 ng/mL 02/18/2019 Comp Metabolic Gtt790 NA 145 mEq/L 06/14/2018 Comp Metabolic Joe112 K 4.0 mEq/L 06/14/2018 Comp Metabolic Yys006 CL 106 mEq/L 06/14/2018 Comp Metabolic Fsk806 CO2 31.0 mEq/L 06/14/2018 Comp Metabolic Iqe253 AN ION GAP 12 06/14/2018 Comp Metabolic Ovx969 GL UCOSE 88 mg/dL 06/14/2018 Comp Metabolic Vuv932 Cr eat 0.7 mg/dL 06/14/2018 Comp Metabolic Fyb436 eG FR 92 ml/min/1.73m2 06/14 Comp Metabolic Gsn054 BUN 9 mg/dL 06/14/2018 Comp Metabolic Uxk602 B/ C Ratio 13.6 Ratio 06/14/2018 Comp Metabolic Dcd098 CA LCIUM 9.0 mg/dL 06/14/2018 Comp Metabolic Ukj449 AL K PHOS 36 U/L 06/14/2018 Comp Metabolic Ppz008 T(SGOT) 21 U/L 06/14/2018 Comp Metabolic Mqn505 AL T(SGPT) 22 U/L 06/14/2018 Comp Metabolic Ewo374 BI LI T 0.3 mg/dL 06/14/2018 Comp Metabolic Gwu581 AL BUMIN 3.8 g/dL 06/14/2018 Comp Metabolic Xzz151 TP RO 5.8 g/dL 06/14/2018 Comp Metabolic Tbl346 GL OB 2.0 g/dL 06/14/2018 Comp Metabolic Sju360 A/ G Ratio 2.0 Ratio 06/14/2018 Comp Metabolic Kbe439 Os mo 287 mOsmo 06/14/2018 Free T4 Gbm454 FREE T4 0.66 ng/dL 06/14/2018 Tsh Ord6 [...] 29.8 pg 06/14/2018 Cbc With Differential Ord2 [place]% 13.9 % 06/14/2018 Cbc With Differential Ord2 [...] 1.40 K/ul 06/14/2018 Cbc With Differential Ord2 [place] ABS# 0.6 K/ul 06/14/2018 Cbc With Differential Ord2 Eos ABS# 0.2 K/ul 06/14/2018 Cbc With Differential Ord2 Baso ABS# 0.0 K/ul 06/14/2018 Free T4 Frb723 FREE T4 0.63 ng/dL 01/05/2018 Lipid Ord30 CHOL 246 mg/dL 01/05/2018 Lipid Ord30 HDL 79.0 mg/dl 01/05/2018 Lipid Ord30 TRIG 124 mg/dL 01/05/2018 Lipid Ord30 LDL 142 mg/dL 01/05/2018 Lipid Ord30 C/HDL 3.1 Ratio 01/05/2018 Tsh Ord6 TSH (3rd IS) 1.48 uIU/mL 01/05/2018 Tsh Ord6 hTSH II 2.03 uIU/mL 08/07/2017 Comp Metabolic Sah447 NA 142 mEq/L 08/07/2017 Comp Metabolic Och639 K 4.1 mEq/L 08/07/2017 Comp Metabolic Kuk291 CL 105 mEq/L 08/07/2017 Comp Metabolic Qqc346 CO2 27.0 mEq/L 08/07/2017 Comp Metabolic Vuf980 AN ION GAP 14 08/07/2017 Comp Metabolic Fmo407 GL UCOSE 89 mg/dL 08/07/2017 Comp Metabolic Sbl402 Cr eat 0.7 mg/dL 08/07/2017 Comp Metabolic Eqg249 eG FR 86 ml/min/1.73m2 08/07 Comp Metabolic Ueo162 BUN 16 mg/dL 08/07/2017 Comp Metabolic Akm063 B/ C Ratio 22.9 Ratio 08/07/2017 Comp Metabolic Rqs487 CA LCIUM 9.8 mg/dL 08/07/2017 Comp Metabolic Smc445 AL K PHOS 41 U/L 08/07/2017 Comp Metabolic Ljh785 T(SGOT) 26 U/L 08/07/2017 Comp Metabolic Etq418 AL T(SGPT) 21 U/L 08/07/2017 Comp Metabolic Mcc027 BI LI T 0.5 mg/dL 08/07/2017 Comp Metabolic Sui658 AL BUMIN 4.3 g/dL 08/07/2017 Comp Metabolic Tpp790 TP RO 6.6 g/dL 08/07/2017 Comp Metabolic Nre943 GL OB 2.3 g/dL 08/07/2017 Comp Metabolic Jja590 A/ G Ratio 1.9 Ratio 08/07/2017 Comp Metabolic Hcw608 Os mo 284 mOsmo 08/07/2017 Free T4 Npx429 FREE T4 0.64 ng/dL 08/07/2017 Lipid Ord30 [...] 30.3 pg 08/07/2017 Cbc With Differential Ord2 [place]% 13.9 % 08/07/2017 Cbc With Differential Ord2 [...] 1.49 K/ul 08/07/2017 Cbc With Differential Ord2 [place] ABS# 0.6 K/ul 08/07/2017 Cbc With Differential [...] 30.5 pg 11/20/2016 Cbc With Differential Ord2 [place]% 10.8 % 11/20/2016 Cbc With Differential Ord2 [...] 1.62 K/ul 11/20/2016 Cbc With Differential Ord2 [place] ABS# 0.5 K/ul 11/20/2016 Cbc With Differential Ord2 Eos ABS# 0.2 K/ul 11/20/2016 Cbc With Differential Ord2 Baso ABS# 0.0 K/ul 11/20/2016 Free T4 Zbk439 FREE T4 0.80 ng/dL 11/20/2016 Tsh Ord6 hTSH II 1.35 uIU/mL 11/20/2016 Comp Metabolic Ter644 NA 139 mEq/L 11/20/2016 Comp Metabolic Vzg332 K 3.9 mEq/L 11/20/2016 Comp Metabolic Nix494 CL 103 mEq/L 11/20/2016 Comp Metabolic Oid404 CO2 30.0 mEq/L 11/20/2016 Comp Metabolic Cor752 AN ION GAP 10 11/20/2016 Comp Metabolic Vxy654 GL UCOSE 85 mg/dL 11/20/2016 Comp Metabolic Tap669 Cr eat 0.7 mg/dL 11/20/2016 Comp Metabolic Fyq577 eG FR 93 ml/min/1.73m2 11/20 Comp Metabolic Ked237 BUN 12 mg/dL 11/20/2016 Comp Metabolic Nfh557 B/ C Ratio 18.2 Ratio 11/20/2016 Comp Metabolic Nel168 CA LCIUM 9.1 mg/dL 11/20/2016 Comp Metabolic Gwh835 AL K PHOS 34 U/L 11/20/2016 Comp Metabolic Sdz353 T(SGOT) 18 U/L 11/20/2016 Comp Metabolic Kvj419 AL T(SGPT) 14 U/L 11/20/2016 Comp Metabolic Tab401 BI LI T 0.5 mg/dL 11/20/2016 Comp Metabolic Qjb690 AL BUMIN 4.2 g/dL 11/20/2016 Comp Metabolic Hmm076 TP RO 6.3 g/dL 11/20/2016 Comp Metabolic Bxn004 GL OB 2.1 g/dL 11/20/2016 Comp Metabolic Kmu859 A/ G Ratio 2.0 Ratio 11/20/2016 Comp Metabolic Ayf510 Os mo 277 mOsmo 11/20/2016 Lipid Ord30 CHOL 189 mg/dL 11/20/2016 Lipid Ord30 HDL 81.0 mg/dl 11/20/2016 Lipid Ord30 TRIG 77 mg/dL 11/20/2016 Lipid Ord30 LDL 93 mg/dL 11/20/2016 Lipid Ord30 C/HDL 2.3 Ratio 11/20/2016 Testosterone Free Direct [id number] FREE TESTOSTERONE 0.7 pg/mL 10/06/2016 Estradiol 704589 ESTRADI OL 5.9 pg/mL 10/03/2016 Cortisol 543405 CORTISOL 23 ug/dL 10/03/2016 Progesterone Oak961 Prog 17.38 ng/mL 10/01/2016 Free T4 Pcy519 FREE T4 0.66 ng/dL 08/13/2016 Tsh Ord6 hTSH II 0.99 uIU/mL 08/13/2016 Testosterone Free Direct [id number] FREE TESTOSTERONE <0.2 pg/mL 07/05/2016 Estradiol 551833 ESTRADI OL <5.0 pg/mL 07/03/2016 Progesterone Odt026 Prog 23.37 ng/mL 07/02/2016 Tsh Ord6 hTSH II 0.24 uIU/mL 06/17/2016 Free T4 Zvi039 FREE T4 0.86 ng/dL 06/17/2016 Estradiol 917784 ESTRADI OL <5.0 pg/mL 05/21/2016 Comp Metabolic Gbu546 NA 140 mEq/L 05/20/2016 Comp Metabolic Vzy943 K 4.1 mEq/L 05/20/2016 Comp Metabolic Uyk280 CL 106 mEq/L 05/20/2016 Comp Metabolic Yiw289 CO2 26.0 mEq/L 05/20/2016 Comp Metabolic Jdj114 AN ION GAP 12 05/20/2016 Comp Metabolic Cde015 GL UCOSE 81 mg/dL 05/20/2016 Comp Metabolic Mzg017 Cr eat 0.5 mg/dL 05/20/2016 Comp Metabolic Xyt025 eG FR 119 ml/min/1.73m2 05/09 Comp Metabolic Lzk583 BUN 15 mg/dL 05/20/2016 Comp Metabolic Qpk812 B/ C Ratio 28.3 Ratio 05/20/2016 Comp Metabolic Vtp752 CA LCIUM 8.9 mg/dL 05/20/2016 Comp Metabolic Lfv262 AL K PHOS 36 U/L 05/20/2016 Comp Metabolic Jui325 T(SGOT) 25 U/L 05/20/2016 Comp Metabolic Ppg538 AL T(SGPT) 23 U/L 05/20/2016 Comp Metabolic Gvq889 BI LI T 0.4 mg/dL 05/20/2016 Comp Metabolic Bef914 AL BUMIN 3.7 g/dL 05/20/2016 Comp Metabolic Qcr072 TP RO 5.9 g/dL 05/20/2016 Comp Metabolic Oia303 GL OB 2.2 g/dL 05/20/2016 Comp Metabolic Ate259 A/ G Ratio 1.7 Ratio 05/20/2016 Comp Metabolic Wtd015 Os mo 279 mOsmo 05/20/2016 Progesterone Xxy776 Prog 8.44 ng/mL 05/20/2016 Cbc With Differential [...] 30.2 pg 05/20/2016 Cbc With Differential Ord2 [place]% 13.0 % 05/20/2016 Cbc With Differential Ord2 [...] 0.85 K/ul 05/20/2016 Cbc With Differential Ord2 [place] ABS# 0.6 K/ul 05/20/2016 Cbc With Differential [...] collection if refrigerated) 05/20/2016 Testosterone Free Direct [id number] FREE TESTOSTERONE 0.6 pg/mL 05/19/2016 Estradiol 529770 ESTRADI OL <5.0 pg/mL 05/16/2016 Comp Metabolic Pqk292 NA 140 mEq/L 05/15/2016 Comp Metabolic Tnn076 K 3.8 mEq/L 05/15/2016 Comp Metabolic Dde691 CL 106 mEq/L 05/15/2016 Comp Metabolic Tie931 CO2 26.0 mEq/L 05/15/2016 Comp Metabolic Sio122 AN ION GAP 12 05/15/2016 Comp Metabolic Blh702 GL UCOSE 77 mg/dL 05/15/2016 Comp Metabolic Ewc084 Cr eat 0.5 mg/dL 05/15/2016 Comp Metabolic Hlb204 eG FR 144 ml/min/1.73m2 05/2016 Comp Metabolic Emg595 BUN 18 mg/dL 05/15/2016 Comp Metabolic Uty069 B/ C Ratio 40.0 Ratio 05/15/2016 Comp Metabolic Fwk137 CA LCIUM 8.8 mg/dL 05/15/2016 Comp Metabolic Sqw040 AL K PHOS 28 U/L 05/15/2016 Comp Metabolic Lay548 T(SGOT) 19 U/L 05/15/2016 Comp Metabolic Dbw905 AL T(SGPT) 19 U/L 05/15/2016 Comp Metabolic Fsj137 BI LI T 0.5 mg/dL 05/15/2016 Comp Metabolic Xyz433 AL BUMIN 3.6 g/dL 05/15/2016 Comp Metabolic Czz476 TP RO 5.6 g/dL 05/15/2016 Comp Metabolic Gkt620 GL OB 2.0 g/dL 05/15/2016 Comp Metabolic Zke743 A/ G Ratio 1.8 Ratio 05/15/2016 Comp Metabolic Duf252 Os mo 280 mOsmo 05/15/2016 Progesterone Osu347 Prog 9.08 ng/mL 05/15/2016 Cbc With Differential [...] 29.9 pg 05/15/2016 Cbc With Differential Ord2 [place]% 14.1 % 05/15/2016 Cbc With Differential Ord2 [...] 1.42 K/ul 05/15/2016 Cbc With Differential Ord2 [place] ABS# 0.6 K/ul 05/15/2016 Cbc With Differential [...] Ord28 U-Com None 05/15/2016 Testosterone Free Direct [id number] FREE TESTOSTERONE 0.2 pg/mL 05/09/2016 Estradiol 565154 ESTRADI OL <5.0 pg/mL 05/07/2016 Comp Metabolic Ewz340 NA 141 mEq/L 05/06/2016 Comp Metabolic Kal104 K 3.6 mEq/L 05/06/2016 Comp Metabolic Rny344 CL 107 mEq/L 05/06/2016 Comp Metabolic Dls945 CO2 28.0 mEq/L 05/06/2016 Comp Metabolic Ild407 AN ION GAP 10 05/06/2016 Comp Metabolic Ljk330 GL UCOSE 138 mg/dL 05/06/2016 Comp Metabolic Ebk571 Cr eat 0.5 mg/dL 05/06/2016 Comp Metabolic Yqb177 eG FR 119 ml/min/1.73m2 04/10 Comp Metabolic Ahw361 BUN 16 mg/dL 05/06/2016 Comp Metabolic Fjp853 B/ C Ratio 30.2 Ratio 05/06/2016 Comp Metabolic Yxm397 CA LCIUM 8.9 mg/dL 05/06/2016 Comp Metabolic Xkz860 AL K PHOS 29 U/L 05/06/2016 Comp Metabolic Agb074 T(SGOT) 20 U/L 05/06/2016 Comp Metabolic Pqw016 AL T(SGPT) 21 U/L 05/06/2016 Comp Metabolic Uxh370 BI LI T 0.4 mg/dL 05/06/2016 Comp Metabolic Tuu837 AL BUMIN 3.6 g/dL 05/06/2016 Comp Metabolic Cdt119 TP RO 5.5 g/dL 05/06/2016 Comp Metabolic Tce197 GL OB 1.9 g/dL 05/06/2016 Comp Metabolic Xaj091 A/ G Ratio 1.9 Ratio 05/06/2016 Comp Metabolic Yim588 Os mo 285 mOsmo 05/06/2016 Urinalysis Ord28 [...] hours from collection if refrigerated) 05/06/2016 Progesterone Ijv316 Prog 0.98 ng/mL 05/06/2016 Cbc With Differential [...] 29.2 pg 05/06/2016 Cbc With Differential Ord2 [place]% 10.1 % 05/06/2016 Cbc With Differential Ord2 [...] 1.16 K/ul 05/06/2016 Cbc With Differential Ord2 [place] ABS# 0.4 K/ul 05/06/2016 Cbc With Differential [...] 29.6 pg 04/29/2016 Cbc With Differential Ord2 [place]% 13.1 % 04/29/2016 Cbc With Differential Ord2 [...] 1.42 K/ul 04/29/2016 Cbc With Differential Ord2 [place] ABS# 0.5 K/ul 04/29/2016 Cbc With Differential Ord2 Eos ABS# 0.2 K/ul 04/29/2016 Cbc With Differential Ord2 Baso ABS# 0.0 K/ul 04/29/2016 Comp Metabolic Obx505 NA 141 mEq/L 04/29/2016 Comp Metabolic Vhi436 K 4.0 mEq/L 04/29/2016 Comp Metabolic Zff570 CL 108 mEq/L 04/29/2016 Comp Metabolic Lng445 CO2 27.0 mEq/L 04/29/2016 Comp Metabolic Hcv737 AN ION GAP 10 04/29/2016 Comp Metabolic Bmw993 GL UCOSE 69 mg/dL 04/29/2016 Comp Metabolic Zhq641 Cr eat 0.5 mg/dL 04/29/2016 Comp Metabolic Mqx574 eG FR 122 ml/min/1.73m2 04/10 Comp Metabolic Khc408 BUN 19 mg/dL 04/29/2016 Comp Metabolic Pun526 B/ C Ratio 36.5 Ratio 04/29/2016 Comp Metabolic Zdz319 CA LCIUM 9.1 mg/dL 04/29/2016 Comp Metabolic Fhb113 AL K PHOS 31 U/L 04/29/2016 Comp Metabolic Kaw495 T(SGOT) 20 U/L 04/29/2016 Comp Metabolic Wlk584 AL T(SGPT) 22 U/L 04/29/2016 Comp Metabolic Dju344 BI LI T 0.6 mg/dL 04/29/2016 Comp Metabolic Qkm459 AL BUMIN 3.8 g/dL 04/29/2016 Comp Metabolic Nit494 TP RO 5.9 g/dL 04/29/2016 Comp Metabolic Cmf380 GL OB 2.1 g/dL 04/29/2016 Comp Metabolic Jmm342 A/ G Ratio 1.8 Ratio 04/29/2016 Comp Metabolic Jmw622 Os mo 282 mOsmo 04/29/2016 Progesterone Ujz302 Prog 5.99 ng/mL 04/29/2016 Urinalysis Ord28 U-Color [...] from collection if refrigerated) 04/25/2016 Comp Metabolic Sgo008 NA 138 mEq/L 04/25/2016 Comp Metabolic Jpt011 K 3.6 mEq/L 04/25/2016 Comp Metabolic Ipr323 CL 105 mEq/L 04/25/2016 Comp Metabolic Qtj797 CO2 27.0 mEq/L 04/25/2016 Comp Metabolic Cch565 AN ION GAP 10 04/25/2016 Comp Metabolic Ced845 GL UCOSE 190 mg/dL 04/25/2016 Comp Metabolic Xem945 Cr eat 0.5 mg/dL 04/25/2016 Comp Metabolic Vvt126 eG FR 128 ml/min/1.73m2 04/09 Comp Metabolic Fez587 BUN 17 mg/dL 04/25/2016 Comp Metabolic Bws629 B/ C Ratio 34.0 Ratio 04/25/2016 Comp Metabolic Xyi706 CA LCIUM 8.7 mg/dL 04/25/2016 Comp Metabolic Glo590 AL K PHOS 32 U/L 04/25/2016 Comp Metabolic Sfs910 T(SGOT) 23 U/L 04/25/2016 Comp Metabolic Dmw736 AL T(SGPT) 22 U/L 04/25/2016 Comp Metabolic Nmi158 BI LI T 0.5 mg/dL 04/25/2016 Comp Metabolic Cjo403 AL BUMIN 3.6 g/dL 04/25/2016 Comp Metabolic Mcg929 TP RO 5.5 g/dL 04/25/2016 Comp Metabolic Jyh071 GL OB 1.9 g/dL 04/25/2016 Comp Metabolic Nxb850 A/ G Ratio 1.9 Ratio 04/25/2016 Comp Metabolic Swj151 Os mo 282 mOsmo 04/25/2016 Cbc With [...] 29.6 pg 04/25/2016 Cbc With Differential Ord2 [place]% 13.0 % 04/25/2016 Cbc With Differential Ord2 [...] 1.01 K/ul 04/25/2016 Cbc With Differential Ord2 [place] ABS# 0.4 K/ul 04/25/2016 Cbc With Differential [...] 29.2 pg 04/04/2016 Cbc With Differential Ord2 [place]% 16.1 % 04/04/2016 Cbc With Differential Ord2 [...] 1.32 K/ul 04/04/2016 Cbc With Differential Ord2 [place] ABS# 0.8 K/ul 04/04/2016 Cbc With Differential Ord2 Eos ABS# 0.2 K/ul 04/04/2016 Cbc With Differential Ord2 Baso ABS# 0.0 K/ul 04/04/2016 Comp Metabolic Iwp787 NA 140 mEq/L 04/04/2016 Comp Metabolic Jqp425 K 4.1 mEq/L 04/04/2016 Comp Metabolic Hlw175 CL 106 mEq/L 04/04/2016 Comp Metabolic Pco630 CO2 27.0 mEq/L 04/04/2016 Comp Metabolic Qnr435 AN ION GAP 11 04/04/2016 Comp Metabolic Ozf650 GL UCOSE 71 mg/dL 04/04/2016 Comp Metabolic Cku225 Cr eat 0.5 mg/dL 04/04/2016 Comp Metabolic Vnf931 eG FR 131 ml/min/1.73m2 03/10 Comp Metabolic Jqp778 BUN 14 mg/dL 04/04/2016 Comp Metabolic Hsi488 B/ C Ratio 28.6 Ratio 04/04/2016 Comp Metabolic Bes370 CA LCIUM 9.1 mg/dL 04/04/2016 Comp Metabolic Qvn177 AL K PHOS 42 U/L 04/04/2016 Comp Metabolic Qsi530 T(SGOT) 18 U/L 04/04/2016 Comp Metabolic Kxp683 AL T(SGPT) 17 U/L 04/04/2016 Comp Metabolic Ufp015 BI LI T 0.4 mg/dL 04/04/2016 Comp Metabolic Alv684 AL BUMIN 3.8 g/dL 04/04/2016 Comp Metabolic Lzi817 TP RO 6.0 g/dL 04/04/2016 Comp Metabolic Utm163 GL OB 2.2 g/dL 04/04/2016 Comp Metabolic Jsq938 A/ G Ratio 1.7 Ratio 04/04/2016 Comp Metabolic Fzg210 Os mo 278 mOsmo 04/04/2016 Urinalysis Ord28 [...] 29.6 pg 03/28/2016 Cbc With Differential Ord2 [place]% 11.7 % 03/28/2016 Cbc With Differential Ord2 [...] 1.14 K/ul 03/28/2016 Cbc With Differential Ord2 [place] ABS# 0.4 K/ul 03/28/2016 Cbc With Differential Ord2 Eos ABS# 0.1 K/ul 03/28/2016 Cbc With Differential Ord2 Baso ABS# 0.0 K/ul 03/28/2016 Cbc With Differential Ord2 New Analyzer Notice Please note new ref ranges s tarting 11-21-2015 due to implemntation of new five part differential hematolgy analyzer. 03/28/2016 Comp Metabolic Dph911 NA 137 mEq/L 03/28/2016 Comp Metabolic Fvo673 K 3.5 mEq/L 03/28/2016 Comp Metabolic Gzp652 CL 105 mEq/L 03/28/2016 Comp Metabolic Wfx969 CO2 27.0 mEq/L 03/28/2016 Comp Metabolic Acp711 AN ION GAP 9 03/28/2016 Comp Metabolic Cas803 GL UCOSE 174 mg/dL 03/28/2016 Comp Metabolic Mda787 Cr eat 0.5 mg/dL 03/28/2016 Comp Metabolic Xvz464 eG FR 131 ml/min/1.73m2 03/10 Comp Metabolic Imb812 BUN 13 mg/dL 03/28/2016 Comp Metabolic Jfx913 B/ C Ratio 26.5 Ratio 03/28/2016 Comp Metabolic Izc229 CA LCIUM 8.7 mg/dL 03/28/2016 Comp Metabolic Qyw610 AL K PHOS 31 U/L 03/28/2016 Comp Metabolic Khs033 T(SGOT) 20 U/L 03/28/2016 Comp Metabolic Ljd578 AL T(SGPT) 19 U/L 03/28/2016 Comp Metabolic Ifs358 BI LI T 0.4 mg/dL 03/28/2016 Comp Metabolic Dxy775 AL BUMIN 3.5 g/dL 03/28/2016 Comp Metabolic Ymw711 TP RO 5.3 g/dL 03/28/2016 Comp Metabolic Xbf332 GL OB 1.8 g/dL 03/28/2016 Comp Metabolic Jyk469 A/ G Ratio 2.0 Ratio 03/28/2016 Comp Metabolic Jta655 Os mo 278 mOsmo 03/28/2016 Urinalysis Ord28 [...] collection if refrigerated) 03/28/2016 Testosterone Free Direct [id number] FREE TESTOSTERONE <0.2 pg/mL 03/13/2016 Estradiol 948936 ESTRADI OL <5.0 pg/mL 03/12/2016 Progesterone Xjx611 Prog 0.56 ng/mL 03/10/2016 Homocyst(E)Ine Plasma 427929 HOMOCYSTEINE, TOTAL 10.9 umol/L 01/18/2016 Mthfr 300526 MTHFR C677T: HETEROZYGOUS MUTATION DETECTED 02/2016 Mthfr 808791 MTHFR A1298 C: HETEROZYGOUS MUTATION DETECTED 01/11/2016 Mthfr 434459 INTERPRETAT ION: 01/11/2016 Iodine Serum 763695 IOD INE, SERUM 131.0 ug/L 01/10/2016 Tsh Ord6 hTSH II 2.11 uIU/mL 01/07/2016 Comp Metabolic Ygk545 NA 139 mEq/L 01/07/2016 Comp Metabolic Epi440 K 4.0 mEq/L 01/07/2016 Comp Metabolic Nfx827 CL 104 mEq/L 01/07/2016 Comp Metabolic Iri578 CO2 26.0 mEq/L 01/07/2016 Comp Metabolic Rkz501 AN ION GAP 13 01/07/2016 Comp Metabolic Jwd763 GL UCOSE 86 mg/dL 01/07/2016 Comp Metabolic Kgb324 Cr eat 0.6 mg/dL 01/07/2016 Comp Metabolic Tah967 eG FR 100 ml/min/1.73m2 12/11 Comp Metabolic Ujw741 BUN 18 mg/dL 01/07/2016 Comp Metabolic Hjn815 B/ C Ratio 29.0 Ratio 01/07/2016 Comp Metabolic Lyv606 CA LCIUM 9.4 mg/dL 01/07/2016 Comp Metabolic Hzn590 AL K PHOS 40 U/L 01/07/2016 Comp Metabolic Zso999 T(SGOT) 20 U/L 01/07/2016 Comp Metabolic Naa383 AL T(SGPT) 24 U/L 01/07/2016 Comp Metabolic Ofo024 BI LI T 0.6 mg/dL 01/07/2016 Comp Metabolic Efw791 AL BUMIN 4.1 g/dL 01/07/2016 Comp Metabolic Hty842 TP RO 6.4 g/dL 01/07/2016 Comp Metabolic Ojr852 GL OB 2.3 g/dL 01/07/2016 Comp Metabolic Ngy696 A/ G Ratio 1.8 Ratio 01/07/2016 Comp Metabolic Vfa301 Os mo 279 mOsmo 01/07/2016 Lipid Ord30 [...] Ord28 U-Com Culture to follow 11/26/2015 Progesterone Fus036 Prog >40.00 ng/mL 11/26/2015 Testosterone Free Direct 275932 FREE TESTOSTERONE 0.6 pg/mL 10/01/2015 Estradiol 326734 ESTRADI OL <5.0 pg/mL 09/26/2015 Urinalysis Ord28 [...] Urinalysis Ord28 U-Yeast NEGATIVE 09/25/2015 Comp Metabolic Vga218 NA 142 mEq/L 09/25/2015 Comp Metabolic Ivp837 K 4.3 mEq/L 09/25/2015 Comp Metabolic Rpn424 CL 110 mEq/L 09/25/2015 Comp Metabolic Oyf855 CO2 23.0 mEq/L 09/25/2015 Comp Metabolic Gnv379 AN ION GAP 13 09/25/2015 Comp Metabolic Nuj383 GL UCOSE 76 mg/dL 09/25/2015 Comp Metabolic Ded908 Cr eat 0.8 mg/dL 09/25/2015 Comp Metabolic Ckh724 eG FR 79 ml/min/1.73m2 09/25 Comp Metabolic Mie707 BUN 17 mg/dL 09/25/2015 Comp Metabolic Kgo412 B/ C Ratio 22.4 Ratio 09/25/2015 Comp Metabolic Ikl047 CA LCIUM 9.4 mg/dL 09/25/2015 Comp Metabolic Ito595 AL K PHOS 45 U/L 09/25/2015 Comp Metabolic Ivt158 T(SGOT) 20 U/L 09/25/2015 Comp Metabolic Qqj791 AL T(SGPT) 18 U/L 09/25/2015 Comp Metabolic Iom125 BI LI T 0.5 mg/dL 09/25/2015 Comp Metabolic Wdf789 AL BUMIN 4.0 g/dL 09/25/2015 Comp Metabolic Nrs537 TP RO 6.2 g/dL 09/25/2015 Comp Metabolic Fwk654 GL OB 2.2 g/dL 09/25/2015 Comp Metabolic Ufx705 A/ G Ratio 1.8 Ratio 09/25/2015 Comp Metabolic Bzx355 Os mo 283 mOsmo 09/25/2015 Tsh Ord6 hTSH II 4.05 uIU/mL 09/25/2015 Progesterone Hvu226 Prog 21.38 ng/mL 09/25/2015 Free T4 Jim525 FREE T4 0.78 ng/dL 09/25/2015 Cbc With [...] RDW 14.3 % 09/25/2015 Testosterone Free Direct 681295 FREE TESTOSTERONE 1.2 pg/mL 08/31/2015 Estradiol 538282 ESTRADI OL <5.0 pg/mL 08/29/2015 Progesterone Ndg605 Prog 4.37 ng/mL 08/28/2015 Fungal Screen I 730556 * *ASPERGILLUS AB BY ID . 07/23/2015 Fungal Screen I 273212 A SPERGILLUS AB BY ID None Detected 015 Fungal Screen I 511453 * *BLASTOMYCES ANTIBODY BY CF & ID . 07/23/2015 Fungal Screen I 898222 B LASTOMYCES AB,CF <1:8 07/23/2015 Fungal Screen I 619334 B LASTOMYCES AB,ID None Detected 015 Fungal Screen I 728644 * *MAXINE ANTIBODY BY ID . 07/23/2015 Fungal Screen I 042907 C ANDIDA AB BY ID Detected 07/23/2015 Fungal Screen I 074154 * *COCCIDIOIDES ANTIBODIES, IGG & IGM . 07/23/2015 Fungal Screen I 050316 C OCCIDIOIDES AB IGM 0.3 IV 07/23/2015 Fungal Screen I 541776 C OCCIDIOIDES AB IGG 0.4 IV 07/23/2015 Fungal Screen I 948989 * *HISTOPLASMA ANTIBODY BY ID . 07/23/2015 Fungal Screen I 318282 H ISTOPLASMA ABS (ID) None Detected 015 Francisella Tularensis Abs 711553 F. TULARENSIS, IGG 0 U/mL 07/17/2015 Francisella Tularensis Abs 217882 F. TULARENSIS, IGM 0 U/mL 07/17/2015 Vitamin D 25 Oh Ftb6083 VITAMIN D, 25 HYDROXY 142.21 ng/mL 07/13/2015 Antistrptolysin-O Qualitative Siq787 ASO Negative 07/12/2015 B12 Mwf820 B12 956.00 pg/ml 07/12/2015 Cbc With Differential [...] Ord2 RDW 15.1 % 07/10/2015 Free T4 Zvz691 FREE T4 0.79 ng/dL 06/12/2015 Urinalysis Ord28 [...] Ord2 RDW 16.0 % 06/04/2015 Comp Metabolic Umn324 NA 139 mEq/L 06/04/2015 Comp Metabolic Cen731 K 3.9 mEq/L 06/04/2015 Comp Metabolic Vja096 CL 108 mEq/L 06/04/2015 Comp Metabolic Dda817 CO2 26.0 mEq/L 06/04/2015 Comp Metabolic Xvk489 AN ION GAP 9 06/04/2015 Comp Metabolic Whc819 GL UCOSE 74 mg/dL 06/04/2015 Comp Metabolic Ima889 Cr eat 0.6 mg/dL 06/04/2015 Comp Metabolic Not417 eG FR 102 ml/min/1.73m2 05/10 Comp Metabolic Pmx947 BUN 18 mg/dL 06/04/2015 Comp Metabolic Wkk841 B/ C Ratio 29.5 Ratio 06/04/2015 Comp Metabolic Mwf609 CA LCIUM 9.0 mg/dL 06/04/2015 Comp Metabolic Krf848 AL K PHOS 44 U/L 06/04/2015 Comp Metabolic Xbf798 T(SGOT) 22 U/L 06/04/2015 Comp Metabolic Tzs055 AL T(SGPT) 23 U/L 06/04/2015 Comp Metabolic Ftn187 BI LI T 0.4 mg/dL 06/04/2015 Comp Metabolic Usk518 AL BUMIN 4.0 g/dL 06/04/2015 Comp Metabolic Qqj883 TP RO 5.8 g/dL 06/04/2015 Comp Metabolic Iqo453 GL OB 1.8 g/dL 06/04/2015 Comp Metabolic Kds138 A/ G Ratio 2.2 Ratio 06/04/2015 Comp Metabolic Vgh352 Os mo 278 mOsmo 06/04/2015 Tsh Ord6 [...] None Full Exam - General 1995 Ears/Nose/Throat oral cavity/pharynx/larynx Overall: oral mucosa clear [...] clear 09/15/2018 None Full Exam - General 1995 Ears/Nose/Throat otoscopic exam Overall: tympanic membranes clear [...] 4: G0439 03/11/2016 THER/PROPH/DIAG INJ SC/IM CPT-4: 56110 12/27/2015 Vital Signs Date Vital 01/24/2019 Blood Pressure 1: 140/78 Code: 8480-6 BMI: 19.9 Code: 90968-3 Heart Rate 1: 84 bpm Height: 5' SpO2: 95% Weight: 102 lbs 01/10/2019 Blood Pressure 1: 126/62 Code: 8480-6 BMI: 19.9 Code: 02005-5 Heart Rate 1: 90 bpm Height: 5' SpO2: 94% Temperature: 36.6 (C ) / 97.8 (F) Weight: 102 lbs 11/25/2018 Blood Pressure 1: 128/74 Code: 8480-6 BMI: 19.7 Code: 97375-5 Heart Rate 1: 86 bpm Height: 5' SpO2: 97% Weight: 101 lbs 09/15/2018 Blood Pressure 1: 130/70 Code: 8480-6 BMI: 20.6 Code: 54902-5 Heart Rate 1: 75 bpm Height: 5' SpO2: 99% Weight: 105 lbs 8 oz 09/10/2018 Blood Pressure 1: 126/68 Code: 8480-6 BMI: 20.7 Code: 26060-4 Heart Rate 1: 63 bpm Height: 5' SpO2: 96% Waist Measure (cm): 66 cm Weight: 106 lbs 06/01/2018 Blood Pressure 1: 156/76 Code: 8480-6 BMI: 20.1 Code: 54600-6 Heart Rate 1: 68 bpm Height: 5' SpO2: 99% Weight: 103 lbs 05/24/2018 Blood Pressure 1: 120/60 Code: 8480-6 BMI: 20.5 Code: 16908-9 Heart Rate 1: 82 bpm Height: 5' SpO2: 98% Weight: 105 lbs 05/19/2018 Blood Pressure 1: 140/72 Code: 8480-6 BMI: 20.5 Code: 50703-7 Heart Rate 1: 96 bpm Height: 5' SpO2: 98% Weight: 105 lbs 01/12/2018 Blood Pressure 1: 146/78 Code: 8480-6 BMI: 21.1 Code: 17361-7 Heart Rate 1: 85 bpm Height: 5' SpO2: 95% Weight: 108 lbs 10/12/2017 Blood Pressure 1: 138/72 Code: 8480-6 BMI: 21.1 Code: 03616-5 Heart Rate 1: 96 bpm Height: 5' SpO2: 98% Weight: 108 lbs 08/06/2017 Blood Pressure 1: 130/78 Code: 8480-6 BMI: 20.5 Code: 31801-6 Heart Rate 1: 89 bpm Height: 5' SpO2: 98% Weight: 105 lbs 05/13/2017 Blood Pressure 1: 122/70 Code: 8480-6 BMI: 20.5 Code: 90926-8 Heart Rate 1: 80 bpm Height: 5' SpO2: 97% Weight: 105 lbs 03/19/2017 Blood Pressure 1: 138/80 Code: 8480-6 BMI: 20.5 Code: 20511-8 Heart Rate 1: 83 bpm Height: 5' SpO2: 97% Waist Measure (cm): 74 cm Weight: 105 lbs 03/18/2017 Blood Pressure 1: 138/80 Code: 8480-6 BMI: 20.5 Code: 41838-7 Heart Rate 1: 83 bpm Height: 5' SpO2: 97% Weight: 105 lbs 01/27/2017 Blood Pressure 1: 142/68 Code: 8480-6 BMI: 20.5 Code: 44066-5 Heart Rate 1: 69 bpm Height: 5' SpO2: 97% Weight: 105 lbs 12/29/2016 Blood Pressure 1: 154/82 Code: 8480-6 BMI: 20.1 Code: 81393-6 Heart Rate 1: 76 bpm Height: 5' SpO2: 94% Temperature: 37.4 (C ) / 99.4 (F) Weight: 103 lbs 11/19/2016 Blood Pressure 1: 134/74 Code: 8480-6 BMI: 19.7 Code: 52741-3 Heart Rate 1: 64 bpm Height: 5' Weight: 101 lbs 08/13/2016 Blood Pressure 1: 118/56 Code: 8480-6 BMI: 19.5 Code: 45768-8 Heart Rate 1: 64 bpm Height: 5' SpO2: 97% Weight: 100 lbs 07/03/2016 Blood Pressure 1: 120/68 Code: 8480-6 BMI: 19.1 Code: 62777-2 Heart Rate 1: 80 bpm Height: 5' SpO2: 98% Weight: 98 lbs 05/07/2016 Blood Pressure 1: 116/58 Code: 8480-6 BMI: 19.1 Code: 27136-9 Heart Rate 1: 79 bpm Height: 5' SpO2: 98% Weight: 98 lbs 04/08/2016 Blood Pressure 1: 118/58 Code: 8480-6 BMI: 19.0 Code: 49837-7 Heart Rate 1: 78 bpm Height: 5' SpO2: 98% Weight: 97 lbs 8 oz 03/11/2016 Blood Pressure 1: 102/60 Code: 8480-6 BMI: 19.7 Code: 61793-8 Heart Rate 1: 75 bpm Height: 5' SpO2: 94% Waist Measure (cm): 71 cm Weight: 101 lbs 12/27/2015 Blood Pressure 1: 128/72 Code: 8480-6 BMI: 20.2 Code: 70328-8 Heart Rate 1: 95 bpm Height: 5' SpO2: 98% Weight: 103 lbs 8 oz 09/24/2015 Blood Pressure 1: 136/70 Code: 8480-6 BMI: 19.1 Code: 71787-1 Heart Rate 1: 72 bpm Height: 5' SpO2: 97% Weight: 98 lbs 06/26/2015 Blood Pressure 1: 144/64 Code: 8480-6 BMI: 18.9 Code: 24317-3 Heart Rate 1: 77 bpm Height: 5' SpO2: 98% Weight: 97 lbs 04/10/2015 Blood Pressure 1: 132/88 Code: 8480-6 BMI: 18.9 Code: 16916-3 Heart Rate 1: 83 bpm Height: 5' [...] Episodes daily 01/24/2019 None Location in the [facility] 01/24/2019 None Onset and Resolution [...] me dication 11/25/2018 None hypertension Quality tari kebede hypertension 09/15/2018 None hypertension Onset and Resolution ongoing 09/15/2018 None hypertension Onset of Symptom during adulthood 09/15/2018 None hypertension Alleviating Factors medication 09/15/2018 None hypothyroid Quality button tufter deisy 09/15/2018 None hypothyroid Onset and Resolution [...] Alleviating Factors medication 05/19/2018 None hypothyroid Quality button tufter deisy 05/19/2018 None hypertension Quality tari kebede [...] Encounters Encounter Performer Loca tion Codes Date ([id number]) 38152 EST. P ATIENT, LEVEL IV Diagnosis: Essential (primary) hypertension[ICD10: I10] Diagnosis: Headache[ICD10: R51] Diagnosis: Atrophy of thyroid (acquired)[ICD10: E03.4] Diagnosis: Other forms of dyspnea[ICD10: R06.09] Kailee Moreira MD, [facility] CPT-4: 10969 01/24/2019 ([id number]) 57858 EST. P ATIENT, LEVEL III Diagnosis: Headache[ICD10: R51] Diagnosis: Nasal congestion[ICD10: R09.81] Marixa Moreira MD, [facility] CPT- 4: 84007 01/10/2019 ([id number]) 55832 EST. 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 P ATIENT, LEVEL IV Diagnosis: Essential (primary) hypertension[ICD10: I10] Diagnosis: Atrophy of thyroid (acquired)[ICD10: E03.4] Diagnosis: Low back pain[ICD10: M54.5] Diagnosis: Other specified noninflammatory disorders of vagina[ICD10: N89.8] Kailee Moreira MD, [facility] CPT-4: 43591 09/15/2018 ([id number]) 64123 EST. P ATIENT, LEVEL III Diagnosis: Dizziness and giddiness[ICD10: R42] Diagnosis: Allergic contact dermatitis due to plants, except food[ICD10: L23.7] Marixa Moreira MD, [facility] CPT-4: 98273 06/01/2018 ([id number]) 88275 EST. P ATIENT, LEVEL III Diagnosis: Allergic contact dermatitis due to plants, except food[ICD10: L23.7] Marixa Moreira MD, [facility] CPT-4: 32926 05/24/2018 ([id number]) 45736 EST. P ATIENT, LEVEL IV Diagnosis: Essential (primary) hypertension[ICD10: I10] Diagnosis: Atrophy of thyroid (acquired)[ICD10: E03.4] Diagnosis: Obstructive sleep apnea (adult) (pediatric)[ICD10: G47.33] Kailee Moreira MD, C CPT-4: 52188 05/19/2018 ([id number]) 45021 EST. P ATIENT, LEVEL IV Diagnosis: Essential (primary) hypertension[ICD10: I10] Diagnosis: Atrophy of thyroid (acquired)[ICD10: E03.4] Diagnosis: Low back pain[ICD10: M54.5] Kailee Moreira MD, [facility] CPT-4: 11012 01/12/2018 ([id number]) 10384 EST. P ATIENT, LEVEL III Diagnosis: Headache[ICD10: R51] Kailee Moreira MD, [facility] CPT-4: 23397 10/12/2017 ([id number]) 23922 EST. P ATIENT, LEVEL IV Diagnosis: Atrophy of thyroid (acquired)[ICD10: E03.4] Diagnosis: Essential (primary) hypertension[ICD10: I10] Diagnosis: Obstructive sleep apnea (adult) (pediatric)[ICD10: G47.33] Kailee Moreira MD, C CPT-4: 24411 08/06/2017 ([id number]) 27006 EST. 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 P ATIENT, LEVEL IV Diagnosis: Atrophy of thyroid (acquired)[ICD10: E03.4] Diagnosis: Essential (primary) hypertension[ICD10: I10] Diagnosis: Encounter for screening for other musculoskeletal disorder[ICD10: Z13.828] Diagnosis: Low back pain[ICD10: M54.5] Diagnosis: Transient alteration of awareness[ICD10: R40.4] Kailee Moreira MD, C CPT-4: 92239 03/18/2017 ([id number]) 62995 EST. P ATIENT, LEVEL IV Diagnosis: Atrophy of thyroid (acquired)[ICD10: E03.4] Diagnosis: Essential (primary) hypertension[ICD10: I10] Diagnosis: Low back pain[ICD10: M54.5] Kailee Moreira MD, [facility] CPT-4: 72312 01/27/2017 ([id number]) 93445 EST. P ATIENT, LEVEL III Diagnosis: Acute recurrent maxillary sinusitis[ICD10: J01.01] Marixa Moreira MD, [facility] CPT-4: 38874 12/29/2016 ([id number]) 50362 EST. P ATIENT, LEVEL IV Diagnosis: Atrophy of thyroid (acquired)[ICD10: E03.4] Diagnosis: Essential (primary) hypertension[ICD10: I10] Kailee Moreira MD, [facility] CPT-4: 04828 11/19/2016 ([id number]) 11727 EST. P ATIENT, LEVEL IV Diagnosis: Atrophy of thyroid (acquired)[ICD10: E03.4] Diagnosis: Enterocolitis due to Clostridium difficile[ICD10: A04.7] Diagnosis: Essential (primary) hypertension[ICD10: I10] Kailee Moreira MD, C CPT-4: 84061 08/13/2016 ([id number]) 80642 EST. P ATIENT, LEVEL IV Diagnosis: Essential (primary) hypertension[ICD10: I10] Diagnosis: Enterocolitis due to Clostridium difficile[ICD10: A04.7] Diagnosis: Hypothyroidism, unspecified[ICD10: E03.9] Diagnosis: Low back pain[ICD10: M54.5] Kailee Moreira MD, [facility] CPT-4: 21755 07/03/2016 ([id number]) 16290 EST. P ATIENT, LEVEL IV Diagnosis: Enterocolitis due to Clostridium difficile[ICD10: A04.7] Diagnosis: Lyme disease, unspecified[ICD10: A69.20] Kailee Moreira MD, C CPT-4: 05180 05/07/2016 ([id number]) 52834 EST. P ATIENT, LEVEL IV Diagnosis: Generalized abdominal rigidity[ICD10: R19.37] Diagnosis: Diarrhea, unspecified[ICD10: R19.7] Diagnosis: Lyme disease, unspecified[ICD10: A69.20] Kailee Moreira MD [facility] CPT-4: 25905 04/08/2016 ([id number]) 76952 EST. P ATIENT, LEVEL IV Diagnosis: Hypothyroidism, unspecified[ICD10: E03.9] Diagnosis: Lyme disease, unspecified[ICD10: A69.20] Diagnosis: Tachycardia, unspecified[ICD10: R00.0] Kailee Moreira MD, [facility] CPT-4: 61817 12/27/2015 ([id number]) 92952 EST. P ATIENT, LEVEL III Diagnosis: Essential (primary) hypertension[ICD10: I10] Diagnosis: Benign lipomatous neoplasm of skin and subcutaneous tissue of other sites[ICD10: D17.39] Diagnosis: Low back pain[ICD10: M54.5] Kailee Moreira MD, [facility] CPT-4: 01872 09/24/2015 ([id number]) 26444 EST. 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 01/24/2019 Appointment: Kailee Moreira WPtel: [phone] [facility] (30 min) Complex 01/24/2019 Patient Education: Patient Medication Summary Completed 01/24/2019 Patient Education: Hypertension Completed 01/24/2019 Appointment: Kailee Moreira WPtel: [facility]5 [facility] (15 min) Moderate 01/19/2019 Appointment: Nurse Visit 01/14/2019 Visit Plan: Headache -nasal congest ion-refill fioricet for prn use-kenalog injection today in the office -call if symptoms do not resolve or if any worse-patient verbalized understanding of plan. 01/10/2019 Appointment: Marixa Lakhani WPtel: [facility]0 [phone] (15 min) Moderate 01/10/2019 Patient Education: Patient [...] home. 11/25/2018 Appointment: Kailee Moreira WPtel: [phone] [facility] (15 min) Moderate 11/25/2018 Patient [...] the chiropractor. 09/15/2018 [phone] 30 [facility] appointments only in this [...] care surrogate. 09/10/2018 Appointment: Kiersten Armando WPtel: [phone] [id number] [facility] - Annual Wellness Visit 09/10/2018 Patient Education: Patient Medication Summary Completed 09/10/2018 Appointment: Injection 06/14/2018 Visit Plan: Contact dermatitis-disc ussed with Dr Moreira -rx for dexamethasone sent to patient's pharmacy and instructed on use-will also send rx for topical betamethsone -instructed patient to call if symptoms do not resolve or if any worse Rrqbgrhmf-DGF-legzhpbv fluids-monitor blood pressure- call if dizziness does not resolve or if any worse-patient and verbalized understanding 06/01/2018 Appointment: Mairxa Lakhani WPtel: [phone] (15 min) Moderate 06/01/2018 Patient Education: Patient Medication Summary Completed 06/01/2018 Visit Plan: Contact dermatitis due to poison magalys/oak-kenalog injection today- pt is to use topical treatments as directed. Pt is cleanse clothing in hot water with soap, and call if symptoms do not improve or if they worsen. 05/24/2018 Appointment: Marixa Lakhani WPtel: [phone] [phone] (15 min) Moderate 05/24/2018 Patient Education: Patient [...] when awakening. 05/19/2018 Appointment: Kailee Moreira WPtel: [facility] (30 min) Complex 05/19/2018 Patient [...] thighs bilaterally 01/12/2018 Appointment: Kailee Moreira WPtel: [phone] [facility] (15 min) Moderate 01/12/2018 Patient Education: Patient Medication Summary Completed 01/12/2018 Appointment: Kailee Moreira WPtel: [phone] [facility] [place] (15 min) Moderate 12/02/2017 Visit Plan: Headache - recommended patient to use PRN Fioricet for headaches - call if not improving. 10/12/2017 Appointment: Kailee Moreira WPtel: [phone] [facility] (15 min) Moderate 10/12/2017 Patient Education: Patient [...] apnea - order humidification for cpap - [place] home patient/[employer]- find out if they need [...] at home. 08/06/2017 Appointment: Kailee Moreira WPtel: [phone] [facility] [place] (15 min) Moderate 08/06/2017 Patient Education: Patient Medication Summary Completed 08/06/2017 Care Plan: Comp Metabolic Pending 08/06/2017 Care Plan: Tsh Pending 08/06/2017 Care Plan: Free T4 Pending 08/06/2017 Care Plan: Lipid Pending 08/06/2017 Care Plan: Cbc With Differential Pending 08/06/2017 Appointment: Kailee Moreira WPtel: [facility] (15 min) Moderate 07/21/2017 Visit Plan: Hypothyroidism [...] stop lisinopril. 05/13/2017 Appointment: Kailee Moreira WPtel: [id number] (15 min) Moderate 05/13/2017 Patient Education: Patient Medication Summary Completed 05/13/2017 Patient Education: Hypertension Completed 05/13/2017 Appointment: Kailee Moreira WPtel: [facility]1 [facility] (15 min) Moderate 05/06/2017 Visit Plan: Medicare [...] surrogate. 03/19/2017 Appointment: Kiersten Armando WPtel: [phone] [facility] [facility] - Annual Wellness Visit 03/19/2017 Patient [...] of control. p hysical therapy at [facility] - water therapy for back eeg - needs ordered at hospital. 03/18/2017 [facility]ment[phone] ([facility]) Moderate 03/18/2017 Patient Education: Patient Medication Summary Completed 03/18/2017 Visit Plan: Hypertension - well con marichuyed - continue with current medications, continue with [...] improve. 01/27/2017 Appointment: [phone] ([facility] min) Moderate 01/27/2017 Patient Education: Patient Medication Summary Completed 01/27/2017 Patient Education: Hypertension Completed 01/27/2017 Visit Plan: Sinusitis - Pt has acut e infection - pain in face, maxillary region, Pt informed to use decongestant, RX given to patient, sinus rinses also recommended. Call if symptoms do not show improvement. 12/29/2016 Appointment: Marixa Lakhani WPtel: [id number] [place] (30 min) Complex 12/29/2016 Patient Education: [...] control. 11/19/2016 App[facility]ment: [phone] (15 min) Moderate 11/19/2016 Patient Education: [...] improved. 08/13/2016 App[facility]ment: [phone] (15 min) Moderate 08/13/2016 Patient Education: Patient Medication Summary Completed 08/13/2016 Patient Education: Hypertension Completed 08/13/2016 [facility]ment: [phone] (30 min) Complex 07/31/2016 Visit Plan: [...] of control. 07/03/2016 Appointment: Kailee Moreira WPtel: [facility]5 [facility] (15 min) Moderate 07/03/2016 Patient Education: Patient Medication Summary Completed 07/03/2016 Patient Education: Hypertension Completed 07/03/2016 Visit Plan: Cdiff colitis - pt to [facility] repeat testing - if positive will have to repeat treatment. Continue with probiotic. Lymes disease - continue with treatment per Dr. Carrillo. alex sample x 18 days given to patient. 05/07/2016 Appointment: Kailee Moreira WPtel: [facility]5 [facility] (15 min) Moderate 05/07/2016 Patient Education: Patient Medication Summary Completed 05/07/2016 Visit Plan: Diarrhea - suspect the diarrhea is Cdiff related - check stool and treat with flagyl, probiotic to increase to three times daily - continue to hold iv antibiotic. Lyme disease - treating with iv antibiotics - on hold while she has diarrhea. 04/08/2016 Appointment: Kailee Moreira WPtel: [facility] [place] (15 min) Moderate 04/08/2016 Patient Education: Patient Medication Summary Completed 04/08/2016 Appointment: Kailee Moreira WPtel: [facility] ([facility] min) Moderate 04/03/2016 Visit Plan: [...] Completed 03/11/2016 App[facility]: [phone] (15 min) Moderate 01/24/2016 Visit Plan: [...] control. 12/27/2015 Appointment: [phone] (15 min) Moderate 12/27/2015 Patient Education: [...] not improve. 06/26/2015 Appointment: Kailee Moreira WPtel: [address] [place], [place] [id number] (15 min) Moderate 06/26/2015 Patient Education: Patient [...] spine Lymes disease-sees Dr Carrillo-lymes specialist in [place], [place] CAD-HX [id number] by Dr Hyde 04/10/2015 Appointment: (S) New [...] levels of control. physical therapy at [facility] - water therapy for back eeg [...] spine Lymes disease-sees Dr Carrillo-ly[facility] specialist in [place], [place] CAD-HX [id number] by Dr Mary Ellen linder injection to [...] apnea - order humidification for cpap - [place] home patient/[employer]- find out if they need [...] do not resolve or if any worse [id number] fluids-monitor blood pressure-call if dizziness does not [...] x 18 days given to patient. . Contact dermatitis due to poison magalys/oak-kenalog [...] aby appt Low blood pressure stop lisinopril. DOXYCYCLINE 100MG TW ICE DAILY X 7 DAYS . Sinusitis - Pt has acute infection - p ain in face, maxillary region, Pt informed to use decongestant, RX given to patient, sinus rinses also recommended. Call if symptoms do not show improvement.
--- OUTSIDE RECORDS SUMMARY | 2020-05-05 12:02 | XMS REPORT | CCD ---
Author Author Emily Lakhani Organization [facility] Address [address] [place] [address] Phone Care Team Providers Care Site Acquisition Manager Name Role Phone PP Unavailable CCM Unavailable Summary Purpose Interface Exchange Insurance Providers Payer name Policy type / Coverage type Covered constitution party ID Effective Begin Date Effective End Date WPS Medicare Part B Medicare Part B [id number] Unknown [employer] [place] [employer] Medicare Part B [id number] Unknown Family history Mother Diagnosis Age At [...] Retir ed 04/10/[address]: 388654626 Never smoker 04/10/[address]: 926436129 Never drinks alcohol 04/10/2015 Allergies, Adverse Reactions, [...] Codes Instruc tions Start Date Stop Date Fill Instructions Ventolin HFA 90 mcg/ actuation aerosol inhaler RxNorm: 5706123 1 INH TID as needed dyspnea 01/24/2019 08/21/2019 Active Fioricet 50 mg-300 m g-40 mg capsule RxNorm: 5543609 1 Capsule(s) PO Q8 P RN as needed for headache 01/10/2019 No Stop Date Active dexamethasone 4 mg t ablet RxNorm: 473309 1 Tablet(s) PO daily 01/10/2019 01/09/2019 Inactive to be started on 01-11-19 Kenalog 40 mg/mL sadiq pension for injection RxNorm: 6468109 Milliliter(s) Inj 01/10/2019 01/10/2019 In active dexamethasone 4 mg t ablet RxNorm: 644215 1 Tablet(s) PO daily 01/10/2019 01/14/2019 Inactive to be started on 01-11-19 cyclobenzaprine 5 mg tablet RxNorm: 728998 1 Tablet(s) PO TID 12/14/2018 12/20/2018 Inactive cyclobenzaprine 5 mg tablet RxNorm: 845050 1 Tablet(s) PO TID 12/14/2018 12/13/2018 Inactive [place] Thyroid 90 mg tablet RxNorm: 588894 Tablet(s) 1/2 TABLET( S) PO DAILY 11/18/2018 02/10/2020 Ac tive [place] Thyroid 60 mg tablet RxNorm: 653192 1 Tablet(s) PO 3 x we ek Tue Thur Sun 11/17/2018 11/17/2018 In active hold until she is ready to refill [place] Thyroid 30 mg tablet RxNorm: 118331 1 Tablet(s) PO 4 time s a week Thu SAT 11/17/2018 11/16/2018 Inactive Please fill now- she will use her curren t supply of 60mg until she needs refill [place] Thyroid 30 mg tablet RxNorm: 301086 1 Tablet(s) PO 4 time s a week Thu SAT 11/17/2018 11/17/2018 Inactive Please fill now- she will use her curren t supply of 60mg until she needs refill Flagyl 500 mg tablet RxNorm: 361151 1 Tablet(s) PO TID 2018 10/17/2018 Inactive Flagyl 500 mg tablet RxNorm: 927181 1 Tablet(s) PO TID 10/06/2018 10/05/2018 Inactive Flagyl 500 mg tablet RxNorm: 927499 1 Tablet(s) PO TID 10/06/2018 10/10/2018 Inactive cefdinir 300 mg capsule RxNorm: 595117 1 Capsule(s) PO BID 09/29/2018 10/05/2018 Inactive cefdinir 300 mg capsule RxNorm: 694572 1 Capsule(s) PO BID 09/29/2018 09/28/2018 Inactive estradiol 0.01% (0.1 mg/gram) vaginal cream RxNorm: 321086 1 Gram(s) VAG BIW 09/15/2018 03/13/2019 Ac tive Imitrex 50 mg tablet RxNorm: 874362 TAKE WITH ONSET OF MIGRAINE- MAY TAKE AN ADDITIONAL DOSE IF NO RELIEF OF HEADACHE IN 1 HOUR- MAX OF 3 DOSES IN 24 HOURS Tablet(s) 06/14/2018 No Stop Date Active betamethasone gwendolyn te 0.1 % topical cream RxNorm: 824225 1 Application TOP TID 06/01/2018 06/10/2018 In active dexamethasone 4 mg t ablet RxNorm: 222888 1 Tablet(s) PO daily 06/01/2018 06/05/2018 Inactive Kenalog 40 mg/mL sadiq pension for injection RxNorm: 2399012 1.5 Milliliter(s) In j 05/24/2018 05/24/2018 In active amitriptyline 10 mg tablet RxNorm: 685111 1/2 TO 1 TABLET(S) PO QPM 01/21/2018 09/14/2018 Inactive [place] Thyroid 60 mg tablet RxNorm: 355000 1 Tablet(s) PO daily 01/12/2018 11/16/2018 Inactive carvedilol 3.125 mg tablet RxNorm: 535537 1 Tablet(s) PO BID 10/12/2017 No Stop Date Active Fiorinal-Codeine #3 30 mg-50 mg-325 mg-40 mg capsule RxNorm: 404275 1 Capsule(s) PO BID 10/12/2017 11/10/2017 Inactive progesterone microni zed 100 mg capsule RxNorm: 385694 1 Capsule(s) PO daily on days 1- 25 of each month 10/12/2017 01/11/2018 Inactive [place] Thyroid 90 mg tablet RxNorm: 494203 1/2 Tablet(s) PO melinda y 1/2 TABLET(S) PO DAILY 08/06/2017 01/11/2018 Inactive [place] Thyroid 90 mg tablet RxNorm: 830203 1/2 TABLET(S) PO DAILY 07/14/2017 08/05/2017 Inactive Keppra 500 mg tablet RxNorm: 960786 1 Tablet(s) PO BID 05/13/2017 08/05/2017 Inactive Deplin (algal oil) 1 5 mg-90.314 mg capsule RxNorm: TAKE ONE CAPSULE BY MOUTH O NE TIME DAILY 05/13/2017 01/11/2018 Inactive Keppra 250 mg tablet RxNorm: 819213 1 Tablet(s) PO daily 04/23/2017 04/22/2017 Inactive take 1 tab qd x 1 week then increase to BID Keppra 250 mg tablet RxNorm: 112584 1 Tablet(s) PO daily 04/23/2017 05/12/2017 Inactive take 1 tab qd x 1 week then increase to BID cyclobenzaprine 5 mg tablet RxNorm: 794628 1 Tablet(s) PO TID as needed 02/03/2017 02/22/2017 In active cyclobenzaprine 5 mg tablet RxNorm: 877380 1 Tablet(s) PO TID as needed 02/03/2017 02/02/2017 In active [place] Thyroid 90 mg tablet RxNorm: 058090 1/2 Tablet(s) PO daily 11/19/2016 03/18/2017 Inactive amitriptyline 10 mg tablet RxNorm: 514109 1/2 to 1 Tablet(s) PO QPM 11/19/2016 11/13/2017 Inactive fluconazole 50 mg ta blet RxNorm: 230618 1 Tablet(s) PO daily 08/20/2016 09/02/2016 Inactive [place] Thyroid 90 mg tablet RxNorm: 160375 1/2 Tablet(s) PO daily 08/11/2016 11/18/2016 Inactive Flagyl 500 mg tablet RxNorm: 216552 1 Tablet(s) PO TID 07/28/2016 01/11/2018 Inactive Flagyl 500 mg tablet RxNorm: 678008 1 Tablet(s) PO TID 07/17/2016 07/27/2016 Inactive amitriptyline 10 mg tablet RxNorm: 924918 1/2 to 1 Tablet(s) PO QPM 07/03/2016 10/30/2016 Inactive metronidazole 500 mg tablet RxNorm: 128216 1 Tablet(s) PO QID 07/03/2016 07/12/2016 Inactive amitriptyline 25 mg tablet RxNorm: 420181 1/2 -1 Tablet(s) PO Q HS as needed insomnia 06/26/2016 07/02/2016 Inactive vancomycin 125 mg ca psule RxNorm: 666486 1 Capsule(s) PO QID 06/20/2016 06/29/2016 Inactive [place] Thyroid 30 mg tablet RxNorm: 296691 1.5 Tablet(s) PO daily 06/20/2016 06/19/2016 Inactive [place] Thyroid 30 mg tablet RxNorm: 636376 1.5 Tablet(s) PO daily 06/20/2016 08/10/2016 Inactive fluconazole 50 mg ta blet RxNorm: 573886 1 Tablet(s) PO daily 06/16/2016 08/19/2016 Inactive amitriptyline 25 mg tablet RxNorm: 448397 1/2 -1 Tablet(s) PO Q HS as needed insomnia 06/12/2016 06/11/2016 Inactive amitriptyline 25 mg tablet RxNorm: 529152 1/2 -1 Tablet(s) PO Q HS as needed insomnia 06/12/2016 06/25/2016 Inactive vancomycin 125 mg ca psule RxNorm: 285726 1 Capsule(s) PO QID 06/12/2016 06/19/2016 Inactive fluconazole 50 mg ta blet RxNorm: 826713 1 Tablet(s) PO daily 06/12/2016 06/15/2016 Inactive Diflucan 150 mg tablet RxNorm: 351336 1 Tablet(s) PO daily 06/05/2016 06/09/2016 Inactive Deplin (algal oil) 1 5 mg-90.314 mg capsule RxNorm: 1 Capsule(s) PO daily 06/05/2016 06/04/2016 In active Diflucan 150 mg tablet RxNorm: 772886 1 Tablet(s) PO daily 06/05/2016 06/04/2016 Inactive Deplin (algal oil) 1 5 mg-90.314 mg capsule RxNorm: 1 Capsule(s) PO daily 06/05/2016 05/12/2017 In active nystatin 500,000 uni t tablet RxNorm: 594379 4 Tablet(s) PO daily 05/21/2016 09/17/2016 Inactive Vitamin D3 5,000 uni t tablet RxNorm: 395345 Tablet(s) PO daily 05/07/2016 No Stop Date Active nystatin 500,000 uni t tablet RxNorm: 826021 1 Tablet(s) PO Q4H 05/07/2016 05/20/2016 Inactive fluconazole 100 mg t ablet RxNorm: 112808 1 Tablet(s) PO daily 05/07/2016 06/11/2016 Inactive progesterone microni zed 100 mg capsule RxNorm: 894517 3 Capsule(s) PO daily on days 1- 25 of each month 05/07/2016 2017 Inactive metronidazole 500 mg tablet RxNorm: 411934 1 Tablet(s) PO TID 04/30/2016 05/09/2016 Inactive metronidazole 500 mg tablet RxNorm: 596952 1 Tablet(s) PO TID 04/30/2016 04/29/2016 Inactive vancomycin 125 mg ca psule RxNorm: 577655 1 Capsule(s) PO QID 04/29/2016 05/08/2016 Inactive vancomycin 125 mg ca psule RxNorm: 796896 1 Capsule(s) PO QID 04/29/2016 04/28/2016 Inactive Flagyl 500 mg tablet RxNorm: 667778 1 Tablet(s) PO TID 04/09/2016 04/08/2016 Inactive Flagyl 500 mg tablet RxNorm: 183404 1 Tablet(s) PO TID 04/09/2016 04/22/2016 Inactive carvedilol 3.125 mg tablet RxNorm: 226544 1 Tablet(s) PO BID 04/08/2016 2017 Inactive [place] Thyroid 60 mg tablet RxNorm: 889067 Tablet(s) PO 1 Tablet (s) daily 01/31/2016 06/19/2016 In active Pt request 90 day supply 11/23/2015 11:1 1:54 AM [place] Thyroid 30 mg tablet RxNorm: 967303 1 Tablet(s) daily 01/28/2016 01/30/2016 Inactive Pt request 90 day supply 11/23/2015 11:1 1:54 AM [place] Thyroid 30 mg tablet RxNorm: 491589 1 Tablet(s) daily 01/21/2016 01/27/2016 Inactive Pt request 90 day supply 11/23/2015 11:1 1:54 AM [place] Thyroid 30 mg tablet RxNorm: 922733 Tablet(s) TAKE ONE AN D ONE-HALF (45 MG) TABLET BY MOUTH EVERY DAY 01/02/2016 01/20/2016 Inactive Pt request 90 day supply 11/23/2015 11:11:54 AM Xylocaine 20 mg/mL ( 2 %) injection solution RxNorm: 9971345 2.5 Milliliter(s) In j BID with cefepime 12/27/2015 01/25/2016 Inactive cefepime 1 gram solu tion for injection RxNorm: 9095039 Inj 12/1012/27/2015 Inactive [place] Thyroid 30 mg tablet RxNorm: 358134 TAKE ONE TABLET BY [facility] EVERY DAY 11/23/2015 01/01/2016 In active Pt request 90 day supply 11/23/2015 11:1 1:54 AM Voltaren 1 % topical gel RxNorm: 488838 2 Gram(s) TOP QID 09/24/2015 12/26/2015 Inactive cyclobenzaprine 10 m g tablet RxNorm: 974788 1 Tablet(s) PO Q6 as needed 08/27/2015 05/06/2016 In active [place] Thyroid 30 mg tablet RxNorm: 145663 1 Tablet(s) PO daily 06/21/2015 06/20/2015 Inactive [place] Thyroid 30 mg tablet RxNorm: 143339 1 Tablet(s) PO daily 06/21/2015 11/22/2015 Inactive Synthroid 25 mcg tablet RxNorm: 925064 1 Tablet(s) PO daily 06/07/2015 06/06/2015 Inactive [facility]ASE[facility]-1 Synthroid 25 mcg tablet RxNorm: 230691 1 Tablet(s) PO daily 06/07/2015 06/20/2015 Inactive [facility]-1 ofloxacin 0.3 % ear drops RxNorm: 371681 1-2 Drop(s) OTIC OU Q 4H as needed No Start Date Active Aspirin Low Dose 81 mg tablet,delayed release RxNorm: 755057 1 Tablet(s) PO daily No Start Date Active tyrosine (bulk) powder RxNorm: 1 Miscellaneous dash every am No Start Date Active arginine (L-arginine ) oral RxNorm: 1091 oral No Sta rt Date Active glutathione RxNorm: 4890 miscellaneous No Start Date Active Plaquenil 200 mg tablet RxNorm: 857286 1 Tablet(s) PO BID No Start Date 05/19/2016 Inactive fluconazole 100 mg t ablet RxNorm: 764195 1/2 Tablet(s) PO daily No Start Date 05/06/2016 Inactive fluconazole 150 mg t ablet RxNorm: 235938 1 Tablet(s) PO QW x4 No Start Date 12/26/2015 Inactive progesterone microni zed 100 mg capsule RxNorm: 206223 2 Capsule(s) PO daily No Start Date 05/06/2016 Inactive nystatin 500,000 uni t tablet RxNorm: 882908 1 Tablet(s) PO QID No Start Date 05/06/2016 Inactive cyclobenzaprine 10 m g tablet RxNorm: 280210 1 Tablet(s) PO Q6 as needed No Start Date 08/26/2015 Inactive vitamin K oral RxNorm: 8308 oral No Start Date 12/26/2015 Inactive carvedilol 3.125 mg tablet RxNorm: 306183 1 Tablet(s) PO daily No Start Date 04/07/2016 Inactive lisinopril 5 mg tablet RxNorm: 088690 1 Tablet(s) PO daily No Start Date 05/12/2017 Inactive azithromycin 250 mg tablet RxNorm: 316332 1 Tablet(s) PO daily will incrase to 2 per day No Start Date 12/26/2015 Inactive Probiotic 4X oral RxNorm: 9452325 oral No Start Date 01/07/2016 Inactive Imitrex 50 mg tablet RxNorm: 995402 TAKE WITH ONSET OF MIGRAINE- MAY TAKE AN ADDITIONAL DOSE IF NO RELIEF OF HEADACHE IN 1 HOUR- MAX OF 3 DOSES IN 24 HOURS No Start Date 06/13/2018 Inactive Vitamin D3 1,000 uni t tablet RxNorm: 363272 Tablet(s) PO daily No Start Date 05/06/2016 Inactive progesterone microni zed 100 mg capsule RxNorm: 379003 3 Capsule(s) PO daily rx from [facility] No Start Date 12/26/2015 Inactive lorazepam 0.5 mg tablet RxNorm: 574258 1/2-1 Tablet(s) PO daily as needed No Start Date 03/10/2016 Inactive Multiple Vitamin oral RxNorm: 12073 oral No Start Date 05/06/2016 Inactive Medication Administered Medication Codes Instruc tions Start Date Status Kenalog 40 mg/mL suspension for injection RxNorm: 8692411 Milliliter 01/10/2019 No longer Active Kenalog 40 mg/mL suspension for injection RxNorm: 6130556 1.5Milliliter 05/24/2018 No longer Active cefepime 1 gram solution for injection RxNorm: 2838888 12/27/2015 No longer A ctive Immunizations No [...] Result Date Cbc With Differential Ord2 WBC 4.76 K/ul [...] 30.4 pg 02/18/2019 Cbc With Differential Ord2 Carver% 15.5 % 02/18/2019 Cbc With Differential Ord2 [...] 1.30 K/ul 02/18/2019 Cbc With Differential Ord2 [place] ABS# 0.7 K/ul 02/18/2019 Cbc With Differential Ord2 Eos ABS# 0.2 K/ul 02/18/2019 Cbc With Differential Ord2 Baso ABS# 0.0 K/ul 02/18/2019 Comp Metabolic Yic176 NA 145 mEq/L 06/14/2018 Comp Metabolic Tot616 K 4.0 mEq/L 06/14/2018 Comp Metabolic Mlw639 CL 106 mEq/L 06/14/2018 Comp Metabolic Zie295 CO2 31.0 mEq/L 06/14/2018 Comp Metabolic Rmo495 AN ION GAP 12 06/14/2018 Comp Metabolic Uvj510 GL UCOSE 88 mg/dL 06/14/2018 Comp Metabolic Ydo826 Cr eat 0.7 mg/dL 06/14/2018 Comp Metabolic Meq232 eG FR 92 ml/min/1.73m2 06/14 Comp Metabolic Hdz324 BUN 9 mg/dL 06/14/2018 Comp Metabolic Woh401 B/ C Ratio 13.6 Ratio 06/14/2018 Comp Metabolic Pjs898 CA LCIUM 9.0 mg/dL 06/14/2018 Comp Metabolic Gaf374 AL K PHOS 36 U/L 06/14/2018 Comp Metabolic Buc126 T(SGOT) 21 U/L 06/14/2018 Comp Metabolic Kqv907 AL T(SGPT) 22 U/L 06/14/2018 Comp Metabolic Kal441 BI LI T 0.3 mg/dL 06/14/2018 Comp Metabolic Pfl557 AL BUMIN 3.8 g/dL 06/14/2018 Comp Metabolic Kky761 TP RO 5.8 g/dL 06/14/2018 Comp Metabolic Zkn089 GL OB 2.0 g/dL 06/14/2018 Comp Metabolic Avj306 A/ G Ratio 2.0 Ratio 06/14/2018 Comp Metabolic Zvl106 Os mo 287 mOsmo 06/14/2018 Free T4 Iyu401 FREE T4 0.66 ng/dL 06/14/2018 Tsh Ord6 [...] 29.8 pg 06/14/2018 Cbc With Differential Ord2 Carver% 13.9 % 06/14/2018 Cbc With Differential Ord2 [...] 1.40 K/ul 06/14/2018 Cbc With Differential Ord2 [place] ABS# 0.6 K/ul 06/14/2018 Cbc With Differential Ord2 Eos ABS# 0.2 K/ul 06/14/2018 Cbc With Differential Ord2 Baso ABS# 0.0 K/ul 06/14/2018 Free T4 Znc115 FREE T4 0.63 ng/dL 01/05/2018 Lipid Ord30 CHOL 246 mg/dL 01/05/2018 Lipid Ord30 HDL 79.0 mg/dl 01/05/2018 Lipid Ord30 TRIG 124 mg/dL 01/05/2018 Lipid Ord30 LDL 142 mg/dL 01/05/2018 Lipid Ord30 C/HDL 3.1 Ratio 01/05/2018 Tsh Ord6 TSH (3rd IS) 1.48 uIU/mL 01/05/2018 Tsh Ord6 hTSH II 2.03 uIU/mL 08/07/2017 Comp Metabolic Uvm455 NA 142 mEq/L 08/07/2017 Comp Metabolic Jdo678 K 4.1 mEq/L 08/07/2017 Comp Metabolic Ybm309 CL 105 mEq/L 08/07/2017 Comp Metabolic Ipd449 CO2 27.0 mEq/L 08/07/2017 Comp Metabolic Ngl659 AN ION GAP 14 08/07/2017 Comp Metabolic Nfn261 GL UCOSE 89 mg/dL 08/07/2017 Comp Metabolic Yxl540 Cr eat 0.7 mg/dL 08/07/2017 Comp Metabolic Ucu976 eG FR 86 ml/min/1.73m2 08/07 Comp Metabolic Sph568 BUN 16 mg/dL 08/07/2017 Comp Metabolic Hfz836 B/ C Ratio 22.9 Ratio 08/07/2017 Comp Metabolic Ano437 CA LCIUM 9.8 mg/dL 08/07/2017 Comp Metabolic Swl118 AL K PHOS 41 U/L 08/07/2017 Comp Metabolic Pqe298 T(SGOT) 26 U/L 08/07/2017 Comp Metabolic Ijv531 AL T(SGPT) 21 U/L 08/07/2017 Comp Metabolic Fnw853 BI LI T 0.5 mg/dL 08/07/2017 Comp Metabolic Xra388 AL BUMIN 4.3 g/dL 08/07/2017 Comp Metabolic Shw112 TP RO 6.6 g/dL 08/07/2017 Comp Metabolic Zhl981 GL OB 2.3 g/dL 08/07/2017 Comp Metabolic Vsf081 A/ G Ratio 1.9 Ratio 08/07/2017 Comp Metabolic Zur208 Os mo 284 mOsmo 08/07/2017 Free T4 Cpp459 FREE T4 0.64 ng/dL 08/07/2017 Lipid Ord30 [...] 30.3 pg 08/07/2017 Cbc With Differential Ord2 Carver% 13.9 % 08/07/2017 Cbc With Differential Ord2 [...] 1.49 K/ul 08/07/2017 Cbc With Differential Ord2 [place] ABS# 0.6 K/ul 08/07/2017 Cbc With Differential [...] 30.5 pg 11/20/2016 Cbc With Differential Ord2 Carver% 10.8 % 11/20/2016 Cbc With Differential Ord2 [...] 1.62 K/ul 11/20/2016 Cbc With Differential Ord2 [place] ABS# 0.5 K/ul 11/20/2016 Cbc With Differential Ord2 Eos ABS# 0.2 K/ul 11/20/2016 Cbc With Differential Ord2 Baso ABS# 0.0 K/ul 11/20/2016 Free T4 Dxj661 FREE T4 0.80 ng/dL 11/20/2016 Tsh Ord6 hTSH II 1.35 uIU/mL 11/20/2016 Comp Metabolic Rcg815 NA 139 mEq/L 11/20/2016 Comp Metabolic Ijx435 K 3.9 mEq/L 11/20/2016 Comp Metabolic Rwy913 CL 103 mEq/L 11/20/2016 Comp Metabolic Sbp508 CO2 30.0 mEq/L 11/20/2016 Comp Metabolic Tpw353 AN ION GAP 10 11/20/2016 Comp Metabolic Bay437 GL UCOSE 85 mg/dL 11/20/2016 Comp Metabolic Auw965 Cr eat 0.7 mg/dL 11/20/2016 Comp Metabolic Gdq359 eG FR 93 ml/min/1.73m2 11/20 Comp Metabolic Oku747 BUN 12 mg/dL 11/20/2016 Comp Metabolic Wrt125 B/ C Ratio 18.2 Ratio 11/20/2016 Comp Metabolic Bnl817 CA LCIUM 9.1 mg/dL 11/20/2016 Comp Metabolic Uff212 AL K PHOS 34 U/L 11/20/2016 Comp Metabolic Lfi113 T(SGOT) 18 U/L 11/20/2016 Comp Metabolic Qou088 AL T(SGPT) 14 U/L 11/20/2016 Comp Metabolic Gak629 BI LI T 0.5 mg/dL 11/20/2016 Comp Metabolic Ffm110 AL BUMIN 4.2 g/dL 11/20/2016 Comp Metabolic Dkr803 TP RO 6.3 g/dL 11/20/2016 Comp Metabolic Nmq420 GL OB 2.1 g/dL 11/20/2016 Comp Metabolic Qug116 A/ G Ratio 2.0 Ratio 11/20/2016 Comp Metabolic Rap749 Os mo 277 mOsmo 11/20/2016 Lipid Ord30 CHOL 189 mg/dL 11/20/2016 Lipid Ord30 HDL 81.0 mg/dl 11/20/2016 Lipid Ord30 TRIG 77 mg/dL 11/20/2016 Lipid Ord30 LDL 93 mg/dL 11/20/2016 Lipid Ord30 C/HDL 2.3 Ratio 11/20/2016 Testosterone Free Direct 369402 FREE TESTOSTERONE 0.7 pg/mL 10/06/2016 Estradiol 443799 ESTRADI OL 5.9 pg/mL 10/03/2016 Cortisol 992408 CORTISOL 23 ug/dL 10/03/2016 Progesterone Ykt577 Prog 17.38 ng/mL 10/01/2016 Free T4 Dxd363 FREE T4 0.66 ng/dL 08/13/2016 Tsh Ord6 hTSH II 0.99 uIU/mL 08/13/2016 Testosterone Free Direct 058714 FREE TESTOSTERONE <0.2 pg/mL 07/05/2016 Estradiol 625715 ESTRADI OL <5.0 pg/mL 07/03/2016 Progesterone Cqn276 Prog 23.37 ng/mL 07/02/2016 Tsh Ord6 hTSH II 0.24 uIU/mL 06/17/2016 Free T4 Bjq534 FREE T4 0.86 ng/dL 06/17/2016 Estradiol 637240 ESTRADI OL <5.0 pg/mL 05/21/2016 Comp Metabolic Nub978 NA 140 mEq/L 05/20/2016 Comp Metabolic Arb828 K 4.1 mEq/L 05/20/2016 Comp Metabolic Tia588 CL 106 mEq/L 05/20/2016 Comp Metabolic Qdu249 CO2 26.0 mEq/L 05/20/2016 Comp Metabolic For692 AN ION GAP 12 05/20/2016 Comp Metabolic Mfv498 GL UCOSE 81 mg/dL 05/20/2016 Comp Metabolic Vox745 Cr eat 0.5 mg/dL 05/20/2016 Comp Metabolic Uqx723 eG FR 119 ml/min/1.73m2 05/09 Comp Metabolic Naa377 BUN 15 mg/dL 05/20/2016 Comp Metabolic Poe306 B/ C Ratio 28.3 Ratio 05/20/2016 Comp Metabolic Juf520 CA LCIUM 8.9 mg/dL 05/20/2016 Comp Metabolic Qov564 AL K PHOS 36 U/L 05/20/2016 Comp Metabolic Bdq998 T(SGOT) 25 U/L 05/20/2016 Comp Metabolic Hkm134 AL T(SGPT) 23 U/L 05/20/2016 Comp Metabolic Iqk727 BI LI T 0.4 mg/dL 05/20/2016 Comp Metabolic Fzm213 AL BUMIN 3.7 g/dL 05/20/2016 Comp Metabolic Oho226 TP RO 5.9 g/dL 05/20/2016 Comp Metabolic Azm032 GL OB 2.2 g/dL 05/20/2016 Comp Metabolic Oqf618 A/ G Ratio 1.7 Ratio 05/20/2016 Comp Metabolic Vla885 Os mo 279 mOsmo 05/20/2016 Progesterone Ohz828 Prog 8.44 ng/mL 05/20/2016 Cbc With Differential [...] 30.2 pg 05/20/2016 Cbc With Differential Ord2 Carver% 13.0 % 05/20/2016 Cbc With Differential Ord2 [...] 0.85 K/ul 05/20/2016 Cbc With Differential Ord2 [place] ABS# 0.6 K/ul 05/20/2016 Cbc With Differential [...] collection if refrigerated) 05/20/2016 Testosterone Free Direct 385017 FREE TESTOSTERONE 0.6 pg/mL 05/19/2016 Estradiol 164011 ESTRADI OL <5.0 pg/mL 05/16/2016 Comp Metabolic Ntz995 NA 140 mEq/L 05/15/2016 Comp Metabolic Djw979 K 3.8 mEq/L 05/15/2016 Comp Metabolic Nyv593 CL 106 mEq/L 05/15/2016 Comp Metabolic Jes625 CO2 26.0 mEq/L 05/15/2016 Comp Metabolic Vdh273 AN ION GAP 12 05/15/2016 Comp Metabolic Euo751 GL UCOSE 77 mg/dL 05/15/2016 Comp Metabolic Qje576 Cr eat 0.5 mg/dL 05/15/2016 Comp Metabolic Ovr055 eG FR 144 ml/min/1.73m2 05/2016 Comp Metabolic Cci757 BUN 18 mg/dL 05/15/2016 Comp Metabolic Ase850 B/ C Ratio 40.0 Ratio 05/15/2016 Comp Metabolic Rpa337 CA LCIUM 8.8 mg/dL 05/15/2016 Comp Metabolic Tqo725 AL K PHOS 28 U/L 05/15/2016 Comp Metabolic Eec587 T(SGOT) 19 U/L 05/15/2016 Comp Metabolic Nwn687 AL T(SGPT) 19 U/L 05/15/2016 Comp Metabolic Rob587 BI LI T 0.5 mg/dL 05/15/2016 Comp Metabolic Drh806 AL BUMIN 3.6 g/dL 05/15/2016 Comp Metabolic Vdw648 TP RO 5.6 g/dL 05/15/2016 Comp Metabolic Nax741 GL OB 2.0 g/dL 05/15/2016 Comp Metabolic Ljx128 A/ G Ratio 1.8 Ratio 05/15/2016 Comp Metabolic Twv070 Os mo 280 mOsmo 05/15/2016 Progesterone Wis945 Prog 9.08 ng/mL 05/15/2016 Cbc With Differential [...] 29.9 pg 05/15/2016 Cbc With Differential Ord2 Carver% 14.1 % 05/15/2016 Cbc With Differential Ord2 [...] 1.42 K/ul 05/15/2016 Cbc With Differential Ord2 [place] ABS# 0.6 K/ul 05/15/2016 Cbc With Differential [...] Ord28 U-Com None 05/15/2016 Testosterone Free Direct [id number] FREE TESTOSTERONE 0.2 pg/mL 05/09/2016 Estradiol 412303 ESTRADI OL <5.0 pg/mL 05/07/2016 Comp Metabolic Cbr107 NA 141 mEq/L 05/06/2016 Comp Metabolic Osv095 K 3.6 mEq/L 05/06/2016 Comp Metabolic Hjy403 CL 107 mEq/L 05/06/2016 Comp Metabolic Kom452 CO2 28.0 mEq/L 05/06/2016 Comp Metabolic Cmu767 AN ION GAP 10 05/06/2016 Comp Metabolic Ffx736 GL UCOSE 138 mg/dL 05/06/2016 Comp Metabolic Uhn552 Cr eat 0.5 mg/dL 05/06/2016 Comp Metabolic Jmh965 eG FR 119 ml/min/1.73m2 04/10 Comp Metabolic Swl881 BUN 16 mg/dL 05/06/2016 Comp Metabolic Mpv301 B/ C Ratio 30.2 Ratio 05/06/2016 Comp Metabolic Ynb198 CA LCIUM 8.9 mg/dL 05/06/2016 Comp Metabolic Trx742 AL K PHOS 29 U/L 05/06/2016 Comp Metabolic Nbh718 T(SGOT) 20 U/L 05/06/2016 Comp Metabolic Icj509 AL T(SGPT) 21 U/L 05/06/2016 Comp Metabolic Dah177 BI LI T 0.4 mg/dL 05/06/2016 Comp Metabolic Ubt699 AL BUMIN 3.6 g/dL 05/06/2016 Comp Metabolic Lcb135 TP RO 5.5 g/dL 05/06/2016 Comp Metabolic Xyl988 GL OB 1.9 g/dL 05/06/2016 Comp Metabolic Ndo746 A/ G Ratio 1.9 Ratio 05/06/2016 Comp Metabolic Fqd967 Os mo 285 mOsmo 05/06/2016 Urinalysis Ord28 [...] hours from collection if refrigerated) 05/06/2016 Progesterone Qga577 Prog 0.98 ng/mL 05/06/2016 Cbc With Differential [...] 29.2 pg 05/06/2016 Cbc With Differential Ord2 Carver% 10.1 % 05/06/2016 Cbc With Differential Ord2 [...] 1.16 K/ul 05/06/2016 Cbc With Differential Ord2 [place] ABS# 0.4 K/ul 05/06/2016 Cbc With Differential [...] 29.6 pg 04/29/2016 Cbc With Differential Ord2 Carver% 13.1 % 04/29/2016 Cbc With Differential Ord2 [...] 1.42 K/ul 04/29/2016 Cbc With Differential Ord2 [place] ABS# 0.5 K/ul 04/29/2016 Cbc With Differential Ord2 Eos ABS# 0.2 K/ul 04/29/2016 Cbc With Differential Ord2 Baso ABS# 0.0 K/ul 04/29/2016 Comp Metabolic Zzx705 NA 141 mEq/L 04/29/2016 Comp Metabolic Rni714 K 4.0 mEq/L 04/29/2016 Comp Metabolic Tqy930 CL 108 mEq/L 04/29/2016 Comp Metabolic Mnm974 CO2 27.0 mEq/L 04/29/2016 Comp Metabolic Jwb931 AN ION GAP 10 04/29/2016 Comp Metabolic Ole516 GL UCOSE 69 mg/dL 04/29/2016 Comp Metabolic Bxu198 Cr eat 0.5 mg/dL 04/29/2016 Comp Metabolic Zas307 eG FR 122 ml/min/1.73m2 04/10 Comp Metabolic Tnx418 BUN 19 mg/dL 04/29/2016 Comp Metabolic Izy432 B/ C Ratio 36.5 Ratio 04/29/2016 Comp Metabolic Vtt917 CA LCIUM 9.1 mg/dL 04/29/2016 Comp Metabolic Xgb777 AL K PHOS 31 U/L 04/29/2016 Comp Metabolic Uey594 T(SGOT) 20 U/L 04/29/2016 Comp Metabolic Svt244 AL T(SGPT) 22 U/L 04/29/2016 Comp Metabolic Kwi828 BI LI T 0.6 mg/dL 04/29/2016 Comp Metabolic Qku670 AL BUMIN 3.8 g/dL 04/29/2016 Comp Metabolic Aww966 TP RO 5.9 g/dL 04/29/2016 Comp Metabolic Ljt248 GL OB 2.1 g/dL 04/29/2016 Comp Metabolic Awk962 A/ G Ratio 1.8 Ratio 04/29/2016 Comp Metabolic Wit514 Os mo 282 mOsmo 04/29/2016 Progesterone Ndm909 Prog 5.99 ng/mL 04/29/2016 Urinalysis Ord28 U-Color [...] from collection if refrigerated) 04/25/2016 Comp Metabolic Xsr838 NA 138 mEq/L 04/25/2016 Comp Metabolic Nch894 K 3.6 mEq/L 04/25/2016 Comp Metabolic Fyl296 CL 105 mEq/L 04/25/2016 Comp Metabolic Vou377 CO2 27.0 mEq/L 04/25/2016 Comp Metabolic Maf693 AN ION GAP 10 04/25/2016 Comp Metabolic Dic110 GL UCOSE 190 mg/dL 04/25/2016 Comp Metabolic Rfw271 Cr eat 0.5 mg/dL 04/25/2016 Comp Metabolic Fmb264 eG FR 128 ml/min/1.73m2 04/09 Comp Metabolic Xsy733 BUN 17 mg/dL 04/25/2016 Comp Metabolic Wlu842 B/ C Ratio 34.0 Ratio 04/25/2016 Comp Metabolic Wbf495 CA LCIUM 8.7 mg/dL 04/25/2016 Comp Metabolic Lwy362 AL K PHOS 32 U/L 04/25/2016 Comp Metabolic Tup803 T(SGOT) 23 U/L 04/25/2016 Comp Metabolic Qia296 AL T(SGPT) 22 U/L 04/25/2016 Comp Metabolic Rxk963 BI LI T 0.5 mg/dL 04/25/2016 Comp Metabolic Pbe075 AL BUMIN 3.6 g/dL 04/25/2016 Comp Metabolic Cii888 TP RO 5.5 g/dL 04/25/2016 Comp Metabolic Aml831 GL OB 1.9 g/dL 04/25/2016 Comp Metabolic Hga523 A/ G Ratio 1.9 Ratio 04/25/2016 Comp Metabolic Swt386 Os mo 282 mOsmo 04/25/2016 Cbc With [...] 29.6 pg 04/25/2016 Cbc With Differential Ord2 Carver% 13.0 % 04/25/2016 Cbc With Differential Ord2 [...] 1.01 K/ul 04/25/2016 Cbc With Differential Ord2 Carver ABS# 0.4 K/ul 04/25/2016 Cbc With Differential [...] 29.2 pg 04/04/2016 Cbc With Differential Ord2 Carver% 16.1 % 04/04/2016 Cbc With Differential Ord2 [...] 1.32 K/ul 04/04/2016 Cbc With Differential Ord2 Carver ABS# 0.8 K/ul 04/04/2016 Cbc With Differential Ord2 Eos ABS# 0.2 K/ul 04/04/2016 Cbc With Differential Ord2 Baso ABS# 0.0 K/ul 04/04/2016 Comp Metabolic Nuu530 NA 140 mEq/L 04/04/2016 Comp Metabolic Ckw531 K 4.1 mEq/L 04/04/2016 Comp Metabolic Qbn190 CL 106 mEq/L 04/04/2016 Comp Metabolic Fmb324 CO2 27.0 mEq/L 04/04/2016 Comp Metabolic Wsx483 AN ION GAP 11 04/04/2016 Comp Metabolic Bjn543 GL UCOSE 71 mg/dL 04/04/2016 Comp Metabolic Utc859 Cr eat 0.5 mg/dL 04/04/2016 Comp Metabolic Rnm874 eG FR 131 ml/min/1.73m2 03/10 Comp Metabolic Wej503 BUN 14 mg/dL 04/04/2016 Comp Metabolic Jgc132 B/ C Ratio 28.6 Ratio 04/04/2016 Comp Metabolic Xos466 CA LCIUM 9.1 mg/dL 04/04/2016 Comp Metabolic Ewe101 AL K PHOS 42 U/L 04/04/2016 Comp Metabolic Yoj594 T(SGOT) 18 U/L 04/04/2016 Comp Metabolic Egx697 AL T(SGPT) 17 U/L 04/04/2016 Comp Metabolic Yxs582 BI LI T 0.4 mg/dL 04/04/2016 Comp Metabolic Mlb102 AL BUMIN 3.8 g/dL 04/04/2016 Comp Metabolic Xre863 TP RO 6.0 g/dL 04/04/2016 Comp Metabolic Oae880 GL OB 2.2 g/dL 04/04/2016 Comp Metabolic Cus978 A/ G Ratio 1.7 Ratio 04/04/2016 Comp Metabolic Xkk931 Os mo 278 mOsmo 04/04/2016 Urinalysis Ord28 [...] 29.6 pg 03/28/2016 Cbc With Differential Ord2 Carver% 11.7 % 03/28/2016 Cbc With Differential Ord2 [...] 1.14 K/ul 03/28/2016 Cbc With Differential Ord2 Carver ABS# 0.4 K/ul 03/28/2016 Cbc With Differential Ord2 Eos ABS# 0.1 K/ul 03/28/2016 Cbc With Differential Ord2 Baso ABS# 0.0 K/ul 03/28/2016 Cbc With Differential Ord2 New Analyzer Notice Please note new ref ranges s tarting 11-21-2015 due to implemntation of new five part differential hematolgy analyzer. 03/28/2016 Comp Metabolic Esj188 NA 137 mEq/L 03/28/2016 Comp Metabolic Ors199 K 3.5 mEq/L 03/28/2016 Comp Metabolic Gfp952 CL 105 mEq/L 03/28/2016 Comp Metabolic Btc952 CO2 27.0 mEq/L 03/28/2016 Comp Metabolic Zjv349 AN ION GAP 9 03/28/2016 Comp Metabolic Eqa992 GL UCOSE 174 mg/dL 03/28/2016 Comp Metabolic Hre473 Cr eat 0.5 mg/dL 03/28/2016 Comp Metabolic Mpm827 eG FR 131 ml/min/1.73m2 03/10 Comp Metabolic Nna499 BUN 13 mg/dL 03/28/2016 Comp Metabolic Lee925 B/ C Ratio 26.5 Ratio 03/28/2016 Comp Metabolic Rku147 CA LCIUM 8.7 mg/dL 03/28/2016 Comp Metabolic Ibb237 AL K PHOS 31 U/L 03/28/2016 Comp Metabolic Rcs885 T(SGOT) 20 U/L 03/28/2016 Comp Metabolic Eqy542 AL T(SGPT) 19 U/L 03/28/2016 Comp Metabolic Wdf984 BI LI T 0.4 mg/dL 03/28/2016 Comp Metabolic Lto244 AL BUMIN 3.5 g/dL 03/28/2016 Comp Metabolic Taq634 TP RO 5.3 g/dL 03/28/2016 Comp Metabolic Xsh186 GL OB 1.8 g/dL 03/28/2016 Comp Metabolic Ovt055 A/ G Ratio 2.0 Ratio 03/28/2016 Comp Metabolic Mpu961 Os mo 278 mOsmo 03/28/2016 Urinalysis Ord28 [...] collection if refrigerated) 03/28/2016 Testosterone Free Direct [id number] FREE TESTOSTERONE <0.2 pg/mL 03/13/2016 Estradiol 993969 ESTRADI OL <5.0 pg/mL 03/12/2016 Progesterone Jas091 Prog 0.56 ng/mL 03/10/2016 Homocyst(E)Ine Plasma 458902 HOMOCYSTEINE, TOTAL 10.9 umol/L 01/18/2016 Mthfr 686153 MTHFR C677T: HETEROZYGOUS MUTATION DETECTED 02/2016 Mthfr 740511 MTHFR A1298 C: HETEROZYGOUS MUTATION DETECTED 01/11/2016 Mthfr 295701 INTERPRETAT ION: 01/11/2016 Iodine Serum 022126 IOD INE, SERUM 131.0 ug/L 01/10/2016 Tsh Ord6 hTSH II 2.11 uIU/mL 01/07/2016 Comp Metabolic Imt723 NA 139 mEq/L 01/07/2016 Comp Metabolic Kfm550 K 4.0 mEq/L 01/07/2016 Comp Metabolic Ruf255 CL 104 mEq/L 01/07/2016 Comp Metabolic Pzn697 CO2 26.0 mEq/L 01/07/2016 Comp Metabolic Ago398 AN ION GAP 13 01/07/2016 Comp Metabolic Ikm907 GL UCOSE 86 mg/dL 01/07/2016 Comp Metabolic Dmz768 Cr eat 0.6 mg/dL 01/07/2016 Comp Metabolic Eiv987 eG FR 100 ml/min/1.73m2 12/11 Comp Metabolic Lvt785 BUN 18 mg/dL 01/07/2016 Comp Metabolic Uvb146 B/ C Ratio 29.0 Ratio 01/07/2016 Comp Metabolic Ega101 CA LCIUM 9.4 mg/dL 01/07/2016 Comp Metabolic Aaz721 AL K PHOS 40 U/L 01/07/2016 Comp Metabolic Qce659 T(SGOT) 20 U/L 01/07/2016 Comp Metabolic Lla827 AL T(SGPT) 24 U/L 01/07/2016 Comp Metabolic Gss739 BI LI T 0.6 mg/dL 01/07/2016 Comp Metabolic Zqa418 AL BUMIN 4.1 g/dL 01/07/2016 Comp Metabolic Hig091 TP RO 6.4 g/dL 01/07/2016 Comp Metabolic Nqi698 GL OB 2.3 g/dL 01/07/2016 Comp Metabolic Qdi821 A/ G Ratio 1.8 Ratio 01/07/2016 Comp Metabolic Bqp728 Os mo 279 mOsmo 01/07/2016 Lipid Ord30 [...] Ord28 U-Com Culture to follow 11/26/2015 Progesterone Lks379 Prog >40.00 ng/mL 11/26/2015 Testosterone Free Direct [id number] FREE TESTOSTERONE 0.6 pg/mL 10/01/2015 Estradiol 975923 ESTRADI OL <5.0 pg/mL 09/26/2015 Urinalysis Ord28 [...] Urinalysis Ord28 U-Yeast NEGATIVE 09/25/2015 Comp Metabolic Ugm137 NA 142 mEq/L 09/25/2015 Comp Metabolic Sum005 K 4.3 mEq/L 09/25/2015 Comp Metabolic Uhq774 CL 110 mEq/L 09/25/2015 Comp Metabolic Ajy821 CO2 23.0 mEq/L 09/25/2015 Comp Metabolic Iyn090 AN ION GAP 13 09/25/2015 Comp Metabolic Uww380 GL UCOSE 76 mg/dL 09/25/2015 Comp Metabolic Arx142 Cr eat 0.8 mg/dL 09/25/2015 Comp Metabolic Epg817 eG FR 79 ml/min/1.73m2 09/25 Comp Metabolic Hts378 BUN 17 mg/dL 09/25/2015 Comp Metabolic Crq175 B/ C Ratio 22.4 Ratio 09/25/2015 Comp Metabolic Znv228 CA LCIUM 9.4 mg/dL 09/25/2015 Comp Metabolic Ava883 AL K PHOS 45 U/L 09/25/2015 Comp Metabolic Kyw390 T(SGOT) 20 U/L 09/25/2015 Comp Metabolic Ets267 AL T(SGPT) 18 U/L 09/25/2015 Comp Metabolic Itl490 BI LI T 0.5 mg/dL 09/25/2015 Comp Metabolic Qla138 AL BUMIN 4.0 g/dL 09/25/2015 Comp Metabolic Qfb820 TP RO 6.2 g/dL 09/25/2015 Comp Metabolic Peq548 GL OB 2.2 g/dL 09/25/2015 Comp Metabolic Pec657 A/ G Ratio 1.8 Ratio 09/25/2015 Comp Metabolic Hqs924 Os mo 283 mOsmo 09/25/2015 Tsh Ord6 hTSH II 4.05 uIU/mL 09/25/2015 Progesterone Xbd169 Prog 21.38 ng/mL 09/25/2015 Free T4 Xof275 FREE T4 0.78 ng/dL 09/25/2015 Cbc With [...] RDW 14.3 % 09/25/2015 Testosterone Free Direct 400608 FREE TESTOSTERONE 1.2 pg/mL 08/31/2015 Estradiol 205624 ESTRADI OL <5.0 pg/mL 08/29/2015 Progesterone Xtg815 Prog 4.37 ng/mL 08/28/2015 Fungal Screen I 332060 * *ASPERGILLUS AB BY ID . 07/23/2015 Fungal Screen I 232267 A SPERGILLUS AB BY ID None Detected 015 Fungal Screen I 181354 * *BLASTOMYCES ANTIBODY BY CF & ID . 07/23/2015 Fungal Screen I 245972 B LASTOMYCES AB,CF <1:8 07/23/2015 Fungal Screen I 459169 B LASTOMYCES AB,ID None Detected 015 Fungal Screen I 092861 * *MAXINE ANTIBODY BY ID . 07/23/2015 Fungal Screen I 055289 C ANDIDA AB BY ID Detected 07/23/2015 Fungal Screen I 515765 * *COCCIDIOIDES ANTIBODIES, IGG & IGM . 07/23/2015 Fungal Screen I 942830 C OCCIDIOIDES AB IGM 0.3 IV 07/23/2015 Fungal Screen I 614678 C OCCIDIOIDES AB IGG 0.4 IV 07/23/2015 Fungal Screen I 719628 * *HISTOPLASMA ANTIBODY BY ID . 07/23/2015 Fungal Screen I 366336 H ISTOPLASMA ABS (ID) None Detected 015 Francisella Tularensis Abs 094425 F. TULARENSIS, IGG 0 U/mL 07/17/2015 Francisella Tularensis Abs 495920 F. TULARENSIS, IGM 0 U/mL 07/17/2015 Vitamin D 25 Oh Yjj0640 VITAMIN D, 25 HYDROXY 142.21 ng/mL 07/13/2015 Antistrptolysin-O Qualitative Qrv300 ASO Negative 07/12/2015 B12 Gzv756 B12 956.00 pg/ml 07/12/2015 Cbc With Differential [...] Ord2 RDW 15.1 % 07/10/2015 Free T4 Byy780 FREE T4 0.79 ng/dL 06/12/2015 Urinalysis Ord28 [...] Ord2 RDW 16.0 % 06/04/2015 Comp Metabolic Vuc070 NA 139 mEq/L 06/04/2015 Comp Metabolic Dii126 K 3.9 mEq/L 06/04/2015 Comp Metabolic Pma900 CL 108 mEq/L 06/04/2015 Comp Metabolic Elt488 CO2 26.0 mEq/L 06/04/2015 Comp Metabolic Pvs499 AN ION GAP 9 06/04/2015 Comp Metabolic Sud405 GL UCOSE 74 mg/dL 06/04/2015 Comp Metabolic Hxv070 Cr eat 0.6 mg/dL 06/04/2015 Comp Metabolic Xxj789 eG FR 102 ml/min/1.73m2 05/10 Comp Metabolic Ehk610 BUN 18 mg/dL 06/04/2015 Comp Metabolic Zhx732 B/ C Ratio 29.5 Ratio 06/04/2015 Comp Metabolic Rgw799 CA LCIUM 9.0 mg/dL 06/04/2015 Comp Metabolic Fsn813 AL K PHOS 44 U/L 06/04/2015 Comp Metabolic Izr303 T(SGOT) 22 U/L 06/04/2015 Comp Metabolic Qgz377 AL T(SGPT) 23 U/L 06/04/2015 Comp Metabolic Ciq471 BI LI T 0.4 mg/dL 06/04/2015 Comp Metabolic Ozy251 AL BUMIN 4.0 g/dL 06/04/2015 Comp Metabolic Xne722 TP RO 5.8 g/dL 06/04/2015 Comp Metabolic Txv820 GL OB 1.8 g/dL 06/04/2015 Comp Metabolic Oap299 A/ G Ratio 2.2 Ratio 06/04/2015 Comp Metabolic Oqo060 Os mo 278 mOsmo 06/04/2015 Tsh Ord6 [...] 4: G0439 03/11/2016 THER/PROPH/DIAG INJ SC/IM CPT-4: 13400 12/27/2015 Vital Signs Date Vital 01/24/2019 Blood Pressure 1: 140/78 Code: 8480-6 BMI: 19.9 Code: 89963-5 Heart Rate 1: 84 bpm Height: 5' SpO2: 95% Weight: 102 lbs 01/10/2019 Blood Pressure 1: 126/62 Code: 8480-6 BMI: 19.9 Code: 61569-1 Heart Rate 1: 90 bpm Height: 5' SpO2: 94% Temperature: 36.6 (C ) / 97.8 (F) Weight: 102 lbs 11/25/2018 Blood Pressure 1: 128/74 Code: 8480-6 BMI: 19.7 Code: 75879-4 Heart Rate 1: 86 bpm Height: 5' SpO2: 97% Weight: 101 lbs 09/15/2018 Blood Pressure 1: 130/70 Code: 8480-6 BMI: 20.6 Code: 88911-7 Heart Rate 1: 75 bpm Height: 5' SpO2: 99% Weight: 105 lbs 8 oz 09/10/2018 Blood Pressure 1: 126/68 Code: 8480-6 BMI: 20.7 Code: 69665-2 Heart Rate 1: 63 bpm Height: 5' SpO2: 96% Waist Measure (cm): 66 cm Weight: 106 lbs 06/01/2018 Blood Pressure 1: 156/76 Code: 8480-6 BMI: 20.1 Code: 08095-5 Heart Rate 1: 68 bpm Height: 5' SpO2: 99% Weight: 103 lbs 05/24/2018 Blood Pressure 1: 120/60 Code: 8480-6 BMI: 20.5 Code: 65249-2 Heart Rate 1: 82 bpm Height: 5' SpO2: 98% Weight: 105 lbs 05/19/2018 Blood Pressure 1: 140/72 Code: 8480-6 BMI: 20.5 Code: 64971-2 Heart Rate 1: 96 bpm Height: 5' SpO2: 98% Weight: 105 lbs 01/12/2018 Blood Pressure 1: 146/78 Code: 8480-6 BMI: 21.1 Code: 32345-0 Heart Rate 1: 85 bpm Height: 5' SpO2: 95% Weight: 108 lbs 10/12/2017 Blood Pressure 1: 138/72 Code: 8480-6 BMI: 21.1 Code: 45733-9 Heart Rate 1: 96 bpm Height: 5' SpO2: 98% Weight: 108 lbs 08/06/2017 Blood Pressure 1: 130/78 Code: 8480-6 BMI: 20.5 Code: 75934-2 Heart Rate 1: 89 bpm Height: 5' SpO2: 98% Weight: 105 lbs 05/13/2017 Blood Pressure 1: 122/70 Code: 8480-6 BMI: 20.5 Code: 17032-2 Heart Rate 1: 80 bpm Height: 5' SpO2: 97% Weight: 105 lbs 03/19/2017 Blood Pressure 1: 138/80 Code: 8480-6 BMI: 20.5 Code: 49828-8 Heart Rate 1: 83 bpm Height: 5' SpO2: 97% Waist Measure (cm): 74 cm Weight: 105 lbs 03/18/2017 Blood Pressure 1: 138/80 Code: 8480-6 BMI: 20.5 Code: 04510-8 Heart Rate 1: 83 bpm Height: 5' SpO2: 97% Weight: 105 lbs 01/27/2017 Blood Pressure 1: 142/68 Code: 8480-6 BMI: 20.5 Code: 67693-2 Heart Rate 1: 69 bpm Height: 5' SpO2: 97% Weight: 105 lbs 12/29/2016 Blood Pressure 1: 154/82 Code: 8480-6 BMI: 20.1 Code: 46064-4 Heart Rate 1: 76 bpm Height: 5' SpO2: 94% Temperature: 37.4 (C ) / 99.4 (F) Weight: 103 lbs 11/19/2016 Blood Pressure 1: 134/74 Code: 8480-6 BMI: 19.7 Code: 41864-2 Heart Rate 1: 64 bpm Height: 5' Weight: 101 lbs 08/13/2016 Blood Pressure 1: 118/56 Code: 8480-6 BMI: 19.5 Code: 90049-0 Heart Rate 1: 64 bpm Height: 5' SpO2: 97% Weight: 100 lbs 07/03/2016 Blood Pressure 1: 120/68 Code: 8480-6 BMI: 19.1 Code: 03356-1 Heart Rate 1: 80 bpm Height: 5' SpO2: 98% Weight: 98 lbs 05/07/2016 Blood Pressure 1: 116/58 Code: 8480-6 BMI: 19.1 Code: 11876-8 Heart Rate 1: 79 bpm Height: 5' SpO2: 98% Weight: 98 lbs 04/08/2016 Blood Pressure 1: 118/58 Code: 8480-6 BMI: 19.0 Code: 76101-2 Heart Rate 1: 78 bpm Height: 5' SpO2: 98% Weight: 97 lbs 8 oz 03/11/2016 Blood Pressure 1: 102/60 Code: 8480-6 BMI: 19.7 Code: 83950-8 Heart Rate 1: 75 bpm Height: 5' SpO2: 94% Waist Measure (cm): 71 cm Weight: 101 lbs 12/27/2015 Blood Pressure 1: 128/72 Code: 8480-6 BMI: 20.2 Code: 63568-9 Heart Rate 1: 95 bpm Height: 5' SpO2: 98% Weight: 103 lbs 8 oz 09/24/2015 Blood Pressure 1: 136/70 Code: 8480-6 BMI: 19.1 Code: 11512-9 Heart Rate 1: 72 bpm Height: 5' SpO2: 97% Weight: 98 lbs 06/26/2015 Blood Pressure 1: 144/64 Code: 8480-6 BMI: 18.9 Code: 57366-2 Heart Rate 1: 77 bpm Height: 5' SpO2: 98% Weight: 97 lbs 04/10/2015 Blood Pressure 1: 132/88 Code: 8480-6 BMI: 18.9 Code: 97938-9 Heart Rate 1: 83 bpm Height: 5' [...] Episodes daily 01/24/2019 None Location in the [facility] area 01/24/2019 None Onset and Resolution [...] Alleviating Factors medication 09/15/2018 None hypothyroid Quality flight teacher deisy 09/15/2018 None hypothyroid Onset and Resolution [...] 09/10/20 18 None Annual Medicare Wellness Exam Royal vanegas (self reported) diagnosed with elevated cholesterol 09/10/2018 [...] Alleviating Factors medication 05/19/2018 None hypothyroid Quality flight teacher deisy 05/19/2018 None hypertension Quality tari kebede [...] parietal area 10/12/2017 None hypertension Quality tari kebede hypertension 08/06/2017 None hypertension Onset and Resolution [...] own triggers 08/06/2017 None hypertension Quality tari kebede hypertension 05/13/2017 None hypertension Onset and Resolution [...] day 03/11/2016 None Annual Medicare Wellness Exam Handnaeem ng Stress usually juana effectively 03/11/2016 None [...] Encounters Encounter Performer Loca tion Codes Date ([id number]) 91905 EST. P ATIENT, LEVEL IV Diagnosis: Essential (primary) hypertension[ICD10: I10] Diagnosis: Headache[ICD10: R51] Diagnosis: Atrophy of thyroid (acquired)[ICD10: E03.4] Diagnosis: Other forms of dyspnea[ICD10: R06.09] [facility] CPT-4: 24562 01/24/2019 [id number]) 10008 EST. P ATIENT, LEVEL III Diagnosis: Headache[ICD10: R51] Diagnosis: Nasal congestion[ICD10: R09.81] [facility] CPT- 4: 00308 01/10/2019 [id number]) 43858 EST. P ATIENT, LEVEL IV Diagnosis: Other specified bacterial intestinal infections[ICD10: A04.8] Diagnosis: Enterocolitis due to Clostridium difficile, recurrent[ICD10: A04.71] Diagnosis: Essential (primary) hypertension[ICD10: I10] Kailee Moreira MD, [facility] CPT-4: 49928 11/25/2018 ([id number]) 24743 EST. P ATIENT, LEVEL IV Diagnosis: Essential (primary) hypertension[ICD10: I10] Diagnosis: Atrophy of thyroid (acquired)[ICD10: E03.4] Diagnosis: Low back pain[ICD10: M54.5] Diagnosis: Other specified noninflammatory disorders of vagina[ICD10: N89.8] Kailee Moreira MD, [facility] CPT-4: 62006 09/15/2018 ([id number]) 15673 EST. P ATIENT, LEVEL III Diagnosis: Dizziness and giddiness[ICD10: R42] Diagnosis: Allergic contact dermatitis due to plants, except food[ICD10: L23.7] Marixa Moreira MD, [facility] CPT-4: 68316 06/01/2018 ([id number]) 81836 EST. P ATIENT, LEVEL III Diagnosis: Allergic contact dermatitis due to plants, except food[ICD10: L23.7] Marixa Moreira MD, [facility] CPT-4: 29690 05/24/2018 ([id number]) 89762 EST. P ATIENT, LEVEL IV Diagnosis: Essential (primary) hypertension[ICD10: I10] Diagnosis: Atrophy of thyroid (acquired)[ICD10: E03.4] Diagnosis: Obstructive sleep apnea (adult) (pediatric)[ICD10: G47.33] Kailee Moreira MD, [facility] CPT-4: 87559 05/19/2018 ([id number]) 01320 EST. P ATIENT, LEVEL IV Diagnosis: Essential (primary) hypertension[ICD10: I10] Diagnosis: Atrophy of thyroid (acquired)[ICD10: E03.4] Diagnosis: Low back pain[ICD10: M54.5] Kailee Moreira MD, [facility] CPT-4: 62141 01/12/2018 ([id number]) 45184 EST. P ATIENT, LEVEL III Diagnosis: Headache[ICD10: R51] Kailee Moreira MD, [facility] CPT-4: 34065 10/12/2017 ([id number]) 62405 EST. P ATIENT, LEVEL IV Diagnosis: Atrophy of thyroid (acquired)[ICD10: E03.4] Diagnosis: Essential (primary) hypertension[ICD10: I10] Diagnosis: Obstructive sleep apnea (adult) (pediatric)[ICD10: G47.33] Kailee Moreira MD, [facility] CPT-4: 87334 08/06/2017 ([id number]) 84297 EST. 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 P ATIENT, LEVEL IV Diagnosis: Atrophy of thyroid (acquired)[ICD10: E03.4] Diagnosis: Essential (primary) hypertension[ICD10: I10] Diagnosis: Encounter for screening for other musculoskeletal disorder[ICD10: Z13.828] Diagnosis: Low back pain[ICD10: M54.5] Diagnosis: Transient alteration of awareness[ICD10: R40.4] Kailee Moreira MD, C CPT-4: 41086 03/18/2017 ([id number]) 92017 EST. P ATIENT, LEVEL IV Diagnosis: Atrophy of thyroid (acquired)[ICD10: E03.4] Diagnosis: Essential (primary) hypertension[ICD10: I10] Diagnosis: Low back pain[ICD10: M54.5] Kailee Moreira MD, [facility] CPT-4: 58683 01/27/2017 ([id number]) 82468 EST. P ATIENT, LEVEL III Diagnosis: Acute recurrent maxillary sinusitis[ICD10: J01.01] Marixa Moreira MD, [facility] CPT-4: 45037 12/29/2016 ([id number]) 58486 EST. P ATIENT, LEVEL IV Diagnosis: Atrophy of thyroid (acquired)[ICD10: E03.4] Diagnosis: Essential (primary) hypertension[ICD10: I10] [facility] CPT-4: 94147 11/19/2016 ([id number]) 79486 EST. P ATIENT, LEVEL IV Diagnosis: Atrophy of thyroid (acquired)[ICD10: E03.4] Diagnosis: Enterocolitis due to Clostridium difficile[ICD10: A04.7] Diagnosis: Essential (primary) hypertension[ICD10: I10] Kailee Moreira MD, [facility] CPT-4: 86903 08/13/2016 ([id number]) 76196 EST. P ATIENT, LEVEL IV Diagnosis: Essential (primary) hypertension[ICD10: I10] Diagnosis: Enterocolitis due to Clostridium difficile[ICD10: A04.7] Diagnosis: Hypothyroidism, unspecified[ICD10: E03.9] Diagnosis: Low back pain[ICD10: M54.5] Kailee Moreira MD, [facility] CPT-4: 58931 07/03/2016 ([id number]) 24060 EST. P ATIENT, LEVEL IV Diagnosis: Enterocolitis due to Clostridium difficile[ICD10: A04.7] Diagnosis: Lyme disease, unspecified[ICD10: A69.20] Kailee Moreira MD, [facility] CPT-4: 79008 05/07/2016 ([id number]) 29367 EST. P ATIENT, LEVEL IV Diagnosis: Generalized abdominal rigidity[ICD10: R19.37] Diagnosis: Diarrhea, unspecified[ICD10: R19.7] Diagnosis: Lyme disease, unspecified[ICD10: A69.20] Kailee Moreira MD, [facility] CPT-4: 30537 04/08/2016 ([id number]) 60405 EST. P ATIENT, LEVEL IV Diagnosis: Hypothyroidism, unspecified[ICD10: E03.9] Diagnosis: Lyme disease, unspecified[ICD10: A69.20] Diagnosis: Tachycardia, unspecified[ICD10: R00.0] Kailee Moreira MD, [facility] CPT-4: 00936 12/27/2015 ([id number]) 96153 EST. P ATIENT, LEVEL III Diagnosis: Essential (primary) hypertension[ICD10: I10] Diagnosis: Benign lipomatous neoplasm of skin and subcutaneous tissue of other sites[ICD10: D17.39] Diagnosis: Low back pain[ICD10: M54.5] [facility] CPT-4: 72387 09/24/2015 ([id number]) 61980 EST. 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 01/24/2019 [phone] [facility] [place] (30 min) Complex 01/24/2019 Patient Education: Patient Medication Summary Completed 01/24/2019 Patient Education: Hypertension Completed 01/24/2019 App[facility]ment: [phone] [facility] [place] (15 min) Moderate 01/19/2019 Appointment: Nurse Visit 01/14/2019 Visit Plan: Headache -nasal congest ion-refill fioricet for prn use-kenalog injection today in the office -call if symptoms do not resolve or if any worse-patient verbalized understanding of plan. 01/10/2019 Appointment: Mariax Lakhani WPtel: [phone] (15 min) Moderate 01/10/2019 Patient Education: Patient [...] at home. 11/25/2018 Appointment: Kailee Moreira WPtel: [facility] (15 min) Moderate 11/25/2018 Patient Education: [...] the chiropractor. 09/15/2018 Appointment: Kailee Moreira WPtel: [facility] 30 min appointments only in this slot [...] care surrogate. 09/10/2018 Appointment: Kiersten Armando WPtel: [facility] - Annual Wellness Visit 09/10/2018 Patient Education: Patient Medication Summary Completed 09/10/2018 Appointment: Injection 06/14/2018 Visit Plan: Contact dermatitis-disc ussed with Dr Moreira -rx for dexamethasone sent to patient's pharmacy and instructed on use-will also send rx for topical betamethsone -instructed patient to call if symptoms do not resolve or if any worse Ngyfygvsa-KEL-rqvgfxzv fluids-monitor blood pressure- call if dizziness does not resolve or if any worse-patient and verbalized understanding 06/01/2018 Appointment: Marixa Lakhani WPtel: [facility] [place] [phone] (15 min) Moderate 06/01/2018 Patient Education: Patient Medication Summary Completed 06/01/2018 Visit Plan: Contact dermatitis due to poison magalys/oak-kenalog injection today- pt is to use topical treatments as directed. Pt is cleanse clothing in hot water with soap, and call if symptoms do not improve or if they worsen. 05/24/2018 Appointment: Marixa Lakhani WPtel: [phone] (15 min) Moderate 05/24/2018 Patient Education: Patient [...] when awakening. 05/19/2018 Appointment: Kailee Moreira WPtel: [facility] (30 min) Complex 05/19/2018 Patient Education: Patient [...] thighs bilaterally 01/12/2018 Appointment: Kailee Moreira WPtel: [facility]5 [facility] (15 min) Moderate 01/12/2018 Patient Education: Patient Medication Summary Completed 01/12/2018 Appointment: Kailee Moreira WPtel: [facility]5 [facility] (15 min) Moderate 12/02/2017 Visit Plan: Headache - recommended patient to use PRN Fioricet for headaches - call if not improving. 10/12/2017 Appointment: Kailee Moreira WPtel: [address] [place], [place] [phone] (15 min) Moderate 10/12/2017 Patient Education: Patient [...] apnea - order humidification for cpap - [facility]- find out if they need [...] at home. 08/06/2017 Appointment: Kailee Moreira WPtel: [phone] [facility] (15 min) Moderate 08/06/2017 Patient Education: Patient Medication Summary Completed 08/06/2017 Care Plan: Comp Metabolic Pending 08/06/2017 Care Plan: Tsh Pending 08/06/2017 Care Plan: Free T4 Pending 08/06/2017 Care Plan: Lipid Pending 08/06/2017 Care Plan: Cbc With Differential Pending 08/06/2017 Appointment: Kailee Moreira WPtel: [facility] (15 min) Moderate 07/21/2017 Visit Plan: [...] nursing staff call dr. schaeffer about aby smith Low blood pressure stop lisinopril. 05/13/2017 Appointment: Kailee Moreira WPtel: [phone] [facility] (15 min) Moderate 05/13/2017 Patient Education: Patient Medication Summary Completed 05/13/2017 Patient Education: Hypertension Completed 05/13/2017 Appointment: Kailee Moreira WPtel: [facility] (15 min) Moderate 05/06/2017 Visit Plan: [...] care surrogate. 03/19/2017 [id number] [facility] - Annual Wellness Visit 03/19/2017 Patient Education: [...] at hospital. 03/18/2017 [phone] ([facility] min) Moderate 03/18/2017 Patient Education: [...] not improve. 01/27/2017 Appointment: Kailee Moreira WPtel: [facility] (15 min) Moderate 01/27/2017 Patient Education: Patient Medication Summary Completed 01/27/2017 Patient Education: Hypertension Completed 01/27/2017 Visit Plan: Sinusitis - Pt has acut e infection - pain in face, maxillary region, Pt informed to use decongestant, RX given to patient, sinus rinses also recommended. Call if symptoms do not show improvement. 12/29/2016 Appointment: Marixa Lakhani WPtel: [phone] [phone] [place] (30 min) Complex 12/29/2016 Patient Education: [...] control. 11/19/2016 Appointment: Kailee Moreira WPtel: [phone] [facility] [place] (15 min) Moderate 11/19/2016 Patient Education: [...] have improved. 08/13/2016 Appointment: Kailee Moreira WPtel: [facility]5 [facility] (15 min) Moderate 08/13/2016 Patient Education: Patient Medication Summary Completed 08/13/2016 Patient Education: Hypertension Completed 08/13/2016 Appointment: Kailee Moreira WPtel: [facility]5 [facility] (30 min) Complex 07/31/2016 Visit Plan: Hypertension [...] of control. 07/03/2016 Appointment: Kailee Moreira WPtel: [phone] [facility] (15 min) Moderate 07/03/2016 Patient Education: Patient Medication Summary Completed 07/03/2016 Patient Education: Hypertension Completed 07/03/2016 Visit Plan: Cdiff colitis - pt to h ave repeat testing - if positive will have to repeat treatment. Continue with probiotic. Lymes disease - continue with treatment per Dr. Carrillo. deplin sample x 18 days given to patient. 05/07/2016 Appointment: Kailee Moreira WPtel: [phone] [facility]66[facility] (15 min) Moderate 05/07/2016 Patient Education: Patient Medication Summary Completed 05/07/2016 Visit Plan: Diarrhea - suspect the diarrhea is Cdiff related - check stool and treat with flagyl, probiotic to increase to three times daily - continue to hold iv antibiotic. Lyme disease - treating with iv antibiotics - on hold while she has diarrhea. 04/08/2016 Appointment: Kailee Moreira WPtel: [phone] [place] [id number] (15 min) Moderate 04/08/2016 Patient Education: Patient Medication Summary Completed 04/08/2016 Appointment: Kailee Moreira WPtel: [facility] (15 min) Moderate 04/03/2016 Visit Plan: Medicare [...] Summary Completed 03/11/2016 Appointment: Kailee Moreira WPtel[facility] (15 min) Moderate 01/24/2016 Visit Plan: [...] control. 12/27/2015 Appointment: [phone] [place] (15 min) Moderate 12/27/2015 Patient Education: [...] not improve. 06/26/2015 Appointment: Kailee Moreira WPtel: [facility] (15 min) Moderate 06/26/2015 Patient Education: [...] equina-repeat MRI lumbar spine Lymes disease-sees Dr Carrillo-julios specialist in [place], [place] CAD-HX [id number] by Dr Hyde 04/10/2015 Appointment: (S) New Patient 04/10/2015 Patient Education: Patient Medication Summary Completed 04/10/2015 Patient Education: Hypertension Completed 04/10/2015 Instructions Comment . Medicare Exam - to day we [...] DOPA paperwork for health care surrogate. . Diarrhea - suspect the diarrhea is Cdiff related - check stool and treat with flagyl, probiotic to increase to three times daily - continue to hold iv antibiotic. Lyme disease - treating with iv antibiotics - on hold while she has diarrhea. kenalog injection to day okay to refill fioricet nasal saline rinses call tomorrow if headache not better and we can send in a short course of steroids . Headache -nasal congestion-refill alana icet for prn use-kenalog injection today in the office -call if symptoms do not resolve or if any worse-patient verbalized understanding of plan. voltaren gel apply 2 grams to the [...] is worsening or does not improve. . Hypothyroidism - p t with chronic [...] nursing staff call dr. schaeffer about aby smith Low blood pressure stop lisinopril. . Hypertension - wel l controlled - [...] spine Lymes disease-sees Dr Carrillo-lymes specialist in [place], [place] CAD-HX [id number] by Dr Hyde . Hypothyroidism - p [...] apnea - order humidification for cpap - [place] home patient/[facility]- find out if they need [...] do not resolve or if any worse [id number] fluids-monitor blood pressure-call if dizziness does not [...] based on previous levels of control. . Headache - recomme nded patient to [...] - pt to see the chiropractor. . Contact dermatitis due to poison magalys/oak-kenalog injection today- pt is to use topical treatments as directed. Pt is cleanse clothing in hot water with soap, and call if symptoms do not improve or if they worsen. DOXYCYCLINE 100MG TW ICE DAILY X 7 DAYS . Sinusitis - Pt has acute infection - p ain in face, maxillary region, Pt informed to use decongestant, RX given to patient, sinus rinses also recommended. Call if symptoms do not show improvement.
--- OUTSIDE RECORDS SUMMARY | 2020-05-05 12:05 | XMS REPORT | CCD ---
Author Author Emily Lakhani Organization [facility] Address [address] [place] [address] Phone Care Team Providers Care Spa Host Name Role Phone PP Unavailable CCM Unavailable Summary Purpose Interface Exchange Insurance Providers Payer name Policy type / Coverage type Covered democrat ID Effective Begin Date Effective End Date WPS Medicare Part B Medicare Part B [id number] Unknown [employer] [place] Medicare Part B [id number] Unknown Family history Mother Diagnosis Age At [...] Retir ed 04/10/[address]: 406886503 Never smoker 04/10/[address]: 924273888 Never drinks alcohol 04/10/2015 Allergies, Adverse Reactions, [...] HFA 90 mcg/ actuation aerosol inhaler RxNorm: 5234930 1 INH TID as needed dyspnea 01/24/2019 08/21/2019 Active Fioricet 50 mg-300 m g-40 mg capsule RxNorm: 9848970 1 Capsule(s) PO Q8 P RN as needed for headache 01/10/2019 No Stop Date Active dexamethasone 4 mg t ablet RxNorm: 528641 1 Tablet(s) PO daily 01/10/2019 01/09/2019 Inactive to be started on 01-11-19 Kenalog 40 mg/mL sadiq pension for injection RxNorm: 0086115 Milliliter(s) Inj 01/10/2019 01/10/2019 In active dexamethasone 4 mg t ablet RxNorm: 986762 1 Tablet(s) PO daily 01/10/2019 01/14/2019 Inactive to be started on 01-11-19 cyclobenzaprine 5 mg tablet RxNorm: 981919 1 Tablet(s) PO TID 12/14/2018 12/20/2018 Inactive cyclobenzaprine 5 mg tablet RxNorm: 219016 1 Tablet(s) PO TID 12/14/2018 12/13/2018 Inactive [place] Thyroid 90 mg tablet RxNorm: 369703 Tablet(s) 1/2 TABLET( S) PO DAILY 11/18/2018 02/10/2020 Ac tive [place] Thyroid 60 mg tablet RxNorm: 841064 1 Tablet(s) PO 3 x we ek Tue Thur Sun 11/17/2018 11/17/2018 In active hold until she is ready to refill [place] Thyroid 30 mg tablet RxNorm: 060246 1 Tablet(s) PO 4 time s a week Thu SAT 11/17/2018 11/16/2018 Inactive Please fill now- she will use her curren t supply of 60mg until she needs refill [place] Thyroid 30 mg tablet RxNorm: 217272 1 Tablet(s) PO 4 time s a week Thu SAT 11/17/2018 11/17/2018 Inactive Please fill now- she will use her curren t supply of 60mg until she needs refill Flagyl 500 mg tablet RxNorm: 962186 1 Tablet(s) PO TID 2018 10/17/2018 Inactive Flagyl 500 mg tablet RxNorm: 847919 1 Tablet(s) PO TID 10/06/2018 10/05/2018 Inactive Flagyl 500 mg tablet RxNorm: 816657 1 Tablet(s) PO TID 10/06/2018 10/10/2018 Inactive cefdinir 300 mg capsule RxNorm: 529211 1 Capsule(s) PO BID 09/29/2018 10/05/2018 Inactive cefdinir 300 mg capsule RxNorm: 130588 1 Capsule(s) PO BID 09/29/2018 09/28/2018 Inactive estradiol 0.01% (0.1 mg/gram) vaginal cream RxNorm: 271580 1 Gram(s) VAG BIW 09/15/2018 03/13/2019 Ac tive Imitrex 50 mg tablet RxNorm: 035264 TAKE WITH ONSET OF MIGRAINE- MAY TAKE AN ADDITIONAL DOSE IF NO RELIEF OF HEADACHE IN 1 HOUR- MAX OF 3 DOSES IN 24 HOURS Tablet(s) 06/14/2018 No Stop Date Active betamethasone gwendolyn te 0.1 % topical cream RxNorm: 526922 1 Application TOP TID 06/01/2018 06/10/2018 In active dexamethasone 4 mg t ablet RxNorm: 251829 1 Tablet(s) PO daily 06/01/2018 06/05/2018 Inactive Kenalog 40 mg/mL sadiq pension for injection RxNorm: 4403511 1.5 Milliliter(s) In j 05/24/2018 05/24/2018 In active amitriptyline 10 mg tablet RxNorm: 459737 1/2 TO 1 TABLET(S) PO QPM 01/21/2018 09/14/2018 Inactive [place] Thyroid 60 mg tablet RxNorm: 464358 1 Tablet(s) PO daily 01/12/2018 11/16/2018 Inactive carvedilol 3.125 mg tablet RxNorm: 107232 1 Tablet(s) PO BID 10/12/2017 No Stop Date Active Fiorinal-Codeine #3 30 mg-50 mg-325 mg-40 mg capsule RxNorm: 369603 1 Capsule(s) PO BID 10/12/2017 11/10/2017 Inactive progesterone microni zed 100 mg capsule RxNorm: 946733 1 Capsule(s) PO daily on days 1- 25 of each month 10/12/2017 01/11/2018 Inactive [place] Thyroid 90 mg tablet RxNorm: 295620 1/2 Tablet(s) PO melinda y 1/2 TABLET(S) PO DAILY 08/06/2017 01/11/2018 Inactive [place] Thyroid 90 mg tablet RxNorm: 983423 1/2 TABLET(S) PO DAILY 07/14/2017 08/05/2017 Inactive Keppra 500 mg tablet RxNorm: 338207 1 Tablet(s) PO BID 05/13/2017 08/05/2017 Inactive Deplin (algal oil) 1 5 mg-90.314 mg capsule RxNorm: TAKE ONE CAPSULE BY MOUTH O NE TIME DAILY 05/13/2017 01/11/2018 Inactive Keppra 250 mg tablet RxNorm: 727450 1 Tablet(s) PO daily 04/23/2017 04/22/2017 Inactive take 1 tab qd x 1 week then increase to BID Keppra 250 mg tablet RxNorm: 685716 1 Tablet(s) PO daily 04/23/2017 05/12/2017 Inactive take 1 tab qd x 1 week then increase to BID cyclobenzaprine 5 mg tablet RxNorm: 184817 1 Tablet(s) PO TID as needed 02/03/2017 02/22/2017 In active cyclobenzaprine 5 mg tablet RxNorm: 165581 1 Tablet(s) PO TID as needed 02/03/2017 02/02/2017 In active [place] Thyroid 90 mg tablet RxNorm: 717687 1/2 Tablet(s) PO daily 11/19/2016 03/18/2017 Inactive amitriptyline 10 mg tablet RxNorm: 852507 1/2 to 1 Tablet(s) PO QPM 11/19/2016 11/13/2017 Inactive fluconazole 50 mg ta blet RxNorm: 919784 1 Tablet(s) PO daily 08/20/2016 09/02/2016 Inactive [place] Thyroid 90 mg tablet RxNorm: 899208 1/2 Tablet(s) PO daily 08/11/2016 11/18/2016 Inactive Flagyl 500 mg tablet RxNorm: 658495 1 Tablet(s) PO TID 07/28/2016 01/11/2018 Inactive Flagyl 500 mg tablet RxNorm: 661949 1 Tablet(s) PO TID 07/17/2016 07/27/2016 Inactive amitriptyline 10 mg tablet RxNorm: 851638 1/2 to 1 Tablet(s) PO QPM 07/03/2016 10/30/2016 Inactive metronidazole 500 mg tablet RxNorm: 645100 1 Tablet(s) PO QID 07/03/2016 07/12/2016 Inactive amitriptyline 25 mg tablet RxNorm: 043600 1/2 -1 Tablet(s) PO Q HS as needed insomnia 06/26/2016 07/02/2016 Inactive vancomycin 125 mg ca psule RxNorm: 335653 1 Capsule(s) PO QID 06/20/2016 06/29/2016 Inactive [place] Thyroid 30 mg tablet RxNorm: 005231 1.5 Tablet(s) PO daily 06/20/2016 06/19/2016 Inactive [place] Thyroid 30 mg tablet RxNorm: 661875 1.5 Tablet(s) PO daily 06/20/2016 08/10/2016 Inactive fluconazole 50 mg ta blet RxNorm: 099930 1 Tablet(s) PO daily 06/16/2016 08/19/2016 Inactive amitriptyline 25 mg tablet RxNorm: 176749 1/2 -1 Tablet(s) PO Q HS as needed insomnia 06/12/2016 06/11/2016 Inactive amitriptyline 25 mg tablet RxNorm: 810975 1/2 -1 Tablet(s) PO Q HS as needed insomnia 06/12/2016 06/25/2016 Inactive vancomycin 125 mg ca psule RxNorm: 091576 1 Capsule(s) PO QID 06/12/2016 06/19/2016 Inactive fluconazole 50 mg ta blet RxNorm: 966446 1 Tablet(s) PO daily 06/12/2016 06/15/2016 Inactive Diflucan 150 mg tablet RxNorm: 873593 1 Tablet(s) PO daily 06/05/2016 06/09/2016 Inactive Deplin (algal oil) 1 5 mg-90.314 mg capsule RxNorm: 1 Capsule(s) PO daily 06/05/2016 06/04/2016 In active Diflucan 150 mg tablet RxNorm: 603053 1 Tablet(s) PO daily 06/05/2016 06/04/2016 Inactive Deplin (algal oil) 1 5 mg-90.314 mg capsule RxNorm: 1 Capsule(s) PO daily 06/05/2016 05/12/2017 In active nystatin 500,000 uni t tablet RxNorm: 158104 4 Tablet(s) PO daily 05/21/2016 09/17/2016 Inactive Vitamin D3 5,000 uni t tablet RxNorm: 825752 Tablet(s) PO daily 05/07/2016 No Stop Date Active nystatin 500,000 uni t tablet RxNorm: 817277 1 Tablet(s) PO Q4H 05/07/2016 05/20/2016 Inactive fluconazole 100 mg t ablet RxNorm: 923515 1 Tablet(s) PO daily 05/07/2016 06/11/2016 Inactive progesterone microni zed 100 mg capsule RxNorm: 685940 3 Capsule(s) PO daily on days 1- 25 of each month 05/07/2016 2017 Inactive metronidazole 500 mg tablet RxNorm: 605517 1 Tablet(s) PO TID 04/30/2016 05/09/2016 Inactive metronidazole 500 mg tablet RxNorm: 807789 1 Tablet(s) PO TID 04/30/2016 04/29/2016 Inactive vancomycin 125 mg ca psule RxNorm: 524192 1 Capsule(s) PO QID 04/29/2016 05/08/2016 Inactive vancomycin 125 mg ca psule RxNorm: 512555 1 Capsule(s) PO QID 04/29/2016 04/28/2016 Inactive Flagyl 500 mg tablet RxNorm: 182922 1 Tablet(s) PO TID 04/09/2016 04/08/2016 Inactive Flagyl 500 mg tablet RxNorm: 468153 1 Tablet(s) PO TID 04/09/2016 04/22/2016 Inactive carvedilol 3.125 mg tablet RxNorm: 321741 1 Tablet(s) PO BID 04/08/2016 2017 Inactive [place] Thyroid 60 mg tablet RxNorm: 544208 Tablet(s) PO 1 Tablet (s) daily 01/31/2016 06/19/2016 In active Pt request 90 day supply 11/23/2015 11:1 1:54 AM [place] Thyroid 30 mg tablet RxNorm: 590991 1 Tablet(s) daily 01/28/2016 01/30/2016 Inactive Pt request 90 day supply 11/23/2015 11:1 1:54 AM [place] Thyroid 30 mg tablet RxNorm: 759608 1 Tablet(s) daily 01/21/2016 01/27/2016 Inactive Pt request 90 day supply 11/23/2015 11:1 1:54 AM [place] Thyroid 30 mg tablet RxNorm: 890703 Tablet(s) TAKE ONE AN D ONE-HALF (45 MG) TABLET BY MOUTH EVERY DAY 01/02/2016 01/20/2016 Inactive Pt request 90 day supply 11/23/2015 11:11:54 AM Xylocaine 20 mg/mL ( 2 %) injection solution RxNorm: 9316087 2.5 Milliliter(s) In j BID with cefepime 12/27/2015 01/25/2016 Inactive cefepime 1 gram solu tion for injection RxNorm: 1201197 Inj 12/1012/27/2015 Inactive [place] Thyroid 30 mg tablet RxNorm: 746500 TAKE ONE TABLET BY [facility] EVERY DAY 11/23/2015 01/01/2016 In active Pt request 90 day supply 11/23/2015 11:1 1:54 AM Voltaren 1 % topical gel RxNorm: 590825 2 Gram(s) TOP QID 09/24/2015 12/26/2015 Inactive cyclobenzaprine 10 m g tablet RxNorm: 318507 1 Tablet(s) PO Q6 as needed 08/27/2015 05/06/2016 In active [place] Thyroid 30 mg tablet RxNorm: 101275 1 Tablet(s) PO daily 06/21/2015 06/20/2015 Inactive [place] Thyroid 30 mg tablet RxNorm: 204682 1 Tablet(s) PO daily 06/21/2015 11/22/2015 Inactive Synthroid 25 mcg tablet RxNorm: 621004 1 Tablet(s) PO daily 06/07/2015 06/06/2015 Inactive [facility]ASE[facility]-1 Synthroid 25 mcg tablet RxNorm: 218786 1 Tablet(s) PO daily 06/07/2015 06/20/2015 Inactive [facility]-1 ofloxacin 0.3 % ear drops RxNorm: 151647 1-2 Drop(s) OTIC OU Q 4H as needed No Start Date Active Aspirin Low Dose 81 mg tablet,delayed release RxNorm: 561226 1 Tablet(s) PO daily No Start Date Active tyrosine (bulk) powder RxNorm: 1 Miscellaneous dash every am No Start Date Active arginine (L-arginine ) oral RxNorm: 1091 oral No Sta rt Date Active glutathione RxNorm: 4890 miscellaneous No Start Date Active Plaquenil 200 mg tablet RxNorm: 081035 1 Tablet(s) PO BID No Start Date 05/19/2016 Inactive fluconazole 100 mg t ablet RxNorm: 724118 1/2 Tablet(s) PO daily No Start Date 05/06/2016 Inactive fluconazole 150 mg t ablet RxNorm: 253328 1 Tablet(s) PO QW x4 No Start Date 12/26/2015 Inactive progesterone microni zed 100 mg capsule RxNorm: 129016 2 Capsule(s) PO daily No Start Date 05/06/2016 Inactive nystatin 500,000 uni t tablet RxNorm: 882385 1 Tablet(s) PO QID No Start Date 05/06/2016 Inactive cyclobenzaprine 10 m g tablet RxNorm: 184153 1 Tablet(s) PO Q6 as needed No Start Date 08/26/2015 Inactive vitamin K oral RxNorm: 8308 oral No Start Date 12/26/2015 Inactive carvedilol 3.125 mg tablet RxNorm: 711061 1 Tablet(s) PO daily No Start Date 04/07/2016 Inactive lisinopril 5 mg tablet RxNorm: 011126 1 Tablet(s) PO daily No Start Date 05/12/2017 Inactive azithromycin 250 mg tablet RxNorm: 694993 1 Tablet(s) PO daily will incrase to 2 per day No Start Date 12/26/2015 Inactive Probiotic 4X oral RxNorm: 8446183 oral No Start Date 01/07/2016 Inactive Imitrex 50 mg tablet RxNorm: 494404 TAKE WITH ONSET OF MIGRAINE- MAY TAKE AN ADDITIONAL DOSE IF NO RELIEF OF HEADACHE IN 1 HOUR- MAX OF 3 DOSES IN 24 HOURS No Start Date 06/13/2018 Inactive Vitamin D3 1,000 uni t tablet RxNorm: 385498 Tablet(s) PO daily No Start Date 05/06/2016 Inactive progesterone microni zed 100 mg capsule RxNorm: 640408 3 Capsule(s) PO daily rx from [facility] No Start Date 12/26/2015 Inactive lorazepam 0.5 mg tablet RxNorm: 325817 1/2-1 Tablet(s) PO daily as needed No Start Date 03/10/2016 Inactive Multiple Vitamin oral RxNorm: 44436 oral No Start Date 05/06/2016 Inactive Medication Administered Medication Codes Instruc tions Start Date Status Kenalog 40 mg/mL suspension for injection RxNorm: 1038572 Milliliter 01/10/2019 No longer Active Kenalog 40 mg/mL suspension for injection RxNorm: 0942333 1.5Milliliter 05/24/2018 No longer Active cefepime 1 gram solution for injection RxNorm: 8179062 12/27/2015 No longer A ctive Immunizations No [...] Observation Code Item Item Code Result Date Comp Metabolic Zya114 NA 145 mEq/L 06/14/2018 Comp Metabolic Xwr368 K 4.0 mEq/L 06/14/2018 Comp Metabolic Fra014 CL 106 mEq/L 06/14/2018 Comp Metabolic Xrp847 CO2 31.0 mEq/L 06/14/2018 Comp Metabolic Mvq889 AN ION GAP 12 06/14/2018 Comp Metabolic Evk391 GL UCOSE 88 mg/dL 06/14/2018 Comp Metabolic Mjh136 Cr eat 0.7 mg/dL 06/14/2018 Comp Metabolic Aro720 eG FR 92 ml/min/1.73m2 06/14 Comp Metabolic Nlx584 BUN 9 mg/dL 06/14/2018 Comp Metabolic Ocv884 B/ C Ratio 13.6 Ratio 06/14/2018 Comp Metabolic Hcb181 CA LCIUM 9.0 mg/dL 06/14/2018 Comp Metabolic Akl230 AL K PHOS 36 U/L 06/14/2018 Comp Metabolic Jfb643 T(SGOT) 21 U/L 06/14/2018 Comp Metabolic Ccn294 AL T(SGPT) 22 U/L 06/14/2018 Comp Metabolic Bdr498 BI LI T 0.3 mg/dL 06/14/2018 Comp Metabolic Vft341 AL BUMIN 3.8 g/dL 06/14/2018 Comp Metabolic Nyx493 TP RO 5.8 g/dL 06/14/2018 Comp Metabolic Inz841 GL OB 2.0 g/dL 06/14/2018 Comp Metabolic Iet891 A/ G Ratio 2.0 Ratio 06/14/2018 Comp Metabolic Odv706 Os mo 287 mOsmo 06/14/2018 Free T4 Jel634 FREE T4 0.66 ng/dL 06/14/2018 Tsh Ord6 [...] 29.8 pg 06/14/2018 Cbc With Differential Ord2 [place]% 13.9 % 06/14/2018 Cbc With Differential Ord2 [...] 1.40 K/ul 06/14/2018 Cbc With Differential Ord2 [place] ABS# 0.6 K/ul 06/14/2018 Cbc With Differential Ord2 Eos ABS# 0.2 K/ul 06/14/2018 Cbc With Differential Ord2 Baso ABS# 0.0 K/ul 06/14/2018 Free T4 Tkn987 FREE T4 0.63 ng/dL 01/05/2018 Lipid Ord30 CHOL 246 mg/dL 01/05/2018 Lipid Ord30 HDL 79.0 mg/dl 01/05/2018 Lipid Ord30 TRIG 124 mg/dL 01/05/2018 Lipid Ord30 LDL 142 mg/dL 01/05/2018 Lipid Ord30 C/HDL 3.1 Ratio 01/05/2018 Tsh Ord6 TSH (3rd IS) 1.48 uIU/mL 01/05/2018 Tsh Ord6 hTSH II 2.03 uIU/mL 08/07/2017 Comp Metabolic Cmo916 NA 142 mEq/L 08/07/2017 Comp Metabolic Bqd270 K 4.1 mEq/L 08/07/2017 Comp Metabolic Zmx624 CL 105 mEq/L 08/07/2017 Comp Metabolic Zts453 CO2 27.0 mEq/L 08/07/2017 Comp Metabolic Cts301 AN ION GAP 14 08/07/2017 Comp Metabolic Xjp089 GL UCOSE 89 mg/dL 08/07/2017 Comp Metabolic Yif182 Cr eat 0.7 mg/dL 08/07/2017 Comp Metabolic Hxr597 eG FR 86 ml/min/1.73m2 08/07 Comp Metabolic Qap368 BUN 16 mg/dL 08/07/2017 Comp Metabolic Pzx604 B/ C Ratio 22.9 Ratio 08/07/2017 Comp Metabolic Bcy357 CA LCIUM 9.8 mg/dL 08/07/2017 Comp Metabolic Mph849 AL K PHOS 41 U/L 08/07/2017 Comp Metabolic Uba841 T(SGOT) 26 U/L 08/07/2017 Comp Metabolic Tap437 AL T(SGPT) 21 U/L 08/07/2017 Comp Metabolic Xpv863 BI LI T 0.5 mg/dL 08/07/2017 Comp Metabolic Utb360 AL BUMIN 4.3 g/dL 08/07/2017 Comp Metabolic Wcb023 TP RO 6.6 g/dL 08/07/2017 Comp Metabolic Kdz647 GL OB 2.3 g/dL 08/07/2017 Comp Metabolic Aiy753 A/ G Ratio 1.9 Ratio 08/07/2017 Comp Metabolic Shs040 Os mo 284 mOsmo 08/07/2017 Free T4 Ctw274 FREE T4 0.64 ng/dL 08/07/2017 Lipid Ord30 [...] 30.3 pg 08/07/2017 Cbc With Differential Ord2 [place]% 13.9 % 08/07/2017 Cbc With Differential Ord2 [...] 1.49 K/ul 08/07/2017 Cbc With Differential Ord2 [place] ABS# 0.6 K/ul 08/07/2017 Cbc With Differential [...] 30.5 pg 11/20/2016 Cbc With Differential Ord2 [place]% 10.8 % 11/20/2016 Cbc With Differential Ord2 [...] 1.62 K/ul 11/20/2016 Cbc With Differential Ord2 [place] ABS# 0.5 K/ul 11/20/2016 Cbc With Differential Ord2 Eos ABS# 0.2 K/ul 11/20/2016 Cbc With Differential Ord2 Baso ABS# 0.0 K/ul 11/20/2016 Free T4 Asz942 FREE T4 0.80 ng/dL 11/20/2016 Tsh Ord6 hTSH II 1.35 uIU/mL 11/20/2016 Comp Metabolic Oru154 NA 139 mEq/L 11/20/2016 Comp Metabolic Sxr588 K 3.9 mEq/L 11/20/2016 Comp Metabolic Ftr970 CL 103 mEq/L 11/20/2016 Comp Metabolic Vow404 CO2 30.0 mEq/L 11/20/2016 Comp Metabolic Sik702 AN ION GAP 10 11/20/2016 Comp Metabolic Hgj118 GL UCOSE 85 mg/dL 11/20/2016 Comp Metabolic Dak537 Cr eat 0.7 mg/dL 11/20/2016 Comp Metabolic Smk513 eG FR 93 ml/min/1.73m2 11/20 Comp Metabolic Prc028 BUN 12 mg/dL 11/20/2016 Comp Metabolic Bne619 B/ C Ratio 18.2 Ratio 11/20/2016 Comp Metabolic Vok960 CA LCIUM 9.1 mg/dL 11/20/2016 Comp Metabolic Rbj192 AL K PHOS 34 U/L 11/20/2016 Comp Metabolic Epl035 T(SGOT) 18 U/L 11/20/2016 Comp Metabolic Sgi585 AL T(SGPT) 14 U/L 11/20/2016 Comp Metabolic Pdc517 BI LI T 0.5 mg/dL 11/20/2016 Comp Metabolic Xrs045 AL BUMIN 4.2 g/dL 11/20/2016 Comp Metabolic Aso885 TP RO 6.3 g/dL 11/20/2016 Comp Metabolic Bvr206 GL OB 2.1 g/dL 11/20/2016 Comp Metabolic Jve527 A/ G Ratio 2.0 Ratio 11/20/2016 Comp Metabolic Qqh544 Os mo 277 mOsmo 11/20/2016 Lipid Ord30 CHOL 189 mg/dL 11/20/2016 Lipid Ord30 HDL 81.0 mg/dl 11/20/2016 Lipid Ord30 TRIG 77 mg/dL 11/20/2016 Lipid Ord30 LDL 93 mg/dL 11/20/2016 Lipid Ord30 C/HDL 2.3 Ratio 11/20/2016 Testosterone Free Direct [id number] FREE TESTOSTERONE 0.7 pg/mL 10/06/2016 Estradiol 574562 ESTRADI OL 5.9 pg/mL 10/03/2016 Cortisol 029302 CORTISOL 23 ug/dL 10/03/2016 Progesterone Ixv363 Prog 17.38 ng/mL 10/01/2016 Free T4 Zmg349 FREE T4 0.66 ng/dL 08/13/2016 Tsh Ord6 hTSH II 0.99 uIU/mL 08/13/2016 Testosterone Free Direct [id number] FREE TESTOSTERONE <0.2 pg/mL 07/05/2016 Estradiol 336283 ESTRADI OL <5.0 pg/mL 07/03/2016 Progesterone Xnw605 Prog 23.37 ng/mL 07/02/2016 Tsh Ord6 hTSH II 0.24 uIU/mL 06/17/2016 Free T4 Rfi125 FREE T4 0.86 ng/dL 06/17/2016 Estradiol 424770 ESTRADI OL <5.0 pg/mL 05/21/2016 Comp Metabolic Wir734 NA 140 mEq/L 05/20/2016 Comp Metabolic Rxv850 K 4.1 mEq/L 05/20/2016 Comp Metabolic Xeg128 CL 106 mEq/L 05/20/2016 Comp Metabolic Iif416 CO2 26.0 mEq/L 05/20/2016 Comp Metabolic Qax097 AN ION GAP 12 05/20/2016 Comp Metabolic Kwz710 GL UCOSE 81 mg/dL 05/20/2016 Comp Metabolic Spo756 Cr eat 0.5 mg/dL 05/20/2016 Comp Metabolic Izq787 eG FR 119 ml/min/1.73m2 05/09 Comp Metabolic Xfk600 BUN 15 mg/dL 05/20/2016 Comp Metabolic Sim232 B/ C Ratio 28.3 Ratio 05/20/2016 Comp Metabolic Owv277 CA LCIUM 8.9 mg/dL 05/20/2016 Comp Metabolic Ifx703 AL K PHOS 36 U/L 05/20/2016 Comp Metabolic Ilv823 T(SGOT) 25 U/L 05/20/2016 Comp Metabolic Ewo085 AL T(SGPT) 23 U/L 05/20/2016 Comp Metabolic Cva905 BI LI T 0.4 mg/dL 05/20/2016 Comp Metabolic Dsm825 AL BUMIN 3.7 g/dL 05/20/2016 Comp Metabolic Mdh497 TP RO 5.9 g/dL 05/20/2016 Comp Metabolic Rqo550 GL OB 2.2 g/dL 05/20/2016 Comp Metabolic Yxm837 A/ G Ratio 1.7 Ratio 05/20/2016 Comp Metabolic Iyu957 Os mo 279 mOsmo 05/20/2016 Progesterone Gkp347 Prog 8.44 ng/mL 05/20/2016 Cbc With Differential [...] 30.2 pg 05/20/2016 Cbc With Differential Ord2 [place]% 13.0 % 05/20/2016 Cbc With Differential Ord2 [...] 0.85 K/ul 05/20/2016 Cbc With Differential Ord2 [place] ABS# 0.6 K/ul 05/20/2016 Cbc With Differential [...] collection if refrigerated) 05/20/2016 Testosterone Free Direct [id number] FREE TESTOSTERONE 0.6 pg/mL 05/19/2016 Estradiol 402350 ESTRADI OL <5.0 pg/mL 05/16/2016 Comp Metabolic Zia472 NA 140 mEq/L 05/15/2016 Comp Metabolic Bxz869 K 3.8 mEq/L 05/15/2016 Comp Metabolic Ozm075 CL 106 mEq/L 05/15/2016 Comp Metabolic Kao774 CO2 26.0 mEq/L 05/15/2016 Comp Metabolic Lbd526 AN ION GAP 12 05/15/2016 Comp Metabolic Lhs544 GL UCOSE 77 mg/dL 05/15/2016 Comp Metabolic Sjy208 Cr eat 0.5 mg/dL 05/15/2016 Comp Metabolic Tah700 eG FR 144 ml/min/1.73m2 05/2016 Comp Metabolic Heg323 BUN 18 mg/dL 05/15/2016 Comp Metabolic Hhj027 B/ C Ratio 40.0 Ratio 05/15/2016 Comp Metabolic Evv839 CA LCIUM 8.8 mg/dL 05/15/2016 Comp Metabolic Gri476 AL K PHOS 28 U/L 05/15/2016 Comp Metabolic Cwl087 T(SGOT) 19 U/L 05/15/2016 Comp Metabolic Qvl899 AL T(SGPT) 19 U/L 05/15/2016 Comp Metabolic Mog012 BI LI T 0.5 mg/dL 05/15/2016 Comp Metabolic Umj163 AL BUMIN 3.6 g/dL 05/15/2016 Comp Metabolic Lhn583 TP RO 5.6 g/dL 05/15/2016 Comp Metabolic Ksq760 GL OB 2.0 g/dL 05/15/2016 Comp Metabolic Ffx321 A/ G Ratio 1.8 Ratio 05/15/2016 Comp Metabolic Emn352 Os mo 280 mOsmo 05/15/2016 Progesterone Xhc056 Prog 9.08 ng/mL 05/15/2016 Cbc With Differential [...] 29.9 pg 05/15/2016 Cbc With Differential Ord2 [place]% 14.1 % 05/15/2016 Cbc With Differential Ord2 [...] 1.42 K/ul 05/15/2016 Cbc With Differential Ord2 [place] ABS# 0.6 K/ul 05/15/2016 Cbc With Differential [...] Ord28 U-Com None 05/15/2016 Testosterone Free Direct 170356 FREE TESTOSTERONE 0.2 pg/mL 05/09/2016 Estradiol 096709 ESTRADI OL <5.0 pg/mL 05/07/2016 Comp Metabolic Qgj441 NA 141 mEq/L 05/06/2016 Comp Metabolic Qba514 K 3.6 mEq/L 05/06/2016 Comp Metabolic Eub412 CL 107 mEq/L 05/06/2016 Comp Metabolic Nml134 CO2 28.0 mEq/L 05/06/2016 Comp Metabolic Kde386 AN ION GAP 10 05/06/2016 Comp Metabolic Lde118 GL UCOSE 138 mg/dL 05/06/2016 Comp Metabolic Jbq885 Cr eat 0.5 mg/dL 05/06/2016 Comp Metabolic Puj690 eG FR 119 ml/min/1.73m2 04/10 Comp Metabolic Vrn639 BUN 16 mg/dL 05/06/2016 Comp Metabolic Mqx716 B/ C Ratio 30.2 Ratio 05/06/2016 Comp Metabolic Iko525 CA LCIUM 8.9 mg/dL 05/06/2016 Comp Metabolic Woh634 AL K PHOS 29 U/L 05/06/2016 Comp Metabolic Xgj484 T(SGOT) 20 U/L 05/06/2016 Comp Metabolic Qbf120 AL T(SGPT) 21 U/L 05/06/2016 Comp Metabolic Byt564 BI LI T 0.4 mg/dL 05/06/2016 Comp Metabolic Ajm151 AL BUMIN 3.6 g/dL 05/06/2016 Comp Metabolic Itk158 TP RO 5.5 g/dL 05/06/2016 Comp Metabolic Pur729 GL OB 1.9 g/dL 05/06/2016 Comp Metabolic Aqf435 A/ G Ratio 1.9 Ratio 05/06/2016 Comp Metabolic Vrp554 Os mo 285 mOsmo 05/06/2016 Urinalysis Ord28 [...] hours from collection if refrigerated) 05/06/2016 Progesterone Lwi579 Prog 0.98 ng/mL 05/06/2016 Cbc With Differential [...] 29.2 pg 05/06/2016 Cbc With Differential Ord2 [place]% 10.1 % 05/06/2016 Cbc With Differential Ord2 [...] 1.16 K/ul 05/06/2016 Cbc With Differential Ord2 [place] ABS# 0.4 K/ul 05/06/2016 Cbc With Differential [...] 29.6 pg 04/29/2016 Cbc With Differential Ord2 [place]% 13.1 % 04/29/2016 Cbc With Differential Ord2 [...] 1.42 K/ul 04/29/2016 Cbc With Differential Ord2 [place] ABS# 0.5 K/ul 04/29/2016 Cbc With Differential Ord2 Eos ABS# 0.2 K/ul 04/29/2016 Cbc With Differential Ord2 Baso ABS# 0.0 K/ul 04/29/2016 Comp Metabolic Zgx514 NA 141 mEq/L 04/29/2016 Comp Metabolic Xwm436 K 4.0 mEq/L 04/29/2016 Comp Metabolic Zdo517 CL 108 mEq/L 04/29/2016 Comp Metabolic Tis241 CO2 27.0 mEq/L 04/29/2016 Comp Metabolic Hcs331 AN ION GAP 10 04/29/2016 Comp Metabolic Gle424 GL UCOSE 69 mg/dL 04/29/2016 Comp Metabolic Ddk568 Cr eat 0.5 mg/dL 04/29/2016 Comp Metabolic Bmj170 eG FR 122 ml/min/1.73m2 04/10 Comp Metabolic Zzd788 BUN 19 mg/dL 04/29/2016 Comp Metabolic Nau092 B/ C Ratio 36.5 Ratio 04/29/2016 Comp Metabolic Pfs053 CA LCIUM 9.1 mg/dL 04/29/2016 Comp Metabolic Sox009 AL K PHOS 31 U/L 04/29/2016 Comp Metabolic Wyy668 T(SGOT) 20 U/L 04/29/2016 Comp Metabolic Irm767 AL T(SGPT) 22 U/L 04/29/2016 Comp Metabolic Mtl071 BI LI T 0.6 mg/dL 04/29/2016 Comp Metabolic Xlq755 AL BUMIN 3.8 g/dL 04/29/2016 Comp Metabolic Rvx561 TP RO 5.9 g/dL 04/29/2016 Comp Metabolic Ovj106 GL OB 2.1 g/dL 04/29/2016 Comp Metabolic Oxx212 A/ G Ratio 1.8 Ratio 04/29/2016 Comp Metabolic Zjg551 Os mo 282 mOsmo 04/29/2016 Progesterone Anh824 Prog 5.99 ng/mL 04/29/2016 Urinalysis Ord28 U-Color [...] from collection if refrigerated) 04/25/2016 Comp Metabolic Fwx824 NA 138 mEq/L 04/25/2016 Comp Metabolic Dgf968 K 3.6 mEq/L 04/25/2016 Comp Metabolic Lbx018 CL 105 mEq/L 04/25/2016 Comp Metabolic Zsc180 CO2 27.0 mEq/L 04/25/2016 Comp Metabolic Amy352 AN ION GAP 10 04/25/2016 Comp Metabolic Gxb639 GL UCOSE 190 mg/dL 04/25/2016 Comp Metabolic Uby548 Cr eat 0.5 mg/dL 04/25/2016 Comp Metabolic Xvb032 eG FR 128 ml/min/1.73m2 04/09 Comp Metabolic Uqi248 BUN 17 mg/dL 04/25/2016 Comp Metabolic Pim093 B/ C Ratio 34.0 Ratio 04/25/2016 Comp Metabolic Mvv861 CA LCIUM 8.7 mg/dL 04/25/2016 Comp Metabolic Ogl731 AL K PHOS 32 U/L 04/25/2016 Comp Metabolic Epg616 T(SGOT) 23 U/L 04/25/2016 Comp Metabolic Ohd572 AL T(SGPT) 22 U/L 04/25/2016 Comp Metabolic Tve932 BI LI T 0.5 mg/dL 04/25/2016 Comp Metabolic Hfe382 AL BUMIN 3.6 g/dL 04/25/2016 Comp Metabolic Wte096 TP RO 5.5 g/dL 04/25/2016 Comp Metabolic Qjr468 GL OB 1.9 g/dL 04/25/2016 Comp Metabolic Gly230 A/ G Ratio 1.9 Ratio 04/25/2016 Comp Metabolic Zhu664 Os mo 282 mOsmo 04/25/2016 Cbc With [...] 29.6 pg 04/25/2016 Cbc With Differential Ord2 [place]% 13.0 % 04/25/2016 Cbc With Differential Ord2 [...] 1.01 K/ul 04/25/2016 Cbc With Differential Ord2 [place] ABS# 0.4 K/ul 04/25/2016 Cbc With Differential [...] 29.2 pg 04/04/2016 Cbc With Differential Ord2 [place]% 16.1 % 04/04/2016 Cbc With Differential Ord2 [...] 1.32 K/ul 04/04/2016 Cbc With Differential Ord2 [place] ABS# 0.8 K/ul 04/04/2016 Cbc With Differential Ord2 Eos ABS# 0.2 K/ul 04/04/2016 Cbc With Differential Ord2 Baso ABS# 0.0 K/ul 04/04/2016 Comp Metabolic Vnq186 NA 140 mEq/L 04/04/2016 Comp Metabolic Qmr688 K 4.1 mEq/L 04/04/2016 Comp Metabolic Dbq328 CL 106 mEq/L 04/04/2016 Comp Metabolic Opq692 CO2 27.0 mEq/L 04/04/2016 Comp Metabolic Tns995 AN ION GAP 11 04/04/2016 Comp Metabolic Xmt092 GL UCOSE 71 mg/dL 04/04/2016 Comp Metabolic Ztp349 Cr eat 0.5 mg/dL 04/04/2016 Comp Metabolic Jvv893 eG FR 131 ml/min/1.73m2 03/10 Comp Metabolic Dtz474 BUN 14 mg/dL 04/04/2016 Comp Metabolic Rbm214 B/ C Ratio 28.6 Ratio 04/04/2016 Comp Metabolic Tzn173 CA LCIUM 9.1 mg/dL 04/04/2016 Comp Metabolic Tfx526 AL K PHOS 42 U/L 04/04/2016 Comp Metabolic Bne941 T(SGOT) 18 U/L 04/04/2016 Comp Metabolic Ica116 AL T(SGPT) 17 U/L 04/04/2016 Comp Metabolic Fxz783 BI LI T 0.4 mg/dL 04/04/2016 Comp Metabolic Cer807 AL BUMIN 3.8 g/dL 04/04/2016 Comp Metabolic Kuk873 TP RO 6.0 g/dL 04/04/2016 Comp Metabolic Wmn724 GL OB 2.2 g/dL 04/04/2016 Comp Metabolic Dml985 A/ G Ratio 1.7 Ratio 04/04/2016 Comp Metabolic Lcb762 Os mo 278 mOsmo 04/04/2016 Urinalysis Ord28 [...] 29.6 pg 03/28/2016 Cbc With Differential Ord2 [place]% 11.7 % 03/28/2016 Cbc With Differential Ord2 [...] 1.14 K/ul 03/28/2016 Cbc With Differential Ord2 [place] ABS# 0.4 K/ul 03/28/2016 Cbc With Differential Ord2 Eos ABS# 0.1 K/ul 03/28/2016 Cbc With Differential Ord2 Baso ABS# 0.0 K/ul 03/28/2016 Cbc With Differential Ord2 New Analyzer Notice Please note new ref ranges s tarting 11-21-2015 due to implemntation of new five part differential hematolgy analyzer. 03/28/2016 Comp Metabolic Rtm373 NA 137 mEq/L 03/28/2016 Comp Metabolic Wwf282 K 3.5 mEq/L 03/28/2016 Comp Metabolic Slt171 CL 105 mEq/L 03/28/2016 Comp Metabolic Uxd167 CO2 27.0 mEq/L 03/28/2016 Comp Metabolic Zka546 AN ION GAP 9 03/28/2016 Comp Metabolic Mqw089 GL UCOSE 174 mg/dL 03/28/2016 Comp Metabolic Ukt388 Cr eat 0.5 mg/dL 03/28/2016 Comp Metabolic Avs322 eG FR 131 ml/min/1.73m2 03/10 Comp Metabolic Lmi630 BUN 13 mg/dL 03/28/2016 Comp Metabolic Ohb274 B/ C Ratio 26.5 Ratio 03/28/2016 Comp Metabolic Pre111 CA LCIUM 8.7 mg/dL 03/28/2016 Comp Metabolic Mwu168 AL K PHOS 31 U/L 03/28/2016 Comp Metabolic Rlb028 T(SGOT) 20 U/L 03/28/2016 Comp Metabolic Wbh295 AL T(SGPT) 19 U/L 03/28/2016 Comp Metabolic Uha202 BI LI T 0.4 mg/dL 03/28/2016 Comp Metabolic Ucs740 AL BUMIN 3.5 g/dL 03/28/2016 Comp Metabolic Mlm474 TP RO 5.3 g/dL 03/28/2016 Comp Metabolic Pwv316 GL OB 1.8 g/dL 03/28/2016 Comp Metabolic Qwg301 A/ G Ratio 2.0 Ratio 03/28/2016 Comp Metabolic Rvy260 Os mo 278 mOsmo 03/28/2016 Urinalysis Ord28 [...] collection if refrigerated) 03/28/2016 Testosterone Free Direct [id number] FREE TESTOSTERONE <0.2 pg/mL 03/13/2016 Estradiol 539981 ESTRADI OL <5.0 pg/mL 03/12/2016 Progesterone Hsn472 Prog 0.56 ng/mL 03/10/2016 Homocyst(E)Ine Plasma 664281 HOMOCYSTEINE, TOTAL 10.9 umol/L 01/18/2016 Mthfr 150581 MTHFR C677T: HETEROZYGOUS MUTATION DETECTED 02/2016 Mthfr 504281 MTHFR A1298 C: HETEROZYGOUS MUTATION DETECTED 01/11/2016 Mthfr 181789 INTERPRETAT ION: 01/11/2016 Iodine Serum 030298 IOD INE, SERUM 131.0 ug/L 01/10/2016 Tsh Ord6 hTSH II 2.11 uIU/mL 01/07/2016 Comp Metabolic Rwx186 NA 139 mEq/L 01/07/2016 Comp Metabolic Iwg426 K 4.0 mEq/L 01/07/2016 Comp Metabolic Jih367 CL 104 mEq/L 01/07/2016 Comp Metabolic Bbn373 CO2 26.0 mEq/L 01/07/2016 Comp Metabolic Iay887 AN ION GAP 13 01/07/2016 Comp Metabolic Iop146 GL UCOSE 86 mg/dL 01/07/2016 Comp Metabolic Sof863 Cr eat 0.6 mg/dL 01/07/2016 Comp Metabolic Img310 eG FR 100 ml/min/1.73m2 12/11 Comp Metabolic Xij617 BUN 18 mg/dL 01/07/2016 Comp Metabolic Zcq499 B/ C Ratio 29.0 Ratio 01/07/2016 Comp Metabolic Iri760 CA LCIUM 9.4 mg/dL 01/07/2016 Comp Metabolic Exs001 AL K PHOS 40 U/L 01/07/2016 Comp Metabolic Arw567 T(SGOT) 20 U/L 01/07/2016 Comp Metabolic Xrm438 AL T(SGPT) 24 U/L 01/07/2016 Comp Metabolic Ngc044 BI LI T 0.6 mg/dL 01/07/2016 Comp Metabolic Zdu041 AL BUMIN 4.1 g/dL 01/07/2016 Comp Metabolic Yvm860 TP RO 6.4 g/dL 01/07/2016 Comp Metabolic Zsn477 GL OB 2.3 g/dL 01/07/2016 Comp Metabolic Ohw566 A/ G Ratio 1.8 Ratio 01/07/2016 Comp Metabolic Fik043 Os mo 279 mOsmo 01/07/2016 Lipid Ord30 [...] Ord28 U-Com Culture to follow 11/26/2015 Progesterone Idx323 Prog >40.00 ng/mL 11/26/2015 Testosterone Free Direct [id number] FREE TESTOSTERONE 0.6 pg/mL 10/01/2015 Estradiol 735961 ESTRADI OL <5.0 pg/mL 09/26/2015 Urinalysis Ord28 [...] Urinalysis Ord28 U-Yeast NEGATIVE 09/25/2015 Comp Metabolic Pjd560 NA 142 mEq/L 09/25/2015 Comp Metabolic Jts557 K 4.3 mEq/L 09/25/2015 Comp Metabolic Uqe288 CL 110 mEq/L 09/25/2015 Comp Metabolic Wcp334 CO2 23.0 mEq/L 09/25/2015 Comp Metabolic Jnb382 AN ION GAP 13 09/25/2015 Comp Metabolic Ezw492 GL UCOSE 76 mg/dL 09/25/2015 Comp Metabolic Seq195 Cr eat 0.8 mg/dL 09/25/2015 Comp Metabolic Frs567 eG FR 79 ml/min/1.73m2 09/25 Comp Metabolic Cwc601 BUN 17 mg/dL 09/25/2015 Comp Metabolic Eux462 B/ C Ratio 22.4 Ratio 09/25/2015 Comp Metabolic Xzw173 CA LCIUM 9.4 mg/dL 09/25/2015 Comp Metabolic Ezy083 AL K PHOS 45 U/L 09/25/2015 Comp Metabolic Vsx717 T(SGOT) 20 U/L 09/25/2015 Comp Metabolic Rav457 AL T(SGPT) 18 U/L 09/25/2015 Comp Metabolic Yfv842 BI LI T 0.5 mg/dL 09/25/2015 Comp Metabolic Jeo468 AL BUMIN 4.0 g/dL 09/25/2015 Comp Metabolic Qfg587 TP RO 6.2 g/dL 09/25/2015 Comp Metabolic Wvo822 GL OB 2.2 g/dL 09/25/2015 Comp Metabolic Bxb970 A/ G Ratio 1.8 Ratio 09/25/2015 Comp Metabolic Tid247 Os mo 283 mOsmo 09/25/2015 Tsh Ord6 hTSH II 4.05 uIU/mL 09/25/2015 Progesterone Dqq567 Prog 21.38 ng/mL 09/25/2015 Free T4 Tql581 FREE T4 0.78 ng/dL 09/25/2015 Cbc With [...] RDW 14.3 % 09/25/2015 Testosterone Free Direct 921303 FREE TESTOSTERONE 1.2 pg/mL 08/31/2015 Estradiol 244800 ESTRADI OL <5.0 pg/mL 08/29/2015 Progesterone Twb636 Prog 4.37 ng/mL 08/28/2015 Fungal Screen I 310959 * *ASPERGILLUS AB BY ID . 07/23/2015 Fungal Screen I 319442 A SPERGILLUS AB BY ID None Detected 015 Fungal Screen I 387798 * *BLASTOMYCES ANTIBODY BY CF & ID . 07/23/2015 Fungal Screen I 799873 B LASTOMYCES AB,CF <1:8 07/23/2015 Fungal Screen I 695396 B LASTOMYCES AB,ID None Detected 015 Fungal Screen I 030666 * *MAXINE ANTIBODY BY ID . 07/23/2015 Fungal Screen I 797743 C ANDIDA AB BY ID Detected 07/23/2015 Fungal Screen I 405488 * *COCCIDIOIDES ANTIBODIES, IGG & IGM . 07/23/2015 Fungal Screen I 531446 C OCCIDIOIDES AB IGM 0.3 IV 07/23/2015 Fungal Screen I 211194 C OCCIDIOIDES AB IGG 0.4 IV 07/23/2015 Fungal Screen I 879806 * *HISTOPLASMA ANTIBODY BY ID . 07/23/2015 Fungal Screen I 607153 H ISTOPLASMA ABS (ID) None Detected 015 Francisella Tularensis Abs 928254 F. TULARENSIS, IGG 0 U/mL 07/17/2015 Francisella Tularensis Abs 574760 F. TULARENSIS, IGM 0 U/mL 07/17/2015 Vitamin D 25 Oh Lgu7736 VITAMIN D, 25 HYDROXY 142.21 ng/mL 07/13/2015 Antistrptolysin-O Qualitative Yqv674 ASO Negative 07/12/2015 B12 Vef895 B12 956.00 pg/ml 07/12/2015 Cbc With Differential [...] Ord2 RDW 15.1 % 07/10/2015 Free T4 Mmq368 FREE T4 0.79 ng/dL 06/12/2015 Urinalysis Ord28 [...] Ord2 RDW 16.0 % 06/04/2015 Comp Metabolic Zea247 NA 139 mEq/L 06/04/2015 Comp Metabolic Bfr560 K 3.9 mEq/L 06/04/2015 Comp Metabolic Crg106 CL 108 mEq/L 06/04/2015 Comp Metabolic Wyg809 CO2 26.0 mEq/L 06/04/2015 Comp Metabolic Vfd894 AN ION GAP 9 06/04/2015 Comp Metabolic Djz495 GL UCOSE 74 mg/dL 06/04/2015 Comp Metabolic Fuy213 Cr eat 0.6 mg/dL 06/04/2015 Comp Metabolic Fam036 eG FR 102 ml/min/1.73m2 05/10 Comp Metabolic Tda831 BUN 18 mg/dL 06/04/2015 Comp Metabolic Tta821 B/ C Ratio 29.5 Ratio 06/04/2015 Comp Metabolic Rpo016 CA LCIUM 9.0 mg/dL 06/04/2015 Comp Metabolic Clf187 AL K PHOS 44 U/L 06/04/2015 Comp Metabolic Mpu653 T(SGOT) 22 U/L 06/04/2015 Comp Metabolic Ygu632 AL T(SGPT) 23 U/L 06/04/2015 Comp Metabolic Dfe641 BI LI T 0.4 mg/dL 06/04/2015 Comp Metabolic Iqs715 AL BUMIN 4.0 g/dL 06/04/2015 Comp Metabolic Azp146 TP RO 5.8 g/dL 06/04/2015 Comp Metabolic Rvd467 GL OB 1.8 g/dL 06/04/2015 Comp Metabolic Xfk303 A/ G Ratio 2.2 Ratio 06/04/2015 Comp Metabolic Esx858 Os mo 278 mOsmo 06/04/2015 Tsh Ord6 [...] 4: G0439 03/11/2016 THER/PROPH/DIAG INJ SC/IM CPT-4: 44136 12/27/2015 Vital Signs Date Vital 01/24/2019 Blood Pressure 1: 140/78 Code: 8480-6 BMI: 19.9 Code: 85566-1 Heart Rate 1: 84 bpm Height: 5' SpO2: 95% Weight: 102 lbs 01/10/2019 Blood Pressure 1: 126/62 Code: 8480-6 BMI: 19.9 Code: 15565-1 Heart Rate 1: 90 bpm Height: 5' SpO2: 94% Temperature: 36.6 (C ) / 97.8 (F) Weight: 102 lbs 11/25/2018 Blood Pressure 1: 128/74 Code: 8480-6 BMI: 19.7 Code: 79509-8 Heart Rate 1: 86 bpm Height: 5' SpO2: 97% Weight: 101 lbs 09/15/2018 Blood Pressure 1: 130/70 Code: 8480-6 BMI: 20.6 Code: 47863-7 Heart Rate 1: 75 bpm Height: 5' SpO2: 99% Weight: 105 lbs 8 oz 09/10/2018 Blood Pressure 1: 126/68 Code: 8480-6 BMI: 20.7 Code: 44434-0 Heart Rate 1: 63 bpm Height: 5' SpO2: 96% Waist Measure (cm): 66 cm Weight: 106 lbs 06/01/2018 Blood Pressure 1: 156/76 Code: 8480-6 BMI: 20.1 Code: 14481-7 Heart Rate 1: 68 bpm Height: 5' SpO2: 99% Weight: 103 lbs 05/24/2018 Blood Pressure 1: 120/60 Code: 8480-6 BMI: 20.5 Code: 67193-9 Heart Rate 1: 82 bpm Height: 5' SpO2: 98% Weight: 105 lbs 05/19/2018 Blood Pressure 1: 140/72 Code: 8480-6 BMI: 20.5 Code: 78892-0 Heart Rate 1: 96 bpm Height: 5' SpO2: 98% Weight: 105 lbs 01/12/2018 Blood Pressure 1: 146/78 Code: 8480-6 BMI: 21.1 Code: 07096-9 Heart Rate 1: 85 bpm Height: 5' SpO2: 95% Weight: 108 lbs 10/12/2017 Blood Pressure 1: 138/72 Code: 8480-6 BMI: 21.1 Code: 19365-2 Heart Rate 1: 96 bpm Height: 5' SpO2: 98% Weight: 108 lbs 08/06/2017 Blood Pressure 1: 130/78 Code: 8480-6 BMI: 20.5 Code: 95931-6 Heart Rate 1: 89 bpm Height: 5' SpO2: 98% Weight: 105 lbs 05/13/2017 Blood Pressure 1: 122/70 Code: 8480-6 BMI: 20.5 Code: 64799-8 Heart Rate 1: 80 bpm Height: 5' SpO2: 97% Weight: 105 lbs 03/19/2017 Blood Pressure 1: 138/80 Code: 8480-6 BMI: 20.5 Code: 55716-6 Heart Rate 1: 83 bpm Height: 5' SpO2: 97% Waist Measure (cm): 74 cm Weight: 105 lbs 03/18/2017 Blood Pressure 1: 138/80 Code: 8480-6 BMI: 20.5 Code: 33530-7 Heart Rate 1: 83 bpm Height: 5' SpO2: 97% Weight: 105 lbs 01/27/2017 Blood Pressure 1: 142/68 Code: 8480-6 BMI: 20.5 Code: 73108-9 Heart Rate 1: 69 bpm Height: 5' SpO2: 97% Weight: 105 lbs 12/29/2016 Blood Pressure 1: 154/82 Code: 8480-6 BMI: 20.1 Code: 01270-5 Heart Rate 1: 76 bpm Height: 5' SpO2: 94% Temperature: 37.4 (C ) / 99.4 (F) Weight: 103 lbs 11/19/2016 Blood Pressure 1: 134/74 Code: 8480-6 BMI: 19.7 Code: 06766-4 Heart Rate 1: 64 bpm Height: 5' Weight: 101 lbs 08/13/2016 Blood Pressure 1: 118/56 Code: 8480-6 BMI: 19.5 Code: 41152-2 Heart Rate 1: 64 bpm Height: 5' SpO2: 97% Weight: 100 lbs 07/03/2016 Blood Pressure 1: 120/68 Code: 8480-6 BMI: 19.1 Code: 75459-6 Heart Rate 1: 80 bpm Height: 5' SpO2: 98% Weight: 98 lbs 05/07/2016 Blood Pressure 1: 116/58 Code: 8480-6 BMI: 19.1 Code: 68557-7 Heart Rate 1: 79 bpm Height: 5' SpO2: 98% Weight: 98 lbs 04/08/2016 Blood Pressure 1: 118/58 Code: 8480-6 BMI: 19.0 Code: 97915-7 Heart Rate 1: 78 bpm Height: 5' SpO2: 98% Weight: 97 lbs 8 oz 03/11/2016 Blood Pressure 1: 102/60 Code: 8480-6 BMI: 19.7 Code: 54449-4 Heart Rate 1: 75 bpm Height: 5' SpO2: 94% Waist Measure (cm): 71 cm Weight: 101 lbs 12/27/2015 Blood Pressure 1: 128/72 Code: 8480-6 BMI: 20.2 Code: 60259-2 Heart Rate 1: 95 bpm Height: 5' SpO2: 98% Weight: 103 lbs 8 oz 09/24/2015 Blood Pressure 1: 136/70 Code: 8480-6 BMI: 19.1 Code: 70800-2 Heart Rate 1: 72 bpm Height: 5' SpO2: 97% Weight: 98 lbs 06/26/2015 Blood Pressure 1: 144/64 Code: 8480-6 BMI: 18.9 Code: 84631-8 Heart Rate 1: 77 bpm Height: 5' SpO2: 98% Weight: 97 lbs 04/10/2015 Blood Pressure 1: 132/88 Code: 8480-6 BMI: 18.9 Code: 29293-2 Heart Rate 1: 83 bpm Height: 5' [...] Episodes daily 01/24/2019 None Location in the [facility] 01/24/2019 None Onset and Resolution [...] Alleviating Factors medication 09/15/2018 None hypothyroid Quality lunchroom mother deisy 09/15/2018 None hypothyroid Onset and Resolution [...] Alleviating Factors medication 05/19/2018 None hypothyroid Quality lunchroom mother deisy 05/19/2018 None hypertension Quality tari kebede [...] Encounters Encounter Performer Loca tion Codes Date ([id number]) 98713 EST. P ATIENT, LEVEL IV Diagnosis: Essential (primary) hypertension[ICD10: I10] Diagnosis: Headache[ICD10: R51] Diagnosis: Atrophy of thyroid (acquired)[ICD10: E03.4] Diagnosis: Other forms of dyspnea[ICD10: R06.09] Kailee Moreira MD, [facility] CPT-4: 14544 01/24/2019 ([id number]) 99092 EST. P ATIENT, LEVEL III Diagnosis: Headache[ICD10: R51] Diagnosis: Nasal congestion[ICD10: R09.81] Marixa Moreira MD, [facility] CPT- 4: 46497 01/10/2019 ([id number]) 64999 EST. 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 P ATIENT, LEVEL IV Diagnosis: Essential (primary) hypertension[ICD10: I10] Diagnosis: Atrophy of thyroid (acquired)[ICD10: E03.4] Diagnosis: Low back pain[ICD10: M54.5] Diagnosis: Other specified noninflammatory disorders of vagina[ICD10: N89.8] Kailee Moreira MD, [facility] CPT-4: 70737 09/15/2018 ([id number]) 44256 EST. P ATIENT, LEVEL III Diagnosis: Dizziness and giddiness[ICD10: R42] Diagnosis: Allergic contact dermatitis due to plants, except food[ICD10: L23.7] Marixa Moreira MD, [facility] CPT-4: 69449 06/01/2018 ([id number]) 43577 EST. P ATIENT, LEVEL III Diagnosis: Allergic contact dermatitis due to plants, except food[ICD10: L23.7] Marixa Moreira MD, [facility] CPT-4: 44459 05/24/2018 ([id number]) 10222 EST. P ATIENT, LEVEL IV Diagnosis: Essential (primary) hypertension[ICD10: I10] Diagnosis: Atrophy of thyroid (acquired)[ICD10: E03.4] Diagnosis: Obstructive sleep apnea (adult) (pediatric)[ICD10: G47.33] Kailee Moreira MD, C CPT-4: 77749 05/19/2018 ([id number]) 22463 EST. P ATIENT, LEVEL IV Diagnosis: Essential (primary) hypertension[ICD10: I10] Diagnosis: Atrophy of thyroid (acquired)[ICD10: E03.4] Diagnosis: Low back pain[ICD10: M54.5] Kailee Moreira MD, [facility] CPT-4: 74005 01/12/2018 ([id number]) 12643 EST. P ATIENT, LEVEL III Diagnosis: Headache[ICD10: R51] Kailee Moreira MD, [facility] CPT-4: 94882 10/12/2017 ([id number]) 43112 EST. P ATIENT, LEVEL IV Diagnosis: Atrophy of thyroid (acquired)[ICD10: E03.4] Diagnosis: Essential (primary) hypertension[ICD10: I10] Diagnosis: Obstructive sleep apnea (adult) (pediatric)[ICD10: G47.33] Kailee Moreira MD, C CPT-4: 98907 08/06/2017 ([id number]) 73806 EST. 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 P ATIENT, LEVEL IV Diagnosis: Atrophy of thyroid (acquired)[ICD10: E03.4] Diagnosis: Essential (primary) hypertension[ICD10: I10] Diagnosis: Encounter for screening for other musculoskeletal disorder[ICD10: Z13.828] Diagnosis: Low back pain[ICD10: M54.5] Diagnosis: Transient alteration of awareness[ICD10: R40.4] Kailee Moreira MD, C CPT-4: 88437 03/18/2017 ([id number]) 68530 EST. P ATIENT, LEVEL IV Diagnosis: Atrophy of thyroid (acquired)[ICD10: E03.4] Diagnosis: Essential (primary) hypertension[ICD10: I10] Diagnosis: Low back pain[ICD10: M54.5] Kailee Moreira MD, [facility] CPT-4: 18141 01/27/2017 ([id number]) 09709 EST. P ATIENT, LEVEL III Diagnosis: Acute recurrent maxillary sinusitis[ICD10: J01.01] Marixa Moreira MD, [facility] CPT-4: 34814 12/29/2016 ([id number]) 60073 EST. P ATIENT, LEVEL IV Diagnosis: Atrophy of thyroid (acquired)[ICD10: E03.4] Diagnosis: Essential (primary) hypertension[ICD10: I10] Kailee Moreria MD, [facility] CPT-4: 10467 11/19/2016 ([id number]) 03994 EST. P ATIENT, LEVEL IV Diagnosis: Atrophy of thyroid (acquired)[ICD10: E03.4] Diagnosis: Enterocolitis due to Clostridium difficile[ICD10: A04.7] Diagnosis: Essential (primary) hypertension[ICD10: I10] Kailee Moreira MD, [facility] CPT-4: 64459 08/13/2016 ([id number]) 89633 EST. P ATIENT, LEVEL IV Diagnosis: Essential (primary) hypertension[ICD10: I10] Diagnosis: Enterocolitis due to Clostridium difficile[ICD10: A04.7] Diagnosis: Hypothyroidism, unspecified[ICD10: E03.9] Diagnosis: Low back pain[ICD10: M54.5] aKilee Moreira MD, [facility] CPT-4: 96376 07/03/2016 ([id number]) 05570 EST. P ATIENT, LEVEL IV Diagnosis: Enterocolitis due to Clostridium difficile[ICD10: A04.7] Diagnosis: Lyme disease, unspecified[ICD10: A69.20] Kailee Moreira MD, C CPT-4: 52291 05/07/2016 ([id number]) 13801 EST. P ATIENT, LEVEL IV Diagnosis: Generalized abdominal rigidity[ICD10: R19.37] Diagnosis: Diarrhea, unspecified[ICD10: R19.7] Diagnosis: Lyme disease, unspecified[ICD10: A69.20] Kailee Moreira MD, [facility] CPT-4: 46634 04/08/2016 ([id number]) 50560 EST. P ATIENT, LEVEL IV Diagnosis: Hypothyroidism, unspecified[ICD10: E03.9] Diagnosis: Lyme disease, unspecified[ICD10: A69.20] Diagnosis: Tachycardia, unspecified[ICD10: R00.0] Kailee Moreira MD, [facility] CPT-4: 25430 12/27/2015 ([id number]) 78836 EST. P ATIENT, LEVEL III Diagnosis: Essential (primary) hypertension[ICD10: I10] Diagnosis: Benign lipomatous neoplasm of skin and subcutaneous tissue of other sites[ICD10: D17.39] Diagnosis: Low back pain[ICD10: M54.5] Kailee Moreira MD, [facility] CPT-4: 21760 09/24/2015 ([id number]) 77199 EST. P ATIENT, LEVEL IV Diagnosis: Low back pain[ICD9: 724.2] Diagnosis: HYPOTHYROIDISM[ICD9: 244.9] Kailee Moreira MD, [facility] CPT-4: 42923 06/26/2015 ([id number]) 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 01/24/2019 Patient Education: Patient Medication Summary Completed 01/24/2019 Patient Education: Hypertension Completed 01/24/2019 Appointment: Kailee Moreira WPtel: [phone] [facility] (15 min) Moderate 01/19/2019 Appointment: Nurse Visit 01/14/2019 Visit Plan: Headache -nasal congest ion-refill fioricet for prn use-kenalog injection today in the office -call if symptoms do not resolve or if any worse-patient verbalized understanding of plan. 01/10/2019 Appointment: Marixa Lakhani WPtel: [phone] [phone] [place] (15 min) Moderate 01/10/2019 Patient Education: [...] at home. 11/25/2018 Appointment: Kailee Moreira WPtel: [facility] (15 min) Moderate 11/25/2018 Patient Education: [...] the chiropractor. 09/15/2018 Appointment: Kailee Moreira WPtel: [phone] [facility] 30 min appointments only in this [...] care surrogate. 09/10/2018 Appointment: Kiersten Armando WPtel: [facility] [facility] - Annual Wellness Visit 09/10/2018 Patient Education: Patient Medication Summary Completed 09/10/2018 Appointment: Injection 06/14/2018 Visit Plan: Contact dermatitis-disc ussed with Dr Moreira -rx for dexamethasone sent to patient's pharmacy and instructed on use-will also send rx for topical betamethsone -instructed patient to call if symptoms do not resolve or if any worse Rnhtnyoop-NDC-rghohylf fluids-monitor blood pressure- call if dizziness does not resolve or if any worse-patient and verbalized understanding 06/01/2018 Appointment: Marixa Lakhani WPtel: [phone] [phone] [place] (15 min) Moderate 06/01/2018 Patient Education: Patient Medication Summary Completed 06/01/2018 Visit Plan: Contact dermatitis due to poison magalys/oak-kenalog injection today- pt is to use topical treatments as directed. Pt is cleanse clothing in hot water with soap, and call if symptoms do not improve or if they worsen. 05/24/2018 Appointment: Marixa Lakhani WPtel: [phone] [phone] [place] (15 min) Moderate 05/24/2018 Patient Education: Patient [...] when awakening. 05/19/2018 Appointment: Kailee Moreira WPtel: [facility] [place] (30 min) Complex 05/19/2018 Patient Education: Patient [...] thighs bilaterally 01/12/2018 Appointment: Kailee Moreira WPtel: [phone] [facility] (15 min) Moderate 01/12/2018 Patient Education: Patient Medication Summary Completed 01/12/2018 Appointment: Kailee Moreira WPtel: [phone] [facility] (15 min) Moderate 12/02/2017 Visit Plan: Headache - recommended patient to use PRN Fioricet for headaches - call if not improving. 10/12/2017 Appointment: Kailee Moreira WPtel: [phone] (15 min) Moderate 10/12/2017 Patient Education: [...] apnea - order humidification for cpap - [place] home patient/[facility]- find out if they need [...] at home. 08/06/2017 Appointment: Kailee Moreira WPtel: [facility] (15 min) Moderate 08/06/2017 Patient Education: Patient Medication Summary Completed 08/06/2017 Care Plan: Comp Metabolic Pending 08/06/2017 Care Plan: Tsh Pending 08/06/2017 Care Plan: Free T4 Pending 08/06/2017 Care Plan: Lipid Pending 08/06/2017 Care Plan: Cbc With Differential Pending 08/06/2017 Appointment: Kailee Moreira WPtel: [phone] [facility] (15 min) Moderate 07/21/2017 Visit Plan: [...] stop lisinopril. 05/13/2017 Appointment: Kailee Moreira WPtel: [facility] (15 min) Moderate 05/13/2017 Patient Education: Patient Medication Summary Completed 05/13/2017 Patient Education: Hypertension Completed 05/13/2017 Appointment: [facility]el[facility] ([facility]) Moderate 05/06/2017 Visit Plan: Medicare [...] care surrogate. 03/19/2017 App[facility]ment: [phone] [facility] - Annual Wellness Visit 03/19/2017 Patient [...] levels of control. p hysical therapy at [facility] - water therapy for back eeg - needs ordered at hospital. 03/18/2017 Appointment: [facility]el[phone] [place] (15 min) Moderate 03/18/2017 Patient Education: Patient [...] improve. 01/27/2017 Appointment: [phone] [place] (15 min) Moderate 01/27/2017 Patient Education: Patient Medication Summary Completed 01/27/2017 Patient Education: Hypertension Completed 01/27/2017 Visit Plan: Sinusitis - Pt has acut e infection - pain in face, maxillary region, Pt informed to use decongestant, RX given to patient, sinus rinses also recommended. Call if symptoms do not show improvement. 12/29/2016 Appointment: Marixa Lakhani WPtel: [phone] [id number] [place] (30 min) Complex 12/29/2016 Patient Education: [...] of control. 11/19/2016 Appointment: Kailee Moreira WPtel: [id number] (15 min) Moderate 11/19/2016 Patient Education: [...] have improved. 08/13/2016 Appointment: Ka[facility] Moreira WPtel[facility] ([facility]) Moderate 08/13/2016 Patient Education: Patient Medication Summary Completed 08/13/2016 Patient Education: Hypertension Completed 08/13/2016 Appointment: Kailee Moreira WPtel: [facility] [id number] ([facility] min) Complex 07/31/2016 Visit Plan: Hypertension [...] of control. 07/03/2016 Appointment: Kailee Moreira WPtel: [facility] [place] (15 min) Moderate 07/03/2016 Patient Education: Patient Medication Summary Completed 07/03/2016 Patient Education: Hypertension Completed 07/03/2016 Visit Plan: Cdiff colitis - pt to h ave repeat testing - if positive will have to repeat treatment. Continue with probiotic. Lymes disease - continue with treatment per Dr. Carrillo. alex sample x 18 days given to patient. 05/07/2016 Appointment: Kailee Moreira WPtel: [facility] [place] (15 min) Moderate 05/07/2016 Patient Education: Patient Medication Summary Completed 05/07/2016 Visit Plan: Diarrhea - suspect the diarrhea is Cdiff related - check stool and treat with flagyl, probiotic to increase to three times daily - continue to hold iv antibiotic. Lyme disease - treating with iv antibiotics - on hold while she has diarrhea. 04/08/2016 Appointment: Kailee Moreira WPtel: [facility] [place] (15 min) Moderate 04/08/2016 Patient Education: Patient Medication Summary Completed 04/08/2016 Appointment: Kailee Moreira WPtel: [facility] [place] (15 min) Moderate 04/03/2016 Visit Plan: Medicare [...] Summary Completed 03/11/2016 Appointment: Kailee Moreira WPtel: [id number] [id number] (15 min) Moderate 01/24/2016 Visit Plan: Tachycardia [...] of control. 12/27/2015 Appointment: Kailee Moreira WPtel: [id number] [id number] (15 min) Moderate 12/27/2015 Patient Education: Patient [...] not improve. 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 Diarrhea - discuss [...] previous levels of control. physical therapy at [facility] - water therapy for back [...]
--- OUTSIDE RECORDS SUMMARY | 2020-05-05 12:07 | XMS REPORT | CCD ---
Author Author Emily Lakhani Organization [facility] Address [address] [place] [address] Phone Care Team Providers Care Fourdrinier Tender Name Role Phone PP Unavailable CCM Unavailable Summary Purpose Interface Exchange Insurance Providers Payer name Policy type / Coverage type Covered republican ID Effective Begin Date Effective End Date WPS Medicare Part B Medicare Part B [id number] Unknown [employer] Medicare Part B [id number] Unknown Family history Mother Diagnosis Age At [...] Retir ed 04/10/[address]: 701028955 Never smoker 04/10/[address]: 064169429 Never drinks alcohol 04/10/2015 Allergies, Adverse Reactions, Alerts Substance Reaction Codes Entered Date Inactivated Date Status Penicillin Unknown 03/11/2016 No In active Date Active SULFA(SULFONAMIDE AN TIBIOTICS) Unknown 03/11/2016 No Inactive Date Active Past Medical History Illness Codes Condition Status Onset Date Resolved Date 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 ICD-10: E03.4 Active 11/18/2016 Unknown Diarrhea, unspecified ICD-9: 787.91 ICD-10: R19.7 Active 04/07/2016 Unknown Enterocolitis due to Clostridium difficile, recurrent ICD-9: 008.45 ICD-10: A04.71 Active 11/25/2018 Unknown Essential (primary) hypertension ICD-9: 401.9 ICD-10: [...] ICD-9: 327.23 ICD-10: G47.33 Active 08/06/2017 Unknown Headache ICD-9: 784.0 ICD-10: R51 Active 10/12/2017 Unknown 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) ICD-9: 244.8 ICD-10: E03.4 11/18/2016 Active Diarrhea, unspecified ICD-9: 787.91 ICD-10: R19.7 04/07/2016 Active Enterocolitis due to Clostridium difficile, recurrent ICD-9: 008.45 ICD-10: A04.71 11/25/2018 Active Essential (primary) hypertension ICD-9: 401.9 ICD-10: [...] (pediatric) ICD-9: 327.23 ICD-10: G47.33 08/06/2017 Active Headache ICD-9: 784.0 ICD-10: R51 10/12/2017 Active Generalized idiopath ic epilepsy and epileptic [...] Codes Instruc tions Start Date Stop Date s Fill Instructions cyclobenzaprine 5 mg tablet RxNorm: 854969 1 Tablet(s) PO TID 12/14/2018 12/20/2018 Active cyclobenzaprine 5 mg tablet RxNorm: 908901 1 Tablet(s) PO TID 12/14/2018 12/13/2018 Inactive [place] Thyroid 90 mg tablet RxNorm: 300440 Tablet(s) 1/2 TABLET( S) PO DAILY 11/18/2018 02/10/2020 Ac tive [place] Thyroid 60 mg tablet RxNorm: 354192 1 Tablet(s) PO 3 x we ek Leonel Dominguez 11/17/2018 11/17/2018 In active hold until she is ready to refill [place] Thyroid 30 mg tablet RxNorm: 027650 1 Tablet(s) PO 4 time s a week Thu SAT 11/17/2018 11/16/2018 Inactive Please fill now- she will use her curren t supply of 60mg until she needs refill [place] Thyroid 30 mg tablet RxNorm: 859302 1 Tablet(s) PO 4 time s a week Thu SAT 11/17/2018 11/17/2018 Inactive Please fill now- she will use her curren t supply of 60mg until she needs refill Flagyl 500 mg tablet RxNorm: 587227 1 Tablet(s) PO TID 2018 10/17/2018 Inactive Flagyl 500 mg tablet RxNorm: 762924 1 Tablet(s) PO TID 10/06/2018 10/05/2018 Inactive Flagyl 500 mg tablet RxNorm: 086025 1 Tablet(s) PO TID 10/06/2018 10/10/2018 Inactive cefdinir 300 mg capsule RxNorm: 426809 1 Capsule(s) PO BID 09/29/2018 10/05/2018 Inactive cefdinir 300 mg capsule RxNorm: 779028 1 Capsule(s) PO BID 09/29/2018 09/28/2018 Inactive estradiol 0.01% (0.1 mg/gram) vaginal cream RxNorm: 955389 1 Gram(s) VAG BIW 09/15/2018 03/13/2019 Ac tive Imitrex 50 mg tablet RxNorm: 790269 TAKE WITH ONSET OF MIGRAINE- MAY TAKE AN ADDITIONAL DOSE IF NO RELIEF OF HEADACHE IN 1 HOUR- MAX OF 3 DOSES IN 24 HOURS Tablet(s) 06/14/2018 No Stop Date Active betamethasone gwendolyn te 0.1 % topical cream RxNorm: 955804 1 Application TOP TID 06/01/2018 06/10/2018 In active dexamethasone 4 mg t ablet RxNorm: 009190 1 Tablet(s) PO daily 06/01/2018 06/05/2018 Inactive Kenalog 40 mg/mL sadiq pension for injection RxNorm: 9702871 1.5 Milliliter(s) In j 05/24/2018 05/24/2018 In active amitriptyline 10 mg tablet RxNorm: 500471 1/2 TO 1 TABLET(S) PO QPM 01/21/2018 09/14/2018 Inactive [place] Thyroid 60 mg tablet RxNorm: 222102 1 Tablet(s) PO daily 01/12/2018 11/16/2018 Inactive carvedilol 3.125 mg tablet RxNorm: 566565 1 Tablet(s) PO BID 10/12/2017 No Stop Date Active Fiorinal-Codeine #3 30 mg-50 mg-325 mg-40 mg capsule RxNorm: 929240 1 Capsule(s) PO BID 10/12/2017 11/10/2017 Inactive progesterone microni zed 100 mg capsule RxNorm: 785062 1 Capsule(s) PO daily on days 1- 25 of each month 10/12/2017 01/11/2018 Inactive [place] Thyroid 90 mg tablet RxNorm: 479376 1/2 Tablet(s) PO melinda y 1/2 TABLET(S) PO DAILY 08/06/2017 01/11/2018 Inactive [place] Thyroid 90 mg tablet RxNorm: 776114 1/2 TABLET(S) PO DAILY 07/14/2017 08/05/2017 Inactive Keppra 500 mg tablet RxNorm: 597323 1 Tablet(s) PO BID 05/13/2017 08/05/2017 Inactive Deplin (algal oil) 1 5 mg-90.314 mg capsule RxNorm: TAKE ONE CAPSULE BY MOUTH O NE TIME DAILY 05/13/2017 01/11/2018 Inactive Keppra 250 mg tablet RxNorm: 195716 1 Tablet(s) PO daily 04/23/2017 04/22/2017 Inactive take 1 tab qd x 1 week then increase to BID Keppra 250 mg tablet RxNorm: 567269 1 Tablet(s) PO daily 04/23/2017 05/12/2017 Inactive take 1 tab qd x 1 week then increase to BID cyclobenzaprine 5 mg tablet RxNorm: 841903 1 Tablet(s) PO TID as needed 02/03/2017 02/22/2017 In active cyclobenzaprine 5 mg tablet RxNorm: 277327 1 Tablet(s) PO TID as needed 02/03/2017 02/02/2017 In active [place] Thyroid 90 mg tablet RxNorm: 241913 1/2 Tablet(s) PO daily 11/19/2016 03/18/2017 Inactive amitriptyline 10 mg tablet RxNorm: 020227 1/2 to 1 Tablet(s) PO QPM 11/19/2016 11/13/2017 Inactive fluconazole 50 mg ta blet RxNorm: 298099 1 Tablet(s) PO daily 08/20/2016 09/02/2016 Inactive [place] Thyroid 90 mg tablet RxNorm: 714766 1/2 Tablet(s) PO daily 08/11/2016 11/18/2016 Inactive Flagyl 500 mg tablet RxNorm: 859085 1 Tablet(s) PO TID 07/28/2016 01/11/2018 Inactive Flagyl 500 mg tablet RxNorm: 312111 1 Tablet(s) PO TID 07/17/2016 07/27/2016 Inactive amitriptyline 10 mg tablet RxNorm: 398547 1/2 to 1 Tablet(s) PO QPM 07/03/2016 10/30/2016 Inactive metronidazole 500 mg tablet RxNorm: 338958 1 Tablet(s) PO QID 07/03/2016 07/12/2016 Inactive amitriptyline 25 mg tablet RxNorm: 870998 1/2 -1 Tablet(s) PO Q HS as needed insomnia 06/26/2016 07/02/2016 Inactive vancomycin 125 mg ca psule RxNorm: 699518 1 Capsule(s) PO QID 06/20/2016 06/29/2016 Inactive [place] Thyroid 30 mg tablet RxNorm: 347377 1.5 Tablet(s) PO daily 06/20/2016 06/19/2016 Inactive [place] Thyroid 30 mg tablet RxNorm: 219669 1.5 Tablet(s) PO daily 06/20/2016 08/10/2016 Inactive fluconazole 50 mg ta blet RxNorm: 317290 1 Tablet(s) PO daily 06/16/2016 08/19/2016 Inactive amitriptyline 25 mg tablet RxNorm: 971972 1/2 -1 Tablet(s) PO Q HS as needed insomnia 06/12/2016 06/11/2016 Inactive amitriptyline 25 mg tablet RxNorm: 852144 1/2 -1 Tablet(s) PO Q HS as needed insomnia 06/12/2016 06/25/2016 Inactive vancomycin 125 mg ca psule RxNorm: 331857 1 Capsule(s) PO QID 06/12/2016 06/19/2016 Inactive fluconazole 50 mg ta blet RxNorm: 672586 1 Tablet(s) PO daily 06/12/2016 06/15/2016 Inactive Diflucan 150 mg tablet RxNorm: 812089 1 Tablet(s) PO daily 06/05/2016 06/09/2016 Inactive Deplin (algal oil) 1 5 mg-90.314 mg capsule RxNorm: 1 Capsule(s) PO daily 06/05/2016 06/04/2016 In active Diflucan 150 mg tablet RxNorm: 105915 1 Tablet(s) PO daily 06/05/2016 06/04/2016 Inactive Deplin (algal oil) 1 5 mg-90.314 mg capsule RxNorm: 1 Capsule(s) PO daily 06/05/2016 05/12/2017 In active nystatin 500,000 uni t tablet RxNorm: 232814 4 Tablet(s) PO daily 05/21/2016 09/17/2016 Inactive Vitamin D3 5,000 uni t tablet RxNorm: 490963 Tablet(s) PO daily 05/07/2016 No Stop Date Active nystatin 500,000 uni t tablet RxNorm: 536388 1 Tablet(s) PO Q4H 05/07/2016 05/20/2016 Inactive fluconazole 100 mg t ablet RxNorm: 049090 1 Tablet(s) PO daily 05/07/2016 06/11/2016 Inactive progesterone microni zed 100 mg capsule RxNorm: 924692 3 Capsule(s) PO daily on days 1- 25 of each month 05/07/2016 2017 Inactive metronidazole 500 mg tablet RxNorm: 385812 1 Tablet(s) PO TID 04/30/2016 05/09/2016 Inactive metronidazole 500 mg tablet RxNorm: 779425 1 Tablet(s) PO TID 04/30/2016 04/29/2016 Inactive vancomycin 125 mg ca psule RxNorm: 240463 1 Capsule(s) PO QID 04/29/2016 05/08/2016 Inactive vancomycin 125 mg ca psule RxNorm: 779203 1 Capsule(s) PO QID 04/29/2016 04/28/2016 Inactive Flagyl 500 mg tablet RxNorm: 562396 1 Tablet(s) PO TID 04/09/2016 04/08/2016 Inactive Flagyl 500 mg tablet RxNorm: 516226 1 Tablet(s) PO TID 04/09/2016 04/22/2016 Inactive carvedilol 3.125 mg tablet RxNorm: 683344 1 Tablet(s) PO BID 04/08/2016 2017 Inactive [place] Thyroid 60 mg tablet RxNorm: 149815 Tablet(s) PO 1 Tablet (s) daily 01/31/2016 06/19/2016 In active Pt request 90 day supply 11/23/2015 11:1 1:54 AM [place] Thyroid 30 mg tablet RxNorm: 356394 1 Tablet(s) daily 01/28/2016 01/30/2016 Inactive Pt request 90 day supply 11/23/2015 11:1 1:54 AM [place] Thyroid 30 mg tablet RxNorm: 170334 1 Tablet(s) daily 01/21/2016 01/27/2016 Inactive Pt request 90 day supply 11/23/2015 11:1 1:54 AM [place] Thyroid 30 mg tablet RxNorm: 467795 Tablet(s) TAKE ONE AN D ONE-HALF (45 MG) TABLET BY MOUTH EVERY DAY 01/02/2016 01/20/2016 Inactive Pt request 90 day supply 11/23/2015 11:11:54 AM Xylocaine 20 mg/mL ( 2 %) injection solution RxNorm: 1868631 2.5 Milliliter(s) In j BID with cefepime 12/27/2015 01/25/2016 Inactive cefepime 1 gram solu tion for injection RxNorm: 4921421 Inj 12/1012/27/2015 Inactive [place] Thyroid 30 mg tablet RxNorm: 198110 TAKE ONE TABLET BY [facility] EVERY DAY 11/23/2015 01/01/2016 In active Pt request 90 day supply 11/23/2015 11:1 1:54 AM Voltaren 1 % topical gel RxNorm: 682203 2 Gram(s) TOP QID 09/24/2015 12/26/2015 Inactive cyclobenzaprine 10 m g tablet RxNorm: 016636 1 Tablet(s) PO Q6 as needed 08/27/2015 05/06/2016 In active [place] Thyroid 30 mg tablet RxNorm: 893772 1 Tablet(s) PO daily 06/21/2015 06/20/2015 Inactive [place] Thyroid 30 mg tablet RxNorm: 443868 1 Tablet(s) PO daily 06/21/2015 11/22/2015 Inactive Synthroid 25 mcg tablet RxNorm: 553214 1 Tablet(s) PO daily 06/07/2015 06/06/2015 Inactive KASEY-1 Synthroid 25 mcg tablet RxNorm: 026613 1 Tablet(s) PO daily 06/07/2015 06/20/2015 Inactive KASEY-1 ofloxacin 0.3 % ear drops RxNorm: 263574 1-2 Drop(s) OTIC OU Q 4H as needed No Start Date Active Aspirin Low Dose 81 mg tablet,delayed release RxNorm: 357725 1 Tablet(s) PO daily No Start Date Active tyrosine (bulk) powder RxNorm: 1 Miscellaneous dash every am No Start Date Active arginine (L-arginine ) oral RxNorm: 1091 oral No Sta rt Date Active glutathione RxNorm: 4890 miscellaneous No Start Date Active Plaquenil 200 mg tablet RxNorm: 424823 1 Tablet(s) PO BID No Start Date 05/19/2016 Inactive fluconazole 100 mg t ablet RxNorm: 728751 1/2 Tablet(s) PO daily No Start Date 05/06/2016 Inactive fluconazole 150 mg t ablet RxNorm: 890483 1 Tablet(s) PO QW x4 No Start Date 12/26/2015 Inactive progesterone microni zed 100 mg capsule RxNorm: 300489 2 Capsule(s) PO daily No Start Date 05/06/2016 Inactive nystatin 500,000 uni t tablet RxNorm: 366629 1 Tablet(s) PO QID No Start Date 05/06/2016 Inactive cyclobenzaprine 10 m g tablet RxNorm: 808497 1 Tablet(s) PO Q6 as needed No Start Date 08/26/2015 Inactive vitamin K oral RxNorm: 8308 oral No Start Date 12/26/2015 Inactive carvedilol 3.125 mg tablet RxNorm: 934654 1 Tablet(s) PO daily No Start Date 04/07/2016 Inactive lisinopril 5 mg tablet RxNorm: 726049 1 Tablet(s) PO daily No Start Date 05/12/2017 Inactive azithromycin 250 mg tablet RxNorm: 834409 1 Tablet(s) PO daily will incrase to 2 per day No Start Date 12/26/2015 Inactive Probiotic 4X oral RxNorm: 3886866 oral No Start Date 01/07/2016 Inactive Imitrex 50 mg tablet RxNorm: 590242 TAKE WITH ONSET OF MIGRAINE- MAY TAKE AN ADDITIONAL DOSE IF NO RELIEF OF HEADACHE IN 1 HOUR- MAX OF 3 DOSES IN 24 HOURS No Start Date 06/13/2018 Inactive Vitamin D3 1,000 uni t tablet RxNorm: 641234 Tablet(s) PO daily No Start Date 05/06/2016 Inactive progesterone microni zed 100 mg capsule RxNorm: 243223 3 Capsule(s) PO daily rx from [facility] No Start Date 12/26/2015 Inactive lorazepam 0.5 mg tablet RxNorm: 269203 1/2-1 Tablet(s) PO daily as needed No Start Date 03/10/2016 Inactive Multiple Vitamin oral RxNorm: 44558 oral No Start Date 05/06/2016 Inactive Medication Administered Medication Codes Instruc tions Start Date Status Kenalog 40 mg/mL suspension for injection RxNorm: 3584787 1.5Milliliter 05/24/2018 No longer Active cefepime 1 gram solution for injection RxNorm: 9643027 12/27/2015 No longer A ctive Immunizations No Immunization data Assessments Condition Codes Effectiv e Dates Other specified bacterial intestinal infections ICD-10: A04.8 ICD-9: 008.41 11/25/2018 Enterocolitis due to Clostridium difficile, recurrent ICD-10: A04.71 ICD-9: 008.45 11/25/2018 Essential (primary) hypertension ICD -10: I10 ICD-9: 401.9 11/25/2018 Low back pain ICD-10: M54.5 ICD-9: 724.2 09/15/2018 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 ICD-9: 625.8 09/15/2018 Atrophy of thyroid (acquired) ICD-10 : E03.4 ICD-9: 244.8 09/15/2018 Encounter for general adult medical exam ination with abnormal findings ICD-10: Z00.01 ICD-9: V70.0 09/10/2018 Dizziness and giddiness ICD-10: R42 ICD-9: 780.4 06/01/2018 Allergic contact dermatitis due to plants, except food ICD-10: L23.7 ICD-9: 692.6 06/01/2018 Obstructive sleep apnea (adult) (pediatric) ICD-10: G47.33 ICD-9: 327.23 05/19/2018 Headache ICD-10: R51 ICD-9: 784.0 10/12/2017 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, [...] Visit Reason For Visit Effective Dates Notes diarrhea 11/25/2018 hypertension 09/15/2018 Annual Medicare Wellness [...] Result Date Cbc With Differential Ord2 WBC 4.25 K/ul 06/14/2018 Cbc With Differential Ord2 RBC 4.59 M/ul 06/14/2018 Cbc With Differential Ord2 HGB 13.7 g/dl 06/14/2018 Cbc With Differential Ord2 HCT 41.7 % 06/14/2018 Cbc With Differential Ord2 Neut% 47.6 % 06/14/2018 Cbc With Differential Ord2 MCV 90.8 fl 06/14/2018 Cbc With Differential Ord2 Lymph% 32.9 % 06/14/2018 Cbc With Differential Ord2 Morgan% 13.9 % 06/14/2018 Cbc With Differential Ord2 MCH 29.8 pg 06/14/2018 Cbc With Differential Ord2 Eos% 4.9 % 06/14/2018 Cbc With Differential Ord2 MCHC 32.9 pg 06/14/2018 Cbc With Differential Ord2 Baso% 0.7 % 06/14/2018 Cbc With Differential Ord2 PLT 227 K/ul 06/14/2018 Cbc With Differential Ord2 Neut ABS# 2.02 K/ul 06/14/2018 Cbc With Differential Ord2 RDW 15.6 % 06/14/2018 Cbc With Differential Ord2 Lymph ABS# 1.40 K/ul 06/14/2018 Cbc With Differential Ord2 [place] ABS# 0.6 K/ul 06/14/2018 Cbc With Differential Ord2 Eos ABS# 0.2 K/ul 06/14/2018 Cbc With Differential Ord2 Baso ABS# 0.0 K/ul 06/14/2018 Free T4 Xvi953 FREE T4 0.66 ng/dL 06/14/2018 Lipid Ord30 CHOL 242 mg/dL 06/14/2018 Lipid Ord30 HDL 85.0 mg/dl 06/14/2018 Lipid Ord30 TRIG 83 mg/dL 06/14/2018 Lipid Ord30 LDL 140 mg/dL 06/14/2018 Lipid Ord30 C/HDL 2.8 Ratio 06/14/2018 Comp Metabolic Pbb230 NA 145 mEq/L 06/14/2018 Comp Metabolic Fjz601 K 4.0 mEq/L 06/14/2018 Comp Metabolic Stn973 CL 106 mEq/L 06/14/2018 Comp Metabolic Kbs300 CO2 31.0 mEq/L 06/14/2018 Comp Metabolic Emk612 AN ION GAP 12 06/14/2018 Comp Metabolic Ley753 GL UCOSE 88 mg/dL 06/14/2018 Comp Metabolic Tbv488 Cr eat 0.7 mg/dL 06/14/2018 Comp Metabolic Skt780 eG FR 92 ml/min/1.73m2 06/14 Comp Metabolic Clv620 BUN 9 mg/dL 06/14/2018 Comp Metabolic Nfp306 B/ C Ratio 13.6 Ratio 06/14/2018 Comp Metabolic Tpe083 CA LCIUM 9.0 mg/dL 06/14/2018 Comp Metabolic Pti907 AL K PHOS 36 U/L 06/14/2018 Comp Metabolic Czv157 T(SGOT) 21 U/L 06/14/2018 Comp Metabolic Wvl876 AL T(SGPT) 22 U/L 06/14/2018 Comp Metabolic Wlk868 BI LI T 0.3 mg/dL 06/14/2018 Comp Metabolic Rui813 AL BUMIN 3.8 g/dL 06/14/2018 Comp Metabolic Iat967 TP RO 5.8 g/dL 06/14/2018 Comp Metabolic Dqm216 GL OB 2.0 g/dL 06/14/2018 Comp Metabolic Jqm686 A/ G Ratio 2.0 Ratio 06/14/2018 Comp Metabolic Elf443 Os mo 287 mOsmo 06/14/2018 Tsh Ord6 TSH (3rd IS) 2.94 uIU/mL 06/14/2018 Free T4 Iat189 FREE T4 0.63 ng/dL 01/05/2018 Tsh Ord6 TSH (3rd IS) 1.48 uIU/mL 01/05/2018 Lipid Ord30 CHOL 246 mg/dL 01/05/2018 Lipid Ord30 HDL 79.0 mg/dl 01/05/2018 Lipid Ord30 TRIG 124 mg/dL 01/05/2018 Lipid Ord30 LDL 142 mg/dL 01/05/2018 Lipid Ord30 C/HDL 3.1 Ratio 01/05/2018 Lipid Ord30 CHOL 231 mg/dL 08/07/2017 Lipid Ord30 HDL 86.0 mg/dl 08/07/2017 Lipid Ord30 TRIG 82 mg/dL 08/07/2017 Lipid Ord30 LDL 129 mg/dL 08/07/2017 Lipid Ord30 C/HDL 2.7 Ratio 08/07/2017 Free T4 Pzp243 FREE T4 0.64 ng/dL 08/07/2017 Comp Metabolic Cbv659 NA 142 mEq/L 08/07/2017 Comp Metabolic Ysb670 K 4.1 mEq/L 08/07/2017 Comp Metabolic Yrg118 CL 105 mEq/L 08/07/2017 Comp Metabolic Bzf256 CO2 27.0 mEq/L 08/07/2017 Comp Metabolic Dul849 AN ION GAP 14 08/07/2017 Comp Metabolic Nms109 GL UCOSE 89 mg/dL 08/07/2017 Comp Metabolic Ksk537 Cr eat 0.7 mg/dL 08/07/2017 Comp Metabolic Iiv283 eG FR 86 ml/min/1.73m2 08/07 Comp Metabolic Dcy685 BUN 16 mg/dL 08/07/2017 Comp Metabolic Met624 B/ C Ratio 22.9 Ratio 08/07/2017 Comp Metabolic Rek519 CA LCIUM 9.8 mg/dL 08/07/2017 Comp Metabolic Qnb542 AL K PHOS 41 U/L 08/07/2017 Comp Metabolic Ofi812 T(SGOT) 26 U/L 08/07/2017 Comp Metabolic Zwm831 AL T(SGPT) 21 U/L 08/07/2017 Comp Metabolic Fvq001 BI LI T 0.5 mg/dL 08/07/2017 Comp Metabolic Zfq286 AL BUMIN 4.3 g/dL 08/07/2017 Comp Metabolic Ira146 TP RO 6.6 g/dL 08/07/2017 Comp Metabolic Rrz416 GL OB 2.3 g/dL 08/07/2017 Comp Metabolic Npw187 A/ G Ratio 1.9 Ratio 08/07/2017 Comp Metabolic Wmo836 Os mo 284 mOsmo 08/07/2017 Tsh Ord6 hTSH II 2.03 uIU/mL 08/07/2017 Cbc With Differential Ord2 WBC 4.25 K/ul 08/07/2017 Cbc With Differential Ord2 RBC 4.66 M/ul 08/07/2017 Cbc With Differential Ord2 HGB 14.1 g/dl 08/07/2017 Cbc With Differential Ord2 Neut% 45.1 % 08/07/2017 Cbc With Differential Ord2 HCT 42.1 % 08/07/2017 Cbc With Differential Ord2 Lymph% 35.1 % 08/07/2017 Cbc With Differential Ord2 MCV 90.3 fl 08/07/2017 Cbc With Differential Ord2 MCH 30.3 pg 08/07/2017 Cbc With Differential Ord2 Morgan% 13.9 % 08/07/2017 Cbc With Differential Ord2 [...] 1.49 K/ul 08/07/2017 Cbc With Differential Ord2 Morgan ABS# 0.6 K/ul 08/07/2017 Cbc With Differential [...] 92.3 fl 11/20/2016 Cbc With Differential Ord2 Morgan% 10.8 % 11/20/2016 Cbc With Differential Ord2 [...] 1.62 K/ul 11/20/2016 Cbc With Differential Ord2 Morgan ABS# 0.5 K/ul 11/20/2016 Cbc With Differential Ord2 Eos ABS# 0.2 K/ul 11/20/2016 Cbc With Differential Ord2 Baso ABS# 0.0 K/ul 11/20/2016 Free T4 Csw491 FREE T4 0.80 ng/dL 11/20/2016 Tsh Ord6 hTSH II 1.35 uIU/mL 11/20/2016 Comp Metabolic Ijb915 NA 139 mEq/L 11/20/2016 Comp Metabolic Wnb131 K 3.9 mEq/L 11/20/2016 Comp Metabolic Uhy887 CL 103 mEq/L 11/20/2016 Comp Metabolic Via215 CO2 30.0 mEq/L 11/20/2016 Comp Metabolic Wce401 AN ION GAP 10 11/20/2016 Comp Metabolic Edk962 GL UCOSE 85 mg/dL 11/20/2016 Comp Metabolic Sdi958 Cr eat 0.7 mg/dL 11/20/2016 Comp Metabolic Zqo287 eG FR 93 ml/min/1.73m2 11/20 Comp Metabolic Afg297 BUN 12 mg/dL 11/20/2016 Comp Metabolic Dzo170 B/ C Ratio 18.2 Ratio 11/20/2016 Comp Metabolic Lkx837 CA LCIUM 9.1 mg/dL 11/20/2016 Comp Metabolic Uuj721 AL K PHOS 34 U/L 11/20/2016 Comp Metabolic Vko397 T(SGOT) 18 U/L 11/20/2016 Comp Metabolic Ivn280 AL T(SGPT) 14 U/L 11/20/2016 Comp Metabolic Kcn060 BI LI T 0.5 mg/dL 11/20/2016 Comp Metabolic Kzi813 AL BUMIN 4.2 g/dL 11/20/2016 Comp Metabolic Kgi770 TP RO 6.3 g/dL 11/20/2016 Comp Metabolic Siv407 GL OB 2.1 g/dL 11/20/2016 Comp Metabolic Yyh530 A/ G Ratio 2.0 Ratio 11/20/2016 Comp Metabolic Dot384 Os mo 277 mOsmo 11/20/2016 Lipid Ord30 CHOL 189 mg/dL 11/20/2016 Lipid Ord30 HDL 81.0 mg/dl 11/20/2016 Lipid Ord30 TRIG 77 mg/dL 11/20/2016 Lipid Ord30 LDL 93 mg/dL 11/20/2016 Lipid Ord30 C/HDL 2.3 Ratio 11/20/2016 Testosterone Free Direct 043821 FREE TESTOSTERONE 0.7 pg/mL 10/06/2016 Estradiol 443508 ESTRADI OL 5.9 pg/mL 10/03/2016 Cortisol 013283 CORTISOL 23 ug/dL 10/03/2016 Progesterone Mpe778 Prog 17.38 ng/mL 10/01/2016 Free T4 Ppk522 FREE T4 0.66 ng/dL 08/13/2016 Tsh Ord6 hTSH II 0.99 uIU/mL 08/13/2016 Testosterone Free Direct 460646 FREE TESTOSTERONE <0.2 pg/mL 07/05/2016 Estradiol 528758 ESTRADI OL <5.0 pg/mL 07/03/2016 Progesterone Zlg936 Prog 23.37 ng/mL 07/02/2016 Tsh Ord6 hTSH II 0.24 uIU/mL 06/17/2016 Free T4 Ifw857 FREE T4 0.86 ng/dL 06/17/2016 Estradiol 923950 ESTRADI OL <5.0 pg/mL 05/21/2016 Progesterone Syl371 Prog 8.44 ng/mL 05/20/2016 Comp Metabolic Bjx095 NA 140 mEq/L 05/20/2016 Comp Metabolic Znk361 K 4.1 mEq/L 05/20/2016 Comp Metabolic Xid545 CL 106 mEq/L 05/20/2016 Comp Metabolic God370 CO2 26.0 mEq/L 05/20/2016 Comp Metabolic Mla745 AN ION GAP 12 05/20/2016 Comp Metabolic Krn337 GL UCOSE 81 mg/dL 05/20/2016 Comp Metabolic Xli995 Cr eat 0.5 mg/dL 05/20/2016 Comp Metabolic Phc430 eG FR 119 ml/min/1.73m2 05/09 Comp Metabolic Baa557 BUN 15 mg/dL 05/20/2016 Comp Metabolic Yms401 B/ C Ratio 28.3 Ratio 05/20/2016 Comp Metabolic Oml797 CA LCIUM 8.9 mg/dL 05/20/2016 Comp Metabolic Pma278 AL K PHOS 36 U/L 05/20/2016 Comp Metabolic Kam653 T(SGOT) 25 U/L 05/20/2016 Comp Metabolic Ozu607 AL T(SGPT) 23 U/L 05/20/2016 Comp Metabolic Jkm303 BI LI T 0.4 mg/dL 05/20/2016 Comp Metabolic Emu654 AL BUMIN 3.7 g/dL 05/20/2016 Comp Metabolic Inu505 TP RO 5.9 g/dL 05/20/2016 Comp Metabolic Zxo752 GL OB 2.2 g/dL 05/20/2016 Comp Metabolic Vwb606 A/ G Ratio 1.7 Ratio 05/20/2016 Comp Metabolic Yvw600 Os mo 279 mOsmo 05/20/2016 Cbc With [...] 18.4 % 05/20/2016 Cbc With Differential Ord2 Morgan% 13.0 % 05/20/2016 Cbc With Differential Ord2 [...] 0.85 K/ul 05/20/2016 Cbc With Differential Ord2 Morgan ABS# 0.6 K/ul 05/20/2016 Cbc With Differential [...] collection if refrigerated) 05/20/2016 Testosterone Free Direct 757010 FREE TESTOSTERONE 0.6 pg/mL 05/19/2016 Estradiol 149700 ESTRADI OL <5.0 pg/mL 05/16/2016 Comp Metabolic Eik737 NA 140 mEq/L 05/15/2016 Comp Metabolic Nah805 K 3.8 mEq/L 05/15/2016 Comp Metabolic Qsn104 CL 106 mEq/L 05/15/2016 Comp Metabolic Yne555 CO2 26.0 mEq/L 05/15/2016 Comp Metabolic Okf028 AN ION GAP 12 05/15/2016 Comp Metabolic Szr954 GL UCOSE 77 mg/dL 05/15/2016 Comp Metabolic Pgf443 Cr eat 0.5 mg/dL 05/15/2016 Comp Metabolic Mtf274 eG FR 144 ml/min/1.73m2 05/2016 Comp Metabolic Zbf420 BUN 18 mg/dL 05/15/2016 Comp Metabolic Kgp592 B/ C Ratio 40.0 Ratio 05/15/2016 Comp Metabolic Dfh079 CA LCIUM 8.8 mg/dL 05/15/2016 Comp Metabolic Miy521 AL K PHOS 28 U/L 05/15/2016 Comp Metabolic Ndj386 T(SGOT) 19 U/L 05/15/2016 Comp Metabolic Cwl357 AL T(SGPT) 19 U/L 05/15/2016 Comp Metabolic Jiw263 BI LI T 0.5 mg/dL 05/15/2016 Comp Metabolic Wej654 AL BUMIN 3.6 g/dL 05/15/2016 Comp Metabolic Qur824 TP RO 5.6 g/dL 05/15/2016 Comp Metabolic Ogq100 GL OB 2.0 g/dL 05/15/2016 Comp Metabolic Wrv634 A/ G Ratio 1.8 Ratio 05/15/2016 Comp Metabolic Ikq232 Os mo 280 mOsmo 05/15/2016 Progesterone Tbe771 Prog 9.08 ng/mL 05/15/2016 Cbc With Differential [...] 29.9 pg 05/15/2016 Cbc With Differential Ord2 Morgan% 14.1 % 05/15/2016 Cbc With Differential Ord2 Eos% 5.8 % 05/15/2016 Cbc With Differential Ord2 MCHC 33.1 pg 05/15/2016 Cbc With Differential Ord2 Baso% 0.4 % 05/15/2016 Cbc With Differential Ord2 PLT 262 K/ul 05/15/2016 Cbc With Differential Ord2 RDW 16.3 % 05/15/2016 Cbc With Differential Ord2 Neut ABS# 2.13 K/ul 05/15/2016 Cbc With Differential Ord2 Lymph ABS# 1.42 K/ul 05/15/2016 Cbc With Differential Ord2 Morgan ABS# 0.6 K/ul 05/15/2016 Cbc With Differential [...] Ord28 U-Com None 05/15/2016 Testosterone Free Direct [id number] FREE TESTOSTERONE 0.2 pg/mL 05/09/2016 Estradiol [id number] ESTRADI OL <5.0 pg/mL 05/07/2016 Cbc With Differential Ord2 WBC 3.88 K/ul 05/06/2016 Cbc With Differential Ord2 RBC 4.14 M/ul 05/06/2016 Cbc With Differential Ord2 HGB 12.1 g/dl 05/06/2016 Cbc With Differential Ord2 HCT 37.3 % 05/06/2016 Cbc With Differential Ord2 Neut% 55.3 % 05/06/2016 Cbc With Differential Ord2 MCV 90.1 fl 05/06/2016 Cbc With Differential Ord2 Lymph% 29.9 % 05/06/2016 Cbc With Differential Ord2 Morgan% 10.1 % 05/06/2016 Cbc With Differential Ord2 MCH 29.2 pg 05/06/2016 Cbc With Differential Ord2 MCHC 32.4 pg 05/06/2016 Cbc With Differential Ord2 Eos% 3.9 % 05/06/2016 Cbc With Differential Ord2 Baso% 0.8 % 05/06/2016 Cbc With Differential Ord2 PLT 255 K/ul 05/06/2016 Cbc With Differential Ord2 RDW 15.7 % 05/06/2016 Cbc With Differential Ord2 Neut ABS# 2.15 K/ul 05/06/2016 Cbc With Differential Ord2 Lymph ABS# 1.16 K/ul 05/06/2016 Cbc With Differential Ord2 Morgan ABS# 0.4 K/ul 05/06/2016 Cbc With Differential Ord2 Eos ABS# 0.2 K/ul 05/06/2016 Cbc With Differential Ord2 Baso ABS# 0.0 K/ul 05/06/2016 Comp Metabolic Chi489 NA 141 mEq/L 05/06/2016 Comp Metabolic Pks403 K 3.6 mEq/L 05/06/2016 Comp Metabolic Cvq272 CL 107 mEq/L 05/06/2016 Comp Metabolic Ire422 CO2 28.0 mEq/L 05/06/2016 Comp Metabolic Rxf668 AN ION GAP 10 05/06/2016 Comp Metabolic Ixe189 GL UCOSE 138 mg/dL 05/06/2016 Comp Metabolic Onu579 Cr eat 0.5 mg/dL 05/06/2016 Comp Metabolic Fwa380 eG FR 119 ml/min/1.73m2 04/10 Comp Metabolic Pwl368 BUN 16 mg/dL 05/06/2016 Comp Metabolic Uao639 B/ C Ratio 30.2 Ratio 05/06/2016 Comp Metabolic Vpu171 CA LCIUM 8.9 mg/dL 05/06/2016 Comp Metabolic Qdx474 AL K PHOS 29 U/L 05/06/2016 Comp Metabolic Kqn332 T(SGOT) 20 U/L 05/06/2016 Comp Metabolic Psa024 AL T(SGPT) 21 U/L 05/06/2016 Comp Metabolic Xms527 BI LI T 0.4 mg/dL 05/06/2016 Comp Metabolic Fzv971 AL BUMIN 3.6 g/dL 05/06/2016 Comp Metabolic Fxy131 TP RO 5.5 g/dL 05/06/2016 Comp Metabolic Vut359 GL OB 1.9 g/dL 05/06/2016 Comp Metabolic Fdk197 A/ G Ratio 1.9 Ratio 05/06/2016 Comp Metabolic Aqs700 Os mo 285 mOsmo 05/06/2016 Urinalysis Ord28 [...] hours from collection if refrigerated) 05/06/2016 Progesterone Gwv489 Prog 0.98 ng/mL 05/06/2016 Progesterone Ums850 Prog 5.99 ng/mL 04/29/2016 Cbc With Differential Ord2 WBC 3.97 K/ul 04/29/2016 Cbc With Differential Ord2 RBC 4.33 M/ul 04/29/2016 Cbc With Differential Ord2 HGB 12.8 g/dl 04/29/2016 Cbc With Differential Ord2 Neut% 46.3 % 04/29/2016 Cbc With Differential Ord2 HCT 38.5 % 04/29/2016 Cbc With Differential Ord2 Lymph% 35.8 % 04/29/2016 Cbc With Differential Ord2 MCV 88.9 fl 04/29/2016 Cbc With Differential Ord2 Morgan% 13.1 % 04/29/2016 Cbc With Differential Ord2 MCH 29.6 pg 04/29/2016 Cbc With Differential Ord2 Eos% 4.0 % 04/29/2016 Cbc With Differential Ord2 MCHC 33.2 pg 04/29/2016 Cbc With Differential Ord2 PLT 253 K/ul 04/29/2016 Cbc With Differential Ord2 Baso% 0.8 % 04/29/2016 Cbc With Differential Ord2 RDW 15.5 % 04/29/2016 Cbc With Differential Ord2 Neut ABS# 1.84 K/ul 04/29/2016 Cbc With Differential Ord2 Lymph ABS# 1.42 K/ul 04/29/2016 Cbc With Differential Ord2 Morgan ABS# 0.5 K/ul 04/29/2016 Cbc With Differential Ord2 Eos ABS# 0.2 K/ul 04/29/2016 Cbc With Differential Ord2 Baso ABS# 0.0 K/ul 04/29/2016 Comp Metabolic Boe721 NA 141 mEq/L 04/29/2016 Comp Metabolic Jhg085 K 4.0 mEq/L 04/29/2016 Comp Metabolic Fzq384 CL 108 mEq/L 04/29/2016 Comp Metabolic Kyh996 CO2 27.0 mEq/L 04/29/2016 Comp Metabolic Led633 AN ION GAP 10 04/29/2016 Comp Metabolic Cdq226 GL UCOSE 69 mg/dL 04/29/2016 Comp Metabolic Wex525 Cr eat 0.5 mg/dL 04/29/2016 Comp Metabolic Stb866 eG FR 122 ml/min/1.73m2 04/10 Comp Metabolic Jvf639 BUN 19 mg/dL 04/29/2016 Comp Metabolic Aid889 B/ C Ratio 36.5 Ratio 04/29/2016 Comp Metabolic Hdg777 CA LCIUM 9.1 mg/dL 04/29/2016 Comp Metabolic Ssh402 AL K PHOS 31 U/L 04/29/2016 Comp Metabolic Wbi544 T(SGOT) 20 U/L 04/29/2016 Comp Metabolic Hnu571 AL T(SGPT) 22 U/L 04/29/2016 Comp Metabolic Mks837 BI LI T 0.6 mg/dL 04/29/2016 Comp Metabolic Vsl450 AL BUMIN 3.8 g/dL 04/29/2016 Comp Metabolic Zpk896 TP RO 5.9 g/dL 04/29/2016 Comp Metabolic Mya171 GL OB 2.1 g/dL 04/29/2016 Comp Metabolic Nvd709 A/ G Ratio 1.8 Ratio 04/29/2016 Comp Metabolic Ksm314 Os mo 282 mOsmo 04/29/2016 Urinalysis Ord28 [...] U-VOL VOLUME SUFFICIENT (10mL) 04/29/2016 Urinalysis Ord28 U-Com Amorphous Phosphates Present; Urine bryan ed if culture needed (specimen acceptable for 48 hours from collection if refrigerated) 04/29/2016 Urinalysis Ord28 U-Yeast NEGATIVE 04/29/2016 Urinalysis Ord28 U-Color Yellow 04/25/2016 Urinalysis [...] from collection if refrigerated) 04/25/2016 Comp Metabolic Fpd260 NA 138 mEq/L 04/25/2016 Comp Metabolic Noz090 K 3.6 mEq/L 04/25/2016 Comp Metabolic Cee663 CL 105 mEq/L 04/25/2016 Comp Metabolic Uwm500 CO2 27.0 mEq/L 04/25/2016 Comp Metabolic Jcs715 AN ION GAP 10 04/25/2016 Comp Metabolic Nxf914 GL UCOSE 190 mg/dL 04/25/2016 Comp Metabolic Doc667 Cr eat 0.5 mg/dL 04/25/2016 Comp Metabolic Vzq446 eG FR 128 ml/min/1.73m2 04/09 Comp Metabolic Tat861 BUN 17 mg/dL 04/25/2016 Comp Metabolic Epu903 B/ C Ratio 34.0 Ratio 04/25/2016 Comp Metabolic Lnl181 CA LCIUM 8.7 mg/dL 04/25/2016 Comp Metabolic Bzn577 AL K PHOS 32 U/L 04/25/2016 Comp Metabolic Xom500 T(SGOT) 23 U/L 04/25/2016 Comp Metabolic Dxv867 AL T(SGPT) 22 U/L 04/25/2016 Comp Metabolic Lwl584 BI LI T 0.5 mg/dL 04/25/2016 Comp Metabolic Zgl247 AL BUMIN 3.6 g/dL 04/25/2016 Comp Metabolic Wva473 TP RO 5.5 g/dL 04/25/2016 Comp Metabolic Cix725 GL OB 1.9 g/dL 04/25/2016 Comp Metabolic Jva088 A/ G Ratio 1.9 Ratio 04/25/2016 Comp Metabolic Zvd994 Os mo 282 mOsmo 04/25/2016 Cbc With [...] 29.6 pg 04/25/2016 Cbc With Differential Ord2 Morgan% 13.0 % 04/25/2016 Cbc With Differential Ord2 MCHC 33.3 pg 04/25/2016 Cbc With Differential Ord2 Eos% 2.5 % 04/25/2016 Cbc With Differential Ord2 PLT 252 K/ul 04/25/2016 Cbc With Differential Ord2 Baso% 0.9 % 04/25/2016 Cbc With Differential Ord2 Neut ABS# 1.70 K/ul 04/25/2016 Cbc With Differential Ord2 RDW 15.2 % 04/25/2016 Cbc With Differential Ord2 Lymph ABS# 1.01 K/ul 04/25/2016 Cbc With Differential Ord2 Morgan ABS# 0.4 K/ul 04/25/2016 Cbc With Differential [...] 26.2 % 04/04/2016 Cbc With Differential Ord2 Morgan% 16.1 % 04/04/2016 Cbc With Differential Ord2 [...] 1.32 K/ul 04/04/2016 Cbc With Differential Ord2 Morgan ABS# 0.8 K/ul 04/04/2016 Cbc With Differential Ord2 Eos ABS# 0.2 K/ul 04/04/2016 Cbc With Differential Ord2 Baso ABS# 0.0 K/ul 04/04/2016 Comp Metabolic Vtt746 NA 140 mEq/L 04/04/2016 Comp Metabolic Zif493 K 4.1 mEq/L 04/04/2016 Comp Metabolic Wqt755 CL 106 mEq/L 04/04/2016 Comp Metabolic Qfn623 CO2 27.0 mEq/L 04/04/2016 Comp Metabolic Whw217 AN ION GAP 11 04/04/2016 Comp Metabolic Kdw590 GL UCOSE 71 mg/dL 04/04/2016 Comp Metabolic Sus929 Cr eat 0.5 mg/dL 04/04/2016 Comp Metabolic Amw793 eG FR 131 ml/min/1.73m2 03/10 Comp Metabolic Tvu853 BUN 14 mg/dL 04/04/2016 Comp Metabolic Fth536 B/ C Ratio 28.6 Ratio 04/04/2016 Comp Metabolic Llc685 CA LCIUM 9.1 mg/dL 04/04/2016 Comp Metabolic Imr958 AL K PHOS 42 U/L 04/04/2016 Comp Metabolic Ncx094 T(SGOT) 18 U/L 04/04/2016 Comp Metabolic Rel585 AL T(SGPT) 17 U/L 04/04/2016 Comp Metabolic Dih296 BI LI T 0.4 mg/dL 04/04/2016 Comp Metabolic Kwy434 AL BUMIN 3.8 g/dL 04/04/2016 Comp Metabolic Eyh714 TP RO 6.0 g/dL 04/04/2016 Comp Metabolic Cdk825 GL OB 2.2 g/dL 04/04/2016 Comp Metabolic Rtw419 A/ G Ratio 1.7 Ratio 04/04/2016 Comp Metabolic Svq539 Os mo 278 mOsmo 04/04/2016 Urinalysis Ord28 [...] from collection if refrigerated) 04/04/2016 Urinalysis Ord28 U-Color Yellow 03/28/2016 Urinalysis Ord28 [...] refrigerated) 03/28/2016 Urinalysis Ord28 U-Yeast NEGATIVE 03/28/2016 Comp Metabolic Oai423 NA 137 mEq/L 03/28/2016 Comp Metabolic Glt617 K 3.5 mEq/L 03/28/2016 Comp Metabolic Kgf767 CL 105 mEq/L 03/28/2016 Comp Metabolic Lkj945 CO2 27.0 mEq/L 03/28/2016 Comp Metabolic Lyo291 AN ION GAP 9 03/28/2016 Comp Metabolic Mfm791 GL UCOSE 174 mg/dL 03/28/2016 Comp Metabolic Dmn955 Cr eat 0.5 mg/dL 03/28/2016 Comp Metabolic Jqd563 eG FR 131 ml/min/1.73m2 03/10 Comp Metabolic Olm347 BUN 13 mg/dL 03/28/2016 Comp Metabolic Iwq284 B/ C Ratio 26.5 Ratio 03/28/2016 Comp Metabolic Fju903 CA LCIUM 8.7 mg/dL 03/28/2016 Comp Metabolic Bww225 AL K PHOS 31 U/L 03/28/2016 Comp Metabolic Swx557 T(SGOT) 20 U/L 03/28/2016 Comp Metabolic Qhp779 AL T(SGPT) 19 U/L 03/28/2016 Comp Metabolic Oiy513 BI LI T 0.4 mg/dL 03/28/2016 Comp Metabolic Hrz395 AL BUMIN 3.5 g/dL 03/28/2016 Comp Metabolic Fbg666 TP RO 5.3 g/dL 03/28/2016 Comp Metabolic Zev000 GL OB 1.8 g/dL 03/28/2016 Comp Metabolic Kvk089 A/ G Ratio 2.0 Ratio 03/28/2016 Comp Metabolic Eam418 Os mo 278 mOsmo 03/28/2016 Cbc With Differential Ord2 WBC 3.43 K/ul [...] 29.6 pg 03/28/2016 Cbc With Differential Ord2 Morgan% 11.7 % 03/28/2016 Cbc With Differential Ord2 Eos% 3.8 % 03/28/2016 Cbc With Differential Ord2 MCHC 33.2 pg 03/28/2016 Cbc With Differential Ord2 PLT 207 K/ul 03/28/2016 Cbc With Differential Ord2 Baso% 0.3 % 03/28/2016 Cbc With Differential Ord2 RDW 14.6 % 03/28/2016 Cbc With Differential Ord2 Neut ABS# 1.75 K/ul 03/28/2016 Cbc With Differential Ord2 Lymph ABS# 1.14 K/ul 03/28/2016 Cbc With Differential Ord2 Morgan ABS# 0.4 K/ul 03/28/2016 Cbc With Differential Ord2 Eos ABS# 0.1 K/ul 03/28/2016 Cbc With Differential Ord2 Baso ABS# 0.0 K/ul 03/28/2016 Cbc With Differential Ord2 New Analyzer Notice Please note new ref ranges s tarting 11-21-2015 due to implemntation of new five part differential hematolgy analyzer. 03/28/2016 Testosterone Free Direct [id number] FREE TESTOSTERONE <0.2 pg/mL 03/13/2016 Estradiol 869308 ESTRADI OL <5.0 pg/mL 03/12/2016 Progesterone Upa102 Prog 0.56 ng/mL 03/10/2016 Homocyst(E)Ine Plasma 116459 HOMOCYSTEINE, TOTAL 10.9 umol/L 01/18/2016 Mthfr 474561 MTHFR C677T: HETEROZYGOUS MUTATION DETECTED 02/2016 Mthfr 363875 MTHFR A1298 C: HETEROZYGOUS MUTATION DETECTED 01/11/2016 Mthfr 436161 INTERPRETAT ION: 01/11/2016 Iodine Serum 119473 IOD INE, SERUM 131.0 ug/L 01/10/2016 Tsh Ord6 hTSH II 2.11 uIU/mL 01/07/2016 Comp Metabolic Fdj551 NA 139 mEq/L 01/07/2016 Comp Metabolic Zpx504 K 4.0 mEq/L 01/07/2016 Comp Metabolic Oid963 CL 104 mEq/L 01/07/2016 Comp Metabolic Euc609 CO2 26.0 mEq/L 01/07/2016 Comp Metabolic Hho115 AN ION GAP 13 01/07/2016 Comp Metabolic Ivf881 GL UCOSE 86 mg/dL 01/07/2016 Comp Metabolic Rns492 Cr eat 0.6 mg/dL 01/07/2016 Comp Metabolic Daq627 eG FR 100 ml/min/1.73m2 12/11 Comp Metabolic Gar760 BUN 18 mg/dL 01/07/2016 Comp Metabolic Lbp095 B/ C Ratio 29.0 Ratio 01/07/2016 Comp Metabolic Hzo594 CA LCIUM 9.4 mg/dL 01/07/2016 Comp Metabolic Tsu078 AL K PHOS 40 U/L 01/07/2016 Comp Metabolic Zvl354 T(SGOT) 20 U/L 01/07/2016 Comp Metabolic Lov841 AL T(SGPT) 24 U/L 01/07/2016 Comp Metabolic Mvx468 BI LI T 0.6 mg/dL 01/07/2016 Comp Metabolic Rlg428 AL BUMIN 4.1 g/dL 01/07/2016 Comp Metabolic Hqc894 TP RO 6.4 g/dL 01/07/2016 Comp Metabolic Dkw464 GL OB 2.3 g/dL 01/07/2016 Comp Metabolic Tkh988 A/ G Ratio 1.8 Ratio 01/07/2016 Comp Metabolic Puw856 Os mo 279 mOsmo 01/07/2016 Lipid Ord30 [...] Ord28 U-Com Culture to follow 11/26/2015 Progesterone Lta351 Prog >40.00 ng/mL 11/26/2015 Testosterone Free Direct [id number] FREE TESTOSTERONE 0.6 pg/mL 10/01/2015 Estradiol 345511 ESTRADI OL <5.0 pg/mL 09/26/2015 Progesterone Omh172 Prog 21.38 ng/mL 09/25/2015 Cbc With Differential [...] Ord2 RDW 14.3 % 09/25/2015 Free T4 Awg272 FREE T4 0.78 ng/dL 09/25/2015 Tsh Ord6 hTSH II 4.05 uIU/mL 09/25/2015 Comp Metabolic Jgk479 NA 142 mEq/L 09/25/2015 Comp Metabolic Nkn741 K 4.3 mEq/L 09/25/2015 Comp Metabolic Hwe557 CL 110 mEq/L 09/25/2015 Comp Metabolic Exi206 CO2 23.0 mEq/L 09/25/2015 Comp Metabolic Rtc029 AN ION GAP 13 09/25/2015 Comp Metabolic Soc111 GL UCOSE 76 mg/dL 09/25/2015 Comp Metabolic Mhl432 Cr eat 0.8 mg/dL 09/25/2015 Comp Metabolic Ssd374 eG FR 79 ml/min/1.73m2 09/25 Comp Metabolic Hdh266 BUN 17 mg/dL 09/25/2015 Comp Metabolic Kny802 B/ C Ratio 22.4 Ratio 09/25/2015 Comp Metabolic Nxl952 CA LCIUM 9.4 mg/dL 09/25/2015 Comp Metabolic Wgi730 AL K PHOS 45 U/L 09/25/2015 Comp Metabolic Tkz763 T(SGOT) 20 U/L 09/25/2015 Comp Metabolic Qex276 AL T(SGPT) 18 U/L 09/25/2015 Comp Metabolic Rlw605 BI LI T 0.5 mg/dL 09/25/2015 Comp Metabolic Hfr262 AL BUMIN 4.0 g/dL 09/25/2015 Comp Metabolic Rgb937 TP RO 6.2 g/dL 09/25/2015 Comp Metabolic Rbd886 GL OB 2.2 g/dL 09/25/2015 Comp Metabolic Rid823 A/ G Ratio 1.8 Ratio 09/25/2015 Comp Metabolic Bkn552 Os mo 283 mOsmo 09/25/2015 Urinalysis Ord28 U-Color Yellow 09/25/2015 Urinalysis Ord28 [...] 48 hours from collection if refrigerated) 09/25/2015 Testosterone Free Direct [id number] FREE TESTOSTERONE 1.2 pg/mL 08/31/2015 Estradiol 187149 ESTRADI OL <5.0 pg/mL 08/29/2015 Progesterone Skg708 Prog 4.37 ng/mL 08/28/2015 Fungal Screen I 287383 * *ASPERGILLUS AB BY ID . 07/23/2015 Fungal Screen I 479844 A SPERGILLUS AB BY ID None Detected 015 Fungal Screen I 098386 * *BLASTOMYCES ANTIBODY BY CF & ID . 07/23/2015 Fungal Screen I 380286 B LASTOMYCES AB,CF <1:8 07/23/2015 Fungal Screen I 751362 B LASTOMYCES AB,ID None Detected 015 Fungal Screen I 446195 * *MAXINE ANTIBODY BY ID . 07/23/2015 Fungal Screen I 039527 C ANDIDA AB BY ID Detected 07/23/2015 Fungal Screen I 105346 * *COCCIDIOIDES ANTIBODIES, IGG & IGM . 07/23/2015 Fungal Screen I 066635 C OCCIDIOIDES AB IGM 0.3 IV 07/23/2015 Fungal Screen I 845349 C OCCIDIOIDES AB IGG 0.4 IV 07/23/2015 Fungal Screen I 512195 * *HISTOPLASMA ANTIBODY BY ID . 07/23/2015 Fungal Screen I 244954 H ISTOPLASMA ABS (ID) None Detected 015 Francisella Tularensis Abs [id number] F. TULARENSIS, IGG 0 U/mL 07/17/2015 Francisella Tularensis Abs 629502 F. TULARENSIS, IGM 0 U/mL 07/17/2015 Vitamin D 25 Oh Fat6875 VITAMIN D, 25 HYDROXY 142.21 ng/mL 07/13/2015 Antistrptolysin-O Qualitative Gae352 ASO Negative 07/12/2015 B12 Efh519 B12 956.00 pg/ml 07/12/2015 Cbc With Differential [...] Ord2 RDW 15.1 % 07/10/2015 Free T4 Gvv681 FREE T4 0.79 ng/dL 06/12/2015 Urinalysis Ord28 [...] U-VOL VOLUME SUFFICIENT (10mL) 06/04/2015 Urinalysis Ord28 U-Com None 06/04/2015 Urinalysis Ord28 U-Yeast NEGATIVE 06/04/2015 Lipid Ord30 CHOL 203 mg/dL 06/04/2015 [...] Ord2 RDW 16.0 % 06/04/2015 Comp Metabolic Nhq452 NA 139 mEq/L 06/04/2015 Comp Metabolic Tpg993 K 3.9 mEq/L 06/04/2015 Comp Metabolic Gtc956 CL 108 mEq/L 06/04/2015 Comp Metabolic Ssv640 CO2 26.0 mEq/L 06/04/2015 Comp Metabolic Njm978 AN ION GAP 9 06/04/2015 Comp Metabolic Cpv991 GL UCOSE 74 mg/dL 06/04/2015 Comp Metabolic Qdj188 Cr eat 0.6 mg/dL 06/04/2015 Comp Metabolic Dwz439 eG FR 102 ml/min/1.73m2 05/10 Comp Metabolic Mee153 BUN 18 mg/dL 06/04/2015 Comp Metabolic Dmc086 B/ C Ratio 29.5 Ratio 06/04/2015 Comp Metabolic Aqu915 CA LCIUM 9.0 mg/dL 06/04/2015 Comp Metabolic Hkb915 AL K PHOS 44 U/L 06/04/2015 Comp Metabolic Rhm661 T(SGOT) 22 U/L 06/04/2015 Comp Metabolic Eaa735 AL T(SGPT) 23 U/L 06/04/2015 Comp Metabolic Ohe794 BI LI T 0.4 mg/dL 06/04/2015 Comp Metabolic Ozf720 AL BUMIN 4.0 g/dL 06/04/2015 Comp Metabolic Bxj565 TP RO 5.8 g/dL 06/04/2015 Comp Metabolic Kjk718 GL OB 1.8 g/dL 06/04/2015 Comp Metabolic Loy228 A/ G Ratio 2.2 Ratio 06/04/2015 Comp Metabolic Hon066 Os mo 278 mOsmo 06/04/2015 Tsh Ord6 hTSH II 5.17 uIU/mL 06/04/2015 Review of Systems System Result Effective Dates Constitutional No recent illness 11/25/2018 Constitutional No [...] Procedures Procedure Codes Date PPPS, SUBSEQ VISIT CPT- 4: G0439 09/10/2018 TRIAMCINOLONE ACET I [place] NOS CPT-4: J3301 05/24/2018 PPPS, SUBSEQ VISIT CPT- 4: G0439 03/19/2017 PPPS, SUBSEQ VISIT CPT- 4: G0439 03/11/2016 THER/PROPH/DIAG INJ SC/IM CPT-4: 25347 12/27/2015 Vital Signs Date Vital 11/25/2018 Blood Pressure 1: 128/74 Code: 8480-6 BMI: 19.7 Code: 39049-3 Heart Rate 1: 86 bpm Height: 5' SpO2: 97% Weight: 101 lbs 09/15/2018 Blood Pressure 1: 130/70 Code: 8480-6 BMI: 20.6 Code: 33451-4 Heart Rate 1: 75 bpm Height: 5' SpO2: 99% Weight: 105 lbs 8 oz 09/10/2018 Blood Pressure 1: 126/68 Code: 8480-6 BMI: 20.7 Code: 13674-8 Heart Rate 1: 63 bpm Height: 5' SpO2: 96% Waist Measure (cm): 66 cm Weight: 106 lbs 06/01/2018 Blood Pressure 1: 156/76 Code: 8480-6 BMI: 20.1 Code: 48036-7 Heart Rate 1: 68 bpm Height: 5' SpO2: 99% Weight: 103 lbs 05/24/2018 Blood Pressure 1: 120/60 Code: 8480-6 BMI: 20.5 Code: 02855-5 Heart Rate 1: 82 bpm Height: 5' SpO2: 98% Weight: 105 lbs 05/19/2018 Blood Pressure 1: 140/72 Code: 8480-6 BMI: 20.5 Code: 50993-4 Heart Rate 1: 96 bpm Height: 5' SpO2: 98% Weight: 105 lbs 01/12/2018 Blood Pressure 1: 146/78 Code: 8480-6 BMI: 21.1 Code: 84907-0 Heart Rate 1: 85 bpm Height: 5' SpO2: 95% Weight: 108 lbs 10/12/2017 Blood Pressure 1: 138/72 Code: 8480-6 BMI: 21.1 Code: 69023-2 Heart Rate 1: 96 bpm Height: 5' SpO2: 98% Weight: 108 lbs 08/06/2017 Blood Pressure 1: 130/78 Code: 8480-6 BMI: 20.5 Code: 35422-6 Heart Rate 1: 89 bpm Height: 5' SpO2: 98% Weight: 105 lbs 05/13/2017 Blood Pressure 1: 122/70 Code: 8480-6 BMI: 20.5 Code: 04205-9 Heart Rate 1: 80 bpm Height: 5' SpO2: 97% Weight: 105 lbs 03/19/2017 Blood Pressure 1: 138/80 Code: 8480-6 BMI: 20.5 Code: 68693-8 Heart Rate 1: 83 bpm Height: 5' SpO2: 97% Waist Measure (cm): 74 cm Weight: 105 lbs 03/18/2017 Blood Pressure 1: 138/80 Code: 8480-6 BMI: 20.5 Code: 06626-4 Heart Rate 1: 83 bpm Height: 5' SpO2: 97% Weight: 105 lbs 01/27/2017 Blood Pressure 1: 142/68 Code: 8480-6 BMI: 20.5 Code: 12766-2 Heart Rate 1: 69 bpm Height: 5' SpO2: 97% Weight: 105 lbs 12/29/2016 Blood Pressure 1: 154/82 Code: 8480-6 BMI: 20.1 Code: 49413-6 Heart Rate 1: 76 bpm Height: 5' SpO2: 94% Temperature: 37.4 (C ) / 99.4 (F) Weight: 103 lbs 11/19/2016 Blood Pressure 1: 134/74 Code: 8480-6 BMI: 19.7 Code: 93921-3 Heart Rate 1: 64 bpm Height: 5' Weight: 101 lbs 08/13/2016 Blood Pressure 1: 118/56 Code: 8480-6 BMI: 19.5 Code: 86764-6 Heart Rate 1: 64 bpm Height: 5' SpO2: 97% Weight: 100 lbs 07/03/2016 Blood Pressure 1: 120/68 Code: 8480-6 BMI: 19.1 Code: 66992-5 Heart Rate 1: 80 bpm Height: 5' SpO2: 98% Weight: 98 lbs 05/07/2016 Blood Pressure 1: 116/58 Code: 8480-6 BMI: 19.1 Code: 61435-0 Heart Rate 1: 79 bpm Height: 5' SpO2: 98% Weight: 98 lbs 04/08/2016 Blood Pressure 1: 118/58 Code: 8480-6 BMI: 19.0 Code: 47937-8 Heart Rate 1: 78 bpm Height: 5' SpO2: 98% Weight: 97 lbs 8 oz 03/11/2016 Blood Pressure 1: 102/60 Code: 8480-6 BMI: 19.7 Code: 65559-8 Heart Rate 1: 75 bpm Height: 5' SpO2: 94% Waist Measure (cm): 71 cm Weight: 101 lbs 12/27/2015 Blood Pressure 1: 128/72 Code: 8480-6 BMI: 20.2 Code: 46149-6 Heart Rate 1: 95 bpm Height: 5' SpO2: 98% Weight: 103 lbs 8 oz 09/24/2015 Blood Pressure 1: 136/70 Code: 8480-6 BMI: 19.1 Code: 91986-2 Heart Rate 1: 72 bpm Height: 5' SpO2: 97% Weight: 98 lbs 06/26/2015 Blood Pressure 1: 144/64 Code: 8480-6 BMI: 18.9 Code: 82070-0 Heart Rate 1: 77 bpm Height: 5' SpO2: 98% Weight: 97 lbs 04/10/2015 Blood Pressure 1: 132/88 Code: 8480-6 BMI: 18.9 Code: 94119-8 Heart Rate 1: 83 bpm Height: 5' SpO2: 97% Weight: 97 lbs Functional Status No Functional Status data History of Present Illness Symptom Name Status Resu lt Effective Date Notes Quality constant 11/25/2018 None Quality loose 11/25/2018 [...] Alleviating Factors medication 09/15/2018 None hypothyroid Quality manager social responsibility deisy 09/15/2018 None hypothyroid Onset and Resolution [...] Alleviating Factors medication 05/19/2018 None hypothyroid Quality manager social responsibility deisy 05/19/2018 None hypertension Quality tari kebede [...] Encounter Performer Loca tion Codes Date () 27622 EST. P ATIENT, LEVEL IV Diagnosis: Other specified bacterial intestinal infections[ICD10: A04.8] Diagnosis: Enterocolitis due to Clostridium difficile, recurrent[ICD10: A04.71] Diagnosis: Essential (primary) hypertension[ICD10: I10] Kailee Moreira MD, [facility] CPT-4: 79881 11/25/2018 ([id number]) 34007 EST. P ATIENT, LEVEL IV Diagnosis: Essential (primary) hypertension[ICD10: I10] Diagnosis: Atrophy of thyroid (acquired)[ICD10: E03.4] Diagnosis: Low back pain[ICD10: M54.5] Diagnosis: Other specified noninflammatory disorders of vagina[ICD10: N89.8] Kailee Moreira MD, [facility] CPT-4: 06661 09/15/2018 ([id number]) 55352 EST. P ATIENT, LEVEL III Diagnosis: Dizziness and giddiness[ICD10: R42] Diagnosis: Allergic contact dermatitis due to plants, except food[ICD10: L23.7] Marixa Moreira MD, [facility] CPT-4: 42194 06/01/2018 ([id number]) 92741 EST. P ATIENT, LEVEL III Diagnosis: Allergic contact dermatitis due to plants, except food[ICD10: L23.7] Marixa Moreira MD, [facility] CPT-4: 49458 05/24/2018 ([id number]) 51912 EST. P ATIENT, LEVEL IV Diagnosis: Essential (primary) hypertension[ICD10: I10] Diagnosis: Atrophy of thyroid (acquired)[ICD10: E03.4] Diagnosis: Obstructive sleep apnea (adult) (pediatric)[ICD10: G47.33] Kailee Moreira MD, [facility] CPT-4: 90304 05/19/2018 ([id number]) 12076 EST. P ATIENT, LEVEL IV Diagnosis: Essential (primary) hypertension[ICD10: I10] Diagnosis: Atrophy of thyroid (acquired)[ICD10: E03.4] Diagnosis: Low back pain[ICD10: M54.5] Kailee Moreira MD, [facility] CPT-4: 77763 01/12/2018 ([id number]) 25398 EST. P ATIENT, LEVEL III Diagnosis: Headache[ICD10: R51] Kailee Moreira MD, [facility] CPT-4: 85082 10/12/2017 ([id number]) 15918 EST. P ATIENT, LEVEL IV Diagnosis: Atrophy of thyroid (acquired)[ICD10: E03.4] Diagnosis: Essential (primary) hypertension[ICD10: I10] Diagnosis: Obstructive sleep apnea (adult) (pediatric)[ICD10: G47.33] Kailee Moreira MD, [facility] CPT-4: 55941 08/06/2017 ([id number]) 10434 EST. 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 P ATIENT, LEVEL IV Diagnosis: Atrophy of thyroid (acquired)[ICD10: E03.4] Diagnosis: Essential (primary) hypertension[ICD10: I10] Diagnosis: Encounter for screening for other musculoskeletal disorder[ICD10: Z13.828] Diagnosis: Low back pain[ICD10: M54.5] Diagnosis: Transient alteration of awareness[ICD10: R40.4] Kailee Moreira MD, C CPT-4: 63636 03/18/2017 ([id number]) 91014 EST. P ATIENT, LEVEL IV Diagnosis: Atrophy of thyroid (acquired)[ICD10: E03.4] Diagnosis: Essential (primary) hypertension[ICD10: I10] Diagnosis: Low back pain[ICD10: M54.5] Kailee Moreira MD, [facility] CPT-4: 77662 01/27/2017 ([id number]) 01606 EST. P ATIENT, LEVEL III Diagnosis: Acute recurrent maxillary sinusitis[ICD10: J01.01] Marixa Moreira MD, [facility] CPT-4: 65064 12/29/2016 ([id number]) 94874 EST. P ATIENT, LEVEL IV Diagnosis: Atrophy of thyroid (acquired)[ICD10: E03.4] Diagnosis: Essential (primary) hypertension[ICD10: I10] Kailee Moreira MD, [facility] CPT-4: 12873 11/19/2016 ([id number]) 49916 EST. P ATIENT, LEVEL IV Diagnosis: Atrophy of thyroid (acquired)[ICD10: E03.4] Diagnosis: Enterocolitis due to Clostridium difficile[ICD10: A04.7] Diagnosis: Essential (primary) hypertension[ICD10: I10] Kailee Moreira MD, [facility] CPT-4: 93876 08/13/2016 ([id number]) 19118 EST. P ATIENT, LEVEL IV Diagnosis: Essential (primary) hypertension[ICD10: I10] Diagnosis: Enterocolitis due to Clostridium difficile[ICD10: A04.7] Diagnosis: Hypothyroidism, unspecified[ICD10: E03.9] Diagnosis: Low back pain[ICD10: M54.5] Kailee Moreira MD, [facility] CPT-4: 24752 07/03/2016 ([id number]) 40861 EST. P ATIENT, LEVEL IV Diagnosis: Enterocolitis due to Clostridium difficile[ICD10: A04.7] Diagnosis: Lyme disease, unspecified[ICD10: A69.20] Kailee Moreira MD, [facility] CPT-4: 05152 05/07/2016 ([id number]) 16324 EST. P ATIENT, LEVEL IV Diagnosis: Generalized abdominal rigidity[ICD10: R19.37] Diagnosis: Diarrhea, unspecified[ICD10: R19.7] Diagnosis: Lyme disease, unspecified[ICD10: A69.20] Kailee Moreira MD, [facility] CPT-4: 66531 04/08/2016 ([id number]) 96637 EST. P ATIENT, LEVEL IV Diagnosis: Hypothyroidism, unspecified[ICD10: E03.9] Diagnosis: Lyme disease, unspecified[ICD10: A69.20] Diagnosis: Tachycardia, unspecified[ICD10: R00.0] Kailee Moreira MD, [facility] CPT-4: 44959 12/27/2015 ([id number]) 93005 EST. P ATIENT, LEVEL III Diagnosis: Essential (primary) hypertension[ICD10: I10] Diagnosis: Benign lipomatous neoplasm of skin and subcutaneous tissue of other sites[ICD10: D17.39] Diagnosis: Low back pain[ICD10: M54.5] Kailee Moreira MD, [facility] CPT-4: 38696 09/24/2015 ([id number]) 07184 EST. 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 11/25/2018 Appointment: Kailee Moreira WPtel: [address] [place], [place] [phone] (15 min) Moderate 11/25/2018 Patient Education: Patient [...] the chiropractor. 09/15/2018 App[facility]ment[phone] 30 min appointments only in this slot [...] care surrogate. 09/10/2018 [facility]ment[phone] [facility] [facility] - Annual Wellness Visit 09/10/2018 Patient Education: Patient Medication Summary Completed 09/10/2018 Appointment: Injection 06/14/2018 Visit Plan: Contact dermatitis-disc ussed with Dr Moreira -rx for dexamethasone sent to patient's pharmacy and instructed on use-will also send rx for topical betamethsone -instructed patient to call if symptoms do not resolve or if any worse Khzdcuzop-GSH-oaxdwlwi fluids-monitor blood pressure- call if dizziness does not resolve or if any worse-patient and verbalized understanding 06/01/2018 Appointment: Marixa Lakhani WPtel: [phone] [phone] (15 min) Moderate 06/01/2018 Patient Education: Patient Medication Summary Completed 06/01/2018 Visit Plan: Contact dermatitis due to poison magalys/oak-kenalog injection today- pt is to use topical treatments as directed. Pt is cleanse clothing in hot water with soap, and call if symptoms do not improve or if they worsen. 05/24/2018 Appointment: Marixa Lakhani WPtel: [phone] [phone] (15 min) Moderate 05/24/2018 Patient Education: [...] when awakening. 05/19/2018 Appointment: Kailee Moreira WPtel: [facility] (30 min) Complex 05/19/2018 Patient Education: Patient [...] bilaterally 01/12/2018 Appointment: Kailee Moreira WPtel: [phone] [facility] (15 min) Moderate 01/12/2018 Patient Education: Patient Medication Summary Completed 01/12/2018 Appointment: Kailee Moreira WPtel: [phone] [phone] (15 min) Moderate 12/02/2017 Visit Plan: Headache - recommended patient to use PRN Fioricet for headaches - call if not improving. 10/12/2017 Appointment: Kailee Moreira WPtel: [phone] [phone] (15 min) Moderate 10/12/2017 Patient Education: [...] apnea - order humidification for cpap - [facility]- find out if they need [...] at home. 08/06/2017 App[facility]ment: [phone] [place] (15 min) Moderate 08/06/2017 Patient Education: Patient Medication Summary Completed 08/06/2017 Care Plan: Comp Metabolic Pending 08/06/2017 Care Plan: Tsh Pending 08/06/2017 Care Plan: Free T4 Pending 08/06/2017 Care Plan: Lipid Pending 08/06/2017 Care Plan: Cbc With Differential Pending 08/06/2017 Appointment: Kailee Moreira WPtel: [facility] (15 min) Moderate 07/21/2017 Visit Plan: [...] stop lisinopril. 05/13/2017 Appointment: Kailee Moreira WPtel: [facility] (15 min) Moderate 05/13/2017 Patient Education: Patient Medication Summary Completed 05/13/2017 Patient Education: Hypertension Completed 05/13/2017 Appointment: Kailee Moreira WPtel: [facility] (15 min) Moderate 05/06/2017 Visit Plan: [...] surrogate. 03/19/2017 Appointment: Kiersten Armando WPtel: [phone] [facility] [facility] - Annual Wellness Visit 03/19/2017 Patient Education: [...] levels of control. p hysical therapy at [facility] - water therapy for back eeg - needs ordered at hospital. 03/18/2017 App[facility]: [phone] (15 min) Moderate 03/18/2017 Patient Education: Patient [...] not improve. 01/27/2017 App[facility]ment: [phone] (15 min) Moderate 01/27/2017 Patient Education: Patient Medication Summary Completed 01/27/2017 Patient Education: Hypertension Completed 01/27/2017 Visit Plan: Sinusitis - Pt has acut e infection - pain in face, maxillary region, Pt informed to use decongestant, RX given to patient, sinus rinses also recommended. Call if symptoms do not show improvement. 12/29/2016 Appointment: Marixa Lakhani WPtel: [phone] [phone] [place] (30 min) Complex 12/29/2016 Patient [...] of control. 11/19/2016 Appointment: Kailee Moreira WPtel: [phone] [facility] (15 min) Moderate 11/19/2016 Patient Education: [...] have improved. 08/13/2016 App[facility]ment: [phone] [place] (15 min) Moderate 08/13/2016 Patient Education: Patient Medication Summary Completed 08/13/2016 Patient Education: Hypertension Completed 08/13/2016 Appointment: [phone] [facility] [place] (30 min) Complex 07/31/2016 Visit Plan: [...] of control. 07/03/2016 Appointment: Kailee Moreira WPtel: [facility] (15 min) Moderate 07/03/2016 Patient Education: Patient Medication Summary Completed 07/03/2016 Patient Education: Hypertension Completed 07/03/2016 Visit Plan: Cdiff colitis - pt to h ave repeat testing - if positive will have to repeat treatment. Continue with probiotic. Lymes disease - continue with treatment per Dr. Carrillo. alex sample x 18 days given to patient. 05/07/2016 Appointment: Kailee Moreira WPtel: [address] [place], [place] [phone] (15 min) Moderate 05/07/2016 Patient Education: Patient Medication Summary Completed 05/07/2016 Visit Plan: Diarrhea - suspect the diarrhea is Cdiff related - check stool and treat with flagyl, probiotic to increase to three times daily - continue to hold iv antibiotic. Lyme disease - treating with iv antibiotics - on hold while she has diarrhea. 04/08/2016 Appointment: Kailee Moreira WPtel: [facility] (15 min) Moderate 04/08/2016 Patient Education: Patient Medication Summary Completed 04/08/2016 Appointment: Kailee Moreira WPtel: [phone] [facility] (15 min) Moderate 04/03/2016 Visit Plan: [...] Completed 03/11/2016 App[facility]ment: [phone] (15 min) Moderate 01/24/2016 Visit Plan: Tachycardia [...] control. 12/27/2015 Appointment: [phone] [facility] (15 min) Moderate 12/27/2015 Patient Education: Patient [...] not improve. 06/26/2015 Appointment: Kailee Moreira WPtel[facility] (15 min) Moderate 06/26/2015 Patient Education: Patient [...] spine Lymes disease-sees Dr Carrillo-lymes specialist in [place], [place] CAD-HX [id number] by Dr Hyde 04/10/2015 Appointment: (S) New Patient 04/10/2015 Patient Education: Patient Medication Summary Completed 04/10/2015 Patient Education: Hypertension Completed 04/10/2015 Instructions Comment voltaren gel apply 2 grams to the [...] previous levels of control. physical therapy at [facility] - water therapy for back eeg - needs ordered at hospital. . Hypertension - wel l controlled - [...] spine Lymes disease-sees Dr Carrillo-ly[facility] specialist in [place], [place] CAD-HX [id number] by Dr Hyde . Contact dermatitis -discussed with Dr Moreira -rx for dexamethasone sent to patient's pharmacy and instructed on use-will also send rx for topical betamethsone -instructed patient to call if symptoms do not resolve or if any worse Vyadpczom-ODR-ogskkirm fluids-monitor blood pressure-call if dizziness does not [...] - pt to see the chiropractor. . Cdiff colitis - pt to have repeat testing - if positive will have to repeat treatment. Continue with probiotic. Lymes disease - continue with treatment per Dr. Carrillo. alex sample x 18 days given to patient. . Hypertension - wel l controlled - [...] if symptoms do not show improvement. . Hypothyroidism - p t with chronic [...] current regimen as symptoms have improved. . Hypothyroidism - p t with chronic hypothyroidism, continue with current medication, will monitor pt to signs or symptoms of lack of adequate supplementation. Pt is to continue with current dose of medication unless directed otherwise. Check labs at regular intervals wither q 3 months or q 6 months based on previous levels of control. Sleep apnea - order humidification for cpap - [facility]- find out if they need [...]
--- OUTSIDE RECORDS SUMMARY | 2020-05-05 12:09 | XMS REPORT | CCD ---
Author Author Emily Lakhani Organization [facility] Address [address] [place] [address] Phone Care Team Providers Care Sweatband Maker Name Role Phone PP Unavailable CCM Unavailable Summary Purpose Interface Exchange Insurance Providers Payer name Policy type / Coverage type Covered constitution party ID Effective Begin Date Effective End Date WPS Medicare Part B Medicare Part B [id number] Unknown [employer] Medicare Part B [id number] Unknown Family history Mother Diagnosis Age At [...] Retir ed 04/10/[address]: 529716481 Never smoker 04/10/[address]: 780840888 Never drinks alcohol 04/10/2015 Allergies, Adverse Reactions, [...] tions Start Date Stop Date Fill Instructions [place] Thyroid 90 mg tablet RxNorm: 626947 Tablet(s) 1/2 TABLET( S) PO DAILY 11/18/2018 02/10/2020 Ac tive [place] Thyroid 60 mg tablet RxNorm: 658423 1 Tablet(s) PO 3 x we ek Leonel Dominguez 11/17/2018 11/17/2018 In active hold until she is ready to refill [place] Thyroid 30 mg tablet RxNorm: 981943 1 Tablet(s) PO 4 time s a week Thu11/17/2018 11/16/2018 Inactive Please fill now- she will use her curren t supply of 60mg until she needs refill [place] Thyroid 30 mg tablet RxNorm: 429364 1 Tablet(s) PO 4 time s a week Thu SAT 11/17/2018 11/17/2018 Inactive Please fill now- she will use her curren t supply of 60mg until she needs refill Flagyl 500 mg tablet RxNorm: 571078 1 Tablet(s) PO TID 2018 10/17/2018 Inactive Flagyl 500 mg tablet RxNorm: 953184 1 Tablet(s) PO TID 10/06/2018 10/05/2018 Inactive Flagyl 500 mg tablet RxNorm: 403924 1 Tablet(s) PO TID 10/06/2018 10/10/2018 Inactive cefdinir 300 mg capsule RxNorm: 378805 1 Capsule(s) PO BID 09/29/2018 10/05/2018 Inactive cefdinir 300 mg capsule RxNorm: 351820 1 Capsule(s) PO BID 09/29/2018 09/28/2018 Inactive estradiol 0.01% (0.1 mg/gram) vaginal cream RxNorm: 711761 1 Gram(s) VAG BIW 09/15/2018 03/13/2019 Ac tive Imitrex 50 mg tablet RxNorm: 648328 TAKE WITH ONSET OF MIGRAINE- MAY TAKE AN ADDITIONAL DOSE IF NO RELIEF OF HEADACHE IN 1 HOUR- MAX OF 3 DOSES IN 24 HOURS Tablet(s) 06/14/2018 No Stop Date Active betamethasone gwendolyn te 0.1 % topical cream RxNorm: 841210 1 Application TOP TID 06/01/2018 06/10/2018 In active dexamethasone 4 mg t ablet RxNorm: 994675 1 Tablet(s) PO daily 06/01/2018 06/05/2018 Inactive Kenalog 40 mg/mL sadiq pension for injection RxNorm: 6894825 1.5 Milliliter(s) In j 05/24/2018 05/24/2018 In active amitriptyline 10 mg tablet RxNorm: 991292 1/2 TO 1 TABLET(S) PO QPM 01/21/2018 09/14/2018 Inactive [place] Thyroid 60 mg tablet RxNorm: 628818 1 Tablet(s) PO daily 01/12/2018 11/16/2018 Inactive carvedilol 3.125 mg tablet RxNorm: 323728 1 Tablet(s) PO BID 10/12/2017 No Stop Date Active Fiorinal-Codeine #3 30 mg-50 mg-325 mg-40 mg capsule RxNorm: 019229 1 Capsule(s) PO BID 10/12/2017 11/10/2017 Inactive progesterone microni zed 100 mg capsule RxNorm: 422199 1 Capsule(s) PO daily on days 1- 25 of each month 10/12/2017 01/11/2018 Inactive [place] Thyroid 90 mg tablet RxNorm: 424807 1/2 Tablet(s) PO melinda y 1/2 TABLET(S) PO DAILY 08/06/2017 01/11/2018 Inactive [place] Thyroid 90 mg tablet RxNorm: 829847 1/2 TABLET(S) PO DAILY 07/14/2017 08/05/2017 Inactive Keppra 500 mg tablet RxNorm: 839075 1 Tablet(s) PO BID 05/13/2017 08/05/2017 Inactive Deplin (algal oil) 1 5 mg-90.314 mg capsule RxNorm: TAKE ONE CAPSULE BY MOUTH O NE TIME DAILY 05/13/2017 01/11/2018 Inactive Keppra 250 mg tablet RxNorm: 487392 1 Tablet(s) PO daily 04/23/2017 04/22/2017 Inactive take 1 tab qd x 1 week then increase to BID Keppra 250 mg tablet RxNorm: 906560 1 Tablet(s) PO daily 04/23/2017 05/12/2017 Inactive take 1 tab qd x 1 week then increase to BID cyclobenzaprine 5 mg tablet RxNorm: 642997 1 Tablet(s) PO TID as needed 02/03/2017 02/22/2017 In active cyclobenzaprine 5 mg tablet RxNorm: 807399 1 Tablet(s) PO TID as needed 02/03/2017 02/02/2017 In active [place] Thyroid 90 mg tablet RxNorm: 375598 1/2 Tablet(s) PO daily 11/19/2016 03/18/2017 Inactive amitriptyline 10 mg tablet RxNorm: 208861 1/2 to 1 Tablet(s) PO QPM 11/19/2016 11/13/2017 Inactive fluconazole 50 mg ta blet RxNorm: 991958 1 Tablet(s) PO daily 08/20/2016 09/02/2016 Inactive [place] Thyroid 90 mg tablet RxNorm: 166040 1/2 Tablet(s) PO daily 08/11/2016 11/18/2016 Inactive Flagyl 500 mg tablet RxNorm: 363493 1 Tablet(s) PO TID 07/28/2016 01/11/2018 Inactive Flagyl 500 mg tablet RxNorm: 073707 1 Tablet(s) PO TID 07/17/2016 07/27/2016 Inactive amitriptyline 10 mg tablet RxNorm: 787861 1/2 to 1 Tablet(s) PO QPM 07/03/2016 10/30/2016 Inactive metronidazole 500 mg tablet RxNorm: 000082 1 Tablet(s) PO QID 07/03/2016 07/12/2016 Inactive amitriptyline 25 mg tablet RxNorm: 270995 1/2 -1 Tablet(s) PO Q HS as needed insomnia 06/26/2016 07/02/2016 Inactive vancomycin 125 mg ca psule RxNorm: 055122 1 Capsule(s) PO QID 06/20/2016 06/29/2016 Inactive [place] Thyroid 30 mg tablet RxNorm: 434280 1.5 Tablet(s) PO daily 06/20/2016 06/19/2016 Inactive [place] Thyroid 30 mg tablet RxNorm: 701275 1.5 Tablet(s) PO daily 06/20/2016 08/10/2016 Inactive fluconazole 50 mg ta blet RxNorm: 868267 1 Tablet(s) PO daily 06/16/2016 08/19/2016 Inactive amitriptyline 25 mg tablet RxNorm: 377140 1/2 -1 Tablet(s) PO Q HS as needed insomnia 06/12/2016 06/11/2016 Inactive amitriptyline 25 mg tablet RxNorm: 740473 1/2 -1 Tablet(s) PO Q HS as needed insomnia 06/12/2016 06/25/2016 Inactive vancomycin 125 mg ca psule RxNorm: 313680 1 Capsule(s) PO QID 06/12/2016 06/19/2016 Inactive fluconazole 50 mg ta blet RxNorm: 249931 1 Tablet(s) PO daily 06/12/2016 06/15/2016 Inactive Diflucan 150 mg tablet RxNorm: 251855 1 Tablet(s) PO daily 06/05/2016 06/09/2016 Inactive Deplin (algal oil) 1 5 mg-90.314 mg capsule RxNorm: 1 Capsule(s) PO daily 06/05/2016 06/04/2016 In active Diflucan 150 mg tablet RxNorm: 939124 1 Tablet(s) PO daily 06/05/2016 06/04/2016 Inactive Deplin (algal oil) 1 5 mg-90.314 mg capsule RxNorm: 1 Capsule(s) PO daily 06/05/2016 05/12/2017 In active nystatin 500,000 uni t tablet RxNorm: 985747 4 Tablet(s) PO daily 05/21/2016 09/17/2016 Inactive Vitamin D3 5,000 uni t tablet RxNorm: 030127 Tablet(s) PO daily 05/07/2016 No Stop Date Active nystatin 500,000 uni t tablet RxNorm: 689396 1 Tablet(s) PO Q4H 05/07/2016 05/20/2016 Inactive fluconazole 100 mg t ablet RxNorm: 133224 1 Tablet(s) PO daily 05/07/2016 06/11/2016 Inactive progesterone microni zed 100 mg capsule RxNorm: 120286 3 Capsule(s) PO daily on days 1- 25 of each month 05/07/2016 2017 Inactive metronidazole 500 mg tablet RxNorm: 268711 1 Tablet(s) PO TID 04/30/2016 05/09/2016 Inactive metronidazole 500 mg tablet RxNorm: 044009 1 Tablet(s) PO TID 04/30/2016 04/29/2016 Inactive vancomycin 125 mg ca psule RxNorm: 424652 1 Capsule(s) PO QID 04/29/2016 05/08/2016 Inactive vancomycin 125 mg ca psule RxNorm: 601414 1 Capsule(s) PO QID 04/29/2016 04/28/2016 Inactive Flagyl 500 mg tablet RxNorm: 960226 1 Tablet(s) PO TID 04/09/2016 04/08/2016 Inactive Flagyl 500 mg tablet RxNorm: 202176 1 Tablet(s) PO TID 04/09/2016 04/22/2016 Inactive carvedilol 3.125 mg tablet RxNorm: 119744 1 Tablet(s) PO BID 04/08/2016 2017 Inactive [place] Thyroid 60 mg tablet RxNorm: 291437 Tablet(s) PO 1 Tablet (s) daily 01/31/2016 06/19/2016 In active Pt request 90 day supply 11/23/2015 11:1 1:54 AM [place] Thyroid 30 mg tablet RxNorm: 737221 1 Tablet(s) daily 01/28/2016 01/30/2016 Inactive Pt request 90 day supply 11/23/2015 11:1 1:54 AM [place] Thyroid 30 mg tablet RxNorm: 380589 1 Tablet(s) daily 01/21/2016 01/27/2016 Inactive Pt request 90 day supply 11/23/2015 11:1 1:54 AM [place] Thyroid 30 mg tablet RxNorm: 365424 Tablet(s) TAKE ONE AN D ONE-HALF (45 MG) TABLET BY MOUTH EVERY DAY 01/02/2016 01/20/2016 Inactive Pt request 90 day supply 11/23/2015 11:11:54 AM Xylocaine 20 mg/mL ( 2 %) injection solution RxNorm: 7867642 2.5 Milliliter(s) In j BID with cefepime 12/27/2015 01/25/2016 Inactive cefepime 1 gram solu tion for injection RxNorm: 5463447 Inj 12/1012/27/2015 Inactive [place] Thyroid 30 mg tablet RxNorm: 929026 TAKE ONE TABLET BY [facility] EVERY DAY 11/23/2015 01/01/2016 In active Pt request 90 day supply 11/23/2015 11:1 1:54 AM Voltaren 1 % topical gel RxNorm: 213836 2 Gram(s) TOP QID 09/24/2015 12/26/2015 Inactive cyclobenzaprine 10 m g tablet RxNorm: 256248 1 Tablet(s) PO Q6 as needed 08/27/2015 05/06/2016 In active [place] Thyroid 30 mg tablet RxNorm: 157787 1 Tablet(s) PO daily 06/21/2015 06/20/2015 Inactive [place] Thyroid 30 mg tablet RxNorm: 495872 1 Tablet(s) PO daily 06/21/2015 11/22/2015 Inactive Synthroid 25 mcg tablet RxNorm: 556768 1 Tablet(s) PO daily 06/07/2015 06/06/2015 Inactive [facility]-1 Synthroid 25 mcg tablet RxNorm: 509022 1 Tablet(s) PO daily 06/07/2015 06/20/2015 Inactive [facility]-1 ofloxacin 0.3 % ear drops RxNorm: 060595 1-2 Drop(s) OTIC OU Q 4H as needed No Start Date Active Aspirin Low Dose 81 mg tablet,delayed release RxNorm: 904894 1 Tablet(s) PO daily No Start Date Active tyrosine (bulk) powder RxNorm: 1 Miscellaneous dash every am No Start Date Active arginine (L-arginine ) oral RxNorm: 1091 oral No Sta rt Date Active glutathione RxNorm: 4890 miscellaneous No Start Date Active Plaquenil 200 mg tablet RxNorm: 395142 1 Tablet(s) PO BID No Start Date 05/19/2016 Inactive fluconazole 100 mg t ablet RxNorm: 464019 1/2 Tablet(s) PO daily No Start Date 05/06/2016 Inactive fluconazole 150 mg t ablet RxNorm: 629424 1 Tablet(s) PO QW x4 No Start Date 12/26/2015 Inactive progesterone microni zed 100 mg capsule RxNorm: 157000 2 Capsule(s) PO daily No Start Date 05/06/2016 Inactive nystatin 500,000 uni t tablet RxNorm: 118277 1 Tablet(s) PO QID No Start Date 05/06/2016 Inactive cyclobenzaprine 10 m g tablet RxNorm: 776995 1 Tablet(s) PO Q6 as needed No Start Date 08/26/2015 Inactive vitamin K oral RxNorm: 8308 oral No Start Date 12/26/2015 Inactive carvedilol 3.125 mg tablet RxNorm: 677764 1 Tablet(s) PO daily No Start Date 04/07/2016 Inactive lisinopril 5 mg tablet RxNorm: 402062 1 Tablet(s) PO daily No Start Date 05/12/2017 Inactive azithromycin 250 mg tablet RxNorm: 815252 1 Tablet(s) PO daily will incrase to 2 per day No Start Date 12/26/2015 Inactive Probiotic 4X oral RxNorm: 6969726 oral No Start Date 01/07/2016 Inactive Imitrex 50 mg tablet RxNorm: 691099 TAKE WITH ONSET OF MIGRAINE- MAY TAKE AN ADDITIONAL DOSE IF NO RELIEF OF HEADACHE IN 1 HOUR- MAX OF 3 DOSES IN 24 HOURS No Start Date 06/13/2018 Inactive Vitamin D3 1,000 uni t tablet RxNorm: 425003 Tablet(s) PO daily No Start Date 05/06/2016 Inactive progesterone microni zed 100 mg capsule RxNorm: 478383 3 Capsule(s) PO daily rx from [facility] No Start Date 12/26/2015 Inactive lorazepam 0.5 mg tablet RxNorm: 586269 1/2-1 Tablet(s) PO daily as needed No Start Date 03/10/2016 Inactive Multiple Vitamin oral RxNorm: 32463 oral No Start Date 05/06/2016 Inactive Medication Administered Medication Codes Instruc tions Start Date Status Kenalog 40 mg/mL suspension for injection RxNorm: 3874158 1.5Milliliter 05/24/2018 No longer Active cefepime 1 gram solution for injection RxNorm: 1227015 12/27/2015 No longer A ctive Immunizations No [...] Item Item Code Result Date Comp Metabolic Nfz634 NA 145 mEq/L 06/14/2018 Comp Metabolic Snp900 K 4.0 mEq/L 06/14/2018 Comp Metabolic Ddl968 CL 106 mEq/L 06/14/2018 Comp Metabolic Koa400 CO2 31.0 mEq/L 06/14/2018 Comp Metabolic Wxf950 AN ION GAP 12 06/14/2018 Comp Metabolic Tnw044 GL UCOSE 88 mg/dL 06/14/2018 Comp Metabolic Pmb235 Cr eat 0.7 mg/dL 06/14/2018 Comp Metabolic Ocu504 eG FR 92 ml/min/1.73m2 06/14 Comp Metabolic Erv736 BUN 9 mg/dL 06/14/2018 Comp Metabolic Jzv306 B/ C Ratio 13.6 Ratio 06/14/2018 Comp Metabolic Rew964 CA LCIUM 9.0 mg/dL 06/14/2018 Comp Metabolic Xnw329 AL K PHOS 36 U/L 06/14/2018 Comp Metabolic Ljh884 T(SGOT) 21 U/L 06/14/2018 Comp Metabolic Mfc589 AL T(SGPT) 22 U/L 06/14/2018 Comp Metabolic Dgm586 BI LI T 0.3 mg/dL 06/14/2018 Comp Metabolic Yon764 AL BUMIN 3.8 g/dL 06/14/2018 Comp Metabolic Onj258 TP RO 5.8 g/dL 06/14/2018 Comp Metabolic Lep323 GL OB 2.0 g/dL 06/14/2018 Comp Metabolic Drb779 A/ G Ratio 2.0 Ratio 06/14/2018 Comp Metabolic Ihr895 Os mo 287 mOsmo 06/14/2018 Free T4 Ybi992 FREE T4 0.66 ng/dL 06/14/2018 Tsh Ord6 [...] 32.9 % 06/14/2018 Cbc With Differential Ord2 [place]% 13.9 % 06/14/2018 Cbc With Differential Ord2 [...] 1.40 K/ul 06/14/2018 Cbc With Differential Ord2 [place] ABS# 0.6 K/ul 06/14/2018 Cbc With Differential Ord2 Eos ABS# 0.2 K/ul 06/14/2018 Cbc With Differential Ord2 Baso ABS# 0.0 K/ul 06/14/2018 Free T4 Gki303 FREE T4 0.63 ng/dL 01/05/2018 Lipid Ord30 CHOL 246 mg/dL 01/05/2018 Lipid Ord30 HDL 79.0 mg/dl 01/05/2018 Lipid Ord30 TRIG 124 mg/dL 01/05/2018 Lipid Ord30 LDL 142 mg/dL 01/05/2018 Lipid Ord30 C/HDL 3.1 Ratio 01/05/2018 Tsh Ord6 TSH (3rd IS) 1.48 uIU/mL 01/05/2018 Tsh Ord6 hTSH II 2.03 uIU/mL 08/07/2017 Comp Metabolic Zff320 NA 142 mEq/L 08/07/2017 Comp Metabolic Xge307 K 4.1 mEq/L 08/07/2017 Comp Metabolic Wlb636 CL 105 mEq/L 08/07/2017 Comp Metabolic Whc728 CO2 27.0 mEq/L 08/07/2017 Comp Metabolic Fax574 AN ION GAP 14 08/07/2017 Comp Metabolic Snv454 GL UCOSE 89 mg/dL 08/07/2017 Comp Metabolic Ksb858 Cr eat 0.7 mg/dL 08/07/2017 Comp Metabolic Bys689 eG FR 86 ml/min/1.73m2 08/07 Comp Metabolic Vrf526 BUN 16 mg/dL 08/07/2017 Comp Metabolic Vnj343 B/ C Ratio 22.9 Ratio 08/07/2017 Comp Metabolic Jlv214 CA LCIUM 9.8 mg/dL 08/07/2017 Comp Metabolic Qhj430 AL K PHOS 41 U/L 08/07/2017 Comp Metabolic Psq438 T(SGOT) 26 U/L 08/07/2017 Comp Metabolic Dky961 AL T(SGPT) 21 U/L 08/07/2017 Comp Metabolic Hrj250 BI LI T 0.5 mg/dL 08/07/2017 Comp Metabolic Gbs816 AL BUMIN 4.3 g/dL 08/07/2017 Comp Metabolic Pww551 TP RO 6.6 g/dL 08/07/2017 Comp Metabolic Ese696 GL OB 2.3 g/dL 08/07/2017 Comp Metabolic Nkf651 A/ G Ratio 1.9 Ratio 08/07/2017 Comp Metabolic Jlz560 Os mo 284 mOsmo 08/07/2017 Free T4 Fqn941 FREE T4 0.64 ng/dL 08/07/2017 Lipid Ord30 [...] 30.3 pg 08/07/2017 Cbc With Differential Ord2 [place]% 13.9 % 08/07/2017 Cbc With Differential Ord2 MCHC 33.5 pg 08/07/2017 Cbc With Differential Ord2 Eos% 5.4 % 08/07/2017 Cbc With Differential Ord2 PLT 271 K/ul 08/07/2017 Cbc With Differential Ord2 Baso% 0.5 % 08/07/2017 Cbc With Differential Ord2 Neut ABS# 1.92 K/ul 08/07/2017 Cbc With Differential Ord2 RDW 14.5 % 08/07/2017 Cbc With Differential Ord2 Lymph ABS# 1.49 K/ul 08/07/2017 Cbc With Differential Ord2 [place] ABS# 0.6 K/ul 08/07/2017 Cbc With Differential [...] 92.3 fl 11/20/2016 Cbc With Differential Ord2 [place]% 10.8 % 11/20/2016 Cbc With Differential Ord2 [...] 1.62 K/ul 11/20/2016 Cbc With Differential Ord2 [place] ABS# 0.5 K/ul 11/20/2016 Cbc With Differential Ord2 Eos ABS# 0.2 K/ul 11/20/2016 Cbc With Differential Ord2 Baso ABS# 0.0 K/ul 11/20/2016 Free T4 Buq976 FREE T4 0.80 ng/dL 11/20/2016 Tsh Ord6 hTSH II 1.35 uIU/mL 11/20/2016 Comp Metabolic Nux592 NA 139 mEq/L 11/20/2016 Comp Metabolic Hql995 K 3.9 mEq/L 11/20/2016 Comp Metabolic Mty137 CL 103 mEq/L 11/20/2016 Comp Metabolic Lcp303 CO2 30.0 mEq/L 11/20/2016 Comp Metabolic Lkl171 AN ION GAP 10 11/20/2016 Comp Metabolic Wmk165 GL UCOSE 85 mg/dL 11/20/2016 Comp Metabolic Ive038 Cr eat 0.7 mg/dL 11/20/2016 Comp Metabolic Fqn956 eG FR 93 ml/min/1.73m2 11/20 Comp Metabolic Evy552 BUN 12 mg/dL 11/20/2016 Comp Metabolic Xgi923 B/ C Ratio 18.2 Ratio 11/20/2016 Comp Metabolic Baf925 CA LCIUM 9.1 mg/dL 11/20/2016 Comp Metabolic Kob084 AL K PHOS 34 U/L 11/20/2016 Comp Metabolic Dmm264 T(SGOT) 18 U/L 11/20/2016 Comp Metabolic Qzg322 AL T(SGPT) 14 U/L 11/20/2016 Comp Metabolic Lur852 BI LI T 0.5 mg/dL 11/20/2016 Comp Metabolic Wcg040 AL BUMIN 4.2 g/dL 11/20/2016 Comp Metabolic Kkh497 TP RO 6.3 g/dL 11/20/2016 Comp Metabolic Luh173 GL OB 2.1 g/dL 11/20/2016 Comp Metabolic Flw742 A/ G Ratio 2.0 Ratio 11/20/2016 Comp Metabolic Xqi009 Os mo 277 mOsmo 11/20/2016 Lipid Ord30 CHOL 189 mg/dL 11/20/2016 Lipid Ord30 HDL 81.0 mg/dl 11/20/2016 Lipid Ord30 TRIG 77 mg/dL 11/20/2016 Lipid Ord30 LDL 93 mg/dL 11/20/2016 Lipid Ord30 C/HDL 2.3 Ratio 11/20/2016 Testosterone Free Direct 455930 FREE TESTOSTERONE 0.7 pg/mL 10/06/2016 Estradiol 147483 ESTRADI OL 5.9 pg/mL 10/03/2016 Cortisol 642401 CORTISOL 23 ug/dL 10/03/2016 Progesterone Ixw307 Prog 17.38 ng/mL 10/01/2016 Free T4 Hjl032 FREE T4 0.66 ng/dL 08/13/2016 Tsh Ord6 hTSH II 0.99 uIU/mL 08/13/2016 Testosterone Free Direct 308515 FREE TESTOSTERONE <0.2 pg/mL 07/05/2016 Estradiol 108606 ESTRADI OL <5.0 pg/mL 07/03/2016 Progesterone Lbr068 Prog 23.37 ng/mL 07/02/2016 Tsh Ord6 hTSH II 0.24 uIU/mL 06/17/2016 Free T4 Kmb533 FREE T4 0.86 ng/dL 06/17/2016 Estradiol 774551 ESTRADI OL <5.0 pg/mL 05/21/2016 Comp Metabolic Xem215 NA 140 mEq/L 05/20/2016 Comp Metabolic Lkb865 K 4.1 mEq/L 05/20/2016 Comp Metabolic Jxp926 CL 106 mEq/L 05/20/2016 Comp Metabolic Syj457 CO2 26.0 mEq/L 05/20/2016 Comp Metabolic Ssd169 AN ION GAP 12 05/20/2016 Comp Metabolic Sto278 GL UCOSE 81 mg/dL 05/20/2016 Comp Metabolic Mye006 Cr eat 0.5 mg/dL 05/20/2016 Comp Metabolic Zgw615 eG FR 119 ml/min/1.73m2 05/09 Comp Metabolic Jfv625 BUN 15 mg/dL 05/20/2016 Comp Metabolic Way017 B/ C Ratio 28.3 Ratio 05/20/2016 Comp Metabolic Jeg654 CA LCIUM 8.9 mg/dL 05/20/2016 Comp Metabolic Gaq662 AL K PHOS 36 U/L 05/20/2016 Comp Metabolic Mfp678 T(SGOT) 25 U/L 05/20/2016 Comp Metabolic Ulc223 AL T(SGPT) 23 U/L 05/20/2016 Comp Metabolic Zla008 BI LI T 0.4 mg/dL 05/20/2016 Comp Metabolic Qcp840 AL BUMIN 3.7 g/dL 05/20/2016 Comp Metabolic Gxg695 TP RO 5.9 g/dL 05/20/2016 Comp Metabolic Qae851 GL OB 2.2 g/dL 05/20/2016 Comp Metabolic Wmr724 A/ G Ratio 1.7 Ratio 05/20/2016 Comp Metabolic Kgs760 Os mo 279 mOsmo 05/20/2016 Progesterone Frj178 Prog 8.44 ng/mL 05/20/2016 Cbc With Differential [...] 18.4 % 05/20/2016 Cbc With Differential Ord2 [place]% 13.0 % 05/20/2016 Cbc With Differential Ord2 [...] 0.85 K/ul 05/20/2016 Cbc With Differential Ord2 [place] ABS# 0.6 K/ul 05/20/2016 Cbc With Differential [...] collection if refrigerated) 05/20/2016 Testosterone Free Direct 505720 FREE TESTOSTERONE 0.6 pg/mL 05/19/2016 Estradiol 908640 ESTRADI OL <5.0 pg/mL 05/16/2016 Comp Metabolic Mck654 NA 140 mEq/L 05/15/2016 Comp Metabolic Wqh605 K 3.8 mEq/L 05/15/2016 Comp Metabolic Kps151 CL 106 mEq/L 05/15/2016 Comp Metabolic Agn504 CO2 26.0 mEq/L 05/15/2016 Comp Metabolic Del118 AN ION GAP 12 05/15/2016 Comp Metabolic Xoj966 GL UCOSE 77 mg/dL 05/15/2016 Comp Metabolic Qty162 Cr eat 0.5 mg/dL 05/15/2016 Comp Metabolic Ekx564 eG FR 144 ml/min/1.73m2 05/2016 Comp Metabolic Whs026 BUN 18 mg/dL 05/15/2016 Comp Metabolic Zai282 B/ C Ratio 40.0 Ratio 05/15/2016 Comp Metabolic Hna569 CA LCIUM 8.8 mg/dL 05/15/2016 Comp Metabolic Oax955 AL K PHOS 28 U/L 05/15/2016 Comp Metabolic Shy131 T(SGOT) 19 U/L 05/15/2016 Comp Metabolic Tha354 AL T(SGPT) 19 U/L 05/15/2016 Comp Metabolic Xrg347 BI LI T 0.5 mg/dL 05/15/2016 Comp Metabolic Khd994 AL BUMIN 3.6 g/dL 05/15/2016 Comp Metabolic Tdc191 TP RO 5.6 g/dL 05/15/2016 Comp Metabolic Tez868 GL OB 2.0 g/dL 05/15/2016 Comp Metabolic Vwu421 A/ G Ratio 1.8 Ratio 05/15/2016 Comp Metabolic Eom563 Os mo 280 mOsmo 05/15/2016 Progesterone Qsf743 Prog 9.08 ng/mL 05/15/2016 Cbc With Differential [...] 29.9 pg 05/15/2016 Cbc With Differential Ord2 [place]% 14.1 % 05/15/2016 Cbc With Differential Ord2 [...] 1.42 K/ul 05/15/2016 Cbc With Differential Ord2 [place] ABS# 0.6 K/ul 05/15/2016 Cbc With Differential [...] Ord28 U-Com None 05/15/2016 Testosterone Free Direct 429387 FREE TESTOSTERONE 0.2 pg/mL 05/09/2016 Estradiol 484174 ESTRADI OL <5.0 pg/mL 05/07/2016 Comp Metabolic Btk697 NA 141 mEq/L 05/06/2016 Comp Metabolic Umy205 K 3.6 mEq/L 05/06/2016 Comp Metabolic Xyd916 CL 107 mEq/L 05/06/2016 Comp Metabolic Xqs893 CO2 28.0 mEq/L 05/06/2016 Comp Metabolic Awo620 AN ION GAP 10 05/06/2016 Comp Metabolic Baj444 GL UCOSE 138 mg/dL 05/06/2016 Comp Metabolic Bpp576 Cr eat 0.5 mg/dL 05/06/2016 Comp Metabolic Nnb871 eG FR 119 ml/min/1.73m2 04/10 Comp Metabolic Reg482 BUN 16 mg/dL 05/06/2016 Comp Metabolic Ado745 B/ C Ratio 30.2 Ratio 05/06/2016 Comp Metabolic Qxc961 CA LCIUM 8.9 mg/dL 05/06/2016 Comp Metabolic Mgu229 AL K PHOS 29 U/L 05/06/2016 Comp Metabolic Djz482 T(SGOT) 20 U/L 05/06/2016 Comp Metabolic Zxb135 AL T(SGPT) 21 U/L 05/06/2016 Comp Metabolic Gcd822 BI LI T 0.4 mg/dL 05/06/2016 Comp Metabolic Zha247 AL BUMIN 3.6 g/dL 05/06/2016 Comp Metabolic Vld576 TP RO 5.5 g/dL 05/06/2016 Comp Metabolic Bnn202 GL OB 1.9 g/dL 05/06/2016 Comp Metabolic Mew800 A/ G Ratio 1.9 Ratio 05/06/2016 Comp Metabolic Wio097 Os mo 285 mOsmo 05/06/2016 Urinalysis Ord28 [...] hours from collection if refrigerated) 05/06/2016 Progesterone Qrl098 Prog 0.98 ng/mL 05/06/2016 Cbc With Differential [...] 29.9 % 05/06/2016 Cbc With Differential Ord2 [place]% 10.1 % 05/06/2016 Cbc With Differential Ord2 [...] 1.16 K/ul 05/06/2016 Cbc With Differential Ord2 [place] ABS# 0.4 K/ul 05/06/2016 Cbc With Differential [...] 88.9 fl 04/29/2016 Cbc With Differential Ord2 [place]% 13.1 % 04/29/2016 Cbc With Differential Ord2 MCH 29.6 pg 04/29/2016 Cbc With Differential Ord2 Eos% 4.0 % 04/29/2016 Cbc With Differential Ord2 MCHC 33.2 pg 04/29/2016 Cbc With Differential Ord2 Baso% 0.8 % 04/29/2016 Cbc With Differential Ord2 PLT 253 K/ul 04/29/2016 Cbc With Differential Ord2 RDW 15.5 % 04/29/2016 Cbc With Differential Ord2 Neut ABS# 1.84 K/ul 04/29/2016 Cbc With Differential Ord2 Lymph ABS# 1.42 K/ul 04/29/2016 Cbc With Differential Ord2 [place] ABS# 0.5 K/ul 04/29/2016 Cbc With Differential Ord2 Eos ABS# 0.2 K/ul 04/29/2016 Cbc With Differential Ord2 Baso ABS# 0.0 K/ul 04/29/2016 Comp Metabolic Xbb334 NA 141 mEq/L 04/29/2016 Comp Metabolic Xsc506 K 4.0 mEq/L 04/29/2016 Comp Metabolic Ehi199 CL 108 mEq/L 04/29/2016 Comp Metabolic Yki773 CO2 27.0 mEq/L 04/29/2016 Comp Metabolic Hrk412 AN ION GAP 10 04/29/2016 Comp Metabolic Xlc446 GL UCOSE 69 mg/dL 04/29/2016 Comp Metabolic Zag572 Cr eat 0.5 mg/dL 04/29/2016 Comp Metabolic Xhx130 eG FR 122 ml/min/1.73m2 04/10 Comp Metabolic Ser877 BUN 19 mg/dL 04/29/2016 Comp Metabolic Ovq553 B/ C Ratio 36.5 Ratio 04/29/2016 Comp Metabolic Utd683 CA LCIUM 9.1 mg/dL 04/29/2016 Comp Metabolic Kfi871 AL K PHOS 31 U/L 04/29/2016 Comp Metabolic Ukk712 T(SGOT) 20 U/L 04/29/2016 Comp Metabolic Dwd255 AL T(SGPT) 22 U/L 04/29/2016 Comp Metabolic Kxa200 BI LI T 0.6 mg/dL 04/29/2016 Comp Metabolic Lha997 AL BUMIN 3.8 g/dL 04/29/2016 Comp Metabolic Nix204 TP RO 5.9 g/dL 04/29/2016 Comp Metabolic Vhw118 GL OB 2.1 g/dL 04/29/2016 Comp Metabolic Rkj043 A/ G Ratio 1.8 Ratio 04/29/2016 Comp Metabolic Wxf123 Os mo 282 mOsmo 04/29/2016 Progesterone Feg153 Prog 5.99 ng/mL 04/29/2016 Urinalysis Ord28 U-Color [...] Urinalysis Ord28 U-Yeast NEGATIVE 04/25/2016 Comp Metabolic Lmz260 NA 138 mEq/L 04/25/2016 Comp Metabolic Wod880 K 3.6 mEq/L 04/25/2016 Comp Metabolic Lsh680 CL 105 mEq/L 04/25/2016 Comp Metabolic Ydh360 CO2 27.0 mEq/L 04/25/2016 Comp Metabolic Fqq363 AN ION GAP 10 04/25/2016 Comp Metabolic Ovn133 GL UCOSE 190 mg/dL 04/25/2016 Comp Metabolic Ngw179 Cr eat 0.5 mg/dL 04/25/2016 Comp Metabolic Jab961 eG FR 128 ml/min/1.73m2 04/09 Comp Metabolic Xsx551 BUN 17 mg/dL 04/25/2016 Comp Metabolic Jid982 B/ C Ratio 34.0 Ratio 04/25/2016 Comp Metabolic Ajh814 CA LCIUM 8.7 mg/dL 04/25/2016 Comp Metabolic Ney996 AL K PHOS 32 U/L 04/25/2016 Comp Metabolic Icz159 T(SGOT) 23 U/L 04/25/2016 Comp Metabolic Dps672 AL T(SGPT) 22 U/L 04/25/2016 Comp Metabolic Axf898 BI LI T 0.5 mg/dL 04/25/2016 Comp Metabolic Vjt558 AL BUMIN 3.6 g/dL 04/25/2016 Comp Metabolic Ona719 TP RO 5.5 g/dL 04/25/2016 Comp Metabolic Etj559 GL OB 1.9 g/dL 04/25/2016 Comp Metabolic Aba761 A/ G Ratio 1.9 Ratio 04/25/2016 Comp Metabolic Kfm121 Os mo 282 mOsmo 04/25/2016 Cbc With Differential Ord2 WBC 3.24 K/ul 04/25/2016 Cbc With Differential Ord2 RBC 4.06 M/ul 04/25/2016 Cbc With Differential Ord2 HGB 12.0 g/dl 04/25/2016 Cbc With Differential Ord2 HCT 36.0 % 04/25/2016 Cbc With Differential Ord2 Neut% 52.4 % 04/25/2016 Cbc With Differential Ord2 Lymph% 31.2 % 04/25/2016 Cbc With Differential Ord2 MCV 88.7 fl 04/25/2016 Cbc With Differential Ord2 MCH 29.6 pg 04/25/2016 Cbc With Differential Ord2 [place]% 13.0 % 04/25/2016 Cbc With Differential Ord2 [...] 1.01 K/ul 04/25/2016 Cbc With Differential Ord2 [place] ABS# 0.4 K/ul 04/25/2016 Cbc With Differential [...] 88.8 fl 04/04/2016 Cbc With Differential Ord2 [place]% 16.1 % 04/04/2016 Cbc With Differential Ord2 [...] 1.32 K/ul 04/04/2016 Cbc With Differential Ord2 [place] ABS# 0.8 K/ul 04/04/2016 Cbc With Differential Ord2 Eos ABS# 0.2 K/ul 04/04/2016 Cbc With Differential Ord2 Baso ABS# 0.0 K/ul 04/04/2016 Comp Metabolic Rvm825 NA 140 mEq/L 04/04/2016 Comp Metabolic Neh364 K 4.1 mEq/L 04/04/2016 Comp Metabolic Ncl560 CL 106 mEq/L 04/04/2016 Comp Metabolic Rfs984 CO2 27.0 mEq/L 04/04/2016 Comp Metabolic Dwv839 AN ION GAP 11 04/04/2016 Comp Metabolic Irx457 GL UCOSE 71 mg/dL 04/04/2016 Comp Metabolic Kol231 Cr eat 0.5 mg/dL 04/04/2016 Comp Metabolic Saw619 eG FR 131 ml/min/1.73m2 03/10 Comp Metabolic Mtg547 BUN 14 mg/dL 04/04/2016 Comp Metabolic Hax895 B/ C Ratio 28.6 Ratio 04/04/2016 Comp Metabolic Nyh981 CA LCIUM 9.1 mg/dL 04/04/2016 Comp Metabolic Xmt130 AL K PHOS 42 U/L 04/04/2016 Comp Metabolic Dlh032 T(SGOT) 18 U/L 04/04/2016 Comp Metabolic Fpf338 AL T(SGPT) 17 U/L 04/04/2016 Comp Metabolic Zsa880 BI LI T 0.4 mg/dL 04/04/2016 Comp Metabolic Evr091 AL BUMIN 3.8 g/dL 04/04/2016 Comp Metabolic Ukg838 TP RO 6.0 g/dL 04/04/2016 Comp Metabolic Yxe879 GL OB 2.2 g/dL 04/04/2016 Comp Metabolic Wyu785 A/ G Ratio 1.7 Ratio 04/04/2016 Comp Metabolic Oev366 Os mo 278 mOsmo 04/04/2016 Urinalysis Ord28 [...] 33.2 % 03/28/2016 Cbc With Differential Ord2 [place]% 11.7 % 03/28/2016 Cbc With Differential Ord2 [...] 1.14 K/ul 03/28/2016 Cbc With Differential Ord2 [place] ABS# 0.4 K/ul 03/28/2016 Cbc With Differential Ord2 Eos ABS# 0.1 K/ul 03/28/2016 Cbc With Differential Ord2 Baso ABS# 0.0 K/ul 03/28/2016 Cbc With Differential Ord2 New Analyzer Notice Please note new ref ranges s tarting 11-21-2015 due to implemntation of new five part differential hematolgy analyzer. 03/28/2016 Comp Metabolic Hot071 NA 137 mEq/L 03/28/2016 Comp Metabolic Wtz077 K 3.5 mEq/L 03/28/2016 Comp Metabolic Rco187 CL 105 mEq/L 03/28/2016 Comp Metabolic Foh778 CO2 27.0 mEq/L 03/28/2016 Comp Metabolic Cwh536 AN ION GAP 9 03/28/2016 Comp Metabolic Usg439 GL UCOSE 174 mg/dL 03/28/2016 Comp Metabolic Jtk531 Cr eat 0.5 mg/dL 03/28/2016 Comp Metabolic Bvy157 eG FR 131 ml/min/1.73m2 03/10 Comp Metabolic Civ595 BUN 13 mg/dL 03/28/2016 Comp Metabolic Cjc757 B/ C Ratio 26.5 Ratio 03/28/2016 Comp Metabolic Uyt260 CA LCIUM 8.7 mg/dL 03/28/2016 Comp Metabolic Jsa225 AL K PHOS 31 U/L 03/28/2016 Comp Metabolic Kfv957 T(SGOT) 20 U/L 03/28/2016 Comp Metabolic Jov871 AL T(SGPT) 19 U/L 03/28/2016 Comp Metabolic Wmg285 BI LI T 0.4 mg/dL 03/28/2016 Comp Metabolic Lme642 AL BUMIN 3.5 g/dL 03/28/2016 Comp Metabolic Hvd873 TP RO 5.3 g/dL 03/28/2016 Comp Metabolic Dsg949 GL OB 1.8 g/dL 03/28/2016 Comp Metabolic Ftw874 A/ G Ratio 2.0 Ratio 03/28/2016 Comp Metabolic Wyz626 Os mo 278 mOsmo 03/28/2016 Urinalysis Ord28 [...] Ord28 U-Yeast NEGATIVE 03/28/2016 Testosterone Free Direct 170453 FREE TESTOSTERONE <0.2 pg/mL 03/13/2016 Estradiol 019337 ESTRADI OL <5.0 pg/mL 03/12/2016 Progesterone Hyc109 Prog 0.56 ng/mL 03/10/2016 Homocyst(E)Ine Plasma 258405 HOMOCYSTEINE, TOTAL 10.9 umol/L 01/18/2016 Mthfr 707371 MTHFR C677T: HETEROZYGOUS MUTATION DETECTED 02/2016 Mthfr 444611 MTHFR A1298 C: HETEROZYGOUS MUTATION DETECTED 01/11/2016 Mthfr 378795 INTERPRETAT ION: 01/11/2016 Iodine Serum 568523 IOD INE, SERUM 131.0 ug/L 01/10/2016 Tsh Ord6 hTSH II 2.11 uIU/mL 01/07/2016 Comp Metabolic Xmo433 NA 139 mEq/L 01/07/2016 Comp Metabolic Meb423 K 4.0 mEq/L 01/07/2016 Comp Metabolic Bst728 CL 104 mEq/L 01/07/2016 Comp Metabolic Xqk579 CO2 26.0 mEq/L 01/07/2016 Comp Metabolic Vas725 AN ION GAP 13 01/07/2016 Comp Metabolic Kfe076 GL UCOSE 86 mg/dL 01/07/2016 Comp Metabolic Mod825 Cr eat 0.6 mg/dL 01/07/2016 Comp Metabolic Aet542 eG FR 100 ml/min/1.73m2 12/11 Comp Metabolic Thm623 BUN 18 mg/dL 01/07/2016 Comp Metabolic Szi903 B/ C Ratio 29.0 Ratio 01/07/2016 Comp Metabolic Koi026 CA LCIUM 9.4 mg/dL 01/07/2016 Comp Metabolic Eds305 AL K PHOS 40 U/L 01/07/2016 Comp Metabolic Qim705 T(SGOT) 20 U/L 01/07/2016 Comp Metabolic Vsj740 AL T(SGPT) 24 U/L 01/07/2016 Comp Metabolic Bcw017 BI LI T 0.6 mg/dL 01/07/2016 Comp Metabolic Fxl176 AL BUMIN 4.1 g/dL 01/07/2016 Comp Metabolic Dpo376 TP RO 6.4 g/dL 01/07/2016 Comp Metabolic Fig124 GL OB 2.3 g/dL 01/07/2016 Comp Metabolic Tgr239 A/ G Ratio 1.8 Ratio 01/07/2016 Comp Metabolic Pbv047 Os mo 279 mOsmo 01/07/2016 Lipid Ord30 [...] 11/26/2015 Urinalysis Ord28 U-Yeast NEGATIVE 11/26/2015 Progesterone Qaz381 Prog >40.00 ng/mL 11/26/2015 Testosterone Free Direct 952773 FREE TESTOSTERONE 0.6 pg/mL 10/01/2015 Estradiol 432052 ESTRADI OL <5.0 pg/mL 09/26/2015 Urinalysis Ord28 [...] Urinalysis Ord28 U-Yeast NEGATIVE 09/25/2015 Comp Metabolic Ooe555 NA 142 mEq/L 09/25/2015 Comp Metabolic Lac405 K 4.3 mEq/L 09/25/2015 Comp Metabolic Lgu108 CL 110 mEq/L 09/25/2015 Comp Metabolic Bgg705 CO2 23.0 mEq/L 09/25/2015 Comp Metabolic Xrr881 AN ION GAP 13 09/25/2015 Comp Metabolic Ulv275 GL UCOSE 76 mg/dL 09/25/2015 Comp Metabolic Xwb489 Cr eat 0.8 mg/dL 09/25/2015 Comp Metabolic Nyx366 eG FR 79 ml/min/1.73m2 09/25 Comp Metabolic Fis658 BUN 17 mg/dL 09/25/2015 Comp Metabolic Ego955 B/ C Ratio 22.4 Ratio 09/25/2015 Comp Metabolic Fnz078 CA LCIUM 9.4 mg/dL 09/25/2015 Comp Metabolic Ngu275 AL K PHOS 45 U/L 09/25/2015 Comp Metabolic Doy220 T(SGOT) 20 U/L 09/25/2015 Comp Metabolic Lwt684 AL T(SGPT) 18 U/L 09/25/2015 Comp Metabolic Qhe447 BI LI T 0.5 mg/dL 09/25/2015 Comp Metabolic Ivd225 AL BUMIN 4.0 g/dL 09/25/2015 Comp Metabolic Bhk283 TP RO 6.2 g/dL 09/25/2015 Comp Metabolic Tvy067 GL OB 2.2 g/dL 09/25/2015 Comp Metabolic Ljk422 A/ G Ratio 1.8 Ratio 09/25/2015 Comp Metabolic Muc132 Os mo 283 mOsmo 09/25/2015 Tsh Ord6 hTSH II 4.05 uIU/mL 09/25/2015 Progesterone Pxa744 Prog 21.38 ng/mL 09/25/2015 Free T4 Qnk980 FREE T4 0.78 ng/dL 09/25/2015 Cbc With [...] RDW 14.3 % 09/25/2015 Testosterone Free Direct 219266 FREE TESTOSTERONE 1.2 pg/mL 08/31/2015 Estradiol 858224 ESTRADI OL <5.0 pg/mL 08/29/2015 Progesterone Rjy775 Prog 4.37 ng/mL 08/28/2015 Fungal Screen I 986033 * *ASPERGILLUS AB BY ID . 07/23/2015 Fungal Screen I 207446 A SPERGILLUS AB BY ID None Detected Fungal Screen I 599527 * *BLASTOMYCES ANTIBODY BY CF & ID . 07/23/2015 Fungal Screen I 740075 B LASTOMYCES AB,CF <1:8 07/23/2015 Fungal Screen I 442883 B LASTOMYCES AB,ID None Detected 015 Fungal Screen I 114276 * *MAXINE ANTIBODY BY ID . 07/23/2015 Fungal Screen I 865756 C ANDIDA AB BY ID Detected 07/23/2015 Fungal Screen I 667972 * *COCCIDIOIDES ANTIBODIES, IGG & IGM . 07/23/2015 Fungal Screen I 011474 C OCCIDIOIDES AB IGM 0.3 IV 07/23/2015 Fungal Screen I 510366 C OCCIDIOIDES AB IGG 0.4 IV 07/23/2015 Fungal Screen I 622714 * *HISTOPLASMA ANTIBODY BY ID . 07/23/2015 Fungal Screen I 494062 H ISTOPLASMA ABS (ID) None Detected 015 Francisella Tularensis Abs 767729 F. TULARENSIS, IGG 0 U/mL 07/17/2015 Francisella Tularensis Abs 989772 F. TULARENSIS, IGM 0 U/mL 07/17/2015 Vitamin D 25 Oh Ddc3076 VITAMIN D, 25 HYDROXY 142.21 ng/mL 07/13/2015 Antistrptolysin-O Qualitative Abw647 ASO Negative 07/12/2015 B12 Rak201 B12 956.00 pg/ml 07/12/2015 Cbc With Differential [...] Ord2 RDW 15.1 % 07/10/2015 Free T4 Xyy574 FREE T4 0.79 ng/dL 06/12/2015 Urinalysis Ord28 [...] Ord2 RDW 16.0 % 06/04/2015 Comp Metabolic Ksn731 NA 139 mEq/L 06/04/2015 Comp Metabolic Uwl773 K 3.9 mEq/L 06/04/2015 Comp Metabolic Kev331 CL 108 mEq/L 06/04/2015 Comp Metabolic Jza080 CO2 26.0 mEq/L 06/04/2015 Comp Metabolic Vsq339 AN ION GAP 9 06/04/2015 Comp Metabolic Bpx336 GL UCOSE 74 mg/dL 06/04/2015 Comp Metabolic Zna435 Cr eat 0.6 mg/dL 06/04/2015 Comp Metabolic Vij272 eG FR 102 ml/min/1.73m2 05/10 Comp Metabolic Hfh796 BUN 18 mg/dL 06/04/2015 Comp Metabolic Lfk351 B/ C Ratio 29.5 Ratio 06/04/2015 Comp Metabolic Eqi327 CA LCIUM 9.0 mg/dL 06/04/2015 Comp Metabolic Oxk273 AL K PHOS 44 U/L 06/04/2015 Comp Metabolic Rny604 T(SGOT) 22 U/L 06/04/2015 Comp Metabolic Oyz923 AL T(SGPT) 23 U/L 06/04/2015 Comp Metabolic Pbs941 BI LI T 0.4 mg/dL 06/04/2015 Comp Metabolic Qbg522 AL BUMIN 4.0 g/dL 06/04/2015 Comp Metabolic Caa429 TP RO 5.8 g/dL 06/04/2015 Comp Metabolic Zjg790 GL OB 1.8 g/dL 06/04/2015 Comp Metabolic Vys955 A/ G Ratio 2.2 Ratio 06/04/2015 Comp Metabolic Cna316 Os mo 278 mOsmo 06/04/2015 Tsh Ord6 [...] 4: G0439 03/11/2016 THER/PROPH/DIAG INJ SC/IM CPT-4: 09828 12/27/2015 Vital Signs Date Vital 11/25/2018 Blood Pressure 1: 128/74 Code: 8480-6 BMI: 19.7 Code: 51394-7 Heart Rate 1: 86 bpm Height: 5' SpO2: 97% Weight: 101 lbs 09/15/2018 Blood Pressure 1: 130/70 Code: 8480-6 BMI: 20.6 Code: 44807-2 Heart Rate 1: 75 bpm Height: 5' SpO2: 99% Weight: 105 lbs 8 oz 09/10/2018 Blood Pressure 1: 126/68 Code: 8480-6 BMI: 20.7 Code: 40481-3 Heart Rate 1: 63 bpm Height: 5' SpO2: 96% Waist Measure (cm): 66 cm Weight: 106 lbs 06/01/2018 Blood Pressure 1: 156/76 Code: 8480-6 BMI: 20.1 Code: 02363-8 Heart Rate 1: 68 bpm Height: 5' SpO2: 99% Weight: 103 lbs 05/24/2018 Blood Pressure 1: 120/60 Code: 8480-6 BMI: 20.5 Code: 26627-7 Heart Rate 1: 82 bpm Height: 5' SpO2: 98% Weight: 105 lbs 05/19/2018 Blood Pressure 1: 140/72 Code: 8480-6 BMI: 20.5 Code: 14396-8 Heart Rate 1: 96 bpm Height: 5' SpO2: 98% Weight: 105 lbs 01/12/2018 Blood Pressure 1: 146/78 Code: 8480-6 BMI: 21.1 Code: 29662-1 Heart Rate 1: 85 bpm Height: 5' SpO2: 95% Weight: 108 lbs 10/12/2017 Blood Pressure 1: 138/72 Code: 8480-6 BMI: 21.1 Code: 08814-4 Heart Rate 1: 96 bpm Height: 5' SpO2: 98% Weight: 108 lbs 08/06/2017 Blood Pressure 1: 130/78 Code: 8480-6 BMI: 20.5 Code: 05482-3 Heart Rate 1: 89 bpm Height: 5' SpO2: 98% Weight: 105 lbs 05/13/2017 Blood Pressure 1: 122/70 Code: 8480-6 BMI: 20.5 Code: 30665-7 Heart Rate 1: 80 bpm Height: 5' SpO2: 97% Weight: 105 lbs 03/19/2017 Blood Pressure 1: 138/80 Code: 8480-6 BMI: 20.5 Code: 18371-5 Heart Rate 1: 83 bpm Height: 5' SpO2: 97% Waist Measure (cm): 74 cm Weight: 105 lbs 03/18/2017 Blood Pressure 1: 138/80 Code: 8480-6 BMI: 20.5 Code: 24543-8 Heart Rate 1: 83 bpm Height: 5' SpO2: 97% Weight: 105 lbs 01/27/2017 Blood Pressure 1: 142/68 Code: 8480-6 BMI: 20.5 Code: 86933-0 Heart Rate 1: 69 bpm Height: 5' SpO2: 97% Weight: 105 lbs 12/29/2016 Blood Pressure 1: 154/82 Code: 8480-6 BMI: 20.1 Code: 41723-4 Heart Rate 1: 76 bpm Height: 5' SpO2: 94% Temperature: 37.4 (C ) / 99.4 (F) Weight: 103 lbs 11/19/2016 Blood Pressure 1: 134/74 Code: 8480-6 BMI: 19.7 Code: 07990-2 Heart Rate 1: 64 bpm Height: 5' Weight: 101 lbs 08/13/2016 Blood Pressure 1: 118/56 Code: 8480-6 BMI: 19.5 Code: 85881-9 Heart Rate 1: 64 bpm Height: 5' SpO2: 97% Weight: 100 lbs 07/03/2016 Blood Pressure 1: 120/68 Code: 8480-6 BMI: 19.1 Code: 40546-4 Heart Rate 1: 80 bpm Height: 5' SpO2: 98% Weight: 98 lbs 05/07/2016 Blood Pressure 1: 116/58 Code: 8480-6 BMI: 19.1 Code: 33408-0 Heart Rate 1: 79 bpm Height: 5' SpO2: 98% Weight: 98 lbs 04/08/2016 Blood Pressure 1: 118/58 Code: 8480-6 BMI: 19.0 Code: 42661-7 Heart Rate 1: 78 bpm Height: 5' SpO2: 98% Weight: 97 lbs 8 oz 03/11/2016 Blood Pressure 1: 102/60 Code: 8480-6 BMI: 19.7 Code: 81919-1 Heart Rate 1: 75 bpm Height: 5' SpO2: 94% Waist Measure (cm): 71 cm Weight: 101 lbs 12/27/2015 Blood Pressure 1: 128/72 Code: 8480-6 BMI: 20.2 Code: 72413-9 Heart Rate 1: 95 bpm Height: 5' SpO2: 98% Weight: 103 lbs 8 oz 09/24/2015 Blood Pressure 1: 136/70 Code: 8480-6 BMI: 19.1 Code: 41608-4 Heart Rate 1: 72 bpm Height: 5' SpO2: 97% Weight: 98 lbs 06/26/2015 Blood Pressure 1: 144/64 Code: 8480-6 BMI: 18.9 Code: 08893-0 Heart Rate 1: 77 bpm Height: 5' SpO2: 98% Weight: 97 lbs 04/10/2015 Blood Pressure 1: 132/88 Code: 8480-6 BMI: 18.9 Code: 27890-5 Heart Rate 1: 83 bpm Height: 5' [...] Alleviating Factors medication 09/15/2018 None hypothyroid Quality environmental tech deisy 09/15/2018 None hypothyroid Onset and [...] 09/10/2018 None Annual Medicare Wellness Exam Depres raaft or Hopelessness almost never 09/10/2018 None Annual [...] Alleviating Factors medication 05/19/2018 None hypothyroid Quality environmental tech deisy 05/19/2018 None hypertension Quality tari [...] Encounters Encounter Performer Loca tion Codes Date ([id number]) 04763 EST. P ATIENT, LEVEL IV Diagnosis: Other specified bacterial intestinal infections[ICD10: A04.8] Diagnosis: Enterocolitis due to Clostridium difficile, recurrent[ICD10: A04.71] Diagnosis: Essential (primary) hypertension[ICD10: I10] Kailee Moreira MD, [facility] CPT-4: 20958 11/25/2018 ([id number]) 43487 EST. P ATIENT, LEVEL IV Diagnosis: Essential (primary) hypertension[ICD10: I10] Diagnosis: Atrophy of thyroid (acquired)[ICD10: E03.4] Diagnosis: Low back pain[ICD10: M54.5] Diagnosis: Other specified noninflammatory disorders of vagina[ICD10: N89.8] Kailee Moreira MD, [facility] CPT-4: 95730 09/15/2018 ([id number]) 83767 EST. P ATIENT, LEVEL III Diagnosis: Dizziness and giddiness[ICD10: R42] Diagnosis: Allergic contact dermatitis due to plants, except food[ICD10: L23.7] Marixa Moreira MD, [facility] CPT-4: 46098 06/01/2018 ([id number]) 86172 EST. P ATIENT, LEVEL III Diagnosis: Allergic contact dermatitis due to plants, except food[ICD10: L23.7] Marixa Moreira MD, [facility] CPT-4: 34060 05/24/2018 ([id number]) 07815 EST. P ATIENT, LEVEL IV Diagnosis: Essential (primary) hypertension[ICD10: I10] Diagnosis: Atrophy of thyroid (acquired)[ICD10: E03.4] Diagnosis: Obstructive sleep apnea (adult) (pediatric)[ICD10: G47.33] Kailee Moreira MD, [facility] CPT-4: 56446 05/19/2018 ([id number]) 54005 EST. P ATIENT, LEVEL IV Diagnosis: Essential (primary) hypertension[ICD10: I10] Diagnosis: Atrophy of thyroid (acquired)[ICD10: E03.4] Diagnosis: Low back pain[ICD10: M54.5] Kailee Moreira MD, [facility] CPT-4: 68881 01/12/2018 ([id number]) 07791 EST. P ATIENT, LEVEL III Diagnosis: Headache[ICD10: R51] Kailee Moreira MD, [facility] CPT-4: 40371 10/12/2017 ([id number]) 66712 EST. P ATIENT, LEVEL IV Diagnosis: Atrophy of thyroid (acquired)[ICD10: E03.4] Diagnosis: Essential (primary) hypertension[ICD10: I10] Diagnosis: Obstructive sleep apnea (adult) (pediatric)[ICD10: G47.33] Kailee Moreira MD, [facility] CPT-4: 54931 08/06/2017 ([id number]) 93598 EST. 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 P ATIENT, LEVEL IV Diagnosis: Atrophy of thyroid (acquired)[ICD10: E03.4] Diagnosis: Essential (primary) hypertension[ICD10: I10] Diagnosis: Encounter for screening for other musculoskeletal disorder[ICD10: Z13.828] Diagnosis: Low back pain[ICD10: M54.5] Diagnosis: Transient alteration of awareness[ICD10: R40.4] Kailee Moreira MD, [facility] CPT-4: 78110 03/18/2017 ([id number]) 11595 EST. P ATIENT, LEVEL IV Diagnosis: Atrophy of thyroid (acquired)[ICD10: E03.4] Diagnosis: Essential (primary) hypertension[ICD10: I10] Diagnosis: Low back pain[ICD10: M54.5] Kailee Moreira MD, [facility] CPT-4: 98304 01/27/2017 ([id number]) 96072 EST. P ATIENT, LEVEL III Diagnosis: Acute recurrent maxillary sinusitis[ICD10: J01.01] Marixa Moreira MD, [facility] CPT-4: 85319 12/29/2016 ([id number]) 28127 EST. P ATIENT, LEVEL IV Diagnosis: Atrophy of thyroid (acquired)[ICD10: E03.4] Diagnosis: Essential (primary) hypertension[ICD10: I10] Kailee Moreira MD, [facility] CPT-4: 61910 11/19/2016 ([id number]) 41163 EST. P ATIENT, LEVEL IV Diagnosis: Atrophy of thyroid (acquired)[ICD10: E03.4] Diagnosis: Enterocolitis due to Clostridium difficile[ICD10: A04.7] Diagnosis: Essential (primary) hypertension[ICD10: I10] Kailee Moreira MD, [facility] CPT-4: 41468 08/13/2016 ([id number]) 78679 EST. P ATIENT, LEVEL IV Diagnosis: Essential (primary) hypertension[ICD10: I10] Diagnosis: Enterocolitis due to Clostridium difficile[ICD10: A04.7] Diagnosis: Hypothyroidism, unspecified[ICD10: E03.9] Diagnosis: Low back pain[ICD10: M54.5] Kailee Moreira MD, [facility] CPT-4: 61217 07/03/2016 ([id number]) 04700 EST. P ATIENT, LEVEL IV Diagnosis: Enterocolitis due to Clostridium difficile[ICD10: A04.7] Diagnosis: Lyme disease, unspecified[ICD10: A69.20] Kailee Moreira MD, [facility] CPT-4: 97693 05/07/2016 ([id number]) 19488 EST. P ATIENT, LEVEL IV Diagnosis: Generalized abdominal rigidity[ICD10: R19.37] Diagnosis: Diarrhea, unspecified[ICD10: R19.7] Diagnosis: Lyme disease, unspecified[ICD10: A69.20] Kailee Moreira MD, [facility] CPT-4: 13110 04/08/2016 ([id number]) 69303 EST. P ATIENT, LEVEL IV Diagnosis: Hypothyroidism, unspecified[ICD10: E03.9] Diagnosis: Lyme disease, unspecified[ICD10: A69.20] Diagnosis: Tachycardia, unspecified[ICD10: R00.0] [facility] CPT-4: 44383 12/27/2015 ([id number]) 27950 EST. P ATIENT, LEVEL III Diagnosis: Essential (primary) hypertension[ICD10: I10] Diagnosis: Benign lipomatous neoplasm of skin and subcutaneous tissue of other sites[ICD10: D17.39] Diagnosis: Low back pain[ICD10: M54.5] [facility] CPT-4: 85645 09/24/2015 ([id number]) 36630 EST. 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 11/25/2018 Patient Education: Patient Medication Summary Completed [...] the chiropractor. 09/15/2018 Appointment: Kailee Moreira WPtel: [facility] 30 min appointments only in this [...] care surrogate. 09/10/2018 Appointment: Kiersten Armando WPtel: [facility]2 [facility] [facility] - Annual Wellness Visit 09/10/2018 Patient Education: Patient Medication Summary Completed 09/10/2018 Appointment: Injection 06/14/2018 Visit Plan: Contact dermatitis-disc ussed with Dr Moreira -rx for dexamethasone sent to patient's pharmacy and instructed on use-will also send rx for topical betamethsone -instructed patient to call if symptoms do not resolve or if any worse Zwhxjsofm-GVY-dukholaw fluids-monitor blood pressure- call if dizziness does not resolve or if any worse-patient and verbalized understanding 06/01/2018 Appointment: Marixa Lakhani WPtel: [phone] (15 min) Moderate 06/01/2018 Patient Education: Patient Medication Summary Completed 06/01/2018 Visit Plan: Contact dermatitis due to poison magalys/oak-kenalog injection today- pt is to use topical treatments as directed. Pt is cleanse clothing in hot water with soap, and call if symptoms do not improve or if they worsen. 05/24/2018 Appointment: Marixa Lakhani WPtel: [phone] [phone] [place] (15 min) Moderate 05/24/2018 Patient Education: [...] when awakening. 05/19/2018 Appointment: Kailee Moreira WPtel: [facility] [place] (30 min) Complex 05/19/2018 Patient [...] thighs bilaterally 01/12/2018 Appointment: Kailee Moreira WPtel: [facility] [place] (15 min) Moderate 01/12/2018 Patient Education: Patient Medication Summary Completed 01/12/2018 Appointment: Kailee Moreira WPtel: [address] [place], [place] [address] (15 min) Moderate 12/02/2017 Visit Plan: Headache - recommended patient to use PRN Fioricet for headaches - call if not improving. 10/12/2017 Appointment: Ka[facility] Moreira [facility]Ptel[facility] [facility] (15 min) Moderate 10/12/2017 Patient Education: Patient [...] apnea - order humidification for cpap - [place] home patient/[facility]- find out if they need [...] at home. 08/06/2017 Appointment: Kailee Moreira WPtel: [facility] [facility] (15 min) Moderate 08/06/2017 Patient Education: Patient Medication Summary Completed 08/06/2017 Care Plan: Comp Metabolic Pending 08/06/2017 Care Plan: Tsh Pending 08/06/2017 Care Plan: Free T4 Pending 08/06/2017 Care Plan: Lipid Pending 08/06/2017 Care Plan: Cbc With Differential Pending 08/06/2017 Appointment: Kailee Moreira WPtel: [facility] [place] (15 min) Moderate 07/21/2017 Visit Plan: Hypothyroidism [...] stop lisinopril. 05/13/2017 Appointment: Kailee Moreira WPtel: [facility]6 [facility] (15 min) Moderate 05/13/2017 Patient Education: Patient Medication Summary Completed 05/13/2017 Patient Education: Hypertension Completed 05/13/2017 Appointment: Kailee Moreira WPtel: [facility] (15 min) Moderate 05/06/2017 Visit [...] care surrogate. 03/19/2017 Appointment: Kiersten Armando WPtel: [facility]7 [facility] [place] [address] - Annual Wellness Visit 03/19/2017 Patient Education: [...] of control. p hysical therapy at [facility] - water therapy for back eeg - needs ordered at hospital. 03/18/2017 Appointment: Kailee Moreira [facility]Ptel[facility] [phone] [place] (15 min) Moderate 03/18/2017 Patient Education: [...] improve. 01/27/2017 Appointment: Kailee Moreira [facility]Ptel[facility] [phone] [facility] (15 min) Moderate 01/27/2017 Patient Education: Patient Medication Summary Completed 01/27/2017 Patient Education: Hypertension Completed 01/27/2017 Visit Plan: Sinusitis - Pt has acut e infection - pain in face, maxillary region, Pt informed to use decongestant, RX given to patient, sinus rinses also recommended. Call if symptoms do not show improvement. 12/29/2016 Appointment: [phone] [phone] [place] (30 min) Complex 12/29/2016 Patient [...] of control. 11/19/2016 Appointment: Kailee Moreira WPtel: [facility] (15 min) Moderate 11/19/2016 Patient Education: [...] have improved. 08/13/2016 Appointment: Kailee Moreira WPtel: [facility] [place] [facility] (15 min) Moderate 08/13/2016 Patient Education: Patient Medication Summary Completed 08/13/2016 Patient Education: Hypertension Completed 08/13/2016 Appointment: Kailee Moreira WPtel: [facility] [place] (30 min) Complex 07/31/2016 Visit Plan: Hypertension [...] of control. 07/03/2016 Appointment: Kailee Moreira WPtel: [facility]5 [facility] (15 min) Moderate 07/03/2016 Patient Education: Patient Medication Summary Completed 07/03/2016 Patient Education: Hypertension Completed 07/03/2016 Visit Plan: Cdiff colitis - pt to h ave repeat testing - if positive will have to repeat treatment. Continue with probiotic. Lymes disease - continue with treatment per Dr. Carrillo. alex sample x 18 days given to patient. 05/07/2016 Appointment: Kailee Moreira WPtel: [address] [place], [place] [id number] (15 min) Moderate 05/07/2016 Patient Education: Patient Medication Summary Completed 05/07/2016 Visit Plan: Diarrhea - suspect the diarrhea is Cdiff related - check stool and treat with flagyl, probiotic to increase to three times daily - continue to hold iv antibiotic. Lyme disease - treating with iv antibiotics - on hold while she has diarrhea. 04/08/2016 Appointment: Kailee Moreira WPtel: [id number] (15 min) Moderate 04/08/2016 Patient Education: Patient Medication Summary Completed 04/08/2016 Appointment: Kailee Moreira WPtel: [address] [place], [place] [id number] (15 min) Moderate 04/03/2016 Visit [...] surrogate. Lyme disease - sees Dr. Nabor Syed has [...] surrogate. Lyme disease - sees Dr. 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 03/11/2016 Patient Education: Patient Medication Summary Completed 03/11/2016 App[facility]ment: [facility] [phone] [id number] (15 min) Moderate 01/24/2016 Visit Plan: [...] of control. 12/27/2015 Appointment: [phone] [id number] (15 min) Moderate 12/27/2015 Patient Education: [...] improve. 06/26/2015 Appointment: [facility] [phone] [id number] (15 min) Moderate 06/26/2015 Patient Education: [...] spine Lymes disease-sees Dr Carrillo-lymes specialist in [place], [place] CAD-HX [id number] by Dr Hyde 04/10/2015 Appointment: (S) New Patient 04/10/2015 Patient Education: Patient Medication Summary Completed 04/10/2015 Patient Education: Hypertension Completed 04/10/2015 Instructions Comment . Diarrhea - discuss ed with pt [...] DOPA paperwork for health care surrogate. . Contact dermatitis due to poison magalys/oak-kenalog injection today- pt is to use topical treatments as directed. Pt is cleanse clothing in hot water with soap, and call if symptoms do not improve or if they worsen. . Cdiff colitis - pt to have [...] levels of control. physical therapy at [facility] - water therapy for back eeg [...] voltaren gel to the lateral thighs bilaterally REPEAT MRI SPINE . 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 Hypothyroidism - p [...] apnea - order humidification for cpap - [place] home patient/[employer]- find out if they need [...] do not resolve or if any worse [id number] fluids-monitor blood pressure-call if dizziness does not [...]
--- OUTSIDE RECORDS SUMMARY | 2020-05-05 12:12 | XMS REPORT | CCD ---
Author Author Emily Lakhani Organization [facility] Address [address] [place] [address] Phone Care Team Providers Care Cash Applications Manager Name Role Phone PP Unavailable CCM Unavailable Summary Purpose Interface Exchange Insurance Providers Payer name Policy type / Coverage type Covered alliance party ID Effective Begin Date Effective End Date WPS Medicare Part B Medicare Part B [id number] 2018 Unknown [employer] Medicare Part B [id number] Unknown Family history Mother Diagnosis Age At [...] Retir ed 04/10/[address]: 027432670 Never smoker 04/10/[address]: 470766163 Never drinks alcohol 04/10/2015 Allergies, Adverse Reactions, [...] tions Start Date Stop Date Fill Instructions [place] Thyroid 90 mg tablet RxNorm: 910626 Tablet(s) 1/2 TABLET( S) PO DAILY 11/18/2018 02/10/2020 Ac tive [place] Thyroid 60 mg tablet RxNorm: 908816 1 Tablet(s) PO 3 x we jenise Dominguez 11/17/2018 11/11/2019 Ac tive hold until she is ready to refill [place] Thyroid 30 mg tablet RxNorm: 603819 1 Tablet(s) PO 4 time s a week Thu SAT 11/17/2018 02/09/2020 Active Please fill now- she will use her curren t supply of 60mg until she needs refill [place] Thyroid 30 mg tablet RxNorm: 957064 1 Tablet(s) PO 4 time s a week Thu SAT 11/17/2018 11/16/2018 Inactive Please fill now- she will use her curren t supply of 60mg until she needs refill Flagyl 500 mg tablet RxNorm: 202149 1 Tablet(s) PO TID 2018 10/17/2018 Inactive Flagyl 500 mg tablet RxNorm: 304962 1 Tablet(s) PO TID 10/06/2018 10/05/2018 Inactive Flagyl 500 mg tablet RxNorm: 318636 1 Tablet(s) PO TID 10/06/2018 10/10/2018 Inactive cefdinir 300 mg capsule RxNorm: 576553 1 Capsule(s) PO BID 09/29/2018 10/05/2018 Inactive cefdinir 300 mg capsule RxNorm: 516900 1 Capsule(s) PO BID 09/29/2018 09/28/2018 Inactive estradiol 0.01% (0.1 mg/gram) vaginal cream RxNorm: 163570 1 Gram(s) VAG BIW 09/15/2018 03/13/2019 Ac tive Imitrex 50 mg tablet RxNorm: 803338 TAKE WITH ONSET OF MIGRAINE- MAY TAKE AN ADDITIONAL DOSE IF NO RELIEF OF HEADACHE IN 1 HOUR- MAX OF 3 DOSES IN 24 HOURS Tablet(s) 06/14/2018 No Stop Date Active betamethasone gwendolyn te 0.1 % topical cream RxNorm: 523112 1 Application TOP TID 06/01/2018 06/10/2018 In active dexamethasone 4 mg t ablet RxNorm: 502900 1 Tablet(s) PO daily 06/01/2018 06/05/2018 Inactive Kenalog 40 mg/mL sadiq pension for injection RxNorm: 4678862 1.5 Milliliter(s) In j 05/24/2018 05/24/2018 In active amitriptyline 10 mg tablet RxNorm: 173947 1/2 TO 1 TABLET(S) PO QPM 01/21/2018 09/14/2018 Inactive [place] Thyroid 60 mg tablet RxNorm: 377672 1 Tablet(s) PO daily 01/12/2018 11/16/2018 Inactive carvedilol 3.125 mg tablet RxNorm: 802210 1 Tablet(s) PO BID 10/12/2017 No Stop Date Active Fiorinal-Codeine #3 30 mg-50 mg-325 mg-40 mg capsule RxNorm: 420639 1 Capsule(s) PO BID 10/12/2017 11/10/2017 Inactive progesterone microni zed 100 mg capsule RxNorm: 268473 1 Capsule(s) PO daily on days 1- 25 of each month 10/12/2017 01/11/2018 Inactive [place] Thyroid 90 mg tablet RxNorm: 458628 1/2 Tablet(s) PO melinda y 1/2 TABLET(S) PO DAILY 08/06/2017 01/11/2018 Inactive [place] Thyroid 90 mg tablet RxNorm: 400318 1/2 TABLET(S) PO DAILY 07/14/2017 08/05/2017 Inactive Keppra 500 mg tablet RxNorm: 457169 1 Tablet(s) PO BID 05/13/2017 08/05/2017 Inactive Deplin (algal oil) 1 5 mg-90.314 mg capsule RxNorm: TAKE ONE CAPSULE BY MOUTH O NE TIME DAILY 05/13/2017 01/11/2018 Inactive Keppra 250 mg tablet RxNorm: 762563 1 Tablet(s) PO daily 04/23/2017 04/22/2017 Inactive take 1 tab qd x 1 week then increase to BID Keppra 250 mg tablet RxNorm: 470284 1 Tablet(s) PO daily 04/23/2017 05/12/2017 Inactive take 1 tab qd x 1 week then increase to BID cyclobenzaprine 5 mg tablet RxNorm: 513103 1 Tablet(s) PO TID as needed 02/03/2017 02/22/2017 In active cyclobenzaprine 5 mg tablet RxNorm: 701023 1 Tablet(s) PO TID as needed 02/03/2017 02/02/2017 In active [place] Thyroid 90 mg tablet RxNorm: 279269 1/2 Tablet(s) PO daily 11/19/2016 03/18/2017 Inactive amitriptyline 10 mg tablet RxNorm: 291935 1/2 to 1 Tablet(s) PO QPM 11/19/2016 11/13/2017 Inactive fluconazole 50 mg ta blet RxNorm: 373735 1 Tablet(s) PO daily 08/20/2016 09/02/2016 Inactive [place] Thyroid 90 mg tablet RxNorm: 196010 1/2 Tablet(s) PO daily 08/11/2016 11/18/2016 Inactive Flagyl 500 mg tablet RxNorm: 121376 1 Tablet(s) PO TID 07/28/2016 01/11/2018 Inactive Flagyl 500 mg tablet RxNorm: 230336 1 Tablet(s) PO TID 07/17/2016 07/27/2016 Inactive amitriptyline 10 mg tablet RxNorm: 634419 1/2 to 1 Tablet(s) PO QPM 07/03/2016 10/30/2016 Inactive metronidazole 500 mg tablet RxNorm: 828479 1 Tablet(s) PO QID 07/03/2016 07/12/2016 Inactive amitriptyline 25 mg tablet RxNorm: 244386 1/2 -1 Tablet(s) PO Q HS as needed insomnia 06/26/2016 07/02/2016 Inactive vancomycin 125 mg ca psule RxNorm: 309259 1 Capsule(s) PO QID 06/20/2016 06/29/2016 Inactive [place] Thyroid 30 mg tablet RxNorm: 561015 1.5 Tablet(s) PO daily 06/20/2016 06/19/2016 Inactive [place] Thyroid 30 mg tablet RxNorm: 711455 1.5 Tablet(s) PO daily 06/20/2016 08/10/2016 Inactive fluconazole 50 mg ta blet RxNorm: 603497 1 Tablet(s) PO daily 06/16/2016 08/19/2016 Inactive amitriptyline 25 mg tablet RxNorm: 472643 1/2 -1 Tablet(s) PO Q HS as needed insomnia 06/12/2016 06/11/2016 Inactive amitriptyline 25 mg tablet RxNorm: 351955 1/2 -1 Tablet(s) PO Q HS as needed insomnia 06/12/2016 06/25/2016 Inactive vancomycin 125 mg ca psule RxNorm: 585753 1 Capsule(s) PO QID 06/12/2016 06/19/2016 Inactive fluconazole 50 mg ta blet RxNorm: 296305 1 Tablet(s) PO daily 06/12/2016 06/15/2016 Inactive Diflucan 150 mg tablet RxNorm: 220778 1 Tablet(s) PO daily 06/05/2016 06/09/2016 Inactive Deplin (algal oil) 1 5 mg-90.314 mg capsule RxNorm: 1 Capsule(s) PO daily 06/05/2016 06/04/2016 In active Diflucan 150 mg tablet RxNorm: 659927 1 Tablet(s) PO daily 06/05/2016 06/04/2016 Inactive Deplin (algal oil) 1 5 mg-90.314 mg capsule RxNorm: 1 Capsule(s) PO daily 06/05/2016 05/12/2017 In active nystatin 500,000 uni t tablet RxNorm: 748035 4 Tablet(s) PO daily 05/21/2016 09/17/2016 Inactive Vitamin D3 5,000 uni t tablet RxNorm: 870557 Tablet(s) PO daily 05/07/2016 No Stop Date Active nystatin 500,000 uni t tablet RxNorm: 104139 1 Tablet(s) PO Q4H 05/07/2016 05/20/2016 Inactive fluconazole 100 mg t ablet RxNorm: 066205 1 Tablet(s) PO daily 05/07/2016 06/11/2016 Inactive progesterone microni zed 100 mg capsule RxNorm: 779729 3 Capsule(s) PO daily on days 1- 25 of each month 05/07/2016 2017 Inactive metronidazole 500 mg tablet RxNorm: 106131 1 Tablet(s) PO TID 04/30/2016 05/09/2016 Inactive metronidazole 500 mg tablet RxNorm: 786763 1 Tablet(s) PO TID 04/30/2016 04/29/2016 Inactive vancomycin 125 mg ca psule RxNorm: 664102 1 Capsule(s) PO QID 04/29/2016 05/08/2016 Inactive vancomycin 125 mg ca psule RxNorm: 021859 1 Capsule(s) PO QID 04/29/2016 04/28/2016 Inactive Flagyl 500 mg tablet RxNorm: 693177 1 Tablet(s) PO TID 04/09/2016 04/08/2016 Inactive Flagyl 500 mg tablet RxNorm: 365638 1 Tablet(s) PO TID 04/09/2016 04/22/2016 Inactive carvedilol 3.125 mg tablet RxNorm: 954245 1 Tablet(s) PO BID 04/08/2016 2017 Inactive [place] Thyroid 60 mg tablet RxNorm: 598022 Tablet(s) PO 1 Tablet (s) daily 01/31/2016 06/19/2016 In active Pt request 90 day supply 11/23/2015 11:1 1:54 AM [place] Thyroid 30 mg tablet RxNorm: 803049 1 Tablet(s) daily 01/28/2016 01/30/2016 Inactive Pt request 90 day supply 11/23/2015 11:1 1:54 AM [place] Thyroid 30 mg tablet RxNorm: 626079 1 Tablet(s) daily 01/21/2016 01/27/2016 Inactive Pt request 90 day supply 11/23/2015 11:1 1:54 AM [place] Thyroid 30 mg tablet RxNorm: 243816 Tablet(s) TAKE ONE AN D ONE-HALF (45 MG) TABLET BY MOUTH EVERY DAY 01/02/2016 01/20/2016 Inactive Pt request 90 day supply 11/23/2015 11:11:54 AM Xylocaine 20 mg/mL ( 2 %) injection solution RxNorm: 9988852 2.5 Milliliter(s) In j BID with cefepime 12/27/2015 01/25/2016 Inactive cefepime 1 gram solu tion for injection RxNorm: 8400569 Inj 12/1012/27/2015 Inactive [place] Thyroid 30 mg tablet RxNorm: 444576 TAKE ONE TABLET BY [facility] EVERY DAY 11/23/2015 01/01/2016 In active Pt request 90 day supply 11/23/2015 11:1 1:54 AM Voltaren 1 % topical gel RxNorm: 672313 2 Gram(s) TOP QID 09/24/2015 12/26/2015 Inactive cyclobenzaprine 10 m g tablet RxNorm: 021561 1 Tablet(s) PO Q6 as needed 08/27/2015 05/06/2016 In active [place] Thyroid 30 mg tablet RxNorm: 175742 1 Tablet(s) PO daily 06/21/2015 06/20/2015 Inactive [place] Thyroid 30 mg tablet RxNorm: 114435 1 Tablet(s) PO daily 06/21/2015 11/22/2015 Inactive Synthroid 25 mcg tablet RxNorm: 174965 1 Tablet(s) PO daily 06/07/2015 06/06/2015 Inactive KASEY-1 Synthroid 25 mcg tablet RxNorm: 571076 1 Tablet(s) PO daily 06/07/2015 06/20/2015 Inactive [facility]ASE[facility]-1 ofloxacin 0.3 % ear drops RxNorm: 195385 1-2 Drop(s) OTIC OU Q 4H as needed No Start Date Active Aspirin Low Dose 81 mg tablet,delayed release RxNorm: 670231 1 Tablet(s) PO daily No Start Date Active tyrosine (bulk) powder RxNorm: 1 Miscellaneous dash every am No Start Date Active arginine (L-arginine ) oral RxNorm: 1091 oral No Sta rt Date Active glutathione RxNorm: 4890 miscellaneous No Start Date Active Plaquenil 200 mg tablet RxNorm: 602406 1 Tablet(s) PO BID No Start Date 05/19/2016 Inactive fluconazole 100 mg t ablet RxNorm: 118017 1/2 Tablet(s) PO daily No Start Date 05/06/2016 Inactive fluconazole 150 mg t ablet RxNorm: 493949 1 Tablet(s) PO QW x4 No Start Date 12/26/2015 Inactive progesterone microni zed 100 mg capsule RxNorm: 791699 2 Capsule(s) PO daily No Start Date 05/06/2016 Inactive nystatin 500,000 uni t tablet RxNorm: 687125 1 Tablet(s) PO QID No Start Date 05/06/2016 Inactive cyclobenzaprine 10 m g tablet RxNorm: 518999 1 Tablet(s) PO Q6 as needed No Start Date 08/26/2015 Inactive vitamin K oral RxNorm: 8308 oral No Start Date 12/26/2015 Inactive carvedilol 3.125 mg tablet RxNorm: 053572 1 Tablet(s) PO daily No Start Date 04/07/2016 Inactive lisinopril 5 mg tablet RxNorm: 261854 1 Tablet(s) PO daily No Start Date 05/12/2017 Inactive azithromycin 250 mg tablet RxNorm: 418689 1 Tablet(s) PO daily will incrase to 2 per day No Start Date 12/26/2015 Inactive Probiotic 4X oral RxNorm: 3685863 oral No Start Date 01/07/2016 Inactive Imitrex 50 mg tablet RxNorm: 276684 TAKE WITH ONSET OF MIGRAINE- MAY TAKE AN ADDITIONAL DOSE IF NO RELIEF OF HEADACHE IN 1 HOUR- MAX OF 3 DOSES IN 24 HOURS No Start Date 06/13/2018 Inactive Vitamin D3 1,000 uni t tablet RxNorm: 534317 Tablet(s) PO daily No Start Date 05/06/2016 Inactive progesterone microni zed 100 mg capsule RxNorm: 223863 3 Capsule(s) PO daily rx from [facility] No Start Date 12/26/2015 Inactive lorazepam 0.5 mg tablet RxNorm: 487741 1/2-1 Tablet(s) PO daily as needed No Start Date 03/10/2016 Inactive Multiple Vitamin oral RxNorm: 08488 oral No Start Date 05/06/2016 Inactive Medication Administered Medication Codes Instruc tions Start Date Status Kenalog 40 mg/mL suspension for injection RxNorm: 0950653 1.5Milliliter 05/24/2018 No longer Active cefepime 1 gram solution for injection RxNorm: 4213360 12/27/2015 No longer A ctive Immunizations No Immunization data Assessments Condition Codes Effectiv e Dates Low back pain ICD-10: M54.5 ICD-9: 724.2 09/15/2018 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 ICD-9: 625.8 09/15/2018 Essential (primary) hypertension ICD -10: I10 ICD-9: 401.9 09/15/2018 Atrophy of thyroid (acquired) ICD-10 : [...] Reason For Visit Effective Dates Notes hypertension 09/15/2018 Annual Medicare Wellness Exam 09/10/2018 [...] Item Item Code Result Date Comp Metabolic Snh482 NA 145 mEq/L 06/14/2018 Comp Metabolic Iux039 K 4.0 mEq/L 06/14/2018 Comp Metabolic Auq909 CL 106 mEq/L 06/14/2018 Comp Metabolic Onc389 CO2 31.0 mEq/L 06/14/2018 Comp Metabolic Kkj297 AN ION GAP 12 06/14/2018 Comp Metabolic Rat834 GL UCOSE 88 mg/dL 06/14/2018 Comp Metabolic Lgb555 Cr eat 0.7 mg/dL 06/14/2018 Comp Metabolic Ars485 eG FR 92 ml/min/1.73m2 06/14 Comp Metabolic Kwu726 BUN 9 mg/dL 06/14/2018 Comp Metabolic Ynj852 B/ C Ratio 13.6 Ratio 06/14/2018 Comp Metabolic Fvl990 CA LCIUM 9.0 mg/dL 06/14/2018 Comp Metabolic Beh757 AL K PHOS 36 U/L 06/14/2018 Comp Metabolic Ojh709 T(SGOT) 21 U/L 06/14/2018 Comp Metabolic Ttr196 AL T(SGPT) 22 U/L 06/14/2018 Comp Metabolic Dat904 BI LI T 0.3 mg/dL 06/14/2018 Comp Metabolic Fac976 AL BUMIN 3.8 g/dL 06/14/2018 Comp Metabolic Uyi693 TP RO 5.8 g/dL 06/14/2018 Comp Metabolic Alu283 GL OB 2.0 g/dL 06/14/2018 Comp Metabolic Foq781 A/ G Ratio 2.0 Ratio 06/14/2018 Comp Metabolic Ajh073 Os mo 287 mOsmo 06/14/2018 Free T4 Ras511 FREE T4 0.66 ng/dL 06/14/2018 Tsh Ord6 [...] 32.9 % 06/14/2018 Cbc With Differential Ord2 [place]% 13.9 % 06/14/2018 Cbc With Differential Ord2 [...] 1.40 K/ul 06/14/2018 Cbc With Differential Ord2 [place] ABS# 0.6 K/ul 06/14/2018 Cbc With Differential Ord2 Eos ABS# 0.2 K/ul 06/14/2018 Cbc With Differential Ord2 Baso ABS# 0.0 K/ul 06/14/2018 Free T4 Paz613 FREE T4 0.63 ng/dL 01/05/2018 Lipid Ord30 CHOL 246 mg/dL 01/05/2018 Lipid Ord30 HDL 79.0 mg/dl 01/05/2018 Lipid Ord30 TRIG 124 mg/dL 01/05/2018 Lipid Ord30 LDL 142 mg/dL 01/05/2018 Lipid Ord30 C/HDL 3.1 Ratio 01/05/2018 Tsh Ord6 TSH (3rd IS) 1.48 uIU/mL 01/05/2018 Tsh Ord6 hTSH II 2.03 uIU/mL 08/07/2017 Comp Metabolic Rps354 NA 142 mEq/L 08/07/2017 Comp Metabolic Cpy242 K 4.1 mEq/L 08/07/2017 Comp Metabolic Unu619 CL 105 mEq/L 08/07/2017 Comp Metabolic Gde757 CO2 27.0 mEq/L 08/07/2017 Comp Metabolic Gvy718 AN ION GAP 14 08/07/2017 Comp Metabolic Urb725 GL UCOSE 89 mg/dL 08/07/2017 Comp Metabolic Nvx071 Cr eat 0.7 mg/dL 08/07/2017 Comp Metabolic Cxu889 eG FR 86 ml/min/1.73m2 08/07 Comp Metabolic Jnt066 BUN 16 mg/dL 08/07/2017 Comp Metabolic Wse207 B/ C Ratio 22.9 Ratio 08/07/2017 Comp Metabolic Spd807 CA LCIUM 9.8 mg/dL 08/07/2017 Comp Metabolic Hwa592 AL K PHOS 41 U/L 08/07/2017 Comp Metabolic Gdz142 T(SGOT) 26 U/L 08/07/2017 Comp Metabolic Xbo336 AL T(SGPT) 21 U/L 08/07/2017 Comp Metabolic Bkz972 BI LI T 0.5 mg/dL 08/07/2017 Comp Metabolic Fdt443 AL BUMIN 4.3 g/dL 08/07/2017 Comp Metabolic Vtq299 TP RO 6.6 g/dL 08/07/2017 Comp Metabolic Zko332 GL OB 2.3 g/dL 08/07/2017 Comp Metabolic Mgo843 A/ G Ratio 1.9 Ratio 08/07/2017 Comp Metabolic Psg435 Os mo 284 mOsmo 08/07/2017 Free T4 Gbl229 FREE T4 0.64 ng/dL 08/07/2017 Lipid Ord30 [...] 30.3 pg 08/07/2017 Cbc With Differential Ord2 [place]% 13.9 % 08/07/2017 Cbc With Differential Ord2 [...] 1.49 K/ul 08/07/2017 Cbc With Differential Ord2 [place] ABS# 0.6 K/ul 08/07/2017 Cbc With Differential [...] 92.3 fl 11/20/2016 Cbc With Differential Ord2 [place]% 10.8 % 11/20/2016 Cbc With Differential Ord2 [...] 1.62 K/ul 11/20/2016 Cbc With Differential Ord2 [place] ABS# 0.5 K/ul 11/20/2016 Cbc With Differential Ord2 Eos ABS# 0.2 K/ul 11/20/2016 Cbc With Differential Ord2 Baso ABS# 0.0 K/ul 11/20/2016 Free T4 Ttg229 FREE T4 0.80 ng/dL 11/20/2016 Tsh Ord6 hTSH II 1.35 uIU/mL 11/20/2016 Comp Metabolic Izs185 NA 139 mEq/L 11/20/2016 Comp Metabolic Ycs238 K 3.9 mEq/L 11/20/2016 Comp Metabolic Pzi951 CL 103 mEq/L 11/20/2016 Comp Metabolic Oxg684 CO2 30.0 mEq/L 11/20/2016 Comp Metabolic Zbr694 AN ION GAP 10 11/20/2016 Comp Metabolic Uzl144 GL UCOSE 85 mg/dL 11/20/2016 Comp Metabolic Znw521 Cr eat 0.7 mg/dL 11/20/2016 Comp Metabolic Udx842 eG FR 93 ml/min/1.73m2 11/20 Comp Metabolic Rwj316 BUN 12 mg/dL 11/20/2016 Comp Metabolic Ldy746 B/ C Ratio 18.2 Ratio 11/20/2016 Comp Metabolic Ikk995 CA LCIUM 9.1 mg/dL 11/20/2016 Comp Metabolic Apj413 AL K PHOS 34 U/L 11/20/2016 Comp Metabolic Eko371 T(SGOT) 18 U/L 11/20/2016 Comp Metabolic Izf419 AL T(SGPT) 14 U/L 11/20/2016 Comp Metabolic Woe319 BI LI T 0.5 mg/dL 11/20/2016 Comp Metabolic Ppe631 AL BUMIN 4.2 g/dL 11/20/2016 Comp Metabolic Fip543 TP RO 6.3 g/dL 11/20/2016 Comp Metabolic Jwj180 GL OB 2.1 g/dL 11/20/2016 Comp Metabolic Nkp995 A/ G Ratio 2.0 Ratio 11/20/2016 Comp Metabolic Lsg894 Os mo 277 mOsmo 11/20/2016 Lipid Ord30 CHOL 189 mg/dL 11/20/2016 Lipid Ord30 HDL 81.0 mg/dl 11/20/2016 Lipid Ord30 TRIG 77 mg/dL 11/20/2016 Lipid Ord30 LDL 93 mg/dL 11/20/2016 Lipid Ord30 C/HDL 2.3 Ratio 11/20/2016 Testosterone Free Direct 143424 FREE TESTOSTERONE 0.7 pg/mL 10/06/2016 Estradiol 200610 ESTRADI OL 5.9 pg/mL 10/03/2016 Cortisol 771337 CORTISOL 23 ug/dL 10/03/2016 Progesterone Riu816 Prog 17.38 ng/mL 10/01/2016 Free T4 Ssq651 FREE T4 0.66 ng/dL 08/13/2016 Tsh Ord6 hTSH II 0.99 uIU/mL 08/13/2016 Testosterone Free Direct [id number] FREE TESTOSTERONE <0.2 pg/mL 07/05/2016 Estradiol 913917 ESTRADI OL <5.0 pg/mL 07/03/2016 Progesterone Cpn730 Prog 23.37 ng/mL 07/02/2016 Tsh Ord6 hTSH II 0.24 uIU/mL 06/17/2016 Free T4 Ghr809 FREE T4 0.86 ng/dL 06/17/2016 Estradiol 093488 ESTRADI OL <5.0 pg/mL 05/21/2016 Comp Metabolic Wcy054 NA 140 mEq/L 05/20/2016 Comp Metabolic Swg680 K 4.1 mEq/L 05/20/2016 Comp Metabolic Jkx706 CL 106 mEq/L 05/20/2016 Comp Metabolic Mpx466 CO2 26.0 mEq/L 05/20/2016 Comp Metabolic Mzu506 AN ION GAP 12 05/20/2016 Comp Metabolic Aak404 GL UCOSE 81 mg/dL 05/20/2016 Comp Metabolic Seq777 Cr eat 0.5 mg/dL 05/20/2016 Comp Metabolic Jcr069 eG FR 119 ml/min/1.73m2 05/09 Comp Metabolic Ycl377 BUN 15 mg/dL 05/20/2016 Comp Metabolic Fkc618 B/ C Ratio 28.3 Ratio 05/20/2016 Comp Metabolic Rww001 CA LCIUM 8.9 mg/dL 05/20/2016 Comp Metabolic Myu314 AL K PHOS 36 U/L 05/20/2016 Comp Metabolic Cco924 T(SGOT) 25 U/L 05/20/2016 Comp Metabolic Ssm892 AL T(SGPT) 23 U/L 05/20/2016 Comp Metabolic Qct423 BI LI T 0.4 mg/dL 05/20/2016 Comp Metabolic Phh551 AL BUMIN 3.7 g/dL 05/20/2016 Comp Metabolic Wpq066 TP RO 5.9 g/dL 05/20/2016 Comp Metabolic Fuv079 GL OB 2.2 g/dL 05/20/2016 Comp Metabolic Jpx357 A/ G Ratio 1.7 Ratio 05/20/2016 Comp Metabolic Lcv009 Os mo 279 mOsmo 05/20/2016 Progesterone Itl735 Prog 8.44 ng/mL 05/20/2016 Cbc With Differential [...] 18.4 % 05/20/2016 Cbc With Differential Ord2 [place]% 13.0 % 05/20/2016 Cbc With Differential Ord2 [...] 0.85 K/ul 05/20/2016 Cbc With Differential Ord2 [place] ABS# 0.6 K/ul 05/20/2016 Cbc With Differential [...] collection if refrigerated) 05/20/2016 Testosterone Free Direct [id number] FREE TESTOSTERONE 0.6 pg/mL 05/19/2016 Estradiol 008133 ESTRADI OL <5.0 pg/mL 05/16/2016 Comp Metabolic Lmi001 NA 140 mEq/L 05/15/2016 Comp Metabolic Ivs962 K 3.8 mEq/L 05/15/2016 Comp Metabolic Yns752 CL 106 mEq/L 05/15/2016 Comp Metabolic Gnh364 CO2 26.0 mEq/L 05/15/2016 Comp Metabolic Olb777 AN ION GAP 12 05/15/2016 Comp Metabolic Kjz882 GL UCOSE 77 mg/dL 05/15/2016 Comp Metabolic Xph505 Cr eat 0.5 mg/dL 05/15/2016 Comp Metabolic Feu247 eG FR 144 ml/min/1.73m2 05/2016 Comp Metabolic Hke235 BUN 18 mg/dL 05/15/2016 Comp Metabolic Hpd744 B/ C Ratio 40.0 Ratio 05/15/2016 Comp Metabolic Iuq565 CA LCIUM 8.8 mg/dL 05/15/2016 Comp Metabolic Qbh856 AL K PHOS 28 U/L 05/15/2016 Comp Metabolic Xyh918 T(SGOT) 19 U/L 05/15/2016 Comp Metabolic Cml037 AL T(SGPT) 19 U/L 05/15/2016 Comp Metabolic Lrq583 BI LI T 0.5 mg/dL 05/15/2016 Comp Metabolic Zve222 AL BUMIN 3.6 g/dL 05/15/2016 Comp Metabolic Tnm981 TP RO 5.6 g/dL 05/15/2016 Comp Metabolic Xxa604 GL OB 2.0 g/dL 05/15/2016 Comp Metabolic Ork255 A/ G Ratio 1.8 Ratio 05/15/2016 Comp Metabolic Ixv055 Os mo 280 mOsmo 05/15/2016 Progesterone Ran505 Prog 9.08 ng/mL 05/15/2016 Cbc With Differential [...] 29.9 pg 05/15/2016 Cbc With Differential Ord2 [place]% 14.1 % 05/15/2016 Cbc With Differential Ord2 [...] 1.42 K/ul 05/15/2016 Cbc With Differential Ord2 [place] ABS# 0.6 K/ul 05/15/2016 Cbc With Differential [...] Ord28 U-Com None 05/15/2016 Testosterone Free Direct 707155 FREE TESTOSTERONE 0.2 pg/mL 05/09/2016 Estradiol 194921 ESTRADI OL <5.0 pg/mL 05/07/2016 Comp Metabolic Kqg803 NA 141 mEq/L 05/06/2016 Comp Metabolic Trx433 K 3.6 mEq/L 05/06/2016 Comp Metabolic Iwi068 CL 107 mEq/L 05/06/2016 Comp Metabolic Rrd189 CO2 28.0 mEq/L 05/06/2016 Comp Metabolic Jnu397 AN ION GAP 10 05/06/2016 Comp Metabolic Vpj299 GL UCOSE 138 mg/dL 05/06/2016 Comp Metabolic Ouu504 Cr eat 0.5 mg/dL 05/06/2016 Comp Metabolic Sni150 eG FR 119 ml/min/1.73m2 04/10 Comp Metabolic Qfe994 BUN 16 mg/dL 05/06/2016 Comp Metabolic Yae359 B/ C Ratio 30.2 Ratio 05/06/2016 Comp Metabolic Wzl076 CA LCIUM 8.9 mg/dL 05/06/2016 Comp Metabolic Vnz169 AL K PHOS 29 U/L 05/06/2016 Comp Metabolic Lvh913 T(SGOT) 20 U/L 05/06/2016 Comp Metabolic Rie628 AL T(SGPT) 21 U/L 05/06/2016 Comp Metabolic Dag266 BI LI T 0.4 mg/dL 05/06/2016 Comp Metabolic Uej178 AL BUMIN 3.6 g/dL 05/06/2016 Comp Metabolic Ahf482 TP RO 5.5 g/dL 05/06/2016 Comp Metabolic Dvx200 GL OB 1.9 g/dL 05/06/2016 Comp Metabolic Rja076 A/ G Ratio 1.9 Ratio 05/06/2016 Comp Metabolic Hne641 Os mo 285 mOsmo 05/06/2016 Urinalysis Ord28 [...] hours from collection if refrigerated) 05/06/2016 Progesterone Lnq265 Prog 0.98 ng/mL 05/06/2016 Cbc With Differential [...] 29.9 % 05/06/2016 Cbc With Differential Ord2 [place]% 10.1 % 05/06/2016 Cbc With Differential Ord2 [...] 1.16 K/ul 05/06/2016 Cbc With Differential Ord2 [place] ABS# 0.4 K/ul 05/06/2016 Cbc With Differential [...] 46.3 % 04/29/2016 Cbc With Differential Ord2 Lymph% 35.8 % 04/29/2016 Cbc With Differential Ord2 MCV 88.9 fl 04/29/2016 Cbc With Differential Ord2 [place]% 13.1 % 04/29/2016 Cbc With Differential Ord2 [...] 1.42 K/ul 04/29/2016 Cbc With Differential Ord2 [place] ABS# 0.5 K/ul 04/29/2016 Cbc With Differential Ord2 Eos ABS# 0.2 K/ul 04/29/2016 Cbc With Differential Ord2 Baso ABS# 0.0 K/ul 04/29/2016 Comp Metabolic Orx323 NA 141 mEq/L 04/29/2016 Comp Metabolic Qau401 K 4.0 mEq/L 04/29/2016 Comp Metabolic Fsm461 CL 108 mEq/L 04/29/2016 Comp Metabolic Nua201 CO2 27.0 mEq/L 04/29/2016 Comp Metabolic Idv998 AN ION GAP 10 04/29/2016 Comp Metabolic Ffq428 GL UCOSE 69 mg/dL 04/29/2016 Comp Metabolic Uve475 Cr eat 0.5 mg/dL 04/29/2016 Comp Metabolic Cka677 eG FR 122 ml/min/1.73m2 04/10 Comp Metabolic Scb042 BUN 19 mg/dL 04/29/2016 Comp Metabolic Irv527 B/ C Ratio 36.5 Ratio 04/29/2016 Comp Metabolic Zgp551 CA LCIUM 9.1 mg/dL 04/29/2016 Comp Metabolic Akd107 AL K PHOS 31 U/L 04/29/2016 Comp Metabolic Kys072 T(SGOT) 20 U/L 04/29/2016 Comp Metabolic Zfe150 AL T(SGPT) 22 U/L 04/29/2016 Comp Metabolic Ohl731 BI LI T 0.6 mg/dL 04/29/2016 Comp Metabolic Kre833 AL BUMIN 3.8 g/dL 04/29/2016 Comp Metabolic Ahu444 TP RO 5.9 g/dL 04/29/2016 Comp Metabolic Cuc447 GL OB 2.1 g/dL 04/29/2016 Comp Metabolic Zml543 A/ G Ratio 1.8 Ratio 04/29/2016 Comp Metabolic Ifp623 Os mo 282 mOsmo 04/29/2016 Progesterone Mwr307 Prog 5.99 ng/mL 04/29/2016 Urinalysis Ord28 U-Color [...] Urinalysis Ord28 U-Yeast NEGATIVE 04/25/2016 Comp Metabolic Zwv002 NA 138 mEq/L 04/25/2016 Comp Metabolic Smg327 K 3.6 mEq/L 04/25/2016 Comp Metabolic Atk402 CL 105 mEq/L 04/25/2016 Comp Metabolic Bfp499 CO2 27.0 mEq/L 04/25/2016 Comp Metabolic Zsx831 AN ION GAP 10 04/25/2016 Comp Metabolic Bfx817 GL UCOSE 190 mg/dL 04/25/2016 Comp Metabolic Ooy619 Cr eat 0.5 mg/dL 04/25/2016 Comp Metabolic Ynm859 eG FR 128 ml/min/1.73m2 04/09 Comp Metabolic Cwg514 BUN 17 mg/dL 04/25/2016 Comp Metabolic Zio655 B/ C Ratio 34.0 Ratio 04/25/2016 Comp Metabolic Smx681 CA LCIUM 8.7 mg/dL 04/25/2016 Comp Metabolic Blv285 AL K PHOS 32 U/L 04/25/2016 Comp Metabolic Qxa628 T(SGOT) 23 U/L 04/25/2016 Comp Metabolic Byt976 AL T(SGPT) 22 U/L 04/25/2016 Comp Metabolic Oso050 BI LI T 0.5 mg/dL 04/25/2016 Comp Metabolic Mvz049 AL BUMIN 3.6 g/dL 04/25/2016 Comp Metabolic Hok913 TP RO 5.5 g/dL 04/25/2016 Comp Metabolic Wiw293 GL OB 1.9 g/dL 04/25/2016 Comp Metabolic Oyc767 A/ G Ratio 1.9 Ratio 04/25/2016 Comp Metabolic Vit445 Os mo 282 mOsmo 04/25/2016 Cbc With [...] 29.6 pg 04/25/2016 Cbc With Differential Ord2 [place]% 13.0 % 04/25/2016 Cbc With Differential Ord2 [...] 1.01 K/ul 04/25/2016 Cbc With Differential Ord2 [place] ABS# 0.4 K/ul 04/25/2016 Cbc With Differential [...] 26.2 % 04/04/2016 Cbc With Differential Ord2 [place]% 16.1 % 04/04/2016 Cbc With Differential Ord2 [...] 1.32 K/ul 04/04/2016 Cbc With Differential Ord2 [place] ABS# 0.8 K/ul 04/04/2016 Cbc With Differential Ord2 [place] ABS# 0.2 K/ul 04/04/2016 Cbc With Differential Ord2 Baso ABS# 0.0 K/ul 04/04/2016 Comp Metabolic Kbt792 NA 140 mEq/L 04/04/2016 Comp Metabolic Vpq036 K 4.1 mEq/L 04/04/2016 Comp Metabolic Lnr746 CL 106 mEq/L 04/04/2016 Comp Metabolic Ujr645 CO2 27.0 mEq/L 04/04/2016 Comp Metabolic Tpp885 AN ION GAP 11 04/04/2016 Comp Metabolic Rbz721 GL UCOSE 71 mg/dL 04/04/2016 Comp Metabolic Cbn624 Cr eat 0.5 mg/dL 04/04/2016 Comp Metabolic Iko334 eG FR 131 ml/min/1.73m2 03/10 Comp Metabolic Glu655 BUN 14 mg/dL 04/04/2016 Comp Metabolic Her754 B/ C Ratio 28.6 Ratio 04/04/2016 Comp Metabolic Ccy769 CA LCIUM 9.1 mg/dL 04/04/2016 Comp Metabolic Wav876 AL K PHOS 42 U/L 04/04/2016 Comp Metabolic Nwf050 T(SGOT) 18 U/L 04/04/2016 Comp Metabolic Htf968 AL T(SGPT) 17 U/L 04/04/2016 Comp Metabolic Tqp600 BI LI T 0.4 mg/dL 04/04/2016 Comp Metabolic Dbc533 AL BUMIN 3.8 g/dL 04/04/2016 Comp Metabolic Leg876 TP RO 6.0 g/dL 04/04/2016 Comp Metabolic Yvp561 GL OB 2.2 g/dL 04/04/2016 Comp Metabolic Eqk589 A/ G Ratio 1.7 Ratio 04/04/2016 Comp Metabolic Dgu399 Os mo 278 mOsmo 04/04/2016 Urinalysis Ord28 [...] 33.2 % 03/28/2016 Cbc With Differential Ord2 [place]% 11.7 % 03/28/2016 Cbc With Differential Ord2 [...] 1.14 K/ul 03/28/2016 Cbc With Differential Ord2 [place] ABS# 0.4 K/ul 03/28/2016 Cbc With Differential Ord2 [place] ABS# 0.1 K/ul 03/28/2016 Cbc With Differential Ord2 Baso ABS# 0.0 K/ul 03/28/2016 Cbc With Differential Ord2 New Analyzer Notice Please note new ref ranges s tarting 11-21-2015 due to implemntation of new five part differential hematolgy analyzer. 03/28/2016 Comp Metabolic Urk000 NA 137 mEq/L 03/28/2016 Comp Metabolic Lzp069 K 3.5 mEq/L 03/28/2016 Comp Metabolic Xyi946 CL 105 mEq/L 03/28/2016 Comp Metabolic Nza552 CO2 27.0 mEq/L 03/28/2016 Comp Metabolic Btk490 AN ION GAP 9 03/28/2016 Comp Metabolic Wmg897 GL UCOSE 174 mg/dL 03/28/2016 Comp Metabolic Mlg085 Cr eat 0.5 mg/dL 03/28/2016 Comp Metabolic Nnn679 eG FR 131 ml/min/1.73m2 03/10 Comp Metabolic Gsx975 BUN 13 mg/dL 03/28/2016 Comp Metabolic Bcj896 B/ C Ratio 26.5 Ratio 03/28/2016 Comp Metabolic Ujt202 CA LCIUM 8.7 mg/dL 03/28/2016 Comp Metabolic Czl075 AL K PHOS 31 U/L 03/28/2016 Comp Metabolic Hsk827 T(SGOT) 20 U/L 03/28/2016 Comp Metabolic Ebj640 AL T(SGPT) 19 U/L 03/28/2016 Comp Metabolic Xau370 BI LI T 0.4 mg/dL 03/28/2016 Comp Metabolic Abl866 AL BUMIN 3.5 g/dL 03/28/2016 Comp Metabolic Hmy723 TP RO 5.3 g/dL 03/28/2016 Comp Metabolic Xdm469 GL OB 1.8 g/dL 03/28/2016 Comp Metabolic Xnq152 A/ G Ratio 2.0 Ratio 03/28/2016 Comp Metabolic Kfu113 Os mo 278 mOsmo 03/28/2016 Urinalysis Ord28 [...] Ord28 U-Yeast NEGATIVE 03/28/2016 Testosterone Free Direct 917307 FREE TESTOSTERONE <0.2 pg/mL 03/13/2016 Estradiol 609502 ESTRADI OL <5.0 pg/mL 03/12/2016 Progesterone Urv174 Prog 0.56 ng/mL 03/10/2016 Homocyst(E)Ine Plasma 300589 HOMOCYSTEINE, TOTAL 10.9 umol/L 01/18/2016 Mthfr 802121 MTHFR C677T: HETEROZYGOUS MUTATION DETECTED 02/2016 Mthfr 556845 MTHFR A1298 C: HETEROZYGOUS MUTATION DETECTED 01/11/2016 Mthfr 593352 INTERPRETAT ION: 01/11/2016 Iodine Serum 719112 IOD INE, SERUM 131.0 ug/L 01/10/2016 Tsh Ord6 hTSH II 2.11 uIU/mL 01/07/2016 Comp Metabolic Scc789 NA 139 mEq/L 01/07/2016 Comp Metabolic Nbr639 K 4.0 mEq/L 01/07/2016 Comp Metabolic Ctp537 CL 104 mEq/L 01/07/2016 Comp Metabolic Bzo254 CO2 26.0 mEq/L 01/07/2016 Comp Metabolic Zlv364 AN ION GAP 13 01/07/2016 Comp Metabolic Itq252 GL UCOSE 86 mg/dL 01/07/2016 Comp Metabolic Dvs095 Cr eat 0.6 mg/dL 01/07/2016 Comp Metabolic Dce344 eG FR 100 ml/min/1.73m2 12/11 Comp Metabolic Pxt272 BUN 18 mg/dL 01/07/2016 Comp Metabolic Avx071 B/ C Ratio 29.0 Ratio 01/07/2016 Comp Metabolic Tca146 CA LCIUM 9.4 mg/dL 01/07/2016 Comp Metabolic Kch232 AL K PHOS 40 U/L 01/07/2016 Comp Metabolic Fvi905 T(SGOT) 20 U/L 01/07/2016 Comp Metabolic Lty151 AL T(SGPT) 24 U/L 01/07/2016 Comp Metabolic Bka934 BI LI T 0.6 mg/dL 01/07/2016 Comp Metabolic Gbi496 AL BUMIN 4.1 g/dL 01/07/2016 Comp Metabolic Nhp537 TP RO 6.4 g/dL 01/07/2016 Comp Metabolic Uxw831 GL OB 2.3 g/dL 01/07/2016 Comp Metabolic Okx100 A/ G Ratio 1.8 Ratio 01/07/2016 Comp Metabolic Gvj711 Os mo 279 mOsmo 01/07/2016 Lipid Ord30 [...] 11/26/2015 Urinalysis Ord28 U-Yeast NEGATIVE 11/26/2015 Progesterone Vrg427 Prog >40.00 ng/mL 11/26/2015 Testosterone Free Direct 014659 FREE TESTOSTERONE 0.6 pg/mL 10/01/2015 Estradiol 036115 ESTRADI OL <5.0 pg/mL 09/26/2015 Urinalysis Ord28 [...] Urinalysis Ord28 U-Yeast NEGATIVE 09/25/2015 Comp Metabolic Ikg686 NA 142 mEq/L 09/25/2015 Comp Metabolic Jic406 K 4.3 mEq/L 09/25/2015 Comp Metabolic Fge915 CL 110 mEq/L 09/25/2015 Comp Metabolic Gvy960 CO2 23.0 mEq/L 09/25/2015 Comp Metabolic Vtq964 AN ION GAP 13 09/25/2015 Comp Metabolic Lte975 GL UCOSE 76 mg/dL 09/25/2015 Comp Metabolic Mbb584 Cr eat 0.8 mg/dL 09/25/2015 Comp Metabolic Oet139 eG FR 79 ml/min/1.73m2 09/25 Comp Metabolic Maa970 BUN 17 mg/dL 09/25/2015 Comp Metabolic Btc560 B/ C Ratio 22.4 Ratio 09/25/2015 Comp Metabolic Duh337 CA LCIUM 9.4 mg/dL 09/25/2015 Comp Metabolic Jei734 AL K PHOS 45 U/L 09/25/2015 Comp Metabolic Uhu641 T(SGOT) 20 U/L 09/25/2015 Comp Metabolic Uov068 AL T(SGPT) 18 U/L 09/25/2015 Comp Metabolic Deg016 BI LI T 0.5 mg/dL 09/25/2015 Comp Metabolic Qug676 AL BUMIN 4.0 g/dL 09/25/2015 Comp Metabolic Plg743 TP RO 6.2 g/dL 09/25/2015 Comp Metabolic Hag184 GL OB 2.2 g/dL 09/25/2015 Comp Metabolic Ioh144 A/ G Ratio 1.8 Ratio 09/25/2015 Comp Metabolic Fca432 Os mo 283 mOsmo 09/25/2015 Tsh Ord6 hTSH II 4.05 uIU/mL 09/25/2015 Progesterone Mcd336 Prog 21.38 ng/mL 09/25/2015 Free T4 Ush664 FREE T4 0.78 ng/dL 09/25/2015 Cbc With [...] RDW 14.3 % 09/25/2015 Testosterone Free Direct 499068 FREE TESTOSTERONE 1.2 pg/mL 08/31/2015 Estradiol 231378 ESTRADI OL <5.0 pg/mL 08/29/2015 Progesterone Tkk690 Prog 4.37 ng/mL 08/28/2015 Fungal Screen I 771808 * *ASPERGILLUS AB BY ID . 07/23/2015 Fungal Screen I 668310 A SPERGILLUS AB BY ID None Detected 015 Fungal Screen I 786132 * *BLASTOMYCES ANTIBODY BY CF & ID . 07/23/2015 Fungal Screen I 598872 B LASTOMYCES AB,CF <1:8 07/23/2015 Fungal Screen I 220947 B LASTOMYCES AB,ID None Detected 015 Fungal Screen I 875285 * *MAXINE ANTIBODY BY ID . 07/23/2015 Fungal Screen I 575906 C ANDIDA AB BY ID Detected 07/23/2015 Fungal Screen I 214416 * *COCCIDIOIDES ANTIBODIES, IGG & IGM . 07/23/2015 Fungal Screen I 041989 C OCCIDIOIDES AB IGM 0.3 IV 07/23/2015 Fungal Screen I 905116 C OCCIDIOIDES AB IGG 0.4 IV 07/23/2015 Fungal Screen I 565941 * *HISTOPLASMA ANTIBODY BY ID . 07/23/2015 Fungal Screen I 856872 H ISTOPLASMA ABS (ID) None Detected 015 Francisella Tularensis Abs 982316 F. TULARENSIS, IGG 0 U/mL 07/17/2015 Francisella Tularensis Abs 719321 F. TULARENSIS, IGM 0 U/mL 07/17/2015 Vitamin D 25 Oh Shk1606 VITAMIN D, 25 HYDROXY 142.21 ng/mL 07/13/2015 Antistrptolysin-O Qualitative Izw337 ASO Negative 07/12/2015 B12 Peh479 B12 956.00 pg/ml 07/12/2015 Cbc With Differential [...] Ord2 RDW 15.1 % 07/10/2015 Free T4 Wdl622 FREE T4 0.79 ng/dL 06/12/2015 Urinalysis Ord28 [...] Ord2 RDW 16.0 % 06/04/2015 Comp Metabolic Pje601 NA 139 mEq/L 06/04/2015 Comp Metabolic Iij229 K 3.9 mEq/L 06/04/2015 Comp Metabolic Lii647 CL 108 mEq/L 06/04/2015 Comp Metabolic Hdp894 CO2 26.0 mEq/L 06/04/2015 Comp Metabolic Wtj037 AN ION GAP 9 06/04/2015 Comp Metabolic Sie294 GL UCOSE 74 mg/dL 06/04/2015 Comp Metabolic Sem173 Cr eat 0.6 mg/dL 06/04/2015 Comp Metabolic Imv881 eG FR 102 ml/min/1.73m2 05/10 Comp Metabolic Wqa600 BUN 18 mg/dL 06/04/2015 Comp Metabolic Jsf532 B/ C Ratio 29.5 Ratio 06/04/2015 Comp Metabolic Xvb453 CA LCIUM 9.0 mg/dL 06/04/2015 Comp Metabolic Zjk573 AL K PHOS 44 U/L 06/04/2015 Comp Metabolic Ayx602 T(SGOT) 22 U/L 06/04/2015 Comp Metabolic Srv712 AL T(SGPT) 23 U/L 06/04/2015 Comp Metabolic Xuq883 BI LI T 0.4 mg/dL 06/04/2015 Comp Metabolic Lwn410 AL BUMIN 4.0 g/dL 06/04/2015 Comp Metabolic Ibp074 TP RO 5.8 g/dL 06/04/2015 Comp Metabolic Fxy085 GL OB 1.8 g/dL 06/04/2015 Comp Metabolic Xph822 A/ G Ratio 2.2 Ratio 06/04/2015 Comp Metabolic Wnj570 Os mo 278 mOsmo 06/04/2015 Tsh Ord6 hTSH II 5.17 uIU/mL 06/04/2015 Review of Systems System Result Effective Dates Genitourinary/Nephrology urinary urgency 09/15/2018 Genitourinary/Nephrology urinary inc [...] 4: G0439 03/11/2016 THER/PROPH/DIAG INJ SC/IM CPT-4: 99045 12/27/2015 Vital Signs Date Vital 09/15/2018 Blood Pressure 1: 130/70 Code: 8480-6 BMI: 20.6 Code: 94410-1 Heart Rate 1: 75 bpm Height: 5' SpO2: 99% Weight: 105 lbs 8 oz 09/10/2018 Blood Pressure 1: 126/68 Code: 8480-6 BMI: 20.7 Code: 06034-9 Heart Rate 1: 63 bpm Height: 5' SpO2: 96% Waist Measure (cm): 66 cm Weight: 106 lbs 06/01/2018 Blood Pressure 1: 156/76 Code: 8480-6 BMI: 20.1 Code: 49642-3 Heart Rate 1: 68 bpm Height: 5' SpO2: 99% Weight: 103 lbs 05/24/2018 Blood Pressure 1: 120/60 Code: 8480-6 BMI: 20.5 Code: 94259-9 Heart Rate 1: 82 bpm Height: 5' SpO2: 98% Weight: 105 lbs 05/19/2018 Blood Pressure 1: 140/72 Code: 8480-6 BMI: 20.5 Code: 98718-3 Heart Rate 1: 96 bpm Height: 5' SpO2: 98% Weight: 105 lbs 01/12/2018 Blood Pressure 1: 146/78 Code: 8480-6 BMI: 21.1 Code: 55193-4 Heart Rate 1: 85 bpm Height: 5' SpO2: 95% Weight: 108 lbs 10/12/2017 Blood Pressure 1: 138/72 Code: 8480-6 BMI: 21.1 Code: 10253-1 Heart Rate 1: 96 bpm Height: 5' SpO2: 98% Weight: 108 lbs 08/06/2017 Blood Pressure 1: 130/78 Code: 8480-6 BMI: 20.5 Code: 56723-0 Heart Rate 1: 89 bpm Height: 5' SpO2: 98% Weight: 105 lbs 05/13/2017 Blood Pressure 1: 122/70 Code: 8480-6 BMI: 20.5 Code: 29534-9 Heart Rate 1: 80 bpm Height: 5' SpO2: 97% Weight: 105 lbs 03/19/2017 Blood Pressure 1: 138/80 Code: 8480-6 BMI: 20.5 Code: 66947-1 Heart Rate 1: 83 bpm Height: 5' SpO2: 97% Waist Measure (cm): 74 cm Weight: 105 lbs 03/18/2017 Blood Pressure 1: 138/80 Code: 8480-6 BMI: 20.5 Code: 01268-2 Heart Rate 1: 83 bpm Height: 5' SpO2: 97% Weight: 105 lbs 01/27/2017 Blood Pressure 1: 142/68 Code: 8480-6 BMI: 20.5 Code: 21268-7 Heart Rate 1: 69 bpm Height: 5' SpO2: 97% Weight: 105 lbs 12/29/2016 Blood Pressure 1: 154/82 Code: 8480-6 BMI: 20.1 Code: 01452-3 Heart Rate 1: 76 bpm Height: 5' SpO2: 94% Temperature: 37.4 (C ) / 99.4 (F) Weight: 103 lbs 11/19/2016 Blood Pressure 1: 134/74 Code: 8480-6 BMI: 19.7 Code: 73771-4 Heart Rate 1: 64 bpm Height: 5' Weight: 101 lbs 08/13/2016 Blood Pressure 1: 118/56 Code: 8480-6 BMI: 19.5 Code: 39868-1 Heart Rate 1: 64 bpm Height: 5' SpO2: 97% Weight: 100 lbs 07/03/2016 Blood Pressure 1: 120/68 Code: 8480-6 BMI: 19.1 Code: 53551-7 Heart Rate 1: 80 bpm Height: 5' SpO2: 98% Weight: 98 lbs 05/07/2016 Blood Pressure 1: 116/58 Code: 8480-6 BMI: 19.1 Code: 74996-6 Heart Rate 1: 79 bpm Height: 5' SpO2: 98% Weight: 98 lbs 04/08/2016 Blood Pressure 1: 118/58 Code: 8480-6 BMI: 19.0 Code: 23768-3 Heart Rate 1: 78 bpm Height: 5' SpO2: 98% Weight: 97 lbs 8 oz 03/11/2016 Blood Pressure 1: 102/60 Code: 8480-6 BMI: 19.7 Code: 54405-2 Heart Rate 1: 75 bpm Height: 5' SpO2: 94% Waist Measure (cm): 71 cm Weight: 101 lbs 12/27/2015 Blood Pressure 1: 128/72 Code: 8480-6 BMI: 20.2 Code: 75610-9 Heart Rate 1: 95 bpm Height: 5' SpO2: 98% Weight: 103 lbs 8 oz 09/24/2015 Blood Pressure 1: 136/70 Code: 8480-6 BMI: 19.1 Code: 62521-2 Heart Rate 1: 72 bpm Height: 5' SpO2: 97% Weight: 98 lbs 06/26/2015 Blood Pressure 1: 144/64 Code: 8480-6 BMI: 18.9 Code: 37412-1 Heart Rate 1: 77 bpm Height: 5' SpO2: 98% Weight: 97 lbs 04/10/2015 Blood Pressure 1: 132/88 Code: 8480-6 BMI: 18.9 Code: 42183-8 Heart Rate 1: 83 bpm Height: 5' SpO2: 97% Weight: 97 lbs Functional Status No Functional Status data History of Present Illness Symptom Name Status Resu lt Effective Date Notes hypertension Quality tari delio hypertension 09/15/2018 None hypertension Onset and Resolution ongoing 09/15/2018 None hypertension Onset of Symptom during adulthood 09/15/2018 None hypertension Alleviating Factors medication 09/15/2018 None hypothyroid Quality community leader deisy 09/15/2018 None hypothyroid Onset and Resolution [...] Alleviating Factors medication 05/19/2018 None hypothyroid Quality community leader deisy 05/19/2018 None hypertension Quality tari kebede [...] Encounters Encounter Performer Loca tion Codes Date ([id number]) 30002 EST. P ATIENT, LEVEL IV Diagnosis: Essential (primary) hypertension[ICD10: I10] Diagnosis: Atrophy of thyroid (acquired)[ICD10: E03.4] Diagnosis: Low back pain[ICD10: M54.5] Diagnosis: Other specified noninflammatory disorders of vagina[ICD10: N89.8] Kailee Moreira MD, [facility] CPT-4: 17807 09/15/2018 ([id number]) 84218 EST. P ATIENT, LEVEL III Diagnosis: Dizziness and giddiness[ICD10: R42] Diagnosis: Allergic contact dermatitis due to plants, except food[ICD10: L23.7] Marixa Moreira MD, [facility] CPT-4: 48479 06/01/2018 ([id number]) 94204 EST. P ATIENT, LEVEL III Diagnosis: Allergic contact dermatitis due to plants, except food[ICD10: L23.7] Marixa Moreira MD, [facility] CPT-4: 72343 05/24/2018 ([id number]) 30058 EST. P ATIENT, LEVEL IV Diagnosis: Essential (primary) hypertension[ICD10: I10] Diagnosis: Atrophy of thyroid (acquired)[ICD10: E03.4] Diagnosis: Obstructive sleep apnea (adult) (pediatric)[ICD10: G47.33] Kailee Moreira MD, C CPT-4: 19545 05/19/2018 ([id number]) 64457 EST. P ATIENT, LEVEL IV Diagnosis: Essential (primary) hypertension[ICD10: I10] Diagnosis: Atrophy of thyroid (acquired)[ICD10: E03.4] Diagnosis: Low back pain[ICD10: M54.5] Kailee Moreira MD, [facility] CPT-4: 60099 01/12/2018 ([id number]) 97053 EST. P ATIENT, LEVEL III Diagnosis: Headache[ICD10: R51] Kailee Moreira MD, [facility] CPT-4: 44409 10/12/2017 ([id number]) 50117 EST. P ATIENT, LEVEL IV Diagnosis: Atrophy of thyroid (acquired)[ICD10: E03.4] Diagnosis: Essential (primary) hypertension[ICD10: I10] Diagnosis: Obstructive sleep apnea (adult) (pediatric)[ICD10: G47.33] Kailee Moreira MD, C CPT-4: 88935 08/06/2017 ([id number]) 74674 EST. 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 P ATIENT, LEVEL IV Diagnosis: Atrophy of thyroid (acquired)[ICD10: E03.4] Diagnosis: Essential (primary) hypertension[ICD10: I10] Diagnosis: Encounter for screening for other musculoskeletal disorder[ICD10: Z13.828] Diagnosis: Low back pain[ICD10: M54.5] Diagnosis: Transient alteration of awareness[ICD10: R40.4] Kailee Moreira MD, C CPT-4: 67409 03/18/2017 ([id number]) 06183 EST. P ATIENT, LEVEL IV Diagnosis: Atrophy of thyroid (acquired)[ICD10: E03.4] Diagnosis: Essential (primary) hypertension[ICD10: I10] Diagnosis: Low back pain[ICD10: M54.5] Kailee Moreira MD, [facility] CPT-4: 14993 01/27/2017 ([id number]) 23546 EST. P ATIENT, LEVEL III Diagnosis: Acute recurrent maxillary sinusitis[ICD10: J01.01] Marixa Moreira MD, [facility] CPT-4: 77136 12/29/2016 ([id number]) 98019 EST. P ATIENT, LEVEL IV Diagnosis: Atrophy of thyroid (acquired)[ICD10: E03.4] Diagnosis: Essential (primary) hypertension[ICD10: I10] Kailee Moreira MD, C CPT-4: 89154 11/19/2016 ([id number]) 36530 EST. P ATIENT, LEVEL IV Diagnosis: Atrophy of thyroid (acquired)[ICD10: E03.4] Diagnosis: Enterocolitis due to Clostridium difficile[ICD10: A04.7] Diagnosis: Essential (primary) hypertension[ICD10: I10] Kailee Moreira MD, C CPT-4: 36887 08/13/2016 ([id number]) 01119 EST. P ATIENT, LEVEL IV Diagnosis: Essential (primary) hypertension[ICD10: I10] Diagnosis: Enterocolitis due to Clostridium difficile[ICD10: A04.7] Diagnosis: Hypothyroidism, unspecified[ICD10: E03.9] Diagnosis: Low back pain[ICD10: M54.5] Kailee Moreira MD, [facility] CPT-4: 17817 07/03/2016 ([id number]) 52575 EST. P ATIENT, LEVEL IV Diagnosis: Enterocolitis due to Clostridium difficile[ICD10: A04.7] Diagnosis: Lyme disease, unspecified[ICD10: A69.20] Kailee Moreira MD, [facility] CPT-4: 57466 05/07/2016 ([id number]) 52097 EST. P ATIENT, LEVEL IV Diagnosis: Generalized abdominal rigidity[ICD10: R19.37] Diagnosis: Diarrhea, unspecified[ICD10: R19.7] Diagnosis: Lyme disease, unspecified[ICD10: A69.20] Kailee Moreira MD, [facility] CPT-4: 78547 04/08/2016 ([id number]) 70748 EST. P ATIENT, LEVEL IV Diagnosis: Hypothyroidism, unspecified[ICD10: E03.9] Diagnosis: Lyme disease, unspecified[ICD10: A69.20] Diagnosis: Tachycardia, unspecified[ICD10: R00.0] Kailee Moreira MD, [facility] CPT-4: 36252 12/27/2015 ([id number]) 07085 EST. P ATIENT, LEVEL III Diagnosis: Essential (primary) hypertension[ICD10: I10] Diagnosis: Benign lipomatous neoplasm of skin and subcutaneous tissue of other sites[ICD10: D17.39] Diagnosis: Low back pain[ICD10: M54.5] Kailee Moreira MD, [facility] CPT-4: 82880 09/24/2015 ([id number]) 43632 EST. 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 09/15/2018 Appointment: Kailee Moreira WPtel: [facility] 30 min appointments only in this slot [...] care surrogate. 09/10/2018 Appointment: Kiersten Armando WPtel: [address] [place] [address] - Annual Wellness Visit 09/10/2018 Patient Education: Patient Medication Summary Completed 09/10/2018 Appointment: Injection 06/14/2018 Visit Plan: Contact dermatitis-disc ussed with Dr Moreira -rx for dexamethasone sent to patient's pharmacy and instructed on use-will also send rx for topical betamethsone -instructed patient to call if symptoms do not resolve or if any worse Dufvjprjc-QHZ-xgloooik fluids-monitor blood pressure- call if dizziness does not resolve or if any worse-patient and verbalized understanding 06/01/2018 Appointment: Marixa Lakhani WPtel: [facility] [address] (15 min) Moderate 06/01/2018 Patient Education: Patient Medication Summary Completed 06/01/2018 Visit Plan: Contact dermatitis due to poison magalys/oak-kenalog injection today- pt is to use topical treatments as directed. Pt is cleanse clothing in hot water with soap, and call if symptoms do not improve or if they worsen. 05/24/2018 Appointment: Marixa Lakhani WPtel: [address] [place], [place] [phone] (15 min) Moderate 05/24/2018 Patient Education: Patient [...] awakening. 05/19/2018 Appointment: Kailee Moreira WPtel: [phone] [facility] (30 min) Complex 05/19/2018 Patient Education: Patient Medication Summary Completed 05/19/2018 Visit Plan: Hypertension - well con trodalied [...] bilaterally 01/12/2018 Appointment: Kailee Moreira WPtel: [phone] [facility] (15 min) Moderate 01/12/2018 Patient Education: Patient Medication Summary Completed 01/12/2018 Appointment: Kailee Moreira WPtel: [phone] [facility] (15 min) Moderate 12/02/2017 Visit Plan: Headache - recommended patient to use PRN Fioricet for headaches - call if not improving. 10/12/2017 Appointment: Kailee Moreira WPtel: [facility] (15 min) Moderate 10/12/2017 Patient Education: Patient [...] apnea - order humidification for cpap - [place] home patient/[facility]- find out if they need [...] at home. 08/06/2017 Appointment: Kailee Moreira WPtel: [facility] (15 min) Moderate 08/06/2017 Patient Education: Patient Medication Summary Completed 08/06/2017 Care Plan: Comp Metabolic Pending 08/06/2017 Care Plan: Tsh Pending 08/06/2017 Care Plan: Free T4 Pending 08/06/2017 Care Plan: Lipid Pending 08/06/2017 Care Plan: Cbc With Differential Pending 08/06/2017 Appointment: Kailee Moreira WPtel: [address] [place], [place] [phone] (15 min) Moderate 07/21/2017 Visit Plan: Hypothyroidism [...] stop lisinopril. 05/13/2017 Appointment: Kailee Moreira WPtel: [facility]4 [facility] (15 min) Moderate 05/13/2017 Patient Education: Patient Medication Summary Completed 05/13/2017 Patient Education: Hypertension Completed 05/13/2017 Appointment: Kailee Moreira WPtel: [facility]9 [facility] (15 min) Moderate 05/06/2017 Visit Plan: Medicare [...] care surrogate. 03/19/2017 Appointment: Kiersten Armando WPtel: [facility]5 [facility] [facility] - Annual Wellness Visit 03/19/2017 Patient [...] levels of control. p hysical therapy at [facility] - water therapy for back eeg - needs ordered at hospital. 03/18/2017 Appointment: Kailee Moreira WPtel: [facility] (15 min) Moderate 03/18/2017 Patient Education: Patient [...] improve. 01/27/2017 Appointment: Kailee Moreira WPtel: [phone] [facility] (15 min) Moderate 01/27/2017 Patient Education: Patient Medication Summary Completed 01/27/2017 Patient Education: Hypertension Completed 01/27/2017 Visit Plan: Sinusitis - Pt has acut e infection - pain in face, maxillary region, Pt informed to use decongestant, RX given to patient, sinus rinses also recommended. Call if symptoms do not show improvement. 12/29/2016 Appointment: [facility]ix[facility] Lakhani [facility]el[phone] [place] (30 min) Complex 12/29/2016 [...] control. 11/19/2016 Appointment: Kailee Moreira WPtel: [phone] [facility] (15 min) Moderate 11/19/2016 Patient Education: Patient [...] have improved. 08/13/2016 Appointment: Kailee Moreira WPtel: [facility]5 [facility] (15 min) Moderate 08/13/2016 Patient Education: Patient Medication Summary Completed 08/13/2016 Patient Education: Hypertension Completed 08/13/2016 Appointment: Kailee Moreira WPtel: [facility]5 [facility] (30 min) Complex 07/31/2016 Visit Plan: Hypertension [...] of control. 07/03/2016 Appointment: Kailee Moreira WPtel: [facility]0 [facility] (15 min) Moderate 07/03/2016 Patient Education: Patient Medication Summary Completed 07/03/2016 Patient Education: Hypertension Completed 07/03/2016 Visit Plan: Cdiff colitis - pt to [facility] repeat testing - if positive will have to repeat treatment. Continue with probiotic. Lymes disease - continue with treatment per Dr. Carrillo. alex sample x 18 days given to patient. 05/07/2016 Appointment: Kailee Moreira WPtel: [facility]0 [facility] (15 min) Moderate [...] diarrhea. 04/08/2016 Appointment: Kailee Moreira WPtel: [phone] [facility] [place] (15 min) Moderate 04/08/2016 Patient Education: Patient Medication Summary Completed 04/08/2016 Appointment: Kailee Moreira WPtel: [phone] [facility] (15 min) Moderate 04/03/2016 Visit Plan: Medicare [...] Summary Completed 03/11/2016 Appointment: Kailee Moreira WPtel: [facility]5 [facility] (15 min) Moderate 01/24/2016 Visit Plan: Tachycardia [...] of control. 12/27/2015 Appointment: Kailee Moreira WPtel: [facility]3 [facility] (15 min) Moderate 12/27/2015 Patient Education: Patient [...] not improve. 06/26/2015 Appointment: Kailee Moreira WPtel: [address] [place], [place] [id number] (15 min) Moderate 06/26/2015 Patient Education: Patient [...] spine Lymes disease-sees Dr Carrillo-julios specialist in [place], [place] CAD-HX [id number] by Dr Hyde 04/10/2015 Appointment: (S) New Patient 04/10/2015 Patient Education: Patient Medication Summary Completed 04/10/2015 Patient Education: Hypertension Completed 04/10/2015 Instructions Comment . Cdiff colitis - pt to have [...] previous levels of control. physical therapy at [facility] - water therapy for back eeg - needs ordered at hospital. . Contact dermatitis due to poison magalys/oak-kenalog [...] DOPA paperwork for health care surrogate. . Hypothyroidism - p t with chronic [...] spine Lymes disease-sees Dr Carrillo-julios specialist in [place], [place] CAD-HX [id number] by Dr Hyde . Hypothyroidism - p [...] apnea - order humidification for cpap - [place] home patient/[facility]- find out if they need [...] do not resolve or if any worse Vbzxoxfxv-ZBH-xixiproh fluids-monitor blood pressure-call if dizziness does not [...] is worsening or does not improve. . Headache - recomme nded patient to [...] if symptoms do not show improvement. . Tachycardia - I mckenna ve attempted [...]
--- OUTSIDE RECORDS SUMMARY | 2020-05-05 12:14 | XMS REPORT | CCD ---
Author Author Emily Lakhani Organization [facility] Address [address] [place] [address] Phone Care Team Providers Care Channel Rougher Name Role Phone PP Unavailable CCM Unavailable Summary Purpose Interface Exchange Insurance Providers Payer name Policy type / Coverage type Covered green party ID Effective Begin Date Effective End Date WPS Medicare Part B Medicare Part B [id number] 2018 Unknown [employer] Medicare Part B [id number] Unknown Family history Mother Diagnosis Age At [...] Retir ed 04/10/[address]: 075814945 Never smoker 04/10/[address]: 961080231 Never drinks alcohol 04/10/2015 Allergies, Adverse Reactions, [...] tions Start Date Stop Date Fill Instructions [place] Thyroid 60 mg tablet RxNorm: 381127 1 Tablet(s) PO 3 x we jenise Dominguez 11/17/2018 11/11/2019 Ac tive hold until she is ready to refill [place] Thyroid 30 mg tablet RxNorm: 444658 1 Tablet(s) PO 4 time s a week Thu SAT 11/17/2018 02/09/2020 Active Please fill now- she will use her curren t supply of 60mg until she needs refill [place] Thyroid 30 mg tablet RxNorm: 645205 1 Tablet(s) PO 4 time s a week Thu SAT 11/17/2018 11/16/2018 Inactive Please fill now- she will use her curren t supply of 60mg until she needs refill Flagyl 500 mg tablet RxNorm: 928880 1 Tablet(s) PO TID 2018 10/17/2018 Inactive Flagyl 500 mg tablet RxNorm: 436279 1 Tablet(s) PO TID 10/06/2018 10/05/2018 Inactive Flagyl 500 mg tablet RxNorm: 255176 1 Tablet(s) PO TID 10/06/2018 10/10/2018 Inactive cefdinir 300 mg capsule RxNorm: 933786 1 Capsule(s) PO BID 09/29/2018 10/05/2018 Inactive cefdinir 300 mg capsule RxNorm: 347477 1 Capsule(s) PO BID 09/29/2018 09/28/2018 Inactive estradiol 0.01% (0.1 mg/gram) vaginal cream RxNorm: 655058 1 Gram(s) VAG BIW 09/15/2018 03/13/2019 Ac tive Imitrex 50 mg tablet RxNorm: 913299 TAKE WITH ONSET OF MIGRAINE- MAY TAKE AN ADDITIONAL DOSE IF NO RELIEF OF HEADACHE IN 1 HOUR- MAX OF 3 DOSES IN 24 HOURS Tablet(s) 06/14/2018 No Stop Date Active betamethasone gwendolyn te 0.1 % topical cream RxNorm: 685535 1 Application TOP TID 06/01/2018 06/10/2018 In active dexamethasone 4 mg t ablet RxNorm: 130555 1 Tablet(s) PO daily 06/01/2018 06/05/2018 Inactive Kenalog 40 mg/mL sadiq pension for injection RxNorm: 0385374 1.5 Milliliter(s) In j 05/24/2018 05/24/2018 In active amitriptyline 10 mg tablet RxNorm: 750487 1/2 TO 1 TABLET(S) PO QPM 01/21/2018 09/14/2018 Inactive [place] Thyroid 60 mg tablet RxNorm: 012619 1 Tablet(s) PO daily 01/12/2018 11/16/2018 Inactive carvedilol 3.125 mg tablet RxNorm: 338269 1 Tablet(s) PO BID 10/12/2017 No Stop Date Active Fiorinal-Codeine #3 30 mg-50 mg-325 mg-40 mg capsule RxNorm: 590357 1 Capsule(s) PO BID 10/12/2017 11/10/2017 Inactive progesterone microni zed 100 mg capsule RxNorm: 777330 1 Capsule(s) PO daily on days 1- 25 of each month 10/12/2017 01/11/2018 Inactive [place] Thyroid 90 mg tablet RxNorm: 764939 1/2 Tablet(s) PO melinda y 1/2 TABLET(S) PO DAILY 08/06/2017 01/11/2018 Inactive [place] Thyroid 90 mg tablet RxNorm: 607839 1/2 TABLET(S) PO DAILY 07/14/2017 08/05/2017 Inactive Keppra 500 mg tablet RxNorm: 993946 1 Tablet(s) PO BID 05/13/2017 08/05/2017 Inactive Deplin (algal oil) 1 5 mg-90.314 mg capsule RxNorm: TAKE ONE CAPSULE BY MOUTH O NE TIME DAILY 05/13/2017 01/11/2018 Inactive Keppra 250 mg tablet RxNorm: 256213 1 Tablet(s) PO daily 04/23/2017 04/22/2017 Inactive take 1 tab qd x 1 week then increase to BID Keppra 250 mg tablet RxNorm: 518587 1 Tablet(s) PO daily 04/23/2017 05/12/2017 Inactive take 1 tab qd x 1 week then increase to BID cyclobenzaprine 5 mg tablet RxNorm: 580787 1 Tablet(s) PO TID as needed 02/03/2017 02/22/2017 In active cyclobenzaprine 5 mg tablet RxNorm: 903682 1 Tablet(s) PO TID as needed 02/03/2017 02/02/2017 In active [place] Thyroid 90 mg tablet RxNorm: 769354 1/2 Tablet(s) PO daily 11/19/2016 03/18/2017 Inactive amitriptyline 10 mg tablet RxNorm: 683634 1/2 to 1 Tablet(s) PO QPM 11/19/2016 11/13/2017 Inactive fluconazole 50 mg ta blet RxNorm: 224607 1 Tablet(s) PO daily 08/20/2016 09/02/2016 Inactive [place] Thyroid 90 mg tablet RxNorm: 901936 1/2 Tablet(s) PO daily 08/11/2016 11/18/2016 Inactive Flagyl 500 mg tablet RxNorm: 863894 1 Tablet(s) PO TID 07/28/2016 01/11/2018 Inactive Flagyl 500 mg tablet RxNorm: 273305 1 Tablet(s) PO TID 07/17/2016 07/27/2016 Inactive amitriptyline 10 mg tablet RxNorm: 065648 1/2 to 1 Tablet(s) PO QPM 07/03/2016 10/30/2016 Inactive metronidazole 500 mg tablet RxNorm: 045773 1 Tablet(s) PO QID 07/03/2016 07/12/2016 Inactive amitriptyline 25 mg tablet RxNorm: 348962 1/2 -1 Tablet(s) PO Q HS as needed insomnia 06/26/2016 07/02/2016 Inactive vancomycin 125 mg ca psule RxNorm: 627113 1 Capsule(s) PO QID 06/20/2016 06/29/2016 Inactive [place] Thyroid 30 mg tablet RxNorm: 082370 1.5 Tablet(s) PO daily 06/20/2016 06/19/2016 Inactive [place] Thyroid 30 mg tablet RxNorm: 953671 1.5 Tablet(s) PO daily 06/20/2016 08/10/2016 Inactive fluconazole 50 mg ta blet RxNorm: 452290 1 Tablet(s) PO daily 06/16/2016 08/19/2016 Inactive amitriptyline 25 mg tablet RxNorm: 098093 1/2 -1 Tablet(s) PO Q HS as needed insomnia 06/12/2016 06/11/2016 Inactive amitriptyline 25 mg tablet RxNorm: 405784 1/2 -1 Tablet(s) PO Q HS as needed insomnia 06/12/2016 06/25/2016 Inactive vancomycin 125 mg ca psule RxNorm: 793305 1 Capsule(s) PO QID 06/12/2016 06/19/2016 Inactive fluconazole 50 mg ta blet RxNorm: 994670 1 Tablet(s) PO daily 06/12/2016 06/15/2016 Inactive Diflucan 150 mg tablet RxNorm: 029742 1 Tablet(s) PO daily 06/05/2016 06/09/2016 Inactive Deplin (algal oil) 1 5 mg-90.314 mg capsule RxNorm: 1 Capsule(s) PO daily 06/05/2016 06/04/2016 In active Diflucan 150 mg tablet RxNorm: 259529 1 Tablet(s) PO daily 06/05/2016 06/04/2016 Inactive Deplin (algal oil) 1 5 mg-90.314 mg capsule RxNorm: 1 Capsule(s) PO daily 06/05/2016 05/12/2017 In active nystatin 500,000 uni t tablet RxNorm: 276897 4 Tablet(s) PO daily 05/21/2016 09/17/2016 Inactive Vitamin D3 5,000 uni t tablet RxNorm: 491236 Tablet(s) PO daily 05/07/2016 No Stop Date Active nystatin 500,000 uni t tablet RxNorm: 943481 1 Tablet(s) PO Q4H 05/07/2016 05/20/2016 Inactive fluconazole 100 mg t ablet RxNorm: 343356 1 Tablet(s) PO daily 05/07/2016 06/11/2016 Inactive progesterone microni zed 100 mg capsule RxNorm: 489702 3 Capsule(s) PO daily on days 1- 25 of each month 05/07/2016 2017 Inactive metronidazole 500 mg tablet RxNorm: 599064 1 Tablet(s) PO TID 04/30/2016 05/09/2016 Inactive metronidazole 500 mg tablet RxNorm: 335652 1 Tablet(s) PO TID 04/30/2016 04/29/2016 Inactive vancomycin 125 mg ca psule RxNorm: 646764 1 Capsule(s) PO QID 04/29/2016 05/08/2016 Inactive vancomycin 125 mg ca psule RxNorm: 481498 1 Capsule(s) PO QID 04/29/2016 04/28/2016 Inactive Flagyl 500 mg tablet RxNorm: 220125 1 Tablet(s) PO TID 04/09/2016 04/08/2016 Inactive Flagyl 500 mg tablet RxNorm: 438569 1 Tablet(s) PO TID 04/09/2016 04/22/2016 Inactive carvedilol 3.125 mg tablet RxNorm: 808819 1 Tablet(s) PO BID 04/08/2016 2017 Inactive [place] Thyroid 60 mg tablet RxNorm: 575554 Tablet(s) PO 1 Tablet (s) daily 01/31/2016 06/19/2016 In active Pt request 90 day supply 11/23/2015 11:1 1:54 AM [place] Thyroid 30 mg tablet RxNorm: 413047 1 Tablet(s) daily 01/28/2016 01/30/2016 Inactive Pt request 90 day supply 11/23/2015 11:1 1:54 AM [place] Thyroid 30 mg tablet RxNorm: 548611 1 Tablet(s) daily 01/21/2016 01/27/2016 Inactive Pt request 90 day supply 11/23/2015 11:1 1:54 AM [place] Thyroid 30 mg tablet RxNorm: 193117 Tablet(s) TAKE ONE AN D ONE-HALF (45 MG) TABLET BY MOUTH EVERY DAY 01/02/2016 01/20/2016 Inactive Pt request 90 day supply 11/23/2015 11:11:54 AM Xylocaine 20 mg/mL ( 2 %) injection solution RxNorm: 6619438 2.5 Milliliter(s) In j BID with cefepime 12/27/2015 01/25/2016 Inactive cefepime 1 gram solu tion for injection RxNorm: 5474553 Inj 12/1012/27/2015 Inactive [place] Thyroid 30 mg tablet RxNorm: 185954 TAKE ONE TABLET BY [facility] EVERY DAY 11/23/2015 01/01/2016 In active Pt request 90 day supply 11/23/2015 11:1 1:54 AM Voltaren 1 % topical gel RxNorm: 976172 2 Gram(s) TOP QID 09/24/2015 12/26/2015 Inactive cyclobenzaprine 10 m g tablet RxNorm: 266428 1 Tablet(s) PO Q6 as needed 08/27/2015 05/06/2016 In active [place] Thyroid 30 mg tablet RxNorm: 996186 1 Tablet(s) PO daily 06/21/2015 06/20/2015 Inactive [place] Thyroid 30 mg tablet RxNorm: 690517 1 Tablet(s) PO daily 06/21/2015 11/22/2015 Inactive Synthroid 25 mcg tablet RxNorm: 007869 1 Tablet(s) PO daily 06/07/2015 06/06/2015 Inactive KASEY-1 Synthroid 25 mcg tablet RxNorm: 672270 1 Tablet(s) PO daily 06/07/2015 06/20/2015 Inactive [facility]-1 ofloxacin 0.3 % ear drops RxNorm: 149545 1-2 Drop(s) OTIC OU Q 4H as needed No Start Date Active Aspirin Low Dose 81 mg tablet,delayed release RxNorm: 809371 1 Tablet(s) PO daily No Start Date Active tyrosine (bulk) powder RxNorm: 1 Miscellaneous dash every am No Start Date Active arginine (L-arginine ) oral RxNorm: 1091 oral No Sta rt Date Active glutathione RxNorm: 4890 miscellaneous No Start Date Active Plaquenil 200 mg tablet RxNorm: 511306 1 Tablet(s) PO BID No Start Date 05/19/2016 Inactive fluconazole 100 mg t ablet RxNorm: 457033 1/2 Tablet(s) PO daily No Start Date 05/06/2016 Inactive fluconazole 150 mg t ablet RxNorm: 673956 1 Tablet(s) PO QW x4 No Start Date 12/26/2015 Inactive progesterone microni zed 100 mg capsule RxNorm: 044231 2 Capsule(s) PO daily No Start Date 05/06/2016 Inactive nystatin 500,000 uni t tablet RxNorm: 007126 1 Tablet(s) PO QID No Start Date 05/06/2016 Inactive cyclobenzaprine 10 m g tablet RxNorm: 404883 1 Tablet(s) PO Q6 as needed No Start Date 08/26/2015 Inactive vitamin K oral RxNorm: 8308 oral No Start Date 12/26/2015 Inactive carvedilol 3.125 mg tablet RxNorm: 851391 1 Tablet(s) PO daily No Start Date 04/07/2016 Inactive lisinopril 5 mg tablet RxNorm: 219596 1 Tablet(s) PO daily No Start Date 05/12/2017 Inactive azithromycin 250 mg tablet RxNorm: 141133 1 Tablet(s) PO daily will incrase to 2 per day No Start Date 12/26/2015 Inactive Probiotic 4X oral RxNorm: 4838208 oral No Start Date 01/07/2016 Inactive Imitrex 50 mg tablet RxNorm: 131338 TAKE WITH ONSET OF MIGRAINE- MAY TAKE AN ADDITIONAL DOSE IF NO RELIEF OF HEADACHE IN 1 HOUR- MAX OF 3 DOSES IN 24 HOURS No Start Date 06/13/2018 Inactive Vitamin D3 1,000 uni t tablet RxNorm: 992957 Tablet(s) PO daily No Start Date 05/06/2016 Inactive progesterone microni zed 100 mg capsule RxNorm: 655375 3 Capsule(s) PO daily rx from [facility] No Start Date 12/26/2015 Inactive lorazepam 0.5 mg tablet RxNorm: 386324 1/2-1 Tablet(s) PO daily as needed No Start Date 03/10/2016 Inactive Multiple Vitamin oral RxNorm: 60853 oral No Start Date 05/06/2016 Inactive Medication Administered Medication Codes Instruc tions Start Date Status Kenalog 40 mg/mL suspension for injection RxNorm: 8657317 1.5Milliliter 05/24/2018 No longer Active cefepime 1 gram solution for injection RxNorm: 3826743 12/27/2015 No longer A ctive Immunizations No [...] Item Item Code Result Date Comp Metabolic Lzm662 NA 145 mEq/L 06/14/2018 Comp Metabolic Tzc615 K 4.0 mEq/L 06/14/2018 Comp Metabolic Fug284 CL 106 mEq/L 06/14/2018 Comp Metabolic Xcy843 CO2 31.0 mEq/L 06/14/2018 Comp Metabolic Uaw141 AN ION GAP 12 06/14/2018 Comp Metabolic Mny575 GL UCOSE 88 mg/dL 06/14/2018 Comp Metabolic Fcx983 Cr eat 0.7 mg/dL 06/14/2018 Comp Metabolic Yoc003 eG FR 92 ml/min/1.73m2 06/14 Comp Metabolic Xet861 BUN 9 mg/dL 06/14/2018 Comp Metabolic Nqz946 B/ C Ratio 13.6 Ratio 06/14/2018 Comp Metabolic Wrq876 CA LCIUM 9.0 mg/dL 06/14/2018 Comp Metabolic Sjb717 AL K PHOS 36 U/L 06/14/2018 Comp Metabolic Vrj771 T(SGOT) 21 U/L 06/14/2018 Comp Metabolic Pfb718 AL T(SGPT) 22 U/L 06/14/2018 Comp Metabolic Kkv860 BI LI T 0.3 mg/dL 06/14/2018 Comp Metabolic Scl333 AL BUMIN 3.8 g/dL 06/14/2018 Comp Metabolic Yix560 TP RO 5.8 g/dL 06/14/2018 Comp Metabolic Vfj583 GL OB 2.0 g/dL 06/14/2018 Comp Metabolic Fwx030 A/ G Ratio 2.0 Ratio 06/14/2018 Comp Metabolic Glj310 Os mo 287 mOsmo 06/14/2018 Free T4 Buo983 FREE T4 0.66 ng/dL 06/14/2018 Tsh Ord6 [...] 32.9 % 06/14/2018 Cbc With Differential Ord2 [place]% 13.9 [...] Baso ABS# 0.0 K/ul 06/14/2018 Free T4 Pro662 FREE T4 0.63 ng/dL 01/05/2018 Lipid Ord30 CHOL 246 mg/dL 01/05/2018 Lipid Ord30 HDL 79.0 mg/dl 01/05/2018 Lipid Ord30 TRIG 124 mg/dL 01/05/2018 Lipid Ord30 LDL 142 mg/dL 01/05/2018 Lipid Ord30 C/HDL 3.1 Ratio 01/05/2018 Tsh Ord6 TSH (3rd IS) 1.48 uIU/mL 01/05/2018 Tsh Ord6 hTSH II 2.03 uIU/mL 08/07/2017 Comp Metabolic Pui731 NA 142 mEq/L 08/07/2017 Comp Metabolic Oce208 K 4.1 mEq/L 08/07/2017 Comp Metabolic Vkc999 CL 105 mEq/L 08/07/2017 Comp Metabolic Ijb155 CO2 27.0 mEq/L 08/07/2017 Comp Metabolic Dhg007 AN ION GAP 14 08/07/2017 Comp Metabolic Qsz536 GL UCOSE 89 mg/dL 08/07/2017 Comp Metabolic Tqg976 Cr eat 0.7 mg/dL 08/07/2017 Comp Metabolic Gjh515 eG FR 86 ml/min/1.73m2 08/07 Comp Metabolic Enj964 BUN 16 mg/dL 08/07/2017 Comp Metabolic Qdx589 B/ C Ratio 22.9 Ratio 08/07/2017 Comp Metabolic Bol620 CA LCIUM 9.8 mg/dL 08/07/2017 Comp Metabolic Rvn851 AL K PHOS 41 U/L 08/07/2017 Comp Metabolic Gtq516 T(SGOT) 26 U/L 08/07/2017 Comp Metabolic Mlm582 AL T(SGPT) 21 U/L 08/07/2017 Comp Metabolic Ehk613 BI LI T 0.5 mg/dL 08/07/2017 Comp Metabolic Dtk017 AL BUMIN 4.3 g/dL 08/07/2017 Comp Metabolic Quv831 TP RO 6.6 g/dL 08/07/2017 Comp Metabolic Iej063 GL OB 2.3 g/dL 08/07/2017 Comp Metabolic Arp999 A/ G Ratio 1.9 Ratio 08/07/2017 Comp Metabolic Sxr849 Os mo 284 mOsmo 08/07/2017 Free T4 Ter688 FREE T4 0.64 ng/dL 08/07/2017 Lipid Ord30 [...] 92.3 fl 11/20/2016 Cbc With Differential Ord2 [place]% 10.8 [...] Baso ABS# 0.0 K/ul 11/20/2016 Free T4 Dlt614 FREE T4 0.80 ng/dL 11/20/2016 Tsh Ord6 hTSH II 1.35 uIU/mL 11/20/2016 Comp Metabolic Htm129 NA 139 mEq/L 11/20/2016 Comp Metabolic Fkk514 K 3.9 mEq/L 11/20/2016 Comp Metabolic Dxt687 CL 103 mEq/L 11/20/2016 Comp Metabolic Ios622 CO2 30.0 mEq/L 11/20/2016 Comp Metabolic Uvb767 AN ION GAP 10 11/20/2016 Comp Metabolic Rsb472 GL UCOSE 85 mg/dL 11/20/2016 Comp Metabolic Fhh419 Cr eat 0.7 mg/dL 11/20/2016 Comp Metabolic Bkz805 eG FR 93 ml/min/1.73m2 11/20 Comp Metabolic Dxq095 BUN 12 mg/dL 11/20/2016 Comp Metabolic Cak579 B/ C Ratio 18.2 Ratio 11/20/2016 Comp Metabolic Ugw785 CA LCIUM 9.1 mg/dL 11/20/2016 Comp Metabolic Oyc515 AL K PHOS 34 U/L 11/20/2016 Comp Metabolic Uee066 T(SGOT) 18 U/L 11/20/2016 Comp Metabolic Xyg136 AL T(SGPT) 14 U/L 11/20/2016 Comp Metabolic Ruz158 BI LI T 0.5 mg/dL 11/20/2016 Comp Metabolic Ebu606 AL BUMIN 4.2 g/dL 11/20/2016 Comp Metabolic Ubr569 TP RO 6.3 g/dL 11/20/2016 Comp Metabolic Scz414 GL OB 2.1 g/dL 11/20/2016 Comp Metabolic Wct855 A/ G Ratio 2.0 Ratio 11/20/2016 Comp Metabolic Zki346 Os mo 277 mOsmo 11/20/2016 Lipid Ord30 CHOL 189 mg/dL 11/20/2016 Lipid Ord30 HDL 81.0 mg/dl 11/20/2016 Lipid Ord30 TRIG 77 mg/dL 11/20/2016 Lipid Ord30 LDL 93 mg/dL 11/20/2016 Lipid Ord30 C/HDL 2.3 Ratio 11/20/2016 Testosterone Free Direct [id number] FREE TESTOSTERONE 0.7 pg/mL 10/06/2016 Estradiol 797007 ESTRADI OL 5.9 pg/mL 10/03/2016 Cortisol 244790 CORTISOL 23 ug/dL 10/03/2016 Progesterone Vdl843 Prog 17.38 ng/mL 10/01/2016 Free T4 Cga295 FREE T4 0.66 ng/dL 08/13/2016 Tsh Ord6 hTSH II 0.99 uIU/mL 08/13/2016 Testosterone Free Direct 573284 FREE TESTOSTERONE <0.2 pg/mL 07/05/2016 Estradiol 716040 ESTRADI OL <5.0 pg/mL 07/03/2016 Progesterone Axj518 Prog 23.37 ng/mL 07/02/2016 Tsh Ord6 hTSH II 0.24 uIU/mL 06/17/2016 Free T4 Les512 FREE T4 0.86 ng/dL 06/17/2016 Estradiol 770122 ESTRADI OL <5.0 pg/mL 05/21/2016 Comp Metabolic Feg761 NA 140 mEq/L 05/20/2016 Comp Metabolic Xzd075 K 4.1 mEq/L 05/20/2016 Comp Metabolic Ngq177 CL 106 mEq/L 05/20/2016 Comp Metabolic Wgc796 CO2 26.0 mEq/L 05/20/2016 Comp Metabolic Exd590 AN ION GAP 12 05/20/2016 Comp Metabolic Mdg215 GL UCOSE 81 mg/dL 05/20/2016 Comp Metabolic Cpx785 Cr eat 0.5 mg/dL 05/20/2016 Comp Metabolic Ktd927 eG FR 119 ml/min/1.73m2 05/09 Comp Metabolic Bqy972 BUN 15 mg/dL 05/20/2016 Comp Metabolic Bkq129 B/ C Ratio 28.3 Ratio 05/20/2016 Comp Metabolic Bfv914 CA LCIUM 8.9 mg/dL 05/20/2016 Comp Metabolic Bzc265 AL K PHOS 36 U/L 05/20/2016 Comp Metabolic Uoa723 T(SGOT) 25 U/L 05/20/2016 Comp Metabolic Kaq009 AL T(SGPT) 23 U/L 05/20/2016 Comp Metabolic Xio730 BI LI T 0.4 mg/dL 05/20/2016 Comp Metabolic Ykd771 AL BUMIN 3.7 g/dL 05/20/2016 Comp Metabolic Iwc980 TP RO 5.9 g/dL 05/20/2016 Comp Metabolic Sjy278 GL OB 2.2 g/dL 05/20/2016 Comp Metabolic Rll913 A/ G Ratio 1.7 Ratio 05/20/2016 Comp Metabolic Wyb470 Os mo 279 mOsmo 05/20/2016 Progesterone Nhy820 Prog 8.44 ng/mL 05/20/2016 Cbc With Differential [...] 18.4 % 05/20/2016 Cbc With Differential Ord2 [place]% 13.0 [...] collection if refrigerated) 05/20/2016 Testosterone Free Direct [id number] FREE TESTOSTERONE 0.6 pg/mL 05/19/2016 Estradiol 559020 ESTRADI OL <5.0 pg/mL 05/16/2016 Comp Metabolic Jsd578 NA 140 mEq/L 05/15/2016 Comp Metabolic Xsp796 K 3.8 mEq/L 05/15/2016 Comp Metabolic Yig592 CL 106 mEq/L 05/15/2016 Comp Metabolic Aoe321 CO2 26.0 mEq/L 05/15/2016 Comp Metabolic Hlk867 AN ION GAP 12 05/15/2016 Comp Metabolic Bpe192 GL UCOSE 77 mg/dL 05/15/2016 Comp Metabolic Ole631 Cr eat 0.5 mg/dL 05/15/2016 Comp Metabolic Swr758 eG FR 144 ml/min/1.73m2 05/2016 Comp Metabolic Acy734 BUN 18 mg/dL 05/15/2016 Comp Metabolic Uex162 B/ C Ratio 40.0 Ratio 05/15/2016 Comp Metabolic Zuo535 CA LCIUM 8.8 mg/dL 05/15/2016 Comp Metabolic Xek153 AL K PHOS 28 U/L 05/15/2016 Comp Metabolic Uyq287 T(SGOT) 19 U/L 05/15/2016 Comp Metabolic Bxu245 AL T(SGPT) 19 U/L 05/15/2016 Comp Metabolic Naa390 BI LI T 0.5 mg/dL 05/15/2016 Comp Metabolic Efn087 AL BUMIN 3.6 g/dL 05/15/2016 Comp Metabolic Kri598 TP RO 5.6 g/dL 05/15/2016 Comp Metabolic Nao526 GL OB 2.0 g/dL 05/15/2016 Comp Metabolic Rdp424 A/ G Ratio 1.8 Ratio 05/15/2016 Comp Metabolic Rwj683 Os mo 280 mOsmo 05/15/2016 Progesterone Ovf044 Prog 9.08 ng/mL 05/15/2016 Cbc With Differential [...] Ord28 U-Com None 05/15/2016 Testosterone Free Direct 595861 FREE TESTOSTERONE 0.2 pg/mL 05/09/2016 Estradiol 519672 ESTRADI OL <5.0 pg/mL 05/07/2016 Comp Metabolic Wag893 NA 141 mEq/L 05/06/2016 Comp Metabolic Ldj781 K 3.6 mEq/L 05/06/2016 Comp Metabolic Hgl089 CL 107 mEq/L 05/06/2016 Comp Metabolic Pcs804 CO2 28.0 mEq/L 05/06/2016 Comp Metabolic Rbc392 AN ION GAP 10 05/06/2016 Comp Metabolic Eio916 GL UCOSE 138 mg/dL 05/06/2016 Comp Metabolic Sxc042 Cr eat 0.5 mg/dL 05/06/2016 Comp Metabolic Mov561 eG FR 119 ml/min/1.73m2 04/10 Comp Metabolic Gcz489 BUN 16 mg/dL 05/06/2016 Comp Metabolic Pgj090 B/ C Ratio 30.2 Ratio 05/06/2016 Comp Metabolic Nwr466 CA LCIUM 8.9 mg/dL 05/06/2016 Comp Metabolic Syt840 AL K PHOS 29 U/L 05/06/2016 Comp Metabolic Vzg699 T(SGOT) 20 U/L 05/06/2016 Comp Metabolic Nnx069 AL T(SGPT) 21 U/L 05/06/2016 Comp Metabolic Ecg373 BI LI T 0.4 mg/dL 05/06/2016 Comp Metabolic Cwi910 AL BUMIN 3.6 g/dL 05/06/2016 Comp Metabolic Kzm838 TP RO 5.5 g/dL 05/06/2016 Comp Metabolic Hct387 GL OB 1.9 g/dL 05/06/2016 Comp Metabolic Jkf929 A/ G Ratio 1.9 Ratio 05/06/2016 Comp Metabolic Uoj464 Os mo 285 mOsmo 05/06/2016 Urinalysis Ord28 [...] hours from collection if refrigerated) 05/06/2016 Progesterone Blg943 Prog 0.98 ng/mL 05/06/2016 Cbc With Differential [...] 29.9 % 05/06/2016 Cbc With Differential Ord2 [place]% 10.1 [...] 88.9 fl 04/29/2016 Cbc With Differential Ord2 [place]% 13.1 [...] Baso ABS# 0.0 K/ul 04/29/2016 Comp Metabolic Ikq547 NA 141 mEq/L 04/29/2016 Comp Metabolic Rvn651 K 4.0 mEq/L 04/29/2016 Comp Metabolic Krn877 CL 108 mEq/L 04/29/2016 Comp Metabolic Djv730 CO2 27.0 mEq/L 04/29/2016 Comp Metabolic Nes355 AN ION GAP 10 04/29/2016 Comp Metabolic Syd124 GL UCOSE 69 mg/dL 04/29/2016 Comp Metabolic Inj832 Cr eat 0.5 mg/dL 04/29/2016 Comp Metabolic Yls140 eG FR 122 ml/min/1.73m2 04/10 Comp Metabolic Fqb387 BUN 19 mg/dL 04/29/2016 Comp Metabolic Uky493 B/ C Ratio 36.5 Ratio 04/29/2016 Comp Metabolic Tun578 CA LCIUM 9.1 mg/dL 04/29/2016 Comp Metabolic Bni895 AL K PHOS 31 U/L 04/29/2016 Comp Metabolic Zsk684 T(SGOT) 20 U/L 04/29/2016 Comp Metabolic Ltu663 AL T(SGPT) 22 U/L 04/29/2016 Comp Metabolic Oto055 BI LI T 0.6 mg/dL 04/29/2016 Comp Metabolic Nbm099 AL BUMIN 3.8 g/dL 04/29/2016 Comp Metabolic Imc094 TP RO 5.9 g/dL 04/29/2016 Comp Metabolic Uos092 GL OB 2.1 g/dL 04/29/2016 Comp Metabolic Fkb153 A/ G Ratio 1.8 Ratio 04/29/2016 Comp Metabolic Qni506 Os mo 282 mOsmo 04/29/2016 Progesterone Zci537 Prog 5.99 ng/mL 04/29/2016 Urinalysis Ord28 U-Color [...] Urinalysis Ord28 U-Yeast NEGATIVE 04/25/2016 Comp Metabolic Noi998 NA 138 mEq/L 04/25/2016 Comp Metabolic Dui522 K 3.6 mEq/L 04/25/2016 Comp Metabolic Ucy443 CL 105 mEq/L 04/25/2016 Comp Metabolic Ebi148 CO2 27.0 mEq/L 04/25/2016 Comp Metabolic Aoe167 AN ION GAP 10 04/25/2016 Comp Metabolic Dxx683 GL UCOSE 190 mg/dL 04/25/2016 Comp Metabolic Oyv175 Cr eat 0.5 mg/dL 04/25/2016 Comp Metabolic Lbt689 eG FR 128 ml/min/1.73m2 04/09 Comp Metabolic Ore978 BUN 17 mg/dL 04/25/2016 Comp Metabolic Kyp783 B/ C Ratio 34.0 Ratio 04/25/2016 Comp Metabolic Xdd176 CA LCIUM 8.7 mg/dL 04/25/2016 Comp Metabolic Csx737 AL K PHOS 32 U/L 04/25/2016 Comp Metabolic Rnr334 T(SGOT) 23 U/L 04/25/2016 Comp Metabolic Mxd445 AL T(SGPT) 22 U/L 04/25/2016 Comp Metabolic Wyc384 BI LI T 0.5 mg/dL 04/25/2016 Comp Metabolic Bvq313 AL BUMIN 3.6 g/dL 04/25/2016 Comp Metabolic Bfk779 TP RO 5.5 g/dL 04/25/2016 Comp Metabolic Lcu369 GL OB 1.9 g/dL 04/25/2016 Comp Metabolic Jor266 A/ G Ratio 1.9 Ratio 04/25/2016 Comp Metabolic Htx156 Os mo 282 mOsmo 04/25/2016 Cbc With [...] 88.8 fl 04/04/2016 Cbc With Differential Ord2 [place]% 16.1 [...] Baso ABS# 0.0 K/ul 04/04/2016 Comp Metabolic Fmy149 NA 140 mEq/L 04/04/2016 Comp Metabolic Gla457 K 4.1 mEq/L 04/04/2016 Comp Metabolic Hak002 CL 106 mEq/L 04/04/2016 Comp Metabolic Mjy484 CO2 27.0 mEq/L 04/04/2016 Comp Metabolic Hss444 AN ION GAP 11 04/04/2016 Comp Metabolic Xkh570 GL UCOSE 71 mg/dL 04/04/2016 Comp Metabolic Huw071 Cr eat 0.5 mg/dL 04/04/2016 Comp Metabolic Tvd986 eG FR 131 ml/min/1.73m2 03/10 Comp Metabolic Lwj344 BUN 14 mg/dL 04/04/2016 Comp Metabolic Woc369 B/ C Ratio 28.6 Ratio 04/04/2016 Comp Metabolic Tiz923 CA LCIUM 9.1 mg/dL 04/04/2016 Comp Metabolic Ecf348 AL K PHOS 42 U/L 04/04/2016 Comp Metabolic Bul347 T(SGOT) 18 U/L 04/04/2016 Comp Metabolic Qfn179 AL T(SGPT) 17 U/L 04/04/2016 Comp Metabolic Prl974 BI LI T 0.4 mg/dL 04/04/2016 Comp Metabolic Mbs218 AL BUMIN 3.8 g/dL 04/04/2016 Comp Metabolic Acx413 TP RO 6.0 g/dL 04/04/2016 Comp Metabolic Nyn943 GL OB 2.2 g/dL 04/04/2016 Comp Metabolic Hhy168 A/ G Ratio 1.7 Ratio 04/04/2016 Comp Metabolic Fve410 Os mo 278 mOsmo 04/04/2016 Urinalysis Ord28 [...] 33.2 % 03/28/2016 Cbc With Differential Ord2 [place]% 11.7 [...] part differential hematolgy analyzer. 03/28/2016 Comp Metabolic Pwq069 NA 137 mEq/L 03/28/2016 Comp Metabolic Xpw488 K 3.5 mEq/L 03/28/2016 Comp Metabolic Imm421 CL 105 mEq/L 03/28/2016 Comp Metabolic Rxc544 CO2 27.0 mEq/L 03/28/2016 Comp Metabolic Hem325 AN ION GAP 9 03/28/2016 Comp Metabolic Vgd175 GL UCOSE 174 mg/dL 03/28/2016 Comp Metabolic Nye709 Cr eat 0.5 mg/dL 03/28/2016 Comp Metabolic Vpo558 eG FR 131 ml/min/1.73m2 03/10 Comp Metabolic Mzm484 BUN 13 mg/dL 03/28/2016 Comp Metabolic Tty568 B/ C Ratio 26.5 Ratio 03/28/2016 Comp Metabolic Zsq162 CA LCIUM 8.7 mg/dL 03/28/2016 Comp Metabolic Tmy032 AL K PHOS 31 U/L 03/28/2016 Comp Metabolic Oul506 T(SGOT) 20 U/L 03/28/2016 Comp Metabolic Kwg315 AL T(SGPT) 19 U/L 03/28/2016 Comp Metabolic Qcm218 BI LI T 0.4 mg/dL 03/28/2016 Comp Metabolic Yxi962 AL BUMIN 3.5 g/dL 03/28/2016 Comp Metabolic Lkx837 TP RO 5.3 g/dL 03/28/2016 Comp Metabolic Tqe188 GL OB 1.8 g/dL 03/28/2016 Comp Metabolic Jhq358 A/ G Ratio 2.0 Ratio 03/28/2016 Comp Metabolic Ilg965 Os mo 278 mOsmo 03/28/2016 Urinalysis Ord28 [...] Ord28 U-Yeast NEGATIVE 03/28/2016 Testosterone Free Direct [id number] FREE TESTOSTERONE <0.2 pg/mL 03/13/2016 Estradiol 550831 ESTRADI OL <5.0 pg/mL 03/12/2016 Progesterone Vrn329 Prog 0.56 ng/mL 03/10/2016 Homocyst(E)Ine Plasma [id number] HOMOCYSTEINE, TOTAL 10.9 umol/L 01/18/2016 Mthfr 238089 MTHFR C677T: HETEROZYGOUS MUTATION DETECTED 02/2016 Mthfr 065611 MTHFR A1298 C: HETEROZYGOUS MUTATION DETECTED 01/11/2016 Mthfr 522119 INTERPRETAT ION: 01/11/2016 Iodine Serum 668137 IOD INE, SERUM 131.0 ug/L 01/10/2016 Tsh Ord6 hTSH II 2.11 uIU/mL 01/07/2016 Comp Metabolic Jtd900 NA 139 mEq/L 01/07/2016 Comp Metabolic Anf719 K 4.0 mEq/L 01/07/2016 Comp Metabolic Nvv524 CL 104 mEq/L 01/07/2016 Comp Metabolic Bjl981 CO2 26.0 mEq/L 01/07/2016 Comp Metabolic Sno628 AN ION GAP 13 01/07/2016 Comp Metabolic Ula978 GL UCOSE 86 mg/dL 01/07/2016 Comp Metabolic Ipo164 Cr eat 0.6 mg/dL 01/07/2016 Comp Metabolic Vhs377 eG FR 100 ml/min/1.73m2 12/11 Comp Metabolic Tpq932 BUN 18 mg/dL 01/07/2016 Comp Metabolic Gew478 B/ C Ratio 29.0 Ratio 01/07/2016 Comp Metabolic Nwx774 CA LCIUM 9.4 mg/dL 01/07/2016 Comp Metabolic Mbm629 AL K PHOS 40 U/L 01/07/2016 Comp Metabolic Yym013 T(SGOT) 20 U/L 01/07/2016 Comp Metabolic Exq537 AL T(SGPT) 24 U/L 01/07/2016 Comp Metabolic Nkp239 BI LI T 0.6 mg/dL 01/07/2016 Comp Metabolic Two046 AL BUMIN 4.1 g/dL 01/07/2016 Comp Metabolic Crf551 TP RO 6.4 g/dL 01/07/2016 Comp Metabolic Dsi183 GL OB 2.3 g/dL 01/07/2016 Comp Metabolic Izw133 A/ G Ratio 1.8 Ratio 01/07/2016 Comp Metabolic Tpv897 Os mo 279 mOsmo 01/07/2016 Lipid Ord30 [...] 11/26/2015 Urinalysis Ord28 U-Yeast NEGATIVE 11/26/2015 Progesterone Itw242 Prog >40.00 ng/mL 11/26/2015 Testosterone Free Direct 483279 FREE TESTOSTERONE 0.6 pg/mL 10/01/2015 Estradiol 108805 ESTRADI OL <5.0 pg/mL 09/26/2015 Urinalysis Ord28 [...] Urinalysis Ord28 U-Yeast NEGATIVE 09/25/2015 Comp Metabolic Woe164 NA 142 mEq/L 09/25/2015 Comp Metabolic Sca726 K 4.3 mEq/L 09/25/2015 Comp Metabolic Ybq743 CL 110 mEq/L 09/25/2015 Comp Metabolic Juj394 CO2 23.0 mEq/L 09/25/2015 Comp Metabolic Ali600 AN ION GAP 13 09/25/2015 Comp Metabolic Zvv622 GL UCOSE 76 mg/dL 09/25/2015 Comp Metabolic Hux499 Cr eat 0.8 mg/dL 09/25/2015 Comp Metabolic Pui231 eG FR 79 ml/min/1.73m2 09/25 Comp Metabolic Rzk063 BUN 17 mg/dL 09/25/2015 Comp Metabolic Hkf994 B/ C Ratio 22.4 Ratio 09/25/2015 Comp Metabolic Lyj472 CA LCIUM 9.4 mg/dL 09/25/2015 Comp Metabolic Hfq372 AL K PHOS 45 U/L 09/25/2015 Comp Metabolic Dac898 T(SGOT) 20 U/L 09/25/2015 Comp Metabolic Rkg463 AL T(SGPT) 18 U/L 09/25/2015 Comp Metabolic Axq920 BI LI T 0.5 mg/dL 09/25/2015 Comp Metabolic Mna683 AL BUMIN 4.0 g/dL 09/25/2015 Comp Metabolic Dve123 TP RO 6.2 g/dL 09/25/2015 Comp Metabolic Psi538 GL OB 2.2 g/dL 09/25/2015 Comp Metabolic Vnf987 A/ G Ratio 1.8 Ratio 09/25/2015 Comp Metabolic Jni254 Os mo 283 mOsmo 09/25/2015 Tsh Ord6 hTSH II 4.05 uIU/mL 09/25/2015 Progesterone Ccn607 Prog 21.38 ng/mL 09/25/2015 Free T4 Fpc402 FREE T4 0.78 ng/dL 09/25/2015 Cbc With [...] RDW 14.3 % 09/25/2015 Testosterone Free Direct 050271 FREE TESTOSTERONE 1.2 pg/mL 08/31/2015 Estradiol 600418 ESTRADI OL <5.0 pg/mL 08/29/2015 Progesterone Oyx898 Prog 4.37 ng/mL 08/28/2015 Fungal Screen I 635534 * *ASPERGILLUS AB BY ID . 07/23/2015 Fungal Screen I 628596 A SPERGILLUS AB BY ID None Detected 015 Fungal Screen I 716266 * *BLASTOMYCES ANTIBODY BY CF & ID . 07/23/2015 Fungal Screen I 945029 B LASTOMYCES AB,CF <1:8 07/23/2015 Fungal Screen I 345059 B LASTOMYCES AB,ID None Detected 015 Fungal Screen I 554374 * *MAXINE ANTIBODY BY ID . 07/23/2015 Fungal Screen I 814377 C ANDIDA AB BY ID Detected 07/23/2015 Fungal Screen I 996058 * *COCCIDIOIDES ANTIBODIES, IGG & IGM . 07/23/2015 Fungal Screen I 371437 C OCCIDIOIDES AB IGM 0.3 IV 07/23/2015 Fungal Screen I 269255 C OCCIDIOIDES AB IGG 0.4 IV 07/23/2015 Fungal Screen I 133079 * *HISTOPLASMA ANTIBODY BY ID . 07/23/2015 Fungal Screen I 351704 H ISTOPLASMA ABS (ID) None Detected 015 Francisella Tularensis Abs 542968 F. TULARENSIS, IGG 0 U/mL 07/17/2015 Francisella Tularensis Abs 485576 F. TULARENSIS, IGM 0 U/mL 07/17/2015 Vitamin D 25 Oh Wmg5886 VITAMIN D, 25 HYDROXY 142.21 ng/mL 07/13/2015 Antistrptolysin-O Qualitative Gjj535 ASO Negative 07/12/2015 B12 Sfp218 B12 956.00 pg/ml 07/12/2015 Cbc With Differential [...] Ord2 RDW 15.1 % 07/10/2015 Free T4 Xbu720 FREE T4 0.79 ng/dL 06/12/2015 Urinalysis Ord28 [...] Ord2 RDW 16.0 % 06/04/2015 Comp Metabolic Epi020 NA 139 mEq/L 06/04/2015 Comp Metabolic Gun920 K 3.9 mEq/L 06/04/2015 Comp Metabolic Hpb542 CL 108 mEq/L 06/04/2015 Comp Metabolic Eya318 CO2 26.0 mEq/L 06/04/2015 Comp Metabolic Nuw491 AN ION GAP 9 06/04/2015 Comp Metabolic Tux215 GL UCOSE 74 mg/dL 06/04/2015 Comp Metabolic Pso990 Cr eat 0.6 mg/dL 06/04/2015 Comp Metabolic Tnd113 eG FR 102 ml/min/1.73m2 05/10 Comp Metabolic Kng027 BUN 18 mg/dL 06/04/2015 Comp Metabolic Hma267 B/ C Ratio 29.5 Ratio 06/04/2015 Comp Metabolic Ksa950 CA LCIUM 9.0 mg/dL 06/04/2015 Comp Metabolic Ose820 AL K PHOS 44 U/L 06/04/2015 Comp Metabolic Ptl597 T(SGOT) 22 U/L 06/04/2015 Comp Metabolic Utn331 AL T(SGPT) 23 U/L 06/04/2015 Comp Metabolic Ehb461 BI LI T 0.4 mg/dL 06/04/2015 Comp Metabolic Pne219 AL BUMIN 4.0 g/dL 06/04/2015 Comp Metabolic Hjj533 TP RO 5.8 g/dL 06/04/2015 Comp Metabolic Ogc751 GL OB 1.8 g/dL 06/04/2015 Comp Metabolic Kxp572 A/ G Ratio 2.2 Ratio 06/04/2015 Comp Metabolic Neo583 Os mo 278 mOsmo 06/04/2015 Tsh Ord6 [...] 4: G0439 03/11/2016 THER/PROPH/DIAG INJ SC/IM CPT-4: 15922 12/27/2015 Vital Signs Date Vital 09/15/2018 Blood Pressure 1: 130/70 Code: 8480-6 BMI: 20.6 Code: 56560-8 Heart Rate 1: 75 bpm Height: 5' SpO2: 99% Weight: 105 lbs 8 oz 09/10/2018 Blood Pressure 1: 126/68 Code: 8480-6 BMI: 20.7 Code: 44578-9 Heart Rate 1: 63 bpm Height: 5' SpO2: 96% Waist Measure (cm): 66 cm Weight: 106 lbs 06/01/2018 Blood Pressure 1: 156/76 Code: 8480-6 BMI: 20.1 Code: 54101-9 Heart Rate 1: 68 bpm Height: 5' SpO2: 99% Weight: 103 lbs 05/24/2018 Blood Pressure 1: 120/60 Code: 8480-6 BMI: 20.5 Code: 92430-8 Heart Rate 1: 82 bpm Height: 5' SpO2: 98% Weight: 105 lbs 05/19/2018 Blood Pressure 1: 140/72 Code: 8480-6 BMI: 20.5 Code: 29870-3 Heart Rate 1: 96 bpm Height: 5' SpO2: 98% Weight: 105 lbs 01/12/2018 Blood Pressure 1: 146/78 Code: 8480-6 BMI: 21.1 Code: 33015-4 Heart Rate 1: 85 bpm Height: 5' SpO2: 95% Weight: 108 lbs 10/12/2017 Blood Pressure 1: 138/72 Code: 8480-6 BMI: 21.1 Code: 51761-8 Heart Rate 1: 96 bpm Height: 5' SpO2: 98% Weight: 108 lbs 08/06/2017 Blood Pressure 1: 130/78 Code: 8480-6 BMI: 20.5 Code: 81874-7 Heart Rate 1: 89 bpm Height: 5' SpO2: 98% Weight: 105 lbs 05/13/2017 Blood Pressure 1: 122/70 Code: 8480-6 BMI: 20.5 Code: 36317-5 Heart Rate 1: 80 bpm Height: 5' SpO2: 97% Weight: 105 lbs 03/19/2017 Blood Pressure 1: 138/80 Code: 8480-6 BMI: 20.5 Code: 37530-3 Heart Rate 1: 83 bpm Height: 5' SpO2: 97% Waist Measure (cm): 74 cm Weight: 105 lbs 03/18/2017 Blood Pressure 1: 138/80 Code: 8480-6 BMI: 20.5 Code: 71192-1 Heart Rate 1: 83 bpm Height: 5' SpO2: 97% Weight: 105 lbs 01/27/2017 Blood Pressure 1: 142/68 Code: 8480-6 BMI: 20.5 Code: 94765-3 Heart Rate 1: 69 bpm Height: 5' SpO2: 97% Weight: 105 lbs 12/29/2016 Blood Pressure 1: 154/82 Code: 8480-6 BMI: 20.1 Code: 14968-3 Heart Rate 1: 76 bpm Height: 5' SpO2: 94% Temperature: 37.4 (C ) / 99.4 (F) Weight: 103 lbs 11/19/2016 Blood Pressure 1: 134/74 Code: 8480-6 BMI: 19.7 Code: 79642-8 Heart Rate 1: 64 bpm Height: 5' Weight: 101 lbs 08/13/2016 Blood Pressure 1: 118/56 Code: 8480-6 BMI: 19.5 Code: 90980-3 Heart Rate 1: 64 bpm Height: 5' SpO2: 97% Weight: 100 lbs 07/03/2016 Blood Pressure 1: 120/68 Code: 8480-6 BMI: 19.1 Code: 11911-9 Heart Rate 1: 80 bpm Height: 5' SpO2: 98% Weight: 98 lbs 05/07/2016 Blood Pressure 1: 116/58 Code: 8480-6 BMI: 19.1 Code: 37446-6 Heart Rate 1: 79 bpm Height: 5' SpO2: 98% Weight: 98 lbs 04/08/2016 Blood Pressure 1: 118/58 Code: 8480-6 BMI: 19.0 Code: 84726-3 Heart Rate 1: 78 bpm Height: 5' SpO2: 98% Weight: 97 lbs 8 oz 03/11/2016 Blood Pressure 1: 102/60 Code: 8480-6 BMI: 19.7 Code: 33257-8 Heart Rate 1: 75 bpm Height: 5' SpO2: 94% Waist Measure (cm): 71 cm Weight: 101 lbs 12/27/2015 Blood Pressure 1: 128/72 Code: 8480-6 BMI: 20.2 Code: 87147-8 Heart Rate 1: 95 bpm Height: 5' SpO2: 98% Weight: 103 lbs 8 oz 09/24/2015 Blood Pressure 1: 136/70 Code: 8480-6 BMI: 19.1 Code: 47998-4 Heart Rate 1: 72 bpm Height: 5' SpO2: 97% Weight: 98 lbs 06/26/2015 Blood Pressure 1: 144/64 Code: 8480-6 BMI: 18.9 Code: 56759-3 Heart Rate 1: 77 bpm Height: 5' SpO2: 98% Weight: 97 lbs 04/10/2015 Blood Pressure 1: 132/88 Code: 8480-6 BMI: 18.9 Code: 39999-9 Heart Rate 1: 83 bpm Height: 5' SpO2: 97% Weight: 97 lbs Functional Status No Functional Status data History of Present Illness Symptom Name Status Resu lt Effective Date Notes hypertension Quality tari delio hypertension 09/15/2018 None hypertension Onset and Resolution ongoing 09/15/2018 None hypertension Onset of Symptom during adulthood 09/15/2018 None hypertension Alleviating Factors medication 09/15/2018 None 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 P ATIENT, LEVEL IV Diagnosis: Essential (primary) hypertension[ICD10: I10] Diagnosis: Atrophy of thyroid (acquired)[ICD10: E03.4] Diagnosis: Low back pain[ICD10: M54.5] Diagnosis: Other specified noninflammatory disorders of vagina[ICD10: N89.8] [facility] CPT-4: 57095 09/15/2018 ([id number]) 34439 EST. P ATIENT, LEVEL III Diagnosis: Dizziness and giddiness[ICD10: R42] Diagnosis: Allergic contact dermatitis due to plants, except food[ICD10: L23.7] Marixa Moreira MD, [facility] CPT-4: 02219 06/01/2018 ([id number]) 71171 EST. P ATIENT, LEVEL III Diagnosis: Allergic contact dermatitis due to plants, except food[ICD10: L23.7] Marixa Moreira MD, [facility] CPT-4: 82969 05/24/2018 ([id number]) 17066 EST. P ATIENT, LEVEL IV Diagnosis: Essential (primary) hypertension[ICD10: I10] Diagnosis: Atrophy of thyroid (acquired)[ICD10: E03.4] Diagnosis: Obstructive sleep apnea (adult) (pediatric)[ICD10: G47.33] Kailee Moreira MD[facility] CPT-4: 74782 05/19/2018 ([id number]) 33554 EST. P ATIENT, LEVEL IV Diagnosis: Essential (primary) hypertension[ICD10: I10] Diagnosis: Atrophy of thyroid (acquired)[ICD10: E03.4] Diagnosis: Low back pain[ICD10: M54.5] Kailee Moreira MD, [facility] CPT-4: 21502 01/12/2018 ([id number]) 98937 EST. P ATIENT, LEVEL III Diagnosis: Headache[ICD10: R51] Kailee Moreira MD, [facility] CPT-4: 08092 10/12/2017 ([id number]) 76668 EST. P ATIENT, LEVEL IV Diagnosis: Atrophy of thyroid (acquired)[ICD10: E03.4] Diagnosis: Essential (primary) hypertension[ICD10: I10] Diagnosis: Obstructive sleep apnea (adult) (pediatric)[ICD10: G47.33] Kailee Moreira MD, C CPT-4: 26341 08/06/2017 ([id number]) 77145 EST. 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 P ATIENT, LEVEL IV Diagnosis: Atrophy of thyroid (acquired)[ICD10: E03.4] Diagnosis: Essential (primary) hypertension[ICD10: I10] Diagnosis: Encounter for screening for other musculoskeletal disorder[ICD10: Z13.828] Diagnosis: Low back pain[ICD10: M54.5] Diagnosis: Transient alteration of awareness[ICD10: R40.4] Kailee Moreira MD, C CPT-4: 13245 03/18/2017 ([id number]) 94033 EST. P ATIENT, LEVEL IV Diagnosis: Atrophy of thyroid (acquired)[ICD10: E03.4] Diagnosis: Essential (primary) hypertension[ICD10: I10] Diagnosis: Low back pain[ICD10: M54.5] Kailee Moreira MD, [facility] CPT-4: 42600 01/27/2017 ([id number]) 96259 EST. P ATIENT, LEVEL III Diagnosis: Acute recurrent maxillary sinusitis[ICD10: J01.01] Marixa Moreira MD, [facility] CPT-4: 77635 12/29/2016 ([id number]) 53553 EST. P ATIENT, LEVEL IV Diagnosis: Atrophy of thyroid (acquired)[ICD10: E03.4] Diagnosis: Essential (primary) hypertension[ICD10: I10] Kailee Moreira MD, C CPT-4: 92898 11/19/2016 ([id number]) 43102 EST. P ATIENT, LEVEL IV Diagnosis: Atrophy of thyroid (acquired)[ICD10: E03.4] Diagnosis: Enterocolitis due to Clostridium difficile[ICD10: A04.7] Diagnosis: Essential (primary) hypertension[ICD10: I10] Kailee Moreira MD, C CPT-4: 56194 08/13/2016 ([id number]) 92134 EST. P ATIENT, LEVEL IV Diagnosis: Essential (primary) hypertension[ICD10: I10] Diagnosis: Enterocolitis due to Clostridium difficile[ICD10: A04.7] Diagnosis: Hypothyroidism, unspecified[ICD10: E03.9] Diagnosis: Low back pain[ICD10: M54.5] Kailee Moreira MD, [facility] CPT-4: 63490 07/03/2016 ([id number]) 07461 EST. P ATIENT, LEVEL IV Diagnosis: Enterocolitis due to Clostridium difficile[ICD10: A04.7] Diagnosis: Lyme disease, unspecified[ICD10: A69.20] Kailee Moreira MD, C CPT-4: 67698 05/07/2016 ([id number]) 05413 EST. P ATIENT, LEVEL IV Diagnosis: Generalized abdominal rigidity[ICD10: R19.37] Diagnosis: Diarrhea, unspecified[ICD10: R19.7] Diagnosis: Lyme disease, unspecified[ICD10: A69.20] Kailee Moreira MD, [facility] CPT-4: 61974 04/08/2016 ([id number]) 11852 EST. P ATIENT, LEVEL IV Diagnosis: Hypothyroidism, unspecified[ICD10: E03.9] Diagnosis: Lyme disease, unspecified[ICD10: A69.20] Diagnosis: Tachycardia, unspecified[ICD10: R00.0] Kailee Moreira MD, [facility] CPT-4: 46030 12/27/2015 ([id number]) 93786 EST. P ATIENT, LEVEL III Diagnosis: Essential (primary) hypertension[ICD10: I10] Diagnosis: Benign lipomatous neoplasm of skin and subcutaneous tissue of other sites[ICD10: D17.39] Diagnosis: Low back pain[ICD10: M54.5] Kailee Moreira MD, [facility] CPT-4: 56422 09/24/2015 ([id number]) 91777 EST. 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 09/15/2018 [phone] [facility] appointments only in this [...] care surrogate. 09/10/2018 Appointment: Kiersten Armando WPtel: [phone] [facility] [facility] - Annual Wellness Visit 09/10/2018 Patient Education: Patient Medication Summary Completed 09/10/2018 Appointment: Injection 06/14/2018 Visit Plan: Contact dermatitis-disc ussed with Dr Moreira -rx for dexamethasone sent to patient's pharmacy and instructed on use-will also send rx for topical betamethsone -instructed patient to call if symptoms do not resolve or if any worse Njjefdpep-GBK-jqwdcqmw fluids-monitor blood pressure- call if dizziness does not resolve or if any worse-patient and verbalized understanding 06/01/2018 Appointment: Marixa Lakhani WPtel: [phone] [phone] (15 min) Moderate 06/01/2018 Patient Education: Patient Medication Summary Completed 06/01/2018 Visit Plan: Contact dermatitis due to poison magalys/oak-kenalog injection today- pt is to use topical treatments as directed. Pt is cleanse clothing in hot water with soap, and call if symptoms do not improve or if they worsen. 05/24/2018 Appointment: Marixa Lakhani WPtel: [phone] [phone] (15 min) Moderate 05/24/2018 Patient Education: [...] awakening. 05/19/2018 Appointment: Kailee Moreira WPtel: [phone] [facility] (30 min) Complex 05/19/2018 Patient [...] bilaterally 01/12/2018 Appointment: Kailee Moreira WPtel: [phone] [facility] (15 min) Moderate 01/12/2018 Patient Education: Patient Medication Summary Completed 01/12/2018 Appointment: Kailee Moreira WPtel: [facility] [place] (15 min) Moderate 12/02/2017 Visit Plan: Headache - recommended patient to use PRN Fioricet for headaches - call if not improving. 10/12/2017 Appointment: Kailee Moreira WPtel: [phone] [facility] (15 min) Moderate 10/12/2017 Patient Education: Patient [...] apnea - order humidification for cpap - [place] home patient/[facility]- find out if they need [...] home. 08/06/2017 Appointment: Kailee Moreira WPtel: [phone] [facility] (15 min) Moderate 08/06/2017 Patient Education: Patient Medication Summary Completed 08/06/2017 Care Plan: Comp Metabolic Pending 08/06/2017 Care Plan: Tsh Pending 08/06/2017 Care Plan: Free T4 Pending 08/06/2017 Care Plan: Lipid Pending 08/06/2017 Care Plan: Cbc With Differential Pending 08/06/2017 Appointment: Kailee Moreira WPtel: [facility] [place] (15 min) Moderate 07/21/2017 Visit [...] stop lisinopril. 05/13/2017 Appointment: Kailee Moreira WPtel: [phone] [facility] (15 min) Moderate 05/13/2017 Patient Education: Patient Medication Summary Completed 05/13/2017 Patient Education: Hypertension Completed 05/13/2017 Appointment: [phone] ([facility] min) Moderate 05/06/2017 Visit Plan: [...] surrogate. 03/19/2017 App[facility]ment[phone] [facility] - Annual Wellness Visit 03/19/2017 Patient [...] of control. p hysical therapy at [facility] - water therapy for back eeg - needs ordered at hospital. 03/18/2017 Appointment: [phone] (15 min) Moderate 03/18/2017 Patient Education: [...] improve. 01/27/2017 Appointment: Kailee Moreira WPtel: [phone] [facility] (15 min) Moderate 01/27/2017 Patient Education: Patient Medication Summary Completed 01/27/2017 Patient Education: Hypertension Completed 01/27/2017 Visit Plan: Sinusitis - Pt has acut e infection - pain in face, maxillary region, Pt informed to use decongestant, RX given to patient, sinus rinses also recommended. Call if symptoms do not show improvement. 12/29/2016 Appointment: Marixa Lakhani WPtel: [phone] [phone] [place] (30 min) Complex 12/29/2016 Patient [...] control. 11/19/2016 Appointment: Kailee Moreira WPtel: [phone] [facility] (15 min) Moderate 11/19/2016 Patient Education: [...] improved. 08/13/2016 Appointment: Kailee Moreira WPtel: [phone] [facility] [place] (15 min) Moderate 08/13/2016 Patient Education: Patient Medication Summary Completed 08/13/2016 Patient Education: Hypertension Completed 08/13/2016 Appointment: Kailee Moreira WPtel: [facility] [place] ([facility] min) Complex 07/31/2016 Visit Plan: [...] of control. 07/03/2016 Appointment: Kailee Moreira WPtel: [facility] [place] (15 min) Moderate 07/03/2016 Patient Education: Patient Medication Summary Completed 07/03/2016 Patient Education: Hypertension Completed 07/03/2016 Visit Plan: Cdiff colitis - pt to h ave repeat testing - if positive will have to repeat treatment. Continue with probiotic. Lymes disease - continue with treatment per Dr. Carrillo. alex sample x 18 days given to patient. 05/07/2016 Appointment: Kailee Moreira WPtel: [facility] [place] [place] (15 min) Moderate 05/07/2016 Patient Education: Patient Medication Summary Completed 05/07/2016 Visit Plan: Diarrhea - suspect the diarrhea is Cdiff related - check stool and treat with flagyl, probiotic to increase to three times daily - continue to hold iv antibiotic. Lyme disease - treating with iv antibiotics - on hold while she has diarrhea. 04/08/2016 Appointment: Kailee Moreira WPtel: [facility] [place] [place] (15 min) Moderate 04/08/2016 Patient Education: Patient Medication Summary Completed 04/08/2016 Appointment: Kailee Moreira WPtel: [facility] [place] [place] (15 min) Moderate 04/03/2016 Visit Plan: [...] Completed 03/11/2016 Appointment: [phone] (15 min) Moderate 01/24/2016 Visit Plan: [...] of control. 12/27/2015 Appointment: [phone] (15 min) Moderate 12/27/2015 Patient Education: [...] not improve. 06/26/2015 Appointment: Kailee Moreira WPtel: [address] [place], [place] [address] (15 min) Moderate 06/26/2015 Patient Education: Patient [...] spine Lymes disease-sees Dr Carrillo-lymes specialist in [place], [place] CAD-HX [id number]-crxqtyj by Dr Hyde 04/10/2015 Appointment: (S) New [...] rested in the morning when awakening. . Hypertension - wel l controlled - [...] gel to the lateral thighs bilaterally . Medicare Exam - to day we [...] levels of control. physical therapy at [facility] - water therapy for back eeg - needs ordered at hospital. REPEAT MRI SPINE . Hypertension - well [...] spine Lymes disease-sees Dr Carrillo-leilani specialist in [place], [place] CAD-HX wbkh-OTZ-pwrguki by Dr Hyde . Hypothyroidism - p [...] apnea - order humidification for cpap - [place] home patient/[facility]- find out if they need [...] do not resolve or if any worse Tbdcieyll-ODD-pxnnyftd fluids-monitor blood pressure-call if dizziness does not [...] headaches - call if not improving. . Medicare Exam - to day we [...] DOPA paperwork for health care surrogate. . Medicare Exam - to day we [...] intervention needed unless the lesion increases. . Hypothyroidism - p t with chronic [...] with current regimen as symptoms have improved. use two old goats on back and [...]
--- OUTSIDE RECORDS SUMMARY | 2020-05-05 12:16 | XMS REPORT | CCD ---
Author Author Emily Lakhani Organization [facility] Address [address] [place] [address] Phone Care Team Providers Care [facility] [employer] Name Role Phone PP Unavailable CCM Unavailable Summary Purpose Interface Exchange Insurance Providers Payer name Policy type / Coverage type Covered democrat ID Effective Begin Date Effective End Date WPS Medicare Part B Medicare Part B [id number] 2018 Unknown [employer] Medicare Part B [id number] Unknown Family history Mother Diagnosis Age At [...] Retir ed 04/10/[address]: 424562926 Never smoker 04/10/[address]: 631699568 Never drinks alcohol 04/10/2015 Allergies, Adverse Reactions, [...] Date Stop Date Sta tus Fill Instructions Flagyl 500 mg tablet RxNorm: 886261 1 Tablet(s) PO TID 10/06/2018 10/15/2018 Active Flagyl 500 mg tablet RxNorm: 389902 1 Tablet(s) PO TID 10/06/2018 10/05/2018 Inactive cefdinir 300 mg capsule RxNorm: 634335 1 Capsule(s) PO BID 09/29/2018 10/05/2018 Inactive cefdinir 300 mg capsule RxNorm: 881504 1 Capsule(s) PO BID 09/29/2018 09/28/2018 Inactive estradiol 0.01% (0.1 mg/gram) vaginal cream RxNorm: 515481 1 Gram(s) VAG BIW 09/15/2018 03/13/2019 Ac tive Imitrex 50 mg tablet RxNorm: 361703 TAKE WITH ONSET OF MIGRAINE- MAY TAKE AN ADDITIONAL DOSE IF NO RELIEF OF HEADACHE IN 1 HOUR- MAX OF 3 DOSES IN 24 HOURS Tablet(s) 06/14/2018 No Stop Date Active betamethasone gwendolyn te 0.1 % topical cream RxNorm: 085836 1 Application TOP TID 06/01/2018 06/10/2018 In active dexamethasone 4 mg t ablet RxNorm: 518790 1 Tablet(s) PO daily 06/01/2018 06/05/2018 Inactive Kenalog 40 mg/mL sadiq pension for injection RxNorm: 1335627 1.5 Milliliter(s) In j 05/24/2018 05/24/2018 In active amitriptyline 10 mg tablet RxNorm: 102830 1/2 TO 1 TABLET(S) PO QPM 01/21/2018 09/14/2018 Inactive [place] Thyroid 60 mg tablet RxNorm: 018502 1 Tablet(s) PO daily 01/12/2018 01/06/2019 Active carvedilol 3.125 mg tablet RxNorm: 515535 1 Tablet(s) PO BID 10/12/2017 No Stop Date Active Fiorinal-Codeine #3 30 mg-50 mg-325 mg-40 mg capsule RxNorm: 859735 1 Capsule(s) PO BID 10/12/2017 11/10/2017 Inactive progesterone microni zed 100 mg capsule RxNorm: 866150 1 Capsule(s) PO daily on days 1- 25 of each month 10/12/2017 01/11/2018 Inactive [place] Thyroid 90 mg tablet RxNorm: 953639 1/2 Tablet(s) PO melinda y 1/2 TABLET(S) PO DAILY 08/06/2017 01/11/2018 Inactive [place] Thyroid 90 mg tablet RxNorm: 552068 1/2 TABLET(S) PO DAILY 07/14/2017 08/05/2017 Inactive Keppra 500 mg tablet RxNorm: 413002 1 Tablet(s) PO BID 05/13/2017 08/05/2017 Inactive Deplin (algal oil) 1 5 mg-90.314 mg capsule RxNorm: TAKE ONE CAPSULE BY MOUTH O NE TIME DAILY 05/13/2017 01/11/2018 Inactive Keppra 250 mg tablet RxNorm: 981445 1 Tablet(s) PO daily 04/23/2017 04/22/2017 Inactive take 1 tab qd x 1 week then increase to BID Keppra 250 mg tablet RxNorm: 786036 1 Tablet(s) PO daily 04/23/2017 05/12/2017 Inactive take 1 tab qd x 1 week then increase to BID cyclobenzaprine 5 mg tablet RxNorm: 389122 1 Tablet(s) PO TID as needed 02/03/2017 02/22/2017 In active cyclobenzaprine 5 mg tablet RxNorm: 810433 1 Tablet(s) PO TID as needed 02/03/2017 02/02/2017 In active [place] Thyroid 90 mg tablet RxNorm: 704154 1/2 Tablet(s) PO daily 11/19/2016 03/18/2017 Inactive amitriptyline 10 mg tablet RxNorm: 090682 1/2 to 1 Tablet(s) PO QPM 11/19/2016 11/13/2017 Inactive fluconazole 50 mg ta blet RxNorm: 866118 1 Tablet(s) PO daily 08/20/2016 09/02/2016 Inactive [place] Thyroid 90 mg tablet RxNorm: 197338 1/2 Tablet(s) PO daily 08/11/2016 11/18/2016 Inactive Flagyl 500 mg tablet RxNorm: 607255 1 Tablet(s) PO TID 07/28/2016 01/11/2018 Inactive Flagyl 500 mg tablet RxNorm: 874975 1 Tablet(s) PO TID 07/17/2016 07/27/2016 Inactive amitriptyline 10 mg tablet RxNorm: 738685 1/2 to 1 Tablet(s) PO QPM 07/03/2016 10/30/2016 Inactive metronidazole 500 mg tablet RxNorm: 626084 1 Tablet(s) PO QID 07/03/2016 07/12/2016 Inactive amitriptyline 25 mg tablet RxNorm: 250134 1/2 -1 Tablet(s) PO Q HS as needed insomnia 06/26/2016 07/02/2016 Inactive vancomycin 125 mg ca psule RxNorm: 868202 1 Capsule(s) PO QID 06/20/2016 06/29/2016 Inactive [place] Thyroid 30 mg tablet RxNorm: 133040 1.5 Tablet(s) PO daily 06/20/2016 06/19/2016 Inactive [place] Thyroid 30 mg tablet RxNorm: 457573 1.5 Tablet(s) PO daily 06/20/2016 08/10/2016 Inactive fluconazole 50 mg ta blet RxNorm: 495057 1 Tablet(s) PO daily 06/16/2016 08/19/2016 Inactive amitriptyline 25 mg tablet RxNorm: 414411 1/2 -1 Tablet(s) PO Q HS as needed insomnia 06/12/2016 06/11/2016 Inactive amitriptyline 25 mg tablet RxNorm: 319141 1/2 -1 Tablet(s) PO Q HS as needed insomnia 06/12/2016 06/25/2016 Inactive vancomycin 125 mg ca psule RxNorm: 843224 1 Capsule(s) PO QID 06/12/2016 06/19/2016 Inactive fluconazole 50 mg ta blet RxNorm: 618259 1 Tablet(s) PO daily 06/12/2016 06/15/2016 Inactive Diflucan 150 mg tablet RxNorm: 104363 1 Tablet(s) PO daily 06/05/2016 06/09/2016 Inactive Deplin (algal oil) 1 5 mg-90.314 mg capsule RxNorm: 1 Capsule(s) PO daily 06/05/2016 06/04/2016 In active Diflucan 150 mg tablet RxNorm: 424374 1 Tablet(s) PO daily 06/05/2016 06/04/2016 Inactive Deplin (algal oil) 1 5 mg-90.314 mg capsule RxNorm: 1 Capsule(s) PO daily 06/05/2016 05/12/2017 In active nystatin 500,000 uni t tablet RxNorm: 240115 4 Tablet(s) PO daily 05/21/2016 09/17/2016 Inactive Vitamin D3 5,000 uni t tablet RxNorm: 908208 Tablet(s) PO daily 05/07/2016 No Stop Date Active nystatin 500,000 uni t tablet RxNorm: 169397 1 Tablet(s) PO Q4H 05/07/2016 05/20/2016 Inactive fluconazole 100 mg t ablet RxNorm: 131276 1 Tablet(s) PO daily 05/07/2016 06/11/2016 Inactive progesterone microni zed 100 mg capsule RxNorm: 962465 3 Capsule(s) PO daily on days 1- 25 of each month 05/07/2016 2017 Inactive metronidazole 500 mg tablet RxNorm: 005191 1 Tablet(s) PO TID 04/30/2016 05/09/2016 Inactive metronidazole 500 mg tablet RxNorm: 243854 1 Tablet(s) PO TID 04/30/2016 04/29/2016 Inactive vancomycin 125 mg ca psule RxNorm: 059383 1 Capsule(s) PO QID 04/29/2016 05/08/2016 Inactive vancomycin 125 mg ca psule RxNorm: 529305 1 Capsule(s) PO QID 04/29/2016 04/28/2016 Inactive Flagyl 500 mg tablet RxNorm: 407898 1 Tablet(s) PO TID 04/09/2016 04/08/2016 Inactive Flagyl 500 mg tablet RxNorm: 508051 1 Tablet(s) PO TID 04/09/2016 04/22/2016 Inactive carvedilol 3.125 mg tablet RxNorm: 081617 1 Tablet(s) PO BID 04/08/2016 2017 Inactive [place] Thyroid 60 mg tablet RxNorm: 420754 Tablet(s) PO 1 Tablet (s) daily 01/31/2016 06/19/2016 In active Pt request 90 day supply 11/23/2015 11:1 1:54 AM [place] Thyroid 30 mg tablet RxNorm: 221214 1 Tablet(s) daily 01/28/2016 01/30/2016 Inactive Pt request 90 day supply 11/23/2015 11:1 1:54 AM [place] Thyroid 30 mg tablet RxNorm: 649908 1 Tablet(s) daily 01/21/2016 01/27/2016 Inactive Pt request 90 day supply 11/23/2015 11:1 1:54 AM [place] Thyroid 30 mg tablet RxNorm: 505236 Tablet(s) TAKE ONE AN D ONE-HALF (45 MG) TABLET BY MOUTH EVERY DAY 01/02/2016 01/20/2016 Inactive Pt request 90 day supply 11/23/2015 11:11:54 AM Xylocaine 20 mg/mL ( 2 %) injection solution RxNorm: 1466227 2.5 Milliliter(s) In j BID with cefepime 12/27/2015 01/25/2016 Inactive cefepime 1 gram solu tion for injection RxNorm: 8681500 Inj 12/1012/27/2015 Inactive [place] Thyroid 30 mg tablet RxNorm: 280826 TAKE ONE TABLET BY MO UTH EVERY DAY 11/23/2015 01/01/2016 In active Pt request day supply 11/23/2015 11:1 1:54 AM Voltaren 1 % topical gel RxNorm: 179937 2 Gram(s) TOP QID 09/24/2015 12/26/2015 Inactive cyclobenzaprine 10 m g tablet RxNorm: 768748 1 Tablet(s) PO Q6 as needed 08/27/2015 05/06/2016 In active [place] Thyroid 30 mg tablet RxNorm: 966090 1 Tablet(s) PO daily 06/21/2015 06/20/2015 Inactive [place] Thyroid 30 mg tablet RxNorm: 857917 1 Tablet(s) PO daily 06/21/2015 11/22/2015 Inactive Synthroid 25 mcg tablet RxNorm: 103475 1 Tablet(s) PO daily 06/07/2015 06/06/2015 Inactive KASEY-1 Synthroid 25 mcg tablet RxNorm: 574696 1 Tablet(s) PO daily 06/07/2015 06/20/2015 Inactive KASEY-1 ofloxacin 0.3 % ear drops RxNorm: 980712 1-2 Drop(s) OTIC OU Q 4H as needed No Start Date Active Aspirin Low Dose 81 mg tablet,delayed release RxNorm: 389196 1 Tablet(s) PO daily No Start Date Active tyrosine (bulk) powder RxNorm: 1 Miscellaneous dash every am No Start Date Active arginine (L-arginine ) oral RxNorm: 1091 oral No Sta rt Date Active glutathione RxNorm: 4890 miscellaneous No Start Date Active Plaquenil 200 mg tablet RxNorm: 883034 1 Tablet(s) PO BID No Start Date 05/19/2016 Inactive fluconazole 100 mg t ablet RxNorm: 608321 1/2 Tablet(s) PO daily No Start Date 05/06/2016 Inactive fluconazole 150 mg t ablet RxNorm: 034992 1 Tablet(s) PO QW x4 No Start Date 12/26/2015 Inactive progesterone microni zed 100 mg capsule RxNorm: 675532 2 Capsule(s) PO daily No Start Date 05/06/2016 Inactive nystatin 500,000 uni t tablet RxNorm: 050761 1 Tablet(s) PO QID No Start Date 05/06/2016 Inactive cyclobenzaprine 10 m g tablet RxNorm: 389406 1 Tablet(s) PO Q6 as needed No Start Date 08/26/2015 Inactive vitamin K oral RxNorm: 8308 oral No Start Date 12/26/2015 Inactive carvedilol 3.125 mg tablet RxNorm: 518946 1 Tablet(s) PO daily No Start Date 04/07/2016 Inactive lisinopril 5 mg tablet RxNorm: 187876 1 Tablet(s) PO daily No Start Date 05/12/2017 Inactive azithromycin 250 mg tablet RxNorm: 958896 1 Tablet(s) PO daily will incrase to 2 per day No Start Date 12/26/2015 Inactive Probiotic 4X oral RxNorm: 8259029 oral No Start Date 01/07/2016 Inactive Imitrex 50 mg tablet RxNorm: 130846 TAKE WITH ONSET OF MIGRAINE- MAY TAKE AN ADDITIONAL DOSE IF NO RELIEF OF HEADACHE IN 1 HOUR- MAX OF 3 DOSES IN 24 HOURS No Start Date 06/13/2018 Inactive Vitamin D3 1,000 uni t tablet RxNorm: 542865 Tablet(s) PO daily No Start Date 05/06/2016 Inactive progesterone microni zed 100 mg capsule RxNorm: 506415 3 Capsule(s) PO daily rx from [facility] No Start Date 12/26/2015 Inactive lorazepam 0.5 mg tablet RxNorm: 518393 1/2-1 Tablet(s) PO daily as needed No Start Date 03/10/2016 Inactive Multiple Vitamin oral RxNorm: 86288 oral No Start Date 05/06/2016 Inactive Medication Administered Medication Codes Instruc tions Start Date Status Kenalog 40 mg/mL suspension for injection RxNorm: 3698597 1.5Milliliter 05/24/2018 No longer Active cefepime 1 gram solution for injection RxNorm: 0642026 12/27/2015 No longer A ctive Immunizations No [...] 32.9 % 06/14/2018 Cbc With Differential Ord2 [place]% 13.9 % 06/14/2018 Cbc With Differential Ord2 [...] 1.40 K/ul 06/14/2018 Cbc With Differential Ord2 [place] ABS# 0.6 K/ul 06/14/2018 Cbc With Differential Ord2 Eos ABS# 0.2 K/ul 06/14/2018 Cbc With Differential Ord2 Baso ABS# 0.0 K/ul 06/14/2018 Free T4 Zut073 FREE T4 0.66 ng/dL 06/14/2018 Tsh Ord6 TSH (3rd IS) 2.94 uIU/mL 06/14/2018 Lipid Ord30 CHOL 242 mg/dL 06/14/2018 Lipid Ord30 HDL 85.0 mg/dl 06/14/2018 Lipid Ord30 TRIG 83 mg/dL 06/14/2018 Lipid Ord30 LDL 140 mg/dL 06/14/2018 Lipid Ord30 C/HDL 2.8 Ratio 06/14/2018 Comp Metabolic Uec593 NA 145 mEq/L 06/14/2018 Comp Metabolic Dfn649 K 4.0 mEq/L 06/14/2018 Comp Metabolic Bnh978 CL 106 mEq/L 06/14/2018 Comp Metabolic Dlz881 CO2 31.0 mEq/L 06/14/2018 Comp Metabolic Dxy090 AN ION GAP 12 06/14/2018 Comp Metabolic Ild075 GL UCOSE 88 mg/dL 06/14/2018 Comp Metabolic Vwn086 Cr eat 0.7 mg/dL 06/14/2018 Comp Metabolic Vhq569 eG FR 92 ml/min/1.73m2 06/14 Comp Metabolic Wri356 BUN 9 mg/dL 06/14/2018 Comp Metabolic Cjg377 B/ C Ratio 13.6 Ratio 06/14/2018 Comp Metabolic Som737 CA LCIUM 9.0 mg/dL 06/14/2018 Comp Metabolic Rgn257 AL K PHOS 36 U/L 06/14/2018 Comp Metabolic Oap351 T(SGOT) 21 U/L 06/14/2018 Comp Metabolic Irt937 AL T(SGPT) 22 U/L 06/14/2018 Comp Metabolic Fdb350 BI LI T 0.3 mg/dL 06/14/2018 Comp Metabolic Eij011 AL BUMIN 3.8 g/dL 06/14/2018 Comp Metabolic Eoh752 TP RO 5.8 g/dL 06/14/2018 Comp Metabolic Zdw417 GL OB 2.0 g/dL 06/14/2018 Comp Metabolic Ssn989 A/ G Ratio 2.0 Ratio 06/14/2018 Comp Metabolic Klb004 Os mo 287 mOsmo 06/14/2018 Lipid Ord30 CHOL 246 mg/dL 01/05/2018 Lipid Ord30 HDL 79.0 mg/dl 01/05/2018 Lipid Ord30 TRIG 124 mg/dL 01/05/2018 Lipid Ord30 LDL 142 mg/dL 01/05/2018 Lipid Ord30 C/HDL 3.1 Ratio 01/05/2018 Free T4 Mhw406 FREE T4 0.63 ng/dL 01/05/2018 Tsh Ord6 TSH (3rd IS) 1.48 uIU/mL 01/05/2018 Tsh Ord6 hTSH II 2.03 uIU/mL 08/07/2017 Free T4 Fdq235 FREE T4 0.64 ng/dL 08/07/2017 Comp Metabolic Zdb416 NA 142 mEq/L 08/07/2017 Comp Metabolic Rsn367 K 4.1 mEq/L 08/07/2017 Comp Metabolic Zem751 CL 105 mEq/L 08/07/2017 Comp Metabolic Suu686 CO2 27.0 mEq/L 08/07/2017 Comp Metabolic Tpn156 AN ION GAP 14 08/07/2017 Comp Metabolic Xmq926 GL UCOSE 89 mg/dL 08/07/2017 Comp Metabolic Xrj009 Cr eat 0.7 mg/dL 08/07/2017 Comp Metabolic Cvs151 eG FR 86 ml/min/1.73m2 08/07 Comp Metabolic Yrl524 BUN 16 mg/dL 08/07/2017 Comp Metabolic Lqw818 B/ C Ratio 22.9 Ratio 08/07/2017 Comp Metabolic Iqb989 CA LCIUM 9.8 mg/dL 08/07/2017 Comp Metabolic Xko109 AL K PHOS 41 U/L 08/07/2017 Comp Metabolic Kmd671 T(SGOT) 26 U/L 08/07/2017 Comp Metabolic Fpi933 AL T(SGPT) 21 U/L 08/07/2017 Comp Metabolic Cty256 BI LI T 0.5 mg/dL 08/07/2017 Comp Metabolic Umr271 AL BUMIN 4.3 g/dL 08/07/2017 Comp Metabolic Oyc576 TP RO 6.6 g/dL 08/07/2017 Comp Metabolic Hey476 GL OB 2.3 g/dL 08/07/2017 Comp Metabolic Ayu890 A/ G Ratio 1.9 Ratio 08/07/2017 Comp Metabolic Tlu869 Os mo 284 mOsmo 08/07/2017 Cbc With Differential Ord2 WBC 4.25 K/ul 08/07/2017 Cbc With Differential Ord2 RBC 4.66 M/ul 08/07/2017 Cbc With Differential Ord2 HGB 14.1 g/dl 08/07/2017 Cbc With Differential Ord2 HCT 42.1 % 08/07/2017 Cbc With Differential Ord2 Neut% 45.1 % 08/07/2017 Cbc With Differential Ord2 Lymph% 35.1 % 08/07/2017 Cbc With Differential Ord2 MCV 90.3 fl 08/07/2017 Cbc With Differential Ord2 [place]% 13.9 % 08/07/2017 Cbc With Differential Ord2 MCH 30.3 pg 08/07/2017 Cbc With Differential Ord2 MCHC 33.5 pg 08/07/2017 Cbc With Differential Ord2 Eos% 5.4 % 08/07/2017 Cbc With Differential Ord2 PLT 271 K/ul 08/07/2017 Cbc With Differential Ord2 Baso% 0.5 % 08/07/2017 Cbc With Differential Ord2 Neut ABS# 1.92 K/ul 08/07/2017 Cbc With Differential Ord2 RDW 14.5 % 08/07/2017 Cbc With Differential Ord2 Lymph ABS# 1.49 K/ul 08/07/2017 Cbc With Differential Ord2 [place] ABS# 0.6 K/ul 08/07/2017 Cbc With Differential Ord2 Eos ABS# 0.2 K/ul 08/07/2017 Cbc With Differential Ord2 Baso ABS# 0.0 K/ul 08/07/2017 Lipid Ord30 CHOL 231 mg/dL 08/07/2017 Lipid Ord30 HDL 86.0 mg/dl 08/07/2017 Lipid Ord30 TRIG 82 mg/dL 08/07/2017 Lipid Ord30 LDL 129 mg/dL 08/07/2017 Lipid Ord30 C/HDL 2.7 Ratio 08/07/2017 Free T4 Eko466 FREE T4 0.80 ng/dL 11/20/2016 Tsh Ord6 hTSH II 1.35 uIU/mL 11/20/2016 Lipid Ord30 CHOL 189 mg/dL 11/20/2016 Lipid Ord30 HDL 81.0 mg/dl 11/20/2016 Lipid Ord30 TRIG 77 mg/dL 11/20/2016 Lipid Ord30 LDL 93 mg/dL 11/20/2016 Lipid Ord30 C/HDL 2.3 Ratio 11/20/2016 Comp Metabolic Gsu908 NA 139 mEq/L 11/20/2016 Comp Metabolic Kku892 K 3.9 mEq/L 11/20/2016 Comp Metabolic Ofs725 CL 103 mEq/L 11/20/2016 Comp Metabolic Nci694 CO2 30.0 mEq/L 11/20/2016 Comp Metabolic Ysb084 AN ION GAP 10 11/20/2016 Comp Metabolic Mob075 GL UCOSE 85 mg/dL 11/20/2016 Comp Metabolic Gyh369 Cr eat 0.7 mg/dL 11/20/2016 Comp Metabolic Zuh221 eG FR 93 ml/min/1.73m2 11/20 Comp Metabolic Oek639 BUN 12 mg/dL 11/20/2016 Comp Metabolic Vuc361 B/ C Ratio 18.2 Ratio 11/20/2016 Comp Metabolic Wju314 CA LCIUM 9.1 mg/dL 11/20/2016 Comp Metabolic Pon192 AL K PHOS 34 U/L 11/20/2016 Comp Metabolic Fgs161 T(SGOT) 18 U/L 11/20/2016 Comp Metabolic Oju506 AL T(SGPT) 14 U/L 11/20/2016 Comp Metabolic Oox318 BI LI T 0.5 mg/dL 11/20/2016 Comp Metabolic Tmx832 AL BUMIN 4.2 g/dL 11/20/2016 Comp Metabolic Mol687 TP RO 6.3 g/dL 11/20/2016 Comp Metabolic Kyo827 GL OB 2.1 g/dL 11/20/2016 Comp Metabolic Qvo369 A/ G Ratio 2.0 Ratio 11/20/2016 Comp Metabolic Atz204 Os mo 277 mOsmo 11/20/2016 Cbc With Differential Ord2 WBC 4.46 K/ul [...] 30.5 pg 11/20/2016 Cbc With Differential Ord2 [place]% 10.8 % 11/20/2016 Cbc With Differential Ord2 [...] 1.62 K/ul 11/20/2016 Cbc With Differential Ord2 [place] ABS# 0.5 K/ul 11/20/2016 Cbc With Differential Ord2 Eos ABS# 0.2 K/ul 11/20/2016 Cbc With Differential Ord2 Baso ABS# 0.0 K/ul 11/20/2016 Testosterone Free Direct [id number] FREE TESTOSTERONE 0.7 pg/mL 10/06/2016 Cortisol 573100 CORTISOL 23 ug/dL 10/03/2016 Estradiol 457081 ESTRADI OL 5.9 pg/mL 10/03/2016 Progesterone Edq518 Prog 17.38 ng/mL 10/01/2016 Tsh Ord6 hTSH II 0.99 uIU/mL 08/13/2016 Free T4 Xyk240 FREE T4 0.66 ng/dL 08/13/2016 Testosterone Free Direct 388777 FREE TESTOSTERONE <0.2 pg/mL 07/05/2016 Estradiol 640483 ESTRADI OL <5.0 pg/mL 07/03/2016 Progesterone Hhw816 Prog 23.37 ng/mL 07/02/2016 Tsh Ord6 hTSH II 0.24 uIU/mL 06/17/2016 Free T4 Npj590 FREE T4 0.86 ng/dL 06/17/2016 Estradiol 304752 ESTRADI OL <5.0 pg/mL 05/21/2016 Cbc With Differential Ord2 WBC 4.63 K/ul 05/20/2016 Cbc With Differential Ord2 RBC 4.30 M/ul 05/20/2016 Cbc With Differential Ord2 HGB 13.0 g/dl 05/20/2016 Cbc With Differential Ord2 Neut% 64.7 % 05/20/2016 Cbc With Differential Ord2 HCT 38.6 % 05/20/2016 Cbc With Differential Ord2 Lymph% 18.4 % 05/20/2016 Cbc With Differential Ord2 MCV 89.8 fl 05/20/2016 Cbc With Differential Ord2 [place]% 13.0 % 05/20/2016 Cbc With Differential Ord2 MCH 30.2 pg 05/20/2016 Cbc With Differential Ord2 MCHC 33.7 pg 05/20/2016 Cbc With Differential Ord2 Eos% 3.5 % 05/20/2016 Cbc With Differential Ord2 PLT 224 K/ul 05/20/2016 Cbc With Differential Ord2 Baso% 0.4 % 05/20/2016 Cbc With Differential Ord2 Neut ABS# 3.00 K/ul 05/20/2016 Cbc With Differential Ord2 RDW 15.7 % 05/20/2016 Cbc With Differential Ord2 Lymph ABS# 0.85 K/ul 05/20/2016 Cbc With Differential Ord2 [place] ABS# 0.6 K/ul 05/20/2016 Cbc With Differential [...] hours from collection if refrigerated) 05/20/2016 Progesterone Rbt430 Prog 8.44 ng/mL 05/20/2016 Comp Metabolic Bkz596 NA 140 mEq/L 05/20/2016 Comp Metabolic Cck516 K 4.1 mEq/L 05/20/2016 Comp Metabolic Nzb127 CL 106 mEq/L 05/20/2016 Comp Metabolic Mfk278 CO2 26.0 mEq/L 05/20/2016 Comp Metabolic Eiy755 AN ION GAP 12 05/20/2016 Comp Metabolic Ola711 GL UCOSE 81 mg/dL 05/20/2016 Comp Metabolic Ixi317 Cr eat 0.5 mg/dL 05/20/2016 Comp Metabolic Ubi118 eG FR 119 ml/min/1.73m2 05/09 Comp Metabolic Axu835 BUN 15 mg/dL 05/20/2016 Comp Metabolic Cvt976 B/ C Ratio 28.3 Ratio 05/20/2016 Comp Metabolic Ufk744 CA LCIUM 8.9 mg/dL 05/20/2016 Comp Metabolic Mlb987 AL K PHOS 36 U/L 05/20/2016 Comp Metabolic Scv776 T(SGOT) 25 U/L 05/20/2016 Comp Metabolic Dqu830 AL T(SGPT) 23 U/L 05/20/2016 Comp Metabolic Uag267 BI LI T 0.4 mg/dL 05/20/2016 Comp Metabolic Kbe514 AL BUMIN 3.7 g/dL 05/20/2016 Comp Metabolic Ksd089 TP RO 5.9 g/dL 05/20/2016 Comp Metabolic Kds608 GL OB 2.2 g/dL 05/20/2016 Comp Metabolic Pzt130 A/ G Ratio 1.7 Ratio 05/20/2016 Comp Metabolic Paf770 Os mo 279 mOsmo 05/20/2016 Testosterone Free Direct 511642 FREE TESTOSTERONE 0.6 pg/mL 05/19/2016 Estradiol 357236 ESTRADI OL <5.0 pg/mL 05/16/2016 Progesterone Wzc110 Prog 9.08 ng/mL 05/15/2016 Cbc With Differential [...] 29.9 pg 05/15/2016 Cbc With Differential Ord2 [place]% 14.1 % 05/15/2016 Cbc With Differential Ord2 MCHC 33.1 pg 05/15/2016 Cbc With Differential Ord2 Eos% 5.8 % 05/15/2016 Cbc With Differential Ord2 PLT 262 K/ul 05/15/2016 Cbc With Differential Ord2 Baso% 0.4 % 05/15/2016 Cbc With Differential Ord2 Neut ABS# 2.13 K/ul 05/15/2016 Cbc With Differential Ord2 RDW 16.3 % 05/15/2016 Cbc With Differential Ord2 Lymph ABS# 1.42 K/ul 05/15/2016 Cbc With Differential Ord2 [place] ABS# 0.6 K/ul 05/15/2016 Cbc With Differential [...] None 05/15/2016 Urinalysis Ord28 U-Yeast NEGATIVE 05/15/2016 Comp Metabolic Ftj052 NA 140 mEq/L 05/15/2016 Comp Metabolic Axs877 K 3.8 mEq/L 05/15/2016 Comp Metabolic Tik844 CL 106 mEq/L 05/15/2016 Comp Metabolic Ouy279 CO2 26.0 mEq/L 05/15/2016 Comp Metabolic Smv241 AN ION GAP 12 05/15/2016 Comp Metabolic Xcb445 GL UCOSE 77 mg/dL 05/15/2016 Comp Metabolic Uke467 Cr eat 0.5 mg/dL 05/15/2016 Comp Metabolic Enp983 eG FR 144 ml/min/1.73m2 05/2016 Comp Metabolic Lqm981 BUN 18 mg/dL 05/15/2016 Comp Metabolic Spk466 B/ C Ratio 40.0 Ratio 05/15/2016 Comp Metabolic Vxw264 CA LCIUM 8.8 mg/dL 05/15/2016 Comp Metabolic Hqn673 AL K PHOS 28 U/L 05/15/2016 Comp Metabolic Cbx319 T(SGOT) 19 U/L 05/15/2016 Comp Metabolic Jdr743 AL T(SGPT) 19 U/L 05/15/2016 Comp Metabolic Uro155 BI LI T 0.5 mg/dL 05/15/2016 Comp Metabolic Exn056 AL BUMIN 3.6 g/dL 05/15/2016 Comp Metabolic Klg101 TP RO 5.6 g/dL 05/15/2016 Comp Metabolic Mse673 GL OB 2.0 g/dL 05/15/2016 Comp Metabolic Dip207 A/ G Ratio 1.8 Ratio 05/15/2016 Comp Metabolic Yqa596 Os mo 280 mOsmo 05/15/2016 Testosterone Free Direct 216169 FREE TESTOSTERONE 0.2 pg/mL 05/09/2016 Estradiol 469114 ESTRADI OL <5.0 pg/mL 05/07/2016 Comp Metabolic Sbn372 NA 141 mEq/L 05/06/2016 Comp Metabolic Zka271 K 3.6 mEq/L 05/06/2016 Comp Metabolic Njw394 CL 107 mEq/L 05/06/2016 Comp Metabolic Xir192 CO2 28.0 mEq/L 05/06/2016 Comp Metabolic Jcu970 AN ION GAP 10 05/06/2016 Comp Metabolic Emw001 GL UCOSE 138 mg/dL 05/06/2016 Comp Metabolic Obt130 Cr eat 0.5 mg/dL 05/06/2016 Comp Metabolic Emq758 eG FR 119 ml/min/1.73m2 04/10 Comp Metabolic Iwa585 BUN 16 mg/dL 05/06/2016 Comp Metabolic Atb375 B/ C Ratio 30.2 Ratio 05/06/2016 Comp Metabolic Fdr231 CA LCIUM 8.9 mg/dL 05/06/2016 Comp Metabolic Wmi446 AL K PHOS 29 U/L 05/06/2016 Comp Metabolic Tfn658 T(SGOT) 20 U/L 05/06/2016 Comp Metabolic Iwq344 AL T(SGPT) 21 U/L 05/06/2016 Comp Metabolic Vkk600 BI LI T 0.4 mg/dL 05/06/2016 Comp Metabolic Nzq725 AL BUMIN 3.6 g/dL 05/06/2016 Comp Metabolic Tbk243 TP RO 5.5 g/dL 05/06/2016 Comp Metabolic Yag446 GL OB 1.9 g/dL 05/06/2016 Comp Metabolic Xun833 A/ G Ratio 1.9 Ratio 05/06/2016 Comp Metabolic Loe529 Os mo 285 mOsmo 05/06/2016 Urinalysis Ord28 [...] 05/06/2016 Urinalysis Ord28 U-Yeast NEGATIVE 05/06/2016 Progesterone Mpo597 Prog 0.98 ng/mL 05/06/2016 Cbc With Differential Ord2 WBC 3.88 K/ul 05/06/2016 Cbc With Differential Ord2 RBC 4.14 M/ul 05/06/2016 Cbc With Differential Ord2 HGB 12.1 g/dl 05/06/2016 Cbc With Differential Ord2 Neut% 55.3 % 05/06/2016 Cbc With Differential Ord2 HCT 37.3 % 05/06/2016 Cbc With Differential Ord2 Lymph% 29.9 % 05/06/2016 Cbc With Differential Ord2 MCV 90.1 fl 05/06/2016 Cbc With Differential Ord2 MCH 29.2 pg 05/06/2016 Cbc With Differential Ord2 [place]% 10.1 % 05/06/2016 Cbc With Differential Ord2 [...] 1.16 K/ul 05/06/2016 Cbc With Differential Ord2 [place] ABS# 0.4 K/ul 05/06/2016 Cbc With Differential [...] 88.9 fl 04/29/2016 Cbc With Differential Ord2 MCH 29.6 pg 04/29/2016 Cbc With Differential Ord2 [place]% 13.1 % 04/29/2016 Cbc With Differential Ord2 [...] 1.42 K/ul 04/29/2016 Cbc With Differential Ord2 [place] ABS# 0.5 K/ul 04/29/2016 Cbc With Differential Ord2 Eos ABS# 0.2 K/ul 04/29/2016 Cbc With Differential Ord2 Baso ABS# 0.0 K/ul 04/29/2016 Comp Metabolic Bft503 NA 141 mEq/L 04/29/2016 Comp Metabolic Kud267 K 4.0 mEq/L 04/29/2016 Comp Metabolic Puu926 CL 108 mEq/L 04/29/2016 Comp Metabolic Vvv568 CO2 27.0 mEq/L 04/29/2016 Comp Metabolic Nsn033 AN ION GAP 10 04/29/2016 Comp Metabolic Xmx001 GL UCOSE 69 mg/dL 04/29/2016 Comp Metabolic Vyv071 Cr eat 0.5 mg/dL 04/29/2016 Comp Metabolic Ons936 eG FR 122 ml/min/1.73m2 04/10 Comp Metabolic Ikz845 BUN 19 mg/dL 04/29/2016 Comp Metabolic Bcn239 B/ C Ratio 36.5 Ratio 04/29/2016 Comp Metabolic Xyk443 CA LCIUM 9.1 mg/dL 04/29/2016 Comp Metabolic Qxf239 AL K PHOS 31 U/L 04/29/2016 Comp Metabolic Qhz697 T(SGOT) 20 U/L 04/29/2016 Comp Metabolic Nlg576 AL T(SGPT) 22 U/L 04/29/2016 Comp Metabolic Yqv201 BI LI T 0.6 mg/dL 04/29/2016 Comp Metabolic Ory194 AL BUMIN 3.8 g/dL 04/29/2016 Comp Metabolic Off281 TP RO 5.9 g/dL 04/29/2016 Comp Metabolic Wst778 GL OB 2.1 g/dL 04/29/2016 Comp Metabolic Lhv299 A/ G Ratio 1.8 Ratio 04/29/2016 Comp Metabolic Klt858 Os mo 282 mOsmo 04/29/2016 Progesterone Jbw650 Prog 5.99 ng/mL 04/29/2016 Urinalysis Ord28 U-Color [...] from collection if refrigerated) 04/25/2016 Comp Metabolic Quh326 NA 138 mEq/L 04/25/2016 Comp Metabolic Fjn530 K 3.6 mEq/L 04/25/2016 Comp Metabolic Vcw403 CL 105 mEq/L 04/25/2016 Comp Metabolic Pey258 CO2 27.0 mEq/L 04/25/2016 Comp Metabolic Mrv955 AN ION GAP 10 04/25/2016 Comp Metabolic Csg840 GL UCOSE 190 mg/dL 04/25/2016 Comp Metabolic Ivi612 Cr eat 0.5 mg/dL 04/25/2016 Comp Metabolic Qqi934 eG FR 128 ml/min/1.73m2 04/09 Comp Metabolic Wkj367 BUN 17 mg/dL 04/25/2016 Comp Metabolic Flr412 B/ C Ratio 34.0 Ratio 04/25/2016 Comp Metabolic Prf166 CA LCIUM 8.7 mg/dL 04/25/2016 Comp Metabolic Ukg815 AL K PHOS 32 U/L 04/25/2016 Comp Metabolic Nyb008 T(SGOT) 23 U/L 04/25/2016 Comp Metabolic Nxm291 AL T(SGPT) 22 U/L 04/25/2016 Comp Metabolic Omq599 BI LI T 0.5 mg/dL 04/25/2016 Comp Metabolic Yld550 AL BUMIN 3.6 g/dL 04/25/2016 Comp Metabolic Xmd267 TP RO 5.5 g/dL 04/25/2016 Comp Metabolic Sro245 GL OB 1.9 g/dL 04/25/2016 Comp Metabolic Btl394 A/ G Ratio 1.9 Ratio 04/25/2016 Comp Metabolic Gec913 Os mo 282 mOsmo 04/25/2016 Cbc With [...] 29.6 pg 04/25/2016 Cbc With Differential Ord2 Inyo% 13.0 % 04/25/2016 Cbc With Differential Ord2 [...] 1.01 K/ul 04/25/2016 Cbc With Differential Ord2 Inyo ABS# 0.4 K/ul 04/25/2016 Cbc With Differential [...] 29.2 pg 04/04/2016 Cbc With Differential Ord2 Inyo% 16.1 % 04/04/2016 Cbc With Differential Ord2 [...] 1.32 K/ul 04/04/2016 Cbc With Differential Ord2 [place] ABS# 0.8 K/ul 04/04/2016 Cbc With Differential Ord2 Eos ABS# 0.2 K/ul 04/04/2016 Cbc With Differential Ord2 Baso ABS# 0.0 K/ul 04/04/2016 Comp Metabolic Kdq291 NA 140 mEq/L 04/04/2016 Comp Metabolic Hwh477 K 4.1 mEq/L 04/04/2016 Comp Metabolic Ovt360 CL 106 mEq/L 04/04/2016 Comp Metabolic Mij024 CO2 27.0 mEq/L 04/04/2016 Comp Metabolic Zkl299 AN ION GAP 11 04/04/2016 Comp Metabolic Hzg748 GL UCOSE 71 mg/dL 04/04/2016 Comp Metabolic Cfn598 Cr eat 0.5 mg/dL 04/04/2016 Comp Metabolic Xbi118 eG FR 131 ml/min/1.73m2 03/10 Comp Metabolic Udf011 BUN 14 mg/dL 04/04/2016 Comp Metabolic Zrx622 B/ C Ratio 28.6 Ratio 04/04/2016 Comp Metabolic Wnr956 CA LCIUM 9.1 mg/dL 04/04/2016 Comp Metabolic Bnu481 AL K PHOS 42 U/L 04/04/2016 Comp Metabolic Use248 T(SGOT) 18 U/L 04/04/2016 Comp Metabolic Veb672 AL T(SGPT) 17 U/L 04/04/2016 Comp Metabolic Uxx207 BI LI T 0.4 mg/dL 04/04/2016 Comp Metabolic Bik226 AL BUMIN 3.8 g/dL 04/04/2016 Comp Metabolic Yzw349 TP RO 6.0 g/dL 04/04/2016 Comp Metabolic Kkx812 GL OB 2.2 g/dL 04/04/2016 Comp Metabolic Vsp846 A/ G Ratio 1.7 Ratio 04/04/2016 Comp Metabolic Bsv885 Os mo 278 mOsmo 04/04/2016 Urinalysis Ord28 [...] refrigerated) 04/04/2016 Urinalysis Ord28 U-Yeast NEGATIVE 04/04/2016 Urinalysis Ord28 U-Color Yellow 03/28/2016 Urinalysis [...] Urinalysis Ord28 U-Yeast NEGATIVE 03/28/2016 Comp Metabolic Eja963 NA 137 mEq/L 03/28/2016 Comp Metabolic Sjo920 K 3.5 mEq/L 03/28/2016 Comp Metabolic Wgu175 CL 105 mEq/L 03/28/2016 Comp Metabolic Lda669 CO2 27.0 mEq/L 03/28/2016 Comp Metabolic Pqc669 AN ION GAP 9 03/28/2016 Comp Metabolic Nwo220 GL UCOSE 174 mg/dL 03/28/2016 Comp Metabolic Luh270 Cr eat 0.5 mg/dL 03/28/2016 Comp Metabolic Pjc099 eG FR 131 ml/min/1.73m2 03/10 Comp Metabolic Puz273 BUN 13 mg/dL 03/28/2016 Comp Metabolic Tux491 B/ C Ratio 26.5 Ratio 03/28/2016 Comp Metabolic Uvl869 CA LCIUM 8.7 mg/dL 03/28/2016 Comp Metabolic Wup147 AL K PHOS 31 U/L 03/28/2016 Comp Metabolic Fif332 T(SGOT) 20 U/L 03/28/2016 Comp Metabolic Xor694 AL T(SGPT) 19 U/L 03/28/2016 Comp Metabolic Ges017 BI LI T 0.4 mg/dL 03/28/2016 Comp Metabolic Grq274 AL BUMIN 3.5 g/dL 03/28/2016 Comp Metabolic Vju966 TP RO 5.3 g/dL 03/28/2016 Comp Metabolic Yop694 GL OB 1.8 g/dL 03/28/2016 Comp Metabolic Wpv758 A/ G Ratio 2.0 Ratio 03/28/2016 Comp Metabolic Pzo063 Os mo 278 mOsmo 03/28/2016 Cbc With Differential Ord2 WBC 3.43 K/ul 03/28/2016 Cbc With Differential Ord2 RBC 4.02 M/ul 03/28/2016 Cbc With Differential Ord2 HGB 11.9 g/dl 03/28/2016 Cbc With Differential Ord2 Neut% 51.0 % 03/28/2016 Cbc With Differential Ord2 HCT 35.8 % 03/28/2016 Cbc With Differential Ord2 Lymph% 33.2 % 03/28/2016 Cbc With Differential Ord2 MCV 89.1 fl 03/28/2016 Cbc With Differential Ord2 Inyo% 11.7 % 03/28/2016 Cbc With Differential Ord2 [...] 1.14 K/ul 03/28/2016 Cbc With Differential Ord2 [place] ABS# 0.4 K/ul 03/28/2016 Cbc With Differential Ord2 Eos ABS# 0.1 K/ul 03/28/2016 Cbc With Differential Ord2 Baso ABS# 0.0 K/ul 03/28/2016 Cbc With Differential Ord2 New Analyzer Notice Please note new ref ranges s tarting 11-21-2015 due to implemntation of new five part differential hematolgy analyzer. 03/28/2016 Testosterone Free Direct [id number] FREE TESTOSTERONE <0.2 pg/mL 03/13/2016 Estradiol 502486 ESTRADI OL <5.0 pg/mL 03/12/2016 Progesterone Cxk340 Prog 0.56 ng/mL 03/10/2016 Homocyst(E)Ine Plasma 947519 HOMOCYSTEINE, TOTAL 10.9 umol/L 01/18/2016 Mthfr 139572 MTHFR C677T: HETEROZYGOUS MUTATION DETECTED 02/2016 Mthfr 957293 MTHFR A1298 C: HETEROZYGOUS MUTATION DETECTED 01/11/2016 Mthfr 499711 INTERPRETAT ION: 01/11/2016 Iodine Serum 730584 IOD INE, SERUM 131.0 ug/L 01/10/2016 Tsh Ord6 hTSH II 2.11 uIU/mL 01/07/2016 Lipid Ord30 CHOL 204 mg/dL 01/07/2016 Lipid Ord30 HDL 86.0 mg/dl 01/07/2016 Lipid Ord30 TRIG 104 mg/dL 01/07/2016 Lipid Ord30 LDL 97 mg/dL 01/07/2016 Lipid Ord30 C/HDL 2.4 Ratio 01/07/2016 Comp Metabolic Evq798 NA 139 mEq/L 01/07/2016 Comp Metabolic Zpc260 K 4.0 mEq/L 01/07/2016 Comp Metabolic Uia210 CL 104 mEq/L 01/07/2016 Comp Metabolic Ear385 CO2 26.0 mEq/L 01/07/2016 Comp Metabolic Zwl814 AN ION GAP 13 01/07/2016 Comp Metabolic Fvi094 GL UCOSE 86 mg/dL 01/07/2016 Comp Metabolic Cbv438 Cr eat 0.6 mg/dL 01/07/2016 Comp Metabolic Waq544 eG FR 100 ml/min/1.73m2 12/11 Comp Metabolic Rkb161 BUN 18 mg/dL 01/07/2016 Comp Metabolic Qsw827 B/ C Ratio 29.0 Ratio 01/07/2016 Comp Metabolic Txr138 CA LCIUM 9.4 mg/dL 01/07/2016 Comp Metabolic Goi553 AL K PHOS 40 U/L 01/07/2016 Comp Metabolic Hto327 T(SGOT) 20 U/L 01/07/2016 Comp Metabolic Ymy992 AL T(SGPT) 24 U/L 01/07/2016 Comp Metabolic Frx801 BI LI T 0.6 mg/dL 01/07/2016 Comp Metabolic Lbp906 AL BUMIN 4.1 g/dL 01/07/2016 Comp Metabolic Tgh677 TP RO 6.4 g/dL 01/07/2016 Comp Metabolic Xwa634 GL OB 2.3 g/dL 01/07/2016 Comp Metabolic Uks939 A/ G Ratio 1.8 Ratio 01/07/2016 Comp Metabolic Owc402 Os mo 279 mOsmo 01/07/2016 Urine Culture Ucult Prel iminary No Growth Day 1 11/28 Urine Culture Ucult Comp lete No Growth Day 2 11/28 Progesterone Upf079 Prog >40.00 ng/mL 11/26/2015 Urinalysis Ord28 U-Color Yellow 11/26/2015 Urinalysis Ord28 [...] follow 11/26/2015 Urinalysis Ord28 U-Yeast NEGATIVE 11/26/2015 Testosterone Free Direct 990179 FREE TESTOSTERONE 0.6 pg/mL 10/01/2015 Estradiol 189682 ESTRADI OL <5.0 pg/mL 09/26/2015 Urinalysis Ord28 [...] Urinalysis Ord28 U-Yeast NEGATIVE 09/25/2015 Comp Metabolic Uoj053 NA 142 mEq/L 09/25/2015 Comp Metabolic Ref176 K 4.3 mEq/L 09/25/2015 Comp Metabolic Kdn562 CL 110 mEq/L 09/25/2015 Comp Metabolic Scc115 CO2 23.0 mEq/L 09/25/2015 Comp Metabolic Gpj238 AN ION GAP 13 09/25/2015 Comp Metabolic Zfa719 GL UCOSE 76 mg/dL 09/25/2015 Comp Metabolic Dwq880 Cr eat 0.8 mg/dL 09/25/2015 Comp Metabolic Nzu963 eG FR 79 ml/min/1.73m2 09/25 Comp Metabolic Ryr817 BUN 17 mg/dL 09/25/2015 Comp Metabolic Kgo878 B/ C Ratio 22.4 Ratio 09/25/2015 Comp Metabolic Udl931 CA LCIUM 9.4 mg/dL 09/25/2015 Comp Metabolic Wcc227 AL K PHOS 45 U/L 09/25/2015 Comp Metabolic Ziv698 T(SGOT) 20 U/L 09/25/2015 Comp Metabolic Xya242 AL T(SGPT) 18 U/L 09/25/2015 Comp Metabolic Fzl592 BI LI T 0.5 mg/dL 09/25/2015 Comp Metabolic Qoj671 AL BUMIN 4.0 g/dL 09/25/2015 Comp Metabolic Uyn997 TP RO 6.2 g/dL 09/25/2015 Comp Metabolic Joj585 GL OB 2.2 g/dL 09/25/2015 Comp Metabolic Tzk149 A/ G Ratio 1.8 Ratio 09/25/2015 Comp Metabolic Kms049 Os mo 283 mOsmo 09/25/2015 Tsh Ord6 hTSH II 4.05 uIU/mL 09/25/2015 Progesterone Rje687 Prog 21.38 ng/mL 09/25/2015 Free T4 Qhz905 FREE T4 0.78 ng/dL 09/25/2015 Cbc With [...] RDW 14.3 % 09/25/2015 Testosterone Free Direct 798201 FREE TESTOSTERONE 1.2 pg/mL 08/31/2015 Estradiol 866960 ESTRADI OL <5.0 pg/mL 08/29/2015 Progesterone Stl859 Prog 4.37 ng/mL 08/28/2015 Fungal Screen I 156565 * *ASPERGILLUS AB BY ID . 07/23/2015 Fungal Screen I 126939 A SPERGILLUS AB BY ID None Detected 015 Fungal Screen I 556149 * *BLASTOMYCES ANTIBODY BY CF & ID . 07/23/2015 Fungal Screen I 525032 B LASTOMYCES AB,CF <1:8 07/23/2015 Fungal Screen I 031470 B LASTOMYCES AB,ID None Detected 09/14/2 015 Fungal Screen I 370407 * *MAXINE ANTIBODY BY ID . 07/23/2015 Fungal Screen I 768198 C ANDIDA AB BY ID Detected 07/23/2015 Fungal Screen I 981264 * *COCCIDIOIDES ANTIBODIES, IGG & IGM . 07/23/2015 Fungal Screen I 436485 C OCCIDIOIDES AB IGM 0.3 IV 07/23/2015 Fungal Screen I 765547 C OCCIDIOIDES AB IGG 0.4 IV 07/23/2015 Fungal Screen I 871601 * *HISTOPLASMA ANTIBODY BY ID . 07/23/2015 Fungal Screen I 260608 H ISTOPLASMA ABS (ID) None Detected 015 Francisella Tularensis Abs 828706 F. TULARENSIS, IGG 0 U/mL 07/17/2015 Francisella Tularensis Abs 157505 F. TULARENSIS, IGM 0 U/mL 07/17/2015 Vitamin D 25 Oh Fln1260 VITAMIN D, 25 HYDROXY 142.21 ng/mL 07/13/2015 Antistrptolysin-O Qualitative Flu314 ASO Negative 07/12/2015 B12 Kun988 B12 956.00 pg/ml 07/12/2015 Cbc With Differential [...] Ord2 RDW 15.1 % 07/10/2015 Free T4 Hed068 FREE T4 0.79 ng/dL 06/12/2015 Urinalysis Ord28 [...] Ord2 RDW 16.0 % 06/04/2015 Comp Metabolic Kwh250 NA 139 mEq/L 06/04/2015 Comp Metabolic Jwm801 K 3.9 mEq/L 06/04/2015 Comp Metabolic Yed698 CL 108 mEq/L 06/04/2015 Comp Metabolic Cjs644 CO2 26.0 mEq/L 06/04/2015 Comp Metabolic Sdf960 AN ION GAP 9 06/04/2015 Comp Metabolic Iqk096 GL UCOSE 74 mg/dL 06/04/2015 Comp Metabolic Fqq571 Cr eat 0.6 mg/dL 06/04/2015 Comp Metabolic Psm810 eG FR 102 ml/min/1.73m2 05/10 Comp Metabolic Nyg416 BUN 18 mg/dL 06/04/2015 Comp Metabolic Ecg210 B/ C Ratio 29.5 Ratio 06/04/2015 Comp Metabolic Gpx119 CA LCIUM 9.0 mg/dL 06/04/2015 Comp Metabolic Ctp938 AL K PHOS 44 U/L 06/04/2015 Comp Metabolic Wzt056 T(SGOT) 22 U/L 06/04/2015 Comp Metabolic Ckx963 AL T(SGPT) 23 U/L 06/04/2015 Comp Metabolic Wwc591 BI LI T 0.4 mg/dL 06/04/2015 Comp Metabolic Txm595 AL BUMIN 4.0 g/dL 06/04/2015 Comp Metabolic Swi700 TP RO 5.8 g/dL 06/04/2015 Comp Metabolic Zjn132 GL OB 1.8 g/dL 06/04/2015 Comp Metabolic Enh992 A/ G Ratio 2.2 Ratio 06/04/2015 Comp Metabolic Aen300 Os mo 278 mOsmo 06/04/2015 Tsh Ord6 [...] 4: G0439 03/11/2016 THER/PROPH/DIAG INJ SC/IM CPT-4: 57783 12/27/2015 Vital Signs Date Vital 09/15/2018 Blood Pressure 1: 130/70 Code: 8480-6 BMI: 20.6 Code: 90602-6 Heart Rate 1: 75 bpm Height: 5' SpO2: 99% Weight: 105 lbs 8 oz 09/10/2018 Blood Pressure 1: 126/68 Code: 8480-6 BMI: 20.7 Code: 51317-1 Heart Rate 1: 63 bpm Height: 5' SpO2: 96% Waist Measure (cm): 66 cm Weight: 106 lbs 06/01/2018 Blood Pressure 1: 156/76 Code: 8480-6 BMI: 20.1 Code: 00767-4 Heart Rate 1: 68 bpm Height: 5' SpO2: 99% Weight: 103 lbs 05/24/2018 Blood Pressure 1: 120/60 Code: 8480-6 BMI: 20.5 Code: 93087-2 Heart Rate 1: 82 bpm Height: 5' SpO2: 98% Weight: 105 lbs 05/19/2018 Blood Pressure 1: 140/72 Code: 8480-6 BMI: 20.5 Code: 34084-6 Heart Rate 1: 96 bpm Height: 5' SpO2: 98% Weight: 105 lbs 01/12/2018 Blood Pressure 1: 146/78 Code: 8480-6 BMI: 21.1 Code: 80453-8 Heart Rate 1: 85 bpm Height: 5' SpO2: 95% Weight: 108 lbs 10/12/2017 Blood Pressure 1: 138/72 Code: 8480-6 BMI: 21.1 Code: 95891-3 Heart Rate 1: 96 bpm Height: 5' SpO2: 98% Weight: 108 lbs 08/06/2017 Blood Pressure 1: 130/78 Code: 8480-6 BMI: 20.5 Code: 83379-6 Heart Rate 1: 89 bpm Height: 5' SpO2: 98% Weight: 105 lbs 05/13/2017 Blood Pressure 1: 122/70 Code: 8480-6 BMI: 20.5 Code: 28827-2 Heart Rate 1: 80 bpm Height: 5' SpO2: 97% Weight: 105 lbs 03/19/2017 Blood Pressure 1: 138/80 Code: 8480-6 BMI: 20.5 Code: 49094-8 Heart Rate 1: 83 bpm Height: 5' SpO2: 97% Waist Measure (cm): 74 cm Weight: 105 lbs 03/18/2017 Blood Pressure 1: 138/80 Code: 8480-6 BMI: 20.5 Code: 38442-5 Heart Rate 1: 83 bpm Height: 5' SpO2: 97% Weight: 105 lbs 01/27/2017 Blood Pressure 1: 142/68 Code: 8480-6 BMI: 20.5 Code: 75560-1 Heart Rate 1: 69 bpm Height: 5' SpO2: 97% Weight: 105 lbs 12/29/2016 Blood Pressure 1: 154/82 Code: 8480-6 BMI: 20.1 Code: 07405-8 Heart Rate 1: 76 bpm Height: 5' SpO2: 94% Temperature: 37.4 (C ) / 99.4 (F) Weight: 103 lbs 11/19/2016 Blood Pressure 1: 134/74 Code: 8480-6 BMI: 19.7 Code: 31723-4 Heart Rate 1: 64 bpm Height: 5' Weight: 101 lbs 08/13/2016 Blood Pressure 1: 118/56 Code: 8480-6 BMI: 19.5 Code: 50519-7 Heart Rate 1: 64 bpm Height: 5' SpO2: 97% Weight: 100 lbs 07/03/2016 Blood Pressure 1: 120/68 Code: 8480-6 BMI: 19.1 Code: 64373-7 Heart Rate 1: 80 bpm Height: 5' SpO2: 98% Weight: 98 lbs 05/07/2016 Blood Pressure 1: 116/58 Code: 8480-6 BMI: 19.1 Code: 17724-8 Heart Rate 1: 79 bpm Height: 5' SpO2: 98% Weight: 98 lbs 04/08/2016 Blood Pressure 1: 118/58 Code: 8480-6 BMI: 19.0 Code: 71701-6 Heart Rate 1: 78 bpm Height: 5' SpO2: 98% Weight: 97 lbs 8 oz 03/11/2016 Blood Pressure 1: 102/60 Code: 8480-6 BMI: 19.7 Code: 25182-2 Heart Rate 1: 75 bpm Height: 5' SpO2: 94% Waist Measure (cm): 71 cm Weight: 101 lbs 12/27/2015 Blood Pressure 1: 128/72 Code: 8480-6 BMI: 20.2 Code: 74673-5 Heart Rate 1: 95 bpm Height: 5' SpO2: 98% Weight: 103 lbs 8 oz 09/24/2015 Blood Pressure 1: 136/70 Code: 8480-6 BMI: 19.1 Code: 18895-6 Heart Rate 1: 72 bpm Height: 5' SpO2: 97% Weight: 98 lbs 06/26/2015 Blood Pressure 1: 144/64 Code: 8480-6 BMI: 18.9 Code: 35093-6 Heart Rate 1: 77 bpm Height: 5' SpO2: 98% Weight: 97 lbs 04/10/2015 Blood Pressure 1: 132/88 Code: 8480-6 BMI: 18.9 Code: 58623-1 Heart Rate 1: 83 bpm Height: 5' SpO2: 97% Weight: 97 lbs Functional Status No Functional Status data History of Present Illness Symptom Name Status Resu lt Effective Date Notes hypertension Quality tari delio hypertension 09/15/2018 None hypertension Onset and Resolution ongoing 09/15/2018 None hypertension Onset of Symptom during adulthood 09/15/2018 None hypertension Alleviating Factors medication 09/15/2018 None 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 P ATIENT, LEVEL IV Diagnosis: Essential (primary) hypertension[ICD10: I10] Diagnosis: Atrophy of thyroid (acquired)[ICD10: E03.4] Diagnosis: Low back pain[ICD10: M54.5] Diagnosis: Other specified noninflammatory disorders of vagina[ICD10: N89.8] Kailee Moreira MD, [facility] CPT-4: 60967 09/15/2018 ([id number]) 31164 EST. P ATIENT, LEVEL III Diagnosis: Dizziness and giddiness[ICD10: R42] Diagnosis: Allergic contact dermatitis due to plants, except food[ICD10: L23.7] Marixa Moreira MD, [facility] CPT-4: 96278 06/01/2018 ([id number]) 76111 EST. P ATIENT, LEVEL III Diagnosis: Allergic contact dermatitis due to plants, except food[ICD10: L23.7] Marixa Moreira MD, [facility] CPT-4: 67694 05/24/2018 ([id number]) 69167 EST. P ATIENT, LEVEL IV Diagnosis: Essential (primary) hypertension[ICD10: I10] Diagnosis: Atrophy of thyroid (acquired)[ICD10: E03.4] Diagnosis: Obstructive sleep apnea (adult) (pediatric)[ICD10: G47.33] Kailee Moreira MD, C CPT-4: 81391 05/19/2018 ([id number]) 85726 EST. P ATIENT, LEVEL IV Diagnosis: Essential (primary) hypertension[ICD10: I10] Diagnosis: Atrophy of thyroid (acquired)[ICD10: E03.4] Diagnosis: Low back pain[ICD10: M54.5] Kailee Moreira MD, [facility] CPT-4: 52541 01/12/2018 ([id number]) 08485 EST. P ATIENT, LEVEL III Diagnosis: Headache[ICD10: R51] Kailee Moreira MD, [facility] CPT-4: 46140 10/12/2017 ([id number]) 63139 EST. P ATIENT, LEVEL IV Diagnosis: Atrophy of thyroid (acquired)[ICD10: E03.4] Diagnosis: Essential (primary) hypertension[ICD10: I10] Diagnosis: Obstructive sleep apnea (adult) (pediatric)[ICD10: G47.33] Kailee Moreira MD, C CPT-4: 28166 08/06/2017 ([id number]) 78132 EST. 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 P ATIENT, LEVEL IV Diagnosis: Atrophy of thyroid (acquired)[ICD10: E03.4] Diagnosis: Essential (primary) hypertension[ICD10: I10] Diagnosis: Encounter for screening for other musculoskeletal disorder[ICD10: Z13.828] Diagnosis: Low back pain[ICD10: M54.5] Diagnosis: Transient alteration of awareness[ICD10: R40.4] Kailee Moreira MD, C CPT-4: 66318 03/18/2017 ([id number]) 86986 EST. P ATIENT, LEVEL IV Diagnosis: Atrophy of thyroid (acquired)[ICD10: E03.4] Diagnosis: Essential (primary) hypertension[ICD10: I10] Diagnosis: Low back pain[ICD10: M54.5] Kailee Moreira MD, [facility] CPT-4: 23703 01/27/2017 ([id number]) 43447 EST. P ATIENT, LEVEL III Diagnosis: Acute recurrent maxillary sinusitis[ICD10: J01.01] Marixa Moreira MD, [facility] CPT-4: 49562 12/29/2016 ([id number]) 23869 EST. P ATIENT, LEVEL IV Diagnosis: Atrophy of thyroid (acquired)[ICD10: E03.4] Diagnosis: Essential (primary) hypertension[ICD10: I10] Kailee Moreira MD, [facility] CPT-4: 02083 11/19/2016 ([id number]) 33521 EST. P ATIENT, LEVEL IV Diagnosis: Atrophy of thyroid (acquired)[ICD10: E03.4] Diagnosis: Enterocolitis due to Clostridium difficile[ICD10: A04.7] Diagnosis: Essential (primary) hypertension[ICD10: I10] Kailee Moreira MD, [facility] CPT-4: 89550 08/13/2016 ([id number]) 78498 EST. P ATIENT, LEVEL IV Diagnosis: Essential (primary) hypertension[ICD10: I10] Diagnosis: Enterocolitis due to Clostridium difficile[ICD10: A04.7] Diagnosis: Hypothyroidism, unspecified[ICD10: E03.9] Diagnosis: Low back pain[ICD10: M54.5] Kailee Moreira MD, [facility] CPT-4: 55294 07/03/2016 ([id number]) 66334 EST. P ATIENT, LEVEL IV Diagnosis: Enterocolitis due to Clostridium difficile[ICD10: A04.7] Diagnosis: Lyme disease, unspecified[ICD10: A69.20] Kailee Moreira MD, C CPT-4: 58630 05/07/2016 ([id number]) 08361 EST. P ATIENT, LEVEL IV Diagnosis: Generalized abdominal rigidity[ICD10: R19.37] Diagnosis: Diarrhea, unspecified[ICD10: R19.7] Diagnosis: Lyme disease, unspecified[ICD10: A69.20] Kailee Moreira MD, [facility] CPT-4: 04943 04/08/2016 ([id number]) 06597 EST. P ATIENT, LEVEL IV Diagnosis: Hypothyroidism, unspecified[ICD10: E03.9] Diagnosis: Lyme disease, unspecified[ICD10: A69.20] Diagnosis: Tachycardia, unspecified[ICD10: R00.0] Kailee Moreira MD, [facility] CPT-4: 81116 12/27/2015 ([id number]) 03595 EST. P ATIENT, LEVEL III Diagnosis: Essential (primary) hypertension[ICD10: I10] Diagnosis: Benign lipomatous neoplasm of skin and subcutaneous tissue of other sites[ICD10: D17.39] Diagnosis: Low back pain[ICD10: M54.5] Kailee Moreira MD, [facility] CPT-4: 60462 09/24/2015 ([id number]) 42984 EST. 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 09/15/2018 Appointment: Kailee Moreira WPtel: [facility] 30 min appointments only in this [...] care surrogate. 09/10/2018 Appointment: Kiersten Armando WPtel: [facility] [facility] - Annual Wellness Visit 09/10/2018 Patient Education: Patient Medication Summary Completed 09/10/2018 Appointment: Injection 06/14/2018 Visit Plan: Contact dermatitis-disc ussed with Dr Moreira -rx for dexamethasone sent to patient's pharmacy and instructed on use-will also send rx for topical betamethsone -instructed patient to call if symptoms do not resolve or if any worse Cxihfzxcu-ONF-heygixpb fluids-monitor blood pressure- call if dizziness does not resolve or if any worse-patient and verbalized understanding 06/01/2018 Appointment: Marixa Lakhani WPtel: [phone] [phone] [place] (15 min) Moderate 06/01/2018 Patient Education: Patient Medication Summary Completed 06/01/2018 Visit Plan: Contact dermatitis due to poison magalys/oak-kenalog injection today- pt is to use topical treatments as directed. Pt is cleanse clothing in hot water with soap, and call if symptoms do not improve or if they worsen. 05/24/2018 Appointment: Marixa Lakhani WPtel: [phone] [phone] [place] (15 min) Moderate 05/24/2018 Patient Education: [...] awakening. 05/19/2018 Appointment: Kailee Moreira WPtel: [facility] (30 min) Complex 05/19/2018 Patient Education: [...] bilaterally 01/12/2018 Appointment: Kailee Moreira WPtel: [facility] [place] (15 min) Moderate 01/12/2018 Patient Education: Patient Medication Summary Completed 01/12/2018 Appointment: Kailee Moreira WPtel: [facility] (15 min) Moderate 12/02/2017 Visit Plan: Headache - recommended patient to use PRN Fioricet for headaches - call if not improving. 10/12/2017 Appointment: Kailee Moreira WPtel: [facility] (15 min) Moderate 10/12/2017 Patient Education: [...] apnea - order humidification for cpap - [place] [facility]- find out if they need [...] home. 08/06/2017 Appointment: Kailee Moreira WPtel[facility] (15 min) Moderate 08/06/2017 Patient Education: Patient Medication Summary Completed 08/06/2017 Care Plan: Comp Metabolic Pending 08/06/2017 Care Plan: Tsh Pending 08/06/2017 Care Plan: Free T4 Pending 08/06/2017 Care Plan: Lipid Pending 08/06/2017 Care Plan: Cbc With Differential Pending 08/06/2017 Appointment: Kailee Moreira WPtel: [facility] (15 min) Moderate 07/21/2017 Visit Plan: [...] nursing staff call dr. schaeffer about aby davidjon Low blood pressure stop lisinopril. 05/13/2017 Appointment: Kailee Moreira WPtel: [facility]5 [facility]66[facility] (15 min) Moderate 05/13/2017 Patient Education: Patient Medication Summary Completed 05/13/2017 Patient Education: Hypertension Completed 05/13/2017 Appointment: Kailee Moreira WPtel: [facility]5 [facility]66[facility] (15 min) Moderate 05/06/2017 Visit Plan: Medicare [...] surrogate. 03/19/2017 Appointment: Kiersten Armando WPtel: [facility] [place] [address] - Annual Wellness Visit 03/19/2017 Patient Education: [...] control. p hysical therapy at [facility] - water therapy for back eeg - needs ordered at hospital. 03/18/2017 Appointment: [phone] (15 min) Moderate 03/18/2017 Patient Education: Patient [...] improve. 01/27/2017 Appointment: [phone] ([facility] min) Moderate 01/27/2017 Patient Education: Patient Medication Summary Completed 01/27/2017 Patient Education: Hypertension Completed 01/27/2017 Visit Plan: Sinusitis - Pt has acut e infection - pain in face, maxillary region, Pt informed to use decongestant, RX given to patient, sinus rinses also recommended. Call if symptoms do not show improvement. 12/29/2016 Appointment: [id number] [place] (30 min) Complex 12/29/2016 [...] control. 11/19/2016 Appointment: Kailee Moreira WPtel: [facility] (15 min) Moderate 11/19/2016 Patient Education: [...] improved. 08/13/2016 Appointment: Kailee Moreira WPtel: [facility] (15 min) Moderate 08/13/2016 Patient Education: Patient Medication Summary Completed 08/13/2016 Patient Education: Hypertension Completed 08/13/2016 Appointment: Kailee Moreira WPtel: [id number] (30 min) Complex 07/31/2016 Visit [...] of control. 07/03/2016 Appointment: Kailee Moreira WPtel: [address] [place], [place] [id number] (15 min) Moderate 07/03/2016 Patient Education: Patient Medication Summary Completed 07/03/2016 Patient Education: Hypertension Completed 07/03/2016 Visit Plan: Cdiff colitis - pt to [facility] ave repeat testing - if positive will have to repeat treatment. Continue with probiotic. Lymes disease - continue with treatment per Dr. Carrillo. alex sample x 18 days given to patient. 05/07/2016 Appointment: Kailee Moreira WPtel: [address] [place] [address] (15 min) Moderate 05/07/2016 Patient Education: Patient Medication Summary Completed 05/07/2016 Visit Plan: Diarrhea - suspect the diarrhea is Cdiff related - check stool and treat with flagyl, probiotic to increase to three times daily - continue to hold iv antibiotic. Lyme disease - treating with iv antibiotics - on hold while she has diarrhea. 04/08/2016 Appointment: Kailee Moreira WPtel: [address] [place], [place] [id number] (15 min) Moderate 04/08/2016 Patient Education: Patient Medication Summary Completed 04/08/2016 Appointment: Kailee Moreira WPtel: [address] [place], [place] [id number] (15 min) Moderate 04/03/2016 Visit Plan: Medicare [...] Completed 03/11/2016 Appointment: Kailee Moreira [facility]Ptel[facility] [id number] [id number] (15 min) Moderate 01/24/2016 Visit [...] of control. 12/27/2015 Appointment: Kailee Moreira WPtel[facility] [phone] [id number] (15 min) Moderate 12/27/2015 Patient [...] improve. 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 physical therapy at [facility] - water therapy for back eeg [...] spine Lymes disease-sees Dr Carrillo-leilani specialist in [place], [place] CAD-HX [id number] by Dr Hyde . Hypothyroidism - p [...] apnea - order humidification for cpap - [facility]- find out if they need [...] do not resolve or if any worse Soeodlttr-[id number]-[id number] fluids-monitor blood pressure-call if dizziness does not [...] rested in the morning when awakening. . Contact dermatitis due to poison magalys/oak-kenalog [...] aby smith Low blood pressure stop lisinopril. DOXYCYCLINE 100MG TW ICE DAILY X 7 DAYS . Sinusitis - Pt has acute infection - p ain in face, maxillary region, Pt informed to use decongestant, RX given to patient, sinus rinses also recommended. Call if symptoms do not show improvement. use two old goats on back and [...]
--- OUTSIDE RECORDS SUMMARY | 2020-05-05 12:18 | XMS REPORT | CCD ---
Author Author Emily Lakhani Organization [facility] Address [address] [place] [address] Phone Care Team Providers Care Hearing And Speech Assistant Name Role Phone PP Unavailable CCM Unavailable Summary Purpose Interface Exchange Insurance Providers Payer name Policy type / Coverage type Covered constitution party ID Effective Begin Date Effective End Date WPS Medicare Part B Medicare Part B [id number] 2018 Unknown [employer] Medicare Part B [id number] Unknown Family history Mother Diagnosis Age At [...] Retir ed 04/10/[address]: 150989897 Never smoker 04/10/[address]: 019984340 Never drinks alcohol 04/10/2015 Allergies, Adverse Reactions, [...] estradiol 0.01% (0.1 mg/gram) vaginal cream RxNorm: 634706 1 Gram(s) VAG BIW 09/15/2018 03/13/2019 Ac tive Imitrex 50 mg tablet RxNorm: 850718 TAKE WITH ONSET OF MIGRAINE- MAY TAKE AN ADDITIONAL DOSE IF NO RELIEF OF HEADACHE IN 1 HOUR- MAX OF 3 DOSES IN 24 HOURS Tablet(s) 06/14/2018 No Stop Date Active betamethasone gwendolyn te 0.1 % topical cream RxNorm: 795558 1 Application TOP TID 06/01/2018 06/10/2018 In active dexamethasone 4 mg t ablet RxNorm: 165597 1 Tablet(s) PO daily 06/01/2018 06/05/2018 Inactive Kenalog 40 mg/mL sadiq pension for injection RxNorm: 2335158 1.5 Milliliter(s) In j 05/24/2018 05/24/2018 In active amitriptyline 10 mg tablet RxNorm: 049117 1/2 TO 1 TABLET(S) PO QPM 01/21/2018 09/14/2018 Inactive [place] Thyroid 60 mg tablet RxNorm: 006196 1 Tablet(s) PO daily 01/12/2018 01/06/2019 Active carvedilol 3.125 mg tablet RxNorm: 092286 1 Tablet(s) PO BID 10/12/2017 No Stop Date Active Fiorinal-Codeine #3 30 mg-50 mg-325 mg-40 mg capsule RxNorm: 929320 1 Capsule(s) PO BID 10/12/2017 11/10/2017 Inactive progesterone microni zed 100 mg capsule RxNorm: 702713 1 Capsule(s) PO daily on days 1- 25 of each month 10/12/2017 01/11/2018 Inactive [place] Thyroid 90 mg tablet RxNorm: 730412 1/2 Tablet(s) PO melinda y 1/2 TABLET(S) PO DAILY 08/06/2017 01/11/2018 Inactive [place] Thyroid 90 mg tablet RxNorm: 197200 1/2 TABLET(S) PO DAILY 07/14/2017 08/05/2017 Inactive Keppra 500 mg tablet RxNorm: 076120 1 Tablet(s) PO BID 05/13/2017 08/05/2017 Inactive Deplin (algal oil) 1 5 mg-90.314 mg capsule RxNorm: TAKE ONE CAPSULE BY MOUTH O NE TIME DAILY 05/13/2017 01/11/2018 Inactive Keppra 250 mg tablet RxNorm: 139010 1 Tablet(s) PO daily 04/23/2017 04/22/2017 Inactive take 1 tab qd x 1 week then increase to BID Keppra 250 mg tablet RxNorm: 201871 1 Tablet(s) PO daily 04/23/2017 05/12/2017 Inactive take 1 tab qd x 1 week then increase to BID cyclobenzaprine 5 mg tablet RxNorm: 665245 1 Tablet(s) PO TID as needed 02/03/2017 02/22/2017 In active cyclobenzaprine 5 mg tablet RxNorm: 743555 1 Tablet(s) PO TID as needed 02/03/2017 02/02/2017 In active [place] Thyroid 90 mg tablet RxNorm: 126895 1/2 Tablet(s) PO daily 11/19/2016 03/18/2017 Inactive amitriptyline 10 mg tablet RxNorm: 131007 1/2 to 1 Tablet(s) PO QPM 11/19/2016 11/13/2017 Inactive fluconazole 50 mg ta blet RxNorm: 765714 1 Tablet(s) PO daily 08/20/2016 09/02/2016 Inactive [place] Thyroid 90 mg tablet RxNorm: 063698 1/2 Tablet(s) PO daily 08/11/2016 11/18/2016 Inactive Flagyl 500 mg tablet RxNorm: 286488 1 Tablet(s) PO TID 07/28/2016 01/11/2018 Inactive Flagyl 500 mg tablet RxNorm: 189596 1 Tablet(s) PO TID 07/17/2016 07/27/2016 Inactive amitriptyline 10 mg tablet RxNorm: 554231 1/2 to 1 Tablet(s) PO QPM 07/03/2016 10/30/2016 Inactive metronidazole 500 mg tablet RxNorm: 651075 1 Tablet(s) PO QID 07/03/2016 07/12/2016 Inactive amitriptyline 25 mg tablet RxNorm: 710866 1/2 -1 Tablet(s) PO Q HS as needed insomnia 06/26/2016 07/02/2016 Inactive vancomycin 125 mg ca psule RxNorm: 167021 1 Capsule(s) PO QID 06/20/2016 06/29/2016 Inactive [place] Thyroid 30 mg tablet RxNorm: 419987 1.5 Tablet(s) PO daily 06/20/2016 06/19/2016 Inactive [place] Thyroid 30 mg tablet RxNorm: 355717 1.5 Tablet(s) PO daily 06/20/2016 08/10/2016 Inactive fluconazole 50 mg ta blet RxNorm: 119341 1 Tablet(s) PO daily 06/16/2016 08/19/2016 Inactive amitriptyline 25 mg tablet RxNorm: 119902 1/2 -1 Tablet(s) PO Q HS as needed insomnia 06/12/2016 06/11/2016 Inactive amitriptyline 25 mg tablet RxNorm: 555548 1/2 -1 Tablet(s) PO Q HS as needed insomnia 06/12/2016 06/25/2016 Inactive vancomycin 125 mg ca psule RxNorm: 885934 1 Capsule(s) PO QID 06/12/2016 06/19/2016 Inactive fluconazole 50 mg ta blet RxNorm: 524203 1 Tablet(s) PO daily 06/12/2016 06/15/2016 Inactive Diflucan 150 mg tablet RxNorm: 499273 1 Tablet(s) PO daily 06/05/2016 06/09/2016 Inactive Deplin (algal oil) 1 5 mg-90.314 mg capsule RxNorm: 1 Capsule(s) PO daily 06/05/2016 06/04/2016 In active Diflucan 150 mg tablet RxNorm: 852770 1 Tablet(s) PO daily 06/05/2016 06/04/2016 Inactive Deplin (algal oil) 1 5 mg-90.314 mg capsule RxNorm: 1 Capsule(s) PO daily 06/05/2016 05/12/2017 In active nystatin 500,000 uni t tablet RxNorm: 632462 4 Tablet(s) PO daily 05/21/2016 09/17/2016 Inactive Vitamin D3 5,000 uni t tablet RxNorm: 445484 Tablet(s) PO daily 05/07/2016 No Stop Date Active nystatin 500,000 uni t tablet RxNorm: 322464 1 Tablet(s) PO Q4H 05/07/2016 05/20/2016 Inactive fluconazole 100 mg t ablet RxNorm: 746194 1 Tablet(s) PO daily 05/07/2016 06/11/2016 Inactive progesterone microni zed 100 mg capsule RxNorm: 071853 3 Capsule(s) PO daily on days 1- 25 of each month 05/07/2016 2017 Inactive metronidazole 500 mg tablet RxNorm: 707581 1 Tablet(s) PO TID 04/30/2016 05/09/2016 Inactive metronidazole 500 mg tablet RxNorm: 421379 1 Tablet(s) PO TID 04/30/2016 04/29/2016 Inactive vancomycin 125 mg ca psule RxNorm: 603106 1 Capsule(s) PO QID 04/29/2016 05/08/2016 Inactive vancomycin 125 mg ca psule RxNorm: 292081 1 Capsule(s) PO QID 04/29/2016 04/28/2016 Inactive Flagyl 500 mg tablet RxNorm: 103056 1 Tablet(s) PO TID 04/09/2016 04/08/2016 Inactive Flagyl 500 mg tablet RxNorm: 478413 1 Tablet(s) PO TID 04/09/2016 04/22/2016 Inactive carvedilol 3.125 mg tablet RxNorm: 300584 1 Tablet(s) PO BID 04/08/2016 2017 Inactive [place] Thyroid 60 mg tablet RxNorm: 085099 Tablet(s) PO 1 Tablet (s) daily 01/31/2016 06/19/2016 In active Pt request 90 day supply 11/23/2015 11:1 1:54 AM [place] Thyroid 30 mg tablet RxNorm: 865814 1 Tablet(s) daily 01/28/2016 01/30/2016 Inactive Pt request 90 day supply 11/23/2015 11:1 1:54 AM [place] Thyroid 30 mg tablet RxNorm: 195977 1 Tablet(s) daily 01/21/2016 01/27/2016 Inactive Pt request 90 day supply 11/23/2015 11:1 1:54 AM [place] Thyroid 30 mg tablet RxNorm: 757957 Tablet(s) TAKE ONE AN D ONE-HALF (45 MG) TABLET BY MOUTH EVERY DAY 01/02/2016 01/20/2016 Inactive Pt request 90 day supply 11/23/2015 11:11:54 AM Xylocaine 20 mg/mL ( 2 %) injection solution RxNorm: 0451736 2.5 Milliliter(s) In j BID with cefepime 12/27/2015 01/25/2016 Inactive cefepime 1 gram solu tion for injection RxNorm: 8411528 Inj 12/1012/27/2015 Inactive [place] Thyroid 30 mg tablet RxNorm: 034047 TAKE ONE TABLET BY [facility] EVERY DAY 11/23/2015 01/01/2016 In active Pt request 90 day supply 11/23/2015 11:1 1:54 AM Voltaren 1 % topical gel RxNorm: 994924 2 Gram(s) TOP QID 09/24/2015 12/26/2015 Inactive cyclobenzaprine 10 m g tablet RxNorm: 956842 1 Tablet(s) PO Q6 as needed 08/27/2015 05/06/2016 In active [place] Thyroid 30 mg tablet RxNorm: 607763 1 Tablet(s) PO daily 06/21/2015 06/20/2015 Inactive [place] Thyroid 30 mg tablet RxNorm: 178872 1 Tablet(s) PO daily 06/21/2015 11/22/2015 Inactive Synthroid 25 mcg tablet RxNorm: 524498 1 Tablet(s) PO daily 06/07/2015 06/06/2015 Inactive KASE[facility]-1 Synthroid 25 mcg tablet RxNorm: 804954 1 Tablet(s) PO daily 06/07/2015 06/20/2015 Inactive [facility]ASE[facility]-1 ofloxacin 0.3 % ear drops RxNorm: 857391 1-2 Drop(s) OTIC OU Q 4H as needed No Start Date Active Aspirin Low Dose 81 mg tablet,delayed release RxNorm: 718498 1 Tablet(s) PO daily No Start Date Active tyrosine (bulk) powder RxNorm: 1 Miscellaneous dash every am No Start Date Active arginine (L-arginine ) oral RxNorm: 1091 oral No Sta rt Date Active glutathione RxNorm: 4890 miscellaneous No Start Date Active Plaquenil 200 mg tablet RxNorm: 353210 1 Tablet(s) PO BID No Start Date 05/19/2016 Inactive fluconazole 100 mg t ablet RxNorm: 065818 1/2 Tablet(s) PO daily No Start Date 05/06/2016 Inactive fluconazole 150 mg t ablet RxNorm: 373467 1 Tablet(s) PO QW x4 No Start Date 12/26/2015 Inactive progesterone microni zed 100 mg capsule RxNorm: 335934 2 Capsule(s) PO daily No Start Date 05/06/2016 Inactive nystatin 500,000 uni t tablet RxNorm: 014398 1 Tablet(s) PO QID No Start Date 05/06/2016 Inactive cyclobenzaprine 10 m g tablet RxNorm: 475105 1 Tablet(s) PO Q6 as needed No Start Date 08/26/2015 Inactive vitamin K oral RxNorm: 8308 oral No Start Date 12/26/2015 Inactive carvedilol 3.125 mg tablet RxNorm: 887315 1 Tablet(s) PO daily No Start Date 04/07/2016 Inactive lisinopril 5 mg tablet RxNorm: 982398 1 Tablet(s) PO daily No Start Date 05/12/2017 Inactive azithromycin 250 mg tablet RxNorm: 613994 1 Tablet(s) PO daily will incrase to 2 per day No Start Date 12/26/2015 Inactive Probiotic 4X oral RxNorm: 4998560 oral No Start Date 01/07/2016 Inactive Imitrex 50 mg tablet RxNorm: 703882 TAKE WITH ONSET OF MIGRAINE- MAY TAKE AN ADDITIONAL DOSE IF NO RELIEF OF HEADACHE IN 1 HOUR- MAX OF 3 DOSES IN 24 HOURS No Start Date 06/13/2018 Inactive Vitamin D3 1,000 uni t tablet RxNorm: 203967 Tablet(s) PO daily No Start Date 05/06/2016 Inactive progesterone microni zed 100 mg capsule RxNorm: 518726 3 Capsule(s) PO daily rx from [facility] No Start Date 12/26/2015 Inactive lorazepam 0.5 mg tablet RxNorm: 333306 1/2-1 Tablet(s) PO daily as needed No Start Date 03/10/2016 Inactive Multiple Vitamin oral RxNorm: 56300 oral No Start Date 05/06/2016 Inactive Medication Administered Medication Codes Instruc tions Start Date Status Kenalog 40 mg/mL suspension for injection RxNorm: 3250162 1.5Milliliter 05/24/2018 No longer Active cefepime 1 gram solution for injection RxNorm: 6568264 12/27/2015 No longer A ctive Immunizations No [...] Item Item Code Result Date Comp Metabolic Icc480 NA 145 mEq/L 06/14/2018 Comp Metabolic Lcv449 K 4.0 mEq/L 06/14/2018 Comp Metabolic Oyj858 CL 106 mEq/L 06/14/2018 Comp Metabolic Bqy814 CO2 31.0 mEq/L 06/14/2018 Comp Metabolic Bec567 AN ION GAP 12 06/14/2018 Comp Metabolic Qap934 GL UCOSE 88 mg/dL 06/14/2018 Comp Metabolic Clg994 Cr eat 0.7 mg/dL 06/14/2018 Comp Metabolic Mmx730 eG FR 92 ml/min/1.73m2 06/14 Comp Metabolic Suh748 BUN 9 mg/dL 06/14/2018 Comp Metabolic Cac759 B/ C Ratio 13.6 Ratio 06/14/2018 Comp Metabolic Lao647 CA LCIUM 9.0 mg/dL 06/14/2018 Comp Metabolic Uba372 AL K PHOS 36 U/L 06/14/2018 Comp Metabolic Nqj147 T(SGOT) 21 U/L 06/14/2018 Comp Metabolic Upy990 AL T(SGPT) 22 U/L 06/14/2018 Comp Metabolic Yaq229 BI LI T 0.3 mg/dL 06/14/2018 Comp Metabolic Fgg715 AL BUMIN 3.8 g/dL 06/14/2018 Comp Metabolic Dxm300 TP RO 5.8 g/dL 06/14/2018 Comp Metabolic Owi763 GL OB 2.0 g/dL 06/14/2018 Comp Metabolic Zdw465 A/ G Ratio 2.0 Ratio 06/14/2018 Comp Metabolic Oku022 Os mo 287 mOsmo 06/14/2018 Free T4 Ahw274 FREE T4 0.66 ng/dL 06/14/2018 Tsh Ord6 [...] 47.6 % 06/14/2018 Cbc With Differential Ord2 Lymph% 32.9 % 06/14/2018 Cbc With Differential Ord2 MCV 90.8 fl 06/14/2018 Cbc With Differential Ord2 MCH 29.8 pg 06/14/2018 Cbc With Differential Ord2 [place]% 13.9 % 06/14/2018 Cbc With Differential Ord2 Eos% 4.9 % 06/14/2018 Cbc With Differential Ord2 MCHC 32.9 pg 06/14/2018 Cbc With Differential Ord2 PLT 227 K/ul 06/14/2018 Cbc With Differential Ord2 Baso% 0.7 % 06/14/2018 Cbc With Differential Ord2 Neut ABS# 2.02 K/ul 06/14/2018 Cbc With Differential Ord2 RDW 15.6 % 06/14/2018 Cbc With Differential Ord2 Lymph ABS# 1.40 K/ul 06/14/2018 Cbc With Differential Ord2 [place] ABS# 0.6 K/ul 06/14/2018 Cbc With Differential Ord2 Eos ABS# 0.2 K/ul 06/14/2018 Cbc With Differential Ord2 Baso ABS# 0.0 K/ul 06/14/2018 Free T4 Pwr114 FREE T4 0.63 ng/dL 01/05/2018 Lipid Ord30 CHOL 246 mg/dL 01/05/2018 Lipid Ord30 HDL 79.0 mg/dl 01/05/2018 Lipid Ord30 TRIG 124 mg/dL 01/05/2018 Lipid Ord30 LDL 142 mg/dL 01/05/2018 Lipid Ord30 C/HDL 3.1 Ratio 01/05/2018 Tsh Ord6 TSH (3rd IS) 1.48 uIU/mL 01/05/2018 Tsh Ord6 hTSH II 2.03 uIU/mL 08/07/2017 Comp Metabolic Vzw993 NA 142 mEq/L 08/07/2017 Comp Metabolic Wtr125 K 4.1 mEq/L 08/07/2017 Comp Metabolic Ogf968 CL 105 mEq/L 08/07/2017 Comp Metabolic Svo987 CO2 27.0 mEq/L 08/07/2017 Comp Metabolic Sln890 AN ION GAP 14 08/07/2017 Comp Metabolic Wnc262 GL UCOSE 89 mg/dL 08/07/2017 Comp Metabolic Thl661 Cr eat 0.7 mg/dL 08/07/2017 Comp Metabolic Qaz678 eG FR 86 ml/min/1.73m2 08/07 Comp Metabolic Ctm634 BUN 16 mg/dL 08/07/2017 Comp Metabolic Yge638 B/ C Ratio 22.9 Ratio 08/07/2017 Comp Metabolic Ype807 CA LCIUM 9.8 mg/dL 08/07/2017 Comp Metabolic Eas351 AL K PHOS 41 U/L 08/07/2017 Comp Metabolic Zcd743 T(SGOT) 26 U/L 08/07/2017 Comp Metabolic Yrf099 AL T(SGPT) 21 U/L 08/07/2017 Comp Metabolic Qmi575 BI LI T 0.5 mg/dL 08/07/2017 Comp Metabolic Uoe949 AL BUMIN 4.3 g/dL 08/07/2017 Comp Metabolic Mjg543 TP RO 6.6 g/dL 08/07/2017 Comp Metabolic Xnb188 GL OB 2.3 g/dL 08/07/2017 Comp Metabolic Wja708 A/ G Ratio 1.9 Ratio 08/07/2017 Comp Metabolic Khx991 Os mo 284 mOsmo 08/07/2017 Free T4 Npe143 FREE T4 0.64 ng/dL 08/07/2017 Lipid Ord30 [...] 90.3 fl 08/07/2017 Cbc With Differential Ord2 [place]% 13.9 % 08/07/2017 Cbc With Differential Ord2 MCH 30.3 pg 08/07/2017 Cbc With Differential Ord2 Eos% 5.4 % 08/07/2017 Cbc With Differential Ord2 MCHC 33.5 pg 08/07/2017 Cbc With Differential Ord2 Baso% 0.5 % 08/07/2017 Cbc With Differential Ord2 PLT 271 K/ul 08/07/2017 Cbc With Differential Ord2 Neut ABS# 1.92 K/ul 08/07/2017 Cbc With Differential Ord2 RDW 14.5 % 08/07/2017 Cbc With Differential Ord2 Lymph ABS# 1.49 K/ul 08/07/2017 Cbc With Differential Ord2 [place] ABS# 0.6 K/ul 08/07/2017 Cbc With Differential [...] 92.3 fl 11/20/2016 Cbc With Differential Ord2 [place]% 10.8 % 11/20/2016 Cbc With Differential Ord2 [...] 1.62 K/ul 11/20/2016 Cbc With Differential Ord2 [place] ABS# 0.5 K/ul 11/20/2016 Cbc With Differential Ord2 Eos ABS# 0.2 K/ul 11/20/2016 Cbc With Differential Ord2 Baso ABS# 0.0 K/ul 11/20/2016 Free T4 Tov003 FREE T4 0.80 ng/dL 11/20/2016 Tsh Ord6 hTSH II 1.35 uIU/mL 11/20/2016 Comp Metabolic Jwa754 NA 139 mEq/L 11/20/2016 Comp Metabolic Nkk733 K 3.9 mEq/L 11/20/2016 Comp Metabolic Vkb892 CL 103 mEq/L 11/20/2016 Comp Metabolic Cxz323 CO2 30.0 mEq/L 11/20/2016 Comp Metabolic Eym065 AN ION GAP 10 11/20/2016 Comp Metabolic Kek177 GL UCOSE 85 mg/dL 11/20/2016 Comp Metabolic Bqh680 Cr eat 0.7 mg/dL 11/20/2016 Comp Metabolic Rbj003 eG FR 93 ml/min/1.73m2 11/20 Comp Metabolic Ooc637 BUN 12 mg/dL 11/20/2016 Comp Metabolic Vri305 B/ C Ratio 18.2 Ratio 11/20/2016 Comp Metabolic Piy156 CA LCIUM 9.1 mg/dL 11/20/2016 Comp Metabolic Nhv859 AL K PHOS 34 U/L 11/20/2016 Comp Metabolic Ypz424 T(SGOT) 18 U/L 11/20/2016 Comp Metabolic Rfe502 AL T(SGPT) 14 U/L 11/20/2016 Comp Metabolic Wbv723 BI LI T 0.5 mg/dL 11/20/2016 Comp Metabolic Xop698 AL BUMIN 4.2 g/dL 11/20/2016 Comp Metabolic Edz130 TP RO 6.3 g/dL 11/20/2016 Comp Metabolic Smg187 GL OB 2.1 g/dL 11/20/2016 Comp Metabolic Hlf187 A/ G Ratio 2.0 Ratio 11/20/2016 Comp Metabolic Bbz146 Os mo 277 mOsmo 11/20/2016 Lipid Ord30 CHOL 189 mg/dL 11/20/2016 Lipid Ord30 HDL 81.0 mg/dl 11/20/2016 Lipid Ord30 TRIG 77 mg/dL 11/20/2016 Lipid Ord30 LDL 93 mg/dL 11/20/2016 Lipid Ord30 C/HDL 2.3 Ratio 11/20/2016 Testosterone Free Direct [id number] FREE TESTOSTERONE 0.7 pg/mL 10/06/2016 Estradiol 020479 ESTRADI OL 5.9 pg/mL 10/03/2016 Cortisol 717220 CORTISOL 23 ug/dL 10/03/2016 Progesterone Lfy117 Prog 17.38 ng/mL 10/01/2016 Free T4 Rnu341 FREE T4 0.66 ng/dL 08/13/2016 Tsh Ord6 hTSH II 0.99 uIU/mL 08/13/2016 Testosterone Free Direct 155850 FREE TESTOSTERONE <0.2 pg/mL 07/05/2016 Estradiol 389090 ESTRADI OL <5.0 pg/mL 07/03/2016 Progesterone Bsa119 Prog 23.37 ng/mL 07/02/2016 Tsh Ord6 hTSH II 0.24 uIU/mL 06/17/2016 Free T4 Cmo605 FREE T4 0.86 ng/dL 06/17/2016 Estradiol 329645 ESTRADI OL <5.0 pg/mL 05/21/2016 Comp Metabolic Kmi774 NA 140 mEq/L 05/20/2016 Comp Metabolic Sxo834 K 4.1 mEq/L 05/20/2016 Comp Metabolic Iln185 CL 106 mEq/L 05/20/2016 Comp Metabolic Rxl780 CO2 26.0 mEq/L 05/20/2016 Comp Metabolic Lkd135 AN ION GAP 12 05/20/2016 Comp Metabolic Nai963 GL UCOSE 81 mg/dL 05/20/2016 Comp Metabolic Qdd124 Cr eat 0.5 mg/dL 05/20/2016 Comp Metabolic Fjp088 eG FR 119 ml/min/1.73m2 05/09 Comp Metabolic Ksx485 BUN 15 mg/dL 05/20/2016 Comp Metabolic Fpy532 B/ C Ratio 28.3 Ratio 05/20/2016 Comp Metabolic Jdn109 CA LCIUM 8.9 mg/dL 05/20/2016 Comp Metabolic Bzr903 AL K PHOS 36 U/L 05/20/2016 Comp Metabolic Iyk238 T(SGOT) 25 U/L 05/20/2016 Comp Metabolic Vap110 AL T(SGPT) 23 U/L 05/20/2016 Comp Metabolic Ajy640 BI LI T 0.4 mg/dL 05/20/2016 Comp Metabolic Iku615 AL BUMIN 3.7 g/dL 05/20/2016 Comp Metabolic Oym153 TP RO 5.9 g/dL 05/20/2016 Comp Metabolic Vtl570 GL OB 2.2 g/dL 05/20/2016 Comp Metabolic Kuc406 A/ G Ratio 1.7 Ratio 05/20/2016 Comp Metabolic Zdz966 Os mo 279 mOsmo 05/20/2016 Progesterone Pqq910 Prog 8.44 ng/mL 05/20/2016 Cbc With Differential [...] 89.8 fl 05/20/2016 Cbc With Differential Ord2 [place]% 13.0 % 05/20/2016 Cbc With Differential Ord2 [...] 0.85 K/ul 05/20/2016 Cbc With Differential Ord2 [place] ABS# 0.6 K/ul 05/20/2016 Cbc With Differential [...] Ord28 U-Yeast NEGATIVE 05/20/2016 Testosterone Free Direct [id number] FREE TESTOSTERONE 0.6 pg/mL 05/19/2016 Estradiol 724368 ESTRADI OL <5.0 pg/mL 05/16/2016 Comp Metabolic Xkg456 NA 140 mEq/L 05/15/2016 Comp Metabolic Sym989 K 3.8 mEq/L 05/15/2016 Comp Metabolic Alp186 CL 106 mEq/L 05/15/2016 Comp Metabolic Eqk534 CO2 26.0 mEq/L 05/15/2016 Comp Metabolic Qut371 AN ION GAP 12 05/15/2016 Comp Metabolic Oef452 GL UCOSE 77 mg/dL 05/15/2016 Comp Metabolic Cut982 Cr eat 0.5 mg/dL 05/15/2016 Comp Metabolic Otk255 eG FR 144 ml/min/1.73m2 05/2016 Comp Metabolic Tjp713 BUN 18 mg/dL 05/15/2016 Comp Metabolic Plc511 B/ C Ratio 40.0 Ratio 05/15/2016 Comp Metabolic Vtv429 CA LCIUM 8.8 mg/dL 05/15/2016 Comp Metabolic Fgp093 AL K PHOS 28 U/L 05/15/2016 Comp Metabolic Ama195 T(SGOT) 19 U/L 05/15/2016 Comp Metabolic Jty309 AL T(SGPT) 19 U/L 05/15/2016 Comp Metabolic Nwg399 BI LI T 0.5 mg/dL 05/15/2016 Comp Metabolic Iby867 AL BUMIN 3.6 g/dL 05/15/2016 Comp Metabolic Wxp366 TP RO 5.6 g/dL 05/15/2016 Comp Metabolic Ede072 GL OB 2.0 g/dL 05/15/2016 Comp Metabolic Drz493 A/ G Ratio 1.8 Ratio 05/15/2016 Comp Metabolic Bfb965 Os mo 280 mOsmo 05/15/2016 Progesterone Kkb880 Prog 9.08 ng/mL 05/15/2016 Cbc With Differential [...] 31.8 % 05/15/2016 Cbc With Differential Ord2 [place]% 14.1 % 05/15/2016 Cbc With Differential Ord2 [...] 1.42 K/ul 05/15/2016 Cbc With Differential Ord2 [place] ABS# 0.6 K/ul 05/15/2016 Cbc With Differential [...] Ord28 U-Com None 05/15/2016 Testosterone Free Direct 164853 FREE TESTOSTERONE 0.2 pg/mL 05/09/2016 Estradiol 416408 ESTRADI OL <5.0 pg/mL 05/07/2016 Comp Metabolic Uvs406 NA 141 mEq/L 05/06/2016 Comp Metabolic Lkq884 K 3.6 mEq/L 05/06/2016 Comp Metabolic Vef276 CL 107 mEq/L 05/06/2016 Comp Metabolic Bfl065 CO2 28.0 mEq/L 05/06/2016 Comp Metabolic Ywz662 AN ION GAP 10 05/06/2016 Comp Metabolic Ayb871 GL UCOSE 138 mg/dL 05/06/2016 Comp Metabolic Tfl237 Cr eat 0.5 mg/dL 05/06/2016 Comp Metabolic Zwq926 eG FR 119 ml/min/1.73m2 04/10 Comp Metabolic Ujb698 BUN 16 mg/dL 05/06/2016 Comp Metabolic Tej672 B/ C Ratio 30.2 Ratio 05/06/2016 Comp Metabolic Tck993 CA LCIUM 8.9 mg/dL 05/06/2016 Comp Metabolic Jbd786 AL K PHOS 29 U/L 05/06/2016 Comp Metabolic Xfm538 T(SGOT) 20 U/L 05/06/2016 Comp Metabolic Esi270 AL T(SGPT) 21 U/L 05/06/2016 Comp Metabolic Kao471 BI LI T 0.4 mg/dL 05/06/2016 Comp Metabolic Dtn488 AL BUMIN 3.6 g/dL 05/06/2016 Comp Metabolic Lco620 TP RO 5.5 g/dL 05/06/2016 Comp Metabolic Mtc233 GL OB 1.9 g/dL 05/06/2016 Comp Metabolic Kcu771 A/ G Ratio 1.9 Ratio 05/06/2016 Comp Metabolic Vjw033 Os mo 285 mOsmo 05/06/2016 Urinalysis Ord28 [...] hours from collection if refrigerated) 05/06/2016 Progesterone Ivk426 Prog 0.98 ng/mL 05/06/2016 Cbc With Differential [...] 29.9 % 05/06/2016 Cbc With Differential Ord2 [place]% 10.1 % 05/06/2016 Cbc With Differential Ord2 [...] 1.16 K/ul 05/06/2016 Cbc With Differential Ord2 [place] ABS# 0.4 K/ul 05/06/2016 Cbc With Differential [...] 29.6 pg 04/29/2016 Cbc With Differential Ord2 [place]% 13.1 % 04/29/2016 Cbc With Differential Ord2 [...] 1.42 K/ul 04/29/2016 Cbc With Differential Ord2 [place] ABS# 0.5 K/ul 04/29/2016 Cbc With Differential Ord2 Eos ABS# 0.2 K/ul 04/29/2016 Cbc With Differential Ord2 Baso ABS# 0.0 K/ul 04/29/2016 Comp Metabolic Ohy676 NA 141 mEq/L 04/29/2016 Comp Metabolic Nrw908 K 4.0 mEq/L 04/29/2016 Comp Metabolic Toa873 CL 108 mEq/L 04/29/2016 Comp Metabolic Fcv022 CO2 27.0 mEq/L 04/29/2016 Comp Metabolic Iyb991 AN ION GAP 10 04/29/2016 Comp Metabolic Aij238 GL UCOSE 69 mg/dL 04/29/2016 Comp Metabolic Pcu256 Cr eat 0.5 mg/dL 04/29/2016 Comp Metabolic Ial957 eG FR 122 ml/min/1.73m2 04/10 Comp Metabolic Owt743 BUN 19 mg/dL 04/29/2016 Comp Metabolic Lpo980 B/ C Ratio 36.5 Ratio 04/29/2016 Comp Metabolic Ewm142 CA LCIUM 9.1 mg/dL 04/29/2016 Comp Metabolic Jdt778 AL K PHOS 31 U/L 04/29/2016 Comp Metabolic Jyx174 T(SGOT) 20 U/L 04/29/2016 Comp Metabolic Jjx297 AL T(SGPT) 22 U/L 04/29/2016 Comp Metabolic Kaq119 BI LI T 0.6 mg/dL 04/29/2016 Comp Metabolic Cik950 AL BUMIN 3.8 g/dL 04/29/2016 Comp Metabolic Fwn607 TP RO 5.9 g/dL 04/29/2016 Comp Metabolic Eva040 GL OB 2.1 g/dL 04/29/2016 Comp Metabolic Olg349 A/ G Ratio 1.8 Ratio 04/29/2016 Comp Metabolic Bug062 Os mo 282 mOsmo 04/29/2016 Progesterone Qmf709 Prog 5.99 ng/mL 04/29/2016 Urinalysis Ord28 U-Color [...] Urinalysis Ord28 U-Yeast NEGATIVE 04/25/2016 Comp Metabolic Ieo465 NA 138 mEq/L 04/25/2016 Comp Metabolic Ycz066 K 3.6 mEq/L 04/25/2016 Comp Metabolic Gre314 CL 105 mEq/L 04/25/2016 Comp Metabolic Dkw707 CO2 27.0 mEq/L 04/25/2016 Comp Metabolic Wqj620 AN ION GAP 10 04/25/2016 Comp Metabolic Rms731 GL UCOSE 190 mg/dL 04/25/2016 Comp Metabolic Rah982 Cr eat 0.5 mg/dL 04/25/2016 Comp Metabolic Jbb815 eG FR 128 ml/min/1.73m2 04/09 Comp Metabolic Fqu799 BUN 17 mg/dL 04/25/2016 Comp Metabolic Tbi967 B/ C Ratio 34.0 Ratio 04/25/2016 Comp Metabolic Kat383 CA LCIUM 8.7 mg/dL 04/25/2016 Comp Metabolic Xwn043 AL K PHOS 32 U/L 04/25/2016 Comp Metabolic Bhy511 T(SGOT) 23 U/L 04/25/2016 Comp Metabolic Ttz070 AL T(SGPT) 22 U/L 04/25/2016 Comp Metabolic Crs393 BI LI T 0.5 mg/dL 04/25/2016 Comp Metabolic Xim874 AL BUMIN 3.6 g/dL 04/25/2016 Comp Metabolic Cfo170 TP RO 5.5 g/dL 04/25/2016 Comp Metabolic Squ272 GL OB 1.9 g/dL 04/25/2016 Comp Metabolic Dcb981 A/ G Ratio 1.9 Ratio 04/25/2016 Comp Metabolic Sdo205 Os mo 282 mOsmo 04/25/2016 Cbc With [...] 29.6 pg 04/25/2016 Cbc With Differential Ord2 [place]% 13.0 % 04/25/2016 Cbc With Differential Ord2 [...] 1.01 K/ul 04/25/2016 Cbc With Differential Ord2 [place] ABS# 0.4 K/ul 04/25/2016 Cbc With Differential [...] 88.8 fl 04/04/2016 Cbc With Differential Ord2 [place]% 16.1 % 04/04/2016 Cbc With Differential Ord2 [...] 1.32 K/ul 04/04/2016 Cbc With Differential Ord2 [place] ABS# 0.8 K/ul 04/04/2016 Cbc With Differential Ord2 Eos ABS# 0.2 K/ul 04/04/2016 Cbc With Differential Ord2 Baso ABS# 0.0 K/ul 04/04/2016 Comp Metabolic Niz807 NA 140 mEq/L 04/04/2016 Comp Metabolic Rwh263 K 4.1 mEq/L 04/04/2016 Comp Metabolic Qmg915 CL 106 mEq/L 04/04/2016 Comp Metabolic Ktc553 CO2 27.0 mEq/L 04/04/2016 Comp Metabolic Bsc389 AN ION GAP 11 04/04/2016 Comp Metabolic Swv239 GL UCOSE 71 mg/dL 04/04/2016 Comp Metabolic Fsa442 Cr eat 0.5 mg/dL 04/04/2016 Comp Metabolic Lzn905 eG FR 131 ml/min/1.73m2 03/10 Comp Metabolic Fxx078 BUN 14 mg/dL 04/04/2016 Comp Metabolic Tti156 B/ C Ratio 28.6 Ratio 04/04/2016 Comp Metabolic Nlw314 CA LCIUM 9.1 mg/dL 04/04/2016 Comp Metabolic Aaq775 AL K PHOS 42 U/L 04/04/2016 Comp Metabolic Iam383 T(SGOT) 18 U/L 04/04/2016 Comp Metabolic Zls365 AL T(SGPT) 17 U/L 04/04/2016 Comp Metabolic Ysg328 BI LI T 0.4 mg/dL 04/04/2016 Comp Metabolic Wdz933 AL BUMIN 3.8 g/dL 04/04/2016 Comp Metabolic Xpg015 TP RO 6.0 g/dL 04/04/2016 Comp Metabolic Ybv557 GL OB 2.2 g/dL 04/04/2016 Comp Metabolic Hnu431 A/ G Ratio 1.7 Ratio 04/04/2016 Comp Metabolic Xpf898 Os mo 278 mOsmo 04/04/2016 Urinalysis Ord28 [...] 29.6 pg 03/28/2016 Cbc With Differential Ord2 [place]% 11.7 % 03/28/2016 Cbc With Differential Ord2 [...] 1.14 K/ul 03/28/2016 Cbc With Differential Ord2 [place] ABS# 0.4 K/ul 03/28/2016 Cbc With Differential Ord2 E[place] ABS# 0.1 K/ul 03/28/2016 Cbc With Differential Ord2 Baso ABS# 0.0 K/ul 03/28/2016 Cbc With Differential Ord2 New Analyzer Notice Please note new ref ranges s tarting 11-21-2015 due to implemntation of new five part differential hematolgy analyzer. 03/28/2016 Comp Metabolic Gxt140 NA 137 mEq/L 03/28/2016 Comp Metabolic Taf888 K 3.5 mEq/L 03/28/2016 Comp Metabolic Fus873 CL 105 mEq/L 03/28/2016 Comp Metabolic Ams172 CO2 27.0 mEq/L 03/28/2016 Comp Metabolic Xbh176 AN ION GAP 9 03/28/2016 Comp Metabolic Dzn789 GL UCOSE 174 mg/dL 03/28/2016 Comp Metabolic Vvb812 Cr eat 0.5 mg/dL 03/28/2016 Comp Metabolic Gcz130 eG FR 131 ml/min/1.73m2 03/10 Comp Metabolic Tsz857 BUN 13 mg/dL 03/28/2016 Comp Metabolic Ovx329 B/ C Ratio 26.5 Ratio 03/28/2016 Comp Metabolic Zuq145 CA LCIUM 8.7 mg/dL 03/28/2016 Comp Metabolic Ari175 AL K PHOS 31 U/L 03/28/2016 Comp Metabolic Uio886 T(SGOT) 20 U/L 03/28/2016 Comp Metabolic Vaw835 AL T(SGPT) 19 U/L 03/28/2016 Comp Metabolic Gks789 BI LI T 0.4 mg/dL 03/28/2016 Comp Metabolic Fah861 AL BUMIN 3.5 g/dL 03/28/2016 Comp Metabolic Yjc088 TP RO 5.3 g/dL 03/28/2016 Comp Metabolic Ddu443 GL OB 1.8 g/dL 03/28/2016 Comp Metabolic Uwh453 A/ G Ratio 2.0 Ratio 03/28/2016 Comp Metabolic Jch358 Os mo 278 mOsmo 03/28/2016 Urinalysis Ord28 [...] Ord28 U-Yeast NEGATIVE 03/28/2016 Testosterone Free Direct 982688 FREE TESTOSTERONE <0.2 pg/mL 03/13/2016 Estradiol 931169 ESTRADI OL <5.0 pg/mL 03/12/2016 Progesterone Sxz056 Prog 0.56 ng/mL 03/10/2016 Homocyst(E)Ine Plasma 788017 HOMOCYSTEINE, TOTAL 10.9 umol/L 01/18/2016 Mthfr 914678 MTHFR C677T: HETEROZYGOUS MUTATION DETECTED 02/2016 Mthfr 204583 MTHFR A1298 C: HETEROZYGOUS MUTATION DETECTED 01/11/2016 Mthfr 254827 INTERPRETAT ION: 01/11/2016 Iodine Serum 902886 IOD INE, SERUM 131.0 ug/L 01/10/2016 Tsh Ord6 hTSH II 2.11 uIU/mL 01/07/2016 Lipid Ord30 CHOL 204 mg/dL 01/07/2016 Lipid Ord30 HDL 86.0 mg/dl 01/07/2016 Lipid Ord30 TRIG 104 mg/dL 01/07/2016 Lipid Ord30 LDL 97 mg/dL 01/07/2016 Lipid Ord30 C/HDL 2.4 Ratio 01/07/2016 Comp Metabolic Huq141 NA 139 mEq/L 01/07/2016 Comp Metabolic Veg036 K 4.0 mEq/L 01/07/2016 Comp Metabolic Mov839 CL 104 mEq/L 01/07/2016 Comp Metabolic Biq371 CO2 26.0 mEq/L 01/07/2016 Comp Metabolic Wxe200 AN ION GAP 13 01/07/2016 Comp Metabolic Izp737 GL UCOSE 86 mg/dL 01/07/2016 Comp Metabolic Eyw557 Cr eat 0.6 mg/dL 01/07/2016 Comp Metabolic Xht573 eG FR 100 ml/min/1.73m2 12/11 Comp Metabolic Ubk756 BUN 18 mg/dL 01/07/2016 Comp Metabolic Lnl833 B/ C Ratio 29.0 Ratio 01/07/2016 Comp Metabolic Twj582 CA LCIUM 9.4 mg/dL 01/07/2016 Comp Metabolic Ilw219 AL K PHOS 40 U/L 01/07/2016 Comp Metabolic Nfq151 T(SGOT) 20 U/L 01/07/2016 Comp Metabolic Eja540 AL T(SGPT) 24 U/L 01/07/2016 Comp Metabolic Ajh198 BI LI T 0.6 mg/dL 01/07/2016 Comp Metabolic Dah772 AL BUMIN 4.1 g/dL 01/07/2016 Comp Metabolic Lvj232 TP RO 6.4 g/dL 01/07/2016 Comp Metabolic Oif510 GL OB 2.3 g/dL 01/07/2016 Comp Metabolic Ufi334 A/ G Ratio 1.8 Ratio 01/07/2016 Comp Metabolic Leb575 Os mo 279 mOsmo 01/07/2016 Urine Culture Ucult Comp lete No Growth Day 2 11/28 Urine Culture Ucult Prel iminary No Growth Day 1 11/28 Progesterone Zfm700 Prog >40.00 ng/mL 11/26/2015 Urinalysis Ord28 U-Color [...] Ord28 U-Yeast NEGATIVE 11/26/2015 Testosterone Free Direct 705309 FREE TESTOSTERONE 0.6 pg/mL 10/01/2015 Estradiol 111778 ESTRADI OL <5.0 pg/mL 09/26/2015 Urinalysis Ord28 [...] from collection if refrigerated) 09/25/2015 Comp Metabolic Ypm611 NA 142 mEq/L 09/25/2015 Comp Metabolic Akw930 K 4.3 mEq/L 09/25/2015 Comp Metabolic Ilx724 CL 110 mEq/L 09/25/2015 Comp Metabolic Uzo206 CO2 23.0 mEq/L 09/25/2015 Comp Metabolic Jvj128 AN ION GAP 13 09/25/2015 Comp Metabolic Tey701 GL UCOSE 76 mg/dL 09/25/2015 Comp Metabolic Asm719 Cr eat 0.8 mg/dL 09/25/2015 Comp Metabolic Rgu745 eG FR 79 ml/min/1.73m2 09/25 Comp Metabolic Lud778 BUN 17 mg/dL 09/25/2015 Comp Metabolic Hjb203 B/ C Ratio 22.4 Ratio 09/25/2015 Comp Metabolic Bwj266 CA LCIUM 9.4 mg/dL 09/25/2015 Comp Metabolic Wxh065 AL K PHOS 45 U/L 09/25/2015 Comp Metabolic Ckq500 T(SGOT) 20 U/L 09/25/2015 Comp Metabolic Yaf636 AL T(SGPT) 18 U/L 09/25/2015 Comp Metabolic Leo002 BI LI T 0.5 mg/dL 09/25/2015 Comp Metabolic Ckb479 AL BUMIN 4.0 g/dL 09/25/2015 Comp Metabolic Vgm572 TP RO 6.2 g/dL 09/25/2015 Comp Metabolic Mlk068 GL OB 2.2 g/dL 09/25/2015 Comp Metabolic Hec445 A/ G Ratio 1.8 Ratio 09/25/2015 Comp Metabolic Lpt080 Os mo 283 mOsmo 09/25/2015 Tsh Ord6 hTSH II 4.05 uIU/mL 09/25/2015 Progesterone Rha548 Prog 21.38 ng/mL 09/25/2015 Free T4 Fjd592 FREE T4 0.78 ng/dL 09/25/2015 Cbc With [...] RDW 14.3 % 09/25/2015 Testosterone Free Direct 868607 FREE TESTOSTERONE 1.2 pg/mL 08/31/2015 Estradiol 288307 ESTRADI OL <5.0 pg/mL 08/29/2015 Progesterone Wgq515 Prog 4.37 ng/mL 08/28/2015 Fungal Screen I 308931 * *ASPERGILLUS AB BY ID . 07/23/2015 Fungal Screen I 312315 A SPERGILLUS AB BY ID None Detected 015 Fungal Screen I 993709 * *BLASTOMYCES ANTIBODY BY CF & ID . 07/23/2015 Fungal Screen I 040612 B LASTOMYCES AB,CF <1:8 07/23/2015 Fungal Screen I 455036 B LASTOMYCES AB,ID None Detected 015 Fungal Screen I 032555 * *MAXINE ANTIBODY BY ID . 07/23/2015 Fungal Screen I 107078 C ANDIDA AB BY ID Detected 07/23/2015 Fungal Screen I 829584 * *COCCIDIOIDES ANTIBODIES, IGG & IGM . 07/23/2015 Fungal Screen I 623280 C OCCIDIOIDES AB IGM 0.3 IV 07/23/2015 Fungal Screen I 958129 C OCCIDIOIDES AB IGG 0.4 IV 07/23/2015 Fungal Screen I 749847 * *HISTOPLASMA ANTIBODY BY ID . 07/23/2015 Fungal Screen I 887662 H ISTOPLASMA ABS (ID) None Detected 015 Francisella Tularensis Abs 900301 F. TULARENSIS, IGG 0 U/mL 07/17/2015 Francisella Tularensis Abs 240503 F. TULARENSIS, IGM 0 U/mL 07/17/2015 Vitamin D 25 Oh Qmb4631 VITAMIN D, 25 HYDROXY 142.21 ng/mL 07/13/2015 Antistrptolysin-O Qualitative Nlz946 ASO Negative 07/12/2015 B12 Ydw376 B12 956.00 pg/ml 07/12/2015 Cbc With Differential [...] Ord2 RDW 15.1 % 07/10/2015 Free T4 Zrk688 FREE T4 0.79 ng/dL 06/12/2015 Urinalysis Ord28 [...] Ord2 RDW 16.0 % 06/04/2015 Comp Metabolic Sug124 NA 139 mEq/L 06/04/2015 Comp Metabolic Khq560 K 3.9 mEq/L 06/04/2015 Comp Metabolic Qzc279 CL 108 mEq/L 06/04/2015 Comp Metabolic Mhy099 CO2 26.0 mEq/L 06/04/2015 Comp Metabolic Gkx581 AN ION GAP 9 06/04/2015 Comp Metabolic Rax139 GL UCOSE 74 mg/dL 06/04/2015 Comp Metabolic Jlu569 Cr eat 0.6 mg/dL 06/04/2015 Comp Metabolic Oto873 eG FR 102 ml/min/1.73m2 05/10 Comp Metabolic Uch727 BUN 18 mg/dL 06/04/2015 Comp Metabolic Pql472 B/ C Ratio 29.5 Ratio 06/04/2015 Comp Metabolic Fca604 CA LCIUM 9.0 mg/dL 06/04/2015 Comp Metabolic Dfb128 AL K PHOS 44 U/L 06/04/2015 Comp Metabolic Irz760 T(SGOT) 22 U/L 06/04/2015 Comp Metabolic Fho930 AL T(SGPT) 23 U/L 06/04/2015 Comp Metabolic Jjx992 BI LI T 0.4 mg/dL 06/04/2015 Comp Metabolic Mxe022 AL BUMIN 4.0 g/dL 06/04/2015 Comp Metabolic Bev945 TP RO 5.8 g/dL 06/04/2015 Comp Metabolic Rhz981 GL OB 1.8 g/dL 06/04/2015 Comp Metabolic Ugv695 A/ G Ratio 2.2 Ratio 06/04/2015 Comp Metabolic Lbl288 Os mo 278 mOsmo 06/04/2015 Tsh Ord6 [...] 05/19/2018 Neurologic No paresthesia 05/19/2018 Neurologic weakness 0711/2017 Psychiatric No anxiety 0 05/19/2018 Psychiatric depression [...] 4: G0439 03/11/2016 THER/PROPH/DIAG INJ SC/IM CPT-4: 81996 12/27/2015 Vital Signs Date Vital 09/15/2018 Blood Pressure 1: 130/70 Code: 8480-6 BMI: 20.6 Code: 02417-3 Heart Rate 1: 75 bpm Height: 5' SpO2: 99% Weight: 105 lbs 8 oz 09/10/2018 Blood Pressure 1: 126/68 Code: 8480-6 BMI: 20.7 Code: 32512-4 Heart Rate 1: 63 bpm Height: 5' SpO2: 96% Waist Measure (cm): 66 cm Weight: 106 lbs 06/01/2018 Blood Pressure 1: 156/76 Code: 8480-6 BMI: 20.1 Code: 93271-4 Heart Rate 1: 68 bpm Height: 5' SpO2: 99% Weight: 103 lbs 05/24/2018 Blood Pressure 1: 120/60 Code: 8480-6 BMI: 20.5 Code: 13466-7 Heart Rate 1: 82 bpm Height: 5' SpO2: 98% Weight: 105 lbs 05/19/2018 Blood Pressure 1: 140/72 Code: 8480-6 BMI: 20.5 Code: 18783-3 Heart Rate 1: 96 bpm Height: 5' SpO2: 98% Weight: 105 lbs 01/12/2018 Blood Pressure 1: 146/78 Code: 8480-6 BMI: 21.1 Code: 86739-3 Heart Rate 1: 85 bpm Height: 5' SpO2: 95% Weight: 108 lbs 10/12/2017 Blood Pressure 1: 138/72 Code: 8480-6 BMI: 21.1 Code: 92652-8 Heart Rate 1: 96 bpm Height: 5' SpO2: 98% Weight: 108 lbs 08/06/2017 Blood Pressure 1: 130/78 Code: 8480-6 BMI: 20.5 Code: 47583-3 Heart Rate 1: 89 bpm Height: 5' SpO2: 98% Weight: 105 lbs 05/13/2017 Blood Pressure 1: 122/70 Code: 8480-6 BMI: 20.5 Code: 69978-6 Heart Rate 1: 80 bpm Height: 5' SpO2: 97% Weight: 105 lbs 03/19/2017 Blood Pressure 1: 138/80 Code: 8480-6 BMI: 20.5 Code: 66695-1 Heart Rate 1: 83 bpm Height: 5' SpO2: 97% Waist Measure (cm): 74 cm Weight: 105 lbs 03/18/2017 Blood Pressure 1: 138/80 Code: 8480-6 BMI: 20.5 Code: 39568-7 Heart Rate 1: 83 bpm Height: 5' SpO2: 97% Weight: 105 lbs 01/27/2017 Blood Pressure 1: 142/68 Code: 8480-6 BMI: 20.5 Code: 58577-2 Heart Rate 1: 69 bpm Height: 5' SpO2: 97% Weight: 105 lbs 12/29/2016 Blood Pressure 1: 154/82 Code: 8480-6 BMI: 20.1 Code: 24081-1 Heart Rate 1: 76 bpm Height: 5' SpO2: 94% Temperature: 37.4 (C ) / 99.4 (F) Weight: 103 lbs 11/19/2016 Blood Pressure 1: 134/74 Code: 8480-6 BMI: 19.7 Code: 62458-2 Heart Rate 1: 64 bpm Height: 5' Weight: 101 lbs 08/13/2016 Blood Pressure 1: 118/56 Code: 8480-6 BMI: 19.5 Code: 73960-7 Heart Rate 1: 64 bpm Height: 5' SpO2: 97% Weight: 100 lbs 07/03/2016 Blood Pressure 1: 120/68 Code: 8480-6 BMI: 19.1 Code: 25201-4 Heart Rate 1: 80 bpm Height: 5' SpO2: 98% Weight: 98 lbs 05/07/2016 Blood Pressure 1: 116/58 Code: 8480-6 BMI: 19.1 Code: 16051-1 Heart Rate 1: 79 bpm Height: 5' SpO2: 98% Weight: 98 lbs 04/08/2016 Blood Pressure 1: 118/58 Code: 8480-6 BMI: 19.0 Code: 67262-9 Heart Rate 1: 78 bpm Height: 5' SpO2: 98% Weight: 97 lbs 8 oz 03/11/2016 Blood Pressure 1: 102/60 Code: 8480-6 BMI: 19.7 Code: 43172-6 Heart Rate 1: 75 bpm Height: 5' SpO2: 94% Waist Measure (cm): 71 cm Weight: 101 lbs 12/27/2015 Blood Pressure 1: 128/72 Code: 8480-6 BMI: 20.2 Code: 57997-4 Heart Rate 1: 95 bpm Height: 5' SpO2: 98% Weight: 103 lbs 8 oz 09/24/2015 Blood Pressure 1: 136/70 Code: 8480-6 BMI: 19.1 Code: 47912-5 Heart Rate 1: 72 bpm Height: 5' SpO2: 97% Weight: 98 lbs 06/26/2015 Blood Pressure 1: 144/64 Code: 8480-6 BMI: 18.9 Code: 63452-2 Heart Rate 1: 77 bpm Height: 5' SpO2: 98% Weight: 97 lbs 04/10/2015 Blood Pressure 1: 132/88 Code: 8480-6 BMI: 18.9 Code: 33729-4 Heart Rate 1: 83 bpm Height: 5' SpO2: 97% Weight: 97 lbs Functional Status No Functional Status data History of Present Illness Symptom Name Status Resu lt Effective Date Notes hypertension Quality tari delio hypertension 09/15/2018 None hypertension Onset and Resolution ongoing 09/15/2018 None hypertension Onset of Symptom during adulthood 09/15/2018 None hypertension Alleviating Factors medication 09/15/2018 None hypothyroid Quality spinner concrete pipe deisy 09/15/2018 None hypothyroid Onset and Resolution [...] Alleviating Factors medication 05/19/2018 None hypothyroid Quality spinner concrete pipe deisy 05/19/2018 None hypertension Quality tari kebede [...] Encounters Encounter Performer Loca tion Codes Date ([id number]) 96545 EST. P ATIENT, LEVEL IV Diagnosis: Essential (primary) hypertension[ICD10: I10] Diagnosis: Atrophy of thyroid (acquired)[ICD10: E03.4] Diagnosis: Low back pain[ICD10: M54.5] Diagnosis: Other specified noninflammatory disorders of vagina[ICD10: N89.8] Kailee Moreira MD, [facility] CPT-4: 94105 09/15/2018 ([id number]) 25434 EST. P ATIENT, LEVEL III Diagnosis: Dizziness and giddiness[ICD10: R42] Diagnosis: Allergic contact dermatitis due to plants, except food[ICD10: L23.7] Marixa Moreira MD, [facility] CPT-4: 75004 06/01/2018 ([id number]) 35190 EST. P ATIENT, LEVEL III Diagnosis: Allergic contact dermatitis due to plants, except food[ICD10: L23.7] Marixa Moreira MD, [facility] CPT-4: 81671 05/24/2018 ([id number]) 04181 EST. P ATIENT, LEVEL IV Diagnosis: Essential (primary) hypertension[ICD10: I10] Diagnosis: Atrophy of thyroid (acquired)[ICD10: E03.4] Diagnosis: Obstructive sleep apnea (adult) (pediatric)[ICD10: G47.33] Kailee Moreira MD, [facility] CPT-4: 65079 05/19/2018 ([id number]) 04187 EST. P ATIENT, LEVEL IV Diagnosis: Essential (primary) hypertension[ICD10: I10] Diagnosis: Atrophy of thyroid (acquired)[ICD10: E03.4] Diagnosis: Low back pain[ICD10: M54.5] Kailee Moreira MD, [facility] CPT-4: 15279 01/12/2018 ([id number]) 40732 EST. P ATIENT, LEVEL III Diagnosis: Headache[ICD10: R51] Kailee Moreira MD, [facility] CPT-4: 05841 10/12/2017 ([id number]) 94732 EST. P ATIENT, LEVEL IV Diagnosis: Atrophy of thyroid (acquired)[ICD10: E03.4] Diagnosis: Essential (primary) hypertension[ICD10: I10] Diagnosis: Obstructive sleep apnea (adult) (pediatric)[ICD10: G47.33] Kailee Moreira MD, [facility] CPT-4: 39671 08/06/2017 ([id number]) 59822 EST. 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 P ATIENT, LEVEL IV Diagnosis: Atrophy of thyroid (acquired)[ICD10: E03.4] Diagnosis: Essential (primary) hypertension[ICD10: I10] Diagnosis: Encounter for screening for other musculoskeletal disorder[ICD10: Z13.828] Diagnosis: Low back pain[ICD10: M54.5] Diagnosis: Transient alteration of awareness[ICD10: R40.4] Kailee Moreira MD, [facility] CPT-4: 17512 03/18/2017 ([id number]) 73668 EST. P ATIENT, LEVEL IV Diagnosis: Atrophy of thyroid (acquired)[ICD10: E03.4] Diagnosis: Essential (primary) hypertension[ICD10: I10] Diagnosis: Low back pain[ICD10: M54.5] Kailee Moreira MD, [facility] CPT-4: 85162 01/27/2017 ([id number]) 62664 EST. P ATIENT, LEVEL III Diagnosis: Acute recurrent maxillary sinusitis[ICD10: J01.01] Marixa Moreira MD, [facility] CPT-4: 99491 12/29/2016 ([id number]) 53060 EST. P ATIENT, LEVEL IV Diagnosis: Atrophy of thyroid (acquired)[ICD10: E03.4] Diagnosis: Essential (primary) hypertension[ICD10: I10] Kailee Moreira MD, [facility] CPT-4: 60447 11/19/2016 ([id number]) 37905 EST. P ATIENT, LEVEL IV Diagnosis: Atrophy of thyroid (acquired)[ICD10: E03.4] Diagnosis: Enterocolitis due to Clostridium difficile[ICD10: A04.7] Diagnosis: Essential (primary) hypertension[ICD10: I10] Kailee Moreira MD, [facility] CPT-4: 42069 08/13/2016 ([id number]) 96201 EST. P ATIENT, LEVEL IV Diagnosis: Essential (primary) hypertension[ICD10: I10] Diagnosis: Enterocolitis due to Clostridium difficile[ICD10: A04.7] Diagnosis: Hypothyroidism, unspecified[ICD10: E03.9] Diagnosis: Low back pain[ICD10: M54.5] Kailee Moreira MD, [facility] CPT-4: 52615 07/03/2016 ([id number]) 44904 EST. P ATIENT, LEVEL IV Diagnosis: Enterocolitis due to Clostridium difficile[ICD10: A04.7] Diagnosis: Lyme disease, unspecified[ICD10: A69.20] Kailee Moreira MD, [facility] CPT-4: 00600 05/07/2016 ([id number]) 30517 EST. P ATIENT, LEVEL IV Diagnosis: Generalized abdominal rigidity[ICD10: R19.37] Diagnosis: Diarrhea, unspecified[ICD10: R19.7] Diagnosis: Lyme disease, unspecified[ICD10: A69.20] Kailee Moreira MD, [facility] CPT-4: 42407 04/08/2016 ([id number]) 40715 EST. P ATIENT, LEVEL IV Diagnosis: Hypothyroidism, unspecified[ICD10: E03.9] Diagnosis: Lyme disease, unspecified[ICD10: A69.20] Diagnosis: Tachycardia, unspecified[ICD10: R00.0] Kailee Moreira MD, [facility] CPT-4: 56561 12/27/2015 ([id number]) 93940 EST. P ATIENT, LEVEL III Diagnosis: Essential (primary) hypertension[ICD10: I10] Diagnosis: Benign lipomatous neoplasm of skin and subcutaneous tissue of other sites[ICD10: D17.39] Diagnosis: Low back pain[ICD10: M54.5] [facility] CPT-4: 05526 09/24/2015 ([id number]) 18711 EST. 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 09/15/2018 Patient Education: Patient Medication Summary Completed 09/15/2018 Patient Education: Hypertension Completed 09/15/2018 Patient Education: Back Pain Completed 09/15/2018 Visit Plan: Medicare Exam - today jacqueline roth discussed the patients past history, immunizations, preventative [...] surrogate. 09/10/2018 Appointment: Kiersten Armando WPtel: [facility]8 [facility] [place] [address] - Annual Wellness Visit 09/10/2018 Patient Education: Patient Medication Summary Completed 09/10/2018 Appointment: Injection 06/14/2018 Visit Plan: Contact dermatitis-disc ussed with Dr Moreira -rx for dexamethasone sent to patient's pharmacy and instructed on use-will also send rx for topical betamethsone -instructed patient to call if symptoms do not resolve or if any worse Pjjltgojd-YDC-atplknfk fluids-monitor blood pressure- call if dizziness does not resolve or if any worse-patient and verbalized understanding 06/01/2018 Appointment: Marixa Lakhani WPtel: [facility]9 [phone] (15 min) Moderate 06/01/2018 Patient Education: Patient Medication Summary Completed 06/01/2018 Visit Plan: Contact dermatitis due to poison magalys/oak-kenalog injection today- pt is to use topical treatments as directed. Pt is cleanse clothing in hot water with soap, and call if symptoms do not improve or if they worsen. 05/24/2018 Appointment: Marixa Lakhani WPtel: [phone] [phone] (15 min) Moderate 05/24/2018 Patient Education: Patient [...] awakening. 05/19/2018 Appointment: Kailee Moreira WPtel: [phone] [facility] (30 min) Complex 05/19/2018 Patient Education: [...] bilaterally 01/12/2018 Appointment: Kailee Moreira WPtel: [phone] [facility] (15 min) Moderate 01/12/2018 Patient Education: Patient Medication Summary Completed 01/12/2018 Appointment: Kailee Moreira WPtel: [facility] [place] (15 min) Moderate 12/02/2017 Visit Plan: Headache - recommended patient to use PRN Fioricet for headaches - call if not improving. 10/12/2017 Appointment: Kailee Moreira WPtel: [facility]1 [facility] [place] (15 min) Moderate 10/12/2017 Patient Education: [...] apnea - order humidification for cpap - [place] home patient/[facility]- find out if they need [...] home. 08/06/2017 Appointment: Kailee Moreira WPtel: [facility] (15 min) Moderate 08/06/2017 Patient Education: Patient Medication Summary Completed 08/06/2017 Care Plan: Comp Metabolic Pending 08/06/2017 Care Plan: Tsh Pending 08/06/2017 Care Plan: Free T4 Pending 08/06/2017 Care Plan: Lipid Pending 08/06/2017 Care Plan: Cbc With Differential Pending 08/06/2017 Appointment: Kailee Moreira WPtel: [facility] (15 min) Moderate 07/21/2017 Visit Plan: Hypothyroidism [...] lisinopril. 05/13/2017 Appointment: Kailee Moreira WPtel: [facility] (15 min) Moderate 05/13/2017 Patient Education: Patient Medication Summary Completed 05/13/2017 Patient Education: Hypertension Completed 05/13/2017 Appointment: Kailee Moreira WPtel: [facility] (15 min) Moderate 05/06/2017 Visit Plan: Medicare [...] surrogate. 03/19/2017 [phone] [facility] - Annual Wellness Visit 03/19/2017 Patient [...] levels of control. p hysical therapy at [facility] - water therapy for back eeg - needs ordered at hospital. 03/18/2017 Appointment: [facility]ira [phone] (15 min) Moderate 03/18/2017 Patient Education: [...] improve. 01/27/2017 Appointment: Kailee Moreira WPtel: [phone] [facility] (15 min) Moderate 01/27/2017 Patient Education: Patient Medication Summary Completed 01/27/2017 Patient Education: Hypertension Completed 01/27/2017 Visit Plan: Sinusitis - Pt has acut e infection - pain in face, maxillary region, Pt informed to use decongestant, RX given to patient, sinus rinses also recommended. Call if symptoms do not show improvement. 12/29/2016 Appointment: Marixa Lakhani WPtel: [phone] [phone] (30 min) Complex 12/29/2016 Patient Education: Patient [...] control. 11/19/2016 Appointment: Kailee Moreira WPtel: [facility] (15 min) Moderate 11/19/2016 Patient Education: Patient [...] improved. 08/13/2016 Appointment: Kailee Moreira WPtel: [phone] [facility] (15 min) Moderate 08/13/2016 Patient Education: Patient Medication Summary Completed 08/13/2016 Patient Education: Hypertension Completed 08/13/2016 Appointment: Kailee Moreira WPtel: [facility]7 [facility] (30 min) Complex 07/31/2016 Visit Plan: [...] of control. 07/03/2016 Appointment: Kailee Moreira WPtel: [phone] [facility] [place] (15 min) Moderate 07/03/2016 Patient Education: Patient Medication Summary Completed 07/03/2016 Patient Education: Hypertension Completed 07/03/2016 Visit Plan: Cdiff colitis - pt to [facility] repeat testing - if positive will have to repeat treatment. Continue with probiotic. Lymes disease - continue with treatment per Dr. Carrillo. alex sample x 18 days given to patient. 05/07/2016 Appointment: Kailee Moreira WPtel: [phone] [facility] (15 min) Moderate 05/07/2016 Patient Education: Patient Medication Summary Completed 05/07/2016 Visit Plan: Diarrhea - suspect the diarrhea is Cdiff related - check stool and treat with flagyl, probiotic to increase to three times daily - continue to hold iv antibiotic. Lyme disease - treating with iv antibiotics - on hold while she has diarrhea. 04/08/2016 Appointment: Kailee Moreira WPtel: [phone] [facility] (15 min) Moderate 04/08/2016 Patient Education: Patient Medication Summary Completed 04/08/2016 Appointment: Kailee Moreira WPtel: [phone] [facility] (15 min) Moderate 04/03/2016 Visit Plan: Medicare [...] Completed 03/11/2016 Appointment: [phone] (15 min) Moderate 01/24/2016 Visit Plan: Tachycardia [...] control. 12/27/2015 Appointment: [facility]ira [facility]el[phone] [place] (15 min) Moderate 12/27/2015 Patient [...] improve. 06/26/2015 Appointment: [facility]ira [phone] [facility] [place] (15 min) Moderate 06/26/2015 Patient Education: Patient Medication Summary Completed 06/26/2015 Patient Education: Patient Medication Summary Completed 06/06/2015 Visit Plan: Hypertension - well richie lunsford - continue with current medications, continue with no added salt diet. Pt has been encouraged to exercise daily. The pt has been advised to call the office if there are any acute concerns about change in blood pressure readings at home. Low back pain- lesion of cauda equina-repeat MRI lumbar spine Lymes disease-sees Dr Carrillo-leilani specialist in [place], [place] CAD-HX heff-LBN-eayadby by Dr Hyde 04/10/2015 Appointment: (S) New [...] do not resolve or if any worse Kvfegfpeo-VNA-kareeppu fluids-monitor blood pressure-call if dizziness does not [...] apnea - order humidification for cpap - [place] home patient/[employer]- find out if they need [...] spine Lymes disease-sees Dr Carrillo-leilani specialist in [place], [place] CAD-HX [id number] by Dr Hyde . Hypertension - wel [...] previous levels of control. physical therapy at [facility] - water therapy for back eeg [...]
--- OUTSIDE RECORDS SUMMARY | 2020-05-05 12:21 | XMS REPORT | CCD ---
Author Author Emily Lakhani Organization [facility] Address [address] [place] [address] Phone Care Team Providers Care Sanitarian Name Role Phone PP Unavailable CCM Unavailable Summary Purpose Interface Exchange Insurance Providers Payer name Policy type / Coverage type Covered libertarian ID Effective Begin Date Effective End Date WPS Medicare Part B Medicare Part B [id number] Unknown [employer] Medicare Part B [id number] Unknown Family history Mother Diagnosis Age At [...] Retir ed 04/10/[address]: 590526179 Never smoker 04/10/[address]: 592759209 Never drinks alcohol 04/10/2015 Allergies, Adverse Reactions, [...] ICD-9: 780.4 ICD-10: R42 Active 06/01/2018 Unknown 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 ICD-10: E03.4 Active 11/18/2016 Unknown Essential (primary) hypertension ICD-9: 401.9 ICD-10: I10 Active 04/09/2015 Unknown Obstructive sleep ap bandar (adult) (pediatric) ICD-9: 327.23 ICD-10: G47.33 Active 08/06/2017 Unknown Low back pain ICD-9: 724.2 ICD-10: M54.5 Active 04/09/2015 Unknown Headache ICD-9: 784.0 ICD-10: [...] giddiness ICD-9: 780.4 ICD-10: R42 06/01/2018 Active 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 ICD-10: E03.4 11/18/2016 Active Essential (primary) hypertension ICD-9: 401.9 ICD-10: I10 04/09/2015 Active Obstructive sleep ap bandar (adult) (pediatric) ICD-9: 327.23 ICD-10: G47.33 08/06/2017 Active Low back pain ICD-9: 724.2 ICD-10: M54.5 04/09/2015 Active Headache ICD-9: 784.0 ICD-10: R51 [...] Instruc tions Start Date Stop Date Sta s Fill Instructions Imitrex 50 mg tablet RxNorm: 849344 TAKE WITH ONSET OF MIGRAINE- MAY TAKE AN ADDITIONAL DOSE IF NO RELIEF OF HEADACHE IN 1 HOUR- MAX OF 3 DOSES IN 24 HOURS Tablet(s) 06/14/2018 No Stop Date Active betamethasone gwendolyn te 0.1 % topical cream RxNorm: 132587 1 Application TOP TID 06/01/2018 06/10/2018 In active dexamethasone 4 mg t ablet RxNorm: 742605 1 Tablet(s) PO daily 06/01/2018 06/05/2018 Inactive Kenalog 40 mg/mL sadiq pension for injection RxNorm: 1907667 1.5 Milliliter(s) In j 05/24/2018 05/24/2018 In active amitriptyline 10 mg tablet RxNorm: 936990 1/2 TO 1 TABLET(S) PO QPM 01/21/2018 10/17/2018 Active [place] Thyroid 60 mg tablet RxNorm: 521984 1 Tablet(s) PO daily 01/12/2018 01/06/2019 Active carvedilol 3.125 mg tablet RxNorm: 507376 1 Tablet(s) PO BID 10/12/2017 No Stop Date Active Fiorinal-Codeine #3 30 mg-50 mg-325 mg-40 mg capsule RxNorm: 573340 1 Capsule(s) PO BID 10/12/2017 11/10/2017 Inactive progesterone microni zed 100 mg capsule RxNorm: 688768 1 Capsule(s) PO daily on days 1- 25 of each month 10/12/2017 01/11/2018 Inactive [place] Thyroid 90 mg tablet RxNorm: 741440 1/2 Tablet(s) PO melinda y 1/2 TABLET(S) PO DAILY 08/06/2017 01/11/2018 Inactive [place] Thyroid 90 mg tablet RxNorm: 773144 1/2 TABLET(S) PO DAILY 07/14/2017 08/05/2017 Inactive Keppra 500 mg tablet RxNorm: 720639 1 Tablet(s) PO BID 05/13/2017 08/05/2017 Inactive Deplin (algal oil) 1 5 mg-90.314 mg capsule RxNorm: TAKE ONE CAPSULE BY MOUTH O NE TIME DAILY 05/13/2017 01/11/2018 Inactive Keppra 250 mg tablet RxNorm: 702673 1 Tablet(s) PO daily 04/23/2017 04/22/2017 Inactive take 1 tab qd x 1 week then increase to BID Keppra 250 mg tablet RxNorm: 816352 1 Tablet(s) PO daily 04/23/2017 05/12/2017 Inactive take 1 tab qd x 1 week then increase to BID cyclobenzaprine 5 mg tablet RxNorm: 289418 1 Tablet(s) PO TID as needed 02/03/2017 02/22/2017 In active cyclobenzaprine 5 mg tablet RxNorm: 838467 1 Tablet(s) PO TID as needed 02/03/2017 02/02/2017 In active [place] Thyroid 90 mg tablet RxNorm: 387853 1/2 Tablet(s) PO daily 11/19/2016 03/18/2017 Inactive amitriptyline 10 mg tablet RxNorm: 844859 1/2 to 1 Tablet(s) PO QPM 11/19/2016 11/13/2017 Inactive fluconazole 50 mg ta blet RxNorm: 890145 1 Tablet(s) PO daily 08/20/2016 09/02/2016 Inactive [place] Thyroid 90 mg tablet RxNorm: 626625 1/2 Tablet(s) PO daily 08/11/2016 11/18/2016 Inactive Flagyl 500 mg tablet RxNorm: 549754 1 Tablet(s) PO TID 07/28/2016 01/11/2018 Inactive Flagyl 500 mg tablet RxNorm: 905855 1 Tablet(s) PO TID 07/17/2016 07/27/2016 Inactive amitriptyline 10 mg tablet RxNorm: 748333 1/2 to 1 Tablet(s) PO QPM 07/03/2016 10/30/2016 Inactive metronidazole 500 mg tablet RxNorm: 791331 1 Tablet(s) PO QID 07/03/2016 07/12/2016 Inactive amitriptyline 25 mg tablet RxNorm: 517171 1/2 -1 Tablet(s) PO Q HS as needed insomnia 06/26/2016 07/02/2016 Inactive vancomycin 125 mg ca psule RxNorm: 222958 1 Capsule(s) PO QID 06/20/2016 06/29/2016 Inactive [place] Thyroid 30 mg tablet RxNorm: 666811 1.5 Tablet(s) PO daily 06/20/2016 06/19/2016 Inactive [place] Thyroid 30 mg tablet RxNorm: 582411 1.5 Tablet(s) PO daily 06/20/2016 08/10/2016 Inactive fluconazole 50 mg ta blet RxNorm: 686177 1 Tablet(s) PO daily 06/16/2016 08/19/2016 Inactive amitriptyline 25 mg tablet RxNorm: 607244 1/2 -1 Tablet(s) PO Q HS as needed insomnia 06/12/2016 06/11/2016 Inactive amitriptyline 25 mg tablet RxNorm: 199007 1/2 -1 Tablet(s) PO Q HS as needed insomnia 06/12/2016 06/25/2016 Inactive vancomycin 125 mg ca psule RxNorm: 591147 1 Capsule(s) PO QID 06/12/2016 06/19/2016 Inactive fluconazole 50 mg ta blet RxNorm: 707630 1 Tablet(s) PO daily 06/12/2016 06/15/2016 Inactive Diflucan 150 mg tablet RxNorm: 006903 1 Tablet(s) PO daily 06/05/2016 06/09/2016 Inactive Deplin (algal oil) 1 5 mg-90.314 mg capsule RxNorm: 1 Capsule(s) PO daily 06/05/2016 06/04/2016 In active Diflucan 150 mg tablet RxNorm: 408766 1 Tablet(s) PO daily 06/05/2016 06/04/2016 Inactive Deplin (algal oil) 1 5 mg-90.314 mg capsule RxNorm: 1 Capsule(s) PO daily 06/05/2016 05/12/2017 In active nystatin 500,000 uni t tablet RxNorm: 593638 4 Tablet(s) PO daily 05/21/2016 09/17/2016 Inactive Vitamin D3 5,000 uni t tablet RxNorm: 022251 Tablet(s) PO daily 05/07/2016 No Stop Date Active nystatin 500,000 uni t tablet RxNorm: 589605 1 Tablet(s) PO Q4H 05/07/2016 05/20/2016 Inactive fluconazole 100 mg t ablet RxNorm: 081424 1 Tablet(s) PO daily 05/07/2016 06/11/2016 Inactive progesterone microni zed 100 mg capsule RxNorm: 739458 3 Capsule(s) PO daily on days 1- 25 of each month 05/07/2016 2017 Inactive metronidazole 500 mg tablet RxNorm: 878973 1 Tablet(s) PO TID 04/30/2016 05/09/2016 Inactive metronidazole 500 mg tablet RxNorm: 750740 1 Tablet(s) PO TID 04/30/2016 04/29/2016 Inactive vancomycin 125 mg ca psule RxNorm: 261785 1 Capsule(s) PO QID 04/29/2016 05/08/2016 Inactive vancomycin 125 mg ca psule RxNorm: 264866 1 Capsule(s) PO QID 04/29/2016 04/28/2016 Inactive Flagyl 500 mg tablet RxNorm: 821960 1 Tablet(s) PO TID 04/09/2016 04/08/2016 Inactive Flagyl 500 mg tablet RxNorm: 848501 1 Tablet(s) PO TID 04/09/2016 04/22/2016 Inactive carvedilol 3.125 mg tablet RxNorm: 193179 1 Tablet(s) PO BID 04/08/2016 2017 Inactive [place] Thyroid 60 mg tablet RxNorm: 013896 Tablet(s) PO 1 Tablet (s) daily 01/31/2016 06/19/2016 In active Pt request 90 day supply 11/23/2015 11:1 1:54 AM [place] Thyroid 30 mg tablet RxNorm: 715479 1 Tablet(s) daily 01/28/2016 01/30/2016 Inactive Pt request 90 day supply 11/23/2015 11:1 1:54 AM [place] Thyroid 30 mg tablet RxNorm: 958555 1 Tablet(s) daily 01/21/2016 01/27/2016 Inactive Pt request 90 day supply 11/23/2015 11:1 1:54 AM [place] Thyroid 30 mg tablet RxNorm: 227024 Tablet(s) TAKE ONE AN D ONE-HALF (45 MG) TABLET BY MOUTH EVERY DAY 01/02/2016 01/20/2016 Inactive Pt request 90 day supply 11/23/2015 11:11:54 AM Xylocaine 20 mg/mL ( 2 %) injection solution RxNorm: 1353960 2.5 Milliliter(s) In j BID with cefepime 12/27/2015 01/25/2016 Inactive cefepime 1 gram solu tion for injection RxNorm: 2387500 Inj 12/1012/27/2015 Inactive [place] Thyroid 30 mg tablet RxNorm: 069856 TAKE ONE TABLET BY MO [facility] EVERY DAY 11/23/2015 01/01/2016 In active Pt request 90 day supply 11/23/2015 11:1 1:54 AM Voltaren 1 % topical gel RxNorm: 639713 2 Gram(s) TOP QID 09/24/2015 12/26/2015 Inactive cyclobenzaprine 10 m g tablet RxNorm: 177708 1 Tablet(s) PO Q6 as needed 08/27/2015 05/06/2016 In active [place] Thyroid 30 mg tablet RxNorm: 127542 1 Tablet(s) PO daily 06/21/2015 06/20/2015 Inactive [place] Thyroid 30 mg tablet RxNorm: 655785 1 Tablet(s) PO daily 06/21/2015 11/22/2015 Inactive Synthroid 25 mcg tablet RxNorm: 098633 1 Tablet(s) PO daily 06/07/2015 06/06/2015 Inactive KASEY-1 Synthroid 25 mcg tablet RxNorm: 920427 1 Tablet(s) PO daily 06/07/2015 06/20/2015 Inactive KASEY-1 ofloxacin 0.3 % ear drops RxNorm: 966643 1-2 Drop(s) OTIC OU Q 4H as needed No Start Date Active Aspirin Low Dose 81 mg tablet,delayed release RxNorm: 370788 1 Tablet(s) PO daily No Start Date Active tyrosine (bulk) powder RxNorm: 1 Miscellaneous dash every am No Start Date Active arginine (L-arginine ) oral RxNorm: 1091 oral No Sta rt Date Active glutathione RxNorm: 4890 miscellaneous No Start Date Active Plaquenil 200 mg tablet RxNorm: 779964 1 Tablet(s) PO BID No Start Date 05/19/2016 Inactive fluconazole 100 mg t ablet RxNorm: 080090 1/2 Tablet(s) PO daily No Start Date 05/06/2016 Inactive fluconazole 150 mg t ablet RxNorm: 155179 1 Tablet(s) PO QW x4 No Start Date 12/26/2015 Inactive progesterone microni zed 100 mg capsule RxNorm: 491536 2 Capsule(s) PO daily No Start Date 05/06/2016 Inactive nystatin 500,000 uni t tablet RxNorm: 839292 1 Tablet(s) PO QID No Start Date 05/06/2016 Inactive cyclobenzaprine 10 m g tablet RxNorm: 514757 1 Tablet(s) PO Q6 as needed No Start Date 08/26/2015 Inactive vitamin K oral RxNorm: 8308 oral No Start Date 12/26/2015 Inactive carvedilol 3.125 mg tablet RxNorm: 260041 1 Tablet(s) PO daily No Start Date 04/07/2016 Inactive lisinopril 5 mg tablet RxNorm: 564202 1 Tablet(s) PO daily No Start Date 05/12/2017 Inactive azithromycin 250 mg tablet RxNorm: 057021 1 Tablet(s) PO daily will incrase to 2 per day No Start Date 12/26/2015 Inactive Probiotic 4X oral RxNorm: 6205586 oral No Start Date 01/07/2016 Inactive Imitrex 50 mg tablet RxNorm: 126413 TAKE WITH ONSET OF MIGRAINE- MAY TAKE AN ADDITIONAL DOSE IF NO RELIEF OF HEADACHE IN 1 HOUR- MAX OF 3 DOSES IN 24 HOURS No Start Date 06/13/2018 Inactive Vitamin D3 1,000 uni t tablet RxNorm: 636756 Tablet(s) PO daily No Start Date 05/06/2016 Inactive progesterone microni zed 100 mg capsule RxNorm: 518056 3 Capsule(s) PO daily rx from [facility] No Start Date 12/26/2015 Inactive lorazepam 0.5 mg tablet RxNorm: 746032 1/2-1 Tablet(s) PO daily as needed No Start Date 03/10/2016 Inactive Multiple Vitamin oral RxNorm: 87249 oral No Start Date 05/06/2016 Inactive Medication Administered Medication Codes Instruc tions Start Date Status Kenalog 40 mg/mL suspension for injection RxNorm: 1670703 1.5Milliliter 05/24/2018 No longer Active cefepime 1 gram solution for injection RxNorm: 3819899 12/27/2015 No longer A ctive Immunizations No Immunization data Assessments Condition Codes Effectiv e Dates Encounter for general adult medical exam ination with abnormal findings ICD-10: Z00.01 ICD-9: V70.0 09/10/2018 Dizziness and giddiness ICD-10: R42 ICD-9: 780.4 06/01/2018 Allergic contact dermatitis due to plants, except food ICD-10: L23.7 ICD-9: 692.6 06/01/2018 Atrophy of thyroid (acquired) ICD-10 : E03.4 ICD-9: 244.8 05/19/2018 Essential (primary) hypertension ICD -10: I10 ICD-9: 401.9 05/19/2018 Obstructive sleep apnea (adult) (pediatric) ICD-10: G47.33 ICD-9: 327.23 05/19/2018 Low back pain ICD-10: M54.5 ICD-9: 724.2 01/12/2018 Headache ICD-10: R51 ICD-9: 784.0 10/12/2017 Generalized [...] Effective Dates Notes Annual Medicare Wellness Exam 09/10/2018 rash 06/01/2018 [...] Item Item Code Result Date Comp Metabolic Bgk051 NA 145 mEq/L 06/14/2018 Comp Metabolic Trs922 K 4.0 mEq/L 06/14/2018 Comp Metabolic Mrx737 CL 106 mEq/L 06/14/2018 Comp Metabolic Ppc365 CO2 31.0 mEq/L 06/14/2018 Comp Metabolic Zqp114 AN ION GAP 12 06/14/2018 Comp Metabolic Bzp935 GL UCOSE 88 mg/dL 06/14/2018 Comp Metabolic Ckx369 Cr eat 0.7 mg/dL 06/14/2018 Comp Metabolic Han421 eG FR 92 ml/min/1.73m2 06/14 Comp Metabolic Ibv591 BUN 9 mg/dL 06/14/2018 Comp Metabolic Dba112 B/ C Ratio 13.6 Ratio 06/14/2018 Comp Metabolic Pyj061 CA LCIUM 9.0 mg/dL 06/14/2018 Comp Metabolic Vdb203 AL K PHOS 36 U/L 06/14/2018 Comp Metabolic Rpv942 T(SGOT) 21 U/L 06/14/2018 Comp Metabolic Wcd436 AL T(SGPT) 22 U/L 06/14/2018 Comp Metabolic Gid230 BI LI T 0.3 mg/dL 06/14/2018 Comp Metabolic Myx645 AL BUMIN 3.8 g/dL 06/14/2018 Comp Metabolic Uix967 TP RO 5.8 g/dL 06/14/2018 Comp Metabolic Jvc383 GL OB 2.0 g/dL 06/14/2018 Comp Metabolic Txs880 A/ G Ratio 2.0 Ratio 06/14/2018 Comp Metabolic Wey566 Os mo 287 mOsmo 06/14/2018 Free T4 Fyj207 FREE T4 0.66 ng/dL 06/14/2018 Tsh Ord6 [...] 13.7 g/dl 06/14/2018 Cbc With Differential Ord2 Neut% 47.6 % 06/14/2018 Cbc With Differential Ord2 HCT 41.7 % 06/14/2018 Cbc With Differential Ord2 MCV 90.8 fl 06/14/2018 Cbc With Differential Ord2 Lymph% 32.9 % 06/14/2018 Cbc With Differential Ord2 MCH 29.8 pg 06/14/2018 Cbc With Differential Ord2 [place]% 13.9 % 06/14/2018 Cbc With Differential Ord2 [...] 1.40 K/ul 06/14/2018 Cbc With Differential Ord2 [place] ABS# 0.6 K/ul 06/14/2018 Cbc With Differential Ord2 Eos ABS# 0.2 K/ul 06/14/2018 Cbc With Differential Ord2 Baso ABS# 0.0 K/ul 06/14/2018 Free T4 Fpc572 FREE T4 0.63 ng/dL 01/05/2018 Lipid Ord30 CHOL 246 mg/dL 01/05/2018 Lipid Ord30 HDL 79.0 mg/dl 01/05/2018 Lipid Ord30 TRIG 124 mg/dL 01/05/2018 Lipid Ord30 LDL 142 mg/dL 01/05/2018 Lipid Ord30 C/HDL 3.1 Ratio 01/05/2018 Tsh Ord6 TSH (3rd IS) 1.48 uIU/mL 01/05/2018 Tsh Ord6 hTSH II 2.03 uIU/mL 08/07/2017 Comp Metabolic Uzq001 NA 142 mEq/L 08/07/2017 Comp Metabolic Fwb285 K 4.1 mEq/L 08/07/2017 Comp Metabolic Hcf568 CL 105 mEq/L 08/07/2017 Comp Metabolic Klz643 CO2 27.0 mEq/L 08/07/2017 Comp Metabolic Gbe962 AN ION GAP 14 08/07/2017 Comp Metabolic Gya647 GL UCOSE 89 mg/dL 08/07/2017 Comp Metabolic Yqo774 Cr eat 0.7 mg/dL 08/07/2017 Comp Metabolic Vww622 eG FR 86 ml/min/1.73m2 08/07 Comp Metabolic Gjy748 BUN 16 mg/dL 08/07/2017 Comp Metabolic Nlc946 B/ C Ratio 22.9 Ratio 08/07/2017 Comp Metabolic Jky140 CA LCIUM 9.8 mg/dL 08/07/2017 Comp Metabolic Djg114 AL K PHOS 41 U/L 08/07/2017 Comp Metabolic Gvf216 T(SGOT) 26 U/L 08/07/2017 Comp Metabolic Fue455 AL T(SGPT) 21 U/L 08/07/2017 Comp Metabolic Jay958 BI LI T 0.5 mg/dL 08/07/2017 Comp Metabolic Fwy206 AL BUMIN 4.3 g/dL 08/07/2017 Comp Metabolic Fbz501 TP RO 6.6 g/dL 08/07/2017 Comp Metabolic Xlf387 GL OB 2.3 g/dL 08/07/2017 Comp Metabolic Oap820 A/ G Ratio 1.9 Ratio 08/07/2017 Comp Metabolic Baz500 Os mo 284 mOsmo 08/07/2017 Free T4 Ile642 FREE T4 0.64 ng/dL 08/07/2017 Lipid Ord30 [...] 42.1 % 08/07/2017 Cbc With Differential Ord2 MCV 90.3 fl 08/07/2017 Cbc With Differential Ord2 Lymph% 35.1 % 08/07/2017 Cbc With Differential Ord2 MCH 30.3 pg 08/07/2017 Cbc With Differential Ord2 [place]% 13.9 % 08/07/2017 Cbc With Differential Ord2 [...] 1.49 K/ul 08/07/2017 Cbc With Differential Ord2 [place] ABS# 0.6 K/ul 08/07/2017 Cbc With Differential [...] 30.5 pg 11/20/2016 Cbc With Differential Ord2 [place]% 10.8 % 11/20/2016 Cbc With Differential Ord2 [...] 1.62 K/ul 11/20/2016 Cbc With Differential Ord2 [place] ABS# 0.5 K/ul 11/20/2016 Cbc With Differential Ord2 Eos ABS# 0.2 K/ul 11/20/2016 Cbc With Differential Ord2 Baso ABS# 0.0 K/ul 11/20/2016 Free T4 Gyj253 FREE T4 0.80 ng/dL 11/20/2016 Tsh Ord6 hTSH II 1.35 uIU/mL 11/20/2016 Comp Metabolic Aae842 NA 139 mEq/L 11/20/2016 Comp Metabolic Bqy775 K 3.9 mEq/L 11/20/2016 Comp Metabolic Qmq751 CL 103 mEq/L 11/20/2016 Comp Metabolic Quo709 CO2 30.0 mEq/L 11/20/2016 Comp Metabolic Fxg265 AN ION GAP 10 11/20/2016 Comp Metabolic Kce542 GL UCOSE 85 mg/dL 11/20/2016 Comp Metabolic Upk211 Cr eat 0.7 mg/dL 11/20/2016 Comp Metabolic Ntg948 eG FR 93 ml/min/1.73m2 11/20 Comp Metabolic Syp769 BUN 12 mg/dL 11/20/2016 Comp Metabolic Xei177 B/ C Ratio 18.2 Ratio 11/20/2016 Comp Metabolic Kor999 CA LCIUM 9.1 mg/dL 11/20/2016 Comp Metabolic Aos972 AL K PHOS 34 U/L 11/20/2016 Comp Metabolic Ubq440 T(SGOT) 18 U/L 11/20/2016 Comp Metabolic Qix496 AL T(SGPT) 14 U/L 11/20/2016 Comp Metabolic Ulh260 BI LI T 0.5 mg/dL 11/20/2016 Comp Metabolic Ftk775 AL BUMIN 4.2 g/dL 11/20/2016 Comp Metabolic Cjj049 TP RO 6.3 g/dL 11/20/2016 Comp Metabolic Pwm766 GL OB 2.1 g/dL 11/20/2016 Comp Metabolic Myo465 A/ G Ratio 2.0 Ratio 11/20/2016 Comp Metabolic Mdt605 Os mo 277 mOsmo 11/20/2016 Lipid Ord30 CHOL 189 mg/dL 11/20/2016 Lipid Ord30 HDL 81.0 mg/dl 11/20/2016 Lipid Ord30 TRIG 77 mg/dL 11/20/2016 Lipid Ord30 LDL 93 mg/dL 11/20/2016 Lipid Ord30 C/HDL 2.3 Ratio 11/20/2016 Testosterone Free Direct 330843 FREE TESTOSTERONE 0.7 pg/mL 10/06/2016 Estradiol 220382 ESTRADI OL 5.9 pg/mL 10/03/2016 Cortisol 877091 CORTISOL 23 ug/dL 10/03/2016 Progesterone Gdr825 Prog 17.38 ng/mL 10/01/2016 Free T4 Wjv068 FREE T4 0.66 ng/dL 08/13/2016 Tsh Ord6 hTSH II 0.99 uIU/mL 08/13/2016 Testosterone Free Direct 300804 FREE TESTOSTERONE <0.2 pg/mL 07/05/2016 Estradiol 674173 ESTRADI OL <5.0 pg/mL 07/03/2016 Progesterone Jzb649 Prog 23.37 ng/mL 07/02/2016 Tsh Ord6 hTSH II 0.24 uIU/mL 06/17/2016 Free T4 Qzx011 FREE T4 0.86 ng/dL 06/17/2016 Estradiol 370521 ESTRADI OL <5.0 pg/mL 05/21/2016 Comp Metabolic Lbx421 NA 140 mEq/L 05/20/2016 Comp Metabolic Ugj237 K 4.1 mEq/L 05/20/2016 Comp Metabolic Wfx896 CL 106 mEq/L 05/20/2016 Comp Metabolic Ixp591 CO2 26.0 mEq/L 05/20/2016 Comp Metabolic Xmi030 AN ION GAP 12 05/20/2016 Comp Metabolic Ysi295 GL UCOSE 81 mg/dL 05/20/2016 Comp Metabolic Vrt647 Cr eat 0.5 mg/dL 05/20/2016 Comp Metabolic Vyl271 eG FR 119 ml/min/1.73m2 05/09 Comp Metabolic Oqu408 BUN 15 mg/dL 05/20/2016 Comp Metabolic Rsg640 B/ C Ratio 28.3 Ratio 05/20/2016 Comp Metabolic Eup075 CA LCIUM 8.9 mg/dL 05/20/2016 Comp Metabolic Uyu021 AL K PHOS 36 U/L 05/20/2016 Comp Metabolic Peq564 T(SGOT) 25 U/L 05/20/2016 Comp Metabolic Wfv330 AL T(SGPT) 23 U/L 05/20/2016 Comp Metabolic Jvp523 BI LI T 0.4 mg/dL 05/20/2016 Comp Metabolic Lmq267 AL BUMIN 3.7 g/dL 05/20/2016 Comp Metabolic Cbm165 TP RO 5.9 g/dL 05/20/2016 Comp Metabolic Pin161 GL OB 2.2 g/dL 05/20/2016 Comp Metabolic Qbq865 A/ G Ratio 1.7 Ratio 05/20/2016 Comp Metabolic Wzz362 Os mo 279 mOsmo 05/20/2016 Progesterone Tpm181 Prog 8.44 ng/mL 05/20/2016 Cbc With Differential [...] 30.2 pg 05/20/2016 Cbc With Differential Ord2 [place]% 13.0 % 05/20/2016 Cbc With Differential Ord2 [...] 0.85 K/ul 05/20/2016 Cbc With Differential Ord2 [place] ABS# 0.6 K/ul 05/20/2016 Cbc With Differential [...] collection if refrigerated) 05/20/2016 Testosterone Free Direct 599330 FREE TESTOSTERONE 0.6 pg/mL 05/19/2016 Estradiol 880906 ESTRADI OL <5.0 pg/mL 05/16/2016 Comp Metabolic Qrl660 NA 140 mEq/L 05/15/2016 Comp Metabolic Umi367 K 3.8 mEq/L 05/15/2016 Comp Metabolic Oqm177 CL 106 mEq/L 05/15/2016 Comp Metabolic Dqd121 CO2 26.0 mEq/L 05/15/2016 Comp Metabolic Nqq609 AN ION GAP 12 05/15/2016 Comp Metabolic Mbc229 GL UCOSE 77 mg/dL 05/15/2016 Comp Metabolic Bsw832 Cr eat 0.5 mg/dL 05/15/2016 Comp Metabolic Dgb612 eG FR 144 ml/min/1.73m2 05/2016 Comp Metabolic Esx874 BUN 18 mg/dL 05/15/2016 Comp Metabolic Plc242 B/ C Ratio 40.0 Ratio 05/15/2016 Comp Metabolic Icr641 CA LCIUM 8.8 mg/dL 05/15/2016 Comp Metabolic Exg218 AL K PHOS 28 U/L 05/15/2016 Comp Metabolic Bhl701 T(SGOT) 19 U/L 05/15/2016 Comp Metabolic Omr169 AL T(SGPT) 19 U/L 05/15/2016 Comp Metabolic Dsv739 BI LI T 0.5 mg/dL 05/15/2016 Comp Metabolic Rsi411 AL BUMIN 3.6 g/dL 05/15/2016 Comp Metabolic Cnt412 TP RO 5.6 g/dL 05/15/2016 Comp Metabolic Fps536 GL OB 2.0 g/dL 05/15/2016 Comp Metabolic Ert741 A/ G Ratio 1.8 Ratio 05/15/2016 Comp Metabolic Dee824 Os mo 280 mOsmo 05/15/2016 Progesterone Beh528 Prog 9.08 ng/mL 05/15/2016 Cbc With Differential [...] 29.9 pg 05/15/2016 Cbc With Differential Ord2 [place]% 14.1 % 05/15/2016 Cbc With Differential Ord2 [...] 1.42 K/ul 05/15/2016 Cbc With Differential Ord2 [place] ABS# 0.6 K/ul 05/15/2016 Cbc With Differential [...] Ord28 U-Com None 05/15/2016 Testosterone Free Direct 236309 FREE TESTOSTERONE 0.2 pg/mL 05/09/2016 Estradiol 216486 ESTRADI OL <5.0 pg/mL 05/07/2016 Comp Metabolic Gnc564 NA 141 mEq/L 05/06/2016 Comp Metabolic Kik612 K 3.6 mEq/L 05/06/2016 Comp Metabolic Mib704 CL 107 mEq/L 05/06/2016 Comp Metabolic Jcn712 CO2 28.0 mEq/L 05/06/2016 Comp Metabolic Ilv809 AN ION GAP 10 05/06/2016 Comp Metabolic Sfd024 GL UCOSE 138 mg/dL 05/06/2016 Comp Metabolic Oio348 Cr eat 0.5 mg/dL 05/06/2016 Comp Metabolic Rjc577 eG FR 119 ml/min/1.73m2 04/10 Comp Metabolic Jgi257 BUN 16 mg/dL 05/06/2016 Comp Metabolic Hcp638 B/ C Ratio 30.2 Ratio 05/06/2016 Comp Metabolic Tjo419 CA LCIUM 8.9 mg/dL 05/06/2016 Comp Metabolic Xjo301 AL K PHOS 29 U/L 05/06/2016 Comp Metabolic Oua310 T(SGOT) 20 U/L 05/06/2016 Comp Metabolic Kra909 AL T(SGPT) 21 U/L 05/06/2016 Comp Metabolic Ktc900 BI LI T 0.4 mg/dL 05/06/2016 Comp Metabolic Qhm931 AL BUMIN 3.6 g/dL 05/06/2016 Comp Metabolic Mpo406 TP RO 5.5 g/dL 05/06/2016 Comp Metabolic Jyz811 GL OB 1.9 g/dL 05/06/2016 Comp Metabolic Bps538 A/ G Ratio 1.9 Ratio 05/06/2016 Comp Metabolic Ato418 Os mo 285 mOsmo 05/06/2016 Urinalysis Ord28 [...] hours from collection if refrigerated) 05/06/2016 Progesterone Faz252 Prog 0.98 ng/mL 05/06/2016 Cbc With Differential [...] 29.2 pg 05/06/2016 Cbc With Differential Ord2 [place]% 10.1 % 05/06/2016 Cbc With Differential Ord2 [...] 1.16 K/ul 05/06/2016 Cbc With Differential Ord2 [place] ABS# 0.4 K/ul 05/06/2016 Cbc With Differential [...] 29.6 pg 04/29/2016 Cbc With Differential Ord2 [place]% 13.1 % 04/29/2016 Cbc With Differential Ord2 [...] 1.42 K/ul 04/29/2016 Cbc With Differential Ord2 [place] ABS# 0.5 K/ul 04/29/2016 Cbc With Differential Ord2 Eos ABS# 0.2 K/ul 04/29/2016 Cbc With Differential Ord2 Baso ABS# 0.0 K/ul 04/29/2016 Comp Metabolic Wrg026 NA 141 mEq/L 04/29/2016 Comp Metabolic Lpn455 K 4.0 mEq/L 04/29/2016 Comp Metabolic Ens633 CL 108 mEq/L 04/29/2016 Comp Metabolic Obz983 CO2 27.0 mEq/L 04/29/2016 Comp Metabolic Laa759 AN ION GAP 10 04/29/2016 Comp Metabolic Hwi197 GL UCOSE 69 mg/dL 04/29/2016 Comp Metabolic Yrw845 Cr eat 0.5 mg/dL 04/29/2016 Comp Metabolic Lsz708 eG FR 122 ml/min/1.73m2 04/10 Comp Metabolic Mls676 BUN 19 mg/dL 04/29/2016 Comp Metabolic Gvm260 B/ C Ratio 36.5 Ratio 04/29/2016 Comp Metabolic Nnm550 CA LCIUM 9.1 mg/dL 04/29/2016 Comp Metabolic Ues194 AL K PHOS 31 U/L 04/29/2016 Comp Metabolic Vgm328 T(SGOT) 20 U/L 04/29/2016 Comp Metabolic Urh833 AL T(SGPT) 22 U/L 04/29/2016 Comp Metabolic Zjl509 BI LI T 0.6 mg/dL 04/29/2016 Comp Metabolic Gbg676 AL BUMIN 3.8 g/dL 04/29/2016 Comp Metabolic Oon788 TP RO 5.9 g/dL 04/29/2016 Comp Metabolic Vjm917 GL OB 2.1 g/dL 04/29/2016 Comp Metabolic Cxr044 A/ G Ratio 1.8 Ratio 04/29/2016 Comp Metabolic Xuk833 Os mo 282 mOsmo 04/29/2016 Progesterone Fll703 Prog 5.99 ng/mL 04/29/2016 Urinalysis Ord28 U-Color [...] from collection if refrigerated) 04/25/2016 Comp Metabolic Tzo395 NA 138 mEq/L 04/25/2016 Comp Metabolic Kky249 K 3.6 mEq/L 04/25/2016 Comp Metabolic Kgz127 CL 105 mEq/L 04/25/2016 Comp Metabolic Tck526 CO2 27.0 mEq/L 04/25/2016 Comp Metabolic Smg728 AN ION GAP 10 04/25/2016 Comp Metabolic Xwd093 GL UCOSE 190 mg/dL 04/25/2016 Comp Metabolic Cfn098 Cr eat 0.5 mg/dL 04/25/2016 Comp Metabolic Pps780 eG FR 128 ml/min/1.73m2 04/09 Comp Metabolic Ovs962 BUN 17 mg/dL 04/25/2016 Comp Metabolic Fuc308 B/ C Ratio 34.0 Ratio 04/25/2016 Comp Metabolic Jpj815 CA LCIUM 8.7 mg/dL 04/25/2016 Comp Metabolic Nju433 AL K PHOS 32 U/L 04/25/2016 Comp Metabolic Zap529 T(SGOT) 23 U/L 04/25/2016 Comp Metabolic Kpe412 AL T(SGPT) 22 U/L 04/25/2016 Comp Metabolic Xln774 BI LI T 0.5 mg/dL 04/25/2016 Comp Metabolic Img064 AL BUMIN 3.6 g/dL 04/25/2016 Comp Metabolic Dpw809 TP RO 5.5 g/dL 04/25/2016 Comp Metabolic Tcs523 GL OB 1.9 g/dL 04/25/2016 Comp Metabolic Kgv785 A/ G Ratio 1.9 Ratio 04/25/2016 Comp Metabolic Ioq962 Os mo 282 mOsmo 04/25/2016 Cbc With [...] 29.6 pg 04/25/2016 Cbc With Differential Ord2 [place]% 13.0 % 04/25/2016 Cbc With Differential Ord2 [...] 1.01 K/ul 04/25/2016 Cbc With Differential Ord2 [place] ABS# 0.4 K/ul 04/25/2016 Cbc With Differential [...] 29.2 pg 04/04/2016 Cbc With Differential Ord2 [place]% 16.1 % 04/04/2016 Cbc With Differential Ord2 [...] 1.32 K/ul 04/04/2016 Cbc With Differential Ord2 [place] ABS# 0.8 K/ul 04/04/2016 Cbc With Differential Ord2 Eos ABS# 0.2 K/ul 04/04/2016 Cbc With Differential Ord2 Baso ABS# 0.0 K/ul 04/04/2016 Comp Metabolic Xlv256 NA 140 mEq/L 04/04/2016 Comp Metabolic Reo119 K 4.1 mEq/L 04/04/2016 Comp Metabolic Eaf949 CL 106 mEq/L 04/04/2016 Comp Metabolic Hzy630 CO2 27.0 mEq/L 04/04/2016 Comp Metabolic Hdi615 AN ION GAP 11 04/04/2016 Comp Metabolic Wcg420 GL UCOSE 71 mg/dL 04/04/2016 Comp Metabolic Hfi129 Cr eat 0.5 mg/dL 04/04/2016 Comp Metabolic Zrw306 eG FR 131 ml/min/1.73m2 03/10 Comp Metabolic Kyk839 BUN 14 mg/dL 04/04/2016 Comp Metabolic Olx448 B/ C Ratio 28.6 Ratio 04/04/2016 Comp Metabolic Nht103 CA LCIUM 9.1 mg/dL 04/04/2016 Comp Metabolic Tld966 AL K PHOS 42 U/L 04/04/2016 Comp Metabolic Vcf384 T(SGOT) 18 U/L 04/04/2016 Comp Metabolic Pmi663 AL T(SGPT) 17 U/L 04/04/2016 Comp Metabolic Dlj050 BI LI T 0.4 mg/dL 04/04/2016 Comp Metabolic Fho549 AL BUMIN 3.8 g/dL 04/04/2016 Comp Metabolic Kli188 TP RO 6.0 g/dL 04/04/2016 Comp Metabolic Dgk912 GL OB 2.2 g/dL 04/04/2016 Comp Metabolic Ihy885 A/ G Ratio 1.7 Ratio 04/04/2016 Comp Metabolic Sec689 Os mo 278 mOsmo 04/04/2016 Urinalysis Ord28 [...] 33.2 % 03/28/2016 Cbc With Differential Ord2 Bladen% 11.7 % 03/28/2016 Cbc With Differential Ord2 [...] 1.14 K/ul 03/28/2016 Cbc With Differential Ord2 [place] ABS# 0.4 K/ul 03/28/2016 Cbc With Differential Ord2 Eos ABS# 0.1 K/ul 03/28/2016 Cbc With Differential Ord2 Baso ABS# 0.0 K/ul 03/28/2016 Cbc With Differential Ord2 New Analyzer Notice Please note new ref ranges s tarting 11-21-2015 due to implemntation of new five part differential hematolgy analyzer. 03/28/2016 Comp Metabolic Ruo071 NA 137 mEq/L 03/28/2016 Comp Metabolic Lpk981 K 3.5 mEq/L 03/28/2016 Comp Metabolic Fib577 CL 105 mEq/L 03/28/2016 Comp Metabolic Jui234 CO2 27.0 mEq/L 03/28/2016 Comp Metabolic Msu598 AN ION GAP 9 03/28/2016 Comp Metabolic Dkw996 GL UCOSE 174 mg/dL 03/28/2016 Comp Metabolic Ceg859 Cr eat 0.5 mg/dL 03/28/2016 Comp Metabolic Jmm872 eG FR 131 ml/min/1.73m2 03/10 Comp Metabolic Rxt863 BUN 13 mg/dL 03/28/2016 Comp Metabolic Tgb293 B/ C Ratio 26.5 Ratio 03/28/2016 Comp Metabolic Dju934 CA LCIUM 8.7 mg/dL 03/28/2016 Comp Metabolic Hoc383 AL K PHOS 31 U/L 03/28/2016 Comp Metabolic Fbr975 T(SGOT) 20 U/L 03/28/2016 Comp Metabolic Ymt110 AL T(SGPT) 19 U/L 03/28/2016 Comp Metabolic Dti299 BI LI T 0.4 mg/dL 03/28/2016 Comp Metabolic Cor669 AL BUMIN 3.5 g/dL 03/28/2016 Comp Metabolic Ouf291 TP RO 5.3 g/dL 03/28/2016 Comp Metabolic Jlp070 GL OB 1.8 g/dL 03/28/2016 Comp Metabolic Hsq062 A/ G Ratio 2.0 Ratio 03/28/2016 Comp Metabolic Jta838 Os mo 278 mOsmo 03/28/2016 Urinalysis Ord28 [...] collection if refrigerated) 03/28/2016 Testosterone Free Direct [id number] FREE TESTOSTERONE <0.2 pg/mL 03/13/2016 Estradiol 526491 ESTRADI OL <5.0 pg/mL 03/12/2016 Progesterone Nfx563 Prog 0.56 ng/mL 03/10/2016 Homocyst(E)Ine Plasma 906084 HOMOCYSTEINE, TOTAL 10.9 umol/L 01/18/2016 Mthfr 802603 MTHFR C677T: HETEROZYGOUS MUTATION DETECTED 02/2016 Mthfr 069340 MTHFR A1298 C: HETEROZYGOUS MUTATION DETECTED 01/11/2016 Mthfr 119816 INTERPRETAT ION: 01/11/2016 Iodine Serum 159184 IOD INE, SERUM 131.0 ug/L 01/10/2016 Comp Metabolic Nkk142 NA 139 mEq/L 01/07/2016 Comp Metabolic Xpn129 K 4.0 mEq/L 01/07/2016 Comp Metabolic Lix755 CL 104 mEq/L 01/07/2016 Comp Metabolic Rce725 CO2 26.0 mEq/L 01/07/2016 Comp Metabolic Eyo510 AN ION GAP 13 01/07/2016 Comp Metabolic Law488 GL UCOSE 86 mg/dL 01/07/2016 Comp Metabolic Vzb165 Cr eat 0.6 mg/dL 01/07/2016 Comp Metabolic Szx526 eG FR 100 ml/min/1.73m2 12/11 Comp Metabolic Idc298 BUN 18 mg/dL 01/07/2016 Comp Metabolic Ras687 B/ C Ratio 29.0 Ratio 01/07/2016 Comp Metabolic Ohx552 CA LCIUM 9.4 mg/dL 01/07/2016 Comp Metabolic Chx666 AL K PHOS 40 U/L 01/07/2016 Comp Metabolic Pce543 T(SGOT) 20 U/L 01/07/2016 Comp Metabolic Wtn352 AL T(SGPT) 24 U/L 01/07/2016 Comp Metabolic Wsi919 BI LI T 0.6 mg/dL 01/07/2016 Comp Metabolic Avz273 AL BUMIN 4.1 g/dL 01/07/2016 Comp Metabolic Qav590 TP RO 6.4 g/dL 01/07/2016 Comp Metabolic Cum348 GL OB 2.3 g/dL 01/07/2016 Comp Metabolic Amh979 A/ G Ratio 1.8 Ratio 01/07/2016 Comp Metabolic Qzx596 Os mo 279 mOsmo 01/07/2016 Tsh Ord6 [...] Ord28 U-Com Culture to follow 11/26/2015 Progesterone Ibq211 Prog >40.00 ng/mL 11/26/2015 Testosterone Free Direct [id number] FREE TESTOSTERONE 0.6 pg/mL 10/01/2015 Estradiol 071014 ESTRADI OL <5.0 pg/mL 09/26/2015 Urinalysis Ord28 [...] from collection if refrigerated) 09/25/2015 Comp Metabolic Syo608 NA 142 mEq/L 09/25/2015 Comp Metabolic Yjb054 K 4.3 mEq/L 09/25/2015 Comp Metabolic Doj247 CL 110 mEq/L 09/25/2015 Comp Metabolic Bty113 CO2 23.0 mEq/L 09/25/2015 Comp Metabolic Vgp626 AN ION GAP 13 09/25/2015 Comp Metabolic Nxj974 GL UCOSE 76 mg/dL 09/25/2015 Comp Metabolic Lsh564 Cr eat 0.8 mg/dL 09/25/2015 Comp Metabolic Fhv054 eG FR 79 ml/min/1.73m2 09/25 Comp Metabolic Qjd323 BUN 17 mg/dL 09/25/2015 Comp Metabolic Hgp637 B/ C Ratio 22.4 Ratio 09/25/2015 Comp Metabolic Xkc315 CA LCIUM 9.4 mg/dL 09/25/2015 Comp Metabolic Qyv045 AL K PHOS 45 U/L 09/25/2015 Comp Metabolic Ryn629 T(SGOT) 20 U/L 09/25/2015 Comp Metabolic Ita373 AL T(SGPT) 18 U/L 09/25/2015 Comp Metabolic Lir544 BI LI T 0.5 mg/dL 09/25/2015 Comp Metabolic Btf064 AL BUMIN 4.0 g/dL 09/25/2015 Comp Metabolic Bkl832 TP RO 6.2 g/dL 09/25/2015 Comp Metabolic Xyw988 GL OB 2.2 g/dL 09/25/2015 Comp Metabolic Oib778 A/ G Ratio 1.8 Ratio 09/25/2015 Comp Metabolic Nyq355 Os mo 283 mOsmo 09/25/2015 Tsh Ord6 hTSH II 4.05 uIU/mL 09/25/2015 Progesterone Vwx659 Prog 21.38 ng/mL 09/25/2015 Free T4 Pcd064 FREE T4 0.78 ng/dL 09/25/2015 Cbc With [...] RDW 14.3 % 09/25/2015 Testosterone Free Direct [id number] FREE TESTOSTERONE 1.2 pg/mL 08/31/2015 Estradiol 755310 ESTRADI OL <5.0 pg/mL 08/29/2015 Progesterone Khy551 Prog 4.37 ng/mL 08/28/2015 Fungal Screen I 928916 * *ASPERGILLUS AB BY ID . 07/23/2015 Fungal Screen I 040373 A SPERGILLUS AB BY ID None Detected 015 Fungal Screen I 429468 * *BLASTOMYCES ANTIBODY BY CF & ID . 07/23/2015 Fungal Screen I 995931 B LASTOMYCES AB,CF <1:8 07/23/2015 Fungal Screen I 508329 B LASTOMYCES AB,ID None Detected 015 Fungal Screen I 440843 * *MAXINE ANTIBODY BY ID . 07/23/2015 Fungal Screen I 662922 C ANDIDA AB BY ID Detected 07/23/2015 Fungal Screen I 174011 * *COCCIDIOIDES ANTIBODIES, IGG & IGM . 07/23/2015 Fungal Screen I 496141 C OCCIDIOIDES AB IGM 0.3 IV 07/23/2015 Fungal Screen I 701642 C OCCIDIOIDES AB IGG 0.4 IV 07/23/2015 Fungal Screen I 711328 * *HISTOPLASMA ANTIBODY BY ID . 07/23/2015 Fungal Screen I 054648 H ISTOPLASMA ABS (ID) None Detected 015 Francisella Tularensis Abs 663160 F. TULARENSIS, IGG 0 U/mL 07/17/2015 Francisella Tularensis Abs 909514 F. TULARENSIS, IGM 0 U/mL 07/17/2015 Vitamin D 25 Oh Rrf1207 VITAMIN D, 25 HYDROXY 142.21 ng/mL 07/13/2015 B12 Kwk735 B12 956.00 pg/ml 07/12/2015 Antistrptolysin-O Qualitative Auh894 ASO Negative 07/12/2015 Cbc With Differential Ord2 [...] Ord2 RDW 15.1 % 07/10/2015 Free T4 Qfc386 FREE T4 0.79 ng/dL 06/12/2015 Urinalysis Ord28 [...] 5 Urinalysis Ord28 U-Cryst al None per/HPF 07/27/201 5 Urinalysis Ord28 U-Mucus None 06/04/2015 Urinalysis [...] Ord2 RDW 16.0 % 06/04/2015 Comp Metabolic Jdz042 NA 139 mEq/L 06/04/2015 Comp Metabolic Pum068 K 3.9 mEq/L 06/04/2015 Comp Metabolic Ijf782 CL 108 mEq/L 06/04/2015 Comp Metabolic Bir988 CO2 26.0 mEq/L 06/04/2015 Comp Metabolic Yki988 AN ION GAP 9 06/04/2015 Comp Metabolic Jmx678 GL UCOSE 74 mg/dL 06/04/2015 Comp Metabolic Vqh799 Cr eat 0.6 mg/dL 06/04/2015 Comp Metabolic Ppy837 eG FR 102 ml/min/1.73m2 05/10 Comp Metabolic Rlp708 BUN 18 mg/dL 06/04/2015 Comp Metabolic Uuc894 B/ C Ratio 29.5 Ratio 06/04/2015 Comp Metabolic Vmw332 CA LCIUM 9.0 mg/dL 06/04/2015 Comp Metabolic Cvf282 AL K PHOS 44 U/L 06/04/2015 Comp Metabolic Jki552 T(SGOT) 22 U/L 06/04/2015 Comp Metabolic Xpv243 AL T(SGPT) 23 U/L 06/04/2015 Comp Metabolic Uvm546 BI LI T 0.4 mg/dL 06/04/2015 Comp Metabolic Zau024 AL BUMIN 4.0 g/dL 06/04/2015 Comp Metabolic Rsk090 TP RO 5.8 g/dL 06/04/2015 Comp Metabolic Rbo046 GL OB 1.8 g/dL 06/04/2015 Comp Metabolic Okn229 A/ G Ratio 2.2 Ratio 06/04/2015 Comp Metabolic Cyr569 Os mo 278 mOsmo 06/04/2015 Tsh Ord6 hTSH II 5.17 uIU/mL 06/04/2015 Review of Systems System Result Effective Dates Constitutional No recent illness 09/10/2018 Constitutional No [...] 4: G0439 03/11/2016 THER/PROPH/DIAG INJ SC/IM CPT-4: 38829 12/27/2015 Vital Signs Date Vital 09/10/2018 Blood Pressure 1: 126/68 Code: 8480-6 BMI: 20.7 Code: 76860-3 Heart Rate 1: 63 bpm Height: 5' SpO2: 96% Waist Measure (cm): 66 cm Weight: 106 lbs 06/01/2018 Blood Pressure 1: 156/76 Code: 8480-6 BMI: 20.1 Code: 56234-9 Heart Rate 1: 68 bpm Height: 5' SpO2: 99% Weight: 103 lbs 05/24/2018 Blood Pressure 1: 120/60 Code: 8480-6 BMI: 20.5 Code: 44488-2 Heart Rate 1: 82 bpm Height: 5' SpO2: 98% Weight: 105 lbs 05/19/2018 Blood Pressure 1: 140/72 Code: 8480-6 BMI: 20.5 Code: 42664-7 Heart Rate 1: 96 bpm Height: 5' SpO2: 98% Weight: 105 lbs 01/12/2018 Blood Pressure 1: 146/78 Code: 8480-6 BMI: 21.1 Code: 74465-1 Heart Rate 1: 85 bpm Height: 5' SpO2: 95% Weight: 108 lbs 10/12/2017 Blood Pressure 1: 138/72 Code: 8480-6 BMI: 21.1 Code: 54185-9 Heart Rate 1: 96 bpm Height: 5' SpO2: 98% Weight: 108 lbs 08/06/2017 Blood Pressure 1: 130/78 Code: 8480-6 BMI: 20.5 Code: 39278-8 Heart Rate 1: 89 bpm Height: 5' SpO2: 98% Weight: 105 lbs 05/13/2017 Blood Pressure 1: 122/70 Code: 8480-6 BMI: 20.5 Code: 53203-1 Heart Rate 1: 80 bpm Height: 5' SpO2: 97% Weight: 105 lbs 03/19/2017 Blood Pressure 1: 138/80 Code: 8480-6 BMI: 20.5 Code: 95437-0 Heart Rate 1: 83 bpm Height: 5' SpO2: 97% Waist Measure (cm): 74 cm Weight: 105 lbs 03/18/2017 Blood Pressure 1: 138/80 Code: 8480-6 BMI: 20.5 Code: 03134-3 Heart Rate 1: 83 bpm Height: 5' SpO2: 97% Weight: 105 lbs 01/27/2017 Blood Pressure 1: 142/68 Code: 8480-6 BMI: 20.5 Code: 14264-8 Heart Rate 1: 69 bpm Height: 5' SpO2: 97% Weight: 105 lbs 12/29/2016 Blood Pressure 1: 154/82 Code: 8480-6 BMI: 20.1 Code: 59746-4 Heart Rate 1: 76 bpm Height: 5' SpO2: 94% Temperature: 37.4 (C ) / 99.4 (F) Weight: 103 lbs 11/19/2016 Blood Pressure 1: 134/74 Code: 8480-6 BMI: 19.7 Code: 48720-4 Heart Rate 1: 64 bpm Height: 5' Weight: 101 lbs 08/13/2016 Blood Pressure 1: 118/56 Code: 8480-6 BMI: 19.5 Code: 25832-1 Heart Rate 1: 64 bpm Height: 5' SpO2: 97% Weight: 100 lbs 07/03/2016 Blood Pressure 1: 120/68 Code: 8480-6 BMI: 19.1 Code: 93326-7 Heart Rate 1: 80 bpm Height: 5' SpO2: 98% Weight: 98 lbs 05/07/2016 Blood Pressure 1: 116/58 Code: 8480-6 BMI: 19.1 Code: 06000-3 Heart Rate 1: 79 bpm Height: 5' SpO2: 98% Weight: 98 lbs 04/08/2016 Blood Pressure 1: 118/58 Code: 8480-6 BMI: 19.0 Code: 58230-3 Heart Rate 1: 78 bpm Height: 5' SpO2: 98% Weight: 97 lbs 8 oz 03/11/2016 Blood Pressure 1: 102/60 Code: 8480-6 BMI: 19.7 Code: 38659-2 Heart Rate 1: 75 bpm Height: 5' SpO2: 94% Waist Measure (cm): 71 cm Weight: 101 lbs 12/27/2015 Blood Pressure 1: 128/72 Code: 8480-6 BMI: 20.2 Code: 94755-9 Heart Rate 1: 95 bpm Height: 5' SpO2: 98% Weight: 103 lbs 8 oz 09/24/2015 Blood Pressure 1: 136/70 Code: 8480-6 BMI: 19.1 Code: 98282-9 Heart Rate 1: 72 bpm Height: 5' SpO2: 97% Weight: 98 lbs 06/26/2015 Blood Pressure 1: 144/64 Code: 8480-6 BMI: 18.9 Code: 46510-0 Heart Rate 1: 77 bpm Height: 5' SpO2: 98% Weight: 97 lbs 04/10/2015 Blood Pressure 1: 132/88 Code: 8480-6 BMI: 18.9 Code: 69176-3 Heart Rate 1: 83 bpm Height: 5' [...] Alleviating Factors medication 05/19/2018 None hypothyroid Quality process safety specialist deisy 05/19/2018 None hypertension Quality tari kebede [...] Encounter Performer Loca tion Codes Date () 07130 EST. P ATIENT, LEVEL III Diagnosis: Dizziness and giddiness[ICD10: R42] Diagnosis: Allergic contact dermatitis due to plants, except food[ICD10: L23.7] Marixa Moreira MD, [facility] CPT-4: 86720 06/01/2018 ([id number]) 75468 EST. P ATIENT, LEVEL III Diagnosis: Allergic contact dermatitis due to plants, except food[ICD10: L23.7] Marixa Moreira MD, [facility] CPT-4: 22460 05/24/2018 ([id number]) 52543 EST. P ATIENT, LEVEL IV Diagnosis: Essential (primary) hypertension[ICD10: I10] Diagnosis: Atrophy of thyroid (acquired)[ICD10: E03.4] Diagnosis: Obstructive sleep apnea (adult) (pediatric)[ICD10: G47.33] Kailee Moreira MD, C CPT-4: 85907 05/19/2018 ([id number]) 40652 EST. P ATIENT, LEVEL IV Diagnosis: Essential (primary) hypertension[ICD10: I10] Diagnosis: Atrophy of thyroid (acquired)[ICD10: E03.4] Diagnosis: Low back pain[ICD10: M54.5] Kailee Moreira MD, [facility] CPT-4: 92156 01/12/2018 ([id number]) 05646 EST. P ATIENT, LEVEL III Diagnosis: Headache[ICD10: R51] Kailee Moreira MD, [facility] CPT-4: 50005 10/12/2017 ([id number]) 72549 EST. P ATIENT, LEVEL IV Diagnosis: Atrophy of thyroid (acquired)[ICD10: E03.4] Diagnosis: Essential (primary) hypertension[ICD10: I10] Diagnosis: Obstructive sleep apnea (adult) (pediatric)[ICD10: G47.33] Kailee Moreira MD, C CPT-4: 40960 08/06/2017 ([id number]) 52901 EST. 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 P ATIENT, LEVEL IV Diagnosis: Atrophy of thyroid (acquired)[ICD10: E03.4] Diagnosis: Essential (primary) hypertension[ICD10: I10] Diagnosis: Encounter for screening for other musculoskeletal disorder[ICD10: Z13.828] Diagnosis: Low back pain[ICD10: M54.5] Diagnosis: Transient alteration of awareness[ICD10: R40.4] Kailee Moreira MD, C CPT-4: 35600 03/18/2017 ([id number]) 38695 EST. P ATIENT, LEVEL IV Diagnosis: Atrophy of thyroid (acquired)[ICD10: E03.4] Diagnosis: Essential (primary) hypertension[ICD10: I10] Diagnosis: Low back pain[ICD10: M54.5] Kailee Moreira MD, [facility] CPT-4: 94922 01/27/2017 ([id number]) 92923 EST. P ATIENT, LEVEL III Diagnosis: Acute recurrent maxillary sinusitis[ICD10: J01.01] Marixa Moreira MD, [facility] CPT-4: 14367 12/29/2016 ([id number]) 60880 EST. P ATIENT, LEVEL IV Diagnosis: Atrophy of thyroid (acquired)[ICD10: E03.4] Diagnosis: Essential (primary) hypertension[ICD10: I10] Kailee Moreira MD, C CPT-4: 57621 11/19/2016 ([id number]) 89271 EST. P ATIENT, LEVEL IV Diagnosis: Atrophy of thyroid (acquired)[ICD10: E03.4] Diagnosis: Enterocolitis due to Clostridium difficile[ICD10: A04.7] Diagnosis: Essential (primary) hypertension[ICD10: I10] Kailee Moreria MD, C CPT-4: 36559 08/13/2016 ([id number]) 08928 EST. P ATIENT, LEVEL IV Diagnosis: Essential (primary) hypertension[ICD10: I10] Diagnosis: Enterocolitis due to Clostridium difficile[ICD10: A04.7] Diagnosis: Hypothyroidism, unspecified[ICD10: E03.9] Diagnosis: Low back pain[ICD10: M54.5] Kailee Moreira MD, [facility] CPT-4: 02878 07/03/2016 ([id number]) 77886 EST. P ATIENT, LEVEL IV Diagnosis: Enterocolitis due to Clostridium difficile[ICD10: A04.7] Diagnosis: Lyme disease, unspecified[ICD10: A69.20] Kailee Moreira MD, C CPT-4: 32115 05/07/2016 ([id number]) 69840 EST. P ATIENT, LEVEL IV Diagnosis: Generalized abdominal rigidity[ICD10: R19.37] Diagnosis: Diarrhea, unspecified[ICD10: R19.7] Diagnosis: Lyme disease, unspecified[ICD10: A69.20] Kailee Moreira MD, [facility] CPT-4: 24350 04/08/2016 ([id number]) 19459 EST. P ATIENT, LEVEL IV Diagnosis: Hypothyroidism, unspecified[ICD10: E03.9] Diagnosis: Lyme disease, unspecified[ICD10: A69.20] Diagnosis: Tachycardia, unspecified[ICD10: R00.0] Kailee Moreira MD, [facility] CPT-4: 87211 12/27/2015 ([id number]) 66291 EST. P ATIENT, LEVEL III Diagnosis: Essential (primary) hypertension[ICD10: I10] Diagnosis: Benign lipomatous neoplasm of skin and subcutaneous tissue of other sites[ICD10: D17.39] Diagnosis: Low back pain[ICD10: M54.5] Kailee Moreira MD, [facility] CPT-4: 65658 09/24/2015 ([id number]) 16557 EST. 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 09/10/2018 Patient Education: Patient Medication Summary Completed 09/10/2018 Appointment: Injection 06/14/2018 Visit Plan: Contact dermatitis-disc ussed with Dr Moreira -rx for dexamethasone sent to patient's pharmacy and instructed on use-will also send rx for topical betamethsone -instructed patient to call if symptoms do not resolve or if any worse Rgqiiatdx-VXR-nknwkzmh fluids-monitor blood pressure- call if dizziness does not resolve or if any worse-patient and verbalized understanding 06/01/2018 Appointment: Marixa Lakhani WPtel: [phone] (15 min) Moderate 06/01/2018 Patient Education: Patient Medication Summary Completed 06/01/2018 Visit Plan: Contact dermatitis due to poison magalys/oak-kenalog injection today- pt is to use topical treatments as directed. Pt is cleanse clothing in hot water with soap, and call if symptoms do not improve or if they worsen. 05/24/2018 Appointment: Marixa Lakhani WPtel: [phone] [phone] [place] (15 min) Moderate 05/24/2018 Patient [...] when awakening. 05/19/2018 Appointment: Kailee Moreira WPtel: [facility] (30 min) Complex 05/19/2018 Patient Education: Patient [...] bilaterally 01/12/2018 Appointment: Kailee Moreira WPtel: [phone] [facility] [place] (15 min) Moderate 01/12/2018 Patient Education: Patient Medication Summary Completed 01/12/2018 Appointment: Kailee Moreira WPtel: [phone] [phone] (15 min) Moderate 12/02/2017 Visit Plan: Headache - recommended patient to use PRN Fioricet for headaches - call if not improving. 10/12/2017 Appointment: Kailee Moreira WPtel: [phone] (15 min) Moderate 10/12/2017 Patient Education: [...] apnea - order humidification for cpap - [facility] patient/[facility]- find out if they need [...] at home. 08/06/2017 Appointment: Kailee Moreira WPtel: [facility]5 [facility] (15 min) Moderate 08/06/2017 Patient Education: Patient Medication Summary Completed 08/06/2017 Care Plan: Comp Metabolic Pending 08/06/2017 Care Plan: Tsh Pending 08/06/2017 Care Plan: Free T4 Pending 08/06/2017 Care Plan: Lipid Pending 08/06/2017 Care Plan: Cbc With Differential Pending 08/06/2017 Appointment: Kailee Moreira WPtel: [facility] (15 min) Moderate 07/21/2017 Visit Plan: Hypothyroidism [...] stop lisinopril. 05/13/2017 Appointment: Kailee Moreira WPtel: [facility] (15 min) Moderate 05/13/2017 Patient Education: Patient Medication Summary Completed 05/13/2017 Patient Education: Hypertension Completed 05/13/2017 Appointment: Kailee Moreira WPtel: [facility] (15 min) Moderate 05/06/2017 Visit Plan: Medicare [...] care surrogate. 03/19/2017 Appointment: Kiersten Armando WPtel: [facility] [facility] - Annual Wellness Visit 03/19/2017 Patient [...] levels of control. p hysical therapy at [facility] - water therapy for back eeg - needs ordered at hospital. 03/18/2017 Appointment: [phone] (15 min) Moderate 03/18/2017 Patient Education: [...] improve. 01/27/2017 Appointment: Ka[facility]ira [facility]Ptel[facility] [phone] [facility] (15 min) Moderate 01/27/2017 Patient Education: Patient Medication Summary Completed 01/27/2017 Patient Education: Hypertension Completed 01/27/2017 Visit Plan: Sinusitis - Pt has acut e infection - pain in face, maxillary region, Pt informed to use decongestant, RX given to patient, sinus rinses also recommended. Call if symptoms do not show improvement. 12/29/2016 Appointment: [facility]hani [phone] [phone] (30 min) Complex 12/29/2016 Patient Education: Patient [...] of control. 11/19/2016 Appointment: Kailee Moreira WPtel: [facility]5 [facility] (15 min) Moderate 11/19/2016 Patient Education: Patient [...] have improved. 08/13/2016 Appointment: Kailee Moreira WPtel: [facility] (15 min) Moderate 08/13/2016 Patient Education: Patient Medication Summary Completed 08/13/2016 Patient Education: Hypertension Completed 08/13/2016 Appointment: Kailee Moreira WPtel: [facility] (30 min) Complex 07/31/2016 Visit Plan: Hypertension [...] of control. 07/03/2016 Appointment: Kailee Moreira WPtel: [phone] (15 min) Moderate 07/03/2016 Patient Education: Patient Medication Summary Completed 07/03/2016 Patient Education: Hypertension Completed 07/03/2016 Visit Plan: Cdiff colitis - pt to h ave repeat testing - if positive will have to repeat treatment. Continue with probiotic. Lymes disease - continue with treatment per Dr. Carrillo. alex sample x 18 days given to patient. 05/07/2016 Appointment: Kailee Moreira WPtel: [phone] [phone] [place] (15 min) Moderate 05/07/2016 Patient Education: Patient Medication Summary Completed 05/07/2016 Visit Plan: Diarrhea - suspect the diarrhea is Cdiff related - check stool and treat with flagyl, probiotic to increase to three times daily - continue to hold iv antibiotic. Lyme disease - treating with iv antibiotics - on hold while she has diarrhea. 04/08/2016 Appointment: Kailee Moreira WPtel: [facility]9 [facility] (15 min) Moderate 04/08/2016 Patient Education: Patient Medication Summary Completed 04/08/2016 Appointment: Kailee Moreira WPtel: [facility] (15 min) Moderate 04/03/2016 Visit Plan: Medicare [...] surrogate. Lyme disease - sees Dr. Nabor fuentes antibiotic treatment [...] Summary Completed 03/11/2016 Appointment: Kailee Moreira WPtel: [facility] (15 min) Moderate 01/24/2016 Visit Plan: [...] of control. 12/27/2015 Appointment: Kailee Moreira WPtel: [address] [place], [place] [address] (15 min) Moderate 12/27/2015 Patient Education: Patient Medication Summary Completed 12/27/2015 Visit Plan: Hypertension - well con mraichuyed - continue with current medications, continue with [...] worsening or does not improve. 06/26/2015 Appointment: Harish Kailee [facility]el[phone] [facility] (15 min) Moderate 06/26/2015 Patient Education: [...] spine Lymes disease-sees Dr Carrillo-lymes specialist in [place], [place] CAD-HX [id number]-CUZ-koywpjc by Dr Hyde 04/10/2015 Appointment: (S) New [...] do not resolve or if any worse Rrpacibni-TYC-xzsqixpz fluids-monitor blood pressure-call if dizziness does not [...] apnea - order humidification for cpap - [facility] home patient/[facility]- find out if they need [...] spine Lymes disease-sees Dr Carrillo-lymes specialist in [place], [place] CAD-HX fmxc-TDA-yxlfusm by Dr Hyde . Hypertension - wel [...] previous levels of control. physical therapy at [facility] - water therapy [email or web address] [email or web address] [...]
--- OUTSIDE RECORDS SUMMARY | 2020-05-05 12:22 | XMS REPORT | Continuity of Care Document ---
Author Organization Unknown Address Unknown Phone Unavailable Allergies Active Description Code Type Severity Reaction Onset Reported/Identified Relationship to Patient Clinical Status Yes Sulfa (Sulfonamide Antibiotics) [id number] Drug Allergy Unknown N/A 008 Yes Penicillins [id number] Drug Aller gy Unknown N/A 05/17/2014 Medications There is no data. 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 4 HYPERLIPIDEMIA NEC/NOS 03/22/2014 ADAL ANDUJAR MD Ot 401. 9 HYPERTENSION NOS 03/22/2014 ADAL ANDUJAR MD Ot 414. 01 CORONARY ATHEROSCLEROSIS OF [place] CORON 03/22/2014 ADAL ANDUJAR MD Ot 427. 31 ATRIAL FIBRILLATION 03/22/2014 ADAL ANDUJAR MD Ot 729. 1 MYALGIA AND MYOSITIS NOS 03/22/2014 ADAL ANDUJAR MD Ot V45. 82 PERCUTANEOUS TRANSLUM CORON ANGIOPLASTY 03/22/2014 ADAL ANDUJAR MD Ot V58. 69 OTH MED,LT,CURRENT USE 04/28/2014 JASMYN BARNES MD Ot 250.00 DIAB SANCHEZ WO COMPL, TYPE II OR UNSPEC TY 04/28/2014 JASMYN BARNES MD Ot 311 DEPRESSIVE DISORDER NEC 04/28/2014 JASMYN BARNES MD Ot 414.01 CORONARY ATHEROSCLEROSIS OF [place] CORON 04/28/2014 JASMYN BARNES MD Ot 426 .3 LEFT BB BLOCK NEC 04/28/2014 JASMYN BARNES MD Ot 427.31 ATRIAL FIBRILLATION 04/28/2014 JASMYN BARNES MD Ot 729 .1 MYALGIA AND MYOSITIS NOS 04/28/2014 JASMYN BARNES MD Ot 786.05 SHORTNESS OF BREATH 04/28/2014 JASMYN BARNES MD Ot 786.50 CHEST PAIN NOS 04/28/2014 JASMYN BARNES MD Ot V45.82 PERCUTANEOUS TRANSLUM CORON ANGIOPLASTY 04/28/2014 JASMYN BARNES MD Ot V58.66 LONG-TERM (CURRENT) USE OF ASPIRIN 04/28/2014 JASMYN BARNES MD Ot V58.69 OTH MED,LT,CURRENT USE 05/17/2014 DAREK [...] 01/03/2015 KI PAZ Ot 424.0 01/03/2015 KI APZ Ot 426.3 01/03/2015 KI PAZ Ot 429.9 [...] 729.5 04/11/2015 Ot 733.00 04/18/2015 YESY HENDRIX EXTERNAL RELATIONS DIRECTOR Ot 724.8 05/04/2015 YESY HENDRIX EXTERNAL RELATIONS DIRECTOR Ot 724.8 05/06/2015 YESY HENDRIX EXTERNAL RELATIONS DIRECTOR Ot 724.8 11/12/2015 YESY HENDRIX EXTERNAL RELATIONS DIRECTOR Ot 724.8 01/01/2016 HARISH BULLOCK, BEVERLY A Ot D49.2 01/10/2016 MICHEL BULLOCK, EFRA Luz Ot E78.2 01/10/2016 MICHEL BULLOCK, EFRA Luz Ot I10 01/10/2016 MICHEL BULLOCK, EFRA Luz Ot I25.1 0 01/10/2016 MICHEL BULLOCK, EFRA Luz Ot R00.2 01/29/2016 MICHEL BULLOCK, EFRA Luz Ot E78.2 01/29/2016 MICHEL BULLOCK, EFRA Luz Ot I10 01/29/2016 MICHEL BULLOCK, EFRA Luz Ot I25.1 0 01/29/2016 MICHEL BULLOCK, EFRA Luz Ot R00.2 02/26/2016 MICHEL BULLOCK, EFRA Luz Ot E78.2 MIXED HYPERLIPIDEMIA 02/26/2016 MICHEL BULLOCK, EFRA Luz Ot I10 ESSENTIAL (PRIMARY) HYPERTENSION 02/26/2016 MICHEL BULLOCK, EFRA A Ot I25.1 0 ATHSCL HEART DISEASE OF [place] CORONARY 02/26/2016 MICHEL BULLOCK, EFRA Luz Ot R00.2 PALPITATIONS 03/05/2016 CON BULLOCK, ADAL Randhawa Ot E78. 2 MIXED HYPERLIPIDEMIA 03/05/2016 CON BULLOCK, ADLA Randhawa Ot I10 ESSENTIAL (PRIMARY) HYPERTENSION 03/05/2016 CON BULLOCK, ADAL Randhawa Ot I25. 10 ATHSCL HEART DISEASE OF [place] CORONARY 03/05/2016 CON BULLOCK, ADAL Randhawa Ot R00. 2 PALPITATIONS 03/20/2016 CON BULLOCK, ADAL Randhawa Ot E78. 2 MIXED HYPERLIPIDEMIA 03/20/2016 CON BULLOCK, ADAL Randhawa Ot I10 ESSENTIAL (PRIMARY) HYPERTENSION 03/20/2016 CON BULLOCK, ADAL Randhawa Ot I25. 10 ATHSCL HEART DISEASE OF [place] CORONARY 03/20/2016 ADAL ANDUJAR MD Ot R00. 2 PALPITATIONS 03/26/2016 SHIRA CAMPO PROCESSING SPECIALIST Ot A69.20 LYME DISEASE, UNSPECIFIED 04/19/2016 BEVERLY MCLAUGHLIN MD Ot Z45.2 ENCOUNTER FOR ADJUSTMENT AND MANAGEMENT 04/29/2016 BEVERLY MCLAUGHLIN MD Ot Z45.2 ENCOUNTER FOR ADJUSTMENT AND MANAGEMENT 05/03/2016 SHIRA CAMPO PROCESSING SPECIALIST Ot A69.20 LYME DISEASE, UNSPECIFIED 05/07/2016 SHIRA CAMPO PROCESSING SPECIALIST Ot A69.20 LYME DISEASE, UNSPECIFIED 05/20/2016 BEVERLY [...] MCLAUGHLIN MD Ot R19.7 DIARRHEA, UNSPECIFIED 06/06/2016 HARISH BULLOCK, BEVERLY Luz Ot Z45.2 ENCOUNTER FOR ADJUSTMENT AND MANAGEMENT 06/17/2016 SHIRA CAMPO PROCESSING SPECIALIST Ot A69.20 LYME DISEASE, UNSPECIFIED 06/24/2016 SHIRA CAMPO PROCESSING SPECIALIST Ot R19.7 DIARRHEA, UNSPECIFIED 06/27/2016 HARISH BULLOCK, BEVERLY Luz Ot R19.7 DIARRHEA, UNSPECIFIED 06/30/2016 HARISH BULLOCK, BEVERLY Luz Ot R19.7 DIARRHEA, UNSPECIFIED 07/07/2016 HARISH BULLOCK, BEVERLY Luz Ot R19.7 DIARRHEA, UNSPECIFIED 07/08/2016 HARISH BULLOCK, BEVERLY Luz Ot R19.7 DIARRHEA, UNSPECIFIED 07/09/2016 SHIRA CAMPO PROCESSING SPECIALIST Ot R19.7 DIARRHEA, UNSPECIFIED 07/18/2016 HARISH BULLOCK, BEVERLY Luz Ot A69.20 LYME DISEASE, UNSPECIFIED 07/18/2016 HARISH BULLOCK, BEVERLY Luz Ot Z45.2 ENCOUNTER FOR ADJUSTMENT AND MANAGEMENT 07/18/2016 BEVERLY MCLAUGHLIN MD Ot A69.20 LYME DISEASE, UNSPECIFIED 07/18/2016 HARISH BULLOCK, BEVERLY Lzu Ot Z45.2 ENCOUNTER FOR ADJUSTMENT AND MANAGEMENT 07/28/2016 SHIRA CAMPO PROCESSING SPECIALIST Ot R19.7 DIARRHEA, UNSPECIFIED 08/06/2016 HARISH BULLOCK, BEVERLY Luz Ot A69.20 LYME DISEASE, UNSPECIFIED 08/06/2016 HARISH BULLOCK, BEVERLY Luz Ot Z45.2 ENCOUNTER FOR ADJUSTMENT AND MANAGEMENT 08/15/2016 Ot V72.84 EXA M PRE- OPERATIVE NOS 08/15/2016 Ot 721.3 LUMB OSACRAL SPONDYLOSIS 08/15/2016 Ot 959.19 OTH INJURY OF OTHER SITES OF TRUNK 08/15/2016 Ot E000.8 OTH ER EXTERNAL CAUSE STATUS 08/15/2016 Ot E849.0 ACC IDENT IN HOME 08/15/2016 Ot E888.9 FAL L NOS 08/15/2016 Ot 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 05 SHORTNESS OF BREATH 08/15/2016 CON BULLOCK, ADAL Randhawa Ot 786. 50 CHEST PAIN NOS 08/15/2016 CON BULLOCK, ADAL Randhawa Ot V72. 81 [id number] CARDIOVASCULAR 08/15/2016 NORA BULLOCK, WOODY Betancourt Ot V67.9 FOLLOW-UP EXAM NOS 08/15/2016 BREEZY [...] K Ot 424.0 MITRAL VALVE DISORDER 08/15/2016 KI PAZ Ot 426.3 LEFT BB BLOCK NEC 08/15/2016 BREEZY MCCOY KI K Ot 429.9 HEART DISEASE NOS 08/15/2016 BREEZY MCCOY KI K Ot 530.81 ESOPHAGEAL REFLUX 08/15/2016 KI PAZ Ot 729.1 MYALGIA AND MYOSITIS NOS 08/15/2016 BREEZY MCCOY KI K Ot 785.1 PALPITATIONS 08/15/2016 BREEZY MCCOY KI K Ot 786.50 CHEST PAIN NOS 08/15/2016 ADAL ANDUJAR MD Ot 401. 9 HYPERTENSION NOS 08/15/2016 ADAL ANDUJAR MD Ot 427. 31 ATRIAL FIBRILLATION 08/15/2016 ADAL ANDUJAR MD Ot 785. 1 PALPITATIONS 08/15/2016 ADAL ANDUJAR MD Ot 786. 09 RESPIRATORY ABNORM NEC 08/15/2016 JACKIE BULLOCK, DAREK Ot V72.84 EXAM PRE-OPERATIVE NOS 08/15/2016 Ot 728.87 MUS TIAGO WEAKNESS (GENERALIZED) 08/15/2016 Ot 729.5 PAIN IN LIMB 08/15/2016 Ot 733.00 OST EOPOROSIS NOS 08/15/2016 Ot V76.12 OTH SCREEN MAMMO- MALIGN NEOPLASM OF [place] 08/15/2016 Ot 344.60 CAU DA EQUINA SYND NOS 08/15/2016 Ot 721.3 LUMB OSACRAL SPONDYLOSIS 08/15/2016 Ot 722.10 LUM BAR DISC DISPLACEMENT 08/15/2016 Ot 729.5 PAIN IN LIMB 08/15/2016 Ot 733.00 OST EOPOROSIS NOS 08/15/2016 YESY HENDRIX EXTERNAL RELATIONS DIRECTOR Ot 724.8 OTHER BACK SYMPTOMS 08/15/2016 HARISH BULLOCK, BEVERLY Luz Ot D49.2 NEOPLASM OF UNSP BEHAVIOR OF BONE, SOFT 08/15/2016 ADAL ANDUJAR MD Ot E78. 2 MIXED HYPERLIPIDEMIA 08/15/2016 ADAL ANDUJAR MD Ot I10 ESSENTIAL (PRIMARY) HYPERTENSION 08/15/2016 ADAL ANDUJAR MD Ot I25. 10 ATHSCL HEART DISEASE OF [place] CORONARY 08/15/2016 ADAL ANDUJAR MD Ot R00. 2 PALPITATIONS 08/15/2016 EFRA PEARSON MD Ot E78.2 MIXED HYPERLIPIDEMIA 08/15/2016 EFRA PEARSON MD Ot I10 ESSENTIAL (PRIMARY) HYPERTENSION 08/15/2016 EFRA PEARSON MD Ot I25.1 0 ATHSCL HEART DISEASE OF [place] CORONARY 08/15/2016 EFRA PEARSON MD Ot R00.2 PALPITATIONS 08/15/2016 BEVERLY MCLAUGHLIN MD Ot R19.7 DIARRHEA, UNSPECIFIED 08/15/2016 BEVERLY MCLAUGHLIN MD Ot R19.7 DIARRHEA, UNSPECIFIED 08/15/2016 SHIRA CAMPO PROCESSING SPECIALIST Ot A69.20 LYME DISEASE, UNSPECIFIED 08/15/2016 SHIRA CAMPO PROCESSING SPECIALIST Ot R19.7 DIARRHEA, UNSPECIFIED 08/15/2016 BEVERLY MCLAUGHLIN MD Ot R19.7 DIARRHEA, UNSPECIFIED 08/15/2016 BEVERLY MCLAUGHLIN MD Ot A69.20 LYME DISEASE, UNSPECIFIED 08/15/2016 BEVERLY MCLAUGHLIN MD Ot Z45.2 ENCOUNTER FOR ADJUSTMENT AND MANAGEMENT 08/15/2016 BEVERLY MCLAUGHLIN MD Ot Z45.2 ENCOUNTER FOR ADJUSTMENT AND MANAGEMENT 08/18/2016 ADAL ANDUJAR MD Ot E78. 2 MIXED HYPERLIPIDEMIA 08/18/2016 ADAL ANDUJAR MD J Ot I11. 9 HYPERTENSIVE HEART DISEASE WITHOUT HEART 08/18/2016 ADAL ANDUJAR MD J Ot I25. 10 ATHSCL HEART DISEASE OF [place] CORONARY 08/18/2016 ADAL ANDUJAR MD Ot I44. 7 LEFT BUNDLE-BRANCH BLOCK, UNSPECIFIED 08/18/2016 ADAL ANDUJAR MD Ot I51. 9 HEART DISEASE, UNSPECIFIED 08/18/2016 ADAL ANDUJAR MD J Ot R07. 89 OTHER CHEST PAIN 08/19/2016 BEVERLY MCLAUGHLIN MD Ot R19.7 DIARRHEA, UNSPECIFIED 09/05/2016 ADAL ANDUJAR MD Ot E78. 2 MIXED HYPERLIPIDEMIA 09/05/2016 ADAL ANDUJAR MD J Ot I11. 9 HYPERTENSIVE HEART DISEASE WITHOUT HEART 09/05/2016 ADAL ANDUJAR MD J Ot I25. 10 ATHSCL HEART DISEASE OF [place] CORONARY 09/05/2016 ADAL ANDUJAR MD Ot I44. 7 LEFT BUNDLE-BRANCH BLOCK, UNSPECIFIED 09/05/2016 ADAL ANDUJAR MD Ot I51. 9 HEART DISEASE, UNSPECIFIED 09/05/2016 ADAL ANDUJAR MD J Ot R07. 89 OTHER CHEST PAIN 09/05/2016 BEVERLY MCLAUGHLIN MD Ot Z45.2 ENCOUNTER FOR ADJUSTMENT AND MANAGEMENT 09/10/2016 ADAL ANDUJAR MD Ot E78. 2 MIXED HYPERLIPIDEMIA 09/10/2016 ADAL ANDUJAR MD J Ot I11. 9 HYPERTENSIVE HEART DISEASE WITHOUT HEART 09/10/2016 ADAL ANDUJAR MD J Ot I25. 10 ATHSCL HEART DISEASE OF [place] CORONARY 09/10/2016 ADAL ANDUJAR MD Ot I44. 7 LEFT BUNDLE-BRANCH BLOCK, UNSPECIFIED 09/10/2016 ADAL ANDUJAR MD J Ot I51. 9 HEART DISEASE, UNSPECIFIED 09/10/2016 ADAL ANDUJAR MD J Ot R07. 89 OTHER CHEST PAIN 09/10/2016 BEVERLY MCLAUGHLIN MD [...] DO, Ot I25.10 ATHSCL HEART DISEASE OF [place] CORONARY 12/23/2016 SESAR BRIONES DO, Ot I48.2 CHRONIC ATRIAL FIBRILLATION 12/23/2016 SESAR BRIOENS DO, Ot R4 2 DIZZINESS AND GIDDINESS 12/23/2016 SESAR BRIONES DO, Ot R5 5 SYNCOPE AND COLLAPSE 12/23/2016 SESAR BRIONES DO, Ot Z79.82 CARE HOME (CURRENT) USE OF ASPIRIN 12/23/2016 SESAR BRIONES DO, Ot Z79.899 OTHER CARE HOME (CURRENT) DRUG THERAPY 12/24/2016 SESAR BRIONES DO, Ot E11.9 TYPE 2 DIABETES MELLITUS WITHOUT COMPLIC 12/24/2016 SESAR BRIONES DO, Ot I25.10 ATHSCL HEART DISEASE OF [place] CORONARY 12/24/2016 SESAR BRIONES DO, Ot I48.2 CHRONIC ATRIAL FIBRILLATION 12/24/2016 SESAR BRIONES DO, Ot R4 2 DIZZINESS AND GIDDINESS 12/24/2016 SESAR BRIONES DO, Ot R5 5 SYNCOPE AND COLLAPSE 12/24/2016 SESAR BRIONES DO, Ot Z79.82 CARE HOME (CURRENT) USE OF ASPIRIN 12/24/2016 SESAR BRIONES DO, Ot Z79.899 OTHER CARE HOME (CURRENT) DRUG THERAPY 03/25/2017 Ot V72.84 EXA M PRE- OPERATIVE NOS 03/25/2017 Ot 721.3 LUMB OSACRAL SPONDYLOSIS 03/25/2017 Ot 959.19 OTH INJURY OF OTHER SITES OF TRUNK 03/25/2017 Ot E000.8 OTH ER EXTERNAL CAUSE STATUS 03/25/2017 Ot E849.0 ACC IDENT IN HOME 03/25/2017 Ot E888.9 FAL L NOS 03/25/2017 Ot 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 05 SHORTNESS OF BREATH 03/25/2017 ADAL ANDUJAR MD Ot 786. 50 CHEST PAIN NOS 03/25/2017 ADAL ANDUJAR MD Ot V72. 81 [id number] CARDIOVASCULAR 03/25/2017 NORA BULLOCK, WOODY Betancourt Ot V67.9 FOLLOW-UP EXAM NOS 03/25/2017 KI PAZ Ot 272.4 HYPERLIPIDEMIA NEC/NOS [...] PAIN NOS 03/25/2017 ADAL ANDUJAR MD Ot 401. 9 HYPERTENSION NOS 03/25/2017 ADAL ANDUJAR MD Ot 427. 31 ATRIAL FIBRILLATION 03/25/2017 ADAL ANDUJAR MD Ot 785. 1 PALPITATIONS 03/25/2017 ADAL ANDUJAR MD Ot 786. 09 RESPIRATORY ABNORM NEC 03/25/2017 DAREK MEJIA MD Ot V72.84 EXAM PRE-OPERATIVE NOS 03/25/2017 Ot 728.87 MUS TIAGO WEAKNESS (GENERALIZED) 03/25/2017 Ot 729.5 PAIN IN LIMB 03/25/2017 Ot 733.00 OST EOPOROSIS NOS 03/25/2017 Ot V76.12 OTH SCREEN MAMMO- MALIGN NEOPLASM OF [place] 03/25/2017 Ot 344.60 CAU DA EQUINA SYND NOS 03/25/2017 Ot 721.3 LUMB OSACRAL SPONDYLOSIS 03/25/2017 Ot 722.10 LUM BAR DISC DISPLACEMENT 03/25/2017 Ot 729.5 PAIN IN LIMB 03/25/2017 Ot 733.00 OST EOPOROSIS NOS 03/25/2017 YESY HENDRIX EXTERNAL RELATIONS DIRECTOR Ot 724.8 OTHER BACK SYMPTOMS 03/25/2017 BEVERLY MCLAUGHLIN MD Ot D49.2 NEOPLASM OF UNSP BEHAVIOR OF BONE, SOFT 03/25/2017 ADAL ANDUJAR MD Ot E78. 2 MIXED HYPERLIPIDEMIA 03/25/2017 ADAL ANDUJAR MD Ot I10 ESSENTIAL (PRIMARY) HYPERTENSION 03/25/2017 ADAL ANDUJAR MD Ot I25. 10 ATHSCL HEART DISEASE OF [place] CORONARY 03/25/2017 ADAL ANDUJRA MD Ot R00. 2 PALPITATIONS 03/25/2017 EFRA PEARSON MD Ot E78.2 MIXED HYPERLIPIDEMIA 03/25/2017 EFRA PEARSON MD Ot I10 ESSENTIAL (PRIMARY) HYPERTENSION 03/25/2017 EFRA PEARSON MD Ot I25.1 0 ATHSCL HEART DISEASE OF [place] CORONARY 03/25/2017 EFRA PEARSON MD Ot R00.2 PALPITATIONS 03/25/2017 BEVERLY MCLAUGHLIN MD Ot R19.7 DIARRHEA, UNSPECIFIED 03/25/2017 BEVERLY MCLAUGHLIN MD Ot R19.7 DIARRHEA, UNSPECIFIED 03/25/2017 SHIRA CAMPO APRN Ot A69.20 LYME DISEASE, UNSPECIFIED 03/25/2017 SHIRA CAMPO PROCESSING SPECIALIST Ot R19.7 DIARRHEA, UNSPECIFIED 03/25/2017 ADAL ANDUJAR MD Ot E78. 2 MIXED HYPERLIPIDEMIA 03/25/2017 ADAL ANDUJAR MD Ot I11. 9 HYPERTENSIVE HEART DISEASE WITHOUT HEART 03/25/2017 ADAL ADNUJAR MD Ot I25. 10 ATHSCL HEART DISEASE OF [place] CORONARY 03/25/2017 ADAL ANDUJAR MD Ot I44. 7 LEFT BUNDLE-BRANCH BLOCK, UNSPECIFIED 03/25/2017 ADAL ANDUJAR MD Ot I51. 9 HEART DISEASE, UNSPECIFIED 03/25/2017 ADAL ANDUJAR MD Ot R07. 89 OTHER CHEST PAIN 03/25/2017 BEVERLY MCLAUGHLIN MD Ot A69.20 LYME DISEASE, UNSPECIFIED 03/25/2017 BEVERLY MCLAUGHLIN MD Ot Z45.2 ENCOUNTER FOR ADJUSTMENT AND MANAGEMENT 03/25/2017 BEVERLY MCLAUGHLIN MD Ot Z45.2 ENCOUNTER FOR ADJUSTMENT AND MANAGEMENT 03/25/2017 BEVERLY MCLAUGHLIN MD Ot Z45.2 ENCOUNTER FOR ADJUSTMENT AND MANAGEMENT 03/25/2017 SHIRA CAMPO PROCESSING SPECIALIST Ot R19.7 DIARRHEA, UNSPECIFIED 03/30/2017 BEVERLY MCLAUGHLIN MD Ot R40.4 TRANSIENT ALTERATION OF AWARENESS 04/20/2017 BEVERLY MCLAUGHLIN MD Ot R40.4 TRANSIENT ALTERATION OF AWARENESS 04/28/2017 BEVERLY MCLAUGHLIN MD Ot R40.4 TRANSIENT ALTERATION OF AWARENESS 10/14/2017 ADAL ANDUJAR MD Ot E78. 5 HYPERLIPIDEMIA, UNSPECIFIED 10/14/2017 ADAL ANDUJAR MD Ot I11. 0 HYPERTENSIVE HEART DISEASE WITH HEART FA 10/14/2017 ADAL ANDUJAR MD Ot I25. 10 ATHSCL HEART DISEASE OF [place] CORONARY 10/14/2017 ADAL ANDUJAR MD Ot I34. 1 NONRHEUMATIC MITRAL (VALVE) PROLAPSE 10/14/2017 ADAL ANDUJAR MD Ot I44. 7 LEFT BUNDLE-BRANCH BLOCK, UNSPECIFIED 10/14/2017 ADAL ANDUJAR MD Ot I48. 0 PAROXYSMAL ATRIAL FIBRILLATION 10/14/2017 ADAL ANDUJAR MD Ot I50. 22 CHRONIC SYSTOLIC (CONGESTIVE) HEART FAIL 10/14/2017 ADAL ANDUJAR MD, Ot M79. 7 FIBROMYALGIA 10/14/2017 ADAL ANDUJAR MD Ot Z79. 01 CARE HOME (CURRENT) USE OF ANTICOAGULANT 10/14/2017 ADAL ANDUJAR MD Ot Z79. 82 AED TRAINER (CURRENT) USE OF ASPIRIN 10/14/2017 ADAL ANDUJAR MD Ot Z79.899 OTHER CARE HOME (CURRENT) DRUG THERAPY 10/14/2017 ADAL ANDUJAR MD Ot Z95. 5 PRESENCE OF CORONARY ANGIOPLASTY IMPLANT 10/23/2017 ADAL ANDUJAR MD Ot E78. 5 HYPERLIPIDEMIA, UNSPECIFIED 10/23/2017 ADAL ANDUJAR MD Ot I11. 0 HYPERTENSIVE HEART DISEASE WITH HEART FA 10/23/2017 ADAL ANDUJAR MD Ot I25. 10 ATHSCL HEART DISEASE OF [place] CORONARY 10/23/2017 ADAL ANDUJAR MD Ot I34. 1 NONRHEUMATIC MITRAL (VALVE) PROLAPSE 10/23/2017 ADAL ANDUJAR MD Ot I44. 7 LEFT BUNDLE-BRANCH BLOCK, UNSPECIFIED 10/23/2017 ADAL ANDUJAR MD Ot I48. 0 PAROXYSMAL ATRIAL FIBRILLATION 10/23/2017 ADAL ANDUJAR MD Ot I50. 22 CHRONIC SYSTOLIC (CONGESTIVE) HEART FAIL 10/23/2017 ADAL ANDUJAR MD Ot M79. 7 FIBROMYALGIA 10/23/2017 ADAL ANDUJAR MD Ot Z79. 01 AED TRAINER (CURRENT) USE OF ANTICOAGULANT 10/23/2017 ADAL ANDUJAR MD Ot Z79. 82 AED TRAINER (CURRENT) USE OF ASPIRIN 10/23/2017 ADAL ANDUJAR MD Ot Z79.899 OTHER AED TRAINER (CURRENT) DRUG THERAPY 10/23/2017 ADAL ANDUJAR MD Ot Z95. 5 PRESENCE OF CORONARY ANGIOPLASTY IMPLANT 11/13/2017 ADAL ANDUJAR MD Ot E78. 5 HYPERLIPIDEMIA, UNSPECIFIED 11/13/2017 ADAL ANDUJAR MD Ot I11. 0 HYPERTENSIVE HEART DISEASE WITH HEART FA 11/13/2017 ADAL ANDUJAR MD Ot I25. 10 ATHSCL HEART DISEASE OF [place] CORONARY 11/13/2017 ADAL ANDUJAR MD Ot I34. 1 NONRHEUMATIC MITRAL (VALVE) PROLAPSE 11/13/2017 ADAL ANDUJAR MD Ot I44. 7 LEFT BUNDLE-BRANCH BLOCK, UNSPECIFIED 11/13/2017 ADAL ANDUJAR MD Ot I48. 0 PAROXYSMAL ATRIAL FIBRILLATION 11/13/2017 ADAL ANDUJAR MD Ot I50. 22 CHRONIC SYSTOLIC (CONGESTIVE) HEART FAIL 11/13/2017 ADAL ANDUJAR MD Ot M79. 7 FIBROMYALGIA 11/13/2017 ADAL ANDUJAR MD Ot Z79. 01 CARE HOME (CURRENT) USE OF ANTICOAGULANT 11/13/2017 ADAL ANDUJAR MD Ot Z79. 82 CARE HOME (CURRENT) USE OF ASPIRIN 11/13/2017 ADAL ANDUJAR MD Ot Z79.899 OTHER AED TRAINER (CURRENT) DRUG THERAPY 11/13/2017 ADAL ANDUJAR MD Ot Z95. 5 PRESENCE OF CORONARY ANGIOPLASTY IMPLANT 06/22/2018 Ot Z01.818 EN COUNTER FOR OTHER PREPROCEDURAL EXAMIN 06/23/2018 Ot E03.9 HYPO THYROIDISM, UNSPECIFIED 06/23/2018 Ot G43.909 OK GRAINE, UNSP, NOT INTRACTABLE, WITHOUT 06/23/2018 Ot K21.0 JASON RO-ESOPHAGEAL REFLUX DISEASE WITH ES 06/23/2018 Ot K29.70 GAS TRITIS, UNSPECIFIED, WITHOUT BLEEDING 06/23/2018 Ot K44.9 DIAP HRAGMATIC HERNIA WITHOUT OBSTRUCTION 06/23/2018 Ot Z79.82 RAND G TERM (CURRENT) USE OF ASPIRIN 06/23/2018 Ot Z79.899 OT HER AED TRAINER (CURRENT) DRUG THERAPY 06/28/2018 Ot Z01.818 EN COUNTER FOR OTHER PREPROCEDURAL EXAMIN 07/21/2018 RADHA GLYNN, FLOWER Brown Ot 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, LUMBAR REGION 07/21/2018 RADHA GLYNN, FLOWER Brown Ot M47.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, CE 07/21/2018 RADHA GLYNN, FLOWER Brown Ot M47.26 OTHER SPONDYLOSIS WITH RADICULOPATHY, CASE 07/26/2018 RADHA GLYNN, FLOWER Brown Ot 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, LUMBAR REGION 07/26/2018 RADHA GLYNN, FLOWER Brown Ot M47.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, CE 07/26/2018 RADHA GLYNN, FLOWER Brown Ot M47.26 OTHER SPONDYLOSIS WITH RADICULOPATHY, CASE 08/13/2018 RADHA GLYNN, FLOWER Brown Ot 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, LUMBAR REGION 08/13/2018 RADHA GLYNN, FLOWER Brown Ot M47.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, CE 08/13/2018 RADHA GLYNN, FLOWER Brown Ot M47.26 OTHER SPONDYLOSIS WITH RADICULOPATHY, CASE 11/03/2018 DIOGO BULLOCK, PRANAY Brown Ot R19. 7 DIARRHEA, UNSPECIFIED 11/03/2018 DIOGO BULLOCK, PRANAY Brown Ot Z87. 19 PERSONAL HISTORY OF OTHER DISEASES OF 11/05/2018 HARISH BULLOCK, BEVERLY A Ot R19.7 DIARRHEA, UNSPECIFIED 12/06/2018 DIOGO BULLOCK, PRANAY Brown Ot R19. 7 DIARRHEA, UNSPECIFIED 12/06/2018 DIOGO BULLOCK, PRANAY Brown Ot Z87. 19 PERSONAL HISTORY OF OTHER DISEASES OF 12/31/2018 HARISH BULLOCK, BEVERLY A Ot R19.7 DIARRHEA, UNSPECIFIED 01/04/2019 HARSIH BULLOCK, BEVERLY A Ot R19.7 DIARRHEA, UNSPECIFIED 01/05/2019 HARISH BULLOCK, BEVERLY A Ot R19.7 DIARRHEA, UNSPECIFIED 01/10/2019 HARISH BULLOCK, BEVERLY A Ot R19.7 DIARRHEA, UNSPECIFIED 01/17/2019 KI PAZ Ot 272.4 HYPERLIPIDEMIA NEC/NOS 01/17/2019 KI PAZ Ot 401.9 HYPERTENSION NOS 01/17/2019 KI PAZ Ot 414.00 CORON ATHEROSCLER NOS TYPE VESSEL, NATIV 01/17/2019 KI PAZ Ot 228.04 HEMANGIOMA INTRA-ABDOM 01/17/2019 KI PAZ Ot 272.4 HYPERLIPIDEMIA NEC/NOS 01/17/2019 KI PAZ Ot 401.9 HYPERTENSION NOS 01/17/2019 KI PAZ Ot 414.00 CORON ATHEROSCLER NOS TYPE VESSEL, NATIV 01/17/2019 KI PAZ Ot 424.0 MITRAL VALVE DISORDER 01/17/2019 KI PAZ Ot 426.3 LEFT BB BLOCK NEC 01/17/2019 KI PAZ Ot 429.9 HEART DISEASE NOS 01/17/2019 KI PAZ Ot 530.81 ESOPHAGEAL REFLUX 01/17/2019 KI PAZ Ot 729.1 MYALGIA AND MYOSITIS NOS 01/17/2019 KI PAZ Ot 785.1 PALPITATIONS 01/17/2019 KI PAZ Ot 786.50 CHEST PAIN NOS 01/17/2019 ADAL ANDUJAR MD Ot 401. 9 HYPERTENSION NOS 01/17/2019 ADAL ANDUJAR MD Ot 427. 31 ATRIAL FIBRILLATION 01/17/2019 ADAL ANDUJAR MD Ot 785. 1 PALPITATIONS 01/17/2019 ADAL ANDUJAR MD Ot 786. 09 RESPIRATORY ABNORM NEC 01/17/2019 DAREK MEJIA MD Ot V72.84 EXAM PRE-OPERATIVE NOS 01/17/2019 Ot 728.87 MUS [place] WEAKNESS (GENERALIZED) 01/17/2019 Ot 729.5 PAIN IN LIMB 01/17/2019 Ot 733.00 OST EOPOROSIS NOS 01/17/2019 Ot V76.12 OTH SCREEN MAMMO- MALIGN NEOPLASM OF [place] 01/17/2019 Ot 344.60 CAU DA EQUINA SYND NOS 01/17/2019 Ot 721.3 LUMB OSACRAL SPONDYLOSIS 01/17/2019 Ot 722.10 LUM BAR DISC DISPLACEMENT 01/17/2019 Ot 729.5 PAIN IN LIMB 01/17/2019 Ot 733.00 OST EOPOROSIS NOS 01/17/2019 YESY HENDRIX EXTERNAL RELATIONS DIRECTOR Ot 724.8 OTHER BACK SYMPTOMS 01/17/2019 BEVERLY MCLAUGHLIN MD Ot D49.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 2 MIXED HYPERLIPIDEMIA 01/17/2019 ADAL ANDUJAR MD Ot I10 ESSENTIAL (PRIMARY) HYPERTENSION 01/17/2019 ADAL ANDUJAR MD Ot I25. 10 ATHSCL HEART DISEASE OF [place] CORONARY 01/17/2019 ADAL ANDUJAR MD Ot R00. 2 PALPITATIONS 01/17/2019 EFRA PEARSON MD Ot E78.2 MIXED HYPERLIPIDEMIA 01/17/2019 EFRA PEARSON MD Ot I10 ESSENTIAL (PRIMARY) HYPERTENSION 01/17/2019 EFRA PEARSON MD Ot I25.1 0 ATHSCL HEART DISEASE OF [place] CORONARY 01/17/2019 MICHEL BULLOCK, EFRA Luz Ot R00.2 PALPITATIONS 01/17/2019 HARISH BULLOCK, BEVERLY Luz Ot R19.7 DIARRHEA, UNSPECIFIED 01/17/2019 BEVERLY MCLAUGHLIN MD Ot R19.7 DIARRHEA, UNSPECIFIED 01/17/2019 SHIRA CAMPO PROCESSING SPECIALIST Ot A69.20 LYME DISEASE, UNSPECIFIED 01/17/2019 SHIRA CAMPO PROCESSING SPECIALIST Ot R19.7 DIARRHEA, UNSPECIFIED 01/17/2019 CON BULLOCK, ADAL J Ot E78. 2 MIXED HYPERLIPIDEMIA 01/17/2019 CON BULLOCK, ADAL J Ot I11. 9 HYPERTENSIVE HEART DISEASE WITHOUT HEART 01/17/2019 ADAL ANDUJAR MD Ot I25. 10 ATHSCL HEART DISEASE OF [place] CORONARY 01/17/2019 ADAL ANDUJAR MD Ot I44. 7 LEFT BUNDLE-BRANCH BLOCK, UNSPECIFIED 01/17/2019 ADAL ANDUJAR MD Ot I51. 9 HEART DISEASE, UNSPECIFIED 01/17/2019 CON BULLOCK, ADAL J Ot R07. 89 OTHER CHEST PAIN 01/17/2019 HARISH BULLOCK, BEVERLY Luz Ot A69.20 LYME DISEASE, UNSPECIFIED 01/17/2019 BEVERLY MCLAUGHLIN MD Ot Z45.2 ENCOUNTER FOR ADJUSTMENT AND MANAGEMENT 01/17/2019 BEVERLY MCLAUGHLIN MD Ot Z45.2 ENCOUNTER FOR ADJUSTMENT AND MANAGEMENT 01/17/2019 BEVERLY MCLAUGHLIN MD Ot Z45.2 ENCOUNTER FOR ADJUSTMENT AND MANAGEMENT 01/17/2019 SHIRA CAMPO PROCESSING SPECIALIST Ot R19.7 DIARRHEA, UNSPECIFIED 01/17/2019 BEVERLY MCLAUGHLIN MD Ot R40.4 TRANSIENT ALTERATION OF AWARENESS 01/17/2019 RADHA GLYNN, FLOWER Brown Ot 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, LUMBAR REGION 01/17/2019 RADHA GLYNN, FLOWER C Ot M47.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, CE 01/17/2019 RADHA GLYNN, FLOWER Brown Ot M47.26 OTHER SPONDYLOSIS WITH RADICULOPATHY, CASE 01/17/2019 DIOGO BULLOCK, PRANAY Brown Ot R19. 7 DIARRHEA, UNSPECIFIED 01/17/2019 DIOGO BULLOCK, PRANAY C Ot Z87. 19 PERSONAL HISTORY OF OTHER DISEASES OF TH 01/17/2019 HARISH BULLOCK, BEVERLY Luz Ot R19.7 DIARRHEA, UNSPECIFIED 01/17/2019 HARISH BULLOCK, BEVERLY Luz Ot R19.7 DIARRHEA, UNSPECIFIED 01/28/2019 DIOGO BULLOCK, PRANAY Brown Ot R19. 7 DIARRHEA, UNSPECIFIED 01/28/2019 DIOGO BULLOCK, PRANAY Brown Ot Z87. 19 PERSONAL HISTORY OF OTHER DISEASES OF 01/31/2019 DIOGO BULLOCK, PRANAY Brown Ot R19. 7 DIARRHEA, UNSPECIFIED 01/31/2019 DIOGO BULLOCK, PRANAY Brown Ot Z87. 19 PERSONAL HISTORY OF OTHER DISEASES OF 02/08/2019 SIMEON YESY Betancourt EXTERNAL RELATIONS DIRECTOR Ot R51 HEADACHE 02/21/2019 HARISH BLULOCK, BEVERLY Luz Ot R19.7 DIARRHEA, UNSPECIFIED 02/22/2019 HARISH BULLOCK, BEVERLY Luz Ot R19.7 DIARRHEA, UNSPECIFIED 03/12/2019 COLTON BULLOCK, CHADWICK P Ot G47.33 OBSTRUCTIVE SLEEP APNEA (ADULT) (PEDIATR 03/13/2019 COLTON BULLOCK, CHADWICK P Ot G47.33 OBSTRUCTIVE SLEEP APNEA (ADULT) (PEDIATR 03/15/2019 COLTON BULLOCK, CHADWICK P Ot G47.33 OBSTRUCTIVE SLEEP APNEA (ADULT) (PEDIATR 08/14/2019 ADAL ANDUJAR MD Ot I10 ESSENTIAL (PRIMARY) HYPERTENSION 08/14/2019 ADAL ANDUJAR MD Ot I25. 10 ATHSCL HEART DISEASE OF [place] CORONARY 08/14/2019 ADAL ANDUJAR MD Ot K21. 9 GASTRO-ESOPHAGEAL REFLUX DISEASE WITHOUT 08/14/2019 ADAL ANDUJAR MD Ot R00. 2 PALPITATIONS 08/22/2019 ADAL ANDUJAR MD Ot I10 ESSENTIAL (PRIMARY) HYPERTENSION 08/22/2019 ADAL ANDUJAR MD Ot I25. 10 ATHSCL HEART DISEASE OF [place] CORONARY 08/22/2019 ADAL ANDUJAR MD Ot I34. 0 NONRHEUMATIC MITRAL (VALVE) INSUFFICIENC 08/22/2019 ADAL ANDUJAR MD Ot K21. 9 GASTRO-ESOPHAGEAL REFLUX DISEASE WITHOUT 08/22/2019 ADAL ANDUJAR MD Ot R00. 2 PALPITATIONS 09/02/2019 ADAL ANDUJAR MD Ot I10 ESSENTIAL (PRIMARY) HYPERTENSION 09/02/2019 ADAL ANDUJAR MD Ot I25. 10 ATHSCL HEART DISEASE OF [place] CORONARY 09/02/2019 ADAL ANDUJAR MD Ot K21. 9 GASTRO-ESOPHAGEAL REFLUX DISEASE WITHOUT 09/02/2019 AADL ANDUJAR MD Ot R00. 2 PALPITATIONS 09/05/2019 ADAL ANDUJAR MD Ot I10 ESSENTIAL (PRIMARY) HYPERTENSION 09/05/2019 ADAL ANDUJAR MD Ot I25. 10 ATHSCL HEART DISEASE OF [place] CORONARY 09/05/2019 ADAL ANDUJAR MD Ot K21. 9 GASTRO-ESOPHAGEAL REFLUX DISEASE WITHOUT 09/05/2019 ADAL ANDUJAR MD Ot R00. 2 PALPITATIONS 09/08/2019 ADAL ANDUJAR MD Ot I10 ESSENTIAL (PRIMARY) HYPERTENSION 09/08/2019 ADAL ANDUJAR MD Ot I25. 10 ATHSCL HEART DISEASE OF [place] CORONARY 09/08/2019 ADAL ANDUJAR MD Ot I34. 0 NONRHEUMATIC MITRAL (VALVE) INSUFFICIENC 09/08/2019 ADAL ANDUJAR MD Ot K21. 9 GASTRO-ESOPHAGEAL REFLUX DISEASE WITHOUT 09/08/2019 ADAL ANDUJAR MD Ot R00. 2 PALPITATIONS 09/13/2019 ADAL ANDUJAR MD Ot I10 ESSENTIAL (PRIMARY) HYPERTENSION 09/13/2019 ADAL ANDUJAR MD Ot I25. 10 ATHSCL HEART DISEASE OF [place] CORONARY 09/13/2019 ADAL ANDUJAR MD Ot I34. 0 NONRHEUMATIC MITRAL (VALVE) INSUFFICIENC 09/13/2019 ADAL ANDUJAR MD Ot K21. 9 GASTRO-ESOPHAGEAL REFLUX DISEASE WITHOUT 09/13/2019 ADAL ANDUJAR MD Ot R00. 2 PALPITATIONS 01/06/2020 W E03.4 Atro phy of thyroid (acquired) [facility] 01/06/2020 W I10 Essent ial (primary) hypertension [facility] 01/06/2020 W R14.0 Gase ous abdominal distention [facility] 03/22/2020 W E03.4 Atro phy of thyroid (acquired) [facility] 03/22/2020 W I10 Essent ial (primary) hypertension [facility] Procedures There is no data. Results Test Result Range Stool bacteria identification by culture - 07/28/16 16:54 Stool bacteria identification by culture N2 [facility] Comprehensive metabolic panel - 06/06/16 11:25 Serum or plasma sodium measurement (moles/volume) 142 mmol/L 135-145 Serum or plasma potassium measurement (moles/volume) 4.0 mmol/L 3.6-5.0 Serum or plasma chloride measurement (moles/volume) 108 mmol/L 98-107 Carbon dioxide 26 mmol/L 21-32 Serum or plasma anion gap determination (moles/volume) 8 mmol/L 5-14 Serum or plasma urea nitrogen measurement (mass/volume ) 18 mg/dL 7-18 Serum or plasma creatinine measurement (mass/volume) 0.66 mg/dL 0.60-1.30 Serum or plasma urea nitrogen/creatinine mass ratio 27 NRG Serum or plasma creatinine measurement w ith calculation of estimated glomerular filtration rate > NRG Serum or plasma glucose measurement (mass/volume) 94 mg/dL 70-105 Serum or plasma calcium measurement (mass/volume) 9.4 mg/dL 8.5-10.1 Serum or plasma total bilirubin measurement (mass/volu me) 0.5 mg/dL 0.1-1.0 Serum or plasma alkaline phosphatase rod surement (enzymatic activity/volume) 37 U/L 40-136 Serum or plasma aspartate aminotransfera se measurement (enzymatic activity/volume) 25 U/L 5-34 Serum or plasma alanine aminotransferase measurement (enzymatic activity/volume) 30 U/L 0-55 Serum or plasma protein measurement (mass/volume) 5.9 g/dL 6.4-8.2 Serum or plasma albumin measurement (mass/volume) 3.9 g/dL 3.2-4.5 Clostridium difficile detection - 19:30 C DIFF MOLECULAR RESULT Positive for toxigen ic C diff by DNA amplification [facility] Clostridium difficile detection - 19:30 C DIFF MOLECULAR RESULT Positive for toxigen ic C diff by DNA amplification [facility] CALL POSITIVES (F1 HELP) CALLED TO DR ANAND 12:24 [facility] Ova and parasites - 06/20/16 19:30 DATE OF REF LAB REPORT 07/03/16 9:20 [facility] OTP NEGATIVE RESULT PARASITES NOT FOUND [facility] Clostridium difficile detection - 09:00 C DIFF MOLECULAR RESULT Negative for toxigen ic C diff by DNA amplification [facility] C DIFFICILE AG + TOXIN A/B. - 10/02/16 0 9:50 RESULTS NEGATIVE FOR ANTIGEN AND TOXIN A/B [facility] Complete blood count (CBC) with automate d white blood cell (WBC) differential - 12/23/16 21:50 Blood leukocytes automated count (number/volume) 6.2 10*3/uL 4.3-11.0 Blood erythrocytes automated count (number/volume) 4.14 10*6/uL 4.35-5.85 Venous blood hemoglobin measurement (mass/volume) 12.4 g/dL 11.5-16.0 Blood hematocrit (volume fraction) 37 % 35-52 Automated erythrocyte mean corpuscular volume 90 [ foz_us] 80-99 Automated erythrocyte mean corpuscular h emoglobin (mass per erythrocyte) 30 pg 25-34 Automated erythrocyte mean corpuscular h emoglobin concentration measurement (mass/volume) 33 g/dL 32-36 Automated erythrocyte distribution width ratio 14. 0 % 10.0- 14.5 Automated blood platelet count (count/volume) 226 10*3/uL [...] 10*3 1.0-4.0 Blood monocytes automated count (number/volume) 0. 9 10*3 0.0-1.0 Automated eosinophil count 0.4 10*3/uL 0 .0-0.3 Automated blood basophil count (count/volume) 0.0 10*3/uL 0.0-0.1 Comprehensive metabolic panel - 12/23/16 21:50 Serum or plasma sodium measurement (moles/volume) 139 mmol/L 135-145 Serum or plasma potassium measurement (moles/volume) 4.0 mmol/L 3.6-5.0 Serum or plasma chloride measurement (moles/volume) 105 mmol/L 98-107 Carbon dioxide 24 mmol/L 21-32 Serum or plasma anion gap determination (moles/volume) 10 mmol/L 5-14 Serum or plasma urea nitrogen measurement (mass/volume ) 19 mg/dL 7-18 Serum or plasma creatinine measurement (mass/volume) 0.74 mg/dL 0.60-1.30 Serum or plasma urea nitrogen/creatinine mass ratio 26 NRG Serum or plasma creatinine measurement w ith calculation of estimated glomerular filtration rate > NRG Serum or plasma glucose measurement (mass/volume) 96 mg/dL 70-105 Serum or plasma calcium measurement (mass/volume) 9.1 mg/dL 8.5-10.1 Serum or plasma total bilirubin measurement (mass/volu me) 0.3 mg/dL 0.1-1.0 Serum or plasma alkaline phosphatase rod surement (enzymatic activity/volume) 50 U/L 40-136 Serum or plasma aspartate aminotransfera se measurement (enzymatic activity/volume) 23 U/L 5-34 Serum or plasma alanine aminotransferase measurement (enzymatic activity/volume) 22 U/L 0-55 Serum or plasma protein measurement (mass/volume) 6.1 g/dL 6.4-8.2 Serum or plasma albumin measurement (mass/volume) 3.8 g/dL 3.2-4.5 Magnesium - 12/23/16 21:50 Magnesium 2.2 mg/dL 1.8-2.4 Serum or plasma lithium measurement (mol es/volume) - 12/23/16 21:50 BNP level 35.9 pg/mL <100.0 Serum or plasma troponin i.cardiac measu rement (mass/volume) - 12/23/16 21:50 Serum or plasma troponin i.cardiac measurement (mass/v olume) < ng/mL <0.30 THYROID STIMULATING HORMONE - 12/23/16 2 1:50 THYROID STIMULATING HORMONE 0.80 u[iU]/mL 0.35-4.94 Complete urinalysis with reflex to cultu re - 12/23/16 22:48 Urine color determination YELLOW NRG Urine clarity determination CLEAR NR G Urine pH measurement by test strip 7 5-9 Specific gravity of urine by test strip 1.010 1.016-1.022 Urine protein assay by test strip, semi-quantitative NEGATIVE NEGATIVE Urine glucose detection by automated test strip NE GATIVE NEGATIVE Erythrocytes detection in urine sediment by light micr oscopy NEGATIVE NEGATIVE Urine ketones detection by automated test strip NE GATIVE NEGATIVE Urine nitrite detection by test strip NEGATIVE NEGATIVE Urine total bilirubin detection by test strip NEGA TIVE NEGATIVE Urine urobilinogen measurement by automated test strip (mass/volume) NORMAL NORMAL Urine leukocyte esterase detection by dipstick 1+ NEGATIVE Automated urine sediment erythrocyte cou nt by microscopy (number/high power field) NONE NRG Automated urine sediment leukocyte count by microscopy (number/high power field) [HPF] NRG Bacteria detection in urine sediment by light microsco py FEW NRG Crystals detection in urine sediment by light microsco py NONE NRG Casts detection in urine sediment by light microscopy NONE NRG Mucus detection in urine sediment by light microscopy NEGATIVE NRG Complete urinalysis with reflex to culture NO NRG Automated blood complete blood count ( mogram) panel - 10/14/17 12:08 Blood leukocytes automated count (number/volume) 5.4 10*3/uL 4.3-11.0 Blood erythrocytes automated count (number/volume) 4.53 10*6/uL 4.35-5.85 Venous blood hemoglobin measurement (mass/volume) 13.5 g/dL 11.5-16.0 Blood hematocrit (volume fraction) 41 % 35-52 Automated erythrocyte mean corpuscular volume 89 [ foz_us] 80-99 Automated erythrocyte mean corpuscular h emoglobin (mass per erythrocyte) 30 pg 25-34 Automated erythrocyte mean corpuscular h emoglobin concentration measurement (mass/volume) 33 g/dL 32-36 Automated erythrocyte distribution width ratio 13. 7 % 10.0- 14.5 Automated blood platelet count (count/volume) 309 10*3/uL 130-400 Automated blood platelet mean volume measurement 10.1 [foz_us] 7.4-10.4 Complete urinalysis with reflex to cultu re - 10/14/17 12:08 Urine color determination YELLOW NRG Urine clarity determination CLEAR NR G Urine pH measurement by test strip 8 5-9 Specific gravity of urine by test strip 1.015 1.016-1.022 Urine protein assay by test strip, semi-quantitative NEGATIVE NEGATIVE Urine glucose detection by automated test strip NE GATIVE NEGATIVE Erythrocytes detection in urine sediment by light micr oscopy NEGATIVE NEGATIVE Urine ketones detection by automated test strip NE GATIVE NEGATIVE Urine nitrite detection by test strip NEGATIVE NEGATIVE Urine total bilirubin detection by test strip NEGA TIVE NEGATIVE Urine urobilinogen measurement by automated test strip (mass/volume) NORMAL NORMAL Urine leukocyte esterase detection by dipstick NEG ATIVE NEGATIVE Automated urine sediment erythrocyte cou nt by microscopy (number/high power field) NONE NRG Automated urine sediment leukocyte count by microscopy (number/high power field) RARE NRG Bacteria detection in urine sediment by light microsco py NEGATIVE NRG Squamous epithelial cells detection in u rine sediment by light microscopy RARE NRG Crystals detection in urine sediment by light microsco py NONE NRG Casts detection in urine sediment by light microscopy NONE NRG Mucus detection in urine sediment by light microscopy NEGATIVE NRG Complete urinalysis with reflex to culture NO NRG PT panel in platelet poor plasma by coag ulation assay - 10/14/17 12:08 Prothrombin time (PT) in platelet poor plasma by coagu lation assay 12.1 s 12.2-14.7 INR in platelet poor plasma or blood by coagulation as say 0.9 0.8-1.4 Activated partial thromboplastin time (a PTT) in platelet poor plasma bycoagulation assay - 10/14/17 12:08 Activated partial thromboplastin time (a PTT) in platelet poor plasma bycoagulation assay 25 s 24-35 Comprehensive metabolic panel - 10/14/17 12:08 Serum or plasma sodium measurement (moles/volume) 143 mmol/L 135-145 Serum or plasma potassium measurement (moles/volume) 3.7 mmol/L 3.6-5.0 Serum or plasma chloride measurement (moles/volume) 106 mmol/L 98-107 Carbon dioxide 26 mmol/L 21-32 Serum or plasma anion gap determination (moles/volume) 11 mmol/L 5-14 Serum or plasma urea nitrogen measurement (mass/volume ) 13 mg/dL 7-18 Serum or plasma creatinine measurement (mass/volume) 0.74 mg/dL 0.60-1.30 Serum or plasma urea nitrogen/creatinine mass ratio 18 NRG Serum or plasma creatinine measurement w ith calculation of estimated glomerular filtration rate > NRG Serum or plasma glucose measurement (mass/volume) 86 mg/dL 70-105 Serum or plasma calcium measurement (mass/volume) 9.2 mg/dL 8.5-10.1 Serum or plasma total bilirubin measurement (mass/volu me) 0.5 mg/dL 0.1-1.0 Serum or plasma alkaline phosphatase rod surement (enzymatic activity/volume) 50 U/L 40-136 Serum or plasma aspartate aminotransfera se measurement (enzymatic activity/volume) 21 U/L 5-34 Serum or plasma alanine aminotransferase measurement (enzymatic activity/volume) 17 U/L 0-55 Serum or plasma protein measurement (mass/volume) 7.3 g/dL 6.4-8.2 Serum or plasma albumin measurement (mass/volume) 4.2 g/dL 3.2-4.5 Lipid 1996 panel - 10/14/17 12:08 Serum or plasma triglyceride measurement (mass/volume) 91 mg/dL <150 Serum or plasma cholesterol measurement (mass/volume) 241 mg/dL < 200 Serum or plasma cholesterol in HDL measurement (mass/v olume) 80 mg/dL 40-60 Cholesterol in LDL [mass/volume] in serum or plasma by direct assay 136 mg/dL 1-129 Serum or plasma cholesterol in VLDL measurement (mass/ volume) 18 mg/dL 5-40 Methicillin resistant Staphylococcus aur eus (MRSA) screening culture - 10/14/17 12:08 Methicillin resistant Staphylococcus aureus (MRSA) scr eening culture NEG NRG Serum ragweed IgE antibody assay - 10/06 15:28 Serum ragweed IgE antibody assay Positive NRG C DIFFICILE AG + TOXIN A/B. - 10/06/18 1 5:28 FREE TEXT ENTRY 2 POSITIVE FOR GHD ANTIGEN NRG FREE TEXT ENTRY 3 NEGATIVE FOR TOXINS A AND B NRG RESULTS INDETERMINANT; MOLECULAR TEST TO FOLLOW NRG C DIFFICILE AG + TOXIN A/B. - 10/30/18 1 0:50 FREE TEXT ENTRY 2 LEFT MESSAGE TO CALL VIA [facility] AT [facility] FREE TEXT ENTRY 10/30/18 15:30 BY Pat LUNA NR CALL POSITIVES (F1 HELP) CALLED TO DR CLAIRE Juarez AT [phone] [facility] SPECIAL CONTACT SPECIAL CONTACT PRECAUTIONS NEEDED NRG RESULTS POSITIVE FOR ANTIGEN AND TOXIN A/B NRG C DIFFICILE AG + TOXIN A/B. - 11/23/18 1 5:45 FREE TEXT ENTRY 2 11/24/18 09:00 BY Jesus LUNA [facility] CALL POSITIVES (F1 HELP) CALLED TO ALLA FIGUEROA AT DR MCLAUGHLIN'S OFFICE NRG RESULTS NEGATIVE FOR ANTIGEN AND TOXIN A/B NRG Encounters ACCT No. Visit Date/Time Discharge Status Pt. Type Provider Facility Loc./Unit Complaint [id number] 08/06/2017 18:16:55 08/06/2017 23:59:5 9 CLS Outpatient [id number] 08/18/2019 09:55:00 23:59:59 CLS Outpatient ADAL ANDUJAR MD Via [facility] CARD HTN [id number] 08/08/2019 07:49:00 23:59:59 CLS Outpatient ADAL ANDUJAR MD [facility] CARD HTN [id number] 03/12/2019 20:43:00 06:45:00 DIS Outpatient CHADWICK SEGURA MD [facility] SLEEP MONIQUE [id number] 02/22/2019 00:17:00 23:59:59 CLS Preadmit BEVERLY MCLAUGHLIN MD [facility] LAB DIARRHEA [id number] 11/23/2018 17:31:00 00:01:00 DIS Outpatient BEVERLY MCLAUGHLIN MD [facility] LAB DIARRHEA [id number] 01/29/2019 00:10:00 23:59:59 CLS Preadmit PRANAY LIND MD [facility] LAB DIARRHEA [id number] 10/30/2018 14:44:00 00:01:00 DIS Outpatient PRANAY LIND MD [facility] LAB DIARRHEA [id number] 01/18/2019 15:44:00 23:59:59 CLS Outpatient YESY HENDRIX [facility] RAD HEADACHE [id number] 01/05/2019 00:13:00 23:59:59 CLS Preadmit BEVERLY MCLAUGHLIN MD [facility] LAB DIARRHEA [id number] 10/06/2018 15:21:00 00:01:00 DIS Outpatient BEVERLY MCLAUGHLIN MD [facility] LAB DIARRHEA [id number] 07/20/2018 10:51:00 23:59:59 CLS Outpatient FLOWER GARCIA DC [facility] RAD LOW BACK PAIN WITH RIGH T RADICULOPATHY [id number] 10/14/2017 11:51:00 017 18:40:00 DIS Outpatient ADAL ANDUJAR MD [facility] CATH CP,CAD [id number] 03/27/2017 08:07:00 23:59:59 CLS Outpatient BEVERLY MCLAUGHLIN MD [facility] RT TRANSIENT ALTERATION O F AWARENESS [id number] 12/23/2016 21:22:00 23:18:00 DIS Emergency ANALI DOSESAR [facility] ER FALL/SYNCOPE [id number] 10/02/2016 11:26:00 23:59:59 CLS Outpatient SHIRA CAMPO APRN [facility] LAB DIARRHEA [id number] 08/19/2016 10:06:00 10:07:00 DIS Outpatient BEVERLY MCLAUGHLIN MD [facility] LAB DIARRHEA [id number] 08/15/2016 11:10:00 23:59:59 CLS Outpatient BEVERLY MCLAUGHLIN MD [facility] PICC LINE REMOVAL [id number] 08/15/2016 10:33:00 23:59:59 CLS Outpatient ADAL ANDUJAR MD [facility] CARD CAD,CHEST PAIN,HTN,LABB [id number] 08/07/2016 00:08:00 Sofia 23:59:59 CLS Preadmit BEVERLY MCLAUGHLIN MD [facility] PICC LINE CAROLINA BORDEN [id number] 06/06/2016 11:19:00 00:01:00 DIS Outpatient BEVERLY MCLAUGHLIN MD [facility] PICC LINE CAROLINA BORDEN [id number] 07/18/2016 10:34:00 23:59:59 CLS Outpatient BEVERLY MCLAUGHLIN MD [facility] PICC LINE FOR LYME DIS EASE TREATMENT [id number] 05/29/2016 17:30:00 00:01:00 DIS Outpatient BEVERLY MCLAUGHLIN MD [facility] LAB DIARRHEA [id number] 06/20/2016 19:30:00 23:59:59 CLS Outpatient SHIRA CAMPO PROCESSING SPECIALIST [facility] LAB DIARRHEA [id number] 06/18/2016 00:11:00 23:59:59 CLS Preadmit SHIRA CAMPO PROCESSING SPECIALIST [facility] LYME DISEASE [id number] 03/20/2016 08:01:00 00:01:00 DIS Outpatient SHIRA CAMPO APRN [facility] LYME DISEASE [id number] 06/05/2016 16:53:00 016 23:59:59 CLS Outpatient BEVERLY MCLAUGHLIN MD [facility] LAB DIARRHEA [id number] 05/17/2016 06:00:00 016 23:59:59 CLS Outpatient BEVERLY MCLAUGHLIN MD [facility] LAB DIARRHEA [id number] 04/19/2016 10:27:00 12:30:00 DIS Outpatient BEVERLY MCLAUGHLIN MD [facility] PICC LINE [id number] 02/13/2016 12:14:00 23:59:59 CLS Outpatient ADAL ANDUJAR MD [facility] CARD CAD,HTN,HLP,PALPITATION S [id number] 01/07/2016 15:47:00 016 23:59:59 CLS Outpatient EFRA PEARSON MD [facility] RAD CAD,HTN,PALPITATIONS,HY PERLIPEDEMIA [id number] 11/12/2015 10:54:00 23:59:59 CLS Outpatient BEVERLY MCLAUGHLIN MD [facility] RAD LUMBAR NERVE ROOT TUMO R [id number] 04/13/2015 07:40:00 015 23:59:59 CLS Outpatient YESY HENDRIX [facility] RAD F/U NODULE LESI ON CAUDAEQUINA,LBP [id number] 05/17/2014 09:02:00 014 14:05:00 DIS Outpatient DAREK MEJIA MD [facility] SDC EPIGASTRIC PAIN;FAMILY HISTORY COLON CANCER [id number] 05/15/2014 14:50:00 23:59:59 CLS Outpatient DAREK MEJIA MD [facility] PREOP EPIGASTRIC PAIN; FAMILY HISTORY COLON CANCER [id number] 04/28/2014 14:35:00 014 16:40:00 DIS Emergency JASMYN BARNES MD [facility] ER CHEST PAIN [id number] 03/29/2014 08:53:00 23:59:59 CLS Outpatient AADL ANDUJAR MD [facility] CATH AFIB [id number] 03/22/2014 06:45:00 14:30:00 DIS Outpatient ADAL ANDUJAR MD [facility] CATH AFIB,CAD,CP,HTN,HLP [id number] 02/22/2014 10:41:00 23:59:59 CLS Outpatient MARIA C PAZ [facility] RAD CP,CAD,HTN [id number] 12/22/2013 13:02:00 23:59:59 CLS Outpatient MARIA C PAZ [facility] CARD CAD,HTN,HLP [id number] 06/07/2013 13:28:00 23:59:59 CLS Outpatient WOODY MELENDEZ MD [facility] RAD FOLLOW-UP HEPAT IC RESECTION [id number] 04/06/2013 11:37:00 23:59:59 CLS Outpatient ADAL ANDUJAR MD [facility] RAD CHEST PAIN,SOB,PREOP CL EARANCE [id number] 06/23/2018 10:46:00 Document Registration [id number] 06/22/2018 10:04:00 Document Registration [id number] 08/15/2016 10:34:00 Document Registration [id number] 08/15/2016 10:34:00 Document Registration [id number] 08/15/2016 10:33:00 Document Registration [id number] 04/11/2015 08:27:00 Document Registration [id number] 01/25/2015 10:05:00 Document Registration [id number] 01/19/2015 10:53:00 Document Registration [id number] 02/16/2013 13:46:00 Document Registration [id number] 02/10/2013 09:33:00 Document Registration [id number] 02/03/2013 09:08:00 Document Registration [id number] 01/31/2013 09:47:00 Document Registration [id number] 08/30/2012 08:44:00 Document Registration [id number] 08/27/2012 08:23:00 Document Registration [id number] 07/26/2012 12:49:00 Document Registration [id number] 05/22/2011 09:34:00 Document Registration
--- OUTSIDE RECORDS SUMMARY | 2020-06-13 14:54 | XMS REPORT | Clinical Summary ---
Author Author [facility] Organization [facility] Address Unknown Phone Unavailable Care Team Providers Care Tree Puller Name Role Phone Dayton Guerrero MD Unavailable Mychart, Generic Provider Unavailable Unavailable Ember Kerr DO Unavailable Kailee Moreira MD PCP Source Comments Some departments are not documenting in the electronic medical record. If you d o not see the information that you expected, contact Release of Information in [facility] Information Management department at [phone] for further assistan ce in locating additional records.[facility] Allergies Comments Active Allergy Reactions Severity [...] Paroxysmal A-fib (HCC), Coronary artery disease involving [place] coronary artery of [place] heart without angina pectoris Active hydroxychloroquine Take 200 mg 0 (PLAQUENIL) 200 mg by mouth tabletIndications: PVCs twice daily. (premature ventricular contractions), Palpitations, Paroxysmal A-fib (HCC), Coronary artery disease involving [place] coronary artery of [place] heart without angina pectoris Active FLUCONAZOLE (BULK) Use 1 Tab as 0 MISCIndications: PVCs directed (premature ventricular daily. contractions), Palpitations, Paroxysmal A-fib (HCC), Coronary artery disease involving [place] coronary artery of [place] heart without angina pectoris Active progesterone, Take 200 mg 0 micronized(+) by mouth (PROMETRIUM) 100 mg daily. capsuleIndications: PVCs (premature ventricular contractions), Palpitations, Paroxysmal A-fib (HCC), Coronary artery disease involving [place] coronary artery of [place] heart without angina pectoris Active other Take 1 Dose 0 medicationIndications: by mouth PVCs (premature daily. ventricular Lumbrokinase contractions), Palpitations, Paroxysmal A-fib (HCC), Coronary artery disease involving [place] coronary artery of [place] heart without angina pectoris Active CYCLOBENZAPRINE HCL [...] may have been chronic. She has a [id number] score of 4--age, f emale, HTN, CAD. [...] She was referred to physician s in [place] in November, for their thoughts about management. Her ca se and her films were reviewed at the [facility], also for thoughts abou t management. The [...] the middle of sleep ing and during worship. These pains are not related to stress. [...] Appendiceal [place] to l ungs Brother Father [place] (Age 70) Mother Complications of DM (Age [...] ED MUTUAL OF xxxxxxxx 2013 ED -Present -[id number] Advance Directives Patient Mail Clerk Explanation Type Date Recorded Advance 01/12/2015 9:56 AM Directive/DPOA Date Inactivated Comments Code Status Date Activated 04/24/2013 6:58 PM Full Code 04/19/2013 8:03 PM Provider has discussed Code Status No, discussion no t w/Patient or Family? necessary based on Dx
--- OUTSIDE RECORDS SUMMARY | 2020-06-13 15:05 | XMS REPORT | Continuity of Care Document ---
Author Organization Unknown Address Unknown Phone Unavailable Allergies Active Description Code Type Severity Reaction Onset Reported/Identified Relationship to Patient Clinical Status Yes Sulfa (Sulfonamide Antibiotics) [id number] Drug Allergy Unknown N/A 008 Yes Penicillins [id number] Drug Aller gy Unknown N/A 05/17/2014 Medications There is no data. 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 4 HYPERLIPIDEMIA NEC/NOS 03/22/2014 ADAL ANDUJAR MD Ot 401. 9 HYPERTENSION NOS 03/22/2014 ADAL ANDUJAR MD Ot 414. 01 CORONARY ATHEROSCLEROSIS OF [place] CORON 03/22/2014 ADAL ANDUJAR MD Ot 427. 31 ATRIAL FIBRILLATION 03/22/2014 ADAL ANDUJAR MD Ot 729. 1 MYALGIA AND MYOSITIS NOS 03/22/2014 ADAL ADNUJAR MD Ot V45. 82 PERCUTANEOUS TRANSLUM CORON ANGIOPLASTY 03/22/2014 ADAL ANUDJAR MD Ot V58. 69 OTH MED,LT,CURRENT USE 04/28/2014 JASMYN BARNES MD Ot 250.00 DIAB SANCHEZ WO COMPL, TYPE II OR UNSPEC TY 04/28/2014 JASMYN BARNES MD Ot 311 DEPRESSIVE DISORDER NEC 04/28/2014 JASMYN BARNES MD Ot 414.01 CORONARY ATHEROSCLEROSIS OF [place] CORON 04/28/2014 JASMYN BARNES MD Ot 426 [...] 729.5 04/11/2015 Ot 733.00 04/18/2015 YESY HENDRIX VIDEO POKER FLOORMAN Ot 724.8 05/04/2015 EYSY HENDIRX VIDEO POKER FLOORMAN Ot 724.8 05/06/2015 YESY HENDRIX VIDEO POKER FLOORMAN Ot 724.8 11/12/2015 YESY HENDRIX VIDEO POKER FLOORMAN Ot 724.8 01/01/2016 HARISH BULLOCK, BEVERLY A Ot D49.2 01/10/2016 MICHEL BULLOCK, EFRA Luz Ot E78.2 01/10/2016 MICHEL BULLOCK, EFRA Luz Ot I10 01/10/2016 MICHEL BULLOCK, EFRA Luz Ot I25.1 0 01/10/2016 MICHEL BULLOCK, EFRA A Ot R00.2 01/29/2016 MICHEL BULLOCK, EFRA Luz Ot E78.2 01/29/2016 MICHEL BULLOCK, EFRA Luz Ot I10 01/29/2016 MICHEL BULLOCK, EFRA A Ot I25.1 0 01/29/2016 MICHEL BULLOCK, EFRA Luz Ot R00.2 02/26/2016 MICHEL BULLOCK, EFRA Luz Ot E78.2 MIXED HYPERLIPIDEMIA 02/26/2016 MICHEL BULLOCK, EFRA Luz Ot I10 ESSENTIAL (PRIMARY) HYPERTENSION 02/26/2016 MICHEL BULLOCK, EFRA Luz Ot I25.1 0 ATHSCL HEART DISEASE OF [place] CORONARY 02/26/2016 MICHEL BULLOCK, EFRA Luz Ot R00.2 PALPITATIONS 03/05/2016 CON BULLOCK, ADAL Randhawa Ot E78. 2 MIXED HYPERLIPIDEMIA 03/05/2016 CON BULLOCK, ADAL J Ot I10 ESSENTIAL (PRIMARY) HYPERTENSION 03/05/2016 CON BULLOCK, ADAL Randhawa Ot I25. 10 ATHSCL HEART DISEASE OF [place] CORONARY 03/05/2016 CON BULLOCK, ADAL Randhawa Ot R00. 2 PALPITATIONS 03/20/2016 CON BULLOCK, ADAL Randhawa Ot E78. 2 MIXED HYPERLIPIDEMIA 03/20/2016 CON BULLOCK, ADAL J Ot I10 ESSENTIAL (PRIMARY) HYPERTENSION 03/20/2016 CON BULLOCK, ADAL Randhawa Ot I25. 10 ATHSCL HEART DISEASE OF [place] CORONARY 03/20/2016 ADAL ANDUJAR MD Ot R00. 2 PALPITATIONS 03/26/2016 SHIRA CAMPO CARBON ROD INSERTER Ot A69.20 LYME DISEASE, UNSPECIFIED 04/19/2016 BEVERLY MOREIRA MD Ot Z45.2 ENCOUNTER FOR ADJUSTMENT AND MANAGEMENT 04/29/2016 BEVERLY MOREIRA MD Ot Z45.2 ENCOUNTER FOR ADJUSTMENT AND MANAGEMENT 05/03/2016 SHIRA CAMPO CARBON ROD INSERTER Ot A69.20 LYME DISEASE, UNSPECIFIED 05/07/2016 SHIRA CAMPO CARBON ROD INSERTER Ot A69.20 LYME DISEASE, UNSPECIFIED 05/20/2016 BEVERLY MOREIRA MD Ot R19.7 DIARRHEA, UNSPECIFIED 05/20/2016 BEVERLY MOREIRA MD Ot R19.7 DIARRHEA, UNSPECIFIED 05/20/2016 BEVERLY MOREIRA MD Ot R19.7 DIARRHEA, UNSPECIFIED 05/28/2016 BEVERLY MOREIRA MD Ot Z45.2 ENCOUNTER FOR ADJUSTMENT AND MANAGEMENT 05/29/2016 BEVERLY MOREIRA MD Ot R19.7 DIARRHEA, UNSPECIFIED 05/29/2016 BEVERLY MOREIRA MD Ot Z45.2 ENCOUNTER FOR ADJUSTMENT AND MANAGEMENT 06/03/2016 BEVERLY MOREIRA MD Ot Z45.2 ENCOUNTER FOR ADJUSTMENT AND MANAGEMENT 06/06/2016 BEVERLY MOREIRA MD Ot Z45.2 ENCOUNTER FOR ADJUSTMENT AND MANAGEMENT 06/06/2016 BEVERLY MOREIRA MD Ot R19.7 DIARRHEA, UNSPECIFIED 06/06/2016 HARISH BULLOCK, BEVERLY Luz Ot Z45.2 ENCOUNTER FOR ADJUSTMENT AND MANAGEMENT 06/17/2016 SHIRA CAMPO CARBON ROD INSERTER Ot A69.20 LYME DISEASE, UNSPECIFIED 06/24/2016 SHIRA CAMPO CARBON ROD INSERTER Ot R19.7 DIARRHEA, UNSPECIFIED 06/27/2016 HARISH BULLOCK, BEVERLY Luz Ot R19.7 DIARRHEA, UNSPECIFIED 06/30/2016 HARISH BULLOCK, BEVERLY Luz Ot R19.7 DIARRHEA, UNSPECIFIED 07/07/2016 HARISH BULLOCK, BEVERLY Luz Ot R19.7 DIARRHEA, UNSPECIFIED 07/08/2016 HARISH BULLOCK, BEVERLY Luz Ot R19.7 DIARRHEA, UNSPECIFIED 07/09/2016 SHIRA CAMPO CARBON ROD INSERTER Ot R19.7 DIARRHEA, UNSPECIFIED 07/18/2016 HARISH BULLOCK, BEVERLY Luz Ot A69.20 LYME DISEASE, UNSPECIFIED 07/18/2016 HARISH BULLOCK, BEVERLY Luz Ot Z45.2 ENCOUNTER FOR ADJUSTMENT AND MANAGEMENT 07/18/2016 HARISH BULLOCK, BEVERLY Luz Ot A69.20 LYME DISEASE, UNSPECIFIED 07/18/2016 HARISH BULLOCK, BEVERLY Luz Ot Z45.2 ENCOUNTER FOR ADJUSTMENT AND MANAGEMENT 07/28/2016 SHIRA CAMPO CARBON ROD INSERTER Ot R19.7 DIARRHEA, UNSPECIFIED 08/06/2016 HARISH BULLOCK, [...] CON BULLOCK, ADAL Randhawa Ot V72. 81 [id number] CARDIOVASCULAR 08/15/2016 NORA BULLOCK, WOODY Betancourt Ot V67.9 FOLLOW-UP EXAM NOS 08/15/2016 KI PAZ Ot 272.4 HYPERLIPIDEMIA NEC/NOS 08/15/2016 KI PAZ Ot 401.9 HYPERTENSION NOS 08/15/2016 BREEZY MCCOY KI K Ot 414.00 CORON ATHEROSCLER NOS TYPE VESSEL, NATIV 08/15/2016 KI PAZ Ot 228.04 HEMANGIOMA INTRA-ABDOM 08/15/2016 BREEZY MCCOY [...] MCCOY KI K Ot 785.1 PALPITATIONS 08/15/2016 KI PAZ Ot 786.50 CHEST PAIN NOS 08/15/2016 CON BULLOCK, ADAL Randhawa Ot 401. 9 HYPERTENSION NOS 08/15/2016 ADAL [...] 733.00 OST EOPOROSIS NOS 08/15/2016 YESY HENDRIX VIDEO POKER FLOORMAN Ot 724.8 OTHER BACK SYMPTOMS 08/15/2016 HARISH BULLOCK, BEVERLY Luz Ot D49.2 NEOPLASM OF UNSP BEHAVIOR OF BONE, SOFT 08/15/2016 ADAL ANDUJAR MD Ot E78. 2 MIXED HYPERLIPIDEMIA 08/15/2016 ADAL ANDUJAR MD Ot I10 ESSENTIAL (PRIMARY) HYPERTENSION 08/15/2016 ADAL ANDUJAR MD Ot I25. 10 ATHSCL HEART DISEASE OF [place] CORONARY 08/15/2016 ADAL ANDUJAR MD Ot R00. 2 PALPITATIONS 08/15/2016 EFRA PEARSON MD Ot E78.2 MIXED HYPERLIPIDEMIA 08/15/2016 EFRA PEARSON MD Ot I10 ESSENTIAL (PRIMARY) HYPERTENSION 08/15/2016 EFRA PEARSON MD Ot I25.1 0 ATHSCL HEART DISEASE OF [place] CORONARY 08/15/2016 MICHEL BULLOCK, EFRA Luz Ot R00.2 PALPITATIONS 08/15/2016 BEVERLY MOREIRA MD Ot R19.7 DIARRHEA, UNSPECIFIED 08/15/2016 BEVERLY MOREIRA MD Ot R19.7 DIARRHEA, UNSPECIFIED 08/15/2016 SHIRA CAMPO CARB[employer] ROD INSERTER Ot A69.20 LYME DISEASE, UNSPECIFIED 08/15/2016 SHIRA CAMPO CARB[employer] ROD INSERTER Ot R19.7 DIARRHEA, UNSPECIFIED 08/15/2016 BEVERLY MOREIRA MD Ot R19.7 DIARRHEA, UNSPECIFIED 08/15/2016 BEVERLY MOREIRA MD Ot A69.20 LYME DISEASE, UNSPECIFIED 08/15/2016 BEVERLY MOREIRA MD Ot Z45.2 ENCOUNTER FOR ADJUSTMENT AND MANAGEMENT 08/15/2016 BEVERLY MOREIRA MD Ot Z45.2 ENCOUNTER FOR ADJUSTMENT AND MANAGEMENT 08/18/2016 ADAL ANDUJAR MD Ot E78. 2 MIXED HYPERLIPIDEMIA 08/18/2016 ADAL ANDUJAR MD Ot I11. 9 HYPERTENSIVE HEART DISEASE WITHOUT HEART 08/18/2016 ADAL ANDUJAR MD Ot I25. 10 ATHSCL HEART DISEASE OF [place] CORONARY 08/18/2016 ADAL ANDUJAR MD Ot I44. 7 LEFT BUNDLE-BRANCH BLOCK, UNSPECIFIED 08/18/2016 ADAL ANDUJAR MD Ot I51. 9 HEART DISEASE, UNSPECIFIED 08/18/2016 ADAL ANDUJAR MD J Ot R07. 89 OTHER CHEST PAIN 08/19/2016 BEVERLY MOREIRA MD Ot R19.7 DIARRHEA, UNSPECIFIED 09/05/2016 ADAL ANDUJAR MD Ot E78. 2 MIXED HYPERLIPIDEMIA 09/05/2016 ADAL ANDUJAR MD Ot I11. 9 HYPERTENSIVE HEART DISEASE WITHOUT HEART 09/05/2016 ADAL ANDUJAR MD Ot I25. 10 ATHSCL HEART DISEASE OF [place] CORONARY 09/05/2016 ADAL ANDUJAR MD Ot I44. 7 LEFT BUNDLE-BRANCH BLOCK, UNSPECIFIED 09/05/2016 ADAL ANDUJAR MD Ot I51. 9 HEART DISEASE, UNSPECIFIED 09/05/2016 ADAL ANDUJAR MD Ot R07. 89 OTHER CHEST PAIN 09/05/2016 BEVERLY MOREIRA MD Ot Z45.2 ENCOUNTER FOR ADJUSTMENT AND MANAGEMENT 09/10/2016 ADAL ANDUJAR MD Ot E78. 2 MIXED HYPERLIPIDEMIA 09/10/2016 ADAL ANDUJAR MD Ot I11. 9 HYPERTENSIVE HEART DISEASE WITHOUT HEART 09/10/2016 ADAL ANDUJAR MD Ot I25. 10 ATHSCL HEART DISEASE OF [place] CORONARY 09/10/2016 ADAL ANDUJAR MD Ot I44. 7 LEFT BUNDLE-BRANCH BLOCK, UNSPECIFIED 09/10/2016 ADAL ANDUJAR MD Ot I51. 9 HEART DISEASE, UNSPECIFIED 09/10/2016 ADAL ANDUJAR MD J Ot R07. 89 OTHER CHEST PAIN 09/10/2016 BEVERLY MOREIRA MD Ot Z45.2 ENCOUNTER FOR ADJUSTMENT AND MANAGEMENT 10/03/2016 SHIRA CAMPO CARBON ROD INSERTER Ot R19.7 DIARRHEA, UNSPECIFIED 10/03/2016 SHIRA CAMPO CARBON ROD INSERTER Ot R19.7 DIARRHEA, UNSPECIFIED 10/03/2016 SHIRA CAMPO CARB[employer] ROD INSERTER Ot R19.7 DIARRHEA, UNSPECIFIED 10/22/2016 SHIRA CAMPO APRN Ot R19.7 DIARRHEA, UNSPECIFIED 12/23/2016 SESAR BRIONES DO, Ot E11.9 TYPE 2 DIABETES MELLITUS WITHOUT COMPLIC 12/23/2016 SESAR BRIONES DO, Ot I25.10 ATHSCL HEART DISEASE OF [place] CORONARY 12/23/2016 SESAR BRIONES DO Ot I48.2 CHRONIC ATRIAL FIBRILLATION 12/23/2016 SESAR BRIONES DO, Ot R4 2 DIZZINESS AND GIDDINESS 12/23/2016 SESAR BRIONES DO, Ot R5 5 SYNCOPE AND COLLAPSE 12/23/2016 SESAR BRIONES DO, Ot Z79.82 CAUSTIC OPERATOR (CURRENT) USE OF ASPIRIN 12/23/2016 SESAR BRIONES DO, Ot Z79.899 OTHER [facility] (CURRENT) DRUG THERAPY 12/24/2016 SESAR BRIONES DO, Ot E11.9 TYPE 2 DIABETES MELLITUS WITHOUT COMPLIC 12/24/2016 SESAR BRIONES DO, Ot I25.10 ATHSCL HEART DISEASE OF [place] CORONARY 12/24/2016 SESAR BRIONES DO Ot I48.2 CHRONIC ATRIAL FIBRILLATION 12/24/2016 SESAR BRIONES DO, Ot R4 2 DIZZINESS AND GIDDINESS 12/24/2016 SESAR BRIONES DO, Ot R5 5 SYNCOPE AND COLLAPSE 12/24/2016 SESAR BRIONES DO, Ot Z79.82 [facility] (CURRENT) USE OF ASPIRIN 12/24/2016 SESAR BRIONES DO, Ot Z79.899 OTHER [facility] (CURRENT) DRUG THERAPY 03/25/2017 Ot V72.84 EXA [...] 03/25/2017 ADAL ANDUJAR MD Ot V72. 81 FOBX-[id number] CARDIOVASCULAR 03/25/2017 NORA BULLOCK, WOODY Betancourt Ot V67.9 FOLLOW-UP EXAM NOS 03/25/2017 KI PAZ Ot 272.4 HYPERLIPIDEMIA NEC/NOS 03/25/2017 KI PAZ Ot 401.9 HYPERTENSION NOS 03/25/2017 KI PAZ Ot 414.00 CORON ATHEROSCLER NOS TYPE VESSEL, NATIV 03/25/2017 KI APZ Ot 228.04 HEMANGIOMA INTRA-ABDOM 03/25/2017 KI PAZ [...] Ot 786. 09 RESPIRATORY ABNORM NEC 03/25/2017 JACKIE BULLOCK, DAREK [...] 733.00 OST EOPOROSIS NOS 03/25/2017 YESY HENDRIX VIDEO POKER FLOORMAN Ot 724.8 OTHER BACK SYMPTOMS 03/25/2017 BEVERLY MOREIRA MD Ot D49.2 NEOPLASM OF UNSP BEHAVIOR OF BONE, SOFT 03/25/2017 ADAL ANDUJAR MD Ot E78. 2 MIXED HYPERLIPIDEMIA 03/25/2017 ADAL ANDUJAR MD Ot I10 ESSENTIAL (PRIMARY) HYPERTENSION 03/25/2017 ADAL ANDUJAR MD Ot I25. 10 ATHSCL HEART DISEASE OF [place] CORONARY 03/25/2017 ADAL ANDUJAR MD Ot R00. 2 PALPITATIONS 03/25/2017 EFRA PEARSON MD Ot E78.2 MIXED HYPERLIPIDEMIA 03/25/2017 EFRA PEARSON MD Ot I10 ESSENTIAL (PRIMARY) HYPERTENSION 03/25/2017 EFRA PEARSON MD Ot I25.1 0 ATHSCL HEART DISEASE OF [place] CORONARY 03/25/2017 EFRA PEARSON MD Ot R00.2 PALPITATIONS 03/25/2017 BEVERLY MOREIRA MD Ot R19.7 DIARRHEA, UNSPECIFIED 03/25/2017 BEVERLY MOREIRA MD Ot R19.7 DIARRHEA, UNSPECIFIED 03/25/2017 SHIRA CAMPO APRN Ot A69.20 LYME DISEASE, UNSPECIFIED 03/25/2017 SHIRA CAMPO CARBON ROD INSERTER Ot R19.7 DIARRHEA, UNSPECIFIED 03/25/2017 ADAL ANDUJAR MD Ot E78. 2 MIXED HYPERLIPIDEMIA 03/25/2017 ADAL ANDUJAR MD Ot I11. 9 HYPERTENSIVE HEART DISEASE WITHOUT HEART 03/25/2017 ADAL ANDUJAR MD Ot I25. 10 ATHSCL HEART DISEASE OF [place] CORONARY 03/25/2017 ADAL ANDUJAR MD Ot I44. 7 LEFT BUNDLE-BRANCH BLOCK, UNSPECIFIED 03/25/2017 ADAL ANDUJAR MD Ot I51. 9 HEART DISEASE, UNSPECIFIED 03/25/2017 ADAL ANDUJAR MD Ot R07. 89 OTHER CHEST PAIN 03/25/2017 BEVERLY MOREIRA MD Ot A69.20 LYME DISEASE, UNSPECIFIED 03/25/2017 BEVERLY MOREIRA MD Ot Z45.2 ENCOUNTER FOR ADJUSTMENT AND MANAGEMENT 03/25/2017 BEVERLY MOREIRA MD Ot Z45.2 ENCOUNTER FOR ADJUSTMENT AND MANAGEMENT 03/25/2017 BEVERLY MOREIRA MD, Ot Z45.2 ENCOUNTER FOR ADJUSTMENT AND MANAGEMENT 03/25/2017 SHIRA CAMPO CARBON ROD INSERTER Ot R19.7 DIARRHEA, UNSPECIFIED 03/30/2017 BEVERLY MOREIRA MD Ot R40.4 TRANSIENT ALTERATION OF AWARENESS 04/20/2017 BEVERLY MOREIRA MD Ot R40.4 TRANSIENT ALTERATION OF AWARENESS 04/28/2017 BEVERLY MOREIRA MD Ot R40.4 TRANSIENT ALTERATION OF AWARENESS 10/14/2017 ADAL ANDUJAR MD Ot E78. 5 HYPERLIPIDEMIA, UNSPECIFIED 10/14/2017 ADAL ANDUJAR MD Ot I11. 0 HYPERTENSIVE HEART DISEASE WITH HEART FA 10/14/2017 ADAL ANDUJAR MD Ot I25. 10 ATHSCL HEART DISEASE OF [place] CORONARY 10/14/2017 ADAL ANDUJAR MD Ot I34. 1 NONRHEUMATIC MITRAL (VALVE) PROLAPSE 10/14/2017 ADAL ANDUJAR MD Ot I44. 7 LEFT BUNDLE-BRANCH BLOCK, UNSPECIFIED 10/14/2017 ADAL ANDUJAR MD Ot I48. 0 PAROXYSMAL ATRIAL FIBRILLATION 10/14/2017 ADAL ANDUJAR MD Ot I50. 22 CHRONIC SYSTOLIC (CONGESTIVE) HEART FAIL 10/14/2017 ADAL ANDUJAR MD Ot M79. 7 FIBROMYALGIA 10/14/2017 ADAL ANDUJAR MD Ot Z79. 01 [facility] (CURRENT) USE OF ANTICOAGULANT 10/14/2017 ADAL ANDUJAR MD Ot Z79. 82 CAUSTIC OPERATOR (CURRENT) USE OF ASPIRIN 10/14/2017 ADAL ANDUJAR MD Ot Z79.899 OTHER [facility] (CURRENT) DRUG THERAPY 10/14/2017 ADAL ANDUJAR MD Ot Z95. 5 PRESENCE OF CORONARY ANGIOPLASTY IMPLANT 10/23/2017 ADAL ANDUJAR MD Ot E78. 5 HYPERLIPIDEMIA, UNSPECIFIED 10/23/2017 ADAL ANDUJAR MD Ot I11. 0 HYPERTENSIVE HEART DISEASE WITH HEART FA 10/23/2017 ADAL ANDUJAR MD Ot I25. 10 ATHSCL HEART DISEASE OF [place] CORONARY 10/23/2017 ADAL ANDUJAR MD Ot I34. 1 NONRHEUMATIC MITRAL (VALVE) PROLAPSE 10/23/2017 ADAL ANDUJAR MD Ot I44. 7 LEFT BUNDLE-BRANCH BLOCK, UNSPECIFIED 10/23/2017 ADAL ANDUJAR MD Ot I48. 0 PAROXYSMAL ATRIAL FIBRILLATION 10/23/2017 ADAL ANDUJAR MD Ot I50. 22 CHRONIC SYSTOLIC (CONGESTIVE) HEART FAIL 10/23/2017 ADAL ANDUJAR MD Ot M79. 7 FIBROMYALGIA 10/23/2017 ADAL ANDUJAR MD Ot Z79. 01 CAUSTIC OPERATOR (CURRENT) USE OF ANTICOAGULANT 10/23/2017 ADAL ANDUJAR MD Ot Z79. 82 [facility] (CURRENT) USE OF ASPIRIN 10/23/2017 ADAL ANDUJAR MD Ot Z79.899 OTHER [facility] (CURRENT) DRUG THERAPY 10/23/2017 ADAL ANDUJAR MD Ot Z95. 5 PRESENCE OF CORONARY ANGIOPLASTY IMPLANT 11/13/2017 ADAL ANDUJAR MD Ot E78. 5 HYPERLIPIDEMIA, UNSPECIFIED 11/13/2017 ADAL ANDUJAR MD Ot I11. 0 HYPERTENSIVE HEART DISEASE WITH HEART FA 11/13/2017 ADAL ANDUJAR MD Ot I25. 10 ATHSCL HEART DISEASE OF [place] CORONARY 11/13/2017 ADAL ANDUJAR MD Ot I34. 1 NONRHEUMATIC MITRAL (VALVE) PROLAPSE 11/13/2017 ADAL ANDUJAR MD Ot I44. 7 LEFT BUNDLE-BRANCH BLOCK, UNSPECIFIED 11/13/2017 ADAL ANDUJAR MD Ot I48. 0 PAROXYSMAL ATRIAL FIBRILLATION 11/13/2017 ADAL ANDUJAR MD Ot I50. 22 CHRONIC SYSTOLIC (CONGESTIVE) HEART FAIL 11/13/2017 ADAL ANDUJAR MD Ot M79. 7 FIBROMYALGIA 11/13/2017 ADAL ANDUJAR MD Ot Z79. 01 CAUSTIC OPERATOR (CURRENT) USE OF ANTICOAGULANT 11/13/2017 ADAL ANDUJAR MD Ot Z79. 82 [facility] (CURRENT) USE OF ASPIRIN 11/13/2017 ADAL ANDUJAR MD Ot Z79.899 OTHER [facility] (CURRENT) DRUG THERAPY 11/13/2017 ADAL ANDUJAR MD Ot Z95. 5 PRESENCE OF CORONARY ANGIOPLASTY IMPLANT 06/22/2018 Ot Z01.818 EN COUNTER FOR OTHER PREPROCEDURAL EXAMIN 06/23/2018 Ot E03.9 HYPO THYROIDISM, UNSPECIFIED 06/23/2018 Ot G43.909 DE GRAINE, UNSP, NOT INTRACTABLE, WITHOUT 06/23/2018 Ot K21.0 JASON RO-ESOPHAGEAL REFLUX DISEASE WITH ES 06/23/2018 Ot K29.70 GAS TRITIS, UNSPECIFIED, WITHOUT BLEEDING 06/23/2018 Ot K44.9 DIAP HRAGMATIC HERNIA WITHOUT OBSTRUCTION 06/23/2018 Ot Z79.82 RAND G TERM (CURRENT) USE OF ASPIRIN 06/23/2018 Ot Z79.899 OT HER [facility] (CURRENT) DRUG THERAPY 06/28/2018 Ot Z01.818 EN COUNTER FOR OTHER PREPROCEDURAL EXAMIN 07/21/2018 RADHA GLYNN, FLOWER C Ot 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, LUMBAR REGION 07/21/2018 RADHA GLYNN, FLOWER C Ot M47.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, CE 07/21/2018 RADHA GLYNN, FLOWER C Ot M47.26 OTHER SPONDYLOSIS WITH RADICULOPATHY, CASE 07/26/2018 RADHA GLYNN, FLOWER C Ot 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, LUMBAR REGION 07/26/2018 RADHA GLYNN, FLOWER Brown Ot M47.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, CE 07/26/2018 RADHA GLYNN, FLOWER Brown Ot M47.26 OTHER SPONDYLOSIS WITH RADICULOPATHY, CASE 08/13/2018 RADHA GLYNN, FLOWER Brown Ot 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, LUMBAR REGION 08/13/2018 RADHA GLYNN, FLOWER C Ot M47.22 OTHER [...] PERSONAL HISTORY OF OTHER DISEASES OF 12/31/2018 BEVERLY MOREIRA MD A Ot R19.7 DIARRHEA, UNSPECIFIED 01/04/2019 HARISH BULLOCK, BEVERLY A Ot R19.7 DIARRHEA, UNSPECIFIED 01/05/2019 HARISH BULLOCK, BEVERLY A Ot R19.7 DIARRHEA, UNSPECIFIED 01/10/2019 BEVERLY MOREIRA MD A Ot R19.7 DIARRHEA, UNSPECIFIED 01/17/2019 KI [...] 733.00 OST EOPOROSIS NOS 01/17/2019 YESY HENDRIX VIDEO POKER FLOORMAN Ot 724.8 OTHER BACK SYMPTOMS 01/17/2019 HARISH BULLOCK, BEVERLY Luz Ot D49.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 2 MIXED HYPERLIPIDEMIA 01/17/2019 ADAL ANDUJAR MD Ot I10 ESSENTIAL (PRIMARY) HYPERTENSION 01/17/2019 ADAL ANDUJAR MD Ot I25. 10 ATHSCL HEART DISEASE OF [place] CORONARY 01/17/2019 ADAL ANDUJAR MD Ot R00. 2 PALPITATIONS 01/17/2019 EFRA PEARSON MD Ot E78.2 MIXED HYPERLIPIDEMIA 01/17/2019 EFRA PEARSON MD Ot I10 ESSENTIAL (PRIMARY) HYPERTENSION 01/17/2019 EFRA PEARSON MD Ot I25.1 0 ATHSCL HEART DISEASE OF [place] CORONARY 01/17/2019 EFRA PEARSON MD Ot R00.2 PALPITATIONS 01/17/2019 BEVERLY MOREIRA MD Ot R19.7 DIARRHEA, UNSPECIFIED 01/17/2019 BEVERLY MOREIRA MD Ot R19.7 DIARRHEA, UNSPECIFIED 01/17/2019 SHIRA CAMPO CARBON ROD INSERTER Ot A69.20 LYME DISEASE, UNSPECIFIED 01/17/2019 SHIRA CAMPO CARB[employer] ROD INSERTER Ot R19.7 DIARRHEA, UNSPECIFIED 01/17/2019 CON BULLOCK, ADAL Randhawa Ot E78. 2 MIXED HYPERLIPIDEMIA 01/17/2019 CON BULLOCK, ADAL Randhawa Ot I11. 9 HYPERTENSIVE HEART DISEASE WITHOUT HEART 01/17/2019 ADAL ANDUJAR MD Ot I25. 10 ATHSCL HEART DISEASE OF [place] CORONARY 01/17/2019 ADAL ANDUJAR MD Ot I44. 7 LEFT BUNDLE-BRANCH BLOCK, UNSPECIFIED 01/17/2019 ADAL ANDUJAR MD Ot I51. 9 HEART DISEASE, UNSPECIFIED 01/17/2019 CON BULLOCK, ADAL Randhawa Ot R07. 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 7 DIARRHEA, UNSPECIFIED 01/17/2019 PRANAY LIND MD Ot Z87. 19 PERSONAL HISTORY OF OTHER DISEASES OF 01/17/2019 HARISH BULLOCK, BEVERLY Luz Ot R19.7 DIARRHEA, UNSPECIFIED 01/17/2019 HARISH BULLOCK, BEVERLY Luz Ot R19.7 DIARRHEA, UNSPECIFIED 01/28/2019 DIOGO BULLOCK, PRANAY Brown Ot R19. 7 DIARRHEA, UNSPECIFIED 01/28/2019 DIOGO BULLOCK, PRANAY Brown Ot Z87. 19 PERSONAL HISTORY OF OTHER DISEASES OF 01/31/2019 DIOGO BULLOCK, PRANAY Brown Ot R19. 7 DIARRHEA, UNSPECIFIED 01/31/2019 DIOGO BULLOCK, PRANAY Brwon Ot Z87. 19 PERSONAL HISTORY OF OTHER DISEASES OF 02/08/2019 SIMEONYESY VIDEO POKER FLOORMAN Ot R51 HEADACHE 02/21/2019 HARISH BULLOCK, BEVERLY Luz Ot R19.7 DIARRHEA, UNSPECIFIED 02/22/2019 [...] Ot I25. 10 ATHSCL HEART DISEASE OF [place] CORONARY 08/14/2019 ADAL ANDUJAR MD Ot K21. 9 GASTRO-ESOPHAGEAL REFLUX DISEASE WITHOUT 08/14/2019 ADAL ANDUJAR MD Ot R00. 2 PALPITATIONS 08/22/2019 ADAL ANDUJAR MD Ot I10 ESSENTIAL (PRIMARY) HYPERTENSION 08/22/2019 ADAL ANDUJAR MD Ot I25. 10 ATHSCL HEART DISEASE OF [place] CORONARY 08/22/2019 ADAL ANDUJAR MD Ot I34. 0 NONRHEUMATIC MITRAL (VALVE) INSUFFICIENC 08/22/2019 ADAL ANDUJAR MD Ot K21. 9 GASTRO-ESOPHAGEAL REFLUX DISEASE WITHOUT 08/22/2019 ADAL ANDUJAR MD Ot R00. 2 PALPITATIONS 09/02/2019 ADAL ANDUJAR MD Ot I10 ESSENTIAL (PRIMARY) HYPERTENSION 09/02/2019 ADAL ANDUJAR MD Ot I25. 10 ATHSCL HEART DISEASE OF [place] CORONARY 09/02/2019 ADAL ANDUJAR MD Ot K21. 9 GASTRO-ESOPHAGEAL REFLUX DISEASE WITHOUT 09/02/2019 ADAL ANDUJAR MD Ot R00. 2 PALPITATIONS 09/05/2019 ADAL ANDUJAR MD Ot I10 ESSENTIAL (PRIMARY) HYPERTENSION 09/05/2019 ADAL ANDUJAR MD Ot I25. 10 ATHSCL HEART DISEASE OF [place] CORONARY 09/05/2019 ADAL ANDUJAR MD Ot K21. 9 GASTRO-ESOPHAGEAL REFLUX DISEASE WITHOUT 09/05/2019 ADAL ANDUJAR MD Ot R00. 2 PALPITATIONS 09/08/2019 ADAL ANDUJAR MD Ot I10 ESSENTIAL (PRIMARY) HYPERTENSION 09/08/2019 ADAL ANDUJAR MD Ot I25. 10 ATHSCL HEART DISEASE OF [place] CORONARY 09/08/2019 ADAL ANDUJAR MD Ot I34. 0 NONRHEUMATIC MITRAL (VALVE) INSUFFICIENC 09/08/2019 ADAL ANDUJAR MD Ot K21. 9 GASTRO-ESOPHAGEAL REFLUX DISEASE WITHOUT 09/08/2019 ADAL ANDUJAR MD Ot R00. 2 PALPITATIONS 09/13/2019 ADAL ANDUJAR MD Ot I10 ESSENTIAL (PRIMARY) HYPERTENSION 09/13/2019 ADAL ANDUJAR MD Ot I25. 10 ATHSCL HEART DISEASE OF [place] CORONARY 09/13/2019 ADAL ANDUJAR MD Ot I34. 0 NONRHEUMATIC MITRAL (VALVE) INSUFFICIENC 09/13/2019 ADAL ANDUJAR MD Ot K21. 9 GASTRO-ESOPHAGEAL REFLUX DISEASE WITHOUT 09/13/2019 ADAL ANDUJAR MD Ot R00. 2 PALPITATIONS 01/06/2020 W E03.4 Atro phy of thyroid (acquired) Harish Beverly 01/06/2020 W I10 Essent ial (primary) hypertension Harish Beverly 01/06/2020 W R14.0 Gase ous abdominal distention Harish Beverly 03/22/2020 W E03.4 Atro phy of thyroid (acquired) Harish Beverly 03/22/2020 W I10 Essent ial (primary) hypertension Beverly Moreira 05/09/2020 W R51 Headache Beverly Moreira Procedures There is no data. Results Test Result Range Stool bacteria identification by culture - 06/05/16 16:54 Stool bacteria identification by culture N2 [facility] Comprehensive metabolic panel - 06/06/16 11:25 Serum [...] toxigen ic C diff by DNA amplification [facility] Clostridium difficile detection - 19:30 C DIFF MOLECULAR RESULT Positive for toxigen ic C diff by DNA amplification [facility] CALL POSITIVES (F1 HELP) CALLED TO DR ANAND 12:24 NRG Ova and parasites - 06/20/16 19:30 DATE OF REF LAB REPORT 07/03/16 9:20 NR OTP NEGATIVE RESULT PARASITES NOT FOUND [facility] Clostridium difficile detection - 09:00 C DIFF MOLECULAR RESULT Negative for toxigen ic C diff by DNA amplification [facility] C DIFFICILE AG + TOXIN A/B. - 10/02/16 0 9:50 RESULTS NEGATIVE FOR ANTIGEN AND TOXIN A/B [facility] Complete blood count (CBC) with automate d [...] NO NRG Automated blood complete blood count [facility] panel - 10/14/17 12:08 Blood leukocytes automated [...] TEXT ENTRY 2 POSITIVE FOR GHD ANTIGEN NR FREE TEXT ENTRY 3 NEGATIVE FOR TOXINS A AND B NR RESULTS INDETERMINANT; MOLECULAR TEST TO FOLLOW NR C DIFFICILE AG + TOXIN A/B. - 10/30/18 1 0:50 FREE TEXT ENTRY 2 LEFT MESSAGE TO CALL VIA LINDSAY WOODS AT [facility] FREE TEXT ENTRY 10/30/18 15:30 BY Pat LUNA [facility] CALL POSITIVES (F1 HELP) CALLED TO DR CLAIRE Juarez AT [phone] [facility] SPECIAL CONTACT SPECIAL CONTACT PRECAUTIONS NEEDED NR RESULTS POSITIVE FOR ANTIGEN AND TOXIN A/B [facility] C DIFFICILE AG + TOXIN A/B. - 11/23/18 1 5:45 FREE TEXT ENTRY 2 11/24/18 09:00 BY Jesus LUNA [facility] CALL POSITIVES (F1 HELP) CALLED TO ALLA FIGUEROA AT DR MOREIRA'S OFFICE [facility] RESULTS NEGATIVE FOR ANTIGEN AND TOXIN A/B [facility] COVID-19 ([facility]) - 05/05/20 18:18 Encounters ACCT No. Visit Date/Time Discharge Status Pt. Type Provider Facility Loc./Unit Complaint [id number] 05/05/2020 11:45:00 05/05/2020 23:59: 59 CLS Outpatient Beverly Moreira [facility] [id number] 05/05/2020 11:45:00 Document Registration [id number] 08/06/2017 18:16:55 08/06/2017 23:59:5 9 CLS Outpatient [id number] 05/05/2020 11:31:00 11:43:00 DIS Emergency HEMA BULLOCK, GUILHERME Juarez [facility] ER FEVER, SORE THR OAT , COUGH [id number] 08/18/2019 09:55:00 23:59:59 CLS Outpatient ADAL ANDUJAR MD [facility] CARD HTN [id number] 08/08/2019 07:49:00 23:59:59 CLS Outpatient ADAL ANDUJAR MD [facility] CARD HTN [id number] 03/12/2019 20:43:00 06:45:00 DIS Outpatient CHDAWICK SEGURA MD [facility] SLEEP MONIQUE [id number] 02/22/2019 00:17:00 23:59:59 CLS Preadmit BEVERLY MOREIRA MD [facility] LAB DIARRHEA [id number] 11/23/2018 17:31:00 00:01:00 DIS Outpatient BEVERLY MOREIRA MD [facility] LAB DIARRHEA [id number] 01/29/2019 00:10:00 23:59:59 CLS Preadmit PRANAY LIND MD [facility] LAB DIARRHEA [id number] 10/30/2018 14:44:00 00:01:00 DIS Outpatient PRANAY LIND MD [facility] LAB DIARRHEA [id number] 01/18/2019 15:44:00 23:59:59 CLS Outpatient YESY HENDRIX [facility] RAD HEADACHE [id number] 01/05/2019 00:13:00 019 23:59:59 CLS Preadmit BEVERLY MOREIRA MD [facility] LAB DIARRHEA [id number] 10/06/2018 15:21:00 019 00:01:00 DIS Outpatient BEVERLY MOREIRA MD [facility] LAB DIARRHEA [id number] 07/20/2018 10:51:00 018 23:59:59 CLS Outpatient FLOWER GARCIA DC [facility] RAD LOW BACK PAIN WITH RIGH T RADICULOPATHY [id number] 10/14/2017 11:51:00 017 18:40:00 DIS Outpatient ADAL ANDUJAR MD [facility] CATH CP,CAD [id number] 03/27/2017 08:07:00 23:59:59 CLS Outpatient BEVERLY MOREIRA MD [facility] RT TRANSIENT ALTERATION O F AWARENESS [id number] 12/23/2016 21:22:00 017 23:18:00 DIS Emergency SESAR BRIONES DO [facility] ER FALL/SYNCOPE [id number] 10/02/2016 11:26:00 016 23:59:59 CLS Outpatient SHIRA CAMPO APRN [facility] LAB DIARRHEA [id number] 08/19/2016 10:06:00 10:07:00 DIS Outpatient BEVERLY MOREIRA MD [facility] LAB DIARRHEA [id number] 08/15/2016 11:10:00 23:59:59 CLS Outpatient BEVERLY MOREIRA MD [facility] SDC PICC LINE REMOVAL [id number] 08/15/2016 10:33:00 23:59:59 CLS Outpatient ADAL ANDUJAR MD [facility] CARD CAD,CHEST PAIN,HTN,LABB [id number] 08/07/2016 00:08:00 016 23:59:59 CLS Preadmit BEVERLY MOREIRA MD [facility] PICC LINE CAROLINA BORDEN [id number] 06/06/2016 11:19:00 00:01:00 DIS Outpatient BEVERLY MOREIRA MD [facility] PICC LINE [place] BORDEN [id number] 07/18/2016 10:34:00 016 23:59:59 CLS Outpatient BEVERLY MOREIRA MD [facility] PICC LINE FOR LYME DIS EASE TREATMENT [id number] 05/29/2016 17:30:00 00:01:00 DIS Outpatient BEVERLY MOREIRA MD [facility] LAB DIARRHEA [id number] 06/20/2016 19:30:00 23:59:59 CLS Outpatient SHIRA CAMPO APRN [facility] LAB DIARRHEA [id number] 06/18/2016 00:11:00 016 23:59:59 CLS Preadmit SHIRA CAMPO APRN [facility] LYME DISEASE [id number] 03/20/2016 08:01:00 00:01:00 DIS Outpatient SHIRA CAMPO APRN [facility] LYME DISEASE [id number] 06/05/2016 16:53:00 016 23:59:59 CLS Outpatient BEVERLY MOREIRA MD [facility] LAB DIARRHEA [id number] 05/17/2016 06:00:00 016 23:59:59 CLS Outpatient BEVERLY MOREIRA MD [facility] LAB DIARRHEA [id number] 04/19/2016 10:27:00 12:30:00 DIS Outpatient BEVERLY MOREIRA MD [facility] PICC LINE [id number] 02/13/2016 12:14:00 23:59:59 CLS Outpatient ADAL ANDUJAR MD [facility] CARD CAD,HTN,HLP,PALPITATION S [id number] 01/07/2016 15:47:00 016 23:59:59 CLS Outpatient EFRA PEARSON MD [facility] RAD CAD,HTN,PALPITATIONS,HY PERLIPEDEMIA [id number] 11/12/2015 10:54:00 016 23:59:59 CLS Outpatient BEVERLY MOREIRA MD [facility] RAD LUMBAR NERVE ROOT TUMO R [id number] 04/13/2015 07:40:00 015 23:59:59 CLS Outpatient YESY HENDRIX [facility] RAD F/U NODULE LESI ON CAUDAEQUINA,LBP [id number] 05/17/2014 09:02:00 014 14:05:00 DIS Outpatient DAREK MEJIA MD [facility] SDC EPIGASTRIC PAIN;FAMILY HISTORY COLON CANCER [id number] 05/15/2014 14:50:00 014 23:59:59 CLS Outpatient DAREK MEJIA MD [facility] PREOP EPIGASTRIC PAIN; FAMILY HISTORY COLON CANCER [id number] 04/28/2014 14:35:00 014 16:40:00 DIS Emergency JASMYN BARNES MD [facility] ER CHEST PAIN [id number] 03/29/2014 08:53:00 014 23:59:59 CLS Outpatient ADAL ANDUJAR MD [facility] CATH AFIB [id number] 03/22/2014 06:45:00 014 14:30:00 DIS Outpatient ADAL ANDUJAR MD [facility] CATH AFIB,CAD,CP,HTN,HLP [id number] 02/22/2014 10:41:00 014 23:59:59 CLS Outpatient MARIA C PAZ [facility] RAD CP,CAD,HTN [id number] 12/22/2013 13:02:00 014 23:59:59 CLS Outpatient BREEZY MCCOY, MARIA C Muniz [facility] CARD CAD,HTN,HLP [id number] 06/07/2013 13:28:00 013 23:59:59 CLS Outpatient NORA BULLOCK, WOODY Betancourt [facility] RAD FOLLOW-UP HEPAT IC RESECTION [id number] 04/06/2013 11:37:00 013 23:59:59 CLS Outpatient CON BULLOCK, ADAL Randhawa [facility] RAD CHEST PAIN,SOB,PREOP CL EARANCE [id number] 06/23/2018 10:46:00 Document Registration [id number] 06/22/2018 10:04:00 Document Registration [id number] 08/15/2016 10:34:00 Document Registration [id number] 08/15/2016 10:34:00 Document Registration [id number] 08/15/2016 10:33:00 Document Registration [id number] 04/11/2015 08:27:00 Document Registration [id number] 01/25/2015 10:05:00 Document Registration [id number] 01/19/2015 10:53:00 Document Registration [id number] 02/16/2013 13:46:00 Document Registration [id number] 02/10/2013 09:33:00 Document Registration [id number] 02/03/2013 09:08:00 Document Registration [id number] 01/31/2013 09:47:00 Document Registration [id number] 08/30/2012 08:44:00 Document Registration [id number] 08/27/2012 08:23:00 Document Registration [id number] 07/26/2012 12:49:00 Document Registration [id number] 05/22/2011 09:34:00 Document Registration
== END 2020-05-05 11:43 | disposition left against medical advice (07) ==
LOC: EDUNIT# 11:30 → ER 11:31
DX: J02.9 Acute pharyngitis, unspecified (principal); R50.9 Fever, unspecified; R05 Cough

== ENCOUNTER → 2021-04-09 | Outpatient (CLI) | payer MEDICARE ==
[~2021-04-09] MED LIST changes: -AMIT10TA6 PO; +AMT10T PO; +BUTA-235 PO; -BUTA1TAB9 PO; -LISI-556; +LISI-729
== END ==
LOC: LABNPT 06:31
PROVIDERS: ATTEND Otolaryngology Otolaryngology/Facial Plastic Surgery
DX: G47.33 Obstructive sleep apnea (adult) (pediatric) (principal)

== ENCOUNTER 2021-04-10 19:53 | Outpatient (CLI) | payer MEDICARE, OTHER | END 2021-04-11 07:03 | disposition home or self-care (01) | LOC: SLEEP 19:53 | PROVIDERS: ATTEND Otolaryngology Otolaryngology/Facial Plastic Surgery | DX: G47.33 Obstructive sleep apnea (adult) (pediatric) (principal) | CPT/HCPCS: 95811 ==

== ENCOUNTER → 2021-04-19 | Outpatient (CLI) | payer MEDICARE, OTHER | LOC: CARD 11:30 | PROVIDERS: ATTEND Internal Medicine Cardiovascular Disease | DX: I11.9 Hypertensive heart disease without heart failure (principal); I35.8 Other nonrheumatic aortic valve disorders; I25.10 Atherosclerotic heart disease of native coronary artery without angina pectoris | CPT/HCPCS: 93306 ==

== ENCOUNTER 2021-05-17 11:19 | Emergency (ER) | payer MEDICARE, OTHER ==
[~2021-05-17] VITALS: Ht 154 cm; Wt 50.0 kg
[2021-05-17] MEDS ORDERED: RABIES VACCINE HUMAN DIPL CELL 1 ML/2.5 UNITS SYR IM ONE (12:00)
--- NOTE | 2021-05-17 12:02 | ED General ---
General Chief Complaint: Bite-Animal/Human/Insect Stated Complaint: R ARM DOG BITE Source of Information: Patient Exam Limitations: No Limitations History of Present Illness Date Seen by Provider: May 17, 2021 Time Seen by Provider: 11:57 Initial Comments To ER by private vehicle with reports of a right arm dog bite. 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 This dog was accompanied by its law firm partner who was in there to buy something. However the dog is not known to the residential pest control technician clinic. As such the rabies vaccine status of the dog is unknown. The patient's tetanus vaccine status is believed to be at about 5 years. She called primary care today who referred her to the emergency room for rabies vaccination series. Timing/Duration: 1-2 Days Severity: Moderate Associated Systoms: Denies Symptoms Allergies and Home Medications Allergies Coded Allergies: Penicillins (Unverified Allergy, Unknown, 05/17/14) Sulfa (Sulfonamide Antibiotics) (Verified Allergy, Unknown, 07/10/08) Home Medications Aspirin 81 Mg Tab.chew, 81 MG PO DAILY, (Reported) Butalb/Acetaminophen/Caffeine 1 Each Tablet, 1 TAB PO TID PRN for HEADACHE, (Reported) Carvedilol 3.125 Mg Tablet, 3.125 MG PO BID, (Reported) Pantoprazole Sodium 40 Mg Tablet.dr, 40 MG PO DAILY Prescribed by: DAREK MEJIA on 06/23/18 1403 Thyroid,Pork 60 Mg Tablet, 60 MG PO DAILY, (Reported) Patient Home Medication List Home Medication List Reviewed: Yes Review of Systems Review of Systems Constitutional: see HPI EENTM: see HPI Respiratory: no symptoms reported Cardiovascular: no symptoms reported Genitourinary: no symptoms reported Musculoskeletal: no symptoms reported Skin: no symptoms reported Psychiatric/Neurological: No Symptoms Reported Hematologic/Lymphatic: No Symptoms Reported Immunological/Allergic: no symptoms reported Past Ivrxlia-Hukeeh-Ijsmkt Hx Patient Social History Tobacco Use?: No Substance use?: No Pt feels they are or have been: No Immunizations Up To Date Influenza Vaccine Up-to-Date: No; Not Current First/Initial COVID19 Vaccinat: not taken Seasonal Allergies Seasonal Allergies: Yes Past Medical History Coronary Stent, Eye Surgery, Gallbladder, Hysterectomy Sleep Apnea Currently Using CPAP: Yes Coronary Artery Disease, Hypertension Headaches /Migraines Reproductive Disorders: No Gastroesophageal Reflux Fibromyalgia Diabetes, Non-Insulin dep Depression Physical Exam Vital Signs Capillary Refill : Height, Weight, BMI Height: 5'1.00" Weight: 105lbs. 0.0oz. 47.091667if; 19.8 BMI Method:Stated General Appearance: No Apparent Distress, WD/WN, Thin Eyes: Bilateral Eye Normal Inspection, Bilateral Eye PERRL, Bilateral Eye EOMI HEENT: PERRL/EOMI, TMs Normal Neck: Full Range of Motion, Normal Inspection Respiratory: No Accessory Muscle Use, No Respiratory Distress Extremity: Normal Capillary Refill, Normal Inspection Neurologic/Psychiatric: Alert, Oriented x3 Skin: Normal Color, Warm/Dry, Other (There is a abrasion with minor erythema of about 2 mm around it to the dorsal aspect radial side of the right arm. Because we are 7 days into this injury and no sign of infection antibiotics are not indicated.) Progress/Results/Core Measures Suspected Sepsis SIRS Temperature: Pulse: Respiratory Rate: Blood Pressure / Mean: Results/Orders My Orders Orders - NICA ESCOBAR APRN Rabies Immune Globulin/Pf 10ml (Kedrab 1 (05/17/21 12:00) Rabies Vaccine Human Dipl Cell (Rabavert (05/17/21 12:00) Vital Signs/I&O Capillary Refill : Departure Communication (Admissions) I have set her up for additional rabies vaccines on 05/20/2021, 05/24/2021, 05/31/2021 and 06/13/2021. She will be given rabies vaccine today as well as tetanus vaccine and rabies immunoglobulin 20iu/kg. Impression Primary Impression: Dog bite Disposition: 01 HOME, SELF-CARE Condition: Stable Departure-Patient Inst. Decision time for Depature: 12:01 Referrals: BEVERLY MCLAUGHLIN MD (PCP/Family) Primary Care Physician Patient Instructions: Animal Bites ED Add. Discharge Instructions: . Return to the hospital on 05/20/2021, 05/24/2021, 05/31/2021 and 06/13/2021 for ad ditional rabies vaccines on those dates. All discharge instructions reviewed with patient and/or family. Voiced understanding. Copy Copies To 1: BEVERLY MCLAUGHLIN MD, PETER J APRN May 17, 2021 12:02
[2021-05-17] MEDS ORDERED: TETANUS,DIPTH,PERTUSS P/F (BOOSTRIX) 0.5 ML VIAL IM ONE (12:15)
[2021-05-17] MEDS: RABIES IMMUNE GLOBULIN 150 UNIT/ML IM ONE ×2 (12:30→12:41)
[2021-05-17 13:05] VITALS: BP 151/80
== END 2021-05-17 13:05 | disposition home or self-care (01) ==
LOC: EDUNIT# 11:19 → ER 11:21
DX: S41.151A Open bite of right upper arm, initial encounter (principal); I10 Essential (primary) hypertension; E11.9 Type 2 diabetes mellitus without complications; I25.10 Atherosclerotic heart disease of native coronary artery without angina pectoris; K21.9 Gastro-esophageal reflux disease without esophagitis; G47.33 Obstructive sleep apnea (adult) (pediatric); Z99.89 Dependence on other enabling machines and devices; Z95.5 Presence of coronary angioplasty implant and graft; Z23 Encounter for immunization; Z20.3 Contact with and (suspected) exposure to rabies; W54.0XXA Bitten by dog, initial encounter
CPT/HCPCS: 90675; 90676; 90715; 99284

== ENCOUNTER 2021-06-13 10:49 | Outpatient (RCR) | payer MEDICARE, OTHER ==
[2021-05-20 12:10] VITALS: BP 146/77
[2021-05-24 11:00] VITALS: BP 128/63
[2021-06-03 11:00] VITALS: BP 155/75
[~2021-06-13] VITALS: Ht 152.4 cm; Wt 50.0 kg
[~2021-06-13 10:49] MED LIST changes: +RABIES VACCINE HUMAN DIPL CELL 1 ML/2.5 UNITS SYR IM ONE; +RABIES VACCINE HUMAN DIPL CELL 1 ML/2.5 UNITS SYR INJ ONE
[2021-06-13 10:50] VITALS: BP 143/78
[2021-06-13] MEDS ORDERED: RABIES VACCINE HUMAN DIPL CELL 1 ML/2.5 UNITS SYR INJ ONE (11:00)
== END 2021-06-13 11:40 | disposition home or self-care (01) ==
LOC: SDC 10:49
PROVIDERS: ATTEND Emergency Medicine
DX: Z20.3 Contact with and (suspected) exposure to rabies (principal); Z23 Encounter for immunization
CPT/HCPCS: 90471; 90675; 96372

== ENCOUNTER → 2021-08-12 | Outpatient (CLI) | payer MEDICARE, OTHER ==
[~2021-08-12] VITALS: Ht 152 cm; Wt 50.0 kg
[~2021-08-12] MED LIST changes: -RABIES VACCINE HUMAN DIPL CELL 1 ML/2.5 UNITS SYR IM ONE; -RABIES VACCINE HUMAN DIPL CELL 1 ML/2.5 UNITS SYR INJ ONE; +REGADENOSON 0.4 MG/5 ML SYR (LEXISCAN) IV ONE
[2021-08-12] MEDS: CATHETER FLUSH 10 ML SYR IV PRN ×2 (07:36→09:17)
[2021-08-12 09:15] VITALS: BP 155/86
--- NOTE | 2021-08-12 12:50 | Cardiology Stress Test Report ---
Stress Test Report Date of Procedure/Referring: Date of Procedure: Aug 12, 2021 PCP Adal Hyde MD Admitting Physician Kailee Moreira MD Indications: HTN Baseline Heart Rate: 70 Baseline Blood Pressure: Blood Pressure Systolic: 155 Blood Pressure Diastolic: 86 Baseline Vitals Vital Signs Date Time Temp Pulse Resp B/P (MAP) Pulse Ox O2 Delivery O2 Flow Rate FiO2 08/12/21 09:15 70 16 155/86 (109) 98 Room Air Baseline EKG: Baseline EKG: NSR Summary After explaining the procedure to the patient, she signed a consent and then brought to the stress nuclear laboratory. Patient received 0.4 mg Lexiscan for stress test, ECG, heart rate and blood pressure were monitored continuously. Resting and stress dose of radio tracer were injected, imaging was acquired and reviewed in short axis, horizontal long axis and vertical long axis views. TID: 1.13 SSS: 4 SDS: 3 EF: 65 1. Patient tolerated Lexiscan well 2. No significant ischemia or infarction on SPECT images 3. Normal left ventricular size, EF 65% ADAL HYDE MD Aug 12, 2021 12:50
== END ==
LOC: CARD 08:30
PROVIDERS: ATTEND Internal Medicine Cardiovascular Disease
DX: I10 Essential (primary) hypertension (principal); I25.10 Atherosclerotic heart disease of native coronary artery without angina pectoris
CPT/HCPCS: 78452; 93017; A9502

== ENCOUNTER → 2022-04-01 | Outpatient (CLI) | payer MEDICARE, OTHER ==
[~2022-04-01] MED LIST changes: -LISI-729; +LISI5TAB20; -REGADENOSON 0.4 MG/5 ML SYR (LEXISCAN) IV ONE
--- NOTE | 2022-04-01 12:09 | Diagnostic Imaging Report ---
INDICATION: Routine screening. Comparison is made with prior mammogram from 01/25/2015 and 12/19/2010. 2-D and 3-D bilateral screening mammography was performed with CAD. CAD is utilized. The current study was also evaluated with a Computer Aided Detection (CAD) system. Both breasts remain heterogeneously dense, limiting the sensitivity of mammography. Cardiac loop recorder overlies the medial left breast soft tissues. No mass or malignant-appearing microcalcifications are seen. Axillae are unremarkable. IMPRESSION: BI-RADS Category 1 No mammographic features suspicious for malignancy are identified. ACR BI-RADS Category 1: Negative. Result letter will be mailed to the patient. Note: At least 10% of breast cancer is not imaged by mammography. Dictated by: Dictated on workstation # [id number]
--- NOTE | 2022-04-01 15:31 | Diagnostic Imaging Report ---
INDICATION: 81-year-old asymptomatic postmenopausal female COMPARISON: 01/25/2015 FINDINGS: AP Spine L1-L4: [BMD (g/cm2): .909] [T-Score: -2.4] [Z-Score: -0.1] [BMD Previous: 0.867] [BMD % Change: 4.8] LT Hip Neck: [BMD (g/cm2): 0.771] [T-Score: -1.9] [Z-Score: 0.6] LT Hip Total: [BMD (g/cm2):0.833] [T-Score:-1.4] [Z-Score: 1.0] [BMD Previous: 0.835] [BMD % Change: -0.2] RT Hip Neck: [BMD (g/cm2):0.769] [T-Score:-1.9] [Z-Score:0.6] RT Hip Total: [BMD (g/cm2):0.789] [T-score:-1.7] [Z-Score:0.6] [BMD Previous:0.794] [BMD % Change:-0.6] *Indicates significant change from prior examination based on 95% confidence level. World Health Organization criteria for BMD interpretation classify patients as Normal (T-score at or above -1.0), Osteopenic (T-score between -1.0 and -2.5) or Osteoporotic (T-score at or below -2.5). LIMITATIONS AND MODIFICATION: None. FRACTURE RISK (FRAX SCORE): The ten year probability of (%): Major Osteoporotic Fracture: [14.1] Hip Fracture: [4.4] IMPRESSION: 1. Osteopenia (Low bone mass). 2. No significant change in bone mineral density since prior examination. 3. See below National Osteoporosis Foundation guidelines on when to potentially initiate pharmacologic therapy. Based on the National Osteoporosis Foundation Guidelines, pharmacologic treatment should be initiated in any of the following, unless clinical conditions suggest otherwise: * Any patient with prior fragility fracture of the hip or vertebrae. A spine fracture indicates 5X risk for subsequent spine fracture and 2X risk for subsequent hip fracture. * Osteoporosis (T-score <-2.5). * Postmenopausal women and men age 50 and older with low bone mass/osteopenia (T-score between -1.0 and -2.5) by DXA and 10-year major osteoporotic fracture greater than 20% or a 10-year probability of hip fracture greater than 3%. These fracture risks are supplied above in the FRAX score, if applicable. * Clinician judgement and/or patient preferences may indicate treatment for people with 10-year fracture probabilities above or below these levels. Dictated by: Dictated on workstation # [id number]
== END ==
LOC: RAD 10:23
PROVIDERS: ATTEND Family Medicine
DX: Z12.31 Encounter for screening mammogram for malignant neoplasm of breast (principal); Z78.0 Asymptomatic menopausal state; M85.80 Other specified disorders of bone density and structure, unspecified site
CPT/HCPCS: 77063; 77067; 77080

== ENCOUNTER 2022-05-28 06:26 | Outpatient (CLI) | payer MEDICARE, OTHER ==
[~2022-05-28] VITALS: Ht 152.4 cm; Wt 52.6 kg
[2022-05-28] MEDS ORDERED: FLUO20CA48 PO (09:32)
[2022-05-28] MEDS ORDERED: CARV6.252 PO (09:32)
[2022-05-28] MEDS ORDERED: LEVO88TA68 PO (09:32)
[2022-05-28] MEDS ORDERED: FAMO-119 PO (09:32)
[2022-05-28] MEDS ORDERED: LACT1.5C PO (09:32)
== END 2022-05-28 09:35 | disposition home or self-care (01) ==
LOC: PREOP 06:26
PROVIDERS: ATTEND Surgery
DX: Z01.818 Encounter for other preprocedural examination (principal)

== ENCOUNTER 2022-05-30 10:55 | Day surgery (SDC) | payer MEDICARE, OTHER ==
[~2022-05-30] VITALS: Ht 152 cm; Wt 52.6 kg
[~2022-05-30 10:55] MED LIST changes: +CARV6.252 PO; +FLUO20CA48 PO; +LACT1.5C PO; +LEVO88TA68 PO
[2022-05-30] MEDS ORDERED: LACTATED RINGERS 1,000 ML IV STA (11:00)
[2022-05-30] MEDS ORDERED: HURRICAINE EXT TUBE (BENZOCAINE) XX PRN (11:00)
[2022-05-30] MEDS ORDERED: LIDOCAINE JELLY 2% 6 ML SYRINGE MM PRN (11:00)
[2022-05-30 11:10] VITALS: BP 119/63
[2022-05-30] MEDS ORDERED: PROPOFOL INJECTION 50 ML IV ONE (11:45)
--- NOTE | 2022-05-30 11:58 | Progress Note-Pre Operative ---
Pre-Operative Progress Note H&P Reviewed The H&P was reviewed, patient examined and no changes noted. Date Seen by Provider: May 30, 2022 Time Seen by Provider: 11:00 Date H&P Reviewed: May 30, 2022 Time H&P Reviewed: 11:00 Pre-Operative Diagnosis: coffee ground emesis, dark tarry stools DAREK MEJIA MD May 30, 2022 11:58
[2022-05-30] MEDS ORDERED: ONDANSETRON 4 MG (ZOFRAN) ORAL DISSOLVE TAB PO PRN (12:00)
[2022-05-30] MEDS ORDERED: ONDANSETRON 4 MG/2 ML (SDV) Z0FRAN IVP PRN (12:00)
[2022-05-30] MEDS ORDERED: OMEP40CA6 PO (12:00)
--- NOTE | 2022-05-30 12:01 | Discharge Inst-Surgical ---
D/C Lap Instructions-JACKIE Follow Up Activity as tolerated High Fiber Diet 25g or more per day Avoid Alcohol, Caffeine, Spicy Lefors and Acid foods. Drink 64 fluid oz or more of fluids per day. Symptoms to Report: Fever over 101 degree F, Nausea/Vomiting If any problems/questions: Contact your physician or go to Emergency Room DAREK MEJIA MD May 30, 2022 12:01
[2022-05-30 12:50] VITALS: BP 94/55
[2022-05-30 12:55] VITALS: BP 95/52
[2022-05-30 13:00] VITALS: BP 111/61
--- NOTE | 2022-05-30 13:09 | Progress Note-Post Operative ---
Post-Operative Progess Note Surgeon (s)/Benefits Consultant (s) Surgeon DAREK MEJIA MD Benefits Consultant: none Pre-Operative Diagnosis coffee ground emesis, dark tarry stools Post-Operative Diagnosis reflux esophagitis(grade B), small HH(1.5cm), type 1 gastric ulcer with overlying fibrin clot, no active bleed. mild chronic stage 2 ext and int hemorrhoids. Procedure & Operative Findings Date of Procedure 05/30/22 Procedure Performed/Findings EGD with bx. Colonoscopy. Anesthesia Type mac Estimated Blood Loss Estimated blood loss (mL): minimal Specimens/Packing Specimens Removed ge jxn, ulcer, antrum DAREK MEJIA MD May 30, 2022 13:09
--- NOTE | 2022-05-30 13:24 | Anesthesia-General Post-Op ---
MAC Patient Condition Mental Status/LOC: Same as Preop Cardiovascular: Satisfactory Nausea/Vomiting: Absent Respiratory: Satisfactory Pain: Controlled Complications: Absent Post Op Complications Complications None Follow Up Care/Instructions Patient Instructions None needed. Anesthesiology Discharge Order Discharge Order Patient is doing well, no complaints, stable vital signs, no apparent adverse anesthesia problems. No complications reported per nursing. IRENA LOPEZ CRNA May 30, 2022 13:24
[2022-05-30 13:30] VITALS: BP 127/70
--- NOTE | 2022-05-30 22:28 | OPERATIVE REPORT ---
DATE OF SERVICE: 05/30/2022 ATTENDING PRIMARY CARE PHYSICIAN: Dr. Kailee Moreira. PREOPERATIVE DIAGNOSIS: Hematemesis, dark tarry stools. POSTOPERATIVE DIAGNOSES: Reflux esophagitis, [place] grade B, small hiatal hernia 1.5 cm in size, moderate gastritis with a type 1 gastric ulcer with an overlying fibrin clot, no active bleed. Chronic stage II external and internal hemorrhoids. PROCEDURE: EGD with biopsy, colonoscopy. SURGEON: Darek Mejia MD. ANESTHESIA: Monitored anesthesia care. ESTIMATED BLOOD LOSS: Minimal. FINDINGS: Same as postoperative diagnosis. DISPOSITION: The patient tolerated the procedure well. INDICATIONS: The patient is an 81-year-old female known to us. She was initially seen in 2012 for crampy abdominal pain with radiation towards the back and neck. 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 In 2013. She did have some issues with gastroesophageal reflux disease and was also in need of a colonoscopy. We did an EGD and colonoscopy at that time. No bleeding sources identified. She reports approximately 1 week ago, she developed dark tarry stools and also had an episode of emesis and noticed coffee-ground material within it. DESCRIPTION OF PROCEDURE: The patient was brought to the endoscopy suite, laid in the left lateral decubitus position. After adequate IV pain and sedative medications and monitored anesthesia care, the mouthpiece was applied. The endoscope was placed in the mouth, visualizing the pharynx and hypopharyngeal region. Vocal cords, epiglottis and vallecula identified and appeared to be normal. Endoscope was then gently intubated into the esophageal opening andesophagus insufflated. The endoscope was then advanced through the first, second and third portion of esophagus at the level of the GE junction, reflux esophagitis, [place] grade B identified. No ulcers or strictures identified in the region. A biopsy was taken of the GE junction with forceps with visualization of good hemostasis. The endoscope was then advanced into the stomach and endoscope retroflexed, visualizing a small hiatal hernia approximately 1.5 cm in size. A gastric ulcer along the incision an angularis along the lesser curvature, which was less than 1 cm in size was identified with an overlying fibrin clot, no active bleeding identified. A biopsy was taken of the ulcer with visualization of good hemostasis. Endoscope was then advanced into the antrum where a biopsy was taken to rule out H. pylori. The endoscope was then advanced to the pylorus into the first and second portions of the duodenum, which appeared normal. The endoscope was slowly withdrawn while taking a second look and suctioning of residual air with no additional findings. A digital rectal examination was performed, which revealed chronic stage II external and internal hemorrhoids, not actively edematous nor inflamed and no bleeding. Normal sphincter tone was felt and there were no palpable masses. The endoscope was then intubated into the anus and rectum gently insufflated. The endoscope was then advanced through the valves of Luz of the rectum with no polyps or any neoplasms identified. The endoscope was then advanced through the sigmoid colon where no diverticulosis identified. We then proceeded through the remainder of the descending, transverse and ascending colon to the cecum, which were normal. There were no polyps or any neoplasms identified as well as no active bleeding sources. The endoscope was then slowly withdrawn while taking a second look and suctioning of residual air with no additional findings. The patient tolerated the procedure well. The likely cause of her cough, emesis as well as dark tarry stools was the type 1 gastric ulcer, which we will treat changing her Pepcid to omeprazole 40 mg daily as well as Carafate 1 gram q.i.d. for the next two weeks. We will also recommend that she avoid taking too many nonsteroidal anti-inflammatories as well as to avoid caffeinated beverages, spicy, greasy and acidic foods and take in small and more frequent meals. Job ID: [id number] DocumentID: [id number] Dictated Date: 05/30/2022 13:02:52 Guest Experience Captain Date: 05/30/2022 22:28:24 Dictated By: DAREK MEJIA MD [facility]
== END 2022-05-30 13:45 | disposition home or self-care (01) ==
LOC: ENDO 10:55
PROVIDERS: ATTEND Surgery
DX: K21.00 Gastro-esophageal reflux disease with esophagitis, without bleeding (principal); K44.9 Diaphragmatic hernia without obstruction or gangrene; K29.71 Gastritis, unspecified, with bleeding; K25.4 Chronic or unspecified gastric ulcer with hemorrhage; K64.1 Second degree hemorrhoids; K31.89 Other diseases of stomach and duodenum; K22.89 Other specified disease of esophagus; K92.0 Hematemesis
CPT/HCPCS: 88305

== ENCOUNTER 2022-12-05 13:54 | Outpatient (RCR) | payer MEDICARE, OTHER ==
[~2022-12-05 13:54] MED LIST changes: +OMEP40CA6 PO
== END 2023-01-08 | disposition home or self-care (01) ==
LOC: CR3 13:54
PROVIDERS: ATTEND Family Medicine
DX: Z29.8 Encounter for other specified prophylactic measures (principal)

== ENCOUNTER → 2023-03-26 | Outpatient (CLI) | payer MEDICARE, OTHER ==
[~2023-03-26] MED LIST changes: -OFLO5DRO3 OU; +OFLO5DRO8 OU
--- NOTE | 2023-03-26 11:05 | Diagnostic Imaging Report ---
INDICATION: Left breast discomfort. 3-D diagnostic bilateral mammography is performed with marker noting site of discomfort in the inferior left breast. COMPARISON: 04/01/2022. There is mild to moderate breast parenchymal density bilaterally. Cardiac loop recorder remains in stable position. There is no evidence of dominant mass or suspicious calcification. No adverse change is seen. IMPRESSION: Category 2, benign findings. Continued physical examination and annual mammographic follow-up are recommended. ACR BI-RADS Category 2: Benign findings. Result letter will be mailed to the patient. Note: At least 10% of breast cancer is not imaged by mammography. Dictated by: Dictated on workstation # [id number]
--- NOTE | 2023-03-26 11:09 | Diagnostic Imaging Report ---
INDICATION: Left breast discomfort. Focused ultrasonography is performed in the inferior left breast at the site of patient's discomfort without identification of cystic or solid lesion. There is no evidence of abnormal shadowing or significant architectural distortion. IMPRESSION: Category 2, benign findings. Continued physical examination and annual mammographic follow-up are recommended. ACR BI-RADS Category 2: Benign findings. Result letter will be mailed to the patient. Note: At least 10% of breast cancer is not imaged by mammography. Dictated by: Dictated on workstation # [id number]
== END ==
LOC: RAD 09:40
PROVIDERS: ATTEND Nurse Practitioner Family
DX: N64.89 Other specified disorders of breast (principal); N64.4 Mastodynia
CPT/HCPCS: 76642; 77066; G0279; 77062